=== PATIENT | male | born 1945 | race Caucasian/White ===

== ENCOUNTER → 2016-04-06 | Outpatient (CLI) | payer MEDICARE, OTHER ==
[~2016-04-06] MED LIST: AC500T; ALB0.5V IH; ALBU2.5V4 NEB; ALBU4TAB6 PO; ALBU8.5H2 IH; ALBU8.5H2 INH; ALEN40TA PO; AMLO1CAP4 PO; AMLO1CAP5 PO; ATOR20TA66 PO; CARV12.52; CHOL20002 PO; CLCX200C PO; DOXY100C2 PO; DULO20CA18 PO; FERR-57 PO; FERR324T4 PO; FLUOXETINE HCL; FLUT1AER INH; FNST5T PO; HCT25T; HYDR-2890 PO; HYDR-2962 PO; HYDR-753 PO; HYPR15DR6 OU; INHA1INH8 MC; LANOXIN; LEVO750T9 PO; METH2.5T PO; MILK OF MAG; MIRT15TA6 PO; MULT-974 PO; MULT1TAB5 PO; NEBU1KIT3 MC; NF-ESOM40C PO; OMEP20CA12 PO; OMEP40CA36 PO; OMNARIS NASAL; OXYC-12 PO; PARO20TA57 PO; PRD20T PO; PRED10TA22 PO; SILVADENE; SULF1TAB38 PO; TERA2CAP4 PO; TOLTA4 PO; TRAM50TA2 PO; TRAZODONE; TRZS2T PO; WRF3T; XANAX
--- OUTSIDE RECORDS SUMMARY | 2016-04-06 17:04 | XMS REPORT | Continuity of Care Document ---
Author Author [facility] Organization [facility] Address Unknown Phone Unavailable Care Team Providers Care Asl Interpreter Name Role Phone Lupe Manjit PCP [phone] Source Comments Some departments are not documenting in the electronic medical record. If you do not see the information that you expected, contact Release of Information in the Health Information Management department at [phone] for further assistance in locating additional records.[facility] Active Allergies and Adverse Reactions Allergen Noted Date Severity Reactions Comments Dust 11/16/2012 UNKNOWN Xanax 11/16/2012 HALLUCINATIONS Current Medications Prescription Sig. Disp. Refills Start End Date Status Date HYDROcodone-acetaminophen Take 1 Tab by mouth every Active (+) (VICODIN) 10-325 mg 6 hours as needed. tablet amLODIPine (NORVASC) 5 mg Take 5 mg by mouth daily. Active tablet benazepril (LOTENSIN) 20 Take 20 mg by mouth Active mg tablet daily. terazosin (HYTRIN) 2 mg Take 2 mg by mouth twice Active capsule daily. omeprazole DR(+) Take 40 mg by mouth twice Active (PRILOSEC) 40 mg capsule daily. alendronate (FOSAMAX) 70 Take 70 mg by mouth every Active mg tablet 7 days. MULTIVITAMIN PO Take 2 Tabs by mouth Active twice daily. other medication Eye drops, 2 drops to Active each eyes daily folic acid (FOLVITE) 1 mg Take 1 Tab by mouth 90 Tab 1 12/21/19 Active tablet daily. 13 methotrexate 2.5 mg Take 8 Tabs by mouth 32 Tab 5 02/22/20 Active tablet every 7 days. Take only 13 10mg (4 tabs) first week only, if tolerated increase to 15mg daily. Active Problems Problem Noted Date OA (osteoarthritis) 12/21/2012 Rheumatoid arthritis(714.0) 12/21/2012 Encounter for long-term (current) use of other medications 12/21/2012 Chronic fatigue 11/16/2012 Osteoporosis with fracture 11/16/2012 Overview: Compression fracture in back. Polyarthralgia 11/16/2012 Insomnia 11/16/2012 Hypertension 11/16/2012 Elbow pain 11/16/2012 Hx of seasonal allergies 11/16/2012 Cataract 11/16/2012 Hiatal hernia 11/16/2012 Muscle cramps at night 11/16/2012 Immunizations Name Dates Previously Given Next Due Flu Vaccine Trivalent=>3 02/21/2013 Yo (Preservative Free) Social History Tobacco Use Types Packs/Day Years Used Date Former Smoker Cigarettes 2 Quit: 04/03/1969 Smokeless Tobacco: Never Used Alcohol Use Drinks/Week oz/Week Comments Yes occ Last Filed Vital Signs Vital Sign Reading Time Taken Blood Pressure 115/76 04/04/2013 10:08 AM PAD EXTRACTION TENDER Pulse 104 04/04/2013 10:51 AM PAD EXTRACTION TENDER Temperature 36.6 C (97.8 F) 04/04/2013 10:08 AM PAD EXTRACTION TENDER Respiratory Rate 18 04/04/2013 10:08 AM PAD EXTRACTION TENDER Height 1.796 m (5' 10.7") 04/04/2013 10:08 AM PAD EXTRACTION TENDER Weight 98.068 kg (216 lb 3.2 oz) 04/04/2013 10:08 AM PAD EXTRACTION TENDER Body Mass Index 30.4 04/04/2013 10:08 AM PAD EXTRACTION TENDER Oxygen Saturation - - Plan of Care Health Maintenance Due Date Last Done Comments Physical (Comprehensive) 1952 Exam Pertussis Vaccine 1956 Tetanus Vaccine 1962 Colorectal Cancer 1995 Screening Shingles Vaccine 2005 Prevnar/Pneumovax (#1) 2010 Influenza Vaccine 12/03/2015 02/21/2013 Hepatitis C Screening Completed 11/16/2012 Results from Last 3 Months Not on file
[2016-04-06 17:28] LABS: BASOPHILS % (AUTO) 0 % (0-10); EOSINOPHILS # (AUTO) 0.2 10^3/uL (0.0-0.3); EOSINOPHILS % (AUTO) 2 % (0-10); LYMPHOCYTES # (AUTO) 2.5 X 10^3 (1.0-4.0); LYMPHOCYTES % (AUTO) 25 % (12-44); MEAN CORPUSCULAR HEMOGLOBIN 28 PG (25-34); MEAN CORPUSCULAR HGB CONC 33 G/DL (32-36); MEAN CORPUSCULAR VOLUME 86 FL (80-99); MEAN PLATELET VOLUME 9.4 FL (7.4-10.4); MONOCYTES % (AUTO) 10 % (0-12); NEUTROPHILS # (AUTO) 6.2 X 10^3 (1.8-7.8); NEUTROPHILS % (AUTO) 63 % (42-75); PLATELET COUNT 323 10^3/uL (130-400); RED BLOOD COUNT 4.47 10^6/uL (4.35-5.85); RED CELL DISTRIBUTION WIDTH 15.3 % (10.0-14.5); WHITE BLOOD COUNT 9.9 10^3/uL (4.3-11.0)
--- NOTE | 2016-04-06 17:58 | Diagnostic Imaging Report ---
INDICATION: Shortness of breath COMPARISON: 04/01/2016 FINDINGS: Two views of the chest are obtained. Heart size is normal. The pulmonary vessels appear unremarkable. There is no pneumothorax, mediastinal widening or pleural fluid suspected. There is a hiatal hernia which is similar to the prior study. There is some minimal atelectasis in the left lung base. The lungs are otherwise clear. The osseous structures appear unremarkable. IMPRESSION: Hiatal hernia with minimal left basilar atelectasis. No additional significant abnormality is demonstrated. Dictated by: Dictated on workstation # [id number]
== END ==
LOC: RAD 17:00
PROVIDERS: ATTEND Nurse Practitioner Family
DX: R05 Cough (principal); R06.02 Shortness of breath
CPT/HCPCS: 36415; 71020; 85025

== ENCOUNTER 2016-12-25 17:47 | Inpatient (IN) | payer MEDICARE, OTHER ==
[~2016-12-25] VITALS: Ht 185.4 cm; Wt 87.1 kg
--- OUTSIDE RECORDS SUMMARY | 2016-12-25 17:52 | XMS REPORT | Clinical Summary ---
Author Author [facility] Organization [facility] Address Unknown Phone Unavailable Care Team Providers Care Briar Shop Supervisor Name Role Phone PCP Unavailable Source Comments Some departments are not documenting in the electronic medical record. If you do not see the information that you expected, contact Release of Information in the Health Information Management department at [phone] for further assistance in locating additional records.[facility] Allergies Active Allergy Reactions Severity Noted Date Comments Dust UNKNOWN 11/16/2012 Alprazolam HALLUCINATIONS 11/16/2012 Current Medications Prescription Sig. Disp. Refills Start [...] by mouth 90 Tab 1 12/21/19 Active tabletIndications: daily. 13 Rheumatoid arthritis(714.0) methotrexate 2.5 mg Take 8 Tabs by mouth 32 Tab 5 02/22/20 Active tabletIndications: every 7 days. Take only 13 Rheumatoid 10mg (4 tabs) first week arthritis(714.0) only, if tolerated increase to 15mg daily. [...] Flu Vaccine Trivalent=>3 02/21/2013 Yo (Preservative Free) Family History Medical History Relation Name Comments Arthritis Brother Arthritis Father Arthritis Mother Arthritis Sister Arthritis Son Arthritis Son Relation Name Status Comments Brother Father Mother Sister Son Son Social History Tobacco Use Types Packs/Day Years Used Date Former Smoker Cigarettes 2 Quit: 04/03/1969 Smokeless Tobacco: Never Used Alcohol Use Drinks/Week oz/Week Comments Yes occ Sex Assigned at Date Recorded Not on file Last Filed Vital Signs Vital Sign Reading Time Taken Blood Pressure 115/76 04/04/2013 10:08 AM RADIOLOGY EQUIPMENT SERVICER Pulse 104 04/04/2013 10:51 AM RADIOLOGY EQUIPMENT SERVICER Temperature 36.6 C (97.8 F) 04/04/2013 10:08 AM RADIOLOGY EQUIPMENT SERVICER Respiratory Rate 18 04/04/2013 10:08 AM RADIOLOGY EQUIPMENT SERVICER Oxygen Saturation - - Inhaled Oxygen - - Concentration Weight 98.1 kg (216 lb 3.2 oz) 04/04/2013 10:08 AM RADIOLOGY EQUIPMENT SERVICER Height 179.6 cm (5' 10.7") 04/04/2013 10:08 AM RADIOLOGY EQUIPMENT SERVICER Body Mass Index 30.41 04/04/2013 10:08 AM RADIOLOGY EQUIPMENT SERVICER Plan of Treatment Health Maintenance Due Date Last Done Comments PHYSICAL (COMPREHENSIVE) 1952 EXAM PERTUSSIS VACCINE 1956 TETANUS VACCINE 1962 COLORECTAL CANCER 1995 SCREENING SHINGLES VACCINE 2005 ABDOMINAL AORTIC ANEURYSM 2010 SCREENING PREVNAR/PNEUMOVAX (#1) 2010 INFLUENZA VACCINE 01/01/2017 02/21/2013 HEPATITIS C SCREENING Completed 11/16/2012 Results Not on filefrom Last 3 Months
[2016-12-25] MEDS ORDERED: NS IV 1000 ML 1,000 ML IV ONE ×2 (18:19→20:57)
[2016-12-25 18:27] LABS: BASOPHILS # (AUTO) 0.1 10^3/uL (0.0-0.1); BASOPHILS % (AUTO) 0 % (0-10); EOSINOPHILS % (AUTO) 0 % (0-10); LYMPHOCYTES # (AUTO) 1.1 X 10^3 (1.0-4.0); LYMPHOCYTES % (AUTO) 8 % (12-44); MEAN CORPUSCULAR HEMOGLOBIN 28 PG (25-34); MEAN CORPUSCULAR HGB CONC 32 G/DL (32-36); MEAN CORPUSCULAR VOLUME 88 FL (80-99); MONOCYTES # (AUTO) 1.6 X 10^3 (0.0-1.0); MONOCYTES % (AUTO) 11 % (0-12); NEUTROPHILS # (AUTO) 11.4 X 10^3 (1.8-7.8); NEUTROPHILS % (AUTO) 80 % (42-75); PLATELET COUNT 268 10^3/uL (130-400); RED BLOOD COUNT 4.62 10^6/uL (4.35-5.85); RED CELL DISTRIBUTION WIDTH 14.9 % (10.0-14.5); WHITE BLOOD COUNT 14.2 10^3/uL (4.3-11.0)
--- NOTE | 2016-12-25 18:29 | ED GI ---
General Chief Complaint: Abdominal/GI Problems Stated Complaint: PASSING BLOOD Nursing Triage Note: LEFT SIDED ABD PAIN WITH NAUSEA AND PASSING BLOOD IN HIS STOOL SINCE MON. HX OF DIVERTICULITIS. Sepsis Screen: No Definite Risk Source of Information: Patient Exam Limitations: No Limitations History of Present Illness Time Seen By Provider: 18:09 Initial Comments Here with abdominal pain, nausea and passing blood in his stool since Monday. He does have history of diverticulitis. He is on Cefdinir and Flagyl. He is actually starting to get a little better but then started to get nauseated and is unable to take his medicines. He has continuation of abdominal pain. States he hasn't ate or drank very much since the start of this and he is a little concerns related to that. The bloody stool has decreased from bright red to very limited amount. He did have a little bit with his stool today right before coming. No blood in his vomit. Timing/Duration: 3-4 Days Severity/Quality: Moderate, Aching, Cramping Location: LUQ, LLQ, Generalized Abdomen Activities at Onset: None Modifying Factors: Worsens With Defecating, Worsens With Eating Associated Symptoms: No Chest Pain, No Fever/Chills, Nausea/Vomiting, No Shortness of Air, No Weakness Allergies and Home Medications Allergies Coded Allergies: diphenhydramine (Verified Allergy, Severe, 12/25/16) alprazolam (Verified Adverse Reaction, Intermediate, MENTAL MOOD CHANGE, 03/31/16) SIG OTHER SAID THE PATIENT GETS COMBATIVE,ANGRY AND VIOLENT. SHE STATES THAT HIS BEHAVIOR IS ODD AND UNLIKE HIM Home Medications Albuterol 8.5 Gm Hfa.aer.ad, 2 PUFF INH QID PRN for CONGESTION, (Reported) Albuterol Sulfate 2.5 Mg/3 Ml Vial.neb, 2.5 MG NEB Q4H PRN for SHORTNESS OF BREATH, #90 Prescribed by: ANTONIO BERNSTEIN on 04/01/16 1154 Alendronate Sodium 40 Mg Tablet, 70 MG PO We, (Reported) Amlodipine Besylate/Benazepril 1 Each Capsule, 1 CAP PO DAILY, (Reported) Atorvastatin 20 Mg Tablet, 10 MG PO HS, (Reported) TAKES 1/2 (20MG) TABLET Cholecalciferol (Vitamin D3) 2,000 Unit Capsule, 2,000 UNIT PO DAILY, (Reported) Duloxetine HCl 20 Mg Capsule.dr, 20 MG PO DAILY, (Reported) Fluticasone/Vilanterol 1 Each Blst.w.dev, 1 PUFF INH DAILY, (Reported) Hydrocodone/Acetaminophen 1 Each Tablet, 1 TAB PO Q4H PRN for PAIN, (Reported) Hypromellose 15 Ml Drops, 1 DROP OU QID PRN for DRY EYES, (Reported) Levofloxacin 750 Mg Tablet, 750 MG PO DAILY, #5 Prescribed by: ANTONIO BERNSTEIN on 04/01/16 1154 Methotrexate Sodium 2.5 Mg Tablet, 20 MG PO , (Reported) TAKES 8 (2.5MG) TABLETS Methotrexate Sodium 2.5 Mg Tablet, 20 MG PO WEEK, #32 Prescribed by: ANTONIO BERNSTEIN on 04/01/16 1154 Multivitamin 1 Each Tablet, 2 TAB PO DAILY, (Reported) Omeprazole 20 Mg Capsule.dr, 40 MG PO DAILY, (Reported) TAKES 2 (20MG) CAPSULES Prednisone 10 Mg Tab.ds.pk, 10 MG PO DAILY, #21 Take 6 tabs(60mg)daily,decrease by 1 tab(10MG)daily. Prescribed by: ANTONIO BERNSTEIN on 04/01/16 1154 Terazosin HCl 2 Mg Capsule, 4 MG PO DAILY, #60 TAKES 2 (2MG) CAPSULES Prescribed by: ANTONIO BERNSTEIN on 04/01/16 1154 Tramadol HCl 50 Mg Tablet, 50 MG PO TID PRN for PAIN, (Reported) Review of Systems Constitutional: see HPI, No chills, No fever EENTM: No Symptoms Reported Respiratory: No Symptoms Reported Cardiovascular: No Symptoms Reported Gastrointestinal: See HPI, Abdominal Pain, Diarrhea, Denies Nausea, Rectal Bleeding, Vomiting Genitourinary: No Symptoms Reported Musculoskeletal: no symptoms reported Skin: no symptoms reported All Other Systems Reviewed Negative Unless Noted: Yes Past Xbquwdm-Rxrecf-Hxnblx Hx Patient Social History Alcohol Use: Occasionally Uses Alcohol Beverage of Choice: Beer Recreational Drug Use: No Smoking Status: Never a Smoker Former Smoker, Quit: Apr 03, 1994 Recent Foreign Travel: No Contact w/Someone Who Travel: No Recent Infectious Disease Expo: No Recent Hopitalizations: No Immunizations Up To Date Date of Pneumonia Vaccine: Mar 31, 2014 Seasonal Allergies Seasonal Allergies: Yes Surgeries Surgeries: Abdominal, Bowel Surgery Respiratory History of Respiratory Disorde: Yes Respiratory Disorders: Asthma, COPD Currently Using CPAP: No Currently Using BIPAP: No Cardiovascular History of Cardiac Disorders: Yes Cardiac Disorders: High Cholesterol, Hypertension Reproductive System Hx Reproductive Disorders: No Sexually Transmitted Disease: No HIV/AIDS: No Genitourinary History of Genitourinary Disor: Yes Genitourinary Disorders: Benign Prostatic Hyperpl Gastrointestinal History of Gastrointestinal Di: Yes Gastrointestinal Disorders: Gastroesophageal Reflux Musculoskeletal History of Musculoskeletal Dis: Yes Musculoskeletal Disorders: Arthritis, Rheumatoid Arthritis Endocrine History of Endocrine Disorders: No HEENT History of HEENT Disorders: Yes HEENT Disorders: Cataract Hearing Impairment: Denies Psychosocial Behavioral Health Disorders: Anxiety, PTSD, Depression Reviewed Nursing Assessment Reviewed/Agree w Nursing PMH: Yes Family Medical History Significant Family History: No Pertinent Family Hx Physical Exam Vital Signs VS - Last 72 Hours, by Label 12/25/16 17:55 Temp 98.7 Pulse 103 Resp 18 B/P (MAP) 107/77 Pulse Ox 93 O2 Delivery Room Air Capillary Refill : Less Than 3 Seconds General Appearance: WD/WN, no apparent distress HEENT: PERRL/EOMI, pharynx normal Neck: full range of motion, supple Respiratory: lungs clear, normal breath sounds Cardiovascular: no murmur, tachycardia Peripheral Pulses: 2+ Dorsalis Pedis (R), 2+ Left Dors-Pedis (L), 2+ Radial Pulses (R), 2+ Radial Pulses (L) Gastrointestinal: non tender, soft Extremities: non-tender, normal inspection Back: normal inspection, no CVA tenderness, no vertebral tenderness Neurologic/Psychiatric: alert, oriented x 3 Skin: normal color, warm/dry Progress/Results/Core Measures Results/Orders Lab Results Laboratory Tests Test 12/25/16 18:10 Range/Units White Blood Count 14.2 H 4.3-11.0 10^3/uL Red Blood Count 4.62 4.35-5.85 10^6/uL Hemoglobin 13.0 L 13.3-17.7 G/DL Hematocrit 41 40-54 % Mean Corpuscular Volume 88 80-99 FL Mean Corpuscular Hemoglobin 28 25-34 PG Mean Corpuscular Hemoglobin Concent 32 32-36 G/DL Red Cell Distribution Width 14.9 H 10.0-14.5 % Platelet Count 268 130-400 10^3/uL Mean Platelet Volume 10.0 7.4-10.4 FL Neutrophils (%) (Auto) 80 H 42-75 % Lymphocytes (%) (Auto) 8 L 12-44 % Monocytes (%) (Auto) 11 0-12 % Eosinophils (%) (Auto) 0 0-10 % Basophils (%) (Auto) 0 0-10 % Neutrophils # (Auto) 11.4 H 1.8-7.8 X 10^3 Lymphocytes # (Auto) 1.1 1.0-4.0 X 10^3 Monocytes # (Auto) 1.6 H 0.0-1.0 X 10^3 Eosinophils # (Auto) 0.0 0.0-0.3 10^3/uL Basophils # (Auto) 0.1 0.0-0.1 10^3/uL Neutrophils % (Manual) 65 % Lymphocytes % (Manual) 10 % Monocytes % (Manual) 14 % Eosinophils % (Manual) 0 % Basophils % (Manual) 1 % Band Neutrophils 10 % Blood Morphology Comment NORMAL Sodium Level 137 135-145 MMOL/L Potassium Level 4.1 3.6-5.0 MMOL/L Chloride Level 103 98-107 MMOL/L Carbon Dioxide Level 21 21-32 MMOL/L Anion Gap 13 5-14 MMOL/L Blood Urea Nitrogen 25 H 7-18 MG/DL Creatinine 0.92 0.60-1.30 MG/DL Estimat Glomerular Filtration Rate > 60 BUN/Creatinine Ratio 27 Glucose Level 116 H 70-105 MG/DL Calcium Level 8.8 8.5-10.1 MG/DL Total Bilirubin 0.5 0.1-1.0 MG/DL Aspartate Amino Transf (AST/SGOT) 18 5-34 U/L Alanine Aminotransferase (ALT/SGPT) 18 0-55 U/L Alkaline Phosphatase 67 40-136 U/L C-Reactive Protein High Sensitivity 15.44 H 0.00-0.50 MG/DL Total Protein 6.7 6.4-8.2 GM/DL Albumin 3.6 3.2-4.5 GM/DL My Orders Orders - NITESH ROBERTS MD Cbc With Automated Diff (12/25/16 18:19) Comprehensive Metabolic Panel (12/25/16 18:19) Hs C Reactive Protein (12/25/16 18:19) Ua Culture If Indicated (12/25/16 18:19) Saline Lock/Iv-Start (12/25/16 18:19) Ns Iv 1000 Ml (Sodium Chloride 0.9%) (12/25/16 18:19) Type And Screen (12/25/16 18:19) Manual Differential (12/25/16 18:10) Ct Abdomen/Pelvis W (12/25/16 19:26) Iohexol Injection (Omnipaque 350 Mg/Ml 1 (12/25/16 19:30) Ns (Ivpb) (Sodium Chloride 0.9% Ivpb Bag (12/25/16 19:30) Pharmacy Communication (Pharmacy Communi (12/25/16 19:28) Lactic Acid Analyzer (12/25/16 20:57) Blood Culture (12/25/16 20:57) Ns Iv 1000 Ml (Sodium Chloride 0.9%) (12/25/16 20:57) Ceftriaxone Injection (Rocephin Injectio (12/25/16 21:00) Magnesium (12/25/16 21:01) Medications Given in ED Current Medications Medications Dose Ordered Sig/Jennifer Route Start Time Stop Time Status Last Admin Dose Admin Iohexol 100 ml ONCE ONCE IV 12/25/16 19:30 12/25/16 19:37 DC 12/25/16 20:22 100 ML Sodium Chloride 100 ml ONCE ONCE IV 12/25/16 19:30 12/25/16 19:37 DC 12/25/16 20:22 80 ML Sodium Chloride 1,000 ml @ 0 mls/hr Q0M ONCE IV 12/25/16 18:19 12/25/16 18:22 DC 12/25/16 18:29 1,000 MLS/HR Vital Signs/I&O Vital Sign - Last 12Hours 12/25/16 17:55 Temp 98.7 Pulse 103 Resp 18 B/P (MAP) 107/77 Pulse Ox 93 O2 Delivery Room Air Intake and Output 12/26/16 00:00 Intake Total 1000 ml Balance 1000 ml Blood Pressure Mean: 87 Progress Note : Progress Note Seen and evaluated. IV, labs, normal saline 1 L bolus ordered. Anticipate CT. Monitor patient. White count is elevated with elevated CRP. Concerns for more significant process. CT abdomen and pelvis with contrast ordered. 2039: CT results noted. Repeat normal saline 1 L bolus. It would appear that the patient is failing outpatient therapy and inpatient therapy indicated. 2049: Discussed case with Dr. Vincent and she accepts patient for admission, inpatient status. 2052: Discussed case with Dr. Anthony and he accepts patient in consult. Blood cultures and lactic acid drawn. Rocephin 1 g IV after. Discussed findings and concerns with the patient and family who agree with plan. Diagnostic Imaging Diagonstic Imaging: CT Plain Films/CT/US/NM/MRI: abdomen, pelvis Comments VIA [facility]. [place], [place] NAME: SOLITARIO CHEW [facility] REC#: [id number] PT STATUS: REG ER : 1945 PHYSICIAN: NITESH ROBERTS MD ADMIT DATE: 12/25/16/ER Draft Date of Exam:12/25/16 CT ABDOMEN/PELVIS W PROCEDURE: CT abdomen and pelvis with contrast. TECHNIQUE: Multiple contiguous axial images were obtained through the abdomen and pelvis after administration of intravenous contrast. DATE: December 25, 2016. COMPARISON: Abdominal radiographs November 18, 2011. CT abdomen and pelvis, May 18, 2010. INDICATION: 71-year-old male, diarrhea. Passing blood for three days. FINDINGS: There is minimal atelectasis in the left lower lobe. The heart is not enlarged. There is no identified pericardial effusion. The liver is normal in size and contour. There is reduced attenuation in the liver subadjacent to the gallbladder fossa on axial image 23. This area measures approximately 5.1 x 1.9 cm in size. There is no otherwise identified potential liver lesion. The main, right and left portal veins are grossly patent. The gallbladder is unremarkable. There is no intrahepatic or extrahepatic bile duct dilation. There is mild prominence of the main pancreatic duct in the region of the pancreatic head and body of the pancreas. There is no peripancreatic fluid or inflammatory stranding. There is no identified pancreatic mass. The spleen is not enlarged. There is an accessory splenule on axial image 19. The adrenal glands are unremarkable. There is a low-attenuation right renal lesion on axial image 26 compatible with benign cysts which measures 2.9 cm in size. There are subcentimeter low-attenuation right renal lesions too small to characterize. The urinary collecting systems are not distended. There is no identified renal or ureteral stone. The urinary bladder is unremarkable in appearance. There are sutures at the level of the proximal to mid sigmoid colon. There is marked abnormal wall thickening of the entire colon. There is abnormal wall thickening and mucosal enhancement of the terminal ileum. There is diverticulosis at the level of the proximal sigmoid colon. There is very prominent inflammatory stranding along the entire colon. There is a small to moderate-sized hiatal hernia. The intestinal tract is not grossly distended. There is rectus muscle diastases. There is no identified free intraperitoneal air. There is no drainable fluid collection. There is no large volume free pelvic fluid. There are atherosclerotic calcifications. There is no identified abnormally enlarged lymph node in the abdomen or pelvis which meets CT size criteria for adenopathy. There are multilevel degenerative changes of the spine. There is a lumbar levoscoliosis. There is no identified acute bony abnormality. IMPRESSION: CT ABDOMEN AND PELVIS: 1. Extensive abnormal wall thickening and inflammatory stranding along the entire colon. No identified pneumatosis, free intraperitoneal air or drainable fluid collection. Differential diagnostic considerations would primarily include an infectious or potentially inflammatory colitis. 2. Area of low attenuation subjacent to the gallbladder fossa within the liver which is not specific. This potentially could relate to an area of focal fat. This is not definitely seen on comparison CT abdomen. MRI abdomen with and without contrast including in and out of phase images may be helpful for further characterization. Dictated on workstation # [id number] Dict: 12/25/162018 Trans: 12/25/162030 [facility] [id number] Interpreted by: DARREN NOBLE MD Electronically signed by: Departure Communication (Admissions) Time/Spoke to Admitting Phy: 20:50 Time/Spoke to Consulting Phy: 20:53 Impression Impression: Primary Impression: Colitis Additional Impression: Diverticulitis Qualified Codes: K57.33 - Diverticulitis of large intestine without perforation or abscess with bleeding Disposition: ADMITTED INPATIENT Condition: Stable Admissions Decision to Admit Reason: Admit from ER (General) Decision to Admit/Date: Dec 25, 2016 Time/Decision to Admit Time: 20:50 Departure-Patient Inst. Referrals: LINDA CRAWFORD MD (PCP/Family) Primary Care Physician NITESH ROBERTS MD Dec 25, 2016 18:28
[2016-12-25 18:42] LABS: BAND NEUTROPHILS 10 %; BASOPHILS % (MANUAL) 1 %; EOSINOPHILS % (MANUAL) 0 %; LYMPHOCYTES % (MANUAL) 10 %; NEUTROPHILS % (MANUAL) 65 %
[2016-12-25 18:43] LABS: ALANINE AMINOTRANSFERASE 18 U/L (0-55); ALBUMIN 3.6 GM/DL (3.2-4.5); ANION GAP 13 MMOL/L (5-14); ASPARTATE AMINO TRANSFERASE 18 U/L (5-34); BILIRUBIN,TOTAL 0.5 MG/DL (0.1-1.0); BLOOD UREA NITROGEN 25 MG/DL (7-18); BUN/CREATININE RATIO 27; CALCIUM 8.8 MG/DL (8.5-10.1); CARBON DIOXIDE 21 MMOL/L (21-32); CHLORIDE 103 MMOL/L (98-107); CREATININE SERUM 0.92 MG/DL (0.60-1.30); GFR ESTIMATED > 60; GLUCOSE 116 MG/DL (70-105); POTASSIUM 4.1 MMOL/L (3.6-5.0); SODIUM 137 MMOL/L (135-145); TOTAL PROTEIN 6.7 GM/DL (6.4-8.2); hs C REACTIVE PROTEIN 15.44 MG/DL (0.00-0.50)
[2016-12-25] MEDS ORDERED: NS 100 ML (IVPB) BAG IV ONE (19:30)
[2016-12-25] MEDS ORDERED: IOHEXOL 350 MG/ML 100 ML (OMNIPAQUE 350) VIAL IV ONE (19:30)
--- NOTE | 2016-12-25 20:31 | Diagnostic Imaging Report ---
PROCEDURE: CT abdomen and pelvis with contrast. TECHNIQUE: Multiple contiguous axial images were obtained through the abdomen and pelvis after administration of intravenous contrast. DATE: December 25, 2016. COMPARISON: Abdominal radiographs November 18, 2011. CT abdomen and pelvis, May 18, 2010. INDICATION: 71-year-old male, diarrhea. Passing blood for three days. FINDINGS: There is minimal atelectasis in the left lower lobe. The heart is not enlarged. There is no identified pericardial effusion. The liver is normal in size and contour. There is reduced attenuation in the liver subadjacent to the gallbladder fossa on axial image 23. This area measures approximately 5.1 x 1.9 cm in size. There is no otherwise identified potential liver lesion. The main, right and left portal veins are grossly patent. The gallbladder is unremarkable. There is no intrahepatic or extrahepatic bile duct dilation. There is mild prominence of the main pancreatic duct in the region of the pancreatic head and body of the pancreas. There is no peripancreatic fluid or inflammatory stranding. There is no identified pancreatic mass. The spleen is not enlarged. There is an accessory splenule on axial image 19. The adrenal glands are unremarkable. There is a low-attenuation right renal lesion on axial image 26 compatible with benign cysts which measures 2.9 cm in size. There are subcentimeter low-attenuation right renal lesions too small to characterize. The urinary collecting systems are not distended. There is no identified renal or ureteral stone. The urinary bladder is unremarkable in appearance. There are sutures at the level of the proximal to mid sigmoid colon. There is marked abnormal wall thickening of the entire colon. There is abnormal wall thickening and mucosal enhancement of the terminal ileum. There is diverticulosis at the level of the proximal sigmoid colon. There is very prominent inflammatory stranding along the entire colon. There is a small to moderate-sized hiatal hernia. The intestinal tract is not grossly distended. There is rectus muscle diastases. There is no identified free intraperitoneal air. There is no drainable fluid collection. There is no large volume free pelvic fluid. There are atherosclerotic calcifications. There is no identified abnormally enlarged lymph node in the abdomen or pelvis which meets CT size criteria for adenopathy. There are multilevel degenerative changes of the spine. There is a lumbar levoscoliosis. There is no identified acute bony abnormality. IMPRESSION: CT ABDOMEN AND PELVIS: 1. Extensive abnormal wall thickening and inflammatory stranding along the entire colon. No identified pneumatosis, free intraperitoneal air or drainable fluid collection. Differential diagnostic considerations would primarily include an infectious or potentially inflammatory colitis. 2. Area of low attenuation subjacent to the gallbladder fossa within the liver which is not specific. This potentially could relate to an area of focal fat. This is not definitely seen on comparison CT abdomen. MRI abdomen with and without contrast including in and out of phase images may be helpful for further characterization. Dictated by: Dictated on workstation # [id number]
[2016-12-25] MEDS ORDERED: cefTRIAXone INJECTION 1,000 MG in NS (IVPB) 50 ML IV ONE (21:00)
--- OUTSIDE RECORDS SUMMARY | 2016-12-25 21:14 | XMS REPORT | Clinical Summary ---
Author Author [facility] Organization [facility] Address Unknown Phone Unavailable Care Team Providers Care Jewelry Estimator Name Role Phone PCP Unavailable Source Comments Some departments are not documenting in the electronic medical record. If you do not see the information that you expected, contact Release of Information in the Health Information Management department at [phone] for further assistance in locating additional records.[facility] Allergies Active Allergy Reactions Severity Noted [...] Taken Blood Pressure 115/76 04/04/2013 10:08 AM CORDUROY CUTTER OPERATOR Pulse 104 04/04/2013 10:51 AM CORDUROY CUTTER OPERATOR Temperature 36.6 C (97.8 F) 04/04/2013 10:08 AM CORDUROY CUTTER OPERATOR Respiratory Rate 18 04/04/2013 10:08 AM CORDUROY CUTTER OPERATOR Oxygen Saturation - - Inhaled Oxygen - - Concentration Weight 98.1 kg (216 lb 3.2 oz) 04/04/2013 10:08 AM CORDUROY CUTTER OPERATOR Height 179.6 cm (5' 10.7") 04/04/2013 10:08 AM CORDUROY CUTTER OPERATOR Body Mass Index 30.41 04/04/2013 10:08 AM CORDUROY CUTTER OPERATOR Plan of Treatment Health Maintenance Due Date Last Done Comments PHYSICAL (COMPREHENSIVE) 1952 EXAM PERTUSSIS VACCINE 1956 TETANUS VACCINE 1962 COLORECTAL CANCER 1995 SCREENING SHINGLES VACCINE 2005 ABDOMINAL AORTIC ANEURYSM 2010 SCREENING PREVNAR/PNEUMOVAX (#1) 2010 INFLUENZA VACCINE 01/01/2017 02/21/2013 HEPATITIS C SCREENING Completed 11/16/2012 Results Not on filefrom Last 3 Months
[2016-12-25] MEDS ORDERED: ONDANSETRON 4 MG/2 ML (SDV) Z0FRAN IV PRN (22:00)
[2016-12-25] MEDS: NS IV 1000 ML 1,000 ML IV SCH (22:03)
[2016-12-25] MEDS: metroNIDAZOLE 500 MG/100 ML IVPB (PRE-MIX) IV SCH (22:03)
[2016-12-25] MEDS ORDERED: RT-ALBUTEROL SULF 2.5 MG/3 ML PRE-MIX VIAL IH PRN (23:00)
[2016-12-26 00:34] VITALS: BP 122/57
[2016-12-26 04:43] VITALS: BP 126/64
[2016-12-26] MEDS: NS IV 1000 ML 1,000 ML IV SCH ×3 (05:21→21:30)
[2016-12-26] MEDS: metroNIDAZOLE 500 MG/100 ML IVPB (PRE-MIX) IV SCH ×3 (05:21→21:30)
[2016-12-26] MEDS ORDERED: HYDROcodone/APAP 10 MG/325 MG (LORTAB) TAB PO ONE (05:34)
[2016-12-26] MEDS: HYDROcodone/APAP 10 MG/325 MG (LORTAB) TAB PO PRN ×4 (05:43→20:42)
[2016-12-26] MEDS: RT-ALBUTEROL SULF 2.5 MG/3 ML PRE-MIX VIAL IH SCH ×2 (07:37→18:57)
[2016-12-26 08:34] VITALS: BP 117/72
[2016-12-26 12:00] VITALS: BP 144/83
--- NOTE | 2016-12-26 15:00 | History & Physical-Hospitalist ---
HPI History of Present Illness: HPI/Chief Complaint The patient is a 71-year-old white male known to me over a number of years. He presented to the emergency room yesterday with the complaints of left lower quadrant pain and blood in his stools. He has a past history of diverticulitis and had a segmental colectomy done several years ago for diverticular problems. He reports that he is been eating a considerable amount of popcorn lately. CT scan performed in the emergency room showed evidence of diverticulitis and possible coli this. He reported that he had been started on oral antibiotics by his provider and had improved until he became unable to swallow the pills. This was as a result of severe nausea. He also reported that his intake of food and fluids had been markedly diminished. He had begun to have blood in the stools about Monday of last week. At first this was what he thought to be considerable but it had dwindled down to a minimum prior to admission. Source: patient Exam Limitations: no limitations Date Seen 12/26/16 Time Seen by Provider: 14:58 Attending Physician Corrie Vincent MD PCP aMnjit Andrade MD Referring Physician Date of Admission Dec 25, 2016 at 21:00 Home Medications & Allergies Home Medications Reviewed patient Home Medication Reconciliation Form Allergies Allergies Coded Allergies diphenhydramine (Verified Allergy, Severe, 12/25/16) alprazolam (Verified Adverse Reaction, Intermediate, MENTAL MOOD CHANGE, 03/31) SIG OTHER SAID THE PATIENT GETS COMBATIVE,ANGRY AND VIOLENT. SHE STATES THAT HIS BEHAVIOR IS ODD AND UNLIKE HIM Past Dgthjsq-Aisqgf-Anooth Hx Patient Social History Alcohol Use: Occasionally Uses Number of Drinks Today: AA Alcohol Beverage of Choice: Beer Recreational Drug Use: No Smoking Status: Former Smoker Former Smoker, Quit: Apr 03, 1994 Physical Abuse Screen: No Sexual Abuse: No Recent Foreign Travel: No Contact w/other who traveled: No Recent Hopitalizations: No Recent Infectious Disease Expo: No Immunizations Up To Date Date of Pneumonia Vaccine: Mar 31, 2014 Seasonal Allergies Seasonal Allergies: Yes Surgeries Yes (LIPOMAS, HIATAL HERNIA REPAIR, COLON RESECTION) Abdominal, Bowel Surgery Respiratory Yes COPD Currently Using CPAP: No Currently Using BIPAP: No Cardiovascular Yes High Cholesterol, Hypertension Neurological No Reproductive System Hx Reproductive Disorders: No Sexually Transmitted Disease: No HIV/AIDS: No Genitourinary Yes Benign Prostatic Hyperpl Gastrointestinal Yes Gastroesophageal Reflux Musculoskeletal Yes Arthritis, Rheumatoid Arthritis Endocrine History of Endocrine Disorders: No HEENT History of HEENT Disorders: Yes HEENT Disorders: Cataract Hearing Impairment: Denies Cancer No Psychosocial History of Psychiatric Problem: Yes Behavioral Health Disorders: Anxiety, PTSD, Depression Integumentary History of Skin or Integumenta: No Blood Transfusions History of Blood Disorders: No Reviewed Nursing Assessment Reviewed/Agree w Nursing PMH: Yes Family Medical History Significant Family History: No Pertinent Family Hx Review of Systems Constitutional: see HPI EENTM: no symptoms reported Respiratory: no symptoms reported Cardiovascular: no symptoms reported Gastrointestinal: see HPI, abdominal pain (LLQ), other (hematochezia) Genitourinary: no symptoms reported Skin: no symptoms reported Psychiatric/Neurological: No Symptoms Reported Physical Exam Physical Exam Vital Signs Vital Sign - Last 12Hours 12/25/16 17:55 Temp 98.7 Pulse 103 Resp 18 B/P (MAP) 107/77 Pulse Ox 93 O2 Delivery Room Air Capillary Refill : Less Than 3 Seconds General Appearance: Mild Distress Eyes: Bilateral Eye Normal Inspection HEENT: Normal ENT Inspection Neck: Normal Inspection Respiratory: Chest Non Tender Cardiovascular: Regular Rate, Rhythm, No Edema, No Gallop, No JVD, No Murmur, Normal Peripheral Pulses Gastrointestinal: Abnormal Bowel Sounds (decreased), Tenderness (left lower quadrant) Back: Normal Inspection Extremity: Normal Capillary Refill Skin: Normal Color, Warm/Dry Lymphatic: No Adenopathy Results Results/Procedures Lab Laboratory Tests 12/25/16 18:10 Assessment/Plan Admission Diagnosis Sigmoid diverticulitis. 2.hematochezia secondary to number 1. 3.rheumatoid arthritis by history and medication. 4.COPD Assessment and Plan IV fluids and antibiotic. Advance diet as symptoms allow. Clinical Quality Measures DVT/VTE Risk/Contraindication: Risk Factor Score Per Nursin RFS Level Per Nursing on Admit: 3=High SRINATH KESSLER MD Dec 26, 2016 15:00
[2016-12-26 15:35] VITALS: BP 137/81
[2016-12-26] MEDS ORDERED: OMEP20CA12 PO (16:30)
[2016-12-26] MEDS ORDERED: METH2.5T PO ×2 (16:30→16:48)
[2016-12-26] MEDS ORDERED: ATOR20TA66 PO (16:48)
[2016-12-26] MEDS ORDERED: RT-ALBUINH IH (16:48)
[2016-12-26] MEDS ORDERED: ALEN70TA2 PO (16:48)
[2016-12-26] MEDS ORDERED: CARB10DR2 OU (17:26)
[2016-12-26] MEDS ORDERED: MINE3.5O2 OU (17:26)
[2016-12-26] MEDS ORDERED: TERA2CAP4 PO (17:26)
[2016-12-26] MEDS ORDERED: BUDE10.2 IH (18:09)
[2016-12-26] MEDS ORDERED: ALBU2.5V4 IH (18:10)
[2016-12-26 19:05] VITALS: BP 110/64
[2016-12-26] MEDS: cefTRIAXone INJECTION 1,000 MG in NS (IVPB) 50 ML IV SCH (20:39)
[2016-12-27 00:40] VITALS: BP 125/76
--- NOTE | 2016-12-27 06:04 | CONSULTATION REPORT ---
DATE OF SERVICE: 12/26/2016 PRIMARY CARE PHYSICIAN: Dr. Partha Andrade. HISTORY OF PRESENT ILLNESS: The patient is a 71-year-old male who complained of pain in the left lateral abdomen as well as blood in his stools. He has a history of diverticulosis and diverticulitis requiring a sigmoidal colectomy several years ago. He states that when he does eat the wrong foods including popcorn he does normally have flareups including pain as well as blood in his stools. He states that the day before his symptoms began he did have what he states is a significant amount of popcorn. A CT scan was performed which showed inflammation of the colon as well as diverticula consistent with a diverticulitis. Since being admitted and placed on IV antibiotics, he states that he has felt significantly better. He states that his bowel movements have normalized and his pain is significantly decreased. PAST MEDICAL HISTORY: Diverticulosis and diverticulitis, gastroesophageal reflux disease, hypertension, hypercholesterolemia, rheumatoid arthritis, anxiety, PTSD, depression. PAST SURGICAL HISTORY: Sigmoid colon resection, hiatal hernia repair. ALLERGIES: DIPHENHYDRAMINE, ALPRAZOLAM. MEDICATIONS: Albuterol metered dose inhaler 2 puffs b.i.d., albuterol breathing treatments q.4 hours p.r.n., alendronate 40 mg weekly, amlodipine 10 mg daily, atorvastatin 20 mg daily, Duloxetine 20 mg daily, fluticasone spray daily, hydrocodone p.r.n., omeprazole 20 mg daily, terazosin 2 mg daily, tramadol p.r.n. SOCIAL HISTORY: He does drink beer on occasion. Previous smoker, quit 1994. FAMILY HISTORY: Noncontributory. VITAL SIGNS: Temperature 98.6, blood pressure 144/83, pulse 72, respirations 20, pulse ox 94% on room air. REVIEW OF SYSTEMS: Well-nourished male currently in no acute distress. He is not experiencing shortness of breath or difficulty breathing. No chest pain, palpitations, diaphoresis. No cough or sputum production. No nausea, vomiting with mild intermittent pain in the left lateral abdomen. Previous rectal bleeding. None since admission. No fever, chills. No recent inadvertent weight loss. PHYSICAL EXAMINATION: CHEST: Distant breath sounds bilaterally, scattered rhonchi. HEART: Regular, no murmurs. EXTREMITIES: No lower extremity edema, negative Homans sign. HEENT: No scleral icterus. NECK: No cervical lymphadenopathy. ABDOMEN: Soft and nondistended. There is mild discomfort along the left lateral abdomen upon deep palpation. There are no peritoneal signs. SKIN: Warm, dry. LABORATORY DATA: WBC 14.2, hemoglobin 13.0, hematocrit 41, platelets 268. ASSESSMENT AND PLAN: A 71-year-old male with colitis, most likely secondary to diverticular irritation, infection and inflammation. Since being admitted and placed on IV fluids as well as IV antibiotics he has felt significantly better. He states that he has had previous symptomatic and severe diverticulosis and diverticulitis requiring previous colonic resection. We will continue with conservative management for now and advance his diet to dysphagia 3 diet and continue with a low residue diet for six weeks. We may recommend a followup colonoscopy in approximately 6 weeks to rule out the potential for an inflammatory bowel disease as well as a neoplasm. Job ID: [id number] DocumentID: [id number] Dictated Date: 12/26/2016 16:26:36 Care Management Specialist Date: 12/27/2016 06:03:05 Dictated By: ROMAIN LOFTON MD
[2016-12-27] MEDS: metroNIDAZOLE 500 MG/100 ML IVPB (PRE-MIX) IV SCH ×3 (06:07→22:19)
[2016-12-27] MEDS: NS IV 1000 ML 1,000 ML IV SCH ×3 (06:07→18:45)
[2016-12-27] MEDS: RT-ALBUTEROL SULF 2.5 MG/3 ML PRE-MIX VIAL IH SCH ×2 (07:46→19:17)
[2016-12-27 08:31] VITALS: BP 137/81
--- NOTE | 2016-12-27 11:16 | Progress Note-Hospitalist ---
Standard Progress Note Progress Notes/Assess & Plan Date Seen 12/27/16 Time Seen by Provider: 11:13 Diagnosis Sigmoid diverticulitis. 2.hematochezia secondary to number 1. 3.rheumatoid arthritis by history and medication. 4.COPD Assess & Plan/Chief Complaint The patient reports he is feeling much better today. He is afebrile. He has passed stool and gas today. Physical exam: The patient is alert and oriented. Lungs are clear to auscultation. CV is regular without murmur. Abdomen is soft without distention. Bowel sounds are present. There is no tenderness to palpation in the left lower quadrant as there had been yesterday. Impression: Diverticulitis improving. Plan: Advance diet. Activity up ad tony. If symptoms stable he will be discharged on oral antibiotics tomorrow. Labs Laboratory Tests 12/25/16 18:10 SRINATH KESSLER MD Dec 27, 2016 11:16
[2016-12-27 11:43] LABS: BASOPHILS # (AUTO) 0.1 10^3/uL (0.0-0.1); BASOPHILS % (AUTO) 1 % (0-10); EOSINOPHILS # (AUTO) 0.3 10^3/uL (0.0-0.3); EOSINOPHILS % (AUTO) 3 % (0-10); LYMPHOCYTES # (AUTO) 1.3 X 10^3 (1.0-4.0); LYMPHOCYTES % (AUTO) 13 % (12-44); MEAN CORPUSCULAR HEMOGLOBIN 29 PG (25-34); MEAN CORPUSCULAR HGB CONC 32 G/DL (32-36); MEAN CORPUSCULAR VOLUME 88 FL (80-99); MEAN PLATELET VOLUME 9.3 FL (7.4-10.4); MONOCYTES # (AUTO) 1.2 X 10^3 (0.0-1.0); MONOCYTES % (AUTO) 12 % (0-12); NEUTROPHILS # (AUTO) 7.1 X 10^3 (1.8-7.8); NEUTROPHILS % (AUTO) 71 % (42-75); PLATELET COUNT 259 10^3/uL (130-400); RED BLOOD COUNT 3.75 10^6/uL (4.35-5.85); RED CELL DISTRIBUTION WIDTH 14.7 % (10.0-14.5)
--- NOTE | 2016-12-27 11:53 | Progress Note (SOAP) ---
Subjective Date Seen by Provider: Dec 27, 2016 Time Seen by Provider: 11:40 Subjective/Events-last exam Patient seen with Dr. Anthony. Patient reports doing well today. denies any N/V, abdominal pain, fever/chills. Having BMs and tolerating diet. ambulating. Review of Systems General: No Chills, No Night Sweats Gastrointestinal: No: Nausea, Vomiting, Abdominal Pain Objective Exam Vital Signs Date Time Temp Pulse Resp B/P (MAP) Pulse Ox O2 Delivery O2 Flow Rate FiO2 12/27/16 08:31 98.5 63 20 137/81 98 Room Air 12/27/16 07:46 97 Room Air 12/27/16 00:40 98.3 66 18 125/76 95 Room Air 12/26/16 19:05 98.1 69 20 110/64 96 Room Air 12/26/16 18:59 94 Room Air 12/26/16 15:35 99.1 65 20 137/81 96 Room Air 12/26/16 12:00 98.6 72 20 144/83 94 Room Air I & O 12/28/16 07:00 Intake Total 1000 ml Balance 1000 ml Capillary Refill : Less Than 3 Seconds General Appearance: No Apparent Distress, WD/WN HEENT: PERRL/EOMI, TMs Normal, Normal ENT Inspection, Pharynx Normal Neck: Full Range of Motion, Normal Inspection, Non Tender, Supple Respiratory: Lungs Clear, Normal Breath Sounds, No Accessory Muscle Use, No Respiratory Distress Cardiovascular: Regular Rate, Rhythm, No Edema Gastrointestinal: normal bowel sounds, soft, tenderness (LLQ and upper abdomen) Extremity: Normal Capillary Refill, Normal Inspection, Normal Range of Motion, Non Tender, No Calf Tenderness, No Pedal Edema Neurologic/Psychiatric: Alert, Oriented x3 Skin: Normal Color, Warm/Dry Results Lab Laboratory Tests 12/27/16 11:35: White Blood Count 10.0, Red Blood Count 3.75L, Hemoglobin 10.7L, Hematocrit 33L , Mean Corpuscular Volume 88, Mean Corpuscular Hemoglobin 29, Mean Corpuscular Hemoglobin Concent 32, Red Cell Distribution Width 14.7H, Platelet Count 259, Mean Platelet Volume 9.3, Neutrophils (%) (Auto) 71, Lymphocytes (%) (Auto) 13, Monocytes (%) (Auto) 12, Eosinophils (%) (Auto) 3, Basophils (%) (Auto) 1, Neutrophils # (Auto) 7.1, Lymphocytes # (Auto) 1.3, Monocytes # (Auto) 1.2H, Eosinophils # (Auto) 0.3, Basophils # (Auto) 0.1 Microbiology 12/25/16 Blood Culture - Preliminary, Resulted No growth 12/25/16 Cryptosporidium/Giardia - Final, Complete Assessment/Plan Assessment/Plan Assess & Plan/Chief Complaint A 71-year-old male with colitis, most likely secondary to diverticular irritation, infection and inflammation. VSS. IV fluids and IV abx. Pain and Nausea meds prn Tolerating diet and having BMs. May DC home with abx and low-residue diet for 6 weeks. Will need follow-up colonoscopy as Outpatient after 6 weeks. Clinical Quality Measures DVT/VTE Risk/Contraindication: Risk Factor Score Per Nursin RFS Level Per Nursing on Admit: 3=High MIGUEL VELASQUEZ APRN Dec 27, 2016 11:53
[2016-12-27] MEDS: HYDROcodone/APAP 10 MG/325 MG (LORTAB) TAB PO PRN ×2 (12:49→17:23)
[2016-12-27] MEDS ORDERED: FOLI1TAB24 PO (14:42)
[2016-12-27 15:49] VITALS: BP 109/63
[2016-12-27] MEDS: cefTRIAXone INJECTION 1,000 MG in NS (IVPB) 50 ML IV SCH (21:15)
[2016-12-28] VITALS: BP 126/59
[2016-12-28] MEDS: HYDROcodone/APAP 10 MG/325 MG (LORTAB) TAB PO PRN ×4 (01:14→11:57)
[2016-12-28] MEDS: NS IV 1000 ML 1,000 ML IV SCH (03:53)
[2016-12-28] MEDS: metroNIDAZOLE 500 MG/100 ML IVPB (PRE-MIX) IV SCH (06:11)
[2016-12-28] MEDS: RT-ALBUTEROL SULF 2.5 MG/3 ML PRE-MIX VIAL IH SCH (07:25)
[2016-12-28 08:00] VITALS: BP 120/64
[2016-12-28] MEDS ORDERED: AMOX-355 PO (10:56)
[2016-12-28] MEDS ORDERED: HYDR-753 PO (10:56)
--- NOTE | 2016-12-28 11:15 | Discharge Summary-Hospitalist ---
Diagnosis/Chief Complaint Date of Admission Dec 25, 2016 at 21:00 Date of Discharge Discharge Date: Dec 28, 2016 Admission Diagnosis Sigmoid diverticulitis. 2.hematochezia secondary to number 1. 3.rheumatoid arthritis by history and medication. 4.COPD Discharge Diagnosis Notes from 12/28/16 Chart Review: No fever Vitals stable Reviewed labs Pharmacy Review: Pt is on day four of abx Could use Omnicef or Flagyl Patient Interview: Pt confirms pharmacy as [facility] and PCP as Dr. Andrade Pt confirms seeing Dr. Anthony. Pt was advised to follow up with Dr. Anthony and Dr. Andrade after DC. Pt is unsure of the last time he had a colonoscopy Pt states he needs more pain medication so his supply does not run out Pt confirms having liquid BMs Physical exam stable. Plan: 6 week follow up with Dr. Anthony Follow up with Dr. Andrade in 2 weeks Meds to [facility] script Augmentin 500 BID Hold Fosamax Scribed by Ally Emanuel under the direct supervision of Dr. Bernstein. (1) Hematochezia Status: Acute Assessment & Plan: Treated conservatively appreciated Dr. Anthony consultation (2) COPD (chronic obstructive pulmonary disease) Status: Chronic (3) Rheumatoid arthritis Status: Chronic Assessment & Plan: Holding methotrexate due to active infection (4) Diverticulitis Status: Acute Discharge Summary Discharge Physical Examination Allergies: Coded Allergies: diphenhydramine (Verified Allergy, Severe, 12/25/16) alprazolam (Verified Adverse Reaction, Intermediate, MENTAL MOOD CHANGE, 03/31/16) SIG OTHER SAID THE PATIENT GETS COMBATIVE,ANGRY AND VIOLENT. SHE STATES THAT HIS BEHAVIOR IS ODD AND UNLIKE HIM Vitals & I&Os Vital Signs Date Time Temp Pulse Resp B/P (MAP) Pulse Ox O2 Delivery O2 Flow Rate FiO2 12/28/16 08:00 97.3 65 20 120/64 93 Room Air Hospital Course Hospital course: Patient was admitted placed on IV antibiotics along with general surgery consultation with Dr. Anthony due to hematochezia due to acute diverticulitis. He has a history of a bowel resection due to severe diverticulosis and he will have a follow-up visit with Dr. Anthony in 6 weeks for likely repeat colonoscopy and possible resection plans once again. Methotrexate was held due to infection acute process and he was maintain on his home pain medication in the meantime. COPD was managed conservatively and on day of discharge he was deemed stable he wanted to go home and close follow-up with primary care provider and Dr. Anthony were arranged. Labs (last 24 hrs) Microbiology 12/25/16 Blood Culture - Preliminary, Resulted No growth 12/25/16 Cryptosporidium/Giardia - Final, Complete Discharge Home Medications: Active Scripts Active Augmentin 500-125 Tablet (Amoxicillin/Potassium Clav) 1 Each Tablet 1 Each PO BID [place] 10-325 Tablet (Hydrocodone/Acetaminophen) 1 Each Tablet 1 Tab PO Q4H PRN Reported Folic Acid 1 Mg Tablet 1 Mg PO DAILY Albuterol Sulfate 2.5 Mg/3 Ml Vial.neb 2.5 Mg IH Q4H PRN Symbicort 160-4.5 Mcg Inhaler (Budesonide/Formoterol Fumarate) 10.2 Gm Hfa.aer.ad 2 Puff IH BID Terazosin HCl 2 Mg Capsule 2 Mg PO BID Refresh Lacri-Lube Ointment (Mineral Oil/Petrolatum,White) 3.5 Gm Oint...g. OU PRN PRN ALTERNATES WITH REFRESH GEL DROPS Refresh Optive Gel Eye Drops (Carboxymethylcellulos/Glycerin) 10 Ml Drops.gel 1 Drop OU PRN PRN Atorvastatin Calcium 20 Mg Tablet 10 Mg PO HS TAKES 1/2 OF A (20 MG) TABLET Proair Hfa (Albuterol Sulfate) 1 Puff Puff 2 Puff IH QID PRN 1 PUFF = 90 MCG Omeprazole 20 Mg Capsule.dr 20 Mg PO BID Multi-Vitamin Daily (Multivitamin) 1 Each Tablet 2 Tab PO DAILY Lotrel 5-10 mg Capsule (Amlodipine Besylate/Benazepril) 1 Each Capsule 1 Cap PO DAILY Instructions to patient/family Please see electronic discharge instructions given to patient. Clinical Quality Measures DVT/VTE Risk/Contraindication: Risk Factor Score Per Nursin RFS Level Per Nursing on Admit: 3=High Problem Qualifiers (1) COPD (chronic obstructive pulmonary disease): COPD type: unspecified COPD Qualified Codes: J44.9 - Chronic obstructive pulmonary disease, unspecified (2) Rheumatoid arthritis: Rheumatoid arthritis location: multiple sites (3) Diverticulitis: Diverticulitis site: large intestine Diverticulitis bleeding: with bleeding Diverticulitis complication: without perforation or abscess Qualified Codes: K57.33 - Diverticulitis of large intestine without perforation or abscess with bleeding ANTONIO BERNSTEIN DO Dec 28, 2016 11:15
[2016-12-28] MEDS ORDERED: metroNIDAZOLE 500 MG (FLAGYL) TAB PO SCH (13:00)
== END 2016-12-28 12:05 | disposition home or self-care (01) | DRG 379 ==
LOC: EDUNIT# 17:47 → ER 17:48 → 4TH 21:00
PROVIDERS: ADMIT Family Medicine; ATTEND Family Medicine
DX: K57.33 Diverticulitis of large intestine without perforation or abscess with bleeding (principal); K52.9 Noninfective gastroenteritis and colitis, unspecified; K21.9 Gastro-esophageal reflux disease without esophagitis; I10 Essential (primary) hypertension; J44.9 Chronic obstructive pulmonary disease, unspecified; J30.2 Other seasonal allergic rhinitis; E78.00 Pure hypercholesterolemia, unspecified; M06.9 Rheumatoid arthritis, unspecified; N40.0 Benign prostatic hyperplasia without lower urinary tract symptoms; M19.91 Primary osteoarthritis, unspecified site; F41.9 Anxiety disorder, unspecified; F32.9 Major depressive disorder, single episode, unspecified; Z90.49 Acquired absence of other specified parts of digestive tract; F43.10 Post-traumatic stress disorder, unspecified; Z87.891 Personal history of nicotine dependence
CPT/HCPCS: 36415; 74177; 80053; 83605; 83735; 85007; 85025; 85027; 86141; 86850; 86900; 86901; 87040; 87045; 87046; 87177; 87324; 87328; 87329; 87449; 94640; 94760; 96361; 96374; 99284

== ENCOUNTER 2017-02-14 05:40 | Outpatient (CLI) | payer MEDICARE, OTHER ==
[~2017-02-14] VITALS: Ht 185.4 cm; Wt 87.1 kg
[~2017-02-14 05:40] MED LIST changes: +ALBU2.5V4 IH; +ALEN70TA2 PO; +AMOX-355 PO; +BUDE10.2 IH; +CARB10DR2 OU; +FOLI1TAB24 PO; +MINE3.5O2 OU; +RT-ALBUINH IH
== END 2017-02-14 11:15 ==
LOC: PREOP 05:40
PROVIDERS: ATTEND Surgery
DX: Z01.818 Encounter for other preprocedural examination (principal); R10.32 Left lower quadrant pain

== ENCOUNTER 2017-02-15 10:43 | Day surgery (SDC) | payer MEDICARE, OTHER ==
[~2017-02-15] VITALS: Ht 185.4 cm; Wt 87.1 kg
[2017-02-15] MEDS ORDERED: NS IV 500 ML 500 ML IV PRN (11:00)
[2017-02-15 11:09] VITALS: BP 114/81
--- OUTSIDE RECORDS SUMMARY | 2017-02-15 11:11 | XMS REPORT | Clinical Summary ---
Author Author [facility] Organization [facility] Address Unknown Phone Unavailable Care Team Providers Care Automatic Tire Tester Name Role Phone PCP Unavailable Source Comments Some departments are not documenting in the electronic medical record. If you do not see the information that you expected, contact Release of Information in the Health Information Management department at [phone] for further assistance in locating additional records.[facility] Allergies Active Allergy Reactions Severity Noted Date [...] Taken Blood Pressure 115/76 04/04/2013 10:08 AM CATTLE TRADER Pulse 104 04/04/2013 10:51 AM CATTLE TRADER Temperature 36.6 C (97.8 F) 04/04/2013 10:08 AM CATTLE TRADER Respiratory Rate 18 04/04/2013 10:08 AM CATTLE TRADER Oxygen Saturation - - Inhaled Oxygen - - Concentration Weight 98.1 kg (216 lb 3.2 oz) 04/04/2013 10:08 AM CATTLE TRADER Height 179.6 cm (5' 10.7") 04/04/2013 10:08 AM CATTLE TRADER Body Mass Index 30.41 04/04/2013 10:08 AM CATTLE TRADER Plan of Treatment Health Maintenance Due Date Last Done Comments PHYSICAL (COMPREHENSIVE) 1952 EXAM PERTUSSIS VACCINE 1956 TETANUS VACCINE 1962 COLORECTAL CANCER 1995 SCREENING SHINGLES VACCINE 2005 ABDOMINAL AORTIC ANEURYSM 2010 SCREENING PREVNAR/PNEUMOVAX (#1) 2010 INFLUENZA VACCINE 11/01/2016 02/21/2013 HEPATITIS C SCREENING Completed 11/16/2012 Results Not on filefrom Last 3 Months
--- NOTE | 2017-02-15 11:19 | Conscious Sedation/ASA ---
Conscious Sedation Pre-Proced Time Reviewed: 11:00 ASA Class: 2 Airway Mallampati Classification: (manzanita appropriate class) I. II. III, IV Lungs Heart ASA score ASA 1: a normal healthy patient ASA 2: a patient with a mild systemic disease (mid diabetes, controlled hypertension, obesity ASA 3: a patient with a severe systemic disease that limits activity (angina , COPD, prior Myocardial infarction) ASA 4: a patient with an incapacitating disease that is a constant threat to life (CHF, renal failure) ASA 5: a moribund patient not expected to survive 24 hrs. (ruptured aneurysm) ASA 6: a declared brain patient whose organs are being harvested. For emergent operations, add the letter E after the classification Grade 2 Sedation Plan: Analgesia, Amnesia, Plan communicated to team members, Discussed options with patient/fam, Discussed risks with patient/fam Note The patient is an appropriate candidate to undergo the planned procedure, sedation, and anesthesia. The patient immediately re-assessed prior to indication. ROMAIN LOFTON MD Feb 15, 2017 11:19 am
--- NOTE | 2017-02-15 11:20 | Progress Note-Pre Operative ---
Pre-Operative Progress Note H&P Reviewed The H&P was reviewed, patient examined and no changes noted. Date Seen by Provider: Feb 15, 2017 Time Seen by Provider: 11:00 Date H&P Reviewed: Feb 15, 2017 Time H&P Reviewed: 11:00 Pre-Operative Diagnosis: hx diverticulitis ROMAIN LOFTON MD Feb 15, 2017 11:20 am
[2017-02-15] MEDS ORDERED: HYDROcodone/APAP 5 MG/325 MG (LORTAB) TAB PO PRN (11:30)
[2017-02-15] MEDS ORDERED: ACETAMINOPHEN 325 MG TABLET/CAPLET (TYLENOL) PO PRN (11:30)
[2017-02-15] MEDS ORDERED: morphine INJ 10 MG/ML 1ML (SYR OR VIAL) IV PRN (11:30)
[2017-02-15] MEDS ORDERED: ONDANSETRON 4 MG/2 ML (SDV) Z0FRAN IV PRN (11:30)
[2017-02-15] MEDS ORDERED: fentaNYL INJECTION 100 MCG/2 ML AMP ONE (12:41)
[2017-02-15] MEDS ORDERED: MIDAZOLAM 2 MG/2 ML (VERSED) VIAL ONE ×3 (12:41)
[2017-02-15] MEDS ORDERED: LIDOCAINE JELLY 2% (XYLOCAINE) 5 ML TUBE ONE (12:41)
[2017-02-15] MEDS: fentaNYL INJECTION 100 MCG/2 ML AMP IVP PRN ×2 (12:50→12:55)
[2017-02-15] MEDS: MIDAZOLAM 2 MG/2 ML (VERSED) VIAL IVP PRN ×2 (12:51→12:56)
--- NOTE | 2017-02-15 13:25 | Progress Note-Post Operative ---
Post-Operative Progess Note Surgeon (s)/Food And Drug Inspector (s) Surgeon ROMAIN LOFTON MD Food And Drug Inspector: none Pre-Operative Diagnosis hx diverticulitis Post-Operative Diagnosis mild chronic stage 2 ext and int hemorrhoids, moderate descending colon diverticulosis. Procedure & Operative Findings Date of Procedure 02/15/17 Procedure Performed/Findings Colonoscopy. Anesthesia Type CS Estimated Blood Loss Estimated blood loss (mL): minimal Specimens/Packing Specimens Removed none ROMAIN LOFTON MD Feb 15, 2017 1:25 pm
--- NOTE | 2017-02-15 13:27 | Discharge Inst-Surgical ---
D/C Lap Instructions-ROLLY Follow Up 10 years Activity as tolerated High Fiber Diet 25g or more per day Avoid Alcohol, Caffeine, Spicy Stiles and Acid foods. Drink 64 fluid oz or more of fluids per day. Symptoms to Report: Fever over 101 degree F, Nausea/Vomiting If any problems/questions: Contact your physician or go to Emergency Room ROMAIN LOFTON MD Feb 15, 2017 1:27 pm
[2017-02-15] MEDS ORDERED: LIDOCAINE JELLY 2% (XYLOCAINE) 5 ML TUBE TOP ONE (13:30)
[2017-02-15 13:35] VITALS: BP 114/74
[2017-02-15 14:02] VITALS: BP 117/75
[2017-02-15 14:05] VITALS: BP 117/75
--- NOTE | 2017-02-15 14:27 | OPERATIVE REPORT ---
DATE OF SERVICE: 02/15/2017 ATTENDING PRIMARY CARE PHYSICIAN: Dr. Andrade. PREOPERATIVE DIAGNOSES: History of diverticulitis and diverticulosis. POSTOPERATIVE DIAGNOSES: Chronic stage II external and internal hemorrhoids, moderate descending colonic diverticulosis with no signs of diverticulitis. PROCEDURE: Colonoscopy. SURGEON: Dr. Lofton. ANESTHESIA: Conscious sedation. ESTIMATED BLOOD LOSS: Minimal. FINDINGS: Chronic stage II external and internal hemorrhoids. Prostate gland was palpable and appeared normal. Moderate descending colonic diverticulosis with no mucosal inflammatory changes to indicate any active diverticulitis. There were no polyps or any neoplasms identified. DISPOSITION: The patient tolerated the procedure well. The patient is a 71-year-old male who was admitted to the hospital approximately 6 weeks ago for left lower abdominal quadrant pain as well as blood in the stools. He does have a history of diverticulosis and diverticulitis requiring a sigmoid colectomy several years ago. He states when he does eat the wrong foods including popcorn, he does have recurrent episodes of pain in the left lower abdominal quadrant as well as blood in stools. On his most recent admission, a CT scan was performed which did show inflammation of the colon as well as diverticulosis consistent with a diverticulitis. He was treated with conservative management with IV fluids and IV antibiotics and did well. DESCRIPTION OF PROCEDURE: The patient was brought to the endoscopy suite, laid in the left lateral decubitus position. After adequate IV pain and sedative medications and conscious sedation anesthesia, a digital rectal examination was performed. Chronic stage II external and internal hemorrhoids were identified, which are not actively edematous nor inflamed and no bleeding. Normal sphincter tone was felt and there were no palpable masses. Prostate gland was palpable and appeared normal. The endoscope was then intubated to the anus and the rectum gently insufflated. The endoscope was then advanced to the valves of Mckenzie in the rectum with no polyps or any neoplasms identified. The descending colon was identified and there was diverticulosis identified which was moderate severity. There was no mucosal inflammatory changes to indicate any active diverticulitis. There were no polyps or any neoplasms identified. The endoscope was then advanced to the remainder of the descending, transverse and ascending colon to the cecum were normal. The endoscope was then slowly withdrawn while taking a second look and suctioning residual air with no additional findings. The patient tolerated the procedure well. We will recommend continued medical management with high fiber diet with at least 30 grams of fiber per day as well as at least 64 fluid ounces of water daily to promote soft stools on a daily basis. No polyps or any neoplasms identified. We recommended that he also avoid the foods that initiate the episodes of diverticulitis. He does not report any family history of colon cancer and is asymptomatic. We made another 10 years for his next colonoscopy. Job ID: [id number] DocumentID: [id number] Dictated Date: 02/15/2017 13:21:11 Typing Pool Supervisor Date: 02/15/2017 14:27:12 Dictated By: ROMAIN LOFTON MD MTDAdilson
== END 2017-02-15 14:05 | disposition home or self-care (01) ==
LOC: ENDO 10:43
PROVIDERS: ATTEND Surgery
DX: K57.30 Diverticulosis of large intestine without perforation or abscess without bleeding (principal); K64.1 Second degree hemorrhoids; K21.9 Gastro-esophageal reflux disease without esophagitis; I10 Essential (primary) hypertension; E78.00 Pure hypercholesterolemia, unspecified; M06.9 Rheumatoid arthritis, unspecified; F41.9 Anxiety disorder, unspecified; F32.9 Major depressive disorder, single episode, unspecified

== ENCOUNTER → 2017-06-06 | Outpatient (CLI) | payer MEDICARE, OTHER ==
--- NOTE | 2017-06-06 11:42 | Diagnostic Imaging Report ---
INDICATION: Leg pain. TECHNIQUE: Multiple real-time grayscale images were obtained of both lower extremities in various projections. Duplex Doppler and color Doppler images were also obtained. FINDINGS: The common femoral, femoral and popliteal veins demonstrate normal response to compression, augmentation and Valsalva. There are no abnormal lower extremity fluid collections or masses. IMPRESSION: No evidence of deep venous thrombosis in either lower extremity. Dictated by: Dictated on workstation # [id number]
--- NOTE | 2017-06-06 13:26 | Diagnostic Imaging Report ---
PROCEDURE: US Bilateral lower extremity arterial. TECHNIQUE: Multiple real-time grayscale images are obtained through both lower extremity arterial systems with color Doppler imaging and color Doppler spectral analysis. INDICATION: Bilateral leg pain. FINDINGS: Primarily triphasic waveforms are identified throughout both lower extremity arterial systems. The velocities are normal bilaterally. No velocity elevation or stenosis is seen. There is no occlusion. IMPRESSION: Unremarkable bilateral lower extremity arterial Doppler. Dictated by: Dictated on workstation # [id number]
== END ==
LOC: RAD 09:53
PROVIDERS: ATTEND Family Medicine
DX: M00-M99 Diseases of the musculoskeletal system and connective tissue (principal); M79.605 Pain in left leg; M79.604 Pain in right leg; R06.00 Dyspnea, unspecified; R06.89 Other abnormalities of breathing
CPT/HCPCS: 93925; 93970

== ENCOUNTER 2018-06-30 20:15 | Emergency (ER) | payer MEDICARE, OTHER ==
[~2018-06-30] VITALS: Ht 185.4 cm; Wt 84.4 kg
[~2018-06-30 20:15] MED LIST changes: +HYDR-4196 PO; -HYDR-753 PO; +MTX2.5T PO
--- NOTE | 2018-06-30 20:44 | NUR ---
PT BROUGHT BACK TO ROOM 4, AMBULATES TO BED W/O ASSISTANCE
[2018-06-30 22:33] LABS: BASOPHILS # (AUTO) 0.1 10^3/uL (0.0-0.1); BASOPHILS % (AUTO) 1 % (0-10); EOSINOPHILS # (AUTO) 0.4 10^3/uL (0.0-0.3); EOSINOPHILS % (AUTO) 9 % (0-10); HEMATOCRIT 36 % (40-54); HEMOGLOBIN 11.3 G/DL (13.3-17.7); LYMPHOCYTES # (AUTO) 1.2 X 10^3 (1.0-4.0); LYMPHOCYTES % (AUTO) 25 % (12-44); MEAN CORPUSCULAR HEMOGLOBIN 28 PG (25-34); MEAN CORPUSCULAR HGB CONC 31 G/DL (32-36); MEAN CORPUSCULAR VOLUME 91 FL (80-99); MEAN PLATELET VOLUME 9.9 FL (7.4-10.4); MONOCYTES # (AUTO) 0.5 X 10^3 (0.0-1.0); MONOCYTES % (AUTO) 11 % (0-12); NEUTROPHILS # (AUTO) 2.7 X 10^3 (1.8-7.8); NEUTROPHILS % (AUTO) 55 % (42-75); PLATELET COUNT 258 10^3/uL (130-400); RED CELL DISTRIBUTION WIDTH 14.9 % (10.0-14.5); WHITE BLOOD COUNT 4.9 10^3/uL (4.3-11.0)
[2018-06-30 22:41] LABS: PROTHROMBIN TIME PATIENT 13.1 SEC (12.2-14.7)
[2018-06-30 22:46] LABS: ALANINE AMINOTRANSFERASE 27 U/L (0-55); ALBUMIN 4.2 GM/DL (3.2-4.5); ALKALINE PHOSPHATASE 77 U/L (40-136); AMYLASE 61 U/L (25-125); BILIRUBIN,TOTAL 0.3 MG/DL (0.1-1.0); BUN/CREATININE RATIO 20; CALCIUM 9.4 MG/DL (8.5-10.1); CARBON DIOXIDE 25 MMOL/L (21-32); CHLORIDE 106 MMOL/L (98-107); CREATINE KINASE 308 U/L (30-200); CREATININE SERUM 0.81 MG/DL (0.60-1.30); GFR ESTIMATED > 60; GLUCOSE 97 MG/DL (70-105); LIPASE 6 U/L (8-78); MAGNESIUM 2.4 MG/DL (1.8-2.4); POTASSIUM 4.4 MMOL/L (3.6-5.0); SODIUM 144 MMOL/L (135-145)
[2018-06-30] MEDS ORDERED: KETOROLAC 30 MG/ML VIAL IVP ONE (23:00)
[2018-06-30 23:02] LABS: BILIRUBIN,URINE NEGATIVE (NEGATIVE); CLARITY,URINE CLEAR; COLOR,URINE YELLOW; GLUCOSE, URINE (UA) NEGATIVE (NEGATIVE); KETONES,URINE NEGATIVE (NEGATIVE); LEUKOCYTE ESTERASE ,URINE NEGATIVE (NEGATIVE); NITRITE,URINE NEGATIVE (NEGATIVE); PH,URINE 8 (5-9); PROTEIN,URINE NEGATIVE (NEGATIVE); UROBILINOGEN,URINE NORMAL (NORMAL)
[2018-06-30 23:05] LABS: CREATINE KINASE MB 3.3 NG/ML (<6.6); TSH (THYROID ANALYZER) 0.89 UIU/ML (0.35-4.94)
[2018-06-30 23:08] LABS: BACTERIA,URINE NEGATIVE /HPF; SQUAMOUS EPITHELIAL CELL,UR RARE /HPF
[2018-06-30] MEDS ORDERED: fentaNYL INJECTION 100 MCG/2 ML AMP IVP STA (23:43)
[2018-06-30] MEDS ORDERED: METH4TAB PO (23:55)
--- NOTE | 2018-06-30 23:55 | ED General ---
General Chief Complaint: General Problems/Pain Stated Complaint: SOA,FALL YESTERDAY,LEG PAIN Nursing Triage Note: PT AMB TO TRIAGE WITH COMPLAINT OF RIGHT LEG PAIN AND SOA. PT STATES HE HAS BEEN WORKING IN THE [place] AND FELL OFF LADDER. DENIES HITTING HEAD. STATES HE HAS ALSO BEEN SOB FROM SOMETHING HE GOT INTO. PT HAS HX OF COPD. Nursing Sepsis Screen: No Definite Risk Source of Information: Patient (EXTREMELY DIFFICULT AND LIMITED HISTORIAN), Spouse (FAIR HISTORIAN) History of Present Illness Date Seen by Provider: Jun 30, 2018 Time Seen by Provider: 22:02 Initial Comments PT ARRIVES VIA POV FROM HOME STATES "I HAVE BREATHING DIFFICULTY ANYWAY" ( STATES HE HAS COPD) STATES "I WAS HAVING SHORTNESS OF BREATH DIFFERENT FROM MY NORMAL"--PT REPEATS THIS SEVERAL TIMES. BEGAN YESTERDAY AFTER WORKING IN [employer] HAS NEBULIZER AT HOME--STATES "BEEN USING IT ALOT" --STATES HE HAS BEEN USING IT ONE TIME A DAY AND SOME TIMES 2 OR 3 TIMES A DAY. STATES HE HAS NOT USED IT AT ALL TODAY, BUT USED IT 1 TIME YESTERDAY AND 1 TIME THE DAY BEFORE. PT THEN STATES HE WAS STARTED ON BREO A COUPLE OF MONTHS AGO "AND THAT FIXED THAT PROBLEM" AND NOW "HE DOESN'T HAVE ANY BREATHING PROBLEMS" NO CHEST PAIN NO FEVER NO COUGH NO SWELLING IN LEGS/ FEET OR PAIN IN CALVES NO PALPITATIONS NO DIZZINESS THEN REMINDS HIM THAT HE FELL OFF THE LADDER YESTERDAY WHILE WORKING IN [place] HE STATES HE WAS ON ABOUT THE 7TH STEP, BUT REPORTS THAT SHE WAS STANDING RIGHT NEXT TO HIM AND HE HAD COME DOWN THE LADDER AND WAS ON THE FIRST OR SECOND STEP AND HE FELL SIDEWAYS AND LANDED ON HIS RIGHT SIDE ONTO CONCRETE FLOOR HE HAS BEEN C/O PAIN TO RIGHT SIDE OF CHEST/ABDOMEN AND BACK AND PAIN DOWN HIS RIGHT LEG PT POINTS TO RIGHT SI JOINT AREA OF PAIN, HE ALSO REPORTS PAIN TO RIGHT ANTERIOR THIGH AND TO RIGHT GILL. DENIES HITTING HIS HEAD AND NO LOSS OF CONSCIOUSNESS NO NECK PAIN NO PARESTHESIAS OR MOTOR DEFICITS PT HAS RHEUMATOID ARTHRITIS AND TAKES HYDROCODONE DAILY--STATES HE TOOK 1 PILL TODAY, AROUND NOON PCP: DR. CRAWFORD PROPERTY INSURANCE CLAIMS EXAMINER: DR. POWELL ALSO GOES TO MD Allergies and Home Medications Allergies Coded Allergies: diphenhydramine (Verified Allergy, Severe, 12/25/16) alprazolam (Verified Adverse Reaction, Intermediate, MENTAL MOOD CHANGE, 03/31/16) SIG OTHER SAID THE PATIENT GETS COMBATIVE,ANGRY AND VIOLENT. SHE STATES THAT HIS BEHAVIOR IS ODD AND UNLIKE HIM Home Medications Albuterol Sulfate 1 Puff Puff, 2 PUFF IH QID PRN for SHORTNESS OF BREATH, ( Reported) 1 PUFF = 90 MCG Albuterol Sulfate 2.5 Mg/3 Ml Vial.neb, 2.5 MG IH Q4H PRN for SHORTNESS OF BREATH, (Reported) Amlodipine Besylate/Benazepril 1 Each Capsule, 1 CAP PO DAILY, (Reported) Atorvastatin Calcium 20 Mg Tablet, 10 MG PO HS, (Reported) TAKES 1/2 OF A (20 MG) TABLET Budesonide/Formoterol Fumarate 10.2 Gm Hfa.aer.ad, 2 PUFF IH BID, (Reported) Carboxymethylcellulos/Glycerin 10 Ml Drops.gel, 1 DROP OU PRN PRN for DRY EYES, (Reported) Folic Acid 1 Mg Tablet, 1 MG PO DAILY, (Reported) Methylprednisolone 4 Mg Tab.ds.pk, 4 MG PO UD Prescribed by: CB VALENCIA on 06/30/18 2526 Mineral Oil/Petrolatum,White 3.5 Gm Oint...g., OU PRN PRN for DRY EYES, ( Reported) ALTERNATES WITH REFRESH GEL DROPS Multivitamin 1 Each Tablet, 2 TAB PO DAILY, (Reported) Omeprazole 20 Mg Capsule.dr, 20 MG PO BID, (Reported) Terazosin HCl 2 Mg Capsule, 2 MG PO BID, (Reported) Patient Home Medication List Home Medication List Reviewed: Yes Review of Systems Review of Systems Constitutional: no symptoms reported; No chills, No diaphoresis, No dizziness, No fever EENTM: no symptoms reported Respiratory: see HPI; No cough, No orthopnea, No phlegm; short of breath; No wheezing Cardiovascular: see HPI; No edema, No palpitations, No syncope, No vascular heart diseas Gastrointestinal: no symptoms reported; No abdominal pain, No nausea, No vomiting Genitourinary: no symptoms reported Musculoskeletal: see HPI Skin: no symptoms reported Psychiatric/Neurological: No Symptoms Reported Hematologic/Lymphatic: No Symptoms Reported Immunological/Allergic: no symptoms reported Past Ipxdahx-Zvtmrq-[id number] Hx Patient Social History Alcohol Use: Occasionally Uses Number of Drinks Today: AA Alcohol Beverage of Choice: Beer Recreational Drug Use: No Smoking Status: Former Smoker Type Used: Cigarettes Former Smoker, Quit: Apr 03, 1994 Recent Foreign Travel: No Contact w/Someone Who Travel: No Recent Infectious Disease Expo: No Recent Hopitalizations: No Immunizations Up To Date Date of Pneumonia Vaccine: Mar 31, 2014 Seasonal Allergies Seasonal Allergies: Yes Past Medical History Surgeries: Yes (LIPOMAS, HIATAL HERNIA REPAIR WITH INCISIONAL HERNIA REPAIR; COLON RESECTION FOR DIVERTICULITIS; EGD'S /COLONOSCOPIES) Abdominal, Bowel Surgery Respiratory: Yes (ALLERGIES, HX ASTHMA) Asthma, COPD Currently Using CPAP: No Currently Using BIPAP: No Cardiac: Yes High Cholesterol, Hypertension Neurological: No Reproductive Disorders: No Sexually Transmitted Disease: No HIV/AIDS: No Genitourinary: Yes Benign Prostatic Hyperpl Gastrointestinal: Yes (14 in. COLON RESECTION FOR DIVERTICULITIS; HIATAL HERNIA REPAIR WITH INCISIONAL HERNIA REPAIR; EGD'S /COLONOSCOPIES) Colitis, Gastroesophageal Reflux, Diverticulosis, Hemorrhoids, Hiatal Hernia Musculoskeletal: Yes (RESTLESS LEG SYNDROME) Osteoporosis, Arthritis, Rheumatoid Arthritis, Chronic Back Pain Endocrine: No HEENT: Yes Cataract Hearing Impairment: Denies Cancer: No Psychosocial: Yes Anxiety, PTSD, Depression Integumentary: No Blood Disorders: No Family Medical History No Pertinent Family Hx Physical Exam Vital Signs Vital Signs - First Documented 06/30/18 20:27 Temp 98.0 Pulse 58 Resp 20 B/P (MAP) 135/84 (101) Pulse Ox 96 O2 Delivery Room Air Capillary Refill : Less Than 3 Seconds Height, Weight, BMI Height: 6'1.00" Weight: 186lbs. 0.0oz. 84.552076bu; 25.3 BMI Method:Stated General Appearance: No Apparent Distress, WD/WN, Other (DOES NOT APPEAR TO BE IN ANY DISCOMFORT OR DISTRESS WHATSOEVER AT ANY TIME) HEENT: PERRL/EOMI Neck: Full Range of Motion, Normal Inspection, Non Tender, Supple Respiratory: Normal Breath Sounds, No Accessory Muscle Use, No Respiratory Distress, Other (TENDERNESS TO RIGHT CVA AREA. NO CREPITANCE OR SUB Q AIR. NO BRUISING OR EXTERNAL EVIDENCE OF TRAUMA) Cardiovascular: Regular Rate, Rhythm, No Edema, No JVD, No Murmur, Normal Peripheral Pulses Gastrointestinal: Normal Bowel Sounds, No Organomegaly, No Pulsatile Mass, Soft , Tenderness (MILD RIGHT FLANK TENDERNESS) Back: Other (RIGHT SI JOINT TENDERNESS, RIGHT HIP TENDERNESS, RIGHT ANTERIOR THIGH TENDERNESS, RIGHT ANTERIOR TIBIA TENDERNESS--ALL MILDLY TENDER. FULL ROM. MOTOR/SENSORY/VASCULAR INTACT. NO EXTERNAL EVIDENCE OF TRAUMA. ) Extremity: Normal Capillary Refill, Normal Range of Motion, No Calf Tenderness , No Pedal Edema Neurologic/Psychiatric: Alert, Oriented x3 (BUT SOMEWHAT LIMITED MEMORY), No Motor/Sensory Deficits, home health care case manager II-XII Norm as Tested Skin: Normal Color, Warm/Dry Progress/Results/Core Measures Suspected Sepsis Recent Fever Within 48 Hours: No Infection Criteria Present: None New/Unexplained Altered Menta: No Sepsis Screen: No Definite Risk SIRS Temperature:98.0 Pulse: 58 Respiratory Rate: 20 Laboratory Tests 06/30/18 21:45: White Blood Count 4.9 Blood Pressure 135 /84 Mean: 101 Laboratory Tests 06/30/18 21:45: Creatinine 0.81, INR Comment 1.0, Platelet Count 258, Total Bilirubin 0.3 Results/Orders Lab Results Laboratory Tests Test 06/30/18 21:45 06/30/18 22:30 Range/Units White Blood Count 4.9 4.3-11.0 10^3/uL Red Blood Count 4.00 L 4.35-5.85 10^6/uL Hemoglobin 11.3 L 13.3-17.7 G/DL Hematocrit 36 L 40-54 % Mean Corpuscular Volume 91 80-99 FL Mean Corpuscular Hemoglobin 28 25-34 PG Mean Corpuscular Hemoglobin Concent 31 L 32-36 G/DL Red Cell Distribution Width 14.9 H 10.0-14.5 % Platelet Count 258 130-400 10^3/uL Mean Platelet Volume 9.9 7.4-10.4 FL Neutrophils (%) (Auto) 55 42-75 % Lymphocytes (%) (Auto) 25 12-44 % Monocytes (%) (Auto) 11 0-12 % Eosinophils (%) (Auto) 9 0-10 % Basophils (%) (Auto) 1 0-10 % Neutrophils # (Auto) 2.7 1.8-7.8 X 10^3 Lymphocytes # (Auto) 1.2 1.0-4.0 X 10^3 Monocytes # (Auto) 0.5 0.0-1.0 X 10^3 Eosinophils # (Auto) 0.4 H 0.0-0.3 10^3/uL Basophils # (Auto) 0.1 0.0-0.1 10^3/uL Prothrombin Time 13.1 12.2-14.7 SEC INR Comment 1.0 0.8-1.4 Activated Partial Thromboplast Time 36 H 24-35 SEC Sodium Level 144 135-145 MMOL/L Potassium Level 4.4 3.6-5.0 MMOL/L Chloride Level 106 98-107 MMOL/L Carbon Dioxide Level 25 21-32 MMOL/L Anion Gap 13 5-14 MMOL/L Blood Urea Nitrogen 16 7-18 MG/DL Creatinine 0.81 0.60-1.30 MG/DL Estimat Glomerular Filtration Rate > 60 BUN/Creatinine Ratio 20 Glucose Level 97 70-105 MG/DL Calcium Level 9.4 8.5-10.1 MG/DL Corrected Calcium 9.2 8.5-10.1 MG/DL Magnesium Level 2.4 1.8-2.4 MG/DL Total Bilirubin 0.3 0.1-1.0 MG/DL Aspartate Amino Transf (AST/SGOT) 32 5-34 U/L Alanine Aminotransferase (ALT/SGPT) 27 0-55 U/L Alkaline Phosphatase 77 40-136 U/L Total Creatine Kinase 308 H 30-200 U/L Creatine Kinase MB 3.3 <6.6 NG/ML Troponin I < 0.028 <0.028 NG/ML B-Type Natriuretic Peptide 54.8 <100.0 PG/ML Total Protein 7.0 6.4-8.2 GM/DL Albumin 4.2 3.2-4.5 GM/DL Amylase Level 61 25-125 U/L Lipase 6 L 8-78 U/L TSH [place] Testing 0.89 0.35-4.94 UIU/ML Urine Color YELLOW Urine Clarity CLEAR Urine pH 8 5-9 Urine Specific [place] 1.015 L 1.016-1.022 Urine Protein NEGATIVE NEGATIVE Urine Glucose (UA) NEGATIVE NEGATIVE Urine Ketones NEGATIVE NEGATIVE Urine Nitrite NEGATIVE NEGATIVE Urine Bilirubin NEGATIVE NEGATIVE Urine Urobilinogen NORMAL NORMAL MG/DL Urine Leukocyte Esterase NEGATIVE NEGATIVE Urine RBC (Auto) NEGATIVE NEGATIVE Urine RBC NONE /HPF Urine WBC NONE /HPF Urine Squamous Epithelial Cells RARE /HPF Urine Crystals NONE /LPF Urine Bacteria NEGATIVE /HPF Urine Casts NONE /LPF Urine Mucus NEGATIVE /LPF Urine Culture Indicated NO My Orders Orders - CB VALENCIA DO Saline Lock/Iv-Start (06/30/18 22:14) Chest 1 View, Ap/Pa Only (06/30/18 22:14) Femur, Right, 2 Views (06/30/18 22:14) Tibia/Fibula, Right, 2 Views (06/30/18 22:14) Pelvis With Right Hip 2-3views (06/30/18 22:14) Amylase (06/30/18 22:14) BNP (06/30/18 22:14) Cbc With Automated Diff (06/30/18 22:14) Comprehensive Metabolic Panel (06/30/18 22:14) Creatine Kinase (06/30/18 22:14) Creatine Kinase Mb (06/30/18 22:14) Lipase (06/30/18 22:14) Magnesium (06/30/18 22:14) Protime With Inr (06/30/18 22:14) Partial Thromboplastin Time (06/30/18 22:14) Thyroid Analyzer (06/30/18 22:14) Troponin I (06/30/18 22:14) Ua Culture If Indicated (06/30/18 22:14) Ekg Tracing (06/30/18 22:14) Monitor-Rhythm Ecg Trace Only (06/30/18 22:14) Ketorolac Injection (Toradol Injection) (06/30/18 23:00) Fentanyl Injection (Sublimaze Injection (06/30/18 23:43) Medications Given in ED Current Medications Medications Dose Ordered Sig/Jennifer Route Start Time Stop Time Status Last Admin Dose Admin Ketorolac Tromethamine 30 mg ONCE ONCE IVP 06/30/18 23:00 06/30/18 23:01 DC 06/30/18 22:57 30 MG Vital Signs/I&O 06/30/18 07/01/18 20:27 00:14 Temp 98.0 98.5 Pulse 58 55 Resp 20 20 B/P (MAP) 135/84 (101) 152/77 (102) Pulse Ox 96 96 O2 Delivery Room Air Room Air Capillary Refill : Less Than 3 Seconds Blood Pressure Mean: 101 Progress Note : Progress Note AFTER INITIALLY AGREEING TO CT SCAN, PT THEN REFUSES ONCE HE IS IN CT DEPT-- STATES HE "DOESN'T NEED IT" AND "HE IS REALLY JUST HERE FOR STRONGER PAIN MEDICATION FOR HIS HIP AND LEG" NO COMPLAINTS OF DIFFICULTY BREATHING FOR REMAINDER OF ER STAY O2 SATS IN UPPER 90'S ON ROOM AIR, NO DYSPNEA AT ANY TIME ECG Initial ECG Impression Date: Jun 30, 2018 Initial ECG Impression Time: 22:48 Initial ECG Rate: 57 Initial ECG Rhythm: Normal Sinus Departure Impression Primary Impression: COPD (chronic obstructive pulmonary disease) Additional Impressions: S/P FALL FROM LADDER RIGHT HIP AND LEG CONTUSION RIGHT TRUNK CONTUSION Disposition: HOME, SELF-CARE Condition: Improved Departure-Patient Inst. Referrals: LINDA CRAWFORD MD (PCP/Family) Primary Care Physician Patient Instructions: CHEST CONTUSION, Chronic Obstructive Pulmonary Disease ( COPD), Including Emphysema, Contusion (DC) Add. Discharge Instructions: ALTERNATE ICE AND HEAT TO SORE AREAS AT 20 MINUTE INTERVALS TAKE YOUR MEDICATIONS PRESCRIBED FOLLOW UP WITH YOUR DR ON MONDAY IF NO BETTER, RETURN TO ER IF WORSE All discharge instructions reviewed with patient and/or family. Voiced understanding. Scripts Methylprednisolone (Medrol) 4 Mg Tab.ds.pk 4 MG PO UD, #1 PKG Prov: CB VALENCIA DO 06/30/18 CB VALENCIA DO Jun 30, 2018 23:55
[2018-07-01 00:14] VITALS: BP 152/77
--- NOTE | 2018-07-01 07:37 | Diagnostic Imaging Report ---
INDICATION: Right leg pain after fall TECHNIQUE: Frontal and Lateral views of the right femur CORRELATION STUDY: None FINDINGS: Examination of the femur demonstrates no evidence for acute bony abnormality or fracture of the femur. No allyson bony destructive change. Imaging of the hip and knee are unremarkable. Soft tissues are unremarkable. IMPRESSION: 1. Negative for acute bony abnormality of the right femur. Dictated by: Dictated on workstation # [id number]
--- NOTE | 2018-07-01 07:45 | Diagnostic Imaging Report ---
INDICATION: Leg pain after fall. TECHNIQUE: Single view chest 1107 PM. CORRELATION STUDY: 04/06/2016 FINDINGS: Heart size enlarged. Mediastinum is prominent with a tortuous course of the thoracic aorta. Increased density retrocardiac region favor probable hiatal hernia. The lungs are clear with no consolidating infiltrate. There is no significant effusion or pneumothorax. IMPRESSION: 1. Cardiac enlargement without failure. Dictated by: Dictated on workstation # [id number]
--- NOTE | 2018-07-01 08:54 | Diagnostic Imaging Report ---
EXAMINATION: Pelvis, single view. Right hip, 2 additional views. COMPARISON: None. HISTORY: 73-year-old male, fall. Right hip pain. FINDINGS: The pubic symphysis and sacroiliac joints are normally aligned. There are advanced disc and facet degenerative changes of the visualized lower lumbar spine. The left hip is not obviously dislocated. The right hip is not dislocated. There is no identified acute fracture. There is no radiopaque foreign body. IMPRESSION: 1. No identified acute bony abnormality of the pelvis or right hip. 2. Advanced disc and facet degenerative changes of the lower lumbar spine. Dictated by: Dictated on workstation # [id number]
--- NOTE | 2018-07-01 09:06 | Diagnostic Imaging Report ---
EXAMINATION: Right tibia and fibula radiographs, 2 views, 4 images. COMPARISON: None. HISTORY: 73-year-old male, right leg pain after a fall. FINDINGS: There is mild degenerative type enthesopathy at the distal quadriceps tendon insertion. There is no identified acute fracture. There is no radiopaque foreign body. There is no tibiotalar joint effusion. There is no prominent focal soft tissue swelling. IMPRESSION: 1. No identified acute bony abnormality of the right tibia or fibula. Dictated by: Dictated on workstation # [id number]
== END 2018-07-01 00:14 | disposition home or self-care (01) ==
LOC: EDUNIT# 20:15 → ER 20:17
DX: S70.01XA Contusion of right hip, initial encounter (principal); S80.11XA Contusion of right lower leg, initial encounter; S20.219A Contusion of unspecified front wall of thorax, initial encounter; J44.9 Chronic obstructive pulmonary disease, unspecified; E78.00 Pure hypercholesterolemia, unspecified; I10 Essential (primary) hypertension; K21.9 Gastro-esophageal reflux disease without esophagitis; G25.81 Restless legs syndrome; M81.0 Age-related osteoporosis without current pathological fracture; F41.9 Anxiety disorder, unspecified; F32.9 Major depressive disorder, single episode, unspecified; F43.10 Post-traumatic stress disorder, unspecified; M06.9 Rheumatoid arthritis, unspecified; Z87.19 Personal history of other diseases of the digestive system; Z87.448 Personal history of other diseases of urinary system; Z88.8 Allergy status to other drugs, medicaments and biological substances; Z79.52 Long term (current) use of systemic steroids; Z87.891 Personal history of nicotine dependence; Z98.890 Other specified postprocedural states; Z90.49 Acquired absence of other specified parts of digestive tract; W11.XXXA Fall on and from ladder, initial encounter; Y92.094 Garage of other non-institutional residence as the place of occurrence of the external cause
CPT/HCPCS: 36415; 71045; 73552; 73590; 80053; 81000; 82150; 82550; 82553; 83690; 83735; 83880; 84443; 84484; 85025; 85610; 85730; 93005; 93041; 96374; 96376

== ENCOUNTER 2018-12-07 06:03 | Emergency (ER) | payer MEDICARE, OTHER ==
[~2018-12-07] VITALS: Ht 185.4 cm; Wt 77.1 kg
[~2018-12-07 06:03] MED LIST changes: -DULO20CA18 PO; +DULO20CA19 PO; +METH4TAB PO; +OMEP20CA13 PO
--- NOTE | 2018-12-07 06:25 | ED Abdominal Pain ---
General Stated Complaint: LEG CRAMPS Source of Information: Patient Exam Limitations: No Limitations History of Present Illness Date Seen by Provider: Dec 07, 2018 Time Seen by Provider: 06:24 Initial Comments 73-year-old white male presents with a history of persistent diarrhea thought to be infectious in nature for which he has been placed on oral vancomycin. The patient's diarrhea has caused him to have leg cramps which precipitated his presentation to the emergency department this morning. There's been no associated headache stiff neck or photophobia. Patient denies productive cough or shortness of breath. He's had no chills or significant fever. The patient's diarrhea is improving. The patient is having leg cramps but no associated abdominal or arm cramps. Patient has been traveling and has received treatment from urgent cares as he returned from his trip to [facility]. Allergies and Home Medications Allergies Coded Allergies: diphenhydramine (Verified Allergy, Severe, 12/25/16) alprazolam (Verified Adverse Reaction, Intermediate, MENTAL MOOD CHANGE, 03/31/16) SIG OTHER SAID THE PATIENT GETS COMBATIVE,ANGRY AND VIOLENT. SHE STATES THAT HIS BEHAVIOR IS ODD AND UNLIKE HIM Home Medications Albuterol Sulfate 1 Puff Puff, 2 PUFF IH QID PRN for SHORTNESS OF BREATH, (Reported) 1 PUFF = 90 MCG Albuterol Sulfate 2.5 Mg/3 Ml Vial.neb, 2.5 MG IH Q4H PRN for SHORTNESS OF BREATH, (Reported) Amlodipine Besylate/Benazepril 1 Each Capsule, 1 CAP PO DAILY, (Reported) Atorvastatin Calcium 20 Mg Tablet, 10 MG PO HS, (Reported) TAKES 1/2 OF A (20 MG) TABLET Budesonide/Formoterol Fumarate 10.2 Gm Hfa.aer.ad, 2 PUFF IH BID, (Reported) Carboxymethylcellulos/Glycerin 10 Ml Drops.gel, 1 DROP OU PRN PRN for DRY EYES, (Reported) Folic Acid 1 Mg Tablet, 1 MG PO DAILY, (Reported) Methylprednisolone 4 Mg Tab.ds.pk, 4 MG PO UD Prescribed by: CB VALENCIA on 06/30/18 3295 Mineral Oil/Petrolatum,White 3.5 Gm Oint...g., OU PRN PRN for DRY EYES, (Reported) ALTERNATES WITH REFRESH GEL DROPS Multivitamin 1 Each Tablet, 2 TAB PO DAILY, (Reported) Omeprazole 20 Mg Capsule.dr, 20 MG PO BID, (Reported) Terazosin HCl 2 Mg Capsule, 2 MG PO BID, (Reported) Patient Home Medication List Home Medication List Reviewed: Yes Review of Systems Review of Systems Constitutional: No chills, No fever; malaise EENTM: No Symptoms Reported Respiratory: No Symptoms Reported Cardiovascular: No Symptoms Reported Gastrointestinal: See HPI Genitourinary: No Symptoms Reported Musculoskeletal: see HPI, muscle cramps Skin: no symptoms reported Psychiatric/Neurological: No Symptoms Reported Endocrine: No Symptoms Reported Hematologic/Lymphatic: No Symptoms Reported Past Qazonxq-Bbrpjg-Uqxtxe Hx Past Med/Social Hx: Reviewed Nursing Past Med/Soc Hx Patient Social History Alcohol Beverage of Choice: Beer Type Used: Cigarettes Former Smoker, Quit: Apr 03, 1994 Recent Foreign Travel: No Contact w/Someone Who Travel: No Recent Hopitalizations: No Immunizations Up To Date Date of Pneumonia Vaccine: Mar 31, 2014 Seasonal Allergies Seasonal Allergies: Yes Past Medical History Surgeries: Yes Abdominal, Bowel Surgery Respiratory: Yes (ALLERGIES, HX ASTHMA) Asthma, COPD Currently Using CPAP: No Currently Using BIPAP: No Cardiac: Yes High Cholesterol, Hypertension Neurological: No Reproductive Disorders: No Sexually Transmitted Disease: No HIV/AIDS: No Genitourinary: Yes Benign Prostatic Hyperpl Gastrointestinal: Yes Colitis, Gastroesophageal Reflux, Diverticulosis, Hemorrhoids, Hiatal Hernia Musculoskeletal: Yes (RESTLESS LEG SYNDROME) Osteoporosis, Arthritis, Rheumatoid Arthritis, Chronic Back Pain Endocrine: No HEENT: Yes Cataract Hearing Impairment: Denies Cancer: No Psychosocial: Yes Anxiety, PTSD, Depression Integumentary: No Blood Disorders: No Family Medical History No Pertinent Family Hx Physical Exam Vital Signs Vital Signs - First Documented 12/07/18 06:07 Temp 97.7 Pulse 66 Resp 20 B/P (MAP) 124/70 (88) Pulse Ox 94 Capillary Refill : Height/Weight/BMI Height: 6'1.00" Weight: 186lbs. 0.0oz. 84.227430ic; 25.3 BMI Method:Stated General Appearance: WD/WN, no apparent distress HEENT: normal ENT inspection Neck: normal inspection Respiratory: chest non-tender, lungs clear, normal breath sounds, no respiratory distress Cardiovascular: normal peripheral pulses, regular rate, rhythm Gastrointestinal: normal bowel sounds, non tender, soft Extremities: normal range of motion, non-tender, normal inspection Back: normal inspection Skin: normal color, warm/dry Progress/Results/Core Measures Results/Orders Lab Results Laboratory Tests Test 12/07/18 06:30 Range/Units White Blood Count 5.9 4.3-11.0 10^3/uL Red Blood Count 3.89 L 4.35-5.85 10^6/uL Hemoglobin 11.0 L 13.3-17.7 G/DL Hematocrit 35 L 40-54 % Mean Corpuscular Volume 89 80-99 FL Mean Corpuscular Hemoglobin 28 25-34 PG Mean Corpuscular Hemoglobin Concent 32 32-36 G/DL Red Cell Distribution Width 14.9 H 10.0-14.5 % Platelet Count 252 130-400 10^3/uL Mean Platelet Volume 8.7 7.4-10.4 FL Neutrophils (%) (Auto) 53 42-75 % Lymphocytes (%) (Auto) 29 12-44 % Monocytes (%) (Auto) 13 H 0-12 % Eosinophils (%) (Auto) 4 0-10 % Basophils (%) (Auto) 1 0-10 % Neutrophils # (Auto) 3.2 1.8-7.8 X 10^3 Lymphocytes # (Auto) 1.7 1.0-4.0 X 10^3 Monocytes # (Auto) 0.8 0.0-1.0 X 10^3 Eosinophils # (Auto) 0.2 0.0-0.3 10^3/uL Basophils # (Auto) 0.1 0.0-0.1 10^3/uL Sodium Level 144 135-145 MMOL/L Potassium Level 4.0 3.6-5.0 MMOL/L Chloride Level 108 H 98-107 MMOL/L Carbon Dioxide Level 27 21-32 MMOL/L Anion Gap 9 5-14 MMOL/L Blood Urea Nitrogen 17 7-18 MG/DL Creatinine 0.78 0.60-1.30 MG/DL Estimat Glomerular Filtration Rate > 60 BUN/Creatinine Ratio 22 Glucose Level 87 70-105 MG/DL Calcium Level 8.8 8.5-10.1 MG/DL Corrected Calcium 9.1 8.5-10.1 MG/DL Magnesium Level 2.0 1.6-2.4 MG/DL Total Bilirubin 0.2 0.1-1.0 MG/DL Aspartate Amino Transf (AST/SGOT) 23 5-34 U/L Alanine Aminotransferase (ALT/SGPT) 18 0-55 U/L Alkaline Phosphatase 66 40-136 U/L Total Protein 6.2 L 6.4-8.2 GM/DL Albumin 3.6 3.2-4.5 GM/DL My Orders Orders - MICA JACOBSON MD Cbc With Automated Diff (12/07/18 06:22) Comprehensive Metabolic Panel (12/07/18 06:22) Magnesium (12/07/18 06:22) Ua Culture If Indicated (12/07/18 06:22) Ns Iv 1000 Ml (Sodium Chloride 0.9%) (12/07/18 06:30) Magnesium 1 Gm/100 Ml Ivpb (Magnesium Conroy (12/07/18 06:30) Vital Signs/I&O 12/07/18 06:07 Temp 97.7 Pulse 66 Resp 20 B/P (MAP) 124/70 (88) Pulse Ox 94 Progress Progress Note : Time: 08:08 Progress Note The patient was treated with 2 L of normal saline and 2 g of mag sulfate IV. Patient laboratory evaluation was essentially unremarkable. The patient stated it is muscle cramps and began to haris as he had arrived in the emergency department. He had no further leg cramps during his evaluation treatment in the emergency department. Departure Impression Primary Impression: Muscle cramps Disposition: 01 HOME, SELF-CARE Condition: Improved Departure-Patient Inst. Decision time for Depature: 08:09 Referrals: LINDA ANDRADE MD (PCP/Family) Primary Care Physician Patient Instructions: Muscle Spasms (DC) Add. Discharge Instructions: Follow-up the Dr. Andrade on Monday. Magnesium orally with electrolyte fluids over the weekend. Return if you have any further problems or questions. MICA JACOBSON MD Dec 07, 2018 06:25
[2018-12-07] MEDS: NS IV 1000 ML 1,000 ML IV SCH ×2 (06:37→07:49)
[2018-12-07 06:39] LABS: BASOPHILS # (AUTO) 0.1 10^3/uL (0.0-0.1); BASOPHILS % (AUTO) 1 % (0-10); EOSINOPHILS # (AUTO) 0.2 10^3/uL (0.0-0.3); EOSINOPHILS % (AUTO) 4 % (0-10); HEMATOCRIT 35 % (40-54); LYMPHOCYTES # (AUTO) 1.7 X 10^3 (1.0-4.0); LYMPHOCYTES % (AUTO) 29 % (12-44); MEAN CORPUSCULAR HEMOGLOBIN 28 PG (25-34); MEAN CORPUSCULAR HGB CONC 32 G/DL (32-36); MEAN CORPUSCULAR VOLUME 89 FL (80-99); MEAN PLATELET VOLUME 8.7 FL (7.4-10.4); MONOCYTES # (AUTO) 0.8 X 10^3 (0.0-1.0); MONOCYTES % (AUTO) 13 % (0-12); NEUTROPHILS # (AUTO) 3.2 X 10^3 (1.8-7.8); NEUTROPHILS % (AUTO) 53 % (42-75); PLATELET COUNT 252 10^3/uL (130-400); RED CELL DISTRIBUTION WIDTH 14.9 % (10.0-14.5); WHITE BLOOD COUNT 5.9 10^3/uL (4.3-11.0)
[2018-12-07] MEDS: MAGNESIUM 1 GM/100 ML IVPB 100 ML IV SCH ×2 (06:39→07:49)
[2018-12-07 06:55] LABS: ALANINE AMINOTRANSFERASE 18 U/L (0-55); ALBUMIN 3.6 GM/DL (3.2-4.5); ALKALINE PHOSPHATASE 66 U/L (40-136); BILIRUBIN,TOTAL 0.2 MG/DL (0.1-1.0); BUN/CREATININE RATIO 22; CALCIUM 8.8 MG/DL (8.5-10.1); CARBON DIOXIDE 27 MMOL/L (21-32); CHLORIDE 108 MMOL/L (98-107); CREATININE SERUM 0.78 MG/DL (0.60-1.30); GFR ESTIMATED > 60; GLUCOSE 87 MG/DL (70-105); SODIUM 144 MMOL/L (135-145); TOTAL PROTEIN 6.2 GM/DL (6.4-8.2)
[2018-12-07 08:55] VITALS: BP 120/64
== END 2018-12-07 08:55 | disposition home or self-care (01) ==
LOC: EDUNIT# 06:03 → ER 06:05
DX: R25.2 Cramp and spasm (principal); J45.909 Unspecified asthma, uncomplicated; I10 Essential (primary) hypertension; E78.00 Pure hypercholesterolemia, unspecified; N40.0 Benign prostatic hyperplasia without lower urinary tract symptoms; K21.9 Gastro-esophageal reflux disease without esophagitis; M81.0 Age-related osteoporosis without current pathological fracture; M06.9 Rheumatoid arthritis, unspecified; F41.9 Anxiety disorder, unspecified; F43.10 Post-traumatic stress disorder, unspecified; F32.9 Major depressive disorder, single episode, unspecified; Z87.19 Personal history of other diseases of the digestive system; Z88.8 Allergy status to other drugs, medicaments and biological substances; Z87.891 Personal history of nicotine dependence
CPT/HCPCS: 36415; 80053; 83735; 85025; 96361; 96365; 96366

== ENCOUNTER → 2019-01-31 | Outpatient (CLI) | payer MEDICARE, OTHER ==
--- NOTE | 2019-01-31 08:54 | Diagnostic Imaging Report ---
PROCEDURE: CT chest without contrast. TECHNIQUE: Multiple contiguous axial images were obtained through the chest without the use of intravenous contrast. Auto Exposure Controls were utilized during the CT exam to meet ALARA standards for radiation dose reduction. INDICATION: Cough. COMPARISON: No prior CT chest studies are available for comparison. FINDINGS: No axillary lymphadenopathy is seen. Hilar and mediastinal evaluation is limited without intravenous contrast. Mildly prominent AP window node is seen measuring 2.3 x 1.4 cm. There are coronary arterial calcifications present. No pericardial or pleural fluid is seen. There is a large hiatal hernia noted. No parenchymal mass is seen. There is some minimal scarring or atelectasis in the left lower lobe. Upper abdomen is unremarkable apart from a probable cyst involving the upper pole of the right kidney. IMPRESSION: Essentially unremarkable noncontrast CT of the chest apart from a mildly prominent mediastinal lymph node in the AP window. No pulmonary infiltrates, nodules or masses are seen. Note is made of a large hiatal hernia. Dictated by: Dictated on workstation # [id number]
== END ==
LOC: RAD 08:02
PROVIDERS: ATTEND Family Medicine
DX: K44.9 Diaphragmatic hernia without obstruction or gangrene (principal); R06.02 Shortness of breath; R04.2 Hemoptysis
CPT/HCPCS: 71250

== ENCOUNTER 2019-04-25 21:31 | Emergency (ER) | payer MEDICARE, OTHER ==
[~2019-04-25 21:31] MED LIST changes: +OMEP-280 PO; -OMEP20CA13 PO; -TRAM50TA2 PO; +TRM50T PO
[2019-04-25 22:26] LABS: BASOPHILS % (AUTO) 1 % (0-10); EOSINOPHILS # (AUTO) 0.3 10^3/uL (0.0-0.3); EOSINOPHILS % (AUTO) 5 % (0-10); HEMATOCRIT 38 % (40-54); LYMPHOCYTES # (AUTO) 1.1 X 10^3 (1.0-4.0); LYMPHOCYTES % (AUTO) 19 % (12-44); MEAN CORPUSCULAR HEMOGLOBIN 28 PG (25-34); MEAN CORPUSCULAR HGB CONC 32 G/DL (32-36); MEAN CORPUSCULAR VOLUME 88 FL (80-99); MEAN PLATELET VOLUME 9.5 FL (7.4-10.4); MONOCYTES # (AUTO) 0.6 X 10^3 (0.0-1.0); MONOCYTES % (AUTO) 10 % (0-12); NEUTROPHILS % (AUTO) 66 % (42-75); PLATELET COUNT 224 10^3/uL (130-400); RED CELL DISTRIBUTION WIDTH 15.1 % (10.0-14.5); WHITE BLOOD COUNT 6.1 10^3/uL (4.3-11.0)
[2019-04-25 22:35] LABS: BILIRUBIN,URINE NEGATIVE (NEGATIVE); CLARITY,URINE CLEAR; COLOR,URINE YELLOW; GLUCOSE, URINE (UA) NEGATIVE (NEGATIVE); KETONES,URINE NEGATIVE (NEGATIVE); LEUKOCYTE ESTERASE ,URINE NEGATIVE (NEGATIVE); NITRITE,URINE NEGATIVE (NEGATIVE); PH,URINE 5.5 (5-9); PROTEIN,URINE NEGATIVE (NEGATIVE)
[2019-04-25 22:37] LABS: INR 0.9 (0.8-1.4)
[2019-04-25 22:46] LABS: BACTERIA,URINE TRACE /HPF; WBC,URINE 0-2 /HPF
[2019-04-25 22:49] LABS: ALANINE AMINOTRANSFERASE 30 U/L (0-55); ALBUMIN 4.3 GM/DL (3.2-4.5); ALKALINE PHOSPHATASE 74 U/L (40-136); BILIRUBIN,TOTAL 0.2 MG/DL (0.1-1.0); BUN/CREATININE RATIO 18; CALCIUM 9.4 MG/DL (8.5-10.1); CARBON DIOXIDE 23 MMOL/L (21-32); CHLORIDE 106 MMOL/L (98-107); GFR ESTIMATED > 60; GLUCOSE 115 MG/DL (70-105); MAGNESIUM 2.2 MG/DL (1.6-2.4); SALICYLATE < 5.0 MG/DL (5.0-20.0); SODIUM 141 MMOL/L (135-145); TOTAL PROTEIN 7.3 GM/DL (6.4-8.2)
[2019-04-25 22:50] LABS: ACETAMINOPHEN < 10 UG/ML (10-30)
[2019-04-25 22:54] LABS: AMPHETAMINE SCREEN, URINE NEGATIVE (NEGATIVE); BARBITURATE SCREEN URINE NEGATIVE (NEGATIVE); BENZODIAZEPINES SCREEN URINE NEGATIVE (NEGATIVE); CANNABINOID SCREEN, URINE NEGATIVE (NEGATIVE); COCAINE SCREEN URINE NEGATIVE (NEGATIVE); METHADONE STAT NEGATIVE (NEGATIVE); METHAMPHETAMINE SCREEN URINE S NEGATIVE (NEGATIVE); OPIATE SCREEN URINE POSITIVE (NEGATIVE); OXYCODONE STAT NEGATIVE (NEGATIVE); PROPOXYPHENE STAT NEGATIVE (NEGATIVE); TRICYCLIC ANTIDEPRESSANTS SCRE NEGATIVE (NEGATIVE)
[2019-04-25] MEDS ORDERED: GUAI1TBM19 PO (23:09)
[2019-04-25] MEDS ORDERED: METH4TAB PO (23:09)
[2019-04-25] MEDS ORDERED: CEFD300C3 PO (23:09)
--- NOTE | 2019-04-25 23:10 | ED General ---
General Chief Complaint: Cough/Cold/Flu Symptoms Stated Complaint: LEG PAIN,CONGESTED,SOB Nursing Triage Note: Pt amb to room #7 with c/o cough, congestion, constipation, SOA, et chronic pain to bilat lower extremities. Pt reports intermittent symptoms since 04/22/19. Pt denies CP or fever. Reports hx COPD. Nursing Sepsis Screen: No Definite Risk Source of Information: Patient (GIVES MUCH CONFLICTING INFORMATION, AND IS POOR/VAGUE AND DIFFICULT HISTORIAN), Spouse (SHE IS LIMITED HISTORIAN AND DOES NOT OFFER MUCH ADDITIONAL INFORMATION) History of Present Illness Date Seen by Provider: Apr 25, 2019 Time Seen by Provider: 21:55 Initial Comments PT ARRIVES VIA POV FROM HOME PT WITH MULTITUDE OF COMPLAINTS, BUT PT TALKS NON-STOP AND IS EXTREMELY DIFFICULT TO KEEP PT ON SUBJECT. PT ALSO REPEATEDLY GIVES CONFLICTING INFORMATION PT COMPLETELY FIXATED ON HIS HYDROCODONE, WHICH HE HAS BEEN TAKING FOR MANY YEARS, AND HIS CHRONIC BILATERAL LEG COMPLAINTS--RIGHT> LEFT. NONE OF WHICH ARE NEW ISSUES STATES HE RAN OUT OF HIS HYDROCODONE THE FIRST OF APRIL, STATING DR. CRAWFORD WAS PRESCRIBING THEM AND HE HAS RETIRED, AND PT HAS NOT ESTABLISHED WITH A NEW DR YET--THEN LATER STATES "I GOT STOCKED BACK UP ON THEM A COUPLE OF WEEKS AGO" --STATES HE GOT SOME FROM HIS 'S FRIEND. THEN LATER STATES HE HASN'T HAD ANY FOR A FEW DAYS, THEN LATER STATES THAT HE HAS BEEN TAKING THEM EVERY DAY, AND "HAS PLENTY NOW" PT REFUSES TO STOP TALKING ABOUT THESE ISSUES, YET STATES THAT HIS LEGS ARE NOT HURTING HIM RIGHT NOW. NO SWELLING TO LEGS NO PARESTHESIAS OR MOTOR DEFICITS UNABLE TO GET ANY OTHER SPECIFIC COMPLAINTS OR THE ACTUAL REASON WHY HE IS HERE TONIGHT. ONLY ON DIRECT QUESTIONING, PT REPORTS THE FOLLOWING: -SHORTNESS OF BREATH--ONGOING PROBLEM, HAS COPD, HAS INHALER AND NEBULIZER. STATES HE HAS BEEN USING HIS INHALER MORE OVER THE LAST FEW DAYS, AND USED NEBULIZER TONIGHT, 2 HOURS AGO, FOR THE FIRST TIME IN A LONG TIME. THEN PT LATER STATES HE HAS NOT BEEN HAVING ANY PROBLEMS BREATHING AT ALL LATELY -OCCASIONALLY PRODUCTIVE COUGH AND CONGESTION X 3 DAYS--CLEAR SPUTUM -NO FEVER, SWEATS OR CHILLS -NO CHEST PAIN -C/O CONSTIPATION, BUT HAD A NORMAL BM TONIGHT. NO NAUSEA/VOMITING OR ABDOMINAL PAIN PCP: DR. CRAWFORD, WHO RECENTLY RETIRED. 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 SHE STATES THAT HIS BEHAVIOR IS ODD AND UNLIKE HIM Home Medications Albuterol Sulfate 1 Puff Puff, 2 PUFF IH QID PRN for SHORTNESS OF BREATH, (Reported) 1 PUFF = 90 MCG Albuterol Sulfate 2.5 Mg/3 Ml Vial.neb, 2.5 MG IH Q4H PRN for SHORTNESS OF BREATH, (Reported) Amlodipine Besylate/Benazepril 1 Each Capsule, 1 CAP PO DAILY, (Reported) Atorvastatin Calcium 20 Mg Tablet, 10 MG PO HS, (Reported) TAKES 1/2 OF A (20 MG) TABLET Budesonide/Formoterol Fumarate 10.2 Gm Hfa.aer.ad, 2 PUFF IH BID, (Reported) Carboxymethylcellulos/Glycerin 10 Ml Drops.gel, 1 DROP OU PRN PRN for DRY EYES, (Reported) Cefdinir 300 Mg Capsule, 300 MG PO BID Prescribed by: CB VALENCIA on 04/25/192308 Folic Acid 1 Mg Tablet, 1 MG PO DAILY, (Reported) Guaifenesin/Dextromethorphan 1 Each Tbmp.12hr, 1 EACH PO BID Prescribed by: CB VALENCIA on 04/25/192308 Methylprednisolone 4 Mg Tab.ds.pk, 4 MG PO UD Prescribed by: CB VALENCIA on 06/30/182354 Methylprednisolone 4 Mg Tab.ds.pk, 4 MG PO UD Prescribed by: CB VALENCIA on 04/25/192308 Mineral Oil/Petrolatum,White 3.5 Gm Oint...g., OU PRN PRN for DRY EYES, (Reported) ALTERNATES WITH REFRESH GEL DROPS Multivitamin 1 Each Tablet, 2 TAB PO DAILY, (Reported) Omeprazole 20 Mg Capsule.dr, 20 MG PO BID, (Reported) Terazosin HCl 2 Mg Capsule, 2 MG PO BID, (Reported) Patient Home Medication List Home Medication List Reviewed: Yes Review of Systems Review of Systems Constitutional: no symptoms reported; No chills, No diaphoresis, No fever EENTM: no symptoms reported Respiratory: see HPI, cough, short of breath Cardiovascular: no symptoms reported; No chest pain, No edema, No palpitations Gastrointestinal: see HPI; No abdominal pain; constipation; No diarrhea, No loss of appetite, No nausea, No vomiting Genitourinary: no symptoms reported Musculoskeletal: see HPI, other (HAS CHRONIC BACK PAIN, BUT DOES NOT C/O BACK PAIN AT THIS TIME) Skin: no symptoms reported Psychiatric/Neurological: No Symptoms Reported; Denies Headache, Denies Numbness, Denies Paresthesia, Denies Tingling, Denies Weakness Hematologic/Lymphatic: No Symptoms Reported Immunological/Allergic: no symptoms reported Past Bmboulf-Knoucz-Hgpyqd Hx Past Med/Social Hx: Reviewed and Corrections made Patient Social History Alcohol Use: Occasionally Uses Number of Drinks Today: AA Alcohol Beverage of Choice: Beer Recreational Drug Use: No Smoking Status: Former Smoker Type Used: Cigarettes Former Smoker, Quit: Apr 03, 1994 2nd Hand Smoke Exposure: No Recent Foreign Travel: No Contact w/Someone Who Travel: No Recent Infectious Disease Expo: No Recent Hopitalizations: No Immunizations Up To Date Date of Pneumonia Vaccine: Mar 31, 2014 Seasonal Allergies Seasonal Allergies: Yes Past Medical History Surgeries: Yes (BOWEL RESECTION;COLONOSCOPIES;HIATAL HERNIA REPAIR & INCISIONAL HERNIA REPA) Abdominal, Bowel Surgery, Orthopedic, Tonsillectomy Respiratory: Yes (ALLERGIES, HX ASTHMA) Asthma, COPD Currently Using CPAP: No Currently Using BIPAP: No Cardiac: Yes High Cholesterol, Hypertension Neurological: No Reproductive Disorders: No Sexually Transmitted Disease: No HIV/AIDS: No Genitourinary: Yes Benign Prostatic Hyperpl Gastrointestinal: Yes (COLON RESECTION; HIATAL AND INCISIONAL HERNIA REPAIRS; EGD'S/COLONOSCOPIES) Abdominal Hernia, Colitis, Gastroesophageal Reflux, Diverticulosis, Hemorrhoids, Hiatal Hernia Musculoskeletal: Yes (RESTLESS LEG SYNDROME; CHRONIC BILATERAL LEG PAIN; CH RONIC GENERALIZED PAIN) Osteoporosis, Arthritis, Rheumatoid Arthritis, Chronic Back Pain Endocrine: No HEENT: Yes Cataract Hearing Impairment: Denies Cancer: No Psychosocial: Yes Anxiety, PTSD, Depression Integumentary: No Blood Disorders: No Family Medical History No Pertinent Family Hx PSH: LIPOMAS REMOVED COLONOSCOPIES EGD'S HIATAL HERNIA REPAIR WITH INCISIONAL HERNIA REPAIR COLON RESECTION FOR DIVERTICULITIS Physical Exam Vital Signs Vital Signs - First Documented Capillary Refill : Greater Than 3 Seconds Height, Weight, BMI Height: 6'1.00" Weight: 170lbs. 0.0oz. 77.641916qt; 25.3 BMI Method:Stated General Appearance: No Apparent Distress, WD/WN, Other (NO COUGH, NO DYSPNEA, TALKS NON-STOP AT LENGTH WITHOUT DIFFICULTY. DOES NOT APPEAR TO BE IN ANY DISCOMFORT OR DISTRESS OR TO BE ILL) HEENT: PERRL/EOMI Neck: Full Range of Motion, Normal Inspection, Non Tender, Supple Respiratory: Normal Breath Sounds, No Accessory Muscle Use, No Respiratory Distress Cardiovascular: Regular Rate, Rhythm, No Edema, No JVD, Normal Peripheral Pulses, Systolic Murmur (3-4/6 ) Gastrointestinal: Non Tender, Soft Back: No CVA Tenderness Extremity: Normal Capillary Refill, Normal Inspection, Normal Range of Motion, Non Tender, No Calf Tenderness, No Pedal Edema Neurologic/Psychiatric: Alert, Oriented x3 (?LIMITED MEMORY??), No Motor/Sensory Deficits, 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 Norm as Tested Skin: Normal Color, Warm/Dry; No Rash Focused Exam Lactate Level 04/25/19 22:46: Lactic Acid Level 1.00 Lactic Acid Level Laboratory Tests Test 04/25/19 22:46 Lactic Acid Level 1.00 MMOL/L (0.50-2.00) Progress/Results/Core Measures Suspected Sepsis Recent Fever Within 48 Hours: No Infection Criteria Present: Suspected New Infection New/Unexplained Altered Menta: No Sepsis Screen: No Definite Risk SIRS Temperature: Pulse: 69 Respiratory Rate: 18 Laboratory Tests 04/25/19 22:10: White Blood Count 6.1 Blood Pressure 120 /68 Mean: 85 04/25/19 22:46: Lactic Acid Level 1.00 Laboratory Tests 04/25/19 22:10: Creatinine 0.90, INR Comment 0.9, Platelet Count 224, Total Bilirubin 0.2 Results/Orders Lab Results Laboratory Tests Test 04/25/19 22:10 04/25/19 22:26 04/25/19 22:46 Range/Units White Blood Count 6.1 4.3-11.0 10^3/uL Red Blood Count 4.27 L 4.35-5.85 10^6/uL Hemoglobin 12.0 L 13.3-17.7 G/DL Hematocrit 38 L 40-54 % Mean Corpuscular Volume 88 80-99 FL Mean Corpuscular Hemoglobin 28 25-34 PG Mean Corpuscular Hemoglobin Concent 32 32-36 G/DL Red Cell Distribution Width 15.1 H 10.0-14.5 % Platelet Count 224 130-400 10^3/uL Mean Platelet Volume 9.5 7.4-10.4 FL Neutrophils (%) (Auto) 66 42-75 % Lymphocytes (%) (Auto) 19 12-44 % Monocytes (%) (Auto) 10 0-12 % Eosinophils (%) (Auto) 5 0-10 % Basophils (%) (Auto) 1 0-10 % Neutrophils # (Auto) 4.0 1.8-7.8 X 10^3 Lymphocytes # (Auto) 1.1 1.0-4.0 X 10^3 Monocytes # (Auto) 0.6 0.0-1.0 X 10^3 Eosinophils # (Auto) 0.3 0.0-0.3 10^3/uL Basophils # (Auto) 0.0 0.0-0.1 10^3/uL Prothrombin Time 13.0 12.2-14.7 SEC INR Comment 0.9 0.8-1.4 Activated Partial Thromboplast Time 32 24-35 SEC Sodium Level 141 135-145 MMOL/L Potassium Level 4.0 3.6-5.0 MMOL/L Chloride Level 106 98-107 MMOL/L Carbon Dioxide Level 23 21-32 MMOL/L Anion Gap 12 5-14 MMOL/L Blood Urea Nitrogen 16 7-18 MG/DL Creatinine 0.90 0.60-1.30 MG/DL Estimat Glomerular Filtration Rate > 60 BUN/Creatinine Ratio 18 Glucose Level 115 H 70-105 MG/DL Calcium Level 9.4 8.5-10.1 MG/DL Corrected Calcium 9.2 8.5-10.1 MG/DL Magnesium Level 2.2 1.6-2.4 MG/DL Total Bilirubin 0.2 0.1-1.0 MG/DL Aspartate Amino Transf (AST/SGOT) 32 5-34 U/L Alanine Aminotransferase (ALT/SGPT) 30 0-55 U/L Alkaline Phosphatase 74 40-136 U/L Troponin I < 0.028 <0.028 NG/ML B-Type Natriuretic Peptide 21.0 <100.0 PG/ML Total Protein 7.3 6.4-8.2 GM/DL Albumin 4.3 3.2-4.5 GM/DL Salicylates Level < 5.0 L 5.0-20.0 MG/DL Acetaminophen Level < 10 L 10-30 UG/ML Urine Color YELLOW Urine Clarity CLEAR Urine pH 5.5 5-9 Urine Specific [place] <=1.005 1.016-1.022 Urine Protein NEGATIVE NEGATIVE Urine Glucose (UA) NEGATIVE NEGATIVE Urine Ketones NEGATIVE NEGATIVE Urine Nitrite NEGATIVE NEGATIVE Urine Bilirubin NEGATIVE NEGATIVE Urine Urobilinogen 0.2 < = 1.0 MG/DL Urine Leukocyte Esterase NEGATIVE NEGATIVE Urine RBC (Auto) NEGATIVE NEGATIVE Urine RBC NONE /HPF Urine WBC 0-2 /HPF Urine Crystals NONE /LPF Urine Bacteria TRACE /HPF Urine Casts NONE /LPF Urine Mucus NEGATIVE /LPF Urine Culture Indicated NO Urine Opiates Screen POSITIVE H NEGATIVE Urine Oxycodone Screen NEGATIVE NEGATIVE Urine Methadone Screen NEGATIVE NEGATIVE Urine Propoxyphene Screen NEGATIVE NEGATIVE Urine Barbiturates Screen NEGATIVE NEGATIVE Ur Tricyclic Antidepressants Screen NEGATIVE NEGATIVE Urine Phencyclidine Screen NEGATIVE NEGATIVE Urine Amphetamines Screen NEGATIVE NEGATIVE Urine Methamphetamines Screen NEGATIVE NEGATIVE Urine Benzodiazepines Screen NEGATIVE NEGATIVE Urine Cocaine Screen NEGATIVE NEGATIVE Urine Cannabinoids Screen NEGATIVE NEGATIVE Lactic Acid Level 1.00 0.50-2.00 MMOL/L Micro Results Microbiology 04/25/19 Influenza Types A,B Antigen (ABIEL) - Final, Complete My Orders Orders - CB VALENCIA DO Influenza A And B Antigens (04/25/19 21:54) Ed Iv/Invasive Line Start (04/25/19 22:05) Ekg Tracing (04/25/19 22:05) Monitor-Rhythm Ecg Trace Only (04/25/19 22:05) Chest Pa/Lat (2 View) (04/25/19 22:05) Acetaminophen (04/25/19 22:05) BNP (04/25/19 22:05) Cbc With Automated Diff (04/25/19 22:05) Comprehensive Metabolic Panel (04/25/19 22:05) Drug Screen Stat (Urine) (04/25/19 22:05) Lactic Acid Analyzer (04/25/19 22:05) Magnesium (04/25/19 22:05) Protime With Inr (04/25/19 22:05) Partial Thromboplastin Time (04/25/19 22:05) Salicylate (04/25/19 22:05) Ua Culture If Indicated (04/25/19 22:05) Blood Culture (04/25/19 22:05) Troponin I (04/25/19 22:05) Ceftriaxone For Iv Use (Rocephin For I (04/25/19 23:15) Methylprednisolone Sod Succ (Solu-Medrol (04/25/19 23:15) Medications Given in ED Current Medications Medications Dose Ordered Sig/Jennifer Route Start Time Stop Time Status Last Admin Dose Admin Ceftriaxone Sodium 1000 mg/ Sterile Water 10 ml @ 200 mls/hr ONCE ONCE IV 04/25/19 23:15 04/25/19 23:17 DC 04/25/19 23:17 200 MLS/HR Methylprednisolone Sodium Succinate 125 mg ONCE ONCE IVP 04/25/19 23:15 04/25/19 23:16 DC 04/25/19 23:16 125 MG Vital Signs/I&O 04/25/19 04/25/19 04/25/19 21:49 21:49 23:25 Temp 37.1 37.1 Pulse 69 61 Resp 18 20 B/P (MAP) 120/68 (85) 143/81 (85) Pulse Ox 98 98 O2 Delivery Room Air Room Air Room Air Capillary Refill : Greater Than 3 Seconds Blood Pressure Mean: 85 Progress Note : Progress Note PT HAD NO COMPLAINTS FOR REMAINDER OF ER STAY NO COUGH OR DYSPNEA AT ANY TIME NO COMPLAINT OF PAIN ANYWHERE VITALS STABLE ECG Initial ECG Impression Date: Apr 25, 2019 Initial ECG Impression Time: 22:18 Initial ECG Rate: 57 Initial ECG Rhythm: Normal Sinus (PAC'S) Diagnostic Imaging Comments CXR--? RUL INFILTRATE /ATELECTASIS ? PENDING RADIOLOGIST REVIEW Reviewed: Reviewed by Me Departure Impression Primary Impression: COPD exacerbation Additional Impression: POSSIBLE PNEUMONIA Disposition: 01 HOME, SELF-CARE Condition: Stable Departure-Patient Inst. Referrals: LINDA CRAWFORD MD (PCP/Family) Primary Care Physician Patient Instructions: Exacerbation of COPD (DC) Add. Discharge Instructions: USE YOUR ALBUTEROL NEBULIZER EVERY 4 HOURS NEEDED USE SYMBICORT INHALER DAILY PRESCRIBED TYLENOL 1 GRAM 4 TIMES A DAY NEEDED FOR PAIN OR FEVER CONTINUE YOUR REGULAR MEDICATIONS PRESCRIBED FOLLOW UP WITH OF EUSEBIO NEXT WEEK FOR FURTHER CARE All discharge instructions reviewed with patient and/or family. Voiced understanding. Scripts Guaifenesin/Dextromethorphan (Mucinex Dm ER 1,200-60 mg Tab) 1 Each Tbmp.12hr 1 EACH PO BID for 10 Days, #20 EA Prov: CB VALENCIA DO 04/25/19 Methylprednisolone (Medrol) 4 Mg Tab.ds.pk 4 MG PO UD, #1 PKG Prov: CB VALENCIA DO 04/25/19 Cefdinir (Cefdinir) 300 Mg Capsule 300 MG PO BID for FOR INFECTION, #20 CAP Prov: CB VALENCIA DO 04/25/19 CB VALENCIA DO Apr 25, 2019 23:10
[2019-04-25] MEDS ORDERED: cefTRIAXone FOR IV USE 1,000 MG in WATER (STERILE) FOR INJECTION 10 ML IV ONE (23:15)
[2019-04-25] MEDS ORDERED: methylPREDNISolone 125 MG (Solu-MEDROL) VIAL IVP ONE (23:15)
[2019-04-25 23:25] VITALS: BP 143/81
--- NOTE | 2019-04-26 07:18 | Diagnostic Imaging Report ---
EXAM: CHEST PA/LAT (2 VIEW) INDICATION: Dyspnea. COMPARISON: CT chest without contrast 01/31/2019. FINDINGS: Normal heart size and pulmonary vascularity. No dense consolidation, pleural effusion or pneumothorax. No acute osseous findings. IMPRESSION: No acute cardiopulmonary findings. Dictated by: Dictated on workstation # [id number]
== END 2019-04-25 23:25 | disposition home or self-care (01) ==
LOC: ER 21:31
DX: J44.1 Chronic obstructive pulmonary disease with (acute) exacerbation (principal); J45.909 Unspecified asthma, uncomplicated; I10 Essential (primary) hypertension; F41.9 Anxiety disorder, unspecified; F43.10 Post-traumatic stress disorder, unspecified; F32.9 Major depressive disorder, single episode, unspecified; E78.00 Pure hypercholesterolemia, unspecified; K21.9 Gastro-esophageal reflux disease without esophagitis; M06.9 Rheumatoid arthritis, unspecified; Z88.8 Allergy status to other drugs, medicaments and biological substances; Z87.891 Personal history of nicotine dependence; Z90.89 Acquired absence of other organs
CPT/HCPCS: 36415; 71046; 80053; 80306; 80329; 81000; 83605; 83735; 83880; 84484; 85025; 85610; 85730; 87040; 87804; 93005; 93041

== ENCOUNTER 2019-09-18 10:53 | Outpatient (RCR) | payer MEDICARE, OTHER ==
[~2019-09-18] VITALS: Ht 185 cm; Wt 72.7 kg
[~2019-09-18 10:53] MED LIST changes: +ALEN70TA5 PO; +ASCO-262 PO; +BACL10TA PO; +CEFD300C3 PO; +DULO60CA6 PO; +FERR325T5 PO; +FLUT1AER IH; +GUAI1TBM19 PO; +LIDO700A45 TP; -OMEP-280 PO; +OMEP20CA18 PO; +ZOLP10TA PO
[2019-09-20] MEDS ORDERED: PANT40TA2 PO (12:13)
== END 2019-09-18 11:03 | disposition home or self-care (01) ==
LOC: PREOP 10:53
PROVIDERS: ATTEND Surgery
DX: Z01.818 Encounter for other preprocedural examination (principal); Z11.59 Encounter for screening for other viral diseases
CPT/HCPCS: 87635

== ENCOUNTER 2019-09-20 11:48 | Day surgery (SDC) | payer MEDICARE, OTHER ==
[2019-09-20] VITALS (14 sets, daily range): BP systolic 101–146; BP diastolic 65–91
[~2019-09-20] VITALS: Ht 185 cm; Wt 72.7 kg
[2019-09-20] MEDS ORDERED: NS IV 500 ML 500 ML IV PRN (11:56)
[2019-09-20] MEDS ORDERED: HURRICAINE EXT TUBE (BENZOCAINE) XX PRN (12:00)
[2019-09-20] MEDS ORDERED: LIDOCAINE JELLY 2% 6 ML SYRINGE MM PRN (12:00)
[2019-09-20] MEDS ORDERED: fentaNYL INJECTION 100 MCG/2 ML AMP IVP ONE (12:00)
[2019-09-20] MEDS ORDERED: NS IV 500 ML 500 ML ONE (12:10)
--- NOTE | 2019-09-20 12:11 | Conscious Sedation/ASA ---
Conscious Sedation Pre-Proced Time 12:00 ASA Score 2 For ASA 3 and 4: Consider anesthesia and medical clearance. Also, for patients with a history of failed moderate sedation consider anesthesia. Airway Lungs Heart ASA score ASA 1: a normal healthy patient ASA 2: a patient with a mild systemic disease (mid diabetes, controlled hypertension, obesity ASA 3: a patient with a severe systemic disease that limits activity (angina, COPD, prior Myocardial infarction) ASA 4: a patient with an incapacitating disease that is a constant threat to life (CHF, renal failure) ASA 5: a moribund patient not expected to survive 24 hrs. (ruptured aneurysm) ASA 6: a declared brain- patient whose organs are being harvested. For emergent operations, add the letter E after the classification Mallampati Classification Grade 2 Sedation Plan Analgesia, Amnesia, Plan communicated to team members, Discussed options with patient/fam, Discussed risks with patient/fam The patient is an appropriate candidate to undergo the planned procedure, sedation, and anesthesia. The patient immediately re-assessed prior to indication. ROMAIN LOFTON MD Sep 20, 2019 12:11
--- NOTE | 2019-09-20 12:12 | Progress Note-Pre Operative ---
Pre-Operative Progress Note H&P Reviewed The H&P was reviewed, patient examined and no changes noted. Date Seen by Provider: Sep 20, 2019 Time Seen by Provider: 12:00 Date H&P Reviewed: Sep 20, 2019 Time H&P Reviewed: 12:00 Pre-Operative Diagnosis: GERD,change bowel habits ROMAIN LOFTON MD Sep 20, 2019 12:12
[2019-09-20] MEDS ORDERED: PANT40TA2 PO (12:13)
--- NOTE | 2019-09-20 12:14 | Discharge Inst-Surgical ---
D/C Lap Instructions-ROLLY New, Converted, or Re-Newed RX: RX on Chart Follow Up Activity as tolerated High Fiber Diet 25g or more per day Avoid Alcohol, Caffeine, Spicy Leeper and Acid foods. Drink 64 fluid oz or more of fluids per day. Symptoms to Report: Fever over 101 degree F, Nausea/Vomiting If any problems/questions: Contact your physician or go to Emergency Room ROMAIN LOFTON MD Sep 20, 2019 12:14
[2019-09-20] MEDS ORDERED: morphine INJ 10 MG/ML 1ML (SYR OR VIAL) IVP PRN ×2 (12:15)
[2019-09-20] MEDS ORDERED: HYDROcodone/APAP 5 MG/325 MG (LORTAB) TAB PO PRN (12:15)
[2019-09-20] MEDS ORDERED: ACETAMINOPHEN 325 MG TABLET PO PRN (12:15)
[2019-09-20] MEDS ORDERED: ONDANSETRON 4 MG/2 ML (SDV) Z0FRAN IVP PRN (12:15)
[2019-09-20] MEDS ORDERED: fentaNYL INJECTION 100 MCG/2 ML AMP ONE (12:49)
[2019-09-20] MEDS ORDERED: LIDOCAINE JELLY 2% 6 ML SYRINGE ONE (12:49)
[2019-09-20] MEDS ORDERED: HURRICAINE EXT TUBE (BENZOCAINE) ONE (12:49)
[2019-09-20] MEDS ORDERED: MIDAZOLAM 5 MG/5 ML (VERSED) VIAL ONE ×2 (12:49)
[2019-09-20] MEDS: MIDAZOLAM 5 MG/5 ML (VERSED) VIAL IV PRN ×4 (12:51→13:16)
[2019-09-20] MEDS ORDERED: METO5TAB75 PO (13:56)
--- NOTE | 2019-09-20 13:57 | Progress Note-Post Operative ---
Post-Operative Progess Note Surgeon (s)/Ships Equipment Engineer (s) Surgeon ROMAIN LOFTON MD Ships Equipment Engineer: none Pre-Operative Diagnosis GERD,change bowel habits Post-Operative Diagnosis reflux esophagitis(stage 2), moderate distal esophageal stricture, gastroparesis, mild gastritis. chonic mild stage 2 ext and int hemorrhoids, mild descending colonic diverticulosis. Procedure & Operative Findings Date of Procedure 09/20/19 Procedure Performed/Findings EGD with bx and balloon dilatation. colonoscopy. Anesthesia Type cs Estimated Blood Loss Estimated blood loss (mL): minimal Specimens/Packing Specimens Removed ge jxn, antrum ROMAIN LOFTON MD Sep 20, 2019 13:57
--- NOTE | 2019-09-20 18:24 | OPERATIVE REPORT ---
DATE OF SERVICE: 09/20/2019 ATTENDING PRIMARY CARE PHYSICIAN: Zayra Carpenter MD PREOPERATIVE DIAGNOSES: Gastroesophageal reflux disease, dysphagia, change in bowel habits. POSTOPERATIVE DIAGNOSES: Reflux esophagitis stage II, distal esophageal stricture, recurrent hiatal hernia 5 cm in size, gastroparesis. No distal obstructions. Chronic stage II external and internal hemorrhoids, mild recurrent diverticulosis. PROCEDURE: EGD with biopsy and balloon dilatation, colonoscopy. SURGEON: Romain Lofton MD. ANESTHESIA: Conscious sedation. ESTIMATED BLOOD LOSS: Minimal. FINDINGS: Reflux esophagitis stage II, distal esophageal stricture, recurrent hiatal hernia 5 cm in size, gastroparesis. No distal obstructions. Chronic stage II external and internal hemorrhoids, mild recurrent diverticulosis. DISPOSITION: The patient tolerated the procedure well. INDICATIONS: The patient is a 74-year-old male who we have seen before in the past. He has a history of diverticulitis requiring a sigmoid colectomy. He states for the past 6 months, he did notice a change in bowel habits and having constipation and harder more well-formed stools and does also notice small amounts of red blood during a bowel movement, which was self-limited. He also has had dysphagia and recurrent gastroesophageal reflux disease. DESCRIPTION OF PROCEDURE: The patient was brought to the endoscopy suite, laid in left lateral decubitus position. After adequate IV pain and sedative medications and conscious sedation anesthesia, the mouthpiece was applied. The endoscope was placed in the mouth, visualizing the pharynx and hypopharyngeal region. Vocal cords, epiglottis and vallecula identified and appeared to be normal. The endoscope was then gently intubated. Esophageal opening and esophagus insufflated. The endoscope was then advanced to the first, second and third portion of the esophagus at the level of the GE junction, reflux esophagitis stage II identified as well as a distal esophageal stricture identified. A biopsy was taken of the GE junction with visualization of good hemostasis. The endoscope was advanced in the stomach and endoscope retroflexed, visualizing a large recurrent hiatal hernia approximately 5 cm in size. The previous antireflux wrap appeared to be intact. There was some solid food substance within the stomach, most likely indicating some level of gastroparesis. There was a mild gastritis. Pylorus and duodenum appeared normal with no distal obstructions. Biopsy was taken of the antrum to rule out H. pylori with visualization of good hemostasis. We then proceeded with dilatation of distal esophageal stricture. The balloon was placed in the stomach and pulled back to the area of stricture. We first proceeded with a 2 atmospheres of pressure with mild resistance. We then slowly went to 3.5 atmospheres of pressure with moderate resistance and left this in place for approximately 60 seconds. This equated to approximately 18.5 cm in luminal diameter. We left this in place for approximately 60 seconds and then the balloon was desufflated and removed with visualization of good hemostasis as well as no mucosal tears. Endoscope was then slowly withdrawn while taking a second look and suctioning of residual air with no additional findings. Under the same anesthesia, we then proceeded with colonoscopy portion of procedure. A digital rectal examination was performed, which revealed chronic stage II external and internal hemorrhoids, not actively edematous or inflamed and no bleeding. Normal sphincter tone was felt and there were no palpable masses. The endoscope was then intubated and anus and rectum gently insufflated. The endoscope was then advanced through the valves of Mckenzie of the rectum with no polyps or any neoplasms identified. We then proceeded to prep. There was a pasty stool throughout the colon; however, this was irrigated and suctioned as well as possible. The endoscope was then advanced to the descending colon where a mild diverticulosis identified. There were no mucosal inflammatory changes to indicate any active diverticulitis. The endoscope was then advanced to the remainder of the descending, transverse and ascending colon to the cecum. These segments were normal. There were no polyps or any neoplasms identified. The endoscope was then slowly withdrawn while taking a second look and suctioning residual air with no additional findings. The patient tolerated the procedure well. We will recommend a high fiber diet with 30 grams of fiber daily as well as 64 fluid ounces of water daily to promote soft stools on a daily basis. We will have him follow up for followup colonoscopy once if he becomes symptomatic; however, he is not, then he may wait 10 years. Job ID: [id number] DocumentID: [id number] Dictated Date: 09/20/2019 13:35:42 Supervisor Multifocal [employer] Date: 09/20/2019 18:23:41 Dictated By: ROMAIN LOFTON MD MTDAdilson
== END 2019-09-20 14:10 | disposition home or self-care (01) ==
LOC: ENDO 11:48
PROVIDERS: ATTEND Surgery
DX: K21.0 Gastro-esophageal reflux disease with esophagitis (principal); K22.10 Ulcer of esophagus without bleeding; K22.2 Esophageal obstruction; K44.9 Diaphragmatic hernia without obstruction or gangrene; K31.84 Gastroparesis; K64.1 Second degree hemorrhoids; K57.30 Diverticulosis of large intestine without perforation or abscess without bleeding; R19.4 Change in bowel habit; Z87.19 Personal history of other diseases of the digestive system; Z86.010 Personal history of colon polyps; I10 Essential (primary) hypertension; E78.00 Pure hypercholesterolemia, unspecified; M06.9 Rheumatoid arthritis, unspecified; F41.9 Anxiety disorder, unspecified; F32.9 Major depressive disorder, single episode, unspecified; Z79.899 Other long term (current) drug therapy; Z87.891 Personal history of nicotine dependence; Z88.8 Allergy status to other drugs, medicaments and biological substances; K29.70 Gastritis, unspecified, without bleeding
CPT/HCPCS: 88305; 88312

== ENCOUNTER 2019-10-03 13:25 | Inpatient (IN) | payer MEDICARE, OTHER ==
[~2019-10-03] VITALS: Ht 185.4 cm; Wt 77.6 kg
[~2019-10-03 13:25] MED LIST changes: +METO5TAB75 PO; +PANT40TA2 PO
--- NOTE | 2019-10-03 13:42 | ED Abdominal Pain ---
General Stated Complaint: ABD PAIND Source of Information: Patient Exam Limitations: No Limitations History of Present Illness Date Seen by Provider: Oct 03, 2019 Time Seen by Provider: 13:40 Initial Comments To ER with reports of periumbilical abdominal pain. He has nausea and vomiting as well. No diarrhea. This began this morning upon awakening. He felt fine when he went to bed last night. No fever no chills. No history of abdominal surgeries. He did have a colonoscopy/EGD a few weeks ago he states. His last food intake was chocolate whoppers, watermelon and Mireya sugar cookies last night. Timing/Duration: 1-2 Days Severity/Quality: Moderate Location: Generalized Abdomen, Periumbilical Radiation: No Radiation Activities at Onset: None Associated Symptoms: Nausea/Vomiting Allergies and Home Medications Allergies Coded Allergies: budesonide (Verified Allergy, Severe, NUMB LIPS, 09/18/19) diphenhydramine (Verified Allergy, Severe, 09/18/19) formoterol (Verified Allergy, Severe, NUMB LIPS, 09/18/19) alprazolam (Verified Adverse Reaction, Intermediate, MENTAL MOOD CHANGE, 09/18/19) SIG OTHER SAID THE PATIENT GETS COMBATIVE,ANGRY AND VIOLENT. SHE STATES THAT HIS BEHAVIOR IS ODD AND UNLIKE HIM Home Medications Albuterol Sulfate 1 Puff Puff, 2 PUFF IH QID PRN for SHORTNESS OF BREATH, (Reported) 1 PUFF = 90 MCG Albuterol Sulfate 2.5 Mg/3 Ml Vial.neb, 2.5 MG IH Q4H PRN for SHORTNESS OF BREATH, (Reported) Alendronate Sodium 70 Mg Tablet, 70 MG PO WEEK, (Reported) Amlodipine Besylate/Benazepril 1 Each Capsule, 1 CAP PO DAILY, (Reported) Ascorbate Calcium 500 Mg Tablet, 500 MG PO DAILY, (Reported) Atorvastatin Calcium 20 Mg Tablet, 10 MG PO HS, (Reported) TAKES 1/2 OF A (20 MG) TABLET Baclofen 10 Mg Tablet, 10 MG PO DAILY, (Reported) Duloxetine HCl 60 Mg Capsule.dr, 60 MG PO DAILY, (Reported) Ferrous Sulfate 325 Mg Tablet.dr, 325 MG PO DAILY, (Reported) Fluticasone/Vilanterol 1 Each Blst.w.dev, 1 EACH IH DAILY, (Reported) Folic Acid 1 Mg Tablet, 1 MG PO DAILY, (Reported) Lidocaine 1 Each Adh..patch, 1 EACH TP Q12H PRN for Neuropathic pain, (Reported) 2 patches max for 12 hours, then 12 hours patch-free period. Methotrexate Sodium 2.5 Mg Tablet, 15 MG PO WEEK, (Reported) Metoclopramide HCl 5 Mg Tablet, 5 MG PO TID Prescribed by: JOSE DANIEL BLACK on 09/20/19 1356 Pantoprazole Sodium 40 Mg Tablet.dr, 40 MG PO DAILY Prescribed by: ROMAIN LOFTON on 09/20/19 1213 Terazosin HCl 2 Mg Capsule, 2 MG PO BID, (Reported) Zolpidem Tartrate 10 Mg Tablet, 10 MG PO HS, (Reported) Patient Home Medication List Home Medication List Reviewed: Yes Review of Systems Review of Systems Constitutional: see HPI EENTM: No Symptoms Reported Respiratory: No Symptoms Reported Cardiovascular: See HPI Gastrointestinal: See HPI, Abdominal Pain; Denies Diarrhea; Nausea, Vomiting Genitourinary: No Symptoms Reported Musculoskeletal: no symptoms reported Skin: no symptoms reported Psychiatric/Neurological: No Symptoms Reported Endocrine: No Symptoms Reported Hematologic/Lymphatic: No Symptoms Reported Past Vghuhqp-[id number]-Cgyelg Hx Patient Social History Alcohol Beverage of Choice: Beer Type Used: Cigarettes Former Smoker, Quit: Apr 03, 1994 2nd Hand Smoke Exposure: No Recent Foreign Travel: No Contact w/Someone Who Travel: No Recent Hopitalizations: No Immunizations Up To Date Date of Pneumonia Vaccine: Mar 31, 2014 Seasonal Allergies Seasonal Allergies: Yes Past Medical History Surgeries: Yes (BOWEL RESECTION;COLONOSCOPIES;HIATAL HERNIA REPAIR & INCISIONAL HERNIA REPA) Abdominal, Bowel Surgery, Orthopedic, Tonsillectomy Respiratory: Yes (ALLERGIES, HX ASTHMA) Asthma, COPD Currently Using CPAP: No Currently Using BIPAP: No Cardiac: Yes High Cholesterol, Hypertension Neurological: No Reproductive Disorders: No Sexually Transmitted Disease: No HIV/AIDS: No Genitourinary: Yes Benign Prostatic Hyperpl Gastrointestinal: Yes (COLON RESECTION; HIATAL AND INCISIONAL HERNIA REPAIRS; EGD'S/COLONOSCOPIES) Abdominal Hernia, Colitis, Gastroesophageal Reflux, Diverticulosis, Hemorrhoids, Hiatal Hernia Musculoskeletal: Yes (RESTLESS LEG SYNDROME; CHRONIC BILATERAL LEG PAIN; CHRONIC GENERALIZED PAIN) Osteoporosis, Arthritis, Rheumatoid Arthritis, Chronic Back Pain Endocrine: No HEENT: Yes (GLASSES, PARTIAL DENTURE) Cataract Loss of Vision: Denies Hearing Impairment: Denies Cancer: No Psychosocial: Yes Anxiety, PTSD, Depression Integumentary: No Blood Disorders: No Adverse Reaction/Blood Tranf: No (N/A) Family Medical History No Pertinent Family Hx PSH: LIPOMAS REMOVED COLONOSCOPIES EGD'S HIATAL HERNIA REPAIR WITH INCISIONAL HERNIA REPAIR COLON RESECTION FOR DIVERTICULITIS Physical Exam Vital Signs Vital Signs - First Documented 10/03/19 10/03/19 13:55 14:02 Temp 35.6 Pulse 79 Resp 18 B/P (MAP) 129/70 (89) Pulse Ox 98 O2 Delivery Nasal Cannula O2 Flow Rate 2.00 Capillary Refill : Height/Weight/BMI Height: 6'1.00" Weight: 170lbs. 0.0oz. 77.450344dd; 21.24 BMI Method:Stated General Appearance: WD/WN, no apparent distress HEENT: PERRL/EOMI, normal ENT inspection Respiratory: lungs clear, normal breath sounds, no respiratory distress, no accessory muscle use Cardiovascular: regular rate, rhythm, no murmur Gastrointestinal: normal bowel sounds, soft, tenderness Extremities: normal range of motion, non-tender Neurologic/Psychiatric: alert, normal mood/affect, oriented x 3 Skin: normal color, warm/dry Progress/Results/Core Measures Results/Orders Lab Results Laboratory Tests Test 10/03/19 13:30 Range/Units White Blood Count 11.0 4.3-11.0 10^3/uL Red Blood Count 4.30 L 4.35-5.85 10^6/uL Hemoglobin 12.4 L 13.3-17.7 G/DL Hematocrit 39 L 40-54 % Mean Corpuscular Volume 91 80-99 FL Mean Corpuscular Hemoglobin 29 25-34 PG Mean Corpuscular Hemoglobin Concent 32 32-36 G/DL Red Cell Distribution Width 14.9 H 10.0-14.5 % Platelet Count 313 130-400 10^3/uL Mean Platelet Volume 9.5 7.4-10.4 FL Neutrophils (%) (Auto) 84 H 42-75 % Lymphocytes (%) (Auto) 9 L 12-44 % Monocytes (%) (Auto) 6 0-12 % Eosinophils (%) (Auto) 2 0-10 % Basophils (%) (Auto) 0 0-10 % Neutrophils # (Auto) 9.2 H 1.8-7.8 X 10^3 Lymphocytes # (Auto) 0.9 L 1.0-4.0 X 10^3 Monocytes # (Auto) 0.7 0.0-1.0 X 10^3 Eosinophils # (Auto) 0.2 0.0-0.3 10^3/uL Basophils # (Auto) 0.0 0.0-0.1 10^3/uL Sodium Level 143 135-145 MMOL/L Potassium Level 4.9 3.6-5.0 MMOL/L Chloride Level 105 98-107 MMOL/L Carbon Dioxide Level 26 21-32 MMOL/L Anion Gap 12 5-14 MMOL/L Blood Urea Nitrogen 25 H 7-18 MG/DL Creatinine 0.88 0.60-1.30 MG/DL Estimat Glomerular Filtration Rate > 60 BUN/Creatinine Ratio 28 Glucose Level 168 H 70-105 MG/DL Calcium Level 9.6 8.5-10.1 MG/DL Corrected Calcium 9.3 8.5-10.1 MG/DL Total Bilirubin 0.3 0.1-1.0 MG/DL Aspartate Amino Transf (AST/SGOT) 33 5-34 U/L Alanine Aminotransferase (ALT/SGPT) 22 0-55 U/L Alkaline Phosphatase 73 40-136 U/L Total Protein 7.7 6.4-8.2 GM/DL Albumin 4.4 3.2-4.5 GM/DL Lipase 30 8-78 U/L My Orders Orders - CARISA HARDIN ASTROCHEMIST Cbc With Automated Diff (10/03/19 13:37) Comprehensive Metabolic Panel (10/03/19 13:37) Lipase (10/03/19 13:37) Ed Iv/Invasive Line Start (10/03/19 13:37) Ns Iv 1000 Ml (Sodium Chloride 0.9%) (10/03/19 13:45) Ondansetron Injection (Zofran Injectio (10/03/19 13:45) Fentanyl Injection (Sublimaze Injection (10/03/19 13:45) Ct Abdomen/Pelvis W (10/03/19 14:13) Iohexol Injection (Omnipaque 350 Mg/Ml 1 (10/03/19 14:15) Di Iv Start (Assessment) .IV start (10/03/19 14:15) Received Contrast (Hold Metformin- Contr (10/03/19 14:15) Ns (Ivpb) (Sodium Chloride 0.9% Ivpb Bag (10/03/19 14:15) Medications Given in ED Current Medications Medications Dose Ordered Sig/Jennifer Route Start Time Stop Time Status Last Admin Dose Admin Fentanyl Citrate 25 mcg ONCE ONCE IVP 10/03/19 13:45 10/03/19 13:46 DC 10/03/19 13:50 25 MCG Iohexol 100 ml ONCE ONCE IV 10/03/19 14:15 10/03/19 14:16 DC 10/03/19 14:35 92 ML Ondansetron HCl 8 mg ONCE ONCE IVP 10/03/19 13:45 10/03/19 13:46 DC 10/03/19 13:47 8 MG Sodium Chloride 100 ml ONCE ONCE IV 10/03/19 14:15 10/03/19 14:16 DC 10/03/19 14:36 80 ML Vital Signs/I&O 10/03/19 10/03/19 13:55 14:02 Temp 35.6 Pulse 79 Resp 18 B/P (MAP) 129/70 (89) Pulse Ox 98 98 O2 Delivery Nasal Cannula O2 Flow Rate 2.00 Departure Impression Primary Impression: SBO (small bowel obstruction) Disposition: HOME, SELF-CARE Condition: Stable Admissions Decision to Admit Reason: Admit from ER (General) Decision to Admit/Date: Oct 03, 2019 Time/Decision to Admit Time: 16:01 Departure-Patient Inst. Referrals: TITA LAINEZ MD (PCP) Primary Care Physician BRYANT CARRILLO (Family) Primary Care Physician CARISA HARDIN ASTROCHEMIST Oct 03, 2019 13:42
[2019-10-03] MEDS ORDERED: ONDANSETRON 4 MG/2 ML (SDV) Z0FRAN IVP ONE (13:45)
[2019-10-03] MEDS ORDERED: NS IV 1000 ML 1,000 ML IV SCH (13:45)
[2019-10-03] MEDS ORDERED: fentaNYL INJECTION 100 MCG/2 ML AMP IVP ONE (13:45)
[2019-10-03 13:47] LABS: BASOPHILS % (AUTO) 0 % (0-10); EOSINOPHILS # (AUTO) 0.2 10^3/uL (0.0-0.3); EOSINOPHILS % (AUTO) 2 % (0-10); HEMATOCRIT 39 % (40-54); HEMOGLOBIN 12.4 G/DL (13.3-17.7); LYMPHOCYTES # (AUTO) 0.9 X 10^3 (1.0-4.0); LYMPHOCYTES % (AUTO) 9 % (12-44); MEAN CORPUSCULAR HEMOGLOBIN 29 PG (25-34); MEAN CORPUSCULAR HGB CONC 32 G/DL (32-36); MEAN CORPUSCULAR VOLUME 91 FL (80-99); MEAN PLATELET VOLUME 9.5 FL (7.4-10.4); MONOCYTES # (AUTO) 0.7 X 10^3 (0.0-1.0); MONOCYTES % (AUTO) 6 % (0-12); NEUTROPHILS # (AUTO) 9.2 X 10^3 (1.8-7.8); NEUTROPHILS % (AUTO) 84 % (42-75); PLATELET COUNT 313 10^3/uL (130-400); RED CELL DISTRIBUTION WIDTH 14.9 % (10.0-14.5)
--- OUTSIDE RECORDS SUMMARY | 2019-10-03 13:59 | XMS REPORT | Clinical Summary ---
Author Author [facility] Organization [facility] Address Unknown Phone Unavailable Care Team Providers Care Equipment Maintenance Technician Name Role Phone Selvin Lara MD Unavailable Manjit Andrade MD PCP Roverto Villalta DO Unavailable Source Comments Some departments are not documenting in the electronic medical record. If you d o not see the information that you expected, contact Release of Information in [facility] [employer] Information Management department at [phone] for further assistan ce in locating additional records.[facility] Allergies Comments Active Allergy Reactions Severity Noted Date Dust UNKNOWN 11/16/2012 Alprazolam HALLUCINATION 11/16/2012 S Medications End Date Status Medication Sig Dispensed Refills Start Date Active HYDROcodone-acetaminophen Take 1 Tab by 0 (+) (VICODIN) 10-325 mg mouth every 6 tablet hours as needed. Active amLODIPine (NORVASC) 5 mg Take 5 mg by 0 tablet mouth daily. Active benazepril (LOTENSIN) 20 Take 20 mg by 0 mg tablet mouth daily. Active terazosin (HYTRIN) 2 mg Take 2 mg by 0 capsule mouth twice daily. Active omeprazole DR(+) Take 40 mg by 0 (PRILOSEC) 40 mg capsule mouth twice daily. Active alendronate (FOSAMAX) 70 Take 70 mg by 0 mg tablet mouth every 7 days. Active MULTIVITAMIN PO Take 2 Tabs 0 by mouth twice daily. Active other medication Eye drops, 2 0 drops to each eyes daily Active folic acid (FOLVITE) 1 mg Take 1 Tab by 90 Tab 1 tabletIndications: mouth daily. 3 Rheumatoid arthritis(714.0) Active methotrexate 2.5 mg Take 8 Tabs 32 Tab 5 tabletIndications: by mouth 3 Rheumatoid every 7 days. arthritis(714.0) Take only 10mg (4 tabs) first week only, if tolerated increase to 15mg daily. Active Problems Problem Noted Date OA (osteoarthritis) 12/21/2012 Rheumatoid arthritis(714.0) 12/21/2012 Encounter for long-term (current) use of other medica tions 12/21/2012 Chronic fatigue 11/16/2012 Osteoporosis with fracture 11/16/2012 Overview: Compression fracture in back. Polyarthralgia 11/16/2012 Insomnia 11/16/2012 Hypertension 11/16/2012 Elbow pain 11/16/2012 Hx of seasonal allergies 11/16/2012 Cataract 11/16/2012 Hiatal hernia 11/16/2012 Muscle cramps at night 11/16/2012 Immunizations Name Administration Dates Next Due Flu Vaccine Trivalent =>3 02/21/2013 Yo (Preservative Free) Family History Medical History Relation Name Comments Arthritis Brother Arthritis Father Arthritis Mother Arthritis Sister Arthritis Son Arthritis Son Relation Name Status Comments Brother Father Mother Sister Son Son Social History Date Tobacco Use Types Packs/Day Years Used Quit: 04/03/1969 Former Smoker Cigarettes 2 Smokeless Tobacco: Never Used Drinks/Week oz/Week Comments Alcohol Use occ Yes Sex Assigned at Date Recorded Not on file Industry Job Start Date Occupation Not on file Not on file Not on file Travel End Travel History Travel Start No recent travel history available. Last Filed Vital Signs Reading Time Taken Comments Vital Sign 115/76 04/04/2013 10:08 AM EXCEL SPECIALIST Blood Pressure 104 04/04/2013 10:51 AM EXCEL SPECIALIST Pulse 36.6 C (97.8 F) 04/04/2013 10:08 AM EXCEL SPECIALIST Temperature 18 04/04/2013 10:08 AM EXCEL SPECIALIST Respiratory Rate - - Oxygen Saturation - - Inhaled Oxygen Concentration 98.1 kg (216 lb 3.2 oz) 04/04/2013 10:08 AM EXCEL SPECIALIST with shoes Weight 179.6 cm (5' 10.7") 04/04/2013 10:08 AM EXCEL SPECIALIST Height 30.41 04/04/2013 10:08 AM EXCEL SPECIALIST Body Mass Index Plan of Treatment Health Maintenance Due Date Last Done Comments MEDICARE ANNUAL WELLNESS 1945 VISIT DTAP/TDAP VACCINES ( - 1963 Tdap) PHYSICAL (COMPREHENSIVE) 1963 EXAM COLORECTAL CANCER 1995 SCREENING SHINGLES RECOMBINANT 1995 VACCINE (1 of 2) ABDOMINAL AORTIC ANEURYSM 2010 SCREENING PNEUMONIA (PPSV23) 2010 VACCINE (1 of 1 - PPSV23) INFLUENZA VACCINE 01/02/2020 02/21/2013 HEPATITIS C SCREENING Completed 11/16/2012 Results Not on filefrom Last 3 Months Insurance Type Payer Benefit Subscriber ID Effective Phone Address Plan / Dates Group Medicare MEDICARE RAILROAD MEDICARE xxxxxxxxxx 2010 RAILROAD -Present PART A AND B Indemnity [facility] xxxxxxxxx 2012-P GENERIC resent Medicare MEDICARE MEDICARE xxxxxxxxxx 2010- PART A AND Present B [id number] Advance Directives Patient Communication Manager Explanation Type Date Recorded Advance 12/20/2012 11:06 AM Directive/DPOA
--- OUTSIDE RECORDS SUMMARY | 2019-10-03 14:00 | XMS REPORT | Encounter Summary ---
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 This section includes the names of all active insurance providers for the [place] Insurance Provider Type of Coverage Plan Name Start of Policy Co verage End of Policy Coverage Group Number Member ID Insurance Provider's Telephone N umber Policy Mcmullen's Name Patient's Relationship to Policy Mcmullen MEDICARE (WNR) MEDICARE (M) RR PART A Mar 03, 2010 RR PART A [id number] SOLITARIO CHEW PATIENT MEDICARE (WNR) MEDICARE (M) RR PART B Mar 03, 2010 RR PART B [id number] SOLITARIO CHEW PATIENT [facility] MEDIGAP PLAN F RAILROAD PLAN F Apr [id number] SOLITARIO CHEW PATIENT Selected Encounter This section includes the information on record at [place] for the Encounter. Date/Time Encounter Type Encounter Description Reason Provider Source May 16, 2019 09:00 AM Outpatient Encounter PRIMARY CARE/MEDICINE [facility]ONICA MCDONNELL IHE Encounter Template Text not used by [place] Assessments - Encounter Diagnoses No Data Provided for This Section Plan of Treatment: Future Appointments (+ 6 months) and Future Tests (+/- 45 day s) The Plan of Treatment section includes future care activities for the patient fr om all VA treatment facilities. This section includes future appointments and fu ture orders which are active, pending or scheduled. Future Appointments This section includes appointments that were scheduled t o occur 6 months from the date of the Encounter, up to a maximum of 20 appointme nts. The data comes from all [facility]. Appointment Date/Time Appointment Type Appointment Facili ty Name May 28, 2019 10:30 AM AMBULATORY - NONE [facility] May 28, 2019 12:30 PM AMBULATORY - MEDICINE [facility] Active, Pending, and Scheduled Orders This section includes a listing of several types of activ e, pending, and scheduled orders, including clinic medications orders, diagnosti c test orders, procedure orders and consult orders; where the start date of th e order is 45 days before the date of the Encounter or 45 days after the date o f the Encounter. The data comes from all [facility]. Test Date/Time Test Type Test Details Facility Name May 28, 2019 12:00 AM Laboratory - Chemistry Order LDL KIKE STEROL (CALCULATED) BLOOD SERUM SP [facility] Surgical Procedures: All associated to the encounter No Data Provided for This Section Lab Results: +/- 30 days of the encounter This section includes the Chemistry and Hematology Lab R esults on record with [place] for the patient. Radiology Reports and Pathology Report s are provided separately, in subsequent sections. Lab Results This section contains the Chemistry/Hematology Results sabrina t were resulted 30 days before or 30 days after the date of the Encounter. Date/Time Source Result Type Result - Unit Interpretation Reference Range Comment May 28, 2019 11:47 AM [facility] LIPID PROFILE Specimen Type: SERUM No comment entered. CHOLESTEROL, TOTAL (FV) 150 mg/dL 118-20 0 TRIGLYCERIDE (FV) 53 mg/dL <200 LDL CHOLESTEROL (CALCULATED) 86 HDL CHOLESTEROL (FV) 53 mg/dL >40 May 28, 2019 11:47 AM [facility] RENAL+LIVER PROFILE (FV) Specimen Type: SERUM No comment entered. GLUCOSE (FV) 102 mg/dL 70-110 ALBUMIN (FV) 4.5 g/dL 3.4-5.0 AST (FV) 26 U/L 15-37 TOTAL BILIRUBIN (FV) 0.46 mg/dL 0.3-1.2 CHLORIDE (FV) 104 mmol/L 98-107 TOTAL PROTEIN (FV) 7.3 g/dL 6.1-7.9 SODIUM (FV) 140 mmol/L 136-145 POTASSIUM (FV) 4.3 mmol/L 3.5-5.1 CO2 (FV) 29 mmol/L 21-32 UREA NITROGEN (FV) 19 mg/dL 6-20 CALCIUM (FV) 9.3 mg/dL 8.9-10.3 ALT (FV) 20 U/L 0-63 ALK. PHOS. (FV) 61 U/L 32-126 eGFR 77 CREATININE (FV) 0.96 mg/dL .61-1.24 May 28, 2019 11:47 AM [facility] CBC Specimen Type: BLOOD No comment entered. MPV (FV) 7.1 fL L 7.4-10.4 RDW (FV) 16.0 % H 11.5-14.5 HCT (FV) 38.1 % L 40-52 HGB (FV) 12.5 g/dL L 13-18 PLT (FV) 262 K/cmm 150-440 WBC (FV) 5.6 K/cmm 3.8-10.6 RBC (FV) 4.31 M/cmm L 4.4-5.9 MCV (FV) 88.3 fL 80-100 MCH (FV) 29.0 pg 26-34 MCHC (FV) 32.8 g/dL 32-36 NE% (FV) 66.3 % SEE ABSOLUTE # NE# (FV) 3.7 K/cmm 2.4-7.6 LY% (FV) 20.6 % SEE ABSOLUTE # LY# (FV) 1.2 K/cmm 1.0-4.8 MO% (FV) 8.3 % SEE ABSOLUTE # MO# (FV) 0.5 K/cmm 0.1-1.0 EO% (FV) 4.0 % SEE ABSOLUTE # EO# (FV) 0.2 K/cmm 0.0-0.4 BA% (FV) 0.8 % SEE ABSOLUTE # BA# (FV) 0.0 K/cmm 0.0-0.2 May 28, 2019 09:23 AM [facility] URINALYSIS Specimen Type: URINE No comment entered. UA COLOR YELLOW COLORLESS-YELLOW UA SPEC GRAV 1.021 1.005-1.035 UA PH 6.5 PH 5-9 UA NITRITE NEG QUAL. Neg.-Neg UA UROBILINOGEN <2.0 mg/dL -Normal: <2 m g-dL UA APPEARANCE - CLEAR UA GLUCOSE NORMAL QUAL NEG-TRACE UA PROTEIN - QUAL NEG UA BILI - QUAL NEG UA BLOOD - QUAL NEG-TRACE UA KETONES - QUAL NEG-TRACE UA LEUK EST NEG. Rodrick/uL NEG-74 Vital Signs: All taken on the encounter date No Data Provided for This Section Immunizations: All administered on the encounter date No Data Provided for This Section Social History: Smoking Status (Most current) and Tobacco Use (All prior to enco unter date) This section includes the most current, and the historical, smoking and tobacco- related health factors from the VA facility where the Encounter took place. Current Smoking Status This section includes the most current smoking, or tobacco -related health factor, from the VA facility where the Encounter took place. Date/Time Current Smoking Status Comment Facility May 03, 2018 12:14 PM VA-TOBACCO FORMER USER [facility] Tobacco Use History This section includes a history of the smoking, or tobacco -related health factors, that were collected on or before the date of the Encoun ter. The data comes from the [place] facility where the Encounter took place. Date/Time Smoking Status/Tobacco Use Comment [facility] it May 03, 2018 12:14 PM VA-TOBACCO FORMER USER [facility]ON[facility] May 03, 2018 12:14 PM VA-TOBACCO QUIT 15 YRS OR MORE [facility] Advance Directives: All historical and current No Data Provided for This Section Allergies and Adverse Reactions (ADRs): All historical and current Section Date Range: From patient's date of to the date document was create d. This section includes Allergies and Adverse Reactions (ADR s) on record with VA for the patient. The data comes from a [facility] treatment facilities. It does not list Allergies/ADRs that were removed or entered in error. Some allergies/ADRs may be reported in t he Immunization section. Allergen Event Date Event Type Reaction(s) Severity Source BENADRYL Sep 04, 2013 Propensity to adverse reactions to drug (disorder) Lip swellingPharyngeal swelling [facility]CDON[facility] BUDESONIDE Jun 01, 2017 Propensity to adverse reactions to drug (disorder) EruptionItching [facility]ONICA MCDONNELL XANAX May 24, 2013 Propensity to adverse reactions to drug (disorder) Hallucinations [facility]CDONNE[facility] Medications: VA dispensed (-15 months) and Non-VA Documented (Obtained Outside V A) Section Date Range: 1) prescriptions processed by a VA pharmacy in the last 15 m [facility], and 2) all medications recorded in the VA medical record as "non-VA medic ations". Pharmacy terms refer to VA pharmacy's work on prescriptions. VA patient s are advised to take their medications as instructed by their health care team. The data comes from all [place] treatment facilities. Glossary of Pharmacy Terms:Active = A prescription that can be filled at the local [place] pharmacy.Active: On Hold = An active prescription that will not be filled until pharmacy resolves the issue.Active: Susp = An active prescription that is not scheduled to be filled yet.Clinic Order = A medication received during a visit to a [place] clinic or emergency department (currently not available).Discontinued = A prescription stopped by a VA provider. It is no longer available to be filled. = A prescription which is too old to fill. This does not refer to the expiration date of the medication in the container. Non-VA = A medication that came from someplace other than a VA pharmacy. This may be a prescription from either the VA or other providers that was filled outside the [place]. Or, it may be an over the counter (OTC), herbal, dietary supplement or sample medication.Pending = This prescription order has been sent to the Pharmacy for review and is not ready yet. Medication Name and Strength Pharmacy Term Instructions Quantity Or dered Prescription Expires Prescription Number Last Dispense Date Ordering Provider Facility ALBUTEROL SO4 0.083% INHL,3ML INHALE/MIX 3 ML (2.5 MG / 1 VIAL) THROUGH NEBULIZER FOUR TIMES DAILY NEEDED FOR SHORTNESS OF BREATH 120 May 23, 2019 [id number] Mar 07, 2019 ELLEN POST ALENDRONATE 70MG TAB Active: Susp TAKE ONE TABLET BY MOUTH 1 TIME PER WEEK TAKE 30 MINUTES BEFORE FIRST FOOD, BEVERAGE OR MEDICATION OF THE DAY. DRINK WITH FULL GLASS OF WATER. REMAIN IN UPRIGHT POSITION FOR AT LEAST 30 MINUTES FOL LOWING DOSE. 12 Apr 16, 2020 [id number] Nov 01, 2019 CRISELDA SUN [facility] [place] CL[facility] ALENDRONATE 70MG TAB Discontinued TAKE ONE TABLET BY MOUTH 1 TIME PER WEEK TAKE 30 MINUTES BEFORE FIRST FOOD, BEVERAGE OR MEDICATION OF THE DAY. DRINK WITH FULL GLASS OF WATER. REMAIN IN UPRIGHT POSITION FOR AT LEAST 30 MINUTES FOL LOWING DOSE. 12 May 23, 2019 [id number] Mar 14, 2019 [facility] AMLODIPINE BESYLATE 5MG/BENAZEPRIL HCL 10MG CAP Active: Susp TAKE 1 CAPSULE BY MOUTH ONCE DAILY 90 May 28, 2020 [id number] Oct 19, [address] [facility] AMLODIPINE BESYLATE 5MG/BENAZEPRIL HCL 10MG CAP Discontinued TAKE 1 CAPSULE BY MOUTH ONCE DAILY 90 August 16, 2019 [id number] May 02, 2019 [facility] ASCORBIC ACID 500MG TAB Non-VA TAKE ONE TABLET BY MOUTH ONCE DAILY Non-VA Documented by: SHUKRI HALL nted at: [facility] ATORVASTATIN [place] 10MG TAB Active: Susp TAKE ONE TABLET BY MOUTH AT BEDTIME FOR CHOLESTEROL - DO NOT TAKE WITH GRAPEFRUIT JUICE 90 Apr 16, 2020 [id number] Dec 19, 2019 [facility] 10MG TAB Discontinued TAKE ONE TABLET BY MOUTH AT BEDTIME FOR CHOLESTEROL - DO NOT TAKE WITH GRAPEFRUIT JUICE 90 Jul 17, 2019 [id number] Apr 03, 2019 [facility] ATORVASTATIN CA 20MG TAB Discontinued TAKE ONE-HALF T ABLET BY MOUTH AT BEDTIME FOR CHOLESTEROL - DO NOT TAKE WITH GRAPEFRUIT JUICE 45 May 23, 2019 [id number] Mar 26, 2019 ELLEN POST [facility] BACLOFEN 20MG TAB Active: On Hold TAKE ONE-HALF TABLET BY MOUTH AT BEDTIME -(MAY CAUSE DROWSINESS) 45 Apr 16, 2020 [id number] Jun 14, 2019 [facility] B[facility] TAB Discontinued TAKE ONE-HALF TABLET BY MOUTH AT BEDTIME -(MAY CAUSE DROWSINESS) 45 May 23, 2019 [id number] Mar 26, 2019 ELLEN POST [facility] CHOLECALCIFEROL 1000UNT TAB Non-VA TAKE TWO TABLETS BY MOUTH TWICE A DAY Non-VA Documented by: SHUKRI HALL nted at: [facility] DULOXETINE HCL 30MG CAP,EC Non-VA TAKE 1 CAPSULE BY MOUTH ONCE DAILY Non-VA Documented by: CRISELDA SUN nted at: [facility] FERROUS SO4 324MG TAB,EC Non-VA TAKE ONE TABLET BY MOUTH ONCE DAILY Non-VA Documented by: SHUKRI HALL nted at: [facility] FLUTICASONE 200MCG/VILANTEROL 25MCG INHL,ORAL,30D Active INHALE 1 INHALATION (200/25) BY MOUTH ONCE DAILY FOR CHRONIC OBSTRUCTIVE PULMONARY DISEASE OR EMPHYSEMA(CONSULT APPROVED) Jun 12, 2020 [id number] Sep 16, 2019 CRISELDA SUN [facility] FLUTICASONE 200MCG/VILANTEROL 25MCG INHL,ORAL,30D Discontinu ed INHALE 1 INHALATION (200/25) BY MOUTH ONCE DAILY FOR CHRONIC OBSTRUCTIVE PULMONARY DISEASE OR EMPHYSEMA(CONSULT APPROVED) May 23, 2019 [id number] Ja n [facility] TAB Active: Susp TAKE ONE TABLET BY MOUTH QD WITH FO OD 90 Mar 07, 2020 [id number] Oct 24, [address] [facility] FOLIC ACID 1MG TAB Discontinued TAKE ONE TABLET BY MOUTH QD WITH FO OD 90 May 23, 2019 [id number] Feb 06[facility] 2019 [facility] HYDROC[facility]ONE 10MG/ACETAMINOPHEN 325MG TAB Non-VA TAKE ONE TABLET BY MOUTH EVERY 4 HOURS NEEDED Non-VA Documented by: RICARDO ANTHONY [facility] LIDOCAINE 5% PATCH Active: Susp APPLY 1 PATCH TO THE SKIN ONCE DAILY FOR PAIN (PATCH SHOULD BE REMOVED AFTER 12 HOURS) 90 Mar 07, 2020 [id number] Nov 25, 2019 [facility] METHOTREXATE NA 2.5MG TAB Active: Susp TAKE SIX TABLE TS BY MOUTH 1 TIME PER WEEK (ONCE EVERY 7 DAYS) CHOICE 72 Mar 07, 2020 [id number] Nov ELLEN POST [facility] METHOTREXATE NA 2.5MG TAB Discontinued TAKE SIX TABLE TS BY MOUTH 1 TIME PER WEEK (ONCE EVERY 7 DAYS) CHOICE 24 Jul 18, 2019 [id number] Oct [facility] OMEPRAZOLE 20MG CAP,EC Discontinued TAKE 2 CAPSULES B Y MOUTH ONCE DAILY FOR THE STOMACH 180 Apr 16, 2020 [id number] Jun 14, 2019 CRISELDA SUN [facility] OMEPRAZOLE 20MG CAP,EC Discontinued TAKE 2 CAPSULES B Y MOUTH ONCE DAILY FOR THE STOMACH 180 May 23, 2019 [id number] Mar 26, 2019 ELLEN POST [facility] PANTOPRAZOLE NA 40MG TAB,EC Active: Susp TAKE ONE TAB LET BY MOUTH EVERY MORNING FOR THE STOMACH 90 May 28, 2020 [id number] Nov 14, 2019 CRISELDA SUN [facility] ROPINIROLE HCL 2MG TAB N on-VA TAKE ONE TABLET BY MOUTH ONCE DAILY Non-VA Documented by: CRISELDA SUN nted at: [facility] TERAZOSIN HCL 2MG CAP Active: Susp TAKE 1 CAPSULE BY MOUTH TWICE A DAY FOR PROSTATE / MAY CAUSE LIGHTHEADEDNESS WHEN STANDING 180 Mar 07, 2020 [id number] Oct 24, 2019 ELLEN POST [facility] TERAZOSIN HCL 2MG CAP Discontinued TAKE 1 CAPSULE BY MOUTH TWICE A DAY FOR PROSTATE / MAY CAUSE LIGHTHEADEDNESS WHEN STANDING 180 May 23, 2019 [id number] Feb 11, 2019 [facility] ZOLPIDEM TARTRATE 10MG TAB Non-VA TAKE ONE TABLET BY MOUTH AT BEDTIME Non-VA Documented by: ELLEN POST nted at: [facility] Problems (Conditions): All historical and current Section Date Range: From patient's date of to the date document was create d. This section includes a list of Problems (Conditions) know n to VA for the patient. It includes both active and inacti ve problems (conditions). The data comes from all [place] treatment facilities. Problem Status Problem Code Date of Onset Date of Resolution Comm ent(s) Provider Source Anemia (SNOMED CT 376647530) Active 285.9 Jul 24, 2014 Entered By: MINNA PANTOJA Comment: 07/16 Hb corrected to 13.5 MINNA PANTOJA [facility] Aortic Valve Disorder (SCT 5412372) Active 8395527 Jun 06, 2018 Entered By: ELLEN POST Comment: 06/2018 Murmur/ECHO = Mild aortic valve disease, EF 60-65% SINCEREELLEN Baltazar [facility] Bilateral posterior vitreous detachment Active 943844072247028 BRAYDEN TUCKER [facility] Chronic obstructive lung disease (SNOMED CT 11166377) Active 1364 5005 Jun 25, 2014 Entered By: MINNA PANTOJA Comment: ex-smoker 0 [facility] Dry eyes Active 836057815 CAMERONBRAYDEN PASCUAL [facility] GERD - Gastro-esophageal reflux disease Active 847004047 ISABELSHUKRI [facility] H/O: surgery Active 782403347 Jul 24, 2014 Entered By: MINNA PANTOJA Comment: Colon resection (perforation) 2007Apr 2014 Entered By: MINNA PANTOJA Comment: 2012 colonoscopy negJul 24, 2014 Entered By: MINNA PANTOJA Comment: 2012 L inguinal hernia repair. MINNA PANTOJA [facility] Hyperlipidemia (SNOMED CT 45173061) Active 43961588 Jul 23, 2014 Entered By: MINNA PANTOJA Comment: 07/15 TC 128 ISABELSHUKRI Carranza [facility] Hypertension (SNOMED CT 50938912) Active 54466860 ISABELSHUKRI Baltazar [facility] Osteoarthritis (SNOMED CT 187863542) Active 715.90 MONIQUE ROMERO J [facility] Osteoporosis (SNOMED CT 68164952) Active 14343596 Jul 24, 2014 Entered By: MINNA PANTOJA Comment: hx of compression fx L spineApr 2014 Entered By: MINNA PANTOJA Comment: 07/16 Trial of tramadol for chronic back pain ISABELSHUKRI Baltazar [facility] Posttraumatic stress disorder (SNOMED CT 56249602) Active 77552937 UZAIR BUTCHER [facility] Recurrent major depression Active 90802246 CORS ON,VALERIA Arroyo [facility] Rheumatoid arthritis (SNOMED CT 13244096) Active 80483421 Jun 25, 2014 Entered By: MINNA PANTOJA Comment: 05/17 sed rate 47 RF 20 ISABELSHUKRI [facility] Relationship problems Inactive [id number] Jul 24, 2014 CO RSON,VALERIA Arroyo [facility] Radiology Reports: +/- 30 days of the encounter No Data Provided for This Section Pathology Reports: +/- 30 days of the encounter No Data Provided for This Section Encounter Notes: All associated encounter notes No Data Provided for This Section
--- OUTSIDE RECORDS SUMMARY | 2019-10-03 14:00 | XMS REPORT | Encounter Summary ---
Author Author Department [facility] SOLITARIO duenas Organization Department of [facility] Address [address] [place] [address] Phone Unavailable Care Team Providers Care Mobile Therapist Name Role Phone CRISELDA SUN PCP Unavailable Insurance Providers: All historical and [...] Mar 03, 2010 RR PART A [id number] SOLITARIO CHEW PATIENT MEDICARE (WNR) MEDICARE (M) RR PART B Mar 03, 2010 RR PART B [id number] SOLITARIO CHEW PATIENT [facility] (RR [facility] MEDIGAP PLAN F RAILROAD PLAN F Apr 03 15 [id number] SOLITARIO CHEW PATIENT Selected Encounter This section includes the information on record at [place] for the Encounter. Date/Time Encounter Type Encounter Description Reason Provider Source May 28, 2019 12:30 PM OFFICE/OUTPATIENT VISIT EST PRIMARY CARE/M EDICINE ICD-10-CM K21.9 Gastro-esophageal reflux disease without esophagitis with Provider Comments: GERD - Gastro-esophageal reflux disease ([facility] [id number]) CRISELDA SUN [facility] IHE Encounter Template Text not used by [place] Assessments - Encounter Diagnoses This section includes the primary and secondary diag noses documented for the Encounter. Date/Time Primary/Secondary Diagnosis Diagnosis Name Provider Source May 28, 2019 01:41 PM PRIMARY Gastro-esophageal reflux disease without esophagitis [facility] May [facility], [facility] 01:41 PM PRIMARY Nonrheumatic aortic valve disorder, unspecified [facility] May 28, 2019 01:41 PM SECONDARY Anemia, unspecified SEVERJANINE,[facility] May 28, 2019 01:41 PM SECONDARY Chronic obstructiv e pulmonary disease, unspecified [facility]ANINE,[facility] May 28, 2019 01:41 PM SECONDARY Chronic obstructiv e pulmonary disease, unspecified SEVERJANINE,[facility] May 28, 2019 01:41 PM SECONDARY Essential (primary) hypertension [facility] May 28, 2019 01:41 PM SECONDARY Essential (primary) hypertension [facility] May 28, 2019 01:41 PM SECONDARY Gastro-esophageal reflux disease without esophagitis [facility] May 28, 2019 01:41 PM SECONDARY Hyperlipidemia, unspecified RENETTA RNS,[facility] May 28, 2019 01:41 PM SECONDARY Hyperlipidemia, unspecified RENETTA RNS,[facility] May 28, 2019 01:41 PM SECONDARY Nonrheumatic aortic valve disorder, unspecified SEVERNS,[facility] May 28, 2019 01:41 PM SECONDARY Post-traumatic stress diso rder, unspecified SEVERNS,[facility] May 28, 2019 01:41 PM SECONDARY Post-traumatic stress diso rder, unspecified SEVERNS,[facility] May 28, 2019 01:41 PM SECONDARY Rheumatoid arthritis, unsp ecified [facility] May 28, 2019 01:41 PM SECONDARY Rheumatoid arthritis, unsp ecified SEVERNS,[facility] Plan of Treatment: Future Appointments (+ 6 months) and Future Tests (+/- 45 day s) The Plan of Treatment section includes future care activities for the patient fr om all [place] treatment facilities. This section includes future appointments and fu ture orders which are active, pending or scheduled. Active, Pending, and Scheduled Orders This section [...] the Encounter. The data comes from all [place] treatment facilities. Test Date/Time Test Type Test Details Facility Name May 28, 2019 12:00 AM Laboratory - Chemistry Order LDL KIKE STEROL (CALCULATED) BLOOD SERUM SP [facility] Surgical Procedures: All associated to the encounter No Data Provided for This Section Lab Results: +/- 30 days of the encounter This section includes the Chemistry and Hematology Lab R esults on record with [place] for the patient. Radiology Reports and Pathology Report s are provided separately, in subsequent sections. Lab Results This section contains the Chemistry/Hematology Results sabrina t were resulted 30 days before or 30 days after the date of the Encounter. Date/Time Source Result Type Result - Unit Interpretation Reference Range Comment May 28, 2019 11:47 AM [facility] LIPID PROFILE Specimen Type: SERUM No comment entered. CHOLESTEROL, TOTAL (FV) 150 mg/dL 118-20 0 TRIGLYCERIDE (FV) 53 mg/dL <200 LDL CHOLESTEROL (CALCULATED) 86 HDL CHOLESTEROL (FV) 53 mg/dL >40 May 28, 2019 11:47 AM [facility] RENAL+LIVER PROFILE (FV) Specimen Type: SERUM No [...] Signs: All taken on the encounter date This section contains inpatient and outpatient Vital Signs collected on the date of the Encounter. Date/Time Temperature Pulse Blood Pressure Respiratory Rate SP02 Pa in Height Weight Body Mass Index Source May 28, 2019 12:52 PM 6 [facility] May 28, 2019 12:41 PM 97 F 69 /min 128/70 mm[Hg] 20 /min 97 % 6 71 in 178.2 lb 25 [facility] Immunizations: All administered on the encounter date No Data Provided for This Section Social History: Smoking Status (Most current) and Tobacco Use (All prior to enco unter date) This section includes the most current, and the historical, smoking and tobacco- related health factors from the [place] facility where the Encounter took place. Current Smoking Status This section includes the most current smoking, or tobacco -related health factor, from the [place] facility where the Encounter took place. Date/Time Current Smoking Status Comment Facility Mar 07, 2019 02:20 PM VA-TOBACCO QUIT 15 YRS OR MORE [facility] Tobacco Use History This section includes a history of the smoking, or tobacco -related health factors, that were collected on or before the date of the Encoun ter. The data comes from the [place] facility where the Encounter took place. Date/Time Smoking Status/Tobacco Use Comment Facil ity Mar 07, 2019 02:20 PM VA-TOBACCO FORMER USER [facility] Mar 07, 2019 02:20 PM [place]-TO[place] QUIT 15 YRS OR MORE [facility] Advance Directives: All historical and current No Data Provided for This Section Allergies and Adverse Reactions (ADRs): All historical and current Section Date Range: From patient's date of to the date document was create d. This section includes Allergies and Adverse Reactions (ADR s) on record with [place] for the patient. The data comes from a [facility] treatment facilities. It does not list Allergies/ADRs [...] VA pharmacy in the last [address] [facility], and 2) all medications recorded in the [place] medical record as "non-VA medic ations". Pharmacy terms refer to VA pharmacy's work on prescriptions. VA patient s are advised to take their medications as instructed by their health care team. The data comes from all [place] treatment facilities. Glossary of Pharmacy Terms:Active = A prescription that can be filled at the local [place] pharmacy.Active: On Hold = An active prescription that will not be filled until pharmacy resolves the issue.Active: Susp = An active prescription that is not scheduled to be filled yet.Clinic Order = A medication received during a visit to a [place] clinic or emergency department (currently not available).Discontinued [...] may be a prescription from either the [place] or other providers that was filled outside the [place]. Or, it may be an over the [...] SHORTNESS OF BREATH 120 May 23, 2019 [id number] Mar 07, 2019 ELLEN POST ALENDRONATE 70MG TAB Active: Susp TAKE ONE TABLET BY MOUTH 1 TIME PER WEEK TAKE 30 MINUTES BEFORE FIRST FOOD, BEVERAGE OR MEDICATION OF THE DAY. DRINK WITH FULL GLASS OF WATER. REMAIN IN UPRIGHT POSITION FOR AT LEAST 30 MINUTES FOL LOWING DOSE. 12 Apr 16, 2020 [id number] Nov 01, 2019 CRISELDA SUN IN [place]IC ALENDRONATE 70MG TAB Discontinued TAKE ONE TABLET BY MOUTH 1 TIME PER WEEK TAKE 30 MINUTES BEFORE FIRST FOOD, BEVERAGE OR MEDICATION OF THE DAY. DRINK WITH FULL GLASS OF WATER. REMAIN IN UPRIGHT POSITION FOR AT LEAST 30 MINUTES FOL LOWING DOSE. 12 May 23, 2019 [id number] Mar 14, 2019 ELLEN POST [facility] AMLODIPINE BESYLATE 5MG/BENAZEPRIL HCL 10MG CAP Active: Susp TAKE 1 CAPSULE BY MOUTH ONCE DAILY 90 May 28, 2020 [id number] Oct 19, 2019 CRISELDA SUN [facility] AMLODIPINE BESYLATE 5MG/BENAZEPRIL HCL 10MG CAP Discontinued TAKE 1 CAPSULE BY MOUTH ONCE DAILY 90 August 16, 2019 [id number] May 02, 2019 ELLEN POST [facility] ASCORBIC ACID 500MG TAB Non-VA TAKE ONE TABLET BY MOUTH ONCE DAILY Non-VA Documented by: SHUKRI HALL nted at: [facility] ATORVASTATIN CA 10MG TAB Active: Susp TAKE ONE TABLET BY MOUTH AT BEDTIME FOR CHOLESTEROL - DO NOT TAKE WITH GRAPEFRUIT JUICE 90 Apr 16, 2020 [id number] Dec 19, 2019 [facility] ATORVASTATIN [place] 10MG TAB Discontinued TAKE ONE TABLET BY MOUTH AT BEDTIME FOR CHOLESTEROL - DO NOT TAKE WITH GRAPEFRUIT JUICE 90 Jul 17, 2019 [id number] Apr 03, 2019 ELLEN POST [facility] ATORVASTATIN CA 20MG TAB Discontinued TAKE ONE-HALF T ABLET BY MOUTH AT BEDTIME FOR CHOLESTEROL - DO NOT TAKE WITH GRAPEFRUIT JUICE 45 May 23, 2019 [id number] Mar 26, 2019 ELLEN POST [place] BACLOFEN 20MG TAB Active: On Hold TAKE ONE-HALF TABLET BY MOUTH AT BEDTIME -(MAY CAUSE DROWSINESS) 45 Apr 16, 2020 [id number] Jun 14, 2019 [facility] TAB Discontinued TAKE ONE-HALF TABLET BY MOUTH AT BEDTIME -(MAY CAUSE DROWSINESS) 45 May 23, 2019 [id number] Mar 26, 2019 ELLEN POST [place] CHOLECALCIFEROL 1000UNT TAB Non-VA TAKE TWO TABLETS BY MOUTH TWICE A DAY Non-VA Documented by: SHUKRI HALL nted at: [facility] DULOXETINE HCL 30MG CAP,EC Non-VA TAKE 1 CAPSULE BY MOUTH ONCE DAILY Non-VA Documented by: CRISELDA SUN nted at: [facility] FERROUS SO4 324MG TAB,EC Non-VA TAKE ONE TABLET BY MOUTH ONCE DAILY Non-VA Documented by: SHUKRI HALL nted at: [facility] FLUTICASONE 200MCG/VILANTEROL 25MCG INHL,ORAL,30D Active INHALE 1 INHALATION (200/25) BY MOUTH ONCE DAILY FOR CHRONIC OBSTRUCTIVE PULMONARY DISEASE OR EMPHYSEMA(CONSULT APPROVED) Jun 12, 2020 [id number] Sep 16, 2019 CRISELDA SUN [facility] FLUTICASONE 200MCG/VILANTEROL 25MCG INHL,ORAL,30D Discontinu ed INHALE 1 INHALATION (200/25) BY MOUTH ONCE DAILY FOR CHRONIC OBSTRUCTIVE PULMONARY DISEASE OR EMPHYSEMA(CONSULT APPROVED) May 23, 2019 [id number] 2019 ELLEN POST [facility] FOLIC ACID 1MG TAB Active: Susp TAKE ONE TABLET BY MOUTH QD WITH FO OD 90 Mar 07, 2020 [id number] Oct 24, 2019 ELLEN POST [facility] FOLIC ACID 1MG TAB Discontinued TAKE ONE TABLET BY MOUTH QD WITH FO OD 90 May 23, 2019 [id number] Feb 06, 2019 ELLEN POST [facility] HYDROCODONE 10MG/ACETAMINOPHEN 325MG TAB Non-VA TAKE ONE TABLET BY MOUTH EVERY 4 HOURS NEEDED Non-VA Documented by: RICARDO ANTHONY nted at: [facility] LIDOCAINE 5% PATCH Active: Susp APPLY 1 PATCH TO THE SKIN ONCE DAILY FOR PAIN (PATCH SHOULD BE REMOVED AFTER 12 HOURS) 90 Mar 07, 2020 [id number] Nov 25, 2019 ELLEN POST [facility] METHOTREXATE NA 2.5MG TAB Active: Susp TAKE SIX TABLE TS BY MOUTH 1 TIME PER WEEK (ONCE EVERY 7 DAYS) CHOICE 72 Mar 07, 2020 [id number] Nov ELLEN POST [facility] METHOTREXATE NA 2.5MG TAB Discontinued TAKE SIX TABLE TS BY MOUTH 1 TIME PER WEEK (ONCE EVERY 7 DAYS) CHOICE 24 Jul 18, 2019 [id number] Oct [id number] [facility] OMEPRAZOLE 20MG CAP,EC Discontinued TAKE 2 CAPSULES B Y MOUTH ONCE DAILY FOR THE STOMACH 180 Apr 16, 2020 [id number] Jun 14, 2019 CRISELDA SUN [facility] OMEPRAZOLE 20MG CAP,EC Discontinued TAKE 2 CAPSULES B Y MOUTH ONCE DAILY FOR THE STOMACH 180 May 23, 2019 [id number] Mar 26, 2019 ELLEN POST [facility] PANTOPRAZOLE NA 40MG TAB,EC Active: Susp TAKE ONE TAB LET BY MOUTH EVERY MORNING FOR THE STOMACH 90 May 28, 2020 [id number] Nov 14, 2019 CRISELDA SUN [facility] ROPINIROLE HCL 2MG TAB N on-VA TAKE ONE TABLET BY MOUTH ONCE DAILY Non-VA Documented by: CRISELDA SUN nted at: [facility] TERAZOSIN HCL 2MG CAP Active: Susp TAKE 1 CAPSULE BY MOUTH TWICE A DAY FOR PROSTATE / MAY CAUSE LIGHTHEADEDNESS WHEN STANDING 180 Mar 07, 2020 [id number] Oct 24, 2019 ELLEN POST [facility] TERAZOSIN HCL 2MG CAP Discontinued TAKE 1 CAPSULE BY MOUTH TWICE A DAY FOR PROSTATE / MAY CAUSE LIGHTHEADEDNESS WHEN STANDING 180 May 23, 2019 [id number] Feb 11, 2019 ELLEN POSTJEANNETTE [facility] ZOLPIDEM TARTRATE 10MG TAB Non-VA TAKE ONE TABLET BY MOUTH AT BEDTIME Non-[place] Documented by: ELLEN POST nted at: [facility] Problems (Conditions): All historical and current Section Date Range: From patient's date of to the date document was create d. This section includes a list of Problems (Conditions) know n to [place] for the patient. It includes both active and inacti ve problems (conditions). The data comes from all [place] treatment facilities. Problem Status Problem Code Date of Onset Date of Resolution Comm ent(s) Provider Source Anemia (SNOMED CT [id number]) Active 285.9 Jul 24, 2014 Entered By: MINNA PANTOJA Comment: 07/16 Hb corrected to 13.5 MINNA PANTOJA [facility] Aortic Valve Disorder (SCT 6715304) Active 0108221 Jun 06, 2018 Entered By: ELLEN POST Comment: 06/2018 Murmur/ECHO = Mild aortic valve disease, EF 60-65% ANETTE POSTGRAYSON Baltazar [facility] Bilateral posterior vitreous detachment Active 119635059404932 BRAYDEN TUCKER [employer] Chronic obstructive lung disease (SNOMED CT 94828057) Active 1364 5005 Jun 25, 2014 Entered By: MINNA PANTOJA Comment: ex-smoker 0 Sunible [facility] Dry eyes Active 302064357 [facility] GERD - Gastro-esophageal reflux disease Active 704719956 ISABELSHUKRI Carranza [employer] [facility] H/O: surgery Active 085040180 Jul 24, 2014 Entered By: MINNA PANTOJA Comment: Colon resection (perforation) 2007Apr 2014 Entered By: MINNA PANTOJA Comment: 2012 colonoscopy negApr 2014 Entered By: MINNA PANTOJA Comment: 2012 L inguinal hernia repair. MINNA PANTOJA [facility] Hyperlipidemia (SNOMED CT 10553946) Active 22798933 Jul 23, 2014 Entered By: MINNA PANTOJA Comment: 07/15 TC 128 SHUKRI HALL [employer] Hypertension (SNOMED CT 73837897) Active 74392440 ISABELSHUKRI Baltazar [employer] [facility] Osteoarthritis (SNOMED CT 168705170) Active 715.90 MONIQUE ROMERO J [facility] Osteoporosis (SNOMED CT 76085659) Active 93243267 Jul 24, 2014 Entered By: MINNA PATNOJA Comment: hx of compression fx L spineApr 2014 Entered By: MINNA PANTOJA Comment: 07/16 Trial of tramadol for chronic back pain SHUKRI HALL [employer] [facility] Posttraumatic stress disorder (SNOMED CT 60627209) Active 04235877 UZAIR BUTCHER [facility] Recurrent major depression Active 46385591 [place],VALERIA Arroyo [employer] [facility] Rheumatoid arthritis (SNOMED CT 66843247) Active 83472646 Jun 25, 2014 Entered By: MINNA PANTOJA Comment: 05/17 sed rate 47 RF 20 SUHKRI HALL [employer] Relationship problems Inactive [id number] Jul 24, 2014 CO RSVALERIA GARNER [employer] [facility] Radiology Reports: +/- 30 days of the encounter No Data Provided for This Section Pathology Reports: +/- 30 days of the encounter No Data Provided for This Section Encounter Notes: All associated encounter notes This section contains the clinical notes associated to the Encounter. Date/Time Encounter Note(s) Provider Source May 28, 2019 01:38 PM NURSING NOTE: LOCAL TITLE: LEARNING EVALUATION STANDARD TITLE: NURSING NOTE DATE OF NOTE: MAY 28, 2019@13:38 ENTRY DATE: MAY 28, 2019@13:38:11 AUTHOR: CORNELL MURRIETAIGNER: URGENCY: STATUS: COMPLETED Learning Evaluation (Nurse): LEARNING EVALUATION Patient is able to read. Patient is able to write. Patient reports high school education level. Patient learns best by doing. CHARACTERISTICS of barriers/limitations to learning: Physical Barriers/Limitations: Decreased vision. Comment: glasses Cognitive Barriers/Limitations: No cognitive barriers/limitations. Emotional Barriers/Limitations: No emotional barriers/limitations. Language Barriers/Limitations: No language barriers/limitations. COMMUNICATION NEEDS: Patient had no communication needs identified. Patient has good knowledge of condition. Patient is motivated to learn. Patient needs education/information regarding how/when to seek further care. HOLINESS PREFERENCE: No change to previously reported catholic preference: SABIANIST. Patient reports no cultural/catholic/spiritual health preferences. /jacqui/ CORNELL MURRIETA LPN [facility] Signed: 05/28/2019 13:42 CORNELL MURRIETA [place] [facility] May 28, 2019 01:36 PM ADMINISTRATIVE NOTE: LOCAL TITLE: HIPAA PRIVACY RELEASE STANDARD TITLE: ADMINISTRATIVE NOTE DATE OF NOTE: MAY 28, 2019@13:36 ENTRY DATE: MAY 28, 2019@13:36:47 AUTHOR: CORNELL MURRIETAIGNER: URGENCY: STATUS: COMPLETED Verbal consent obtained. Date: May This release is in effect for a period of 1 year. The following type of information may be discussed: appointment information, lab results, plan of care, treatment options, test results, condition , diagnosis, list of medications, address/phone number/emergency contact in case home care is to be provided, other: People authorized to receive above information: Colette, I give permission to provide medical information, my home address, and my phone number in the coordination of my home health care: YES Private MD SEE CPRS 10/06/17 I give permission for message (including medical information) to be left on my answering machine: Yes VLER Release of Info (SUNI) (Form [id number]): Signed /jacqui/ CORNELL MURRIETA LPN [facility] Signed: 05/28/2019 13:37 CORNELL MURRIETA [facility] May 28, 2019 01:12 PM MEDICATION MGT NOTE: LOCAL TITLE: MEDICATION RECONCILIATION (PROVIDER) STANDARD TITLE: MEDICATION MGT NOTE DATE OF NOTE: MAY 28, 2019@13:12 ENTRY DATE: MAY 28, 2019@13:12:43 AUTHOR: CRISELDA SUN EXP COSIGNER: URGENCY: STATUS: COMPLETED Medication Reconciliation COMPLETED (Outpatient): The following medication additions, deletions, dosage changes, OR duplications were identified and discussed with patient/caregiver. Specify: see note Copy of Medication Reconciliation note and Patient Medication Information Cover Sheet provided to and reviewed with patient/caregiver. ADVERSE REACTIONS/ALLERGY: XANAX, BENADRYL, BUDESONIDE Active Outpatient Medications (excluding Supplies): Active Outpatient Medications Status === 1) ALENDRONATE 70MG TAB TAKE ONE TABLET BY MOUTH 1 TIME ACTIVE (S) PER WEEK TAKE 30 MINUTES BEFORE FIRST FOOD, BEVERAGE OR MEDICATION OF THE DAY. DRINK WITH FULL GLASS OF WATER. REMAIN IN UPRIGHT POSITION FOR AT LEAST 30 MINUTES FOLLOWING DOSE. 2) AMLODIPINE 5/BENAZEPRIL 10MG CAP TAKE 1 CAPSULE BY ACTIVE MOUTH ONCE DAILY 3) ATORVASTATIN 10MG TAB TAKE ONE TABLET BY MOUTH AT ACTIVE (S) BEDTIME FOR CHOLESTEROL - DO NOT TAKE WITH GRAPEFRUIT JUICE 4) BACLOFEN 20MG TAB TAKE ONE-HALF TABLET BY MOUTH AT ACTIVE (S) BEDTIME -(MAY CAUSE DROWSINESS) 5) FOLIC ACID 1MG TAB TAKE ONE TABLET BY MOUTH DAILY ACTIVE (S) WITH FOOD 6) LIDOCAINE 5% PATCH APPLY 1 PATCH TO THE SKIN ONCE ACTIVE (S) DAILY FOR PAIN (PATCH SHOULD BE REMOVED AFTER 12 HOURS) 7) METHOTREXATE 2.5MG *HD* TAKE SIX TABLETS BY MOUTH 1 ACTIVE (S) TIME PER WEEK (ONCE EVERY 7 DAYS) CHOICE 8) OMEPRAZOLE 20MG EC CAP TAKE TWO CAPSULES BY MOUTH ACTIVE (S) ONCE DAILY FOR THE STOMACH 9) TERAZOSIN HCL 2MG CAP TAKE ONE CAPSULE BY MOUTH ACTIVE (S) TWICE A DAY FOR PROSTATE / MAY CAUSE LIGHTHEADEDNESS WHEN STANDING Active Non-VA Medications Status === 1) Non-VA ASCORBIC ACID 500MG TAB 500MG MOUTH ONCE DAILY ACTIVE 2) Non-VA CHOLECALCIFEROL (VIT D3) 1,000UNIT TAB ACTIVE 2000UNIT MOUTH TWICE A DAY 3) Non-VA DULOXETINE HCL 30MG EC CAP 30MG MOUTH ONCE ACTIVE DAILY 4) Non-VA FERROUS SULFATE 324MG EC TAB 324MG MOUTH ONCE ACTIVE DAILY 5) Non-VA HYDROCODONE 10MG/ACETAMIN. 325MG TAB 1 TABLET ACTIVE / (10/325) MOUTH EVERY 4 HOURS NEEDED 6) Non-VA ROPINIROLE 2MG TAB 2MG MOUTH ONCE DAILY ACTIVE 7) Non-VA ZOLPIDEM 10MG TAB 10MG MOUTH AT BEDTIME ACTIVE 16 Total Medications No Active Remote Medications for this patient /jacqui/ CRISELDA SUN APN [facility] Signed: 05/28/2019 13:13 CRISELDA SUN [facility] May 28, 2019 12:59 PM PRIMARY CARE PHYSICIAN NOTE: LOCAL TITLE: PRIMARY CARE/PROVIDER STANDARD TITLE: PRIMARY CARE PHYSICIAN NOTE DATE OF NOTE: MAY 28, 2019@12:59 ENTRY DATE: MAY 28, 2019@12:59:07 AUTHOR: CRISELDA SUN EXP COSIGNER: URGENCY: STATUS: COMPLETED Active Outpatient Medications (including Supplies): Active Outpatient Medications Status 1) ALENDRONATE 70MG TAB TAKE ONE TABLE T BY MOUTH 1 TIME ACTIVE (S) PER WEEK TAKE 30 MINUTES BEFORE FIRST FOOD, BEVERAGE OR MEDICATION OF THE DAY. DRINK WITH FULL GLASS OF WATER. REMAIN IN UPRIGHT POSITION FOR AT LEAST 30 MINUTES FOLLOWING DOSE. 2) AMLODIPINE 5/BENAZEPRIL 10MG CAP TA KE 1 CAPSULE BY ACTIVE MOUTH ONCE DAILY 3) ATORVASTATIN 10MG TAB TAKE ONE TABL ET BY MOUTH AT ACTIVE (S) BEDTIME FOR CHOLESTEROL - DO NOT TAKE WITH GRAPEFRUIT JUICE 4) BACLOFEN 20MG TAB TAKE ONE-HALF TAB LET BY MOUTH AT ACTIVE (S) BEDTIME -(MAY CAUSE DROWSINESS) 5) FOLIC ACID 1MG TAB TAKE ONE TABLET BY MOUTH DAILY ACTIVE (S) WITH FOOD 6) LIDOCAINE 5% PATCH APPLY 1 PATCH TO THE SKIN ONCE ACTIVE (S) DAILY FOR PAIN (PATCH SHOULD BE REMOVED AFTER 12 HOURS) 7) METHOTREXATE 2.5MG *HD* TAKE SIX TA BLETS BY MOUTH 1 ACTIVE (S) TIME PER WEEK (ONCE EVERY 7 DAYS) CHOICE 8) OMEPRAZOLE 20MG EC CAP TAKE TWO CAP SULES BY MOUTH ACTIVE (S) ONCE DAILY FOR THE STOMACH 9) TERAZOSIN HCL 2MG CAP TAKE ONE CAP JENNY BY MOUTH ACTIVE (S) TWICE A DAY FOR PROSTATE / MAY CAUSE LIGHTHEADEDNESS WHEN STANDING Active Non-VA Medications Status 1) Non-VA ASCORBIC ACID 500MG TAB 500M G MOUTH ONCE DAILY ACTIVE 2) Non-VA CHOLECALCIFEROL (VIT D3) 1,0 00UNIT TAB ACTIVE 2000UNIT MOUTH TWICE A DAY 3) Non-VA DULOXETINE HCL 30MG EC CAP 3 0MG MOUTH ONCE ACTIVE DAILY 4) Non-VA FERROUS SULFATE 324MG EC TAB 324MG MOUTH ONCE ACTIVE DAILY 5) Non-VA HYDROCODONE 10MG/ACETAMIN. 3 25MG TAB 1 TABLET ACTIVE / (10/325) MOUTH EVERY 4 HOURS NEEDED 6) Non-VA ROPINIROLE 2MG TAB 2MG MOUTH ONCE DAILY ACTIVE 7) Non-VA ZOLPIDEM 10MG TAB 10MG MOUTH AT BEDTIME ACTIVE 16 Total Medications ALLERGIES: XANAX, BENADRYL, BUDESONIDE From Nurses NOTE: " here for annual visit with labs done meds reviewed and up dated local providers: Dr. Carpenter (PCP) " Accompanied by other: HPI: SOLITARIO CHEW, 74 year old, MALE presents with chief complaint as above. Tobacco - denies use ETOH - denies use Illicit drugs - denies use Pt. reports no ER/UC visits, hospitalizations, surgeries or serious illnesses since last PCP visit. Medication list reconciled. PERTINANT REVIEW OF SYSTEMS: GENERAL: Appetite good, no significant weight change Head, ears, eyes, nose, throat: No significant change HEART: No chest pain or palpitations LUNGS: No Shortness of breath Denies cough Gastrointestinal: No abdominal pain, bowel movements unchanged; states his hiatal hernia is aggravating him. States omeprazole not helping much. Genital/Urinary: No dysuria, hematuria, or change in frequency of urination MUSCULOSKELETAL: Normal ROM, states arthritis pain "aggravating" but denies need for new meds. SKIN: Denies rash, open wounds or nonhealing sores PSY: States mood is "ok". Denies SI/HI. PMH: Refer to the above problem list Exercise: VITALS: DATE/TIME TEMP PULSE RESP BP PAIN WEIGHT 05/28/19 @ 1252 6 05/28/19 @ 1241 97 69 20 128/70 6 178.2 GENERAL: Appears stated age w/NAD; Alert and oriented x 3. PSYCH: Appropriate thought content. Mood appropriate. NEURO: Easily follows commands. Cranial Nerves: II-XII intact. Sensory: Grossly intact. No focal deficits noted. HEENT: Conjunctiva non-icteric. Extra ocular motions appear intact. Periorbital areas with no edema or redness. NECK: Trachea midline. No JVD at 90 degrees. Carotids with no bruits. No thyroidmegaly or masses palpated. HEART: RRR, murmur noted LUNGS: No resp distress noted. CTA with no wheezes, rhonchi, or rales. ABDOMEN: Soft, nontender with normal bowel sounds. NO organomegaly or masses. EXT: No cyanosis, clubbing, edema. Pedal pulses present, gross visual inspection wnl. Full ROM with all extremities. Posture: erect/upright Gait: smooth Gross sensation: lower extremities: intact sensation/no numbness noted Gross strength: lower extremities with equal strength bilaterally BACK: No spinal tenderness. SKIN: No rash or jaundice. Warm, dry with normal turgor for age. Normal color with capillary refill within 2 seconds. TODAY'S LAB RESULTS: Pending RDW: 16.0 H MPV: 7.1 L HCT (08-15-08): 38.1 L HGB (08-15-08): 12.5 L PLT (08-15-08): 262 WBC (07-02-09): 5.6 RBC (07-02-09): 4.31 L MCV (07-02-09): 88.3 MCH (07-02-09): 29.0 MCHC (07-02-09): 32.8 NE% (07-02-09): 66.3 NE# (07-02-09): 3.7 LY% (07-02-09): 20.6 LY# (07-02-09): 1.2 MO% (07-02-09): 8.3 MO# (07-02-09): 0.5 EO% (07-02-09): 4.0 EO# (07-02-09): 0.2 BA% (07-02-09): 0.8 BA# (07-02-09): 0.0 dGLUCOSE: 102 dALBUMIN: 4.5 dAST: 26 dBILIRUBIN, TOTAL: 0.46 dCHLORIDE: 104 dCHOLESTEROL, TOTAL: 150 dPROTEIN, TOTAL: 7.3 dSODIUM #3: 140 dPOTASSIUM #3: 4.3 dCO2 #3: 29 UREA NITROGEN (CHIVO): 19 CALCIUM (CHIVO): 9.3 TRIGLYCERIDE (CHIVO): 53 ALT (CHIVO)2: 20 ALP (CHIVO)2: 61 LDL CHOL (CALC): 86 eGFR (09-12-06): 77 CREATININE (04-08-08) FAV: 0.96 HDL, CHOLESTEROL (07-08-10): 53 UR COLOR: YELLOW SPECIFIC GRAVITY: 1.021 UR PH: 6.5 NITRITE, URINE: NEG UROBILINOGEN (FAV) (08-01-07): <2.0 UA APPEARANCE (10-26-10): - UA GLUCOSE (02-05-19): NORMAL UA PROTEIN (02-05-19): - UA BILI (02-05-19): - UA BLOOD (02-05-19): - UA KETONES (NEW): - UA LEUK EST (02-05-19): NEG. ASSESSMENT/PLAN: Brief Problem List: 1. Aortic Valve Disorder (SCT 3705948) 06/2018 Murmur/ECHO = Mild aortic valve disease, EF 60-65% 2. GERD - Gastro-esophageal reflux disea se - change omeprazole to pantoprazole 3. Posttraumatic stress disorder (SNOMED CT 85364906) 4. Anemia (SNOMED CT 358293634) - impro ed from 05/22. Continue iron replacement 07/16 Hb corrected to 13.5 5. Rheumatoid arthritis ([place] [address]32 004) 05/17 sed rate 47 RF 20 6. Osteoarthritis (SNOMED CT 569550285) 7. Hypertension (SNOMED CT 02920373) 8. Chronic obstructive lung disease (SNO MED CT 12175536) ex-smoker 9. Hyperlipidemia (SNOMED CT 80618443) - lipids at goal; continue atorvastatin as ordered 07/15 TC 128 The patients medical condition(s), new medication(s), and common side effects, were discussed. The patient expressed understanding and is aware to contact us if any further questions. PLAN: 1. RTC in 12 months with Renal, Liver, L ipid, CBC, A1C microalbumin, UA 2. Please give patient a copy of labwork - pending, will mail results 3. Please give patient information on [facility] 4. Please send a copy of lab work to Dr. Carpenter PATIENT EDUCATION: (x)Diet and Exercise: Heart healthy diet , Moderate exercise such as walking 30 minutes 5 times per week (x)Medications including instructions, b enefits and side effects: reviewed and discussed all medications (x)Lab results: Reviewed with patient (x)Tobacco cessation: advised and suppor mouna. ()Other: /jacqui/ CRISELDA SUN [facility] Signed: 05/28/2019 13:12 CRISELDA SUN [facility] May 28, 2019 12:46 PM PRIMARY CARE NURSING NOTE: LOCAL TITLE: PRIMARY CARE/NURSE STANDARD TITLE: PRIMARY CARE NURSING NOTE DATE OF NOTE: MAY 28, 2019@12:46 ENTRY DATE: MAY 28, 2019@12:46:43 AUTHOR: CORNELL MURRIETAIGNER: URGENCY: STATUS: COMPLETED SUBJECTIVE: here for annual visit with labs done meds reviewed and up dated local providers: Dr. Carpenter (PCP) BP: 128/70 (05/28/2019 12:41) Pain: 6 (05/28/2019 12:41) Height: 71 in [180.3 cm] (05/28/2019 12:41) Weight: 178.2 lb [81.0 kg] (05/28/2019 12:41) Pulse: 69 (05/28/2019 12:41) Respiration: 20 (05/28/2019 12:41) Temperature: 97 F [36.1 C] (05/28/2019 12:41) BMI: MAY 28, 2019@12:41:52 24.9 05/28/19 @ 1241 PULSE OXIMETRY: 97 Mental Status: alert and oriented Are there things in your life that worry you or cause you stress? NO Depression: No Suicidal: No Accompanied By: Alone On Arrival: Ambulatory Mobility changes in the past 3 months? No got a hip going out and lower back pain Do you have or use an assistive device? No Has patient had fall(s) in last 3 months? No, patient reports no fall(s) in last 3 months. Potential risks for falls identified. No Has the patient traveled outside the [place] within the past 30 days? No If yes, where has the patient traveled? Psychosocial Status: Indication of suspected abuse, neglect, or exploitation? No Collection DT Specimen Test Name Result Units Ref Range 05/28/2019 11:47 SERUM LDLc 86 OTHER MEDICATIONS (HERBALS, OTC's, etc): No Active Outpatient Medications (including Supplies): Active Outpatient Medications Status 1) ALENDRONATE 70MG TAB TAKE ONE TABLE T BY MOUTH 1 TIME ACTIVE (S) PER WEEK TAKE 30 MINUTES BEFORE FIRST FOOD, BEVERAGE OR MEDICATION OF THE DAY. DRINK WITH FULL GLASS OF WATER. REMAIN IN UPRIGHT POSITION FOR AT LEAST 30 MINUTES FOLLOWING DOSE. 2) AMLODIPINE 5/BENAZEPRIL 10MG CAP TA KE 1 CAPSULE BY ACTIVE MOUTH ONCE DAILY 3) ATORVASTATIN 10MG TAB TAKE ONE TABL ET BY MOUTH AT ACTIVE (S) BEDTIME FOR CHOLESTEROL - DO NOT TAKE WITH GRAPEFRUIT JUICE 4) BACLOFEN 20MG TAB TAKE ONE-HALF TAB LET BY MOUTH AT ACTIVE (S) BEDTIME -(MAY CAUSE DROWSINESS) 5) FOLIC ACID 1MG TAB TAKE ONE TABLET BY MOUTH DAILY ACTIVE (S) WITH FOOD 6) LIDOCAINE 5% PATCH APPLY 1 PATCH TO THE SKIN ONCE ACTIVE (S) DAILY FOR PAIN (PATCH SHOULD BE REMOVED AFTER 12 HOURS) 7) METHOTREXATE 2.5MG *HD* TAKE SIX TA BLETS BY MOUTH 1 ACTIVE (S) TIME PER WEEK (ONCE EVERY 7 DAYS) CHOICE 8) OMEPRAZOLE 20MG EC CAP TAKE TWO CAP SULES BY MOUTH ACTIVE (S) ONCE DAILY FOR THE STOMACH 9) TERAZOSIN HCL 2MG CAP TAKE ONE CAP JENNY BY MOUTH ACTIVE (S) TWICE A DAY FOR PROSTATE / MAY CAUSE LIGHTHEADEDNESS WHEN STANDING Active Non-VA Medications Status 1) Non-VA ASCORBIC ACID 500MG TAB 500M G MOUTH ONCE DAILY ACTIVE 2) Non-VA CHOLECALCIFEROL (VIT D3) 1,0 00UNIT TAB ACTIVE 2000UNIT MOUTH TWICE A DAY 3) Non-VA DULOXETINE HCL 30MG EC CAP 3 0MG MOUTH ONCE ACTIVE DAILY 4) Non-VA FERROUS SULFATE 324MG EC TAB 324MG MOUTH ONCE ACTIVE DAILY 5) Non-VA HYDROCODONE 10MG/ACETAMIN. 3 25MG TAB 1 TABLET ACTIVE / (10/325) MOUTH EVERY 4 HOURS NEEDED 6) Non-VA ROPINIROLE 2MG TAB 2MG MOUTH ONCE DAILY ACTIVE 7) Non-VA ZOLPIDEM 10MG TAB 10MG MOUTH AT BEDTIME ACTIVE 16 Total Medications No Active Remote Medications for this patient Healthy Living Discussion: Healthy Living Discussion: Nine Healthy Living Messages: The impact of healthy living behaviors on overall physical and mental well-being discussed with [place]. Be Involved Eat Wisely Be Tobacco Free Manage Stress Be Physically Active Get Screenings and Tests Be Safe Limit Alcohol Strive for Healthy Weight No, is not interested in any topic at this time. Importance of healthy living for better health, especially being physically active and eating wisely, was communicated to the . informed that these topics can be discussed at any time. Patient level of understanding: Good Alcohol Use Screen (AUDIT-C): Alcohol Screen: SCREEN FOR ALCOHOL (AUDIT-C) An alcohol screening test (AUDIT-C) was negative (score=1). 1. How often did you have a drink containing alcohol in the past year? Monthly or less 2. How many drinks containing alcohol did you have on a typical day when you were drinking in the past year? 1 or 2 3. How often did you have six or more drinks on one occasion in the past year? Never Patient had a negative AUDC score and does not require a follow-up Influenza Immunization (Nurse): Influenza Immunization Patient declined influenza immunization at this time. Comment: "not sure if i have had one" Brian Skin Evaluation (Outpatient): -Patient does not use wheelchair. -Patient is not confined to bed. -Patient does not require assistance for transfers/position changes. -Patient does not use a biomedical scientist that fits over skin (e.g., artificial limb, braces, splint, condom catheter) -Patient currently has no open wounds. -No history of pressure ulcer(s). -Patient currently has no pressure ulcer(s). Brian Skin Evaluation NOT completed in the last year, or 'no data available'. BRIAN RISK SKIN EVALUATION SCALE: PARAMETERS SCORE Sensory Perception: 3. Slightly limited Moisture: 4. Rarely moist Activity: 4 Walks frequently Mobility: 3. Slightly limited Nutrition: 3. Adequate Friction/Shear: 3. No apparent problem EDUCATION: Pressure Ulcer education not indicated at this time. Tuberculosis Screen (Nurse): Previous TB Screen reviewed. No changes were noted. Daily Aspirin (Nurse): Patient does not take daily aspirin. Nutrition/Health Risk Scrn (Nurse): NUTRITION AND HEALTH RISK SCREEN: Has patient had any unintentional weight loss of more than 10 pounds in the last 3 months? Patient reports no unintentional weight loss >10 lbs in last three months. LDL greater than 130 mg/dl within last 6 months? No, patient's LDL is NOT greater than 130 mg/dl Glyco Hgb A1C results in the last 6 months No, patient has no Glyco Hgb A1c lab on file in last 6 months. Is patient on warfarin ? No, patient is NOT on warfarin * * * * There were no "YES" responses to the above screening questions * * * * Pain Evaluation (Nurse): PAIN EVALUATION: Clinic Location: Primary Care Patient reports having pain today. Patient reports Primary Care Provider is aware of pain. Pain Screening Tool utilized: DoD/[place] Pain Scale This pain has been present for: Greater than 1 year Pain description: Comment: back and left hip Patient does NOT want pain addressed. Education Topics for patient/family/significant other: Reporting increased/unrelieved pain. Level of Understanding: Good Advance Directive Screen (Nurse): "Your Rights Regarding Advance Directives" was discussed and/or provided to patient/caregiver. ADVANCE DIRECTIVE SCREEN COPY of Advance Directive NOT on file in patient's medical record. Patient does not wish to create an Advance Directive. Information provided to patient. Organ Donor (Nurse): Patient states he/she is not currently registered with a [facility]. Patient declines to be an organ donor. Tobacco Use Screening: The patient is a former tobacco user. The patient quit fifteen or more years ago. Depression Screening: PHQ-2+I9 Depression Screening Score: 1 The score on this administration is 1, which indicates a negative screen on the Depression Scale over the past two weeks. Suicide Screening Score: 0 The results of this administration indicates a NEGATIVE primary screen for Risk of Suicide over the last 2 weeks. Over the past two weeks, how often have you been bothered by the following problems? 1. Little interest or pleasure in doing things Not at all 2. Feeling down, depressed, or hopeless Several days 3. Thoughts that you would be better off or of hurting yourself in some way Not at all /jacqui/ CORNELL MURRIETA LPN [facility] Signed: 05/28/2019 12:54 CORNELL MURRIETA [facility]
--- OUTSIDE RECORDS SUMMARY | 2019-10-03 14:00 | XMS REPORT | Continuity of Care Document ---
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 It does not include entries that were removed or entered in error. Problem Status Onset Date Problem Type Date of Resolution Comments Source Anemia (SNOMED CT 060883867) Active Condition Jul 24, 2014 Entered By: MINNA PANTOJA Comment: 07/16 Hb corrected to 13.5 [facility] Aortic Valve Disorder (SCT 1010357) Active Condition Jun 06, 2018 Entered By: ELLEN POST Comment: 06/2018 Murmur/ECHO = Mild aortic valve disease, EF 60-65% [facility] Bilateral posterior vitreous detachment Active Condition [facility] Chronic obstructive lung disease (SNOMED CT 97170183) Active Condition Jun 25, 2014 Entered By: MINNA PANTOJA Comment: ex- smoker [facility] Dry eyes Active Condition [facility] GERD - Gastro-esophageal reflux disease Active Condition [facility] H/O: surgery Active Condition Jul 24, 2014 Entered By: MINNA PANTOJA Comment: Colon resection (perforation) 2006Jul 24, 2014 Entered By: MINNA PANTOJA Comment: 2012 colonoscopy neg Jul 24, 2014 Entered By: MINNA PANTOJA Comment: 2012 L inguinal hernia repair. [facility] Hyperlipidemia (SNOMED CT 71385475) Active Condition Jul 23, 2014 Entered By: MINNA PANTOJA Comment: 07/15 TC 128 [facility] Hypertension (SNOMED CT 26957331) Active Condition [facility] Osteoarthritis (SNOMED CT 869500842) Active Condition [facility] Osteoporosis (SNOMED CT 82867850) Active Condition Jul 24, 2014 Entered By: MINNA PANTOJA Comment: hx of compression fx L spine Jul 24, 2014 Entered By: MINNA PANTOJA Comment: 07/16 Trial of tramadol for chronic back pain [facility] Posttraumatic stress disorder (SNOMED CT 14915854) Active Condition [facility] Recurrent major depression Active Condition [facility] Rheumatoid arthritis (SNOMED CT 12730656) Active Condition Jun 25, 2014 Entered By: MINNA PANTOJA Comment: 05/17 sed rate 47 R F 20 [facility] Relationship problems Inactive Condition 07/24/2014 [facility] ICD-10-CM K21.9 Gastro-esophageal reflux disease without esophagitis with Provider Comments: GERD - Gastro-esophageal reflux disease ([facility] [id number]) active Diagnosis [facility] ICD-10-CM F43.12 Post-traumatic stress d isorder, chronic with Provider Comments: Post-Traumatic Stress Disorder, Chronic active Diagnosis [facility] ICD-10-CM I35.9 Nonrheumatic aortic valv e disorder, unspecified with Provider Comments: Aortic Valve Disorder ([facility] 9275741) active Diagnosis [place] ICD-10-CM I35.9 Nonrheumatic aortic valv e disorder, unspecified with Provider Comments: Nonrheumatic Aortic Valve Disorder, unspecified active Diagnosis [place] ICD-10-CM J44.9 Chronic obstructive pulm onary disease, unspecified with Provider Comments: Chronic obstructive lung disease ([facility] 45398533) active Diagnosis [place] ICD-10-CM I10. Essential (primary) hyper tension with Provider Comments: Hypertension ([facility] [id number]) active Diagnosis [place] ICD-10-CM Z76.0 Encounter for issue of r epeat prescription with Provider Comments: Issue of Repeat Prescription active Diagnosis [facility] Medications Combined list of all outpatient medications recorded within the last 15 months b y all Department of Defense and Veterans Affairs facilities, and also all patien t-reported medications. Medication Details Route Status Patient Instructions Prescription Expires Prescript ion Number Last Dispense Date Ordering Pr ovider Order Date Source ALBUTEROL SO4 0.083% INHL,3ML INHALE/MIX 3 ML (2.5 MG / 1 VIAL) THROUGH NEBULIZER FOUR TIMES DAILY NEEDED FOR SHORTNESS OF BREATH 05/23/2019 [id number] 03/07/2019 ELLEN POST 06/11/2018 [facility] ALENDRONATE 70MG TAB TAKE ONE TABLET BY MOUTH 1 TIME PER WEEK TAKE 30 MINUTES BEFORE FIRST FOOD, BEVERAGE OR MEDICATION OF THE DAY. DRINK WITH FULL GLASS OF WATER. REMAIN IN UPRIGHT POSITION FOR AT LEAST 30 MINUTES FOLLOWING DOSE. ACTIVE/SUSP 04/16/2020 [id number] 11/01/2019 CRISELDA 05/27/2019 [facility] ALENDRONATE 70MG TAB TAKE ONE TABLET BY MOUTH 1 TIME PER WEEK TAKE 30 MINUTES BEFORE FIRST FOOD, BEVERAGE OR MEDICATION OF THE DAY. DRINK WITH FULL GLASS OF WATER. REMAIN IN UPRIGHT POSITION FOR AT LEAST 30 MINUTES FOLLOWING DOSE. DISCONTINUE 05/23/2019 [id number] 03/14/2019 ELLEN POST 05/22/2018 [facility] AMLODIPINE BESYLATE 5MG/BENAZEPRIL HCL 10MG CAP TAKE 1 CAPSULE BY MOUTH ONCE DAILY ACTIVE/SUSP 05/28/2020 [id number] 10/19/2019 CRISELDA 07/31/2019 [facility] AMLODIPINE BESYLATE 5MG/BENAZEPRIL HCL 10MG CAP TAKE 1 CAPSULE BY MOUTH ONCE DAILY DISCONTINUE 08/16/2019 [id number] 05/02/2019 ELLEN POST 08/15/2018 [facility] ASCORBIC ACID 500MG TAB TAKE O NE TABLET BY MOUTH ONCE DAILY ACTIVE SHUKRI HALL 10/06/2017 [facility] ATORVASTATIN CA 10MG TAB TAKE ONE TABLET BY MOUTH AT BEDTIME FOR CHOLESTEROL - DO NOT TAKE WITH GRAPEFRUIT JUICE ACTIVE/SUSP 04/16/2020 [id number] 12/19/2019 CRISELDA 07/02/2019 [facility] ATORVASTATIN CA 10MG TAB TAKE ONE TABLET BY MOUTH AT BEDTIME FOR CHOLESTEROL - DO NOT TAKE WITH GRAPEFRUIT JUICE DISCONTINUE 07/17/2019 [id number] 04/03/2019 LELEN POST 07/17/2018 [facility] ATORVASTATIN CA 20MG TAB TAKE ONE-HALF TABLET BY MOUTH AT BEDTIME FOR CHOLESTEROL - DO NOT TAKE WITH GRAPEFRUIT JUICE DISCONTINUE 05/23/2019 [id number] 03/26/2019 ELLEN POST 06/15/2018 [facility] BACLOFEN 20MG TAB TAKE ONE-ARAM F TABLET BY MOUTH AT BEDTIME -(MAY CAUSE DROWSINESS) HOLD 2020 [id number] 06/14/2019 CRISELDA 06/14/2019 [facility] BACLOFEN 20MG TAB TAKE ONE-ARAM F TABLET BY MOUTH AT BEDTIME -(MAY CAUSE DROWSINESS) DISCONTINUE 05/23/2019 [id number] 03/26/2019 ELLEN POST 05/22/2018 [facility] CHOLECALCIFEROL 1000UNT TAB TA KE TWO TABLETS BY MOUTH TWICE A DAY ACTIVE SHUKRI HALL 08/31/2016 [facility] DULOXETINE HCL 30MG CAP,EC TOMAS E 1 CAPSULE BY MOUTH ONCE DAILY ACTIVE CRISELDA 05/28/2019 [facility] FERROUS SO4 324MG TAB,EC TAKE ONE TABLET BY MOUTH ONCE DAILY ACTIVE SHUKRI HALL 10/06/2017 [facility] FLUTICASONE 200MCG/VILANTEROL 25MCG INHL,ORAL,30D INHALE 1 INHALATION (200/25) BY MOUTH ONCE DAILY FOR CHRONIC OBSTRUCTIVE PULMONARY DISEASE OR EMPHYSEMA(CONSULT APPROVED) ACTIVE 06/01 [id number] 09/16/2019 CRISELDA 06/12/2019 [facility] FLUTICASONE 200MCG/VILANTEROL 25MCG INHL,ORAL,30D INHALE 1 INHALATION (200/25) BY MOUTH ONCE DAILY FOR CHRONIC OBSTRUCTIVE PULMONARY DISEASE OR EMPHYSEMA(CONSULT APPROVED) DISCONTINUE 05/23/2019 [id number] 04/16/2019 ELLEN POST 05/25/2018 [facility] FOLIC ACID 1MG TAB TAKE ONE TA BLET BY MOUTH QD WITH FOOD ACTIVE/SUSP 03/07/2020 [id number] 10/24/2019 ELLEN POST 05/07/2019 [facility] FOLIC ACID 1MG TAB TAKE ONE TA BLET BY MOUTH QD WITH FOOD DISCONTINUE 05/23/2019 [id number] 02/06/2019 ELLEN POST 05/22/2018 [facility] HYDROCODONE 10MG/ACETAMINOPHEN 325MG TAB TAKE ONE TABLET BY MOUTH EVERY 4 HOURS NEEDED ACTIVE DAVID ANTHONY 05/17/2016 [facility] LIDOCAINE 5% PATCH APPLY 1 PAT CH TO THE SKIN ONCE DAILY FOR PAIN (PATCH SHOULD BE REMOVED AFTER 12 HOURS) ACTIVE/SUSP 03/07/2020 [id number] 11/25/2019 ELLEN POST 03/10/2019 [facility] METHOTREXATE NA 2.5MG TAB TAKE SIX TABLETS BY MOUTH 1 TIME PER WEEK (ONCE EVERY 7 DAYS) CHOICE ACTIVE/SUSP 03/07/2020 [id number] 11/04/2019 ELLEN POST 03/07/2019 [facility] METHOTREXATE NA 2.5MG TAB TAKE SIX TABLETS BY MOUTH 1 TIME PER WEEK (ONCE EVERY 7 DAYS) CHOICE DISCONTINUED (EDIT) 07/18/2019 [id number] 10/17/2018 PRAVINMauraJOEKhang LINARES 07/19/2018 [facility] OMEPRAZOLE 20MG CAP,EC TAKE 2 CAPSULES BY MOUTH ONCE DAILY FOR THE STOMACH DISCONTINUED 04/16/2020 [id number] 06/14/2019 CRISELDA 06/14/2019 [facility] OMEPRAZOLE 20MG CAP,EC TAKE 2 CAPSULES BY MOUTH ONCE DAILY FOR THE STOMACH DISCONTINUE 05/23/2019 [id number] 03/26/2019 ELLEN POST 06/15/2018 [facility] PANTOPRAZOLE NA 40MG TAB,EC TA KE ONE TABLET BY MOUTH EVERY MORNING FOR THE STOMACH ACTIVE/SUSP 05/28/2020 [id number] 11/14/2019 CRISELDA 05/28/2019 [facility] ROPINIROLE HCL 2MG TAB TAKE ON E TABLET BY MOUTH ONCE DAILY ACTIVE CRISELDA 05/28/2019 [facility] TERAZOSIN HCL 2MG CAP TAKE 1 C APSULE BY MOUTH TWICE A DAY FOR PROSTATE / MAY CAUSE LIGHTHEADEDNESS WHEN STANDING ACTIVE/SUSP 03/07/2020 [id number] 10/24/2019 ELLEN POST 05/07/2019 [facility] TERAZOSIN HCL 2MG CAP TAKE 1 C APSULE BY MOUTH TWICE A DAY FOR PROSTATE / MAY CAUSE LIGHTHEADEDNESS WHEN STANDING DISCONTINUE 05/23/2019 [id number] 02/11/2019 ELLEN POST 05/22/2018 [facility] ZOLPIDEM TARTRATE 10MG TAB TOMAS E ONE TABLET BY MOUTH AT BEDTIME ACTIVE ELLEN POST 05/22/2018 [facility] Allergies, Adverse Reactions, Alerts Combined list of all allergies from all Department of Defense and Veterans Affairs facilities. It does not include entries that were removed or entered in error. Substance Category R eaction Severity Reaction type Status Date Reported Comments Source BENADRYL Propensity to adverse peg ctions to drug (disorder) Lip swelling, Pharyngeal swelling Propensity to adverse reactions to drug (disorder) active 09/04/2013 [facility] BUDESONIDE Propensity to adverse r eactions to drug (disorder) Eruption, Itching Propensity to adverse reactions to drug (disorder) active 06/01/2017 [facility] XANAX Propensity to adverse reacti ons to drug (disorder) Hallucinations Propensity to adverse reactions to drug (disorder) active 05/24/2013 [facility] Immunizations Combined list of: 1) all immunizations on record at all [facility] ies, and 2) all available immunizations on record at Department of Defense ( D) facilities. Some immunizations on record at [facility] may not be included. Immunization Series Date Given Administered By Site Reaction Lot Number CVX Code Drug Color Shop Helper Status Comments Source INFLUENZA, UNSPECIFIED FORMULATION 02/01/2018 88 completed [facility] TDAP 2016 115 completed [facility] INFLUENZA, UNSPECIFIED FORMULATION 01/02/2016 88 completed [facility] PNEUMOCOCCAL CONJUGATE PCV 13 08/14/2014 133 completed [facility] INFLUENZA, UNSPECIFIED FORMULATION 06/01/2014 88 completed [facility] INFLUENZA, UNSPECIFIED FORMULATION 01/01/2013 88 completed [facility] PNEUMOCOCCAL, UNSPECIFIED FORMULATION 01/01/2011 109 completed [facility] TD(ADULT) UNSPECIFIED FORMULATION 10/01/2006 139 completed [facility] Results Combined list of recent chemistry, hematology and other laboratory results going back no more than 15 months from the Department of Defense and [facility] facilities. Order Name Results Value Reference Range Date Interpretation Specimen Comments Source LIPID PROFILE CHOLESTEROL [MAS S/VOLUME] IN SERUM OR PLASMA 150 mg/dL 118 - 200 05/28/2019 Specimen Type: SERUM No comment entered. [facility] LIPID PROFILE TRIGLYCERIDE [MA SS/VOLUME] IN SERUM OR PLASMA 53 mg/dL Specimen Type: SERUM No comment entered. [facility] LIPID PROFILE LDL CHOLESTEROL (CALCU LATED) 86 05/28/2019 Specimen Type: SERUM No comment entered. [facility] LIPID PROFILE CHOLESTEROL IN H DL [MASS/VOLUME] IN SERUM OR PLASMA 53 mg/dL Specimen Type: SERUM No comment entered. [facility] RENAL+LIVER PROFILE (FV) GLUCO SE [MASS/VOLUME] IN SERUM OR PLASMA 102 mg/dL 70 - 110 05/28/2019 Specimen Type: SERUM No comment entered. [facility] RENAL+LIVER PROFILE (FV) ALBUM IN [MASS/VOLUME] IN SERUM OR PLASMA 4.5 g/dL 3.4 - 5.0 05/28/2019 Specimen Type: SERUM No comment entered. [facility] RENAL+LIVER PROFILE (FV) ASPAR LEE AMINOTRANSFERASE [ENZYMATIC ACTIVITY/VOLUME] IN SERUM OR PLASMA 26 U/L 15 - 37 05/28/2019 Specimen Type: SERUM No comment entered. [facility] RENAL+LIVER PROFILE (FV) BILIR UBIN.TOTAL [MASS/VOLUME] IN SERUM OR PLASMA 0.46 mg/dL 0.3 - 1.2 05/28/2019 Specimen Type: SERUM No comment entered. [facility] RENAL+LIVER PROFILE (FV) CHLOR RAYMUNDO [MOLES/VOLUME] IN SERUM OR PLASMA 104 mmol/L 98 - 107 05/28/2019 Specimen Type: SERUM No comment entered. [facility] RENAL+LIVER PROFILE (FV) PROTE IN [MASS/VOLUME] IN SERUM OR PLASMA 7.3 g/dL 6.1 - 7.9 05/28/2019 Specimen Type: SERUM No comment entered. [facility] RENAL+LIVER PROFILE (FV) SODIU M [MOLES/VOLUME] IN SERUM OR PLASMA 140 mmol/L 136 - 145 05/28/2019 Specimen Type: SERUM No comment entered. [facility] RENAL+LIVER PROFILE (FV) POTAS SIUM [MOLES/VOLUME] IN SERUM OR PLASMA 4.3 mmol/L 3.5 - 5.1 05/28/2019 Specimen Type: SERUM No comment entered. [facility] RENAL+LIVER PROFILE (FV) "CARB ON DIOXIDE, TOTAL [MOLES/VOLUME] IN SERUM OR PLASMA" 29 mmol/L 21 - 32 05/28/2019 Specimen Type: SERUM No comment entered. [facility] RENAL+LIVER PROFILE (FV) UREA NITROGEN [MASS/VOLUME] IN SERUM OR PLASMA 19 mg/dL 6 - 20 05/28/2019 Specimen Type: SERUM No comment entered. [facility] RENAL+LIVER PROFILE (FV) CALCI UM [MASS/VOLUME] IN SERUM OR PLASMA 9.3 mg/dL 8.9 - 10.3 05/28/2019 Specimen Type: SERUM No comment entered. [facility] RENAL+LIVER PROFILE (FV) JONATHAN NE AMINOTRANSFERASE [ENZYMATIC ACTIVITY/VOLUME] IN SERUM OR PLASMA BY NO ADDITION OF P-5'-P 20 U/L 0 - 63 05/28/2019 Specimen T ype: SERUM No comment entered. [facility] RENAL+LIVER PROFILE (FV) ALKAL INE PHOSPHATASE [ENZYMATIC ACTIVITY/VOLUME] IN SERUM OR PLASMA 61 U/L 32 - 126 05/28/2019 Specimen Type: SERUM No comment entered. [facility] RENAL+LIVER PROFILE (FV) eGFR 77 05/28/2019 Specimen Type: SERUM No comment entered. [facility] RENAL+LIVER PROFILE (FV) CREAT ININE [MASS/VOLUME] IN SERUM OR PLASMA 0.96 mg/dL .61 - 1.24 05/28/2019 Specimen Type: SERUM No comment entered. [facility] CBC PLATELET MEAN VOLUME [ENTI TIC VOLUME] IN BLOOD BY AUTOMATED COUNT 7.1 fL 7.4 - 10.4 05/28/2019 L Specimen Type: BLOOD No comment entered. [facility] CBC ERYTHROCYTE DISTRIBUTION W IDTH [RATIO] BY AUTOMATED COUNT 16.0 % 11.5 - 14.5 05/28/2019 H Specimen Type: BLOOD No comment entered. [facility] CBC HEMATOCRIT [VOLUME FRACTIO N] OF BLOOD BY AUTOMATED COUNT 38.1 % 40 - 52 05/28/2019 L Specimen Type: BLOOD No comment entered. [facility]ON[facility] CBC HEMOGLOBIN [MASS/VOLUME] IN BLOO D 12.5 g/dL 13 - 18 05/28/2019 L Specimen Type: BLOOD No comment entered. [facility]ONICA MCDONNE[facility] CBC PLATELETS [#/VOLUME] IN BLOOD BY AUTOMATED COUNT 262 K/cmm 150 - 440 05/28/2019 Specimen Type: BLOOD No comment entered. [facility]ICA MCDONNE[facility] CBC LEUKOCYTES [#/VOLUME] IN BLOOD B Y AUTOMATED COUNT 5.6 K/cmm 3.8 - 10.6 05/28/2019 Specimen Type: BLOOD No comment entered. [facility]ON[facility] CBC ERYTHROCYTES [#/VOLUME] IN BLOOD BY AUTOMATED COUNT 4.31 M/cmm 4.4 - 5.9 05/28/2019 L Specimen Type: BLOOD No comment entered. [facility]ONNE[facility] CBC MCV [ENTITIC VOLUME] BY AUTOMATE D COUNT 88.3 fL 80 - 100 05/28/2019 Specimen T ype: BLOOD No comment entered. [facility]ONICA MCDONNE[facility] CBC MCH [ENTITIC MASS] BY AUTOMATED COUNT 29.0 pg 26 - 34 05/28/2019 Specimen T ype: BLOOD No comment entered. [facility] MCHC [MASS/VOLUME] BY AUTOMATED COUNT 32.8 g/dL 32 - 36 05/28/2019 Specimen T ype: BLOOD No comment entered. [facility] CBC SEGMENTED NEUTROPHILS/100 LEUKOCYTES IN BLOOD BY AUTOMATED COUNT 66.3 % 05/28/2019 Specimen Type: BLOOD No comment entered. [facility] CBC NEUTROPHILS [#/VOLUME] IN BLOOD BY AUTOMATED COUNT 3.7 K/cmm 2.4 - 7.6 05/28/2019 Specimen Type: BLOOD No comment entered. [facility] CBC LYMPHOCYTES/100 LEUKOCYTES IN BLOOD BY AUTOMATED COUNT 20.6 % 05/05 Specimen Type: BLOOD No comment entered. [facility] LYMPHOC[facility]TES [#/VOLUME] IN BLOOD BY AUTOMATED COUNT 1.2 K/cmm 1.0 - 4.8 05/28/2019 Specimen Type: BLOOD No comment entered. [facility] CBC MONOCYTES/100 LEUKOCYTES I N BLOOD BY AUTOMATED COUNT 8.3 % 05/28 Specimen T ype: BLOOD No comment entered. [facility] CBC MONOCYTES [#/VOLUME] IN BLOOD BY AUTOMATED COUNT 0.5 K/cmm 0.1 - 1.0 05/28/2019 Specimen Type: BLOOD No comment entered. [facility] CBC EOSINOPHILS/100 LEUKOCYTES IN BLOOD BY AUTOMATED COUNT 4.0 % 05/28 Specimen T ype: BLOOD No comment entered. [facility] CBC EOSINOPHILS [#/VOLUME] IN BLOOD BY AUTOMATED COUNT 0.2 K/cmm 0.0 - 0.4 05/28/2019 Specimen Type: BLOOD No comment entered. [facility] CBC BASOPHILS/100 LEUKOCYTES I N BLOOD BY AUTOMATED COUNT 0.8 % 05/28 Specimen T ype: BLOOD No comment entered. [facility] CBC BASOPHILS [#/VOLUME] IN BLOOD BY AUTOMATED COUNT 0.0 K/cmm 0.0 - 0.2 05/28/2019 Specimen Type: BLOOD No comment entered. [facility] URINALYSIS COLOR OF URINE YELLO W 05/28/2019 Specimen Type: URINE No comment entered. [facility] URINALYSIS SPECIFIC GRAVITY OF URINE 1.021 05/28/2019 Specimen Type: URINE No comment entered. [facility]ON[facility] URINALYSIS PH OF URINE BY TEST STRIP 6.5 PH 5 - 9 05/28/2019 Specimen Type: URINE No comment entered. [facility] MCDON[facility] URINALYSIS NITRITE [PRESENCE] IN URI NE BY TEST STRIP NEGQUAL. . - "Neg" 05/28/2019 Specimen Type: URINE No comment entered. [facility]ON[facility] URINALYSIS UROBILINOGEN [MASS/ VOLUME] IN URINE BY TEST STRIP <2.0mg/dL - "Normal: <2 mg 05/28/2019 Specimen Type: URINE No comment entered. [facility]ON[facility] URINALYSIS APPEARANCE OF URINE - 05/28/2019 Specimen Type: URINE No comment entered. [facility]ONICA MCDON[facility] URINALYSIS GLUCOSE [MASS/VOLUME] IN URINE BY TEST STRIP NORMALQUAL - "TRACE" 05/28/2019 Specimen Type: URINE No comment entered. [facility]ONICA MCDON[facility] URINALYSIS PROTEIN [MASS/VOLUME] IN URINE BY TEST STRIP -QUAL 05/28/2019 Specimen T ype: URINE No comment entered. [facility]ONICA MCDONNE[facility] URINALYSIS BILIRUBIN.TOTAL [TN ESENCE] IN URINE BY TEST STRIP -QUAL 05/05 Specimen Type: URINE No comment entered. [facility] MCDON[facility] URINALYSIS HEMOGLOBIN [PRESENCE] IN URINE BY TEST STRIP -QUAL - "TRACE" 05/28/2019 Specimen Type: URINE No comment entered. [facility]ANNET[facility] URINALYSIS KETONES [MASS/VOLUME] IN URINE BY TEST STRIP -QUAL - "TRACE" 05/28/2019 Specimen Type: URINE No comment entered. [facility] MCDONNE[facility] URINALYSIS LEUKOCYTE ESTERASE [PRESENCE] IN URINE BY TEST STRIP NEG.Rodrick/uL - 74 05/28/2019 Specimen Type: URINE No comment entered. [facility]CDONNE[facility] CBC PLATELET MEAN VOLUME [ENTI TIC VOLUME] IN BLOOD BY AUTOMATED COUNT 8.4 fL 7.4 - 10.4 05/22/2018 Specimen Type: BLOOD No comment entered. [facility] CBC ERYTHROCYTE DISTRIBUTION W IDTH [RATIO] BY AUTOMATED COUNT 16.5 % 11.5 - 14.5 05/22/2018 H Specimen Type: BLOOD No comment entered. [facility] CBC HEMATOCRIT [VOLUME FRACTIO N] OF BLOOD BY AUTOMATED COUNT 36.5 % 40 - 52 05/22/2018 L Specimen Type: BLOOD No comment entered. [facility] CBC HEMOGLOBIN [MASS/VOLUME] IN BLOO D 12.0 g/dL 13 - 18 05/22/2018 L Specimen Type: BLOOD No comment entered. [facility] CBC PLATELETS [#/VOLUME] IN BLOOD BY AUTOMATED COUNT 263 K/cmm 150 - 440 05/22/2018 Specimen Type: BLOOD No comment entered. [facility] CBC LEUKOCYTES [#/VOLUME] IN BLOOD B Y AUTOMATED COUNT 5.1 K/cmm 3.8 - 10.6 05/22/2018 Specimen Type: BLOOD No comment entered. [facility] CBC ERYTHROCYTES [#/VOLUME] IN BLOOD BY AUTOMATED COUNT 4.09 M/cmm 4.4 - 5.9 05/22/2018 L Specimen Type: BLOOD No comment entered. [facility] CBC MCV [ENTITIC VOLUME] BY AUTOMATE D COUNT 89.4 fL 80 - 100 05/22/2018 Specimen T ype: BLOOD No comment entered. [facility] CBC MCH [ENTITIC MASS] BY AUTOMATED COUNT 29.4 pg 26 - 34 05/22/2018 Specimen T ype: BLOOD No comment entered. [facility] CBC MCHC [MASS/VOLUME] BY AUTOMATED COUNT 32.9 g/dL 32 - 36 05/22/2018 Specimen T ype: BLOOD No comment entered. [facility] CBC SEGMENTED NEUTROPHILS/100 LEUKOCYTES IN BLOOD BY AUTOMATED COUNT 57.7 % 05/22/2018 Specimen Type: BLOOD No comment entered. [facility] CBC NEUTROPHILS [#/VOLUME] IN BLOOD BY AUTOMATED COUNT 2.9 K/cmm 2.4 - 7.6 05/22/2018 Specimen Type: BLOOD No comment entered. [facility] CBC LYMPHOCYTES/100 LEUKOCYTES IN BLOOD BY AUTOMATED COUNT 24.6 % 05/04 Specimen Type: BLOOD No comment entered. [facility] CBC LYMPHOCYTES [#/VOLUME] IN BLOOD BY AUTOMATED COUNT 1.3 K/cmm 1.0 - 4.8 05/22/2018 Specimen Type: BLOOD No comment entered. [facility] CBC MONOCYTES/100 LEUKOCYTES I N BLOOD BY AUTOMATED COUNT 9.7 % 05/22 Specimen T ype: BLOOD No comment entered. [facility] CBC MONOCYTES [#/VOLUME] IN BLOOD BY AUTOMATED COUNT 0.5 K/cmm 0.1 - 1.0 05/22/2018 Specimen Type: BLOOD No comment entered. [facility] CBC EOSINOPHILS/100 LEUKOCYTES IN BLOOD BY AUTOMATED COUNT 7.3 % 05/22 Specimen T ype: BLOOD No comment entered. [facility] CBC EOSINOPHILS [#/VOLUME] IN BLOOD BY AUTOMATED COUNT 0.4 K/cmm 0.0 - 0.4 05/22/2018 Specimen Type: BLOOD No comment entered. [facility] CBC BASOPHILS/100 LEUKOCYTES I N BLOOD BY AUTOMATED COUNT 0.7 % 05/22 Specimen T ype: BLOOD No comment entered. [facility] CBC BASOPHILS [#/VOLUME] IN BLOOD BY AUTOMATED COUNT 0.0 K/cmm 0.0 - 0.2 05/22/2018 Specimen Type: BLOOD No comment entered. [facility] RENAL+LIVER PROFILE GLUCOSE [M ASS/VOLUME] IN SERUM OR PLASMA 87 mg/dL 70 - 110 05/22/2018 Specimen Type: SERUM No comment entered. [facility] RENAL+LIVER PROFILE ALBUMIN [M ASS/VOLUME] IN SERUM OR PLASMA 4.2 g/dL 3.4 - 5.0 05/22/2018 Specimen Type: SERUM No comment entered. [facility] RENAL+LIVER PROFILE ASPARTATE AMINOTRANSFERASE [ENZYMATIC ACTIVITY/VOLUME] IN SERUM OR PLASMA 31 U/L 15 - 37 05/22/2018 Specimen Type: SERUM No comment entered. [facility] RENAL+LIVER PROFILE BILIRUBIN. TOTAL [MASS/VOLUME] IN SERUM OR PLASMA 0.57 mg/dL 0.3 - 1.2 05/22/2018 Specimen Type: SERUM No comment entered. [facility] RENAL+LIVER PROFILE CHLORIDE [ MOLES/VOLUME] IN SERUM OR PLASMA 106 mmol/L 98 - 107 05/22/2018 Specimen Type: SERUM No comment entered. [facility]FILE PROTEIN [M ASS/VOLUME] IN SERUM OR PLASMA 6.7 g/dL 6.4 - 8.2 05/22/2018 Specimen Type: SERUM No comment entered. [facility] SODIUM [MO LES/VOLUME] IN SERUM OR PLASMA 140 mmol/L 136 - 145 05/22/2018 Specimen Type: SERUM No comment entered. [facility]FILE POTASSIUM [MOLES/VOLUME] IN SERUM OR PLASMA 4.1 mmol/L 3.5 - 5.1 05/22/2018 Specimen Type: SERUM No comment entered. [facility]FILE CARBON TEQUILA XIDE, TOTAL [MOLES/VOLUME] IN SERUM OR PLASMA 26 mmol/L 21 - 32 05/22/2018 Specimen Type: SERUM No comment entered. [facility] PROFILE UREA NITRO GEN [MASS/VOLUME] IN SERUM OR PLASMA 16 mg/dL 6 - 20 05/22/2018 Specimen Type: SERUM No comment entered. [facility]FILE CALCIUM [M ASS/VOLUME] IN SERUM OR PLASMA 8.7 mg/dL 8.9 - 10.3 05/22/2018 L Specimen Type: SERUM No comment entered. [facility]FILE ALANINE AM INOTRANSFERASE [ENZYMATIC ACTIVITY/VOLUME] IN SERUM OR PLASMA BY NO ADDITION OF P-5'-P 25 U/L 0 - 63 05/22/2018 Specimen Type: SERUM No comment entered. [facility] PROFILE ALKALINE P HOSPHATASE [ENZYMATIC ACTIVITY/VOLUME] IN SERUM OR PLASMA 61 U/L 32 - 126 05/22/2018 Specimen Type: SERUM No comment entered. [facility] PROFILE GLOMERULAR FILTRATION RATE/1.73 SQ M.PREDICTED [VOLUME RATE/AREA] IN SERUM OR PLASMA BY CREATININE-BASED FORMULA (MDRD) 123 Seeeval 05/22/2018 Specimen Type: SERUM No comment entered. [facility] RENAL+LIVER PROFILE CREATININE [MASS/VOLUME] IN SERUM OR PLASMA 0.64 mg/dL .61 - 1.24 05/22/2018 Specimen Type: SERUM No comment entered. [facility] PSA (FV) PROSTATE SPECIFIC AG [MASS/VOLUME] IN SERUM OR PLASMA 0.51 ng/mL 0.0 - 4.0 05/22/2018 Specimen Type: SERUM No comment entered. [facility] URINALYSIS COLOR OF URINE [place] w 05/22/2018 Specimen Type: URINE No comment entered. [facility] URINALYSIS SPECIFIC GRAVITY OF URINE 1.019 05/22/2018 Specimen Type: URINE No comment entered. [facility] URINALYSIS BILIRUBIN.TOTAL [TN ESENCE] IN URINE BY TEST STRIP NegativeQUAL. - "Neg" 05/22/2018 Specimen Type: URINE No comment entered. [facility] URINALYSIS KETONES [MASS/VOLUME] IN URINE BY TEST STRIP Negativemg/dL 05/22/2018 Specimen Type: URINE No comment entered. [facility] URINALYSIS GLUCOSE [MASS/VOLUME] IN URINE BY TEST STRIP Negativemg/dL 05/22/2018 Specimen Type: URINE No comment entered. [facility] URINALYSIS PROTEIN [MASS/VOLUME] IN URINE BY TEST STRIP Negativemg/dL 05/22/2018 Specimen Type: URINE No comment entered. [facility] URINALYSIS PH OF URINE BY TEST STRIP 5.0 PH 5 - 9 05/22/2018 Specimen Type: URINE No comment entered. [facility] URINALYSIS HEMOGLOBIN [PRESENCE] IN URINE BY TEST STRIP NegativeQUAL. . - "Neg" 05/22/2018 Specimen Type: URINE No comment entered. [facility] URINALYSIS NITRITE [PRESENCE] IN URI NE BY TEST STRIP NegativeQUAL. . - "Neg" 05/22/2018 Specimen Type: URINE No comment entered. [facility] URINALYSIS LEUKOCYTE ESTERASE [PRESENCE] IN URINE BY TEST STRIP NegativeQUAL. . - "Neg" 05/22/2018 Specimen Type: URINE No comment entered. [facility] URINALYSIS UROBILINOGEN [MASS/ VOLUME] IN URINE BY TEST STRIP <2.0mg/dL - "Normal: <2 mg 05/22/2018 Specimen Type: URINE No comment entered. [facility] URINALYSIS APPEARANCE OF URINE Clear 05/22/2018 Specimen Type: URINE No comment entered. [facility] LIPID PROFILE CHOLESTEROL.TOTA L/CHOLESTEROL IN HDL [MASS RATIO] IN SERUM OR PLASMA 2.8 05/22/2018 Specimen Type: SERUM No comment entered. [facility] LIPID PROFILE CHOLESTEROL [MAS S/VOLUME] IN SERUM OR PLASMA 131 mg/dL 118 - 200 05/22/2018 Specimen Type: SERUM No comment entered. [facility] LIPID PROFILE TRIGLYCERIDE [MA SS/VOLUME] IN SERUM OR PLASMA 53 mg/dL Specimen Type: SERUM No comment entered. [facility] LIPID PROFILE CHOLESTEROL IN L DL [MASS/VOLUME] IN SERUM OR PLASMA BY CALCULATION 73 mg/dL 05/22/2018 Specimen Type: SERUM No comment entered. [facility] LIPID PROFILE CHOLESTEROL IN H DL [MASS/VOLUME] IN SERUM OR PLASMA 47 mg/dL Specimen Type: SERUM No comment entered. [facility] CBC PLATELET MEAN VOLUME [ENTI TIC VOLUME] IN BLOOD BY AUTOMATED COUNT 7.9 fL 7.4 - 10.4 10/06/2017 Specimen Type: BLOOD No comment entered. [facility] CBC ERYTHROCYTE DISTRIBUTION W IDTH [RATIO] BY AUTOMATED COUNT 14.8 % 11.5 - 14.5 10/06/2017 H Specimen Type: BLOOD No comment entered. [facility] CBC HEMATOCRIT [VOLUME FRACTIO N] OF BLOOD BY AUTOMATED COUNT 37.4 % 40 - 52 10/06/2017 L Specimen Type: BLOOD No comment entered. [facility] CBC HEMOGLOBIN [MASS/VOLUME] IN BLOO D 12.4 g/dL 13 - 18 10/06/2017 L Specimen Type: BLOOD No comment entered. [facility] CBC PLATELETS [#/VOLUME] IN BLOOD BY AUTOMATED COUNT 258 K/cmm 150 - 440 10/06/2017 Specimen Type: BLOOD No comment entered. [facility] CBC LEUKOCYTES [#/VOLUME] IN BLOOD B Y AUTOMATED COUNT 7.3 K/cmm 3.8 - 10.6 10/06/2017 Specimen Type: BLOOD No comment entered. [facility] CBC ERYTHROCYTES [#/VOLUME] IN BLOOD BY AUTOMATED COUNT 4.37 M/cmm 4.4 - 5.9 10/06/2017 L Specimen Type: BLOOD No comment entered. [facility] CBC MCV [ENTITIC VOLUME] BY AUTOMATE D COUNT 85.7 fL 80 - 100 10/06/2017 Specimen T ype: BLOOD No comment entered. [facility] CBC MCH [ENTITIC MASS] BY AUTOMATED COUNT 28.3 pg 26 - 34 10/06/2017 Specimen T ype: BLOOD No comment entered. [facility] CBC MCHC [MASS/VOLUME] BY AUTOMATED COUNT 33.0 g/dL 32 - 36 10/06/2017 Specimen T ype: BLOOD No comment entered. [facility] CBC SEGMENTED NEUTROPHILS/100 LEUKOCYTES IN BLOOD BY AUTOMATED COUNT 61.3 % 10/06/2017 Specimen Type: BLOOD No comment entered. [facility] CBC NEUTROPHILS [#/VOLUME] IN BLOOD BY AUTOMATED COUNT 4.5 K/cmm 2.4 - 7.6 10/06/2017 Specimen Type: BLOOD No comment entered. [facility] CBC LYMPHOCYTES/100 LEUKOCYTES IN BLOOD BY AUTOMATED COUNT 20.0 % 09/2017 Specimen Type: BLOOD No comment entered. [facility] CBC LYMPHOCYTES [#/VOLUME] IN BLOOD BY AUTOMATED COUNT 1.5 K/cmm 1.0 - 4.8 10/06/2017 Specimen Type: BLOOD No comment entered. [facility] CBC MONOCYTES/100 LEUKOCYTES I N BLOOD BY AUTOMATED COUNT 9.3 % 10/06 Specimen T ype: BLOOD No comment entered. [facility] CBC MONOCYTES [#/VOLUME] IN BLOOD BY AUTOMATED COUNT 0.7 K/cmm 0.1 - 1.0 10/06/2017 Specimen Type: BLOOD No comment entered. [facility] CBC EOSINOPHILS/100 LEUKOCYTES IN BLOOD BY AUTOMATED COUNT 8.7 % 10/06 Specimen T ype: BLOOD No comment entered. [facility] CBC EOSINOPHILS [#/VOLUME] IN BLOOD BY AUTOMATED COUNT 0.6 K/cmm 0.0 - 0.4 10/06/2017 H Specimen Type: BLOOD No comment entered. [facility] CBC BASOPHILS/100 LEUKOCYTES I N BLOOD BY AUTOMATED COUNT 0.7 % 10/06 Specimen T ype: BLOOD No comment entered. [facility] CBC BASOPHILS [#/VOLUME] IN BLOOD BY AUTOMATED COUNT 0.1 K/cmm 0.0 - 0.2 10/06/2017 Specimen Type: BLOOD No comment entered. [facility] Vital Signs Combined list of inpatient and outpatient Vital Signs from all Department of [facility] and/or [facility] Affairs medical facilities within the last 15 months. The included entries comply with the patient's data sharing authorizations. Vital Sign Value Date Comments Source PAIN 6 05/28 12:52:00 [facility] Encounters Combined list of encounters at Department of Defense and/or [facility] Affairs ([facility] ) for the last 15 months. Not all VA inpatient encounters are included. The incl uded entries comply with the patient's data sharing authorizations. Location Location Details Encounter Type Encounter Number Reason For Visit Attending Provider ADM Date DC Date Status Disposition Source Outpatient Encounter [id number] _MAPID:en [id number] 04/13/2018 [facility] Outpatient Encounter [id number] _MAPID: [id number] 04/13/2018 [facility] OFFICE/OUT PATIENT VISIT EST [id number] ICD-10- CM Z76.0 Encounter for issue of repeat prescription with Provider Comments: Issue of Repeat Prescription REBECCA CASTRO 04/19/2018 [facility] OFFICE/OUT PATIENT VISIT EST [id number] ICD-10-CM I10. Essential (primary) hypertension with Provider Comments: Hypertension (SCT [id number]) ELLEN POST 05/22/2018 [facility] OFFICE CON SULTATION [id number] ICD-10-CM J44.9 Chronic obstructive pulmonary disease, unspecified with Provider Comments: Chronic obstructive lung disease (SCT [id number]) JASON LARRY 05/25/2018 [facility] Outpatient Encounter [id number] ICD-10-CM I35.9 Nonrheumatic aortic valve disorder, unspecified with Provider Comments: Nonrheumatic Aortic Valve Disorder, unspecified MARY FIELD 06/06/2018 [facility] Outpatient Encounter [id number] ICD-10-CM I35.9 Nonrheumatic aortic valve disorder, unspecified with Provider Comments: Aortic Valve Disorder (SCT [id number]) ELLEN POST 06/06/2018 [facility] Outpatient Encounter [id number] _MAPID:en [id number] 07/12/2018 [facility] Outpatient Encounter [id number] _MAPID:en [id number] 08/15/2018 [facility] Outpatient Encounter [id number] ICD-10- CM F43.12 Post-traumatic stress disorder, chronic with Provider Comments: Post-Traumatic Stress Disorder, Chronic BENY LEDEZMA 08/15/2018 [facility] Outpatient Encounter [id number] _MAPID: [id number] GUADALUPE,UZAIR 08/15/2018 [facility] Outpatient Encounter [id number] _MAPID: Kia BUTCHER,UZAIR 08/29/2018 [facility] Outpatient Encounter [id number] _MAPID:en dReason7 12/31/2018 [facility] Outpatient Encounter [id number] _MAPID:en dReason6 01/07/2019 [facility] Outpatient Encounter [id number] _MAPID:en dReason5 02/13/2019 [facility] Outpatient Encounter [id number] _MAPID:en dReason4 03/07/2019 [facility] Outpatient Encounter [id number] _MAPID:en dReason3 05/16/2019 [facility] Outpatient Encounter [id number] _MAPID:en dReason2 05/27/2019 [facility] OFFICE/OUT PATIENT VISIT EST [id number] ICD-10- CM K21.9 Gastro-esophageal reflux disease without esophagitis with Provider Comments: GERD - Gastro-esophageal reflux disease ([facility] [id number]) CRISELDA 05/28/2019 [facility] Procedures No Data Provided for This Section Social History Combined list of available smoking, tobacco, and other social history on record at Department of Defense and/or [facility] Affairs facilities. The included entrie s comply with the patient's data sharing authorizations. Social History Type Response Date Comment Source Tobacco smoking status NHIS VA-TOBACCO QUIT 15 YRS OR MORE 03/07/2019 [facility] History of tobacco use V16 T OBACCO USE SCREEN 03/07/2019 [facility] History of tobacco use VA-TO BACCO FORMER USER 03/07/2019 [facility] History of tobacco use VA-TO BACCO FORMER USER 05/03/2018 [facility] History of tobacco use VA-TO BACCO QUIT 15 YRS OR MORE 05/03/2018 [facility] History of tobacco use V16 T OBACCO USE SCREEN 05/03/2018 [facility] History of tobacco use V16 T OBACCO USE SCREEN 08/01/2017 [facility] History of tobacco use V16 T OBACCO CESSATION >7 YEARS 08/01/2017 [facility] History of tobacco use V16 T OBACCO USE SCREEN 10/29/2015 [facility] History of tobacco use V16 T OBACCO CESSATION >7 YEARS 10/29/2015 [facility] History of tobacco use V16 T OBACCO USE SCREEN 06/25/2014 [facility] History of tobacco use V16 T OBACCO CESSATION >7 YEARS 06/25/2014 quit 20 years ago [facility] History of tobacco use V16 T OBACCO USE SCREEN 05/24/2013 [facility] History of tobacco use V16 T OBACCO CESSATION >7 YEARS 05/24/2013 [facility] Assessment and Plan No Data Provided for This Section Plan of Care No Data Provided for This Section Family History No Data Provided for This Section Advance Directives No Data Provided for This Section Functional Status No Data Provided for This Section
--- OUTSIDE RECORDS SUMMARY | 2019-10-03 14:01 | XMS REPORT | Encounter Summary ---
Author Author Department of [facility] SOLITARIO duenas Organization Department of [facility] Address [address] [place] [address] Phone Unavailable Care Team Providers Care County Assessor Name Role Phone SUNERNESTO JohnsonCRISELDA PCP Unavailable Insurance Providers: All historical and [...] Mar 03, 2010 RR PART A [id number] SOLITARIO CHEW PATIENT MEDICARE (WNR) MEDICARE (M) RR PART B Mar 03, 2010 RR PART B [id number] SOLITARIO CHEW PATIENT [facility] (RR SUPS) MEDIGAP PLAN F RAILROAD PLAN F Apr 03 15 [id number] SOLITARIO CHEW PATIENT Selected Encounter This section includes the information on record at [place] for the Encounter. Date/Time Encounter Type Encounter Description Reason Provider Source May 27, 2019 03:48 PM Outpatient Encounter ADMIN PAT ACTIVTIES (LUDINNO NCT) VERONICA MCDONNELL IHE Encounter Template Text not used by VA Assessments - Encounter Diagnoses No Data Provided for This Section Plan of Treatment: Future Appointments (+ 6 months) and Future Tests (+/- 45 day s) The Plan of Treatment section includes future care activities for the patient fr om all [facility] facilities. This section includes future appointments and fu ture orders which are active, pending or scheduled. Future Appointments This section includes appointments that were scheduled t o occur 6 months from the date of the Encounter, up to a maximum of 20 appointme nts. The data comes from all [facility]. Appointment Date/Time Appointment Type Appointment Facili ty Name May 28, 2019 10:30 AM AMBULATORY - NONE VERONICA MCDONNELL May 28, 2019 12:30 PM AMBULATORY - MEDICINE [facility] Active, Pending, and Scheduled Orders This section [...] Encounter. The data comes from all [facility]. Test Date/Time Test Type Test Details Facility Name May 28, 2019 12:00 AM Laboratory - Chemistry Order LDL KIKE STEROL (CALCULATED) BLOOD SERUM SP [facility] Surgical Procedures: All associated to the encounter No Data Provided for This Section Lab Results: +/- 30 days of the encounter This section includes the Chemistry and Hematology Lab R esults on record with [place] for the patient. Radiology Reports and Pathology Report s are provided separately, in subsequent sections. Lab Results This section contains the Chemistry/Hematology Results sabrina t were resulted 30 days before or 30 days after the date of the Encounter. Date/Time Source Result Type Result - Unit Interpretation Reference Range Comment May 28, 2019 11:47 AM [facility] LIPID PROFILE Specimen Type: SERUM No comment entered. CHOLESTEROL, TOTAL (FV) 150 mg/dL 118-20 0 TRIGLYCERIDE (FV) 53 mg/dL <200 LDL CHOLESTEROL (CALCULATED) 86 HDL CHOLESTEROL (FV) 53 mg/dL >40 May 28, 2019 11:47 AM [facility] RENAL+LIVER PROFILE (FV) Specimen Type: SERUM [...] and tobacco- related health factors from the [place] facility where the Encounter took place. Current [...] Encoun ter. The data comes from the [place] facility where the Encounter took place. Date/Time Smoking Status/Tobacco Use Comment [facility] May 03, 2018 12:14 PM VA-TOBACCO FORMER [...] the patient. The data comes from a ll [place] treatment facilities. It does not list Allergies/ADRs [...] VA pharmacy in the last 15 m [facility], and 2) all medications recorded in the [place] medical record as "non-VA medic ations". Pharmacy terms refer to VA pharmacy's work on prescriptions. VA patient s are advised to take their medications as instructed by their health care team. The data comes from all [place] treatment facilities. Glossary of Pharmacy Terms:Active = A prescription that can be filled at the local VA pharmacy.Active: On Hold = An active prescription that will not be filled until pharmacy resolves the issue.Active: Susp = An active prescription that is not scheduled to be filled yet.Clinic Order = A medication received during a visit to a [place] clinic or emergency department (currently not available).Discontinued = A prescription stopped by a AR provider. It is no longer available to be filled. = A prescription which is too old to fill. This does not refer to the expiration date of the medication in the container. Non-VA = A medication that came from someplace other than a VA pharmacy. This may be a prescription from either the VA or other providers that was filled outside the [place]. Or, it may be an over the [...] SHORTNESS OF BREATH 120 May 23, 2019 [id number] Mar 07, 2019 ELLEN POST ALENDRONATE 70MG TAB Active: Susp TAKE ONE TABLET BY MOUTH 1 TIME PER WEEK TAKE 30 MINUTES BEFORE FIRST FOOD, BEVERAGE OR MEDICATION OF THE DAY. DRINK WITH FULL GLASS OF WATER. REMAIN IN UPRIGHT POSITION FOR AT LEAST 30 MINUTES FOL LOWING DOSE. 12 Apr 16, 2020 [id number] Nov 01, 2019 CRISELDA SUN IN [facility] CLINIC ALENDRONATE 70MG TAB Discontinued TAKE ONE TABLET BY MOUTH 1 TIME PER WEEK TAKE 30 MINUTES BEFORE FIRST FOOD, BEVERAGE OR MEDICATION OF THE DAY. DRINK WITH FULL GLASS OF WATER. REMAIN IN UPRIGHT POSITION FOR AT LEAST 30 MINUTES FOL LOWING DOSE. 12 May 23, 2019 [id number] Mar 14, 2019 ELLEN POST [facility] AMLODIPINE BESYLATE 5MG/BENAZEPRIL HCL 10MG CAP Active: Susp TAKE 1 CAPSULE BY MOUTH ONCE DAILY 90 May 28, 2020 [id number] Oct 19, 2019 CRISELDA SUN [facility] AMLODIPINE BESYLATE 5MG/BENAZEPRIL HCL 10MG CAP Discontinued TAKE 1 CAPSULE BY MOUTH ONCE DAILY 90 August 16, 2019 [id number] May 02, 2019 ELLEN POST [facility] ASCORBIC ACID 500MG TAB Non-VA TAKE ONE TABLET BY MOUTH ONCE DAILY Non-VA Documented by: SHUKRI HALL nted at: [facility] ATORVASTATIN CA 10MG TAB Active: Susp TAKE ONE TABLET BY MOUTH AT BEDTIME FOR CHOLESTEROL - DO NOT TAKE WITH GRAPEFRUIT JUICE 90 Apr 16, 2020 [id number] Dec 19, [facility] 10MG TAB Discontinued TAKE ONE TABLET BY MOUTH AT BEDTIME FOR CHOLESTEROL - DO NOT TAKE WITH GRAPEFRUIT JUICE 90 Jul 17, 2019 [id number] Apr 03, 2019 ELLEN POST [facility] ATORVASTATIN CA 20MG TAB Discontinued TAKE ONE-HALF T ABLET BY MOUTH AT BEDTIME FOR CHOLESTEROL - DO NOT TAKE WITH GRAPEFRUIT JUICE 45 May 23, 2019 [id number] Mar 26, 2019 ELLEN POST ID BACLOFEN 20MG TAB Active: On Hold TAKE ONE-HALF TABLET BY MOUTH AT BEDTIME -(MAY CAUSE DROWSINESS) 45 Apr 16, 2020 [id number] Jun 14, 2019 CRISELDA SUN [facility] BACLOFEN 20MG TAB Discontinued TAKE ONE-HALF TABLET BY MOUTH AT BEDTIME -(MAY CAUSE DROWSINESS) 45 May 23, 2019 [id number] Mar 26, 2019 ELLEN POST CHOLECALCIFEROL 1000UNT TAB Non-VA TAKE TWO TABLETS BY MOUTH TWICE A DAY Non-VA Documented by: SHUKRI HALL nted at: [facility] DULOXETINE HCL 30MG CAP,EC Non-VA TAKE 1 CAPSULE BY MOUTH ONCE DAILY Non-VA Documented by: CRISELDA SUN nted at: [facility] FERROUS SO4 324MG TAB,EC Non-VA TAKE ONE TABLET BY MOUTH ONCE DAILY Non-VA Documented by: SHUKRI HALL nted at: [facility] FLUTICASONE 200MCG/VILANTEROL 25MCG INHL,ORAL,30D Active INHALE 1 INHALATION (200/25) BY MOUTH ONCE DAILY FOR CHRONIC OBSTRUCTIVE PULMONARY DISEASE OR EMPHYSEMA(CONSULT APPROVED) Jun 12, 2020 [id number] Sep 16, 2019 CRISELDA SUN [facility] FLUTICASONE 200MCG/VILANTEROL 25MCG INHL,ORAL,30D Discontinu ed INHALE 1 INHALATION (200/25) BY MOUTH ONCE DAILY FOR CHRONIC OBSTRUCTIVE PULMONARY DISEASE OR EMPHYSEMA(CONSULT APPROVED) May 23, 2019 [id number] 2019 [facility] FOLIC ACID 1MG TAB Active: Susp TAKE ONE TABLET BY MOUTH QD WITH FO OD 90 Mar 07, 2020 [id number] Oct 24, 2019 ELLEN POST [facility] FOLIC ACID 1MG TAB Discontinued TAKE ONE TABLET BY MOUTH QD WITH FO OD 90 May 23, 2019 [id number] Feb 06, 2019 [facility] HYDROCODONE 10MG/ACETAMINOPHEN 325MG TAB Non-VA TAKE ONE TABLET BY MOUTH EVERY 4 HOURS NEEDED Non-VA Documented by: RICARDO ANTHONY nted at: [facility] LIDOCAINE 5% PATCH Active: Susp APPLY 1 PATCH TO THE SKIN ONCE DAILY FOR PAIN (PATCH SHOULD BE REMOVED AFTER 12 HOURS) 90 Mar 07, 2020 [id number] Nov 25, 2019 [facility] METHOTREXATE NA 2.5MG TAB Active: Susp TAKE SIX TABLE TS BY MOUTH 1 TIME PER WEEK (ONCE EVERY 7 DAYS) CHOICE 72 Mar 07, 2020 [id number] Nov ELLEN POST [facility] METHOTREXATE NA 2.5MG TAB Discontinued TAKE SIX TABLE TS BY MOUTH 1 TIME PER WEEK (ONCE EVERY 7 DAYS) CHOICE Jul 18, 2019 [id number] Oct JOE P[facility] OMEPRAZOLE 20MG CAP,EC Discontinued TAKE 2 CAPSULES B Y MOUTH ONCE DAILY FOR THE STOMACH 180 Apr 16, 2020 [id number] Jun 14, 2019 CRISELDA SUN [facility] OMEPRAZOLE 20MG CAP,EC Discontinued TAKE 2 CAPSULES B Y MOUTH ONCE DAILY FOR THE STOMACH 180 May 23, 2019 [id number] Mar 26, 2019 ELLEN POST ID PANTOPRAZOLE NA 40MG TAB,EC Active: Susp TAKE ONE TAB LET BY MOUTH EVERY MORNING FOR THE STOMACH 90 May 28, 2020 [id number] Nov 14, 2019 CRISELDA SUN [facility] ROPINIROLE HCL 2MG TAB N on-VA TAKE ONE TABLET BY MOUTH ONCE DAILY Non-VA Documented by: CRISELDA SUN nted at: [facility] TERAZOSIN HCL 2MG CAP Active: Susp TAKE 1 CAPSULE BY MOUTH TWICE A DAY FOR PROSTATE / MAY CAUSE LIGHTHEADEDNESS WHEN STANDING 180 Mar 07, 2020 [id number] Oct 24, 2019 ELLEN POST [facility] TERAZOSIN HCL 2MG CAP Discontinued TAKE 1 CAPSULE BY MOUTH TWICE A DAY FOR PROSTATE / MAY CAUSE LIGHTHEADEDNESS WHEN STANDING 180 May 23, 2019 [id number] Feb 11, 2019 ELLEN POST [facility] ZOLPIDEM TARTRATE 10MG TAB Non-VA TAKE ONE TABLET BY MOUTH AT BEDTIME Non-VA Documented by: ELLEN POST nted at: [facility]ON[facility] MCDONNELL Problems (Conditions): All historical and current Section Date Range: From patient's date of to the date document was create d. This section includes a list of Problems (Conditions) know n to [facility] for the patient. It includes both active and inacti ve problems (conditions). The data comes from all [place] treatment facilities. Problem Status Problem Code Date of Onset Date of Resolution Comm ent(s) Provider Source Anemia (SNOMED CT 344363735) Active 285.9 Jul 24, 2014 Entered By: MINNA PANTOJA Comment: 07/16 Hb corrected to 13.5 MINNA PANTOJA [facility] Aortic Valve Disorder (SCT 7304444) Active 1837051 Jun 06, 2018 Entered By: ELLEN POST Comment: 06/2018 Murmur/ECHO = Mild aortic valve disease, EF 60-65% ELLEN POST [facility] Bilateral posterior vitreous detachment Active [id number] [facility] Martinez [employer] [facility] Chronic obstructive lung disease (SNOMED CT 02402924) Active 1364 5005 Jun 25, 2014 Entered By: MINNA PANTOJA Comment: ex-smoker 0 [facility] Dry eyes Active 402411868 [facility] Michelle [facility] GERD - Gastro-esophageal reflux disease Active 298060859 SHUKRI HALL [employer] [facility] H/O: surgery Active [id number] Jul 24, 2014 Entered By: MINNA PANTOJA Comment: Colon resection (perforation) 2007Apr 2014 Entered By: MINNA PANTOJA Comment: 2012 colonoscopy negJul 24, 2014 Entered By: MINNA PANTOJA Comment: 2012 L inguinal hernia repair. MINNA PANTOJA [facility] Hyperlipidemia (SNOMED CT 55527389) Active 68491843 Jul 23, 2014 Entered By: MINNA PANTOJA Comment: 07/15 TC 128 SHUKRI HALL [facility] Hypertension (SNOMED CT 56686979) Active 02005267 SHUKRI HALL [facility] Osteoarthritis (SNOMED CT 006413903) Active 715.90 MONIQUE ROMERO J [employer] [facility] Osteoporosis (SNOMED CT 82457657) Active 01828234 Jul 24, 2014 Entered By: MINNA PANTOJA Comment: hx of compression fx L spineApr 2014 Entered By: MINNA PANTOJA Comment: 07/16 Trial of tramadol for chronic back pain ISABELSHUKRI Baltazar [facility] Posttraumatic stress disorder (SNOMED CT 84970322) Active 44762823 UZAIR BUTCHER [employer] [facility] Recurrent major depression Active 71662478 CORS ON,VALERIA Arroyo [facility] Rheumatoid arthritis (SNOMED CT 22599583) Active 57590168 Jun 25, 2014 Entered By: MINNA PANTOJA Comment: 05/17 sed rate 47 RF 20 SHUKRI HALL [facility] Relationship problems Inactive [id number] Jul 24, 2014 CO RSON,VALERIA Arroyo [facility] Radiology Reports: +/- 30 days of the encounter No Data Provided for This Section Pathology Reports: +/- 30 days of the encounter No Data Provided for This Section Encounter Notes: All associated encounter notes This section contains the clinical notes associated to the Encounter. Date/Time Encounter Note(s) Provider Source May 27, 2019 03:48 PM TELEPHONE ENCOUNTER NOTE: LOCAL TITLE: TELECARE STANDARD TITLE: TELEPHONE ENCOUNTER NOTE DATE OF NOTE: MAY 27, 2019@15:48 ENTRY DATE: MAY 27, 2019@15:48:41 AUTHOR: CORNELL MURRIETA EXP COSIGNER: URGENCY: STATUS: COMPLETED PATIENT NAME: SOLITARIO CHEW SSN: [id number] FUTURE APPOINTMENTS: May@10:30 [facility] FASTING May@12:30 [facility] TM 4 PATIENT'S HOME PHONE: REASON FOR CALL: confirm appts for 05/28/2019 FOLLOW UP: LVM (Patient has been instructed to go to [facility] Emergency Room or to seek care elsewhere. FINANCIAL DISCLAIMER was read to caller ( ) Yes ( ) Not Applicable) FINANCIAL DISCLAIMER: "This is not an authorization for VA Payment" and also "Have hospital contact the nearest [place] Facility for transfer upon stabilization". /jacqui/ CORNELL MURRIETA LPN [facility] Signed: 05/27/2019 15:49 CORNELL MURRIETA [facility]
--- OUTSIDE RECORDS SUMMARY | 2019-10-03 14:01 | XMS REPORT | Encounter Summary ---
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 Date/Time Encounter Type Encounter Description Reason Provider Source Mar 07, 2019 05:16 PM Outpatient Encounter PRIMARY CARE/MEDICINE VERONICA MCDONNELL IHE Encounter Template Text not used by [place] Assessments - Encounter Diagnoses No Data Provided for This Section Plan of Treatment: Future Appointments (+ 6 months) and Future Tests (+/- 45 day s) The Plan of Treatment section includes future care activities for the patient fr om all [place] treatment facilities. This section includes future appointments and fu ture orders which are active, pending or scheduled. Future Appointments This section includes appointments that were scheduled t o occur 6 months from the date of the Encounter, up to a maximum of 20 appointme nts. The data comes from all [place] treatment facilities. Appointment Date/Time Appointment Type Appointment Gauri westfall Name May 16, 2019 08:00 AM AMBULATORY - NONE [facility] [place] May 28, 2019 10:30 AM AMBULATORY - NONE VERONICA MCDONNELL May 28, 2019 12:30 PM AMBULATORY - MEDICINE [facility] Surgical Procedures: All associated to the encounter No Data Provided for This Section Lab Results: +/- 30 days of the encounter No Data Provided for This Section Vital Signs: All taken on the encounter [...] 03, 2018 12:14 PM VA-TOBACCO FORMER USER [facility] Tobacco Use History This section includes a history of the smoking, or tobacco -related health factors, that were collected on or before the date of the Encoun ter. The data comes from the [place] facility where the Encounter took place. Date/Time Smoking Status/Tobacco Use Comment [facility] May 03, 2018 12:14 PM VA-TOBACCO FORMER USER [place] [facility] May 03, 2018 12:14 PM VA-TOBACCO QUIT 15 YRS OR MORE FACALDERON TEVDARIUS MCDONNELL Advance Directives: All historical and current No Data Provided for This Section Allergies and Adverse Reactions (ADRs): All historical and current Section Date Range: From patient's date of to the date document was create d. This section includes Allergies and Adverse Reactions (ADR s) on record with VA for the patient. The data comes from a ll [place] treatment facilities. It does not list Allergies/ADRs that were removed or entered in error. Some allergies/ADRs may be reported in t he Immunization section. Allergen Event Date Event Type Reaction(s) Severity Source [place] Sep 04, 2013 Propensity to adverse reactions to drug (disorder) Lip swellingPharyngeal swelling VERONICA MCDONNELL BUDESONIDE Jun 01, 2017 Propensity to adverse reactions to drug (disorder) EruptionItching CHRISANMOLDARIUS MCDONNELL XANAX May 24, 2013 Propensity to adverse reactions to drug (disorder) Hallucinations VERONICA MCDONNELL Medications: VA dispensed (-15 months) and Non-VA Documented (Obtained Outside A) Section Date Range: 1) prescriptions processed by a VA pharmacy in the last 15 m [facility], and 2) all medications recorded in the [place] medical record as "non-VA medic ations". Pharmacy terms refer to VA pharmacy's work on prescriptions. VA patient s are advised to take their medications as instructed by their health care team. The data comes from all [place] treatment facilities. Glossary of Pharmacy Terms:Active = A prescription that can be filled at the local [place] pharmacy.Active: On Hold = An active prescription that will not be filled until pharmacy resolves the issue.Active: Susp = An active prescription that is not scheduled to be filled yet.Clinic Order = A medication received during a visit to a [place] clinic or emergency department (currently not available).Discontinued [...] other providers that was filled outside the [facility]. Or, it may be an over the [...] SHORTNESS OF BREATH 120 May 23, 2019 [id number] Mar 07, 2019 ELLEN POST ALENDRONATE 70MG TAB Active: Susp TAKE ONE TABLET BY MOUTH 1 TIME PER WEEK TAKE 30 MINUTES BEFORE FIRST FOOD, BEVERAGE OR MEDICATION OF THE DAY. DRINK WITH FULL GLASS OF WATER. REMAIN IN UPRIGHT POSITION FOR AT LEAST 30 MINUTES FOL LOWING DOSE. 12 Apr 16, 2020 [id number] Nov 01, 2019 CRISELDA SUN [facility] ALENDRONATE 70MG TAB Discontinued TAKE ONE TABLET BY MOUTH 1 TIME PER WEEK TAKE 30 MINUTES BEFORE FIRST FOOD, BEVERAGE OR MEDICATION OF THE DAY. DRINK WITH FULL GLASS OF WATER. REMAIN IN UPRIGHT POSITION FOR AT LEAST 30 MINUTES FOL LOWING DOSE. 12 May 23, 2019 [id number] Mar 14, 2019 ELLEN POST [facility] AMLODIPINE BESYLATE 5MG/BENAZEPRIL HCL 10MG CAP Active: Susp TAKE 1 CAPSULE BY MOUTH ONCE DAILY 90 May 28, 2020 [id number] Oct 19, 2019 CRISELDA SUN [facility] AMLODIPINE BESYLATE 5MG/BENAZEPRIL HCL 10MG CAP Discontinued TAKE 1 CAPSULE BY MOUTH ONCE DAILY 90 August 16, 2019 [id number] May 02, 2019 ELLEN POST [facility] ASCORBIC ACID 500MG TAB Non-VA TAKE ONE TABLET BY MOUTH ONCE DAILY Non-VA Documented by: SHUKRI HALL nted at: [facility] ATORVASTATIN CA 10MG TAB Active: Susp TAKE ONE TABLET BY MOUTH AT BEDTIME FOR CHOLESTEROL - DO NOT TAKE WITH GRAPEFRUIT JUICE 90 Apr 16, 2020 [id number] Dec 19, 2019 CRISELDA SUN [facility] ATORVASTATIN CA 10MG TAB Discontinued TAKE ONE TABLET BY MOUTH AT BEDTIME FOR CHOLESTEROL - DO NOT TAKE WITH GRAPEFRUIT JUICE 90 Jul 17, 2019 [id number] Apr 03, 2019 ELLEN POST [facility] ATORVASTATIN CA 20MG TAB Discontinued TAKE ONE-HALF T ABLET BY MOUTH AT BEDTIME FOR CHOLESTEROL - DO NOT TAKE WITH GRAPEFRUIT JUICE 45 May 23, 2019 [id number] Mar 26, [address] BACLOFEN 20MG TAB Active: On Hold TAKE ONE-HALF TABLET BY MOUTH AT BEDTIME -(MAY CAUSE DROWSINESS) 45 Apr 16, 2020 [id number] Jun 14, 2019 CRISELDA SUN [facility] BACLOFEN 20MG TAB Discontinued TAKE ONE-HALF TABLET BY MOUTH AT BEDTIME -(MAY CAUSE DROWSINESS) 45 May 23, 2019 [id number] Mar 26, [address] CHOLECALCIFEROL 1000UNT TAB Non-VA TAKE TWO TABLETS BY MOUTH TWICE A DAY Non-VA Documented by: SHUKRI HALL nted at: VERONICA MCDONNELL DULOXETINE HCL 30MG CAP,EC Non-VA TAKE 1 CAPSULE BY MOUTH ONCE DAILY Non-VA Documented by: CRISELDA SUN nted at: [facility] FERROUS SO4 324MG TAB,EC Non-VA TAKE ONE TABLET BY MOUTH ONCE DAILY Non-VA Documented by: SHUKRI HALL nted at: [facility] FLUTICASONE 200MCG/VILANTEROL 25MCG INHL,ORAL,30D Active INHALE 1 INHALATION (200/25) BY MOUTH ONCE DAILY FOR CHRONIC OBSTRUCTIVE PULMONARY DISEASE OR EMPHYSEMA(CONSULT APPROVED) Jun 12, 2020 [id number] Sep 16, 2019 CRISELDA SUN [facility] FLUTICASONE 200MCG/VILANTEROL 25MCG INHL,ORAL,30D Discontinu ed INHALE 1 INHALATION (200/25) BY MOUTH ONCE DAILY FOR CHRONIC OBSTRUCTIVE PULMONARY DISEASE OR EMPHYSEMA(CONSULT APPROVED) May 23, 2019 [id number] Ja n 2019 ELLEN POST [facility] FOLIC ACID 1MG TAB Active: Susp TAKE ONE TABLET BY MOUTH QD WITH FO OD 90 Mar 07, 2020 [id number] Oct 24, 2019 ELLEN POST [facility] FOLIC ACID 1MG TAB Discontinued TAKE ONE TABLET BY MOUTH QD WITH FO OD 90 May 23, 2019 [id number] Feb 06, 2019 ELLEN POST [facility] HYDROCODONE 10MG/ACETAMINOPHEN 325MG TAB Non-VA TAKE ONE TABLET BY MOUTH EVERY 4 HOURS NEEDED Non-VA Documented by: RICARDO ANTHONY nted at: [facility]ONICA MCDONNELL LIDOCAINE 5% PATCH Active: Susp APPLY 1 PATCH TO THE SKIN ONCE DAILY FOR PAIN (PATCH SHOULD BE REMOVED AFTER 12 HOURS) 90 Mar 07, 2020 [id number] Nov 25, 2019 ELLEN POST [facility] METHOTREXATE NA 2.5MG TAB Active: Susp TAKE SIX TABLE TS BY MOUTH 1 TIME PER WEEK (ONCE EVERY 7 DAYS) CHOICE 72 Mar 07, 2020 [id number] Nov ELLEN POST [facility] METHOTREXATE NA 2.5MG TAB Discontinued TAKE SIX TABLE TS BY MOUTH 1 TIME PER WEEK (ONCE EVERY 7 DAYS) CHOICE 24 Jul 18, [id number] [facility] OMEPRAZOLE 20MG CAP,EC Discontinued TAKE 2 CAPSULES B Y MOUTH ONCE DAILY FOR THE STOMACH 180 Apr 16, 2020 [id number] Jun 14, 2019 CRISELDA SUN [facility] OMEPRAZOLE 20MG CAP,EC Discontinued TAKE 2 CAPSULES B Y MOUTH ONCE DAILY FOR THE STOMACH 180 May 23, 2019 [id number] Mar 26, [address] PANTOPRAZOLE NA 40MG TAB,EC Active: Susp TAKE ONE TAB LET BY MOUTH EVERY MORNING FOR THE STOMACH 90 May 28, 2020 [id number] Nov 14, 2019 [facility] ROPINIROLE HCL 2MG TAB N on-VA TAKE ONE TABLET BY MOUTH ONCE DAILY Non-VA Documented by: CRISELDA SUN nted at: [facility] TERAZOSIN HCL 2MG CAP Active: Susp TAKE 1 CAPSULE BY MOUTH TWICE A DAY FOR PROSTATE / MAY CAUSE LIGHTHEADEDNESS WHEN STANDING 180 Mar 07, 2020 [id number] Oct 24, 2019 ELLEN POST [facility] TERAZOSIN HCL 2MG CAP Discontinued TAKE 1 CAPSULE BY MOUTH TWICE A DAY FOR PROSTATE / MAY CAUSE LIGHTHEADEDNESS WHEN STANDING 180 May 23, 2019 [id number] Feb 11, 2019 ELLEN POST [facility] ZOLPIDEM TARTRATE 10MG TAB Non-VA TAKE ONE [...] problems (conditions). The data comes from all [place] treatment facilities. Problem Status Problem Code Date of Onset Date of Resolution Comm ent(s) Provider Source Anemia (SNOMED CT 688509359) Active 285.9 Jul 24, 2014 Entered By: MINNA PANTOJA Comment: 07/16 Hb corrected to 13.5 MINNA PANTOJA [facility] Aortic Valve Disorder (SCT 8919325) Active 5790715 Jun 06, 2018 Entered By: ELLEN POST Comment: 06/2018 Murmur/ECHO = Mild aortic valve disease, EF 60-65% ELLEN POST [facility] Bilateral posterior vitreous detachment Active 129971600054763 BRAYDEN TUCKER [facility] Chronic obstructive lung disease (SNOMED CT 08084775) Active 1364 5005 Jun 25, 2014 Entered By: MINNA PANTOJA Comment: ex-smoker 0 [facility] Dry eyes Active 968049448 BRAYDEN TUCKER [facility] GERD - Gastro-esophageal reflux disease Active 833828027 SHUKRI HALL [facility] H/O: surgery Active 443069400 Jul 24, 2014 Entered By: MINNA PANTOJA Comment: Colon resection (perforation) 2007Apr 2014 Entered By: MINNA PANTOJA Comment: 2012 colonoscopy negApr 2014 Entered By: MINNA PANTOJA Comment: 2012 L inguinal hernia repair. MINNA PANTOJA [facility] Hyperlipidemia (SNOMED CT 75699605) Active 24769130 Jul 23, 2014 Entered By: MINNA PANTOJA Comment: 07/15 TC 128 SHUKRI HALL [facility] [place] [facility] Hypertension (SNOMED CT 27210967) Active 76577500 SHUKRI HALL [facility] Osteoarthritis (SNOMED CT 664063037) Active 715.90 MONIQUE ROMERO [facility] Osteoporosis (SNOMED CT 63768979) Active 35412425 Jul 24, 2014 Entered By: MINNA PANTOJA Comment: hx of compression fx L spineApr 2014 Entered By: MINNA PANTOJA Comment: 07/16 Trial of tramadol for chronic back pain SHUKRI HALL [facility] Posttraumatic stress disorder (SNOMED CT 80889019) Active 19919600 UZAIR BUTCHER [facility] Recurrent major depression Active 48274622 [place] P [facility] Rheumatoid arthritis (SNOMED CT 51861266) Active 25422442 Jun 25, 2014 Entered By: MINNA PANTOJA Comment: 05/17 sed rate 47 RF 20 SHUKRI HALL [facility] Relationship problems Inactive [id number] Jul 24, 2014 [place] VAL[place] VAL[place]IA [facility] Radiology Reports: +/- 30 days of the encounter No Data Provided for This Section Pathology Reports: +/- 30 days of the encounter No Data Provided for This Section Encounter Notes: All associated encounter notes This section contains the clinical notes associated to the Encounter. Date/Time Encounter Note(s) Provider Source Mar 07, 2019 05:16 PM PRIMARY CARE NURSING NOTE: LOCAL TITLE: PRIMARY CARE/NURSE STANDARD TITLE: PRIMARY CARE NURSING NOTE DATE OF NOTE: MAR 07, 2019@17:16 ENTRY DATE: MAR 07, 2019@17:17:03 AUTHOR: ANASTACIO BUSTILLOS EXP COSIGNER: URGENCY: STATUS: COMPLETED Vet requesting Lidoderm topical patches 5% for chronic back pain. Spine is bone and bone and this seems to be controlling the pain much better than the topical asper cream type medications and lower strength otc patches. Discussed correct use, disposal process and to rotate sites, always removed the old patch before placing a new one- 12 hours on and 12 hours off. Will forward the request to provider for mail delivery, vet thanked for time. /jacqui/ ANASTACIO BUSTILLOS, MEAT CURER, REGISTERED NURSE-MARLY Signed: 03/07/2019 17:19 Receipt Acknowledged By: * AWAITING SIGNATURE * ELLEN POST [facility] [facility]
--- OUTSIDE RECORDS SUMMARY | 2019-10-03 14:01 | XMS REPORT | Encounter Summary ---
Author Author Department of [facility] SOLITARIO duenas Organization Department of [facility] Address [address] [place] [address] Phone Unavailable Care Team Providers Care Panelboard Tank Pumper Name Role Phone DINO CRISELDA PCP Unavailable [...] Mar 03, 2010 RR PART A [id number] SOLITARIO CHEW PATIENT MEDICARE (WNR) MEDICARE (M) RR PART B Mar 03, 2010 RR PART B [id number] SOLITARIO CHWE PATIENT [facility] MEDIGAP PLAN F RAILROAD PLAN F Apr 03 15 [id number] SOLITARIO CHEW PATIENT Selected Encounter This section includes the information on record at [place] for the Encounter. Date/Time Encounter Type Encounter Description Reason Provider Source Jan 07, 2019 11:12 AM Outpatient Encounter COMMUNITY CARE CONSULT VERONICA MCDONNELL IHE Encounter Template Text not used by VA Assessments - Encounter Diagnoses No Data Provided for This Section Plan of Treatment: Future Appointments (+ 6 months) and Future Tests (+/- 45 day s) The Plan of Treatment section includes future care activities for the patient fr om all [place] treatment facilities. This section includes future appointments and fu ture orders which are active, pending or scheduled. Future Appointments This section includes appointments that were scheduled t o occur 6 months from the date of the Encounter, up to a maximum of 20 appointme nts. The data comes from all [place] treatment facilities. Appointment Date/Time Appointment Type Appointment Gauri westfall Name Feb 21, 2019 10:00 AM AMBULATORY - NONE [place] May 16, 2019 08:00 AM AMBULATORY - NONE [place] May 28, 2019 10:30 AM AMBULATORY - NONE FAYETTRODRIILLE [place] May 28, 2019 12:30 PM AMBULATORY - MEDICINE [facility] Surgical Procedures: All [...] Encoun ter. The data comes from the [place] facility where the Encounter took place. Date/Time Smoking Status/Tobacco Use Comment [facility] it May 03, 2018 12:14 PM VA-TOBACCO FORMER USER CHANTELLEYETTRODRIILLE SATHYA May 03, 2018 12:14 PM VA-TOBACCO [...] patient. The data comes from a ll [place] treatment facilities. It does not list Allergies/ADRs [...] to adverse reactions to drug (disorder) Hallucinations CHANTELLESEA SATHYA Medications: VA dispensed (-15 months) and Non-VA Documented (Obtained Outside V A) Section Date Range: 1) prescriptions processed by a VA pharmacy in the last 15 m [facility], and 2) all medications recorded in the [place] medical record as "non-VA medic ations". Pharmacy terms refer to VA pharmacy's work on prescriptions. VA patient s are advised to take their medications as instructed by their health care team. The data comes from all [place] treatment facilities. Glossary of Pharmacy Terms:Active = A prescription that can be filled at the local [place] pharmacy.Active: On Hold = An active prescription that will not be filled until pharmacy resolves the issue.Active: Susp = An active prescription that is not scheduled to be filled yet.Clinic Order = A medication received during a visit to a [place] clinic or emergency department (currently not available).Discontinued [...] may be a prescription from either the [place] or other providers that was filled outside [...] SHORTNESS OF BREATH 120 May 23, 2019 [id number] Mar 07, 2019 ELLEN POST ALENDRONATE 70MG TAB Active: Susp TAKE ONE TABLET BY MOUTH 1 TIME PER WEEK TAKE 30 MINUTES BEFORE FIRST FOOD, BEVERAGE OR MEDICATION OF THE DAY. DRINK WITH FULL GLASS OF WATER. REMAIN IN UPRIGHT POSITION FOR AT LEAST 30 MINUTES FOL LOWING DOSE. 12 Apr 16, 2020 [id number] Nov 01, 2019 CRISELDA SUN [facility] ALENDRONATE 70MG TAB Discontinued TAKE ONE TABLET BY MOUTH 1 TIME PER WEEK TAKE 30 MINUTES BEFORE FIRST FOOD, BEVERAGE OR MEDICATION OF THE DAY. DRINK WITH FULL GLASS OF WATER. REMAIN IN UPRIGHT POSITION FOR AT LEAST 30 MINUTES FOL LOWING DOSE. 12 May 23, 2019 [id number] Mar 14, 2019 ELLEN POST [facility] AMLODIPINE BESYLATE 5MG/BENAZEPRIL HCL 10MG CAP Active: Susp TAKE 1 CAPSULE BY MOUTH ONCE DAILY 90 May 28, 2020 [id number] Oct 19, 2019 CRISELDA SUN [facility] AMLODIPINE BESYLATE 5MG/BENAZEPRIL HCL 10MG CAP Discontinued TAKE 1 CAPSULE BY MOUTH ONCE DAILY 90 August 16, 2019 [id number] May 02, 2019 ELLEN POST [facility] ASCORBIC ACID 500MG TAB Non-VA TAKE ONE TABLET BY MOUTH ONCE DAILY Non-VA Documented by: SHUKRI HALL nted at: [facility] ATORVASTATIN CA 10MG TAB Active: Susp TAKE ONE TABLET BY MOUTH AT BEDTIME FOR CHOLESTEROL - DO NOT TAKE WITH GRAPEFRUIT JUICE 90 Apr 16, 2020 [id number] Dec 19, 2019 CRISELDA SUN [employer] ATORVASTATIN CA 10MG TAB Discontinued TAKE ONE TABLET BY MOUTH AT BEDTIME FOR CHOLESTEROL - DO NOT TAKE WITH GRAPEFRUIT JUICE 90 Jul 17, 2019 [id number] Apr 03, 2019 ELLEN POST [facility] ATORVASTATIN CA 20MG TAB Discontinued TAKE ONE-HALF T ABLET BY MOUTH AT BEDTIME FOR CHOLESTEROL - DO NOT TAKE WITH GRAPEFRUIT JUICE 45 May 23, 2019 [id number] Mar 26, 2019 ELLEN POST [facility] BACLOFEN 20MG TAB Active: On Hold TAKE ONE-HALF TABLET BY MOUTH AT BEDTIME -(MAY CAUSE DROWSINESS) 45 Apr 16, 2020 [id number] Jun 14, 2019 CRISELDA SUN [facility] BACLOFEN 20MG TAB Discontinued TAKE ONE-HALF TABLET BY MOUTH AT BEDTIME -(MAY CAUSE DROWSINESS) 45 May 23, 2019 [id number] Mar 26, 2019 ELLEN POST ID CHOLECALCIFEROL 1000UNT TAB Non-VA TAKE TWO TABLETS BY MOUTH TWICE A DAY Non-VA Documented by: SHUKRI HALL nted at: [facility] DULOXETINE HCL 30MG CAP,EC Non-VA TAKE 1 CAPSULE BY MOUTH ONCE DAILY Non-VA Documented by: CRISELDA SUN nted at: [facility] FERROUS SO4 324MG TAB,EC Non-VA TAKE ONE TABLET BY MOUTH ONCE DAILY Non-VA Documented by: SHUKRI HALL nted at: [facility] FLUTICASONE 200MCG/VILANTEROL 25MCG INHL,ORAL,30D Active INHALE 1 INHALATION (200/25) BY MOUTH ONCE DAILY FOR CHRONIC OBSTRUCTIVE PULMONARY DISEASE OR EMPHYSEMA(CONSULT APPROVED) Jun 12, 2020 [id number] Sep 16, 2019 CRISELDA SUN [facility] FLUTICASONE 200MCG/VILANTEROL 25MCG INHL,ORAL,30D Discontinu ed INHALE 1 INHALATION (200/25) BY MOUTH ONCE DAILY FOR CHRONIC OBSTRUCTIVE PULMONARY DISEASE OR EMPHYSEMA(CONSULT APPROVED) May 23, 2019 [id number] Ja n [facility]MG TAB Active: Susp TAKE ONE TABLET BY MOUTH QD WITH FO OD 90 Mar 07, 2020 [id number] Oct 24, 2019 ELLEN POST [facility] FOLIC ACID 1MG TAB Discontinued TAKE ONE TABLET BY MOUTH QD WITH FO OD 90 May 23, 2019 [id number] Feb 06, 2019 ELLEN POST [facility] HYDROCODONE 10MG/ACETAMINOPHEN 325MG TAB Non-VA TAKE ONE TABLET BY MOUTH EVERY 4 HOURS NEEDED Non-VA Documented by: RICARDO ANTHONY nted at: [facility] LIDOCAINE 5% PATCH Active: Susp APPLY 1 PATCH TO THE SKIN ONCE DAILY FOR PAIN (PATCH SHOULD BE REMOVED AFTER 12 HOURS) 90 Mar 07, 2020 [id number] Nov 25, 2019 ELLEN POST [facility] METHOTREXATE NA 2.5MG TAB Active: Susp TAKE SIX TABLE TS BY MOUTH 1 TIME PER WEEK (ONCE EVERY 7 DAYS) CHOICE 72 Mar 07, 2020 [id number] [facility] 2.5MG TAB Discontinued TAKE SIX TABLE TS BY MOUTH 1 TIME PER WEEK (ONCE EVERY 7 DAYS) CHOICE 24 Jul 18, 2019 [id number] Oct [facility] OMEPRAZOLE 20MG CAP,EC Discontinued TAKE 2 CAPSULES B Y MOUTH ONCE DAILY FOR THE STOMACH 180 Apr 16, 2020 [id number] Jun 14, 2019 CRISELDA SUN [facility] OMEPRAZOLE 20MG CAP,EC Discontinued TAKE 2 CAPSULES B Y MOUTH ONCE DAILY FOR THE STOMACH 180 May 23, 2019 [id number] Mar 26, 2019 ELLEN POST PANTOPRAZOLE NA 40MG TAB,EC Active: Susp TAKE ONE TAB LET BY MOUTH EVERY MORNING FOR THE STOMACH 90 May 28, 2020 [id number] Nov 14, 2019 [facility] ROPINIROLE HCL 2MG TAB N on-VA TAKE ONE TABLET BY MOUTH ONCE DAILY Non-VA Documented by: CRISELDA SUN nted at: [facility] TERAZOSIN HCL 2MG CAP Active: Susp TAKE 1 CAPSULE BY MOUTH TWICE A DAY FOR PROSTATE / MAY CAUSE LIGHTHEADEDNESS WHEN STANDING 180 Mar 07, 2020 [id number] Oct 24, 2019 ELLEN POST [facility] TERAZOSIN HCL 2MG CAP Discontinued TAKE 1 CAPSULE BY MOUTH TWICE A DAY FOR PROSTATE / MAY CAUSE LIGHTHEADEDNESS WHEN STANDING 180 May 23, 2019 [id number] Feb 11, 2019 ELLEN POST [facility] ZOLPIDEM TARTRATE 10MG TAB Non-VA TAKE [...] problems (conditions). The data comes from all [place] treatment facilities. Problem Status Problem Code Date of Onset Date of Resolution Comm ent(s) Provider Source Anemia (SNOMED CT 949319800) Active 285.9 Jul 24, 2014 Entered By: MINNA PANTOJA Comment: 07/16 Hb corrected to 13.5 MINNA PANTOJA [facility] Aortic Valve Disorder (SCT 1907228) Active 2657660 Jun 06, 2018 Entered By: ELLEN POST Comment: 06/2018 Murmur/ECHO = Mild aortic valve disease, EF 60-65% ELLEN POST [facility] Bilateral posterior vitreous detachment Active 664400103142436 BRAYDEN TUCKER [facility] Chronic obstructive lung disease (SNOMED CT 12592240) Active 1364 5005 Jun 25, 2014 Entered By: MINNA PANTOJA Comment: ex-smoker 0 [facility] Dry eyes Active 797915964 [facility] GERD - Gastro-esophageal reflux disease Active 445268580 SHUKRI HALL Delaney [facility] H/O: surgery Active 581113703 Jul 24, 2014 Entered By: MINNA PANTOJA Comment: Colon resection (perforation) 2007Apr 2014 Entered By: MINNA PANTOJA Comment: 2012 colonoscopy negApr 2014 Entered By: MINNA PANTOJA Comment: 2012 L inguinal hernia repair. MINNA PANTOJA [facility] Hyperlipidemia (SNOMED CT 00084118) Active 19314481 Jul 23, 2014 Entered By: MINNA PANTOJA Comment: 07/15 TC 128 SHUKRI HALL Delaney [facility] Hypertension (SNOMED CT 18332319) Active 54121702 SHUKRI HALL Delaney [facility] Osteoarthritis (SNOMED CT 915635343) Active 715.90 MONIQUE ROMERO [facility] Osteoporosis (SNOMED CT 21262020) Active 72628593 Jul 24, 2014 Entered By: MINNA PANTOJA Comment: hx of compression fx L spineApr 2014 Entered By: MINNA PANTOJA Comment: 07/16 Trial of tramadol for chronic back pain SHUKRI HALL SON[facility] Posttraumatic stress disorder (SNOMED CT 38272249) Active 01010589 UZAIR BUTCHRE [facility] Recurrent major depression Active 62327110 [facility] [place] [facility] Rheumatoid arthritis (SNOMED CT 75923069) Active 37554907 Jun 25, 2014 Entered By: MINNA PANTOJA Comment: 05/17 sed rate 47 RF 20 SHUKRI HALL [facility] Relationship problems Inactive 666670990 Jul 24, 2014 [place] [facility] Radiology Reports: +/- 30 days of the encounter No Data Provided for This Section Pathology Reports: +/- 30 days of the encounter No Data Provided for This Section Encounter Notes: All associated encounter notes This section contains the clinical notes associated to the Encounter. Date/Time Encounter Note(s) Provider Source Jan 07, 2019 11:12 AM NONVA NOTE: LOCAL TITLE: COMMUNITY CARE-SCHEDULING STANDARD TITLE: NONVA NOTE DATE OF NOTE: JAN 07, 2019@11:12 ENTRY DATE: JAN 07, 2019@11:12:32 AUTHOR: CB BOLAND COSIGNER: URGENCY: STATUS: COMPLETED Patient Centered Community Care (PC3) Program Department of [facility] Choice Approval for Medical Care VA-Form [id number] Certain protected health information (PHI) may be enclosed; specifically information related to Drug Abuse, Alcoholism or Alcohol Abuse, Sickle Cell Anemia, and Human Immunodeficiency Virus (HIV). This specific PHI may NOT be re-disclosed or used by the recipient person or office for any purpose other than that for which the disclosure was made. [Ref. 38 [facility] 7332(b)(2)(H)(ii)] The information is b eing disclosed by [place] only for the treatment and care of the named patient in the health record. Accounting of disclosure must be maintained when required. Referral Urgency: Routine Indicate time frame for appointment: Clinically Indicated Date (GIOVANNY): Dec Category of Care/Type of Specialty: COMMUNITY CARE-RHEUM/ARTHRITIS Type of Specialist: RHEUM/ARTHRITIS Type of Service/Procedure: [facility] Office of Community Care - Standardized Episode of Care Rheumatology Comprehensive [facility] ID:[id number] Description:This authorization covers services associated with all medical care listed below for the referred condition on the consult. Duration:180 days Procedural Overview: 1. Initial outpatient evaluation and treatment for the referred condition on the consult 2. Diagnostic imaging relevant to the referred condition on the consult 3. Labs and pathology relevant to the referred condition on the consult 4. Diagnostic studies relevant to the referred condition on the consult 5. Laboratory monitoring needed for initial treatment and medication follow up 6. In-office procedures including but not limited to: injections 7. Infusion therapy and hydration in clinic as indicated for the referred condition on the consult 8. Port placement and flushing if clinically indicated for infusion therapy 9. Follow-up visits for the referred condition on the consult Please visit the [facility] Storefront [email or web address]/[email or web address]/index.[email or web address] for additional resources and requirements pertaining to the following bull; Pharmacy prescribing requirements bull; Durable Medical Equipment (DME), Prosthetics, and Orthotics prescribing requirements bull; Precertification (PRCT) process requirements bull; Request for Services (RFS) requirements [place] DSP-DST data saved prior to signing consult CAN Score: less than 75 Admin Screening Care Coordination: Basic Clinical Triage: Not Required Clothing Busheler may proceed with scheduling of appointment. Basic care coordination may include: -assistance with navigation -scheduling -post-appointment follow-up Upon consul t completion, a CPRS alert will be sent to ordering provider. Recommended frequency of contact: as needed Admin Staff alert, sending to: Leidy Caballero. Number of Visits, Frequency, and Duration: Approved for 6 months, 8 visits or [facility] Preferred Provider Name and Contact Information: Eligibility Verification: As the authorized VA client service representative, I hereby confirm that the [facility] is eligible for Community Care services. The 's basic eligibility was verified on . Contact the Facility Community Care Office first to provide information to the VA or to reach a VA ordering provider. All contact from the contractor will be documented in the 's record by the facility [place] community Care and the VA provider will be notified for awareness. Report all Critical Findings related to this authorization to the issuing office below. All other questions regarding this authorization should be directed to: JEOVANY HOWE Facility Community Care Office Contact: Facility Community Care general service officer or Equivalent: Name: MAREK SARAH Title: CHIEF, OFFICE OF COMMUNITY CARE Contact Number (Normal Business Hours):[phone] AOD/Emergency Contact After Hours Number: From Station Number: [id number] Facility Name: [facility] Street Address: [address] [place] [address] City: [place] State: [place] Zip: [address] Information: Name: SOLITARIO CHEW : Mar SSN: [id number] Address: SOLITARIO CHEW [address] [place] [id number] [facility] Alternate Phone: PATIENT WORK PHONE - UNANSWERED [facility] Alternate Address: Alternate POC for : Name: Address: Phone: In accordance with 38 CFR 17.3124-0823, [place] will pay for non-VA hospital care and medical services that are authorized by [place] for Veterans who are determined by [place] to meet the Veterans Choice Program eligibility criteria set forth by section 101 of the Act and 38 CFR 17.1510 and any other eligibility standards that may apply to particular services (such as health care for newborns of Veterans under 38 CFR 17.38(a)(xiv) and dental benefits under 17.160-17.169). /es/ CB BOLAND TICKET PRINTER Signed: 01/07/2019 11:13 CB BOLAND [facility]
--- OUTSIDE RECORDS SUMMARY | 2019-10-03 14:01 | XMS REPORT | Encounter Summary ---
Author Author Department of [facility] SOLITARIO duenas Organization Department of [facility] Address [address] [place] [address] Phone Unavailable Care Team Providers Care Peoplesoft Functional Analyst Name Role Phone DINO CRISELDA PCP Unavailable [...] Mar 03, 2010 RR PART A [id number] SOLITARIO CHEW PATIENT MEDICARE (WNR) MEDICARE (M) RR PART B Mar 03, 2010 RR PART B [id number] SOLITARIO CHEW PATIENT [facility] ([facility] MEDIGAP PLAN F RAILROAD PLAN F Apr 03 15 [id number] SOLITARIO CHEW PATIENT Selected Encounter This section includes the information on record at [place] for the Encounter. Date/Time Encounter Type Encounter Description Reason Provider Source Feb 13, 2019 09:02 AM Outpatient Encounter PRIMARY CARE/MEDICINE EVRONICA MCDONNELL IHE Encounter Template Text not used by [place] Assessments - Encounter Diagnoses No Data Provided for This Section Plan of Treatment: Future Appointments (+ 6 months) and Future Tests (+/- 45 day s) The Plan of Treatment section includes future care activities for the patient fr om all [place] treatment facilities. This section includes future appointments and fu ture orders which are active, pending or scheduled. Future Appointments This section includes appointments that were scheduled t o occur 6 months from the date of the Encounter, up to a maximum of 20 appointme nts. The data comes from all [place] treatment facilities. Appointment Date/Time Appointment Type Appointment Gauri ty Name Feb 21, 2019 10:00 AM [place]ULATORY [place] May 16, 2019 08:00 AM AMBULATORY - NONE [place] May 28, 2019 10:30 AM AMBULATORY - NONE [place] May 28, 2019 12:30 PM AMBULATORY - MEDICINE [facility] Surgical Procedures: All associated to the encounter [...] Encoun ter. The data comes from the [facility] facility where the Encounter took place. Date/Time Smoking Status/Tobacco Use Comment Facil ity May 03, 2018 12:14 PM VA-TOBACCO FORMER USER CHANTELLEYETTJEANNETTE MCDONNELL May 03, 2018 12:14 PM VA-TOBACCO [...] patient. The data comes from a ll [place] treatment facilities. It does not list Allergies/ADRs [...] to adverse reactions to drug (disorder) Hallucinations CHRISVIJAYAJEANNETTE MCDONNELL Medications: VA dispensed (-15 months) and Non-VA Documented (Obtained Outside V A) Section Date Range: 1) prescriptions processed by a VA pharmacy in the last 15 m [facility], and 2) all medications recorded in the [place] medical record as "non-VA medic ations". Pharmacy terms refer to VA pharmacy's work on prescriptions. VA patient s are advised to take their medications as instructed by their health care team. The data comes from all [place] treatment facilities. Glossary of Pharmacy Terms:Active = A prescription that can be filled at the local [place] pharmacy.Active: On Hold = An active prescription that will not be filled until pharmacy resolves the issue.Active: Susp = An active prescription that is not scheduled to be filled yet.Clinic Order = A medication received during a visit to a [place] clinic or emergency department (currently not available).Discontinued [...] may be a prescription from either the [place] or other providers that was filled outside [...] SHORTNESS OF BREATH 120 May 23, 2019 [id number] Mar 07, 2019 ELLEN POST ALENDRONATE 70MG TAB Active: Susp TAKE ONE TABLET BY MOUTH 1 TIME PER WEEK TAKE 30 MINUTES BEFORE FIRST FOOD, BEVERAGE OR MEDICATION OF THE DAY. DRINK WITH FULL GLASS OF WATER. REMAIN IN UPRIGHT POSITION FOR AT LEAST 30 MINUTES FOL LOWING DOSE. 12 Apr 16, 2020 [id number] Nov 01, 2019 CRISELDA SUN [facility] ALENDRONATE 70MG TAB Discontinued TAKE ONE TABLET BY MOUTH 1 TIME PER WEEK TAKE 30 MINUTES BEFORE FIRST FOOD, BEVERAGE OR MEDICATION OF THE DAY. DRINK WITH FULL GLASS OF WATER. REMAIN IN UPRIGHT POSITION FOR AT LEAST 30 MINUTES FOL LOWING DOSE. 12 May 23, 2019 [id number] Mar 14, 2019 ELLEN POST [facility] AMLODIPINE BESYLATE 5MG/BENAZEPRIL HCL 10MG CAP Active: Susp TAKE 1 CAPSULE BY MOUTH ONCE DAILY 90 May 28, 2020 [id number] Oct 19, 2019 CRISELDA SUN [facility] AMLODIPINE BESYLATE 5MG/BENAZEPRIL HCL 10MG CAP Discontinued TAKE 1 CAPSULE BY MOUTH ONCE DAILY 90 August 16, 2019 [id number] May 02, 2019 ELLEN POST [facility] ASCORBIC ACID 500MG TAB Non-VA TAKE ONE TABLET BY MOUTH ONCE DAILY Non-VA Documented by: SHUKRI HALL nted at: [facility] ATORVASTATIN [place] 10MG TAB Active: Susp TAKE ONE TABLET BY MOUTH AT BEDTIME FOR CHOLESTEROL - DO NOT TAKE WITH GRAPEFRUIT JUICE 90 Apr 16, 2020 [id number] Dec 19, 2019 CRISELDA SUN [facility] ATORVASTATIN [place] 10MG TAB Discontinued TAKE ONE TABLET BY MOUTH AT BEDTIME FOR CHOLESTEROL - DO NOT TAKE WITH GRAPEFRUIT JUICE 90 Jul 17, 2019 [id number] Apr 03, 2019 ELLEN POST [facility] ATORVASTATIN [place] 20MG TAB Discontinued TAKE ONE-HALF T ABLET BY MOUTH AT BEDTIME FOR CHOLESTEROL - DO NOT TAKE WITH GRAPEFRUIT JUICE 45 May 23, 2019 [id number] Mar 26, 2019 ELLEN POST DE BACLOFEN 20MG TAB Active: On Hold TAKE ONE-HALF TABLET BY MOUTH AT BEDTIME -(MAY CAUSE DROWSINESS) 45 Apr 16, 2020 [id number] Jun 14, 2019 CRISELDA SUN [facility] BACLOFEN 20MG TAB Discontinued TAKE ONE-HALF TABLET BY MOUTH AT BEDTIME -(MAY CAUSE DROWSINESS) 45 May 23, 2019 [id number] Mar 26, 2019 ELLEN POST DE CHOLECALCIFEROL 1000UNT TAB Non-VA TAKE TWO TABLETS BY MOUTH TWICE A DAY Non-VA Documented by: SHUKRI HALL nted at: [facility] DULOXETINE HCL 30MG CAP,EC Non-VA TAKE 1 CAPSULE BY MOUTH ONCE DAILY Non-VA Documented by: CRISELDA SUN nted at: [facility] FERROUS SO4 324MG TAB,EC Non-VA TAKE ONE TABLET BY MOUTH ONCE DAILY Non-VA Documented by: SHUKRI HALL nted at: [facility] FLUTICASONE 200MCG/VILANTEROL 25MCG INHL,ORAL,30D Active INHALE 1 INHALATION (200/25) BY MOUTH ONCE DAILY FOR CHRONIC OBSTRUCTIVE PULMONARY DISEASE OR EMPHYSEMA(CONSULT APPROVED) Jun 12, 2020 [id number] Sep 16, 2019 CRISELDA SUN [facility] FLUTICASONE 200MCG/VILANTEROL 25MCG INHL,ORAL,30D Discontinu ed INHALE 1 INHALATION (200/25) BY MOUTH ONCE DAILY FOR CHRONIC OBSTRUCTIVE PULMONARY DISEASE OR EMPHYSEMA(CONSULT APPROVED) May 23, 2019 [id number] Ja n 2019 ELLEN POST [facility] FOLIC ACID 1MG TAB Active: Susp TAKE ONE TABLET BY MOUTH QD WITH FO OD 90 Mar 07, 2020 [id number] Oct 24, 2019 ELLEN POST [facility] FOLIC ACID 1MG TAB Discontinued TAKE ONE TABLET BY MOUTH QD WITH FO OD 90 May 23, 2019 [id number] Feb 06, 2019 ELLEN POST [facility] HYDROCODONE 10MG/ACETAMINOPHEN 325MG TAB Non-VA TAKE ONE TABLET BY MOUTH EVERY 4 HOURS NEEDED Non-VA Documented by: RICARDO ANTHONY nted at: [facility] LIDOCAINE 5% PATCH Active: Susp APPLY 1 PATCH TO THE SKIN ONCE DAILY FOR PAIN (PATCH SHOULD BE REMOVED AFTER 12 HOURS) 90 Mar 07, 2020 [id number] Nov 25, 2019 ELLEN POST [facility] METHOTREXATE NA 2.5MG TAB Active: Susp TAKE SIX TABLE TS BY MOUTH 1 TIME PER WEEK (ONCE EVERY 7 DAYS) CHOICE 72 Mar 07, 2020 [id number] Nov [facility] METHOTREXATE NA 2.5MG TAB Discontinued TAKE SIX TABLE TS BY MOUTH 1 TIME PER WEEK (ONCE EVERY 7 DAYS) CHOICE 24 Jul 18, 2019 [id number] Oct [facility] OMEPRAZOLE 20MG CAP,EC Discontinued TAKE 2 CAPSULES B Y MOUTH ONCE DAILY FOR THE STOMACH 180 Apr 16, 2020 [id number] Jun 14, 2019 CRISELDA SUN [facility] OMEPRAZOLE 20MG CAP,EC Discontinued TAKE 2 CAPSULES B Y MOUTH ONCE DAILY FOR THE STOMACH 180 May 23, 2019 [id number] Mar 26, 2019 ELLEN POST PANTOPRAZOLE NA 40MG TAB,EC Active: Susp TAKE ONE TAB LET BY MOUTH EVERY MORNING FOR THE STOMACH 90 May 28, 2020 [id number] Nov 14, 2019 [facility] ROPINIROLE HCL 2MG TAB N on-VA TAKE ONE TABLET BY MOUTH ONCE DAILY Non-VA Documented by: CRISELDA SUN nted at: [facility] TERAZOSIN HCL 2MG CAP Active: Susp TAKE 1 CAPSULE BY MOUTH TWICE A DAY FOR PROSTATE / MAY CAUSE LIGHTHEADEDNESS WHEN STANDING 180 Mar 07, 2020 [id number] Oct 24, 2019 ELLEN POST [facility] TERAZOSIN HCL 2MG CAP Discontinued TAKE 1 CAPSULE BY MOUTH TWICE A DAY FOR PROSTATE / MAY CAUSE LIGHTHEADEDNESS WHEN STANDING 180 May 23, 2019 [id number] Feb 11, 2019 ELLEN POST [facility] ZOLPIDEM TARTRATE 10MG TAB Non-VA TAKE [...] problems (conditions). The data comes from all [place] treatment facilities. Problem Status Problem Code Date of Onset Date of Resolution Comm ent(s) Provider Source Anemia (SNOMED CT 361090453) Active 285.9 Jul 24, 2014 Entered By: MINNA PANTOJA Comment: 07/16 Hb corrected to 13.5 MINNA PANTOJA [facility] Aortic Valve Disorder (SCT 5914787) Active 6754648 Jun 06, 2018 Entered By: ELLEN POST Comment: 06/2018 Murmur/ECHO = Mild aortic valve disease, EF 60-65% ELLEN POST [facility] Bilateral posterior vitreous detachment Active [id number] BRAYDEN TUCKER [facility] Chronic obstructive lung disease (SNOMED CT 47723859) Active 1364 5005 Jun 25, 2014 Entered By: MINNA PANTOJA Comment: ex-smoker 0 [facility] Dry eyes Active 304993551 [facility] GERD - Gastro-esophageal reflux disease Active 904277625 SHUKRI HALL Delaney [facility] H/O: surgery Active 150014296 Jul 24, 2014 Entered By: MINNA PANTOJA Comment: Colon resection (perforation) 2007Apr 2014 Entered By: MINNA PANTOJA Comment: 2012 colonoscopy negApr 2014 Entered By: MINNA PANTOJA Comment: 2012 L inguinal hernia repair. MINNA PANTOJA [facility] Hyperlipidemia (SNOMED CT 46253326) Active 97165985 Jul 23, 2014 Entered By: MINNA PANTOJA Comment: 07/15 TC 128 SHUKRI HALL Delaney [facility] PC Hypertension (SNOMED CT 13811269) Active 95263543 ISABEL,SHUKRI Delaney [facility] Osteoarthritis (SNOMED CT 640647977) Active 715.90 MONIQUE ROMERO [facility] Osteoporosis (SNOMED CT 01282851) Active 84469658 Jul 24, 2014 Entered By: MINNA PANTOJA Comment: hx of compression fx L spineApr 2014 Entered By: MINNA PANTOJA Comment: 07/16 Trial of tramadol for chronic back pain SHUKRI HALL [facility] Posttraumatic stress disorder (SNOMED CT 95656286) Active 50463606 UZAIR BUTCHER [facility] Recurrent major depression Active 98486651 CORS ON,VALERIA Arroyo [facility] Rheumatoid arthritis (SNOMED CT 18980754) Active 16464341 Jun 25, 2014 Entered By: MINNA PANTOJA Comment: 05/17 sed rate 47 RF 20 SHUKRI HALL [facility] Relationship problems Inactive 908586034 Jul 24, 2014 CO VALERIA VALDIVIA [facility] Radiology Reports: +/- 30 days of the encounter No Data Provided for This Section Pathology Reports: +/- 30 days of the encounter No Data Provided for This Section Encounter Notes: All associated encounter notes This section contains the clinical notes associated to the Encounter. Date/Time Encounter Note(s) Provider Source Feb 13, 2019 09:02 AM ADMINISTRATIVE NOTE: LOCAL TITLE: SCHEDULING NOTE STANDARD TITLE: ADMINISTRATIVE NOTE DATE OF NOTE: FEB 13, 2019@09:02 ENTRY DATE: FEB 13, 2019@09:03:01 AUTHOR: CRYS VERGARA EXP COSIGNER: URGENCY: STATUS: COMPLETED Per Order dated: May Attempted to contact to reschedule 05/16/2019 appt with [facility] tm 4. No answer, left voice mail to return call to reschedule. Author's phone extension: [phone] /jacqui/ CRYS VERGARA Signed: 02/13/2019 09:05 CRYS VERGARA [facility]
--- OUTSIDE RECORDS SUMMARY | 2019-10-03 14:01 | XMS REPORT | Encounter Summary ---
Author Author Department of [facility] SOLITARIO duenas Organization Department of [facility] Address [address] [place] [address] Phone Unavailable Care Team Providers Care Medical Information Officer Name Role Phone DINO CRISELDA PCP Unavailable [...] Mar 03, 2010 RR PART A 7QX [id number] SOLITARIO CHEW PATIENT MEDICARE (WNR) MEDICARE (M) RR PART B Mar 03, 2010 RR PART B 7QX [id number] SOLITARIO CHEW PATIENT [facility] MEDIGAP PLAN F RAILROAD PLAN F Apr 03 15 [id number] SOLITARIO CHEW PATIENT Selected Encounter This section includes the information on record at [place] for the Encounter. Date/Time Encounter Type Encounter Description Reason Provider Source Dec 31, 2018 09:28 AM Outpatient Encounter PRIMARY CARE/MEDICINE VERONICA MCDONNELL IHE Encounter Template Text not used by [place] Assessments - Encounter Diagnoses No Data Provided for This Section Plan of Treatment: Future Appointments (+ 6 months) and Future Tests (+/- 45 day s) The Plan of Treatment section includes future care activities for the patient fr om all [place] treatment facilities. This section includes future appointments and fu ture orders which are active, pending or scheduled. Future Appointments This section includes appointments that were scheduled t o occur 6 months from the date of the Encounter, up to a maximum of 20 appointme nts. The data comes from all [place] treatment facilities. Appointment Date/Time Appointment Type Appointment Gauri ty Name Feb 21, 2019 10:00 AM AMBULATORY - [place]ONE [place] May 16, 2019 08:00 AM AMBULATORY - NONE [place] May 28, 2019 10:30 AM AMBULATORY - NONE [place] May 28, 2019 12:30 PM AMBULATORY - MEDICINE [facility] Surgical Procedures: All associated to the [...] patient. The data comes from a ll [place] treatment facilities. It does not list Allergies/ADRs [...] VA pharmacy in the last 15 m [facility], and 2) all medications recorded in the [place] medical record as "non-VA medic ations". Pharmacy terms refer to VA pharmacy's work on prescriptions. VA patient s are advised to take their medications as instructed by their health care team. The data comes from all [place] treatment facilities. Glossary of Pharmacy Terms:Active = A prescription that can be filled at the local [place] pharmacy.Active: On Hold = An active prescription that will not be filled until pharmacy resolves the issue.Active: Susp = An active prescription that is not scheduled to be filled yet.Clinic Order = A medication received during a visit to a [place] clinic or emergency department (currently not available).Discontinued [...] may be a prescription from either the [place] or other providers that was filled outside [...] SHORTNESS OF BREATH 120 May 23, 2019 [id number] Mar 07, 2019 ELLEN POST ALENDRONATE 70MG TAB Active: Susp TAKE ONE TABLET BY MOUTH 1 TIME PER WEEK TAKE 30 MINUTES BEFORE FIRST FOOD, BEVERAGE OR MEDICATION OF THE DAY. DRINK WITH FULL GLASS OF WATER. REMAIN IN UPRIGHT POSITION FOR AT LEAST 30 MINUTES FOL LOWING DOSE. 12 Apr 16, 2020 [id number] Nov 01, 2019 CRISELDA SUN [facility] ALENDRONATE 70MG TAB Discontinued TAKE ONE TABLET BY MOUTH 1 TIME PER WEEK TAKE 30 MINUTES BEFORE FIRST FOOD, BEVERAGE OR MEDICATION OF THE DAY. DRINK WITH FULL GLASS OF WATER. REMAIN IN UPRIGHT POSITION FOR AT LEAST 30 MINUTES FOL LOWING DOSE. 12 May 23, 2019 [id number] Mar 14, 2019 ELLEN POST [facility] AMLODIPINE BESYLATE 5MG/BENAZEPRIL HCL 10MG CAP Active: Susp TAKE 1 CAPSULE BY MOUTH ONCE DAILY 90 May 28, 2020 [id number] Oct 19, 2019 CRISELDA SUN [facility] AMLODIPINE BESYLATE 5MG/BENAZEPRIL HCL 10MG CAP Discontinued TAKE 1 CAPSULE BY MOUTH ONCE DAILY 90 August 16, 2019 [id number] May 02, 2019 ELLEN POST [facility] ASCORBIC ACID 500MG TAB Non-VA TAKE ONE TABLET BY MOUTH ONCE DAILY Non-VA Documented by: SHUKRI HALL nted at: [facility] ATORVASTATIN [place] 10MG TAB Active: Susp TAKE ONE TABLET BY MOUTH AT BEDTIME FOR CHOLESTEROL - DO NOT TAKE WITH GRAPEFRUIT JUICE 90 Apr 16, 2020 [id number] Dec 19, 2019 CRISELDA SUN [facility] ATORVASTATIN [place] 10MG TAB Discontinued TAKE ONE TABLET BY MOUTH AT BEDTIME FOR CHOLESTEROL - DO NOT TAKE WITH GRAPEFRUIT JUICE 90 Jul 17, 2019 [id number] Apr 03, 2019 ELLEN POST [facility] ATORVASTATIN [place] 20MG TAB Discontinued TAKE ONE-HALF T ABLET BY MOUTH AT BEDTIME FOR CHOLESTEROL - DO NOT TAKE WITH GRAPEFRUIT JUICE 45 May 23, 2019 [id number] Mar 26, 2019 ELLEN POST [place] BACLOFEN 20MG TAB Active: On Hold TAKE ONE-HALF TABLET BY MOUTH AT BEDTIME -(MAY CAUSE DROWSINESS) 45 Apr 16, 2020 [id number] Jun 14, 2019 CRISELDA SUN [facility] BACLOFEN 20MG TAB Discontinued TAKE ONE-HALF TABLET BY MOUTH AT BEDTIME -(MAY CAUSE DROWSINESS) 45 May 23, 2019 [id number] Mar 26, 2019 ELLEN POST [place] CHOLECALCIFEROL 1000UNT TAB Non-VA TAKE TWO TABLETS BY MOUTH TWICE A DAY Non-VA Documented by: SHUKRI HALL nted at: [facility] DULOXETINE HCL 30MG CAP,EC Non-VA TAKE 1 CAPSULE BY MOUTH ONCE DAILY Non-VA Documented by: CRISELDA SUN nted at: [facility] FERROUS SO4 324MG TAB,EC Non-VA TAKE ONE TABLET BY MOUTH ONCE DAILY Non-VA Documented by: SHUKRI HALL nted at: [facility] FLUTICASONE 200MCG/VILANTEROL 25MCG INHL,ORAL,30D Active INHALE 1 INHALATION (200/25) BY MOUTH ONCE DAILY FOR CHRONIC OBSTRUCTIVE PULMONARY DISEASE OR EMPHYSEMA(CONSULT APPROVED) Jun 12, 2020 [id number] Sep 16, 2019 CRISELDA SUN [facility] FLUTICASONE 200MCG/VILANTEROL 25MCG INHL,ORAL,30D Discontinu ed INHALE 1 INHALATION (200/25) BY MOUTH ONCE DAILY FOR CHRONIC OBSTRUCTIVE PULMONARY DISEASE OR EMPHYSEMA(CONSULT APPROVED) May 23, 2019 [id number] Ja n 2019 ELLEN POST [facility] FOLIC ACID 1MG TAB Active: Susp TAKE ONE TABLET BY MOUTH QD WITH FO OD 90 Mar 07, 2020 [id number] Oct 24, 2019 ELLEN POST [facility] FOLIC ACID 1MG TAB Discontinued TAKE ONE TABLET BY MOUTH QD WITH FO OD 90 May 23, 2019 [id number] Feb 06, 2019 ELLEN POST [facility] HYDROCODONE 10MG/ACETAMINOPHEN 325MG TAB Non-VA TAKE ONE TABLET BY MOUTH EVERY 4 HOURS NEEDED Non-VA Documented by: RICARDO ANTHONY nted at: [facility] LIDOCAINE 5% PATCH Active: Susp APPLY 1 PATCH TO THE SKIN ONCE DAILY FOR PAIN (PATCH SHOULD BE REMOVED AFTER 12 HOURS) 90 Mar 07, 2020 [id number] Nov 25, 2019 ELLEN POST [facility] METHOTREXATE NA 2.5MG TAB Active: Susp TAKE SIX TABLE TS BY MOUTH 1 TIME PER WEEK (ONCE EVERY 7 DAYS) CHOICE 72 Mar 07, 2020 [id number] Nov ELLEN POSTCASIMIRO [facility] METHOTREXATE NA 2.5MG TAB Discontinued TAKE SIX TABLE TS BY MOUTH 1 TIME PER WEEK (ONCE EVERY 7 DAYS) CHOICE 24 Jul 18, 2019 [id number] Oct [facility] OMEPRAZOLE 20MG CAP,EC Discontinued TAKE 2 CAPSULES B Y MOUTH ONCE DAILY FOR THE STOMACH 180 Apr 16, 2020 [id number] Jun 14, 2019 CRISELDA SUN [facility] OMEPRAZOLE 20MG CAP,EC Discontinued TAKE 2 CAPSULES B Y MOUTH ONCE DAILY FOR THE STOMACH 180 May 23, 2019 [id number] Mar 26, 2019 ELLEN POST PANTOPRAZOLE NA 40MG TAB,EC Active: Susp TAKE ONE TAB LET BY MOUTH EVERY MORNING FOR THE STOMACH 90 May 28, 2020 [id number] Nov 14, 2019 [facility]ISELDA SUN [facility] ROPINIROLE HCL 2MG TAB N on-VA TAKE ONE TABLET BY MOUTH ONCE DAILY Non-VA Documented by: CRISELDA SUN nted at: [facility] TERAZOSIN HCL 2MG CAP Active: Susp TAKE 1 CAPSULE BY MOUTH TWICE A DAY FOR PROSTATE / MAY CAUSE LIGHTHEADEDNESS WHEN STANDING 180 Mar 07, 2020 [id number] Oct 24, 2019 ELLEN POST [facility] TERAZOSIN HCL 2MG CAP Discontinued TAKE 1 CAPSULE BY MOUTH TWICE A DAY FOR PROSTATE / MAY CAUSE LIGHTHEADEDNESS WHEN STANDING 180 May 23, 2019 [id number] Feb 11, 2019 ELLEN POST [facility] ZOLPIDEM TARTRATE 10MG TAB Non-VA TAKE [...] problems (conditions). The data comes from all [place] treatment facilities. Problem Status Problem Code Date of Onset Date of Resolution Comm ent(s) Provider Source Anemia (SNOMED CT 993419513) Active 285.9 Jul 24, 2014 Entered By: MINNA PANTOJA Comment: 07/16 Hb corrected to 13.5 MINNA PANTOJA GIANFRANCO PHILLIP [facility] Aortic Valve Disorder (SCT 9333223) Active 8686069 Jun 06, 2018 Entered By: ELLEN POST Comment: 06/2018 Murmur/ECHO = Mild aortic valve disease, EF 60-65% ELLEN POST [facility] Bilateral posterior vitreous detachment Active 862638086422786 BRAYDEN TUCEKR [facility] Chronic obstructive lung disease (SNOMED CT 10174165) Active 1364 5005 Jun 25, 2014 Entered By: MINNA PANTOJA Comment: ex-smoker 0 [facility] Dry eyes Active 976352924 [facility] GERD - Gastro-esophageal reflux disease Active 324758093 SHUKRI HALL Delaney [facility] H/O: surgery Active 012728879 Jul 24, 2014 Entered By: MINNA PANTOJA Comment: Colon resection (perforation) 2007Apr 2014 Entered By: MINNA PANTOJA Comment: 2012 colonoscopy negApr 2014 Entered By: MINNA PANTOJA Comment: 2012 L inguinal hernia repair. MINNA PANTOJA [facility] Hyperlipidemia (SNOMED CT 49316442) Active 44955861 Jul 23, 2014 Entered By: MINNA PANTOJA Comment: 07/15 TC 128 SHUKRI HALL Delaney [facility] PC Hypertension (SNOMED CT 24913111) Active 84406555 ISABEL,SHUKRI Delaney [facility] Osteoarthritis (SNOMED CT 924232379) Active 715.90 MONIQUE ROMERO [facility] Osteoporosis (SNOMED CT 21166443) Active 14494040 Jul 24, 2014 Entered By: MINNA PANTOJA Comment: hx of compression fx L spineApr 2014 Entered By: MINNA PANTOJA Comment: 07/16 Trial of tramadol for chronic back pain SHUKRI HALL [facility]ON[facility] Posttraumatic stress disorder (SNOMED CT 38067181) Active 14386877 UZAIR BUTCHER [facility] Recurrent major depression Active 47785970 CORS ON,VALERIA Arroyo [facility] Rheumatoid arthritis (SNOMED CT 63961899) Active 86672888 Jun 25, 2014 Entered By: MINNA PANTOJA Comment: 05/17 sed rate 47 RF 20 SHUKRI HALL [facility] Relationship problems Inactive 849585235 Jul 24, 2014 [place] VALERIA VALDIVIA [facility] Radiology Reports: +/- 30 days of the encounter No Data Provided for This Section Pathology Reports: +/- 30 days of the encounter No Data Provided for This Section Encounter Notes: All associated encounter notes This section contains the clinical notes associated to the Encounter. Date/Time Encounter Note(s) Provider Source Dec 31, 2018 09:29 AM NURSING NOTE: LOCAL TITLE: NURSING NOTE STANDARD TITLE: NURSING NOTE DATE OF NOTE: DEC 31, 2018@09:29 ENTRY DATE: DEC 31, 2018@09:29:04 AUTHOR: ANASTACIO BUSTILLOS EXP COSIGNER: URGENCY: STATUS: COMPLETED NURSING NOTE Has ADDENDA Pharmacy note received. out of methotrexate 2.5mg tab. Take 6 tabs (15mg) by mouth every 7 days; as prescri bed by Rheumatology: Dr. Joe Pablo. Formulary seen under CHOICE, last visit 2016. Does as new Rheumatology consult need placed for current appointment. /jacqui/ ANASTACIO BUSTILLOS RN PRIMARY CARE, REGISTERED NURSEJACEY Signed: 12/31/2018 09:41 Receipt Acknowledged By: 12/31/2018 10:33 /chaka TAYLOR APN PRIMARY CARE CAIT 12/31/2018 ADDENDUM STATUS: COMPLETED NVCC placed for Rheumatology /chaka POST APN PRIMARY CARE CAIT Signed: 12/31/2018 10:34 ANASTACIO BUSTILLOS [facility]
[2019-10-03 14:02] LABS: ALBUMIN 4.4 GM/DL (3.2-4.5)
--- OUTSIDE RECORDS SUMMARY | 2019-10-03 14:02 | XMS REPORT | Continuity of Care Document ---
Author Organization Unknown Address Unknown Phone Unavailable Allergies Active Description Code Type Severity Reaction Onset Reported/Identified Relationship to Patient Clinical Status Yes alprazolam [id number] Drug Allerg y Unknown N/A 08/21/2013 Yes budesonide [id number] Drug Allerg y Severe NUMB LIPS 09/18/2019 Yes diphenhydramine [id number] D rug Allergy Severe N/A 09/18/2019 Yes formoterol [id number] Drug Allerg y Severe NUMB LIPS 09/18/2019 Yes alprazolam [id number] Drug Allerg y Moderate MENTAL MOOD WAYNE 09/18/2019 Medications There is no data. Problems Date Dx Coded Attending Type Code Diagnosis Diagnosed By 03/02/1102 ROMAIN LOFTON MD Ot Z01.81 8 ENCOUNTER FOR OTHER PREPROCEDURAL EXAMIN 03/02/1102 ROMAIN LOFTON MD Ot Z11.59 ENCOUNTER FOR SCREENING FOR OTHER VIRAL 10/09/2009 Ot 285.9 10/09/2009 Ot 473.9 10/09/2009 Ot 490 10/09/2009 Ot 780.4 10/09/2009 Ot 786.05 10/09/2009 Ot V58.65 10/09/2009 Ot V58.69 03/09/2010 Ot 847.0 03/09/2010 Ot 850.9 03/09/2010 Ot 959.01 03/09/2010 Ot E000.8 03/09/2010 Ot E849.0 03/09/2010 Ot E884.4 03/22/2010 Ot 211.3 03/22/2010 Ot 562.10 03/22/2010 Ot 792.1 03/22/2010 Ot V45.3 03/22/2010 Ot V45.72 04/12/2010 Ot 530.81 04/12/2010 Ot 535.40 04/12/2010 Ot 553.3 09/15/2010 Ot 041.12 09/15/2010 Ot 041.3 09/15/2010 Ot 041.85 09/15/2010 Ot 285.9 09/15/2010 Ot 401.9 09/15/2010 Ot 486 09/15/2010 Ot 530.81 09/15/2010 Ot 553.21 09/15/2010 Ot 553.3 09/15/2010 Ot 568.0 09/15/2010 Ot 600.00 09/15/2010 Ot V64.41 10/12/2010 Ot 719.41 SITA NT PAIN-SHLDER 10/12/2010 Ot V57.1 PHYS ICAL THERAPY NEC 10/12/2010 Ot V58.49 OTH ER SPECIFIED AFTERCARE FOLLOWING SURG 01/09/2012 Ot 530.11 REF LUX ESOPHAGITIS 01/09/2012 Ot 578.1 BLOO D IN STOOL 01/09/2012 Ot 789.02 ABD OMINAL PAIN, LEFT UPPER QUADRANT 08/21/2013 MONET SOTO, LC Ramon Ot 780.1 HALLUCINATIONS 08/21/2013 MONET SOTO, LC Ramon Ot 784.2 SWELLING IN HEAD NECK 02/21/2014 Ot 719.49 02/21/2014 Ot 787.99 02/21/2014 Ot 272.4 02/21/2014 Ot 401.1 02/21/2014 Ot 553.3 02/21/2014 Ot 715.31 02/21/2014 Ot 727.61 02/21/2014 Ot 786.05 02/21/2014 Ot 783.21 02/21/2014 Ot 789.00 02/21/2014 Ot 783.21 02/21/2014 Ot 789.00 02/21/2014 Ot 553.3 02/21/2014 Ot 564.00 02/21/2014 Ot 728.84 02/21/2014 Ot 785.6 02/21/2014 Ot V81.5 02/21/2014 Ot 285.9 02/21/2014 Ot 792.1 02/21/2014 Ot 553.21 02/21/2014 Ot 553.3 02/21/2014 Ot V72.63 02/21/2014 Ot V74.8 02/21/2014 Ot V72.84 02/21/2014 Ot 530.81 02/21/2014 Ot 564.00 02/21/2014 Ot 530.11 02/21/2014 Ot 553.3 02/21/2014 TY SOTO, LINDA R Ot 433. 30 02/21/2014 YT SOTO, LINDA R Ot 473. 9 02/21/2014 TY SOTO, LINDA R Ot 368. 2 02/21/2014 TY SOTO, LINDA R Ot 784. 0 02/21/2014 TY SOTO, LINDA R Ot 794. 09 02/26/2014 TY SOTO, LINDA R Ot 368. 2 02/26/2014 TY SOTO, LINDA R Ot 784. 0 02/26/2014 TY SOTO, LINDA R Ot 794. 09 03/05/2014 JAMARCUS POWELL DO Ot 493. 00 03/05/2014 JAMARCUS POWELL DO Ot 786. 09 03/31/2014 JAMARCUS POWELL DO Ot 493. 00 03/31/2014 JAMARCUS POWELL DO Ot 786. 09 09/24/2014 VICTORIA SOTO, SRINATH Zhou Ot 388.30 TINNITUS NOS 06/23/2015 Ot 272.4 06/23/2015 Ot 401.1 06/23/2015 Ot 553.3 06/23/2015 Ot 715.31 06/23/2015 Ot 727.61 06/23/2015 Ot 786.05 06/23/2015 Ot 783.21 06/23/2015 Ot 789.00 06/23/2015 Ot 783.21 06/23/2015 Ot 789.00 06/23/2015 Ot 553.3 06/23/2015 Ot 564.00 06/23/2015 Ot 728.84 06/23/2015 Ot 785.6 06/23/2015 Ot V81.5 06/23/2015 Ot 285.9 06/23/2015 Ot 792.1 06/23/2015 Ot 553.21 06/23/2015 Ot 553.3 06/23/2015 Ot V72.63 06/23/2015 Ot V74.8 06/23/2015 Ot V72.84 06/23/2015 Ot 530.81 06/23/2015 Ot 564.00 06/23/2015 Ot 530.11 06/23/2015 Ot 553.3 06/23/2015 TY SOTO, LINDA R Ot 433. 30 06/23/2015 TY SOTO, LINDA R Ot 473. 9 06/23/2015 TY SOTO, LINDA R Ot 368. 2 06/23/2015 TY SOTO, LINDA R Ot 784. 0 06/23/2015 TY SOTO, LINDA R Ot 794. 09 06/23/2015 ANDRE GONZALEZ JAMARCUS Pardo Ot 493. 00 06/23/2015 JAMARCUS POWELL DO Ot 786. 09 06/24/2015 TY SOTO, LINDA R Ot I10 06/24/2015 TY SOTO, LINDA R Ot M81. 0 06/24/2015 TY SOTO, LINDA R Ot Z12. 5 07/09/2015 TY SOTO, LINDA R Ot M85. 80 07/09/2015 TY SOTO, LINDA R Ot Z79.899 07/17/2015 TY SOTO, LINDA R Ot I10 ESSENTIAL (PRIMARY) HYPERTENSION 07/17/2015 TY SOTO, LINDA R Ot M81. 0 AGE-RELATED OSTEOPOROSIS W/O CURRENT PAT 07/17/2015 TY SOTO, LINDA R Ot Z12. 5 ENCOUNTER FOR SCREENING FOR MALIGNANT NE 07/29/2015 TY SOTO, LINDA R Ot M85. 80 OTH DISRD OF BONE DENSITY AND STRUCTURE, 07/29/2015 LINDA CRAWFORD MD R Ot Z79.899 OTHER [facility] (CURRENT) DRUG THERAPY 01/10/2016 AUDIE MORA Ot I 10 ESSENTIAL (PRIMARY) HYPERTENSION 01/10/2016 AUDIE MORA Ot J44.1 CHRONIC OBSTRUCTIVE PULMONARY DISEASE W 01/10/2016 AUDIE MORA Ot R06.02 SHORTNESS OF BREATH 01/10/2016 AUDIE MORA Ot Z79.899 OTHER [facility] (CURRENT) DRUG THERAPY 03/31/2016 Ot V72.84 EXA M PRE- OPERATIVE NOS 03/31/2016 Ot 530.81 ESO PHAGEAL REFLUX 03/31/2016 Ot 564.00 UNS PEC CONSTIPATION 03/31/2016 Ot 530.11 REF LUX ESOPHAGITIS 03/31/2016 Ot 553.3 DIAP HRAGMATIC HERNIA 03/31/2016 LINDA CRAWFORD MD Ot 433. 30 MULT BILTRAL ARTERY OCCLUSION WO CEREBRA 03/31/2016 SEGLIE MD, LINDA R Ot 473. 9 CHRONIC SINUSITIS NOS 03/31/2016 LINDA CRAWFORD MD Ot 368. 2 DIPLOPIA 03/31/2016 LINDA CRAWFORD MD Ot 784. 0 HEADACHE 03/31/2016 LINDA CRAWFORD MD Ot 794. 09 ABN JOB COUNSELOR FUNCT STUDY NEC 03/31/2016 ANDRE GONZALEZ JAMARCUS M Ot 493. 00 EXTRINSIC ASTHMA, NOS 03/31/2016 ANDRE GONZALEZ JAMARCUS M Ot 786. 09 RESPIRATORY ABNORM NEC 03/31/2016 LINDA CRAWFORD MD Ot M85. 80 OTH DISRD OF BONE DENSITY AND STRUCTURE, 03/31/2016 LINDA CRAWFORD MD, Ot Z79.899 OTHER [facility] (CURRENT) DRUG THERAPY 03/31/2016 LINDA CRAWFORD MD Ot I10 ESSENTIAL (PRIMARY) HYPERTENSION 03/31/2016 LINDA CRAWFORD MD Ot M81. 0 AGE-RELATED OSTEOPOROSIS W/O CURRENT PAT 03/31/2016 LINDA CRAWFORD MD Ot Z12. 5 ENCOUNTER FOR SCREENING FOR MALIGNANT NE 04/01/2016 ANTONIO BERNSTEIN DO Ot A41.9 SEPSIS, UNSPECIFIED ORGANISM 04/01/2016 ANTONIO BERNSTEIN DO Ot E78.00 PURE HYPERCHOLESTEROLEMIA, UNSPECIFIED 04/01/2016 ANTONIO BERNSTEIN DO Ot F32.9 MAJOR DEPRESSIVE DISORDER, SINGLE EPISOD 04/01/2016 ANTONIO BERNSTEIN DO Ot F41.9 ANXIETY DISORDER, UNSPECIFIED 04/01/2016 ANTONIO BERNSTEIN DO Ot F43.10 POST-TRAUMATIC STRESS DISORDER, UNSPECIF 04/01/2016 ANTONIO BERNSTEIN DO Ot I10 ESSENTIAL (PRIMARY) HYPERTENSION 04/01/2016 ANTONIO BERNSTEIN DO Ot J18.9 PNEUMONIA, UNSPECIFIED ORGANISM 04/01/2016 ANTONIO BERNSTEIN DO Ot J44.0 CHRONIC OBSTRUCTIVE PULMON DISEASE W ACU 04/01/2016 ANTONIO BERNSTEIN DO Ot J44.1 CHRONIC OBSTRUCTIVE PULMONARY DISEASE W 04/01/2016 ANTONIO BERNSTEIN DO Ot K21.9 GASTRO-ESOPHAGEAL REFLUX DISEASE WITHOUT 04/01/2016 ANTONIO BERNSTEIN DO Ot R09.02 HYPOXEMIA 04/01/2016 ANTONIO BERNSTEIN DO Ot Z87.89 1 PERSONAL HISTORY OF NICOTINE DEPENDENCE 04/06/2016 Ot V72.84 EXA M PRE- OPERATIVE NOS 04/06/2016 Ot 530.81 ESO PHAGEAL REFLUX 04/06/2016 Ot 564.00 UNS PEC CONSTIPATION 04/06/2016 Ot 530.11 REF LUX ESOPHAGITIS 04/06/2016 Ot 553.3 DIAP HRAGMATIC HERNIA 04/06/2016 LINDA CRAWFORD MD Ot 433. 30 MULT BILTRAL ARTERY OCCLUSION WO CEREBRA 04/06/2016 LINDA CRAWFORD MD Ot 473. 9 CHRONIC SINUSITIS NOS 04/06/2016 LINDA CRAWFORD MD Ot 368. 2 DIPLOPIA 04/06/2016 LINAD CRAWFORD MD Ot 784. 0 HEADACHE 04/06/2016 LINDA CRAWFORD MD Ot 794. 09 ABN JOB COUNSELOR FUNCT STUDY NEC 04/06/2016 JAMARCUS POWELL DO Ot 493. 00 EXTRINSIC ASTHMA, NOS 04/06/2016 JAMARCUS POWELL DO Ot 786. 09 RESPIRATORY ABNORM NEC 04/06/2016 LINDA CRAWFORD MD Ot M85. 80 OTH DISRD OF BONE DENSITY AND STRUCTURE, 04/06/2016 LINDA CRAWFORD MD, Ot Z79.899 OTHER [facility] (CURRENT) DRUG THERAPY 04/06/2016 LINDA CRAWFORD MD Ot I10 ESSENTIAL (PRIMARY) HYPERTENSION 04/06/2016 LINDA CRAWFORD MD Ot M81. 0 AGE-RELATED OSTEOPOROSIS W/O CURRENT PAT 04/06/2016 LINDA CRAWFORD MD Ot Z12. 5 ENCOUNTER FOR SCREENING FOR MALIGNANT NE 05/04/2016 DARIO ENGLAND FISH HOUSEKEEPER Ot R 05 COUGH 05/04/2016 DARIO ENGLAND APRN Ot R06.02 SHORTNESS OF BREATH 05/11/2016 DRAIO ENGLAND FISH HOUSEKEEPER Ot R 05 COUGH 05/11/2016 DARIO ENGLAND APRN Ot R06.02 SHORTNESS OF BREATH 12/28/2016 RAZIA PINTO MD Ot E78. 00 PURE HYPERCHOLESTEROLEMIA, UNSPECIFIED 12/28/2016 RAZIA PINTO MD Ot F32. 9 MAJOR DEPRESSIVE DISORDER, SINGLE EPISOD 12/28/2016 RAZIA PINTO MD Ot F41. 9 ANXIETY DISORDER, UNSPECIFIED 12/28/2016 RAZIA PINTO MD Ot F43. 10 POST-TRAUMATIC STRESS DISORDER, UNSPECIF 12/28/2016 RAZIA PINTO MD Ot I10 ESSENTIAL (PRIMARY) HYPERTENSION 12/28/2016 RAZIA PINTO MD, Ot J30. 2 OTHER SEASONAL ALLERGIC RHINITIS 12/28/2016 RAZIA PINTO MD, Ot J44. 9 CHRONIC OBSTRUCTIVE PULMONARY DISEASE, U 12/28/2016 RAZIA PINTO MD, Ot K21. 9 GASTRO-ESOPHAGEAL REFLUX DISEASE WITHOUT 12/28/2016 RAZIA PINTO MD, Ot K52. 9 NONINFECTIVE GASTROENTERITIS AND COLITIS 12/28/2016 RAZIA PINTO MD, Ot K57. 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 9 RHEUMATOID ARTHRITIS, UNSPECIFIED 12/28/2016 RAZIA PINTO MD, Ot M19. 91 PRIMARY OSTEOARTHRITIS, UNSPECIFIED SITE 12/28/2016 RAZIA PINTO MD, Ot N40. 0 BENIGN PROSTATIC HYPERPLASIA WITHOUT LOW 12/28/2016 RAZIA PINTO MD, Ot Z87.891 PERSONAL HISTORY OF NICOTINE DEPENDENCE 12/28/2016 RAZIA PINTO MD, Ot Z90. 49 ACQUIRED ABSENCE OF OTHER SPECIFIED PART 02/14/2017 ROMAIN LOFTON MD Ot R10.32 LEFT LOWER QUADRANT PAIN 02/14/2017 ROMAIN LOFTON MD Ot Z01.81 8 ENCOUNTER FOR OTHER PREPROCEDURAL EXAMIN 02/15/2017 ROMAIN LOFTON MD Ot E78.00 PURE HYPERCHOLESTEROLEMIA, UNSPECIFIED 02/15/2017 ROMAIN LOFTON MD Ot F32.9 MAJOR DEPRESSIVE DISORDER, SINGLE EPISOD 02/15/2017 ROMAIN LOFTON MD Ot F41.9 ANXIETY DISORDER, UNSPECIFIED 02/15/2017 ROMAIN LOFTON MD Ot I10 ESSENTIAL (PRIMARY) HYPERTENSION 02/15/2017 ROMAIN LOFTON MD Ot K21.9 GASTRO-ESOPHAGEAL REFLUX DISEASE WITHOUT 02/15/2017 ROMAIN LOFTON MD Ot K57.30 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 AB 02/15/2017 ROMAIN LOFTON MD Ot K64.1 SECOND DEGREE HEMORRHOIDS 02/15/2017 ROMAIN LOFTON MD Ot M06.9 RHEUMATOID ARTHRITIS, UNSPECIFIED 02/16/2017 ROMAIN LOFTON MD, Ot E78.00 PURE HYPERCHOLESTEROLEMIA, UNSPECIFIED 02/16/2017 ROMAIN LOFTON MD, Ot F32.9 MAJOR DEPRESSIVE DISORDER, SINGLE EPISOD 02/16/2017 ROMAIN LOFTON MD, Ot F41.9 ANXIETY DISORDER, UNSPECIFIED 02/16/2017 ROMAIN LOFTON MD Ot I10 ESSENTIAL (PRIMARY) HYPERTENSION 02/16/2017 ROMAIN LOFTON MD, Ot K21.9 GASTRO-ESOPHAGEAL REFLUX DISEASE WITHOUT 02/16/2017 ROMAIN LOFTON MD, Ot K57.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 8 OTHER CONDITIONS RELATED TO POLYARTERITI 06/07/2017 LINDA CRAWFORD MD R Ot M79.604 PAIN IN RIGHT LEG 06/07/2017 TY SOTO LINDA R Ot M79.605 PAIN IN LEFT LEG 06/07/2017 LINDA CRAWFORD MD R Ot R06. 00 DYSPNEA, UNSPECIFIED 06/07/2017 TY SOTO ILNDA R Ot R06. 89 OTHER ABNORMALITIES OF BREATHING 07/07/2017 TY SOTO LINDA R Ot M30. 8 OTHER CONDITIONS RELATED TO POLYARTERITI 07/07/2017 TY SOTO LINDA R Ot M79.604 PAIN IN RIGHT LEG 07/07/2017 LINDA CRAWFORD MD R Ot M79.605 PAIN IN LEFT LEG 07/07/2017 LINDA CRAWFORD MD R Ot R06. 00 DYSPNEA, UNSPECIFIED 07/07/2017 TY SOTO LINDA R Ot R06. 89 OTHER ABNORMALITIES OF BREATHING 10/05/2017 TY SOTO LINDA R Ot M30. 8 OTHER CONDITIONS RELATED TO POLYARTERITI 10/05/2017 TY SOTO, LINDA R Ot M79.604 PAIN IN RIGHT LEG 10/05/2017 TY SOTO, LINDA Doe Ot M79.605 PAIN IN LEFT LEG 10/05/2017 TY SOTO, LINDA Doe Ot R06. 00 DYSPNEA, UNSPECIFIED 10/05/2017 TY SOTO, LINDA R Ot R06. 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 DISORDER, UNSPECIF 07/01/2018 ERIK CB GONZALEZ Ot G25.81 RESTLESS LEGS SYNDROME 07/01/2018 ERIK CB GONZALEZ Ot I10 ESSENTIAL (PRIMARY) HYPERTENSION 07/01/2018 ERIK CB GONZALEZ Ot J44.9 CHRONIC OBSTRUCTIVE PULMONARY DISEASE, U 07/01/2018 ERIK CB GONZALEZ Ot K21.9 GASTRO-ESOPHAGEAL REFLUX DISEASE WITHOUT 07/01/2018 ERIK CB GONZALEZ Ot M06.9 RHEUMATOID ARTHRITIS, UNSPECIFIED 07/01/2018 ERIK CB GONZALEZ Ot M81.0 AGE- RELATED OSTEOPOROSIS W/O CURRENT PAT 07/01/2018 CB VALENCIA DO Ot R06.02 SHORTNESS OF BREATH 07/01/2018 CB VALENCIA DO Ot S20.219 A CONTUSION OF UNSPECIFIED FRONT WALL OF T 07/01/2018 CB VALENCIA DO Ot S70.01X A CONTUSION OF RIGHT HIP, INITIAL ENCOUNTE 07/01/2018 CB VALENCIA DO Ot S80.11X A CONTUSION OF RIGHT LOWER LEG, INITIAL EN 07/01/2018 CB VALENCIA DO Ot W11.XXX A FALL ON AND FROM LADDER, INITIAL ENCOUNT 07/01/2018 CB VALENCIA DO Ot Y92.094 GARAGE OF NON-INSTITUTIONAL RESIDENCE 07/01/2018 CB VALENCIA DO Ot Z79.52 [facility]-WAY (CURRENT) USE OF SYSTEMIC STER 07/01/2018 CB VALENCIA DO Ot Z87.19 PERSONAL HISTORY OF OTHER DISEASES OF TH 07/01/2018 CB VALENCIA DO Ot Z87.448 PERSONAL HISTORY OF OTHER DISEASES OF UR 07/01/2018 CB VALENCIA DO Ot Z87.891 PERSONAL HISTORY OF NICOTINE DEPENDENCE 07/01/2018 CB VALENCIA DO Ot Z88.8 ALLERGY STATUS TO OTH DRUG/MEDS/BIOL SUB 07/01/2018 CB VALENCIA DO Ot Z90.49 ACQUIRED ABSENCE OF OTHER SPECIFIED PART 07/01/2018 CB VALENCIA DO Ot Z98.890 OTHER SPECIFIED POSTPROCEDURAL STATES 07/01/2018 TY SOTO, LINDA Doe Ot 433. 30 MULT BILTRAL ARTERY OCCLUSION WO CEREBRA 07/01/2018 LINDA CRAWFORD MD Ot 473. 9 CHRONIC SINUSITIS NOS 07/01/2018 LINAD CRAWFORD MD Ot 368. 2 DIPLOPIA 07/01/2018 LINDA CRAWFORD MD Ot 784. 0 HEADACHE 07/01/2018 LINDA CRAWFORD MD Ot 794. 09 ABN JOB COUNSELOR FUNCT STUDY NEC 07/01/2018 JAMARCUS POWELL DO Ot 493. 00 EXTRINSIC ASTHMA, NOS 07/01/2018 JAMARCUS POWELL DO Ot 786. 09 RESPIRATORY ABNORM NEC 07/01/2018 LINDA CRAWFORD MD Ot M85. 80 OTH DISRD OF BONE DENSITY AND STRUCTURE, 07/01/2018 LINDA CRAWFORD MD, Ot Z79.899 OTHER [facility] (CURRENT) DRUG THERAPY 07/01/2018 LINDA CRAWFORD MD Ot I10 ESSENTIAL (PRIMARY) HYPERTENSION 07/01/2018 LINDA CRAWFORD MD Ot M81. 0 AGE-RELATED OSTEOPOROSIS W/O CURRENT PAT 07/01/2018 LINDA CRAWFORD MD Ot Z12. 5 ENCOUNTER FOR SCREENING FOR MALIGNANT NE 07/01/2018 DARIO ENGLAND APRN Ot R 05 COUGH 07/01/2018 DARIO ENGLAND APRN Ot R06.02 SHORTNESS OF BREATH 07/01/2018 LINDA CRAWFORD MD Ot M30. 8 OTHER CONDITIONS RELATED TO POLYARTERITI 07/01/2018 SEGLIE MD, LINDA R Ot M79.604 PAIN IN RIGHT LEG 07/01/2018 TY SOTO, LINDA R Ot M79.605 PAIN IN LEFT LEG 07/01/2018 TY SOTO, LINDA R Ot R06. 00 DYSPNEA, UNSPECIFIED 07/01/2018 TY SOTO, LINDA R Ot R06. 89 OTHER ABNORMALITIES OF BREATHING 12/07/2018 KAVON SOTO, MICA Burris Ot E78. 00 PURE HYPERCHOLESTEROLEMIA, UNSPECIFIED 12/07/2018 KAVON SOTO, MICA Burris Ot F32. 9 MAJOR DEPRESSIVE DISORDER, SINGLE EPISOD 12/07/2018 KAVON SOTO, MICA Burris Ot F41. 9 ANXIETY DISORDER, UNSPECIFIED 12/07/2018 KAVON SOTO, MICA Burris Ot F43. 10 POST-TRAUMATIC STRESS DISORDER, UNSPECIF 12/07/2018 KAVON SOTO, MICA Burris Ot I10 ESSENTIAL (PRIMARY) HYPERTENSION 12/07/2018 KAVON SOTO, MICA Burris Ot J45.909 UNSPECIFIED ASTHMA, UNCOMPLICATED 12/07/2018 KAVON SOTO, MICA Burris Ot K21. 9 GASTRO-ESOPHAGEAL REFLUX DISEASE WITHOUT 12/07/2018 KAVON SOTO, MICA Burris Ot M06. 9 RHEUMATOID ARTHRITIS, UNSPECIFIED 12/07/2018 KAVON SOTO, MICA Burris Ot M81. 0 AGE-RELATED OSTEOPOROSIS W/O CURRENT PAT 12/07/2018 KAVON SOTO, MICA Burris Ot N40. 0 BENIGN PROSTATIC HYPERPLASIA WITHOUT LOW 12/07/2018 KAVON SOTO, MICA Burris Ot R25. 2 CRAMP AND SPASM 12/07/2018 KAVON SOTO, MICA Burris Ot Z87. 19 PERSONAL HISTORY OF OTHER DISEASES OF TH 12/07/2018 KAVON SOTO, MICA Burris Ot Z87.891 PERSONAL HISTORY OF NICOTINE DEPENDENCE 12/07/2018 KAVON SOTO, MICA Burris Ot Z88. 8 ALLERGY STATUS TO OTH DRUG/MEDS/BIOL SUB 12/11/2018 KAVON SOTO, MICA Burris Ot E78. 00 PURE HYPERCHOLESTEROLEMIA, UNSPECIFIED 12/11/2018 KAVON SOTO, MICA Burris Ot F32. 9 MAJOR DEPRESSIVE DISORDER, SINGLE EPISOD 12/11/2018 KAVON SOTO, MICA Burris Ot F41. 9 ANXIETY DISORDER, UNSPECIFIED 12/11/2018 KAVON SOTO, MICA Burris Ot F43. 10 POST-TRAUMATIC STRESS DISORDER, UNSPECIF 12/11/2018 KAVON SOTO, MICA Burris Ot I10 ESSENTIAL (PRIMARY) HYPERTENSION 12/11/2018 KAVON SOTO, MICA Burris Ot J45.909 UNSPECIFIED ASTHMA, UNCOMPLICATED 12/11/2018 KAVON SOTO, MICA Burris Ot K21. 9 GASTRO-ESOPHAGEAL REFLUX DISEASE WITHOUT 12/11/2018 KAVON SOTO, MICA Burris Ot M06. 9 RHEUMATOID ARTHRITIS, UNSPECIFIED 12/11/2018 KAVON SOTO, MICA Burris Ot M81. 0 AGE-RELATED OSTEOPOROSIS W/O CURRENT PAT 12/11/2018 KAVON SOTO, MICA Burris Ot N40. 0 BENIGN PROSTATIC HYPERPLASIA WITHOUT LOW 12/11/2018 KAVON SOTO, MICA Burris Ot R25. 2 CRAMP AND SPASM 12/11/2018 KAVON SOTO, MICA Burris Ot Z87. 19 PERSONAL HISTORY OF OTHER DISEASES OF 12/11/2018 KAVON SOTO, MICA Burris Ot Z87.891 PERSONAL HISTORY OF NICOTINE DEPENDENCE 12/11/2018 KAVON SOTO, MICA Burris Ot Z88. 8 ALLERGY STATUS TO OT DRUG/MEDS/BIOL SUB 12/13/2018 KAVON SOTO, MICA Burris Ot E78. 00 PURE HYPERCHOLESTEROLEMIA, UNSPECIFIED 12/13/2018 KAVON SOTO, MICA Burris Ot F32. 9 MAJOR DEPRESSIVE DISORDER, SINGLE EPISOD 12/13/2018 KAVON SOTO, MICA Burris Ot F41. 9 ANXIETY DISORDER, UNSPECIFIED 12/13/2018 KAVON SOTO, MICA Burris Ot F43. 10 POST-TRAUMATIC STRESS DISORDER, UNSPECIF 12/13/2018 KAVON SOTO, MICA Burris Ot I10 ESSENTIAL (PRIMARY) HYPERTENSION 12/13/2018 KAVON SOTO, MICA Burris Ot J45.909 UNSPECIFIED ASTHMA, UNCOMPLICATED 12/13/2018 KAVON SOTO, MICA Burris Ot K21. 9 GASTRO-ESOPHAGEAL REFLUX DISEASE WITHOUT 12/13/2018 KAVON SOTO, MICA Burris Ot M06. 9 RHEUMATOID ARTHRITIS, UNSPECIFIED 12/13/2018 KAVON SOTO, MICA Burris Ot M81. 0 AGE-RELATED OSTEOPOROSIS W/O CURRENT PAT 12/13/2018 KAVON SOTO, MICA Burris Ot N40. 0 BENIGN PROSTATIC HYPERPLASIA WITHOUT LOW 12/13/2018 KAVON SOTO, MICA Burris Ot R25. 2 CRAMP AND SPASM 12/13/2018 KAVON SOTO, IMCA Burris Ot Z87. 19 PERSONAL HISTORY OF OTHER DISEASES OF 12/13/2018 KAVON SOTO, MICA Burris Ot Z87.891 PERSONAL HISTORY OF NICOTINE DEPENDENCE 12/13/2018 KAVON SOTO, MICA Burris Ot Z88. 8 ALLERGY STATUS TO OTH DRUG/MEDS/BIOL SUB 02/04/2019 TY SOTO, LINDA R Ot K44. 9 DIAPHRAGMATIC HERNIA WITHOUT OBSTRUCTION 02/04/2019 TY SOTO, LINDA R Ot R04. 2 HEMOPTYSIS 02/04/2019 TY SOTO, LINDA R Ot R06. 02 SHORTNESS OF BREATH 02/21/2019 TY SOTO, LINDA R Ot K44. 9 DIAPHRAGMATIC HERNIA WITHOUT OBSTRUCTION 02/21/2019 TY SOTO, LINDA R Ot R04. 2 HEMOPTYSIS 02/21/2019 TY SOTO, LINDA R Ot R06. 02 SHORTNESS OF BREATH 02/27/2019 TY SOTO, LINDA R Ot K44. 9 DIAPHRAGMATIC HERNIA WITHOUT OBSTRUCTION 02/27/2019 TY SOTO, LINDA R Ot R04. 2 HEMOPTYSIS 02/27/2019 TY SOTO, LINDA R Ot R06. 02 SHORTNESS OF BREATH 04/25/2019 ERIK DO, CB K Ot E78.00 PURE HYPERCHOLESTEROLEMIA, UNSPECIFIED 04/25/2019 ERIK DO, BC K Ot F32.9 MAJOR DEPRESSIVE DISORDER, SINGLE EPISOD 04/25/2019 ERIK DO, CB K Ot F41.9 ANXIETY DISORDER, UNSPECIFIED 04/25/2019 ERIK DO, CB K Ot F43.10 POST-TRAUMATIC STRESS DISORDER, UNSPECIF 04/25/2019 ERIK DO, CB K Ot I10 ESSENTIAL (PRIMARY) HYPERTENSION 04/25/2019 ERIK DO, CB K Ot J44.1 CHRONIC OBSTRUCTIVE PULMONARY DISEASE W 04/25/2019 ERIK DO, CB K Ot J45.909 UNSPECIFIED ASTHMA, UNCOMPLICATED 04/25/2019 ERIK DO, CB K Ot K21.9 GASTRO-ESOPHAGEAL REFLUX DISEASE WITHOUT 04/25/2019 ERIK DO, CB K Ot M06.9 RHEUMATOID ARTHRITIS, UNSPECIFIED 04/25/2019 ERIK DO, CB K Ot R06.02 SHORTNESS OF BREATH 04/25/2019 ERIK DO, CB K Ot Z87.891 PERSONAL HISTORY OF NICOTINE DEPENDENCE 04/25/2019 ERIK DO, CB K Ot Z88.8 ALLERGY STATUS TO OTH DRUG/MEDS/BIOL SUB 04/25/2019 ERIK DO, CB K Ot Z90.89 ACQUIRED ABSENCE OF OTHER ORGANS 04/29/2019 ERIK DO, CB K Ot E78.00 PURE HYPERCHOLESTEROLEMIA, UNSPECIFIED 04/29/2019 ERIK DO, CB K Ot F32.9 MAJOR DEPRESSIVE DISORDER, SINGLE EPISOD 04/29/2019 ERIK DO, CB K Ot F41.9 ANXIETY DISORDER, UNSPECIFIED 04/29/2019 ERIK DO, CB K Ot F43.10 POST-TRAUMATIC STRESS DISORDER, UNSPECIF 04/29/2019 ERIK DO, CB K Ot I10 ESSENTIAL (PRIMARY) HYPERTENSION 04/29/2019 ERIK DO, CB K Ot J44.1 CHRONIC OBSTRUCTIVE PULMONARY DISEASE W 04/29/2019 ERIK DO, CB K Ot J45.909 UNSPECIFIED ASTHMA, UNCOMPLICATED 04/29/2019 ERIK DO, CB K Ot K21.9 GASTRO-ESOPHAGEAL REFLUX DISEASE WITHOUT 04/29/2019 ERIK DO, CB K Ot M06.9 RHEUMATOID ARTHRITIS, UNSPECIFIED 04/29/2019 ERIK DO, CB K Ot R06.02 SHORTNESS OF BREATH 04/29/2019 ERIK DO, CB K Ot Z87.891 PERSONAL HISTORY OF NICOTINE DEPENDENCE 04/29/2019 ERIK DO, CB K Ot Z88.8 ALLERGY STATUS TO OTH DRUG/MEDS/BIOL SUB 04/29/2019 ERIK DO, CB K Ot Z90.89 ACQUIRED ABSENCE OF OTHER ORGANS 05/02/2019 ERIK DO, CB K Ot E78.00 PURE HYPERCHOLESTEROLEMIA, UNSPECIFIED 05/02/2019 ERIK DO, CB K Ot F32.9 MAJOR DEPRESSIVE DISORDER, SINGLE EPISOD 05/02/2019 ERIK DO, CB K Ot F41.9 ANXIETY DISORDER, UNSPECIFIED 05/02/2019 ERIK DO, CB K Ot F43.10 POST-TRAUMATIC STRESS DISORDER, UNSPECIF 05/02/2019 ERIK DO, CB K Ot I10 ESSENTIAL (PRIMARY) HYPERTENSION 05/02/2019 ERIK DO, CB K Ot J44.1 CHRONIC OBSTRUCTIVE PULMONARY DISEASE W 05/02/2019 ERIK DO, CB K Ot J45.909 UNSPECIFIED ASTHMA, UNCOMPLICATED 05/02/2019 ERIK DO, CB K Ot K21.9 GASTRO-ESOPHAGEAL REFLUX DISEASE WITHOUT 05/02/2019 ERIK DO, CB K Ot M06.9 RHEUMATOID ARTHRITIS, UNSPECIFIED 05/02/2019 ERIK DO, CB K Ot R06.02 SHORTNESS OF BREATH 05/02/2019 ERIK DO, CB K Ot Z87.891 PERSONAL HISTORY OF NICOTINE DEPENDENCE 05/02/2019 ERIK DO, CB K Ot Z88.8 ALLERGY STATUS TO OTH DRUG/MEDS/BIOL SUB 05/02/2019 ERIK DO, CB K Ot Z90.89 ACQUIRED ABSENCE OF OTHER ORGANS 05/02/2019 ERIK DO, CB K Ot E78.00 PURE HYPERCHOLESTEROLEMIA, UNSPECIFIED 05/02/2019 ERIK DO, CB K Ot F32.9 MAJOR DEPRESSIVE DISORDER, SINGLE EPISOD 05/02/2019 ERIK DO, CB K Ot F41.9 ANXIETY DISORDER, UNSPECIFIED 05/02/2019 ERIK DO, CB K Ot F43.10 POST-TRAUMATIC STRESS DISORDER, UNSPECIF 05/02/2019 ERIK DO, BC K Ot I10 ESSENTIAL (PRIMARY) HYPERTENSION 05/02/2019 ERIK DO, CB K Ot J44.1 CHRONIC OBSTRUCTIVE PULMONARY DISEASE W 05/02/2019 ERIK DO, CB K Ot J45.909 UNSPECIFIED ASTHMA, UNCOMPLICATED 05/02/2019 ERIK DO, CB K Ot K21.9 GASTRO-ESOPHAGEAL REFLUX DISEASE WITHOUT 05/02/2019 ERIK DO, CB K Ot M06.9 RHEUMATOID ARTHRITIS, UNSPECIFIED 05/02/2019 ERIK DO, CB K Ot R06.02 SHORTNESS OF BREATH 05/02/2019 ERIK DO, CB K Ot Z87.891 PERSONAL HISTORY OF NICOTINE DEPENDENCE 05/02/2019 ERIK DO, CB K Ot Z88.8 ALLERGY STATUS TO OTH DRUG/MEDS/BIOL SUB 05/02/2019 ERIK DO, CB K Ot Z90.89 ACQUIRED ABSENCE OF OTHER ORGANS 05/31/2019 W F32.1 Yaz r depressive disorder, single episode, moderate Raisa Garcia 05/31/2019 W F41.1 Gene ralized anxiety disorder Raisa Garcia 05/31/2019 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 Raisa Garcia 06/11/2019 W F32.1 Yaz r depressive disorder, single episode, moderate Jose, Raisa 06/11/2019 W F41.1 Gene ralized anxiety disorder Jose, 06/11/2019 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 Jose, 06/19/2019 W F32.1 Yaz r depressive disorder, single episode, moderate Jose, Raisa 06/19/2019 W F41.1 Gene ralized anxiety disorder Jose, 06/19/2019 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00 PURE HYPERCHOLESTEROLEMIA, UNSPECIFIED 09/20/2019 ROMAIN LOFTON MD Ot F32.9 MAJOR DEPRESSIVE DISORDER, SINGLE EPISOD 09/20/2019 ROMAIN LOFTON MD Ot F41.9 ANXIETY DISORDER, UNSPECIFIED 09/20/2019 ROMAIN LOFTON MD Ot I10 ESSENTIAL (PRIMARY) HYPERTENSION 09/20/2019 ROMAIN LOFTON MD Ot K20.8 OTHER ESOPHAGITIS 09/20/2019 ROMAIN LOFTON MD Ot K22.2 ESOPHAGEAL OBSTRUCTION 09/20/2019 ROMAIN LOFTON MD Ot K31.84 GASTROPARESIS 09/20/2019 ROMAIN LOFTON MD Ot K44.9 DIAPHRAGMATIC HERNIA WITHOUT OBSTRUCTION 09/20/2019 ROMAIN LOFTON MD, Ot K57.30 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 AB 09/20/2019 ROMAIN LOFTON MD, Ot K64.1 SECOND DEGREE HEMORRHOIDS 09/20/2019 ROMAIN LOFTON MD, Ot M06.9 RHEUMATOID ARTHRITIS, UNSPECIFIED 09/20/2019 ROMAIN LOFTON MD, Ot R19.4 CHANGE IN BOWEL HABIT 09/20/2019 ROMAIN LOFTON MD, Ot Z79.89 9 OTHER HALF-WAY (CURRENT) DRUG THERAPY 09/20/2019 ROMAIN LOFTON MD, Ot Z86.01 0 PERSONAL HISTORY OF COLONIC POLYPS 09/20/2019 ROMAIN LOFTON MD, Ot Z87.19 PERSONAL HISTORY OF OTHER DISEASES OF TH 09/20/2019 ROMAIN LOFTON MD, Ot Z87.89 1 PERSONAL HISTORY OF NICOTINE DEPENDENCE 09/20/2019 ROMAIN LOFTON MD, Ot Z88.8 ALLERGY STATUS TO OTH DRUG/MEDS/BIOL SUB 09/24/2019 W F32.1 Yaz r depressive disorder, single episode, moderate Raisa Garcia 09/24/2019 W F41.1 Gene ralized anxiety disorder Raisa Garcia 09/24/2019 W I10 Essent ial (primary) hypertension Raisa Garcia 09/24/2019 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 Raisa Garcia 09/25/2019 ROMAIN LOFTON MD Ot E78.00 PURE HYPERCHOLESTEROLEMIA, UNSPECIFIED 09/25/2019 ROMAIN LOFTON MD Ot F32.9 MAJOR DEPRESSIVE DISORDER, SINGLE EPISOD 09/25/2019 ROMAIN LOFTON MD Ot F41.9 ANXIETY DISORDER, UNSPECIFIED 09/25/2019 ROMAIN LOFTON MD Ot I10 ESSENTIAL (PRIMARY) HYPERTENSION 09/25/2019 ROMAIN LOFTON MD Ot K20.8 OTHER ESOPHAGITIS 09/25/2019 ROMAIN LOFTON MD Ot K22.2 ESOPHAGEAL OBSTRUCTION 09/25/2019 ROMAIN LOFTON MD Ot K31.84 GASTROPARESIS 09/25/2019 ROMAIN LOFTON MD Ot K44.9 DIAPHRAGMATIC HERNIA WITHOUT OBSTRUCTION 09/25/2019 ROMAIN LOFTON MD, Ot K57.30 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 AB 09/25/2019 ROMAIN LOFTON MD, Ot K64.1 SECOND DEGREE HEMORRHOIDS 09/25/2019 ROMAIN LOFTON MD, Ot M06.9 RHEUMATOID ARTHRITIS, UNSPECIFIED 09/25/2019 ROMAIN LOFTON MD, Ot R19.4 CHANGE IN BOWEL HABIT 09/25/2019 ROMAIN LOFTON MD, Ot Z79.89 9 OTHER [facility] (CURRENT) DRUG THERAPY 09/25/2019 ROMAIN LOFTON MD, Ot Z86.01 0 PERSONAL HISTORY OF COLONIC POLYPS 09/25/2019 ROMAIN LOFTON MD, Ot Z87.19 PERSONAL HISTORY OF OTHER DISEASES OF TH 09/25/2019 ROMAIN LOFTON MD, Ot Z87.89 1 PERSONAL HISTORY OF NICOTINE DEPENDENCE 09/25/2019 ROMAIN LOFTON MD, Ot Z88.8 ALLERGY STATUS TO OTH DRUG/MEDS/BIOL SUB 09/25/2019 ROMAIN LOFTON MD, Ot E78.00 PURE HYPERCHOLESTEROLEMIA, UNSPECIFIED 09/25/2019 ROMAIN LOFTON MD, Ot F32.9 MAJOR DEPRESSIVE DISORDER, SINGLE EPISOD 09/25/2019 ROMAIN LOFTON MD, Ot F41.9 ANXIETY DISORDER, UNSPECIFIED 09/25/2019 ROMAIN LOFTON MD, Ot I10 ESSENTIAL (PRIMARY) HYPERTENSION 09/25/2019 ROMAIN LOFTON MD, Ot K20.8 OTHER ESOPHAGITIS 09/25/2019 ROMAIN LOFTON MD, Ot K22.2 ESOPHAGEAL OBSTRUCTION 09/25/2019 ROMAIN LOFTON MD, Ot K31.84 GASTROPARESIS 09/25/2019 ROMAIN LOFTON MD, Ot K44.9 DIAPHRAGMATIC HERNIA WITHOUT OBSTRUCTION 09/25/2019 ROMAIN LOFTON MD, Ot K57.30 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 AB 09/25/2019 ROMAIN LOFTON MD, Ot K64.1 SECOND DEGREE HEMORRHOIDS 09/25/2019 ROMAIN LOFTON MD, Ot M06.9 RHEUMATOID ARTHRITIS, UNSPECIFIED 09/25/2019 ROMAIN LOFTON MD, Ot R19.4 CHANGE IN BOWEL HABIT 09/25/2019 ROMAIN LOFTON MD, Ot Z79.89 9 OTHER [facility] (CURRENT) DRUG THERAPY 09/25/2019 ROMAIN LOFTON MD, Ot Z86.01 0 PERSONAL HISTORY OF COLONIC POLYPS 09/25/2019 ROMAIN LOFTON MD, Ot Z87.19 PERSONAL HISTORY OF OTHER DISEASES OF TH 09/25/2019 ROMAIN LOFTON MD, Ot Z87.89 1 PERSONAL HISTORY OF NICOTINE DEPENDENCE 09/25/2019 ROMAIN LOFTON MD, Ot Z88.8 ALLERGY STATUS TO OTH DRUG/MEDS/BIOL SUB 09/27/2019 W F32.1 Yaz r depressive disorder, single episode, moderate Raisa Garcia 09/27/2019 W F41.1 Gene ralized anxiety disorder Raisa Garcia 09/27/2019 W I10 Essent ial (primary) hypertension Raisa Garcia 09/27/2019 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 Raisa Garcia 10/03/2019 ROMAIN LOFTON MD, Ot E78.00 PURE HYPERCHOLESTEROLEMIA, UNSPECIFIED 10/03/2019 ROMAIN LOFTON MD, Ot F32.9 MAJOR DEPRESSIVE DISORDER, SINGLE EPISOD 10/03/2019 ROMAIN LOFTON MD, Ot F41.9 ANXIETY DISORDER, UNSPECIFIED 10/03/2019 ROMAIN LOFTON MD, Ot I10 ESSENTIAL (PRIMARY) HYPERTENSION 10/03/2019 ROMAIN LOFTON MD, Ot K21.0 GASTRO-ESOPHAGEAL REFLUX DISEASE WITH ES 10/03/2019 ROMAIN LOFTON MD, Ot K22.10 ULCER OF ESOPHAGUS WITHOUT BLEEDING 10/03/2019 ROMAIN LOFTON MD, Ot K22.2 ESOPHAGEAL OBSTRUCTION 10/03/2019 ROMAIN LOFTON MD, Ot K29.70 GASTRITIS, UNSPECIFIED, WITHOUT BLEEDING 10/03/2019 ROMAIN LOFTON MD, Ot K31.84 GASTROPARESIS 10/03/2019 ROMAIN LOFTON MD, Ot K44.9 DIAPHRAGMATIC HERNIA WITHOUT OBSTRUCTION 10/03/2019 ROMAIN LOFTON MD, Ot K57.30 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 AB 10/03/2019 ROMAIN LOFTON MD, Ot K64.1 SECOND DEGREE HEMORRHOIDS 10/03/2019 ROMAIN LOFTON MD, Ot M06.9 RHEUMATOID ARTHRITIS, UNSPECIFIED 10/03/2019 ROMAIN LOFTON MD, Ot R19.4 CHANGE IN BOWEL HABIT 10/03/2019 ROMAIN LOFTON MD, Ot Z79.89 9 OTHER [facility] (CURRENT) DRUG THERAPY 10/03/2019 ROMAIN LOFTON MD, Ot Z86.01 0 PERSONAL HISTORY OF COLONIC POLYPS 10/03/2019 ROMAIN LOFTON MD, Ot Z87.19 PERSONAL HISTORY OF OTHER DISEASES OF 10/03/2019 ROMAIN LOFTON MD, Ot Z87.89 1 PERSONAL HISTORY OF NICOTINE DEPENDENCE 10/03/2019 ROMAIN LOFTON MD, Ot Z88.8 ALLERGY STATUS TO OTH DRUG/MEDS/BIOL SUB 10/03/2019 ROMAIN LOFTON MD, Ot E78.00 PURE HYPERCHOLESTEROLEMIA, UNSPECIFIED 10/03/2019 ROMAIN LOFTON MD, Ot F32.9 MAJOR DEPRESSIVE DISORDER, SINGLE EPISOD 10/03/2019 ROMAIN LOFTON MD, Ot F41.9 ANXIETY DISORDER, UNSPECIFIED 10/03/2019 ROMAIN LOFTON MD, Ot I10 ESSENTIAL (PRIMARY) HYPERTENSION 10/03/2019 ROMAIN LOFTON MD, Ot K21.0 GASTRO-ESOPHAGEAL REFLUX DISEASE WITH ES 10/03/2019 ROMAIN LOFTON MD, Ot K22.10 ULCER OF ESOPHAGUS WITHOUT BLEEDING 10/03/2019 ROMAIN LOFTON MD, Ot K22.2 ESOPHAGEAL OBSTRUCTION 10/03/2019 ROMAIN LOFTON MD, Ot K29.70 GASTRITIS, UNSPECIFIED, WITHOUT BLEEDING 10/03/2019 ROMAIN LOFTON MD, Ot K31.84 GASTROPARESIS 10/03/2019 ROMAIN LOFTON MD, Ot K44.9 DIAPHRAGMATIC HERNIA WITHOUT OBSTRUCTION 10/03/2019 ROMAIN LOFTON MD, Ot K57.30 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 AB 10/03/2019 ROMAIN LOFTON MD, Ot K64.1 SECOND DEGREE HEMORRHOIDS 10/03/2019 ROMAIN LOFTON MD, Ot M06.9 RHEUMATOID ARTHRITIS, UNSPECIFIED 10/03/2019 ROMAIN LOFTON MD, Ot R19.4 CHANGE IN BOWEL HABIT 10/03/2019 ROMAIN LOFTON MD, Ot Z79.89 9 OTHER HALF-WAY (CURRENT) DRUG THERAPY 10/03/2019 ROMAIN LOFTON MD, Ot Z86.01 0 PERSONAL HISTORY OF COLONIC POLYPS 10/03/2019 ROMAIN LOFTON MD, Ot Z87.19 PERSONAL HISTORY OF OTHER DISEASES OF 10/03/2019 ROMAIN LOFTON MD, Ot Z87.89 1 PERSONAL HISTORY OF NICOTINE DEPENDENCE 10/03/2019 ROLLY SOTO ROMAIN Gruber Z88.8 ALLERGY STATUS TO OT DRUG/MEDS/BIOL SUB Procedures There is no data. Results Test Result Range Complete blood count (CBC) with automate d white blood cell (WBC) differential - 01/10/16 20:35 Blood leukocytes automated count (number/volume) 5.3 10*3/uL 4.3-11.0 Blood erythrocytes automated count (number/volume) 4.41 10*6/uL 4.35-5.85 Venous blood hemoglobin measurement (mass/volume) 12.7 g/dL 13.3-17.7 Blood hematocrit (volume fraction) 39 % 40-54 Automated erythrocyte mean corpuscular volume 89 [ foz_us] 80-99 Automated erythrocyte mean corpuscular h emoglobin (mass per erythrocyte) 29 pg 25-34 Automated erythrocyte mean corpuscular h emoglobin concentration measurement (mass/volume) 33 g/dL 32-36 Automated erythrocyte distribution width ratio 15. 0 % 10.0- 14.5 Automated blood platelet count (count/volume) 290 10*3/uL 130-400 Automated blood platelet mean volume measurement 10.3 [foz_us] 7.4-10.4 Automated blood neutrophils/100 leukocytes 58 % 42-75 Automated blood lymphocytes/100 leukocytes 26 % 12-44 Blood monocytes/100 leukocytes 10 % 0-12 Automated blood eosinophils/100 leukocytes 5 % 0-10 Automated blood basophils/100 leukocytes 1 % 0-10 Blood neutrophils automated count (number/volume) 3.1 10*3 1.8-7.8 Blood lymphocytes automated count (number/volume) 1.4 10*3 1.0-4.0 Blood monocytes automated count (number/volume) 0. 5 10*3 0.0-1.0 Automated eosinophil count 0.3 10*3/uL 0 .0-0.3 Automated blood basophil count (count/volume) 0.0 10*3/uL 0.0-0.1 Fibrin D-dimer FEU measurement in platel et poor plasma (mass/volume) - 01/10/16 20:35 Fibrin D-dimer FEU measurement in platelet poor plasma (mass/volume) 0.41 ug/mL 0.00-0.49 Comprehensive metabolic panel - 01/10/16 20:35 Serum or plasma sodium measurement (moles/volume) 139 mmol/L 135-145 Serum or plasma potassium measurement (moles/volume) 4.5 mmol/L 3.6-5.0 Serum or plasma chloride measurement (moles/volume) 108 mmol/L 98-107 Carbon dioxide 18 mmol/L 21-32 Serum or plasma anion gap determination (moles/volume) 13 mmol/L 5-14 Serum or plasma urea nitrogen measurement (mass/volume ) 14 mg/dL 7-18 Serum or plasma creatinine measurement (mass/volume) 0.91 mg/dL 0.60-1.30 Serum or plasma urea nitrogen/creatinine mass ratio 15 NRG Serum or plasma creatinine measurement w ith calculation of estimated glomerular filtration rate > NRG Serum or plasma glucose measurement (mass/volume) 73 mg/dL 70-105 Serum or plasma calcium measurement (mass/volume) 8.8 mg/dL 8.5-10.1 Serum or plasma total bilirubin measurement (mass/volu me) 0.2 mg/dL 0.1-1.0 Serum or plasma alkaline phosphatase conchita surement (enzymatic activity/volume) 71 U/L 40-136 Serum or plasma aspartate aminotransfera se measurement (enzymatic activity/volume) 30 U/L 5-34 Serum or plasma alanine aminotransferase measurement (enzymatic activity/volume) 19 U/L 0-55 Serum or plasma protein measurement (mass/volume) 6.9 g/dL 6.4-8.2 Serum or plasma albumin measurement (mass/volume) 3.9 g/dL 3.2-4.5 Magnesium - 01/10/16 20:35 Magnesium 2.6 mg/dL 1.8-2.4 Serum or plasma troponin i.cardiac measu rement (mass/volume) - 01/10/16 20:35 Serum or plasma troponin i.cardiac measurement (mass/v olume) < ng/mL <0.30 Serum or plasma thyrotropin measurement by detection limit <=0.05 miu/l (units/volume) - 01/10/16 20:35 Serum or plasma thyrotropin measurement by detection limit <=0.05 miu/l (units/volume) 0.85 u[iU]/mL 0.35-4.94 Complete urinalysis with reflex to cultu re - 01/10/16 22:00 Urine color determination YELLOW NRG Urine clarity determination CLEAR NR G Urine pH measurement by test strip 6 5-9 Specific gravity of urine by test strip 1.020 1.016-1.022 Urine protein assay by test strip, semi-quantitative NEGATIVE NEGATIVE Urine glucose detection by automated test strip NE GATIVE NEGATIVE Erythrocytes detection in urine sediment by light micr oscopy NEGATIVE NEGATIVE Urine ketones detection by automated test strip NE GATIVE NEGATIVE Urine nitrite detection by test strip NEGATIVE NEGATIVE Urine total bilirubin detection by test strip NEGA TIVE NEGATIVE Urine urobilinogen measurement by automated test strip (mass/volume) NORMAL NORMAL Urine leukocyte esterase detection by dipstick 1+ NEGATIVE Automated urine sediment erythrocyte cou nt by microscopy (number/high power field) NONE NRG Automated urine sediment leukocyte count by microscopy (number/high power field) RARE NRG Bacteria detection in urine sediment by light microsco py NEGATIVE NRG Squamous epithelial cells detection in u rine sediment by light microscopy 0-2 NRG Crystals detection in urine sediment by light microsco py NONE NRG Casts detection in urine sediment by light microscopy NONE NRG Mucus detection in urine sediment by light microscopy LARGE NRG Complete urinalysis with reflex to culture NO NRG Influenza virus A and B antigen detectio n - 03/30/16 22:13 FLU RESULT NEGATIVE FOR INFLUENZA A AND B ANTIGENS BY IA NRG Complete blood count (CBC) with automate d white blood cell (WBC) differential - 03/30/16 23:33 Blood leukocytes automated count (number/volume) 9.0 10*3/uL 4.3-11.0 Blood erythrocytes automated count (number/volume) 4.80 10*6/uL 4.35-5.85 Venous blood hemoglobin measurement (mass/volume) 13.4 g/dL 13.3-17.7 Blood hematocrit (volume fraction) 42 % 40-54 Automated erythrocyte mean corpuscular volume 87 [ foz_us] 80-99 Automated erythrocyte mean corpuscular h emoglobin (mass per erythrocyte) 28 pg 25-34 Automated erythrocyte mean corpuscular h emoglobin concentration measurement (mass/volume) 32 g/dL 32-36 Automated erythrocyte distribution width ratio 15. 8 % 10.0- 14.5 Automated blood platelet count (count/volume) 216 10*3/uL 130-400 Automated blood platelet mean volume measurement 9.5 [foz_us] 7.4-10.4 Automated blood neutrophils/100 leukocytes 72 % 42-75 Automated blood lymphocytes/100 leukocytes 16 % 12-44 Blood monocytes/100 leukocytes 11 % 0-12 Automated blood eosinophils/100 leukocytes 1 % 0-10 Automated blood basophils/100 leukocytes 0 % 0-10 Blood neutrophils automated count (number/volume) 6.5 10*3 1.8-7.8 Blood lymphocytes automated count (number/volume) 1.4 10*3 1.0-4.0 Blood monocytes automated count (number/volume) 1. 0 10*3 0.0-1.0 Automated eosinophil count 0.1 10*3/uL 0 .0-0.3 Automated blood basophil count (count/volume) 0.0 10*3/uL 0.0-0.1 PT panel in platelet poor plasma by coag ulation assay - 03/30/16 23:33 Prothrombin time (PT) in platelet poor plasma by coagu lation assay 13.2 s 12.2-14.7 INR in platelet poor plasma or blood by coagulation as say 1.0 0.8-1.4 Activated partial thromboplastin time (a PTT) in platelet poor plasma bycoagulation assay - 03/30/16 23:33 Activated partial thromboplastin time (a PTT) in platelet poor plasma bycoagulation assay 31 s 24-35 Blood lactic acid measurement (moles/vol ume) - 03/30/16 23:33 Blood lactic acid measurement (moles/volume) 1.6 m mol/L 0.5- 2.0 Comprehensive metabolic panel - 03/30/16 23:33 Serum or plasma sodium measurement (moles/volume) 134 mmol/L 135-145 Serum or plasma potassium measurement (moles/volume) 3.9 mmol/L 3.6-5.0 Serum or plasma chloride measurement (moles/volume) 99 mmol/L 98-107 Carbon dioxide 23 mmol/L 21-32 Serum or plasma anion gap determination (moles/volume) 12 mmol/L 5-14 Serum or plasma urea nitrogen measurement (mass/volume ) 14 mg/dL 7-18 Serum or plasma creatinine measurement (mass/volume) 0.87 mg/dL 0.60-1.30 Serum or plasma urea nitrogen/creatinine mass ratio 16 NRG Serum or plasma creatinine measurement w ith calculation of estimated glomerular filtration rate > NRG Serum or plasma glucose measurement (mass/volume) 101 mg/dL 70-105 Serum or plasma calcium measurement (mass/volume) 8.9 mg/dL 8.5-10.1 Serum or plasma total bilirubin measurement (mass/volu me) 0.5 mg/dL 0.1-1.0 Serum or plasma alkaline phosphatase conchita surement (enzymatic activity/volume) 64 U/L 40-136 Serum or plasma aspartate aminotransfera se measurement (enzymatic activity/volume) 36 U/L 5-34 Serum or plasma alanine aminotransferase measurement (enzymatic activity/volume) 31 U/L 0-55 Serum or plasma protein measurement (mass/volume) 6.9 g/dL 6.4-8.2 Serum or plasma albumin measurement (mass/volume) 4.0 g/dL 3.2-4.5 Serum or plasma C reactive protein measu rement (mass/volume) - 03/30/16 23:33 Serum or plasma C reactive protein measurement (mass/v olume) 1.73 mg/dL 0.00-0.50 Bacterial blood culture - 03/30/16 23:33 Bacterial blood culture NG NRG Bacterial blood culture - 03/30/16 23:50 Bacterial blood culture NG NRG Complete blood count (CBC) with automate d white blood cell (WBC) differential - 03/31/16 05:35 Blood leukocytes automated count (number/volume) 8.7 10*3/uL 4.3-11.0 Blood erythrocytes automated count (number/volume) 4.23 10*6/uL 4.35-5.85 Venous blood hemoglobin measurement (mass/volume) 12.0 g/dL 13.3-17.7 Blood hematocrit (volume fraction) 37 % 40-54 Automated erythrocyte mean corpuscular volume 87 [ foz_us] 80-99 Automated erythrocyte mean corpuscular h emoglobin (mass per erythrocyte) 28 pg 25-34 Automated erythrocyte mean corpuscular h emoglobin concentration measurement (mass/volume) 33 g/dL 32-36 Automated erythrocyte distribution width ratio 15. 4 % 10.0- 14.5 Automated blood platelet count (count/volume) 214 10*3/uL 130-400 Automated blood platelet mean volume measurement 9.4 [foz_us] 7.4-10.4 Automated blood neutrophils/100 leukocytes 80 % 42-75 Automated blood lymphocytes/100 leukocytes 9 % 12-44 Blood monocytes/100 leukocytes 11 % 0-12 Automated blood eosinophils/100 leukocytes 0 % 0-10 Automated blood basophils/100 leukocytes 0 % 0-10 Blood neutrophils automated count (number/volume) 7.0 10*3 1.8-7.8 Blood lymphocytes automated count (number/volume) 0.8 10*3 1.0-4.0 Blood monocytes automated count (number/volume) 0. 9 10*3 0.0-1.0 Automated eosinophil count 0.0 10*3/uL 0 .0-0.3 Automated blood basophil count (count/volume) 0.0 10*3/uL 0.0-0.1 Whole blood basic metabolic panel - 03/04 12/17 06:35 Serum or plasma sodium measurement (moles/volume) 135 mmol/L 135-145 Serum or plasma potassium measurement (moles/volume) 3.9 mmol/L 3.6-5.0 Serum or plasma chloride measurement (moles/volume) 101 mmol/L 98-107 Carbon dioxide 25 mmol/L 21-32 Serum or plasma anion gap determination (moles/volume) 9 mmol/L 5-14 Serum or plasma urea nitrogen measurement (mass/volume ) 19 mg/dL 7-18 Serum or plasma creatinine measurement (mass/volume) 0.85 mg/dL 0.60-1.30 Serum or plasma urea nitrogen/creatinine mass ratio 22 NRG Serum or plasma creatinine measurement w ith calculation of estimated glomerular filtration rate > NRG Serum or plasma glucose measurement (mass/volume) 124 mg/dL 70-105 Serum or plasma calcium measurement (mass/volume) 8.4 mg/dL 8.5-10.1 Complete blood count (CBC) with automate d white blood cell (WBC) differential - 04/01/16 05:35 Blood leukocytes automated count (number/volume) 9.9 10*3/uL 4.3-11.0 Blood erythrocytes automated count (number/volume) 4.19 10*6/uL 4.35-5.85 Venous blood hemoglobin measurement (mass/volume) 11.7 g/dL 13.3-17.7 Blood hematocrit (volume fraction) 37 % 40-54 Automated erythrocyte mean corpuscular volume 87 [ foz_us] 80-99 Automated erythrocyte mean corpuscular h emoglobin (mass per erythrocyte) 28 pg 25-34 Automated erythrocyte mean corpuscular h emoglobin concentration measurement (mass/volume) 32 g/dL 32-36 Automated erythrocyte distribution width ratio 15. 3 % 10.0- 14.5 Automated blood platelet count (count/volume) 204 10*3/uL 130-400 Automated blood platelet mean volume measurement 9.6 [foz_us] 7.4-10.4 Automated blood neutrophils/100 leukocytes 90 % 42-75 Automated blood lymphocytes/100 leukocytes 6 % 12-44 Blood monocytes/100 leukocytes 4 % 0-12 Automated blood eosinophils/100 leukocytes 0 % 0-10 Automated blood basophils/100 leukocytes 0 % 0-10 Blood neutrophils automated count (number/volume) 8.9 10*3 1.8-7.8 Blood lymphocytes automated count (number/volume) 0.6 10*3 1.0-4.0 Blood monocytes automated count (number/volume) 0. 4 10*3 0.0-1.0 Automated eosinophil count 0.0 10*3/uL 0 .0-0.3 Automated blood basophil count (count/volume) 0.0 10*3/uL 0.0-0.1 Comprehensive metabolic panel - 04/01/16 05:35 Serum or plasma sodium measurement (moles/volume) 140 mmol/L 135-145 Serum or plasma potassium measurement (moles/volume) 4.1 mmol/L 3.6-5.0 Serum or plasma chloride measurement (moles/volume) 108 mmol/L 98-107 Carbon dioxide 21 mmol/L 21-32 Serum or plasma anion gap determination (moles/volume) 11 mmol/L 5-14 Serum or plasma urea nitrogen measurement (mass/volume ) 21 mg/dL 7-18 Serum or plasma creatinine measurement (mass/volume) 0.83 mg/dL 0.60-1.30 Serum or plasma urea nitrogen/creatinine mass ratio 25 NRG Serum or plasma creatinine measurement w ith calculation of estimated glomerular filtration rate > NRG Serum or plasma glucose measurement (mass/volume) 138 mg/dL 70-105 Serum or plasma calcium measurement (mass/volume) 8.3 mg/dL 8.5-10.1 Serum or plasma total bilirubin measurement (mass/volu me) 0.3 mg/dL 0.1-1.0 Serum or plasma alkaline phosphatase conchita surement (enzymatic activity/volume) 53 U/L 40-136 Serum or plasma aspartate aminotransfera se measurement (enzymatic activity/volume) 24 U/L 5-34 Serum or plasma alanine aminotransferase measurement (enzymatic activity/volume) 26 U/L 0-55 Serum or plasma protein measurement (mass/volume) 6.1 g/dL 6.4-8.2 Serum or plasma albumin measurement (mass/volume) 3.5 g/dL 3.2-4.5 Complete blood count (CBC) with automate d white blood cell (WBC) differential - 04/06/16 17:09 Blood leukocytes automated count (number/volume) 9.9 10*3/uL 4.3-11.0 Blood erythrocytes automated count (number/volume) 4.47 10*6/uL 4.35-5.85 Venous blood hemoglobin measurement (mass/volume) 12.6 g/dL 13.3-17.7 Blood hematocrit (volume fraction) 39 % 40-54 Automated erythrocyte mean corpuscular volume 86 [ foz_us] 80-99 Automated erythrocyte mean corpuscular h emoglobin (mass per erythrocyte) 28 pg 25-34 Automated erythrocyte mean corpuscular h emoglobin concentration measurement (mass/volume) 33 g/dL 32-36 Automated erythrocyte distribution width ratio 15. 3 % 10.0- 14.5 Automated blood platelet count (count/volume) 323 10*3/uL 130-400 Automated blood platelet mean volume measurement 9.4 [foz_us] 7.4-10.4 Automated blood neutrophils/100 leukocytes 63 % 42-75 Automated blood lymphocytes/100 leukocytes 25 % 12-44 Blood monocytes/100 leukocytes 10 % 0-12 Automated blood eosinophils/100 leukocytes 2 % 0-10 Automated blood basophils/100 leukocytes 0 % 0-10 Blood neutrophils automated count (number/volume) 6.2 10*3 1.8-7.8 Blood lymphocytes automated count (number/volume) 2.5 10*3 1.0-4.0 Blood monocytes automated count (number/volume) 1. 0 10*3 0.0-1.0 Automated eosinophil count 0.2 10*3/uL 0 .0-0.3 Automated blood basophil count (count/volume) 0.0 10*3/uL 0.0-0.1 Complete blood count (CBC) with automate d white blood cell (WBC) differential - 12/25/16 18:10 Blood leukocytes automated count (number/volume) 14.2 10*3/uL 4.3-11.0 Blood erythrocytes automated count (number/volume) 4.62 10*6/uL 4.35-5.85 Venous blood hemoglobin measurement (mass/volume) 13.0 g/dL 13.3-17.7 Blood hematocrit (volume fraction) 41 % 40-54 Automated erythrocyte mean corpuscular volume 88 [ foz_us] 80-99 Automated erythrocyte mean corpuscular h emoglobin (mass per erythrocyte) 28 pg 25-34 Automated erythrocyte mean corpuscular h emoglobin concentration measurement (mass/volume) 32 g/dL 32-36 Automated erythrocyte distribution width ratio 14. 9 % 10.0- 14.5 Automated blood platelet count (count/volume) 268 10*3/uL 130-400 Automated blood platelet mean volume measurement 10.0 [foz_us] 7.4-10.4 Automated blood neutrophils/100 leukocytes 80 % 42-75 Automated blood lymphocytes/100 leukocytes 8 % 12-44 Blood monocytes/100 leukocytes 11 % 0-12 Automated blood eosinophils/100 leukocytes 0 % 0-10 Automated blood basophils/100 leukocytes 0 % 0-10 Blood neutrophils automated count (number/volume) 11.4 10*3 1.8-7.8 Blood lymphocytes automated count (number/volume) 1.1 10*3 1.0-4.0 Blood monocytes automated count (number/volume) 1. 6 10*3 0.0-1.0 Automated eosinophil count 0.0 10*3/uL 0 .0-0.3 Automated blood basophil count (count/volume) 0.1 10*3/uL 0.0-0.1 Blood manual differential performed dete ction - 12/25/16 18:10 Blood monocytes/100 leukocytes 14 % NRG Manual blood segmented neutrophils/100 leukocytes 65 % NRG Blood band neutrophils/100 leukocytes 10 % NRG Manual blood lymphocytes/100 leukocytes 10 % NRG Manual eosinophils/100 leukocytes in nose 0 % NRG Manual blood basophils/100 leukocytes 1 % NRG Blood erythrocyte morphology finding identification NORMAL [facility] Comprehensive metabolic panel - 12/25/16 18:10 Serum or plasma sodium measurement (moles/volume) 137 mmol/L 135-145 Serum or plasma potassium measurement (moles/volume) 4.1 mmol/L 3.6-5.0 Serum or plasma chloride measurement (moles/volume) 103 mmol/L 98-107 Carbon dioxide 21 mmol/L 21-32 Serum or plasma anion gap determination (moles/volume) 13 mmol/L 5-14 Serum or plasma urea nitrogen measurement (mass/volume ) 25 mg/dL 7-18 Serum or plasma creatinine measurement (mass/volume) 0.92 mg/dL 0.60-1.30 Serum or plasma urea nitrogen/creatinine mass ratio 27 NRG Serum or plasma creatinine measurement w ith calculation of estimated glomerular filtration rate > NRG Serum or plasma glucose measurement (mass/volume) 116 mg/dL 70-105 Serum or plasma calcium measurement (mass/volume) 8.8 mg/dL 8.5-10.1 Serum or plasma total bilirubin measurement (mass/volu me) 0.5 mg/dL 0.1-1.0 Serum or plasma alkaline phosphatase conchita surement (enzymatic activity/volume) 67 U/L 40-136 Serum or plasma aspartate aminotransfera se measurement (enzymatic activity/volume) 18 U/L 5-34 Serum or plasma alanine aminotransferase measurement (enzymatic activity/volume) 18 U/L 0-55 Serum or plasma protein measurement (mass/volume) 6.7 g/dL 6.4-8.2 Serum or plasma albumin measurement (mass/volume) 3.6 g/dL 3.2-4.5 Serum or plasma C reactive protein measu rement (mass/volume) - 12/25/16 18:10 Serum or plasma C reactive protein measurement (mass/v olume) 15.44 mg/dL 0.00-0.50 Magnesium - 12/25/16 18:22 Magnesium 1.8 mg/dL 1.8-2.4 Blood type T Indirect antibody screen pa gregorio - 12/25/16 18:52 ABO+Rh group OP NR Transfusion band number [id number] NR Blood group antibody screen NEGATIVE NR G Blood lactic acid measurement (moles/vol ume) - 12/25/16 21:02 Blood lactic acid measurement (moles/volume) 0.75 mmol/L 0.50-2.00 Bacterial blood culture - 12/25/16 21:02 Bacterial blood culture NG NRG Bacterial blood culture - 12/25/16 21:23 Bacterial blood culture NG NRG C DIFFICILE AG + TOXIN A/B. - 12/25/16 2 2:47 RESULTS NEGATIVE FOR ANTIGEN AND TOXIN A/B [facility] Stool bacteria identification by culture - 12/25/16 22:47 Stool bacteria identification by culture N2 [facility] [id number] - 12/25/16 22:47 [id number] FOOTNOTE [facility] Complete blood count (CBC) with automate d white blood cell (WBC) differential - 12/27/16 10:15 Blood leukocytes automated count (number/volume) 12.7 10*3/uL 4.3-11.0 Blood erythrocytes automated count (number/volume) 4.71 10*6/uL 4.35-5.85 Venous blood hemoglobin measurement (mass/volume) 14.4 g/dL 13.3-17.7 Blood hematocrit (volume fraction) 41 % 40-54 Automated erythrocyte mean corpuscular volume 88 [ foz_us] 80-99 Automated erythrocyte mean corpuscular h emoglobin (mass per erythrocyte) 31 pg 25-34 Automated erythrocyte mean corpuscular h emoglobin concentration measurement (mass/volume) 35 g/dL 32-36 Automated erythrocyte distribution width ratio 12. 6 % 10.0- 14.5 Automated blood platelet count (count/volume) 280 10*3/uL 130-400 Automated blood platelet mean volume measurement 10.8 [foz_us] 7.4-10.4 Automated blood neutrophils/100 leukocytes 69 % 42-75 Automated blood lymphocytes/100 leukocytes 23 % 12-44 Blood monocytes/100 leukocytes 6 % 0-12 Automated blood eosinophils/100 leukocytes 1 % 0-10 Automated blood basophils/100 leukocytes 1 % 0-10 Blood neutrophils automated count (number/volume) 8.8 10*3 1.8-7.8 Blood lymphocytes automated count (number/volume) 2.9 10*3 1.0-4.0 Blood monocytes automated count (number/volume) 0. 8 10*3 0.0-1.0 Automated eosinophil count 0.2 10*3/uL 0 .0-0.3 Automated blood basophil count (count/volume) 0.1 10*3/uL 0.0-0.1 Complete blood count (CBC) with automate d white blood cell (WBC) differential - 12/27/16 11:35 Blood leukocytes automated count (number/volume) 10.0 10*3/uL 4.3-11.0 Blood erythrocytes automated count (number/volume) 3.75 10*6/uL 4.35-5.85 Venous blood hemoglobin measurement (mass/volume) 10.7 g/dL 13.3-17.7 Blood hematocrit (volume fraction) 33 % 40-54 Automated erythrocyte mean corpuscular volume 88 [ foz_us] 80-99 Automated erythrocyte mean corpuscular h emoglobin (mass per erythrocyte) 29 pg 25-34 Automated erythrocyte mean corpuscular h emoglobin concentration measurement (mass/volume) 32 g/dL 32-36 Automated erythrocyte distribution width ratio 14. 7 % 10.0- 14.5 Automated blood platelet count (count/volume) 259 10*3/uL 130-400 Automated blood platelet mean volume measurement 9.3 [foz_us] 7.4-10.4 Automated blood neutrophils/100 leukocytes 71 % 42-75 Automated blood lymphocytes/100 leukocytes 13 % 12-44 Blood monocytes/100 leukocytes 12 % 0-12 Automated blood eosinophils/100 leukocytes 3 % 0-10 Automated blood basophils/100 leukocytes 1 % 0-10 Blood neutrophils automated count (number/volume) 7.1 10*3 1.8-7.8 Blood lymphocytes automated count (number/volume) 1.3 10*3 1.0-4.0 Blood monocytes automated count (number/volume) 1. 2 10*3 0.0-1.0 Automated eosinophil count 0.3 10*3/uL 0 .0-0.3 Automated blood basophil count (count/volume) 0.1 10*3/uL 0.0-0.1 Complete blood count (CBC) with automate d white blood cell (WBC) differential - 06/30/18 21:45 Blood leukocytes automated count (number/volume) 4.9 10*3/uL 4.3-11.0 Blood erythrocytes automated count (number/volume) 4.00 10*6/uL 4.35-5.85 Venous blood hemoglobin measurement (mass/volume) 11.3 g/dL 13.3-17.7 Blood hematocrit (volume fraction) 36 % 40-54 Automated erythrocyte mean corpuscular volume 91 [ foz_us] 80-99 Automated erythrocyte mean corpuscular h emoglobin (mass per erythrocyte) 28 pg 25-34 Automated erythrocyte mean corpuscular h emoglobin concentration measurement (mass/volume) 31 g/dL 32-36 Automated erythrocyte distribution width ratio 14. 9 % 10.0- 14.5 Automated blood platelet count (count/volume) 258 10*3/uL 130-400 Automated blood platelet mean volume measurement 9.9 [foz_us] 7.4-10.4 Automated blood neutrophils/100 leukocytes 55 % 42-75 Automated blood lymphocytes/100 leukocytes 25 % 12-44 Blood monocytes/100 leukocytes 11 % 0-12 Automated blood eosinophils/100 leukocytes 9 % 0-10 Automated blood basophils/100 leukocytes 1 % 0-10 Blood neutrophils automated count (number/volume) 2.7 10*3 1.8-7.8 Blood lymphocytes automated count (number/volume) 1.2 10*3 1.0-4.0 Blood monocytes automated count (number/volume) 0. 5 10*3 0.0-1.0 Automated eosinophil count 0.4 10*3/uL 0 .0-0.3 Automated blood basophil count (count/volume) 0.1 10*3/uL 0.0-0.1 PT panel in platelet poor plasma by coag ulation assay - 06/30/18 21:45 Prothrombin time (PT) in platelet poor plasma by coagu lation assay 13.1 s 12.2-14.7 INR in platelet poor plasma or blood by coagulation as say 1.0 0.8-1.4 Activated partial thromboplastin time (a PTT) in platelet poor plasma bycoagulation assay - 06/30/18 21:45 Activated partial thromboplastin time (a PTT) in platelet poor plasma bycoagulation assay 36 s 24-35 Comprehensive metabolic panel - 06/30/18 21:45 Serum or plasma sodium measurement (moles/volume) 144 mmol/L 135-145 Serum or plasma potassium measurement (moles/volume) 4.4 mmol/L 3.6-5.0 Serum or plasma chloride measurement (moles/volume) 106 mmol/L 98-107 Carbon dioxide 25 mmol/L 21-32 Serum or plasma anion gap determination (moles/volume) 13 mmol/L 5-14 Serum or plasma urea nitrogen measurement (mass/volume ) 16 mg/dL 7-18 Serum or plasma creatinine measurement (mass/volume) 0.81 mg/dL 0.60-1.30 Serum or plasma urea nitrogen/creatinine mass ratio 20 NRG Serum or plasma creatinine measurement w ith calculation of estimated glomerular filtration rate > NRG Serum or plasma glucose measurement (mass/volume) 97 mg/dL 70-105 Serum or plasma calcium measurement (mass/volume) 9.4 mg/dL 8.5-10.1 Serum or plasma total bilirubin measurement (mass/volu me) 0.3 mg/dL 0.1-1.0 Serum or plasma alkaline phosphatase conchita surement (enzymatic activity/volume) 77 U/L 40-136 Serum or plasma aspartate aminotransfera se measurement (enzymatic activity/volume) 32 U/L 5-34 Serum or plasma alanine aminotransferase measurement (enzymatic activity/volume) 27 U/L 0-55 Serum or plasma protein measurement (mass/volume) 7.0 g/dL 6.4-8.2 Serum or plasma albumin measurement (mass/volume) 4.2 g/dL 3.2-4.5 CALCIUM CORRECTED 9.2 mg/dL 8.5-10.1 Magnesium - 06/30/18 21:45 Magnesium 2.4 mg/dL 1.8-2.4 Serum or plasma creatine kinase measurem ent (enzymatic activity/volume) - 06/30/18 21:45 Serum or plasma creatine kinase measurem ent (enzymatic activity/volume) 308 U/L 30-200 Serum or plasma creatine kinase MB measu rement (enzymatic activity/volume) - 06/30/18 21:45 Serum or plasma creatine kinase MB measu rement (enzymatic activity/volume) 3.3 ng/mL <6.6 Serum or plasma troponin i.cardiac measu rement (mass/volume) - 06/30/18 21:45 Serum or plasma troponin i.cardiac measurement (mass/v olume) < ng/mL <0.028 Serum or plasma lithium measurement (mol es/volume) - 06/30/18 21:45 BNP level 54.8 pg/mL <100.0 Serum or plasma amylase measurement (enz ymatic activity/volume) - 06/30/18 21:45 Serum or plasma amylase measurement (enzymatic activit y/volume) 61 U/L 25-125 Lipase - 06/30/18 21:45 Lipase 6 U/L 8-78 Serum or plasma thyrotropin measurement by detection limit <=0.05 miu/l (units/volume) - 06/30/18 21:45 Serum or plasma thyrotropin measurement by detection limit <=0.05 miu/l (units/volume) 0.89 u[iU]/mL 0.35-4.94 Complete urinalysis with reflex to cultu re - 06/30/18 22:30 Urine color determination YELLOW NRG Urine clarity determination CLEAR NR G Urine pH measurement by test strip 8 5-9 Specific gravity of urine by test strip 1.015 1.016-1.022 Urine protein assay by test strip, semi-quantitative NEGATIVE NEGATIVE Urine glucose detection by automated test strip NE GATIVE NEGATIVE Erythrocytes detection in urine sediment by light micr oscopy NEGATIVE NEGATIVE Urine ketones detection by automated test strip NE GATIVE NEGATIVE Urine nitrite detection by test strip NEGATIVE NEGATIVE Urine total bilirubin detection by test strip NEGA TIVE NEGATIVE Urine urobilinogen measurement by automated test strip (mass/volume) NORMAL NORMAL Urine leukocyte esterase detection by dipstick NEG ATIVE NEGATIVE Automated urine sediment erythrocyte cou nt by microscopy (number/high power field) NONE NRG Automated urine sediment leukocyte count by microscopy (number/high power field) NONE NRG Bacteria detection in urine sediment by light microsco py NEGATIVE NRG Squamous epithelial cells detection in u rine sediment by light microscopy RARE NRG Crystals detection in urine sediment by light microsco py NONE NRG Casts detection in urine sediment by light microscopy NONE NRG Mucus detection in urine sediment by light microscopy NEGATIVE NRG Complete urinalysis with reflex to culture NO NRG Complete blood count (CBC) with automate d white blood cell (WBC) differential - 12/07/18 06:30 Blood leukocytes automated count (number/volume) 5.9 10*3/uL 4.3-11.0 Blood erythrocytes automated count (number/volume) 3.89 10*6/uL 4.35-5.85 Venous blood hemoglobin measurement (mass/volume) 11.0 g/dL 13.3-17.7 Blood hematocrit (volume fraction) 35 % 40-54 Automated erythrocyte mean corpuscular volume 89 [ foz_us] 80-99 Automated erythrocyte mean corpuscular h emoglobin (mass per erythrocyte) 28 pg 25-34 Automated erythrocyte mean corpuscular h emoglobin concentration measurement (mass/volume) 32 g/dL 32-36 Automated erythrocyte distribution width ratio 14. 9 % 10.0- 14.5 Automated blood platelet count (count/volume) 252 10*3/uL 130-400 Automated blood platelet mean volume measurement 8.7 [foz_us] 7.4-10.4 Automated blood neutrophils/100 leukocytes 53 % 42-75 Automated blood lymphocytes/100 leukocytes 29 % 12-44 Blood monocytes/100 leukocytes 13 % 0-12 Automated blood eosinophils/100 leukocytes 4 % 0-10 Automated blood basophils/100 leukocytes 1 % 0-10 Blood neutrophils automated count (number/volume) 3.2 10*3 1.8-7.8 Blood lymphocytes automated count (number/volume) 1.7 10*3 1.0-4.0 Blood monocytes automated count (number/volume) 0. 8 10*3 0.0-1.0 Automated eosinophil count 0.2 10*3/uL 0 .0-0.3 Automated blood basophil count (count/volume) 0.1 10*3/uL 0.0-0.1 Comprehensive metabolic panel - 12/07/18 06:30 Serum or plasma sodium measurement (moles/volume) 144 mmol/L 135-145 Serum or plasma potassium measurement (moles/volume) 4.0 mmol/L 3.6-5.0 Serum or plasma chloride measurement (moles/volume) 108 mmol/L 98-107 Carbon dioxide 27 mmol/L 21-32 Serum or plasma anion gap determination (moles/volume) 9 mmol/L 5-14 Serum or plasma urea nitrogen measurement (mass/volume ) 17 mg/dL 7-18 Serum or plasma creatinine measurement (mass/volume) 0.78 mg/dL 0.60-1.30 Serum or plasma urea nitrogen/creatinine mass ratio 22 NRG Serum or plasma creatinine measurement w ith calculation of estimated glomerular filtration rate > NRG Serum or plasma glucose measurement (mass/volume) 87 mg/dL 70-105 Serum or plasma calcium measurement (mass/volume) 8.8 mg/dL 8.5-10.1 Serum or plasma total bilirubin measurement (mass/volu me) 0.2 mg/dL 0.1-1.0 Serum or plasma alkaline phosphatase conchita surement (enzymatic activity/volume) 66 U/L 40-136 Serum or plasma aspartate aminotransfera se measurement (enzymatic activity/volume) 23 U/L 5-34 Serum or plasma alanine aminotransferase measurement (enzymatic activity/volume) 18 U/L 0-55 Serum or plasma protein measurement (mass/volume) 6.2 g/dL 6.4-8.2 Serum or plasma albumin measurement (mass/volume) 3.6 g/dL 3.2-4.5 CALCIUM CORRECTED 9.1 mg/dL 8.5-10.1 Magnesium - 12/07/18 06:30 Magnesium 2.0 mg/dL 1.6-2.4 Complete blood count (CBC) with automate d white blood cell (WBC) differential - 04/25/19 22:10 Blood leukocytes automated count (number/volume) 6.1 10*3/uL 4.3-11.0 Blood erythrocytes automated count (number/volume) 4.27 10*6/uL 4.35-5.85 Venous blood hemoglobin measurement (mass/volume) 12.0 g/dL 13.3-17.7 Blood hematocrit (volume fraction) 38 % 40-54 Automated erythrocyte mean corpuscular volume 88 [ foz_us] 80-99 Automated erythrocyte mean corpuscular h emoglobin (mass per erythrocyte) 28 pg 25-34 Automated erythrocyte mean corpuscular h emoglobin concentration measurement (mass/volume) 32 g/dL 32-36 Automated erythrocyte distribution width ratio 15. 1 % 10.0- 14.5 Automated blood platelet count (count/volume) 224 10*3/uL 130-400 Automated blood platelet mean volume measurement 9.5 [foz_us] 7.4-10.4 Automated blood neutrophils/100 leukocytes 66 % 42-75 Automated blood lymphocytes/100 leukocytes 19 % 12-44 Blood monocytes/100 leukocytes 10 % 0-12 Automated blood eosinophils/100 leukocytes 5 % 0-10 Automated blood basophils/100 leukocytes 1 % 0-10 Blood neutrophils automated count (number/volume) 4.0 10*3 1.8-7.8 Blood lymphocytes automated count (number/volume) 1.1 10*3 1.0-4.0 Blood monocytes automated count (number/volume) 0. 6 10*3 0.0-1.0 Automated eosinophil count 0.3 10*3/uL 0 .0-0.3 Automated blood basophil count (count/volume) 0.0 10*3/uL 0.0-0.1 PT panel in platelet poor plasma by coag ulation assay - 04/25/19 22:10 Prothrombin time (PT) in platelet poor plasma by coagu lation assay 13.0 s 12.2-14.7 INR in platelet poor plasma or blood by coagulation as say 0.9 0.8-1.4 Activated partial thromboplastin time (a PTT) in platelet poor plasma bycoagulation assay - 04/25/19 22:10 Activated partial thromboplastin time (a PTT) in platelet poor plasma bycoagulation assay 32 s 24-35 Comprehensive metabolic panel - 04/25/19 22:10 Serum or plasma sodium measurement (moles/volume) 141 mmol/L 135-145 Serum or plasma potassium measurement (moles/volume) 4.0 mmol/L 3.6-5.0 Serum or plasma chloride measurement (moles/volume) 106 mmol/L 98-107 Carbon dioxide 23 mmol/L 21-32 Serum or plasma anion gap determination (moles/volume) 12 mmol/L 5-14 Serum or plasma urea nitrogen measurement (mass/volume ) 16 mg/dL 7-18 Serum or plasma creatinine measurement (mass/volume) 0.90 mg/dL 0.60-1.30 Serum or plasma urea nitrogen/creatinine mass ratio 18 NRG Serum or plasma creatinine measurement w ith calculation of estimated glomerular filtration rate > NRG Serum or plasma glucose measurement (mass/volume) 115 mg/dL 70-105 Serum or plasma calcium measurement (mass/volume) 9.4 mg/dL 8.5-10.1 Serum or plasma total bilirubin measurement (mass/volu me) 0.2 mg/dL 0.1-1.0 Serum or plasma alkaline phosphatase conchita surement (enzymatic activity/volume) 74 U/L 40-136 Serum or plasma aspartate aminotransfera se measurement (enzymatic activity/volume) 32 U/L 5-34 Serum or plasma alanine aminotransferase measurement (enzymatic activity/volume) 30 U/L 0-55 Serum or plasma protein measurement (mass/volume) 7.3 g/dL 6.4-8.2 Serum or plasma albumin measurement (mass/volume) 4.3 g/dL 3.2-4.5 CALCIUM CORRECTED 9.2 mg/dL 8.5-10.1 Magnesium - 04/25/19 22:10 Magnesium 2.2 mg/dL 1.6-2.4 Serum or plasma troponin i.cardiac measu rement (mass/volume) - 04/25/19 22:10 Serum or plasma troponin i.cardiac measurement (mass/v olume) < ng/mL <0.028 Serum or plasma salicylates measurement (mass/volume) - 04/25/19 22:10 Serum or plasma salicylates measurement (mass/volume) < mg/dL 5.0-20.0 Serum or plasma acetaminophen measuremen t (mass/volume) - 04/25/19 22:10 Serum or plasma acetaminophen measurement (mass/volume ) < ug/mL 10-30 Serum or plasma lithium measurement (mol es/volume) - 04/25/19 22:10 BNP PT 21.0 pg/mL <100.0 Bacterial blood culture - 04/25/19 22:10 Bacterial blood culture NG NRG Influenza virus A and B antigen detectio n - 04/25/19 22:14 FLU RESULT NEGATIVE FOR INFLUENZA A AND B ANTIGENS BY IA NRG Complete urinalysis with reflex to cultu re - 04/25/19 22:26 Urine color determination YELLOW NRG Urine clarity determination CLEAR NR G Urine pH measurement by test strip 5.5 5-9 Specific gravity of urine by test strip <= 1.016-1.022 Urine protein assay by test strip, semi-quantitative NEGATIVE NEGATIVE Urine glucose detection by automated test strip NE GATIVE NEGATIVE Erythrocytes detection in urine sediment by light micr oscopy NEGATIVE NEGATIVE Urine ketones detection by automated test strip NE GATIVE NEGATIVE Urine nitrite detection by test strip NEGATIVE NEGATIVE Urine total bilirubin detection by test strip NEGA TIVE NEGATIVE Urine urobilinogen measurement by automated test strip (mass/volume) 0.2 mg/dL < = 1.0 Urine leukocyte esterase detection by dipstick NEG ATIVE NEGATIVE Automated urine sediment erythrocyte cou nt by microscopy (number/high power field) NONE NRG Automated urine sediment leukocyte count by microscopy (number/high power field) [HPF] NRG Bacteria detection in urine sediment by light microsco py TRACE NRG Crystals detection in urine sediment by light microsco py NONE NRG Casts detection in urine sediment by light microscopy NONE NRG Mucus detection in urine sediment by light microscopy NEGATIVE NRG Complete urinalysis with reflex to culture NO NRG Urine drug screening test - 04/25/19 22: 26 Urine phencyclidine detection by screening method NEGATIVE NEGATIVE Urine benzodiazepines detection by screening method NEGATIVE NEGATIVE Urine cocaine detection NEGATIVE NEGATI VE Urine amphetamines detection by screening method N EGATIVE NEGATIVE Urine methamphetamine detection by screening method NEGATIVE NEGATIVE Urine cannabinoids detection by screening method N EGATIVE NEGATIVE Urine opiates detection by screening method POSITI VE NEGATIVE Urine barbiturates detection NEGATIVE N EGATIVE Screening urine tricyclic antidepressants detection NEGATIVE NEGATIVE Urine methadone detection by screening method NEGA TIVE NEGATIVE Urine oxycodone detection NEGATIVE NEGA TIVE Urine propoxyphene detection NEGATIVE N EGATIVE Blood lactic acid measurement (moles/vol ume) - 04/25/19 22:46 Blood lactic acid measurement (moles/volume) 1.00 mmol/L 0.50-2.00 Bacterial blood culture - 04/25/19 22:46 Bacterial blood culture NG NRG Coronavirus SARS-CoV-2 SO 2019 - 0 08:03 Coronavirus Ab [Units/volume] in Serum Negative Negative Complete blood count (CBC) with automate d white blood cell (WBC) differential - 10/03/19 13:30 Blood leukocytes automated count (number/volume) 11.0 10*3/uL 4.3-11.0 Blood erythrocytes automated count (number/volume) 4.30 10*6/uL 4.35-5.85 Venous blood hemoglobin measurement (mass/volume) 12.4 g/dL 13.3-17.7 Blood hematocrit (volume fraction) 39 % 40-54 Automated erythrocyte mean corpuscular volume 91 [ foz_us] 80-99 Automated erythrocyte mean corpuscular h emoglobin (mass per erythrocyte) 29 pg 25-34 Automated erythrocyte mean corpuscular h emoglobin concentration measurement (mass/volume) 32 g/dL 32-36 Automated erythrocyte distribution width ratio 14. 9 % 10.0- 14.5 Automated blood platelet count (count/volume) 313 10*3/uL 130-400 Automated blood platelet mean volume measurement 9.5 [foz_us] 7.4-10.4 Automated blood neutrophils/100 leukocytes 84 % 42-75 Automated blood lymphocytes/100 leukocytes 9 % 12-44 Blood monocytes/100 leukocytes 6 % 0-12 Automated blood eosinophils/100 leukocytes 2 % 0-10 Automated blood basophils/100 leukocytes 0 % 0-10 Blood neutrophils automated count (number/volume) 9.2 10*3 1.8-7.8 Blood lymphocytes automated count (number/volume) 0.9 10*3 1.0-4.0 Blood monocytes automated count (number/volume) 0. 7 10*3 0.0-1.0 Automated eosinophil count 0.2 10*3/uL 0 .0-0.3 Automated blood basophil count (count/volume) 0.0 10*3/uL 0.0-0.1 Encounters ACCT No. Visit Date/Time Discharge Status Pt. Type Provider Facility Loc./Unit Complaint [id number] 05/09/2019 16:15:24 05/09/2019 23:59:5 9 CLS Outpatient [id number] 09/20/2019 11:48:00 14:10:00 DIS Outpatient ROMAIN LOFTON MD [facility] ENDO CHANGE IN BOWEL HABITS/REFLUX/DYSPHAGIA [id number] 09/18/2019 10:53:00 11:03:00 DIS Outpatient ROMAIN LOFTON MD [facility] PREOP COLONOSCOPY/EGD [id number] 04/25/2019 21:31:00 23:25:00 DIS Emergency ERIK DOCB [facility] ER LEG PAIN,CONGESTED,SOB [id number] 01/31/2019 08:02:00 23:59:59 CLS Outpatient LINDA CRAWFORD MD [facility] RAD HEMOPTYSIS [id number] 12/07/2018 06:05:00 019 08:55:00 DIS Emergency MICA JACOBSON MD [facility] ER LEG CRAMPS [id number] 06/30/2018 20:17:00 019 00:14:00 DIS Emergency ERIKCB Hutton DO [facility] ER SOA,FALL YESTERDAY,LEG PAIN [id number] 06/06/2017 09:53:00 018 23:59:59 CLS Outpatient LINDA CRAWFORD MD [facility] RAD BILATERAL PAIN [id number] 02/15/2017 10:43:00 14:05:00 DIS Outpatient ROMAIN LOFTON MD [facility] ENDO HX OF DIVERTICULITIS/LL Q PAIN [id number] 02/14/2017 05:40:00 017 11:15:00 DIS Outpatient ROMAIN LOFTON MD [facility] PREOP COLO [id number] 12/25/2016 21:00:00 017 12:05:00 DIS Inpatient RAZIA PINTO MD [facility] 4TH COLITIS, DIVERTICULITIS [id number] 04/06/2016 17:00:00 017 23:59:59 CLS Outpatient DARIO ENGLAND APRN [facility] RAD SHORTNESS OF BR EATH AT REST [id number] 03/31/2016 01:16:00 016 12:35:00 DIS Inpatient ANTONIO BERNSTEIN DO, V [facility] 4TH SEPSIS,PNEUMONIA,HYPOXI A [id number] 02/18/2016 08:53:00 016 23:59:59 CLS Outpatient FIDENCIO PERSAUD [facility] QUICK CXR [id number] 01/10/2016 20:17:00 016 23:03:00 DIS Emergency AUDIE MORA [facility] ER SOA [id number] 07/09/2015 09:10:00 016 23:59:59 CLS Outpatient LINDA CRAWFORD MD [facility] RAD FOSAMAX USAGE [id number] 06/23/2015 13:21:00 016 23:59:59 CLS Outpatient LINDA CRAWFORD MD [facility] LAB HTN,OSTEPOROSIS [id number] 09/24/2014 08:36:00 015 12:05:00 DIS Emergency SRINATH KESSLER MD [facility] ER POSS MED REACTION [id number] 02/21/2014 13:09:00 014 23:59:59 CLS Outpatient JAMARCUS POWELL DO [facility] RT ASTHMA,DYSPNEA [id number] 01/28/2014 07:20:00 23:59:59 CLS Outpatient LINDA CRAWFORD MD [facility] RAD DIPLOPIA WORD FINDING H A SPEECH [id number] 11/13/2013 11:38:00 23:59:59 CLS Outpatient LINDA CRAWFORD MD [facility] RAD HEADACHE,DOUBLE VISION [id number] 08/21/2013 14:54:00 17:12:00 DIS Emergency MONET SOTO, LC Ramon [facility] ER ALLERGIC REACTI ON [id number] 10/03/2019 13:26:[address] Emergency CARISA HARDIN APRN [facility] ER ABD PAIND [id number] 02/21/2014 13:09:00 Document Registration [id number] 02/21/2014 13:09:00 Document Registration [id number] 01/13/2012 08:25:00 Document Registration [id number] 01/09/2012 08:48:00 Document Registration [id number] 01/06/2012 08:39:00 Document Registration [id number] 11/18/2011 12:23:00 Document Registration [id number] 10/06/2010 07:54:00 Document Registration [id number] 09/09/2010 05:41:00 Document Registration [id number] 09/07/2010 07:36:00 Document Registration [id number] 06/01/2010 07:14:00 Document Registration [id number] 05/18/2010 12:53:00 Document Registration [id number] 05/07/2010 13:33:00 Document Registration [id number] 05/05/2010 08:19:00 Document Registration [id number] 04/20/2010 11:28:00 Document Registration [id number] 04/12/2010 09:55:00 Document Registration [id number] 03/22/2010 10:00:00 Document Registration [id number] 03/09/2010 14:24:00 Document Registration [id number] 11/12/2009 15:30:00 Document Registration [id number] 10/08/2009 22:25:00 Document Registration
[2019-10-03 14:03] LABS: CHLORIDE 105 MMOL/L (98-107); POTASSIUM 4.9 MMOL/L (3.6-5.0); SODIUM 143 MMOL/L (135-145)
[2019-10-03 14:04] LABS: CALCIUM 9.6 MG/DL (8.5-10.1)
[2019-10-03 14:05] LABS: GLUCOSE 168 MG/DL (70-105); TOTAL PROTEIN 7.7 GM/DL (6.4-8.2)
[2019-10-03 14:06] LABS: CARBON DIOXIDE 26 MMOL/L (21-32)
[2019-10-03 14:07] LABS: BILIRUBIN,TOTAL 0.3 MG/DL (0.1-1.0)
[2019-10-03 14:08] LABS: ALKALINE PHOSPHATASE 73 U/L (40-136)
[2019-10-03 14:09] LABS: CREATININE SERUM 0.88 MG/DL (0.60-1.30); GFR ESTIMATED > 60
[2019-10-03 14:10] LABS: BUN/CREATININE RATIO 28
[2019-10-03 14:12] LABS: ALANINE AMINOTRANSFERASE 22 U/L (0-55); LIPASE 30 U/L (8-78)
[2019-10-03] MEDS ORDERED: NS 100 ML (IVPB) BAG IV ONE (14:15)
[2019-10-03] MEDS ORDERED: HOLD METFORMIN - RECEIVED CONTRAST 20 ML VIAL IV SCH (14:15)
[2019-10-03] MEDS ORDERED: IOHEXOL 350 MG/ML 100 ML (OMNIPAQUE 350) VIAL IV ONE (14:15)
--- NOTE | 2019-10-03 15:09 | Diagnostic Imaging Report ---
PROCEDURE: CT abdomen and pelvis with contrast. TECHNIQUE: Multiple contiguous axial images were obtained through the abdomen and pelvis after administration of intravenous contrast. Auto Exposure Controls were utilized during the CT exam to meet ALARA standards for radiation dose reduction. INDICATION: Midabdominal pain. COMPARISON: Comparison is made with prior CT from 12/25/2016. FINDINGS: The lung bases are clear. There is a moderate-sized hiatal hernia. No discrete liver mass is identified. Extrahepatic bile duct is prominent. Gallbladder is unremarkable. Pancreas and spleen are unremarkable. No adrenal mass is detected. Cyst in the upper pole of the right kidney appears fairly stable. There is no hydronephrosis. Aorta is nonaneurysmal. There are diffusely dilated and fluid-filled small bowel loops throughout the abdomen. There appears to be a moderate amount of small bowel stool present. Colon does not appear to be appreciably dilated. There are some normal-caliber bowel loops in the low pelvis, likely representing normal-caliber small bowel loops. There are some postsurgical changes in the region of the rectosigmoid junction. No free fluid is seen. No fluid collection is identified. There is no free air. Bladder is unremarkable. Prostate is unremarkable. IMPRESSION: 1. Significant fluid-filled distention of small bowel loops throughout the abdomen with potential transition in the low pelvis. Features are suggestive of a small bowel obstruction. No free air or abscess formation is identified. 2. Nonspecific extrahepatic biliary ductal dilatation. Dictated by: Dictated on workstation # [id number]
--- NOTE | 2019-10-03 16:25 | NUR ---
NG tube place by
--- NOTE | 2019-10-03 16:28 | Diagnostic Imaging Report ---
Indication: Abdominal pain Portable chest 4:19 PM There is an NG tube that enters the stomach. Heart size and pulmonary vascularity are normal. The is a hiatal hernia. Lungs are clear. There are no effusions or pneumothoraces. IMPRESSION: Hiatal hernia. No acute abnormality seen. Dictated by: Dictated on workstation # [id number]
--- NOTE | 2019-10-03 17:10 | NUR ---
Report received from MICHELLE Vizcarra in ED.
[2019-10-03 17:19] VITALS: BP 158/88
--- NOTE | 2019-10-03 17:28 | NUR ---
SOLITARIO CHEW admitted to room 420-1, with an admitting diagnosis of SBO, on 10/03/19 from ED via WHEELCHAIR, accompanied by ED STAFF.SOLITARIO CHEW introduced to surroundings, call light, bed controls, phone, TV, temperature control, lights, meal times, smoking policy, visitor policy, side rail policy, bathrooms and showers. Patient Rights given to patient in the handbook. SOLITARIO CHEW verbalizes understanding that [facility] is not responsible for the loss or damage to any personal effects or valuables that are kept in the patients posession during their hospitalization. SOLITARIO CHEW verbalizes understanding of Interdisciplinary Patient Education. Patient and/or family were informed about the Rapid Response Team and its purpose.
--- NOTE | 2019-10-03 17:56 | HISTORY AND PHYSICAL ---
DATE OF SERVICE: ATTENDING PRIMARY CARE PHYSICIAN: Dr. Zayra Carpenter. HISTORY OF PRESENT ILLNESS: The patient is a 74-year-old male known to us. We had initially seen him in 2017 for left lower quadrant abdominal pain. He had had a history of diverticulosis and diverticulitis, requiring sigmoid colon resection several years ago. He began to follow up with us 02/2017. We did a followup colonoscopy and was found to have chronic stage II external and internal hemorrhoids as well as a moderate descending colonic diverticulosis; however, no signs of diverticulitis. He was seen back in the office recently for change in bowel habits and has been struggling with constipation. He also did report noticing small amounts of red blood per rectum. On 09/20/2019, he underwent an EGD and colonoscopy. Findings included a reflux esophagitis stage II, distal esophageal stricture, recurrent hiatal hernia approximately 5 cm in size as well as gastroparesis. No distal obstructions identified. Colonoscopy showed chronic stage II external and internal hemorrhoids as well as mild descending colonic diverticulosis with no signs of diverticulitis and no polyps. He presented to the Emergency Department today with abdominal distention as well as mild nausea. Radiographic films did show dilated loops of small bowel consistent with a partial small-bowel obstruction. PAST MEDICAL HISTORY: Diverticulosis and diverticulitis, gastroesophageal reflux disease, hiatal hernia, hypertension, hypercholesterolemia, rheumatoid arthritis, anxiety, depression, PTSD. PAST SURGICAL HISTORY: Sigmoid colon resection, hiatal hernia repair, tonsillectomy. ALLERGIES: ALPRAZOLAM, SYMBICORT. MEDICATIONS: Amlodipine, atorvastatin, albuterol, hydrocodone, Ambien, omeprazole, Cymbalta, iron, Breo Ellipta, methotrexate, baclofen, folic acid, alendronate, ProAir, terazosin. SOCIAL HISTORY: Previous smoker, quit 1994. Social alcohol. FAMILY HISTORY: Mother, ovarian cancer. Father, hypertension. VITAL SIGNS: Stable. Current weight 167 pounds with height at 6 feet 1 inches with a body mass index of 22.1. REVIEW OF SYSTEMS: Well-nourished male in no acute distress. He is not experiencing any shortness of breath or difficulty breathing. No chest pain, palpitations, diaphoresis. Intermittent episodes of nausea, no vomiting with mild abdominal distention. Again, he has had some issues with constipation in the past several weeks. With small amounts of red blood per rectum; however, none recently. No fever, chills, no recent inadvertent weight loss. All other review of systems negative. PHYSICAL EXAMINATION: CHEST: Clear. Good breath sounds bilaterally. HEART: Regular, no murmurs. EXTREMITIES: No lower extremity edema, negative Homans sign. HEENT: No scleral icterus or cervical lymphadenopathy. ABDOMEN: Soft, slightly distended. There are no peritoneal signs. SKIN: Warm, dry. ASSESSMENT AND PLAN: A 74-year-old male with partial small-bowel obstruction based on radiographic examination. He has a nasogastric tube in and we will proceed with conservative management with IV fluids, bowel rest as well as frequent monitoring in hopes of allowing this partial obstruction to resolve on its own without surgery. Job ID: [id number] DocumentID: [id number] Dictated Date: 10/03/2019 17:29:53 Half Section Ironer Date: 10/03/2019 17:55:24 Dictated By: ROMAIN LOFTON MD
[2019-10-03] MEDS: NS IV 1000 ML 1,000 ML IV SCH (18:23)
[2019-10-03 20:00] VITALS: BP 134/71
[2019-10-03] MEDS: fentaNYL INJECTION 100 MCG/2 ML AMP IVP PRN (20:10)
[2019-10-03] MEDS: ONDANSETRON 4 MG/2 ML (SDV) Z0FRAN IVP PRN (20:10)
[2019-10-04] MEDS: fentaNYL INJECTION 100 MCG/2 ML AMP IVP PRN (00:34)
[2019-10-04 00:43] VITALS: BP 155/85
--- NOTE | 2019-10-04 01:40 | NUR ---
REPORT GIVEN TO MICHELLE SANTIAGO AT THIS TIME.
[2019-10-04 03:37] VITALS: BP 139/78
[2019-10-04] MEDS: NS IV 1000 ML 1,000 ML IV SCH (06:39)
[2019-10-04 07:08] LABS: BASOPHILS % (AUTO) 0 % (0-10); EOSINOPHILS % (AUTO) 0 % (0-10); HEMATOCRIT 39 % (40-54); HEMOGLOBIN 12.7 G/DL (13.3-17.7); LYMPHOCYTES # (AUTO) 0.8 X 10^3 (1.0-4.0); LYMPHOCYTES % (AUTO) 8 % (12-44); MEAN CORPUSCULAR HEMOGLOBIN 29 PG (25-34); MEAN CORPUSCULAR HGB CONC 32 G/DL (32-36); MEAN CORPUSCULAR VOLUME 90 FL (80-99); MEAN PLATELET VOLUME 9.6 FL (7.4-10.4); MONOCYTES # (AUTO) 0.8 X 10^3 (0.0-1.0); MONOCYTES % (AUTO) 8 % (0-12); NEUTROPHILS # (AUTO) 8.5 X 10^3 (1.8-7.8); NEUTROPHILS % (AUTO) 84 % (42-75); PLATELET COUNT 305 10^3/uL (130-400); RED CELL DISTRIBUTION WIDTH 15.1 % (10.0-14.5); WHITE BLOOD COUNT 10.1 10^3/uL (4.3-11.0)
[2019-10-04 07:29] LABS: ALBUMIN 4.1 GM/DL (3.2-4.5); CHLORIDE 106 MMOL/L (98-107); POTASSIUM 4.1 MMOL/L (3.6-5.0); SODIUM 143 MMOL/L (135-145)
[2019-10-04 07:30] LABS: CALCIUM 9.1 MG/DL (8.5-10.1)
[2019-10-04 07:31] LABS: GLUCOSE 135 MG/DL (70-105); TOTAL PROTEIN 7.1 GM/DL (6.4-8.2)
[2019-10-04 07:32] LABS: CARBON DIOXIDE 24 MMOL/L (21-32)
[2019-10-04 07:33] LABS: BILIRUBIN,TOTAL 0.4 MG/DL (0.1-1.0)
[2019-10-04 07:35] LABS: ALKALINE PHOSPHATASE 72 U/L (40-136); CREATININE SERUM 0.77 MG/DL (0.60-1.30); GFR ESTIMATED > 60
[2019-10-04 07:36] LABS: BUN/CREATININE RATIO 31
[2019-10-04 07:38] LABS: ALANINE AMINOTRANSFERASE 22 U/L (0-55)
[2019-10-04 08:00] VITALS: BP_SYST 121; BP_SYST 155; BP_DIAS 60; BP_DIAS 84
[2019-10-04 08:03] LABS: BAND NEUTROPHILS 2 %; EOSINOPHILS % (MANUAL) 2 %; LYMPHOCYTES % (MANUAL) 7 %; MONOCYTES % (MANUAL) 10 %; NEUTROPHILS % (MANUAL) 79 %
[2019-10-04] MEDS: ONDANSETRON 4 MG/2 ML (SDV) Z0FRAN IVP PRN (08:10)
--- NOTE | 2019-10-04 08:32 | Consultation ---
History of Present Illness History of Present Illness Patient Consulted On(fidel/time) 10/04/19 08:29 Date Seen by Provider: Oct 04, 2019 Time Seen by Provider: 08:45 Reason for Visit: PARTIAL SMALL BOWEL OBSTRUCTION History of Present Illness PT IS A 74 Y/O MALE WHO IS A PATIENT IN MY PRACTICE. HE PRESENTED TO THE EMERGENCY DEPARTMENT WITH SEVERE ABDOMINAL PAIN AND NAUSEA. HE WAS FOUND TO HAVE A PARTIAL SMALL BOWEL OBSTRUCTION ON IMAGING. DR. LOFTON ADMITTED THE PATIENT FOR CONSERVATIVE MANAGEMENT WITH SURGERY FINAL OPTION OF THE OBSTRUCTION DOES NOT CLEAR ON ITS OWN WITH NG AND BOWEL REST. Allergies and Home Medications Allergies Coded Allergies: budesonide (Verified Allergy, Severe, NUMB LIPS, 09/18/19) diphenhydramine (Verified Allergy, Severe, 09/18/19) formoterol (Verified Allergy, Severe, NUMB LIPS, 09/18/19) alprazolam (Verified Adverse Reaction, Intermediate, MENTAL MOOD CHANGE, 09/18/19) SIG OTHER SAID THE PATIENT GETS COMBATIVE,ANGRY AND VIOLENT. SHE STATES THAT HIS BEHAVIOR IS ODD AND UNLIKE HIM Home Medications Albuterol Sulfate 1 Puff Puff, 2 PUFF IH QID PRN for SHORTNESS OF BREATH, (Reported) 1 PUFF = 90 MCG Albuterol Sulfate 2.5 Mg/3 Ml Vial.neb, 2.5 MG IH Q4H PRN for SHORTNESS OF BREATH, (Reported) Alendronate Sodium 70 Mg Tablet, 70 MG PO WEEK, (Reported) Amlodipine Besylate/Benazepril 1 Each Capsule, 1 CAP PO DAILY, (Reported) Ascorbate Calcium 500 Mg Tablet, 500 MG PO DAILY, (Reported) Atorvastatin Calcium 20 Mg Tablet, 10 MG PO HS, (Reported) TAKES 1/2 OF A (20 MG) TABLET Baclofen 10 Mg Tablet, 10 MG PO DAILY, (Reported) Duloxetine HCl 60 Mg Capsule.dr, 60 MG PO DAILY, (Reported) Ferrous Sulfate 325 Mg Tablet.dr, 325 MG PO DAILY, (Reported) Fluticasone/Vilanterol 1 Each Blst.w.dev, 1 EACH IH DAILY, (Reported) Folic Acid 1 Mg Tablet, 1 MG PO DAILY, (Reported) Lidocaine 1 Each Adh..patch, 1 EACH TP Q12H PRN for Neuropathic pain, (Reported) 2 patches max for 12 hours, then 12 hours patch-free period. Methotrexate Sodium 2.5 Mg Tablet, 15 MG PO WEEK, (Reported) Metoclopramide HCl 5 Mg Tablet, 5 MG PO TID Prescribed by: JOSE DANIEL BLACK on 09/20/19 1356 Pantoprazole Sodium 40 Mg Tablet.dr, 40 MG PO DAILY Prescribed by: ROMAIN LOFTON on 09/20/19 1213 Terazosin HCl 2 Mg Capsule, 2 MG PO BID, (Reported) Zolpidem Tartrate 10 Mg Tablet, 10 MG PO HS, (Reported) Patient Home Medication List Home Medication List Reviewed: Yes Past Gznymll-Vmqwfi-Jstjog Hx Past Med/Social Hx: Reviewed Nursing Past Med/Soc Hx, Reviewed and Corrections made Patient Social History Alcohol Use: Occasionally Uses Number of Drinks Today: AA Alcohol Beverage of Choice: Beer Recreational Drug Use: No Smoking Status: Never a Smoker Type Used: Cigarettes Former Smoker, Quit: Apr 03, 1994 2nd Hand Smoke Exposure: No Recent Foreign Travel: No Contact w/Someone Who Travel: No Recent Infectious Disease Expo: No Recent Hopitalizations: No Physical Abuse: No Sexual Abuse: No Mistreated: No Fear: No Immunizations Up To Date Date of Pneumonia Vaccine: Mar 31, 2014 Seasonal Allergies Seasonal Allergies: Yes Past Medical History Surgeries: Yes Abdominal, Bowel Surgery, Orthopedic, Tonsillectomy Respiratory: Yes Asthma, COPD Currently Using CPAP: No Currently Using BIPAP: No Cardiac: No High Cholesterol, Hypertension Neurological: No Reproductive Disorders: No Sexually Transmitted Disease: No HIV/AIDS: No Genitourinary: No Benign Prostatic Hyperpl Gastrointestinal: Yes Colitis, Gastroesophageal Reflux Musculoskeletal: Yes Arthritis Endocrine: No HEENT: No Cataract Loss of Vision: Denies Hearing Impairment: Denies Cancer: No Psychosocial: No Anxiety, PTSD, Depression Integumentary: No Blood Disorders: No Adverse Reaction/Blood Tranf: No (N/A) Family Medical History Reviewed Nursing Family Hx Hypertension PSH: LIPOMAS REMOVED COLONOSCOPIES EGD'S HIATAL HERNIA REPAIR WITH INCISIONAL HERNIA REPAIR COLON RESECTION FOR DIVERTICULITIS Review of Systems Review of Systems General: No Chills; Fatigue; No Malaise HEENT: No Visual Changes, No Dysphasia, No Sore Throat Pulmonary: No Dyspnea, No Cough Cardiovascular: No: Chest Pain, Palpitations Gastrointestinal: Nausea, Abdominal Pain, Constipation; No: Diarrhea Genitourinary: No Dysuria, No Frequency Musculoskeletal: No: back pain Neurological: Weakness; No: Confusion Physical Exam Vital Signs Vital Signs - First Documented 10/03/19 10/03/19 13:55 14:02 Temp 35.6 Pulse 79 Resp 18 B/P (MAP) 129/70 (89) Pulse Ox 98 O2 Delivery Nasal Cannula O2 Flow Rate 2.00 Capillary Refill : Less Than 3 Seconds Height, Weight, BMI Height: 6'1.00" Weight: 170lbs. 0.0oz. 77.767397id; 22.57 BMI Method:Stated General Appearance: No Apparent Distress, WD/WN Eyes: Bilateral Eye Normal Inspection, Bilateral Eye PERRL, Bilateral Eye EOMI HEENT: PERRL/EOMI, Pharynx Normal Neck: Full Range of Motion, Normal Inspection, Non Tender, Supple Respiratory: Chest Non Tender, Lungs Clear, Normal Breath Sounds, No Accessory Muscle Use, No Respiratory Distress Cardiovascular: Regular Rate, Rhythm, No Edema, Normal Peripheral Pulses Gastrointestinal: Normal Bowel Sounds, Soft; No Tenderness Rectal: Deferred Back: Normal Inspection Extremity: Normal Capillary Refill, Normal Range of Motion, Non Tender, No Calf Tenderness, No Pedal Edema Neurologic/Psychiatric: Alert, Oriented x3, No Motor/Sensory Deficits, Normal Mood/Affect, block sawyer II-XII Norm as Tested Skin: Normal Color, Warm/Dry Lymphatic: No Adenopathy Assessment/Plan Assessment/Plan Admission Dx PARTIAL SMALL BOWEL OBSTRUCTION ABDOMINAL PAIN HYPERTENSION CHRONIC ESOPHAGEAL REFLUX HYPERLIPIDEMIA CHRONIC IMMUNOSUPPRESSION Admission Status: Inpatient Order (span 2 midnights) Reason for Inpatient Admission: INPAITIENT ADMISSION FOR FLUID SUPPORT, NG SUCTIONING AND MONITORING OF SYMPTOMS WITH SURGERY OPTION SHOULD IT BE NEEDED FOR SMALL BOWEL OBSTUCTION - ANTICIPATE 36 - 48 HOURS IN HOSPITAL Assessment and Plan PARTIAL SMALL BOWEL OBSTRUCTION ABDOMINAL PAIN HYPERTENSION CHRONIC ESOPHAGEAL REFLUX HYPERLIPIDEMIA CHRONIC IMMUNOSUPPRESSION PARTIAL SMALL BOWEL OBSTRUCTION WITH ABDOMINAL PAIN - DISCUSSED WITH DR. LOFTON - PT HAS IMPROVEMENT IN SYMPTOMS, NG SUCTION WITH SIGNIFICANT AMOUNT OF STOOL MATTER IN TUBING AND WALL CONTAINER, PT FEELING BETTER, HAS HAD BOWEL MOVEMENT. - DC NG TUBE - START CLEAR LIQUIDS - IF TOLERATING THE LIQUIDS WITHOUT RECURRENT PAIN OR DISTENTION, WILL CONSIDER DC TO HOME. HYPERTENSION - WILL RESUME HOME MEDICATION ON DISCHARGE ANTICIPATED LATER TODAY. CHRONIC ESOPHAGEAL REFLUX - RESUME HOME REGIMEN ON DISCHARGE HYPERLIPIDEMIA - RESUME STATIN ON DISCHARGE CHRONIC IMMUNOSUPPRESSION - PT ON METHOTREXATE - WILL RESUME ON DISCHARGE Clinical Quality Measures DVT/VTE Risk/Contraindication: Risk Factor Score Per Nursin RFS Level Per Nursing on Admit: 2=Moderate TITA LAINEZ MD Oct 04, 2019 08:32
[2019-10-04] MEDS ORDERED: PANTOPRAZOLE 40 MG (PROTONIX) VIAL IV SCH (09:00)
--- NOTE | 2019-10-04 09:05 | Discharge Inst-Simple/Standard ---
Discharge Inst-Standard Reconcile Patient Problems Problems Reviewed?: Yes Patient Instructions/Follow Up Plan of Care/Instructions/FU: beano with every meal 1 wk at [facility] Activity as Tolerated: Yes Discharge Diet: Other Diet (advance diet as tolerated) Return to The Hospital For: any concern for worsening abdominal pain, shortness of breath, nausea or other lifethreatening illness Planned Outpatient Orders/Ref. Pneu Vac Indicated: Yes Medication List: Active Scripts Active Reglan (Metoclopramide HCl) 5 Mg Tablet 5 Mg PO TID Protonix (Pantoprazole Sodium) 40 Mg Tablet.dr 40 Mg PO DAILY Reported Alendronate Sodium 70 Mg Tablet 70 Mg PO WEEK Folic Acid 1 Mg Tablet 1 Mg PO DAILY Baclofen 10 Mg Tablet 10 Mg PO DAILY Methotrexate (Methotrexate Sodium) 2.5 Mg Tablet 15 Mg PO WEEK Vitamin C (Ascorbate Calcium) 500 Mg Tablet 500 Mg PO DAILY Breo Ellipta 100-25 Mcg INH (Fluticasone/Vilanterol) 1 Each Blst.w.dev 1 Each IH DAILY Lidocaine 5% Patch (Lidocaine) 1 Each Adh..patch 1 Each TP Q12H PRN MDD 2 2 patches max for 12 hours, then 12 hours patch-free period. Ferrous Sulfate 325 Mg Tablet.dr 325 Mg PO DAILY Cymbalta (Duloxetine HCl) 60 Mg Capsule. 60 Mg PO DAILY Ambien (Zolpidem Tartrate) 10 Mg Tablet 10 Mg PO HS Albuterol Sulfate 2.5 Mg/3 Ml Vial.neb 2.5 Mg IH Q4H PRN Terazosin HCl 2 Mg Capsule 2 Mg PO BID Atorvastatin Calcium 20 Mg Tablet 10 Mg PO HS TAKES 1/2 OF A (20 MG) TABLET Proair Hfa (Albuterol Sulfate) 1 Puff Puff 2 Puff IH QID PRN 1 PUFF = 90 MCG Lotrel 5-10 mg Capsule (Amlodipine Besylate/Benazepril) 1 Each Capsule 1 Cap PO DAILY Lab results: Laboratory Tests Test 10/03/19 13:30 10/04/19 06:36 Range/Units White Blood Count 11.0 10.1 4.3-11.0 10^3/uL Red Blood Count 4.30 L 4.36 4.35-5.85 10^6/uL Hemoglobin 12.4 L 12.7 L 13.3-17.7 G/DL Hematocrit 39 L 39 L 40-54 % Mean Corpuscular Volume 91 90 80-99 FL Mean Corpuscular Hemoglobin 29 29 25-34 PG Mean Corpuscular Hemoglobin Concent 32 32 32-36 G/DL Red Cell Distribution Width 14.9 H 15.1 H 10.0-14.5 % Platelet Count 313 305 130-400 10^3/uL Mean Platelet Volume 9.5 9.6 7.4-10.4 FL Neutrophils (%) (Auto) 84 H 84 H 42-75 % Lymphocytes (%) (Auto) 9 L 8 L 12-44 % Monocytes (%) (Auto) 6 8 0-12 % Eosinophils (%) (Auto) 2 0 0-10 % Basophils (%) (Auto) 0 0 0-10 % Neutrophils # (Auto) 9.2 H 8.5 H 1.8-7.8 X 10^3 Lymphocytes # (Auto) 0.9 L 0.8 L 1.0-4.0 X 10^3 Monocytes # (Auto) 0.7 0.8 0.0-1.0 X 10^3 Eosinophils # (Auto) 0.2 0.0 0.0-0.3 10^3/uL Basophils # (Auto) 0.0 0.0 0.0-0.1 10^3/uL Sodium Level 143 143 135-145 MMOL/L Potassium Level 4.9 4.1 3.6-5.0 MMOL/L Chloride Level 105 106 98-107 MMOL/L Carbon Dioxide Level 26 24 21-32 MMOL/L Anion Gap 12 13 5-14 MMOL/L Blood Urea Nitrogen 25 H 24 H 7-18 MG/DL Creatinine 0.88 0.77 0.60-1.30 MG/DL Estimat Glomerular Filtration Rate > 60 > 60 BUN/Creatinine Ratio 28 31 Glucose Level 168 H 135 H 70-105 MG/DL Calcium Level 9.6 9.1 8.5-10.1 MG/DL Corrected Calcium 9.3 9.0 8.5-10.1 MG/DL Total Bilirubin 0.3 0.4 0.1-1.0 MG/DL Aspartate Amino Transf (AST/SGOT) 33 30 5-34 U/L Alanine Aminotransferase (ALT/SGPT) 22 22 0-55 U/L Alkaline Phosphatase 73 72 40-136 U/L Total Protein 7.7 7.1 6.4-8.2 GM/DL Albumin 4.4 4.1 3.2-4.5 GM/DL Lipase 30 8-78 U/L Neutrophils % (Manual) 79 % Lymphocytes % (Manual) 7 % Monocytes % (Manual) 10 % Eosinophils % (Manual) 2 % Band Neutrophils 2 % My orders: Orders - TITA LAINEZ MD Ambulate ,, (10/03/19 17:26) Sequential Compression Device Q4H (10/03/19 17:26) Dvt/Vte Risk - Notifiy Physici Q4H (10/03/19 17:26) Ng Tube Discontinue (10/04/19 08:59) Clear Liquid (10/04/19 Breakfast) TITA LAINEZ MD Oct 04, 2019 09:05
[2019-10-04 11:21] VITALS: BP 155/84
== END 2019-10-04 10:53 | disposition home or self-care (01) | DRG 390 ==
LOC: EDUNIT# 13:25 → ER 13:26 → 4TH 16:17
PROVIDERS: ADMIT Surgery; ATTEND Surgery
PROC: 0D9670Z Drainage of Stomach with Drainage Device, Via Natural or Artificial Opening (ICD-10-PCS; principal; 2019-10-03)
DX: K56.690 Other partial intestinal obstruction (principal); K57.90 Diverticulosis of intestine, part unspecified, without perforation or abscess without bleeding; K21.9 Gastro-esophageal reflux disease without esophagitis; M06.9 Rheumatoid arthritis, unspecified; I10 Essential (primary) hypertension; J44.9 Chronic obstructive pulmonary disease, unspecified; E78.00 Pure hypercholesterolemia, unspecified; N40.0 Benign prostatic hyperplasia without lower urinary tract symptoms; F41.9 Anxiety disorder, unspecified; F32.9 Major depressive disorder, single episode, unspecified; F43.10 Post-traumatic stress disorder, unspecified; M81.0 Age-related osteoporosis without current pathological fracture; M19.91 Primary osteoarthritis, unspecified site; Z90.49 Acquired absence of other specified parts of digestive tract; Z79.899 Other long term (current) drug therapy; Z87.891 Personal history of nicotine dependence
CPT/HCPCS: 36415; 71045; 74177; 80053; 83690; 85007; 85025; 85027; 96361; 96374; 96375

== ENCOUNTER 2019-10-05 22:28 | Inpatient (IN) | payer MEDICARE, OTHER ==
[~2019-10-05] VITALS: Ht 187 cm; Wt 81.1 kg
[2019-10-05] MEDS ORDERED: ONDANSETRON 4 MG/2 ML (SDV) Z0FRAN IVP ONE (22:45)
[2019-10-05] MEDS ORDERED: fentaNYL INJECTION 100 MCG/2 ML AMP IVP PRN (22:45)
[2019-10-05] MEDS ORDERED: METOCLOPRAMIDE INJ 10 MG/2 ML (REGLAN) IVP ONE (22:45)
[2019-10-05 22:49] LABS: BASOPHILS % (AUTO) 0 % (0-10); EOSINOPHILS % (AUTO) 0 % (0-10); HEMATOCRIT 43 % (40-54); HEMOGLOBIN 13.9 G/DL (13.3-17.7); LYMPHOCYTES # (AUTO) 0.9 X 10^3 (1.0-4.0); LYMPHOCYTES % (AUTO) 15 % (12-44); MEAN CORPUSCULAR HEMOGLOBIN 29 PG (25-34); MEAN CORPUSCULAR HGB CONC 33 G/DL (32-36); MEAN CORPUSCULAR VOLUME 88 FL (80-99); MEAN PLATELET VOLUME 9.7 FL (7.4-10.4); MONOCYTES # (AUTO) 1.1 X 10^3 (0.0-1.0); MONOCYTES % (AUTO) 20 % (0-12); NEUTROPHILS # (AUTO) 3.8 X 10^3 (1.8-7.8); NEUTROPHILS % (AUTO) 65 % (42-75); PLATELET COUNT 389 10^3/uL (130-400); RED CELL DISTRIBUTION WIDTH 14.9 % (10.0-14.5); WHITE BLOOD COUNT 5.8 10^3/uL (4.3-11.0)
--- NOTE | 2019-10-05 22:49 | ED Abdominal Pain ---
General Chief Complaint: Abdominal/GI Problems Stated Complaint: VOMITING Source of Information: Patient Exam Limitations: No Limitations History of Present Illness Date Seen by Provider: Oct 05, 2019 Time Seen by Provider: 22:47 Initial Comments Patient was just discharged yesterday following admission for one day for partial small bowel obstruction. He's had some nausea and vomiting starting this evening, he did have a bowel movement about 3 hours ago. Timing/Duration: 4-6 Hours Severity/Quality: Moderate Location: Generalized Abdomen Radiation: No Radiation Activities at Onset: None Allergies and Home Medications Allergies Coded Allergies: budesonide (Verified Allergy, Severe, NUMB LIPS, 09/18/19) diphenhydramine (Verified Allergy, Severe, 09/18/19) formoterol (Verified Allergy, Severe, NUMB LIPS, 09/18/19) alprazolam (Verified Adverse Reaction, Intermediate, MENTAL MOOD CHANGE, 09/18/19) SIG OTHER SAID THE PATIENT GETS COMBATIVE,ANGRY AND VIOLENT. SHE STATES THAT HIS BEHAVIOR IS ODD AND UNLIKE HIM Home Medications Albuterol Sulfate 1 Puff Puff, 2 PUFF IH QID PRN for SHORTNESS OF BREATH, (Reported) 1 PUFF = 90 MCG Albuterol Sulfate 2.5 Mg/3 Ml Vial.neb, 2.5 MG IH Q4H PRN for SHORTNESS OF BREATH, (Reported) Alendronate Sodium 70 Mg Tablet, 70 MG PO WEEK, (Reported) Amlodipine Besylate/Benazepril 1 Each Capsule, 1 CAP PO DAILY, (Reported) Ascorbate Calcium 500 Mg Tablet, 500 MG PO DAILY, (Reported) Atorvastatin Calcium 20 Mg Tablet, 10 MG PO HS, (Reported) TAKES 1/2 OF A (20 MG) TABLET Baclofen 10 Mg Tablet, 10 MG PO DAILY, (Reported) Duloxetine HCl 60 Mg Capsule.dr, 60 MG PO DAILY, (Reported) Ferrous Sulfate 325 Mg Tablet.dr, 325 MG PO DAILY, (Reported) Fluticasone/Vilanterol 1 Each Blst.w.dev, 1 EACH IH DAILY, (Reported) Folic Acid 1 Mg Tablet, 1 MG PO DAILY, (Reported) Lidocaine 1 Each Adh..patch, 1 EACH TP Q12H PRN for Neuropathic pain, (Reported) 2 patches max for 12 hours, then 12 hours patch-free period. Methotrexate Sodium 2.5 Mg Tablet, 15 MG PO WEEK, (Reported) Metoclopramide HCl 5 Mg Tablet, 5 MG PO TID Prescribed by: JOSE DANIEL BLACK on 09/20/19 1356 Pantoprazole Sodium 40 Mg Tablet.dr, 40 MG PO DAILY Prescribed by: ROMAIN LOFTON on 09/20/19 1213 Terazosin HCl 2 Mg Capsule, 2 MG PO BID, (Reported) Zolpidem Tartrate 10 Mg Tablet, 10 MG PO HS, (Reported) Patient Home Medication List Home Medication List Reviewed: Yes Review of Systems Review of Systems Constitutional: see HPI EENTM: No Symptoms Reported Respiratory: No Symptoms Reported Cardiovascular: See HPI Gastrointestinal: See HPI, Abdominal Pain, Nausea, Vomiting Genitourinary: No Symptoms Reported Musculoskeletal: no symptoms reported Skin: no symptoms reported Psychiatric/Neurological: No Symptoms Reported Past Uurhhke-Weifwu-Kbewca Hx Patient Social History Alcohol Use: Occasionally Uses Number of Drinks Today: AA Alcohol Beverage of Choice: Beer Recreational Drug Use: No Type Used: Cigarettes Former Smoker, Quit: Apr 03, 1994 2nd Hand Smoke Exposure: No Recent Foreign Travel: No Contact w/Someone Who Travel: No Recent Hopitalizations: No Physical Abuse: No Sexual Abuse: No Mistreated: No Fear: No Immunizations Up To Date Date of Pneumonia Vaccine: Mar 31, 2014 Seasonal Allergies Seasonal Allergies: Yes Past Medical History Surgeries: Yes Abdominal, Bowel Surgery, Orthopedic, Tonsillectomy Respiratory: Yes Asthma, COPD Currently Using CPAP: No Currently Using BIPAP: No Cardiac: No High Cholesterol, Hypertension Neurological: No Reproductive Disorders: No Sexually Transmitted Disease: No HIV/AIDS: No Genitourinary: No Benign Prostatic Hyperpl Gastrointestinal: Yes Colitis, Gastroesophageal Reflux Musculoskeletal: Yes Arthritis Endocrine: No HEENT: No Cataract Loss of Vision: Denies Hearing Impairment: Denies Cancer: No Psychosocial: No Anxiety, PTSD, Depression Integumentary: No Blood Disorders: No Adverse Reaction/Blood Tranf: No (N/A) Family Medical History Hypertension PSH: LIPOMAS REMOVED COLONOSCOPIES EGD'S HIATAL HERNIA REPAIR WITH INCISIONAL HERNIA REPAIR COLON RESECTION FOR DIVERTICULITIS Physical Exam Vital Signs Capillary Refill : Height/Weight/BMI Height: 6'1.00" Weight: 170lbs. 0.0oz. [id number]; 22.57 BMI Method:Stated General Appearance: WD/WN, no apparent distress HEENT: PERRL/EOMI, normal ENT inspection Respiratory: no respiratory distress, no accessory muscle use Gastrointestinal: normal bowel sounds, soft, other (abdomen is a little tender to palpation left side of the abdomen. Bowel sounds are present but hypoactive.) Extremities: normal range of motion, non-tender Neurologic/Psychiatric: alert, normal mood/affect, oriented x 3 Skin: normal color, warm/dry Progress/Results/Core Measures Results/Orders Lab Results Laboratory Tests Test 10/05/19 22:36 Range/Units My Orders Orders - CARISA HARDIN APRN Fentanyl Injection (Sublimaze Injection (10/05/19 22:45) Ondansetron Injection (Zofran Injectio (10/05/19 22:45) Metoclopramide Injection (Reglan Injecti (10/05/19 22:45) Cbc With Automated Diff (10/05/19 22:38) Comprehensive Metabolic Panel (10/05/19 22:38) Lipase (10/05/19 22:38) Ed Iv/Invasive Line Start (10/05/19 22:38) Abdomen, Flat & Upright/Decub (10/05/19 22:43) Departure Communication (Admissions) Time/Spoke to Admitting Phy: 22:49 Dr. LOFTON happened to be present in the emergency room at the time patient presentation he was able to evaluate him at the bedside upon presentation to ER. We'll admit observation status clear liquids pain and nausea medication, start Reglan. No nasogastric tube. Impression Primary Impression: Ileus Additional Impression: Nausea & vomiting Disposition: ADMITTED INPATIENT Condition: Stable Admissions Decision to Admit Reason: Admit from ER (General) Decision to Admit/Date: Oct 05, 2019 Time/Decision to Admit Time: 22:49 Departure-Patient Inst. Referrals: TITA LAINEZ MD (PCP) Primary Care Physician BRYANT CARRILLO (Family) Primary Care Physician CARISA HARDIN APRN Oct 05, 2019 22:49
[2019-10-05 23:01] LABS: ALBUMIN 4.5 GM/DL (3.2-4.5); POTASSIUM 3.8 MMOL/L (3.6-5.0)
[2019-10-05 23:02] LABS: CALCIUM 9.4 MG/DL (8.5-10.1)
[2019-10-05 23:03] LABS: TOTAL PROTEIN 8.2 GM/DL (6.4-8.2)
[2019-10-05 23:05] LABS: BILIRUBIN,TOTAL 0.7 MG/DL (0.1-1.0)
[2019-10-05 23:07] LABS: CREATININE SERUM 1.22 MG/DL (0.60-1.30)
[2019-10-05 23:31] LABS: BAND NEUTROPHILS 36 %; NEUTROPHILS % (MANUAL) 21 %
[2019-10-05 23:32] LABS: LYMPHOCYTES % (MANUAL) 21 %; MONOCYTES % (MANUAL) 22 %
[2019-10-05 23:33] LABS: RBC MORPH NORMAL
[2019-10-06] VITALS (7 sets, daily range): BP systolic 120–150; BP diastolic 73–90
--- NOTE | 2019-10-06 | NUR ---
SOLITARIO CHEW admitted to room 411-1, with an admitting diagnosis of n/v, ileus, on 10/06/19 from ed via , accompanied by staff.SOLITARIO CHEW introduced to surroundings, call light, bed controls, phone, TV, temperature control, lights, meal times, smoking policy, visitor policy, side rail policy, bathrooms and showers. Patient Rights given to patient in the handbook. SOLITARIO CHEW verbalizes understanding that [facility] is not responsible for the loss or damage to any personal effects or valuables that are kept in the patients possession during their hospitalization. SOLITARIO CHEW verbalizes understanding of Interdisciplinary Patient Education. Patient and/or family were informed about the Rapid Response Team and its purpose.
--- NOTE | 2019-10-06 00:05 | HISTORY AND PHYSICAL ---
DATE OF SERVICE: ATTENDING PRIMARY CARE PHYSICIAN: Dr. Zayra Carpenter. HISTORY OF PRESENT ILLNESS: The patient is a 74-year-old male known to us. We had initially seen him in 2017 for left lower quadrant abdominal pain. He has a history of diverticulosis and diverticulitis requiring sigmoid colon resection several years ago. He began follow up with us in 2017. We did a followup colonoscopy and was found to have chronic stage II external and internal hemorrhoids as well moderate descending colonic diverticulosis; however, no signs of diverticulitis. He was seen in the office for change in bowel habits and has been struggling with constipation. He also had noticed some small amounts of self-limited red blood per rectum. On 09/20/2019, he underwent an EGD and colonoscopy and was found to have a reflux esophagitis stage II, mild distal esophageal stricture, recurrent hiatal hernia 5 cm in size as well as gastroparesis. No distal obstructions identified. Colonoscopy showed chronic stage II external and internal hemorrhoids as well as a mild descending colonic diverticulosis. He was admitted on 10/03/2019 for abdominal distention as well as nausea and was found to have dilated loops of small bowel. He was admitted; however, the following day, he had significant bowel function and was started on a clear liquid diet and advanced without any difficulty. He returns today with similar symptoms of abdominal distention and discomfort as well as some mild nausea; however, no vomiting. We feel that this is most likely a manifestation of his gastroparesis and we will start him on IV fluids as well as Reglan. PAST MEDICAL HISTORY: Diverticulosis, diverticulitis, gastroparesis, gastroesophageal reflux disease, hiatal hernia, hypertension, hypercholesterolemia, rheumatoid arthritis, anxiety, depression, PTSD. PAST SURGICAL HISTORY: Sigmoid colon resection, hiatal hernia repair, tonsillectomy. ALLERGIES: ALPRAZOLAM, SYMBICORT. MEDICATIONS: Amlodipine, atorvastatin, albuterol, hydrocodone, Ambien, omeprazole, Cymbalta, iron, Breo Ellipta, methotrexate, baclofen, folic acid, alendronate, ProAir, terazosin. SOCIAL HISTORY: Previous smoker, quit 1994. Social alcohol. FAMILY HISTORY: Mother, ovarian cancer. Father, hypertension. VITAL SIGNS: Temperature 36.5, blood pressure 123/96, pulse 57, respirations 16, pulse ox 96% on room air. REVIEW OF SYSTEMS: Well-nourished male currently in no acute distress. He is not experiencing any shortness of breath or difficulty breathing. No chest pain, palpitations, diaphoresis. Nausea as well as dry heaving with mild abdominal distention. He states that he did have a bowel movement earlier today. No red blood per rectum, no dark tarry stools. No fever, chills, no recent inadvertent weight loss. All other review of systems negative. PHYSICAL EXAMINATION: CHEST: Clear. Good breath sounds bilaterally. HEART: Regular, no murmurs. EXTREMITIES: No lower extremity edema, negative Homans sign. HEENT: No scleral icterus. NECK: No cervical lymphadenopathy. ABDOMEN: Soft, slightly distended. No peritoneal signs. SKIN: Warm, dry. LABORATORY DATA: WBC 5.8, hematocrit 43, platelets 389. ASSESSMENT AND PLAN: A 74-year-old male with gastroparesis. We will admit him, start him on a prokinetic with Reglan and proceed with a clear liquid diet. Once he has adequate bowel function and resolution of the distention of his abdomen and proper transit of his gastrointestinal contents, we will try some form of prokinetic with possibly a continuation of Reglan versus erythromycin. Job ID: [id number] DocumentID: [id number] Dictated Date: 10/05/2019 23:02:30 Orthodontist Vice President Date: 10/06/2019 00:04:38 Dictated By: ROMAIN LOFTON MD [facility]
[2019-10-06] MEDS ORDERED: ONDANSETRON 4 MG/2 ML (SDV) Z0FRAN IV PRN (00:15)
[2019-10-06] MEDS: LACTATED RINGERS 1,000 ML IV SCH ×3 (00:42→18:13)
[2019-10-06] MEDS: fentaNYL INJECTION 100 MCG/2 ML AMP IV PRN ×2 (02:02→08:47)
--- NOTE | 2019-10-06 04:59 | NUR ---
pt vomited-150 ml-yellow emesis with small brown chunks-prn zofran given
[2019-10-06 05:43] LABS: BASOPHILS % (AUTO) 0 % (0-10); EOSINOPHILS % (AUTO) 0 % (0-10); HEMATOCRIT 42 % (40-54); HEMOGLOBIN 13.3 G/DL (13.3-17.7); LYMPHOCYTES # (AUTO) 0.7 X 10^3 (1.0-4.0); LYMPHOCYTES % (AUTO) 13 % (12-44); MEAN CORPUSCULAR HEMOGLOBIN 28 PG (25-34); MEAN CORPUSCULAR HGB CONC 32 G/DL (32-36); MEAN CORPUSCULAR VOLUME 88 FL (80-99); MEAN PLATELET VOLUME 10.1 FL (7.4-10.4); MONOCYTES # (AUTO) 1.3 X 10^3 (0.0-1.0); MONOCYTES % (AUTO) 24 % (0-12); NEUTROPHILS # (AUTO) 3.3 X 10^3 (1.8-7.8); NEUTROPHILS % (AUTO) 62 % (42-75); PLATELET COUNT 316 10^3/uL (130-400); WHITE BLOOD COUNT 5.3 10^3/uL (4.3-11.0)
[2019-10-06 06:09] LABS: ALBUMIN 4.3 GM/DL (3.2-4.5); POTASSIUM 3.7 MMOL/L (3.6-5.0)
[2019-10-06 06:10] LABS: CALCIUM 9.2 MG/DL (8.5-10.1)
[2019-10-06 06:12] LABS: TOTAL PROTEIN 7.6 GM/DL (6.4-8.2)
[2019-10-06 06:13] LABS: BILIRUBIN,TOTAL 0.6 MG/DL (0.1-1.0)
[2019-10-06 06:15] LABS: CREATININE SERUM 1.43 MG/DL (0.60-1.30)
--- NOTE | 2019-10-06 07:02 | Diagnostic Imaging Report ---
INDICATION: Small bowel obstruction. Time of exam: 11:23 PM There is moderate gaseous distention of small bowel loops throughout the abdomen with scattered air-fluid levels. There is a paucity of colonic gas. No definite free air is seen. No pathologic calcifications are seen. IMPRESSION: Small bowel distention with scattered air-fluid levels suggestive of small bowel obstruction. Pattern is similar to CT study from 10/03/2019. Dictated by: Dictated on workstation # [id number]
--- NOTE | 2019-10-06 08:00 | NUR ---
TRYING TO EAT CLEAR LIQUID BREAKFAST. STATES "EVERYTHING I EAT COMES BACK UP". EMESIS LIGHT BROWN WITH CHUNKS. ADMITS TO ABDOMEN BEING MILDLY DISTENDED AND HYPOACTIVE BS. ALTHOUGH DID EXPEL A SMALL BROWN, FORMED STOOL THIS AM. STATES NAUSEA IS CONSTANT.
--- NOTE | 2019-10-06 08:45 | NUR ---
MEDICATED WITH FENTANYL FOR CHRONIC BACK PAIN DUE TO ARTHRITIS.
[2019-10-06] MEDS ORDERED: METOCLOPRAMIDE INJ 10 MG/2 ML (REGLAN) IV SCH (09:00)
--- NOTE | 2019-10-06 10:00 | NUR ---
DR. LOFTON HERE TO SEE PATIENT. ANTIEMETICS ADJUSTED TO TRY TO HELP NAUSEA. INFORMED OF RISING BUN AND CR AND ORDER OBTAINED TO CONSULT DR. LAINEZ IN AM. MAY INCREASE DIET PATIENT TOLERATES.
[2019-10-06] MEDS ORDERED: CATHETER FLUSH 10 ML SYR IV PRN (10:15)
[2019-10-06] MEDS: METOCLOPRAMIDE INJ 10 MG/2 ML (REGLAN) IV SCH ×4 (10:24→20:19)
--- NOTE | 2019-10-06 10:38 | Progress Note ---
Subjective Date Seen by a Provider: Oct 06, 2019 Time Seen by a Provider: 09:40 Subjective/Events-last exam Patient seen with Dr. Anthony. Patient reports still having nausea and vomiting. Has tried clear liquids and unable to keep them down. No fevers/chills but does report some reflux. Mild abdominal pain. Patient reports passing some flatus and had 2 normal BMs yesterday. Objective Exam Vital Signs Date Time Temp Pulse Resp B/P (MAP) Pulse Ox O2 Delivery O2 Flow Rate FiO2 10/06/19 08:36 Room Air 10/06/19 07:44 36.4 89 20 120/77 (91) 97 Room Air 10/06/19 04:00 36.8 78 18 122/75 (91) 93 Room Air 10/06/19 00:22 Room Air 10/06/19 00:00 36.4 57 18 125/80 95 Room Air 10/06/19 00:00 36.4 57 18 125/80 (95) 95 Room Air 10/05/19 23:23 89 16 123/96 99 Room Air 10/05/19 22:42 36.5 57 16 123/96 (105) 96 I & O 10/06/19 07:00 Intake Total 100 ml Output Total 180 ml Balance -80 ml Capillary Refill : Less Than 3 SecondsLess Than 3 Seconds General Appearance: No Apparent Distress, WD/WN Neck: Normal Inspection, Non Tender, Supple Respiratory: Normal Breath Sounds, No Accessory Muscle Use, No Respiratory Distress Cardiovascular: Regular Rate, Rhythm, No Edema Gastrointestinal: normal bowel sounds, distended, tenderness (upper abdomen) Extremity: Normal Inspection, Normal Range of Motion Neurologic/Psychiatric: Alert, Oriented x3 Skin: Normal Color, Warm/Dry Results Lab Laboratory Tests 10/05/19 22:36: White Blood Count 5.8, Red Blood Count 4.83, Hemoglobin 13.9, Hematocrit 43, Mean Corpuscular Volume 88, Mean Corpuscular Hemoglobin 29, Mean Corpuscular Hemoglobin Concent 33, Red Cell Distribution Width 14.9H, Platelet Count 389, Mean Platelet Volume 9.7, Neutrophils (%) (Auto) 65, Lymphocytes (%) (Auto) 15, Monocytes (%) (Auto) 20H, Eosinophils (%) (Auto) 0, Basophils (%) (Auto) 0, Neutrophils # (Auto) 3.8, Lymphocytes # (Auto) 0.9L, Monocytes # (Auto) 1.1H, Eosinophils # (Auto) 0.0, Basophils # (Auto) 0.0, Neutrophils % (Manual) 21, Lymphocytes % (Manual) 21, Monocytes % (Manual) 22, Band Neutrophils 36, Blood Morphology Comment NORMAL, Sodium Level 138, Potassium Level 3.8, Chloride Level 92L, Carbon Dioxide Level 27, Anion Gap 19H, Blood Urea Nitrogen 44H, Creatinine 1.22, Estimat Glomerular Filtration Rate 58, BUN/Creatinine Ratio 36, Glucose Level 148H, Calcium Level 9.4, Corrected Calcium 9.0, Total Bilirubin 0.7, A spartate Amino Transf (AST/SGOT) 33, Alanine Aminotransferase (ALT/SGPT) 20, Alkaline Phosphatase 69, Total Protein 8.2, Albumin 4.5, Lipase 354H 10/06/19 05:05: White Blood Count 5.3, Red Blood Count 4.71, Hemoglobin 13.3, Hematocrit 42, Mean Corpuscular Volume 88, Mean Corpuscular Hemoglobin 28, Mean Corpuscular Hemoglobin Concent 32, Red Cell Distribution Width 15.0H, Platelet Count 316, Mean Platelet Volume 10.1, Neutrophils (%) (Auto) 62, Lymphocytes (%) (Auto) 13, Monocytes (%) (Auto) 24H, Eosinophils (%) (Auto) 0, Basophils (%) (Auto) 0, Neutrophils # (Auto) 3.3, Lymphocytes # (Auto) 0.7L, Monocytes # (Auto) 1.3H, Eosinophils # (Auto) 0.0, Basophils # (Auto) 0.0, Sodium Level 138, Potassium Level 3.7, Chloride Level 93L, Carbon Dioxide Level 27, Anion Gap 18H, Blood Urea Nitrogen 52H, Creatinine 1.43H, Estimat Glomerular Filtration Rate 48, BUN/Creatinine Ratio 36, Glucose Level 131H, Calcium Level 9.2, Corrected Calcium 9.0, Total Bilirubin 0.6, Aspartate Amino Transf (AST/SGOT) 30, Alanine Aminotransferase (ALT/SGPT) 18, Alkaline Phosphatase 65, Total Protein 7.6, Albumin 4.3 Assessment/Plan Assessment/Plan Assess & Plan/Chief Complaint A 74 year old male with gastroparesis VSS WBC WNL Lipase was elevated at 354 Conserative management with IV fluids, pain, nausea meds PPI and reglan Clear liquid diet Encourage ambulation Clinical Quality Measures DVT/VTE Risk/Contraindication: Risk Factor Score Per Nursin RFS Level Per Nursing on Admit: 4+=Very High MIGUEL VELASQUEZ COATER HAND Oct 06, 2019 10:38
[2019-10-06] MEDS: ONDANSETRON 4 MG/2 ML (SDV) Z0FRAN IV PRN (11:06)
--- NOTE | 2019-10-06 12:45 | Consultation - Hospitalist ---
HPI History of Present Illness: HPI/Chief Complaint Zeke Oliveros is a 74-year-old male who was recently admitted for a partial small bowel obstruction who returned with nausea and vomiting. He has been passing flatus and having bowel movements. He denies any abdominal pain. He does report some distention. He did not eat much this morning and has been vomiting. He denies any fevers or chills. He denies any shortness of breath or cough. He denies any chest pain. He is a poor historian regarding his past medical history and his current medications. He says that his would be able to answer those questions. Source: patient Exam Limitations: no limitations Date Seen 10/06/19 Attending Physician Sharron Anthony MD PCP Zayra Carpenter MD Referring Physician Date of Admission Oct 05, 2019 at 22:44 Home Medications & Allergies Home Medications Reviewed patient Home Medication Reconciliation performed by pharmacy medication reconciliations factory maintenance technician and/or nursing. Patients Allergies have been reviewed. Allergies Allergies Coded Allergies budesonide (Verified Allergy, Severe, NUMB LIPS, 09/18/19) diphenhydramine (Verified Allergy, Severe, 09/18/19) formoterol (Verified Allergy, Severe, NUMB LIPS, 09/18/19) alprazolam (Verified Adverse Reaction, Intermediate, MENTAL MOOD CHANGE, 09/18/19) SIG OTHER SAID THE PATIENT GETS COMBATIVE,ANGRY AND VIOLENT. SHE STATES THAT HIS BEHAVIOR IS ODD AND UNLIKE HIM Past Cpmgria-Mmosal-Rtrdkj Hx Past Med/Social Hx: Reviewed Nursing Past Med/Soc Hx Patient Social History Alcohol Use: Occasionally Uses Number of Drinks Today: AA Alcohol Beverage of Choice: Beer Recreational Drug Use: No Former Smoker, Quit: Apr 03, 1994 Type Used: Cigarettes 2nd Hand Smoke Exposure: No Recent Foreign Travel: No Contact w/other who traveled: No Recent Hopitalizations: No Recent Infectious Disease Expo: No Immunizations Up To Date Date of Pneumonia Vaccine: Mar 31, 2014 Seasonal Allergies Seasonal Allergies: Yes Past Medical History Surgeries: Abdominal, Bowel Surgery, Orthopedic, Tonsillectomy Respiratory: COPD Currently Using CPAP: No Currently Using BIPAP: No Cardiac: High Cholesterol, Hypertension Reproductive: No Sexually Transmitted Disease: No HIV/AIDS: No Genitourinary: Benign Prostatic Hyperpl Gastrointestinal: Colitis, Gastroesophageal Reflux Musculoskeletal: Arthritis HEENT: Cataract Loss of Vision: Denies Hearing Impairment: Denies Psychosocial: Anxiety, PTSD, Depression History of Blood Disorders: No Adverse Reaction to Blood [place]: No (N/A) Family History Cardiovascular disease 19 FATHER 19 MOTHER Hypertension 19 FATHER 19 MOTHER Hypertension PSH: LIPOMAS REMOVED COLONOSCOPIES EGD'S HIATAL HERNIA REPAIR WITH INCISIONAL HERNIA REPAIR COLON RESECTION FOR DIVERTICULITIS Review of Systems Constitutional: no symptoms reported EENTM: no symptoms reported Respiratory: no symptoms reported Cardiovascular: no symptoms reported Gastrointestinal: nausea, vomiting Genitourinary: no symptoms reported Musculoskeletal: no symptoms reported Skin: no symptoms reported Psychiatric/Neurological: No Symptoms Reported Physical Exam Physical Exam Vital Signs Vital Signs - First Documented 10/05/19 10/05/19 22:42 23:23 Temp 36.5 Pulse 57 Resp 16 B/P (MAP) 123/96 (105) Pulse Ox 96 O2 Delivery Room Air Capillary Refill : Less Than 3 SecondsLess Than 3 Seconds Height, Weight, BMI Height: 6'1.00" Weight: 170lbs. 0.0oz. [id number]; 20.58 BMI Method:Stated General Appearance: No Apparent Distress, WD/WN HEENT: PERRL/EOMI, Pharynx Normal Neck: Normal Inspection, Supple Respiratory: Lungs Clear, Normal Breath Sounds, No Respiratory Distress Cardiovascular: Regular Rate, Rhythm, No Edema, No Murmur Gastrointestinal: Non Tender, Soft, Abnormal Bowel Sounds (hypoactive), Distended Extremity: Normal Inspection, Non Tender, No Pedal Edema Neurologic/Psychiatric: Alert, Oriented x3, No Motor/Sensory Deficits, Normal Mood/Affect Skin: Normal Color, Warm/Dry Results Results/Procedures Labs Laboratory Tests 10/05/19 22:36 10/06/19 05:05 Patient resulted labs reviewed. Imaging: Reviewed Imaging Report Assessment/Plan Assessment and Plan Assess & Plan/Chief Complaint Gastroparesis Partial small bowel obstruction Possible pancreatitis Acute kidney injury on chronic kidney disease Gen. surgery primary XR showed air-fluid levels consistent with small bowel obstruction lipase elevated at 354 CT abdomen 2 days prior with normal-appearing pancreas, lipase normal at that time BUN and creatinine trending upward, 55 and 1.43 Currently receiving clear liquids Started on IV Reglan for gastroparesis pain regimen ordered antiemetics ordered increase IV fluids add on repeat lipase DVT prophylaxis: Heparin Diagnosis/Problems Diagnosis/Problems (1) Nausea & vomiting Status: Acute (2) Gastroparesis Status: Acute (3) Elevated lipase Status: Acute (4) AFSHAN (acute kidney injury) Status: Acute (5) SBO (small bowel obstruction) Status: Acute Clinical Quality Measures DVT/VTE Risk/Contraindication: Risk Factor Score Per Nursin RFS Level Per Nursing on Admit: 4+=Very High JENNIFER NEVILLE MD Oct 06, 2019 12:45
[2019-10-06] MEDS: PROMETHAZINE INJ 25 MG/ML (PHENERGAN) AMP IVP PRN ×2 (13:56→20:19)
--- NOTE | 2019-10-06 15:00 | NUR ---
VERY LITTLE IMPROVEMENT IN NAUSEA AFTER ADDING PHENERGAN, AND INCREASING REGLAN AND ZOFRAN. SMALL AMOUNTS OF EMESIS FREQUENTLY. AT BEDSIDE.
--- NOTE | 2019-10-06 18:00 | NUR ---
EMESIS HAS SLOWED DOWN THIS AFTERNOON, BUT STILL UNCOMFORTABLE.
[2019-10-07] MEDS: LACTATED RINGERS 1,000 ML IV SCH ×4 (01:00→20:32)
[2019-10-07 04:00] VITALS: BP 137/87
[2019-10-07] MEDS: fentaNYL INJECTION 100 MCG/2 ML AMP IV PRN (04:19)
--- NOTE | 2019-10-07 04:48 | NUR ---
PT IS INCREASINGLY CONFUSED THROUGHOUT THE NIGHT. THIS AM PT CUT IV TUBING THEN TIGHT EACH END IN A KNOT. PT STATES, "I WAS JUST HELPIN YALL OUT BY CUTTIN THAT LINE FOR YA." WHEN PT IS ASKED IF HE KNOWS WHERE HE IS, PT STATES, "AT MY HOME IN [place]." THIS RN ATTEMPTS TO REORIENT.
--- NOTE | 2019-10-07 04:52 | NUR ---
UPON ENTERING ROOM PT IS OBSERVED TO BE LEANING OUT OF BED. PT STATES, "I DROPPED MY PILLS." THIS RN TURNS ROOM LIGHTS ON. NO PILLS ARE FOUND. PT IS CONFUSED AT THIS TIME, BUT WILL NOT ADMIT TO HIS CONFUSION. WILL CONTINUE TO MONITOR.
[2019-10-07 05:45] LABS: BASOPHILS % (AUTO) 0 % (0-10); EOSINOPHILS % (AUTO) 0 % (0-10); HEMATOCRIT 38 % (40-54); HEMOGLOBIN 12.4 G/DL (13.3-17.7); LYMPHOCYTES % (AUTO) 13 % (12-44); MEAN CORPUSCULAR HEMOGLOBIN 29 PG (25-34); MEAN CORPUSCULAR HGB CONC 33 G/DL (32-36); MEAN CORPUSCULAR VOLUME 87 FL (80-99); MEAN PLATELET VOLUME 10.2 FL (7.4-10.4); MONOCYTES % (AUTO) 14 % (0-12); NEUTROPHILS # (AUTO) 5.5 X 10^3 (1.8-7.8); NEUTROPHILS % (AUTO) 74 % (42-75); PLATELET COUNT 364 10^3/uL (130-400); RED CELL DISTRIBUTION WIDTH 14.2 % (10.0-14.5); WHITE BLOOD COUNT 7.5 10^3/uL (4.3-11.0)
[2019-10-07 06:00] LABS: ALBUMIN 4.4 GM/DL (3.2-4.5); POTASSIUM 3.4 MMOL/L (3.6-5.0)
[2019-10-07 06:02] LABS: CALCIUM 9.2 MG/DL (8.5-10.1)
[2019-10-07 06:03] LABS: TOTAL PROTEIN 7.6 GM/DL (6.4-8.2)
[2019-10-07 06:04] LABS: BILIRUBIN,TOTAL 0.7 MG/DL (0.1-1.0)
[2019-10-07 06:06] LABS: CREATININE SERUM 2.36 MG/DL (0.60-1.30)
--- NOTE | 2019-10-07 07:24 | Progress Note ---
Subjective Subjective Date Seen by Provider: Oct 07, 2019 Time Seen by Provider: 07:33 Pt reports having nausea and vomiting through the night with a significant amount close to 2L of fluid in an emesis bin. He has not been able to keep down any fluids or clear liquid food. He does report having small bowel movements that he states are not as soft as normal. He denies any abdominal pain. He appears to have some confusion and memory issues reporting the timing and recent days events with his story of how he got in the hospital hard to follow. He is otherwise pleasant and no apparent distress. Nurse reports Pt cut his IV line with nail clippers and then tied the ends off this morning. Pt reported he was just trying to help when the nurse asked and when asked about it later by provider he denied/ did not recall the event. Review of Systems General: No Chills HEENT: No Head Aches, No Sore Throat Pulmonary: No Dyspnea, No Cough Cardiovascular: No: Chest Pain, Palpitations Gastrointestinal: Nausea, Vomiting; No: Abdominal Pain, Diarrhea, Constipation Genitourinary: No Dysuria; Other (DECREASED VOLUME) Musculoskeletal: back pain Neurological: No: Weakness, Numbness Objective Exam Vital Signs Vital Signs - First Documented 10/05/19 10/05/19 22:42 23:23 Temp 36.5 Pulse 57 Resp 16 B/P (MAP) 123/96 (105) Pulse Ox 96 O2 Delivery Room Air Capillary Refill : Less Than 3 SecondsLess Than 3 Seconds General Appearance: No Apparent Distress, WD/WN HEENT: PERRL/EOMI, Pharynx Normal Neck: Normal Inspection, Supple Respiratory: Lungs Clear, Normal Breath Sounds, No Respiratory Distress Cardiovascular: Regular Rate, Rhythm, No Edema, No Murmur Gastrointestinal: Non Tender, Soft, Abnormal Bowel Sounds (Decreased x4 quadrants), Distended (Mild ); No Tenderness Extremity: Normal Inspection, Non Tender, No Pedal Edema Neurologic/Psychiatric: Alert, Oriented x3, No Motor/Sensory Deficits, Normal M ood/Affect Skin: Normal Color, Warm/Dry Results Lab Laboratory Tests 10/07/19 05:23: White Blood Count 7.5, Red Blood Count 4.34L, Hemoglobin 12.4L, Hematocrit 38L, Mean Corpuscular Volume 87, Mean Corpuscular Hemoglobin 29, Mean Corpuscular Hemoglobin Concent 33, Red Cell Distribution Width 14.2, Platelet Count 364, Mean Platelet Volume 10.2, Neutrophils (%) (Auto) 74, Lymphocytes (%) (Auto) 13, Monocytes (%) (Auto) 14H, Eosinophils (%) (Auto) 0, Basophils (%) (Auto) 0, Neutrophils # (Auto) 5.5, Lymphocytes # (Auto) 1.0, Monocytes # (Auto) 1.0, Eosinophils # (Auto) 0.0, Basophils # (Auto) 0.0, Sodium Level 137, Potassium Level 3.4L, Chloride Level 83L, Carbon Dioxide Level 37H, Anion Gap 17H, Blood Urea Nitrogen 74H, Creatinine 2.36H, Estimat Glomerular Filtration Rate 27, BUN/Creatinine Ratio 31, Glucose Level 146H, Calcium Level 9.2, Corrected Calcium 8.9, Total Bilirubin 0.7, Aspartate Amino Transf (AST/SGOT) 36H, Alanine Aminotransferase (ALT/SGPT) 19, Alkaline Phosphatase 61, Total Protein 7.6, Albumin 4.4 Assessment/Plan Assessment/Plan Assessment and Plan PARTIAL SMALL BOWEL OBSTRUCTION -START NPO STATUS -CONTINUE ZOFRAN -CONSULT DR LOFTON -UPPER GI FOLLOW THROUGH TO EVALUATE FOR OBSTRUCTION - CT ABDOMEN ACUTE KIDNEY INJURY -IV FLUIDS MONITOR BUN/CR AND ELECTROLYTES GASTROPARESIS HIATAL HERNIA ELEVATED LIPASE -CONSIDER CT ABDOMEN TO CHECK FOR PANCREATITIS -POSSIBLY DUE TO PANCREATITIS, OR ESOPHAGITIS, OR RENAL INSUFFICIENCY -CONTINUE TO MONITOR Problems: (1) Nausea & vomiting (2) Gastroparesis (3) Elevated lipase (4) AFSHAN (acute kidney injury) (5) SBO (small bowel obstruction) Clinical Quality Measures DVT/VTE Risk/Contraindication: Risk Factor Score Per Nursin RFS Level Per Nursing on Admit: 4+=Very High Supervisory-Addendum Brief Verification & Attestation Participated in pt care: history, MDM, physical Personally performed: exam, history, MDM, supervision of care Care discussed with: Medical Student Procedures: n/a Results interpretation: Verified all documentation I PERSONALLY EVALUATED THE PATIENT WITH THE MEDICAL STUDENT AND AGREE WITH HIS DOCUMENTATION. THE PATIENT REPORTS THAT HE IS FEELING GOOD, HE DENIES ABDOMINAL PAIN, BUT HAS NOT HAD A BOWEL MOVEMENT AND STAFF NOTES THAT HE HAS HAD QUITE A BIT OF EMESIS. THE NURSES AIDE REPORTS THAT SHE EMPTIED 800ML, 600ML AND THEN 800ML OF EMESIS FROM HIS BEDSIDE BASIN. PHYSICAL EXAM: THIN MALE, WELL DEVELOPED MALE II/ CRISTIANA - CHRONIC LUNGS CLEAR TO AUSCULTATION NO BOWEL SOUNDS - SMALL BOWEL OBSTRUCTION - DISCUSSED WITH DR. LOFTON - WE WILL ORDER A UPPER GI WITH SMALL BOWEL FOLLOW THROUGH IMAGING. HOLD ORAL MEDS NPO EXCEPT ICE CHIPS ONLY. NILSA AGUIRRE STUDJORGE L Oct 07, 2019 07:24 TITA LAINEZ MD Oct 08, 2019 08:51
[2019-10-07 07:54] VITALS: BP 131/92
--- NOTE | 2019-10-07 08:37 | NUR ---
RENAL DOSED METOCLOPRAMIDE TO 5MG IV QID DUE TO INCREASE IN SCR TO 2.36 (ESTIMATED CRCL LESS THAN 50ML/MIN)
[2019-10-07] MEDS: METOCLOPRAMIDE INJ 10 MG/2 ML (REGLAN) IV SCH ×4 (09:09→20:31)
[2019-10-07] MEDS: PANTOPRAZOLE 40 MG (PROTONIX) VIAL IV SCH (09:10)
[2019-10-07] MEDS: ONDANSETRON 4 MG/2 ML (SDV) Z0FRAN IV PRN ×3 (09:10→17:54)
[2019-10-07] MEDS ORDERED: DIATRIZOATE MEGLUM/SODIUM 37% 120 ML (GASTROGRAFIN) PO ONE (10:15)
[2019-10-07] MEDS ORDERED: DULO30CA49 PO (10:58)
[2019-10-07] MEDS ORDERED: ZOLP5TAB7 PO (10:59)
[2019-10-07] MEDS ORDERED: DICL100G18 TP (11:00)
[2019-10-07] MEDS ORDERED: ACHYD1T PO (11:01)
--- NOTE | 2019-10-07 11:20 | NUR ---
Patient and did not know the name of the medications. Called [facility] pharmacy and had them fax over a recently filled list and called to check on a couple of medications.
[2019-10-07 12:00] VITALS: BP 123/85
--- NOTE | 2019-10-07 14:20 | NUR ---
Pastoral care visit.
--- NOTE | 2019-10-07 14:40 | Progress Note ---
Subjective Date Seen by a Provider: Oct 07, 2019 Time Seen by a Provider: 14:00 Subjective/Events-last exam doing ok. still having mild nausea. no significant BM for past 2 days. long standing hx constipation. Objective Exam Vital Signs Date Time Temp Pulse Resp B/P (MAP) Pulse Ox O2 Delivery O2 Flow Rate FiO2 10/07/19 12:00 36.8 64 20 123/85 (98) 93 Room Air 10/07/19 08:00 97 Room Air 10/07/19 07:54 36.7 108 20 131/92 (105) 97 Room Air 10/07/19 04:00 36.7 59 18 137/87 (104) 95 Room Air 10/06/19 23:43 37.2 73 18 150/85 (106) 94 Room Air 10/06/19 20:40 36.7 70 20 123/73 (90) 93 Room Air 10/06/19 20:18 Room Air 10/06/19 15:50 37.4 85 18 124/73 (90) 93 Room Air I & O 10/07/19 07:00 Intake Total 2510 ml Output Total 735 ml Balance 1775 ml Capillary Refill : Less Than 3 SecondsLess Than 3 Seconds General Appearance: No Apparent Distress HEENT: PERRL/EOMI Neck: Full Range of Motion Respiratory: Chest Non Tender, Lungs Clear, Normal Breath Sounds Cardiovascular: Regular Rate, Rhythm Gastrointestinal: soft, distended Extremity: Normal Capillary Refill Neurologic/Psychiatric: Alert, Oriented x3 Skin: Normal Color Lymphatic: No Adenopathy Results Lab Laboratory Tests 10/07/19 05:23: White Blood Count 7.5, Red Blood Count 4.34L, Hemoglobin 12.4L, Hematocrit 38L, Mean Corpuscular Volume 87, Mean Corpuscular Hemoglobin 29, Mean Corpuscular Hemoglobin Concent 33, Red Cell Distribution Width 14.2, Platelet Count 364, Mean Platelet Volume 10.2, Neutrophils (%) (Auto) 74, Lymphocytes (%) (Auto) 13, Monocytes (%) (Auto) 14H, Eosinophils (%) (Auto) 0, Basophils (%) (Auto) 0, Neutrophils # (Auto) 5.5, Lymphocytes # (Auto) 1.0, Monocytes # (Auto) 1.0, Eosinophils # (Auto) 0.0, Basophils # (Auto) 0.0, Sodium Level 137, Potassium Level 3.4L, Chloride Level 83L, Carbon Dioxide Level 37H, Anion Gap 17H, Blood Urea Nitrogen 74H, Creatinine 2.36H, Estimat Glomerular Filtration Rate 27, BUN/Creatinine Ratio 31, Glucose Level 146H, Calcium Level 9.2, Corrected Calcium 8.9, Total Bilirubin 0.7, Aspartate Amino Transf (AST/SGOT) 36H, Alanine Aminotransferase (ALT/SGPT) 19, Alkaline Phosphatase 61, Total Protein 7.6, Albumin 4.4, Lipase 566H Assessment/Plan Assessment/Plan Assess & Plan/Chief Complaint PSBO. await SBFT results. restart gladis. Clinical Quality Measures DVT/VTE Risk/Contraindication: Risk Factor Score Per Nursin RFS Level Per Nursing on Admit: 4+=Very High ROMAIN LOFTON MD Oct 07, 2019 14:40
[2019-10-07 15:16] VITALS: BP 120/76
[2019-10-07] MEDS: ZOLPIDEM 5 MG (AMBIEN) TAB PO SCH (20:32)
--- NOTE | 2019-10-07 21:01 | NUR ---
ROLLY NOTIFIED OF PT'S INCREASED IN FOUL SMELLING EMESIS. ORDERS TO INSERT NG TUBE GIVEN AT THIS TIME WELL ATIVAN 1MG IV Q6H PRN FOR ANXIETY. WILL STOP THE PHENERGAN D/T PT'S INCREASED CONFUSION.
[2019-10-07] MEDS ORDERED: LORazepam INJ 2 MG/ML (ATIVAN) VIAL IVP PRN (21:15)
[2019-10-07] MEDS ORDERED: FLUMAZENIL (ROMAZICON) 0.1 MG/ML 5 ML VIAL IV STA (23:23)
--- NOTE | 2019-10-07 23:42 | NUR ---
JORDYO NOTIFIED OF PT DECREASED LOC AND LOW O2 SATS OF 85% LIKELY DUE TO IV ATIVAN. PT O2 SATS INCREASED TO 94% WILL O2 SUPPORT VIA NASAL CANNULA. WILL CONTINUE TO MONITOR AT THIS TIME. PT HAS 1:1 CARE AT THIS TIME FOR MONITORING.
[2019-10-08] VITALS (25 sets, daily range): BP systolic 76–146; BP diastolic 46–99
--- NOTE | 2019-10-08 | NUR ---
ROLLY NOTIFIED THAT WE COULD NOT GIVE ORDERED MEDICATION FLUMAZENIL ON THIS FLOOR D/T TO RISKS OF SIDE AFFECTS. ROLLY ALSO NOTIFIED THAT PT IS MAINTAINING O2 SATS AT 94% ON 6L HF NASAL CANNULA AT THIS TIME. ROLLY ORDERS TO MONITOR PT AT THIS TIME. THIS RN WILL NOTIFY PROVIDER OF ANY FUTURE CHANGES IN 02 REQUIREMENTS.
--- NOTE | 2019-10-08 04:51 | NUR ---
JORDYO NOTIFIED OF PT 102.0 FEVER WELL PT O2 SAT FLUCTUATION THROUGHOUT THE NIGHT. ORDERS FOR TYLENOL SUPPOSITORY AND VAPOTHERM OBTAINED. JORDYO ALSO NOTIFIED OF PT'S 4800ML OF OUTPUT VIA NG TUBE. WILL CONTINUE TO MONITOR.
[2019-10-08] MEDS: LACTATED RINGERS 1,000 ML IV SCH ×4 (04:55→23:11)
--- NOTE | 2019-10-08 04:59 | NUR ---
CALL TO FATOU AT THIS TIME. FATOU UPDATED ON PT'S CONDITION AND INTERVENTIONS ORDERED BY ROLLY THROUGHOUT THE SHIFT INCLUDING: NG TUBE PLACEMENT, 5L OUTPUT VIA NG TUBE, DOSE OF ATIVAN GIVEN AT BEGINNING OF SHIFT, NEED FOR O2 SUPPORT VIA VAPOTHERM, AND NEW ONSET TEMP OF 102.0. FATOU INQUIRES IF ROLLY KNOWS ABOUT NG TUBE OUTPUT. THIS RN STATES, "YES, I HAVE NOTIFIED HIM OF THE 5L OUTPUT FROM THE NG TUBE, WELL THE 102.0 TEMP. I ALSO ASKED IF HE WANTED ME TO HOLD PT'S MORNING DOSE OF HEPARIN INCASE ANY SURGICAL INTERVENTIONS WERE NEEDED." FATOU GIVES NEW ORDERS TO INSERT SIU, BLOOD CULTURES X2, LACTIC ACID, START ZOSYN 4.5, AND HOLD AM DOSE OF HEPARIN.
[2019-10-08] MEDS ORDERED: ACETAMINOPHEN 650 MG SUPP (TYLENOL) PR PRN (05:00)
[2019-10-08 05:45] LABS: HEMOGLOBIN 11.6 G/DL (13.3-17.7); RED CELL DISTRIBUTION WIDTH 14.2 % (10.0-14.5); WHITE BLOOD COUNT 4.9 10^3/uL (4.3-11.0)
[2019-10-08] MEDS ORDERED: PIPERACILLIN/TAZO 4.5 GM/NS 100 ML IV ONE ×2 (05:45)
[2019-10-08] MEDS ORDERED: PIPERACILLIN/TAZO 4.5 GM VIAL (ZOSYN) IV ONE (05:48)
[2019-10-08 05:50] LABS: ALBUMIN 3.7 GM/DL (3.2-4.5); POTASSIUM 3.2 MMOL/L (3.6-5.0)
[2019-10-08 05:52] LABS: CALCIUM 8.3 MG/DL (8.5-10.1)
[2019-10-08 05:53] LABS: TOTAL PROTEIN 6.4 GM/DL (6.4-8.2)
[2019-10-08 05:55] LABS: BILIRUBIN,TOTAL 0.6 MG/DL (0.1-1.0)
[2019-10-08 05:56] LABS: CREATININE SERUM 1.37 MG/DL (0.60-1.30)
--- NOTE | 2019-10-08 06:06 | NUR ---
NOTIFIED ROLLY THAT PT'S NG OUTPUT HAS BECOME BLOOD TINGED AT THIS TIME AND THAT PT'S CONDITION HAS WORSENED THROUGHOUT THE SHIFT. PT'S BP IS CURRENTLY DOWN TO 105/68, HEART RATE AT 105, O2 SAT IS AT 95% ON VAPOTHERM AT THIS TIME. ROLLY STATES, "IT'S OK. JUST KEEP HIM ON PROTONICS." WILL NOTIFY FATOU.
--- NOTE | 2019-10-08 06:07 | NUR ---
FATOU NOTIFIED OF THE FOLLOWING: THIS RN NOTIFIED ROLLY THAT PT'S NG OUTPUT HAS BECOME BLOOD TINGED AT THIS TIME AND THAT PT'S CONDITION HAS WORSENED THROUGHOUT THE SHIFT. PT'S BP IS CURRENTLY DOWN TO 105/68, HEART RATE AT 105, O2 SAT IS AT 95% ON VAPOTHERM AT THIS TIME. ROLLY STATES, "IT'S OK. JUST KEEP HIM ON PROTONICS." FATOU STATES, "I WILL CALL ROLLY AND SPEAK TO HIM."
--- NOTE | 2019-10-08 06:10 | NUR ---
FATOU CALLED THIS RN. ORDERS FOR 500ML BOLUS OF NS AND FOR LAB TO TYPE AND CROSS PT. FATOU ALSO STATES THAT [facility] WILL TAKE PT TO SURGERY THIS MORNING.
[2019-10-08] MEDS ORDERED: NS IV 1000 ML 1,000 ML ONE (06:11)
[2019-10-08] MEDS ORDERED: NS (IVPB) 500 ML IV ONE (06:15)
[2019-10-08] MEDS ORDERED: NS IV 500 ML 500 ML IV SCH ×3 (06:15→23:00)
--- NOTE | 2019-10-08 06:25 | NUR ---
LAB AT BEDSIDE.
--- NOTE | 2019-10-08 07:27 | Progress Note ---
Subjective Subjective Date Seen by Provider: Oct 08, 2019 Time Seen by Provider: 07:00 Nursing staff reported that overnight the patient was given Ambien and Ativan to help with sleep and started to have decreased O2 stats and BP. The patient was started on Vapotherm and IV fluids started. Pt had a large emesis and had an NG tube placed that has produced 5.6L of fluid since placement. The last liter of NG fluids was blood tinged. Pt is lethargic, but does respond to some questions if aroused. Confusion is still present upon arousal. Pt started to run a fever this morning up to 102 and was started on a Tylenol suppository. Pt appears in mild discomfort without significant pain. Review of Systems ROS Unable to Obtain: Pt lethargic, confused and unable to answer ROS Objective Exam Vital Signs Vital Signs - First Documented 10/05/19 10/05/19 10/08/19 10/08/19 22:42 23:23 00:09 03:52 Temp 36.5 Pulse 57 Resp 16 B/P (MAP) 123/96 (105) Pulse Ox 96 O2 Delivery Room Air O2 Flow Rate 4.00 FiO2 50 Capillary Refill : Less Than 3 SecondsLess Than 3 Seconds General Appearance: Mild Distress HEENT: PERRL/EOMI Neck: Full Range of Motion, Supple Respiratory: Chest Non Tender, Lungs Clear, Normal Breath Sounds, Other (Vapotherm in place) Cardiovascular: Regular Rate, Rhythm, Normal Peripheral Pulses Gastrointestinal: Non Tender, Soft, Abnormal Bowel Sounds (Absent x4 quadrants), Distended (Mild ), Other (NG tube) Genital/Rectal: Other (Garzon catheter) Extremity: Normal Capillary Refill, No Calf Tenderness, No Pedal Edema Neurologic/Psychiatric: No Alert (Lethargic, but can be aroused), No Oriented x3 (Confused) Skin: Normal Color, Warm/Dry Lymphatic: No Adenopathy Results Lab Laboratory Tests 10/08/19 05:20: White Blood Count 4.9, Red Blood Count 4.06L, Hemoglobin 11.6L, Hematocrit 36L, Mean Corpuscular Volume 87, Mean Corpuscular Hemoglobin 29, Mean Corpuscular He moglobin Concent 33, Red Cell Distribution Width 14.2, Platelet Count 313, Mean Platelet Volume 10.0, Sodium Level 138, Potassium Level 3.2L, Chloride Level 89L , Carbon Dioxide Level 33H, Anion Gap 16H, Blood Urea Nitrogen 68H, Creatinine 1.37H, Estimat Glomerular Filtration Rate 51, BUN/Creatinine Ratio 50, Glucose Level 118H, Lactic Acid Level 1.14, Calcium Level 8.3L, Corrected Calcium 8.5, Total Bilirubin 0.6, Aspartate Amino Transf (AST/SGOT) 33, Alanine Aminotra nsferase (ALT/SGPT) 17, Alkaline Phosphatase 61, Total Protein 6.4, Albumin 3.7, Lipase 85H Assessment/Plan Assessment/Plan Assessment and Plan SMALL BOWEL OBSTRUCTION -CONTINUE NPO STATUS, NG TUBE IN PLACE DRAINED 6L OF BOWEL COLORED FLUID WITH BLOOD TINGE -IV FLUIDS -CONSULT DR LOFTON -WILL TAKE TO SURGERY TODAY -UPPER GI FOLLOW THROUGH TO EVALUATE FOR OBSTRUCTION YESTERDAY -WAITING RADIOLOGY READ, APPEARS TO HAVE SBO WITH DISTENTION OF LARGE L OOPS OF SMALL BOWEL W/O PASSAGE OF CONTRAST SEPSIS -PT ON VAPOTHERM DUE TO SATS NEAR 85% IMPROVED TO 95-97%- WILL TRY TO WEAN -STARTED TYLENOL SUPPOSITORY DUE TO TEMP 38.2C -STARTED ZOSYN -CONTINUE IV FLUIDS -MONITOR PT VITALS MILD ANEMIA -MONITOR HGB/HCT -POSSIBLY DUE TO GI BLEED- WILL AWAIT SURGERY RESULTS -TYPE AND CROSS ORDERED ACUTE KIDNEY INJURY -IV FLUIDS MONITOR BUN/CR AND ELECTROLYTES -IMPROVING BUN AND CR ELEVATED LIPASE -IMPROVING TO 85 TODAY FROM 566 YESTERDAY -CONTINUE TO MONITOR GASTROPARESIS HIATAL HERNIA Problems: (1) Nausea & vomiting (2) Gastroparesis (3) Elevated lipase (4) AFSHAN (acute kidney injury) (5) SBO (small bowel obstruction) Clinical Quality Measures DVT/VTE Risk/Contraindication: Risk Factor Score Per Nursin RFS Level Per Nursing on Admit: 4+=Very High Supervisory-Addendum Brief Verification & Attestation Participated in pt care: history, MDM, physical Personally performed: exam, history, MDM Care discussed with: Medical Student Procedures: n/a Results interpretation: Verified all documentation I PERSONALLY EVALUATED THE PATIENT WITH THE MEDICAL STUDENT AND AGREE WITH HIS DOCUMENTATION. PHONE CALLS EARLY THIS MORNING FROM NIGHT NURSE - PATIENT WAS RESTLESS, NOT SLEEPING WELL, HE WAS GIVEN AMBIEN LAST NIGHT, THEN ATIVAN AND HE REPORTEDLY BEC GABRIELLE EXCESSIVELY SOMNOLENT, WAS STARTED ON VAPOTHERM AND HE STABILIZED. I HAD GIVEN ORDERS FOR THE PATIENT TO HAVE STAT LABS, BLOOD CULTURES, AND HE WAS STARTED ON ZOSYN. PHYSICAL EXAM: THIN MALE, WELL DEVELOPED MALE, ILL APPEARING II/ CRISTIANA - CHRONIC LUNGS CLEAR TO AUSCULTATION ON VAPOTHERM, POOR EFFORT NO BOWEL SOUNDS OBTUNDED - SMALL BOWEL OBSTRUCTION WORSENING SYMPTOMS WITH FECAL MATTER LIQUID FROM NG TUBE - OVER 5 LITERS WITH SOME REDDISH BROWN STOOL LIQUID IN NG TUBE. I HAVE AGAIN DISCUSSED WITH DR. LOFTON - AND HE WILL TAKE PATIENT TO SURGERY TODAY - LAPAROSCOPIC WITH POTENTIAL TRANSITION TO OPEN LAPAROTOMY. I HAVE DISCUSSED THE PATIENT'S TENUOUS STATUS WITH HIS AND SHE IS IN AGREEMENT TO PLANNED URGENT SURGICAL INTERVENTION. NILSA AGUIRRE MED STUD Oct 08, 2019 07:27 TITA LAINEZ MD Oct 08, 2019 08:59
--- NOTE | 2019-10-08 07:33 | Diagnostic Imaging Report ---
INDICATION: Tube placement. TECHNIQUE: Single view chest 11:29 PM. CORRELATION STUDY: 04/05/2019 FINDINGS: Esophagogastric tube traverses the diaphragm and extends off the field of view extending at least to the stomach. Stable cardiomediastinal silhouette. Lung estrella are clear. May be minimal left pleural effusion. IMPRESSION: 1. Esophagogastric tube extends off the field of view, likely terminating in the gastric body. A preliminary report was provided by [facility]. Dictated by: Dictated on workstation # [id number]
[2019-10-08] MEDS ORDERED: ONDANSETRON 4 MG/2 ML (SDV) Z0FRAN ONE (08:55)
[2019-10-08] MEDS ORDERED: proPOfol 200 MG/20 ML (DIPRIVAN) VIAL IV ONE (08:55)
[2019-10-08] MEDS ORDERED: SEVOFLURANE (ULTANE) 15 ML INHAL SOLN ONE ×2 (08:55→11:23)
[2019-10-08] MEDS ORDERED: SUCCINYLCHOLINE INJ 100 MG/5 ML SYR ONE (08:55)
[2019-10-08] MEDS ORDERED: fentaNYL INJECTION 100 MCG/2 ML AMP ONE (08:55)
[2019-10-08] MEDS ORDERED: DEXAMETHASONE 10 MG/ML (DECADRON) 1 ML VIAL ONE (08:55)
[2019-10-08] MEDS ORDERED: ROCURONIUM 10 MG/ML 5 ML SYRINGE IV ONE (08:55)
[2019-10-08] MEDS ORDERED: ROPIVACAINE 5MG/ML 30ML VIAL ONE (09:05)
[2019-10-08] MEDS: METOCLOPRAMIDE INJ 10 MG/2 ML (REGLAN) IV SCH ×4 (09:06→20:03)
[2019-10-08] MEDS ORDERED: HEParin (CENTRAL IV FLUSH) 500 UNIT/5 ML SYR ONE (09:06)
[2019-10-08] MEDS: PANTOPRAZOLE 40 MG (PROTONIX) VIAL IV SCH (09:06)
[2019-10-08] MEDS: POTASSIUM CL 10MEQ/50ML IVPB 50 ML IV SCH ×3 (09:07→16:49)
--- NOTE | 2019-10-08 10:32 | Progress Note-Pre Operative ---
Pre-Operative Progress Note H&P Reviewed The H&P was reviewed, patient examined and no changes noted. Date Seen by Provider: Oct 08, 2019 Time Seen by Provider: 10:00 Date H&P Reviewed: Oct 08, 2019 Time H&P Reviewed: 10:00 Pre-Operative Diagnosis: small bowel obstruction ROMAIN LOFTON MD Oct 08, 2019 10:32
[2019-10-08] MEDS: LACTATED RINGERS 1,000 ML IV PRN ×3 (10:36→13:11)
[2019-10-08] MEDS ORDERED: ceFAZolin INJECTION 1,000 MG VIAL IV ONE (10:45)
[2019-10-08] MEDS ORDERED: ceFAZolin INJECTION 1,000 MG ONE (10:46)
[2019-10-08] MEDS ORDERED: BUP/EPI 0.5% 1:200,000 (SENSORCAINE) 30 ML VIAL ONE (11:19)
[2019-10-08] MEDS ORDERED: HYDROmorphone 2 MG/ML VIAL (DILAUDID) ONE (11:41)
[2019-10-08] MEDS ORDERED: PHENYLEPHRINE INJ 10 MG/ML (FOR DRIP KITS ONLY) ONE ×2 (12:17→12:32)
[2019-10-08] MEDS ORDERED: PHENYLEPHRINE 100 MCG/ML 10 ML (ANESTHESIA) SYR ONE ×2 (12:18→12:20)
[2019-10-08] MEDS ORDERED: ALBUMIN 25% 25 GM/100 ML 100 ML IV ONE (12:20)
[2019-10-08] MEDS ORDERED: NEOSTIGMINE 3 MG/3 ML VIAL ONE (13:25)
[2019-10-08] MEDS ORDERED: GLYCOPYRROLATE 0.2 MG/ML (ROBINUL) 2 ML VIAL ONE (13:25)
[2019-10-08 13:28] LABS: HEMOGLOBIN 9.3 G/DL (13.3-17.7)
--- NOTE | 2019-10-08 13:40 | Progress Note-Post Operative ---
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 Procedure & Operative Findings Date of Procedure 10/08/19 Procedure Performed/Findings exploratory laparotomy, lysis of adhesions(120 minutes), small bowel resection and anastomosis, left subclavian central venous cath. Anesthesia Type get Estimated Blood Loss Estimated blood loss (mL): 750ml Specimens/Packing Specimens Removed small bowel(ileum) ROMAIN LOFTON MD Oct 08, 2019 13:40
--- NOTE | 2019-10-08 14:09 | Diagnostic Imaging Report ---
INDICATION: Small bowel obstruction symptoms. TECHNIQUE: The patient was administered 120 mL of Gastrografin contrast and 120 mL of water and serial radiographs of the abdomen were obtained. FINDINGS: The preliminary radiograph does show gaseous distention of small bowel loops. No definite free air is seen. Serial radiographs post contrast administration demonstrate some fairly significantly distended small bowel loops which are opacified with contrast. The stomach appears to be distended as well. There does appear to be a significant delay in the progression of contrast through the small bowel. A final radiograph obtained approximately 11 hours into the study shows a lack of contrast reaching the right colon. The right colon continues to be air-filled. IMPRESSION: Small bowel distention and significant delay in the progression of contrast through the small bowel to the right colon. Features are suggestive of a small bowel obstruction. Dictated by: Dictated on workstation # [id number]
[2019-10-08] MEDS ORDERED: HYDROmorphone 2 MG/ML VIAL (DILAUDID) IV ONE (14:15)
--- NOTE | 2019-10-08 14:26 | NUR ---
CALLED REPORT TO CARDBOARD CUTTERMICHELLE BOYD
--- NOTE | 2019-10-08 14:32 | Diagnostic Imaging Report ---
INDICATION: Heart catheterization. Correlation is made with prior study from one day earlier. ET tube has tip above the jef. Left-sided line has tip overlying the SVC. Lungs are clear. There is no pneumothorax. No effusion. There is free air present below the hemidiaphragms. Patient is status post abdominal surgery today. IMPRESSION: 1. Satisfactory location of lines and catheters. No pneumothorax is detected. Lungs are clear. 2. Pneumoperitoneum, patient is postop today. Dictated by: Dictated on workstation # [id number]
--- NOTE | 2019-10-08 14:50 | NUR ---
Pastoral care visit w/pts .
--- NOTE | 2019-10-08 15:18 | NUR ---
Patient arrived to room ICU10 via bed from Recovery. Patient is awake but drowsy, is now at bedside. [id number] called this nurse to get an update on patient, I notified that patients blood pressure is 84/55. Order received to give a 500ml bolus. 500ml bolus given from IVF that is running.
--- NOTE | 2019-10-08 15:18 | NUR ---
Report received from Yolie Yanez, at bedside.
[2019-10-08] MEDS: ONDANSETRON 4 MG/2 ML (SDV) Z0FRAN IVP PRN (15:27)
[2019-10-08] MEDS: PIPERACILLIN/TAZOBACTAM (BULK) 4.5 GM in NS (IVPB) 100 ML IV SCH ×2 (16:08→22:19)
[2019-10-08] MEDS: fentaNYL INJECTION 100 MCG/2 ML AMP IVP PRN ×2 (16:48→20:04)
--- NOTE | 2019-10-08 16:59 | NUR ---
This nurse notified about patients decreased b/p. order received to give patient a 500ml bolus. asked me to please update . [id number] this nurse called to update him about patients hypotension. Order received for Levophed drip.
[2019-10-08] MEDS ORDERED: NS IV 500 ML 500 ML ONE (17:01)
[2019-10-08] MEDS ORDERED: NS IV 500 ML 500 ML IV STA (17:01)
[2019-10-08] MEDS: NOREPINEPHRINE 4 MG/250 ML 250 ML IV SCH ×2 (17:24→21:52)
[2019-10-08 21:32] LABS: ABG BASE EXCESS -2.2 MMOL/L (-2.5-2.5); ABG OXYGEN SATURATION 98 % (94-100); ABG PCO2 26 MMHG (35-45); ABG PO2 113 MMHG (79-93); ABG TCO2 21.5 MMOL/L (21.0-31.0)
[2019-10-08 21:34] LABS: HEMOGLOBIN 8.1 G/DL (13.3-17.7)
[2019-10-08 21:37] LABS: ALLENS TEST POSITIVE; INSPIRED O2 5; VENTILATOR NO
[2019-10-08] MEDS: ZOLPIDEM 5 MG (AMBIEN) TAB PO SCH (21:51)
--- NOTE | 2019-10-08 22:50 | NUR ---
PT HAS HAD ONLY 20 ML OF UOP SINCE 7PM. PT ALSO CONTINUES TO BE HYPOTENSIVE AND TACHYCARDIC. THIS RN HAS ALSO HAD TO INCREASE LEVO FROM 0.2 MCG/KG/MIN TO 0.30 MCG/KG/MIN. OVER 200 ML OF OWEN RED BLOOD EMPTIED FROM ASHLEY DRAINS SINCE 7 PM. E-ICU NOTIFIED; DOCTOR TO ENTER ORDER FOR BLOOD AND INSTRUCTED THIS RN TO CONTACT SURGERY TO INFORM THEM. DR. LOFTON NOTIFIED OF PT'S CONDITION AND E-ICU'S NEW ORDER. NO NEW ORDERS RECEIVED FROM DR. LOFTON AT THIS TIME.
[2019-10-09] VITALS (31 sets, daily range): BP systolic 81–125; BP diastolic 55–85
--- NOTE | 2019-10-09 00:06 | OPERATIVE REPORT ---
DATE OF SERVICE: 10/08/2019 ATTENDING PRIMARY CARE PHYSICIAN: Zayra Carpenter MD PREOPERATIVE DIAGNOSIS: Small-bowel obstruction. POSTOPERATIVE DIAGNOSES: Acute on chronic small-bowel obstruction with a chronic edema, easily friable small bowel and chronic ischemic changes. Extensive small bowel adhesions. No recurrent lesions. PROCEDURE: Exploratory laparotomy, lysis of adhesions, small bowel resection and anastomosis, the lysis of adhesions took greater than 120 minutes. Placement of left subclavian central venous catheter. SURGEON: Sharron Anthony MD CHIP MACHINE OPERATOR: Blaine Coley APRN. ANESTHESIA: General endotracheal. ESTIMATED BLOOD LOSS: 750 mL. FINDINGS: Acute on chronic small-bowel obstruction with a chronic edema, easily friable small bowel and chronic ischemic changes. Extensive small bowel adhesions. No recurrent lesions. DISPOSITION: The patient tolerated the procedure well. INDICATIONS: The patient is a 74-year-old male known to us. We had initially seen him in 2017 for left lower quadrant abdominal pain. He has a history of diverticulosis and diverticulitis requiring a sigmoid colon resection several years ago. He began to follow up with us in 2017. He had a followup colonoscopy, found to have a stage II external and internal hemorrhoids as well as a moderate descending colonic diverticulosis; however, no signs of diverticulitis. He was seen in the office with change in bowel habits as well as struggling with constipation. On 09/20/2019, he underwent an EGD and colonoscopy and found to have a reflux esophagitis stage II, mild distal esophageal stricture, recurrent hiatal hernia 5 cm in size as well as what was thought to be a gastroparesis with retained food substance within the stomach. Colonoscopy showed chronic stage II external and internal hemorrhoids as well as mild descending colonic diverticulosis. He was admitted on 10/03/2019 for abdominal distention and nausea and found to have dilated loops of small bowel; however, he did have bowel function and was started on a clear liquid diet and advanced without any difficulty. He returned to the Emergency Department with recurrent abdominal distention, pain as well as nausea and vomiting. We will proceed with conservative management with bowel rest and IV fluids; however, he continued to have a significant amount of nausea and vomiting. We then proceeded with small bowel follow through, which did not go to the colon after 6 hours. Overnight, the patient also had significant abdominal distention and nausea and vomiting. DESCRIPTION OF PROCEDURE: The patient was brought to the operating room, laid supine on the table. After adequate IV pain and sedative medications and general endotracheal intubation, the abdomen was prepped and draped in standard surgical fashion. Before this, the chest and neck were prepped and draped in standard surgical fashion. The left subclavian vein was then cannulated with drawing of venous blood. A guidewire was then inserted without any resistance. The cannulating needle removed and a skin incision made using 11 blade. A tract was then created using a venous dilator and through this opening, a triple lumen central venous catheter was placed over the guidewire using the Seldinger technique and the guidewire removed. All three ports grace venous blood and saline pushed in without any resistance. The catheter was then sutured to the skin using 3-0 silk interrupted sutures. Catheter was then cleaned and covered with Op-Site. We then proceeded with our exploratory laparotomy and a skin incision along the previous midline laparotomy incision was made using a 10 blade. Subcutaneous tissue was then dissected down using electrocautery to the fascia. The fascia was then opened using electrocautery and peritoneum was then opened using Metzenbaum scissors. We then proceeded to open the fascia and peritoneum to the length of the skin incision under direct visualization using an electrocautery. A 4-quadrant abdominal exploration was then performed. There were extensive adhesions first with omental adhesions towards abdominal wall as well as small bowel. This was taken down and then we proceeded with running of the entirety of the small bowel. There were extensive adhesions more in the left upper abdominal quadrant. We then proceeded with meticulous lysis of adhesions to take down the entirety of the small bowel, which took approximately 120 minutes. What was noted was edematous bowel as well as easily friable small bowel, which likely indicated a chronic bowel obstruction as well as an acute on chronic bowel obstruction as well as ischemic changes associated with this. Once the entirety of the small bowel was examined and the adhesions lysed, the jejunum appeared to be viable and ileum appeared to be chronically inflamed, edematous and easily friable and poor perfusion and it was decided to proceed with excision of the ileum, which encompassed approximately two thirds of the small bowel; however, there was greater than 120 cm of the jejunum remaining. The colon was also intact. The ileum was then resected proximally and distally using a KOJO 55 mm blue load stapler. The mesentery was then cut and cauterized using a Sonicision. Shubham hemostasis was observed. We then proceeded with [id number] anastomosis of the proximal small bowel with the terminal ileum using a KOJO 55 mm blue stapler. The open end was then reapproximated using 3-0 silk interrupted sutures and this was then stapled with the same stapler. The mesentery was then reapproximated using a running 2-0 Vicryl suture. Good hemostasis was observed. We then proceeded with copious irrigation due to the contamination from the lysis using 6 liters of warm sterile saline and suctioned out until relatively clear. Two 19-Azeri Jonathan-Maier drains were then placed into the peritoneal cavity and sutured to the skin using 3-0 nylon sutures. The fascia was then closed using #1 Prolene looped suture starting superior and inferiorly and tied in the middle. The skin was then loosely approximated using skin bridgette. The wound was then cleaned and covered with sterile dressing. The patient tolerated the procedure well. We will start IV and oral pain medication as well as DVT prophylaxis with early ambulation, calf SCDs as well as Lovenox injections. Once he does have bowel function, we will remove the NG tube and start a clear liquid diet and advance as tolerated. Job ID: [id number] DocumentID: [id number] Dictated Date: 10/08/2019 13:57:46 Manager Maintenance Date: 10/09/2019 00:06:10 Dictated By: SHARRON ANTHONY MD [facility] CANCER CENTERAdilson
[2019-10-09] MEDS: fentaNYL INJECTION 100 MCG/2 ML AMP IVP PRN ×4 (00:16→12:20)
[2019-10-09] MEDS: NOREPINEPHRINE 4 MG/250 ML 250 ML IV SCH ×9 (00:29→23:50)
[2019-10-09 03:21] LABS: BASOPHILS % (AUTO) 0 % (0-10); EOSINOPHILS % (AUTO) 0 % (0-10); HEMATOCRIT 27 % (40-54); HEMOGLOBIN 8.7 G/DL (13.3-17.7); LYMPHOCYTES # (AUTO) 0.6 X 10^3 (1.0-4.0); LYMPHOCYTES % (AUTO) 3 % (12-44); MEAN CORPUSCULAR HEMOGLOBIN 29 PG (25-34); MEAN CORPUSCULAR HGB CONC 33 G/DL (32-36); MEAN CORPUSCULAR VOLUME 88 FL (80-99); MEAN PLATELET VOLUME 10.6 FL (7.4-10.4); MONOCYTES # (AUTO) 0.7 X 10^3 (0.0-1.0); MONOCYTES % (AUTO) 3 % (0-12); NEUTROPHILS # (AUTO) 20.1 X 10^3 (1.8-7.8); NEUTROPHILS % (AUTO) 93 % (42-75); PLATELET COUNT 254 10^3/uL (130-400); RED CELL DISTRIBUTION WIDTH 14.1 % (10.0-14.5); WHITE BLOOD COUNT 21.5 10^3/uL (4.3-11.0)
[2019-10-09 03:34] LABS: ALBUMIN 2.3 GM/DL (3.2-4.5); POTASSIUM 3.9 MMOL/L (3.6-5.0)
[2019-10-09 03:36] LABS: CALCIUM 6.8 MG/DL (8.5-10.1)
[2019-10-09 03:37] LABS: TOTAL PROTEIN 3.8 GM/DL (6.4-8.2)
[2019-10-09 03:39] LABS: BILIRUBIN,TOTAL 0.8 MG/DL (0.1-1.0)
[2019-10-09 03:40] LABS: PHOSPHORUS 4.4 MG/DL (2.3-4.7)
[2019-10-09 03:41] LABS: CREATININE SERUM 2.6 MG/DL (0.60-1.30)
[2019-10-09 03:43] LABS: MAGNESIUM 1.9 MG/DL (1.6-2.4)
[2019-10-09] MEDS ORDERED: LACTATED RINGERS 1,000 ML IV ONE (03:45)
[2019-10-09] MEDS: LACTATED RINGERS 1,000 ML IV SCH ×3 (05:55→20:00)
[2019-10-09] MEDS: PIPERACILLIN/TAZOBACTAM (BULK) 4.5 GM in NS (IVPB) 100 ML IV SCH ×3 (05:55→21:00)
--- NOTE | 2019-10-09 07:25 | Diagnostic Imaging Report ---
INDICATION: Follow-up. Status post bowel resection. COMPARISON: 10/08/2019 FINDINGS: Single frontal radiograph view the chest is obtained shows interval extubation. Indwelling gastric tube remains with tip in stomach. Left subclavian central venous catheter is also stable. Cardiac silhouette and pulmonary vasculature are within normal limits. Lungs show slight blunting of the lateral left costophrenic angle, which may be on the basis of small effusion. There is no large effusion on the right. No focal consolidation or pneumothorax is seen on either side. Note is again made of small amount of pneumoperitoneum under the right hemidiaphragm. IMPRESSION: 1. Perhaps trace left effusion. Otherwise, no acute cardiopulmonary process. 2. Interval extubation. 3. Redemonstration small amount of pneumoperitoneum under the right hemidiaphragm. Dictated by: Dictated on workstation # [id number]
--- NOTE | 2019-10-09 07:49 | Progress Note ---
Subjective Subjective Date Seen by Provider: Oct 09, 2019 Time Seen by Provider: 07:23 Pt awake and alert. He responds to questions with nods and soft voice. Appears to be less confused today. He denies any pain except minor abdominal pain along his incision. He has some mild nausea but no vomiting with an NG tube still in place. He has 2 ASHLEY drain that are draining allyson blood. He reports feeling better today. He has not had a bowel movement in several days. Review of Systems General: No Chills HEENT: No Head Aches, No Visual Changes Pulmonary: No Dyspnea, No Cough Cardiovascular: No: Chest Pain, Palpitations Gastrointestinal: Nausea (Mild), Constipation; No: Abdominal Pain, Diarrhea Genitourinary: No Dysuria Musculoskeletal: back pain; No: leg pain Neurological: No: Weakness, Numbness Objective Exam Vital Signs Vital Signs - First Documented 10/05/19 10/05/19 10/08/19 10/08/19 22:42 23:23 00:09 03:52 Temp 36.5 Pulse 57 Resp 16 B/P (MAP) 123/96 (105) Pulse Ox 96 O2 Delivery Room Air O2 Flow Rate 4.00 FiO2 50 Capillary Refill : Less Than 3 SecondsLess Than 3 Seconds General Appearance: No Apparent Distress HEENT: PERRL/EOMI Neck: Full Range of Motion, Supple Respiratory: Chest Non Tender, Lungs Clear, Normal Breath Sounds Cardiovascular: Regular Rate, Rhythm, Normal Peripheral Pulses Gastrointestinal: Non Tender, Soft, Abnormal Bowel Sounds (Decreased x4 quadrants), Other (NG tube, 2 ASHLEY drains) Genital/Rectal: Other (Garzon catheter) Extremity: Normal Capillary Refill, No Calf Tenderness, No Pedal Edema Neurologic/Psychiatric: Alert, Normal Mood/Affect Skin: Normal Color, Warm/Dry Lymphatic: No Adenopathy Results Lab Laboratory Tests 10/08/19 09:03: 10/08/19 13:19: Hemoglobin 9.3L, Hematocrit 30L 10/08/19 21:25: Hemoglobin 8.1L, Hematocrit 26L, Blood Gas Puncture Site RIGHT RADIAL, Blood Gas Patient Temperature 36.0, Arterial Blood pH 7.50H, Arterial Blood Partial Pressure CO2 26L, Arterial Blood Partial Pressure O2 113H, Arterial Blood HCO3 21L, Arterial Blood Total CO2 21.5, Arterial Blood Oxygen Saturation 98, Arterial Blood Base Excess -2.2, Tom Test POSITIVE, Blood Gas Ventilator Setting NO, Blood Gas Inspired Oxygen 5 10/09/19 03:00: Hemoglobin 8.7L, Hematocrit 27L, White Blood Count 21.5H, Red Blood Count 3.01L, Mean Corpuscular Volume 88, Mean Corpuscular Hemoglobin 29, Mean Corpuscular Hemoglobin Concent 33, Red Cell Distribution Width 14.1, Platelet Count 254, Mean Platelet Volume 10.6H, Neutrophils (%) (Auto) 93H, Lymphocytes (%) (Auto) 3L, Monocytes (%) (Auto) 3, Eosinophils (%) (Auto) 0, Basophils (%) (Auto) 0, Neutrophils # (Auto) 20.1H, Lymphocytes # (Auto) 0.6L, Monocytes # (Auto) 0.7, Eosinophils # (Auto) 0.0, Basophils # (Auto) 0.0, Sodium Level 140, Potassium Level 3.9, Chloride Level 102, Carbon Dioxide Level 23, Anion Gap 15H, Blood Urea Nitrogen 59H, Creatinine 2.60#H, Estimat Glomerular Filtration Rate 24, BUN/Creatinine Ratio 23, Glucose Level 121H, Calcium Level 6.8L, Corrected Calcium 8.2L, Phosphorus Level 4.4, Magnesium Level 1.9, Total Bilirubin 0.8, Aspartate Amino Transf (AST/SGOT) 413H, Alanine Aminotransferase (ALT/SGPT) 416H , Alkaline Phosphatase 34L, Total Protein 3.8L, Albumin 2.3L Assessment/Plan Assessment/Plan Assessment and Plan SMALL BOWEL OBSTRUCTION -NPO STATUS, NG TUBE IN PLACE DRAINING MINIMAL FLUID, -IV FLUIDS -CONSULT DR LOFTON -OPEN RESECTION PERFORMED YESTERDAY, -2 ASHLEY DRAINS PLACED- DRAINING BLOOD, MONITOR OUTPUT, CONSIDER ABDOMINAL U/S WITH PARACENTESIS, CT ABDOMEN WITH CONTRAST HYPOTENSION -CONTINUE IV FLUIDS -CONTINUE LEVOPHED -MONITOR SEPSIS -CONTINUE ZOSYN -CONTINUE IV FLUIDS -WBC INCREASED TO 21.5 TODAY FROM 4.9 YESTERDAY, CONTINUE TO MONITOR FOR S/S OF INFECTION ANEMIA -MONITOR HGB/HCT -1 UNIT LEUKOCYTE REDUCED RBC GIVEN HYPOCALCEMIA -START IV CALCIUM GLUCONATE -MONITOR ELEVATED LIVER ENZYMES -MONITOR ACUTE KIDNEY INJURY -IV FLUIDS MONITOR BUN/CR AND ELECTROLYTES ELEVATED LIPASE -IMPROVED GASTROPARESIS HIATAL HERNIA Problems: (1) Nausea & vomiting (2) Gastroparesis (3) Elevated lipase (4) AFSHAN (acute kidney injury) (5) SBO (small bowel obstruction) Clinical Quality Measures DVT/VTE Risk/Contraindication: Risk Factor Score Per Nursin RFS Level Per Nursing on Admit: 4+=Very High Supervisory-Addendum Brief Verification & Attestation Participated in pt care: history, MDM, physical Personally performed: exam, history, MDM Care discussed with: Medical Student Procedures: n/a Results interpretation: Verified all documentation I HAVE PERSONALLY EVALUATED AND EXAMINED THE PATIENT. MR. 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 HE DENIES PAIN, BUT THEN COMPLAINS OF DISCOMFORT WHEN HIS ABDOMEN IS PALPATED. HE HAS NOT HAD BOWEL MOVEMENT, EMESIS (NG TUBE IN PLACE) HAS BILIOUS DISCHARGE INTO NG TUBE WITH QUITE A BIT OF BLOOD FROM ASHLEY DRAINS - LEFT GREATER THAN RIGHT. STAFF DENIES CONCERNS OTHER THAN HIS CONFUSION. HGB HAS DROPPED, BUT IT IS NOT BELOW 8, WHITE COUNT INCREASED TO 21 - EXPECTED POST-OPERATIVELY, CONTINUE WITH ZOSYN. HYPOTENSION - CONTINUE WITH NOREPI FOR PRESSURE SUPPORT. FLUIDS IV TO CONTINUE. PT STILL TENUOUS. NILSA AGUIRRE MED STUDEN Oct 09, 2019 07:49 TITA LAINEZ MD Oct 10, 2019 09:24
--- NOTE | 2019-10-09 08:10 | Anesthesia-General Post-Op ---
General Patient Condition Mental Status/LOC: Same as Preop Cardiovascular: Satisfactory Nausea/Vomiting: Absent Respiratory: Satisfactory Pain: Controlled Complications: Absent Post Op Complications Complications None Follow Up Care/Instructions Patient Instructions None needed. Anesthesia/Patient Condition Patient Condition Patient is doing well, no complaints, stable vital signs, no apparent adverse anesthesia problems. No complications reported per nursing. KATELYN KOEHLER CRNA Oct 09, 2019 08:10
[2019-10-09] MEDS: PANTOPRAZOLE 40 MG (PROTONIX) VIAL IV SCH (09:29)
[2019-10-09] MEDS: METOCLOPRAMIDE INJ 10 MG/2 ML (REGLAN) IV SCH ×4 (09:29→21:00)
[2019-10-09] MEDS ORDERED: HALOPERIDOL 5 MG/ML (HALDOL) VIAL ONE (12:57)
--- NOTE | 2019-10-09 14:14 | Progress Note ---
Subjective Date Seen by a Provider: Oct 09, 2019 Time Seen by a Provider: 13:00 Subjective/Events-last exam confusion/ICU psychosis. mild hypotension. low u/o overnight however improving with fluids. pain controlled. Focused Exam Lactate Level 10/08/19 05:20: Lactic Acid Level 1.14 Objective Exam Vital Signs Date Time Temp Pulse Resp B/P (MAP) Pulse Ox O2 Delivery O2 Flow Rate FiO2 10/09/19 12:09 103 97/64 10/09/19 12:00 104 28 112/68 (83) Nasal Cannula 2.00 10/09/19 11:00 103 20 100/73 (82) Nasal Cannula 2.00 10/09/19 10:45 10/09/19 10:00 99 29 107/60 (76) Nasal Cannula 2.00 10/09/19 09:24 81/61 10/09/19 09:00 112 21 81/61 (68) Nasal Cannula 2.00 10/09/19 08:00 102 24 101/83 (89) 92 Nasal Cannula 2.00 10/09/19 07:35 95 Room Air 10/09/19 07:30 37.7 10/09/19 07:00 106 25 96/63 (74) Nasal Cannula 2.00 10/09/19 06:41 108 10/09/19 06:18 101 124/70 10/09/19 06:00 101 26 101/81 (88) Nasal Cannula 2.00 10/09/19 05:00 104 21 110/72 (85) 95 Nasal Cannula 2.00 10/09/19 04:00 101 25 124/70 (88) 95 Nasal Cannula 2.00 10/09/19 03:38 103 109/69 10/09/19 03:00 103 25 104/74 (84) 92 Nasal Cannula 2.00 10/09/19 02:21 37.1 103 24 109/69 96 Nasal Cannula 2.00 10/09/19 02:00 101 26 109/69 (82) 97 Nasal Cannula 2.00 10/09/19 01:00 106 10/09/19 01:00 103 29 112/75 (87) 99 Nasal Cannula 2.00 10/09/19 00:29 121 90/55 10/09/19 00:10 36.2 121 18 90/55 98 Nasal Cannula 2.00 10/09/19 00:00 121 31 110/85 (93) 100 Nasal Cannula 2.00 10/08/19 23:55 35.9 114 22 144/66 99 Nasal Cannula 2.00 10/08/19 23:42 37.2 10/08/19 23:00 121 31 110/85 (93) 100 Nasal Cannula 2.00 10/08/19 22:35 78/67 10/08/19 22:00 125 32 95/52 (66) 97 Nasal Cannula 2.00 10/08/19 21:52 120 87/50 10/08/19 21:00 131 30 114/99 (104) 99 Nasal Cannula 2.00 10/08/19 20:00 133 24 104/51 (68) 98 Nasal Cannula 2.00 10/08/19 19:51 87/50 10/08/19 19:00 129 18 102/58 (73) 97 Nasal Cannula 2.00 10/08/19 19:00 130 10/08/19 18:20 94 High Flow N/C 2.00 10/08/19 18:00 120 12 113/58 (76) 92 Vapotherm 40.00 50.00 10/08/19 17:24 108 73/45 10/08/19 17:00 110 22 76/46 (56) 95 Vapotherm 40.00 50.00 10/08/19 16:00 113 20 84/47 (59) 97 Vapotherm 40.00 50.00 10/08/19 15:30 104 26 80/61 (67) 95 Vapotherm 40.00 50.00 10/08/19 15:22 95 High Flow N/C 2.00 10/08/19 15:00 38 24 87/62 (70) 96 OxyMask 2 10/08/19 15:00 OxyMask 2 10/08/19 14:50 OxyMask 2 10/08/19 14:50 24 85/53 (64) 99 OxyMask 5 10/08/19 14:40 OxyMask 4 10/08/19 14:40 21 90/57 (68) 99 OxyMask 5 10/08/19 14:30 22 86/57 (67) 99 OxyMask 5 10/08/19 14:30 OxyMask 6 10/08/19 14:20 24 93/64 (74) 100 T Piece 10 10/08/19 14:20 OxyMask 8 10/08/19 14:10 22 96/59 (71) 100 T Piece 10 10/08/19 14:10 OxyMask 10 I & O 10/09/19 07:00 Intake Total 2500 ml Output Total 3425 ml Balance -925 ml Capillary Refill : Less Than 3 SecondsLess Than 3 Seconds General Appearance: No Apparent Distress HEENT: PERRL/EOMI Neck: Full Range of Motion Respiratory: Chest Non Tender, Normal Breath Sounds, Decreased Breath Sounds Cardiovascular: Regular Rate, Rhythm Gastrointestinal: soft, tenderness, other (incision clean/dry) Extremity: Normal Capillary Refill Neurologic/Psychiatric: Alert, Oriented x3 Skin: Normal Color Lymphatic: No Adenopathy Results Lab Laboratory Tests 10/08/19 21:25: Hemoglobin 8.1L, Hematocrit 26L, Blood Gas Puncture Site RIGHT RADIAL, Blood Gas Patient Temperature 36.0, Arterial Blood pH 7.50H, Arterial Blood Partial Pressure CO2 26L, Arterial Blood Partial Pressure O2 113H, Arterial Blood HCO3 21L, Arterial Blood Total CO2 21.5, Arterial Blood Oxygen Saturation 98, Arterial Blood Base Excess -2.2, Tom Test POSITIVE, Blood Gas Ventilator Setting NO, Blood Gas Inspired Oxygen 5 10/09/19 03:00: Hemoglobin 8.7L, Hematocrit 27L, White Blood Count 21.5H, Red Blood Count 3.01L, Mean Corpuscular Volume 88, Mean Corpuscular Hemoglobin 29, Mean Corpuscular Hemoglobin Concent 33, Red Cell Distribution Width 14.1, Platelet Count 254, Mean Platelet Volume 10.6H, Neutrophils (%) (Auto) 93H, Lymphocytes (%) (Auto) 3L, Monocytes (%) (Auto) 3, Eosinophils (%) (Auto) 0, Basophils (%) (Auto) 0, Neutrophils # (Auto) 20.1H, Lymphocytes # (Auto) 0.6L, Monocytes # (Auto) 0.7, Eosinophils # (Auto) 0.0, Basophils # (Auto) 0.0, Sodium Level 140, Potassium Level 3.9, Chloride Level 102, Carbon Dioxide Level 23, Anion Gap 15H, Blood Urea Nitrogen 59H, Creatinine 2.60#H, Estimat Glomerular Filtration Rate 24, BUN/Creatinine Ratio 23, Glucose Level 121H, Calcium Level 6.8L, Corrected Calcium 8.2L, Phosphorus Level 4.4, Magnesium Level 1.9, Total Bilirubin 0.8, Aspartate Amino Transf (AST/SGOT) 413H, Alanine Aminotransferase (ALT/SGPT) 416H , Alkaline Phosphatase 34L, Total Protein 3.8L, Albumin 2.3L Assessment/Plan Assessment/Plan Assess & Plan/Chief Complaint acute on chronic SBO with ischemic changes ileum s/p expl lap, MARIE and long segment SB resection. cont ICU care. renal failure. increase IV fluids. ICU psychosis. haldol 2mg. cont IV abx. start TPN. ambulate and await bowel fxn. Clinical Quality Measures DVT/VTE Risk/Contraindication: Risk Factor Score Per Nursin RFS Level Per Nursing on Admit: 4+=Very High ROMAIN LOFTON MD Oct 09, 2019 14:14
[2019-10-09] MEDS: HALOPERIDOL 5 MG/ML (HALDOL) VIAL IM PRN ×2 (14:33→18:31)
--- NOTE | 2019-10-09 14:48 | NUR ---
Received dietary consult for TPN. After chart review, would recommend using a formula that contains 1800 kcal (25 kcal/kg) and 86 g Pro (1.2 g Pro/kg). Will continue to follow and reassess as pt needs, intake, and status change. Flaco Dave MS, RD, LD [phone]
[2019-10-09] MEDS: ZOLPIDEM 5 MG (AMBIEN) TAB PO SCH (20:57)
[2019-10-10] VITALS (23 sets, daily range): BP systolic 97–127; BP diastolic 61–88
[2019-10-10] MEDS: LACTATED RINGERS 1,000 ML IV SCH ×3 (01:46→15:10)
[2019-10-10 02:40] LABS: BASOPHILS % (AUTO) 0 % (0-10); EOSINOPHILS % (AUTO) 0 % (0-10); HEMATOCRIT 22 % (40-54); HEMOGLOBIN 7.1 G/DL (13.3-17.7); LYMPHOCYTES # (AUTO) 0.6 X 10^3 (1.0-4.0); LYMPHOCYTES % (AUTO) 2 % (12-44); MEAN CORPUSCULAR HEMOGLOBIN 29 PG (25-34); MEAN CORPUSCULAR HGB CONC 33 G/DL (32-36); MEAN CORPUSCULAR VOLUME 87 FL (80-99); MEAN PLATELET VOLUME 9.8 FL (7.4-10.4); MONOCYTES # (AUTO) 0.9 X 10^3 (0.0-1.0); MONOCYTES % (AUTO) 3 % (0-12); NEUTROPHILS % (AUTO) 94 % (42-75); PLATELET COUNT 204 10^3/uL (130-400); RED CELL DISTRIBUTION WIDTH 14.3 % (10.0-14.5); WHITE BLOOD COUNT 25.5 10^3/uL (4.3-11.0)
[2019-10-10 02:49] LABS: INR 1.5 (0.8-1.4); PROTHROMBIN TIME PATIENT 18.9 SEC (12.2-14.7)
[2019-10-10 02:55] LABS: BAND NEUTROPHILS 19 %; NEUTROPHILS % (MANUAL) 73 %
[2019-10-10 02:56] LABS: LYMPHOCYTES % (MANUAL) 4 %; MONOCYTES % (MANUAL) 4 %
[2019-10-10 03:00] LABS: ALBUMIN 2.1 GM/DL (3.2-4.5); BILIRUBIN,TOTAL 0.5 MG/DL (0.1-1.0); CREATININE SERUM 1.87 MG/DL (0.60-1.30); MAGNESIUM 1.8 MG/DL (1.6-2.4); PHOSPHORUS 2.9 MG/DL (2.3-4.7); POTASSIUM 3.3 MMOL/L (3.6-5.0)
[2019-10-10] MEDS: NOREPINEPHRINE 4 MG/250 ML 250 ML IV SCH (03:37)
[2019-10-10] MEDS: PIPERACILLIN/TAZOBACTAM (BULK) 4.5 GM in NS (IVPB) 100 ML IV SCH ×3 (05:16→22:03)
[2019-10-10] MEDS: fentaNYL INJECTION 100 MCG/2 ML AMP IVP PRN ×4 (05:23→19:11)
--- NOTE | 2019-10-10 07:37 | NUR ---
TPN ORDERS LABS: SCR 1.87,k+ 3.3, NA 140, CL 104, PHOS 2.9, MG 1.8, RATE: 73ml/hr (1/2ns @ 50ml/hr) TPN ~1,500Kcal; PROTEIN ~ 100grams, TOTAL VOLUME 2,900ml/day monitor electrolytes and adjust/bolus daily.
--- NOTE | 2019-10-10 07:44 | Progress Note ---
Subjective Subjective Date Seen by Provider: Oct 10, 2019 Time Seen by Provider: 07:10 Pt resting but easily aroused. He responds to questions with nods and soft partially intelligible voice. He is confused not able to name where he his at and does not remember what has happened. He denies any pain except abdominal p ain along his incision, however upon palpation he was significantly tender along bilateral lower flanks. He has 2 ASHLEY drain that are draining allyson blood decreased in volume from yesterday. He still has no bowel movement, but is currently on TPN. He has been tachypneic with O2 saturation ranging from 90-95%. Review of Systems General: No Chills HEENT: No Head Aches, No Visual Changes Pulmonary: No Dyspnea, No Cough Cardiovascular: No: Chest Pain, Palpitations Gastrointestinal: Constipation; No: Vomiting, Abdominal Pain, Diarrhea Genitourinary: No Dysuria Musculoskeletal: back pain; No: leg pain Neurological: No: Weakness, Numbness Objective Exam Vital Signs Vital Signs - First Documented 10/05/19 10/05/19 10/08/19 10/08/19 22:42 23:23 00:09 03:52 Temp 36.5 Pulse 57 Resp 16 B/P (MAP) 123/96 (105) Pulse Ox 96 O2 Delivery Room Air O2 Flow Rate 4.00 FiO2 50 Capillary Refill : Less Than 3 SecondsLess Than 3 Seconds General Appearance: Mild Distress, Thin HEENT: PERRL/EOMI Neck: Full Range of Motion Respiratory: Chest Non Tender, Crackles (IN BASES), Decreased Breath Sounds Cardiovascular: Regular Rate, Rhythm, Normal Peripheral Pulses Gastrointestinal: Non Tender, Soft, Abnormal Bowel Sounds (Decreased x3 quadrants, improved in LLQ), Other (NG tube, 2 ASHLEY drains) Genital/Rectal: Other (Garzon catheter) Extremity: Normal Capillary Refill Neurologic/Psychiatric: Alert, Other (ORIENTED TO PERSON, NOT PLACE OR TIME, PT IRRITABLE, PARANOID, HITTING OUT AT THIS WRITE WHEN TRYING TO EXAMINE) Skin: Normal Color, Warm/Dry Lymphatic: No Adenopathy Results Lab Laboratory Tests 10/10/19 02:30: White Blood Count 25.5H, Red Blood Count 2.49L, Hemoglobin 7.1L, Hematocrit 22L, Mean Corpuscular Volume 87, Mean Corpuscular Hemoglobin 29, Mean Corpuscular Hemoglobin Concent 33, Red Cell Distribution Width 14.3, Platelet Count 204, Mean Platelet Volume 9.8, Neutrophils (%) (Auto) 94H, Lymphocytes (%) (Auto) 2L, Monocytes (%) (Auto) 3, Eosinophils (%) (Auto) 0, Basophils (%) (Auto) 0, Ne utrophils # (Auto) 24.0H, Lymphocytes # (Auto) 0.6L, Monocytes # (Auto) 0.9, Eosinophils # (Auto) 0.0, Basophils # (Auto) 0.0, Neutrophils % (Manual) 73, Lymphocytes % (Manual) 4, Monocytes % (Manual) 4, Band Neutrophils 19, Prothrombin Time 18.9H, INR Comment 1.5H, Sodium Level 140, Potassium Level 3.3L , Chloride Level 104, Carbon Dioxide Level 25, Anion Gap 11, Blood Urea Nitrogen 51H, Creatinine 1.87H, Estimat Glomerular Filtration Rate 35, BUN/Creatinine Ratio 27, Glucose Level 98, Calcium Level 7.0L, Corrected Calcium 8.5, Phosphorus Level 2.9, Magnesium Level 1.8, Total Bilirubin 0.5, Aspartate Amino Transf (AST/SGOT) 427H, Alanine Aminotransferase (ALT/SGPT) 481H, Alkaline Phosphatase 50, Total Protein 4.0L, Albumin 2.1L, Triglycerides Level 103 Microbiology 10/08/19 MRSA Screen - Final, Complete MRSA not isolated 10/08/19 Blood Culture - Preliminary, Resulted No growth Assessment/Plan Assessment/Plan Assessment and Plan SMALL BOWEL OBSTRUCTION -NPO STATUS, NG TUBE IN PLACE DRAINING MINIMAL FLUID, -CONSIDER REMOVAL OF NG AND STARTING CLEAR LIQUID DIET -IV FLUIDS -CONSULT DR LOFTON -OPEN RESECTION PERFORMED YESTERDAY, -2 ASHLEY DRAINS PLACED- DRAINING BLOOD, MONITOR OUTPUT- DECREASED VOLUME HYPOTENSION -CONTINUE IV FLUIDS -CONTINUE LEVOPHED -MONITOR SEPSIS -CONTINUE ZOSYN -CONTINUE IV FLUIDS -WBC INCREASED TO 25.5 TODAY FROM 25.5 YESTERDAY, CONTINUE TO MONITOR FOR S/S OF INFECTION ANEMIA -DECREASED HGB FROM 8.7 TO 7.1 -MONITOR HGB/HCT -START LEUKOCYTE REDUCED RBC TRANSFUSION -CONSIDER X-RAY ABDOMEN TO ASSES DRAIN PLACEMENT AND FOR FLUID HYPOCALCEMIA -CONTINUE TPN -MONITOR ELEVATED LIVER ENZYMES -MONITOR -CONSIDER CT ABDOMEN ACUTE KIDNEY INJURY -IV FLUIDS MONITOR BUN/CR AND ELECTROLYTES ELEVATED LIPASE -IMPROVED GASTROPARESIS HIATAL HERNIA Problems: (1) Nausea & vomiting (2) Gastroparesis (3) Elevated lipase (4) AFSHAN (acute kidney injury) (5) SBO (small bowel obstruction) Clinical Quality Measures DVT/VTE Risk/Contraindication: Risk Factor Score Per Nursin RFS Level Per Nursing on Admit: 4+=Very High Supervisory-Addendum Brief Verification & Attestation Participated in pt care: history, MDM, physical Personally performed: exam, history, MDM Care discussed with: Medical Student Procedures: n/a Results interpretation: Verified all documentation SMALL BOWEL OBSTRUCTION -CONTINUE NPO STATUS - STATUS POST OPEN EX-LAP WITH SMALL BOWEL RESECTION WITH PRIMARY ANASTOMOSIS - ASHLEY DRAINS WITH BRIGHT RED BLOOD - UNFORTUNATELY - THERE WAS NO INTAKE RECORDED YESTERDAY - QUESTIONABLE OUTPUT RECORDING WELL SINCE THE INTAKE IS INACCURATE/MISSING. NOT WEIGHT FOR 2 DAYS. -IV FLUIDS TO CONTINUE SEPSIS - CONTINUE TO MONITOR - WHITE COUNT ELEVATED FROM 21 TO 25 TODAY - WILL DISCUSS WITH DR. LOFTON - MAY NEED TO ADJUST MEDICATIONS FURTHER. POST-OP ANEMIA - HGB DROP FROM 8 TO 7.1 - WILL GIVE TWO UNITS PRBC'S TODAY. ACUTE KIDNEY INJURY -IMPROVED, BUT WITH PT ON PRESSURE SUPPORT WITH NOREPI - ANTICIPATE SLIGHT WORSENING IN RENAL FUNCTION UNTIL WE CAN GET HIM OFF OF THE PRESSURE SUPPORT. ELEVATED LFT'S - HAS BEEN ELEVATED DUE TO SHOCK -CONTINUE TO SUPPORT AND MONITOR FUNCTION. GASTROPARESIS - ON IV REGLAN HIATAL HERNIA NILSA AGUIRRE MED STUD Oct 10, 2019 07:44 TITA LAINEZ MD Oct 10, 2019 09:32
--- NOTE | 2019-10-10 07:52 | Diagnostic Imaging Report ---
EXAMINATION: Chest 1 view HISTORY: Follow-up. Postop bowel resection. COMPARISON: Chest radiograph on 10/09/2019. FINDINGS: Stable configuration of the enteric tube and left subclavian central line. Stable small amount of free air seen under the right hemidiaphragm. Increasing hazy opacities are seen in the left lung base. No large pleural effusion or pneumothorax. Stable cardiac silhouette. No acute osseous abnormalities. IMPRESSION: 1. Increasing hazy opacities in the left lung base, which may represent atelectasis or edema. 2. Stable small amount of free air under the right hemidiaphragm. These findings are consistent with recent bowel resection. 3. Stable support devices. Dictated by: Dictated on workstation # [id number]
[2019-10-10] MEDS ORDERED: NS IV 500 ML 500 ML IV SCH ×2 (08:34→08:45)
[2019-10-10] MEDS: PANTOPRAZOLE 40 MG (PROTONIX) VIAL IV SCH (08:37)
[2019-10-10] MEDS: METOCLOPRAMIDE INJ 10 MG/2 ML (REGLAN) IV SCH ×4 (08:38→20:54)
[2019-10-10] MEDS: POTASSIUM CL 10 MEQ/50 ML IVPB (PRE-MIX) IV SCH ×4 (08:43→11:09)
[2019-10-10] MEDS: MAGNESIUM 1 GM/D5W 100 ML IVPB IV SCH ×2 (08:43→09:45)
[2019-10-10] MEDS ORDERED: FUROSEMIDE 40 MG/4 ML INJ (LASIX) IVP ONE ×2 (08:45→09:15)
--- NOTE | 2019-10-10 09:38 | Diagnostic Imaging Report ---
INDICATION: Bowel resection Left decubitus image shows air over the liver. There are air-fluid levels in the gastrointestinal tract. There are skin bridgette from a vertical abdominal incision. IMPRESSION: Intraperitoneal free air related to surgery. Dictated by: Dictated on workstation # [id number]
[2019-10-10] MEDS: FLUCONAZOLE 200 MG/100 ML 50 ML, EMPTY IV BAG (PVC) 1 EA IV SCH ×2 (12:45)
--- NOTE | 2019-10-10 16:00 | NUR ---
DR. LOFTON IN ROOM AT THIS TIME WITH PATIENT. UNDRESSING WOUND, ASSESSING ET REPACKING/DRESSING. RECEIVED ORDERS TO D/C NG TUBE DUE TO 2 BOWEL MOVEMENTS TODAY. NG D/C'D AT THIS TIME WITH NO INCIDENT. DR. LOFTON GAVE VERBAL ORDER TO ADVANCE DIET TO CLEAR LIQUID AT THIS TIME. PT TO HAVE BAG OF TPN DUE AT 1730, CLARIFIED WITH DR. LOFTON IF HE WOULD LIKE TO CONTINUE WITH ADMINISTRATION OF TPN, RECEIVED ORDER TO ADMINISTERED BAG TONIGHT, THEN DISCONTINUE.
--- NOTE | 2019-10-10 16:04 | Progress Note ---
Subjective Date Seen by a Provider: Oct 10, 2019 Time Seen by a Provider: 15:30 Subjective/Events-last exam doing ok. still has confusion. WBC elevated. abscess identified lower pole of midline incision. opened up at bedside. having bowel movements. Focused Exam Lactate Level 10/08/19 05:20: Lactic Acid Level 1.14 Objective Exam Vital Signs Date Time Temp Pulse Resp B/P (MAP) Pulse Ox O2 Delivery O2 Flow Rate FiO2 10/10/19 15:00 37.2 98 27 118/72 92 Nasal Cannula 2.00 10/10/19 14:00 36.7 101 34 107/70 93 Room Air 10/10/19 13:53 94 Nasal Cannula 2.00 10/10/19 12:50 99 10/10/19 12:00 99 26 111/65 (80) 93 Room Air 10/10/19 11:27 37.7 96 26 107/67 94 10/10/19 11:16 37.7 10/10/19 11:13 37.7 102 19 108/61 93 Nasal Cannula 2.00 10/10/19 11:00 104 32 108/61 (77) 93 Room Air 10/10/19 10:00 101 26 103/63 (76) 91 Room Air 10/10/19 09:00 106 21 112/65 (81) 94 Room Air 10/10/19 08:00 105 27 97/68 (78) 93 Room Air 10/10/19 08:00 96 Room Air 10/10/19 07:19 37.8 10/10/19 07:00 106 23 105/68 (80) 91 Room Air 10/10/19 06:36 106 10/10/19 06:00 112 33 113/69 (84) 91 Room Air 10/10/19 05:00 107 24 107/74 (85) 92 Room Air 10/10/19 04:00 108 19 113/66 (82) 91 Room Air 10/10/19 04:00 95 Room Air 10/10/19 03:37 116 116/70 10/10/19 03:00 101 33 122/70 (87) 92 Room Air 10/10/19 02:00 106 33 119/67 (84) 92 Room Air 10/10/19 01:00 107 10/10/19 01:00 100 31 115/70 (85) 92 Room Air 10/10/19 00:00 95 Room Air 10/10/19 00:00 109 34 107/69 (82) 94 Room Air 10/09/19 23:50 37.3 10/09/19 23:50 122 129/77 10/09/19 23:00 98 31 119/63 (81) 94 Room Air 10/09/19 22:00 103 30 114/72 (86) 93 Room Air 10/09/19 21:56 98 24 116/72 (87) 91 Nasal Cannula 2.00 10/09/19 21:09 101 125/70 10/09/19 21:00 98 30 125/77 (93) 91 Room Air 10/09/19 20:57 109 18 121/68 (85) 94 Nasal Cannula 2.00 10/09/19 20:00 101 33 99/71 (80) 95 Room Air 10/09/19 20:00 95 Room Air 10/09/19 19:36 37.9 10/09/19 19:17 93 Room Air 10/09/19 19:00 95 24 117/68 (84) 92 Room Air 10/09/19 19:00 95 10/09/19 18:25 110 22 94/72 (79) 94 Nasal Cannula 2.00 10/09/19 18:20 94/72 10/09/19 18:00 116 8 107/59 (75) 92 Nasal Cannula 2.00 10/09/19 17:45 Nasal Cannula 10/09/19 17:33 97 16 100/66 (77) 95 Nasal Cannula 2.00 10/09/19 16:23 99 20 115/66 (82) 95 Nasal Cannula 2.00 I & O 10/10/19 07:00 Intake Total 0 ml Output Total 2270 ml Balance -2270 ml Capillary Refill : Less Than 3 SecondsLess Than 3 Seconds General Appearance: No Apparent Distress HEENT: PERRL/EOMI Neck: Full Range of Motion Respiratory: Chest Non Tender, Decreased Breath Sounds Cardiovascular: Regular Rate, Rhythm Gastrointestinal: soft, tenderness, other (drainage lower pole incision with abscess) Extremity: Normal Capillary Refill Neurologic/Psychiatric: Alert, Disoriented Skin: Normal Color Lymphatic: No Adenopathy Results Lab Laboratory Tests 10/10/19 02:30: White Blood Count 25.5H, Red Blood Count 2.49L, Hemoglobin 7.1L, Hematocrit 22L, Mean Corpuscular Volume 87, Mean Corpuscular Hemoglobin 29, Mean Corpuscular Hemoglobin Concent 33, Red Cell Distribution Width 14.3, Platelet Count 204, Mean Platelet Volume 9.8, Neutrophils (%) (Auto) 94H, Lymphocytes (%) (Auto) 2L, Monocytes (%) (Auto) 3, Eosinophils (%) (Auto) 0, Basophils (%) (Auto) 0, Neutrophils # (Auto) 24.0H, Lymphocytes # (Auto) 0.6L, Monocytes # (Auto) 0.9, Eosinophils # (Auto) 0.0, Basophils # (Auto) 0.0, Neutrophils % (Manual) 73, Lymphocytes % (Manual) 4, Monocytes % (Manual) 4, Band Neutrophils 19, Prothrombin Time 18.9H, INR Comment 1.5H, Sodium Level 140, Potassium Level 3.3L , Chloride Level 104, Carbon Dioxide Level 25, Anion Gap 11, Blood Urea Nitrogen 51H, Creatinine 1.87H, Estimat Glomerular Filtration Rate 35, BUN/Creatinine Ratio 27, Glucose Level 98, Calcium Level 7.0L, Corrected Calcium 8.5, Phosphorus Level 2.9, Magnesium Level 1.8, Total Bilirubin 0.5, Aspartate Amino Transf (AST/SGOT) 427H, Alanine Aminotransferase (ALT/SGPT) 481H, Alkaline Phosphatase 50, Total Protein 4.0L, Albumin 2.1L, Triglycerides Level 103 10/10/19 11:37: Lab Scanned Report Transfusion Reaction Form Microbiology 10/08/19 MRSA Screen - Final, Complete MRSA not isolated 10/08/19 Blood Culture - Preliminary, Resulted No growth Assessment/Plan Assessment/Plan Assess & Plan/Chief Complaint acute on chronic SBO with ischemic changes ileum s/p expl lap, MARIE and long segment SB resection. renal failure. increase IV fluids. improving ICU psychosis. haldol 2mg. cont IV abx. add antifungal. cont TPN for now. having bowel fxn. will remove ngt and start clear liquid diet. Clinical Quality Measures DVT/VTE Risk/Contraindication: Risk Factor Score Per Nursin RFS Level Per Nursing on Admit: 4+=Very High ROMAIN LOFTON MD Oct 10, 2019 16:04
--- NOTE | 2019-10-10 16:30 | NUR ---
DR. LOFTON GAVE ORDERS FOR PATIENT TO TRANSFER TO 4TH FLOOR MED/SURG STATUS. NOTIFIED DR. LAINEZ. DR. LAINEZ GAVE OK FOR PATIENT TO TRANSFER DOWN TO 4TH FLOOR.
[2019-10-10] MEDS ORDERED: SODIUM CHLORIDE IV SCH ×10 (17:00)
[2019-10-10] MEDS ORDERED: POTASSIUM CHLORIDE IV SCH ×10 (17:00)
[2019-10-10] MEDS ORDERED: [UNRECOGNIZED DRUG - OTHER] IV SCH ×10 (17:00)
--- NOTE | 2019-10-10 18:45 | NUR ---
TRANSFERRED FROM ICU TO ROOM 412 PER BED. ALERT TO SELF. FAMILY MEMBER AT BEDSIDE. LEFT TRIPLE LUMEN CHEST IV SITE CHEST WITH TPN INFUSING AT 73 CC/HR. LR INFUSING AT 150 CC/HR. LEFT AC SALINE LOCK IN PLACE. RIGHT AC SALINE LOCK IN PLACE. ABD. LOWER MIDLINE WITH FLORENTINO AND GAUZE IN PLACE. ASHLEY DRAIN TO RIGHT MIDDLE SIDE ABD. WITH SMALL AMT. BLOODY DRAINAGE. LEFT SIDE ASHLEY DRAIN TO LEFT MIDDLE ABD. WITH SMALL AMT. BLOODY DRAINAGE NOTED. SIU CATH WITH CLEAR YELLOW/ANA URINE. TELEMETRY ON. ABD. SOFT WITH HYPOACTIVE BOWEL SOUNDS. LUNGS DIM. AND COURSE. SOA AT REST. O2 ON PER N/C AT 3L PER MIN.
[2019-10-10] MEDS: oxyCODONE/APAP 7.5-325 MG (PERCOCET 7.5) TABLET PO PRN (21:57)
[2019-10-11 03:47] VITALS: BP 134/65
[2019-10-11] MEDS: PIPERACILLIN/TAZOBACTAM (BULK) 4.5 GM in NS (IVPB) 100 ML IV SCH ×3 (05:55→21:45)
[2019-10-11 06:31] LABS: BASOPHILS # (AUTO) 0.1 10^3/uL (0.0-0.1); BASOPHILS % (AUTO) 0 % (0-10); EOSINOPHILS % (AUTO) 0 % (0-10); HEMATOCRIT 24 % (40-54); HEMOGLOBIN 8.1 G/DL (13.3-17.7); LYMPHOCYTES # (AUTO) 0.5 X 10^3 (1.0-4.0); LYMPHOCYTES % (AUTO) 2 % (12-44); MEAN CORPUSCULAR HEMOGLOBIN 29 PG (25-34); MEAN CORPUSCULAR HGB CONC 34 G/DL (32-36); MEAN CORPUSCULAR VOLUME 87 FL (80-99); MEAN PLATELET VOLUME 10.3 FL (7.4-10.4); MONOCYTES # (AUTO) 0.5 X 10^3 (0.0-1.0); MONOCYTES % (AUTO) 2 % (0-12); NEUTROPHILS # (AUTO) 19.4 X 10^3 (1.8-7.8); NEUTROPHILS % (AUTO) 95 % (42-75); PLATELET COUNT 116 10^3/uL (130-400); RED CELL DISTRIBUTION WIDTH 14.1 % (10.0-14.5); WHITE BLOOD COUNT 20.5 10^3/uL (4.3-11.0)
[2019-10-11 06:54] LABS: ALBUMIN 2.1 GM/DL (3.2-4.5); CHLORIDE 111 MMOL/L (98-107); POTASSIUM 3.6 MMOL/L (3.6-5.0)
[2019-10-11 06:55] LABS: SODIUM 144 MMOL/L (135-145)
[2019-10-11 06:56] LABS: CALCIUM 7.4 MG/DL (8.5-10.1)
[2019-10-11 06:57] LABS: GLUCOSE 153 MG/DL (70-105); TOTAL PROTEIN 4.1 GM/DL (6.4-8.2)
[2019-10-11 06:58] LABS: CARBON DIOXIDE 25 MMOL/L (21-32)
[2019-10-11 06:59] LABS: BILIRUBIN,TOTAL 0.4 MG/DL (0.1-1.0)
[2019-10-11 07:00] LABS: ALKALINE PHOSPHATASE 69 U/L (40-136); PHOSPHORUS 1.8 MG/DL (2.3-4.7)
[2019-10-11 07:01] LABS: CREATININE SERUM 1.01 MG/DL (0.60-1.30); GFR ESTIMATED > 60
[2019-10-11 07:02] LABS: BUN/CREATININE RATIO 36
[2019-10-11 07:03] LABS: ALANINE AMINOTRANSFERASE 1019 U/L (0-55); MAGNESIUM 2.6 MG/DL (1.6-2.4)
--- NOTE | 2019-10-11 07:29 | Diagnostic Imaging Report ---
INDICATION: Nausea, vomiting, and ileus COMPARISON: 10/10/2019 FINDINGS: Single view of the chest demonstrates continued pneumoperitoneum under right hemidiaphragm. The heart is prominent with slight central vascular congestion. Continued atelectasis, infiltrate, effusion is seen left base. There is no pneumothorax. Left subclavian central venous catheter stable. IMPRESSION: Unchanged aeration of the lungs. Dictated by: Dictated on workstation # [id number]
--- NOTE | 2019-10-11 07:33 | Progress Note ---
Subjective Subjective Date Seen by Provider: Oct 11, 2019 Time Seen by Provider: 07:05 Pt resting but easily aroused. He responds to questions with nods and soft partially intelligible voice.He denies any pain except abdominal pain along his incision, however upon palpation he was asphalt still operator along bilateral lower flanks. He has 2 ASHLEY drain that are draining allyson blood decreased in volume. He had several small loose bowel movements yesterday, with nursing staff reporting fecal incontinence. He drank a small amount of water yesterday and this morning he is trying to eat a little of the breakfast. He has been tachypneic with O2 saturation ranging from 90-95%. The sitter reported several apneic episodes last night, and when asked the patient reports wearing a CPAP at night sometimes at home. Review of Systems General: No Chills; Fatigue HEENT: Head Aches (Sometimes); No Visual Changes Pulmonary: No Dyspnea, No Cough Cardiovascular: No: Chest Pain, Palpitations Gastrointestinal: Abdominal Pain (Incisional); No: Vomiting, Diarrhea, Constipation Genitourinary: No Dysuria Musculoskeletal: No: leg pain Neurological: No: Weakness, Numbness Objective Exam Vital Signs Vital Signs - First Documented 10/05/19 10/05/19 10/08/19 10/08/19 22:42 23:23 00:09 03:52 Temp 36.5 Pulse 57 Resp 16 B/P (MAP) 123/96 (105) Pulse Ox 96 O2 Delivery Room Air O2 Flow Rate 4.00 FiO2 50 Capillary Refill : Less Than 3 SecondsLess Than 3 Seconds General Appearance: No Apparent Distress HEENT: PERRL/EOMI Neck: Full Range of Motion Respiratory: Chest Non Tender, Decreased Breath Sounds Cardiovascular: Regular Rate, Rhythm, Normal Peripheral Pulses Gastrointestinal: Normal Bowel Sounds, Soft, Tenderness (Bilateral lower flanks), Other (2 ASHLEY drains) Genital/Rectal: Other (Garzon catheter) Extremity: Normal Capillary Refill, No Pedal Edema Neurologic/Psychiatric: Alert, Disoriented Skin: Normal Color Lymphatic: No Adenopathy Results Lab Laboratory Tests 10/10/19 11:37: Lab Scanned Report Transfusion Reaction Form 10/11/19 06:05: White Blood Count 20.5H, Red Blood Count 2.78L, Hemoglobin 8.1L, Hematocrit 24L, Mean Corpuscular Volume 87, Mean Corpuscular Hemoglobin 29, Mean Corpuscular Hemoglobin Concent 34, Red Cell Distribution Width 14.1, Platelet Count 116L, Mean Platelet Volume 10.3, Neutrophils (%) (Auto) 95H, Lymphocytes (%) (Auto) 2L , Monocytes (%) (Auto) 2, Eosinophils (%) (Auto) 0, Basophils (%) (Auto) 0, Neutrophils # (Auto) 19.4H, Lymphocytes # (Auto) 0.5L, Monocytes # (Auto) 0.5, Eosinophils # (Auto) 0.0, Basophils # (Auto) 0.1, Sodium Level 144, Potassium Level 3.6, Chloride Level 111H, Carbon Dioxide Level 25, Anion Gap 8, Blood Urea Nitrogen 36H, Creatinine 1.01, Estimat Glomerular Filtration Rate > 60, BUN/Creatinine Ratio 36, Glucose Level 153H, Calcium Level 7.4L, Corrected Calcium 8.9, Phosphorus Level 1.8L, Magnesium Level 2.6H, Total Bilirubin 0.4, Aspartate Amino Transf (AST/SGOT) 806H, Alanine Aminotransferase (ALT/SGPT) 1019#H, Alkaline Phosphatase 69, Total Protein 4.1L, Albumin 2.1L Microbiology 10/08/19 MRSA Screen - Final, Complete MRSA not isolated 10/08/19 Blood Culture - Preliminary, Resulted No growth Assessment/Plan Assessment/Plan Assessment and Plan SMALL BOWEL OBSTRUCTION -NG TUBE REMOVED, CONTINUE CLEAR LIQUID DIET -IV FLUIDS -CONSULT DR LOFTON -S/P OPEN RESECTION -2 ASHLEY DRAINS PLACED- DRAINING BLOOD, MONITOR OUTPUT- DECREASED VOLUME HYPOTENSION -CONTINUE IV FLUIDS -IMPROVED -MONITOR SEPSIS -CONTINUE ZOSYN -CONTINUE IV FLUIDS -WBC DECREASED TO 20.5 TODAY FROM 25.5 YESTERDAY, CONTINUE TO MONITOR FOR S/S OF INFECTION PULMONARY EFFUSION -REPEAT CXR SHOWED: Single view of the chest demonstrates continued pneumoperitoneum under right hemidiaphragm. The heart is prominent with slight central vascular congestion. Continued atelectasis, infiltrate, effusion is seen left base. There is no pneumothorax. Left subclavian central venous catheter stable. -CONTINUE TO MONITOR, ENCOURAGE DEEP BREATHES, SPIROMETER AND OSCILLATORY PEP USAGE, -CONSIDER LASIX 20MG BOLUS ANEMIA -DECREASED HGB FROM 7.1 TO 8.1 -MONITOR HGB/HCT -LATERAL DECUBITUS ABDOMINAL XRAY SHOWED: -Left decubitus image shows air over the liver. There are air-fluid levels in the gastrointestinal tract. There are skin bridgette from a vertical abdominal incision. HYPOCALCEMIA -IMPROVING, CORRECTED CALCIUM NORMAL AT 8.9 -MONITOR ORAL INTAKE ELEVATED LIVER ENZYMES -INCREASING AST TO 806 AND ALT TO 1019, -POSSIBLY DUE TO ISCHEMIC POSTOPERATIVE HEPATITIS, -NORMAL BILIRUBIN, NO SIGNS OF JAUNDICE -MONITOR -CONSIDER CT ABDOMEN, HEPATITIS PANEL, RUQ ULTRASOUND ACUTE KIDNEY INJURY -IV FLUIDS MONITOR BUN/CR AND ELECTROLYTES -IMPROVING ELEVATED LIPASE -IMPROVED GASTROPARESIS HIATAL HERNIA Problems: (1) Nausea & vomiting (2) Gastroparesis (3) Elevated lipase (4) AFSHAN (acute kidney injury) (5) SBO (small bowel obstruction) Clinical Quality Measures DVT/VTE Risk/Contraindication: Risk Factor Score Per Nursin RFS Level Per Nursing on Admit: 4+=Very High Supervisory-Addendum Brief Verification & Attestation Participated in pt care: history, MDM, physical Personally performed: exam, history, MDM, supervision of care Care discussed with: Medical Student Procedures: n/a Results interpretation: Verified all documentation SMALL BOWEL OBSTRUCTION -CONTINUE NPO STATUS - STATUS POST OPEN EX-LAP WITH SMALL BOWEL RESECTION WITH PRIMARY ANASTOMOSIS - ASHLEY DRAINS WITH BRIGHT RED BLOOD - UNFORTUNATELY - THERE WAS NO INTAKE RECORDED YESTERDAY - QUESTIONABLE OUTPUT RECORDING WELL SINCE THE INTAKE IS INACCURATE/MISSING. NOT WEIGHT FOR 2 DAYS. -IV FLUIDS TO CONTINUE SEPSIS - CONTINUE TO MONITOR - WHITE COUNT DECREASED FROM 25 TO 25 TODAY - ADDED DIFLUCAN YESTERDAY - BLOOD CULTURE HAS GROWN OUT YEAST - MICROBILOGY DEPARTMENT TO ADD SENSITIVITIES TO BLOOD CULTURE ORDER. POST-OP ANEMIA - HGB IMPROVED FROM 7.1 TO 8.1 TODAY AFTER TRANSFUSION OF TWO UNITS PRBC'S YESTERDAY. ACUTE KIDNEY INJURY -IMPROVED AFTER SHOCK AND NEED FOR PRESSURE SUPPORT WITH NOREPI. - CONTINUE TO MONITOR RENAL FUNCTION CLOSELY ELEVATED LFT'S - MORE GROSSLY ELEVATED TODAY - I STILL BELIEVE THAT THE SHOCK THAT SOLITARIO HAD POST-OPERATIVELY WITH NEED FOR SUPPORT OF HIS PRESSURE WITH NOREPI HAS LED TO PART OF THIS PICTURE OF ELEVATED LIVER ENZYMES, I HAVE STOPPED TPN THIS WAS ORDERED YESTERDAY BY DR. LOFTON FOR THIS MORNING, BUT HAD NOT YET HAPPENED. DR. LOFTON WAS CALLED ABOUT HTIS AND HE WAS IN AGREEMENT WITH STOPPING THE TPN. PT IS TAKING IN LIQUIDS. - REPEAT CMP TOMORROW, ADDING AMYLASE AND LIPASE. - CONSIDER REPEAT CT SCAN OF ABDOMEN AND PELVIS TOMORROW IF HIS LIVER ENZYMES DO NOT IMPROVE WITH HYDRATION AND TIME. - I AM GOING TO DECREASE THE IV REGLAN DUE TO IT'S POTENTIAL FOR CAUSING LIVER ENZYME ELEVATIONS/SYMPTOMS OF HEPATITIS. - GASTROPARESIS - HAS BEEN ON IV REGLAN, WILL DECREASE THE DOSE TO SEE IF THAT HELPS TO IMPROVE HIS RENAL FUNCTION. COUGH - CHECK CXR TOMORROW MORNING AND STARTED BREATHING TREATMENT THIS AFTERNOON DUE TO HIS PRODUCTIVE SPUTUM AND SHORTNESS OF BREATH. I HAVE TALKED TO THE SWING BED COORDINATOR AND WE WILL CONSIDER SWING BED STATUS FOR SOLITARIO ON MONDAY DEPENDING ON HIS OVERALL HEALTH STATUS. NILSA AGUIRRE MED STUD Oct 11, 2019 07:33 TITA LAINEZ MD Oct 11, 2019 14:20
[2019-10-11 07:47] VITALS: BP 135/64
--- NOTE | 2019-10-11 08:26 | NUR ---
PTD TPN LABS SCR 1.01, K 3.6, MG 2.6, PHOS 1.8 PLAN: BOLUS K-PHOS 15MMOL X 1 TODAY, ADJUST E-LYTES IN TPN TODAY.- SEE NEW ORDERS. Addendum: 10/11/19 at 1008 by NILSA ROBLES [facility] CORRECTION NO CHANGE TO TPN TODAY.
[2019-10-11] MEDS: fentaNYL INJECTION 100 MCG/2 ML AMP IVP PRN ×3 (08:30→13:38)
[2019-10-11] MEDS ORDERED: 1/2 NS IV SOLUTION 1,000 ML IV SCH (08:30)
[2019-10-11] MEDS ORDERED: POTASSIUM PHOSPHATE INJ 15 MM in NS (IVPB) 250 ML IV ONE (08:30)
[2019-10-11] MEDS: PANTOPRAZOLE 40 MG (PROTONIX) VIAL IV SCH (08:49)
[2019-10-11] MEDS: METOCLOPRAMIDE INJ 10 MG/2 ML (REGLAN) IV SCH ×4 (08:50→21:44)
[2019-10-11] MEDS: FLUCONAZOLE 200 MG/100 ML 50 ML, EMPTY IV BAG (PVC) 1 EA IV SCH ×2 (08:54)
--- NOTE | 2019-10-11 10:25 | Progress Note ---
Subjective Date Seen by a Provider: Oct 11, 2019 Time Seen by a Provider: 10:00 Subjective/Events-last exam doing better. still confused however slightly improved. tolerating clears and having bowel movements. Objective Exam Vital Signs Date Time Temp Pulse Resp B/P (MAP) Pulse Ox O2 Delivery O2 Flow Rate FiO2 10/11/19 09:48 93 High Flow N/C 2.00 10/11/19 07:47 37.1 92 24 135/64 (87) 95 Nasal Cannula 1.00 10/11/19 07:00 94 10/11/19 03:47 36.7 89 26 134/65 (88) 92 Nasal Cannula 1.00 10/11/19 01:01 87 10/10/19 23:52 37.1 92 26 124/66 (85) 93 Nasal Cannula 2.00 10/10/19 20:00 36.7 91 26 127/88 (101) 93 Nasal Cannula 2.00 10/10/19 20:00 93 Nasal Cannula 2.00 10/10/19 19:00 95 10/10/19 17:14 36.6 100 26 126/78 93 Nasal Cannula 2.00 10/10/19 16:00 36.7 96 28 122/73 (89) 94 Nasal Cannula 2.00 10/10/19 15:15 37.3 102 34 123/73 94 Room Air 10/10/19 15:00 97 30 118/72 (87) 92 Room Air 10/10/19 15:00 37.2 98 27 118/72 92 Nasal Cannula 2.00 10/10/19 14:00 101 34 107/70 (82) 93 Room Air 10/10/19 14:00 36.7 101 34 107/70 93 Room Air 10/10/19 13:53 94 Nasal Cannula 2.00 10/10/19 13:00 102 58 115/75 (88) 95 Room Air 10/10/19 12:50 99 10/10/19 12:00 99 26 111/65 (80) 93 Room Air 10/10/19 11:27 37.7 96 26 107/67 94 10/10/19 11:16 37.7 10/10/19 11:13 37.7 102 19 108/61 93 Nasal Cannula 2.00 10/10/19 11:00 104 32 108/61 (77) 93 Room Air I & O 10/11/19 07:00 Intake Total 1315 ml Output Total 2960 ml Balance -1645 ml Capillary Refill : Less Than 3 SecondsLess Than 3 Seconds General Appearance: No Apparent Distress HEENT: PERRL/EOMI Neck: Full Range of Motion Respiratory: Chest Non Tender, Decreased Breath Sounds Cardiovascular: Regular Rate, Rhythm Gastrointestinal: soft, tenderness, other (open wound, granulation bed starting) Extremity: Normal Capillary Refill Neurologic/Psychiatric: Alert, Oriented x3 Skin: Normal Color Lymphatic: No Adenopathy Results Lab Laboratory Tests 10/10/19 11:37: Lab Scanned Report Transfusion Reaction Form 10/11/19 06:05: White Blood Count 20.5H, Red Blood Count 2.78L, Hemoglobin 8.1L, Hematocrit 24L, Mean Corpuscular Volume 87, Mean Corpuscular Hemoglobin 29, Mean Corpuscular Hemoglobin Concent 34, Red Cell Distribution Width 14.1, Platelet Count 116L, Mean Platelet Volume 10.3, Neutrophils (%) (Auto) 95H, Lymphocytes (%) (Auto) 2L , Monocytes (%) (Auto) 2, Eosinophils (%) (Auto) 0, Basophils (%) (Auto) 0, Neutrophils # (Auto) 19.4H, Lymphocytes # (Auto) 0.5L, Monocytes # (Auto) 0.5, Eosinophils # (Auto) 0.0, Basophils # (Auto) 0.1, Sodium Level 144, Potassium Level 3.6, Chloride Level 111H, Carbon Dioxide Level 25, Anion Gap 8, Blood Urea Nitrogen 36H, Creatinine 1.01, Estimat Glomerular Filtration Rate > 60, BUN/Creatinine Ratio 36, Glucose Level 153H, Calcium Level 7.4L, Corrected Calcium 8.9, Phosphorus Level 1.8L, Magnesium Level 2.6H, Total Bilirubin 0.4, Aspartate Amino Transf (AST/SGOT) 806H, Alanine Aminotransferase (ALT/SGPT) 1019#H, Alkaline Phosphatase 69, Total Protein 4.1L, Albumin 2.1L Microbiology 10/08/19 MRSA Screen - Final, Complete MRSA not isolated 10/08/19 Blood Culture - Preliminary, Resulted YEAST Assessment/Plan Assessment/Plan Assess & Plan/Chief Complaint acute on chronic SBO with ischemic changes ileum s/p expl lap, MARIE and long segment SB resection. renal failure. increase IV fluids. improving ICU psychosis. haldol 2mg. cont IV abx. add antifungal. having bowel fxn. advance to dys3 diet. Clinical Quality Measures DVT/VTE Risk/Contraindication: Risk Factor Score Per Nursin RFS Level Per Nursing on Admit: 4+=Very High ROMAIN LOFTON MD Oct 11, 2019 10:25
[2019-10-11] MEDS: oxyCODONE/APAP 7.5-325 MG (PERCOCET 7.5) TABLET PO PRN ×2 (10:26→17:34)
[2019-10-11 11:45] VITALS: BP 119/84
--- NOTE | 2019-10-11 13:29 | NUR ---
CM/SS: Visit with pt and spouse as to pt's current status and future plan for discharge Plan: Pt is from home and lives with his spouse Summary: Pt is having some difficulty with his coughing and needing suction. Spouse is at the bedside and reports prior to this worker that pt was getting along fine and that he was mowing the lawn and taking care of things at the house. Discussed with spouse placement and skilled care. She reports pt would not like that. She reports that her father was in [facility] for 5 years and feels as if he did not get good care there. Spouse reports that pts son will be in town over the weekend from [place] to see him. It is a surprise for the pt. Spouse reports she will be back to see pt on Monday, based on the current visitor policy. This worker will follow up.
[2019-10-11] MEDS ORDERED: SALIVA STIMULANT MOUTH SPRAY (BIOTENE) 1.5 OZ MM PRN (14:30)
[2019-10-11] MEDS ORDERED: FUROSEMIDE 40 MG/4 ML INJ (LASIX) IVP NR (14:30)
[2019-10-11] MEDS: RT-ALBUTEROL/IPRATROPIUM 3 ML (DUONEB) VIAL INH SCH ×2 (14:51→19:02)
--- NOTE | 2019-10-11 15:22 | Physical Therapy Progress Note ---
Therapy Progress Note Pt supine in bed upon arrival to room, difficult to arouse and falls back asleep within seconds. RN states that pt was recently given Fentanyl and to hold therapy this date. Will follow up tomorrow to initiate PT evaluation. KRYS ALEJANDRO PT Oct 11, 2019 15:22
--- NOTE | 2019-10-11 15:41 | Occ Therapy Progress Note ---
Therapy Progress Note Attempt x2 (6800, 1510). Pt able to communicate a few words, pt then falls asleep. Minimally responsive to verbal/ tactile attempts to arouse. Pt's nurse states pt just received pain medications, OT to hold tx on this date and attempt at later date. MARIA GUADALUPE FARRELL OTR Oct 11, 2019 15:41
[2019-10-11 16:00] VITALS: BP 117/72
[2019-10-11] MEDS: D5 NS W/KCL 20 MEQ/L 1,000 ML IV SCH (17:45)
[2019-10-11 19:08] VITALS: BP 124/80
[2019-10-12] VITALS: BP 127/81
[2019-10-12] MEDS: D5 NS W/KCL 20 MEQ/L 1,000 ML IV SCH ×3 (03:51→21:21)
[2019-10-12 04:00] VITALS: BP 112/64
[2019-10-12 04:51] LABS: MEAN PLATELET VOLUME 10.5 FL (7.4-10.4); RED CELL DISTRIBUTION WIDTH 14.6 % (10.0-14.5); WHITE BLOOD COUNT 29.5 10^3/uL (4.3-11.0)
[2019-10-12 05:02] LABS: POTASSIUM 3.3 MMOL/L (3.6-5.0); SODIUM 145 MMOL/L (135-145)
[2019-10-12 05:03] LABS: CHLORIDE 112 MMOL/L (98-107)
[2019-10-12 05:04] LABS: AMYLASE 71 U/L (25-125); CALCIUM 7.3 MG/DL (8.5-10.1)
[2019-10-12 05:05] LABS: GLUCOSE 114 MG/DL (70-105); TOTAL PROTEIN 4.2 GM/DL (6.4-8.2)
[2019-10-12 05:06] LABS: CARBON DIOXIDE 26 MMOL/L (21-32)
[2019-10-12 05:07] LABS: BILIRUBIN,TOTAL 0.7 MG/DL (0.1-1.0)
[2019-10-12 05:08] LABS: ALKALINE PHOSPHATASE 72 U/L (40-136); PHOSPHORUS 2.3 MG/DL (2.3-4.7)
[2019-10-12 05:09] LABS: CREATININE SERUM 0.81 MG/DL (0.60-1.30); GFR ESTIMATED > 60
[2019-10-12 05:10] LABS: BUN/CREATININE RATIO 30
[2019-10-12 05:12] LABS: ALANINE AMINOTRANSFERASE 702 U/L (0-55)
[2019-10-12 05:13] LABS: LIPASE 84 U/L (8-78)
--- NOTE | 2019-10-12 05:34 | NUR ---
DR JULES NOTIFIED OF PT PLT COUNT OF 59, COMPARED TO THE 116 YESTERDAY, AND THAT PT RECEIVES HEPARIN Q8HR. DR ORDERED TO HOLD AM DOSE HEPARIN
[2019-10-12] MEDS: PIPERACILLIN/TAZOBACTAM (BULK) 4.5 GM in NS (IVPB) 100 ML IV SCH ×3 (06:00→22:00)
--- NOTE | 2019-10-12 06:01 | Progress Note - Surgery ---
Subjective Date Seen by a Provider: Oct 12, 2019 Time Seen by a Provider: 05:56 Subjective/Events-last exam Laying in bed. Pain controlled. Having bowel function. Drains serosang. WBC up to 29 k On Zosyn, Diflucan. On Dys 3 diet. Denies shortness of breath or chest pain. Objective Exam Vital Signs Date Time Temp Pulse Resp B/P (MAP) Pulse Ox O2 Delivery O2 Flow Rate FiO2 10/12/19 04:00 36.8 76 24 112/64 (80) 97 Nasal Cannula 4.50 10/12/19 01:00 81 10/12/19 00:00 37.8 70 24 127/81 (96) 94 Nasal Cannula 4.50 10/11/19 20:26 Nasal Cannula 5.00 10/11/19 19:08 36.6 96 16 124/80 (95) 93 Nasal Cannula 5.00 10/11/19 19:03 93 High Flow N/C 5.00 10/11/19 19:00 89 10/11/19 16:00 37.3 74 18 117/72 (87) 96 Nasal Cannula 4.50 10/11/19 14:51 94 High Flow N/C 2.00 10/11/19 12:42 91 10/11/19 11:45 36.8 88 22 119/84 (96) 95 Nasal Cannula 2.00 10/11/19 09:48 93 High Flow N/C 2.00 10/11/19 08:00 93 Nasal Cannula 2.00 10/11/19 07:47 37.1 92 24 135/64 (87) 95 Nasal Cannula 1.00 10/11/19 07:00 94 I & O 10/12/19 07:00 Intake Total 4475 ml Output Total 2710 ml Balance 1765 ml Capillary Refill : Less Than 3 SecondsLess Than 3 Seconds General Appearance: No Apparent Distress HEENT: PERRL/EOMI Neck: Full Range of Motion Respiratory: Chest Non Tender, Decreased Breath Sounds Cardiovascular: Regular Rate, Rhythm, Normal Peripheral Pulses Gastrointestinal: soft, tenderness (incisional), other (open wound, granulation bed starting, no significant erythema) Extremity: Normal Capillary Refill, No Pedal Edema Neurologic/Psychiatric: Alert, Disoriented Skin: Normal Color Lymphatic: No Adenopathy Results Lab Laboratory Tests 10/11/19 06:05: White Blood Count 20.5H, Red Blood Count 2.78L, Hemoglobin 8.1L, Hematocrit 24L, Mean Corpuscular Volume 87, Mean Corpuscular Hemoglobin 29, Mean Corpuscular Hemoglobin Concent 34, Red Cell Distribution Width 14.1, Platelet Count 116L, Mean Platelet Volume 10.3, Neutrophils (%) (Auto) 95H, Lymphocytes (%) (Auto) 2L , Monocytes (%) (Auto) 2, Eosinophils (%) (Auto) 0, Basophils (%) (Auto) 0, Neut rophils # (Auto) 19.4H, Lymphocytes # (Auto) 0.5L, Monocytes # (Auto) 0.5, Eosinophils # (Auto) 0.0, Basophils # (Auto) 0.1, Sodium Level 144, Potassium Level 3.6, Chloride Level 111H, Carbon Dioxide Level 25, Anion Gap 8, Blood Urea Nitrogen 36H, Creatinine 1.01, Estimat Glomerular Filtration Rate > 60, BUN/C reatinine Ratio 36, Glucose Level 153H, Calcium Level 7.4L, Corrected Calcium 8.9, Phosphorus Level 1.8L, Magnesium Level 2.6H, Total Bilirubin 0.4, Aspartate Amino Transf (AST/SGOT) 806H, Alanine Aminotransferase (ALT/SGPT) 1019#H, Alkaline Phosphatase 69, Total Protein 4.1L, Albumin 2.1L 10/11/19 11:05: Lab Scanned Report Transfusion Reaction Form 10/12/19 04:40: White Blood Count 29.5H, Red Blood Count 2.74L, Hemoglobin 8.0L, Hematocrit 24L, Mean Corpuscular Volume 88, Mean Corpuscular Hemoglobin 29, Mean Corpuscular Hemoglobin Concent 33, Red Cell Distribution Width 14.6H, Platelet Count 59L, Mean Platelet Volume 10.5H, Sodium Level 145, Potassium Level 3.3L, Chloride Level 112H, Carbon Dioxide Level 26, Anion Gap 7, Blood Urea Nitrogen 24H, Creatinine 0.81, Estimat Glomerular Filtration Rate > 60, BUN/Creatinine Ratio 30, Glucose Level 114H, Calcium Level 7.3L, Corrected Calcium 8.9, Phosphorus Level 2.3, Magnesium Level 2.0, Total Bilirubin 0.7, Aspartate Amino Transf (AST/SGOT) 427H, Alanine Aminotransferase (ALT/SGPT) 702#H, Alkaline Phosphatase 72, Total Protein 4.2L, Albumin 2.0L, Amylase Level 71, Lipase 84H Microbiology 10/08/19 MRSA Screen - Final, Complete MRSA not isolated 10/08/19 Blood Culture - Preliminary, Resulted YEAST Assessment/Plan Assessment/Plan Assessment/Plan acute on chronic SBO with ischemic changes ileum s/p expl lap, MARIE and long segment SB resection. renal failure. ICU psychosis. cont IV abx./ antifungal will consider switching to Meropenem diet dys 3 chest x ray ordered Clinical Quality Measures DVT/VTE Risk/Contraindication: Risk Factor Score Per Nursin RFS Level Per Nursing on Admit: 4+=Very High DEBBIE WISE DO Oct 12, 2019 06:01
--- NOTE | 2019-10-12 07:18 | Diagnostic Imaging Report ---
EXAMINATION: Chest radiograph, portable AP view. DATE: 10/12/2019 6:28 AM hours. INDICATION: 74-year-old male, fever and hypoxia. COMPARISON: October 11, 2019. FINDINGS: There is a left sided central venous line with tip overlying the upper SVC. Stable overall appearance of the cardiomediastinal silhouette. The aorta is tortuous and/or ectatic. There is no identified pneumothorax. There is nonspecific left mid and lower lung zone opacification. There is minimal blunting of the right lateral costophrenic angle. IMPRESSION: 1. Grossly unchanged nonspecific left mid and lower lung zone consolidation which may relate to pleural effusion, infiltrate, and/or atelectasis. 2. Minimal blunting of the right lateral costophrenic angle which could relate to small effusion, atelectasis, and/or infiltrate. 3. Stable positioning of the left sided central venous line. Dictated by: Dictated on workstation # [id number]
[2019-10-12] MEDS: RT-ALBUTEROL/IPRATROPIUM 3 ML (DUONEB) VIAL INH SCH ×3 (07:37→19:45)
[2019-10-12 08:04] VITALS: BP 135/83
[2019-10-12] MEDS: PANTOPRAZOLE 40 MG (PROTONIX) VIAL IV SCH (10:15)
[2019-10-12] MEDS: METOCLOPRAMIDE INJ 10 MG/2 ML (REGLAN) IV SCH ×4 (10:16→20:53)
[2019-10-12] MEDS: FLUCONAZOLE 200 MG/100 ML 50 ML, EMPTY IV BAG (PVC) 1 EA IV SCH ×2 (10:35)
--- NOTE | 2019-10-12 11:38 | Physical Therapy Evaluation ---
PT Evaluation-General Medical Diagnosis Admission Date Oct 07, 2019 at 21:00 Medical Diagnosis: Small Bowel Obstruction Onset Date: Oct 11, 2019 Therapy Diagnosis Therapy Diagnosis: weakness; impaired mobility Height/Weight Height (Feet): 6 Height (Inches): 1.00 Weight (Pounds): 170 Weight (Ounces): 0.0 Precautions Precautions/Isolations: Aspiration, Fall Prevention, Standard Precautions, Pressure Ulcer Weight Bear Status Right Lower Extremity: Right Weight Bearing/Tolerated Left Lower Extremity: Left Weight Bearing/Tolerated Referral Physician: Jayden Reason for Referral: Evaluation/Treatment Medical History Pertinent Medical History: Diverticulitis, GERD, HTN, Rheumatoid Arthritis Additional Medical History anxiety, PTSD Current History Patient underwent surgical repair for small bowel obstruction. Social History Home: Single Level Current Living Status: Spouse Prior Prior Level of Function SCALE: Activities may be completed with or without assistive devices. 9-Frdtjziqpi-vjlmwjt completes the activity by him/herself with no assistance from a helper. 5-Set-up or Clean-up Assistance-helper sets up or cleans up; patient completes activity. [place] assists only prior to or following the activity. 4-Supervision or Touching Assistance-helper provides verbal cues and/or touching/steadying and/or contact guard assistance as patient completes activ ity. Assistance may be provided throughout the activity or intermittently. 3-Partial/Moderate Assistance-helper does LESS THAN HALF the effort. [place] lifts, holds or supports trunk or limbs, but provides less than half the effort. 2-Substantial/Maximal Assistance-helper does MORE THAN HALF the effort. [place] lifts or holds trunk or limbs and provides more than half the effort. 9-Lkhgspjdr-ajjdmr does ALL the effort. Patient does none of the effort to complete the activity. Or, the assistance of 2 or more helpers is required for the patient to complete the activity. If activity was not attempted, code reason: 7-Patient Refused. 9-Not Applicable-not attempted and the patient did not perform the activity before the current illness, exacerbation or injury. 10-Not Attempted due to Environmental Limitations-(lack of equipment, weather restraints, etc.). 88-Not Attempted due to Medical Conditions or Safety Concerns. Bed Mobility: 6 Transfers (B,C,W/C): 6 Gait: 6 Indoor Mobility (Ambulation): Independent PT Evaluation-Current Subjective Pt admitted due to small bowel obstruction. He underwent surgical repair 7/10. Pt is now weak with impaired mobility skills. Objective Patient Orientation: Confused Attachments: Oxygen, Drains, Garzon Catheter ROM/Strength ROM Upper Extremities WFL ROM Lower Extremities WFL Strength Upper Extremities gross 4/5 Strength Lower Extremities gross 3/5 Sensory Vision: Functional Hearing: Functional Sensation Right Upper Extremit: Intact Sensation Left Upper Extremity: Intact Transfers Roll Left to Right (QC): 3 Sit to Lying (QC): 3 Lying to Sitting/Side of Bed(Q: 3 Sit to Stand (QC): 3 Chair/Kca-jj-Rmuzu Xfer(QC): 3 Toilet Transfer (QC): 3 Needs Moderate physical assist for sit to stand, bed mobility, and standing balance. Gait Distance: 5ft Gait Assistive Device: FWW Balance Sitting Static: Good Sitting Dynamic: Good Standing Static: Fair Standing Dynamic: Poor Assessment/Needs Pt is week following surgical procedure. He has mild confusion and is somewhat combative if pushed to move too quickly. He will benefit from PT to restore mobility, strength, and balance. Rehab Potential: Good PT Intermediate Goals Intermediate Goals PT Associate Director Financial Aid Goals Time Frame: Oct 18, 2019 Roll Left & Right (QC): 6 Sit to Lying (QC): 6 Lying-Sitting on Side/Bed(QC): 6 Sit to Stand (QC): 6 Chair/Fhs-iu-Digdr Xfer(QC): 5 Toilet Transfer (QC): 5 Car Transfer (QC): 5 Does the Patient Walk: Yes Walk 10 feet (QC): 5 Walk 50ft with 2 Turns (QC): 5 Walk 150 ft (QC): 5 PT Plan Problem List Problem List: Balance, Gait, Bed Mobility Treatment/Plan Treatment Plan: Continue Plan of Care Treatment Duration: Oct 18, 2019 Frequency: 6 times per week Estimated Hrs Per Day: .25 hour per day Safety Risks/Education Patient Education: Gait Training Discharge Recommendations Therapy Discharge Recommendati: Post Acute PT Target Placement home Time/GCodes Time In: 1120 Time Out: 1145 Total Billed Treatment Time: 25 Total Billed Treatment visit, evalmoderate complexity 25 min TALON FRANKS PT Oct 12, 2019 11:38
[2019-10-12] MEDS ORDERED: VANCOMYCIN INJECTION 0.1 MG in NS (IVPB) 250 ML IV SCH (11:45)
[2019-10-12 11:57] VITALS: BP 115/82
--- NOTE | 2019-10-12 12:00 | Progress Note ---
Subjective Date Seen by a Provider: Oct 12, 2019 Time Seen by a Provider: 12:00 Subjective/Events-last exam Fwup sepsis, small bowel obstruction, elevated LFTs, Hypokalemia, pleural effusion/infiltrate. Sitting up in bed. Denies pain. Having bowel movements. Son in room at bedside. Objective Exam Vital Signs Date Time Temp Pulse Resp B/P (MAP) Pulse Ox O2 Delivery O2 Flow Rate FiO2 10/12/19 08:04 37.2 97 16 135/83 (100) 97 High Flow N/C 5.00 10/12/19 07:41 93 High Flow N/C 5.00 10/12/19 07:00 81 10/12/19 04:00 36.8 76 24 112/64 (80) 97 Nasal Cannula 4.50 10/12/19 01:00 81 10/12/19 00:00 37.8 70 24 127/81 (96) 94 Nasal Cannula 4.50 10/11/19 20:26 Nasal Cannula 5.00 10/11/19 19:08 36.6 96 16 124/80 (95) 93 Nasal Cannula 5.00 10/11/19 19:03 93 High Flow N/C 5.00 10/11/19 19:00 89 10/11/19 16:00 37.3 74 18 117/72 (87) 96 Nasal Cannula 4.50 10/11/19 14:51 94 High Flow N/C 2.00 10/11/19 12:42 91 I & O 10/12/19 07:00 Intake Total 5795 ml Output Total 3385 ml Balance 2410 ml Capillary Refill : Less Than 3 SecondsLess Than 3 Seconds General Appearance: No Apparent Distress Respiratory: Lungs Clear, Decreased Breath Sounds Cardiovascular: Regular Rate, Rhythm Gastrointestinal: non tender, soft, abnormal bowel sounds Extremity: Non Tender, No Calf Tenderness, No Pedal Edema Neurologic/Psychiatric: Alert Skin: Warm/Dry Results Lab Laboratory Tests 10/12/19 04:40: White Blood Count 29.5H, Red Blood Count 2.74L, Hemoglobin 8.0L, Hematocrit 24L, Mean Corpuscular Volume 88, Mean Corpuscular Hemoglobin 29, Mean Corpuscular Hemoglobin Concent 33, Red Cell Distribution Width 14.6H, Platelet Count 59L, M regulo Platelet Volume 10.5H, Sodium Level 145, Potassium Level 3.3L, Chloride Level 112H, Carbon Dioxide Level 26, Anion Gap 7, Blood Urea Nitrogen 24H, Creatinine 0.81, Estimat Glomerular Filtration Rate > 60, BUN/Creatinine Ratio 30, Glucose Level 114H, Calcium Level 7.3L, Corrected Calcium 8.9, Phosphorus Level 2.3, Magnesium Level 2.0, Total Bilirubin 0.7, Aspartate Amino Transf (A ST/SGOT) 427H, Alanine Aminotransferase (ALT/SGPT) 702#H, Alkaline Phosphatase 72, Total Protein 4.2L, Albumin 2.0L, Amylase Level 71, Lipase 84H Microbiology 10/08/19 MRSA Screen - Final, Complete MRSA not isolated 10/08/19 Blood Culture - Preliminary, Resulted YEAST Assessment/Plan Assessment/Plan Assess & Plan/Chief Complaint 1. Sepsis--add Vancomycin to zosyn, may need to switch diflucan to eraxis due to fungemia on blood cultures and WBC count worsening 2. Small Bowel Obstruction--drains in place with serosanguinous drainage, having bowel movements and tolerating orals 3. Thrombocytopenia--could be from sepsis or from heparin, will hold heparin today and recheck tomorrow 4. Pleural Effusion vs Infiltrate--add Vancomycin as above and monitor WBC count/CXR--try to encourage IS 5. Hypokalemia--replace potassium Clinical Quality Measures DVT/VTE Risk/Contraindication: Risk Factor Score Per Nursin RFS Level Per Nursing on Admit: 4+=Very High TAWANA JULES DO Oct 12, 2019 12:00
--- NOTE | 2019-10-12 12:09 | NUR ---
PTD Vancomycin - Loading dose, 1500mg over 2 hours, then 1250mg every 12 hours. Trough on 10/13 @ 1300.
[2019-10-12] MEDS ORDERED: VANCOMYCIN 1500 MG/NS 500 ML IVPB IV NR ×2 (12:15)
[2019-10-12] MEDS: POTASSIUM CL 10MEQ/50ML IVPB 50 ML IV SCH ×4 (12:32→15:54)
--- NOTE | 2019-10-12 13:53 | Occ Therapy Progress Note ---
Therapy Progress Note OT orders received and acknowledged by physical therapy. Gross UE assessment performed. Complete OT exam will take place 10/13. TALON FRANKS PT Oct 12, 2019 13:53
[2019-10-12 16:00] VITALS: BP 113/51
[2019-10-12 20:18] VITALS: BP 119/68
[2019-10-13] VITALS (11 sets, daily range): BP systolic 94–152; BP diastolic 62–88
[2019-10-13] MEDS: D5 NS W/KCL 20 MEQ/L 1,000 ML IV SCH ×3 (00:01→22:06)
[2019-10-13] MEDS: HALOPERIDOL 5 MG/ML (HALDOL) VIAL IM PRN (00:38)
[2019-10-13] MEDS: VANCOMYCIN 1250 MG/NS 250 ML IVPB IV SCH ×4 (02:09→14:24)
[2019-10-13 05:46] LABS: EOSINOPHILS # (AUTO) 0.3 10^3/uL (0.0-0.3); EOSINOPHILS % (AUTO) 1 % (0-10); HEMATOCRIT 22 % (40-54); HEMOGLOBIN 7.1 G/DL (13.3-17.7); LYMPHOCYTES # (AUTO) 1.4 X 10^3 (1.0-4.0); LYMPHOCYTES % (AUTO) 4 % (12-44); MEAN CORPUSCULAR HEMOGLOBIN 29 PG (25-34); MEAN CORPUSCULAR HGB CONC 33 G/DL (32-36); MEAN CORPUSCULAR VOLUME 89 FL (80-99); MEAN PLATELET VOLUME 11.5 FL (7.4-10.4); MONOCYTES # (AUTO) 1.2 X 10^3 (0.0-1.0); MONOCYTES % (AUTO) 3 % (0-12); RED CELL DISTRIBUTION WIDTH 14.2 % (10.0-14.5)
--- NOTE | 2019-10-13 05:47 | NUR ---
WBC 36.9, PLT COUNT 36. DR. ORDER NOTIFIED. ORDER TO DC DIFLUCAN. GIVE ERAXIS 200MG IV X1. CT SCAN OF CHEST/ABD/PELVIS WITHOUT CONTRAST STAT.
[2019-10-13 05:49] LABS: PLATELET COUNT 36 10^3/uL (130-400); WHITE BLOOD COUNT 36.9 10^3/uL (4.3-11.0)
[2019-10-13 05:51] LABS: BASOPHILS # (AUTO) 0.8 10^3/uL (0.0-0.1); BASOPHILS % (AUTO) 2 % (0-10); NEUTROPHILS # (AUTO) 33.1 X 10^3 (1.8-7.8); NEUTROPHILS % (AUTO) 90 % (42-75)
[2019-10-13 06:09] LABS: ALBUMIN 1.9 GM/DL (3.2-4.5); CHLORIDE 116 MMOL/L (98-107); POTASSIUM 3.3 MMOL/L (3.6-5.0); SODIUM 146 MMOL/L (135-145)
[2019-10-13 06:10] LABS: CALCIUM 7.2 MG/DL (8.5-10.1)
[2019-10-13 06:11] LABS: GLUCOSE 110 MG/DL (70-105)
[2019-10-13 06:12] LABS: TOTAL PROTEIN 4.1 GM/DL (6.4-8.2)
[2019-10-13 06:13] LABS: BILIRUBIN,TOTAL 0.9 MG/DL (0.1-1.0); CARBON DIOXIDE 21 MMOL/L (21-32)
[2019-10-13 06:15] LABS: ALKALINE PHOSPHATASE 75 U/L (40-136); CREATININE SERUM 0.74 MG/DL (0.60-1.30); GFR ESTIMATED > 60
[2019-10-13 06:16] LABS: BUN/CREATININE RATIO 27
[2019-10-13 06:18] LABS: ALANINE AMINOTRANSFERASE 429 U/L (0-55); MAGNESIUM 1.9 MG/DL (1.6-2.4)
[2019-10-13] MEDS ORDERED: ANIDULAFUNGIN INJECTION 200 MG in NS (IVPB) 250 ML IV NR (06:30)
--- NOTE | 2019-10-13 07:37 | Diagnostic Imaging Report ---
PROCEDURE: CT chest, abdomen, and pelvis without contrast. TECHNIQUE: Multiple contiguous axial images were obtained through the chest, abdomen, and pelvis without the use of intravenous contrast. Auto Exposure Controls were utilized during the CT exam to meet ALARA standards for radiation dose reduction. INDICATION: Nausea and vomiting. Ileus. Leukocytosis. COMPARISON: CT abdomen and pelvis with IV contrast 10/03/2019. CT chest without contrast 01/31/2019. FINDINGS: Examination is limited by motion. CT CHEST: Since the prior exam, there is new moderate left and tiny right pleural effusions. Consolidation with air bronchograms throughout much of the left lower lobe. Mild atelectasis in the right lung base. No pneumothorax. Left subclavian CVC tip in the upper SVC. Borderline heart size. No mediastinal or hilar lymphadenopathy is identified on this noncontrast exam. No acute osseous findings are identified. CT abdomen and pelvis: Interval midline surgical incision and placement of surgical drains with the tips in the pelvis. Small amount of free fluid in the abdomen. Scant free intraperitoneal air should be postoperative. Moderate amount of free fluid in the abdomen. Sigmoid bowel anastomosis was present on the prior exam. There is a new bowel anastomosis which may be related to the right of this which is new. Garzon catheter. The liver, gallbladder, pancreas, spleen, adrenals, left kidney and collecting systems are unremarkable. Stable simple cyst in the right kidney measuring up to 3.5 cm. No lymphadenopathy is identified. No acute osseous findings. IMPRESSION: 1. Examination limited by motion and lack of IV contrast. 2. Interval midline surgical incision and 2 drains with tips in the pelvis. There is also new bowel anastomosis in the pelvis. 3. Increasing free fluid within the abdomen. No organized fluid collections are identified on this noncontrast exam. Scant free intraperitoneal air should be postoperative. No dilated bowel loops. 4. Increasing bilateral pleural effusions, greater on the left. There is also dense consolidation in the left lower lobe with air bronchograms which could be due to pneumonitis versus atelectasis. Dictated by: Dictated on workstation # [id number]
--- NOTE | 2019-10-13 07:48 | Diagnostic Imaging Report ---
Indication: Abdominal pain with nausea and vomiting, dyspnea. Comparison: 10/12/2019. Discussion: Single portable upright view of the chest was obtained. Moderate left pleural effusion is stable. Trace right pleural effusion is stable. Borderline cardiomegaly is stable. Atelectasis or infiltrate within the right upper lobe and left lung is increased slightly, could be due to poor respiratory effort though underlying edema or pneumonia is not entirely excluded. Recommend continued follow-up. No pneumothorax. Left-sided central venous catheter stable. Impression: 1. Stable effusions, left greater than right. 2. Worsening nonspecific groundglass infiltrates as described. Dictated by: Dictated on workstation # [id number]
[2019-10-13] MEDS: PANTOPRAZOLE 40 MG (PROTONIX) VIAL IV SCH (08:53)
[2019-10-13] MEDS: METOCLOPRAMIDE INJ 10 MG/2 ML (REGLAN) IV SCH ×4 (08:53→21:16)
[2019-10-13] MEDS: RT-ALBUTEROL/IPRATROPIUM 3 ML (DUONEB) VIAL INH SCH ×3 (09:24→19:37)
[2019-10-13] MEDS ORDERED: FUROSEMIDE 40 MG/4 ML INJ (LASIX) IVP ONE (10:30)
[2019-10-13] MEDS: POTASSIUM CL 10MEQ/50ML IVPB 50 ML IV SCH ×2 (10:31→11:17)
--- NOTE | 2019-10-13 10:31 | Progress Note ---
Subjective Date Seen by a Provider: Oct 13, 2019 Time Seen by a Provider: 10:25 Subjective/Events-last exam Fwup sepsis, small bowel obstruction, elevated LFTs, Hypokalemia, pleural effusion/infiltrate. Drowsy but will awaken and answer questions. Runny stools this morning per nursing. Objective Exam Vital Signs Date Time Temp Pulse Resp B/P (MAP) Pulse Ox O2 Delivery O2 Flow Rate FiO2 10/13/19 09:24 95 High Flow N/C 4.00 10/13/19 08:02 37.7 53 16 129/82 (98) 97 High Flow N/C 5.00 10/13/19 07:00 98 10/13/19 04:00 37.5 94 22 145/62 (89) 95 Nasal Cannula 5.00 10/13/19 01:00 87 10/13/19 00:00 37.1 79 22 121/75 (90) 98 Nasal Cannula 5.00 10/12/19 20:18 36.9 89 16 119/68 (85) 94 Nasal Cannula 5.00 10/12/19 20:00 Nasal Cannula 4.00 10/12/19 19:45 95 High Flow N/C 5.00 10/12/19 19:00 94 10/12/19 16:00 38.0 82 20 113/51 (71) 94 Nasal Cannula 6.00 10/12/19 14:19 92 High Flow N/C 5.00 10/12/19 12:49 89 10/12/19 11:57 36.8 73 16 115/82 (93) 95 High Flow N/C 6.00 I & O 10/13/19 07:00 Intake Total 2175 ml Output Total 1385 ml Balance 790 ml Capillary Refill : Less Than 3 SecondsLess Than 3 Seconds General Appearance: Mild Distress Neck: Supple Respiratory: Decreased Breath Sounds Cardiovascular: Regular Rate, Rhythm Gastrointestinal: non tender, soft, abnormal bowel sounds, other (drains in place with serosanguinous drainage) Extremity: Non Tender, No Calf Tenderness Neurologic/Psychiatric: Other (drowsy) Skin: Warm/Dry Results Lab Laboratory Tests 10/13/19 05:37: White Blood Count 36.9*H, Red Blood Count 2.42L, Hemoglobin 7.1L, Hematocrit 22L , Mean Corpuscular Volume 89, Mean Corpuscular Hemoglobin 29, Mean Corpuscular Hemoglobin Concent 33, Red Cell Distribution Width 14.2, Platelet Count 36*L, Mean Platelet Volume 11.5H, Neutrophils (%) (Auto) 90H, Lymphocytes (%) (Auto) 4L, Monocytes (%) (Auto) 3, Eosinophils (%) (Auto) 1, Basophils (%) (Auto) 2, Neutrophils # (Auto) 33.1H, Lymphocytes # (Auto) 1.4, Monocytes # (Auto) 1.2H, Eosinophils # (Auto) 0.3, Basophils # (Auto) 0.8H, Sodium Level 146H, Potassium Level 3.3L, Chloride Level 116H, Carbon Dioxide Level 21, Anion Gap 9, Blood Urea Nitrogen 20H, Creatinine 0.74, Estimat Glomerular Filtration Rate > 60, BUN/Creatinine Ratio 27, Glucose Level 110H, Calcium Level 7.2L, Corrected Calcium 8.9, Phosphorus Level 2.0L, Magnesium Level 1.9, Total Bilirubin 0.9, Aspartate Amino Transf (AST/SGOT) 221H, Alanine Aminotransferase (ALT/SGPT) 429H , Alkaline Phosphatase 75, Total Protein 4.1L, Albumin 1.9L Microbiology 10/08/19 MRSA Screen - Final, Complete MRSA not isolated 10/08/19 Blood Culture - Preliminary, Resulted YEAST Assessment/Plan Assessment/Plan Assess & Plan/Chief Complaint 1. Sepsis--added Vancomycin yesterday, will DC zosyn and start maxipime, switch diflucan to eraxis due to fungemia on blood cultures and WBC count worsening 2. Small Bowel Obstruction--drains in place with serosanguinous drainage, having bowel movements and tolerating orals, CT scan repeated this morning shows fluid and free air but no obvious abscess 3. Thrombocytopenia--could be from sepsis or from heparin, hold heparin and giving 1u pRBCs today and then will recheck tomorrow 4. Bilateral Pleural Effusions and LLL Infiltrate--continue Vancomycin and add maxipime, lasix 20mg IV now x1 5. Hypokalemia--replace potassium 6. Loose Stools--check C. Diff Condition still very guarded Clinical Quality Measures DVT/VTE Risk/Contraindication: Risk Factor Score Per Nursin RFS Level Per Nursing on Admit: 4+=Very High TAWANA JULES DO Oct 13, 2019 10:30
--- NOTE | 2019-10-13 11:44 | NUR ---
BP Currently 94/[address] Coker notified ordered 500 cc Bolus LR
[2019-10-13] MEDS ORDERED: LACTATED RINGERS 1,000 ML IV ONE (11:59)
[2019-10-13] MEDS ORDERED: LACTATED RINGERS 1,000 ML IV SCH (12:00)
[2019-10-13] MEDS: CEFEPIME INJECTION 1,000 MG in WATER (STERILE) FOR INJECTION 10 ML IV SCH ×2 (12:19→17:09)
[2019-10-13] MEDS ORDERED: RT-ALBUTEROL SULF 2.5 MG/3 ML PRE-MIX VIAL INH PRN (12:30)
--- NOTE | 2019-10-13 13:04 | NUR ---
vitals post 500cc bolus. BP 152/[address] Coker notified. Thanked this RN , no additional orders at this time
[2019-10-13] MEDS: NS IV 500 ML 500 ML IV SCH (14:20)
--- NOTE | 2019-10-13 17:06 | Progress Note - Surgery ---
Subjective Date Seen by a Provider: Oct 13, 2019 Time Seen by a Provider: 11:00 Subjective/Events-last exam Patient alert. Had bm. WBC increased to 39 K. Patient answers simple questions, but does not seem to be completely oriented. No family at bedside. Antibiotics modified. Had ct chest abd pelvis: PROCEDURE: CT chest, abdomen, and pelvis without contrast. TECHNIQUE: Multiple contiguous axial images were obtained through the chest, abdomen, and pelvis without the use of intravenous contrast. Auto Exposure Controls were utilized during the CT exam to meet ALARA standards for radiation dose reduction. INDICATION: Nausea and vomiting. Ileus. Leukocytosis. COMPARISON: CT abdomen and pelvis with IV contrast 10/03/2019. CT chest without contrast 01/31/2019. FINDINGS: Examination is limited by motion. CT CHEST: Since the prior exam, there is new moderate left and tiny right pleural effusions. Consolidation with air bronchograms throughout much of the left lower lobe. Mild atelectasis in the right lung base. No pneumothorax. Left subclavian CVC tip in the upper SVC. Borderline heart size. No mediastinal or hilar lymphadenopathy is identified on this noncontrast exam. No acute osseous findings are identified. CT abdomen and pelvis: Interval midline surgical incision and placement of surgical drains with the tips in the pelvis. Small amount of free fluid in the abdomen. Scant free intraperitoneal air should be postoperative. Moderate amount of free fluid in the abdomen. Sigmoid bowel anastomosis was present on the prior exam. There is a new bowel anastomosis which may be related to the right of this which is new. Garzon catheter. The liver, gallbladder, pancreas, spleen, adrenals, left kidney and collecting systems are unremarkable. Stable simple cyst in the right kidney measuring up to 3.5 cm. No lymphadenopathy is identified. No acute osseous findings. IMPRESSION: 1. Examination limited by motion and lack of IV contrast. 2. Interval midline surgical incision and 2 drains with tips in the pelvis. There is also new bowel anastomosis in the pelvis. 3. Increasing free fluid within the abdomen. No organized fluid collections are identified on this noncontrast exam. Scant free intraperitoneal air should be postoperative. No dilated bowel loops. 4. Increasing bilateral pleural effusions, greater on the left. There is also dense consolidation in the left lower lobe with air bronchograms which could be due to pneumonitis versus atelectasis. Objective Exam Vital Signs Date Time Temp Pulse Resp B/P (MAP) Pulse Ox O2 Delivery O2 Flow Rate FiO2 10/13/19 16:13 37.4 88 16 113/79 94 High Flow N/C 5.00 10/13/19 14:58 High Flow N/C 4.00 10/13/19 14:30 37.2 97 18 120/66 96 High Flow N/C 5.00 10/13/19 14:02 37.2 99 18 129/75 96 High Flow N/C 5.00 10/13/19 13:02 89 152/88 (109) 10/13/19 12:32 96 10/13/19 12:17 37.3 98 95 36 10/13/19 11:28 37.3 98 16 94/70 (78) 95 High Flow N/C 4.00 10/13/19 09:24 95 High Flow N/C 4.00 10/13/19 08:02 37.7 53 16 129/82 (98) 97 High Flow N/C 5.00 10/13/19 08:00 Nasal Cannula 5.00 10/13/19 07:00 98 10/13/19 04:00 37.5 94 22 145/62 (89) 95 Nasal Cannula 5.00 10/13/19 01:00 87 10/13/19 00:00 37.1 79 22 121/75 (90) 98 Nasal Cannula 5.00 10/12/19 20:18 36.9 89 16 119/68 (85) 94 Nasal Cannula 5.00 10/12/19 20:00 Nasal Cannula 4.00 10/12/19 19:45 95 High Flow N/C 5.00 10/12/19 19:00 94 I & O 10/13/19 07:00 Intake Total 2175 ml Output Total 1385 ml Balance 790 ml Capillary Refill : Less Than 3 SecondsLess Than 3 Seconds General Appearance: Mild Distress HEENT: PERRL/EOMI Neck: Supple Respiratory: Decreased Breath Sounds, Other (slight upper respiratory congestion) Cardiovascular: Regular Rate, Rhythm Gastrointestinal: soft, tenderness (incisional), other (drains in place with serosanguinous drainage, open midline wound scant drainage) Extremity: Non Tender, No Calf Tenderness Neurologic/Psychiatric: Alert; No Oriented x3 Skin: Normal Color, Warm/Dry Lymphatic: No Adenopathy Results Lab Laboratory Tests 10/13/19 05:37: White Blood Count 36.9*H, Red Blood Count 2.42L, Hemoglobin 7.1L, Hematocrit 22L , Mean Corpuscular Volume 89, Mean Corpuscular Hemoglobin 29, Mean Corpuscular Hemoglobin Concent 33, Red Cell Distribution Width 14.2, Platelet Count 36*L, Mean Platelet Volume 11.5H, Neutrophils (%) (Auto) 90H, Lymphocytes (%) (Auto) 4L, Monocytes (%) (Auto) 3, Eosinophils (%) (Auto) 1, Basophils (%) (Auto) 2, Neutrophils # (Auto) 33.1H, Lymphocytes # (Auto) 1.4, Monocytes # (Auto) 1.2H, Eosinophils # (Auto) 0.3, Basophils # (Auto) 0.8H, Sodium Level 146H, Potassium Level 3.3L, Chloride Level 116H, Carbon Dioxide Level 21, Anion Gap 9, Blood Urea Nitrogen 20H, Creatinine 0.74, Estimat Glomerular Filtration Rate > 60, BUN/Creatinine Ratio 27, Glucose Level 110H, Calcium Level 7.2L, Corrected Calcium 8.9, Phosphorus Level 2.0L, Magnesium Level 1.9, Total Bilirubin 0.9, Aspartate Amino Transf (AST/SGOT) 221H, Alanine Aminotransferase (ALT/SGPT) 429H , Alkaline Phosphatase 75, Total Protein 4.1L, Albumin 1.9L Microbiology 10/13/19 C. difficile GDH Antigen & Toxins - Final, Complete 10/08/19 MRSA Screen - Final, Complete MRSA not isolated 10/08/19 Blood Culture - Preliminary, Resulted YEAST Assessment/Plan Assessment/Plan Assessment/Plan sepsis s/p exlap small bowel resection drains serosang and has increasing fluid in abdomen and and small amount of free air that i believe is postoperative open wound abdomen continue to change daily and prn antibiotics changed, repeat labs in am feel may be more related to respiratory than abdomen at this time, placed on MAT protocol Clinical Quality Measures DVT/VTE Risk/Contraindication: Risk Factor Score Per Nursin RFS Level Per Nursing on Admit: 4+=Very High DEBBIE WISE DO Oct 13, 2019 17:06
[2019-10-13] MEDS: ACETAMINOPHEN 325 MG TABLET PO PRN (17:08)
[2019-10-14] VITALS (7 sets, daily range): BP systolic 109–147; BP diastolic 67–78
[2019-10-14] MEDS: CEFEPIME INJECTION 1,000 MG in WATER (STERILE) FOR INJECTION 10 ML IV SCH ×4 (00:13→18:44)
[2019-10-14] MEDS: VANCOMYCIN 1250 MG/NS 250 ML IVPB IV SCH ×4 (02:15→15:11)
[2019-10-14] MEDS: RT-ALBUTEROL/IPRATROPIUM 3 ML (DUONEB) VIAL INH SCH ×4 (03:01→21:34)
[2019-10-14 06:08] LABS: EOSINOPHILS # (AUTO) 0.3 10^3/uL (0.0-0.3); EOSINOPHILS % (AUTO) 1 % (0-10); HEMATOCRIT 24 % (40-54); HEMOGLOBIN 7.9 G/DL (13.3-17.7); LYMPHOCYTES # (AUTO) 1.9 X 10^3 (1.0-4.0); LYMPHOCYTES % (AUTO) 5 % (12-44); MEAN CORPUSCULAR HEMOGLOBIN 29 PG (25-34); MEAN CORPUSCULAR HGB CONC 33 G/DL (32-36); MEAN CORPUSCULAR VOLUME 89 FL (80-99); MEAN PLATELET VOLUME 11.4 FL (7.4-10.4); RED CELL DISTRIBUTION WIDTH 14.7 % (10.0-14.5)
[2019-10-14 06:11] LABS: WHITE BLOOD COUNT 36.7 10^3/uL (4.3-11.0)
[2019-10-14 06:12] LABS: PLATELET COUNT 33 10^3/uL (130-400)
[2019-10-14 06:14] LABS: BASOPHILS # (AUTO) 0.7 10^3/uL (0.0-0.1); BASOPHILS % (AUTO) 2 % (0-10); MONOCYTES # (AUTO) 2.2 X 10^3 (0.0-1.0); MONOCYTES % (AUTO) 6 % (0-12); NEUTROPHILS # (AUTO) 31.7 X 10^3 (1.8-7.8); NEUTROPHILS % (AUTO) 86 % (42-75)
[2019-10-14 06:21] LABS: PHOSPHORUS 2.4 MG/DL (2.3-4.7)
[2019-10-14 06:23] LABS: MAGNESIUM 1.8 MG/DL (1.6-2.4)
[2019-10-14] MEDS: NS IV 500 ML 500 ML IV SCH ×2 (06:49→20:10)
--- NOTE | 2019-10-14 07:00 | NUR ---
Received critical laboratory value - WBC = 36.7; Platelet = 33. Notified Dr. Coker. No new orders, Dr. Coker will pass it along to Dr. Carpenter.
[2019-10-14] MEDS: ACETAMINOPHEN 325 MG TABLET PO PRN ×2 (07:35→15:11)
--- NOTE | 2019-10-14 07:46 | Progress Note ---
Subjective Subjective Date Seen by Provider: Oct 14, 2019 Time Seen by Provider: 07:25 Pt awake and alert with confusion still present. He was able to state his birthday, but not his location. 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 He denies any pain except some abdominal pain on his incision when he moves around sometimes. He does report feeling warm sometimes, but denies chills. Review of Systems General: No Chills; Fatigue HEENT: No Head Aches, No Visual Changes Pulmonary: No Dyspnea, No Cough Cardiovascular: No: Chest Pain, Palpitations Gastrointestinal: Abdominal Pain (Incisional); No: Vomiting, Diarrhea, Constipation Genitourinary: No Dysuria Musculoskeletal: No: back pain, leg pain Neurological: Confusion; No: Weakness, Numbness All Other Systems Reviewed All Other Systems Reviewed: Yes Objective Exam Vital Signs Vital Signs - First Documented 10/08/19 10/08/19 00:09 03:52 Temp 37.1 Pulse 98 Resp 20 B/P (MAP) 146/76 (99) Pulse Ox 98 O2 Delivery High Flow N/C O2 Flow Rate 4.00 FiO2 50 Capillary Refill : Less Than 3 SecondsLess Than 3 Seconds General Appearance: No Apparent Distress, Thin HEENT: PERRL/EOMI Neck: Supple Respiratory: Chest Non Tender, Decreased Breath Sounds, Other (slight upper respiratory congestion) Cardiovascular: Regular Rate, Rhythm Gastrointestinal: Normal Bowel Sounds, Soft, Tenderness (Bilateral lower flanks mild), Other (2 ASHLEY drains) Genital/Rectal: Other (Garzon catheter) Extremity: Non Tender, No Calf Tenderness Neurologic/Psychiatric: Alert; No Oriented x3 Skin: Normal Color, Warm/Dry Lymphatic: No Adenopathy Results Lab Laboratory Tests 10/13/19 18:58: Hemoglobin 8.1L 10/14/19 05:55: Hemoglobin 7.9L, White Blood Count 36.7*H, Red Blood Count 2.69L, Hematocrit 24L , Mean Corpuscular Volume 89, Mean Corpuscular Hemoglobin 29, Mean Corpuscular Hemoglobin Concent 33, Red Cell Distribution Width 14.7H, Platelet Count 33*L, Mean Platelet Volume 11.4H, Neutrophils (%) (Auto) 86H, Lymphocytes (%) (Auto) 5L, Monocytes (%) (Auto) 6, Eosinophils (%) (Auto) 1, Basophils (%) (Auto) 2, Neutrophils # (Auto) 31.7H, Lymphocytes # (Auto) 1.9, Monocytes # (Auto) 2.2H, Eosinophils # (Auto) 0.3, Basophils # (Auto) 0.7H, Phosphorus Level 2.4, Magnesium Level 1.8 Microbiology 10/13/19 C. difficile GDH Antigen & Toxins - Final, Complete 10/08/19 MRSA Screen - Final, Complete MRSA not isolated 10/08/19 Blood Culture - Preliminary, Resulted YEAST Assessment/Plan Assessment/Plan Assessment and Plan SMALL BOWEL OBSTRUCTION -CONTINUE NORMAL DIET, MONITOR BOWEL MOVEMENTS -IV FLUIDS -CONSULT DR LOFTON -S/P OPEN RESECTION -[address]- MONITOR OUTPUT, SEROSANGUINEOUS FLUID WITH SLIGHT BLOOD MIX CURRENTLY HYPOTENSION -CONTINUE IV FLUIDS -IMPROVED -MONITOR SEPSIS -CONTINUE VANCOMYCIN -CONTINUE CEFEPIME -CONTINUE ANIDULAFUNGIN -CONTINUE IV FLUIDS -WBC DECREASED TO 36.7 TODAY FROM 36.9 YESTERDAY, MONITOR PULMONARY EFFUSION / POSSIBLE PNEUMONIA -CONTINUE TO MONITOR, ENCOURAGE DEEP BREATHES, SPIROMETER AND OSCILLATORY PEP USAGE -CONSIDER LASIX 20MG BOLUS - ANEMIA -INCREASED HGB FROM 7.1 TO 7.9 WITH RBC TRANSFUSION YESTERDAY -MONITOR HGB/HCT HYPOCALCEMIA -IMPROVING, CORRECTED CALCIUM NORMAL AT 8.9 -MONITOR ORAL INTAKE ELEVATED LIVER ENZYMES -DECREASING AST:221, ALT: 429 -MONITOR ACUTE KIDNEY INJURY -IV FLUIDS MONITOR BUN/CR AND ELECTROLYTES -IMPROVING ELEVATED LIPASE -IMPROVED GASTROPARESIS HIATAL HERNIA Problems: (1) Nausea & vomiting (2) Gastroparesis (3) Elevated lipase (4) AFSHAN (acute kidney injury) (5) SBO (small bowel obstruction) Clinical Quality Measures DVT/VTE Risk/Contraindication: Risk Factor Score Per Nursin RFS Level Per Nursing on Admit: 4+=Very High Supervisory-Addendum Brief Verification & Attestation Participated in pt care: history, MDM, physical Personally performed: exam, history, MDM Care discussed with: Medical Student Procedures: n/a Results interpretation: Verified all documentation SMALL BOWEL OBSTRUCTION -IV FLUIDS -DEFER TO DR. ROLLY KennyS/Dina OPEN RESECTION -2 ASHLEY DRAINS PLACED- DRAINING SEROSANGUINEOUS FLUID MONITOR OUTPUT- DECREASED VOLUME HYPOTENSION - SEPSIS - ON VANCOMYCIN, CEFEPIME, ERAXIS, STARTED FLAGYL TODAY -CONTINUE IV FLUIDS -WBC INCREASED OVER THE WEEKEND HAS SLIGHTLY IMPROVED FROM 36.9 TO 36.7 - WOUND OF ABDOMEN CULTURED TODAY - DISCUSSED WITH DR. LOFTON TODAY- WILL OPEN WOUND AND PLACE WOUND VAC ON ABDOMINAL INCISION WOUND. PULMONARY EFFUSION -PERSISTENT IN LEFT BASE, GIVE LASIX 40MG IV TODAY, MONITOR CHEST XRAY TOMORROW. ANEMIA, THROMBOCYTOPENIA - STATUS POST TRANSFUSION OVER THE WEEKEND - HGB RELATIVELY STABLE AT 7.9 TODAY. -MONITOR HGB/HCT - REPEAT PLTS TOMORROW. - MAY HAVE THROMBOCYTOPENIA DUE TO HEPARIN - THIS HAS BEEN HELD SINCE 10/13/2019 HYPOCALCEMIA -IMPROVING -MONITOR ORAL INTAKE ELEVATED LIVER ENZYMES IMPROVED OFF OF TPN AND WITH TIME - AGAIN SUSPECT DUE TO THE FOLLOWING: -POSSIBLY DUE TO ISCHEMIC POSTOPERATIVE HEPATITIS, ACUTE KIDNEY INJURY -IV FLUIDS MONITOR BUN/CR AND ELECTROLYTES -IMPROVING GASTROPARESIS - DECREASED REGLAN ON MONDAY - MONITOR OUTPUT/GI SYMPTOMS. HIATAL HERNIA DELIRIUM - IMPROVED SLIGHTLY - CONTINUE TO MONITOR, WILL NEED TO CONSIDER PLACEMENT AT NURSING FACILITY TO MANAGE HIS WOUND VAC AND HIS ONGOING NEEDS. NILSA AGUIRRE MED STUD Oct 14, 2019 07:46 TITA LAINEZ MD Oct 14, 2019 09:00
--- NOTE | 2019-10-14 08:10 | Diagnostic Imaging Report ---
HISTORY: Nausea, vomiting and ileus. COMPARISON: 10/13/2019 TECHNIQUE: Frontal view of the chest. FINDINGS: There is moderate left pleural effusion with associated airspace opacities. Lung volumes are mildly low. The left subclavian line tip projects over the upper SVC. No pneumothorax is seen. There is chronic deformity of the left clavicle. IMPRESSION: 1. Stable moderate left pleural effusion with associated airspace opacities. No new consolidation is seen. Dictated by: Dictated on workstation # [id number]
[2019-10-14] MEDS ORDERED: FUROSEMIDE 40 MG/4 ML INJ (LASIX) IVP ONE (08:45)
[2019-10-14] MEDS: PANTOPRAZOLE 40 MG (PROTONIX) VIAL IV SCH (08:48)
[2019-10-14] MEDS: metroNIDAZOLE 500MG/100ML IVPB 100 ML IV SCH ×3 (08:48→20:37)
[2019-10-14] MEDS: METOCLOPRAMIDE INJ 10 MG/2 ML (REGLAN) IV SCH ×4 (08:48→20:36)
[2019-10-14] MEDS: ANIDULAFUNGIN INJECTION 100 MG in NS (IVPB) 100 ML IV SCH (09:11)
[2019-10-14 09:34] LABS: ALANINE AMINOTRANSFERASE 272 U/L (0-55); ALBUMIN 1.9 GM/DL (3.2-4.5); ALKALINE PHOSPHATASE 66 U/L (40-136); BILIRUBIN,TOTAL 0.8 MG/DL (0.1-1.0); BUN/CREATININE RATIO 28; CALCIUM 7.2 MG/DL (8.5-10.1); CARBON DIOXIDE 19 MMOL/L (21-32); CHLORIDE 119 MMOL/L (98-107); CREATININE SERUM 0.69 MG/DL (0.60-1.30); GFR ESTIMATED > 60; GLUCOSE 108 MG/DL (70-105); POTASSIUM 3.3 MMOL/L (3.6-5.0); SODIUM 147 MMOL/L (135-145); TOTAL PROTEIN 4.3 GM/DL (6.4-8.2)
--- NOTE | 2019-10-14 11:39 | Physical Therapy Daily Note ---
PT Daily Note-Current Subjective Patient remains confused and pulling off wrist identification. Telesitter in room. Mental Status Patient Orientation: Confused Attachments: Central Line, Oxygen, Garzon Catheter Transfers SCALE: Activities may be completed with or without assistive devices. 3-Hwsidghjmr-mnotksx completes the activity by him/herself with no assistance from a helper. 5-Set-up or Clean-up Assistance-helper sets up or cleans up; patient completes activity. Ericson assists only prior to or following the activity. 4-Supervision or Touching Assistance-helper provides verbal cues and/or touching/steadying and/or contact guard assistance as patient completes activity. Assistance may be provided throughout the activity or intermittently. 3-Partial/Moderate Assistance-helper does LESS THAN HALF the effort. Ericson lifts, holds or supports trunk or limbs, but provides less than half the effort. 2-Substantial/Maximal Assistance-helper does MORE THAN HALF the effort. Ericson lifts or holds trunk or limbs and provides more than half the effort. 1-Ngwpebdzd-omwldo does ALL the effort. Patient does none of the effort to complete the activity. Or, the assistance of 2 or more helpers is required for the patient to complete the activity. If activity was not attempted, code reason: 7-Patient Refused. 9-Not Applicable-not attempted and the patient did not perform the activity befo re the current illness, exacerbation or injury. 10-Not Attempted due to Environmental Limitations-(lack of equipment, weather re straints, etc.). 88-Not Attempted due to Medical Conditions or Safety Concerns. Roll Left & Right (QC): 3 Lying to Sitting/Side of Bed(Q: 3 Sit to Stand (QC): 3 Chair/Smr-qc-Sphra Xfer(QC): 3 Weight Bearing Right Lower Extremity: Right Weight Bearing/Tolerated Left Lower Extremity: Left Weight Bearing/Tolerated Gait Training Does the Patient Walk?: Yes Distance: 10' Walk 10 feet (QC): 2 Gait Assistive Device: FWW unsteady, needs assistance to advance FWW due to confusion Assessment Difficulty with following direction. Becomes agitated with request to participate with therapy. Confusion continues with telesitter present. PT to increase activity as patient allows and tolerates. PT Customer Experience Intern Goals Long-Term Goals PT Long-Term Goals Time Frame: Oct 18, 2019 Roll Left & Right (QC): 6 Sit to Lying (QC): 6 Lying-Sitting on Side/Bed(QC): 6 Sit to Stand (QC): 6 Chair/Her-cz-Uxidg Xfer(QC): 5 Toilet Transfer (QC): 5 Car Transfer (QC): 5 Does the Patient Walk: Yes Walk 10 feet (QC): 5 Walk 50ft with 2 Turns (QC): 5 Walk 150 ft (QC): 5 PT Plan Treatment/Plan Treatment Plan: Continue Plan of Care Treatment Duration: Oct 18, 2019 Frequency: 6 times per week Estimated Hrs Per Day: .25 hour per day Time/GCodes Time In: 1100 Time Out: 1113 Total Billed Treatment Time: 13 Total Billed Treatment 1 visit FA 13 min ANSLEY ARCE PT Oct 14, 2019 11:38
[2019-10-14] MEDS: D5 NS W/KCL 20 MEQ/L 1,000 ML IV SCH ×2 (12:48→20:37)
[2019-10-14] MEDS ORDERED: TROUGH ORDER-PHARMACY XX NR (13:00)
--- NOTE | 2019-10-14 13:47 | Occupational Therapy Eval ---
OT Evaluation-General/PLF Medical Diagnosis Admission Date Oct 07, 2019 at 21:00 Medical Diagnosis: Small Bowel Obstruction Onset Date: Oct 11, 2019 Therapy Diagnosis Therapy Diagnosis: Decreased ADL status Height/Weight Height (Feet): 6 Height (Inches): 1.00 Weight (Pounds): 170 Weight (Ounces): 0.0 Precautions Precautions/Isolations: Aspiration, Fall Prevention, Standard Precautions Weight Bear Status Weight Bearing Restriction: Weight Bearing/Tolerated Referral Physician: Jayden Referral Reason: Activity Tolerance, Self Care, Evaluation/Treatment, Strengthening/ROM Medical History Pertinent Medical History: Diverticulitis, GERD, HTN, Rheumatoid Arthritis Additional Medical History see nursing notes. Current History Abdominal distential 10/02. Small bowel obstruction with chronic edema; MARIE and long segment SB resection completed. Reviewed History: Yes Social History Home: Single Level Current Living Status: Spouse ADL-Prior Level of Function SCALE: Activities may be completed with or without assistive devices. 9-Mtkjqznntt-ringalh completes the activity by him/herself with no assistance from a helper. 5-Set-up or Clean-up Assistance-helper sets up or cleans up; patient completes activity. Mcleod assists only prior to or following the activity. 4-Supervision or Touching Assistance-helper provides verbal cues and/or touching/steadying and/or contact guard assistance as patient completes activity. Assistance may be provided throughout the activity or intermittently. 3-Partial/Moderate Assistance-helper does LESS THAN HALF the effort. Mcleod lifts, holds or supports trunk or limbs, but provides less than half the effort. 2-Substantial/Maximal Assistance-helper does MORE THAN HALF the effort. Mcleod lifts or holds trunk or limbs and provides more than half the effort. 7-Nwpbfdotx-bimuro does ALL the effort. Patient does none of the effort to complete the activity. Or, the assistance of 2 or more helpers is required for the patient to complete the activity. If activity was not attempted, code reason: 7-Patient Refused. 9-Not Applicable-not attempted and the patient did not perform the activity before the current illness, exacerbation or injury. 10-Not Attempted due to Environmental Limitations-(lack of equipment, weather restraints, etc.). 88-Not Attempted due to Medical Conditions or Safety Concerns. ADL PLOF Comments Pt was IND with I/ADL tasks. 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 Drive Self: Yes OT Current Status Subjective Pt seen in recliner, head set on back of chair. present. Pt alert/ awake, speaks softly/ minimally. Pt does not c/o pain when asked. Pt often refers to when asked eval questions. Mental Status/Objective Attachments: Drains, Garzon Catheter, Oxygen Current Glasses/Contacts: No Upper Extremity ROM WFL BUE Upper Extremity Coordination WFL BUE Upper Extremity Sensation WFL BUE Upper Extremity Strength WFL BUE ADL-Treatment Oral Hygiene (QC): 6 (based on presentation and clinical judgment pt would be IND while seated for oral hygiene.) On/Off Footwear (QC): 3 (Pt able to doff sock while seated in chair. Pt does not attempt to don when asked. Pt denies OT to place back on. Based on UE movement, pt would require min A for sock re-donning.) Other Treatments Pt seen in recliner. Pt's present. Pt educated on OT role. During evaluation questions, pt often refers to by looking/ pointing at her or shrugging shoulders. Pt asked to speak as often as can, pt speaks intermittently. Pt doffs sock, asked to redon and declines. Pt declines OT re- donning. Pt declines standing at this time, pt's eyes close. Pt asked if fatigued, pt nods and keeps eyes shut. pt educated on completing AROM throughout the day of UEs/ when increased energy. Pt agrees. Pt declines needs, call light in reach, pt remains in recliner. Education OT Patient Education: Correct positioning, Exercise program, Home exercise program, Purpose of tx/functional activities Teaching Recipient: Patient, Significant Other Teaching Methods: Demonstration, Discussion Response to Teaching: Verbalize Understanding, Return Demonstration, Reinforcement Needed OT News Correspondent Goals News Correspondent Goals Time Frame: Oct 21, 2019 Eating (QC): 6 Oral Hygiene (QC): 6 Toileting Hygiene (QC): 6 Shower/Bathe Self (QC): 5 Upper Body Dressing (QC): 6 Lower Body Dressing (QC): 4 On/Off Footwear (QC): 6 Additional Goals: 1-Demonstrate ADL Tasks, 2-Verbalize Understanding, 3- ImproveStrength/Wicho 1=Demonstrate adherence to instructed precautions during ADL tasks. 2=Patient will verbalize/demonstrate understanding of assistive devices/modifications for ADL. 3=Patient will improve strength/tolerance for activity to enable patient to perform ADL's. OT Education/Plan Problem List/Assessment Assessment: Decreased Activ Tolerance, Decreased UE Strength, Impaired Funct Balance, Impaired I ADL's, Impaired Self-Care Skills Discharge Recommendations Plan/Recommendations: Continue POC Therapy Discharge Recommendati: Home & Family, Post Acute OT Equpiment Recommendations-D/C: Rails on Tub/Shower, Department Chairperson Treatment Plan/Plan of Care Treatment,Training & Education: Yes Patient would benefit from OT for education, treatment and training to promote independence in ADL's, mobility, safety and/or upper extremity function for ADL's. Plan of Care: ADL Retraining, Caregiver Training, Functional Mobility, Group Exercise/Act as Ind, UE Funct Exercise/Act Treatment Duration: Oct 21, 2019 Frequency: 5 times per week Estimated Hrs Per Day: .25 hour per day Agreement: Yes Rehab Potential: Good Time/GCodes Start Time: 11:53 Stop Time: 12:05 Total Time Billed (hr/min): 12 Billed Treatment Time JUNITO Hensley (12) MARIA GUADALUPE FARRELL OTR Oct 14, 2019 13:47
--- NOTE | 2019-10-14 14:05 | NUR ---
CM/SS: Visited with pt and spouse as to plan for discharge Plan: Undetermined at this time, pt is from home Summary: Pt is getting ready to eat his lunch. Spouse is encouraging him to eat or she will feed him Pt does not like that and gives his the finger and looks at her. Spouse just looks at pt. Pt reports he is doing ok to day. They both share that they may have to get a wound vac. They are encouraged to take things one day at a time and as times comes to discharge, this worker will assist them in the process. They verbalize understanding. They thank this worker for the visit. This worker will follow up.
--- NOTE | 2019-10-14 15:09 | Progress Note ---
Subjective Date Seen by a Provider: Oct 14, 2019 Time Seen by a Provider: 15:00 Subjective/Events-last exam doing ok. leukocytosis. redness/fluctuance upper pole midline incision. no fever/chills. Objective Exam Vital Signs Date Time Temp Pulse Resp B/P (MAP) Pulse Ox O2 Delivery O2 Flow Rate FiO2 10/14/19 14:44 95 High Flow N/C 2.00 10/14/19 13:13 37.0 51 97 28 10/14/19 11:43 37.0 51 18 117/71 (86) 97 High Flow N/C 2.00 10/14/19 09:07 95 High Flow N/C 2.00 10/14/19 08:44 37.2 90 16 140/74 (96) 97 High Flow N/C 2.00 10/14/19 08:00 High Flow N/C 2.00 10/14/19 07:35 37.7 10/14/19 06:35 92 10/14/19 03:50 37.7 82 20 147/78 (101) 93 High Flow N/C 2.00 10/14/19 03:01 94 High Flow N/C 3.00 10/14/19 01:00 93 10/14/19 00:05 37.0 83 6 130/78 (95) 96 High Flow N/C 4.00 10/13/19 20:00 High Flow N/C 3.00 10/13/19 20:00 36.8 86 22 126/77 (93) 95 High Flow N/C 4.00 10/13/19 19:37 95 High Flow N/C 4.00 10/13/19 19:00 84 10/13/19 17:08 37.4 10/13/19 16:13 37.4 88 16 113/79 94 High Flow N/C 5.00 10/13/19 16:00 38.6 93 22 129/78 (95) 98 High Flow N/C 4.00 I & O 10/14/19 07:00 Intake Total 870 ml Output Total 2770 ml Balance -1900 ml Capillary Refill : Less Than 3 SecondsLess Than 3 Seconds General Appearance: No Apparent Distress HEENT: PERRL/EOMI Neck: Full Range of Motion Respiratory: Chest Non Tender, Decreased Breath Sounds Cardiovascular: Regular Rate, Rhythm Gastrointestinal: soft, tenderness, other (redness/erythema/fluctuance upper midline incision.) Extremity: Normal Capillary Refill Neurologic/Psychiatric: Alert, Oriented x3 Skin: Normal Color Lymphatic: No Adenopathy Results Lab Laboratory Tests 10/13/19 18:58: Hemoglobin 8.1L 10/14/19 05:55: Hemoglobin 7.9L, White Blood Count 36.7*H, Red Blood Count 2.69L, Hematocrit 24L , Mean Corpuscular Volume 89, Mean Corpuscular Hemoglobin 29, Mean Corpuscular Hemoglobin Concent 33, Red Cell Distribution Width 14.7H, Platelet Count 33*L, Mean Platelet Volume 11.4H, Neutrophils (%) (Auto) 86H, Lymphocytes (%) (Auto) 5L, Monocytes (%) (Auto) 6, Eosinophils (%) (Auto) 1, Basophils (%) (Auto) 2, Neutrophils # (Auto) 31.7H, Lymphocytes # (Auto) 1.9, Monocytes # (Auto) 2.2H, Eosinophils # (Auto) 0.3, Basophils # (Auto) 0.7H, Phosphorus Level 2.4, Magnesium Level 1.8 10/14/19 09:00: Sodium Level 147H, Potassium Level 3.3L, Chloride Level 119H, Carbon Dioxide Level 19L, Anion Gap 9, Blood Urea Nitrogen 19H, Creatinine 0.69, Estimat Glomerular Filtration Rate > 60, BUN/Creatinine Ratio 28, Glucose Level 108H, Calcium Level 7.2L, Corrected Calcium 8.9, Total Bilirubin 0.8, Aspartate Amino Transf (AST/SGOT) 130H, Alanine Aminotransferase (ALT/SGPT) 272H, Alkaline Phosphatase 66, Total Protein 4.3L, Albumin 1.9L 10/14/19 11:26: Lab Scanned Report Transfusion Reaction Form 10/14/19 14:00: Vancomycin Level Trough 11.9 Microbiology 10/13/19 C. difficile GDH Antigen & Toxins - Final, Complete 10/08/19 MRSA Screen - Final, Complete MRSA not isolated 10/08/19 Blood Culture - Preliminary, Resulted YEAST Assessment/Plan Assessment/Plan Assess & Plan/Chief Complaint acute on chronic SBO with ischemic changes ileum s/p expl lap, MARIE and long segment SB resection. renal failure. increase IV fluids. improving ICU psychosis. haldol 2mg. cont IV abx. add antifungal. having bowel fxn. advance to dys3 diet. wound infxn, will open wound and apply vac Clinical Quality Measures DVT/VTE Risk/Contraindication: Risk Factor Score Per Nursin RFS Level Per Nursing on Admit: 4+=Very High ROMAIN LOFTON MD Oct 14, 2019 15:09
[2019-10-14] MEDS: oxyCODONE/APAP 7.5-325 MG (PERCOCET 7.5) TABLET PO PRN (15:22)
[2019-10-14] MEDS: MELATONIN 10 MG TABLET PO SCH (20:35)
[2019-10-14] MEDS: HALOPERIDOL 5 MG/ML (HALDOL) VIAL IM PRN (20:37)
[2019-10-15] VITALS: BP 143/71
[2019-10-15] MEDS: CEFEPIME INJECTION 1,000 MG in WATER (STERILE) FOR INJECTION 10 ML IV SCH ×4 (01:14→17:34)
[2019-10-15] MEDS: VANCOMYCIN 1250 MG/NS 250 ML IVPB IV SCH ×4 (01:15→13:37)
[2019-10-15 04:10] VITALS: BP 151/80
[2019-10-15 04:51] LABS: EOSINOPHILS # (AUTO) 0.2 10^3/uL (0.0-0.3); EOSINOPHILS % (AUTO) 1 % (0-10); HEMATOCRIT 22 % (40-54); HEMOGLOBIN 7.7 G/DL (13.3-17.7); LYMPHOCYTES # (AUTO) 1.6 X 10^3 (1.0-4.0); LYMPHOCYTES % (AUTO) 6 % (12-44); MEAN CORPUSCULAR HEMOGLOBIN 31 PG (25-34); MEAN CORPUSCULAR HGB CONC 35 G/DL (32-36); MEAN CORPUSCULAR VOLUME 89 FL (80-99); MEAN PLATELET VOLUME 12.2 FL (7.4-10.4); MONOCYTES # (AUTO) 0.9 X 10^3 (0.0-1.0); MONOCYTES % (AUTO) 3 % (0-12); RED CELL DISTRIBUTION WIDTH 14.8 % (10.0-14.5); WHITE BLOOD COUNT 28.3 10^3/uL (4.3-11.0)
[2019-10-15 04:52] LABS: ALBUMIN 1.9 GM/DL (3.2-4.5); CHLORIDE 118 MMOL/L (98-107); POTASSIUM 3.3 MMOL/L (3.6-5.0); SODIUM 145 MMOL/L (135-145)
[2019-10-15 04:53] LABS: CALCIUM 7.3 MG/DL (8.5-10.1)
[2019-10-15 04:55] LABS: GLUCOSE 95 MG/DL (70-105); TOTAL PROTEIN 4.4 GM/DL (6.4-8.2)
[2019-10-15 04:56] LABS: BASOPHILS % (AUTO) 2 % (0-10); CARBON DIOXIDE 19 MMOL/L (21-32); NEUTROPHILS % (AUTO) 88 % (42-75); PLATELET COUNT 36 10^3/uL (130-400)
[2019-10-15 04:57] LABS: BASOPHILS # (AUTO) 0.8 10^3/uL (0.0-0.1); BILIRUBIN,TOTAL 0.7 MG/DL (0.1-1.0); NEUTROPHILS # (AUTO) 24.9 X 10^3 (1.8-7.8)
[2019-10-15 04:58] LABS: ALKALINE PHOSPHATASE 67 U/L (40-136); CREATININE SERUM 0.73 MG/DL (0.60-1.30); GFR ESTIMATED > 60; PHOSPHORUS 2.9 MG/DL (2.3-4.7)
[2019-10-15 04:59] LABS: BUN/CREATININE RATIO 30
[2019-10-15] MEDS: RT-ALBUTEROL/IPRATROPIUM 3 ML (DUONEB) VIAL INH SCH ×4 (05:00→21:18)
[2019-10-15 05:01] LABS: ALANINE AMINOTRANSFERASE 223 U/L (0-55); MAGNESIUM 1.8 MG/DL (1.6-2.4)
[2019-10-15] MEDS: metroNIDAZOLE 500MG/100ML IVPB 100 ML IV SCH ×3 (06:05→22:20)
[2019-10-15] MEDS: D5 NS W/KCL 20 MEQ/L 1,000 ML IV SCH ×3 (06:08→22:26)
--- NOTE | 2019-10-15 07:39 | Progress Note ---
Subjective Subjective Date Seen by Provider: Oct 15, 2019 Time Seen by Provider: 07:18 Pt awake and alert. He does not report any pain, but is slightly tender along incision and on left lower flank area. He denies any nausea, vomiting, headaches, fevers, chills, or dizziness. He does have decreased appetite. Dr Anthony opened his incision yesterday, but the pt does not really understand what has been happening due to confusion. Review of Systems General: No Chills; Fatigue, Other (thin) HEENT: No Head Aches, No Visual Changes Pulmonary: No Dyspnea, No Cough Cardiovascular: No: Chest Pain, Palpitations Gastrointestinal: Abdominal Pain (Incisional); No: Vomiting, Diarrhea, Constipation Genitourinary: No Dysuria Musculoskeletal: No: back pain, leg pain Neurological: Weakness, Confusion; No: Numbness All Other Systems Reviewed All Other Systems Reviewed: Yes Objective Exam Vital Signs Vital Signs - First Documented 10/09/19 10/09/19 10/13/19 00:00 00:10 12:17 Temp 36.2 Pulse 121 Resp 31 B/P (MAP) 110/85 (93) Pulse Ox 100 O2 Delivery Nasal Cannula O2 Flow Rate 2.00 FiO2 36 Capillary Refill : Less Than 3 SecondsLess Than 3 Seconds General Appearance: No Apparent Distress, Thin HEENT: PERRL/EOMI Neck: Full Range of Motion Respiratory: Chest Non Tender, Decreased Breath Sounds Cardiovascular: Regular Rate, Rhythm, Normal Peripheral Pulses Gastrointestinal: Normal Bowel Sounds, Soft, Tenderness (Bilateral lower flanks mild), Other (2 ASHLEY drains, open abdominal wound) Genital/Rectal: Other (Garzon catheter) Extremity: Normal Capillary Refill Neurologic/Psychiatric: Alert, Other (Confusion, oriented to person, not place or time) Skin: Normal Color Lymphatic: No Adenopathy Results Lab Laboratory Tests 10/14/19 09:00: Sodium Level 147H, Potassium Level 3.3L, Chloride Level 119H, Carbon Dioxide Level 19L, Anion Gap 9, Blood Urea Nitrogen 19H, Creatinine 0.69, Estimat Glomerular Filtration Rate > 60, BUN/Creatinine Ratio 28, Glucose Level 108H, Calcium Level 7.2L, Corrected Calcium 8.9, Total Bilirubin 0.8, Aspartate Amino Transf (AST/SGOT) 130H, Alanine Aminotransferase (ALT/SGPT) 272H, Alkaline Phosphatase 66, Total Protein 4.3L, Albumin 1.9L 10/14/19 11:26: Lab Scanned Report Transfusion Reaction Form 10/14/19 14:00: Vancomycin Level Trough 11.9 10/15/19 04:30: Sodium Level 145, Potassium Level 3.3L, Chloride Level 118H, Carbon Dioxide Level 19L, Anion Gap 8, Blood Urea Nitrogen 22H, Creatinine 0.73, Estimat Glomer ular Filtration Rate > 60, BUN/Creatinine Ratio 30, Glucose Level 95, Calcium Level 7.3L, Corrected Calcium 9.0, Total Bilirubin 0.7, Aspartate Amino Transf (AST/SGOT) 130H, Alanine Aminotransferase (ALT/SGPT) 223H, Alkaline Phosphatase 67, Total Protein 4.4L, Albumin 1.9L, White Blood Count 28.3H, Red Blood Count 2.45L, Hemoglobin 7.7L, Hematocrit 22L, Mean Corpuscular Volume 89, Mean Corpuscular Hemoglobin 31, Mean Corpuscular Hemoglobin Concent 35, Red Cell Distribution Width 14.8H, Platelet Count 36*L, Mean Platelet Volume 12.2H, Neutrophils (%) (Auto) 88H, Lymphocytes (%) (Auto) 6L, Monocytes (%) (Auto) 3, Eosinophils (%) (Auto) 1, Basophils (%) (Auto) 2, Neutrophils # (Auto) 24.9H, Lymphocytes # (Auto) 1.6, Monocytes # (Auto) 0.9, Eosinophils # (Auto) 0.2, Basophils # (Auto) 0.8H, Phosphorus Level 2.9, Magnesium Level 1.8 Microbiology 10/13/19 C. difficile GDH Antigen & Toxins - Final, Complete 10/08/19 MRSA Screen - Final, Complete MRSA not isolated 10/08/19 Blood Culture - Preliminary, Resulted Patrizia glabrata Assessment/Plan Assessment/Plan Assessment and Plan SMALL BOWEL OBSTRUCTION -CONTINUE NORMAL DIET, MONITOR BOWEL MOVEMENTS -IV FLUIDS -CONSULT DR ANTHONY -S/P OPEN RESECTION -[address]- MONITOR OUTPUT, SEROSANGUINEOUS FLUID WITH SLIGHT BLOOD MIX CURRENTLY HYPOTENSION -CONTINUE IV FLUIDS -IMPROVED -MONITOR SEPSIS/ LEUKOCYTOSIS -CONTINUE VANCOMYCIN, CEFEPIME, ANIDULAFUNGIN, IV FLUIDS -ABDOMINAL INCISION CULTURED YESTERDAY -DR ANTHONY OPENED INCISION AND APPLIED A WOUND VAC YESTERDAY -WBC DECREASED TO 28.3 TODAY FROM 26.7 YESTERDAY, -MONITOR PULMONARY EFFUSION / POSSIBLE PNEUMONIA -CONTINUE TO MONITOR, ENCOURAGE DEEP BREATHES, SPIROMETER AND OSCILLATORY PEP USAGE -CONSIDER LASIX 20MG BOLUS - THROMBOCYTOPENIA -POSSIBLY DUE TO HEPARIN INDUCED THROMBOCYTOPENIA -STOPPED HEPARIN ON 10/11, PLATELETS REMAIN LOW -CONSIDER STARTING ARGATROBAN TO PREVENT THROMBOSIS/ DVT PROPHYLAXIS -MONITOR FOR BLEEDING -MONITOR PLATELETS- SLIGHT INCREASE TODAY TO 36 FROM 33 YESTERDAY ANEMIA -HGB REMAINS LOW BUT STABLE IN 7-8 RANGE -MONITOR HGB/HCT HYPOCALCEMIA -IMPROVING -MONITOR ORAL INTAKE ELEVATED LIVER ENZYMES -IMPROVING -MONITOR ACUTE KIDNEY INJURY -IV FLUIDS MONITOR BUN/CR AND ELECTROLYTES -IMPROVING ELEVATED LIPASE -IMPROVED GASTROPARESIS HIATAL HERNIA Problems: (1) Nausea & vomiting (2) Gastroparesis (3) Elevated lipase (4) AFSHAN (acute kidney injury) (5) SBO (small bowel obstruction) Clinical Quality Measures DVT/VTE Risk/Contraindication: Risk Factor Score Per Nursin RFS Level Per Nursing on Admit: 4+=Very High Supervisory-Addendum Brief Verification & Attestation Participated in pt care: history, MDM, physical Personally performed: exam, history, MDM, supervision of care Care discussed with: Medical Student Procedures: n/a Results interpretation: Verified all documentation AGREE WITH MEDICAL STUDENT NOTE DOCUMENTED, - SEE MY ASSESSMENT AND PLAN DOCUMENTED BELOW SMALL BOWEL OBSTRUCTION -IV FLUIDS -DEFER TO DR. ANTHONY -S/P OPEN RESECTION -2 ASHLEY DRAINS PLACED- DRAINING SEROSANGUINEOUS FLUID MONITOR OUTPUT- DECREASED VOLUME HYPOTENSION - IMPROVED - BP ELEVATING - MONITOR SYMPTOMS - WILL RESTART ANTIHYPERTENSIVES IF NEEDED. SEPSIS - ON VANCOMYCIN, CEFEPIME, ERAXIS, STARTED FLAGYL TODAY -CONTINUE IV FLUIDS -WBC INCREASED OVER THE WEEKEND HAS SLIGHTLY IMPROVED FROM 36.9 TO 36.7 ON MONDAY AND DOWN TO 28 TODAY. - WOUND OF ABDOMEN CULTURED MONDAY - DISCUSSED WITH DR. ANTHONY MONDAY- WILL OPEN WOUND AND PLACE WOUND VAC ON ABDOMINAL INCISION WOUND. - WOUND VAC DID NOT START YESTERDAY - WOUND CARE NURSE UP TO FLOOR TODAY AND WILL PLACE VAC ON PATIENT THIS MORNING. - WILL SWING PATIENT TOMORROW AFTER WOUND VAC IS PLACED. PULMONARY EFFUSION -PULMONARY STATUS IMPROVED TODAY ANEMIA, THROMBOCYTOPENIA - STATUS POST TRANSFUSION OVER THE WEEKEND - HGB RELATIVELY STABLE AT 7.7 TODAY. -MONITOR HGB/HCT - REPEAT PLTS TOMORROW. - STABLE OVERNIGHT - MAY HAVE THROMBOCYTOPENIA DUE TO HEPARIN - THIS HAS BEEN HELD SINCE 10/13/2019 - CHECK IRON STUDIES - IRON STORES HYPOCALCEMIA -IMPROVING -MONITOR ORAL INTAKE ELEVATED LIVER ENZYMES IMPROVED OFF OF TPN AND WITH TIME - AGAIN SUSPECT DUE TO THE FOLLOWING: -POSSIBLY DUE TO ISCHEMIC POSTOPERATIVE HEPATITIS, ACUTE KIDNEY INJURY -IV FLUIDS MONITOR BUN/CR AND ELECTROLYTES -IMPROVING GASTROPARESIS - DECREASED REGLAN ON MONDAY - MONITOR OUTPUT/GI SYMPTOMS. HIATAL HERNIA DELIRIUM - IMPROVED SLIGHTLY - CONTINUE TO MONITOR, WILL NEED TO CONSIDER PLACEMENT AT NURSING FACILITY TO MANAGE HIS WOUND VAC AND HIS ONGOING NEEDS. DECREASED APPETITE - START ON MARINOL TODAY HYPOKALEMIA - GIVE DOSE OF POTASSIUM TODAY NILSA AGUIRRE MED STUD Oct 15, 2019 07:39 TITA LAINEZ MD Oct 15, 2019 09:34
[2019-10-15 07:46] VITALS: BP 146/78
[2019-10-15] MEDS: ANIDULAFUNGIN INJECTION 100 MG in NS (IVPB) 100 ML IV SCH (08:55)
[2019-10-15] MEDS: METOCLOPRAMIDE INJ 10 MG/2 ML (REGLAN) IV SCH ×4 (08:55→21:12)
[2019-10-15] MEDS: PANTOPRAZOLE 40 MG (PROTONIX) VIAL IV SCH (08:55)
[2019-10-15] MEDS ORDERED: KCL 20 MEQ TAB (K-DUR) PO ONE (09:30)
--- NOTE | 2019-10-15 10:04 | Occupational Ther Daily Note ---
OT Current Status-Daily Note Subjective Pt laying in bed, telesitter present. OT introduced self as being part of the therapy team stating she was here for therapy. OT then asked pt where he was and he replied "Well I better be at home". Pt required moderate encouragement to participate in OT tx on this date. Mental Status/Objective Patient Orientation: Confused ADL-Treatment Therapy Code Descriptions/Definitions Functional Eva Measure: 0=Not Assessed/NA 4=Minimal Assistance 1=Total Assistance 5=Supervision or Setup 2=Maximal Assistance 6=Modified Eva 3=Moderate Assistance 7=Complete IndependenceSCALE: Activities may be completed with or without assistive devices. 7-Ntgyislqlo-ebzxpwz completes the activity by him/herself with no assistance from a helper. 5-Set-up or Clean-up Assistance-helper sets up or cleans up; patient completes activity. [place] assists only prior to or following the activity. 4-Supervision or Touching Assistance-helper provides verbal cues and/or touching/steadying and/or contact guard assistance as patient completes activity. Assistance may be provided throughout the activity or intermittently. 3-Partial/Moderate Assistance-helper does LESS THAN HALF the effort. [place] lifts, holds or supports trunk or limbs, but provides less than half the effort. 2-Substantial/Maximal Assistance-helper does MORE THAN HALF the effort. [place] lifts or holds trunk or limbs and provides more than half the effort. 7-Imcucoqez-cdqvjt does ALL the effort. Patient does none of the effort to complete the activity. Or, the assistance of 2 or more helpers is required for the patient to complete the activity. If activity was not attempted, code reason: 7-Patient Refused. 9-Not Applicable-not attempted and the patient did not perform the activity before the current illness, exacerbation or injury. 10-Not Attempted due to Environmental Limitations-(lack of equipment, weather restraints, etc.). 88-Not Attempted due to Medical Conditions or Safety Concerns. Other Treatment Pt laying in bed, OT introduced self as being part of the therapy team. Pt did not respond to OT. OT then asked pt where he was, and he replied that he better be at home. OT asked pt if he lived alone, he replied that he lives with his and she is around here somewhere. OT educated pt on purpose of OT tx, stating she would like to perform UE exercises with him, feliciano'ing shoulder flexion. Pt did not initiate exercise. OT then gave tactile cue to pt's right arm stating "let's start with this arm". He replied "you want me to do them now?". OT stated yes. Pt then rolled his eyes at OT before completing x15 reps shoulder flexion with RUE, then x15 reps LUE. Pt crossed his hands behind his back leaning back into the bed. OT informed pt she had another exercise she would like pt to complete demo'ing bicep curls. Pt removed left hand from behind his head and reached forward to his cup, he brought the cup to his mouth and took a drink, coughing after he took a drink. OT asked pt if he remembered what OT asked pt to do, he replied "bicep curls". OT instructed pt to rest elbows on the bed in order to complete exercise. Pt completed x20 reps elbow flexion/extension BUE. Pt declined further occupational therapy/exercises at this time. Pt reached for his phone on the tray table and began using his phone. OT asked pt if he needed anything, pt did not reply and continued looking and using his phone. OT informed pt his call light was by his side and directed him to the button he should press if he needs anything, pt again continued to use his phone without acknowledging OT. Post OT tx, pt laying in bed, call light in reach, all needs met and telesitter present. Education OT Patient Education: Correct positioning, Exercise program, Progress toward Goal/Update tx plan, Purpose of tx/functional activities Teaching Recipient: Patient Teaching Methods: Discussion Response to Teaching: Verbalize Understanding OT Dentofacial Orthopedics Dentist Goals Mcc Goals Time Frame: Oct 21, 2019 Eating (QC): 6 Oral Hygiene (QC): 6 Toileting Hygiene (QC): 6 Shower/Bathe Self (QC): 5 Upper Body Dressing (QC): 6 Lower Body Dressing (QC): 4 On/Off Footwear (QC): 6 Additional Goals: 1-Demonstrate ADL Tasks, 2-Verbalize Understanding, 3- ImproveStrength/[place] 1=Demonstrate adherence to instructed precautions during ADL tasks. 2=Patient will verbalize/demonstrate understanding of assistive devices/modifications for ADL. 3=Patient will improve strength/tolerance for activity to enable patient to perform ADL's. OT Education/Plan Problem List/Assessment Assessment: Decreased Activ Tolerance, Decreased UE Strength, Impaired I ADL's, Impaired Self-Care Skills Discharge Recommendations Plan/Recommendations: Continue POC Treatment Plan/Plan of Care Patient would benefit from OT for education, treatment and training to promote independence in ADL's, mobility, safety and/or upper extremity function for ADL's. Plan of Care: ADL Retraining, Caregiver Training, Functional Mobility, Group Exercise/Act as Ind, UE Funct Exercise/Act Treatment Duration: Oct 21, 2019 Frequency: 5 times per week Estimated Hrs Per Day: .25 hour per day Agreement: Yes Rehab Potential: Good Time/GCodes Start Time: 09:20 Stop Time: 09:28 Total Time Billed (hr/min): 8 Billed Treatment Time 1, EX INES MURPHY OT Oct 15, 2019 10:04
--- NOTE | 2019-10-15 11:07 | Physical Therapy Daily Note ---
PT Daily Note-Current Subjective Patient is in bed pre tx, agrees reluctantly to PT, says "i don't care", says he has no pain. Appearance Patient in bed post tx with nurse call, phone, tray, all needs met, bed alarm on, telesitter in room. Mental Status Patient Orientation: Person, Confused, Unable to Assess (patient communicates poorly) Attachments: Oxygen, Drains, Garzon Catheter, IV Oxygen was off patient at the beginning of tx, he refuses to wear it, was able to ambulate without it, nurse notified that patient does not have it on after tx. Transfers SCALE: Activities may be completed with or without assistive devices. 3-Xizfdwxxjl-gionsku completes the activity by him/herself with no assistance from a helper. 5-Set-up or Clean-up Assistance-helper sets up or cleans up; patient completes activity. [place] assists only prior to or following the activity. 4-Supervision or Touching Assistance-helper provides verbal cues and/or touching/steadying and/or contact guard assistance as patient completes activity. Assistance may be provided throughout the activity or intermittently. 3-Partial/Moderate Assistance-helper does LESS THAN HALF the effort. [place] lifts, holds or supports trunk or limbs, but provides less than half the effort. 2-Substantial/Maximal Assistance-helper does MORE THAN HALF the effort. [place] lifts or holds trunk or limbs and provides more than half the effort. 7-Rdxasezbe-eahakg does ALL the effort. Patient does none of the effort to complete the activity. Or, the assistance of 2 or more helpers is required for the patient to complete the activity. If activity was not attempted, code reason: 7-Patient Refused. 9-Not Applicable-not attempted and the patient did not perform the activity before the current illness, exacerbation or injury. 10-Not Attempted due to Environmental Limitations-(lack of equipment, weather restraints, etc.). 88-Not Attempted due to Medical Conditions or Safety Concerns. Roll Left & Right (QC): 6 Sit to Lying (QC): 4 Lying to Sitting/Side of Bed(Q: 3 Sit to Stand (QC): 4 Chair/Sqi-fv-Mcdgq Xfer(QC): 4 min assist for supine to sit, CGA for sit to stand and transfers Weight Bearing Right Lower Extremity: Right Weight Bearing/Tolerated Left Lower Extremity: Left Weight Bearing/Tolerated Gait Training Distance: 50' Walk 10 feet (QC): 4 Walk 50 ft with 2 Turns(QC): 4 Gait Persons Needed: 1 Gait Assistive Device: FWW CGA, unsteady, cues for direction and safety but patient follows them poorly, impulsive, agitated, patient gets agitated when cued for safety or direction. After getting back to the bed patient tries to enter the bed front first and lay on his belly, patient is warned that this will hurt because of his surgery, gets agitated, lays on his side and then rolls to his back. Treatments bed mobility and transfers, ambulation Assessment Current Status: Fair Progress improved ambulation but patient follows directions poorly and has poor safety awareness due to agitation and confusion PT Planer Operator / Grader Goals Planer Operator / Grader Goals PT Planer Operator / Grader Goals Time Frame: Oct 18, 2019 Roll Left & Right (QC): 6 Sit to Lying (QC): 6 Lying-Sitting on Side/Bed(QC): 6 Sit to Stand (QC): 6 Chair/Ooy-mt-Gelgf Xfer(QC): 5 Toilet Transfer (QC): 5 Car Transfer (QC): 5 Does the Patient Walk: Yes Walk 10 feet (QC): 5 Walk 50ft with 2 Turns (QC): 5 Walk 150 ft (QC): 5 PT Plan Problem List Problem List: Activity Tolerance, Functional Strength, Safety, Balance, Gait, Transfer, Bed Mobility Treatment/Plan Treatment Plan: Continue Plan of Care Treatment Plan: Bed Mobility, Education, Functional Activity [place], Functional Strength, Gait, Safety, Therapeutic Exercise, Transfers Treatment Duration: Oct 18, 2019 Frequency: 6 times per week Estimated Hrs Per Day: .25 hour per day Safety Risks/Education Patient Education: Gait Training, Transfer Techniques, Correct Positioning, Safety Issues Teaching Recipient: Patient Teaching Methods: Demonstration, Discussion Response to Teaching: Reinforcement Needed Time/GCodes Time In: 1038 Time Out: 1051 Total Billed Treatment Time: 13 Total Billed Treatment 1 visit GT 13' ANNEMARIE CROFT PT Oct 15, 2019 11:07
[2019-10-15] MEDS: DRONABINOL 2.5 MG (MARINOL) CAP PO SCH ×2 (11:34→16:44)
--- NOTE | 2019-10-15 11:38 | NUR ---
Swing Bed Note: Qualifies for swing bed to likely begin on 10/16/[address] if continues make improvements[address] Dr[address] Carpenter reports that he will have a wound vac placed et will need to continue at the hospital at this time for continued healing et IV abx (s/p small bowel resection with open midline abdominal wound). Pt will also benefit from continued Physical et Occupational therapies for ultimate goal of returning home with his at discharge. The patient is very quiet et would not speak to this worker but nodded his head in agreement. He denies having any questions at this time. I would like to visit with his also but she is not at bedside. Nathalie NEFF reports that she is here daily but had voiced that she was very tired et so I will wait till later this afternoon/evening before I call her in hopes that she comes to the hospital. Thank you for this referral!
--- NOTE | 2019-10-15 12:07 | Progress Note ---
Subjective Date Seen by a Provider: Oct 15, 2019 Time Seen by a Provider: 12:00 Subjective/Events-last exam doing ok. tolerating diet and having BM's. wound intact. needs more ambulation. no fever/chills. Objective Exam Vital Signs Date Time Temp Pulse Resp B/P (MAP) Pulse Ox O2 Delivery O2 Flow Rate FiO2 10/15/19 09:47 96 High Flow N/C 2.00 10/15/19 07:46 36.8 88 22 146/78 (100) 96 High Flow N/C 2.00 10/15/19 04:10 36.7 84 20 151/80 (103) 93 High Flow N/C 2.00 10/15/19 03:42 95 High Flow N/C 2.00 10/15/19 00:00 37.0 88 21 143/71 (95) 94 High Flow N/C 2.00 10/14/19 21:35 99 High Flow N/C 2.00 10/14/19 20:00 High Flow N/C 2.00 10/14/19 19:57 36.4 83 20 114/77 (89) 98 High Flow N/C 2.00 10/14/19 19:23 2.00 10/14/19 16:00 37.7 79 18 109/67 (81) 93 High Flow N/C 2.00 10/14/19 15:11 38.0 10/14/19 14:44 95 High Flow N/C 2.00 10/14/19 13:13 37.0 51 97 28 I & O 10/15/19 07:00 Intake Total 1680 ml Output Total 3195 ml Balance -1515 ml Capillary Refill : Less Than 3 SecondsLess Than 3 Seconds General Appearance: No Apparent Distress HEENT: PERRL/EOMI Neck: Full Range of Motion Respiratory: Chest Non Tender, Decreased Breath Sounds Cardiovascular: Regular Rate, Rhythm Gastrointestinal: soft, tenderness, other (granulation tissue starting open wound) Extremity: Normal Capillary Refill Neurologic/Psychiatric: Alert, Oriented x3 Skin: Normal Color Lymphatic: No Adenopathy Results Lab Laboratory Tests 10/14/19 14:00: Vancomycin Level Trough 11.9 10/15/19 04:30: White Blood Count 28.3H, Red Blood Count 2.45L, Hemoglobin 7.7L, Hematocrit 22L, Mean Corpuscular Volume 89, Mean Corpuscular Hemoglobin 31, Mean Corpuscular Hemoglobin Concent 35, Red Cell Distribution Width 14.8H, Platelet Count 36*L, Mean Platelet Volume 12.2H, Neutrophils (%) (Auto) 88H, Lymphocytes (%) (Auto) 6L, Monocytes (%) (Auto) 3, Eosinophils (%) (Auto) 1, Basophils (%) (Auto) 2, Neutrophils # (Auto) 24.9H, Lymphocytes # (Auto) 1.6, Monocytes # (Auto) 0.9, Eosinophils # (Auto) 0.2, Basophils # (Auto) 0.8H, Sodium Level 145, Potassium Level 3.3L, Chloride Level 118H, Carbon Dioxide Level 19L, Anion Gap 8, Blood Urea Nitrogen 22H, Creatinine 0.73, Estimat Glomerular Filtration Rate > 60, BUN/Creatinine Ratio 30, Glucose Level 95, Calcium Level 7.3L, Corrected Calcium 9.0, Phosphorus Level 2.9, Magnesium Level 1.8, Total Bilirubin 0.7, Aspartate Amino Transf (AST/SGOT) 130H, Alanine Aminotransferase (ALT/SGPT) 223H, Alkaline Phosphatase 67, Total Protein 4.4L, Albumin 1.9L 10/15/19 11:05: Microbiology 10/14/19 Gram Stain - Final, Resulted 10/14/19 Wound Culture - Preliminary, Resulted Probable E.coli Probable Klebsiella/Enterobact Probable Enterococcus Species 10/13/19 C. difficile GDH Antigen & Toxins - Final, Complete 10/08/19 Blood Culture - Preliminary, Resulted Patrizia glabrata Assessment/Plan Assessment/Plan Assess & Plan/Chief Complaint acute on chronic SBO with ischemic changes ileum s/p expl lap, MARIE and long segment SB resection. renal failure. increase IV fluids. improving ICU psychosis. haldol 2mg. cont IV abx. add antifungal. having bowel fxn. regular diet. wound infxn, will open wound and apply vac. Clinical Quality Measures DVT/VTE Risk/Contraindication: Risk Factor Score Per Nursin RFS Level Per Nursing on Admit: 4+=Very High ROMAIN LOFTON MD Oct 15, 2019 12:07
[2019-10-15 12:30] VITALS: BP 132/76
--- NOTE | 2019-10-15 12:55 | NUR ---
"RD ASSESSMENT PMHx: diverticulosis; GERD; HTN; hypercholesterolemia; RA PT INTERACTION: Pt was awake and pleasant during nutrition assessment for LOS. Note pt has confusion, per chart review. Pt states current appetite is good. Note avg PO intake <25% of meals, per chart review. Pt states following a regular diet at home, and has no issues with chewing/swallowing food. Pt states no recent issues with nausea or vomiting. Pt states some recent issue with constipation and diarrhea. Note last BM was 10/13, and pt not currently on bowel regimen per chart review. Pt states no recent wt changes. Note unable to determine recent wt hx, per chart review. Note presence of wound (incision on abdomen), per chart review. ABNORMAL NUTRITION-RELATED LAB VALUES LOW: K 3.3; Ca 7.3; Pro 4.4; alb 1.9 HIGH: Cl 118; BUN 22; AST 130; ALT 233 Est. kcal needs: 1975 kcal | 25 kcal/kg Est. Pro needs: 94 g Pro | 1.2 g Pro/kg PES STATEMENT: Inadequate oral intake (NI-2.1) related to loss of appetite | constipation | diarrhea as evidenced by pt interview | avg PO intake <25% meals Inadequate protein intake (NI-5.6.1) related to inadequate protein intake as evidenced by presence of wound (incision on abdomen) INTERVENTION: Continue with current diet order of Regular diet. Add Ensure HP to meals TID. Provides 160 kcal and 16 g Pro per serving, for perceived benefit to wound healing. Will continue to follow and reassess as pt needs, intake, and status change. MONITOR/EVALUATE: PO Intake; Plan of Care; Hydration Status; Weight Status; Lab Values Flaco Dave, MS, RD, LD"
--- NOTE | 2019-10-15 14:20 | NUR ---
CM/SS: Visited with pt and spouse as to plan for discharge Plan: Undetermined at this time. Pt is from home and lives with spouse Summary: Spouse is at the bedside. Pt is in bed at the time of the visit. Pt has not been eating and spouse has brought pt a number of different things to eat to get him to eat. Per physician it was ok to do so. Pt seems a little confused on today and reports that he is still with us. Pt is encouraged to get to feeling better and that he may be in the hospital a few more days. Pt continues to be ready to return home. Spouse is encouraging of pt to eat and he just looks at spouse and rolls his eyes. Pt is encouraged to take one day at a time. This worker gives pt a thumbs up, and pt gives a thumbs up back. Spouse is given information about pt and swing bed status and that the coordinator will come and visit with her as that status would allow pt additional time in the hospital. She is open to that, and Tammy Swing Bed coordinator is notified that spouse is here. This worker will follow up.
[2019-10-15] MEDS: NS IV 500 ML 500 ML IV SCH (15:57)
[2019-10-15 16:46] VITALS: BP 129/79
[2019-10-15 20:14] VITALS: BP 141/72
[2019-10-15] MEDS: MELATONIN 10 MG TABLET PO SCH (21:12)
[2019-10-16] MEDS: CEFEPIME INJECTION 1,000 MG in WATER (STERILE) FOR INJECTION 10 ML IV SCH ×2 (00:21→06:21)
[2019-10-16 00:40] VITALS: BP 129/67
[2019-10-16] MEDS: VANCOMYCIN 1250 MG/NS 250 ML IVPB IV SCH ×2 (02:19)
[2019-10-16] MEDS: RT-ALBUTEROL/IPRATROPIUM 3 ML (DUONEB) VIAL INH SCH ×2 (02:52→07:27)
[2019-10-16 04:10] VITALS: BP 131/61
[2019-10-16 05:32] LABS: BASOPHILS # (AUTO) 0.3 10^3/uL (0.0-0.1); BASOPHILS % (AUTO) 2 % (0-10); EOSINOPHILS % (AUTO) 0 % (0-10); HEMATOCRIT 23 % (40-54); HEMOGLOBIN 7.6 G/DL (13.3-17.7); LYMPHOCYTES # (AUTO) 1.1 X 10^3 (1.0-4.0); LYMPHOCYTES % (AUTO) 7 % (12-44); MEAN CORPUSCULAR HEMOGLOBIN 29 PG (25-34); MEAN CORPUSCULAR HGB CONC 33 G/DL (32-36); MEAN CORPUSCULAR VOLUME 88 FL (80-99); MEAN PLATELET VOLUME 11.4 FL (7.4-10.4); MONOCYTES # (AUTO) 0.8 X 10^3 (0.0-1.0); MONOCYTES % (AUTO) 5 % (0-12); NEUTROPHILS # (AUTO) 13.5 X 10^3 (1.8-7.8); NEUTROPHILS % (AUTO) 86 % (42-75); PLATELET COUNT 58 10^3/uL (130-400); RED CELL DISTRIBUTION WIDTH 14.9 % (10.0-14.5); WHITE BLOOD COUNT 15.6 10^3/uL (4.3-11.0)
[2019-10-16 05:59] LABS: ALBUMIN 1.8 GM/DL (3.2-4.5); CHLORIDE 121 MMOL/L (98-107); POTASSIUM 3.4 MMOL/L (3.6-5.0); SODIUM 146 MMOL/L (135-145)
[2019-10-16 06:00] LABS: CALCIUM 7.3 MG/DL (8.5-10.1)
[2019-10-16 06:01] LABS: GLUCOSE 123 MG/DL (70-105); TOTAL PROTEIN 4.2 GM/DL (6.4-8.2)
[2019-10-16 06:02] LABS: CARBON DIOXIDE 17 MMOL/L (21-32)
[2019-10-16 06:03] LABS: BILIRUBIN,TOTAL 0.6 MG/DL (0.1-1.0)
[2019-10-16 06:04] LABS: PHOSPHORUS 2.6 MG/DL (2.3-4.7)
[2019-10-16 06:05] LABS: ALKALINE PHOSPHATASE 64 U/L (40-136); CREATININE SERUM 0.71 MG/DL (0.60-1.30); GFR ESTIMATED > 60
[2019-10-16 06:06] LABS: BUN/CREATININE RATIO 32
[2019-10-16 06:08] LABS: ALANINE AMINOTRANSFERASE 165 U/L (0-55); MAGNESIUM 1.9 MG/DL (1.6-2.4)
[2019-10-16] MEDS: metroNIDAZOLE 500MG/100ML IVPB 100 ML IV SCH (06:21)
--- NOTE | 2019-10-16 07:46 | Progress Note ---
Subjective Subjective Date Seen by Provider: Oct 16, 2019 Time Seen by Provider: 07:00 Pt awake and alert. He does not report any pain, but is slightly tender along incision and on bilateral lower flank area. He denies any nausea, vomiting, headaches, fevers, chills, or dizziness. He does have decreased appetite, but appeared more willing to eat today when asked. Wound Vac was placed yesterday. Pt is still confused about everything that is happening, but was agreeable to idea of eating more to get energy up and performing some therapy to gain strength back to be able to return home with his . He appeared to understand that he will need to stay in the hospital setting until his abdominal incision is able to heal up better. Review of Systems General: No Chills; Fatigue, Other (thin) HEENT: No Head Aches, No Visual Changes Pulmonary: No Dyspnea, No Cough Cardiovascular: No: Chest Pain, Palpitations Gastrointestinal: Abdominal Pain (Incisional); No: Vomiting, Diarrhea, Constipation Genitourinary: No Dysuria Musculoskeletal: No: back pain, leg pain Neurological: Weakness, Confusion; No: Numbness All Other Systems Reviewed All Other Systems Reviewed: Yes Objective Exam Vital Signs Vital Signs - First Documented 10/10/19 10/10/19 10/13/19 07:19 11:13 12:17 Temp 37.8 O2 Flow Rate 2.00 FiO2 36 Capillary Refill : Less Than 3 SecondsLess Than 3 Seconds General Appearance: No Apparent Distress HEENT: PERRL/EOMI Neck: Full Range of Motion Respiratory: Chest Non Tender, Decreased Breath Sounds Cardiovascular: Regular Rate, Rhythm Gastrointestinal: Normal Bowel Sounds, Soft, Tenderness (Bilateral lower flanks mild), Other (2 ASHLEY drains, wound vac over midline incision) Genital/Rectal: Other (Garzon catheter) Extremity: Normal Capillary Refill, No Calf Tenderness, No Pedal Edema Neurologic/Psychiatric: Alert, Other (Confusion) Skin: Normal Color Lymphatic: No Adenopathy Results Lab Laboratory Tests 10/15/19 11:05: Iron Level 22L, Total Iron Binding Capacity 131L, Unsaturated Iron Binding Ca pacity 109, Transferrin % Saturation 17, Ferritin 2591.8H 10/16/19 05:15: White Blood Count 15.6H, Red Blood Count 2.61L, Hemoglobin 7.6L, Hematocrit 23L, Mean Corpuscular Volume 88, Mean Corpuscular Hemoglobin 29, Mean Corpuscular Hemoglobin Concent 33, Red Cell Distribution Width 14.9H, Platelet Count 58L, Mean Platelet Volume 11.4H, Neutrophils (%) (Auto) 86H, Lymphocytes (%) (Auto) 7L, Monocytes (%) (Auto) 5, Eosinophils (%) (Auto) 0, Basophils (%) (Auto) 2, Neutrophils # (Auto) 13.5H, Lymphocytes # (Auto) 1.1, Monocytes # (Auto) 0.8, Eosinophils # (Auto) 0.0, Basophils # (Auto) 0.3H, Sodium Level 146H, Potassium Level 3.4L, Chloride Level 121H, Carbon Dioxide Level 17L, Anion Gap 8, Blood Urea Nitrogen 23H, Creatinine 0.71, Estimat Glomerular Filtration Rate > 60, BUN/Creatinine Ratio 32, Glucose Level 123H, Calcium Level 7.3L, Corrected Calcium 9.1, Phosphorus Level 2.6, Magnesium Level 1.9, Total Bilirubin 0.6, Aspartate Amino Transf (AST/SGOT) 119H, Alanine Aminotransferase (ALT/SGPT) 165H , Alkaline Phosphatase 64, Total Protein 4.2L, Albumin 1.8L Microbiology 10/14/19 Gram Stain - Final, Resulted 10/14/19 Wound Culture - Preliminary, Resulted Probable E.coli Probable Klebsiella/Enterobact Probable Enterococcus Species 10/13/19 C. difficile GDH Antigen & Toxins - Final, Complete 10/08/19 Blood Culture - Preliminary, Resulted Patrizia glabrata Assessment/Plan Assessment/Plan Assessment and Plan SMALL BOWEL OBSTRUCTION -CONTINUE NORMAL DIET, MONITOR BOWEL MOVEMENTS -IV FLUIDS -CONSULT DR LOFTON -S/P OPEN RESECTION -[address]- MONITOR OUTPUT, SLIGHT DECREASE, CONSIDER REMOVAL IF DECREASING FLUID DRAIN TREND CONTINUES HYPOTENSION -CONTINUE IV FLUIDS -IMPROVED -MONITOR SEPSIS/ LEUKOCYTOSIS -CONTINUE VANCOMYCIN, CEFEPIME, ANIDULAFUNGIN, IV FLUIDS -ABDOMINAL INCISION CULTURED, -PRELIMINARY E. COLI, KLEBSIELLA, AND ENTEROCOCCUS CULTURES -MIDLINE INCISION WOUND VAC APPLIED YESTERDAY, MONITOR OUTPUT -WBC DECREASED TO 15.6 TODAY FROM 28.3 YESTERDAY, -MONITOR PULMONARY EFFUSION / POSSIBLE PNEUMONIA -CONTINUE TO MONITOR, ENCOURAGE DEEP BREATHES, SPIROMETER AND OSCILLATORY PEP USAGE -CONSIDER LASIX 20MG BOLUS -CONSIDER REPEAT CXR TO ASSES THROMBOCYTOPENIA -IMPROVING -POSSIBLY DUE TO HEPARIN INDUCED THROMBOCYTOPENIA -STOPPED HEPARIN ON 10/11, PLATELETS REMAIN LOW -CONSIDER STARTING ARGATROBAN TO PREVENT THROMBOSIS/ DVT PROPHYLAXIS -MONITOR FOR BLEEDING -MONITOR PLATELETS-INCREASED TO 58 TODAY FROM 36 YESTERDAY ANEMIA -HGB REMAINS LOW BUT STABLE IN 7-8 RANGE -MONITOR HGB/HCT - IRON STUDIES PERFORMED YESTERDAY -LOW SERUM IRON 22, LOW TIBC 131, ELEVATED FERRITIN 2591.8 -POSSIBLY DUE TO INFECTION, ACUTE PHASE REACTION, HYPOCALCEMIA -IMPROVING -MONITOR ORAL INTAKE ELEVATED LIVER ENZYMES -IMPROVING -MONITOR ACUTE KIDNEY INJURY -IV FLUIDS MONITOR BUN/CR AND ELECTROLYTES -IMPROVING ELEVATED LIPASE -IMPROVED GASTROPARESIS HIATAL HERNIA Problems: (1) Nausea & vomiting (2) Gastroparesis (3) Elevated lipase (4) AFSHAN (acute kidney injury) (5) SBO (small bowel obstruction) Clinical Quality Measures DVT/VTE Risk/Contraindication: Risk Factor Score Per Nursin RFS Level Per Nursing on Admit: 4+=Very High Supervisory-Addendum Brief Verification & Attestation Participated in pt care: history, MDM, physical Personally performed: exam, history, MDM Care discussed with: Medical Student Procedures: n/a Results interpretation: Verified all documentation SMALL BOWEL OBSTRUCTION -CONTINUE TO ADVANCE DIET TOLERATED, MONITOR BOWEL MOVEMENTS -DUE TO HIS POOR INTAKE, CONTINUE WITH IV FLUIDS - DR LOTFON HAS SEEN PATIENT DEFER GI DECISIONS TO DR. LOFTON -S/P OPEN RESECTION -[address]- MONITOR OUTPUT, SLIGHT DECREASE, CONSIDER REMOVAL IF DECREASING FLUID DRAIN TREND CONTINUES - S/P WOUND VAC PLACEMENT HYPOTENSION -CONTINUE IV FLUIDS -IMPROVED -MONITOR SEPSIS/ LEUKOCYTOSIS -CONTINUE VANCOMYCIN, CEFEPIME, ANIDULAFUNGIN, IV FLUIDS -ABDOMINAL INCISION CULTURED, -PRELIMINARY E. COLI, KLEBSIELLA, AND ENTEROCOCCUS CULTURES -MIDLINE INCISION WOUND VAC APPLIED YESTERDAY, MONITOR OUTPUT -WBC DECREASED TO 15.6 TODAY FROM 28.3 YESTERDAY, -MONITOR PULMONARY EFFUSION / POSSIBLE PNEUMONIA -CONTINUE TO MONITOR, ENCOURAGE DEEP BREATHES, SPIROMETER AND OSCILLATORY PEP USAGE -CONSIDER LASIX 20MG BOLUS -CONSIDER REPEAT CXR TO ASSES THROMBOCYTOPENIA -IMPROVING -POSSIBLY DUE TO HEPARIN INDUCED THROMBOCYTOPENIA -STOPPED HEPARIN ON 10/11, PLATELETS REMAIN LOW -MONITOR FOR BLEEDING -MONITOR PLATELETS THEY CONTINUE TO IMPROVE ANEMIA -HGB REMAINS LOW BUT STABLE IN 7-8 RANGE -MONITOR HGB/HCT - IRON STUDIES PERFORMED YESTERDAY -LOW SERUM IRON 22, LOW TIBC 131, ELEVATED FERRITIN 2591.8 -POSSIBLY DUE TO INFECTION, ACUTE PHASE REACTION, HYPOCALCEMIA -IMPROVING -MONITOR ORAL INTAKE ELEVATED LIVER ENZYMES -IMPROVING -MONITOR ACUTE KIDNEY INJURY -IV FLUIDS MONITOR BUN/CR AND ELECTROLYTES -IMPROVING ELEVATED LIPASE -IMPROVED GASTROPARESIS HIATAL HERNIA NILSA AGUIRRE STUD Oct 16, 2019 07:46 TITA LAINEZ MD Oct 18, 2019 13:26
[2019-10-16] MEDS: PANTOPRAZOLE 40 MG (PROTONIX) VIAL IV SCH (09:02)
[2019-10-16] MEDS: D5 NS W/KCL 20 MEQ/L 1,000 ML IV SCH (09:02)
[2019-10-16] MEDS: METOCLOPRAMIDE INJ 10 MG/2 ML (REGLAN) IV SCH (09:03)
[2019-10-16] MEDS: ANIDULAFUNGIN INJECTION 100 MG in NS (IVPB) 100 ML IV SCH (09:03)
--- NOTE | 2019-10-17 08:42 | Physician Query Clarification ---
PQ-Further Specificity Admission/Discharge Admission Date: Oct 07, 2019 at 21:00 Discharge Date: Oct 16, 2019 at 09:03 Dr. Lofton The medical record reflects the following clinical scenario: History/Risk Factors: PSBO, Clinical Findings: 10/07 Blood culture - mildred glabrata, 10/06 - T 37.0, P 108, R 20, WBC 7.5, Lactic acid 1.14 Treatment: IV Ancef, IV Piperacillin, IV Fluconazole, IV Vancomycin Question: Can you further specify if sepsis was present on IP admission or if it developed after IP admission per the clinical indicators above? Pt was admitted as observation on 10/04 then went IP on 10/06. Please document a response in the Progress Notes or Discharge Summary. 1. Sepsis was present on 10/06 IP admission 2. Sepsis developed after 10/06 IP admission 3. Other, with explanation of the clinical findings. 4. Clinically undetermined, no explanation for the clinical findings. PHYSICIAN RESPONSE Can you specify per above: 2 Please remember a lack of response to the above will prompt a phone page by CDI/Coding staff. In responding to this query, please exercise your independent professional judgment. The purpose of this communication is to more accurately reflect the complexity of your patients condition. The fact that a question is asked does not imply that any particular answer is desired or expected. Thank you for your timely response to this clarification. Requestors name: [email or web address] THIS PHYSICIAN QUERY FORM IS A PERMANENT PART OF THE MEDICAL RECORD ROYA JERONIMO Oct 17, 2019 08:42 ROMAIN LOFTON MD Oct 17, 2019 08:49
[2019-10-25] MEDS ORDERED: OLAN2.5T27 PO (08:38)
== END 2019-10-16 09:03 | disposition swing bed (61) | DRG 329 ==
LOC: EDUNIT# 22:28 → ER 22:29 → 4TH 22:44 → OBSVTOIN 10-07 21:00 → ICU 10-08 15:26 → 4TH 10-10 18:45
PROVIDERS: ADMIT Surgery; ATTEND Surgery
PROC: 0DNU0ZZ Release Omentum, Open Approach (ICD-10-PCS; 2019-10-08)
PROC: 0DBB0ZZ Excision of Ileum, Open Approach (ICD-10-PCS; principal; 2019-10-08 10:47)
PROC: 0DN80ZZ Release Small Intestine, Open Approach (ICD-10-PCS; 2019-10-08 10:47)
DX: K55.1 Chronic vascular disorders of intestine (principal); K85.90 Acute pancreatitis without necrosis or infection, unspecified; B37.7 Candidal sepsis; N17.9 Acute kidney failure, unspecified; J90 Pleural effusion, not elsewhere classified; T81.41XA Infection following a procedure, superficial incisional surgical site, initial encounter; F29 Unspecified psychosis not due to a substance or known physiological condition; K31.84 Gastroparesis; I12.9 Hypertensive chronic kidney disease with stage 1 through stage 4 chronic kidney disease, or unspecified chronic kidney disease; N18.9 Chronic kidney disease, unspecified; K44.9 Diaphragmatic hernia without obstruction or gangrene; D64.9 Anemia, unspecified; J44.9 Chronic obstructive pulmonary disease, unspecified; Z87.891 Personal history of nicotine dependence; E78.00 Pure hypercholesterolemia, unspecified; K21.9 Gastro-esophageal reflux disease without esophagitis; N40.0 Benign prostatic hyperplasia without lower urinary tract symptoms; M06.9 Rheumatoid arthritis, unspecified; K57.30 Diverticulosis of large intestine without perforation or abscess without bleeding; K64.2 Third degree hemorrhoids; M19.91 Primary osteoarthritis, unspecified site; F41.9 Anxiety disorder, unspecified; F32.9 Major depressive disorder, single episode, unspecified; E83.51 Hypocalcemia; E87.6 Hypokalemia; D69.6 Thrombocytopenia, unspecified
CPT/HCPCS: 36415; 71045; 71250; 74018; 74019; 74176; 74250; 80053; 80202; 82150; 82728; 82805; 83540; 83605; 83690; 83735; 84100; 84134; 84478; 85007; 85014; 85018; 85025; 85027; 85610; 86850; 86900; 86901; 86920; 87040; 87070; 87077; 87081; 87106; 87186; 87205; 87324; 87449; 87635; 88307; 94640; 94760; G0378

== ENCOUNTER 2019-10-16 09:05 | Inpatient (IN) | payer MEDICARE, OTHER ==
[~2019-10-16] VITALS: Ht 187 cm; Wt 83.8 kg
[~2019-10-16 09:05] MED LIST changes: +ACHYD1T PO; +DICL100G18 TP; +DULO30CA49 PO; +ZOLP5TAB7 PO
[2019-10-16] MEDS ORDERED: CATHETER FLUSH 10 ML SYR IV PRN (09:15)
[2019-10-16] MEDS ORDERED: ACETAMINOPHEN 650 MG SUPP (TYLENOL) PR PRN (09:15)
[2019-10-16] MEDS ORDERED: ONDANSETRON 4 MG/2 ML (SDV) Z0FRAN IV PRN (09:15)
[2019-10-16] MEDS ORDERED: ACETAMINOPHEN 325 MG TABLET PO PRN (09:15)
[2019-10-16] MEDS ORDERED: VANCOMYCIN INJECTION 1,250 MG in NS (IVPB) 250 ML IV SCH (09:15)
[2019-10-16] MEDS ORDERED: RT-ALBUTEROL SULF 2.5 MG/3 ML PRE-MIX VIAL INH PRN (09:15)
[2019-10-16] MEDS ORDERED: SALIVA STIMULANT MOUTH SPRAY (BIOTENE) 1.5 OZ MM PRN (09:15)
[2019-10-16] MEDS ORDERED: ZINC OXIDE 16% OINT (BUTT PASTE) 57 GM TUBE TOP PRN (09:15)
--- OUTSIDE RECORDS SUMMARY | 2019-10-16 09:36 | XMS REPORT | Encounter Summary ---
Author Author Department of [facility] SOLITARIO duenas Organization Department of [facility] Address [address] [place] [address] Phone Unavailable Care Team Providers Care Product Coordinator Name Role Phone DINO CRISELDA PCP Unavailable Insurance Providers: All historical and current Section Date Range: From patient's date of to the date document was create d. This section includes the names of all active insurance providers for the clara ocdy Insurance Provider Type of Coverage Plan Name Start of Policy Co verage End of Policy Coverage Group Number Member ID Insurance Provider's Telephone N umber Policy Mcmullen's Name Patient's Relationship to Policy Mcmullen MEDICARE (WNR) MEDICARE (M) RR PART A Mar 03, 2010 RR PART A [id number] SOLITARIO CHEW PATIENT MEDICARE (WNR) MEDICARE (M) RR PART B Mar 03, 2010 RR PART B [id number] SOLITARIO CHEW PATIENT [facility] MEDIGAP PLAN F RAILROAD PLAN F Apr [id number] SOLITARIO CHEW PATIENT Selected Encounter This section includes the information on record at [place] for the Encounter. Date/Time Encounter Type Encounter Description Reason Provider Source May 16, 2019 09:00 AM Outpatient Encounter PRIMARY CARE/MEDICINE VERONICA MCDONNELL IHE Encounter Template Text not used by [place] Assessments - Encounter Diagnoses No Data Provided [...] appointme nts. The data comes from all [facility]. Appointment Date/Time Appointment Type Appointment Facili ty Name May 28, 2019 10:30 AM AMBULATORY - NONE CHANTELLEBREEYOSELIN SATHYA May 28, 2019 12:30 PM AMBULATORY - MEDICINE [facility] Active, Pending, and Scheduled Orders This section [...] the Encounter. The data comes from all [facility]. Test Date/Time Test Type Test Details Facility Name May 28, 2019 12:00 AM Laboratory - Chemistry Order LDL KIKE STEROL (CALCULATED) BLOOD SERUM SP [facility] Surgical Procedures: All associated to the encounter No Data Provided for This Section Lab Results: +/- 30 days of the encounter This section includes the Chemistry and Hematology Lab R esults on record with [place] for the patient. Radiology Reports and Pathology Report s are provided separately, in subsequent sections. Lab Results This section contains the Chemistry/Hematology Results sabrina t were resulted 30 days before or 30 days after the date of the Encounter. Date/Time Source Result Type Result - Unit Interpretation Reference Range Comment May 28, 2019 11:47 AM [facility] LIPID PROFILE Specimen Type: SERUM No comment entered. CHOLESTEROL, TOTAL (FV) 150 mg/dL 118-20 0 TRIGLYCERIDE (FV) 53 mg/dL <200 LDL CHOLESTEROL (CALCULATED) 86 HDL CHOLESTEROL (FV) 53 mg/dL >40 May 28, 2019 11:47 AM [facility] RENAL+LIVER PROFILE (FV) Specimen Type: SERUM No [...] Encoun ter. The data comes from the [place] facility where the Encounter took place. Date/Time Smoking Status/Tobacco Use Comment [facility] it May 03, 2018 12:14 [...] the patient. The data comes from a [facility] treatment facilities. It does not list Allergies/ADRs [...] VA pharmacy in the last 15 m [facility], and 2) all medications recorded in the VA medical record as "non-VA medic ations". Pharmacy terms refer to VA pharmacy's work on prescriptions. VA patient s are advised to take their medications as instructed by their health care team. The data comes from all [place] treatment facilities. Glossary of Pharmacy Terms:Active = A prescription that can be filled at the local [place] pharmacy.Active: On Hold = An active prescription that will not be filled until pharmacy resolves the issue.Active: Susp = An active prescription that is not scheduled to be filled yet.Clinic Order = A medication received during a visit to a [place] clinic or emergency department (currently not available).Discontinued [...] other providers that was filled outside the [place]. Or, it may be an over the [...] SHORTNESS OF BREATH 120 May 23, 2019 [id number] Mar 07, 2019 ELLEN POST ALENDRONATE 70MG TAB Active: Susp TAKE ONE TABLET BY MOUTH 1 TIME PER WEEK TAKE 30 MINUTES BEFORE FIRST FOOD, BEVERAGE OR MEDICATION OF THE DAY. DRINK WITH FULL GLASS OF WATER. REMAIN IN UPRIGHT POSITION FOR AT LEAST 30 MINUTES FOL LOWING DOSE. 12 Apr 16, 2020 [id number] Nov 01, 2019 CRISELDA SUN IN [place] CLINIC ALENDRONATE 70MG TAB Discontinued TAKE ONE TABLET BY MOUTH 1 TIME PER WEEK TAKE 30 MINUTES BEFORE FIRST FOOD, BEVERAGE OR MEDICATION OF THE DAY. DRINK WITH FULL GLASS OF WATER. REMAIN IN UPRIGHT POSITION FOR AT LEAST 30 MINUTES FOL LOWING DOSE. 12 May 23, 2019 [id number] Mar 14, 2019 ELLEN POST [facility] AMLODIPINE BESYLATE 5MG/BENAZEPRIL HCL 10MG CAP Active TAKE 1 CAPSULE BY MOUTH ONCE DAILY 90 May 28, 2020 [id number] Oct 19, [facility] B[facility]MG/BENAZEPRIL HCL 10MG CAP Discontinued TAKE 1 CAPSULE BY MOUTH ONCE DAILY 90 August 16, 2019 [id number] May 02, 2019 [facility] ASCORBIC ACID 500MG TAB Non-VA TAKE ONE TABLET BY MOUTH ONCE DAILY Non-VA Documented by: SHUKRI HALL nted at: [facility] ATORVASTATIN CA 10MG TAB Active: Susp TAKE ONE TABLET BY MOUTH AT BEDTIME FOR CHOLESTEROL - DO NOT TAKE WITH GRAPEFRUIT JUICE 90 Apr 16, 2020 [id number] Dec 19, 2019 CRISELDA [facility] ATORVASTATIN CA 10MG TAB Discontinued TAKE ONE TABLET BY MOUTH AT BEDTIME FOR CHOLESTEROL - DO NOT TAKE WITH GRAPEFRUIT JUICE 90 Jul 17, 2019 [id number] Apr 03, 2019 ELLEN POST [facility] ATORVASTATIN CA 20MG TAB Discontinued TAKE ONE-HALF T ABLET BY MOUTH AT BEDTIME FOR CHOLESTEROL - DO NOT TAKE WITH GRAPEFRUIT JUICE 45 May 23, 2019 [id number] Mar 26, 2019 ELLEN POST [place] BACLOFEN 20MG TAB Active: On Hold TAKE ONE-HALF TABLET BY MOUTH AT BEDTIME -(MAY CAUSE DROWSINESS) 45 Apr 16, 2020 [id number] Jun 14, 2019 CRISELDA [facility] BACLOFEN 20MG TAB Discontinued TAKE ONE-HALF TABLET BY MOUTH AT BEDTIME -(MAY CAUSE DROWSINESS) 45 May 23, 2019 [id number] Mar 26, 2019 ELLEN POST RI CHOLECALCIFEROL 1000UNT TAB Non-VA TAKE TWO TABLETS BY MOUTH TWICE A DAY Non-VA Documented by: SHUKRI HALL nted at: [facility] DULOXETINE HCL 30MG CAP,EC Non-VA TAKE 1 CAPSULE BY MOUTH ONCE DAILY Non-VA Documented by: CRISELDA SUN nted at: [facility] FERROUS SO4 324MG TAB,EC Non-VA TAKE ONE TABLET BY MOUTH ONCE DAILY Non-VA Documented by: SHUKRI HALL nted at: [facility] FLUTICASONE 200MCG/VILANTEROL 25MCG INHL,ORAL,30D Active INHALE 1 INHALATION (200/25) BY MOUTH ONCE DAILY FOR CHRONIC OBSTRUCTIVE PULMONARY DISEASE OR EMPHYSEMA(CONSULT APPROVED) Jun 12, 2020 [id number] Sep 16, 2019 CRISELDA SUN [facility] FLUTICASONE 200MCG/VILANTEROL 25MCG INHL,ORAL,30D Discontinu ed INHALE 1 INHALATION (200/25) BY MOUTH ONCE DAILY FOR CHRONIC OBSTRUCTIVE PULMONARY DISEASE OR EMPHYSEMA(CONSULT APPROVED) May 23, 2019 [id number] n 2019 ELLEN POST [facility] FOLIC ACID 1MG TAB Active TAKE ONE TABLET BY MOUTH QD WITH FOOD 9 0 Mar 07, 2020 [id number] Oct 24, 2019 ELLEN POST [facility] FOLIC ACID 1MG TAB Discontinued TAKE ONE TABLET BY MOUTH QD WITH FO OD 90 May 23, 2019 [id number] Feb 06, 2019 ELLEN POST [facility] HYDROCODONE 10MG/ACETAMINOPHEN 325MG TAB Non-VA TAKE ONE TABLET BY MOUTH EVERY 4 HOURS NEEDED Non-VA Documented by: RICARDO ANTHONY nted at: [facility] LIDOCAINE 5% PATCH Active: Susp APPLY 1 PATCH TO THE SKIN ONCE DAILY FOR PAIN (PATCH SHOULD BE REMOVED AFTER 12 HOURS) 90 Mar 07, 2020 [id number] Nov 25, 2019 ELLEN POST [facility] METHOTREXATE NA 2.5MG TAB Active: Susp TAKE SIX TABLE TS BY MOUTH 1 TIME PER WEEK (ONCE EVERY 7 DAYS) CHOICE 72 Mar 07, 2020 [id number] Nov ELLEN POST [facility] METHOTREXATE NA 2.5MG TAB Discontinued TAKE SIX TABLE TS BY MOUTH 1 TIME PER WEEK (ONCE EVERY 7 DAYS) CHOICE 24 Jul 18, 2019 [id number] Oct [facility] OMEPRAZOLE 20MG CAP,EC Discontinued TAKE 2 CAPSULES B Y MOUTH ONCE DAILY FOR THE STOMACH 180 Apr 16, 2020 [id number] Jun 14, 2019 CRISELDA SUN [facility] OMEPRAZOLE 20MG CAP,EC Discontinued TAKE 2 CAPSULES B Y MOUTH ONCE DAILY FOR THE STOMACH 180 May 23, 2019 [id number] Mar 26, 2019 ELLEN POST [facility] PANTOPRAZOLE NA 40MG TAB,EC Active: Susp TAKE ONE TAB LET BY MOUTH EVERY MORNING FOR THE STOMACH 90 May 28, 2020 [id number] Nov 14, 2019 CRISELDA SUN [facility] HCL 2MG TAB N on-VA TAKE ONE TABLET BY MOUTH ONCE DAILY Non-VA Documented by: CRISELDA SUN nted at: [facility] TERAZOSIN HCL 2MG CAP Active TAKE 1 CAPSULE BY MOUTH TWICE A DAY FOR PROSTATE / MAY CAUSE LIGHTHEADEDNESS WHEN STANDING 180 Mar 07, 2020 [id number] J 2019 ELLEN POST [facility] TERAZOSIN HCL 2MG CAP Discontinued TAKE 1 CAPSULE BY MOUTH TWICE A DAY FOR PROSTATE / MAY CAUSE LIGHTHEADEDNESS WHEN STANDING 180 May 23, 2019 [id number] Feb 11, 2019 ELLEN POSTJEANNETTE [facility] ZOLPIDEM TARTRATE 10MG TAB Non-VA TAKE ONE TABLET BY MOUTH AT BEDTIME Non-VA Documented by: ELLEN POST nted at: [facility] Problems (Conditions): All historical and current Section Date Range: From patient's date of to the date document was create d. This section includes a list of Problems (Conditions) know n to [place] for the patient. It includes both active and inacti ve problems (conditions). The data comes from all [place] treatment facilities. Problem Status Problem Code Date of Onset Date of Resolution Comm ent(s) Provider Source Anemia (SNOMED CT 087694600) Active 285.9 Jul 24, 2014 Entered By: MINNA PANTOJA Comment: 07/16 Hb corrected to 13.5 MINNA PANTOJA [facility] Aortic Valve Disorder (SCT 3895910) Active 7640845 Jun 06, 2018 Entered By: ELLEN POST Comment: 06/2018 Murmur/ECHO = Mild aortic valve disease, EF 60-65% ANETTE POSTGRAYSON Baltazar [facility] Bilateral posterior vitreous detachment Active [id number] CAMERONANKURBRAYDEN Martinez [facility] Chronic obstructive lung disease (SNOMED CT 54094555) Active 1364 5005 Jun 25, 2014 Entered By: IMNNA PANTOJA Comment: ex-smoker 0 [place] [facility] Dry eyes Active 139730558 BRAYDEN [facility] GERD - Gastro-esophageal reflux disease Active 851943118 ISABELSHUKRI [facility] H/O: surgery Active 553151105 Jul 24, 2014 Entered By: MINNA PANTOJA Comment: Colon resection (perforation) 2007Apr 2014 Entered By: MINNA PANTOJA Comment: 2012 colonoscopy negApr 2014 Entered By: MINNA PANTOJA Comment: 2012 L inguinal hernia repair. MINNA PANTOJA [facility] Hyperlipidemia (SNOMED CT 41993185) Active 18829100 Jul 23, 2014 Entered By: MINNA PANTOJA Comment: 07/15 TC 128 SHUKRI HALL [place] [facility] Hypertension (SNOMED CT 52817980) Active 42682327 ISABELSHUKRI Baltazar [place] [facility] Osteoarthritis (SNOMED CT 307275297) Active 715.90 MONIQUE ROMERO J [facility] Osteoporosis (SNOMED CT 03114948) Active 17117755 Jul 24, 2014 Entered By: MINNA PANTOJA Comment: hx of compression fx L spineApr 2014 Entered By: MINNA PANTOJA Comment: 07/16 Trial of tramadol for chronic back pain ISABEL,SHUKRI Baltazar [facility] Posttraumatic stress disorder (SNOMED CT 65249708) Active 84917013 UZAIR BUTCHER [facility] Recurrent major depression Active 09659046 CORS ON,VALERIA Dina [place] [facility] Rheumatoid arthritis (SNOMED CT 15191976) Active 51193440 Jun 25, 2014 Entered By: MINNA PANTOJA Comment: 05/17 sed rate 47 RF 20 SHUKRI HALL [place] [facility] Relationship problems Inactive [id number] Jul 24, 2014 CO RSON,VALERIA Arroyo [place] [facility] Radiology Reports: +/- 30 days of the encounter No Data Provided for This Section Pathology Reports: +/- 30 days of the encounter No Data Provided for This Section Encounter Notes: All associated encounter notes No Data Provided for This Section
--- OUTSIDE RECORDS SUMMARY | 2019-10-16 09:36 | XMS REPORT | Clinical Summary ---
Author Author [facility] Organization [facility] Address Unknown Phone Unavailable Care Team Providers Care Kids Activities Coach Name Role Phone Selvin Lara MD Unavailable Manjit Andrade MD PCP Roverto Villalta DO Unavailable Source Comments Some departments are not documenting in the electronic medical record. If you d o not see the information that you expected, contact Release of Information in [facility] [employer] Information Management department at [phone] for further assistan ce in locating additional records.[facility] Allergies Comments Active Allergy Reactions Severity Noted [...] Comments Vital Sign 115/76 04/04/2013 10:08 AM [facility] Blood Pressure 104 04/04/2013 10:51 AM [employer] Pulse 36.6 C (97.8 F) 04/04/2013 10:08 AM [employer] [employer] Temperature 18 04/04/2013 10:08 AM [facility] Respiratory Rate - - Oxygen Saturation - - Inhaled Oxygen Concentration 98.1 kg (216 lb 3.2 oz) 04/04/2013 10:08 AM [employer] [employer] with shoes Weight 179.6 cm (5' 10.7") 04/04/2013 10:08 AM [employer] [employer] Height 30.41 04/04/2013 10:08 AM [employer] Body Mass Index Plan of Treatment Health [...] RAILROAD -Present PART A AND B Indemnity [facility] xxxxxxxxx 2012-P GENERIC resent Medicare MEDICARE MEDICARE xxxxxxxxxx 2010- PART A AND Present B [id number] Advance Directives Patient Cloth Dyer Explanation Type Date Recorded Advance 12/20/2012 11:06 AM Directive/DPOA
--- OUTSIDE RECORDS SUMMARY | 2019-10-16 09:36 | XMS REPORT | Continuity of Care Document ---
Author Author [facility] Address Unknown Phone Unavailable Care Team Providers Care [employer] Name Role Phone [facility] Unavailable Unavailable Problems Combined list of all problems from all Department of Defense and [facility] facilities. It does not include entries that were removed or entered in error. Problem Status Onset Date Problem Type Date of Resolution Comments Source Anemia (SNOMED CT 286918299) Active Condition Jul 24, 2014 Entered By: MINNA PANTOJA Comment: 07/16 Hb corrected to 13.5 [facility] Aortic Valve Disorder (SCT 9863068) Active Condition Jun 06, 2018 Entered By: ELLEN POST Comment: 06/2018 Murmur/ECHO = Mild aortic valve disease, EF 60-65% [facility] Bilateral posterior vitreous detachment Active Condition [facility] Chronic obstructive lung disease (SNOMED CT 30697264) Active Condition Jun 25, 2014 Entered By: MINNA PANTOJA Comment: ex- smoker [facility] Dry eyes Active Condition [facility] GERD - Gastro-esophageal reflux disease Active Condition [facility] H/O: surgery Active Condition Jul 24, 2014 Entered By: MINNA PANTOJA Comment: Colon resection (perforation) 2006Jul 24, 2014 Entered By: MINAN PANTOJA Comment: 2012 colonoscopy neg Jul 24, 2014 Entered By: MINNA PANTOJA Comment: 2012 L inguinal hernia repair. [facility] Hyperlipidemia (SNOMED CT 12078672) Active Condition Jul 23, 2014 Entered By: MINNA PANTOJA Comment: 07/15 TC 128 [facility] Hypertension (SNOMED CT 82982064) Active Condition [facility] Osteoarthritis (SNOMED CT 460290257) Active Condition [facility] Osteoporosis (SNOMED CT 83402966) Active Condition Jul 24, 2014 Entered By: MINNA PANTOJA Comment: hx of compression fx L spine Jul 24, 2014 Entered By: MINNA PANTOJA Comment: 07/16 Trial of tramadol for chronic back pain [facility] Posttraumatic stress disorder (SNOMED CT 97270535) Active Condition [facility] Recurrent major depression Active Condition [facility] Rheumatoid arthritis (SNOMED CT 63680440) Active Condition Jun 25, 2014 Entered By: MINNA PANTOJA Comment: 05/17 sed rate 47 R F 20 [facility] Relationship problems Inactive Condition 07/24/2014 [facility] ICD-10-CM K21.9 Gastro-esophageal reflux disease without esophagitis with Provider Comments: GERD - Gastro-esophageal reflux disease ([facility] [id number]) active Diagnosis [facility] ICD-10-CM F43.12 Post-traumatic stress d isorder, chronic with Provider Comments: Post-Traumatic Stress Disorder, Chronic active Diagnosis [facility] ICD-10-CM I35.9 Nonrheumatic aortic valv e disorder, unspecified with Provider Comments: Aortic Valve Disorder ([facility] 8617725) active Diagnosis [place] ICD-10-CM I35.9 Nonrheumatic aortic valv e disorder, unspecified with Provider Comments: Nonrheumatic Aortic Valve Disorder, unspecified active Diagnosis [place] ICD-10-CM J44.9 Chronic obstructive pulm onary disease, unspecified with Provider Comments: Chronic obstructive lung disease ([facility] [id number]) active Diagnosis [place] ICD-10-CM I10. Essential (primary) hyper tension with Provider Comments: Hypertension ([facility] 11263366) active Diagnosis [place] ICD-10-CM Z76.0 Encounter for issue of r epeat prescription with Provider Comments: Issue of Repeat Prescription active Diagnosis [facility] Medications Combined list of all outpatient medications [...] DAILY NEEDED FOR SHORTNESS OF BREATH 05/23/2019 [id number] 03/07/2019 ELLEN POST 06/11/2018 [facility] ALENDRONATE 70MG TAB TAKE ONE TABLET BY MOUTH 1 TIME PER WEEK TAKE 30 MINUTES BEFORE FIRST FOOD, BEVERAGE OR MEDICATION OF THE DAY. DRINK WITH FULL GLASS OF WATER. REMAIN IN UPRIGHT POSITION FOR AT LEAST 30 MINUTES FOLLOWING DOSE. ACTIVE/SUSP 04/16/2020 [id number] 11/01/2019 CRISELDA 05/27/2019 [facility] ALENDRONATE 70MG TAB TAKE ONE TABLET BY MOUTH 1 TIME PER WEEK TAKE 30 MINUTES BEFORE FIRST FOOD, BEVERAGE OR MEDICATION OF THE DAY. DRINK WITH FULL GLASS OF WATER. REMAIN IN UPRIGHT POSITION FOR AT LEAST 30 MINUTES FOLLOWING DOSE. DISCONTINUE 05/23/2019 [id number] 03/14/2019 ELLEN POST 05/22/2018 [facility] AMLODIPINE BESYLATE 5MG/BENAZEPRIL HCL 10MG CAP TAKE 1 CAPSULE BY MOUTH ONCE DAILY ACTIVE 05/28/2020 [id number] 10/19/2019 CRISELDA 07/31/2019 [facility] AMLODIPINE BESYLATE 5MG/BENAZEPRIL HCL 10MG CAP TAKE 1 CAPSULE BY MOUTH ONCE DAILY DISCONTINUE 08/16/2019 [id number] 05/02/2019 ELLEN POST 08/15/2018 [facility] ASCORBIC ACID 500MG TAB TAKE O NE TABLET BY MOUTH ONCE DAILY ACTIVE SHUKRI HALL 10/06/2017 [facility] ATORVASTATIN CA 10MG TAB TAKE ONE TABLET BY MOUTH AT BEDTIME FOR CHOLESTEROL - DO NOT TAKE WITH GRAPEFRUIT JUICE ACTIVE/SUSP 04/16/2020 [id number] 12/19/2019 CRISELDA 07/02/2019 [facility] ATORVASTATIN CA 10MG TAB TAKE ONE TABLET BY MOUTH AT BEDTIME FOR CHOLESTEROL - DO NOT TAKE WITH GRAPEFRUIT JUICE DISCONTINUE 07/17/2019 [id number] 04/03/2019 ELLEN POST 07/17/2018 [facility] ATORVASTATIN CA 20MG TAB TAKE ONE-HALF TABLET BY MOUTH AT BEDTIME FOR CHOLESTEROL - DO NOT TAKE WITH GRAPEFRUIT JUICE DISCONTINUE 05/23/2019 [id number] 03/26/2019 ELLEN POST 06/15/2018 [facility] BACLOFEN 20MG TAB TAKE ONE-ARAM F TABLET BY MOUTH AT BEDTIME -(MAY CAUSE DROWSINESS) HOLD 2020 [id number] 06/14/2019 CRISELDA 06/14/2019 [facility] BACLOFEN 20MG TAB TAKE ONE-ARAM F TABLET BY MOUTH AT BEDTIME -(MAY CAUSE DROWSINESS) DISCONTINUE 05/23/2019 [id number] 03/26/2019 ELLEN POST 05/22/2018 [facility] CHOLECALCIFEROL 1000UNT TAB TA KE TWO TABLETS BY MOUTH TWICE A DAY ACTIVE SHUKRI HALL 08/31/2016 [facility] DULOX[facility] HCL 30MG CAP,EC TOMAS E 1 CAPSULE BY MOUTH ONCE DAILY ACTIVE CRISELDA 05/28/2019 [facility] FERROUS SO4 324MG TAB,EC TAKE ONE TABLET BY MOUTH ONCE DAILY ACTIVE SHUKRI HALL 10/06/2017 [facility] FLUTICASONE 200MCG/VILANTEROL 25MCG INHL,ORAL,30D INHALE 1 INHALATION (200/25) BY MOUTH ONCE DAILY FOR CHRONIC OBSTRUCTIVE PULMONARY DISEASE OR EMPHYSEMA(CONSULT APPROVED) ACTIVE 06/01 [id number] 09/16/2019 CRISELDA 06/12/2019 [facility] FLUTICASONE 200MCG/VILANTEROL 25MCG INHL,ORAL,30D INHALE 1 INHALATION (200/25) BY MOUTH ONCE DAILY FOR CHRONIC OBSTRUCTIVE PULMONARY DISEASE OR EMPHYSEMA(CONSULT APPROVED) DISCONTINUE 05/23/2019 [id number] 04/16/2019 ELLEN POST 05/25/2018 [facility] FOLIC ACID 1MG TAB TAKE ONE TA BLET BY MOUTH QD WITH FOOD ACTIVE 03/07/2020 [id number] 10/24/2019 ELLEN POST 05/07/2019 [facility] FOLIC ACID 1MG TAB TAKE ONE TA BLET BY MOUTH QD WITH FOOD DISCONTINUE 05/23/2019 [id number] 02/06/2019 ELLEN POST 05/22/2018 [facility] HYDROCODONE 10MG/ACETAMINOPHEN 325MG TAB TAKE ONE TABLET BY MOUTH EVERY 4 HOURS NEEDED ACTIVE DAVID ANTHONY 05/17/2016 [facility] LIDOCAINE 5% PATCH APPLY 1 PAT CH TO THE SKIN ONCE DAILY FOR PAIN (PATCH SHOULD BE REMOVED AFTER 12 HOURS) ACTIVE/SUSP 03/07/2020 [id number] 11/25/2019 ELLEN POST 03/10/2019 [facility] METHOTREXATE NA 2.5MG TAB TAKE SIX TABLETS BY MOUTH 1 TIME PER WEEK (ONCE EVERY 7 DAYS) CHOICE ACTIVE/SUSP 03/07/2020 [id number] 11/04/2019 ELLEN POST 03/07/2019 [facility] METHOTREXATE NA 2.5MG TAB TAKE SIX TABLETS BY MOUTH 1 TIME PER WEEK (ONCE EVERY 7 DAYS) CHOICE DISCONTINUED (EDIT) 07/18/2019 [id number] 10/17/2018 JOE PABLO 07/19/2018 [facility] OMEPRAZOLE 20MG CAP,EC TAKE 2 CAPSULES BY MOUTH ONCE DAILY FOR THE STOMACH DISCONTINUED 04/16/2020 [id number] 06/14/2019 CRISELDA 06/14/2019 [facility] OMEPRAZOLE 20MG CAP,EC TAKE 2 CAPSULES BY MOUTH ONCE DAILY FOR THE STOMACH DISCONTINUE 05/23/2019 [id number] 03/26/2019 ELLEN POST 06/15/2018 [facility] PANTOPRAZOLE NA 40MG TAB,EC TA KE ONE TABLET BY MOUTH EVERY MORNING FOR THE STOMACH ACTIVE/SUSP 05/28/2020 [id number] 11/14/2019 CRISELDA 05/28/2019 [facility] ROPINIROLE HCL 2MG TAB TAKE ON E TABLET BY MOUTH ONCE DAILY ACTIVE CRISELDA 05/28/2019 [facility] TERAZOSIN HCL 2MG CAP TAKE 1 C APSULE BY MOUTH TWICE A DAY FOR PROSTATE / MAY CAUSE LIGHTHEADEDNESS WHEN STANDING ACTIVE 03/07/2020 [id number] 10/24/2019 ELLEN POST 05/07/2019 [facility] TERAZOSIN HCL 2MG CAP TAKE 1 C APSULE BY MOUTH TWICE A DAY FOR PROSTATE / MAY CAUSE LIGHTHEADEDNESS WHEN STANDING DISCONTINUE 05/23/2019 [id number] 02/11/2019 ELLEN POST 05/22/2018 [facility] ZOLPIDEM TARTRATE 10MG TAB TOMAS E ONE TABLET BY MOUTH AT BEDTIME ACTIVE ELLEN POST 05/22/2018 [facility] Allergies, Adverse Reactions, Alerts Combined list of all allergies from all Department of Defense and [facility] facilities. It does not include entries [...] 1) all immunizations on record at all [facility] ies, and 2) all available immunizations on record at Department of Defense (Do D) facilities. Some immunizations on record at [facility] may not be included. Immunization Series Date Given Administered By Site Reaction Lot Number CVX Code Drug Qa Consultant Status Comments Source INFLUENZA, UNSPECIFIED FORMULATION 02/01/2018 88 completed [facility]ONICA MCDONNE[facility] TDAP 2016 115 completed [facility] INFLUENZA, UNSPECIFIED FORMULATION 01/02/2016 88 completed [facility] PNEUMOCOCCAL CONJUGATE PCV 13 08/14/2014 133 completed [facility] INFLUENZA, UNSPECIFIED FORMULATION 06/01/2014 88 completed [facility] INFLUENZA, UNSPECIFIED FORMULATION 01/01/2013 88 completed [facility] PNEUMOCOCCAL, UNSPECIFIED FORMULATION 01/01/2011 109 completed VERONICA MCDONNELL TD(ADULT) UNSPECIFIED FORMULATION 10/01/2006 139 completed [facility] Results Combined list of recent chemistry, hematology and other laboratory results going back no more than 15 months from the Department of Defense and [facility] facilities. Order Name Results Value Reference Range Date Interpretation Specimen Comments Source CBC PLATELET MEAN VOLUME [ENTI TIC VOLUME] [...] BLOOD No comment entered. [facility]ON[facility] CBC MCHC [MASS/VOLUME] BY AUTOMATED COUNT 32.8 g/dL 32 - 36 05/28/2019 Specimen T ype: BLOOD No comment entered. [facility] CBC SEGMENTED NEUTROPHILS/100 LEUKOCYTES IN BLOOD BY AUTOMATED COUNT 66.3 % 05/28/2019 Specimen Type: BLOOD No comment entered. [facility] CBC NEUTROPHILS [#/VOLUME] IN BLOOD BY AUTOMATED COUNT 3.7 K/cmm 2.4 - 7.6 05/28/2019 Specimen Type: BLOOD No comment entered. [facility] CBC LYMPHOCYTES/100 LEUKOCYTES IN BLOOD BY AUTOMATED COUNT 20.6 % 05/05 Specimen Type: BLOOD No comment entered. [facility] CBC LYMPHOCYTES [#/VOLUME] IN BLOOD BY AUTOMATED COUNT 1.2 K/cmm 1.0 - 4.8 05/28/2019 Specimen Type: BLOOD No comment entered. [facility] CBC MONOCYTES/100 LEUKOCYTES I N BLOOD BY AUTOMATED COUNT 8.3 % 05/28 Specimen T ype: BLOOD No comment entered. [facility] CBC MONOCYTES [#/VOLUME] IN BLOOD BY AUTOMATED COUNT 0.5 K/cmm 0.1 - 1.0 05/28/2019 Specimen Type: BLOOD No comment entered. [facility] CBC EOSINOPHILS/100 LEUKOCYTES IN BLOOD BY AUTOMATED COUNT 4.0 % 05/28 Specimen T ype: BLOOD No comment entered. [facility] CBC EOSINOPHILS [#/VOLUME] IN BLOOD BY AUTOMATED COUNT 0.2 K/cmm 0.0 - 0.4 05/28/2019 Specimen Type: BLOOD No comment entered. [facility] CBC BASOPHILS/100 LEUKOCYTES I N BLOOD BY AUTOMATED COUNT 0.8 % 05/28 Specimen T ype: BLOOD No comment entered. [facility] CBC BASOPHILS [#/VOLUME] IN BLOOD BY AUTOMATED COUNT 0.0 K/cmm 0.0 - 0.2 05/28/2019 Specimen Type: BLOOD No comment entered. [facility] LIPID PROFILE CHOLESTEROL [MAS S/VOLUME] IN SERUM OR PLASMA 150 mg/dL 118 - 200 05/28/2019 Specimen Type: SERUM No comment entered. [facility] LIPID PROFILE TRIGLYCERIDE [MA SS/VOLUME] IN SERUM OR PLASMA 53 mg/dL Specimen Type: SERUM No comment entered. [facility] LIPID PROFILE LDL CHOLESTEROL (CALCU LATED) 86 05/28/2019 Specimen Type: SERUM No comment entered. [facility] LIPID PROFILE CHOLESTEROL IN H DL [MASS/VOLUME] IN SERUM OR PLASMA 53 mg/dL Specimen Type: SERUM No comment entered. [facility] RENAL+LIVER PROFILE (FV) GLUCO SE [MASS/VOLUME] IN SERUM OR PLASMA 102 mg/dL 70 - 110 05/28/2019 Specimen Type: SERUM No comment entered. [facility] RENAL+LIVER PROFILE (FV) ALBUM IN [MASS/VOLUME] IN SERUM OR PLASMA 4.5 g/dL 3.4 - 5.0 05/28/2019 Specimen Type: SERUM No comment entered. [facility] RENAL+LIVER PROFILE (FV) ASPAR LEE AMINOTRANSFERASE [ENZYMATIC ACTIVITY/VOLUME] IN SERUM OR PLASMA 26 U/L 15 - 37 05/28/2019 Specimen Type: SERUM No comment entered. [facility] RENAL+LIVER PROFILE (FV) BILIR UBIN.TOTAL [MASS/VOLUME] IN SERUM OR PLASMA 0.46 mg/dL 0.3 - 1.2 05/28/2019 Specimen Type: SERUM No comment entered. [facility] RENAL+LIVER PROFILE (FV) CHLOR RAYMUNDO [MOLES/VOLUME] IN SERUM OR PLASMA 104 mmol/L 98 - 107 05/28/2019 Specimen Type: SERUM No comment entered. [facility] RENAL+LIVER PROFILE (FV) PROTE IN [MASS/VOLUME] IN SERUM OR PLASMA 7.3 g/dL 6.1 - 7.9 05/28/2019 Specimen Type: SERUM No comment entered. [facility] RENAL+LIVER PROFILE (FV) SODIU M [MOLES/VOLUME] IN SERUM OR PLASMA 140 mmol/L 136 - 145 05/28/2019 Specimen Type: SERUM No comment entered. [facility] RENAL+LIVER PROFILE (FV) POTAS SIUM [MOLES/VOLUME] IN SERUM OR PLASMA 4.3 mmol/L 3.5 - 5.1 05/28/2019 Specimen Type: SERUM No comment entered. [facility] RENAL+LIVER PROFILE (FV) "CARB ON DIOXIDE, TOTAL [MOLES/VOLUME] IN SERUM OR PLASMA" 29 mmol/L 21 - 32 05/28/2019 Specimen Type: SERUM No comment entered. [facility] RENAL+LIVER PROFILE (FV) UREA NITROGEN [MASS/VOLUME] IN SERUM OR PLASMA 19 mg/dL 6 - 20 05/28/2019 Specimen Type: SERUM No comment entered. [facility] RENAL+LIVER PROFILE (FV) CALCI UM [MASS/VOLUME] IN SERUM OR PLASMA 9.3 mg/dL 8.9 - 10.3 05/28/2019 Specimen Type: SERUM No comment entered. [facility] RENAL+LIVER PROFILE (FV) JONATHAN NE AMINOTRANSFERASE [ENZYMATIC ACTIVITY/VOLUME] IN SERUM OR PLASMA BY NO ADDITION OF P-5'-P 20 U/L 0 - 63 05/28/2019 Specimen T ype: SERUM No comment entered. [facility] RENAL+LIVER PROFILE (FV) ALKAL INE PHOSPHATASE [ENZYMATIC ACTIVITY/VOLUME] IN SERUM OR PLASMA 61 U/L 32 - 126 05/28/2019 Specimen Type: SERUM No comment entered. [facility] RENAL+LIVER PROFILE (FV) eGFR 77 05/28/2019 Specimen Type: SERUM No comment entered. [facility] RENAL+LIVER PROFILE (FV) CREAT ININE [MASS/VOLUME] IN SERUM OR PLASMA 0.96 mg/dL .61 - 1.24 05/28/2019 Specimen Type: SERUM No comment entered. [facility] URINALYSIS COLOR OF URINE ELSA Keyes 05/28/2019 Specimen Type: URINE No comment entered. [...] No comment entered. [facility] URINALYSIS BILIRUBIN.TOTAL [KS ESENCE] IN URINE BY TEST STRIP -QUAL 05/05 Specimen Type: URINE No comment entered. [facility] URINALYSIS HEMOGLOBIN [PRESENCE] IN URINE BY TEST STRIP -QUAL - "TRACE" 05/28/2019 Specimen Type: URINE No comment entered. [facility] URINALYSIS KETONES [MASS/VOLUME] IN URINE BY TEST STRIP -QUAL - "TRACE" 05/28/2019 Specimen Type: URINE No comment entered. CHRISTTJEANNETTE [facility]ON[facility] URINALYSIS LEUKOCYTE ESTERASE [PRESENCE] IN URINE BY TEST STRIP NEG.Rodrick/uL - 74 05/28/2019 Specimen Type: URINE No comment entered. [facility]ONICA MCDONNELL CBC PLATELET MEAN VOLUME [ENTI TIC VOLUME] IN BLOOD BY AUTOMATED COUNT 8.4 fL 7.4 - 10.4 05/22/2018 Specimen Type: BLOOD No comment entered. [facility] CBC ERYTHROCYTE DISTRIBUTION W IDTH [RATIO] BY AUTOMATED COUNT 16.5 % 11.5 - 14.5 05/22/2018 H Specimen Type: BLOOD No comment entered. [facility] CBC HEMATOCRIT [VOLUME FRACTIO N] OF BLOOD BY AUTOMATED COUNT 36.5 % 40 - 52 05/22/2018 L Specimen Type: BLOOD No comment entered. [facility] CBC HEMOGLOBIN [MASS/VOLUME] IN BLOO D 12.0 g/dL 13 - 18 05/22/2018 L Specimen Type: BLOOD No comment entered. [facility] CBC PLATELETS [#/VOLUME] IN BLOOD BY AUTOMATED COUNT 263 K/cmm 150 - 440 05/22/2018 Specimen Type: BLOOD No comment entered. [facility] CBC LEUKOCYTES [#/VOLUME] IN BLOOD B Y AUTOMATED COUNT 5.1 K/cmm 3.8 - 10.6 05/22/2018 Specimen Type: BLOOD No comment entered. [facility] CBC ERYTHROCYTES [#/VOLUME] IN BLOOD BY AUTOMATED COUNT 4.09 M/cmm 4.4 - 5.9 05/22/2018 L Specimen Type: BLOOD No comment entered. [facility] CBC MCV [ENTITIC VOLUME] BY AUTOMATE D COUNT 89.4 fL 80 - 100 05/22/2018 Specimen T ype: BLOOD No comment entered. [facility] CBC MCH [ENTITIC MASS] BY AUTOMATED COUNT 29.4 pg 26 - 34 05/22/2018 Specimen T ype: BLOOD No comment entered. [facility] CBC MCHC [MASS/VOLUME] BY AUTOMATED COUNT 32.9 g/dL 32 - 36 05/22/2018 Specimen T ype: BLOOD No comment entered. [facility] CBC SEGMENTED NEUTROPHILS/100 LEUKOCYTES IN BLOOD BY AUTOMATED COUNT 57.7 % 05/22/2018 Specimen Type: BLOOD No comment entered. [facility] CBC NEUTROPHILS [#/VOLUME] IN BLOOD BY AUTOMATED COUNT 2.9 K/cmm 2.4 - 7.6 05/22/2018 Specimen Type: BLOOD No comment entered. [facility] CBC LYMPHOCYTES/100 LEUKOCYTES IN BLOOD BY AUTOMATED COUNT 24.6 % 05/04 Specimen Type: BLOOD No comment entered. [facility] CBC LYMPHOCYTES [#/VOLUME] IN BLOOD BY AUTOMATED COUNT 1.3 K/cmm 1.0 - 4.8 05/22/2018 Specimen Type: BLOOD No comment entered. [facility] CBC MONOCYTES/100 LEUKOCYTES I N BLOOD BY AUTOMATED COUNT 9.7 % 05/22 Specimen T ype: BLOOD No comment entered. [facility] CBC MONOCYTES [#/VOLUME] IN BLOOD BY AUTOMATED COUNT 0.5 K/cmm 0.1 - 1.0 05/22/2018 Specimen Type: BLOOD No comment entered. [facility] CBC EOSINOPHILS/100 LEUKOCYTES IN BLOOD BY AUTOMATED COUNT 7.3 % 05/22 Specimen T ype: BLOOD No comment entered. [facility] CBC EOSINOPHILS [#/VOLUME] IN BLOOD BY AUTOMATED COUNT 0.4 K/cmm 0.0 - 0.4 05/22/2018 Specimen Type: BLOOD No comment entered. [facility] CBC BASOPHILS/100 LEUKOCYTES I N BLOOD BY AUTOMATED COUNT 0.7 % 05/22 Specimen T ype: BLOOD No comment entered. [facility] CBC BASOPHILS [#/VOLUME] IN BLOOD BY AUTOMATED COUNT 0.0 K/cmm 0.0 - 0.2 05/22/2018 Specimen Type: BLOOD No comment entered. [facility] LIPID PROFILE CHOLESTEROL.TOTA L/CHOLESTEROL IN HDL [MASS RATIO] IN SERUM OR PLASMA 2.8 05/22/2018 Specimen Type: SERUM No comment entered. [facility] LIPID PROFILE CHOLESTEROL [MAS S/VOLUME] IN SERUM OR PLASMA 131 mg/dL 118 - 200 05/22/2018 Specimen Type: SERUM No comment entered. [facility] LIPID PROFILE TRIGLYCERIDE [MA SS/VOLUME] IN SERUM OR PLASMA 53 mg/dL Specimen Type: SERUM No comment entered. [facility] LIPID PROFILE CHOLESTEROL IN L DL [MASS/VOLUME] IN SERUM OR PLASMA BY CALCULATION 73 mg/dL 05/22/2018 Specimen Type: SERUM No comment entered. [facility] LIPID PROFILE CHOLESTEROL IN H DL [MASS/VOLUME] IN SERUM OR PLASMA 47 mg/dL Specimen Type: SERUM No comment entered. [facility] PSA (FV) PROSTATE SPECIFIC AG [MASS/VOLUME] IN SERUM OR PLASMA 0.51 ng/mL 0.0 - 4.0 05/22/2018 Specimen Type: SERUM No comment entered. [facility] RENAL+LIVER PROFILE GLUCOSE [M ASS/VOLUME] IN SERUM OR PLASMA 87 mg/dL 70 - 110 05/22/2018 Specimen Type: SERUM No comment entered. [facility] RENAL+LIVER PROFILE ALBUMIN [M ASS/VOLUME] IN SERUM OR PLASMA 4.2 g/dL 3.4 - 5.0 05/22/2018 Specimen Type: SERUM No comment entered. [facility] RENAL+LIVER PROFILE ASPARTATE AMINOTRANSFERASE [ENZYMATIC ACTIVITY/VOLUME] IN SERUM OR PLASMA 31 U/L 15 - 37 05/22/2018 Specimen Type: SERUM No comment entered. [facility] RENAL+LIVER PROFILE BILIRUBIN. TOTAL [MASS/VOLUME] IN SERUM OR PLASMA 0.57 mg/dL 0.3 - 1.2 05/22/2018 Specimen Type: SERUM No comment entered. [facility] RENAL+LIVER PROFILE CHLORIDE [ MOLES/VOLUME] IN SERUM OR PLASMA 106 mmol/L 98 - 107 05/22/2018 Specimen Type: SERUM No comment entered. [facility] RENAL+LIVER PROFILE PROTEIN [M ASS/VOLUME] IN SERUM OR PLASMA 6.7 g/dL 6.4 - 8.2 05/22/2018 Specimen Type: SERUM No comment entered. [facility] RENAL+LIVER PROFILE SODIUM [MO LES/VOLUME] IN SERUM OR PLASMA 140 mmol/L 136 - 145 05/22/2018 Specimen Type: SERUM No comment entered. [facility] RENAL+LIVER PROFILE POTASSIUM [MOLES/VOLUME] IN SERUM OR PLASMA 4.1 mmol/L 3.5 - 5.1 05/22/2018 Specimen Type: SERUM No comment entered. [facility] RENAL+LIVER PROFILE CARBON TEQUILA XIDE, TOTAL [MOLES/VOLUME] IN SERUM OR PLASMA 26 mmol/L 21 - 32 05/22/2018 Specimen Type: SERUM No comment entered. [facility] RENAL+LIVER PROFILE UREA NITRO GEN [MASS/VOLUME] IN SERUM OR PLASMA 16 mg/dL 6 - 20 05/22/2018 Specimen Type: SERUM No comment entered. [facility] RENAL+LIVER PROFILE CALCIUM [M ASS/VOLUME] IN SERUM OR PLASMA 8.7 mg/dL 8.9 - 10.3 05/22/2018 L Specimen Type: SERUM No comment entered. [facility] RENAL+LIVER PROFILE ALANINE AM INOTRANSFERASE [ENZYMATIC ACTIVITY/VOLUME] IN SERUM OR PLASMA BY NO ADDITION OF P-5'-P 25 U/L 0 - 63 05/22/2018 Specimen Type: SERUM No comment entered. [facility] RENAL+LIVER PROFILE ALKALINE P HOSPHATASE [ENZYMATIC ACTIVITY/VOLUME] IN SERUM OR PLASMA 61 U/L 32 - 126 05/22/2018 Specimen Type: SERUM No comment entered. [facility] RENAL+LIVER PROFILE GLOMERULAR FILTRATION RATE/1.73 SQ M.PREDICTED [VOLUME RATE/AREA] IN SERUM OR PLASMA BY CREATININE-BASED FORMULA (MDRD) 123 Seeeval 05/22/2018 Specimen Type: SERUM No comment entered. [facility] RENAL+LIVER PROFILE CREATININE [MASS/VOLUME] IN SERUM OR PLASMA 0.64 mg/dL .61 - 1.24 05/22/2018 Specimen Type: SERUM No comment entered. [facility] URINALYSIS COLOR OF URINE Yello w 05/22/2018 Specimen Type: URINE No comment entered. [facility] URINALYSIS SPECIFIC GRAVITY OF URINE 1.019 05/22/2018 Specimen Type: URINE No comment entered. [facility] URINALYSIS BILIRUBIN.TOTAL [KS ESENCE] IN URINE BY TEST STRIP NegativeQUAL. - "Neg" 05/22/2018 Specimen Type: URINE No comment entered. [facility] KETONES [MASS/VOLUME] IN URINE BY TEST STRIP Negativemg/dL 05/22/2018 Specimen Type: URINE No comment entered. [facility] GLUCOSE [MASS/VOLUME] IN URINE BY TEST STRIP Negativemg/dL 05/22/2018 Specimen Type: URINE No comment entered. [facility] PROTEIN [MASS/VOLUME] IN URINE BY TEST STRIP Negativemg/dL 05/22/2018 Specimen Type: URINE No comment entered. [facility] PH OF URINE BY TEST STRIP 5.0 PH 5 - 9 05/22/2018 Specimen Type: URINE No comment entered. [facility] HEMOGLOBIN [PRESENCE] IN URINE BY TEST STRIP NegativeQUAL. . - "Neg" 05/22/2018 Specimen Type: URINE No comment entered. [facility] UR[facility] NITRITE [PRESENCE] IN URI NE BY TEST STRIP NegativeQUAL. . - "Neg" 05/22/2018 Specimen Type: URINE No comment entered. [facility] LEUKOCYTE ESTERASE [PRESENCE] IN URINE BY TEST STRIP NegativeQUAL. . - "Neg" 05/22/2018 Specimen Type: URINE No comment entered. [facility] URINALYSIS UROBILINOGEN [MASS/ VOLUME] IN URINE BY TEST STRIP <2.0mg/dL - "Normal: <2 mg 05/22/2018 Specimen Type: URINE No comment entered. [facility] URINALYSIS APPEARANCE OF URINE Clear 05/22/2018 Specimen Type: URINE No comment entered. [facility] Vital Signs Combined list of inpatient and outpatient Vital Signs from all Department [facility] and/or [facility] medical facilities within the last 15 months. The included entries comply with the patient's data sharing authorizations. Vital Sign Value Date Comments Source PAIN 6 05/28 12:52:00 [facility] Encounters Combined list of encounters at Department of [facility] and/or [facility] ([place] ) for the last 15 months. Not all [place] inpatient encounters are included. The incl uded entries comply with the patient's data sharing authorizations. Location Location Details Encounter Type Encounter Number Reason For Visit Attending Provider ADM Date DC Date Status Disposition Source OFFICE/OUT PATIENT VISIT EST [id number] ICD-10- CM Z76.0 Encounter for issue of repeat prescription with Provider Comments: Issue of Repeat Prescription REBECCA CASTRO 04/19/2018 [facility] OFFICE/OUT PATIENT VISIT EST [id number] ICD-10-CM I10. Essential (primary) hypertension with Provider Comments: Hypertension ([facility] [id number]) ELLEN POST 05/22/2018 [place] SULTATION [id number] ICD-10-CM J44.9 Chronic obstructive pulmonary disease, unspecified with Provider Comments: Chronic obstructive lung disease (SCT [id number]) JASON LARRY 05/25/2018 [place] [id number] ICD-10-CM I35.9 Nonrheumatic aortic valve disorder, unspecified with Provider Comments: Nonrheumatic Aortic Valve Disorder, unspecified MARY FIELD 06/06/2018 [facility] Outpatient Encounter [id number] ICD-10-CM I35.9 Nonrheumatic aortic valve disorder, unspecified with Provider Comments: Aortic Valve Disorder (SCT [id number]) ELLEN POST 06/06/2018 [facility] Outpatient Encounter [id number] _MAPID:en [id number] 07/12/2018 [facility] Outpatient Encounter [id number] _MAPID:en [id number] 08/15/2018 [facility] Outpatient Encounter [id number] ICD-10- CM F43.12 Post-traumatic stress disorder, chronic with Provider Comments: Post-Traumatic Stress Disorder, Chronic BENY LEDEZMA 08/15/2018 [facility] Outpatient Encounter [id number] _MAPID: endReUZAIR Johnson 08/15/2018 [facility] Outpatient Encounter [id number] _MAPID: endRegaro BUTCHERYOKASTAUZAIR 08/29/2018 [facility] Outpatient Encounter [id number] _MAPID:en dReason7 12/31/2018 [facility] Outpatient Encounter [id number] _MAPID:en dReason6 01/07/2019 [facility] Outpatient Encounter [id number] _MAPID:en dReason5 02/13/2019 [facility] Outpatient Encounter [id number] _MAPID:en dReason4 03/07/2019 [facility] Outpatient Encounter [id number] _MAPID:en dReason3 05/16/2019 [facility] Outpatient Encounter [id number] _MAPID:en dReason2 05/27/2019 [facility] OFFICE/OUT PATIENT VISIT EST [id number] ICD-10- CM K21.9 Gastro-esophageal reflux disease without esophagitis with Provider Comments: GERD - Gastro-esophageal reflux disease (SCT [id number]) CRISELDA 05/28/2019 [facility] Procedures No Data Provided for This Section Social History Combined list of available smoking, tobacco, and other social history on record at Department of Defense and/or Veterans Affairs facilities. The included entrie s comply with the patient's data sharing authorizations. Social History Type Response Date Comment Source Tobacco smoking status NHIS VA-TOBACCO QUIT 15 YRS OR MORE 03/07/2019 [facility] History of tobacco use V16 T OBACCO USE SCREEN 03/07/2019 [facility] History of tobacco use VA-TO BACCO FORMER USER 03/07/2019 [facility] History of tobacco use VA-TO BACCO FORMER USER 05/03/2018 [facility] History of tobacco use VA-TO BACCO QUIT 15 YRS OR MORE 05/03/2018 [facility] History of tobacco use V16 T OBACCO USE SCREEN 05/03/2018 [facility] History of tobacco use V16 T OBACCO USE SCREEN 08/01/2017 [facility] History of tobacco use V16 T OBACCO CESSATION >7 YEARS 08/01/2017 [facility] History of tobacco use V16 T OBACCO USE SCREEN 10/29/2015 [facility] History of tobacco use V16 T OBACCO CESSATION >7 YEARS 10/29/2015 [facility] History of tobacco use V16 T OBACCO USE SCREEN 06/25/2014 [facility] History of tobacco use V16 T OBACCO CESSATION >7 YEARS 06/25/2014 quit 20 years ago [facility] History of tobacco use V16 T OBACCO USE SCREEN 05/24/2013 [facility] History of tobacco use V16 T OBACCO CESSATION >7 YEARS 05/24/2013 [facility] Assessment and Plan No Data Provided for This Section Plan of Care No Data Provided for This Section Family History No Data Provided for This Section Advance Directives No Data Provided for This Section Functional Status No Data Provided for This Section
--- OUTSIDE RECORDS SUMMARY | 2019-10-16 09:37 | XMS REPORT | Encounter Summary ---
Author Author Department of [facility] SOLITARIO duenas Organization Department of [facility] Address [address] [place] [address] Phone Unavailable Care Team Providers Care Technical Maintenance Specialist Name Role Phone DINO CRISELDA PCP Unavailable [...] Mar 03, 2010 RR PART A [id number] SOLITARIO CHEW PATIENT MEDICARE (WNR) MEDICARE (M) RR PART B Mar 03, 2010 RR PART B [id number] SOLITARIO CHEW PATIENT [facility] MEDIGAP PLAN F RAILROAD PLAN F Apr [id number] 15 [id number] SOLITARIO CHEW PATIENT Selected Encounter This section includes the information on record at NE for the Encounter. Date/Time Encounter Type Encounter [...] activities for the patient fr om all NE treatment facilities. This section includes future appointments and fu ture orders which are active, pending or scheduled. Future Appointments This section includes appointments that were scheduled t o occur 6 months from the date of the Encounter, up to a maximum of 20 appointme nts. The data comes from all NE treatment facilities. Appointment Date/Time Appointment Type Appointment Gauri westfall Name Feb 21, 2019 10:00 AM AMBULATORY - NONE [facility] [place] May 16, 2019 08:00 AM AMBULATORY - NONE [facility] May 28, 2019 10:30 AM AMBULATORY - NONE [facility] May 28, 2019 12:30 PM AMBULATORY - MEDICINE [facility] Surgical Procedures: All associated to [...] Encoun ter. The data comes from the NE facility where the Encounter took place. Date/Time Smoking Status/Tobacco Use Comment [facility] it May 03, 2018 12:14 PM [...] patient. The data comes from a ll NE treatment facilities. It does not list Allergies/ADRs [...] VA pharmacy in the last 15 m [facility], and 2) all medications recorded in the NE medical record as "non-VA medic ations". Pharmacy terms refer to VA pharmacy's work on prescriptions. VA patient s are advised to take their medications as instructed by their health care team. The data comes from all NE treatment facilities. Glossary of Pharmacy Terms:Active = A prescription that can be filled at the local NE pharmacy.Active: On Hold = An active prescription that will not be filled until pharmacy resolves the issue.Active: Susp = An active prescription that is not scheduled to be filled yet.Clinic Order = A medication received during a visit to a NE clinic or emergency department (currently not available).Discontinued [...] may be a prescription from either the NE or other providers that was filled outside [...] SHORTNESS OF BREATH 120 May 23, 2019 [id number] Mar 07, 2019 ELLEN POST ALENDRONATE 70MG TAB Active: Susp TAKE ONE TABLET BY MOUTH 1 TIME PER WEEK TAKE 30 MINUTES BEFORE FIRST FOOD, BEVERAGE OR MEDICATION OF THE DAY. DRINK WITH FULL GLASS OF WATER. REMAIN IN UPRIGHT POSITION FOR AT LEAST 30 MINUTES FOL LOWING DOSE. 12 Apr 16, 2020 [id number] Nov 01, 2019 CRISELDA SUN [facility] ALENDRONATE 70MG TAB Discontinued TAKE ONE TABLET BY MOUTH 1 TIME PER WEEK TAKE 30 MINUTES BEFORE FIRST FOOD, BEVERAGE OR MEDICATION OF THE DAY. DRINK WITH FULL GLASS OF WATER. REMAIN IN UPRIGHT POSITION FOR AT LEAST 30 MINUTES FOL LOWING DOSE. 12 May 23, 2019 [id number] Mar 14, 2019 ELLEN POST [facility] AMLODIPINE BESYLATE 5MG/BENAZEPRIL HCL 10MG CAP Active TAKE 1 CAPSULE BY MOUTH ONCE DAILY 90 May 28, 2020 [id number] Oct 19, 2019 CRISELDA SUN [facility] AMLODIPINE BESYLATE 5MG/BENAZEPRIL HCL 10MG CAP Discontinued TAKE 1 CAPSULE BY MOUTH ONCE DAILY 90 August 16, 2019 [id number] May 02, 2019 ELLEN POST [facility] ASCORBIC ACID 500MG TAB Non-VA TAKE ONE TABLET BY MOUTH ONCE DAILY Non-VA Documented by: SHUKRI HALL nted at: [facility] ATORVASTATIN CA 10MG TAB Active: Susp TAKE ONE TABLET BY MOUTH AT BEDTIME FOR CHOLESTEROL - DO NOT TAKE WITH GRAPEFRUIT JUICE 90 Apr 16, 2020 [id number] Dec 19, 2019 CRISELDA SUN [facility] ATORVASTATIN CA 10MG TAB Discontinued TAKE ONE TABLET BY MOUTH AT BEDTIME FOR CHOLESTEROL - DO NOT TAKE WITH GRAPEFRUIT JUICE 90 Jul 17, 2019 [id number] Apr 03, 2019 ELLEN POST [facility] ATORVASTATIN CA 20MG TAB Discontinued TAKE ONE-HALF T ABLET BY MOUTH AT BEDTIME FOR CHOLESTEROL - DO NOT TAKE WITH GRAPEFRUIT JUICE 45 May 23, 2019 [id number] Mar 26, 2019 [place] BACLOFEN 20MG TAB Active: On Hold TAKE ONE-HALF TABLET BY MOUTH AT BEDTIME -(MAY CAUSE DROWSINESS) 45 Apr 16, 2020 [id number] Jun 14, 2019 CRISELDA SUN [facility] BACLOFEN 20MG TAB Discontinued TAKE ONE-HALF TABLET BY MOUTH AT BEDTIME -(MAY CAUSE DROWSINESS) 45 May 23, 2019 [id number] Mar 26, 2019 [place] CHOLECALCIFEROL 1000UNT TAB Non-VA TAKE TWO TABLETS BY MOUTH TWICE A DAY Non-VA Documented by: SHUKRI HALL nted at: [facility] DULOXETINE HCL 30MG CAP,EC Non-VA TAKE 1 CAPSULE BY MOUTH ONCE DAILY Non-VA Documented by: CRISELDA SUN nted at: [facility] FERROUS SO4 324MG TAB,EC Non-VA TAKE ONE TABLET BY MOUTH ONCE DAILY Non-VA Documented by: SHUKRI HALL nted at: [facility] FLUTICASONE 200MCG/VILANTEROL 25MCG INHL,ORAL,30D Active INHALE 1 INHALATION (200/25) BY MOUTH ONCE DAILY FOR CHRONIC OBSTRUCTIVE PULMONARY DISEASE OR EMPHYSEMA(CONSULT APPROVED) Jun 12, 2020 [id number] Sep 16, 2019 CRISELDA SUN [facility] FLUTICASONE 200MCG/VILANTEROL 25MCG INHL,ORAL,30D Discontinu ed INHALE 1 INHALATION (200/25) BY MOUTH ONCE DAILY FOR CHRONIC OBSTRUCTIVE PULMONARY DISEASE OR EMPHYSEMA(CONSULT APPROVED) May 23, 2019 [id number] Ja n [facility]MG TAB Active TAKE ONE TABLET BY MOUTH QD WITH FOOD 9 0 Mar 07, 2020 [id number] Oct 24, 2019 ELLEN POST [facility] FOLIC ACID 1MG TAB Discontinued TAKE ONE TABLET BY MOUTH QD WITH FO OD 90 May 23, 2019 [id number] Feb 06, 2019 ELLEN POST [facility] HYDROCODONE 10MG/ACETAMINOPHEN 325MG TAB Non-VA TAKE ONE TABLET BY MOUTH EVERY 4 HOURS NEEDED Non-VA Documented by: RICARDO ANTHONY nted at: [facility] LIDOCAINE 5% PATCH Active: Susp APPLY 1 PATCH TO THE SKIN ONCE DAILY FOR PAIN (PATCH SHOULD BE REMOVED AFTER 12 HOURS) 90 Mar 07, 2020 [id number] Nov 25, 2019 ELLEN POST [facility] METHOTREXATE NA 2.5MG TAB Active: Susp TAKE SIX TABLE TS BY MOUTH 1 TIME PER WEEK (ONCE EVERY 7 DAYS) CHOICE 72 Mar 07, 2020 [id number] Nov ELLEN POST [facility] METHOTREXATE NA 2.5MG TAB Discontinued TAKE SIX TABLE TS BY MOUTH 1 TIME PER WEEK (ONCE EVERY 7 DAYS) CHOICE 24 Jul 18, 2019 [id number] Oct [facility] OMEPRAZOLE 20MG CAP,EC Discontinued TAKE 2 CAPSULES B Y MOUTH ONCE DAILY FOR THE STOMACH 180 Apr 16, 2020 [id number] Jun 14, 2019 CRISELDA SUN [facility] OMEPRAZOLE 20MG CAP,EC Discontinued TAKE 2 CAPSULES B Y MOUTH ONCE DAILY FOR THE STOMACH 180 May 23, 2019 [id number] Mar 26, 2019 ELLEN POST PANTOPRAZOLE NA 40MG TAB,EC Active: Susp TAKE ONE TAB LET BY MOUTH EVERY MORNING FOR THE STOMACH 90 May 28, 2020 [id number] Nov 14, 2019 CRISELDA SUN [facility] HCL 2MG TAB N on-VA TAKE ONE TABLET BY MOUTH ONCE DAILY Non-VA Documented by: CRISELDA SUN nted at: [facility] TERAZOSIN HCL 2MG CAP Active TAKE 1 CAPSULE BY MOUTH TWICE A DAY FOR PROSTATE / MAY CAUSE LIGHTHEADEDNESS WHEN STANDING 180 Mar 07, 2020 [id number] J 2019 ELLEN POST [facility] TERAZOSIN HCL 2MG CAP Discontinued TAKE 1 CAPSULE BY MOUTH TWICE A DAY FOR PROSTATE / MAY CAUSE LIGHTHEADEDNESS WHEN STANDING 180 May 23, 2019 [id number] Feb 11, 2019 ELLEN POST [facility] ZOLPIDEM TARTRATE 10MG TAB Non-VA TAKE [...] problems (conditions). The data comes from all NE treatment facilities. Problem Status Problem Code Date of Onset Date of Resolution Comm ent(s) Provider Source Anemia (SNOMED CT 186258648) Active 285.9 Jul 24, 2014 Entered By: MINNA PANTOJA Comment: 07/16 Hb corrected to 13.5 MINNA PANTOJA KENJI [facility] Aortic Valve Disorder (SCT 5033038) Active 3204538 Jun 06, 2018 Entered By: ELLEN POST Comment: 06/2018 Murmur/ECHO = Mild aortic valve disease, EF 60-65% ELLEN POST [facility] Bilateral posterior vitreous detachment Active 839557660090542 BRAYDEN TUCKER [facility] Chronic obstructive lung disease (SNOMED CT 67487294) Active 1364 5005 Jun 25, 2014 Entered By: MINNA PANTOJA Comment: ex-smoker 0 [facility] Dry eyes Active 709008757 BRAYDEN TUCKER [facility] GERD - Gastro-esophageal reflux disease Active 130206512 SHUKRI HALL [facility] H/O: surgery Active 507316865 Jul 24, 2014 Entered By: MINNA PANTOJA Comment: Colon resection (perforation) 2007Apr 2014 Entered By: MINNA PANTOJA Comment: 2012 colonoscopy negJul 24, 2014 Entered By: MINNA PANTOJA Comment: 2012 L inguinal hernia repair. MINNA PANTOJA [facility] Hyperlipidemia (SNOMED CT 80117107) Active 26427121 Jul 23, 2014 Entered By: MINNA PANTOJA Comment: 07/[address] [facility] Hypertension (SNOMED CT 15625730) Active 95398449 SHUKRI HALL [facility] Osteoarthritis (SNOMED CT 298315286) Active 715.90 MONIQUE ROMERO [facility] Osteoporosis (SNOMED CT 15880535) Active 41622379 Jul 24, 2014 Entered By: MINNA PANTOJA Comment: hx of compression fx L spineApr 2014 Entered By: MINNA PANTOJA Comment: 07/16 Trial of tramadol for chronic back pain SHUKRI HALL SONAL TAM [facility] Posttraumatic stress disorder (SNOMED CT 63319943) Active 79688012 UZAIR BUTCHER [facility] Recurrent major depression Active 10546724 [place] P [facility] Rheumatoid arthritis (SNOMED CT 10884237) Active 31824369 Jun 25, 2014 Entered By: MINNA PANTOJA Comment: 05/17 sed rate 47 RF 20 SHUKRI HALL [facility] Relationship problems Inactive 613006340 Jul 24, 2014 ABELARDO LEONARD VALDIVIAN Dina PRUITT [facility] Radiology Reports: +/- 30 [...] Patient Centered Community Care (PC3) Program Department [facility] Choice Approval for Medical Care VA-Form [phone] Certain protected health information (PHI) may be enclosed; specifically information related to Drug Abuse, Alcoholism or Alcohol Abuse, Sickle Cell Anemia, and Human Immunodeficiency Virus (HIV). This specific PHI may NOT be re-disclosed or used by the recipient person or office for any purpose other than that for which the disclosure was made. [Ref. 38 [facility] 7332(b)(2)(H)(ii)] The information is b eing disclosed by NE only for the treatment and care of the named patient in the health record. Accounting of disclosure must be maintained when required. Referral Urgency: Routine Indicate time frame for appointment: Clinically Indicated Date (GIOVANNY): Dec Category of Care/Type of Specialty: COMMUNITY CARE-RHEUM/ARTHRITIS Type of Specialist: RHEUM/ARTHRITIS Type of Service/Procedure: [facility] Office of Community Care - Standardized Episode of Care Rheumatology Comprehensive SEOC ID:[id number] Description:This authorization covers services associated [...] condition on the consult Please visit the [facility] Storefront [email or web address].[email or web address]/index.[email or web address] for additional resources and requirements pertaining to the following bull; Pharmacy prescribing requirements bull; Durable Medical Equipment (DME), Prosthetics, and Orthotics prescribing requirements bull; Precertification (PRCT) process requirements bull; Request for Services (RFS) requirements [place] DSP-DST data saved prior to signing consult CAN Score: less than 75 Admin Screening Care Coordination: Basic Clinical Triage: Not Required Admissions Dean may proceed with scheduling of appointment. Basic care coordination may include: -assistance with navigation -scheduling -post-appointment follow-up Upon consul t completion, a CPRS alert will be sent to ordering provider. Recommended frequency of contact: as needed Admin Staff alert, sending to: Leidy Caballero. Number of Visits, Frequency, and Duration: Approved for 6 months, 8 visits or [facility] Preferred Provider Name and Contact Information: Eligibility Verification: As the authorized VA account manager sales representative, I hereby confirm that the is eligible for Community Care services. The 's basic eligibility was verified on . Contact the Facility Community Care Office first to provide information to the VA or to reach a VA ordering provider. All contact from the contractor will be documented in the [place]'s record by the facility NE community Care and the VA provider will be notified for awareness. Report all Critical Findings related to this authorization to the issuing office below. All other questions regarding this authorization should be directed to: JEOVANY HOWE Facility Community Care Office Contact: Facility Community Care project officer or Equivalent: Name: MAREK SARAH Title: CHIEF, OFFICE OF COMMUNITY CARE Contact Number (Normal Business Hours):[phone] AOD/Emergency Contact After Hours Number: From Station Number: [id number] Facility Name: [facility] Street Address: [address] [place] [address] City: [place] State: [place] Zip: [address] [place] Information: Name: SOLITARIO CHEW : Mar SSN: [id number] Address: SOLITARIO CHEW [address] [address] [place]'s Alternate Phone: PATIENT WORK PHONE - UNANSWERED 's Alternate Address: Alternate POC for : Name: Address: Phone: In accordance with 38 CFR 17.1467-7097, NE will pay for non-VA hospital care and medical services that are authorized by NE for Veterans who are determined by NE to meet the Veterans Choice Program eligibility criteria set forth by section 101 of the Act and 38 CFR 17.1510 and any other eligibility standards that may apply to particular services (such as health care for newborns of Veterans under 38 CFR 17.38(a)(xiv) and dental benefits under 17.160-17.169). /es/ CB BOLAND OUTLET MANAGER Signed: 01/07/2019 11:13 CB BOLAND
--- OUTSIDE RECORDS SUMMARY | 2019-10-16 09:37 | XMS REPORT | Encounter Summary ---
Author Author Department of [facility] SOLITARIO duenas Organization Department of [facility] Address [address] [place] [address] Phone Unavailable Care Team Providers Care Head Of Advertising Name Role Phone SUNERNESTO JohnsonCRISELDA PCP Unavailable [...] Mar 03, 2010 RR PART A 7QX [id number] SOLITARIO CHEW PATIENT MEDICARE (WNR) MEDICARE (M) RR PART B Mar 03, 2010 RR PART B 7QX [id number] SOLITARIO CHEW PATIENT [facility] (RR SUPS) MEDIGAP PLAN F RAILROAD PLAN F Apr 03 15 [id number] SOLITARIO CHEW PATIENT Selected Encounter This section includes the information on record at [facility] for the Encounter. Date/Time Encounter Type Encounter [...] activities for the patient fr om all [facility] facilities. This section includes future appointments and fu ture orders which are active, pending or scheduled. Future Appointments This section includes appointments that were scheduled t o occur 6 months from the date of the Encounter, up to a maximum of 20 appointme nts. The data comes from all [facility]. Appointment Date/Time Appointment Type Appointment Facili ty Name May 28, 2019 10:30 AM AMBULATORY - NONE [facility] May 28, 2019 12:30 PM AMBULATORY - MEDICINE [facility] Active, Pending, and Scheduled Orders This [...] the Encounter. The data comes from all [facility]. Test Date/Time Test Type Test Details Facility Name May 28, 2019 12:00 AM Laboratory - Chemistry Order LDL KIKE STEROL (CALCULATED) BLOOD SERUM SP [facility] Surgical Procedures: All associated to the encounter No Data Provided for This Section Lab Results: +/- 30 days of the encounter This section includes the Chemistry and Hematology Lab R esults on record with [facility] for the patient. Radiology Reports and Pathology Report s are provided separately, in subsequent sections. Lab Results This section contains the Chemistry/Hematology Results sabrina t were resulted 30 days before or 30 days after the date of the Encounter. Date/Time Source Result Type Result - Unit Interpretation Reference Range Comment May 28, 2019 11:47 AM [facility] LIPID PROFILE Specimen Type: SERUM No comment entered. CHOLESTEROL, TOTAL (FV) 150 mg/dL 118-20 0 TRIGLYCERIDE (FV) 53 mg/dL <200 LDL CHOLESTEROL (CALCULATED) 86 HDL CHOLESTEROL (FV) 53 mg/dL >40 May 28, 2019 11:47 AM [facility] RENAL+LIVER PROFILE (FV) Specimen Type: SERUM [...] and tobacco- related health factors from the [facility] facility where the Encounter took place. Current [...] Encoun ter. The data comes from the [facility] facility where the Encounter took place. Date/Time Smoking Status/Tobacco Use Comment [facility] May 03, 2018 12:14 PM VA-TOBACCO FORMER [...] patient. The data comes from a ll [facility] treatment facilities. It does not list Allergies/ADRs [...] VA pharmacy in the last 15 m [facility], and 2) all medications recorded in the [facility] medical record as "non-VA medic ations". Pharmacy terms refer to VA pharmacy's work on prescriptions. VA patient s are advised to take their medications as instructed by their health care team. The data comes from all [facility] treatment facilities. Glossary of Pharmacy Terms:Active = A prescription that can be filled at the local VA pharmacy.Active: On Hold = An active prescription that will not be filled until pharmacy resolves the issue.Active: Susp = An active prescription that is not scheduled to be filled yet.Clinic Order = A medication received during a visit to a [facility] clinic or emergency department (currently not available).Discontinued = A prescription stopped by a [facility] provider. It is no longer available to be filled. = A prescription which is too old to fill. This does not refer to the expiration date of the medication in the container. Non-VA = A medication that came from someplace other than a VA pharmacy. This may be a prescription from either the [facility] or other providers that was filled outside the [facility]. Or, it may be an over the [...] SHORTNESS OF BREATH 120 May 23, 2019 [id number] Mar 07, 2019 ELLEN POST ALENDRONATE 70MG TAB Active: Susp TAKE ONE TABLET BY MOUTH 1 TIME PER WEEK TAKE 30 MINUTES BEFORE FIRST FOOD, BEVERAGE OR MEDICATION OF THE DAY. DRINK WITH FULL GLASS OF WATER. REMAIN IN UPRIGHT POSITION FOR AT LEAST 30 MINUTES FOL LOWING DOSE. 12 Apr 16, 2020 [id number] Nov 01, 2019 CRISELDA SUN [facility] ALENDRONATE 70MG TAB Discontinued TAKE ONE TABLET BY MOUTH 1 TIME PER WEEK TAKE 30 MINUTES BEFORE FIRST FOOD, BEVERAGE OR MEDICATION OF THE DAY. DRINK WITH FULL GLASS OF WATER. REMAIN IN UPRIGHT POSITION FOR AT LEAST 30 MINUTES FOL LOWING DOSE. 12 May 23, 2019 [id number] Mar 14, 2019 ELLEN POST [facility] AMLODIPINE BESYLATE 5MG/BENAZEPRIL HCL 10MG CAP Active TAKE 1 CAPSULE BY MOUTH ONCE DAILY 90 May 28, 2020 [id number] Oct 19, 2019 CRISELDA SUN [facility] AMLODIPINE BESYLATE 5MG/BENAZEPRIL HCL 10MG CAP Discontinued TAKE 1 CAPSULE BY MOUTH ONCE DAILY 90 August 16, 2019 [id number] May 02, 2019 [facility] ASCORBIC ACID 500MG TAB Non-VA TAKE ONE TABLET BY MOUTH ONCE DAILY Non-VA Documented by: SHUKRI HALL nted at: [facility] ATORVASTATIN [place] 10MG TAB Active: Susp TAKE ONE TABLET BY MOUTH AT BEDTIME FOR CHOLESTEROL - DO NOT TAKE WITH GRAPEFRUIT JUICE 90 Apr 16, 2020 [id number] Dec 19, 2019 [facility] 10MG TAB Discontinued TAKE ONE TABLET BY MOUTH AT BEDTIME FOR CHOLESTEROL - DO NOT TAKE WITH GRAPEFRUIT JUICE 90 Jul 17, 2019 [id number] Apr 03, 2019 [facility] ATORVASTATIN CA 20MG TAB Discontinued TAKE ONE-HALF T ABLET BY MOUTH AT BEDTIME FOR CHOLESTEROL - DO NOT TAKE WITH GRAPEFRUIT JUICE 45 May 23, 2019 [id number] Mar 26, 2019 ELLEN POST [place] BACLOFEN 20MG TAB Active: On Hold TAKE ONE-HALF TABLET BY MOUTH AT BEDTIME -(MAY CAUSE DROWSINESS) 45 Apr 16, 2020 [id number] Jun 14, 2019 [facility] B[facility]MG TAB Discontinued TAKE ONE-HALF TABLET BY MOUTH AT BEDTIME -(MAY CAUSE DROWSINESS) 45 May 23, 2019 [id number] Mar 26, 2019 ELLEN POST [place] CHOLECALCIFEROL 1000UNT TAB Non-VA TAKE TWO TABLETS BY MOUTH TWICE A DAY Non-VA Documented by: SHUKRI HALL nted at: [facility] DULOXETINE HCL 30MG CAP,EC Non-VA TAKE 1 CAPSULE BY MOUTH ONCE DAILY Non-VA Documented by: CRISELDA SUN nted at: [facility] FERROUS SO4 324MG TAB,EC Non-VA TAKE ONE TABLET BY MOUTH ONCE DAILY Non-VA Documented by: SHUKRI HALL nted at: [facility] FLUTICASONE 200MCG/VILANTEROL 25MCG INHL,ORAL,30D Active INHALE 1 INHALATION (200/25) BY MOUTH ONCE DAILY FOR CHRONIC OBSTRUCTIVE PULMONARY DISEASE OR EMPHYSEMA(CONSULT APPROVED) Jun 12, 2020 [id number] Sep 16, 2019 CRISELDA SUN [facility] FLUTICASONE 200MCG/VILANTEROL 25MCG INHL,ORAL,30D Discontinu ed INHALE 1 INHALATION (200/25) BY MOUTH ONCE DAILY FOR CHRONIC OBSTRUCTIVE PULMONARY DISEASE OR EMPHYSEMA(CONSULT APPROVED) May 23, 2019 [id number] Ja n 2019 ELLEN POST [facility] FOLIC ACID 1MG TAB Active TAKE ONE TABLET BY MOUTH QD WITH FOOD 9 0 Mar 07, 2020 [id number] Oct 24, 2019 ELLEN POST [facility] FOLIC ACID 1MG TAB Discontinued TAKE ONE TABLET BY MOUTH QD WITH FO OD 90 May 23, 2019 [id number] Feb 06, 2019 [facility] HYDROCODONE 10MG/ACETAMINOPHEN 325MG TAB Non-VA TAKE ONE TABLET BY MOUTH EVERY 4 HOURS NEEDED Non-VA Documented by: RICARDO ANTHONY nted at: [facility] LIDOCAINE 5% PATCH Active: Susp APPLY 1 PATCH TO THE SKIN ONCE DAILY FOR PAIN (PATCH SHOULD BE REMOVED AFTER 12 HOURS) 90 Mar 07, 2020 [id number] Nov 25, 2019 [facility] METHOTREXATE NA 2.5MG TAB Active: Susp TAKE SIX TABLE TS BY MOUTH 1 TIME PER WEEK (ONCE EVERY 7 DAYS) CHOICE 72 Mar 07, 2020 [id number] Nov ELLEN POST [facility] METHOTREXATE NA 2.5MG TAB Discontinued TAKE SIX TABLE TS BY MOUTH 1 TIME PER WEEK (ONCE EVERY 7 DAYS) CHOICE 24 Jul 18, 2019 [id number] Oct [facility] OMEPRAZOLE 20MG CAP,EC Discontinued TAKE 2 CAPSULES B Y MOUTH ONCE DAILY FOR THE STOMACH 180 Apr 16, 2020 [id number] Jun 14, 2019 CRISELDA SUN [facility] OMEPRAZOLE 20MG CAP,EC Discontinued TAKE 2 CAPSULES B Y MOUTH ONCE DAILY FOR THE STOMACH 180 May 23, 2019 [id number] Mar 26, 2019 ELLEN POST [place] PANTOPRAZOLE NA 40MG TAB,EC Active: Susp TAKE ONE TAB LET BY MOUTH EVERY MORNING FOR THE STOMACH 90 May 28, 2020 [id number] Nov 14, 2019 CRISELDA SUN [facility] ROPINIROLE HCL 2MG TAB N on-VA TAKE ONE TABLET BY MOUTH ONCE DAILY Non-VA Documented by: CRISELDA SUN nted at: [facility] TERAZOSIN HCL 2MG CAP Active TAKE 1 CAPSULE BY MOUTH TWICE A DAY FOR PROSTATE / MAY CAUSE LIGHTHEADEDNESS WHEN STANDING 180 Mar 07, 2020 [id number] J 2019 ELLEN POST [facility] TERAZOSIN HCL 2MG CAP Discontinued TAKE 1 CAPSULE BY MOUTH TWICE A DAY FOR PROSTATE / MAY CAUSE LIGHTHEADEDNESS WHEN STANDING 180 May 23, 2019 [id number] Feb 11, 2019 E[facility] ZOLPIDEM TARTRATE 10MG TAB Non-VA TAKE ONE TABLET BY MOUTH AT BEDTIME Non-VA Documented by: ELLEN POST [facility] Problems (Conditions): All historical and current Section Date Range: From patient's date of to the date document was create d. This section includes a list of Problems (Conditions) know n to [facility] for the patient. It includes both active and inacti ve problems (conditions). The data comes from all [facility] treatment facilities. Problem Status Problem Code Date of Onset Date of Resolution Comm ent(s) Provider Source Anemia (SNOMED CT 335174168) Active 285.9 Jul 24, 2014 Entered By: MINNA PANTOJA Comment: 07/16 Hb corrected to 13.5 MINNA PANTOJA [facility] Aortic Valve Disorder (SCT 3142472) Active 7209129 Jun 06, 2018 Entered By: ELLEN POST Comment: 06/2018 Murmur/ECHO = Mild aortic valve disease, EF 60-65% ELLEN POST Delaney [facility] Bilateral posterior vitreous detachment Active 916461543497480 GARRETTBRAYDEN Martinez [facility] Chronic obstructive lung disease (SNOMED CT 77054431) Active 1364 5005 Jun 25, 2014 Entered By: MINNA PANTOJA Comment: ex-smoker 0 [facility] Dry eyes Active 796751236 FAINAWinnieBRAYDEN [facility] GERD - Gastro-esophageal reflux disease Active 483381840 ISABELSHUKRI [facility] H/O: surgery Active 940195527 Jul 24, 2014 Entered By: MINNA PANTOJA Comment: Colon resection (perforation) 2007Apr 2014 Entered By: MINNA PANTOJA Comment: 2012 colonoscopy negApr 2014 Entered By: MINNA PANTOJA Comment: 2012 L inguinal hernia repair. MINNA PANTOJA [facility] Hyperlipidemia (SNOMED CT 72723311) Active 51838591 Jul 23, 2014 Entered By: MINNA PANTOJA Comment: 07/15 TC 128 ISABELSHUKRI [facility] Hypertension (SNOMED CT 65005922) Active 57819679 ISABEL,SHUKRI Baltazar [facility] Osteoarthritis (SNOMED CT 361280722) Active 715.90 MONIQUE ROMERO J [facility] Osteoporosis (SNOMED CT 22694869) Active 74356745 Jul 24, 2014 Entered By: MINNA PANTOJA Comment: hx of compression fx L spineApr 2014 Entered By: MINNA PANTOJA Comment: 07/16 Trial of tramadol for chronic back pain SHUKRI HALL [facility] Posttraumatic stress disorder (SNOMED CT 14102520) Active 64573337 UZAIR BUTCHER [facility] Recurrent major depression Active 93909615 CORS ON,VALERIA Arroyo [facility] Rheumatoid arthritis (SNOMED CT 74701362) Active 73124253 Jun 25, 2014 Entered By: MINNA PANTOJA Comment: 05/17 sed rate 47 RF 20 SHUKRI HALL Delaney [facility] Relationship problems Inactive 740232946 Jul 24, 2014 CO RSON,VALERIA Arroyo [facility] Radiology Reports: +/- 30 days of [...] STATUS: COMPLETED PATIENT NAME: SOLITARIO CHEW SSN: [id number] FUTURE APPOINTMENTS: May@10:30 [facility] FASTING May@12:30 [facility] TM 4 PATIENT'S HOME PHONE: REASON FOR CALL: confirm appts for 05/28/2019 FOLLOW UP: LVM (Patient has been instructed to go to [facility] or to seek care elsewhere. FINANCIAL DISCLAIMER was read to caller ( ) Yes ( ) Not Applicable) FINANCIAL DISCLAIMER: "This is not an authorization for VA Payment" and also "Have hospital contact the nearest [facility] Facility for transfer upon stabilization". /jacqui/ CORNELL MURRIETA LPN PRIMARY CARE SYDPLCASIMIRO Signed: 05/27/2019 15:49 CORNELL MURRIETA [facility]
--- OUTSIDE RECORDS SUMMARY | 2019-10-16 09:37 | XMS REPORT | Encounter Summary ---
Author Author Department of [facility] SOLITARIO duenas Organization Department of [facility] Address [address] [place] [address] Phone Unavailable Care Team Providers Care Forestry Support Specialist Name Role Phone DINO CRISELDA PCP [...] Mar 03, 2010 RR PART A 7QX [id number] SOLITARIO CHEW PATIENT MEDICARE (WNR) MEDICARE (M) RR PART B Mar 03, 2010 RR PART B 7QX [id number] SOLITARIO CHEW PATIENT [facility] MEDIGAP PLAN F RAILROAD PLAN F Apr 03 15 [id number] SOLITARIO CHEW PATIENT Selected Encounter This section includes the information on record at [place] for the Encounter. Date/Time Encounter Type Encounter Description Reason Provider Source Dec 31, 2018 09:28 AM Outpatient Encounter PRIMARY CARE/MEDICINE [facility] Encounter Template Text not used by [place] Assessments - Encounter Diagnoses No Data Provided for This Section Plan of Treatment: Future Appointments (+ 6 months) and Future Tests (+/- 45 day s) The Plan of Treatment section includes future care activities for the patient fr om all [place] treatment facilities. This section includes future appointments and fu ture orders which are active, pending or scheduled. Future Appointments This section includes appointments that were scheduled t o occur 6 months from the date of the Encounter, up to a maximum of 20 appointme nts. The data comes from all [place] treatment facilities. Appointment Date/Time Appointment Type Appointment Gauri ty Name Feb 21, 2019 10:00 AM AMBULATORY - [place]ONE [place] May 16, 2019 08:00 AM AMBULATORY - NONE [place] May 28, 2019 10:30 AM AMBULATORY - NONE [place] May 28, 2019 12:30 PM AMBULATORY - MEDICINE [facility] Surgical Procedures: All associated to the [...] patient. The data comes from a ll [place] treatment facilities. It does not list Allergies/ADRs [...] VA pharmacy in the last 15 m [facility], and 2) all medications recorded in the [place] medical record as "non-VA medic ations". Pharmacy terms refer to VA pharmacy's work on prescriptions. VA patient s are advised to take their medications as instructed by their health care team. The data comes from all [place] treatment facilities. Glossary of Pharmacy Terms:Active = A prescription that can be filled at the local [place] pharmacy.Active: On Hold = An active prescription that will not be filled until pharmacy resolves the issue.Active: Susp = An active prescription that is not scheduled to be filled yet.Clinic Order = A medication received during a visit to a [place] clinic or emergency department (currently not available).Discontinued [...] may be a prescription from either the [place] or other providers that was filled outside [...] SHORTNESS OF BREATH 120 May 23, 2019 [id number] Mar 07, 2019 ELLEN POST ALENDRONATE 70MG TAB Active: Susp TAKE ONE TABLET BY MOUTH 1 TIME PER WEEK TAKE 30 MINUTES BEFORE FIRST FOOD, BEVERAGE OR MEDICATION OF THE DAY. DRINK WITH FULL GLASS OF WATER. REMAIN IN UPRIGHT POSITION FOR AT LEAST 30 MINUTES FOL LOWING DOSE. 12 Apr 16, 2020 [id number] Nov 01, 2019 CRISELDA SUN [facility] ALENDRONATE 70MG TAB Discontinued TAKE ONE TABLET BY MOUTH 1 TIME PER WEEK TAKE 30 MINUTES BEFORE FIRST FOOD, BEVERAGE OR MEDICATION OF THE DAY. DRINK WITH FULL GLASS OF WATER. REMAIN IN UPRIGHT POSITION FOR AT LEAST 30 MINUTES FOL LOWING DOSE. 12 May 23, 2019 [id number] Mar 14, 2019 ELLEN POST [facility] AMLODIPINE BESYLATE 5MG/BENAZEPRIL HCL 10MG CAP Active TAKE 1 CAPSULE BY MOUTH ONCE DAILY 90 May 28, 2020 [id number] Oct 19, 2019 CRISELDA SUN [facility] AMLODIPINE BESYLATE 5MG/BENAZEPRIL HCL 10MG CAP Discontinued TAKE 1 CAPSULE BY MOUTH ONCE DAILY 90 August 16, 2019 [id number] May 02, 2019 ELLEN POST [facility] ASCORBIC ACID 500MG TAB Non-VA TAKE ONE TABLET BY MOUTH ONCE DAILY Non-VA Documented by: SHUKRI HALL nted at: [facility] ATORVASTATIN [place] 10MG TAB Active: Susp TAKE ONE TABLET BY MOUTH AT BEDTIME FOR CHOLESTEROL - DO NOT TAKE WITH GRAPEFRUIT JUICE 90 Apr 16, 2020 [id number] Dec 19, 2019 CRISELDA SUN [facility] AT[facility] [place] 10MG TAB Discontinued TAKE ONE TABLET BY MOUTH AT BEDTIME FOR CHOLESTEROL - DO NOT TAKE WITH GRAPEFRUIT JUICE 90 Jul 17, 2019 [id number] Apr 03, 2019 ELLEN POST [facility] ATORVASTATIN [place] 20MG TAB Discontinued TAKE ONE-HALF T ABLET BY MOUTH AT BEDTIME FOR CHOLESTEROL - DO NOT TAKE WITH GRAPEFRUIT JUICE 45 May 23, 2019 [id number] Mar 26, 2019 ELLEN POST [place] BACLOFEN 20MG TAB Active: On Hold TAKE ONE-HALF TABLET BY MOUTH AT BEDTIME -(MAY CAUSE DROWSINESS) 45 Apr 16, 2020 [id number] Jun 14, 2019 CRISELDA SUN [facility] BACLOFEN 20MG TAB Discontinued TAKE ONE-HALF TABLET BY MOUTH AT BEDTIME -(MAY CAUSE DROWSINESS) 45 May 23, 2019 [id number] Mar 26, 2019 ELLEN POST [place] CHOLECALCIFEROL 1000UNT TAB Non-VA TAKE TWO TABLETS BY MOUTH TWICE A DAY Non-VA Documented by: SHUKRI HALL nted at: [facility] DULOXETINE HCL 30MG CAP,EC Non-VA TAKE 1 CAPSULE BY MOUTH ONCE DAILY Non-VA Documented by: CRISELDA SUN nted at: [facility] FERROUS SO4 324MG TAB,EC Non-VA TAKE ONE TABLET BY MOUTH ONCE DAILY Non-VA Documented by: SHUKRI HALL nted at: [facility] FLUTICASONE 200MCG/VILANTEROL 25MCG INHL,ORAL,30D Active INHALE 1 INHALATION (200/25) BY MOUTH ONCE DAILY FOR CHRONIC OBSTRUCTIVE PULMONARY DISEASE OR EMPHYSEMA(CONSULT APPROVED) Jun 12, 2020 [id number] Sep 16, 2019 CRISELDA SUN [facility] FLUTICASONE 200MCG/VILANTEROL 25MCG INHL,ORAL,30D Discontinu ed INHALE 1 INHALATION (200/25) BY MOUTH ONCE DAILY FOR CHRONIC OBSTRUCTIVE PULMONARY DISEASE OR EMPHYSEMA(CONSULT APPROVED) May 23, 2019 [id number] Ja n 2019 [facility] FOL[facility] 1MG TAB Active TAKE ONE TABLET BY MOUTH QD WITH FOOD 9 0 Mar 07, 2020 [id number] Oct 24, 2019 ELLEN POST [facility] FOLIC ACID 1MG TAB Discontinued TAKE ONE TABLET BY MOUTH QD WITH FO OD 90 May 23, 2019 [id number] Feb 06, 2019 ELLEN POST [facility] HYDROCODONE 10MG/ACETAMINOPHEN 325MG TAB Non-VA TAKE ONE TABLET BY MOUTH EVERY 4 HOURS NEEDED Non-VA Documented by: RICARDO ANTHONY nted at: [facility] LIDOCAINE 5% PATCH Active: Susp APPLY 1 PATCH TO THE SKIN ONCE DAILY FOR PAIN (PATCH SHOULD BE REMOVED AFTER 12 HOURS) 90 Mar 07, 2020 [id number] Nov 25, 2019 [facility] METHOTREXATE NA 2.5MG TAB Active: Susp TAKE SIX TABLE TS BY MOUTH 1 TIME PER WEEK (ONCE EVERY 7 DAYS) CHOICE 72 Mar 07, 2020 [id number] Nov [facility] METHOT[facility] NA 2.5MG TAB Discontinued TAKE SIX TABLE TS BY MOUTH 1 TIME PER WEEK (ONCE EVERY 7 DAYS) CHOICE 24 Jul 18, 2019 [id number] Oct [facility] OMEPRAZOLE 20MG CAP,EC Discontinued TAKE 2 CAPSULES B Y MOUTH ONCE DAILY FOR THE STOMACH 180 Apr 16, 2020 [id number] Jun 14, 2019 CRISELDA SUN [facility] OMEPRAZOLE 20MG CAP,EC Discontinued TAKE 2 CAPSULES B Y MOUTH ONCE DAILY FOR THE STOMACH 180 May 23, 2019 [id number] Mar 26, 2019 ELLEN POST PANTOPRAZOLE NA 40MG TAB,EC Active: Susp TAKE ONE TAB LET BY MOUTH EVERY MORNING FOR THE STOMACH 90 May 28, 2020 [id number] Nov 14, 2019 CRISELDA SUN [facility] ROPINIROLE HCL 2MG TAB N on-VA TAKE ONE TABLET BY MOUTH ONCE DAILY Non-VA Documented by: CRISELDA SUN nted at: [facility] TERAZOSIN HCL 2MG CAP Active TAKE 1 CAPSULE BY MOUTH TWICE A DAY FOR PROSTATE / MAY CAUSE LIGHTHEADEDNESS WHEN STANDING 180 Mar 07, 2020 [id number] J 2019 ELLEN POST [facility] TERAZOSIN HCL 2MG CAP Discontinued TAKE 1 CAPSULE BY MOUTH TWICE A DAY FOR PROSTATE / MAY CAUSE LIGHTHEADEDNESS WHEN STANDING 180 May 23, 2019 [id number] Feb 11, 2019 ELLEN POST [facility] ZOLPIDEM TARTRATE 10MG TAB Non-VA TAKE ONE [...] problems (conditions). The data comes from all [place] treatment facilities. Problem Status Problem Code Date of Onset Date of Resolution Comm ent(s) Provider Source Anemia (SNOMED CT 149221006) Active 285.9 Jul 24, 2014 Entered By: MINNA PANTOJA Comment: 07/16 Hb corrected to 13.5 MINNA PANTOJA [facility] Aortic Valve Disorder (SCT 7321496) Active 6726258 Jun 06, 2018 Entered By: ELLEN POST Comment: 06/2018 Murmur/ECHO = Mild aortic valve disease, EF 60-65% ELLEN POST [facility] Bilateral posterior vitreous detachment Active [id number] BRAYDEN TUCKER [facility] Chronic obstructive lung disease (SNOMED CT 86396748) Active 1364 5005 Jun 25, 2014 Entered By: MINNA PANTOJA Comment: ex-smoker 0 [facility] Dry eyes Active 268769862 B[facility] GERD - Gastro-esophageal reflux disease Active 961398229 SHUKRI HALL [facility] H/O: surgery Active 675911784 Jul 24, 2014 Entered By: MINNA PANTOJA Comment: Colon resection (perforation) 2007Apr 2014 Entered By: MINNA PANTOJA Comment: 2012 colonoscopy negJul 24, 2014 Entered By: IMNNA PANTOJA Comment: 2012 L inguinal hernia repair. MINNA PANTOJA [facility] Hyperlipidemia (SNOMED CT 75834008) Active 97011912 Jul 23, 2014 Entered By: MINNA PANTOJA Comment: 07/15 TC 128 SHUKRI HALL [facility] PC Hypertension (SNOMED CT 46590931) Active 81653151 SHUKRI HALL [facility] Osteoarthritis (SNOMED CT 547193331) Active 715.90 MONIQUE ROMERO [facility] Osteoporosis (SNOMED CT 25566106) Active 20947429 Jul 24, 2014 Entered By: MINNA PANTOJA Comment: hx of compression fx L spineApr 2014 Entered By: MINNA PANTOJA Comment: 07/16 Trial of tramadol for chronic back pain [facility] Posttraumatic stress disorder (SNOMED CT 77331395) Active 18794299 UZAIR BUTCHER [facility] Recurrent major depression Active 36088743 CORS ON,VALERIA Dina [facility] Rheumatoid arthritis (SNOMED CT 67798785) Active 57766758 Jun 25, 2014 Entered By: MINNA PANTOJA Comment: 05/17 sed rate 47 RF 20 SHUKRI HALL [facility] Relationship problems Inactive 501513031 Jul 24, 2014 CO LEONARD VALDIVIAN Dina [facility] Radiology Reports: +/- 30 days [...] as prescri bed by Rheumatology: Dr. Joe Dash. Formulary seen under CHOICE, last visit 2016. Does as new Rheumatology consult need placed for current appointment. /jacqui/ ANASTACIO BUSTILLOS RN PRIMARY CARE, REGISTERED NURSE-MARLY Signed: 12/31/2018 09:41 Receipt Acknowledged By: 12/31/2018 10:33 /chaka TAYLOR APN PRIMARY CARE CAIT 12/31/2018 ADDENDUM STATUS: COMPLETED [facility] placed for Rheumatology /jacqui/ ELLEN POST APN PRIMARY CARE CAIT Signed: 12/31/2018 10:34 ANASTACIO BUSTILLOS [facility]
--- OUTSIDE RECORDS SUMMARY | 2019-10-16 09:37 | XMS REPORT | Encounter Summary ---
Author Author [facility] SOLITARIO duenas Organization [facility] Address [address] [place] [address] Phone Unavailable Care Team Providers Care Brand Planner Name Role Phone DINO CRISELDA PCP Unavailable [...] Mar 03, 2010 RR PART A [id number] SOLITARIO CHEW PATIENT MEDICARE (WNR) MEDICARE (M) RR PART B Mar 03, 2010 RR PART B [id number] SOLITARIO CHEW PATIENT [facility] ([facility] MEDIGAP PLAN F RAILROAD PLAN F Apr 03 15 [id number] SOLITARIO CHEW PATIENT Selected Encounter This section includes the information on record at AL for the Encounter. Date/Time Encounter Type Encounter Description Reason Provider Source Feb 13, 2019 09:02 AM Outpatient Encounter PRIMARY CARE/MEDICINE VERONICA MCDONNELL IHE Encounter Template Text not used by AL Assessments - Encounter Diagnoses No Data Provided for This Section Plan of Treatment: Future Appointments (+ 6 months) and Future Tests (+/- 45 day s) The Plan of Treatment section includes future care activities for the patient fr om all AL treatment facilities. This section includes future appointments and fu ture orders which are active, pending or scheduled. Future Appointments This section includes appointments that were scheduled t o occur 6 months from the date of the Encounter, up to a maximum of 20 appointme nts. The data comes from all AL treatment facilities. Appointment Date/Time Appointment Type Appointment Gauri ty Name Feb 21, 2019 10:00 AM AMBULATORY [place] May 16, 2019 08:00 AM AM[place]ULATORY - [place] May 28, 2019 10:30 AM AMBULATORY - NONE [place] May 28, 2019 12:30 PM AMBULATORY - MEDICINE [facility] Surgical Procedures: All associated [...] patient. The data comes from a ll AL treatment facilities. It does not list Allergies/ADRs [...] [facility] pharmacy in the last 15 m [facility], and 2) all medications recorded in the AL medical record as "non-VA medic ations". Pharmacy terms refer to VA pharmacy's work on prescriptions. VA patient s are advised to take their medications as instructed by their health care team. The data comes from all [place] treatment facilities. Glossary of Pharmacy Terms:Active = A prescription that can be filled at the local [place] pharmacy.Active: On Hold = An active prescription that will not be filled until pharmacy resolves the issue.Active: Susp = An active prescription that is not scheduled to be filled yet.Clinic Order = A medication received during a visit to a AL clinic or emergency department (currently not available).Discontinued [...] may be a prescription from either the AL or other providers that was filled outside [...] SHORTNESS OF BREATH 120 May 23, 2019 [id number] Mar 07, 2019 ELLEN POST ALENDRONATE 70MG TAB Active: Susp TAKE ONE TABLET BY MOUTH 1 TIME PER WEEK TAKE 30 MINUTES BEFORE FIRST FOOD, BEVERAGE OR MEDICATION OF THE DAY. DRINK WITH FULL GLASS OF WATER. REMAIN IN UPRIGHT POSITION FOR AT LEAST 30 MINUTES FOL LOWING DOSE. 12 Apr 16, 2020 [id number] Nov 01, 2019 CRISELDA SUN [facility] ALENDRONATE 70MG TAB Discontinued TAKE ONE TABLET BY MOUTH 1 TIME PER WEEK TAKE 30 MINUTES BEFORE FIRST FOOD, BEVERAGE OR MEDICATION OF THE DAY. DRINK WITH FULL GLASS OF WATER. REMAIN IN UPRIGHT POSITION FOR AT LEAST 30 MINUTES FOL LOWING DOSE. 12 May 23, 2019 [id number] Mar 14, 2019 ELLEN POST [facility] AMLODIPINE BESYLATE 5MG/BENAZEPRIL HCL 10MG CAP Active TAKE 1 CAPSULE BY MOUTH ONCE DAILY 90 May 28, 2020 [id number] Oct 19, 2019 CRISELDA SUN [facility] AMLODIPINE BESYLATE 5MG/BENAZEPRIL HCL 10MG CAP Discontinued TAKE 1 CAPSULE BY MOUTH ONCE DAILY 90 August 16, 2019 [id number] May 02, 2019 ELLEN POST [facility] ASCORBIC ACID 500MG TAB Non-VA TAKE ONE TABLET BY MOUTH ONCE DAILY Non-VA Documented by: SHUKRI HALL nted at: [facility] ATORVASTATIN CA 10MG TAB Active: Susp TAKE ONE TABLET BY MOUTH AT BEDTIME FOR CHOLESTEROL - DO NOT TAKE WITH GRAPEFRUIT JUICE 90 Apr 16, 2020 [id number] Dec 19, 2019 CRISELDA SUN [facility] ATORVASTATIN CA 10MG TAB Discontinued TAKE ONE TABLET BY MOUTH AT BEDTIME FOR CHOLESTEROL - DO NOT TAKE WITH GRAPEFRUIT JUICE 90 Jul 17, 2019 [id number] Apr 03, 2019 ELLEN POST [facility] ATORVASTATIN CA 20MG TAB Discontinued TAKE ONE-HALF T ABLET BY MOUTH AT BEDTIME FOR CHOLESTEROL - DO NOT TAKE WITH GRAPEFRUIT JUICE 45 May 23, 2019 [id number] Mar 26, 2019 ELLEN POST [place] BACLOFEN 20MG TAB Active: On Hold TAKE ONE-HALF TABLET BY MOUTH AT BEDTIME -(MAY CAUSE DROWSINESS) 45 Apr 16, 2020 [id number] Jun 14, 2019 CRISELDA SUN [facility] BACLOFEN 20MG TAB Discontinued TAKE ONE-HALF TABLET BY MOUTH AT BEDTIME -(MAY CAUSE DROWSINESS) 45 May 23, 2019 [id number] Mar 26, 2019 ELLEN POST [place] CHOLECALCIFEROL 1000UNT TAB Non-VA TAKE TWO TABLETS BY MOUTH TWICE A DAY Non-VA Documented by: SHUKRI HALL nted at: [facility] DULOXETINE HCL 30MG CAP,EC Non-VA TAKE 1 CAPSULE BY MOUTH ONCE DAILY Non-VA Documented by: CRISELDA SUN nted at: [facility] FERROUS SO4 324MG TAB,EC Non-VA TAKE ONE TABLET BY MOUTH ONCE DAILY Non-VA Documented by: SHUKRI HALL nted at: [facility] FLUTICASONE 200MCG/VILANTEROL 25MCG INHL,ORAL,30D Active INHALE 1 INHALATION (200/25) BY MOUTH ONCE DAILY FOR CHRONIC OBSTRUCTIVE PULMONARY DISEASE OR EMPHYSEMA(CONSULT APPROVED) Jun 12, 2020 [id number] Sep 16, 2019 CRISELDA SUN [facility] FLUTICASONE 200MCG/VILANTEROL 25MCG INHL,ORAL,30D Discontinu ed INHALE 1 INHALATION (200/25) BY MOUTH ONCE DAILY FOR CHRONIC OBSTRUCTIVE PULMONARY DISEASE OR EMPHYSEMA(CONSULT APPROVED) May 23, 2019 [id number] n 2019 [facility] F[facility] 1MG TAB Active TAKE ONE TABLET BY MOUTH QD WITH FOOD 9 0 Mar 07, 2020 [id number] Oct 24, 2019 ELLEN POST [facility] FOLIC ACID 1MG TAB Discontinued TAKE ONE TABLET BY MOUTH QD WITH FO OD 90 May 23, 2019 [id number] Feb 06, 2019 ELLEN POST [facility] HYDROCODONE 10MG/ACETAMINOPHEN 325MG TAB Non-VA TAKE ONE TABLET BY MOUTH EVERY 4 HOURS NEEDED Non-VA Documented by: RICARDO ANTHONY nted at: [facility] LIDOCAINE 5% PATCH Active: Susp APPLY 1 PATCH TO THE SKIN ONCE DAILY FOR PAIN (PATCH SHOULD BE REMOVED AFTER 12 HOURS) 90 Mar 07, 2020 [id number] Nov 25, 2019 [facility] METHOTREXATE NA 2.5MG TAB Active: Susp TAKE SIX TABLE TS BY MOUTH 1 TIME PER WEEK (ONCE EVERY 7 DAYS) CHOICE 72 Mar 07, [id number] [facility] NA 2.5MG TAB Discontinued TAKE SIX TABLE TS BY MOUTH 1 TIME PER WEEK (ONCE EVERY 7 DAYS) CHOICE 24 Jul 18, 2019 [id number] Oct [facility] OMEPRAZOLE 20MG CAP,EC Discontinued TAKE 2 CAPSULES B Y MOUTH ONCE DAILY FOR THE STOMACH 180 Apr 16, 2020 [id number] Jun 14, 2019 CRISELDA SUN [facility] OMEPRAZOLE 20MG CAP,EC Discontinued TAKE 2 CAPSULES B Y MOUTH ONCE DAILY FOR THE STOMACH 180 May 23, 2019 [id number] Mar 26, 2019 ELLEN POST PANTOPRAZOLE NA 40MG TAB,EC Active: Susp TAKE ONE TAB LET BY MOUTH EVERY MORNING FOR THE STOMACH 90 May 28, 2020 [id number] Nov 14, 2019 CRISELDA SUN [facility] ROPINIROLE HCL 2MG TAB N on-VA TAKE ONE TABLET BY MOUTH ONCE DAILY Non-VA Documented by: CRISELDA SUN nted at: [facility] TERAZOSIN HCL 2MG CAP Active TAKE 1 CAPSULE BY MOUTH TWICE A DAY FOR PROSTATE / MAY CAUSE LIGHTHEADEDNESS WHEN STANDING 180 Mar 07, 2020 [id number] J 2019 ELLEN POST [facility] TERAZOSIN HCL 2MG CAP Discontinued TAKE 1 CAPSULE BY MOUTH TWICE A DAY FOR PROSTATE / MAY CAUSE LIGHTHEADEDNESS WHEN STANDING 180 May 23, 2019 [id number] Feb 11, 2019 ELLEN POST [facility] ZOLPIDEM TARTRATE 10MG TAB Non-VA TAKE [...] problems (conditions). The data comes from all [place] treatment facilities. Problem Status Problem Code Date of Onset Date of Resolution Comm ent(s) Provider Source Anemia (SNOMED CT 905306094) Active 285.9 Jul 24, 2014 Entered By: MINNA PANTOJA Comment: 07/16 Hb corrected to 13.5 MINNA PANTOJA [facility] Aortic Valve Disorder (SCT 6070472) Active 7722856 Jun 06, 2018 Entered By: ELLEN POST Comment: 06/2018 Murmur/ECHO = Mild aortic valve disease, EF 60-65% ELLEN POST [facility] Bilateral posterior vitreous detachment Active [id number] BRAYDEN TUCKER [facility] Chronic obstructive lung disease (SNOMED CT 37533133) Active 1364 5005 Jun 25, 2014 Entered By: MINNA PANTOJA Comment: ex-smoker 0 [facility] Dry eyes Active 286974708 BRAYDEN TUCKER [facility] GERD - Gastro-esophageal reflux disease Active 240411301 SHUKRI HALL [facility] H/O: surgery Active [id number] Jul 24, 2014 Entered By: MINNA PANTOJA Comment: Colon resection (perforation) 2007Apr 2014 Entered By: MINAN PANTOJA Comment: 2012 colonoscopy negJul 24, 2014 Entered By: MINNA PANTOJA Comment: 2012 L inguinal hernia repair. MINNA PANTOJA [facility] Hyperlipidemia (SNOMED CT 82890935) Active 33590726 Jul 23, 2014 Entered By: MINNA PANTOJA Comment: 07/15 TC 128 SHUKRI HALL [facility] Hypertension (SNOMED CT 05860326) Active 80578252 SHUKRI HALL [facility] Osteoarthritis (SNOMED CT 739771016) Active 715.90 MONIQUE ROMERO [facility] Osteoporosis (SNOMED CT 92175717) Active 88938773 Jul 24, 2014 Entered By: MINNA PANTOJA Comment: hx of compression fx L spineApr 2014 Entered By: MINNA PANTOJA Comment: 07/16 Trial of tramadol for chronic back pain SHUKRI HALL [facility] Posttraumatic stress disorder (SNOMED CT 08409368) Active 81553167 UZAIR BUTCHER [facility] Recurrent major depression Active 21649095 [place] P [facility] Rheumatoid arthritis (SNOMED CT 85204481) Active 20754583 Jun 25, 2014 Entered By: MINNA PANTOJA Comment: 05/17 sed rate 47 RF 20 SHUKRI HALL [facility] Relationship problems Inactive [id number] Jul 24, 2014 ABELARDO VALDIVIAVALERIA Dina [facility] Radiology Reports: +/- 30 [...] to contact to reschedule 05/16/2019 appt with [facility] tm 4. No answer, left voice mail to return call to reschedule. Author's phone extension: [phone] /jacqui/ CRYS VERGARA Signed: 02/13/2019 09:05 CRYS VERGARA [facility]
--- OUTSIDE RECORDS SUMMARY | 2019-10-16 09:37 | XMS REPORT | Encounter Summary ---
Author Author Department [facility] SOLITARIO duenas Organization Department of [facility] Address [address] [place] [address] Phone Unavailable Care Team Providers Care Publishing Editor Name Role Phone CRISELDA SUN PCP Unavailable [...] Mar 03, 2010 RR PART A [id number] SOLITARIO CHEW PATIENT MEDICARE (WNR) MEDICARE (M) RR PART B Mar 03, 2010 RR PART B [id number] SOLITARIO CHEW PATIENT [facility] (RR [facility]) MEDIGAP PLAN F RAILROAD PLAN F Apr 03 15 [id number] SOLITARIO CHEW PATIENT Selected Encounter This section includes the information on record at [place] for the Encounter. Date/Time Encounter Type Encounter Description Reason Provider Source May 28, 2019 12:30 PM OFFICE/OUTPATIENT VISIT EST PRIMARY CARE/M EDICINE ICD-10-CM K21.9 Gastro-esophageal reflux disease without esophagitis with Provider Comments: GERD - Gastro-esophageal reflux disease ([facility] [id number]) CRISELDA SUN [facility] IHE Encounter Template Text not used by [place] Assessments - Encounter Diagnoses This section includes the primary and secondary diag noses documented for the Encounter. Date/Time Primary/Secondary Diagnosis Diagnosis Name Provider Source May 28, 2019 01:41 PM PRIMARY Gastro-esophageal reflux disease without esophagitis [facility] May 28, 2019 01:41 PM PRIMARY Nonrheumatic aortic valve disorder, unspecified [facility] May 28, 2019 01:41 PM SECONDARY Anemia, unspecified [facility]INE,[facility] May 28, 2019 01:41 PM SECONDARY Chronic obstructiv e pulmonary disease, unspecified SEVERJANINE,[facility] May 28, 2019 01:41 PM SECONDARY Chronic obstructiv e pulmonary disease, unspecified SEVERJANINE,[facility] May 28, 2019 01:41 PM SECONDARY Essential (primary) hypertension [facility] May 28, 2019 01:41 PM SECONDARY Essential (primary) hypertension [facility] May 28, 2019 01:41 PM SECONDARY Gastro-esophageal reflux disease without esophagitis [facility] May 28, 2019 01:41 PM SECONDARY Hyperlipidemia, unspecified RENETTA RNS,[facility] May 28, 2019 01:41 PM SECONDARY Hyperlipidemia, unspecified RENETTA RNS,[facility] May 28, 2019 01:41 PM SECONDARY Nonrheumatic aortic valve disorder, unspecified SEVERNS,[facility] May 28, 2019 01:41 PM SECONDARY Post-traumatic stress diso rder, unspecified SEVERNS,[facility] May 28, 2019 01:41 PM SECONDARY Post-traumatic stress diso rder, unspecified SEVERNS,[facility] May 28, 2019 01:41 PM SECONDARY Rheumatoid arthritis, unsp ecified [facility] May 28, 2019 01:41 PM SECONDARY Rheumatoid arthritis, unsp ecified SEVERNS,[facility] Plan of Treatment: Future Appointments (+ 6 months) and Future Tests (+/- 45 day s) The Plan of Treatment section includes future care activities for the patient fr om all [place] treatment facilities. This section includes future appointments [...] the Encounter. The data comes from all [place] treatment facilities. Test Date/Time Test Type Test Details Facility Name May 28, 2019 12:00 AM Laboratory - Chemistry Order LDL KIKE STEROL (CALCULATED) BLOOD SERUM SP [facility] Surgical Procedures: All associated to the encounter No Data Provided for This Section Lab Results: +/- 30 days of the encounter This section includes the Chemistry and Hematology Lab R esults on record with [place] for the patient. Radiology Reports and Pathology Report s are provided separately, in subsequent sections. Lab Results This section contains the Chemistry/Hematology Results sabrina t were resulted 30 days before or 30 days after the date of the Encounter. Date/Time Source Result Type Result - Unit Interpretation Reference Range Comment May 28, 2019 11:47 AM [facility] LIPID PROFILE Specimen Type: SERUM No comment entered. CHOLESTEROL, TOTAL (FV) 150 mg/dL 118-20 0 TRIGLYCERIDE (FV) 53 mg/dL <200 LDL CHOLESTEROL (CALCULATED) 86 HDL CHOLESTEROL (FV) 53 mg/dL >40 May 28, 2019 11:47 AM [facility] RENAL+LIVER PROFILE (FV) Specimen Type: SERUM [...] Source May 28, 2019 12:52 PM 6 [facility] May 28, 2019 12:41 PM 97 F 69 /min 128/70 mm[Hg] 20 /min 97 % 6 71 in 178.2 lb 25 [facility] Immunizations: All administered on the encounter date No Data Provided for This Section Social History: Smoking Status (Most current) and Tobacco Use (All prior to enco unter date) This section includes the most current, and the historical, smoking and tobacco- related health factors from the [place] facility where the Encounter took place. Current Smoking Status This section includes the most current smoking, or tobacco -related health factor, from the [place] facility where the Encounter took place. Date/Time Current Smoking Status Comment Facility Mar 07, 2019 02:20 PM VA-TOBACCO QUIT 15 YRS OR MORE [facility] Tobacco Use History This section includes a history of the smoking, or tobacco -related health factors, that were collected on or before the date of the Encoun ter. The data comes from the [place] facility where the Encounter took place. Date/Time Smoking Status/Tobacco Use Comment Facil ity Mar 07, 2019 02:20 PM VA-TOBACCO FORMER USER [facility] [place] Mar 07, 2019 02:20 PM [place]-TO[place]AC[place] QUIT 15 YRS OR MORE [facility] Advance Directives: All historical and current No Data Provided for This Section Allergies and Adverse Reactions (ADRs): All historical and current Section Date Range: From patient's date of to the date document was create d. This section includes Allergies and Adverse Reactions (ADR s) on record with VA for the patient. The data comes from a [facility] treatment facilities. It does not list [...] VA pharmacy in the last 15 m [facility], and 2) all medications recorded in the [place] medical record as "non-VA medic ations". Pharmacy terms refer to VA pharmacy's work on prescriptions. VA patient s are advised to take their medications as instructed by their health care team. The data comes from all [place] treatment facilities. Glossary of Pharmacy Terms:Active = A prescription that can be filled at the local [place] pharmacy.Active: On Hold = An active prescription that will not be filled until pharmacy resolves the issue.Active: Susp = An active prescription that is not scheduled to be filled yet.Clinic Order = A medication received during a visit to a [place] clinic or emergency department (currently not available).Discontinued [...] may be a prescription from either the [place] or other providers that was filled outside the [place]. Or, it may be an over the [...] SHORTNESS OF BREATH 120 May 23, 2019 [id number] Mar 07, 2019 ELLEN POST ALENDRONATE 70MG TAB Active: Susp TAKE ONE TABLET BY MOUTH 1 TIME PER WEEK TAKE 30 MINUTES BEFORE FIRST FOOD, BEVERAGE OR MEDICATION OF THE DAY. DRINK WITH FULL GLASS OF WATER. REMAIN IN UPRIGHT POSITION FOR AT LEAST 30 MINUTES FOL LOWING DOSE. 12 Apr 16, 2020 [id number] Nov 01, 2019 CRISELDA SUN IN [place] CLINIC ALENDRONATE 70MG TAB Discontinued TAKE ONE TABLET BY MOUTH 1 TIME PER WEEK TAKE 30 MINUTES BEFORE FIRST FOOD, BEVERAGE OR MEDICATION OF THE DAY. DRINK WITH FULL GLASS OF WATER. REMAIN IN UPRIGHT POSITION FOR AT LEAST 30 MINUTES FOL LOWING DOSE. 12 May 23, 2019 [id number] Mar 14, 2019 ELLEN POST [facility] AMLODIPINE BESYLATE 5MG/BENAZEPRIL HCL 10MG CAP Active TAKE 1 CAPSULE BY MOUTH ONCE DAILY 90 May 28, 2020 [id number] Oct 19, 2019 [facility] AMLODIPINE BESYLATE 5MG/BENAZEPRIL HCL 10MG CAP Discontinued TAKE 1 CAPSULE BY MOUTH ONCE DAILY 90 August 16, 2019 [id number] May 02, 2019 ELLEN POST [facility] ASCORBIC ACID 500MG TAB Non-VA TAKE ONE TABLET BY MOUTH ONCE DAILY Non-VA Documented by: SHUKRI HALL nted at: [facility] ATORVASTATIN CA 10MG TAB Active: Susp TAKE ONE TABLET BY MOUTH AT BEDTIME FOR CHOLESTEROL - DO NOT TAKE WITH GRAPEFRUIT JUICE 90 Apr 16, 2020 [id number] Dec 19, 2019 [facility] ATORVA[facility] 10MG TAB Discontinued TAKE ONE TABLET BY MOUTH AT BEDTIME FOR CHOLESTEROL - DO NOT TAKE WITH GRAPEFRUIT JUICE 90 Jul 17, 2019 [id number] Apr 03, 2019 ELLEN POST [facility] ATORVASTATIN CA 20MG TAB Discontinued TAKE ONE-HALF T ABLET BY MOUTH AT BEDTIME FOR CHOLESTEROL - DO NOT TAKE WITH GRAPEFRUIT JUICE 45 May 23, 2019 [id number] Mar 26, 2019 ELLEN POST [facility] BACLOFEN 20MG TAB Active: On Hold TAKE ONE-HALF TABLET BY MOUTH AT BEDTIME -(MAY CAUSE DROWSINESS) 45 Apr 16, 2020 [id number] Jun 14, 2019 [facility] BAC[facility] 20MG TAB Discontinued TAKE ONE-HALF TABLET BY MOUTH AT BEDTIME -(MAY CAUSE DROWSINESS) 45 May 23, 2019 [id number] Mar 26, 2019 ELLEN POST [facility] CHOLECALCIFEROL 1000UNT TAB Non-VA TAKE TWO TABLETS BY MOUTH TWICE A DAY Non-VA Documented by: SHUKRI HALL nted at: [facility] DULOXETINE HCL 30MG CAP,EC Non-VA TAKE 1 CAPSULE BY MOUTH ONCE DAILY Non-VA Documented by: CRISELDA SUNed at: [facility] FERROUS SO4 324MG TAB,EC Non-VA TAKE ONE TABLET BY MOUTH ONCE DAILY Non-VA Documented by: SHUKRI HALL nted at: [facility] FLUTICASONE 200MCG/VILANTEROL 25MCG INHL,ORAL,30D Active INHALE 1 INHALATION (200/25) BY MOUTH ONCE DAILY FOR CHRONIC OBSTRUCTIVE PULMONARY DISEASE OR EMPHYSEMA(CONSULT APPROVED) Jun 12, 2020 [id number] Sep 16, 2019 CRISELDA SUN [facility] FLUTICASONE 200MCG/VILANTEROL 25MCG INHL,ORAL,30D Discontinu ed INHALE 1 INHALATION (200/25) BY MOUTH ONCE DAILY FOR CHRONIC OBSTRUCTIVE PULMONARY DISEASE OR EMPHYSEMA(CONSULT APPROVED) May 23, 2019 [id number] 2019 ELLEN POST [facility] FOLIC ACID 1MG TAB Active TAKE ONE TABLET BY MOUTH QD WITH FOOD 9 0 Mar 07, 2020 [id number] Oct 24, 2019 ELLEN POST [facility] FOLIC ACID 1MG TAB Discontinued TAKE ONE TABLET BY MOUTH QD WITH FO OD 90 May 23, 2019 [id number] Feb 06, 2019 ELLEN POST [facility] HYDROCODONE 10MG/ACETAMINOPHEN 325MG TAB Non-VA TAKE ONE TABLET BY MOUTH EVERY 4 HOURS NEEDED Non-VA Documented by: RICARDO ANTHONY [facility] LIDOCAINE 5% PATCH Active: Susp APPLY 1 PATCH TO THE SKIN ONCE DAILY FOR PAIN (PATCH SHOULD BE REMOVED AFTER 12 HOURS) 90 Mar 07, 2020 [id number] Nov 25, 2019 ELLEN POST [facility] METHOTREXATE NA 2.5MG TAB Active: Susp TAKE SIX TABLE TS BY MOUTH 1 TIME PER WEEK (ONCE EVERY 7 DAYS) CHOICE 72 Mar 07, 2020 [id number] Nov ELLEN POST [facility] METHOTREXATE NA 2.5MG TAB Discontinued TAKE SIX TABLE TS BY MOUTH 1 TIME PER WEEK (ONCE EVERY 7 DAYS) CHOICE 24 Jul 18, 2019 [id number] Oct [address] [facility] OMEPRAZOLE 20MG CAP,EC Discontinued TAKE 2 CAPSULES B Y MOUTH ONCE DAILY FOR THE STOMACH 180 Apr 16, 2020 [id number] Jun 14, 2019 CRISELDA SUN [facility] OMEPRAZOLE 20MG CAP,EC Discontinued TAKE 2 CAPSULES B Y MOUTH ONCE DAILY FOR THE STOMACH 180 May 23, 2019 [id number] Mar 26, 2019 ELLEN POST [facility] PANTOPRAZOLE NA 40MG TAB,EC Active: Susp TAKE ONE TAB LET BY MOUTH EVERY MORNING FOR THE STOMACH 90 May 28, 2020 [id number] Nov 14, 2019 CRISELDA SUN [facility] HCL 2MG TAB N on-VA TAKE ONE TABLET BY MOUTH ONCE DAILY Non-VA Documented by: CRISELDA SUN nted at: [facility] TERAZOSIN HCL 2MG CAP Active TAKE 1 CAPSULE BY MOUTH TWICE A DAY FOR PROSTATE / MAY CAUSE LIGHTHEADEDNESS WHEN STANDING 180 Mar 07, 2020 [id number] Oct 24, 2019 ELLEN POST [facility] TERAZOSIN HCL 2MG CAP Discontinued TAKE 1 CAPSULE BY MOUTH TWICE A DAY FOR PROSTATE / MAY CAUSE LIGHTHEADEDNESS WHEN STANDING 180 May 23, 2019 [id number] Feb 11, 2019 ELLEN POST [facility] ZOLPIDEM TARTRATE 10MG TAB Non-VA TAKE ONE TABLET BY MOUTH AT BEDTIME Non-VA Documented by: ELLEN POST [facility] Problems (Conditions): All historical and current Section Date Range: From patient's date of to the date document was create d. This section includes a list of Problems (Conditions) know n to [facility] for the patient. It includes both active and inacti ve problems (conditions). The data comes from all [place] treatment facilities. Problem Status Problem Code Date of Onset Date of Resolution Comm ent(s) Provider Source Anemia (SNOMED CT 076858920) Active 285.9 Jul 24, 2014 Entered By: MINNA PANTOJA Comment: 07/16 Hb corrected to 13.5 MINNA PANTOJA [facility] Aortic Valve Disorder (SCT 0212387) Active 5188578 Jun 06, 2018 Entered By: ELLEN POST Comment: 06/2018 Murmur/ECHO = Mild aortic valve disease, EF 60-65% ELLEN POST [facility] Bilateral posterior vitreous detachment Active 126428552209128 [facility] Chronic obstructive lung disease (SNOMED CT 48376975) Active 1364 5005 Jun 25, 2014 Entered By: MINNA PANTOJA Comment: ex-smoker 0 [facility] Dry eyes Active 630320110 [facility] GERD - Gastro-esophageal reflux disease Active [id number] SHUKRI HALL [facility] H/O: surgery Active 760565978 Jul 24, 2014 Entered By: MINNA PANTOJA Comment: Colon resection (perforation) 2007Apr 2014 Entered By: MINNA PANTOJA Comment: 2012 colonoscopy negApr 2014 Entered By: MINNA PANTOJA Comment: 2012 L inguinal hernia repair. MINNA PANTOJA [facility] Hyperlipidemia (SNOMED CT 18753302) Active 92950649 Jul 23, 2014 Entered By: MINNA PANTOJA Comment: 07/[address] [facility] Hypertension (SNOMED CT 06296058) Active 95870239 SHUKRI H[address] [facility] Osteoarthritis (SNOMED CT 966663749) Active 715.90 MONIQUE ROMERO J [facility] Osteoporosis (SNOMED CT 69733327) Active 92074365 Jul 24, 2014 Entered By: MINNA PANTOJA Comment: hx of compression fx L spineApr 2014 Entered By: MINNA PANTOJA Comment: 07/16 Trial of tramadol for chronic back pain SHUKRI HALL [facility] Posttraumatic stress disorder (SNOMED CT 50052356) Active 71775154 YOKASTA BUTCHERCY [facility] Recurrent major depression Active 40986384 [place],VALERIA Dina [facility] Rheumatoid arthritis (SNOMED CT 79343246) Active 93701532 Jun 25, 2014 Entered By: MINNA PANTOJA Comment: 05/17 sed rate 47 RF 20 SHUKRI HALL [facility] Relationship problems Inactive [id number] Jul 24, [address] [facility] Radiology Reports: +/- 30 [...] education/information regarding how/when to seek further care. TAOISM PREFERENCE: No change to previously reported church preference: [employer]. Patient reports no cultural/church/spiritual health preferences. /jaqcui/ CORNELL MURRIETA LPN [facility] Signed: 05/28/2019 13:42 [facility]ET[facility] [place] [facility] May 28, 2019 01:36 PM ADMINISTRATIVE [...] Yes VLER Release of Info (SUNI) (Form [id number]): Signed /jacqui/ CORNELL MURRIETA LPN [facility] Signed: 05/28/2019 13:37 CORNELL MURRIETA [facility] May 28, 2019 01:12 PM MEDICATION MGT NOTE: LOCAL TITLE: MEDICATION RECONCILIATION (PROVIDER) STANDARD TITLE: MEDICATION MGT NOTE DATE OF NOTE: MAY 28, 2019@13:12 ENTRY DATE: MAY 28, 2019@13:12:43 AUTHOR: CRISELDA SUN COSIGNER: URGENCY: STATUS: COMPLETED Medication Reconciliation COMPLETED [...] No Active Remote Medications for this patient /es/ CRISELDA SUN APN [facility] Signed: 05/28/2019 13:13 CRISELDA SUN [place] [facility] May 28, 2019 12:59 PM PRIMARY [...] Problem List: 1. Aortic Valve Disorder (SCT 6657275) 06/2018 Murmur/ECHO = Mild aortic valve disease, EF 60-65% 2. GERD - Gastro-esophageal reflux disea se - change omeprazole to pantoprazole 3. Posttraumatic stress disorder (SNOMED CT 65749734) 4. Anemia (SNOMED CT 515724360) - impro ed from 05/22. Continue iron replacement 07/16 Hb corrected to 13.5 5. Rheumatoid arthritis ([place] [address] 004) 05/17 sed rate 47 RF 20 6. Osteoarthritis (SNOMED CT 525931557) 7. Hypertension (SNOMED CT 51624066) 8. Chronic obstructive lung disease (SNO MED CT 71224958) ex-smoker 9. Hyperlipidemia (SNOMED CT 75428433) - lipids at goal; continue atorvastatin as [...] [facility] Signed: 05/28/2019 13:12 CRISELDA SUN [facility] May 28, 2019 12:46 PM PRIMARY CARE NURSING NOTE: LOCAL TITLE: PRIMARY CARE/NURSE STANDARD TITLE: PRIMARY CARE NURSING NOTE DATE OF NOTE: MAY 28, 2019@12:46 ENTRY DATE: MAY 28, 2019@12:46:43 AUTHOR: CORNELL MURRIETA COSIGNER: URGENCY: STATUS: COMPLETED SUBJECTIVE: here for annual [...] overall physical and mental well-being discussed with . Be Involved Eat Wisely Be Tobacco Free [...] transfers/position changes. -Patient does not use a medical accountant that fits over skin (e.g., artificial limb, [...] he/she is not currently registered with a [facility]. Patient declines to be [...] CARE [facility] Signed: 05/28/2019 12:54 CORNELL MURRIETA [facility]
--- OUTSIDE RECORDS SUMMARY | 2019-10-16 09:37 | XMS REPORT | Encounter Summary ---
Author Author Department of [facility] SOLITARIO duenas Organization [facility] Address [address] [place] [address] Phone Unavailable Care Team Providers Care Joiner Helper Name Role Phone DINO CRISELDA PCP Unavailable [...] Mar 03, 2010 RR PART A [id number] SOLITARIO CHEW PATIENT MEDICARE (WNR) MEDICARE (M) RR PART B Mar 03, 2010 RR PART B [id number] SOLITARIO CHEW PATIENT [facility] ([facility]) MEDIGAP PLAN F RAILROAD PLAN F Apr 03 15 [id number] SOLITARIO CHEW PATIENT Selected Encounter This section includes the information on record at [place] for the Encounter. Date/Time Encounter Type Encounter Description Reason Provider Source Mar 07, 2019 05:16 PM Outpatient Encounter PRIMARY CARE/MEDICINE VERONICA MCDONNELL IHE Encounter Template Text not used by [place] Assessments - Encounter Diagnoses No Data Provided for This Section Plan of Treatment: Future Appointments (+ 6 months) and Future Tests (+/- 45 day s) The Plan of Treatment section includes future care activities for the patient fr om all [place] treatment facilities. This section includes future appointments and fu ture orders which are active, pending or scheduled. Future Appointments This section includes appointments that were scheduled t o occur 6 months from the date of the Encounter, up to a maximum of 20 appointme nts. The data comes from all [place] treatment facilities. Appointment Date/Time Appointment Type Appointment Gauri westfall Name May 16, 2019 08:00 AM AMBULATORY - NONE CHANTELLEYETTJEANNETTE AR May 28, 2019 10:30 AM AMBULATORY - NONE VERONICA MCDONNELL May 28, 2019 12:30 PM AMBULATORY - MEDICINE [facility] Surgical Procedures: All associated to the [...] Encoun ter. The data comes from the [place] facility where the Encounter took place. Date/Time Smoking Status/Tobacco Use Comment [facility] May 03, 2018 12:14 PM [...] patient. The data comes from a ll [place] treatment facilities. It does not list Allergies/ADRs [...] [facility] pharmacy in the last 15 m [facility], and 2) all medications recorded in the [place] medical record as "non-VA medic ations". Pharmacy terms refer to VA pharmacy's work on prescriptions. VA patient s are advised to take their medications as instructed by their health care team. The data comes from all [place] treatment facilities. Glossary of Pharmacy Terms:Active = A prescription that can be filled at the local [place] pharmacy.Active: On Hold = An active prescription that will not be filled until pharmacy resolves the issue.Active: Susp = An active prescription that is not scheduled to be filled yet.Clinic Order = A medication received during a visit to a [place] clinic or emergency department (currently not available).Discontinued [...] SHORTNESS OF BREATH 120 May 23, 2019 [id number] Mar 07, 2019 ELLEN POST ALENDRONATE 70MG TAB Active: Susp TAKE ONE TABLET BY MOUTH 1 TIME PER WEEK TAKE 30 MINUTES BEFORE FIRST FOOD, BEVERAGE OR MEDICATION OF THE DAY. DRINK WITH FULL GLASS OF WATER. REMAIN IN UPRIGHT POSITION FOR AT LEAST 30 MINUTES FOL LOWING DOSE. 12 Apr 16, 2020 [id number] Nov 01, 2019 CRISELDA SUN [facility] ALENDRONATE 70MG TAB Discontinued TAKE ONE TABLET BY MOUTH 1 TIME PER WEEK TAKE 30 MINUTES BEFORE FIRST FOOD, BEVERAGE OR MEDICATION OF THE DAY. DRINK WITH FULL GLASS OF WATER. REMAIN IN UPRIGHT POSITION FOR AT LEAST 30 MINUTES FOL LOWING DOSE. 12 May 23, 2019 [id number] Mar 14, 2019 ELLEN POST [facility] AMLODIPINE BESYLATE 5MG/BENAZEPRIL HCL 10MG CAP Active TAKE 1 CAPSULE BY MOUTH ONCE DAILY 90 May 28, 2020 [id number] Oct 19, 2019 CRISELDA SUN [facility] AMLODIPINE BESYLATE 5MG/BENAZEPRIL HCL 10MG CAP Discontinued TAKE 1 CAPSULE BY MOUTH ONCE DAILY 90 August 16, 2019 [id number] May 02, 2019 ELLEN POST [facility] ASCORBIC ACID 500MG TAB Non-VA TAKE ONE TABLET BY MOUTH ONCE DAILY Non-VA Documented by: SHUKRI HALL nted at: [facility] ATORVASTATIN CA 10MG TAB Active: Susp TAKE ONE TABLET BY MOUTH AT BEDTIME FOR CHOLESTEROL - DO NOT TAKE WITH GRAPEFRUIT JUICE 90 Apr 16, 2020 [id number] Dec 19, 2019 CRISELDA SUN [facility] ATORVASTATIN CA 10MG TAB Discontinued TAKE ONE TABLET BY MOUTH AT BEDTIME FOR CHOLESTEROL - DO NOT TAKE WITH GRAPEFRUIT JUICE 90 Jul 17, 2019 [id number] Apr 03, 2019 ELLEN POST [facility] ATORVASTATIN CA 20MG TAB Discontinued TAKE ONE-HALF T ABLET BY MOUTH AT BEDTIME FOR CHOLESTEROL - DO NOT TAKE WITH GRAPEFRUIT JUICE 45 May 23, 2019 [id number] Mar 26, 2019 ELLEN POST [place] BACLOFEN 20MG TAB Active: On Hold TAKE ONE-HALF TABLET BY MOUTH AT BEDTIME -(MAY CAUSE DROWSINESS) 45 Apr 16, 2020 [id number] Jun 14, 2019 CRISELDA SUN [facility] BACLOFEN 20MG TAB Discontinued TAKE ONE-HALF TABLET BY MOUTH AT BEDTIME -(MAY CAUSE DROWSINESS) 45 May 23, 2019 [id number] Mar 26, 2019 ELLEN POST [place] CHOLECALCIFEROL 1000UNT TAB Non-VA TAKE TWO TABLETS BY MOUTH TWICE A DAY Non-VA Documented by: SHUKRI HALL nted at: [facility] DULOXETINE HCL 30MG CAP,EC Non-VA TAKE 1 CAPSULE BY MOUTH ONCE DAILY Non-VA Documented by: CRISELDA SUN nted at: [facility] FERROUS SO4 324MG TAB,EC Non-VA TAKE ONE TABLET BY MOUTH ONCE DAILY Non-VA Documented by: SHUKRI HALL nted at: [facility] FLUTICASONE 200MCG/VILANTEROL 25MCG INHL,ORAL,30D Active INHALE 1 INHALATION (200/25) BY MOUTH ONCE DAILY FOR CHRONIC OBSTRUCTIVE PULMONARY DISEASE OR EMPHYSEMA(CONSULT APPROVED) Jun 12, 2020 [id number] Sep 16, 2019 CRISELDA SUN [facility] FLUTICASONE 200MCG/VILANTEROL 25MCG INHL,ORAL,30D Discontinu ed INHALE 1 INHALATION (200/25) BY MOUTH ONCE DAILY FOR CHRONIC OBSTRUCTIVE PULMONARY DISEASE OR EMPHYSEMA(CONSULT APPROVED) May 23, 2019 [id number] [facility] TAB Active TAKE ONE TABLET BY MOUTH QD WITH FOOD 9 0 Mar 07, 2020 [id number] Oct 24, 2019 ELLEN POST [facility] FOLIC ACID 1MG TAB Discontinued TAKE ONE TABLET BY MOUTH QD WITH FO OD 90 May 23, 2019 [id number] Feb 06, 2019 ELLEN POST [facility] HYDROCODONE 10MG/ACETAMINOPHEN 325MG TAB Non-VA TAKE ONE TABLET BY MOUTH EVERY 4 HOURS NEEDED Non-VA Documented by: RICARDO ANTHONY nted at: [facility] LIDOCAINE 5% PATCH Active: Susp APPLY 1 PATCH TO THE SKIN ONCE DAILY FOR PAIN (PATCH SHOULD BE REMOVED AFTER 12 HOURS) 90 Mar 07, 2020 [id number] Nov 25, 2019 ELLEN POST [facility] METHOTREXATE NA 2.5MG TAB Active: Susp TAKE SIX TABLE TS BY MOUTH 1 TIME PER WEEK (ONCE EVERY 7 DAYS) CHOICE 72 Mar 07, 2020 [id number] Nov ELLEN POST [facility] METHOTREXATE NA 2.5MG TAB Discontinued TAKE SIX TABLE TS BY MOUTH 1 TIME PER WEEK (ONCE EVERY 7 DAYS) CHOICE 24 Jul 18, 2019 [id number] Oct [facility] OMEPRAZOLE 20MG CAP,EC Discontinued TAKE 2 CAPSULES B Y MOUTH ONCE DAILY FOR THE STOMACH 180 Apr 16, 2020 [id number] Jun 14, 2019 CRISELDA SUN [facility] OMEPRAZOLE 20MG CAP,EC Discontinued TAKE 2 CAPSULES B Y MOUTH ONCE DAILY FOR THE STOMACH 180 May 23, 2019 [id number] Mar 26, 2019 ELLEN POST PANTOPRAZOLE NA 40MG TAB,EC Active: Susp TAKE ONE TAB LET BY MOUTH EVERY MORNING FOR THE STOMACH 90 May 28, 2020 [id number] Nov 14, 2019 CRISELDA SUN [facility] ROPINIROLE HCL 2MG TAB N on-VA TAKE ONE TABLET BY MOUTH ONCE DAILY Non-VA Documented by: CRISELDA SUN nted at: [facility] TERAZOSIN HCL 2MG CAP Active TAKE 1 CAPSULE BY MOUTH TWICE A DAY FOR PROSTATE / MAY CAUSE LIGHTHEADEDNESS WHEN STANDING 180 Mar 07, 2020 [id number] J 2019 ELLEN POST [facility] TERAZOSIN HCL 2MG CAP Discontinued TAKE 1 CAPSULE BY MOUTH TWICE A DAY FOR PROSTATE / MAY CAUSE LIGHTHEADEDNESS WHEN STANDING 180 May 23, 2019 [id number] Feb 11, 2019 ELLEN POST [facility] ZOLPIDEM TARTRATE 10MG TAB Non-VA [...] problems (conditions). The data comes from all [place] treatment facilities. Problem Status Problem Code Date of Onset Date of Resolution Comm ent(s) Provider Source Anemia (SNOMED CT 891266497) Active 285.9 Jul 24, 2014 Entered By: MINNA PANTOJA Comment: 07/16 Hb corrected to 13.5 MINNA PANTOJA [facility] Aortic Valve Disorder (SCT 9823626) Active 2009193 Jun 06, 2018 Entered By: ELLEN POST Comment: 06/2018 Murmur/ECHO = Mild aortic valve disease, EF 60-65% ELLEN POST [facility] Bilateral posterior vitreous detachment Active 889083732350156 BRAYDEN TUCKER [facility] Chronic obstructive lung disease (SNOMED CT 64738391) Active 1364 5005 Jun 25, 2014 Entered By: MINNA PANTOJA Comment: ex-smoker 0 [facility] Dry eyes Active 025053081 BRAYDEN TUCKER [facility] GERD - Gastro-esophageal reflux disease Active 641266170 SHUKRI HALL [facility] H/O: surgery Active [id number] Jul 24, 2014 Entered By: MINNA PANTOJA Comment: Colon resection (perforation) 2007Apr 2014 Entered By: MINNA PANTOJA Comment: 2012 colonoscopy negApr 2014 Entered By: MINNA PANTOJA Comment: 2012 L inguinal hernia repair. MINNA PANTOJA [facility] Hyperlipidemia (SNOMED CT 68937370) Active 39023851 Jul 23, 2014 Entered By: MINNA PANTOJA Comment: 07/15 TC 128 SHUKRI HALL [facility] Hypertension (SNOMED CT 94096485) Active 62204838 SHUKRI HALL Delaney [facility] Osteoarthritis (SNOMED CT 929827809) Active 715.90 MONIQUE ROMERO [facility] Osteoporosis (SNOMED CT 81234864) Active 24855902 Jul 24, 2014 Entered By: MINNA PANTOJA Comment: hx of compression fx L spineApr 2014 Entered By: MINNA PANTOJA Comment: 07/16 Trial of tramadol for chronic back pain SHUKRI HALL [facility] Posttraumatic stress disorder (SNOMED CT 27237767) Active 18197864 UZAIR BUTCHER [facility] Recurrent major depression Active 62527753 [place] P [facility] Rheumatoid arthritis (SNOMED CT 52641261) Active 90490138 Jun 25, 2014 Entered By: MINNA PANTOJA Comment: 05/17 sed rate 47 RF [address] [facility] Relationship problems Inactive [id number] Jul 24, 2014 [place] VALERIA VALDIVIA [facility] Radiology Reports: +/- 30 [...] delivery, vet thanked for time. /jacqui/ ANASTACIO BUSTILLOS CLERICAL ADVISER, REGISTERED NURSE-MARLY Signed: 03/07/2019 17:19 Receipt Acknowledged By: * AWAITING SIGNATURE * ELLEN POST ALISON [place] [facility]
--- OUTSIDE RECORDS SUMMARY | 2019-10-16 09:40 | XMS REPORT | Continuity of Care Document ---
Author Organization Unknown Address Unknown Phone Unavailable Allergies Active Description Code Type Severity Reaction Onset Reported/Identified Relationship to Patient Clinical Status Yes alprazolam [id number] Drug Allerg y Unknown N/A 08/21/2013 Yes budesonide [id number] Drug Allerg y Severe NUMB LIPS 09/18/2019 Yes diphenhydramine [id number] D rug Allergy Severe N/A 09/18/2019 Yes formoterol [id number] Drug Allerg y Severe NUMB LIPS 09/18/2019 Yes alprazolam [id number] Drug Allerg y Moderate MENTAL MOOD WAYNE [...] SOTO, LINDA R Ot 433. 30 02/21/2014 TY SOTO, LINDA R Ot 473. 9 02/21/2014 [...] LINDA CRAWFORD MD R Ot Z79.899 OTHER MISSION ASSESSMENT SPECIALIST (CURRENT) DRUG THERAPY 01/10/2016 AUDIE MORA Ot I 10 ESSENTIAL (PRIMARY) HYPERTENSION 01/10/2016 AUDIE MORA Ot J44.1 CHRONIC OBSTRUCTIVE PULMONARY DISEASE W 01/10/2016 AUDIE MORA Ot R06.02 SHORTNESS OF BREATH 01/10/2016 AUDIE MORA Ot Z79.899 OTHER MISSION ASSESSMENT SPECIALIST (CURRENT) DRUG THERAPY 03/31/2016 Ot V72.84 EXA [...] LINDA CRAWFORD MD Ot 794. 09 ABN FLYER MAKER FUNCT STUDY NEC 03/31/2016 ANDRE GONZALEZ JAMARCUS M Ot 493. 00 EXTRINSIC ASTHMA, NOS 03/31/2016 ANDRE GONZALEZ JAMARCUS M Ot 786. 09 RESPIRATORY ABNORM NEC 03/31/2016 LINDA CRAWFORD MD Ot M85. 80 OTH DISRD OF BONE DENSITY AND STRUCTURE, 03/31/2016 LINDA CRAWFORD MD, Ot Z79.899 OTHER MISSION ASSESSMENT SPECIALIST (CURRENT) DRUG THERAPY 03/31/2016 LINDA CRAWFORD MD [...] OBSTRUCTIVE PULMON DISEASE W ACU 04/01/2016 ANTONIO BERNTSEIN DO Ot J44.1 CHRONIC OBSTRUCTIVE PULMONARY DISEASE [...] CRAWFORD MD Ot 368. 2 DIPLOPIA 04/06/2016 LINDA CRAWFORD MD Ot 784. 0 HEADACHE 04/06/2016 LINDA CRAWFORD MD Ot 794. 09 ABN FLYER MAKER FUNCT STUDY NEC 04/06/2016 JAMARCUS POWELL DO Ot 493. 00 EXTRINSIC ASTHMA, NOS 04/06/2016 JAMARCUS POWELL DO Ot 786. 09 RESPIRATORY ABNORM NEC 04/06/2016 LINDA CRAWFORD MD Ot M85. 80 OTH DISRD OF BONE DENSITY AND STRUCTURE, 04/06/2016 LINDA CRAWFORD MD, Ot Z79.899 OTHER LONG-TERM (CURRENT) DRUG THERAPY 04/06/2016 LINAD CRAWFORD MD Ot I10 ESSENTIAL (PRIMARY) HYPERTENSION 04/06/2016 LINDA CRAWFORD MD Ot M81. 0 AGE-RELATED OSTEOPOROSIS W/O CURRENT PAT 04/06/2016 LINDA CRAWFORD MD Ot Z12. 5 ENCOUNTER FOR SCREENING FOR MALIGNANT NE 05/04/2016 DARIO ENGLAND TANNING WHEEL OPERATOR Ot R 05 COUGH 05/04/2016 DARIO ENGLAND APRN Ot R06.02 SHORTNESS OF BREATH 05/11/2016 DARIO ENGLAND TANNING WHEEL OPERATOR Ot R 05 COUGH 05/11/2016 DARIO ENGLAND [...] MD Ot I10 ESSENTIAL (PRIMARY) HYPERTENSION 02/16/2017 ORMAIN LOFTON MD, Ot K21.9 GASTRO-ESOPHAGEAL REFLUX DISEASE [...] R06. 00 DYSPNEA, UNSPECIFIED 06/07/2017 TY SOTO LINDA R Ot R06. 89 [...] RESIDENCE 07/01/2018 CB VALENCIA DO Ot Z79.52 LONG-TERM (CURRENT) USE OF SYSTEMIC STER 07/01/2018 CB [...] Ot 473. 9 CHRONIC SINUSITIS NOS 07/01/2018 LINDA CRAWFORD MD Ot 368. 2 DIPLOPIA 07/01/2018 LINDA CRAWFORD MD Ot 784. 0 HEADACHE 07/01/2018 LINDA CRAWFORD MD Ot 794. 09 ABN FLYER MAKER FUNCT STUDY NEC 07/01/2018 JAMARCUS POWELL DO Ot 493. 00 EXTRINSIC ASTHMA, NOS 07/01/2018 JAMARCUS POWELL DO Ot 786. 09 RESPIRATORY ABNORM NEC 07/01/2018 LINDA CRAWFORD MD Ot M85. 80 OTH DISRD OF BONE DENSITY AND STRUCTURE, 07/01/2018 LINDA CRAWFORD MD, Ot Z79.899 OTHER LONG-TERM (CURRENT) DRUG THERAPY 07/01/2018 LINDA CRAWFORD MD [...] 2 CRAMP AND SPASM 12/13/2018 KAVON SOTO, MICA Burris Ot Z87. 19 [...] E78.00 PURE HYPERCHOLESTEROLEMIA, UNSPECIFIED 04/25/2019 ERIK DO, CB K Ot F32.9 MAJOR [...] anxiety disorder Raisa Garcia 05/31/2019 W M54.5 Senior Copywriter awa low back pain Raisa Garcia 06/11/2019 W F32.1 Yaz r depressive disorder, single episode, moderate Jose, Raisa 06/11/2019 W F41.1 Gene ralized anxiety disorder Jose, 06/11/2019 W M54.5 Senior Copywriter awa low back pain Jose, 06/19/2019 W F32.1 Yaz r depressive disorder, single episode, moderate Jose, Raisa 06/19/2019 W F41.1 Gene ralized anxiety disorder Jose, 06/19/2019 W M54.5 Senior Copywriter awa low back pain Jose, 09/10/2019 W [...] MD Ot F41.9 ANXIETY DISORDER, UNSPECIFIED 09/20/2019 ROMIAN LOFTON MD Ot I10 ESSENTIAL (PRIMARY) HYPERTENSION [...] ROMAIN LOFTON MD, Ot Z79.89 9 OTHER LONG-TERM (CURRENT) DRUG THERAPY 09/20/2019 ROMAIN LOFTON MD, [...] (primary) hypertension Raisa Garcia 09/24/2019 W M54.5 Senior Copywriter awa low back pain Raisa Garcia 09/25/2019 [...] ROMAIN LOFTON MD, Ot Z79.89 9 OTHER MISSION ASSESSMENT SPECIALIST (CURRENT) DRUG THERAPY 09/25/2019 ROMAIN LOFTON MD, [...] MD, Ot K20.8 OTHER ESOPHAGITIS 09/25/2019 ROMAIN LFOTON MD, Ot K22.2 ESOPHAGEAL OBSTRUCTION 09/25/2019 ROMAIN [...] ROMAIN LOFTON MD, Ot Z79.89 9 OTHER MISSION ASSESSMENT SPECIALIST (CURRENT) DRUG THERAPY 09/25/2019 ROMAIN LOFTON MD, [...] (primary) hypertension Raisa Garcia 09/27/2019 W M54.5 Senior Copywriter awa low back pain Raisa Garcia 10/03/2019 [...] ROMAIN LOFTON MD, Ot Z79.89 9 OTHER MISSION ASSESSMENT SPECIALIST (CURRENT) DRUG THERAPY 10/03/2019 ROMAIN LOFTON MD, [...] ROMAIN LOFTON MD, Ot Z79.89 9 OTHER LONG-TERM (CURRENT) DRUG THERAPY 10/03/2019 ROMAIN LOFTON MD, Ot Z86.01 0 PERSONAL HISTORY OF COLONIC POLYPS 10/03/2019 ROMAIN LOFTON MD, Ot Z87.19 PERSONAL HISTORY OF OTHER DISEASES OF 10/03/2019 ROMAIN LOFTON MD, Ot Z87.89 1 PERSONAL HISTORY OF NICOTINE DEPENDENCE 10/03/2019 ROMAIN LOFTON MD, Ot Z88.8 ALLERGY STATUS TO OTH DRUG/MEDS/BIOL SUB 10/04/2019 ROMAIN LOFTON MD, Ot E78.00 PURE HYPERCHOLESTEROLEMIA, UNSPECIFIED 10/04/2019 ROMAIN LOFTON MD, Ot F32.9 MAJOR DEPRESSIVE DISORDER, SINGLE EPISOD 10/04/2019 ROMAIN LOFTON MD, Ot F41.9 ANXIETY DISORDER, UNSPECIFIED 10/04/2019 ROMAIN OLFTON MD, Ot F43.10 POST-TRAUMATIC STRESS DISORDER, UNSPECIF 10/04/2019 ROMAIN LOFTON MD, Ot I10 ESSENTIAL (PRIMARY) HYPERTENSION 10/04/2019 ROMAIN LOFTON MD, Ot J30.2 OTHER SEASONAL ALLERGIC RHINITIS 10/04/2019 ROMAIN LOFTON MD, Ot J44.9 CHRONIC OBSTRUCTIVE PULMONARY DISEASE, U 10/04/2019 ROMAIN LOFTON MD, Ot K21.9 GASTRO-ESOPHAGEAL REFLUX DISEASE WITHOUT 10/04/2019 ROMAIN LOFTON MD, Ot K31.84 GASTROPARESIS 10/04/2019 ROMAIN LOFTON MD, Ot K56.69 0 OTHER PARTIAL INTESTINAL OBSTRUCTION 10/04/2019 ROMAIN LOFTON MD, Ot K57.90 DVRTCLOS OF INTEST, PART UNSP, W/O PERF 10/04/2019 ROMAIN LOFTON MD, Ot K64.1 SECOND DEGREE HEMORRHOIDS 10/04/2019 ROMAIN LOFTON MD, Ot M06.9 RHEUMATOID ARTHRITIS, UNSPECIFIED 10/04/2019 ROMAIN LOFTON MD, Ot M19.91 PRIMARY OSTEOARTHRITIS, UNSPECIFIED SITE 10/04/2019 ROMAIN LOFTON MD, Ot M54.9 DORSALGIA, UNSPECIFIED 10/04/2019 ROMAIN LOFTON MD, Ot M81.0 AGE-RELATED OSTEOPOROSIS W/O CURRENT PAT 10/04/2019 ROMAIN LOFTON MD, Ot N40.0 BENIGN PROSTATIC HYPERPLASIA WITHOUT LOW 10/04/2019 ROMAIN LOFTON MD, Ot Z79.89 9 OTHER LONG-TERM (CURRENT) DRUG THERAPY 10/04/2019 ROMAIN LOFTON MD, Ot Z87.89 1 PERSONAL HISTORY OF NICOTINE DEPENDENCE 10/04/2019 ROMAIN LOFTON MD, Ot Z90.49 ACQUIRED ABSENCE OF OTHER SPECIFIED PART 10/08/2019 ROMAIN LOFTON MD, Ot E78.00 PURE HYPERCHOLESTEROLEMIA, UNSPECIFIED 10/08/2019 ROMAIN LOFTON MD, Ot F32.9 MAJOR DEPRESSIVE DISORDER, SINGLE EPISOD 10/08/2019 ROMAIN LOFTON MD, Ot F41.9 ANXIETY DISORDER, UNSPECIFIED 10/08/2019 ROMAIN LOFTON MD, Ot F43.10 POST-TRAUMATIC STRESS DISORDER, UNSPECIF 10/08/2019 ROMAIN LOFTON MD, Ot I10 ESSENTIAL (PRIMARY) HYPERTENSION 10/08/2019 ROMAIN LOFTON MD, Ot J30.2 OTHER SEASONAL ALLERGIC RHINITIS 10/08/2019 ROMAIN LOFTON MD, Ot J44.9 CHRONIC OBSTRUCTIVE PULMONARY DISEASE, U 10/08/2019 ROMAIN LOFTON MD, Ot K21.9 GASTRO-ESOPHAGEAL REFLUX DISEASE WITHOUT 10/08/2019 ROMAIN LOFTON MD, Ot K31.84 GASTROPARESIS 10/08/2019 ROMAIN LOFTON MD, Ot K56.69 0 OTHER PARTIAL INTESTINAL OBSTRUCTION 10/08/2019 ROMAIN LOFTON MD, Ot K57.90 DVRTCLOS OF INTEST, PART UNSP, W/O PERF 10/08/2019 ROMAIN LOFTON MD, Ot K64.1 SECOND DEGREE HEMORRHOIDS 10/08/2019 ROMAIN LOFTON MD, Ot M06.9 RHEUMATOID ARTHRITIS, UNSPECIFIED 10/08/2019 ROMAIN LOFTON MD, Ot M19.91 PRIMARY OSTEOARTHRITIS, UNSPECIFIED SITE 10/08/2019 ROMAIN LOFTON MD, Ot M54.9 DORSALGIA, UNSPECIFIED 10/08/2019 ROMAIN LOFTON MD, Ot M81.0 AGE-RELATED OSTEOPOROSIS W/O CURRENT PAT 10/08/2019 ROMAIN LOFTON MD, Ot N40.0 BENIGN PROSTATIC HYPERPLASIA WITHOUT LOW 10/08/2019 ROMAIN LOFTON MD, Ot Z79.89 9 OTHER MISSION ASSESSMENT SPECIALIST (CURRENT) DRUG THERAPY 10/08/2019 ROMAIN LOFTON MD, Ot Z87.89 1 PERSONAL HISTORY OF NICOTINE DEPENDENCE 10/08/2019 ROMAIN LOFTON MD, Ot Z90.49 ACQUIRED ABSENCE OF OTHER SPECIFIED PART 10/10/2019 ROMAIN LOFTON MD, Ot A41.9 SEPSIS, UNSPECIFIED ORGANISM 10/10/2019 ROMAIN LOFTON MD, Ot D64.9 ANEMIA, UNSPECIFIED 10/10/2019 ROMAIN LOFTON MD, Ot E78.00 PURE HYPERCHOLESTEROLEMIA, UNSPECIFIED 10/10/2019 ROMAIN LOFTON MD, Ot F32.9 MAJOR DEPRESSIVE DISORDER, SINGLE EPISOD 10/10/2019 ROMAIN LOFTON MD, Ot F41.9 ANXIETY DISORDER, UNSPECIFIED 10/10/2019 ROMAIN LOFTON MD, Ot I12.9 HYPERTENSIVE CHRONIC KIDNEY DISEASE W ST 10/10/2019 ROMAIN LOFTON MD, Ot J44.9 CHRONIC OBSTRUCTIVE PULMONARY DISEASE, U 10/10/2019 ROMAIN LOFTON MD, Ot K21.9 GASTRO-ESOPHAGEAL REFLUX DISEASE WITHOUT 10/10/2019 ROMAIN LOFTON MD, Ot K31.84 GASTROPARESIS 10/10/2019 ROMAIN LOFTON MD, Ot K44.9 DIAPHRAGMATIC HERNIA WITHOUT OBSTRUCTION 10/10/2019 ROMAIN LOFTON MD, Ot K56.69 0 OTHER PARTIAL INTESTINAL OBSTRUCTION 10/10/2019 ROMAIN LOFTON MD, Ot K57.30 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 AB 10/10/2019 ROMAIN LOFTON MD, Ot K64.2 THIRD DEGREE HEMORRHOIDS 10/10/2019 ROMAIN LOFTON MD, Ot K85.90 ACUTE PANCREATITIS WITHOUT NECROSIS OR I 10/10/2019 ROMAIN LOFTON MD, Ot M06.9 RHEUMATOID ARTHRITIS, UNSPECIFIED 10/10/2019 ROMAIN LOFTON MD, Ot M19.91 PRIMARY OSTEOARTHRITIS, UNSPECIFIED SITE 10/10/2019 ROMAIN LOFTON MD, Ot N17.9 ACUTE KIDNEY FAILURE, UNSPECIFIED 10/10/2019 ROMAIN LOFTON MD, Ot N18.9 CHRONIC KIDNEY DISEASE, UNSPECIFIED 10/10/2019 ROMAIN LOFTON MD Ot N40.0 BENIGN PROSTATIC HYPERPLASIA WITHOUT LOW 10/10/2019 ROMAIN LOFTON MD Ot Z87.89 1 PERSONAL HISTORY OF NICOTINE DEPENDENCE 10/11/2019 ROMAIN LOFTON MD, Ot A41.9 SEPSIS, UNSPECIFIED ORGANISM 10/11/2019 ROMAIN LOFTON MD, Ot D64.9 ANEMIA, UNSPECIFIED 10/11/2019 ROMAIN LOFTON MD Ot E78.00 PURE HYPERCHOLESTEROLEMIA, UNSPECIFIED 10/11/2019 ROMAIN LOFTON MD, Ot F32.9 MAJOR DEPRESSIVE DISORDER, SINGLE EPISOD 10/11/2019 ROMAIN LOFTON MD, Ot F41.9 ANXIETY DISORDER, UNSPECIFIED 10/11/2019 ROMAIN LOFTON MD, Ot I12.9 HYPERTENSIVE CHRONIC KIDNEY DISEASE W ST 10/11/2019 ROMAIN LOFTON MD, Ot J44.9 CHRONIC OBSTRUCTIVE PULMONARY DISEASE, U 10/11/2019 ROMAIN LOFTON MD, Ot K21.9 GASTRO-ESOPHAGEAL REFLUX DISEASE WITHOUT 10/11/2019 ROMAIN LOFTON MD, Ot K31.84 GASTROPARESIS 10/11/2019 ROMAIN LOFTON MD, Ot K44.9 DIAPHRAGMATIC HERNIA WITHOUT OBSTRUCTION 10/11/2019 ROMAIN LOFTON MD, Ot K56.69 0 OTHER PARTIAL INTESTINAL OBSTRUCTION 10/11/2019 ROMAIN LOFTON MD, Ot K57.30 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 AB 10/11/2019 ROMAIN LOFTON MD, Ot K64.2 THIRD DEGREE HEMORRHOIDS 10/11/2019 ROMAIN LOFTON MD, Ot K85.90 ACUTE PANCREATITIS WITHOUT NECROSIS OR I 10/11/2019 ROMAIN LOFTON MD, Ot M06.9 RHEUMATOID ARTHRITIS, UNSPECIFIED 10/11/2019 ROMAIN LOFTON MD, Ot M19.91 PRIMARY OSTEOARTHRITIS, UNSPECIFIED SITE 10/11/2019 ROMAIN LOFTON MD, Ot N17.9 ACUTE KIDNEY FAILURE, UNSPECIFIED 10/11/2019 ROMAIN LOFTON MD, Ot N18.9 CHRONIC KIDNEY DISEASE, UNSPECIFIED 10/11/2019 ROMAIN LOFTON MD, Ot N40.0 BENIGN PROSTATIC HYPERPLASIA WITHOUT LOW 10/11/2019 ROMAIN LOFTON MD, Ot Z87.89 1 PERSONAL HISTORY OF NICOTINE DEPENDENCE 10/11/2019 ROMAIN LOFTON MD, Ot A41.9 SEPSIS, UNSPECIFIED ORGANISM 10/11/2019 ROMAIN LOFTON MD, Ot D64.9 ANEMIA, UNSPECIFIED 10/11/2019 ROMAIN LOFTON MD, Ot E78.00 PURE HYPERCHOLESTEROLEMIA, UNSPECIFIED 10/11/2019 ROMAIN LOFTON MD, Ot F32.9 MAJOR DEPRESSIVE DISORDER, SINGLE EPISOD 10/11/2019 ROMAIN LOFTON MD, Ot F41.9 ANXIETY DISORDER, UNSPECIFIED 10/11/2019 ROMAIN LOFTON MD, Ot I12.9 HYPERTENSIVE CHRONIC KIDNEY DISEASE W ST 10/11/2019 ROMAIN LOFTON MD, Ot J44.9 CHRONIC OBSTRUCTIVE PULMONARY DISEASE, U 10/11/2019 ROMAIN LOFTON MD, Ot K21.9 GASTRO-ESOPHAGEAL REFLUX DISEASE WITHOUT 10/11/2019 ROMAIN LOFTON MD, Ot K31.84 GASTROPARESIS 10/11/2019 ROMAIN LOFTON MD, Ot K44.9 DIAPHRAGMATIC HERNIA WITHOUT OBSTRUCTION 10/11/2019 ROMAIN LOFTON MD, Ot K56.69 0 OTHER PARTIAL INTESTINAL OBSTRUCTION 10/11/2019 ROMAIN LOFTON MD, Ot K57.30 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 AB 10/11/2019 ROMAIN LOFTON MD, Ot K64.2 THIRD DEGREE HEMORRHOIDS 10/11/2019 ROMAIN LOFTON MD, Ot K85.90 ACUTE PANCREATITIS WITHOUT NECROSIS OR I 10/11/2019 ROMAIN LOFTON MD, Ot M06.9 RHEUMATOID ARTHRITIS, UNSPECIFIED 10/11/2019 ROMAIN LOFTON MD, Ot M19.91 PRIMARY OSTEOARTHRITIS, UNSPECIFIED SITE 10/11/2019 ROMAIN LOFTON MD, Ot N17.9 ACUTE KIDNEY FAILURE, UNSPECIFIED 10/11/2019 ROMAIN LOFTON MD, Ot N18.9 CHRONIC KIDNEY DISEASE, UNSPECIFIED 10/11/2019 ROMAIN LOFTON MD, Ot N40.0 BENIGN PROSTATIC HYPERPLASIA WITHOUT LOW 10/11/2019 ROMAIN LOFTON MD, Ot Z87.89 1 PERSONAL HISTORY OF NICOTINE DEPENDENCE 10/12/2019 ROMAIN LOFTON MD, Ot A41.9 SEPSIS, UNSPECIFIED ORGANISM 10/12/2019 ROMAIN LOFTON MD, Ot D64.9 ANEMIA, UNSPECIFIED 10/12/2019 ROMAIN LOFTON MD Ot E78.00 PURE HYPERCHOLESTEROLEMIA, UNSPECIFIED 10/12/2019 ROMAIN LOFTON MD, Ot F32.9 MAJOR DEPRESSIVE DISORDER, SINGLE EPISOD 10/12/2019 ROMAIN LOFTON MD, Ot F41.9 ANXIETY DISORDER, UNSPECIFIED 10/12/2019 ROMAIN LOFTON MD, Ot I12.9 HYPERTENSIVE CHRONIC KIDNEY DISEASE W ST 10/12/2019 ROMAIN LOFTON MD, Ot J44.9 CHRONIC OBSTRUCTIVE PULMONARY DISEASE, U 10/12/2019 ROMAIN LOFTON MD, Ot K21.9 GASTRO-ESOPHAGEAL REFLUX DISEASE WITHOUT 10/12/2019 ROMAIN LOFTON MD, Ot K31.84 GASTROPARESIS 10/12/2019 ROMAIN LOFTON MD, Ot K44.9 DIAPHRAGMATIC HERNIA WITHOUT OBSTRUCTION 10/12/2019 ROMAIN LOFTON MD, Ot K56.69 0 OTHER PARTIAL INTESTINAL OBSTRUCTION 10/12/2019 ROMAIN LOFTON MD, Ot K57.30 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 AB 10/12/2019 ROMAIN LOFTON MD, Ot K64.2 THIRD DEGREE HEMORRHOIDS 10/12/2019 ROMAIN LOFTON MD, Ot K85.90 ACUTE PANCREATITIS WITHOUT NECROSIS OR I 10/12/2019 ROMAIN LOFTON MD, Ot M06.9 RHEUMATOID ARTHRITIS, UNSPECIFIED 10/12/2019 ROMAIN LOFTON MD, Ot M19.91 PRIMARY OSTEOARTHRITIS, UNSPECIFIED SITE 10/12/2019 ROMAIN LOFTNO MD, Ot N17.9 ACUTE KIDNEY FAILURE, UNSPECIFIED 10/12/2019 ROMAIN LOFTON MD, Ot N18.9 CHRONIC KIDNEY DISEASE, UNSPECIFIED 10/12/2019 ROMAIN LOFTON MD, Ot N40.0 BENIGN PROSTATIC HYPERPLASIA WITHOUT LOW 10/12/2019 ROMAIN LOFTON MD, Ot Z87.89 1 PERSONAL HISTORY OF NICOTINE DEPENDENCE 10/13/2019 ROMAIN LOFTON MD, Ot A41.9 SEPSIS, UNSPECIFIED ORGANISM 10/13/2019 ROMAIN LOFTON MD, Ot D64.9 ANEMIA, UNSPECIFIED 10/13/2019 ROMAIN LOFTON MD Ot E78.00 PURE HYPERCHOLESTEROLEMIA, UNSPECIFIED 10/13/2019 ROMAIN LOFTON MD Ot F32.9 MAJOR DEPRESSIVE DISORDER, SINGLE EPISOD 10/13/2019 ROMAIN LOFTON MD, Ot F41.9 ANXIETY DISORDER, UNSPECIFIED 10/13/2019 ROMAIN LOFTON MD, Ot I12.9 HYPERTENSIVE CHRONIC KIDNEY DISEASE W ST 10/13/2019 ROMAIN LOFTON MD, Ot J44.9 CHRONIC OBSTRUCTIVE PULMONARY DISEASE, U 10/13/2019 ROMAIN LOFTON MD, Ot K21.9 GASTRO-ESOPHAGEAL REFLUX DISEASE WITHOUT 10/13/2019 ROMAIN LOFTON MD, Ot K31.84 GASTROPARESIS 10/13/2019 ROMAIN LOFTON MD, Ot K44.9 DIAPHRAGMATIC HERNIA WITHOUT OBSTRUCTION 10/13/2019 KIDO MD, TAKAAKI Ot K56.69 0 OTHER PARTIAL INTESTINAL OBSTRUCTION 10/13/2019 ROMAIN LOFTON MD, Ot K57.30 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 AB 10/13/2019 ROMAIN LOFTON MD, Ot K64.2 THIRD DEGREE HEMORRHOIDS 10/13/2019 ROMAIN LOFTON MD, Ot K85.90 ACUTE PANCREATITIS WITHOUT NECROSIS OR I 10/13/2019 ROMAIN LOFTON MD, Ot M06.9 RHEUMATOID ARTHRITIS, UNSPECIFIED 10/13/2019 ROMAIN LOFTON MD, Ot M19.91 PRIMARY OSTEOARTHRITIS, UNSPECIFIED SITE 10/13/2019 ROMAIN LOFTON MD, Ot N17.9 ACUTE KIDNEY FAILURE, UNSPECIFIED 10/13/2019 ROMAIN LOFTON MD, Ot N18.9 CHRONIC KIDNEY DISEASE, UNSPECIFIED 10/13/2019 ROMAIN LOFTON MD, Ot N40.0 BENIGN PROSTATIC HYPERPLASIA WITHOUT LOW 10/13/2019 ROMAIN LOFTON MD Ot Z87.89 1 PERSONAL HISTORY OF NICOTINE DEPENDENCE 10/14/2019 ROMAIN LOFTON MD, Ot A41.9 SEPSIS, UNSPECIFIED ORGANISM 10/14/2019 ROMAIN LOFTON MD, Ot D64.9 ANEMIA, UNSPECIFIED 10/14/2019 ROMAIN LOFTON MD Ot E78.00 PURE HYPERCHOLESTEROLEMIA, UNSPECIFIED 10/14/2019 ROMAIN LOFTON MD, Ot F32.9 MAJOR DEPRESSIVE DISORDER, SINGLE EPISOD 10/14/2019 ROMAIN LOFTON MD, Ot F41.9 ANXIETY DISORDER, UNSPECIFIED 10/14/2019 ROMAIN LOFTON MD, Ot I12.9 HYPERTENSIVE CHRONIC KIDNEY DISEASE W ST 10/14/2019 ROMAIN LOFTON MD, Ot J44.9 CHRONIC OBSTRUCTIVE PULMONARY DISEASE, U 10/14/2019 ROMAIN LOFTON MD, Ot K21.9 GASTRO-ESOPHAGEAL REFLUX DISEASE WITHOUT 10/14/2019 ROMAIN LOFTON MD, Ot K31.84 GASTROPARESIS 10/14/2019 ROMAIN LOFTON MD, Ot K44.9 DIAPHRAGMATIC HERNIA WITHOUT OBSTRUCTION 10/14/2019 ROMAIN LOFTON MD, Ot K56.69 0 OTHER PARTIAL INTESTINAL OBSTRUCTION 10/14/2019 ROMAIN LOFTON MD, Ot K57.30 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 AB 10/14/2019 ROMAIN LOFTON MD, Ot K64.2 THIRD DEGREE HEMORRHOIDS 10/14/2019 ROMAIN LOFTON MD, Ot K85.90 ACUTE PANCREATITIS WITHOUT NECROSIS OR I 10/14/2019 ROMAIN LOFTON MD, Ot M06.9 RHEUMATOID ARTHRITIS, UNSPECIFIED 10/14/2019 ROMAIN LOFTON MD, Ot M19.91 PRIMARY OSTEOARTHRITIS, UNSPECIFIED SITE 10/14/2019 ROMAIN LOFTON MD, Ot N17.9 ACUTE KIDNEY FAILURE, UNSPECIFIED 10/14/2019 ROMAIN LOFTON MD, Ot N18.9 CHRONIC KIDNEY DISEASE, UNSPECIFIED 10/14/2019 ROMAIN LOFTON MD, Ot N40.0 BENIGN PROSTATIC HYPERPLASIA WITHOUT LOW 10/14/2019 ROMAIN LOFTON MD, Ot Z87.89 1 PERSONAL HISTORY OF NICOTINE DEPENDENCE 10/15/2019 ROMAIN LOFTON MD, Ot A41.9 SEPSIS, UNSPECIFIED ORGANISM 10/15/2019 ROMAIN LOFTON MD, Ot D64.9 ANEMIA, UNSPECIFIED 10/15/2019 ROMAIN LOFTON MD, Ot E78.00 PURE HYPERCHOLESTEROLEMIA, UNSPECIFIED 10/15/2019 ROMAIN LOFTON MD, Ot F32.9 MAJOR DEPRESSIVE DISORDER, SINGLE EPISOD 10/15/2019 ROMAIN LOFTON MD, Ot F41.9 ANXIETY DISORDER, UNSPECIFIED 10/15/2019 ROMAIN LOFTON MD, Ot I12.9 HYPERTENSIVE CHRONIC KIDNEY DISEASE W ST 10/15/2019 ROMAIN LOFTON MD, Ot J44.9 CHRONIC OBSTRUCTIVE PULMONARY DISEASE, U 10/15/2019 ROMAIN LOFTON MD, Ot K21.9 GASTRO-ESOPHAGEAL REFLUX DISEASE WITHOUT 10/15/2019 ROMAIN LOFTON MD, Ot K31.84 GASTROPARESIS 10/15/2019 ROMAIN LOFTON MD, Ot K44.9 DIAPHRAGMATIC HERNIA WITHOUT OBSTRUCTION 10/15/2019 ROMAIN LOFTON MD, Ot K56.69 0 OTHER PARTIAL INTESTINAL OBSTRUCTION 10/15/2019 ROMAIN LOFTON MD, Ot K57.30 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 AB 10/15/2019 ROMAIN LOFOTN MD, Ot K64.2 THIRD DEGREE HEMORRHOIDS 10/15/2019 ROMAIN LOFTON MD, Ot K85.90 ACUTE PANCREATITIS WITHOUT NECROSIS OR I 10/15/2019 ROMAIN LOFTON MD, Ot M06.9 RHEUMATOID ARTHRITIS, UNSPECIFIED 10/15/2019 ROMAIN LOFTON MD, Ot M19.91 PRIMARY OSTEOARTHRITIS, UNSPECIFIED SITE 10/15/2019 ROMAIN LOFTON MD, Ot N17.9 ACUTE KIDNEY FAILURE, UNSPECIFIED 10/15/2019 ROMAIN LOFTON MD, Ot N18.9 CHRONIC KIDNEY DISEASE, UNSPECIFIED 10/15/2019 ROMAIN LOFTON MD, Ot N40.0 BENIGN PROSTATIC HYPERPLASIA WITHOUT LOW 10/15/2019 ROMAIN LOFTON MD, Ot Z87.89 1 PERSONAL HISTORY OF NICOTINE DEPENDENCE 10/16/2019 ROMAIN LOFTON MD, Ot A41.9 SEPSIS, UNSPECIFIED ORGANISM 10/16/2019 ROMAIN LOFTON MD, Ot D64.9 ANEMIA, UNSPECIFIED 10/16/2019 ROMAIN LOFTON MD, Ot E78.00 PURE HYPERCHOLESTEROLEMIA, UNSPECIFIED 10/16/2019 ROMAIN LOFTON MD, Ot F32.9 MAJOR DEPRESSIVE DISORDER, SINGLE EPISOD 10/16/2019 ROMAIN LOFTON MD, Ot F41.9 ANXIETY DISORDER, UNSPECIFIED 10/16/2019 ROMAIN LOFTON MD, Ot I12.9 HYPERTENSIVE CHRONIC KIDNEY DISEASE W ST 10/16/2019 ROMAIN LOFTON MD, Ot J44.9 CHRONIC OBSTRUCTIVE PULMONARY DISEASE, U 10/16/2019 ROMAIN LOFTON MD, Ot K21.9 GASTRO-ESOPHAGEAL REFLUX DISEASE WITHOUT 10/16/2019 ROMAIN LOFTON MD, Ot K31.84 GASTROPARESIS 10/16/2019 ROMAIN LOFTON MD, Ot K44.9 DIAPHRAGMATIC HERNIA WITHOUT OBSTRUCTION 10/16/2019 ROMAIN LOFTON MD, Ot K56.69 0 OTHER PARTIAL INTESTINAL OBSTRUCTION 10/16/2019 ROMAIN LOFTON MD, Ot K57.30 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 AB 10/16/2019 ROMAIN LOFTON MD, Ot K64.2 THIRD DEGREE HEMORRHOIDS 10/16/2019 ROMAIN LOFTON MD, Ot K85.90 ACUTE PANCREATITIS WITHOUT NECROSIS OR I 10/16/2019 ROMAIN LOFTON MD, Ot M06.9 RHEUMATOID ARTHRITIS, UNSPECIFIED 10/16/2019 ROMAIN LOFTON MD, Ot M19.91 PRIMARY OSTEOARTHRITIS, UNSPECIFIED SITE 10/16/2019 KIDO MD, TAKAAKI Ot N17.9 ACUTE KIDNEY FAILURE, UNSPECIFIED 10/16/2019 ROLLY SOTO, ROMAIN Gruber N18.9 CHRONIC KIDNEY DISEASE, UNSPECIFIED 10/16/2019 ROLLY SOTO, ROMAIN Gruber N40.0 BENIGN PROSTATIC HYPERPLASIA WITHOUT LOW 10/16/2019 ROLLY SOTO, ROMAIN Gruber Z87.89 1 PERSONAL HISTORY OF NICOTINE DEPENDENCE Procedures Code Description Performed By Per formed On [id number] DR DANG OF STOMACH WITH DRAINAGE DEVICE 10/03/2019 [id number] EX CISION OF ILEUM, OPEN APPROACH 10/08/2019 [id number] RE LEASE SMALL INTESTINE, OPEN APPROACH 10/08/2019 [id number] RE LEASE OMENTUM, OPEN APPROACH 10/08/2019 Results Test Result Range Complete blood count [...] plasma troponin i.cardiac measu rement (mass/volume) - 10/09/16 20:35 Serum or plasma troponin i.cardiac measurement [...] Automated blood platelet mean volume measurement 9.5 [fo_us] 7.4-10.4 Automated blood neutrophils/100 leukocytes 72 % [...] NRG Blood erythrocyte morphology finding identification NORMAL NRG Comprehensive metabolic panel - 12/25/16 18:10 Serum [...] gregorio - 12/25/16 18:52 ABO+Rh group OP NRG Transfusion band number [id number] NRG Blood group antibody screen NEGATIVE NR G Blood lactic acid measurement (moles/vol ume) - 12/25/16 21:02 Blood lactic acid measurement (moles/volume) 0.75 mmol/L 0.50-2.00 Bacterial blood culture - 12/25/16 21:02 Bacterial blood culture NG NRG Bacterial blood culture - 12/25/16 21:23 Bacterial blood culture NG NRG C DIFFICILE AG + TOXIN A/B. - 12/25/16 2 2:47 RESULTS NEGATIVE FOR ANTIGEN AND TOXIN A/B NRG Stool bacteria identification by culture - 12/25/16 22:47 Stool bacteria identification by culture N2 NRG [id number] - 12/25/16 22:47 [id number] FOOTNOTE NRG Complete blood count (CBC) with automate [...] d white blood cell (WBC) differential - 03/30/19 21:45 Blood leukocytes automated count (number/volume) 4.9 [...] 0.0 10*3/uL 0.0-0.1 Comprehensive metabolic panel - 10/03/19 13:30 Serum or plasma sodium measurement (moles/volume) 143 mmol/L 135-145 Serum or plasma potassium measurement (moles/volume) 4.9 mmol/L 3.6-5.0 Serum or plasma chloride measurement (moles/volume) 105 mmol/L 98-107 Carbon dioxide 26 mmol/L 21-32 Serum or plasma anion gap determination (moles/volume) 12 mmol/L 5-14 Serum or plasma urea nitrogen measurement (mass/volume ) 25 mg/dL 7-18 Serum or plasma creatinine measurement (mass/volume) 0.88 mg/dL 0.60-1.30 Serum or plasma urea nitrogen/creatinine mass ratio 28 NRG Serum or plasma creatinine measurement w ith calculation of estimated glomerular filtration rate > NRG Serum or plasma glucose measurement (mass/volume) 168 mg/dL 70-105 Serum or plasma calcium measurement (mass/volume) 9.6 mg/dL 8.5-10.1 Serum or plasma total bilirubin measurement (mass/volu me) 0.3 mg/dL 0.1-1.0 Serum or plasma alkaline phosphatase conchita surement (enzymatic activity/volume) 73 U/L 40-136 Serum or plasma aspartate aminotransfera se measurement (enzymatic activity/volume) 33 U/L 5-34 Serum or plasma alanine aminotransferase measurement (enzymatic activity/volume) 22 U/L 0-55 Serum or plasma protein measurement (mass/volume) 7.7 g/dL 6.4-8.2 Serum or plasma albumin measurement (mass/volume) 4.4 g/dL 3.2-4.5 CALCIUM CORRECTED 9.3 mg/dL 8.5-10.1 Lipase - 10/03/19 13:30 Lipase 30 U/L 8-78 Complete blood count (CBC) with automate d white blood cell (WBC) differential - 10/04/19 06:36 Blood leukocytes automated count (number/volume) 10.1 10*3/uL 4.3-11.0 Blood erythrocytes automated count (number/volume) 4.36 10*6/uL 4.35-5.85 Venous blood hemoglobin measurement (mass/volume) 12.7 g/dL 13.3-17.7 Blood hematocrit (volume fraction) 39 % 40-54 Automated erythrocyte mean corpuscular volume 90 [ foz_us] 80-99 Automated erythrocyte mean corpuscular h emoglobin (mass per erythrocyte) 29 pg 25-34 Automated erythrocyte mean corpuscular h emoglobin concentration measurement (mass/volume) 32 g/dL 32-36 Automated erythrocyte distribution width ratio 15. 1 % 10.0- 14.5 Automated blood platelet count (count/volume) 305 10*3/uL 130-400 Automated blood platelet mean volume measurement 9.6 [foz_us] 7.4-10.4 Automated blood neutrophils/100 leukocytes 84 % 42-75 Automated blood lymphocytes/100 leukocytes 8 % 12-44 Blood monocytes/100 leukocytes 8 % 0-12 Automated blood eosinophils/100 leukocytes 0 % 0-10 Automated blood basophils/100 leukocytes 0 % 0-10 Blood neutrophils automated count (number/volume) 8.5 10*3 1.8-7.8 Blood lymphocytes automated count (number/volume) 0.8 10*3 1.0-4.0 Blood monocytes automated count (number/volume) 0. 8 10*3 0.0-1.0 Automated eosinophil count 0.0 10*3/uL 0 .0-0.3 Automated blood basophil count (count/volume) 0.0 10*3/uL 0.0-0.1 Comprehensive metabolic panel - 10/04/19 06:36 Serum or plasma sodium measurement (moles/volume) 143 mmol/L 135-145 Serum or plasma potassium measurement (moles/volume) 4.1 mmol/L 3.6-5.0 Serum or plasma chloride measurement (moles/volume) 106 mmol/L 98-107 Carbon dioxide 24 mmol/L 21-32 Serum or plasma anion gap determination (moles/volume) 13 mmol/L 5-14 Serum or plasma urea nitrogen measurement (mass/volume ) 24 mg/dL 7-18 Serum or plasma creatinine measurement (mass/volume) 0.77 mg/dL 0.60-1.30 Serum or plasma urea nitrogen/creatinine mass ratio 31 NRG Serum or plasma creatinine measurement w ith calculation of estimated glomerular filtration rate > NRG Serum or plasma glucose measurement (mass/volume) 135 mg/dL 70-105 Serum or plasma calcium measurement (mass/volume) 9.1 mg/dL 8.5-10.1 Serum or plasma total bilirubin measurement (mass/volu me) 0.4 mg/dL 0.1-1.0 Serum or plasma alkaline phosphatase conchita surement (enzymatic activity/volume) 72 U/L 40-136 Serum or plasma aspartate aminotransfera se measurement (enzymatic activity/volume) 30 U/L 5-34 Serum or plasma alanine aminotransferase measurement (enzymatic activity/volume) 22 U/L 0-55 Serum or plasma protein measurement (mass/volume) 7.1 g/dL 6.4-8.2 Serum or plasma albumin measurement (mass/volume) 4.1 g/dL 3.2-4.5 CALCIUM CORRECTED 9.0 mg/dL 8.5-10.1 Manual absolute plasma cell count - 06/20 06:36 Blood monocytes/100 leukocytes 10 % NRG Manual blood segmented neutrophils/100 leukocytes 79 % NRG Blood band neutrophils/100 leukocytes 2 % NRG Manual blood lymphocytes/100 leukocytes 7 % NRG Manual eosinophils/100 leukocytes in nose 2 % NRG Complete blood count (CBC) with automate d white blood cell (WBC) differential - 10/05/19 22:36 Blood leukocytes automated count (number/volume) 5.8 10*3/uL 4.3-11.0 Blood erythrocytes automated count (number/volume) 4.83 10*6/uL 4.35-5.85 Venous blood hemoglobin measurement (mass/volume) 13.9 g/dL 13.3-17.7 Blood hematocrit (volume fraction) 43 % 40-54 Automated erythrocyte mean corpuscular volume 88 [ foz_us] 80-99 Automated erythrocyte mean corpuscular h emoglobin (mass per erythrocyte) 29 pg 25-34 Automated erythrocyte mean corpuscular h emoglobin concentration measurement (mass/volume) 33 g/dL 32-36 Automated erythrocyte distribution width ratio 14. 9 % 10.0- 14.5 Automated blood platelet count (count/volume) 389 10*3/uL 130-400 Automated blood platelet mean volume measurement 9.7 [foz_us] 7.4-10.4 Automated blood neutrophils/100 leukocytes 65 % 42-75 Automated blood lymphocytes/100 leukocytes 15 % 12-44 Blood monocytes/100 leukocytes 20 % 0-12 Automated blood eosinophils/100 leukocytes 0 % 0-10 Automated blood basophils/100 leukocytes 0 % 0-10 Blood neutrophils automated count (number/volume) 3.8 10*3 1.8-7.8 Blood lymphocytes automated count (number/volume) 0.9 10*3 1.0-4.0 Blood monocytes automated count (number/volume) 1. 1 10*3 0.0-1.0 Automated eosinophil count 0.0 10*3/uL 0 .0-0.3 Automated blood basophil count (count/volume) 0.0 10*3/uL 0.0-0.1 Comprehensive metabolic panel - 10/05/19 22:36 Serum or plasma sodium measurement (moles/volume) 138 mmol/L 135-145 Serum or plasma potassium measurement (moles/volume) 3.8 mmol/L 3.6-5.0 Serum or plasma chloride measurement (moles/volume) 92 mmol/L 98-107 Carbon dioxide 27 mmol/L 21-32 Serum or plasma anion gap determination (moles/volume) 19 mmol/L 5-14 Serum or plasma urea nitrogen measurement (mass/volume ) 44 mg/dL 7-18 Serum or plasma creatinine measurement (mass/volume) 1.22 mg/dL 0.60-1.30 Serum or plasma urea nitrogen/creatinine mass ratio 36 NRG Serum or plasma creatinine measurement w ith calculation of estimated glomerular filtration rate 58 NRG Serum or plasma glucose measurement (mass/volume) 148 mg/dL 70-105 Serum or plasma calcium measurement (mass/volume) 9.4 mg/dL 8.5-10.1 Serum or plasma total bilirubin measurement (mass/volu me) 0.7 mg/dL 0.1-1.0 Serum or plasma alkaline phosphatase conchita surement (enzymatic activity/volume) 69 U/L 40-136 Serum or plasma aspartate aminotransfera se measurement (enzymatic activity/volume) 33 U/L 5-34 Serum or plasma alanine aminotransferase measurement (enzymatic activity/volume) 20 U/L 0-55 Serum or plasma protein measurement (mass/volume) 8.2 g/dL 6.4-8.2 Serum or plasma albumin measurement (mass/volume) 4.5 g/dL 3.2-4.5 CALCIUM CORRECTED 9.0 mg/dL 8.5-10.1 Lipase - 10/05/19 22:36 Lipase 354 U/L 8-78 Manual absolute plasma cell count - 07/21 22:36 Blood monocytes/100 leukocytes 22 % NRG Manual blood segmented neutrophils/100 leukocytes 21 % NRG Blood band neutrophils/100 leukocytes 36 % NRG Manual blood lymphocytes/100 leukocytes 21 % NRG Blood erythrocyte morphology finding identification NORMAL NRG Complete blood count (CBC) with automate d white blood cell (WBC) differential - 10/06/19 05:05 Blood leukocytes automated count (number/volume) 5.3 10*3/uL 4.3-11.0 Blood erythrocytes automated count (number/volume) 4.71 10*6/uL 4.35-5.85 Venous blood hemoglobin measurement (mass/volume) 13.3 g/dL 13.3-17.7 Blood hematocrit (volume fraction) 42 % 40-54 Automated erythrocyte mean corpuscular volume 88 [ foz_us] 80-99 Automated erythrocyte mean corpuscular h emoglobin (mass per erythrocyte) 28 pg 25-34 Automated erythrocyte mean corpuscular h emoglobin concentration measurement (mass/volume) 32 g/dL 32-36 Automated erythrocyte distribution width ratio 15. 0 % 10.0- 14.5 Automated blood platelet count (count/volume) 316 10*3/uL 130-400 Automated blood platelet mean volume measurement 10.1 [foz_us] 7.4-10.4 Automated blood neutrophils/100 leukocytes 62 % 42-75 Automated blood lymphocytes/100 leukocytes 13 % 12-44 Blood monocytes/100 leukocytes 24 % 0-12 Automated blood eosinophils/100 leukocytes 0 % 0-10 Automated blood basophils/100 leukocytes 0 % 0-10 Blood neutrophils automated count (number/volume) 3.3 10*3 1.8-7.8 Blood lymphocytes automated count (number/volume) 0.7 10*3 1.0-4.0 Blood monocytes automated count (number/volume) 1. 3 10*3 0.0-1.0 Automated eosinophil count 0.0 10*3/uL 0 .0-0.3 Automated blood basophil count (count/volume) 0.0 10*3/uL 0.0-0.1 Comprehensive metabolic panel - 10/06/19 05:05 Serum or plasma sodium measurement (moles/volume) 138 mmol/L 135-145 Serum or plasma potassium measurement (moles/volume) 3.7 mmol/L 3.6-5.0 Serum or plasma chloride measurement (moles/volume) 93 mmol/L 98-107 Carbon dioxide 27 mmol/L 21-32 Serum or plasma anion gap determination (moles/volume) 18 mmol/L 5-14 Serum or plasma urea nitrogen measurement (mass/volume ) 52 mg/dL 7-18 Serum or plasma creatinine measurement (mass/volume) 1.43 mg/dL 0.60-1.30 Serum or plasma urea nitrogen/creatinine mass ratio 36 NRG Serum or plasma creatinine measurement w ith calculation of estimated glomerular filtration rate 48 NRG Serum or plasma glucose measurement (mass/volume) 131 mg/dL 70-105 Serum or plasma calcium measurement (mass/volume) 9.2 mg/dL 8.5-10.1 Serum or plasma total bilirubin measurement (mass/volu me) 0.6 mg/dL 0.1-1.0 Serum or plasma alkaline phosphatase conchita surement (enzymatic activity/volume) 65 U/L 40-136 Serum or plasma aspartate aminotransfera se measurement (enzymatic activity/volume) 30 U/L 5-34 Serum or plasma alanine aminotransferase measurement (enzymatic activity/volume) 18 U/L 0-55 Serum or plasma protein measurement (mass/volume) 7.6 g/dL 6.4-8.2 Serum or plasma albumin measurement (mass/volume) 4.3 g/dL 3.2-4.5 CALCIUM CORRECTED 9.0 mg/dL 8.5-10.1 Lipase - 10/06/19 05:05 Lipase 403 U/L 8-78 Complete blood count (CBC) with automate d white blood cell (WBC) differential - 10/07/19 05:23 Blood leukocytes automated count (number/volume) 7.5 10*3/uL 4.3-11.0 Blood erythrocytes automated count (number/volume) 4.34 10*6/uL 4.35-5.85 Venous blood hemoglobin measurement (mass/volume) 12.4 g/dL 13.3-17.7 Blood hematocrit (volume fraction) 38 % 40-54 Automated erythrocyte mean corpuscular volume 87 [ foz_us] 80-99 Automated erythrocyte mean corpuscular h emoglobin (mass per erythrocyte) 29 pg 25-34 Automated erythrocyte mean corpuscular h emoglobin concentration measurement (mass/volume) 33 g/dL 32-36 Automated erythrocyte distribution width ratio 14. 2 % 10.0- 14.5 Automated blood platelet count (count/volume) 364 10*3/uL 130-400 Automated blood platelet mean volume measurement 10.2 [foz_us] 7.4-10.4 Automated blood neutrophils/100 leukocytes 74 % 42-75 Automated blood lymphocytes/100 leukocytes 13 % 12-44 Blood monocytes/100 leukocytes 14 % 0-12 Automated blood eosinophils/100 leukocytes 0 % 0-10 Automated blood basophils/100 leukocytes 0 % 0-10 Blood neutrophils automated count (number/volume) 5.5 10*3 1.8-7.8 Blood lymphocytes automated count (number/volume) 1.0 10*3 1.0-4.0 Blood monocytes automated count (number/volume) 1. 0 10*3 0.0-1.0 Automated eosinophil count 0.0 10*3/uL 0 .0-0.3 Automated blood basophil count (count/volume) 0.0 10*3/uL 0.0-0.1 Comprehensive metabolic panel - 10/07/19 05:23 Serum or plasma sodium measurement (moles/volume) 137 mmol/L 135-145 Serum or plasma potassium measurement (moles/volume) 3.4 mmol/L 3.6-5.0 Serum or plasma chloride measurement (moles/volume) 83 mmol/L 98-107 Carbon dioxide 37 mmol/L 21-32 Serum or plasma anion gap determination (moles/volume) 17 mmol/L 5-14 Serum or plasma urea nitrogen measurement (mass/volume ) 74 mg/dL 7-18 Serum or plasma creatinine measurement (mass/volume) 2.36 mg/dL 0.60-1.30 Serum or plasma urea nitrogen/creatinine mass ratio 31 NRG Serum or plasma creatinine measurement w ith calculation of estimated glomerular filtration rate 27 NRG Serum or plasma glucose measurement (mass/volume) 146 mg/dL 70-105 Serum or plasma calcium measurement (mass/volume) 9.2 mg/dL 8.5-10.1 Serum or plasma total bilirubin measurement (mass/volu me) 0.7 mg/dL 0.1-1.0 Serum or plasma alkaline phosphatase conchita surement (enzymatic activity/volume) 61 U/L 40-136 Serum or plasma aspartate aminotransfera se measurement (enzymatic activity/volume) 36 U/L 5-34 Serum or plasma alanine aminotransferase measurement (enzymatic activity/volume) 19 U/L 0-55 Serum or plasma protein measurement (mass/volume) 7.6 g/dL 6.4-8.2 Serum or plasma albumin measurement (mass/volume) 4.4 g/dL 3.2-4.5 CALCIUM CORRECTED 8.9 mg/dL 8.5-10.1 Lipase - 10/07/19 05:23 Lipase 566 U/L 8-78 Automated blood complete blood count (he mogram) panel - 10/08/19 05:20 Blood leukocytes automated count (number/volume) 4.9 10*3/uL 4.3-11.0 Blood erythrocytes automated count (number/volume) 4.06 10*6/uL 4.35-5.85 Venous blood hemoglobin measurement (mass/volume) 11.6 g/dL 13.3-17.7 Blood hematocrit (volume fraction) 36 % 40-54 Automated erythrocyte mean corpuscular volume 87 [ foz_us] 80-99 Automated erythrocyte mean corpuscular h emoglobin (mass per erythrocyte) 29 pg 25-34 Automated erythrocyte mean corpuscular h emoglobin concentration measurement (mass/volume) 33 g/dL 32-36 Automated erythrocyte distribution width ratio 14. 2 % 10.0- 14.5 Automated blood platelet count (count/volume) 313 10*3/uL 130-400 Automated blood platelet mean volume measurement 10.0 [foz_us] 7.4-10.4 Comprehensive metabolic panel - 10/08/19 05:20 Serum or plasma sodium measurement (moles/volume) 138 mmol/L 135-145 Serum or plasma potassium measurement (moles/volume) 3.2 mmol/L 3.6-5.0 Serum or plasma chloride measurement (moles/volume) 89 mmol/L 98-107 Carbon dioxide 33 mmol/L 21-32 Serum or plasma anion gap determination (moles/volume) 16 mmol/L 5-14 Serum or plasma urea nitrogen measurement (mass/volume ) 68 mg/dL 7-18 Serum or plasma creatinine measurement (mass/volume) 1.37 mg/dL 0.60-1.30 Serum or plasma urea nitrogen/creatinine mass ratio 50 NRG Serum or plasma creatinine measurement w ith calculation of estimated glomerular filtration rate 51 NRG Serum or plasma glucose measurement (mass/volume) 118 mg/dL 70-105 Serum or plasma calcium measurement (mass/volume) 8.3 mg/dL 8.5-10.1 Serum or plasma total bilirubin measurement (mass/volu me) 0.6 mg/dL 0.1-1.0 Serum or plasma alkaline phosphatase conchita surement (enzymatic activity/volume) 61 U/L 40-136 Serum or plasma aspartate aminotransfera se measurement (enzymatic activity/volume) 33 U/L 5-34 Serum or plasma alanine aminotransferase measurement (enzymatic activity/volume) 17 U/L 0-55 Serum or plasma protein measurement (mass/volume) 6.4 g/dL 6.4-8.2 Serum or plasma albumin measurement (mass/volume) 3.7 g/dL 3.2-4.5 CALCIUM CORRECTED 8.5 mg/dL 8.5-10.1 Blood lactic acid measurement (moles/vol ume) - 10/08/19 05:20 Blood lactic acid measurement (moles/volume) 1.14 mmol/L 0.50-2.00 Lipase - 10/08/19 05:20 Lipase 85 U/L 8-78 Bacterial blood culture - 10/08/19 05:20 Bacterial blood culture NG NRG Bacterial blood culture - 10/08/19 05:23 QUANTITY OF GROWTH Isolated NRG Bacterial blood culture [id number] NRG SUSCEPTIBILITY SUSCEPTIBILITY TO FOLLOW NRG RED CELLS LEUKO REDUCED AS1 - 10/08/19 0 6:30 RED CELLS LEUKO REDUCED AS1 T RANSFUSED 10/10/19 1444 NRG Blood type T Indirect antibody screen pa gregorio - 10/08/19 06:30 WRISTBAND NUMBER [id number] NRG ABO+Rh group OP NRG Blood group antibody screen NEGATIVE NR G Coronavirus SARS-CoV-2 SO 2019 - 0 09:03 Coronavirus Ab [Units/volume] in Serum Negative Negative Whole blood hemoglobin and hematocrit [facility] - 10/08/19 13:19 Venous blood hemoglobin measurement (mass/volume) 9.3 g/dL 13.3-17.7 Blood hematocrit (volume fraction) 30 % 40-54 Methicillin resistant Staphylococcus aur eus (MRSA) screening culture - 10/08/19 15:42 Methicillin resistant Staphylococcus aureus (MRSA) scr eening culture NEG NRG Whole blood hemoglobin and hematocrit [facility] - 10/08/19 21:25 Venous blood hemoglobin measurement (mass/volume) 8.1 g/dL 13.3-17.7 Blood hematocrit (volume fraction) 26 % 40-54 Arterial blood gas measurement - 0 21:25 Blood pCO2 26 mm[Hg] 35-45 Blood pO2 113 mm[Hg] 79-93 Arterial blood bicarbonate measurement (moles/volume) 21 mmol/L 23-27 Arterial blood base excess by calculation -2.2 mmo l/L -2.5-2.5 Arterial blood oxygen saturation measurement 98 % 94-100 * Inhaled oxygen flow rate 5 NRG Arterial blood pH measurement with patient temperature correction 7.50 7.37-7.43 Arterial blood carbon dioxide, total measurement (mole s/volume) 21.5 mmol/L 21.0-31.0 Body site RIGHT RADIAL NRG Assessment of wrist artery patency prior to arterial p uncture POSITIVE NRG Setting of ventilation mode NO NR G Measurement of body temperature 36.0 NRG Complete blood count (CBC) with automate d white blood cell (WBC) differential - 10/09/19 03:00 Blood leukocytes automated count (number/volume) 21.5 10*3/uL 4.3-11.0 Blood erythrocytes automated count (number/volume) 3.01 10*6/uL 4.35-5.85 Venous blood hemoglobin measurement (mass/volume) 8.7 g/dL 13.3-17.7 Blood hematocrit (volume fraction) 27 % 40-54 Automated erythrocyte mean corpuscular volume 88 [ foz_us] 80-99 Automated erythrocyte mean corpuscular h emoglobin (mass per erythrocyte) 29 pg 25-34 Automated erythrocyte mean corpuscular h emoglobin concentration measurement (mass/volume) 33 g/dL 32-36 Automated erythrocyte distribution width ratio 14. 1 % 10.0- 14.5 Automated blood platelet count (count/volume) 254 10*3/uL 130-400 Automated blood platelet mean volume measurement 10.6 [foz_us] 7.4-10.4 Automated blood neutrophils/100 leukocytes 93 % 42-75 Automated blood lymphocytes/100 leukocytes 3 % 12-44 Blood monocytes/100 leukocytes 3 % 0-12 Automated blood eosinophils/100 leukocytes 0 % 0-10 Automated blood basophils/100 leukocytes 0 % 0-10 Blood neutrophils automated count (number/volume) 20.1 10*3 1.8-7.8 Blood lymphocytes automated count (number/volume) 0.6 10*3 1.0-4.0 Blood monocytes automated count (number/volume) 0. 7 10*3 0.0-1.0 Automated eosinophil count 0.0 10*3/uL 0 .0-0.3 Automated blood basophil count (count/volume) 0.0 10*3/uL 0.0-0.1 Comprehensive metabolic panel - 10/09/19 03:00 Serum or plasma sodium measurement (moles/volume) 140 mmol/L 135-145 Serum or plasma potassium measurement (moles/volume) 3.9 mmol/L 3.6-5.0 Serum or plasma chloride measurement (moles/volume) 102 mmol/L 98-107 Carbon dioxide 23 mmol/L 21-32 Serum or plasma anion gap determination (moles/volume) 15 mmol/L 5-14 Serum or plasma urea nitrogen measurement (mass/volume ) 59 mg/dL 7-18 Serum or plasma creatinine measurement (mass/volume) 2.60 mg/dL 0.60-1.30 Serum or plasma urea nitrogen/creatinine mass ratio 23 NRG Serum or plasma creatinine measurement w ith calculation of estimated glomerular filtration rate 24 NRG Serum or plasma glucose measurement (mass/volume) 121 mg/dL 70-105 Serum or plasma calcium measurement (mass/volume) 6.8 mg/dL 8.5-10.1 Serum or plasma total bilirubin measurement (mass/volu me) 0.8 mg/dL 0.1-1.0 Serum or plasma alkaline phosphatase conchita surement (enzymatic activity/volume) 34 U/L 40-136 Serum or plasma aspartate aminotransfera se measurement (enzymatic activity/volume) 413 U/L 5-34 Serum or plasma alanine aminotransferase measurement (enzymatic activity/volume) 416 U/L 0-55 Serum or plasma protein measurement (mass/volume) 3.8 g/dL 6.4-8.2 Serum or plasma albumin measurement (mass/volume) 2.3 g/dL 3.2-4.5 CALCIUM CORRECTED 8.2 mg/dL 8.5-10.1 Serum or plasma phosphate measurement (m ass/volume) - 10/09/19 03:00 Serum or plasma phosphate measurement (mass/volume) 4.4 mg/dL 2.3-4.7 Magnesium - 10/09/19 03:00 Magnesium 1.9 mg/dL 1.6-2.4 Complete blood count (CBC) with automate d white blood cell (WBC) differential - 10/10/19 02:30 Blood leukocytes automated count (number/volume) 25.5 10*3/uL 4.3-11.0 Blood erythrocytes automated count (number/volume) 2.49 10*6/uL 4.35-5.85 Venous blood hemoglobin measurement (mass/volume) 7.1 g/dL 13.3-17.7 Blood hematocrit (volume fraction) 22 % 40-54 Automated erythrocyte mean corpuscular volume 87 [ foz_us] 80-99 Automated erythrocyte mean corpuscular h emoglobin (mass per erythrocyte) 29 pg 25-34 Automated erythrocyte mean corpuscular h emoglobin concentration measurement (mass/volume) 33 g/dL 32-36 Automated erythrocyte distribution width ratio 14. 3 % 10.0- 14.5 Automated blood platelet count (count/volume) 204 10*3/uL 130-400 Automated blood platelet mean volume measurement 9.8 [foz_us] 7.4-10.4 Automated blood neutrophils/100 leukocytes 94 % 42-75 Automated blood lymphocytes/100 leukocytes 2 % 12-44 Blood monocytes/100 leukocytes 3 % 0-12 Automated blood eosinophils/100 leukocytes 0 % 0-10 Automated blood basophils/100 leukocytes 0 % 0-10 Blood neutrophils automated count (number/volume) 24.0 10*3 1.8-7.8 Blood lymphocytes automated count (number/volume) 0.6 10*3 1.0-4.0 Blood monocytes automated count (number/volume) 0. 9 10*3 0.0-1.0 Automated eosinophil count 0.0 10*3/uL 0 .0-0.3 Automated blood basophil count (count/volume) 0.0 10*3/uL 0.0-0.1 PT panel in platelet poor plasma by coag ulation assay - 10/10/19 02:30 Prothrombin time (PT) in platelet poor plasma by coagu lation assay 18.9 s 12.2-14.7 INR in platelet poor plasma or blood by coagulation as say 1.5 0.8-1.4 Manual absolute plasma cell count - 12/21 02:30 Blood monocytes/100 leukocytes 4 % NRG Manual blood segmented neutrophils/100 leukocytes 73 % NRG Blood band neutrophils/100 leukocytes 19 % NRG Manual blood lymphocytes/100 leukocytes 4 % NRG Comprehensive metabolic panel - 10/10/19 02:30 Serum or plasma sodium measurement (moles/volume) 140 mmol/L 135-145 Serum or plasma potassium measurement (moles/volume) 3.3 mmol/L 3.6-5.0 Serum or plasma chloride measurement (moles/volume) 104 mmol/L 98-107 Carbon dioxide 25 mmol/L 21-32 Serum or plasma anion gap determination (moles/volume) 11 mmol/L 5-14 Serum or plasma urea nitrogen measurement (mass/volume ) 51 mg/dL 7-18 Serum or plasma creatinine measurement (mass/volume) 1.87 mg/dL 0.60-1.30 Serum or plasma urea nitrogen/creatinine mass ratio 27 NRG Serum or plasma creatinine measurement w ith calculation of estimated glomerular filtration rate 35 NRG Serum or plasma glucose measurement (mass/volume) 98 mg/dL 70-105 Serum or plasma calcium measurement (mass/volume) 7.0 mg/dL 8.5-10.1 Serum or plasma total bilirubin measurement (mass/volu me) 0.5 mg/dL 0.1-1.0 Serum or plasma alkaline phosphatase conchita surement (enzymatic activity/volume) 50 U/L 40-136 Serum or plasma aspartate aminotransfera se measurement (enzymatic activity/volume) 427 U/L 5-34 Serum or plasma alanine aminotransferase measurement (enzymatic activity/volume) 481 U/L 0-55 Serum or plasma protein measurement (mass/volume) 4.0 g/dL 6.4-8.2 Serum or plasma albumin measurement (mass/volume) 2.1 g/dL 3.2-4.5 CALCIUM CORRECTED 8.5 mg/dL 8.5-10.1 Serum or plasma phosphate measurement (m ass/volume) - 10/10/19 02:30 Serum or plasma phosphate measurement (mass/volume) 2.9 mg/dL 2.3-4.7 Magnesium - 10/10/19 02:30 Magnesium 1.8 mg/dL 1.6-2.4 Serum or plasma triglyceride measurement (mass/volume) - 10/10/19 02:30 Serum or plasma triglyceride measurement (mass/volume) 103 mg/dL <150 Prealbumin - 10/10/19 02:30 Serum or plasma prealbumin measurement (mass/volume) 4.7 % 18.0-37.0 Complete blood count (CBC) with automate d white blood cell (WBC) differential - 10/11/19 06:05 Blood leukocytes automated count (number/volume) 20.5 10*3/uL 4.3-11.0 Blood erythrocytes automated count (number/volume) 2.78 10*6/uL 4.35-5.85 Venous blood hemoglobin measurement (mass/volume) 8.1 g/dL 13.3-17.7 Blood hematocrit (volume fraction) 24 % 40-54 Automated erythrocyte mean corpuscular volume 87 [ foz_us] 80-99 Automated erythrocyte mean corpuscular h emoglobin (mass per erythrocyte) 29 pg 25-34 Automated erythrocyte mean corpuscular h emoglobin concentration measurement (mass/volume) 34 g/dL 32-36 Automated erythrocyte distribution width ratio 14. 1 % 10.0- 14.5 Automated blood platelet count (count/volume) 116 10*3/uL 130-400 Automated blood platelet mean volume measurement 10.3 [foz_us] 7.4-10.4 Automated blood neutrophils/100 leukocytes 95 % 42-75 Automated blood lymphocytes/100 leukocytes 2 % 12-44 Blood monocytes/100 leukocytes 2 % 0-12 Automated blood eosinophils/100 leukocytes 0 % 0-10 Automated blood basophils/100 leukocytes 0 % 0-10 Blood neutrophils automated count (number/volume) 19.4 10*3 1.8-7.8 Blood lymphocytes automated count (number/volume) 0.5 10*3 1.0-4.0 Blood monocytes automated count (number/volume) 0. 5 10*3 0.0-1.0 Automated eosinophil count 0.0 10*3/uL 0 .0-0.3 Automated blood basophil count (count/volume) 0.1 10*3/uL 0.0-0.1 Comprehensive metabolic panel - 10/11/19 06:05 Serum or plasma sodium measurement (moles/volume) 144 mmol/L 135-145 Serum or plasma potassium measurement (moles/volume) 3.6 mmol/L 3.6-5.0 Serum or plasma chloride measurement (moles/volume) 111 mmol/L 98-107 Carbon dioxide 25 mmol/L 21-32 Serum or plasma anion gap determination (moles/volume) 8 mmol/L 5-14 Serum or plasma urea nitrogen measurement (mass/volume ) 36 mg/dL 7-18 Serum or plasma creatinine measurement (mass/volume) 1.01 mg/dL 0.60-1.30 Serum or plasma urea nitrogen/creatinine mass ratio 36 NRG Serum or plasma creatinine measurement w ith calculation of estimated glomerular filtration rate > NRG Serum or plasma glucose measurement (mass/volume) 153 mg/dL 70-105 Serum or plasma calcium measurement (mass/volume) 7.4 mg/dL 8.5-10.1 Serum or plasma total bilirubin measurement (mass/volu me) 0.4 mg/dL 0.1-1.0 Serum or plasma alkaline phosphatase conchita surement (enzymatic activity/volume) 69 U/L 40-136 Serum or plasma aspartate aminotransfera se measurement (enzymatic activity/volume) 806 U/L 5-34 Serum or plasma alanine aminotransferase measurement (enzymatic activity/volume) 1019 U/L 0-55 Serum or plasma protein measurement (mass/volume) 4.1 g/dL 6.4-8.2 Serum or plasma albumin measurement (mass/volume) 2.1 g/dL 3.2-4.5 CALCIUM CORRECTED 8.9 mg/dL 8.5-10.1 Serum or plasma phosphate measurement (m ass/volume) - 10/11/19 06:05 Serum or plasma phosphate measurement (mass/volume) 1.8 mg/dL 2.3-4.7 Magnesium - 10/11/19 06:05 Magnesium 2.6 mg/dL 1.6-2.4 Automated blood complete blood count (he mogram) panel - 10/12/19 04:40 Blood leukocytes automated count (number/volume) 29.5 10*3/uL 4.3-11.0 Blood erythrocytes automated count (number/volume) 2.74 10*6/uL 4.35-5.85 Venous blood hemoglobin measurement (mass/volume) 8.0 g/dL 13.3-17.7 Blood hematocrit (volume fraction) 24 % 40-54 Automated erythrocyte mean corpuscular volume 88 [ foz_us] 80-99 Automated erythrocyte mean corpuscular h emoglobin (mass per erythrocyte) 29 pg 25-34 Automated erythrocyte mean corpuscular h emoglobin concentration measurement (mass/volume) 33 g/dL 32-36 Automated erythrocyte distribution width ratio 14. 6 % 10.0- 14.5 Automated blood platelet count (count/volume) 59 1 0*3/uL 130-400 Automated blood platelet mean volume measurement 10.5 [foz_us] 7.4-10.4 Comprehensive metabolic panel - 10/12/19 04:40 Serum or plasma sodium measurement (moles/volume) 145 mmol/L 135-145 Serum or plasma potassium measurement (moles/volume) 3.3 mmol/L 3.6-5.0 Serum or plasma chloride measurement (moles/volume) 112 mmol/L 98-107 Carbon dioxide 26 mmol/L 21-32 Serum or plasma anion gap determination (moles/volume) 7 mmol/L 5-14 Serum or plasma urea nitrogen measurement (mass/volume ) 24 mg/dL 7-18 Serum or plasma creatinine measurement (mass/volume) 0.81 mg/dL 0.60-1.30 Serum or plasma urea nitrogen/creatinine mass ratio 30 NRG Serum or plasma creatinine measurement w ith calculation of estimated glomerular filtration rate > NRG Serum or plasma glucose measurement (mass/volume) 114 mg/dL 70-105 Serum or plasma calcium measurement (mass/volume) 7.3 mg/dL 8.5-10.1 Serum or plasma total bilirubin measurement (mass/volu me) 0.7 mg/dL 0.1-1.0 Serum or plasma alkaline phosphatase conchita surement (enzymatic activity/volume) 72 U/L 40-136 Serum or plasma aspartate aminotransfera se measurement (enzymatic activity/volume) 427 U/L 5-34 Serum or plasma alanine aminotransferase measurement (enzymatic activity/volume) 702 U/L 0-55 Serum or plasma protein measurement (mass/volume) 4.2 g/dL 6.4-8.2 Serum or plasma albumin measurement (mass/volume) 2.0 g/dL 3.2-4.5 CALCIUM CORRECTED 8.9 mg/dL 8.5-10.1 Serum or plasma phosphate measurement (m ass/volume) - 10/12/19 04:40 Serum or plasma phosphate measurement (mass/volume) 2.3 mg/dL 2.3-4.7 Magnesium - 10/12/19 04:40 Magnesium 2.0 mg/dL 1.6-2.4 Serum or plasma amylase measurement (enz ymatic activity/volume) - 10/12/19 04:40 Serum or plasma amylase measurement (enzymatic activit y/volume) 71 U/L 25-125 Lipase - 10/12/19 04:40 Lipase 84 U/L 8-78 Complete blood count (CBC) with automate d white blood cell (WBC) differential - 10/13/19 05:37 Blood leukocytes automated count (number/volume) 36.9 10*3/uL 4.3-11.0 Blood erythrocytes automated count (number/volume) 2.42 10*6/uL 4.35-5.85 Venous blood hemoglobin measurement (mass/volume) 7.1 g/dL 13.3-17.7 Blood hematocrit (volume fraction) 22 % 40-54 Automated erythrocyte mean corpuscular volume 89 [ foz_us] 80-99 Automated erythrocyte mean corpuscular h emoglobin (mass per erythrocyte) 29 pg 25-34 Automated erythrocyte mean corpuscular h emoglobin concentration measurement (mass/volume) 33 g/dL 32-36 Automated erythrocyte distribution width ratio 14. 2 % 10.0- 14.5 Automated blood platelet count (count/volume) 36 1 0*3/uL 130-400 Automated blood platelet mean volume measurement 11.5 [foz_us] 7.4-10.4 Automated blood neutrophils/100 leukocytes 90 % 42-75 Automated blood lymphocytes/100 leukocytes 4 % 12-44 Blood monocytes/100 leukocytes 3 % 0-12 Automated blood eosinophils/100 leukocytes 1 % 0-10 Automated blood basophils/100 leukocytes 2 % 0-10 Blood neutrophils automated count (number/volume) 33.1 10*3 1.8-7.8 Blood lymphocytes automated count (number/volume) 1.4 10*3 1.0-4.0 Blood monocytes automated count (number/volume) 1. 2 10*3 0.0-1.0 Automated eosinophil count 0.3 10*3/uL 0 .0-0.3 Automated blood basophil count (count/volume) 0.8 10*3/uL 0.0-0.1 Comprehensive metabolic panel - 10/13/19 05:37 Serum or plasma sodium measurement (moles/volume) 146 mmol/L 135-145 Serum or plasma potassium measurement (moles/volume) 3.3 mmol/L 3.6-5.0 Serum or plasma chloride measurement (moles/volume) 116 mmol/L 98-107 Carbon dioxide 21 mmol/L 21-32 Serum or plasma anion gap determination (moles/volume) 9 mmol/L 5-14 Serum or plasma urea nitrogen measurement (mass/volume ) 20 mg/dL 7-18 Serum or plasma creatinine measurement (mass/volume) 0.74 mg/dL 0.60-1.30 Serum or plasma urea nitrogen/creatinine mass ratio 27 NRG Serum or plasma creatinine measurement w ith calculation of estimated glomerular filtration rate > NRG Serum or plasma glucose measurement (mass/volume) 110 mg/dL 70-105 Serum or plasma calcium measurement (mass/volume) 7.2 mg/dL 8.5-10.1 Serum or plasma total bilirubin measurement (mass/volu me) 0.9 mg/dL 0.1-1.0 Serum or plasma alkaline phosphatase conchita surement (enzymatic activity/volume) 75 U/L 40-136 Serum or plasma aspartate aminotransfera se measurement (enzymatic activity/volume) 221 U/L 5-34 Serum or plasma alanine aminotransferase measurement (enzymatic activity/volume) 429 U/L 0-55 Serum or plasma protein measurement (mass/volume) 4.1 g/dL 6.4-8.2 Serum or plasma albumin measurement (mass/volume) 1.9 g/dL 3.2-4.5 CALCIUM CORRECTED 8.9 mg/dL 8.5-10.1 Serum or plasma phosphate measurement (m ass/volume) - 10/13/19 05:37 Serum or plasma phosphate measurement (mass/volume) 2.0 mg/dL 2.3-4.7 Magnesium - 10/13/19 05:37 Magnesium 1.9 mg/dL 1.6-2.4 RED CELLS LEUKO REDUCED AS1 - 10/13/19 1 1:20 RED CELLS LEUKO REDUCED AS1 T RANSFUSED 10/13/19 1357 NRG Blood type T Indirect antibody screen pa gregorio - 10/13/19 11:20 WRISTBAND NUMBER [id number] NRG ABO+Rh group OP NRG Blood group antibody screen NEGATIVE NR G C DIFFICILE AG + TOXIN A/B. - 10/13/19 1 3:30 C DIFFICILE AG + TOXIN A/B. TNP NR G C DIFFICILE AG + TOXIN A/B. - 10/13/19 1 6:50 C DIFFICILE AG + TOXIN A/B. TNP NR G Venous blood hemoglobin measurement (mas s/volume) - 10/13/19 18:58 Venous blood hemoglobin measurement (mass/volume) 8.1 g/dL 13.3-17.7 Complete blood count (CBC) with automate d white blood cell (WBC) differential - 10/14/19 05:55 Blood leukocytes automated count (number/volume) 36.7 10*3/uL 4.3-11.0 Blood erythrocytes automated count (number/volume) 2.69 10*6/uL 4.35-5.85 Venous blood hemoglobin measurement (mass/volume) 7.9 g/dL 13.3-17.7 Blood hematocrit (volume fraction) 24 % 40-54 Automated erythrocyte mean corpuscular volume 89 [ foz_us] 80-99 Automated erythrocyte mean corpuscular h emoglobin (mass per erythrocyte) 29 pg 25-34 Automated erythrocyte mean corpuscular h emoglobin concentration measurement (mass/volume) 33 g/dL 32-36 Automated erythrocyte distribution width ratio 14. 7 % 10.0- 14.5 Automated blood platelet count (count/volume) 33 1 0*3/uL 130-400 Automated blood platelet mean volume measurement 11.4 [foz_us] 7.4-10.4 Automated blood neutrophils/100 leukocytes 86 % 42-75 Automated blood lymphocytes/100 leukocytes 5 % 12-44 Blood monocytes/100 leukocytes 6 % 0-12 Automated blood eosinophils/100 leukocytes 1 % 0-10 Automated blood basophils/100 leukocytes 2 % 0-10 Blood neutrophils automated count (number/volume) 31.7 10*3 1.8-7.8 Blood lymphocytes automated count (number/volume) 1.9 10*3 1.0-4.0 Blood monocytes automated count (number/volume) 2. 2 10*3 0.0-1.0 Automated eosinophil count 0.3 10*3/uL 0 .0-0.3 Automated blood basophil count (count/volume) 0.7 10*3/uL 0.0-0.1 Serum or plasma phosphate measurement (m ass/volume) - 10/14/19 05:55 Serum or plasma phosphate measurement (mass/volume) 2.4 mg/dL 2.3-4.7 Magnesium - 10/14/19 05:55 Magnesium 1.8 mg/dL 1.6-2.4 Comprehensive metabolic panel - 10/14/19 09:00 Serum or plasma sodium measurement (moles/volume) 147 mmol/L 135-145 Serum or plasma potassium measurement (moles/volume) 3.3 mmol/L 3.6-5.0 Serum or plasma chloride measurement (moles/volume) 119 mmol/L 98-107 Carbon dioxide 19 mmol/L 21-32 Serum or plasma anion gap determination (moles/volume) 9 mmol/L 5-14 Serum or plasma urea nitrogen measurement (mass/volume ) 19 mg/dL 7-18 Serum or plasma creatinine measurement (mass/volume) 0.69 mg/dL 0.60-1.30 Serum or plasma urea nitrogen/creatinine mass ratio 28 NRG Serum or plasma creatinine measurement w ith calculation of estimated glomerular filtration rate > NRG Serum or plasma glucose measurement (mass/volume) 108 mg/dL 70-105 Serum or plasma calcium measurement (mass/volume) 7.2 mg/dL 8.5-10.1 Serum or plasma total bilirubin measurement (mass/volu me) 0.8 mg/dL 0.1-1.0 Serum or plasma alkaline phosphatase conchita surement (enzymatic activity/volume) 66 U/L 40-136 Serum or plasma aspartate aminotransfera se measurement (enzymatic activity/volume) 130 U/L 5-34 Serum or plasma alanine aminotransferase measurement (enzymatic activity/volume) 272 U/L 0-55 Serum or plasma protein measurement (mass/volume) 4.3 g/dL 6.4-8.2 Serum or plasma albumin measurement (mass/volume) 1.9 g/dL 3.2-4.5 CALCIUM CORRECTED 8.9 mg/dL 8.5-10.1 Vancomycin trough - 10/14/19 14:00 Vancomycin trough 11.9 ug/mL 10.0-20.0 Comprehensive metabolic panel - 10/15/19 04:30 Serum or plasma sodium measurement (moles/volume) 145 mmol/L 135-145 Serum or plasma potassium measurement (moles/volume) 3.3 mmol/L 3.6-5.0 Serum or plasma chloride measurement (moles/volume) 118 mmol/L 98-107 Carbon dioxide 19 mmol/L 21-32 Serum or plasma anion gap determination (moles/volume) 8 mmol/L 5-14 Serum or plasma urea nitrogen measurement (mass/volume ) 22 mg/dL 7-18 Serum or plasma creatinine measurement (mass/volume) 0.73 mg/dL 0.60-1.30 Serum or plasma urea nitrogen/creatinine mass ratio 30 NRG Serum or plasma creatinine measurement w ith calculation of estimated glomerular filtration rate > NRG Serum or plasma glucose measurement (mass/volume) 95 mg/dL 70-105 Serum or plasma calcium measurement (mass/volume) 7.3 mg/dL 8.5-10.1 Serum or plasma total bilirubin measurement (mass/volu me) 0.7 mg/dL 0.1-1.0 Serum or plasma alkaline phosphatase conchita surement (enzymatic activity/volume) 67 U/L 40-136 Serum or plasma aspartate aminotransfera se measurement (enzymatic activity/volume) 130 U/L 5-34 Serum or plasma alanine aminotransferase measurement (enzymatic activity/volume) 223 U/L 0-55 Serum or plasma protein measurement (mass/volume) 4.4 g/dL 6.4-8.2 Serum or plasma albumin measurement (mass/volume) 1.9 g/dL 3.2-4.5 CALCIUM CORRECTED 9.0 mg/dL 8.5-10.1 Complete blood count (CBC) with automate d white blood cell (WBC) differential - 10/15/19 04:30 Blood leukocytes automated count (number/volume) 28.3 10*3/uL 4.3-11.0 Blood erythrocytes automated count (number/volume) 2.45 10*6/uL 4.35-5.85 Venous blood hemoglobin measurement (mass/volume) 7.7 g/dL 13.3-17.7 Blood hematocrit (volume fraction) 22 % 40-54 Automated erythrocyte mean corpuscular volume 89 [ foz_us] 80-99 Automated erythrocyte mean corpuscular h emoglobin (mass per erythrocyte) 31 pg 25-34 Automated erythrocyte mean corpuscular h emoglobin concentration measurement (mass/volume) 35 g/dL 32-36 Automated erythrocyte distribution width ratio 14. 8 % 10.0- 14.5 Automated blood platelet count (count/volume) 36 1 0*3/uL 130-400 Automated blood platelet mean volume measurement 12.2 [foz_us] 7.4-10.4 Automated blood neutrophils/100 leukocytes 88 % 42-75 Automated blood lymphocytes/100 leukocytes 6 % 12-44 Blood monocytes/100 leukocytes 3 % 0-12 Automated blood eosinophils/100 leukocytes 1 % 0-10 Automated blood basophils/100 leukocytes 2 % 0-10 Blood neutrophils automated count (number/volume) 24.9 10*3 1.8-7.8 Blood lymphocytes automated count (number/volume) 1.6 10*3 1.0-4.0 Blood monocytes automated count (number/volume) 0. 9 10*3 0.0-1.0 Automated eosinophil count 0.2 10*3/uL 0 .0-0.3 Automated blood basophil count (count/volume) 0.8 10*3/uL 0.0-0.1 Serum or plasma phosphate measurement (m ass/volume) - 10/15/19 04:30 Serum or plasma phosphate measurement (mass/volume) 2.9 mg/dL 2.3-4.7 Magnesium - 10/15/19 04:30 Magnesium 1.8 mg/dL 1.6-2.4 Encounters ACCT No. Visit Date/Time Discharge Status Pt. Type Provider Facility Loc./Unit Complaint [id number] 05/09/2019 16:15:24 05/09/2019 23:59:5 9 CLS Outpatient [id number] 10/07/2019 21:00:00 09:03:00 DIS Inpatient ROMAIN LOFTON MD [facility] 4TH N/V, ILEVS [id number] 10/03/2019 16:17:00 10:53:00 DIS Outpatient ROMAIN LOFTON MD [facility] 4TH SBO [id number] 09/20/2019 11:48:00 14:10:00 DIS Outpatient ROMAIN LOFTON MD [facility] ENDO CHANGE IN BOWEL HABITS/REFLUX/DYSPHAGIA [id number] 09/18/2019 10:53:00 11:03:00 DIS Outpatient ROMAIN LOFTON MD [facility] PREOP COLONOSCOPY/EGD [id number] 04/25/2019 21:31:00 23:25:00 DIS Emergency ERIK DO, CB davila [facility] ER LEG PAIN,CONGESTED,SOB [id number] 01/31/2019 08:02:00 23:59:59 CLS Outpatient LINDA CRAWFORD MD [facility] RAD HEMOPTYSIS [id number] 12/07/2018 06:05:00 019 08:55:00 DIS Emergency MICA JACOBSON MD [facility] ER LEG CRAMPS [id number] 06/30/2018 20:17:00 019 00:14:00 DIS Emergency ERIK DO, CB davila [facility] ER SOA,FALL YESTERDAY,LEG PAIN [id number] 06/06/2017 09:53:00 018 23:59:59 CLS Outpatient LINDA CRAWFORD MD [facility] RAD BILATERAL PAIN [id number] 02/15/2017 10:43:00 017 14:05:00 DIS Outpatient ROMAIN LOFTON MD [facility] ENDO HX OF DIVERTICULITIS/LL Q PAIN [id number] 02/14/2017 05:40:00 017 11:15:00 DIS Outpatient ROMAIN LOFTON MD [facility] PREOP COLO [id number] 12/25/2016 21:00:00 017 12:05:00 DIS Inpatient BLAIR SOTO, RAZIA Pardo [facility] 4TH COLITIS, DIVERTICULITIS [id number] 04/06/2016 17:00:00 017 23:59:59 CLS Outpatient DARIO ENGLAND APRN [facility] RAD SHORTNESS OF BR EATH AT REST [id number] 03/31/2016 01:16:00 016 12:35:00 DIS Inpatient DIPESH BERNSTEIN DOI V [facility] 4TH SEPSIS,PNEUMONIA,HYPOXI A [id number] 02/18/2016 08:53:00 016 23:59:59 CLS Outpatient FIDENCIO PERSAUD [facility] QUICK CXR [id number] 01/10/2016 20:17:00 016 23:03:00 DIS Emergency AUDIE MORA [facility] ER SOA [id number] 07/09/2015 09:10:00 016 23:59:59 CLS Outpatient LINDA CRAWFORD MD [facility] RAD FOSAMAX USAGE [id number] 06/23/2015 13:21:00 016 23:59:59 CLS Outpatient LINDA CRAWFORD MD [facility] LAB HTN,OSTEPOROSIS [id number] 09/24/2014 08:36:00 015 12:05:00 DIS Emergency SRINATH KESSLER MD [facility] ER POSS MED REACTION [id number] 02/21/2014 13:09:00 014 23:59:59 CLS Outpatient JAMARCUS POWELL DO [facility] RT ASTHMA,DYSPNEA [id number] 01/28/2014 07:20:00 014 23:59:59 CLS Outpatient LINDA CRAWFORD MD [facility] RAD DIPLOPIA WORD FINDING H A SPEECH [id number] 11/13/2013 11:38:00 014 23:59:59 CLS Outpatient LINDA CRAWFORD MD [facility] RAD HEADACHE,DOUBLE VISION [id number] 08/21/2013 14:54:00 014 17:12:00 DIS Emergency MONET SOTO, LC Ramon [facility] ER ALLERGIC REACTI ON [id number] 10/16/2019 09:05:[address] Inpatient FATOU SOTO, TITA Dav[facility] [address] [id number] 02/21/2014 13:09:00 Document Registration [id number] 02/21/2014 13:09:00 Document Registration [id number] 01/13/2012 08:25:00 Document Registration [id number] 01/09/2012 08:48:00 Document Registration [id number] 01/06/2012 08:39:00 Document Registration [id number] 11/18/2011 12:23:00 Document Registration [id number] 10/06/2010 07:54:00 Document Registration [id number] 09/09/2010 05:41:00 Document Registration [id number] 09/07/2010 07:36:00 Document Registration [id number] 06/01/2010 07:14:00 Document Registration [id number] 05/18/2010 12:53:00 Document Registration [id number] 05/07/2010 13:33:00 Document Registration [id number] 05/05/2010 08:19:00 Document Registration [id number] 04/20/2010 11:28:00 Document Registration [id number] 04/12/2010 09:55:00 Document Registration [id number] 03/22/2010 10:00:00 Document Registration [id number] 03/09/2010 14:24:00 Document Registration [id number] 11/12/2009 15:30:00 Document Registration [id number] 10/08/2009 22:25:00 Document Registration
--- NOTE | 2019-10-16 09:43 | NUR ---
Admission Drug Regimen Review Completed: Date: 10/16/19 Time: 943 Physician Notified: TITA CARPENTER MD Date: 10/16/19 Time: 920 Issue Identified; Action Plan to Resolve and Any Action Taken: Melatonin previously ordered and had been receiving on prior acute account. This medication did not carry over to the swing bed account using the restorable function. Contacted Dr. Carpenter et she wants this to continue. Melatonin 10mg PO QHS ordered on this account. No further issues identified.
--- NOTE | 2019-10-16 10:12 | Occupational Therapy Eval ---
OT Evaluation-General/PLF Medical Diagnosis Admission Date Oct 16, 2019 at 09:05 Medical Diagnosis: small bowel obstruction Onset Date: Oct 11, 2019 Therapy Diagnosis Therapy Diagnosis: decreased ADL status Height/Weight Height (Feet): 6 Height (Inches): 1.00 Weight (Pounds): 170 Weight (Ounces): 0.0 Referral Physician: Jayden Referral Reason: Evaluation/Treatment Medical History Pertinent Medical History: Diverticulitis, GERD, HTN, Rheumatoid Arthritis Current History abdominal distential 7/2, small bowel obstruction with chronic edema; MARIE and long segment small bowel resection complete Social History Home: Single Level Current Living Status: Spouse ADL-Prior Level of Function SCALE: Activities may be completed with or without assistive devices. 4-Vidyqirxvy-zvwlzji completes the activity by him/herself with no assistance from a helper. 5-Set-up or Clean-up Assistance-helper sets up or cleans up; patient completes activity. Lincoln assists only prior to or following the activity. 4-Supervision or Touching Assistance-helper provides verbal cues and/or touching/steadying and/or contact guard assistance as patient completes activity. Assistance may be provided throughout the activity or intermittently. 3-Partial/Moderate Assistance-helper does LESS THAN HALF the effort. Lincoln lifts, holds or supports trunk or limbs, but provides less than half the effort. 2-Substantial/Maximal Assistance-helper does MORE THAN HALF the effort. Lincoln lifts or holds trunk or limbs and provides more than half the effort. 8-Udpwibhqz-jfwmbx does ALL the effort. Patient does none of the effort to complete the activity. Or, the assistance of 2 or more helpers is required for the patient to complete the activity. If activity was not attempted, code reason: 7-Patient Refused. 9-Not Applicable-not attempted and the patient did not perform the activity bef ore the current illness, exacerbation or injury. 10-Not Attempted due to Environmental Limitations-(lack of equipment, weather r estraints, etc.). 88-Not Attempted due to Medical Conditions or Safety Concerns. ADL PLOF Comments Pt kept eyes closed and would not respond to questions throughout tx. Based on chart review and previous OT evaluation while pt was admitted acutely, pt was independent with I/ADLs at prior level. He has a tub/shower with a bath chair. Self Care: Independent Functional Cognition: Needed Some Help DME/Equipment: Bath Chair, Tub OT Current Status Subjective Pt laying in bed, eyes closed, telesitter present. OT introduced self and informed pt this worker would like to assist pt in getting cleaned up. Pt closed his eyes again and did not respond to OT. Pt did not make effort to participate in OT tx on this date, keeping his eyes closed throughout the session, responding minimally to OT,. At one point pt looked OT in the eye, showed her his middle finger, then closed his eyes again. (confusion vs behavior?) Mental Status/Objective Attachments: Drains Current Glasses/Contacts: No Upper Extremity ROM Pt refused to participate in UE screen. Based on previous txs, pt's ROM is WFL Upper Extremity Coordination Pt refused to participate in UE screen. Based on previous txs, pt's coordination is WFL Upper Extremity Sensation Pt refused to participate in UE screen. Based on previous txs, pt's sensation is WFL Upper Extremity Strength Pt refused to participate in UE screen. Based on previous txs, pt's strength is WFL ADL-Treatment Eating (QC): 6 (based on clinical judgement, pt is independent with feeding) Oral Hygiene (QC): 1 (Pt given oral swab into left hand and instructed to brush his teeth. Pt did not move, keeping eyes closed. OT assisted pt with initiating moving his arm to his mouth, he was then able to complete task. ) Shower/Bathe Self (QC): 1 (OT handed pt warm wet wipe, asking pt to wash his arm, pt did not initiate task. OT then asked pt again to wash his arms, he states "I did". OT then dependently completed sponge bath at bed level) Upper Body Dressing (QC): 7 (Pt refused to don/doff gown.) Lower Body Dressing (QC): 1 (Pt did not participate in changing his brief. When asked to roll side to side, pt continued to lay on his back with one leg crossed over the other knee.) On/Off Footwear (QC): 7 (Pt refused donning/doffing socks.) Toileting Hygiene (QC): 1 (Pt did not participate in changing his brief after BM. OT dependently changed brief and completed hygiene.) Other Treatments Pt laying in bed with eyes closed. Pt opened eyes in response to name, OT introduced self to pt and informed him of plan for tx on this date. Pt then closed his eyes and did not respond to OT. OT gathered ADL supplies, handing pt an oral swab to clean his mouth. Pt again closed his eyes and did not respond to OT. OT again asked pt to brush his teeth, guiding his arm towards his mouth, pt then proceeded to complete oral hygiene. OT handed pt warm wet wipe in his right hand, instructing him to wash his arms. Pt moved his hands towards each other but did not make any "washing" motions. OT asked pt again to wash his arms, providing tactile cues, pt replied "I did". OT then dependently washed pt's arm s, asking him to lift his arms up in order to get his underarms. Pt moved his left hand up towards OT and proceeded to show this worker his middle finger. Pt then put his arms back down to his side. OT lifted his arms up in order to continue sponge bath. OT handed pt washcloth and asked him to wash periarea. Pt did not respond to therapist and did not move. OT continued to dependently complete sponge bath. OT noticed soiled brief, asking pt to roll to his side in order to doff brief. Pt crossed his right leg over to his left knee and continued to lay in bed with his eyes closed, not responding verbally to OT. OT asked pt to put his leg down, pt did not complete movement, OT moved his right leg onto the bed, then again asked pt to roll to his side. He opened his eyes, then closed them. OT dependently doffed brief while pt made no effort to assist. OT then assisted pt with washing buttocks and periarea. OT donned clean brief onto pt, asking him to roll to his side, pt did not make any effort to assist with donning brief, remaining supine. OT dependently rolled pt towards his left side to place brief under him, then dependently rolled him to the right to don brief. Pt refused to don gown or socks. Post OT tx, pt laying in bed, call light in reach, all needs met and bed alarm on. Education OT Patient Education: Correct positioning, Modified ADL techniques, Progress toward Goal/Update tx plan, Purpose of tx/functional activities Teaching Recipient: Patient Teaching Methods: Discussion Response to Teaching: Reinforcement Needed OT Fpc Goals Fpc Goals Time Frame: Nov 01, 2019 Eating (QC): 6 Oral Hygiene (QC): 6 Toileting Hygiene (QC): 6 Shower/Bathe Self (QC): 6 Upper Body Dressing (QC): 6 Lower Body Dressing (QC): 6 On/Off Footwear (QC): 6 1=Demonstrate adherence to instructed precautions during ADL tasks. 2=Patient will verbalize/demonstrate understanding of assistive devices/modifications for ADL. 3=Patient will improve strength/tolerance for activity to enable patient to perform ADL's. OT Education/Plan Problem List/Assessment Assessment: Decreased Activ Tolerance, Impaired Bed Mobility, Impaired I ADL's, Impaired Self-Care Skills Pt would benefit from skilled OT services in order to increase pt's independence to return home safely. Discharge Recommendations Plan/Recommendations: Continue POC Barriers to Progress Pt has decreased motivation to participate in txs. When OT encourages pt to participate, he proceeds to close his eyes and not respond. (confusion vs behavior?) Treatment Plan/Plan of Care Patient would benefit from OT for education, treatment and training to promote independence in ADL's, mobility, safety and/or upper extremity function for ADL's. Plan of Care: ADL Retraining, Functional Mobility, UE Funct Exercise/Act Treatment Duration: Nov 01, 2019 Frequency: 5 times per week Estimated Hrs Per Day: .25 hour per day Rehab Potential: Fair Time/GCodes Start Time: 09:38 Stop Time: 09:55 Total Time Billed (hr/min): 17 Billed Treatment Time 1, INES WATTS OT Oct 16, 2019 10:11
[2019-10-16] MEDS: DRONABINOL 2.5 MG (MARINOL) CAP PO SCH ×2 (11:16→16:59)
[2019-10-16] MEDS: CEFEPIME INJECTION 1,000 MG in WATER (STERILE) FOR INJECTION 10 ML IV SCH ×2 (12:29→17:08)
--- NOTE | 2019-10-16 14:00 | NUR ---
Pastoral care visit.
[2019-10-16] MEDS: METOCLOPRAMIDE INJ 10 MG/2 ML (REGLAN) IV SCH ×3 (14:22→20:34)
[2019-10-16] MEDS: metroNIDAZOLE 500MG/100ML IVPB 100 ML IV SCH ×2 (14:23→22:33)
[2019-10-16] MEDS: VANCOMYCIN INJECTION 1,250 MG in NS (IVPB) 250 ML IV SCH (14:25)
[2019-10-16] MEDS: RT-ALBUTEROL/IPRATROPIUM 3 ML (DUONEB) VIAL INH SCH ×2 (14:59→20:42)
--- NOTE | 2019-10-16 15:37 | Physical Therapy Evaluation ---
PT Evaluation-General Medical Diagnosis Admission Date Oct 16, 2019 at 09:05 Medical Diagnosis: small bowel obstruction Onset Date: Oct 11, 2019 Therapy Diagnosis Therapy Diagnosis: impaired mobility, strength, endurance Height/Weight Height (Feet): 6 Height (Inches): 1.00 Weight (Pounds): 170 Weight (Ounces): 0.0 Referral Physician: Jayden Reason for Referral: Evaluation/Treatment Medical History Pertinent Medical History: Diverticulitis, GERD, HTN, Rheumatoid Arthritis Additional Medical History anxiety, PTSD Reviewed History: Yes Social History Home: Single Level Current Living Status: Spouse Prior Prior Level of Function SCALE: Activities may be completed with or without assistive devices. 3-Yqxjipmjgv-humwade completes the activity by him/herself with no assistance from a helper. 5-Set-up or Clean-up Assistance-helper sets up or cleans up; patient completes activity. Norman assists only prior to or following the activity. 4-Supervision or Touching Assistance-helper provides verbal cues and/or touching/steadying and/or contact guard assistance as patient completes activity. Assistance may be provided throughout the activity or intermittently. 3-Partial/Moderate Assistance-helper does LESS THAN HALF the effort. Norman lifts, holds or supports trunk or limbs, but provides less than half the effort. 2-Substantial/Maximal Assistance-helper does MORE THAN HALF the effort. Norman lifts or holds trunk or limbs and provides more than half the effort. 6-Bbdslcgcm-htzzsn does ALL the effort. Patient does none of the effort to complete the activity. Or, the assistance of 2 or more helpers is required for the patient to complete the activity. If activity was not attempted, code reason: 7-Patient Refused. 9-Not Applicable-not attempted and the patient did not perform the activity before the current illness, exacerbation or injury. 10-Not Attempted due to Environmental Limitations-(lack of equipment, weather restraints, etc.). 88-Not Attempted due to Medical Conditions or Safety Concerns. Bed Mobility: 6 Transfers (B,C,W/C): 6 Gait: 6 Indoor Mobility (Ambulation): Independent PT Evaluation-Current Subjective Patient in bed pre tx, reluctantly agrees to PT, has no complaints of pain. P atient seems confused, has unintelligible speech, has trouble following directions, gets agitated. Pt/Family Goals none stated Objective Patient Orientation: Person, Confused, Unable to Assess Attachments: Drains, Garzon Catheter, IV wound vac ROM/Strength ROM Lower Extremities WNL Strength Lower Extremities patient will not follow directions for strength testing Sensory Hearing: Functional Transfers Roll Left to Right (QC): 3 Sit to Lying (QC): 3 Lying to Sitting/Side of Bed(Q: 3 Sit to Stand (QC): 3 Chair/Yes-pe-Rtrro Xfer(QC): 4 Toilet Transfer (QC): 88 Car Transfer (QC): 88 Patient needs mod assist for supine <-> sit, min assist with sit to stand, transfers CGA. Patient gets confused easily with directions and gets agitated. After ambulating patient needs to be cleaned due to BM, total assist. Gait Does the Patient Walk?: Yes Mode of Locomotion: Walk Anticipated Mode of Locomotion: Walk Walk 10 feet (QC): 4 Walk 50 ft with 2 Turns(QC): 4 Walk 150 ft (QC): 88 Walking 10ft/uneven surface-QC: 88 Distance: 100' Gait Assistive Device: FWW Comments/Gait Description Patient fatigued after ambulation but not SOB, gets agitated with directions, unitelligible speech. Wheelchair Training Wheel 50 ft with 2 turns (QC): 9 Wheel 150 ft (QC): 9 Stairs 1 Step (curb) (QC): 88 4 Steps (QC): 88 12 Steps (QC): 88 Balance Sitting Static: Normal Sitting Dynamic: Normal Standing Static: Fair Standing Dynamic: Fair Picking up an Object (QC): 88 Assessment/Needs Patient has impaired mobility, strength, endurance. Patient is incontinent. He gets confused and agitated with directions. Patient in bed post tx with nurse call, phone, tray, bed alarm on, in room. Rehab Potential: Fair PT Prison Goals Prison Goals PT Electrician Helper Goals Time Frame: Oct 23, 2019 Roll Left & Right (QC): 4 Sit to Lying (QC): 4 Lying-Sitting on Side/Bed(QC): 4 Sit to Stand (QC): 4 Chair/Yec-nh-Utqox Xfer(QC): 4 Toilet Transfer (QC): 88 Car Transfer (QC): 88 Does the Patient Walk: Yes Walk 10 feet (QC): 4 Walk 50ft with 2 Turns (QC): 4 Walk 150 ft (QC): 4 Walking 10ft on Uneven Surface: 88 1 Step (curb) (QC): 88 4 Steps (QC): 88 12 Steps (QC): 88 Picking up an Object (QC): 88 Wheel 50 feet with 2 turns (QC: 9 Wheel 150 feet: 9 PT Plan Problem List Problem List: Activity Tolerance, Functional Strength, Safety, Balance, Gait, Transfer, Bed Mobility, ROM Treatment/Plan Treatment Plan: Continue Plan of Care Treatment Plan: Bed Mobility, Education, Functional Activity [place], Functional Strength, Gait, Safety, Therapeutic Exercise, Transfers Treatment Duration: Oct 23, 2019 Frequency: 6 times per week Estimated Hrs Per Day: .25 hour per day Patient and/or Family Agrees t: Yes Safety Risks/Education Patient Education: Gait Training, Transfer Techniques, Correct Positioning, Safety Issues Teaching Recipient: Patient Teaching Methods: Demonstration, Discussion Response to Teaching: Reinforcement Needed Discharge Recommendations Plan Patient will perform bed mobility and transfer training, balance and endurance training, functional strengthening, stair training, gait training, and education, to improve functional mobility and independence at home. Therapy Discharge Recommendati: Other, See Comments (NH) Time/GCodes Time In: 1505 Time Out: 1535 Total Billed Treatment Time: 30 Total Billed Treatment 1 visit JUNITO 15' GT 15' ANNEMARIE CROFT PT Oct 16, 2019 15:37
[2019-10-16 17:20] VITALS: BP 121/51
--- NOTE | 2019-10-16 18:15 | NUR ---
Patient refused to eat or be assisted with meals throughout the day. Spouse brought patient many of his favorite foods from home and he did snack on a banana, apple pie, and some cake. Staff offered alternatives and encouraged patient to drink Ensure shakes but patient continues to refuse.
[2019-10-16] MEDS: D5 NS W/KCL 20 MEQ/L 1,000 ML IV SCH ×2 (19:15→20:34)
[2019-10-16] MEDS: MELATONIN 3 MG TABLET PO SCH (20:35)
[2019-10-16] MEDS: oxyCODONE/APAP 7.5-325 MG (PERCOCET 7.5) TABLET PO PRN (20:35)
[2019-10-17] MEDS: RT-ALBUTEROL/IPRATROPIUM 3 ML (DUONEB) VIAL INH SCH ×4 (02:05→21:44)
[2019-10-17] MEDS: CEFEPIME INJECTION 1,000 MG in WATER (STERILE) FOR INJECTION 10 ML IV SCH ×4 (02:10→17:28)
[2019-10-17] MEDS: VANCOMYCIN INJECTION 1,250 MG in NS (IVPB) 250 ML IV SCH ×2 (02:11→15:47)
[2019-10-17 05:20] VITALS: BP 143/84
[2019-10-17 05:52] LABS: HEMOGLOBIN 7.7 G/DL (13.3-17.7); MEAN PLATELET VOLUME 11.1 FL (7.4-10.4); RED CELL DISTRIBUTION WIDTH 14.9 % (10.0-14.5); WHITE BLOOD COUNT 7.8 10^3/uL (4.3-11.0)
[2019-10-17] MEDS: D5 NS W/KCL 20 MEQ/L 1,000 ML IV SCH ×3 (06:12→12:13)
[2019-10-17 06:14] LABS: ALANINE AMINOTRANSFERASE 147 U/L (0-55); ALBUMIN 1.7 GM/DL (3.2-4.5); ALKALINE PHOSPHATASE 62 U/L (40-136); BILIRUBIN,TOTAL 0.6 MG/DL (0.1-1.0); BUN/CREATININE RATIO 30; CALCIUM 7.5 MG/DL (8.5-10.1); CARBON DIOXIDE 18 MMOL/L (21-32); CHLORIDE 125 MMOL/L (98-107); CREATININE SERUM 0.71 MG/DL (0.60-1.30); GFR ESTIMATED > 60; GLUCOSE 101 MG/DL (70-105); POTASSIUM 3.5 MMOL/L (3.6-5.0); SODIUM 149 MMOL/L (135-145); TOTAL PROTEIN 4.5 GM/DL (6.4-8.2)
[2019-10-17] MEDS: metroNIDAZOLE 500MG/100ML IVPB 100 ML IV SCH ×3 (06:29→21:41)
--- NOTE | 2019-10-17 07:50 | Progress Note ---
Subjective Subjective Date Seen by Provider: Oct 17, 2019 Time Seen by Provider: 06:55 Pt awake and alert, but still has some confusion. Nursing staff reports pt had poor night of sleep having bad dreams it appeared. He was sliding down in the bed throughout the night as well. Pt reports having back pain likely related to poor positions in bed. Nursing staff reported pt not willing to eat anything for dinner, but he ate a few of the cookies and snack his had brought. When asked about eating the pt reports being hungry and wanting to eat. He reports eating all types of food at home, but seems confused stating they are not bringing him food in the hospital. Pt was encouraged to eat the food he is brought today and to try to work on getting to the chair to eat today as well as help his back a little. He reports not liking the Ensure milk shake, but he states he likes milk and fruits stating he would eat some strawberries. He denies any other pain, but was tender on bilateral flanks still. He denies any dizziness, headaches, and sore throat, but does say he has cough with some sputum coming up. Denies any shortness of breath or chest pain. He reports that the light in the room has been bothering his eyes. making them hurt, and when asked if this happens at home he denied any history at home. Review of Systems General: No Chills; Appetite (Reports normal, but not eating) HEENT: No Head Aches, No Visual Changes, No Dysphasia, No Sore Throat Pulmonary: No Dyspnea; Cough Cardiovascular: No: Chest Pain, Palpitations, Edema Gastrointestinal: Abdominal Pain (Incisional, bilateral flanks); No: Nausea, Vomiting, Diarrhea, Constipation Genitourinary: No Other (Garzon Catheter) Musculoskeletal: back pain; No: neck pain, leg pain Neurological: Weakness, Confusion; No: Numbness Objective Exam Vital Signs Vital Signs - First Documented 10/16/19 10/16/19 15:01 17:20 Temp 37.4 Pulse 67 Resp 18 B/P (MAP) 121/51 (74) Pulse Ox 89 O2 Delivery Room Air O2 Flow Rate 2.00 Capillary Refill : Less Than 3 Seconds General Appearance: No Apparent Distress HEENT: PERRL/EOMI Neck: Full Range of Motion Respiratory: Chest Non Tender, Lungs Clear, Decreased Breath Sounds Cardiovascular: Regular Rate, Rhythm, Normal Peripheral Pulses Gastrointestinal: Normal Bowel Sounds, Tenderness (Bilateral flanks) Extremity: Normal Capillary Refill, Normal Inspection, Non Tender, No Calf Tenderness, No Pedal Edema Neurologic/Psychiatric: Alert, Disoriented (Confusion worsens intermittently ) Skin: Normal Color, Warm/Dry Results Lab Laboratory Tests 10/17/19 05:30: White Blood Count 7.8, Red Blood Count 2.68L, Hemoglobin 7.7L, Hematocrit 24L, Mean Corpuscular Volume 89, Mean Corpuscular Hemoglobin 29, Mean Corpuscular Hemoglobin Concent 32, Red Cell Distribution Width 14.9H, Platelet Count 72L, Mean Platelet Volume 11.1H, Sodium Level 149H, Potassium Level 3.5L, Chloride Level 125H, Carbon Dioxide Level 18L, Anion Gap 6, Blood Urea Nitrogen 21H, Creatinine 0.71, Estimat Glomerular Filtration Rate > 60, BUN/Creatinine Ratio 30, Glucose Level 101, Calcium Level 7.5L, Corrected Calcium 9.3, Total Bilirubin 0.6, Aspartate Amino Transf (AST/SGOT) 122H, Alanine Aminotransferase (ALT/SGPT) 147H, Alkaline Phosphatase 62, Total Protein 4.5L, Albumin 1.7L Assessment/Plan Assessment/Plan Assessment and Plan SMALL BOWEL OBSTRUCTION -CONTINUE NORMAL DIET, ENCOURAGE PT TO EAT, MONITOR BOWEL MOVEMENTS -IV FLUIDS -CONSULT DR LOFTON -S/P OPEN RESECTION -[address]- MONITOR OUTPUT, CONSIDER REMOVAL IF DECREASING FLUID DRAIN TREND CONTINUES HYPOTENSION -CONTINUE IV FLUIDS -IMPROVED -MONITOR SEPSIS/ LEUKOCYTOSIS -CONTINUE VANCOMYCIN, CEFEPIME, ANIDULAFUNGIN, IV FLUIDS -ABDOMINAL INCISION CULTURED, -PRELIMINARY E. COLI, KLEBSIELLA, AND ENTEROCOCCUS CULTURES -MIDLINE INCISION WOUND VAC- MONITOR OUTPUT -LEUKOCYTOSIS IMPROVED TO 7.8 TODAY -MONITOR PULMONARY EFFUSION / POSSIBLE PNEUMONIA -CONTINUE TO MONITOR, ENCOURAGE DEEP BREATHES, SPIROMETER AND OSCILLATORY PEP USAGE -CONSIDER LASIX 20MG BOLUS -CONSIDER REPEAT CXR TO ASSES THROMBOCYTOPENIA -IMPROVING -POSSIBLY DUE TO HEPARIN INDUCED THROMBOCYTOPENIA -STOPPED HEPARIN ON 10/11, PLATELETS IMPROVING -CONSIDER STARTING ARGATROBAN TO PREVENT THROMBOSIS/ DVT PROPHYLAXIS -MONITOR FOR BLEEDING -MONITOR PLATELETS-INCREASED TO 76 TODAY FROM 58 YESTERDAY ANEMIA -HGB REMAINS LOW BUT STABLE IN 7-8 RANGE -MONITOR HGB/HCT - IRON STUDIES PERFORMED YESTERDAY -LOW SERUM IRON 22, LOW TIBC 131, ELEVATED FERRITIN 2591.8 -POSSIBLY DUE TO INFECTION, ACUTE PHASE REACTION, IRON DEFICIENCY -CONSIDER IRON SUPPLEMENTATION HYPOCALCEMIA -IMPROVING -MONITOR ORAL INTAKE ELEVATED LIVER ENZYMES -IMPROVING -MONITOR ACUTE KIDNEY INJURY -IV FLUIDS MONITOR BUN/CR AND ELECTROLYTES -IMPROVING ELEVATED LIPASE -IMPROVED GASTROPARESIS HIATAL HERNIA Clinical Quality Measures DVT/VTE Risk/Contraindication: Risk Factor Score Per Nursin Supervisory-Addendum Brief Verification & Attestation Participated in pt care: history, MDM, physical Personally performed: exam, history, MDM, supervision of care Care discussed with: Medical Student Procedures: n/a Results interpretation: Verified all documentation SMALL BOWEL OBSTRUCTION HYPOTENSION SEPSIS/ LEUKOCYTOSIS PULMONARY EFFUSION / POSSIBLE PNEUMONIA THROMBOCYTOPENIA ANEMIA HYPOCALCEMIA ELEVATED LIVER ENZYMES ACUTE KIDNEY INJURY ELEVATED LIPASE GASTROPARESIS HIATAL HERNIA SMALL BOWEL OBSTRUCTION - DR. LOFTON MANAGING PT STATUS POST PARTIAL SMALL BOWEL RESECTION - PT IS ON SWING BED STATUS AND HAS NEED FOR CONTINUED IV ANTIBIOTICS DUE TO WOUND INFECTION AND EXTENSIVE ILLNESS. HYPOTENSION - RESOLVED ON FLUIDS AND WITH IMPROVEMENT IN HIS SHOCK SEPSIS/ LEUKOCYTOSIS -CONTINUE VANCOMYCIN, CEFEPIME, ANIDULAFUNGIN, IV FLUIDS -ABDOMINAL INCISION CULTURED, -PRELIMINARY E. COLI, KLEBSIELLA, AND ENTEROCOCCUS CULTURES -MIDLINE INCISION WOUND VAC HAS BEEN PLACED, WHITE COUNT IMPROVING PULMONARY EFFUSION / POSSIBLE PNEUMONIA - REPEAT CXR INTERMITTENTLY - ENCOURAGE IS THROMBOCYTOPENIA -IMPROVING -POSSIBLY DUE TO HEPARIN INDUCED THROMBOCYTOPENIA -STOPPED HEPARIN ON 10/11, PLATELETS IMPROVING - WILL HOLD OFF ON ANTICOAGULATION AT THIS TIME DUE TO HIS PERSISTENT LOWER ABDOMEN OOZING OF BLOOD AND HIS LOW PLATELETS. ANEMIA -HGB PERSISTENTLY LOW - WILL TRANSFUSE IF DROPS FURTHER, CONSIDER IV IRON ELEVATED LIVER ENZYMES -IMPROVING WILL CONTINUE TO MONITOR HIS INTAKE CHANGES ACUTE KIDNEY INJURY -IV FLUIDS MONITOR BUN/CR AND ELECTROLYTES GASTROPARESIS ON REGLAN DECREASED APPETITE - PT ON MARINOL HIATAL HERNIA NILSA AGUIRRE Oct 17, 2019 07:50 TITA LAINEZ MD Oct 18, 2019 14:20
[2019-10-17 09:21] VITALS: BP 143/84
[2019-10-17] MEDS: METOCLOPRAMIDE INJ 10 MG/2 ML (REGLAN) IV SCH ×4 (09:21→21:41)
[2019-10-17] MEDS: PANTOPRAZOLE 40 MG (PROTONIX) VIAL IV SCH (09:21)
[2019-10-17] MEDS: ANIDULAFUNGIN INJECTION 100 MG in NS (IVPB) 100 ML IV SCH (09:22)
--- NOTE | 2019-10-17 09:49 | Physical Therapy Daily Note ---
PT Daily Note-Current Subjective Patient in bed pre tx, agrees reluctantly to PT, says he has pain in his abdomen. Appearance Patient in recliner post tx with nurse call, phone, tray, legs elevated, chair alarm on, telesitter in room. Mental Status Patient Orientation: Person, Unable to Assess, [place] Attachments: Garzon Catheter, IV wound vac Transfers SCALE: Activities may be completed with or without assistive devices. 0-Dkyiusncry-ltnknxq completes the activity by him/herself with no assistance from a helper. 5-Set-up or Clean-up Assistance-helper sets up or cleans up; patient completes activity. [place] assists only prior to or following the activity. 4-Supervision or Touching Assistance-helper provides verbal cues and/or touching/steadying and/or contact guard assistance as patient completes activity. Assistance may be provided throughout the activity or intermittently. 3-Partial/Moderate Assistance-helper does LESS THAN HALF the effort. [place] lifts, holds or supports trunk or limbs, but provides less than half the effort. 2-Substantial/Maximal Assistance-helper does MORE THAN HALF the effort. [place] lifts or holds trunk or limbs and provides more than half the effort. 1-Etzwsruco-wuwrua does ALL the effort. Patient does none of the effort to complete the activity. Or, the assistance of 2 or more helpers is required for the patient to complete the activity. If activity was not attempted, code reason: 7-Patient Refused. 9-Not Applicable-not attempted and the patient did not perform the activity before the current illness, exacerbation or injury. 10-Not Attempted due to Environmental Limitations-(lack of equipment, weather restraints, etc.). 88-Not Attempted due to Medical Conditions or Safety Concerns. Roll Left & Right (QC): 2 Lying to Sitting/Side of Bed(Q: 3 Sit to Stand (QC): 3 Chair/Wfe-cv-Gnxhq Xfer(QC): 3 Patient needs dressed, he is naked with a cover on. Gait Training Distance: 20' Walk 10 feet (QC): 3 Gait Persons Needed: 2 Gait Assistive Device: FWW Treatments bed mobility and transfers, ambulation Assessment Current Status: Poor Progress Patient is aggressive and agitated during treatment. After standing to ambulate he cursed the whole time, pushing the walker out of the way (while he is actively losing his balance), he follows directions poorly. He seems on the verge of being combative. PT Green Building Materials Designer Goals Senior Care Goals PT Green Building Materials Designer Goals Time Frame: Oct 23, 2019 Roll Left & Right (QC): 4 Sit to Lying (QC): 4 Lying-Sitting on Side/Bed(QC): 4 Sit to Stand (QC): 4 Chair/Fru-jn-Sfbxl Xfer(QC): 4 Toilet Transfer (QC): 88 Car Transfer (QC): 88 Does the Patient Walk: Yes Walk 10 feet (QC): 4 Walk 50ft with 2 Turns (QC): 4 Walk 150 ft (QC): 4 Walking 10ft on Uneven Surface: 88 1 Step (curb) (QC): 88 4 Steps (QC): 88 12 Steps (QC): 88 Picking up an Object (QC): 88 Wheel 50 feet with 2 turns (QC: 9 Wheel 150 feet: 9 PT Plan Problem List Problem List: Activity Tolerance, Functional Strength, Safety, Balance, Gait, Transfer, Bed Mobility, ROM Treatment/Plan Treatment Plan: Continue Plan of Care Treatment Plan: Bed Mobility, Education, Functional Activity [place], Functional Strength, Gait, Safety, Therapeutic Exercise, Transfers Treatment Duration: Oct 23, 2019 Frequency: 6 times per week Estimated Hrs Per Day: .25 hour per day Patient and/or Family Agrees t: Yes Safety Risks/Education Patient Education: Gait Training, Transfer Techniques, Correct Positioning, Safety Issues Teaching Recipient: Patient Teaching Methods: Demonstration, Discussion Response to Teaching: Reinforcement Needed Time/GCodes Time In: 917 Time Out: 0940 Total Billed Treatment Time: 22 Total Billed Treatment 1 visit FA 22' ANNEMARIE CROFT PT Oct 17, 2019 09:49
--- NOTE | 2019-10-17 09:51 | Occupational Ther Daily Note ---
OT Current Status-Daily Note Subjective Pt alert, lying in bed. Pt noncommunicative throughout therapy. Pt reluctantly agrees to therapy. Nrsg and physician aware of pt's behaviors and reluctance to work with therapies. Mental Status/Objective Patient Orientation: Person, Place, Time, Situation Attachments: Drains (wound vac), Garzon Catheter, IV ADL-Treatment Pt requires hand over hand to thread B UE into sleeves. Dependent for donning/doffing socks. Pt unable to follow verbal directions at this time. 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 Min A for supine to EOB then CGA for sit to stand with bed elevated. Pt had LOB thoughout ambulation, unable to right self. Pt would push FWW away and shake head then would say where are we going. Pt requires assist x2 for ambulation due to safety and manipulation of tubing/IV pole. After therapy, pt sitting in recliner with call light/phone. All needs met in room. Therapy Code Descriptions/Definitions Functional [place] Measure: 0=Not Assessed/NA 4=Minimal Assistance 1=Total Assistance 5=Supervision or Setup 2=Maximal Assistance 6=Modified [place] 3=Moderate Assistance 7=Complete IndependenceSCALE: Activities may be completed with or without assistive devices. 9-Rdposdqhih-kcehfbx completes the activity by him/herself with no assistance from a helper. 5-Set-up or Clean-up Assistance-helper sets up or cleans up; patient completes activity. [place] assists only prior to or following the activity. 4-Supervision or Touching Assistance-helper provides verbal cues and/or touching/steadying and/or contact guard assistance as patient completes activity. Assistance may be provided throughout the activity or intermittently. 3-Partial/Moderate Assistance-helper does LESS THAN HALF the effort. [place] lifts, holds or supports trunk or limbs, but provides less than half the effort. 2-Substantial/Maximal Assistance-helper does MORE THAN HALF the effort. [place] lifts or holds trunk or limbs and provides more than half the effort. 8-Cvgquiejs-ilhija does ALL the effort. Patient does none of the effort to complete the activity. Or, the assistance of 2 or more helpers is required for the patient to complete the activity. If activity was not attempted, code reason: 7-Patient Refused. 9-Not Applicable-not attempted and the patient did not perform the activity before the current illness, exacerbation or injury. 10-Not Attempted due to Environmental Limitations-(lack of equipment, weather restraints, etc.). 88-Not Attempted due to Medical Conditions or Safety Concerns. OT [facility] Goals Junior Mechanical Engineer Goals Time Frame: Nov 01, 2019 Eating (QC): 6 Oral Hygiene (QC): 6 Toileting Hygiene (QC): 6 Shower/Bathe Self (QC): 6 Upper Body Dressing (QC): 6 Lower Body Dressing (QC): 6 On/Off Footwear (QC): 6 1=Demonstrate adherence to instructed precautions during ADL tasks. 2=Patient will verbalize/demonstrate understanding of assistive devices/modifications for ADL. 3=Patient will improve strength/tolerance for activity to enable patient to perform ADL's. OT Education/Plan Problem List/Assessment Assessment: Decreased Activ Tolerance, Decreased Safety Aware, Impaired Bed Mobility, Impaired Cognition, Impaired Coordination, Impaired Funct Balance, Impaired Self-Care Skills Pt would benefit from skilled OT services in order to increase pt's independence to return home safely. Discharge Recommendations Plan/Recommendations: Continue POC Treatment Plan/Plan of Care Patient would benefit from OT for education, treatment and training to promote independence in ADL's, mobility, safety and/or upper extremity function for ADL's. Plan of Care: ADL Retraining, Functional Mobility, UE Funct Exercise/Act Treatment Duration: Nov 01, 2019 Frequency: 5 times per week Estimated Hrs Per Day: .25 hour per day Rehab Potential: Fair Time/GCodes Start Time: 09:18 Stop Time: 09:40 Total Time Billed (hr/min): 22 Billed Treatment Time 1 visit-FA 1 (22 min) FATOUMATA DEL REAL Oct 17, 2019 09:51
--- NOTE | 2019-10-17 10:23 | NUR ---
Dr. Carpenter stopped by this a.m. et talked about the patient continuing to not have an appetite. She asked that I call and visit with his Colette to see about more food options. Colette plans on coming out to the hospital today around 11-11:30 and plans on bringing him watermelon, mars bar, and anything else she can think of that he might be interested in. We talked about the protein shakes having the nutrients that would be the best for him as he tries to regain his appetite. He currently continues to refuse the protein shakes at this time.
[2019-10-17] MEDS: DRONABINOL 2.5 MG (MARINOL) CAP PO SCH ×2 (11:49→16:26)
[2019-10-17] MEDS ORDERED: TROUGH ORDER-PHARMACY XX ONE (13:00)
[2019-10-17 17:09] VITALS: BP 138/73
[2019-10-17] MEDS: MELATONIN 3 MG TABLET PO SCH (21:40)
[2019-10-17] MEDS: oxyCODONE/APAP 7.5-325 MG (PERCOCET 7.5) TABLET PO PRN (21:41)
[2019-10-18] MEDS: CEFEPIME INJECTION 1,000 MG in WATER (STERILE) FOR INJECTION 10 ML IV SCH ×4 (00:03→16:57)
[2019-10-18] MEDS: D5 NS W/KCL 20 MEQ/L 1,000 ML IV SCH (02:50)
[2019-10-18] MEDS: VANCOMYCIN INJECTION 1,250 MG in NS (IVPB) 250 ML IV SCH ×2 (02:50→15:16)
[2019-10-18] MEDS: RT-ALBUTEROL/IPRATROPIUM 3 ML (DUONEB) VIAL INH SCH ×4 (03:00→20:41)
[2019-10-18 05:13] VITALS: BP 140/75
[2019-10-18 05:23] LABS: HEMOGLOBIN 7.4 G/DL (13.3-17.7); MEAN PLATELET VOLUME 10.9 FL (7.4-10.4); RED CELL DISTRIBUTION WIDTH 15.6 % (10.0-14.5); WHITE BLOOD COUNT 5.4 10^3/uL (4.3-11.0)
[2019-10-18 05:28] LABS: ALBUMIN 1.7 GM/DL (3.2-4.5)
[2019-10-18 05:29] LABS: CHLORIDE 125 MMOL/L (98-107); POTASSIUM 3.5 MMOL/L (3.6-5.0); SODIUM 150 MMOL/L (135-145)
[2019-10-18 05:30] LABS: CALCIUM 7.5 MG/DL (8.5-10.1)
[2019-10-18 05:31] LABS: GLUCOSE 97 MG/DL (70-105); TOTAL PROTEIN 4.5 GM/DL (6.4-8.2)
[2019-10-18 05:32] LABS: CARBON DIOXIDE 18 MMOL/L (21-32)
[2019-10-18 05:33] LABS: BILIRUBIN,TOTAL 0.6 MG/DL (0.1-1.0)
[2019-10-18 05:34] LABS: ALKALINE PHOSPHATASE 60 U/L (40-136)
[2019-10-18 05:35] LABS: CREATININE SERUM 0.72 MG/DL (0.60-1.30); GFR ESTIMATED > 60
[2019-10-18 05:36] LABS: BUN/CREATININE RATIO 29
[2019-10-18 05:38] LABS: ALANINE AMINOTRANSFERASE 118 U/L (0-55)
[2019-10-18] MEDS: metroNIDAZOLE 500MG/100ML IVPB 100 ML IV SCH ×3 (06:05→21:39)
--- NOTE | 2019-10-18 07:50 | Progress Note ---
Subjective Subjective Date Seen by Provider: Oct 18, 2019 Time Seen by Provider: 07:00 Pt resting,easily aroused, becomes alert, but drifts off if not consistently stimulated. He denies any issues initially reporting he feels better. He denies any headaches, fever, chills, or pain. He had increased tenderness across entire abdomen today, where it was mainly bilateral flank and midline incisional pain previously. OT/PT reports that he was very aggravated and did not follow instructions during therapy yesterday. OT/PT also report he had severe loss of balance when standing requiring 2 person max assist to transfer him to the chair yesterday. His brought some more snack food including some watermelon that the pt ate a small amount of food. Review of Systems General: No Chills; Appetite (Reports normal, but not eating) HEENT: No Head Aches, No Visual Changes, No Dysphasia, No Sore Throat Pulmonary: No Dyspnea; Cough Cardiovascular: No: Chest Pain, Palpitations, Edema Gastrointestinal: Abdominal Pain (Increased generalized abdominal); No: Nausea, Vomiting, Diarrhea, Constipation Genitourinary: No Other (Garzon Catheter) Musculoskeletal: back pain; No: neck pain, leg pain Neurological: Weakness, Confusion; No: Numbness Objective Exam Vital Signs Vital Signs - First Documented 10/16/19 10/16/19 10/17/19 15:01 17:20 09:21 Temp 37.4 Pulse 67 Resp 18 B/P (MAP) 121/51 (74) Pulse Ox 89 O2 Delivery Room Air O2 Flow Rate 2.00 FiO2 2 Capillary Refill : Less Than 3 Seconds General Appearance: No Apparent Distress HEENT: PERRL/EOMI Neck: Full Range of Motion Respiratory: Chest Non Tender, Lungs Clear, Decreased Breath Sounds Cardiovascular: Regular Rate, Rhythm, Normal Peripheral Pulses Gastrointestinal: Abnormal Bowel Sounds (Decreased x4 quadrants), Tenderness (Bilateral flanks) Extremity: Normal Capillary Refill, Normal Inspection, Non Tender, No Calf Tenderness, No Pedal Edema Neurologic/Psychiatric: Alert, Disoriented (Confusion worsens intermittently ) Skin: Normal Color, Warm/Dry Results Lab Laboratory Tests 10/17/19 13:34: Vancomycin Level Trough 16.3 10/18/19 05:00: White Blood Count 5.4, Red Blood Count 2.62L, Hemoglobin 7.4L, Hematocrit 23L, Mean Corpuscular Volume 89, Mean Corpuscular Hemoglobin 28, Mean Corpuscular Hemoglobin Concent 32, Red Cell Distribution Width 15.6H, Platelet Count 85L, Mean Platelet Volume 10.9H, Sodium Level 150H, Potassium Level 3.5L, Chloride Level 125H, Carbon Dioxide Level 18L, Anion Gap 7, Blood Urea Nitrogen 21H, Creatinine 0.72, Estimat Glomerular Filtration Rate > 60, BUN/Creatinine Ratio 29, Glucose Level 97, Calcium Level 7.5L, Corrected Calcium 9.3, Total Bilirubin 0.6, Aspartate Amino Transf (AST/SGOT) 106H, Alanine Aminotransferase (ALT/SGPT) 118H, Alkaline Phosphatase 60, Total Protein 4.5L, Albumin 1.7L Assessment/Plan Assessment/Plan Assessment and Plan SMALL BOWEL OBSTRUCTION -CONTINUE NORMAL DIET, ENCOURAGE PT TO EAT, MONITOR BOWEL MOVEMENTS -IV FLUIDS -CONSULT DR LOFTON -S/P OPEN RESECTION -[address] -INCREASING DRAINAGE OVER LAST COUPLE DAYS -CONSIDER ABDOMINAL X-RAY TO ASSES FOR FLUID COLLECTION HYPOTENSION -IMPROVED SEPSIS/ LEUKOCYTOSIS -LEUKOCYTOSIS IMPROVED TO 5.4 TODAY -CONTINUE VANCOMYCIN, CEFEPIME, ANIDULAFUNGIN, IV FLUIDS -ABDOMINAL INCISION CULTURED, -E. COLI, KLEBSIELLA, AND ENTEROCOCCUS CULTURES -MIDLINE INCISION WOUND VAC- MONITOR OUTPUT -MONITOR PULMONARY EFFUSION / POSSIBLE PNEUMONIA -CONTINUE TO MONITOR, ENCOURAGE DEEP BREATHES, SPIROMETER AND OSCILLATORY PEP USAGE -CONSIDER LASIX 20MG BOLUS -CONSIDER REPEAT CXR TO ASSES THROMBOCYTOPENIA -IMPROVING -POSSIBLY DUE TO HEPARIN INDUCED THROMBOCYTOPENIA -STOPPED HEPARIN ON 10/11, PLATELETS IMPROVING -CONSIDER STARTING ARGATROBAN TO PREVENT THROMBOSIS/ DVT PROPHYLAXIS -MONITOR FOR BLEEDING -MONITOR PLATELETS-INCREASED TO 85 TODAY FROM 72 YESTERDAY ANEMIA -HGB REMAINS LOW BUT STABLE IN 7-8 RANGE -MONITOR HGB/HCT - IRON STUDIES PERFORMED 10/15 -LOW SERUM IRON 22, LOW TIBC 131, ELEVATED FERRITIN 2591.8 -CONSIDER IRON SUPPLEMENTATION HYPOCALCEMIA -IMPROVING -MONITOR ORAL INTAKE ELEVATED LIVER ENZYMES -IMPROVING -MONITOR ACUTE KIDNEY INJURY -IV FLUIDS MONITOR BUN/CR AND ELECTROLYTES -IMPROVING ELEVATED LIPASE -IMPROVED GASTROPARESIS HIATAL HERNIA Clinical Quality Measures DVT/VTE Risk/Contraindication: Risk Factor Score Per Nursin Supervisory-Addendum Brief Verification & Attestation Participated in pt care: history, MDM, physical Personally performed: exam, history, MDM, supervision of care Care discussed with: Medical Student Procedures: n/a Results interpretation: Verified all documentation SMALL BOWEL OBSTRUCTION HYPOTENSION SEPSIS/ LEUKOCYTOSIS PULMONARY EFFUSION / POSSIBLE PNEUMONIA THROMBOCYTOPENIA ANEMIA HYPOCALCEMIA ELEVATED LIVER ENZYMES ACUTE KIDNEY INJURY ELEVATED LIPASE GASTROPARESIS HIATAL HERNIA SMALL BOWEL OBSTRUCTION - DR. LOFTON MANAGING PT STATUS POST PARTIAL SMALL BOWEL RESECTION - PT IS ON SWING BED STATUS AND HAS NEED FOR CONTINUED IV ANTIBIOTICS DUE TO WOUND INFECTION AND EXTENSIVE ILLNESS. HYPOTENSION - RESOLVED ON FLUIDS AND WITH IMPROVEMENT IN HIS SHOCK SEPSIS/ LEUKOCYTOSIS -CONTINUE VANCOMYCIN, CEFEPIME, ANIDULAFUNGIN, IV FLUIDS -ABDOMINAL INCISION CULTURED, -PRELIMINARY E. COLI, KLEBSIELLA, AND ENTEROCOCCUS CULTURES -MIDLINE INCISION WOUND VAC HAS BEEN PLACED, WHITE COUNT IMPROVING PULMONARY EFFUSION / POSSIBLE PNEUMONIA - REPEAT CXR INTERMITTENTLY - ENCOURAGE IS THROMBOCYTOPENIA -IMPROVING -POSSIBLY DUE TO HEPARIN INDUCED THROMBOCYTOPENIA -STOPPED HEPARIN ON 10/11, PLATELETS IMPROVING - WILL HOLD OFF ON ANTICOAGULATION AT THIS TIME DUE TO HIS PERSISTENT LOWER ABDOMEN OOZING OF BLOOD AND HIS LOW PLATELETS. ANEMIA -HGB PERSISTENTLY LOW - WILL TRANSFUSE IF DROPS FURTHER, CONSIDER IV IRON ELEVATED LIVER ENZYMES -IMPROVING WILL CONTINUE TO MONITOR HIS INTAKE CHANGES ACUTE KIDNEY INJURY -IV FLUIDS MONITOR BUN/CR AND ELECTROLYTES GASTROPARESIS ON REGLAN DECREASED APPETITE - PT ON MARINOL - DOSE INCREASED DELIRIUM - SUPPORTIVE CARE ONLY AT THIS TIME LOOSE STOOL - PT ON FLAGYL IV - ADDED LACTOBACILLUS NILSA AGUIRRE Oct 18, 2019 07:50 TITA LAINEZ MD Oct 19, 2019 09:38
[2019-10-18] MEDS: METOCLOPRAMIDE INJ 10 MG/2 ML (REGLAN) IV SCH ×4 (09:32→20:05)
[2019-10-18] MEDS: PANTOPRAZOLE 40 MG (PROTONIX) VIAL IV SCH (09:32)
[2019-10-18] MEDS ORDERED: KCL 20 MEQ TAB (K-DUR) PO ONE (09:45)
[2019-10-18] MEDS ORDERED: KCL 20 MEQ TAB (K-DUR) PO NR (09:45)
[2019-10-18] MEDS: fentaNYL INJECTION 100 MCG/2 ML AMP IVP PRN ×6 (09:58→23:10)
--- NOTE | 2019-10-18 10:08 | NUR ---
WOUND CARE WAS IN ROOM WITH PT AT TIME OF TREATMENT. NO TREATMENT GIVEN
--- NOTE | 2019-10-18 10:15 | NUR ---
Swing Bed Note: Assisted the wound care nurse in changing the wound vac. Dr. Anthony came to bedside and performed a bedside debridement of the abdominal wound before Sheila MARTINEZ reapplied the wound vac. Dr. Anthony had encouraged him to eat anything that sounded good and to drink his ensure. Wound care Zafar RN and this nurse encouraged him as well. After the dressing change we attempted to have him drink some ensure. He drank 2 large drinks, approximately 1/4 of the bottle of vanilla ensure and then refused to drink anymore.
[2019-10-18] MEDS: ANIDULAFUNGIN INJECTION 100 MG in NS (IVPB) 100 ML IV SCH (10:30)
--- NOTE | 2019-10-18 10:30 | Progress Note ---
Subjective Date Seen by a Provider: Oct 18, 2019 Time Seen by a Provider: 10:00 Subjective/Events-last exam clinically stabel. normal WBC, afebrile, normal bowel fxn. confused and not eating well. Objective Exam Vital Signs Date Time Temp Pulse Resp B/P (MAP) Pulse Ox O2 Delivery O2 Flow Rate FiO2 10/18/19 09:58 37.0 10/18/19 05:13 37.0 80 18 140/75 (96) 99 Room Air 10/18/19 03:00 92 Room Air 10/17/19 21:44 91 Room Air 10/17/19 21:00 Room Air 10/17/19 17:09 37.2 78 22 138/73 (94) 93 Room Air 10/17/19 15:33 93 Room Air I & O 10/18/19 07:00 Intake Total 2376.5 ml Output Total 1155 ml Balance 1221.5 ml Capillary Refill : Less Than 3 Seconds General Appearance: No Apparent Distress HEENT: PERRL/EOMI Neck: Full Range of Motion Respiratory: Chest Non Tender, Decreased Breath Sounds Cardiovascular: Regular Rate, Rhythm Gastrointestinal: normal bowel sounds, soft, other (wound dehiscence with necrotic subcuteous, fascia, omentum and granulation tissue at base, one exposed drain.) Extremity: Normal Capillary Refill Neurologic/Psychiatric: Alert, Oriented x3 Skin: Normal Color Lymphatic: No Adenopathy Results Lab Laboratory Tests 10/17/19 13:34: Vancomycin Level Trough 16.3 10/18/19 05:00: White Blood Count 5.4, Red Blood Count 2.62L, Hemoglobin 7.4L, Hematocrit 23L, Mean Corpuscular Volume 89, Mean Corpuscular Hemoglobin 28, Mean Corpuscular Hemoglobin Concent 32, Red Cell Distribution Width 15.6H, Platelet Count 85L, Mean Platelet Volume 10.9H, Sodium Level 150H, Potassium Level 3.5L, Chloride Level 125H, Carbon Dioxide Level 18L, Anion Gap 7, Blood Urea Nitrogen 21H, Creatinine 0.72, Estimat Glomerular Filtration Rate > 60, BUN/Creatinine Ratio 29, Glucose Level 97, Calcium Level 7.5L, Corrected Calcium 9.3, Magnesium Level 1.9, Total Bilirubin 0.6, Aspartate Amino Transf (AST/SGOT) 106H, Alanine Aminotransferase (ALT/SGPT) 118H, Alkaline Phosphatase 60, Total Protein 4.5L, Albumin 1.7L Assessment/Plan Assessment/Plan Assess & Plan/Chief Complaint SBO s/p expl lap, MARIE long segment small bowel resection. wound necrosis and dehiscence. no exposed bowel. will proceed with sharp debridement by bedside(6x4cm). continue wound VAC 2x/weekly. encourage PO. Clinical Quality Measures DVT/VTE Risk/Contraindication: Risk Factor Score Per Nursin ROMAIN LOFTON MD Oct 18, 2019 10:30
[2019-10-18] MEDS: D5 1/2 NS W/KCL 20 MEQ/L 1,000 ML IV SCH ×2 (10:37→21:49)
--- NOTE | 2019-10-18 11:11 | Occupational Ther Daily Note ---
OT Current Status-Daily Note Subjective Pt dozing in bed. Pt requires max encouragement to complete any tasks with OT. Pt keeps eyes closed through most of session unless startled then would open for a few seconds. ADL-Treatment NORRIS attempted to get pt to use wash cloth to wash face. Pt grasped wash cloth then placed on bed rail. NORRIS washed pt's face. Pt stated he did not need any more washing. Attempted to engage pt in conversation and to move B UE for exercise. Pt put one finger out and shook it at NORRIS then closed eyes and turned head. After session, pt lying in bed with call light/phone in reach. All needs met in room. Therapy Code Descriptions/Definitions Functional [place] Measure: 0=Not Assessed/NA 4=Minimal Assistance 1=Total Assistance 5=Supervision or Setup 2=Maximal Assistance 6=Modified [place] 3=Moderate Assistance 7=Complete IndependenceSCALE: Activities may be completed with or without assistive devices. 7-Ybkkfqaihf-pttakbu completes the activity by him/herself with no assistance from a helper. 5-Set-up or Clean-up Assistance-helper sets up or cleans up; patient completes activity. [place] assists only prior to or following the activity. 4-Supervision or Touching Assistance-helper provides verbal cues and/or touching/steadying and/or contact guard assistance as patient completes activity. Assistance may be provided throughout the activity or intermittently. 3-Partial/Moderate Assistance-helper does LESS THAN HALF the effort. [place] lift s, holds or supports trunk or limbs, but provides less than half the effort. 2-Substantial/Maximal Assistance-helper does MORE THAN HALF the effort. [place] lifts or holds trunk or limbs and provides more than half the effort. 1-Pnixgazup-qkiflm does ALL the effort. Patient does none of the effort to complete the activity. Or, the assistance of 2 or more helpers is required for the patient to complete the activity. If activity was not attempted, code reason: 7-Patient Refused. 9-Not Applicable-not attempted and the patient did not perform the activity before the current illness, exacerbation or injury. 10-Not Attempted due to Environmental Limitations-(lack of equipment, weather restraints, etc.). 88-Not Attempted due to Medical Conditions or Safety Concerns. OT Fdc Goals Fdc Goals Time Frame: Nov 01, 2019 Eating (QC): 6 Oral Hygiene (QC): 6 Toileting Hygiene (QC): 6 Shower/Bathe Self (QC): 6 Upper Body Dressing (QC): 6 Lower Body Dressing (QC): 6 On/Off Footwear (QC): 6 1=Demonstrate adherence to instructed precautions during ADL tasks. 2=Patient will verbalize/demonstrate understanding of assistive devices/modifications for ADL. 3=Patient will improve strength/tolerance for activity to enable patient to perform ADL's. OT Education/Plan Problem List/Assessment Assessment: Decreased Activ Tolerance, Decreased Safety Aware, Impaired Cognition, Impaired Coordination, Impaired Funct Balance, Impaired Self-Care Skills Pt would benefit from skilled OT services in order to increase pt's independence to return home safely. Discharge Recommendations Plan/Recommendations: Continue POC Treatment Plan/Plan of Care Patient would benefit from OT for education, treatment and training to promote independence in ADL's, mobility, safety and/or upper extremity function for ADL's. Plan of Care: ADL Retraining, Functional Mobility, UE Funct Exercise/Act Treatment Duration: Nov 01, 2019 Frequency: 5 times per week Estimated Hrs Per Day: .25 hour per day Rehab Potential: Fair Time/GCodes Start Time: 10:50 Stop Time: 11:05 Total Time Billed (hr/min): 15 Billed Treatment Time 1 visit-FA 1 (15 min) FATOUMATA DEL REAL Oct 18, 2019 11:11
[2019-10-18] MEDS: DRONABINOL 2.5 MG (MARINOL) CAP PO SCH ×2 (12:06→16:56)
[2019-10-18] MEDS: ALBUMIN 25% 25 GM/100 ML 100 ML IV SCH ×2 (13:34→22:40)
[2019-10-18] MEDS: LACTOBACILLUS ACIDOPHILUS (PROBIOTIC) CAPSULE PO SCH ×2 (13:37→16:56)
--- NOTE | 2019-10-18 13:39 | Physical Therapy Progress Note ---
Therapy Progress Note Patient refused physical therapy this afternoon. was in room and was trying to encourage patient to participate and he clearly states "I don't give a fuck what they want" and then continued being verbally abusive toward his . Patient is very agitated this afternoon. He does seem to be speaking a little more clearly, usually he mumbles and is hard to understand. We will try patient tomorrow. ANNEMARIE CROFT PT Oct 18, 2019 13:39
--- NOTE | 2019-10-18 14:49 | NUR ---
NOTE THAT PT HAS CURSE AT STAFF AND TRYING TO CLIMB OUT OF BED AND HARD TO GET MEDS DOWN -- AND TRYING TO PULL AT HIS LINES AND AT TIME DSG -- TELE SITTER IS ON HIM THIS AM HE HAD A BM AND FOUND PLAYING IN IT AND EATING IT -- THIS RN DID CALL TELE -- SITTER AND THEY ASSURED THIS RN THEY WERE WATCHING HIM - HE WILL GET HIS LEGS OFF THE BED -- BED ALARM IS ON AND STAFF GETS TO HIS ROOM O REORIENT HIM AND AT TIMES HE CURSES AT STAFF OR WILL SLA AT STAFF - STRAIGHT TRUCK DRIVER WAS ON THE FLOOR AND IS AWARE -
[2019-10-18 17:14] VITALS: BP 152/88
[2019-10-18] MEDS: MELATONIN 10 MG TABLET PO SCH (20:05)
[2019-10-19] MEDS: CEFEPIME INJECTION 1,000 MG in WATER (STERILE) FOR INJECTION 10 ML IV SCH ×4 (00:39→19:09)
[2019-10-19] MEDS: fentaNYL INJECTION 100 MCG/2 ML AMP IVP PRN ×4 (00:40→14:58)
[2019-10-19] MEDS: VANCOMYCIN INJECTION 1,250 MG in NS (IVPB) 250 ML IV SCH ×2 (01:52→16:52)
--- NOTE | 2019-10-19 04:14 | NUR ---
2200-pt had wound vac tubing coiled up in his hand-vac alarming-blockage this rn straightened tubing out, educated pt on vac purpose-vac longer alarming-drainage is noted to be sucking up in the tubing 2230-wound vac alarming upisv-qixprobe-vo blockage noted by this rn-seal check preformed- reset vac, no longer alarming-drainage is noted to be sucking up in the tubing 2245-wound vac alarming-Danielle MARTINEZ checked vac-no blockage-per vac recommendations the wound vac pump was placed lower on the iv pole-no longer alarming 0000-vac alarming-canister changed & vac reset-no longer alarming-drainage is noted to be sucking up in the tubing-200 ml bloody drainage in canister 0245-vac alarming blockage Mily Hinkle RN & Winnie Hinkle RN supervisor statement clerks evaluated-no blockage noted-drainage is noted to be sucking up in the tubing-no longer alarming 0320-wound vac alarming blockage-all of the wound vacc was changed out by Mily Hinkle RN-pt tolerated well-drainage is noted to be sucking up in the tubing-no longer alarming.
[2019-10-19] MEDS: metroNIDAZOLE 500MG/100ML IVPB 100 ML IV SCH ×3 (05:23→22:15)
[2019-10-19] MEDS: D5 1/2 NS W/KCL 20 MEQ/L 1,000 ML IV SCH (05:23)
[2019-10-19 05:43] LABS: RED CELL DISTRIBUTION WIDTH 15.4 % (10.0-14.5); WHITE BLOOD COUNT 4.2 10^3/uL (4.3-11.0)
[2019-10-19 05:56] LABS: CHLORIDE 123 MMOL/L (98-107); POTASSIUM 3.3 MMOL/L (3.6-5.0); SODIUM 148 MMOL/L (135-145)
[2019-10-19 05:57] LABS: CALCIUM 7.5 MG/DL (8.5-10.1)
[2019-10-19 05:59] LABS: GLUCOSE 94 MG/DL (70-105); TOTAL PROTEIN 4.5 GM/DL (6.4-8.2)
[2019-10-19 06:00] VITALS: BP 147/82
[2019-10-19 06:00] LABS: CARBON DIOXIDE 19 MMOL/L (21-32)
[2019-10-19 06:01] LABS: BILIRUBIN,TOTAL 0.6 MG/DL (0.1-1.0)
[2019-10-19 06:02] LABS: ALKALINE PHOSPHATASE 50 U/L (40-136); CREATININE SERUM 0.66 MG/DL (0.60-1.30); GFR ESTIMATED > 60
[2019-10-19 06:03] LABS: BUN/CREATININE RATIO 21
[2019-10-19 06:05] LABS: ALANINE AMINOTRANSFERASE 81 U/L (0-55); MAGNESIUM 1.8 MG/DL (1.6-2.4)
[2019-10-19] MEDS: ALBUMIN 25% 25 GM/100 ML 100 ML IV SCH ×2 (06:35→13:18)
[2019-10-19] MEDS: RT-ALBUTEROL/IPRATROPIUM 3 ML (DUONEB) VIAL INH SCH ×3 (07:12→21:38)
--- NOTE | 2019-10-19 07:59 | Progress Note ---
Subjective Subjective Date Seen by Provider: Oct 19, 2019 Time Seen by Provider: 07:15 Pt awake and alert, but confused. Nursing and OT/PT staff report pt becoming agitated during the day yesterday cursing and becoming physically aggressive. Pt tries to get out of bed as well, but did not want to cooperate when PT was in the room cursing at them and his . OT was able to do a little face washing and some UE movements before pt refused more therapy. Nursing staff reported pt had BM in bed yesterday afternoon and was found eating it upon nursing staff entering room. Pt has brought in many snacks and food for the pt to eat. This morning he did eat a small amount of the bread his had brought in after he was encouraged to eat. 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 He had edema of bilateral ankles worse on the left that was not seen previously. He appears to get more aggravated as the day progresses. Review of Systems General: No Chills; Appetite (Reports normal, but not eating) HEENT: No Head Aches, No Visual Changes, No Dysphasia, No Sore Throat Pulmonary: No Dyspnea; Cough (Reports improving) Cardiovascular: Edema (Bilateral ankles ); No: Chest Pain, Palpitations Gastrointestinal: Abdominal Pain (Generalized abdominal); No: Nausea, Vomiting, Diarrhea, Constipation Genitourinary: No Other (Garzon Catheter) Musculoskeletal: back pain; No: neck pain, leg pain Neurological: Weakness, Confusion; No: Numbness Objective Exam Vital Signs Vital Signs - First Documented 10/16/19 10/16/19 10/17/19 15:01 17:20 09:21 Temp 37.4 Pulse 67 Resp 18 B/P (MAP) 121/51 (74) Pulse Ox 89 O2 Delivery Room Air O2 Flow Rate 2.00 FiO2 2 Capillary Refill : Less Than 3 Seconds General Appearance: No Apparent Distress HEENT: PERRL/EOMI Neck: Full Range of Motion Respiratory: Chest Non Tender, Decreased Breath Sounds Cardiovascular: Regular Rate, Rhythm; No No Edema (Bilateral ankle, left worse than right); Normal Peripheral Pulses Gastrointestinal: Abnormal Bowel Sounds (Decreased x4 quadrants), Tenderness (Bilateral flanks) Extremity: Normal Capillary Refill, No Calf Tenderness, Pedal Edema Neurologic/Psychiatric: Alert, Other (Confusion, Agitation) Skin: Normal Color Lymphatic: No Adenopathy Results Lab Laboratory Tests 10/19/19 05:35: White Blood Count 4.2L, Red Blood Count 2.42L, Hemoglobin 7.0L, Hematocrit 22L, Mean Corpuscular Volume 89, Mean Corpuscular Hemoglobin 29, Mean Corpuscular Hemoglobin Concent 32, Red Cell Distribution Width 15.4H, Platelet Count 88L, Mean Platelet Volume 11.0H, Sodium Level 148H, Potassium Level 3.3L, Chloride Level 123H, Carbon Dioxide Level 19L, Anion Gap 6, Blood Urea Nitrogen 14, Creatinine 0.66, Estimat Glomerular Filtration Rate > 60, BUN/Creatinine Ratio 21, Glucose Level 94, Calcium Level 7.5L, Corrected Calcium 9.1, Magnesium Level 1.8, Total Bilirubin 0.6, Aspartate Amino Transf (AST/SGOT) 79H, Alanine Aminotransferase (ALT/SGPT) 81H, Alkaline Phosphatase 50, Total Protein 4.5L, Albumin 2.0L Assessment/Plan Assessment/Plan Assessment and Plan SMALL BOWEL OBSTRUCTION -CONTINUE NORMAL DIET, ENCOURAGE PT TO EAT, MONITOR BOWEL MOVEMENTS -IV FLUIDS -CONSULT DR LOFTON -S/P OPEN RESECTION -[address] -INCREASING DRAINAGE OVER LAST THREE DAYS (10/15 =110ml, 10/16 =190ml, 10/17 =210ml) -CONSIDER ABDOMINAL X-RAY/CT TO ASSES FOR FLUID COLLECTION -INCREASING ABDOMINAL TENDERNESS PEDAL EDEMA -LASIX 20MG BOLUS -MONITOR POTASSIUM -CHANGED POTASSIUM INFUSION TO D5 1/2 NS YESTERDAY DUE TO HYPERNATREMIA ALTERED MENTAL STATUS -CONFUSION POSSIBLY DUE TO DELIRIUM -APPEARS TO WORSEN THROUGH DAY -CONSIDER OLANZAPINE FOR SUN DOWNING AND IMPROVEMENT OF APPETITE -PT REQUIRES SITTER TO PREVENT LEAVING BED AND MESSING WITH IV LINES -MONITOR SEPSIS/ LEUKOCYTOSIS -LEUKOPENIA DEVELOPED TODAY WITH WBC AT 4.2 FROM 5.4 YESTERDAY -CONTINUE VANCOMYCIN, CEFEPIME, ANIDULAFUNGIN, IV FLUIDS -ABDOMINAL INCISION CULTURED, -E. COLI, KLEBSIELLA, AND ENTEROCOCCUS CULTURES -MIDLINE INCISION WOUND VAC- MONITOR OUTPUT -MONITOR PULMONARY EFFUSION / POSSIBLE PNEUMONIA -CONTINUE TO MONITOR, ENCOURAGE DEEP BREATHES, SPIROMETER AND OSCILLATORY PEP USAGE -CONSIDER LASIX 20MG BOLUS -CONSIDER REPEAT CXR TO ASSES THROMBOCYTOPENIA -IMPROVING -POSSIBLY DUE TO HEPARIN INDUCED THROMBOCYTOPENIA -STOPPED HEPARIN ON 10/11, PLATELETS IMPROVING -CONSIDER STARTING ARGATROBAN TO PREVENT THROMBOSIS/ DVT PROPHYLAXIS -MONITOR FOR BLEEDING -MONITOR PLATELETS-INCREASED TO 88 TODAY FROM 85 YESTERDAY ANEMIA -HGB REMAINS LOW BUT STABLE IN 7-8 RANGE -MONITOR HGB/HCT - IRON STUDIES PERFORMED 10/15 -LOW SERUM IRON 22, LOW TIBC 131, ELEVATED FERRITIN 2591.8 -CONSIDER IRON SUPPLEMENTATION HYPOTENSION -IMPROVED HYPOCALCEMIA -IMPROVING -MONITOR ORAL INTAKE ELEVATED LIVER ENZYMES -IMPROVING -MONITOR ACUTE KIDNEY INJURY -IMPROVED ELEVATED LIPASE -IMPROVED GASTROPARESIS HIATAL HERNIA Clinical Quality Measures DVT/VTE Risk/Contraindication: Risk Factor Score Per Nursin Supervisory-Addendum Brief Verification & Attestation Participated in pt care: history, MDM, physical Personally performed: exam, history, MDM Care discussed with: Medical Student Procedures: n/a Results interpretation: Verified all documentation i have personally evaluated the patient with the medical student and agree with documentation as noted above in student note. patient has been persistently confused, plan on starting on zyprexa for confusion to see if this will help to alleviate some of his burden of delirium. pt will need blood transfusion - 1 unit to be given and re-eval for h and h if still low will transfuse second unit. NILSA AGUIRRE MED STUDEN Oct 19, 2019 07:59 TITA LAINEZ MD Oct 21, 2019 09:09
[2019-10-19] MEDS ORDERED: NS IV 500 ML 500 ML IV SCH ×2 (08:26→08:30)
[2019-10-19] MEDS ORDERED: FUROSEMIDE 40 MG/4 ML INJ (LASIX) IVP ONE ×2 (08:30)
--- NOTE | 2019-10-19 08:30 | Physical Therapy Daily Note ---
PT Daily Note-Current Subjective Patient is in bed, incontinent BM, very confused and became slightly combative with PT. Mental Status Patient Orientation: Confused Attachments: Drains, Garzon Catheter, IV wound vac Transfers SCALE: Activities may be completed with or without assistive devices. 5-Nnimcwnkvd-lucseoi completes the activity by him/herself with no assistance from a helper. 5-Set-up or Clean-up Assistance-helper sets up or cleans up; patient completes activity. Miranda assists only prior to or following the activity. 4-Supervision or Touching Assistance-helper provides verbal cues and/or touching/steadying and/or contact guard assistance as patient completes activity. Assistance may be provided throughout the activity or intermittently. 3-Partial/Moderate Assistance-helper does LESS THAN HALF the effort. Miranda lifts, holds or supports trunk or limbs, but provides less than half the effort. 2-Substantial/Maximal Assistance-helper does MORE THAN HALF the effort. Miranda lifts or holds trunk or limbs and provides more than half the effort. 2-Htedohmrf-zonubs does ALL the effort. Patient does none of the effort to complete the activity. Or, the assistance of 2 or more helpers is required for the patient to complete the activity. If activity was not attempted, code reason: 7-Patient Refused. 9-Not Applicable-not attempted and the patient did not perform the activity before the current illness, exacerbation or injury. 10-Not Attempted due to Environmental Limitations-(lack of equipment, weather restraints, etc.). 88-Not Attempted due to Medical Conditions or Safety Concerns. Roll Left & Right (QC): 1 dependent with resistance with rolling to cleanse and change patient Exercises Supine Ex: Heel Slides, Straight leg raise, Hip abd/add Supine Reps: 5 (attempted to perform exercises, however, patient became agitated and had to cease) Assessment Patient tolerates minimal activity and remains in bed with alarm activated for patient safety. Patient very confused and becomes combative. PT Assisted Goals Front End Wheel Loader Operator Goals PT Front End Wheel Loader Operator Goals Time Frame: Oct 23, 2019 Roll Left & Right (QC): 4 Sit to Lying (QC): 4 Lying-Sitting on Side/Bed(QC): 4 Sit to Stand (QC): 4 Chair/Pjv-ek-Hrvph Xfer(QC): 4 Toilet Transfer (QC): 88 Car Transfer (QC): 88 Does the Patient Walk: Yes Walk 10 feet (QC): 4 Walk 50ft with 2 Turns (QC): 4 Walk 150 ft (QC): 4 Walking 10ft on Uneven Surface: 88 1 Step (curb) (QC): 88 4 Steps (QC): 88 12 Steps (QC): 88 Picking up an Object (QC): 88 Wheel 50 feet with 2 turns (QC: 9 Wheel 150 feet: 9 PT Plan Treatment/Plan Treatment Plan: Continue Plan of Care Treatment Plan: Bed Mobility, Education, Functional Activity [place], Functional Strength, Gait, Safety, Therapeutic Exercise, Transfers Treatment Duration: Oct 23, 2019 Frequency: 6 times per week Estimated Hrs Per Day: .25 hour per day Patient and/or Family Agrees t: Yes Time/GCodes Time In: 810 Time Out: 825 Total Billed Treatment Time: 15 Total Billed Treatment 1 visit FA 15 min ANSLEY ARCE PT Oct 19, 2019 08:30
--- NOTE | 2019-10-19 08:37 | NUR ---
albumin transfusion complete. vitals are: t 37.2;hr 83; blood pressure 135/79; o2 at 85 - pt put on 2 L will recheck o2
[2019-10-19] MEDS: LACTOBACILLUS ACIDOPHILUS (PROBIOTIC) CAPSULE PO SCH ×4 (08:39→18:00)
[2019-10-19] MEDS: ANIDULAFUNGIN INJECTION 100 MG in NS (IVPB) 100 ML IV SCH (08:40)
[2019-10-19] MEDS: PANTOPRAZOLE 40 MG (PROTONIX) VIAL IV SCH (08:40)
[2019-10-19] MEDS: METOCLOPRAMIDE INJ 10 MG/2 ML (REGLAN) IV SCH ×4 (08:40→21:36)
[2019-10-19] MEDS: POTASSIUM CL 10MEQ/50ML IVPB 50 ML IV SCH ×4 (10:16→14:13)
--- NOTE | 2019-10-19 10:30 | NUR ---
DR. LOFTON NOTIFIED TO LOOK AT PT'S CENTRAL LINE. TWO OUT OF THREE LUMEN ARE NOT FUNCTIONAL. PT WILL NEED TRANSFUSION. BLOOD CANNOT BE DRAWN THROUGH THIRD LUMEN. LAB ATTEMPTED 3X FOR TYPE AND CROSS BUT COULD NOT GET BLOOD. DR. LOFTON NOTIFIED. ALSO DR. LAINEZ.
--- NOTE | 2019-10-19 11:44 | Progress Note ---
Subjective Date Seen by a Provider: Oct 19, 2019 Time Seen by a Provider: 10:00 Subjective/Events-last exam doing ok. still confused and not eating well. having loose stools which is expected. has wound dehisence with wound vac on. non-functioning central line. Objective Exam Vital Signs Date Time Temp Pulse Resp B/P (MAP) Pulse Ox O2 Delivery O2 Flow Rate FiO2 10/19/19 09:00 93 Room Air 2.00 10/19/19 06:00 37.5 74 20 147/82 (103) 93 Room Air 10/18/19 21:00 Room Air 10/18/19 20:42 93 10/18/19 18:36 37.3 10/18/19 18:06 37.3 10/18/19 17:30 37.3 10/18/19 17:14 37.3 79 20 152/88 (109) 94 Room Air 10/18/19 16:57 37.0 10/18/19 14:45 37.0 10/18/19 14:19 92 Room Air I & O 10/19/19 07:00 Intake Total 3975.0 ml Output Total 2140 ml Balance 1835.0 ml Capillary Refill : Less Than 3 SecondsLess Than 3 Seconds General Appearance: No Apparent Distress HEENT: PERRL/EOMI Neck: Full Range of Motion Respiratory: Chest Non Tender, Decreased Breath Sounds Cardiovascular: Regular Rate, Rhythm Gastrointestinal: normal bowel sounds, soft, other (vac in place) Extremity: Normal Capillary Refill Neurologic/Psychiatric: Alert, Oriented x3 Skin: Normal Color Lymphatic: No Adenopathy Results Lab Laboratory Tests 10/19/19 05:35: White Blood Count 4.2L, Red Blood Count 2.42L, Hemoglobin 7.0L, Hematocrit 22L, Mean Corpuscular Volume 89, Mean Corpuscular Hemoglobin 29, Mean Corpuscular Hemoglobin Concent 32, Red Cell Distribution Width 15.4H, Platelet Count 88L, Mean Platelet Volume 11.0H, Sodium Level 148H, Potassium Level 3.3L, Chloride Level 123H, Carbon Dioxide Level 19L, Anion Gap 6, Blood Urea Nitrogen 14, Creatinine 0.66, Estimat Glomerular Filtration Rate > 60, BUN/Creatinine Ratio 21, Glucose Level 94, Calcium Level 7.5L, Corrected Calcium 9.1, Magnesium Level 1.8, Total Bilirubin 0.6, Aspartate Amino Transf (AST/SGOT) 79H, Alanine Aminotransferase (ALT/SGPT) 81H, Alkaline Phosphatase 50, Total Protein 4.5L, Albumin 2.0L Assessment/Plan Assessment/Plan Assess & Plan/Chief Complaint SBO s/p expl lap, MARIE long segment small bowel resection. wound necrosis and dehiscence. no exposed bowel. will proceed with sharp debridement by bedside(6x4cm). continue wound VAC 2x/weekly. encourage PO. will place new central line. Clinical Quality Measures DVT/VTE Risk/Contraindication: Risk Factor Score Per Nursin ROMAIN LOFTON MD Oct 19, 2019 11:44
[2019-10-19] MEDS: DRONABINOL 2.5 MG (MARINOL) CAP PO SCH ×3 (11:51→16:11)
[2019-10-19 14:30] VITALS: BP 136/76
[2019-10-19 14:50] VITALS: BP 117/94
[2019-10-19 16:14] VITALS: BP 110/79
--- NOTE | 2019-10-19 16:45 | NUR ---
PER LAB, H&H NEEDS CHECKED BETWEEN UNITS DUE TO NATIONAL SHORTAGE ANNOUNCED IN [place] IN JUNE? CALLED AND OK WITH THAT. h & H ORDERED FOR 1741.
--- NOTE | 2019-10-19 16:52 | OPERATIVE REPORT ---
DATE OF SERVICE: 10/18/2019 ATTENDING PRIMARY CARE PHYSICIAN: Dr. Zayra Carpenter. PREOPERATIVE DIAGNOSIS: Abdominal wound dehiscence with necrotic subcutaneous fat and fascia. POSTOPERATIVE DIAGNOSIS: Abdominal wound dehiscence with necrotic subcutaneous fat and fascia. PROCEDURE PERFORMED: Sharp debridement of abdominal wall including subcutaneous fat and fascia, 6 x 4 cm in size. ANESTHESIA: None. ESTIMATED BLOOD LOSS: Minimal. FINDINGS: Necrotic subcutaneous fat and fascia with a wound dehiscence, granulation bed inferiorly with omentum. No exposed bowel. DISPOSITION: The patient tolerated the procedure well. INDICATIONS FOR PROCEDURE: The patient is a 74-year-old male with recurrent episodes of nausea and vomiting as well as abdominal distention. We had done an EGD on him recently and found to have a reflux esophagitis stage II, mild distal esophageal stricture, recurrent hiatal hernia and what was thought to be a gastroparesis with the retained food substance within the stomach. This was done on 09/20/2019. He was admitted for abdominal distention; however, he had significant bowel function and was tolerating diet and was discharged home. He returned with recurrent symptoms and underwent a small bowel follow through, which was consistent with a small-bowel obstruction. He underwent an exploratory laparotomy, lysis of adhesions, small bowel resection and anastomosis on 10/07/2019. The recently placed wound VAC was removed with a significant amount of necrotic debris including subcutaneous fat and fascia with wound dehiscence. No exposed bowel. We will proceed with a sharp debridement of the devitalized tissue to allow the wound VAC to decrease her bacterial load and allow the wound VAC to increase granulation tissue. DESCRIPTION OF PROCEDURE: The wound VAC was removed and the subcutaneous fat and fascia were then sharply debrided using a 10 blade as well as a sharp dissecting scissors until bleeding healthy viable tissue was identified. The previously placed PDS suture was also removed. Good hemostasis was observed using direct pressure and the wound VAC was then reapplied. The patient tolerated the procedure well. We will recheck the wound in 3 days during the wound VAC change. Job ID: [id number] DocumentID: [id number] Dictated Date: 10/19/2019 11:49:52 Therapist Respiratory Date: 10/19/2019 16:52:07 Dictated By: ROMAIN LOFTON MD
[2019-10-19 17:49] LABS: HEMOGLOBIN 8.1 G/DL (13.3-17.7)
--- NOTE | 2019-10-19 18:00 | NUR ---
PER DR. LAINEZ PT DOES NOT NEED THE 2ND UNIT OF BLOOD. PT'S HGB WAS 8.1
[2019-10-19 18:22] VITALS: BP 127/87
--- NOTE | 2019-10-19 19:15 | OPERATIVE REPORT ---
DATE OF SERVICE: 10/19/2019 ATTENDING PRIMARY CARE PHYSICIAN: Zayra Carpenter MD PREOPERATIVE DIAGNOSIS: Nonfunctional central venous catheter. POSTOPERATIVE DIAGNOSIS: Nonfunctional central venous catheter. PROCEDURE: Removal and replacement of left subclavian central venous catheter. SURGEON: Romain Lofton MD ANESTHESIA: Local. ESTIMATED BLOOD LOSS: Minimal. DISPOSITION: The patient tolerated the procedure well. INDICATIONS: The patient is a 74-year-old male who was found to have a small-bowel obstruction and underwent an exploratory laparotomy, lysis of adhesions and resection of approximately 200 cm of small bowel. This was done on 10/08/2019. Since surgery, he has had issues with confusion, dementia as well as malnutrition. He does have normal gastrointestinal transit however, just will not eat. He has a triple lumen central venous catheter in place; however, it is now nonfunctional. He will need further IV therapy as well as possible IV alimentation. DESCRIPTION OF PROCEDURE: The chest and neck were prepped and draped in standard surgical fashion. 1% lidocaine was used to anesthetize the overlying skin. The previous catheter was also prepped and draped. The guidewire was then inserted into the brown port and the triple lumen catheter were removed. A 16 cm central venous catheter was then placed over the guidewire using the Seldinger technique. Guidewire was removed and all three ports grace venous blood and saline pushed in without any resistance. The catheter was then sutured to the skin using 3-0 silk interrupted sutures. Wound was then cleaned and covered with Op-Site. The patient tolerated the procedure well. The catheter may be accessed and used at any time. Job ID: [id number] DocumentID: [id number] Dictated Date: 10/19/2019 11:54:15 Shoe Polisher Date: 10/19/2019 19:14:04 Dictated By: ROMAIN LOFTON MD
--- NOTE | 2019-10-19 21:00 | NUR ---
PATIENTS WOUND VAC ALARMS FOR OBSTRUCTION, HOWEVER I AM ABLE TO VISUALIZE FLUID GOING INTO CANISTER. REPLACED CANISTER TO SEE IF THAT WILL RESOLVE THE PROBLEM. WAS AT 400ML.
[2019-10-19] MEDS: MELATONIN 10 MG TABLET PO SCH (21:38)
[2019-10-20] MEDS: CEFEPIME INJECTION 1,000 MG in WATER (STERILE) FOR INJECTION 10 ML IV SCH ×4 (00:34→18:28)
[2019-10-20] MEDS: D5 1/2 NS W/KCL 20 MEQ/L 1,000 ML IV SCH ×4 (02:26→21:00)
[2019-10-20] MEDS: RT-ALBUTEROL/IPRATROPIUM 3 ML (DUONEB) VIAL INH SCH ×4 (03:40→22:05)
[2019-10-20] MEDS: VANCOMYCIN INJECTION 1,250 MG in NS (IVPB) 250 ML IV SCH ×2 (06:14→18:31)
[2019-10-20 06:15] VITALS: BP 138/84
[2019-10-20] MEDS: metroNIDAZOLE 500MG/100ML IVPB 100 ML IV SCH ×3 (06:19→21:00)
[2019-10-20 06:34] LABS: HEMOGLOBIN 8.5 G/DL (13.3-17.7); MEAN PLATELET VOLUME 11.2 FL (7.4-10.4); RED CELL DISTRIBUTION WIDTH 15.5 % (10.0-14.5); WHITE BLOOD COUNT 4.7 10^3/uL (4.3-11.0)
[2019-10-20 06:53] LABS: ALANINE AMINOTRANSFERASE 68 U/L (0-55); ALBUMIN 2.3 GM/DL (3.2-4.5); ALKALINE PHOSPHATASE 50 U/L (40-136); BILIRUBIN,TOTAL 0.7 MG/DL (0.1-1.0); BUN/CREATININE RATIO 18; CALCIUM 7.6 MG/DL (8.5-10.1); CARBON DIOXIDE 22 MMOL/L (21-32); CHLORIDE 119 MMOL/L (98-107); CREATININE SERUM 0.68 MG/DL (0.60-1.30); GFR ESTIMATED > 60; GLUCOSE 112 MG/DL (70-105); MAGNESIUM 1.9 MG/DL (1.6-2.4); POTASSIUM 3.3 MMOL/L (3.6-5.0); SODIUM 148 MMOL/L (135-145); TOTAL PROTEIN 4.8 GM/DL (6.4-8.2)
[2019-10-20] MEDS: METOCLOPRAMIDE INJ 10 MG/2 ML (REGLAN) IV SCH ×4 (08:04→20:46)
[2019-10-20] MEDS: PANTOPRAZOLE 40 MG (PROTONIX) VIAL IV SCH (08:04)
[2019-10-20] MEDS: LACTOBACILLUS ACIDOPHILUS (PROBIOTIC) CAPSULE PO SCH ×3 (08:13→18:23)
[2019-10-20] MEDS: ANIDULAFUNGIN INJECTION 100 MG in NS (IVPB) 100 ML IV SCH (08:28)
--- NOTE | 2019-10-20 08:39 | Progress Note ---
Subjective Subjective Date Seen by Provider: Oct 20, 2019 Time Seen by Provider: 08:30 PT REPORTS THAT HE IS FEELING GOOD - HE COMPLAINS OF ABDOMINAL PAIN. HE DENIES NAUSEA. HE STATES THAT HE IS EATING WELL, BUT STAFF REPORTS THAT HE DOES NOT HAVE MUCH INTAKE HE SHOULD. HE WAS SOILED UPON MY EXAM TODAY - BUT DID NOT REALIZE HE HAD THE BOWEL MOVEMENT. Review of Systems General: No Chills; Appetite (Reports normal, but not eating) HEENT: No Head Aches, No Visual Changes, No Dysphasia, No Sore Throat Pulmonary: No Dyspnea; Cough Cardiovascular: No: Chest Pain, Palpitations, Edema Gastrointestinal: Abdominal Pain (Increased generalized abdominal); No: Nausea, Vomiting, Diarrhea, Constipation Genitourinary: No Other (Garzon Catheter) Musculoskeletal: back pain; No: neck pain, leg pain Neurological: Weakness, Confusion; No: Numbness Objective Exam Vital Signs Vital Signs - First Documented 10/16/19 10/16/19 10/17/19 15:01 17:20 09:21 Temp 37.4 Pulse 67 Resp 18 B/P (MAP) 121/51 (74) Pulse Ox 89 O2 Delivery Room Air O2 Flow Rate 2.00 FiO2 2 Capillary Refill : Less Than 3 SecondsLess Than 3 Seconds General Appearance: No Apparent Distress, WD/WN HEENT: PERRL/EOMI Neck: Full Range of Motion Respiratory: Chest Non Tender, Decreased Breath Sounds Cardiovascular: Regular Rate, Rhythm Gastrointestinal: Normal Bowel Sounds, Tenderness (LEFT MID ABDOMEN NEAR DRAIN SITE) Extremity: Normal Capillary Refill Neurologic/Psychiatric: Alert, Other (ORIENTED TO PERSON, NOT PLACE OR TIME - THOUGHT HE WAS IN ) Skin: Normal Color Lymphatic: No Adenopathy Results Lab Laboratory Tests 10/19/19 17:42: Hemoglobin 8.1L, Hematocrit 25L 10/20/19 06:15: Hemoglobin 8.5L, Hematocrit 26L, White Blood Count 4.7, Red Blood Count 2.99L, Mean Corpuscular Volume 88, Mean Corpuscular Hemoglobin 28, Mean Corpuscular Hemoglobin Concent 32, Red Cell Distribution Width 15.5H, Platelet Count 110L, Mean Platelet Volume 11.2H, Sodium Level 148H, Potassium Level 3.3L, Chloride Level 119H, Carbon Dioxide Level 22, Anion Gap 7, Blood Urea Nitrogen 12, Creatinine 0.68, Estimat Glomerular Filtration Rate > 60, BUN/Creatinine Ratio 18, Glucose Level 112H, Calcium Level 7.6L, Corrected Calcium 9.0, Magnesium Level 1.9, Total Bilirubin 0.7, Aspartate Amino Transf (AST/SGOT) 71H, Alanine Aminotransferase (ALT/SGPT) 68H, Alkaline Phosphatase 50, Total Protein 4.8L, Albumin 2.3L Assessment/Plan Assessment/Plan Admission Dx SMALL BOWEL OBSTRUCTION HYPOTENSION SEPSIS/ LEUKOCYTOSIS PULMONARY EFFUSION / POSSIBLE PNEUMONIA THROMBOCYTOPENIA ANEMIA HYPOCALCEMIA ELEVATED LIVER ENZYMES ACUTE KIDNEY INJURY ELEVATED LIPASE GASTROPARESIS HIATAL HERNIA Assessment and Plan SMALL BOWEL OBSTRUCTION HYPOTENSION SEPSIS/ LEUKOCYTOSIS PULMONARY EFFUSION / POSSIBLE PNEUMONIA THROMBOCYTOPENIA ANEMIA HYPOCALCEMIA ELEVATED LIVER ENZYMES ACUTE KIDNEY INJURY ELEVATED LIPASE GASTROPARESIS HIATAL HERNIA SMALL BOWEL OBSTRUCTION - DR. LOFTON MANAGING PT STATUS POST PARTIAL SMALL BOWEL RESECTION - PT IS ON SWING BED STATUS AND HAS NEED FOR CONTINUED IV ANTIBIOTICS DUE TO WOUND INFECTION AND EXTENSIVE ILLNESS. HYPOTENSION - RESOLVED ON FLUIDS AND WITH IMPROVEMENT IN HIS SHOCK SEPSIS/ LEUKOCYTOSIS -CONTINUE VANCOMYCIN, CEFEPIME, ANIDULAFUNGIN, IV FLUIDS -ABDOMINAL INCISION CULTURED, -PRELIMINARY E. COLI, KLEBSIELLA, AND ENTEROCOCCUS CULTURES -MIDLINE INCISION WOUND VAC HAS BEEN PLACED, WHITE COUNT IMPROVING PULMONARY EFFUSION / POSSIBLE PNEUMONIA - REPEAT CXR INTERMITTENTLY - ENCOURAGE IS THROMBOCYTOPENIA -IMPROVING -POSSIBLY DUE TO HEPARIN INDUCED THROMBOCYTOPENIA -STOPPED HEPARIN ON 10/11, PLATELETS IMPROVING - WILL HOLD OFF ON ANTICOAGULATION AT THIS TIME DUE TO HIS PERSISTENT LOWER ABDOMEN OOZING OF BLOOD AND HIS LOW PLATELETS. ANEMIA -HGB PERSISTENTLY STATUS POST BLOOD TRANSFUSION YESTERDAY. ELEVATED LIVER ENZYMES -IMPROVING WILL CONTINUE TO MONITOR HIS INTAKE CHANGES ACUTE KIDNEY INJURY -IV FLUIDS MONITOR BUN/CR AND ELECTROLYTES GASTROPARESIS ON REGLAN DECREASED APPETITE - PT ON MARINOL - DOSE INCREASED DELIRIUM - SUPPORTIVE CARE ONLY AT THIS TIME - STARTED ON ZYPREXA TODAY LOOSE STOOL - PT ON FLAGYL IV - ADDED LACTOBACILLUS Clinical Quality Measures DVT/VTE Risk/Contraindication: Risk Factor Score Per Nursin TITA LAINEZ MD Oct 20, 2019 08:39
[2019-10-20] MEDS ORDERED: KCL 20 MEQ TAB (K-DUR) PO ONE (09:00)
[2019-10-20] MEDS: OLANZapine 2.5 MG (ZyPREXA) TAB PO SCH ×2 (09:41→20:45)
[2019-10-20] MEDS: CALCIUM CARB + VIT D 600 MG (CALCARB + D) TAB PO SCH ×2 (09:42→20:46)
--- NOTE | 2019-10-20 10:29 | Progress Note ---
Subjective Date Seen by a Provider: Oct 20, 2019 Time Seen by a Provider: 09:50 Subjective/Events-last exam Patient seen with Dr. Anthony. Patient still confused. Denies any pain. Eating little. Having productive cough with yellow mucus. Having loose stools. Objective Exam Vital Signs Date Time Temp Pulse Resp B/P (MAP) Pulse Ox O2 Delivery O2 Flow Rate FiO2 10/20/19 06:15 37.2 86 20 138/84 (102) 93 Room Air 10/20/19 03:40 93 Room Air 10/19/19 21:39 93 Room Air 10/19/19 21:00 Room Air 10/19/19 18:22 37.1 85 22 127/87 (100) 91 Room Air 10/19/19 16:14 37.0 79 20 110/79 97 10/19/19 15:25 95 Room Air 10/19/19 14:50 37.4 82 16 117/94 97 Room Air 10/19/19 14:31 95 Room Air 10/19/19 14:30 37.2 82 136/76 Room Air I & O 10/20/19 07:00 Intake Total 2292.5 ml Output Total 6480 ml Balance -4187.5 ml Capillary Refill : Less Than 3 SecondsLess Than 3 Seconds General Appearance: No Apparent Distress, WD/WN Neck: Normal Inspection, Non Tender, Supple Respiratory: No Accessory Muscle Use, No Respiratory Distress, Decreased Breath Sounds Cardiovascular: Regular Rate, Rhythm, No Edema Gastrointestinal: normal bowel sounds, non tender, soft, other (Right side ASHLEY drain with clear SS drainage. Left side ASHLEY drain with clear SS to sang. drainage.) Extremity: Normal Inspection, Normal Range of Motion Neurologic/Psychiatric: Alert, Other (Confused) Skin: Normal Color, Warm/Dry, Other (Wound vac in place in mid abdominal wound) Results Lab Laboratory Tests 10/19/19 17:42: Hemoglobin 8.1L, Hematocrit 25L 10/20/19 06:15: Hemoglobin 8.5L, Hematocrit 26L, White Blood Count 4.7, Red Blood Count 2.99L, Mean Corpuscular Volume 88, Mean Corpuscular Hemoglobin 28, Mean Corpuscular Hemoglobin Concent 32, Red Cell Distribution Width 15.5H, Platelet Count 110L, Mean Platelet Volume 11.2H, Sodium Level 148H, Potassium Level 3.3L, Chloride Level 119H, Carbon Dioxide Level 22, Anion Gap 7, Blood Urea Nitrogen 12, Creatinine 0.68, Estimat Glomerular Filtration Rate > 60, BUN/Creatinine Ratio 18, Glucose Level 112H, Calcium Level 7.6L, Corrected Calcium 9.0, Magnesium Level 1.9, Total Bilirubin 0.7, Aspartate Amino Transf (AST/SGOT) 71H, Alanine Aminotransferase (ALT/SGPT) 68H, Alkaline Phosphatase 50, Total Protein 4.8L, Albumin 2.3L Assessment/Plan Assessment/Plan Assess & Plan/Chief Complaint SBO s/p expl lap, MARIE long segment small bowel resection. VSS WBC 4.7 wound necrosis and dehiscence that was debrided continue wound VAC 2x/weekly. encourage PO. Will continue to monitor Clinical Quality Measures DVT/VTE Risk/Contraindication: Risk Factor Score Per Nursin MIGUEL VELASQUEZ SAILMAKER Oct 20, 2019 10:29
[2019-10-20] MEDS: DRONABINOL 2.5 MG (MARINOL) CAP PO SCH ×2 (12:33→18:23)
[2019-10-20] MEDS: oxyCODONE/APAP 7.5-325 MG (PERCOCET 7.5) TABLET PO PRN ×2 (13:58→20:47)
--- NOTE | 2019-10-20 14:00 | NUR ---
PERCOCET PO FOR C/O GENERAL DISCOMFORT.
[2019-10-20 18:00] VITALS: BP 164/77
[2019-10-20] MEDS: MELATONIN 10 MG TABLET PO SCH (20:45)
[2019-10-21] MEDS: CEFEPIME INJECTION 1,000 MG in WATER (STERILE) FOR INJECTION 10 ML IV SCH ×4 (00:30→17:49)
--- NOTE | 2019-10-21 02:18 | NUR ---
1920-WOUND VAC ALARMING NEGATIVE PRESSURE BLOCKAGE-BLOODY DRAINAGE CAN BE SEEN SUCKING UP THE TUBING. WOUND VAC RESET. NO LONGER ALARMING 2030-WOUND VAC ALARMING NEGATIVE PRESSURE BLOCKAGE-BLOODY DRAINAGE CAN BE SEEN SUCKING UP THE TUBING. WOUND VAC RESET. NO LONGER ALARMING [id number] VAC ALARMING NEGATIVE PRESSURE BLOCKAGE-BLOODY DRAINAGE CAN BE SEEN SUCKING UP THE TUBING. WOUND VAC RESET. NEW WOUND VAC PLACED ON PT. NO LONGER ALARMING 0-WOUND VAC ALARMING NEGATIVE PRESSURE BLOCKAGE-BLOODY DRAINAGE SEEN SUCKING UP THE TUBING TO THE CANISTER. WOUND VAC RESET. NO LONGER ALARMING 2244-WOUND VAC ALARMING NEGATIVE PRESSURE BLOCKAGE-BLOODY DRAINAGE SEEN SUCKING UP IN THE TUBING TO THE CANISTER. WOUND VAC DRESSING CHANGED BY [employer]ENS[employer] SU Hinkle RN -PT TOLERATED WELL. WOUND VAC NO LONGER ALARMING, BLOODY DRAINAGE SEEN SUCKING UP IN THE TUBING TO THE CANISTER.
[2019-10-21] MEDS: RT-ALBUTEROL/IPRATROPIUM 3 ML (DUONEB) VIAL INH SCH ×4 (03:47→18:54)
[2019-10-21 04:03] VITALS: BP 137/88
[2019-10-21] MEDS: oxyCODONE/APAP 7.5-325 MG (PERCOCET 7.5) TABLET PO PRN (04:09)
[2019-10-21] MEDS: VANCOMYCIN INJECTION 1,250 MG in NS (IVPB) 250 ML IV SCH (05:39)
[2019-10-21 05:54] LABS: HEMOGLOBIN 7.9 G/DL (13.3-17.7); MEAN PLATELET VOLUME 10.9 FL (7.4-10.4); RED CELL DISTRIBUTION WIDTH 15.4 % (10.0-14.5); WHITE BLOOD COUNT 4.5 10^3/uL (4.3-11.0)
[2019-10-21] MEDS: metroNIDAZOLE 500MG/100ML IVPB 100 ML IV SCH (06:03)
[2019-10-21 06:12] LABS: CHLORIDE 117 MMOL/L (98-107); POTASSIUM 3.2 MMOL/L (3.6-5.0); SODIUM 145 MMOL/L (135-145)
[2019-10-21 06:13] LABS: CALCIUM 7.3 MG/DL (8.5-10.1)
[2019-10-21 06:14] LABS: GLUCOSE 116 MG/DL (70-105); TOTAL PROTEIN 4.6 GM/DL (6.4-8.2)
[2019-10-21 06:15] LABS: CARBON DIOXIDE 22 MMOL/L (21-32)
[2019-10-21 06:16] LABS: BILIRUBIN,TOTAL 0.6 MG/DL (0.1-1.0)
[2019-10-21 06:17] LABS: ALKALINE PHOSPHATASE 49 U/L (40-136)
[2019-10-21 06:18] LABS: CREATININE SERUM 0.62 MG/DL (0.60-1.30); GFR ESTIMATED > 60
[2019-10-21 06:19] LABS: BUN/CREATININE RATIO 18
[2019-10-21 06:20] LABS: ALANINE AMINOTRANSFERASE 53 U/L (0-55)
[2019-10-21] MEDS: D5 1/2 NS W/KCL 20 MEQ/L 1,000 ML IV SCH ×2 (06:52→15:29)
--- NOTE | 2019-10-21 07:45 | Progress Note ---
Subjective Subjective Date Seen by Provider: Oct 21, 2019 Time Seen by Provider: 07:00 Pt resting, easily aroused, alert. Pt complains of pain "below the waist" on the backside, and abdominal pain. He reports some cough, but denies shortness of breath. Nursing staff reports he has been much more pleasant and talking more since initiation of the pain medication. Nursing also reports significant drainage from the left ASHLEY drain as well as from the wound vac. The wound vac dressing has to be changed at least daily due to occlusion at the dressing site, but still maintains drainage of significant fluid. Pt reports normal appetite, but is not eating enough food. Review of Systems General: No Chills; Appetite (Reports normal, but not eating well) HEENT: No Head Aches, No Visual Changes, No Dysphasia, No Sore Throat Pulmonary: No Dyspnea; Cough Cardiovascular: No: Chest Pain, Palpitations, Edema Gastrointestinal: Abdominal Pain (Abdominal, bilateral flanks), Diarrhea; No: Nausea, Vomiting, Constipation Genitourinary: Other (Garzon Catheter,) Musculoskeletal: back pain; No: neck pain, leg pain Neurological: Weakness, Confusion; No: Numbness Objective Exam Vital Signs Vital Signs - First Documented 10/16/19 10/16/19 10/17/19 15:01 17:20 09:21 Temp 37.4 Pulse 67 Resp 18 B/P (MAP) 121/51 (74) Pulse Ox 89 O2 Delivery Room Air O2 Flow Rate 2.00 FiO2 2 Capillary Refill : Less Than 3 SecondsLess Than 3 Seconds General Appearance: No Apparent Distress, WD/WN HEENT: PERRL/EOMI Neck: Full Range of Motion Respiratory: Chest Non Tender, Lungs Clear, Normal Breath Sounds Cardiovascular: Regular Rate, Rhythm, Normal Peripheral Pulses Gastrointestinal: Normal Bowel Sounds, Tenderness (LEFT MID ABDOMEN NEAR DRAIN SITE, BILATERAL FLANKS) Extremity: Normal Capillary Refill, No Calf Tenderness Neurologic/Psychiatric: Alert, Other (ORIENTED TO PERSON) Skin: Normal Color Lymphatic: No Adenopathy Results Lab Laboratory Tests 10/21/19 05:46: White Blood Count 4.5, Red Blood Count 2.78L, Hemoglobin 7.9L, Hematocrit 25L, Mean Corpuscular Volume 89, Mean Corpuscular Hemoglobin 28, Mean Corpuscular Hemoglobin Concent 32, Red Cell Distribution Width 15.4H, Platelet Count 115L, Mean Platelet Volume 10.9H, Sodium Level 145, Potassium Level 3.2L, Chloride Level 117H, Carbon Dioxide Level 22, Anion Gap 6, Blood Urea Nitrogen 11, Creatinine 0.62, Estimat Glomerular Filtration Rate > 60, BUN/Creatinine Ratio 18, Glucose Level 116H, Calcium Level 7.3L, Corrected Calcium 8.9, Total Bilirubin 0.6, Aspartate Amino Transf (AST/SGOT) 60H, Alanine Aminotransferase (ALT/SGPT) 53, Alkaline Phosphatase 49, Total Protein 4.6L, Albumin 2.0L Assessment/Plan Assessment/Plan Assessment and Plan SMALL BOWEL OBSTRUCTION -CONTINUE NORMAL DIET, ENCOURAGE PT TO EAT, MONITOR BOWEL MOVEMENTS -IV FLUIDS -CONSULTED DR LOFTON -S/P OPEN RESECTION -[address] -SIGNIFICANT DRAINAGE FROM LEFT DRAIN WITH MINIMAL FROM RIGHT -DR. LOFTON PLANS TO REMOVE RIGHT ASHLEY DRAIN TODAY -ABDOMINAL TENDERNESS PEDAL EDEMA -IMPROVED, MONITOR FOR FLUID STATUS CHANGES ALTERED MENTAL STATUS -DELIRIUM -CONTINUE OLANZAPINE -IMPROVED MOOD AFTER INITIATION OF PAIN MEDICATION -MONITOR SEPSIS/ LEUKOCYTOSIS -IMPROVING -CONTINUE VANCOMYCIN, CEFEPIME, ANIDULAFUNGIN, IV FLUIDS -ABDOMINAL INCISION CULTURED, -E. COLI, KLEBSIELLA, AND ENTEROCOCCUS CULTURES -MIDLINE INCISION WOUND VAC- MONITOR OUTPUT -MONITOR PULMONARY EFFUSION / POSSIBLE PNEUMONIA -CONTINUE TO MONITOR, ENCOURAGE DEEP BREATHES, SPIROMETER AND OSCILLATORY PEP USAGE -CONSIDER LASIX 20MG BOLUS -CONSIDER REPEAT CXR TO ASSES THROMBOCYTOPENIA -IMPROVING -POSSIBLY DUE TO HEPARIN INDUCED THROMBOCYTOPENIA -STOPPED HEPARIN ON 10/11, PLATELETS IMPROVING -CONSIDER STARTING ARGATROBAN TO PREVENT THROMBOSIS/ DVT PROPHYLAXIS -HOLD ANTICOAGULATION DUE TO RISK OF BLEEDING AND LOW PLATELET COUNT -MONITOR PLATELETS-INCREASED TO 115 ANEMIA -HGB REMAINS LOW BUT STABLE IN -8 RANGE -MONITOR HGB/HCT - IRON STUDIES PERFORMED 10/15 -LOW SERUM IRON 22, LOW TIBC 131, ELEVATED FERRITIN 2591.8 -CONSIDER IRON SUPPLEMENTATION -RBC TRANSFUSION GIVEN 10/18, -PROVIDED ONLY TRANSIENT IMPROVEMENT IN HGB HYPOTENSION -IMPROVED HYPOCALCEMIA -IMPROVING -MONITOR ORAL INTAKE ELEVATED LIVER ENZYMES -IMPROVING -MONITOR ACUTE KIDNEY INJURY -IMPROVED ELEVATED LIPASE -IMPROVED GASTROPARESIS -CONTINUE REGLAN HIATAL HERNIA Clinical Quality Measures DVT/VTE Risk/Contraindication: Risk Factor Score Per Nursin Supervisory-Addendum Brief Verification & Attestation Participated in pt care: history, MDM, physical Personally performed: exam, history, MDM, supervision of care Care discussed with: Medical Student Procedures: n/a Results interpretation: Verified all documentation SMALL BOWEL OBSTRUCTION HYPOTENSION SEPSIS/ LEUKOCYTOSIS PULMONARY EFFUSION / POSSIBLE PNEUMONIA THROMBOCYTOPENIA ANEMIA HYPOCALCEMIA ELEVATED LIVER ENZYMES ACUTE KIDNEY INJURY ELEVATED LIPASE GASTROPARESIS HIATAL HERNIA SMALL BOWEL OBSTRUCTION - DR. LOFTON MANAGING PT STATUS POST PARTIAL SMALL BOWEL RESECTION - PT IS ON SWING BED STATUS AND HAS NEED FOR CONTINUED IV ANTIBIOTICS DUE TO WOUND INFECTION AND EXTENSIVE ILLNESS. HYPOTENSION - RESOLVED ON FLUIDS AND WITH IMPROVEMENT IN HIS SHOCK SEPSIS/ LEUKOCYTOSIS -CONTINUE CEFEPIME, ANIDULAFUNGIN, IV FLUIDS -ABDOMINAL INCISION CULTURED, -PRELIMINARY E. COLI, KLEBSIELLA, AND ENTEROCOCCUS CULTURES -MIDLINE INCISION WOUND VAC HAS BEEN PLACED, WHITE COUNT IMPROVING PULMONARY EFFUSION / POSSIBLE PNEUMONIA - REPEAT CXR INTERMITTENTLY - ENCOURAGE INCENTIVE SPIROMETRY THROMBOCYTOPENIA -IMPROVING -POSSIBLY DUE TO HEPARIN INDUCED THROMBOCYTOPENIA -STOPPED HEPARIN ON 10/11, PLATELETS IMPROVING - STARTED ON LOVENOX ANEMIA -HGB PERSISTENTLY STATUS POST BLOOD TRANSFUSION GIVEN OVER THE WEEKEND. ELEVATED LIVER ENZYMES -IMPROVING WILL CONTINUE TO MONITOR HIS INTAKE CHANGES ACUTE KIDNEY INJURY -IV FLUIDS MONITOR BUN/CR AND ELECTROLYTES GASTROPARESIS ON REGLAN DECREASED APPETITE - PT ON MARINOL - DOSE INCREASED DELIRIUM - SUPPORTIVE CARE ONLY AT THIS TIME - STARTED ON ZYPREXA LOOSE STOOL - PT TAKING PROBIOTICS - INTERMITTENTLY NILSA AGUIRRE Oct 21, 2019 07:45 TITA LAINEZ MD Oct 22, 2019 21:58
[2019-10-21] MEDS: ANIDULAFUNGIN INJECTION 100 MG in NS (IVPB) 100 ML IV SCH (08:25)
[2019-10-21] MEDS: METOCLOPRAMIDE INJ 10 MG/2 ML (REGLAN) IV SCH ×4 (08:27→20:09)
[2019-10-21] MEDS: PANTOPRAZOLE 40 MG (PROTONIX) VIAL IV SCH (08:30)
[2019-10-21] MEDS: CALCIUM CARB + VIT D 600 MG (CALCARB + D) TAB PO SCH ×2 (08:34→20:09)
[2019-10-21] MEDS: OLANZapine 2.5 MG (ZyPREXA) TAB PO SCH ×2 (08:37→20:07)
[2019-10-21] MEDS: LACTOBACILLUS ACIDOPHILUS (PROBIOTIC) CAPSULE PO SCH ×3 (08:37→17:53)
[2019-10-21] MEDS: POTASSIUM CL 10MEQ/50ML IVPB 50 ML IV SCH ×4 (09:10→11:04)
[2019-10-21] MEDS: ENOXAPARIN 40 MG/0.4 ML (LOVENOX) SYR SQ SCH (09:11)
--- NOTE | 2019-10-21 09:40 | NUR ---
SOLITARIO CHEW admitted to room 412-1, with an admitting diagnosis of headache, on 10/16/19 from direct admission via w/c, accompanied by daughter and [id number]. SOLITARIO CHEW introduced to surroundings, call light, bed controls, phone, TV, temperature control, lights, meal times, smoking policy, visitor policy, side rail policy, bathrooms and showers. Patient Rights given to patient in the handbook. SOLITARIO CHEW verbalizes understanding that [facility] is not responsible for the loss or damage to any personal effects or valuables that are kept in the patients posession during their hospitalization. SOLITARIO CHEW verbalizes understanding of Interdisciplinary Patient Education. Patient and/or family were informed about the Rapid Response Team and its purpose.
--- NOTE | 2019-10-21 09:42 | Physical Therapy Daily Note ---
PT Daily Note-Current Subjective Patient is more alert today. Initially agrees to PT, then declines. After much encouragement, agrees to PT. Pain Numeric Pain Scale: 5-Moderate Pain Location: Soft Tissue Location Body Site: Abdomen Comment: FLACC Mental Status Patient Orientation: Confused Attachments: Central Line, Drains, Garzon Catheter wound vac Transfers SCALE: Activities may be completed with or without assistive devices. 9-Zoabfhlcyo-msiabge completes the activity by him/herself with no assistance from a helper. 5-Set-up or Clean-up Assistance-helper sets up or cleans up; patient completes activity. [place] assists only prior to or following the activity. 4-Supervision or Touching Assistance-helper provides verbal cues and/or touching/steadying and/or contact guard assistance as patient completes activity. Assistance may be provided throughout the activity or intermittently. 3-Partial/Moderate Assistance-helper does LESS THAN HALF the effort. [place] lifts, holds or supports trunk or limbs, but provides less than half the effort. 2-Substantial/Maximal Assistance-helper does MORE THAN HALF the effort. [place] lifts or holds trunk or limbs and provides more than half the effort. 2-Fcxxiakjd-rordyz does ALL the effort. Patient does none of the effort to c omplete the activity. Or, the assistance of 2 or more helpers is required for the patient to complete the activity. If activity was not attempted, code reason: 7-Patient Refused. 9-Not Applicable-not attempted and the patient did not perform the activity before the current illness, exacerbation or injury. 10-Not Attempted due to Environmental Limitations-(lack of equipment, weather restraints, etc.). 88-Not Attempted due to Medical Conditions or Safety Concerns. Roll Left & Right (QC): 1 Lying to Sitting/Side of Bed(Q: 1 Sit to Stand (QC): 2 Chair/Yuv-rv-Wwllx Xfer(QC): 2 Gait Training Does the Patient Walk?: Yes Distance: 5' Gait Assistive Device: FWW NBOS (would not go farther distance) Exercises Seated Therapy Exercises: Ankle pumps, Long arc quads, Hip flexion Seated Reps: 12 (AAROM) Assessment Patient requires tactile and verbal cues to actively participate with therapy. Patient becomes increasingly agitated during treatment and states, "I can but I won't do it." PT to increase activity as tolerated by patient. PT Doctor Of Audiology Goals Doctor Of Audiology Goals PT Doctor Of Audiology Goals Time Frame: Oct 23, 2019 Roll Left & Right (QC): 4 Sit to Lying (QC): 4 Lying-Sitting on Side/Bed(QC): 4 Sit to Stand (QC): 4 Chair/Vzw-qz-Xgtsh Xfer(QC): 4 Toilet Transfer (QC): 88 Car Transfer (QC): 88 Does the Patient Walk: Yes Walk 10 feet (QC): 4 Walk 50ft with 2 Turns (QC): 4 Walk 150 ft (QC): 4 Walking 10ft on Uneven Surface: 88 1 Step (curb) (QC): 88 4 Steps (QC): 88 12 Steps (QC): 88 Picking up an Object (QC): 88 Wheel 50 feet with 2 turns (QC: 9 Wheel 150 feet: 9 PT Plan Treatment/Plan Treatment Plan: Continue Plan of Care Treatment Plan: Bed Mobility, Education, Functional Activity [place], Functional Strength, Gait, Safety, Therapeutic Exercise, Transfers Treatment Duration: Oct 23, 2019 Frequency: 6 times per week Estimated Hrs Per Day: .25 hour per day Patient and/or Family Agrees t: Yes Time/GCodes Time In: 842 Time Out: 905 Total Billed Treatment Time: 23 Total Billed Treatment 1 visit EX 8 min FA 15 min ANSLEY ARCE PT Oct 21, 2019 09:42
--- NOTE | 2019-10-21 10:52 | Occupational Ther Daily Note ---
OT Current Status-Daily Note Subjective Pt sitting in recliner with eyes closed. Pt opened eyes to name then closed them and proceeded to ignore NORRIS. Attempted to engage pt in conversation and encourage pt to participate in therapy. Pt only shook head no or shrugged shldrs. Mental Status/Objective Patient Orientation: Person, Unable to Assess Attachments: Drains (2, wound vac), Garzon Catheter, IV ADL-Treatment Therapy Code Descriptions/Definitions Functional [place] Measure: 0=Not Assessed/NA 4=Minimal Assistance 1=Total Assistance 5=Supervision or Setup 2=Maximal Assistance 6=Modified [place] 3=Moderate Assistance 7=Complete IndependenceSCALE: Activities may be completed with or without assistive devices. 5-Gjckojfrdw-oflvfer completes the activity by him/herself with no assistance from a helper. 5-Set-up or Clean-up Assistance-helper sets up or cleans up; patient completes activity. [place] assists only prior to or following the activity. 4-Supervision or Touching Assistance-helper provides verbal cues and/or touching/steadying and/or contact guard assistance as patient completes activity. Assistance may be provided throughout the activity or intermittently. 3-Partial/Moderate Assistance-helper does LESS THAN HALF the effort. [place] lifts, holds or supports trunk or limbs, but provides less than half the effort. 2-Substantial/Maximal Assistance-helper does MORE THAN HALF the effort. [place] lifts or holds trunk or limbs and provides more than half the effort. 6-Bcnevhxke-trpnno does ALL the effort. Patient does none of the effort to compl ete the activity. Or, the assistance of 2 or more helpers is required for the patient to complete the activity. If activity was not attempted, code reason: 7-Patient Refused. 9-Not Applicable-not attempted and the patient did not perform the activity before the current illness, exacerbation or injury. 10-Not Attempted due to Environmental Limitations-(lack of equipment, weather restraints, etc.). 88-Not Attempted due to Medical Conditions or Safety Concerns. Other Treatment Pt initially appeared to be in agreement to complete oral care. After supplies and oral swab was ready, pt pressed lips together and shook head no. Place swab in pt's hand and attempted hand over hand, pt allowed swab to reach lips then pressed hand back down. Attempted to get pt to eat a bite, would not open mouth. Pt did wipe mouth. Pt continued to refuse any B UE exercise or ADLs even with assistance provided. Attempted to wash under arm and arm, pt would not lift or move arm. After session, pt sitting in recliner with call light/phone in reach. All needs met in room. OT Halfway Goals Halfway Goals Time Frame: Nov 01, 2019 Eating (QC): 6 Oral Hygiene (QC): 6 Toileting Hygiene (QC): 6 Shower/Bathe Self (QC): 6 Upper Body Dressing (QC): 6 Lower Body Dressing (QC): 6 On/Off Footwear (QC): 6 1=Demonstrate adherence to instructed precautions during ADL tasks. 2=Patient will verbalize/demonstrate understanding of assistive devices/mod ifications for ADL. 3=Patient will improve strength/tolerance for activity to enable patient to perform ADL's. OT Education/Plan Problem List/Assessment Assessment: Decreased Activ Tolerance, Decreased Safety Aware, Impaired Coordination, Impaired Funct Balance, Impaired Self-Care Skills Pt would benefit from skilled OT services in order to increase pt's independence to return home safely. Discharge Recommendations Plan/Recommendations: Continue POC Treatment Plan/Plan of Care Patient would benefit from OT for education, treatment and training to promote independence in ADL's, mobility, safety and/or upper extremity function for ADL's. Plan of Care: ADL Retraining, Functional Mobility, UE Funct Exercise/Act Treatment Duration: Nov 01, 2019 Frequency: 5 times per week Estimated Hrs Per Day: .25 hour per day Rehab Potential: Fair Time/GCodes Start Time: 10:30 Stop Time: 10:45 Total Time Billed (hr/min): 15 Billed Treatment Time 1 visit-FA 1 (15 min) FATOUMATA DEL REAL Oct 21, 2019 10:52
[2019-10-21] MEDS: DRONABINOL 2.5 MG (MARINOL) CAP PO SCH ×3 (11:04→16:16)
--- NOTE | 2019-10-21 13:38 | NUR ---
"RD ASSESSMENT PMHx: diverticulosis; GERD; HTN; hypercholesterolemia; RA PT INTERACTION: Pt was awake and semi-pleasant during nutrition follow-up. Note pt has confusion, per chart review. Note pt only nodded or shook his head for responses to diet hx questions. Pt states he has not been eating well since last assessment. Note pt has been refusing meals x4d, per chart review. Pt states no issues with nausea, vomiting, constipation, or diarrhea since last assessment. Note last BM was 10/19, and pt not currently on bowel regimen per chart review. Note presence of wound and wound VAC on pt's abdomen, per chart review. ABNORMAL NUTRITION-RELATED LAB VALUES LOW: K 3.2; Ca 7.3; Pro 4.6; alb 2.0 HIGH: Cl 117; glu 116; AST 60 Est. kcal needs: 2100 kcal | 25 kcal/kg Est. Pro needs: 68 g Pro | 0.8 g Pro/kg PES STATEMENT: Inadequate oral intake (NI-2.1)related to loss of appetite as evidenced by pt interview | pt refusing meals Inadequate protein intake (NI-5.6.1) related to increased protein needs as evidenced by presence of wound (abdomen incision) INTERVENTION: Continue with current diet order of Regular diet. Continue with current supplementation order of Ensure HP with meals TID. Provides 160 kcal and 16 g Pro per serving, for perceived benefit to wound healing. Encouraged pt to eat when able. Will continue to follow and reassess as pt needs, intake, and status change. MONITOR/EVALUATE: PO Intake; Plan of Care; Hydration Status; Weight Status; Lab Values Flaco Dave, MS, RD, LD"
--- NOTE | 2019-10-21 14:51 | Progress Note ---
Subjective Date Seen by a Provider: Oct 21, 2019 Time Seen by a Provider: 14:00 Subjective/Events-last exam doing ok. still confused but less combative. tolerating diet and having BM's. no fever/chills. Objective Exam Vital Signs Date Time Temp Pulse Resp B/P (MAP) Pulse Ox O2 Delivery O2 Flow Rate FiO2 10/21/19 09:13 96 Nasal Cannula 1.00 10/21/19 04:03 37.0 88 20 137/88 (104) 96 Nasal Cannula 1.00 10/21/19 03:47 93 Room Air 10/20/19 22:09 93 Room Air 10/20/19 19:40 Nasal Cannula 1.00 10/20/19 18:00 37.0 81 18 164/77 (106) 97 Nasal Cannula 1.00 I & O 10/21/19 07:00 Intake Total 2472.5 ml Output Total 1400 ml Balance 1072.5 ml Capillary Refill : Less Than 3 SecondsLess Than 3 Seconds General Appearance: No Apparent Distress HEENT: PERRL/EOMI Neck: Full Range of Motion Respiratory: Chest Non Tender, Normal Breath Sounds Cardiovascular: Regular Rate, Rhythm Gastrointestinal: normal bowel sounds, soft, other (wound vac in place) Extremity: Normal Capillary Refill Neurologic/Psychiatric: Alert, Disoriented Skin: Normal Color Lymphatic: No Adenopathy Results Lab Laboratory Tests 10/21/19 05:46: White Blood Count 4.5, Red Blood Count 2.78L, Hemoglobin 7.9L, Hematocrit 25L, Mean Corpuscular Volume 89, Mean Corpuscular Hemoglobin 28, Mean Corpuscular Hemoglobin Concent 32, Red Cell Distribution Width 15.4H, Platelet Count 115L, Mean Platelet Volume 10.9H, Sodium Level 145, Potassium Level 3.2L, Chloride Level 117H, Carbon Dioxide Level 22, Anion Gap 6, Blood Urea Nitrogen 11, Creatinine 0.62, Estimat Glomerular Filtration Rate > 60, BUN/Creatinine Ratio 18, Glucose Level 116H, Calcium Level 7.3L, Corrected Calcium 8.9, Total Bilirubin 0.6, Aspartate Amino Transf (AST/SGOT) 60H, Alanine Aminotransferase (ALT/SGPT) 53, Alkaline Phosphatase 49, Total Protein 4.6L, Albumin 2.0L 10/21/19 11:32: Lab Scanned Report Transfusion Reaction Form Assessment/Plan Assessment/Plan Assess & Plan/Chief Complaint SBO s/p expl lap, MARIE long segment small bowel resection. wound necrosis and dehiscence. no exposed bowel. will proceed with sharp debridement by bedside(6x4cm). continue wound VAC 2x/weekly. encourage PO. abx now with cefepime and erraxis. Clinical Quality Measures DVT/VTE Risk/Contraindication: Risk Factor Score Per Nursin ROMAIN LOFTON MD Oct 21, 2019 14:51
--- NOTE | 2019-10-21 15:22 | ST Dysphagia Evaluation ---
Speech Evaluation-General Medical Diagnosis small bowel obstruction Onset Date: Oct 11, 2019 Therapy Diagnosis Therapy Diagnosis: Oropharyngeal Dysphagia Precautions Precautions: Aspiration Referral Referring Physician: Dr. Carpenter Medical History Pertinent Medical History: Diverticulitis, GERD, HTN, Rheumatoid Arthritis Reviewed History: Yes Social History Current Living Status: Spouse Speech PLF/Current-Dysphagia Prior Level of Function Patient lived at home with his spouse. It is unclear what his level of function was at that time due to his inability to answer questions. Cognitive Status Patient Orientation: Person, Confused, Unable to Assess Oral Motor Skills Dentition: Edentalous Current Food Consistancy: Regular, Thin Liquids Ability to Follow Directions: Poor Oral Expression Ability: Moderate Impairment Voice Voice Phonatory-Based Quality: Weak Voice Pitch: Normal Voice Loudness: Mildly Soft/Quiet Face Facial Symmetry: Symmetrical Oral-Facial Assessment Oral-Facial Dentition: Normal Labial Seal Description: Reduced ROM, Poor Coordination Unable to follow command Lingual Protrusion: Normal Lingual ROM: Normal Lingual Strength: Normal Pharynx Velopharyngeal Move.: Normal Volitional Dry Swallow: Yes Voluntary Cough: Yes Productive Throat Clear: Yes Dysphagia Evaluation Consistencies Presented: Regular, Thin Liquid, Mechanical Soft, Pureed Oral Phase: Oral Residue, Unable to Form Bolus, Reduced Oral Transit with regular consistency Funct. Velo/Pharyngeal Symptom: Cough After Swallow Patient coughed several times and finally dislodged a "wad" of what appeared to be bread. Patient stated it was an almond. Nursing stated he had choked this am, however she thought "it just went down the wrong pipe". Dietary Recommendations: Mechanical Soft Liquid Recommendations: Thin Swallowing Precautions: Alternate Liquids/Solids, Double Swallow, Decreased Bolus 1/2 Tsp, Liquids from Straw, Liquids from Spoon, Small Bites and Sips, Sitting Upright 90 Degrees, Sitting 90 Degrees 30 Post Intake Dysphagia Evaluation Summary Patient is a 74 y/o male who was admitted to the hospital due to a bowel obstruction. He received surgery and appears to be doing fair. Patient is noted to be confused and was unable to answer questions related to himself or situation. Patient was given 1/2 tsp of thin liquids x2 without difficulty, small sips of thin via straw x2 without difficulty with the first one. The second one he began to cough and coughed up a nickel size "wad" appearing to be a bread like substance. He was able to consume 1/2 tsp of puree, mechanical soft without difficulty. When given 1/2 tsp size of cracker he was unable to manage bolus and swallow with oral clearing. Patient is recommended for Dysphagia II at this time with thin liquids. Patient will receive skilled ST services for ongoing diet assessment. Barriers to Learning Patients level of confusion Speech Short Term Goals Short Term Goals Short Term Goals 1) Patient will tolerate least restrictive diet level without s/s of aspiration at 80% given minimal cuing. 2) Patient/caregiver will utilize compensatory strategies as trained for safe oral intake at 90% or greater with minimal cuing. Speech [facility] Goals [facility] Goals Patient will maintain adequate nutrition/hydration via safe effective swallow function. Speech-Plan Patient/Family Goals Patient/Family Goals: Patient's goals are unknown at this time. Treatment Plan Speech Therapy Treatment Plan: Continue Plan of Care Treatment Duration: Oct 25, 2019 Frequency: 3 times per week Estimated Hrs Per Day: .25 hour per day Rehab Potential: Fair Barriers to Learning: Patient's decreased cognitive status Pt/Family Agrees to Plan: Yes Safety Risks/Education Teaching Recipient: Patient Teaching Methods: Discussion Response to Teaching: Reinforcement Needed Education Topics Provided: Safety of oral intake Time Speech Therapy Time In: 09:30 Speech Therapy Time Out: 09:45 Total Billed Time: 15 Billed Treatment Time 1[address]Y [address] ST Oct 21, 2019 15:22
--- NOTE | 2019-10-21 16:50 | NUR ---
THIS RN IN PATIENT ROOM AT THIS TIME TO GIVE MIRANOL 5 MG PO SCHEDULED DOSE. PATIENT UNWILLING TO OPEN MOUTH FOR THIS RN TO ADMINISTER THIS MEDICATION. FAMILY MEMBER AT BEDSIDE STATED FOR THIS RN TO LEAVE IT WITH HER AND SHE WOULD GIVE THIS MEDICATION WHEN HE WOKE UP MORE. THIS RN EXPLAINED THAT THIS IS A CONTROLLED MEDICATION AND WASTED THIS MEDICATION WITH MICHELLE SEVERINO AND ANNEL RN HELPED ME WASTE THIS MEDICATION IN THE OMNICELL.
[2019-10-21 17:23] VITALS: BP 146/61
[2019-10-21] MEDS: fentaNYL INJECTION 100 MCG/2 ML AMP IVP PRN (19:08)
[2019-10-21] MEDS: MELATONIN 10 MG TABLET PO SCH (20:07)
[2019-10-22] MEDS: fentaNYL INJECTION 100 MCG/2 ML AMP IVP PRN ×4 (00:40→22:44)
[2019-10-22] MEDS: CEFEPIME INJECTION 1,000 MG in WATER (STERILE) FOR INJECTION 10 ML IV SCH ×4 (00:44→17:01)
[2019-10-22] MEDS: RT-ALBUTEROL/IPRATROPIUM 3 ML (DUONEB) VIAL INH SCH ×4 (02:06→19:01)
[2019-10-22] MEDS: D5 1/2 NS W/KCL 20 MEQ/L 1,000 ML IV SCH ×2 (04:01→13:28)
[2019-10-22 06:00] VITALS: BP 134/92
[2019-10-22 06:38] LABS: HEMOGLOBIN 7.8 G/DL (13.3-17.7); MEAN PLATELET VOLUME 10.8 FL (7.4-10.4); RED CELL DISTRIBUTION WIDTH 15.4 % (10.0-14.5); WHITE BLOOD COUNT 5.4 10^3/uL (4.3-11.0)
[2019-10-22 06:59] LABS: ALANINE AMINOTRANSFERASE 47 U/L (0-55); ALBUMIN 1.8 GM/DL (3.2-4.5); ALKALINE PHOSPHATASE 53 U/L (40-136); BILIRUBIN,TOTAL 0.7 MG/DL (0.1-1.0); BUN/CREATININE RATIO 15; CALCIUM 7.3 MG/DL (8.5-10.1); CARBON DIOXIDE 22 MMOL/L (21-32); CHLORIDE 114 MMOL/L (98-107); CREATININE SERUM 0.59 MG/DL (0.60-1.30); GFR ESTIMATED > 60; GLUCOSE 97 MG/DL (70-105); POTASSIUM 3.4 MMOL/L (3.6-5.0); SODIUM 141 MMOL/L (135-145); TOTAL PROTEIN 4.8 GM/DL (6.4-8.2)
--- NOTE | 2019-10-22 08:00 | Progress Note ---
Subjective Subjective Date Seen by Provider: Oct 22, 2019 Time Seen by Provider: 07:20 Pt resting, easily aroused, alert, confused. Pt denies any pain except minor abdominal pain. He does not respond to all questions asked, but nods or softly mumbles a response to most questions. Pt reported some difficulty swallowing, but did not respond to further detailed questions. Speech therapy reported yesterday that he did have some difficulty swallowing and recommended Dysphagia II diet. Pt reports normal appetite, but only eats small amounts of food at a time. Review of Systems General: No Chills; Appetite (Reports normal, but not eating much) HEENT: No Head Aches, No Visual Changes; Dysphasia; No Sore Throat Pulmonary: No Dyspnea; Cough (Intermittent possibly related to dysphagia ) Cardiovascular: Edema (Bilateral ankles ); No: Chest Pain, Palpitations Gastrointestinal: Abdominal Pain (Incisional and Right Flank); No: Nausea, Vomiting, Diarrhea, Constipation Genitourinary: No Other (Garzon Catheter) Musculoskeletal: back pain; No: neck pain, leg pain Neurological: Weakness, Confusion; No: Numbness Objective Exam Vital Signs Vital Signs - First Documented 10/16/19 10/16/19 10/17/19 15:01 17:20 09:21 Temp 37.4 Pulse 67 Resp 18 B/P (MAP) 121/51 (74) Pulse Ox 89 O2 Delivery Room Air O2 Flow Rate 2.00 FiO2 2 Capillary Refill : Less Than 3 SecondsLess Than 3 Seconds General Appearance: No Apparent Distress HEENT: PERRL/EOMI Neck: Full Range of Motion Respiratory: Chest Non Tender, Normal Breath Sounds Cardiovascular: Regular Rate, Rhythm, Normal Peripheral Pulses Gastrointestinal: Normal Bowel Sounds, Tenderness (Incisional and Right Flank) Extremity: Normal Capillary Refill, No Calf Tenderness, Pedal Edema Neurologic/Psychiatric: Alert, Disoriented Skin: Normal Color Lymphatic: No Adenopathy Results Lab Laboratory Tests 10/21/19 11:32: Lab Scanned Report Transfusion Reaction Form 10/22/19 06:25: White Blood Count 5.4, Red Blood Count 2.76L, Hemoglobin 7.8L, Hematocrit 24L, Mean Corpuscular Volume 88, Mean Corpuscular Hemoglobin 28, Mean Corpuscular Hemoglobin Concent 32, Red Cell Distribution Width 15.4H, Platelet Count 112L, Mean Platelet Volume 10.8H, Sodium Level 141, Potassium Level 3.4L, Chloride Level 114H, Carbon Dioxide Level 22, Anion Gap 5, Blood Urea Nitrogen 9, Creatinine 0.59L, Estimat Glomerular Filtration Rate > 60, BUN/Creatinine Ratio 15, Glucose Level 97, Calcium Level 7.3L, Corrected Calcium 9.1, Total Bilirubin 0.7, Aspartate Amino Transf (AST/SGOT) 59H, Alanine Aminotransferase (ALT/SGPT) 47, Alkaline Phosphatase 53, Total Protein 4.8L, Albumin 1.8L Assessment/Plan Assessment/Plan Assessment and Plan SMALL BOWEL OBSTRUCTION -CONTINUE NORMAL DIET, ENCOURAGE PT TO EAT, MONITOR BOWEL MOVEMENTS -IV FLUIDS -CONSULTED DR LOFTON -S/P OPEN RESECTION -[address] -DECREASED DRAINAGE COMPARED TO PREVIOUS DAY (385ML ON 10/19, 230ML ON 10/20) -ABDOMINAL TENDERNESS PEDAL EDEMA -INCREASED EDEMA TODAY -20MG LASIX BOLUS -MONITOR FOR FLUID STATUS CHANGES ALTERED MENTAL STATUS -DELIRIUM -CONTINUE OLANZAPINE -MONITOR SEPSIS/ LEUKOCYTOSIS -IMPROVING -CONTINUE CEFEPIME, ANIDULAFUNGIN, IV FLUIDS -ABDOMINAL INCISION CULTURED, -E. COLI, KLEBSIELLA, AND ENTEROCOCCUS CULTURES -MIDLINE INCISION WOUND VAC- MONITOR OUTPUT -MONITOR PULMONARY EFFUSION / POSSIBLE PNEUMONIA -CONTINUE TO MONITOR, ENCOURAGE DEEP BREATHES, SPIROMETER AND OSCILLATORY PEP USAGE -CONSIDER LASIX 20MG BOLUS -CONSIDER REPEAT CHEST X-RAY TO ASSES THROMBOCYTOPENIA -IMPROVING -POSSIBLY DUE TO HEPARIN INDUCED THROMBOCYTOPENIA -STOPPED HEPARIN ON 10/11, PLATELETS IMPROVING -CONSIDER STARTING ARGATROBAN TO PREVENT THROMBOSIS/ DVT PROPHYLAXIS -ANTICOAGULATION INITIATED YESTERDAY TO PREVENT DVT, -MONITOR PLATELETS-SLIGHT DECREASE TO 112 TODAY FROM 115 YESTERDAY ANEMIA -HGB REMAINS LOW BUT STABLE IN 7-8 RANGE -MONITOR HGB/HCT - IRON STUDIES PERFORMED 10/15 -LOW SERUM IRON 22, LOW TIBC 131, ELEVATED FERRITIN 2591.8 -CONSIDER IRON SUPPLEMENTATION -RBC TRANSFUSION GIVEN 10/18, -PROVIDED ONLY TRANSIENT IMPROVEMENT IN HGB HYPOTENSION -IMPROVED HYPOCALCEMIA -IMPROVING -MONITOR ORAL INTAKE ELEVATED LIVER ENZYMES -IMPROVING -MONITOR ACUTE KIDNEY INJURY -IMPROVED ELEVATED LIPASE -IMPROVED GASTROPARESIS -CONTINUE REGLAN HIATAL HERNIA Clinical Quality Measures DVT/VTE Risk/Contraindication: Risk Factor Score Per Nursin Supervisory-Addendum Brief Verification & Attestation Participated in pt care: history, MDM, physical Personally performed: exam, history, MDM, supervision of care Care discussed with: Medical Student Procedures: n/a Results interpretation: Verified all documentation SMALL BOWEL OBSTRUCTION HYPOTENSION SEPSIS/ LEUKOCYTOSIS PULMONARY EFFUSION / POSSIBLE PNEUMONIA THROMBOCYTOPENIA ANEMIA HYPOCALCEMIA ELEVATED LIVER ENZYMES ACUTE KIDNEY INJURY ELEVATED LIPASE GASTROPARESIS HIATAL HERNIA SMALL BOWEL OBSTRUCTION - DR. LOFTON MANAGING PT STATUS POST PARTIAL SMALL BOWEL RESECTION - PT IS ON SWING BED STATUS AND HAS NEED FOR CONTINUED IV ANTIBIOTICS DUE TO WOUND INFECTION AND EXTENSIVE ILLNESS. HYPOTENSION - RESOLVED ON FLUIDS AND WITH IMPROVEMENT IN HIS SHOCK SEPSIS/ LEUKOCYTOSIS -CONTINUE CEFEPIME, ANIDULAFUNGIN, IV FLUIDS -ABDOMINAL INCISION CULTURED, - E. COLI, KLEBSIELLA, AND ENTEROCOCCUS CULTURES -MIDLINE INCISION WOUND VAC HAS BEEN PLACED, WHITE COUNT IMPROVING PULMONARY EFFUSION / POSSIBLE PNEUMONIA - REPEAT CXR INTERMITTENTLY - ENCOURAGE IS THROMBOCYTOPENIA -IMPROVING -POSSIBLY DUE TO HEPARIN INDUCED THROMBOCYTOPENIA -STOPPED HEPARIN ON 10/11, PLATELETS IMPROVING - LOVENOX STARTED, MONITOR LABS ANEMIA -HGB PERSISTENTLY STATUS POST BLOOD TRANSFUSION OVER THE WEEKEND - SUPPORTIVE CARE UNTIL HGB DROPS AGAIN ELEVATED LIVER ENZYMES -IMPROVING WILL CONTINUE TO MONITOR HIS INTAKE CHANGES ACUTE KIDNEY INJURY -IV FLUIDS MONITOR BUN/CR AND ELECTROLYTES GASTROPARESIS ON REGLAN DYSPHAGIA - SPEECH HAS EVALUATED PT AND HAS HIS ON A MODIFIED DIET DECREASED APPETITE - PT ON MARINOL - DOSE INCREASED - MONITOR SYMPTOMS - PT IS NOT TAKING PILLS WELL DELIRIUM - SUPPORTIVE CARE ONLY AT THIS TIME - STARTED ON ZYPREXA OVER THE WEEKEND - HE SEEMS TO BE MORE ALERT LOOSE STOOL - PT NOT TAKING HIS PO MEDICATIONS WELL- HE HAS NOT BEEN INGESTING HIS PROBIOTICS I HAVE TALKED TO HIS - GERONIMO AND SHE IS IN AGREEMENT THAT HE WILL NEED TO GO TO THE SENIOR LIVING UPON DISCHARGE. SHE UNDERSTANDS THAT SHE CANNOT CARE FOR HIM IN HIS CURRENT STATE AT HOME. - SHE IS SUPPOSED TO LET THE PBX TECHNICIAN KNOW WHICH FACILITY SHE IS WILLING TO HAVE HIM GO TO ON DISCHARGE. NILSA AGUIRRE Oct 22, 2019 08:00 TITA LAINEZ MD Oct 22, 2019 22:04
[2019-10-22] MEDS: LACTOBACILLUS ACIDOPHILUS (PROBIOTIC) CAPSULE PO SCH ×3 (08:23→17:01)
[2019-10-22] MEDS: CALCIUM CARB + VIT D 600 MG (CALCARB + D) TAB PO SCH ×2 (08:23→22:29)
[2019-10-22] MEDS: OLANZapine 2.5 MG (ZyPREXA) TAB PO SCH ×3 (08:24→22:29)
[2019-10-22] MEDS: ANIDULAFUNGIN INJECTION 100 MG in NS (IVPB) 100 ML IV SCH (08:24)
[2019-10-22] MEDS: ENOXAPARIN 40 MG/0.4 ML (LOVENOX) SYR SQ SCH (08:24)
[2019-10-22] MEDS: METOCLOPRAMIDE INJ 10 MG/2 ML (REGLAN) IV SCH ×4 (08:25→22:29)
[2019-10-22] MEDS: PANTOPRAZOLE 40 MG (PROTONIX) VIAL IV SCH (08:25)
--- NOTE | 2019-10-22 09:47 | Occupational Ther Daily Note ---
OT Current Status-Daily Note Subjective Pt seated in recliner, telesitter present, OT introduced self to pt. Pt required moderate encouragement to participate in OT tx on this date. ADL-Treatment Therapy Code Descriptions/Definitions Functional [place] Measure: 0=Not Assessed/NA 4=Minimal Assistance 1=Total Assistance 5=Supervision or Setup 2=Maximal Assistance 6=Modified [place] 3=Moderate Assistance 7=Complete IndependenceSCALE: Activities may be completed with or without assistive devices. 2-Dxeynlqpnx-cqqalwg completes the activity by him/herself with no assistance from a helper. 5-Set-up or Clean-up Assistance-helper sets up or cleans up; patient completes activity. [place] assists only prior to or following the activity. 4-Supervision or Touching Assistance-helper provides verbal cues and/or touching/steadying and/or contact guard assistance as patient completes activity. Assistance may be provided throughout the activity or intermittently. 3-Partial/Moderate Assistance-helper does LESS THAN HALF the effort. Erhard lifts, holds or supports trunk or limbs, but provides less than half the effort. 2-Substantial/Maximal Assistance-helper does MORE THAN HALF the effort. Erhard lifts or holds trunk or limbs and provides more than half the effort. 3-Ukzcnffmj-ozpwky does ALL the effort. Patient does none of the effort to complete the activity. Or, the assistance of 2 or more helpers is required for the patient to complete the activity. If activity was not attempted, code reason: 7-Patient Refused. 9-Not Applicable-not attempted and the patient did not perform the activity before the current illness, exacerbation or injury. 10-Not Attempted due to Environmental Limitations-(lack of equipment, weather restraints, etc.). 88-Not Attempted due to Medical Conditions or Safety Concerns. Eating (QC): 7 (Pt declined taking a drink of water & OJ, and declined all food on his tray table.) Oral Hygiene (QC): 7 (OT encouraged pt to brush his teeth, pt adamently refused.) Other Treatment Pt seated in recliner, feet on floor, and elbows resting on knees with face in his hands. OT asked pt what was wrong, and he reports he doesn't feel good, OT asked pt if he felt nauseous, he declined being nauseous and reports "I just don't feel good". OT encouraged pt to wash his face, stating it may help him f eel better, pt did not respond to OT. OT gathered washcloth and handed it to pt. Pt immediately set washcloth on his tray table without washing his face. OT assisted pt with washing his face, he turned his face away from OT as she completed the task. OT set the washcloth onto the tray table. OT asked pt if he was hungry, he shook his head no, then OT asked if he was thirsty, he nodded his head yes. OT asked pt if his water or OJ sounded good, he stated he didn't know. OT picked up pt's water encouraging him to take a drink, placing the straw at his lips, pt put his lips together and turned his head away refusing the water. OT sat the water back on the tray table. Pt reports he feels like he needs to lay down, OT encouraged pt to stay in the chair but recliner back, he agreed. OT raised foot rest and cued pt to lean back into the chair with a pillow behind his head. Pt indicates he feels okay with his positioning, declining leaning the head of the recliner back. OT placed cool rag on pt's forehead asking him if it felt good, pt shrugged his shoulders. OT informed pt if he did not like it he could reach up and take it off, pt continued to leave wash cloth where it was. OT then attempted to get pt to participate in UE exercises to increase strength and endurance with tasks, pt able to squeeze his hands once but then declined any further exercises. Post OT tx, pt seated in recliner with foot rest up, call light in reach and all needs met, telesitter present. Education OT Patient Education: Correct positioning, Energy conservation, Exercise program, Modified ADL techniques, Progress toward Goal/Update tx plan, Purpose of tx/functional activities, Safety issues Teaching Recipient: Patient Teaching Methods: Demonstration, Discussion Response to Teaching: Reinforcement Needed OT Video Games Storywriter Goals Video Games Storywriter Goals Time Frame: Nov 01, 2019 Eating (QC): 6 Oral Hygiene (QC): 6 Toileting Hygiene (QC): 6 Shower/Bathe Self (QC): 6 Upper Body Dressing (QC): 6 Lower Body Dressing (QC): 6 On/Off Footwear (QC): 6 1=Demonstrate adherence to instructed precautions during ADL tasks. 2=Patient will verbalize/demonstrate understanding of assistive devices/modifications for ADL. 3=Patient will improve strength/tolerance for activity to enable patient to perform ADL's. OT Education/Plan Problem List/Assessment Assessment: Decreased Activ Tolerance, Decreased UE Strength, Impaired I ADL's, Impaired Self-Care Skills Pt would benefit from skilled OT services in order to increase pt's independence to return home safely. Discharge Recommendations Plan/Recommendations: Continue POC Treatment Plan/Plan of Care Patient would benefit from OT for education, treatment and training to promote independence in ADL's, mobility, safety and/or upper extremity function for ADL's. Plan of Care: ADL Retraining, Functional Mobility, UE Funct Exercise/Act Treatment Duration: Nov 01, 2019 Frequency: 5 times per week Estimated Hrs Per Day: .25 hour per day Rehab Potential: Fair Time/GCodes Start Time: 08:55 Stop Time: 09:10 Total Time Billed (hr/min): 15 Billed Treatment Time 1, INES RUIZ OT Oct 22, 2019 09:47
--- NOTE | 2019-10-22 10:02 | Physical Therapy Daily Note ---
PT Daily Note-Current Subjective Patient remains confused. RN in attempting to issue medication with patient refusal by not opening his mouth. Pain Numeric Pain Scale: 5-Moderate Pain Location: Lower Location Body Site: Abdomen Pain Description: Acute Comment: FLACC Mental Status Patient Orientation: Confused Attachments: Drains, Beach Catheter, IV wound vac on abdomen Transfers SCALE: Activities may be completed with or without assistive devices. 2-Brnxirxhzh-dtrmsmm completes the activity by him/herself with no assistance from a helper. 5-Set-up or Clean-up Assistance-helper sets up or cleans up; patient completes activity. [place] assists only prior to or following the activity. 4-Supervision or Touching Assistance-helper provides verbal cues and/or touching/steadying and/or contact guard assistance as patient completes activity. Assistance may be provided throughout the activity or intermittently. 3-Partial/Moderate Assistance-helper does LESS THAN HALF the effort. [place] lifts, holds or supports trunk or limbs, but provides less than half the effort. 2-Substantial/Maximal Assistance-helper does MORE THAN HALF the effort. [place] lifts or holds trunk or limbs and provides more than half the effort. 8-Gvvarpjfz-jcusdy does ALL the effort. Patient does none of the effort to complete the activity. Or, the assistance of 2 or more helpers is required for the patient to complete the activity. If activity was not attempted, code reason: 7-Patient Refused. 9-Not Applicable-not attempted and the patient did not perform the activity before the current illness, exacerbation or injury. 10-Not Attempted due to Environmental Limitations-(lack of equipment, weather restraints, etc.). 88-Not Attempted due to Medical Conditions or Safety Concerns. Roll Left & Right (QC): 1 Lying to Sitting/Side of Bed(Q: 1 Sit to Stand (QC): 2 Chair/Cfn-sx-Pliqq Xfer(QC): 2 Gait Training Does the Patient Walk?: Yes Distance: 10' Walk 10 feet (QC): 2 Gait Persons Needed: 2 Gait Assistive Device: FWW patient would not ambulate any farther and aggressively pushed his FWW forward and on the floor with his wound vac and beach attached. Both stayed adhered without incident. Exercises Seated Therapy Exercises: Long arc quads Seated Reps: 15 Assessment Patient up in recliner with chair alarm activated. Patient continues to be aggressive and agitated. SW coordinator aware. PT Senior Care Goals Senior Care Goals PT Senior Care Goals Time Frame: Nov 02, 2019 Roll Left & Right (QC): 4 Sit to Lying (QC): 4 Lying-Sitting on Side/Bed(QC): 4 Sit to Stand (QC): 4 Chair/Elr-ji-Poctj Xfer(QC): 4 Toilet Transfer (QC): 88 Car Transfer (QC): 88 Does the Patient Walk: Yes Walk 10 feet (QC): 4 Walk 50ft with 2 Turns (QC): 4 Walk 150 ft (QC): 4 Walking 10ft on Uneven Surface: 88 1 Step (curb) (QC): 88 4 Steps (QC): 88 12 Steps (QC): 88 Picking up an Object (QC): 88 Wheel 50 feet with 2 turns (QC: 9 Wheel 150 feet: 9 PT Plan Treatment/Plan Treatment Plan: Continue Plan of Care Treatment Plan: Bed Mobility, Education, Functional Activity [place], Functional Strength, Gait, Safety, Therapeutic Exercise, Transfers Treatment Duration: Nov 02, 2019 Frequency: 6 times per week Estimated Hrs Per Day: .25 hour per day Patient and/or Family Agrees t: Yes Time/GCodes Time In: 830 Time Out: 846 Total Billed Treatment Time: 16 Total Billed Treatment 1 visit FA 16 min ANSLEY ARCE PT Oct 22, 2019 10:01
--- NOTE | 2019-10-22 10:04 | Physical Therapy Rehab Re-Cert ---
PT Re-Certification Form Physical Therapy Treatment Plan: Continue Plan of Care Bed Mobility, Education, Functional Activity [place], Functional Strength, Gait, Safety, Therapeutic Exercise, Transfers Treatment Duration: November 02, 2019 Frequency: 6 times per week Estimated Hrs Per Day: .25 hour per day Patient and/or Family Agrees t: Yes Rehab Potential: Guarded compliance/confusion/agitation/aggression PT Skilled Nursing Goals Lay Out Maker Goals PT Lay Out Maker Goals Time Frame: Nov 02, 2019 Roll Left & Right (QC): 4 Sit to Lying (QC): 4 Lying-Sitting on Side/Bed(QC): 4 Sit to Stand (QC): 4 Chair/Hos-ph-Xolok Xfer(QC): 4 Toilet Transfer (QC): 88 Car Transfer (QC): 88 Does the Patient Walk: Yes Walk 10 feet (QC): 4 Walk 50ft with 2 Turns (QC): 4 Walk 150 ft (QC): 4 Walking 10ft on Uneven Surface: 88 1 Step (curb) (QC): 88 4 Steps (QC): 88 12 Steps (QC): 88 Picking up an Object (QC): 88 Wheel 50 feet with 2 turns (QC: 9 Wheel 150 feet: 9 ANSLEY ARCE PT Oct 22, 2019 10:04
[2019-10-22] MEDS: DRONABINOL 2.5 MG (MARINOL) CAP PO SCH ×2 (11:26→17:00)
--- NOTE | 2019-10-22 11:30 | Progress Note ---
Subjective Date Seen by a Provider: Oct 22, 2019 Time Seen by a Provider: 10:45 Subjective/Events-last exam doing slightly better today. more awake and alert. wound intact, area of deviltalized fascia midportion right of midline. sharply debrided and wound vac replaced. Objective Exam Vital Signs Date Time Temp Pulse Resp B/P (MAP) Pulse Ox O2 Delivery O2 Flow Rate FiO2 10/22/19 09:00 95 Room Air 1.00 10/22/19 07:13 95 Room Air 10/22/19 06:00 37.6 70 20 134/92 (106) 97 Room Air 10/22/19 02:07 95 Room Air 10/21/19 21:00 93 Nasal Cannula 1.00 10/21/19 18:55 93 Room Air 10/21/19 17:23 36.7 83 16 146/61 (89) 91 Room Air 10/21/19 14:40 95 Room Air I & O 10/22/19 07:00 Intake Total 600 ml Output Total 2125 ml Balance -1525 ml Capillary Refill : Less Than 3 SecondsLess Than 3 Seconds General Appearance: No Apparent Distress HEENT: PERRL/EOMI Neck: Full Range of Motion Respiratory: Chest Non Tender, Lungs Clear, Normal Breath Sounds Cardiovascular: Regular Rate, Rhythm Gastrointestinal: normal bowel sounds, soft, other (deviltalixed fascia right of midline 3x2cm) Extremity: Normal Capillary Refill Neurologic/Psychiatric: Alert, Disoriented Skin: Normal Color Lymphatic: No Adenopathy Results Lab Laboratory Tests 10/21/19 11:32: Lab Scanned Report Transfusion Reaction Form 10/22/19 06:25: White Blood Count 5.4, Red Blood Count 2.76L, Hemoglobin 7.8L, Hematocrit 24L, Mean Corpuscular Volume 88, Mean Corpuscular Hemoglobin 28, Mean Corpuscular Hemoglobin Concent 32, Red Cell Distribution Width 15.4H, Platelet Count 112L, Mean Platelet Volume 10.8H, Sodium Level 141, Potassium Level 3.4L, Chloride Level 114H, Carbon Dioxide Level 22, Anion Gap 5, Blood Urea Nitrogen 9, Creatinine 0.59L, Estimat Glomerular Filtration Rate > 60, BUN/Creatinine Ratio 15, Glucose Level 97, Calcium Level 7.3L, Corrected Calcium 9.1, Total Bilirubin 0.7, Aspartate Amino Transf (AST/SGOT) 59H, Alanine Aminotransferase (ALT/SGPT) 47, Alkaline Phosphatase 53, Total Protein 4.8L, Albumin 1.8L Assessment/Plan Assessment/Plan Assess & Plan/Chief Complaint SBO s/p expl lap, MARIE long segment small bowel resection. wound necrosis and dehiscence. no exposed bowel. will proceed with sharp debridement by bedside(6x4cm). continue wound VAC 2x/weekly. encourage PO. abx now with cefepime and erraxis. small area of fascia debrided. overall wound improved with much greater area of granulation tissue. Clinical Quality Measures DVT/VTE Risk/Contraindication: Risk Factor Score Per Nursin ROMAIN LOFTON MD Oct 22, 2019 11:29
--- NOTE | 2019-10-22 13:46 | NUR ---
D51/2 NS with 20 KCL pulled by this RN, but chart by MICHELLE Torres.
--- NOTE | 2019-10-22 14:08 | OPERATIVE REPORT ---
DATE OF SERVICE: 10/22/2019 ATTENDING PRIMARY CARE PHYSICIAN: Dr. Zayra Carpenter. PREOPERATIVE DIAGNOSIS: Devitalized fascia, abdominal wall 3 x 2 cm in size. POSTOPERATIVE DIAGNOSIS: Devitalized fascia, abdominal wall 3 x 2 cm in size. PROCEDURE PERFORMED: Sharp debridement of fascia, abdominal wall 3 x 2 cm in size. SURGEON: Romain Lofton MD. ANESTHESIA: None. ESTIMATED BLOOD LOSS: Minimal. FINDINGS: Wound appears significantly improved with much greater surface area of granulation tissue, only a small devitalized area mid wound, right of midline 3 x 2 cm in size. DISPOSITION: The patient tolerated the procedure well. INDICATIONS FOR PROCEDURE: The patient is a 74-year-old male status post exploratory laparotomy, lysis of adhesions, extended length of small bowel resection as well as peritoneal contamination with wound evisceration, status post opening and previous debridement of subcutaneous tissue and fascia. The wound VAC was removed today, which appears to have improved with much greater surface area of granulation tissue; however, a small area of necrotic fascia of the mid wound, right of midline approximately 3 x 2 cm in size. Overall, he is slowly improving. DESCRIPTION OF PROCEDURE: The wound VAC was removed and the devitalized tissue, which encompassed the fascia, was then sharply debrided using a sharp dissecting scissors until good healthy bleeding viable tissue was identified. The area that was debrided was approximately 3 x 2 cm in area. Good hemostasis was observed with direct pressure. Once good hemostasis was observed, the wound VAC was applied. The patient tolerated the procedure well. We will continue with the wound VAC on the same schedule of two times changed weekly and continue with antibiotics and current medical therapies. Job ID: [id number] DocumentID: [id number] Dictated Date: 10/22/2019 11:36:43 Manager Social Services Date: 10/22/2019 14:06:42 Dictated By: ROMAIN LOFTON MD
[2019-10-22 15:45] VITALS: BP 134/92
[2019-10-22 18:30] VITALS: BP 148/88
[2019-10-22 19:28] VITALS: BP 134/92
[2019-10-22 19:34] VITALS: BP 148/88
[2019-10-22] MEDS ORDERED: RT-ALBUTEROL/IPRATROPIUM 3 ML (DUONEB) VIAL INH PRN (20:00)
[2019-10-22] MEDS: MELATONIN 10 MG TABLET PO SCH (22:29)
--- NOTE | 2019-10-22 22:55 | NUR ---
PT REFUSED ORAL HS MEDICATIONS-Melatonin, Calcium, Zyprexa, X3 attempts-pt stated "I'm not taking that crap"
[2019-10-23] MEDS: D5 1/2 NS W/KCL 20 MEQ/L 1,000 ML IV SCH ×3 (00:05→21:38)
[2019-10-23] MEDS: fentaNYL INJECTION 100 MCG/2 ML AMP IVP PRN ×4 (00:07→23:44)
--- NOTE | 2019-10-23 00:10 | NUR ---
0007-PT RESTLESS ATTEMPTING TO GET OUT OF BED, PULLING ON SIU, THIS RN ATTEMPTING TO REDIRECT PT, PT HAVING FACIAL GRIMACING & IS ALSO RUBBING HIS ABDOMEN. THIS RN ASKED PT IF HE IS HURTING PT STATED "YES." PRN FENTANYL GIVEN SEE JUN 29-PT RESTING IN BED WITH EYES CLOSED
[2019-10-23] MEDS: CEFEPIME INJECTION 1,000 MG in WATER (STERILE) FOR INJECTION 10 ML IV SCH ×5 (00:15→23:46)
[2019-10-23 06:00] VITALS: BP 159/62
[2019-10-23 06:31] LABS: HEMOGLOBIN 8.1 G/DL (13.3-17.7); MEAN PLATELET VOLUME 10.3 FL (7.4-10.4); RED CELL DISTRIBUTION WIDTH 14.9 % (10.0-14.5); WHITE BLOOD COUNT 5.7 10^3/uL (4.3-11.0)
[2019-10-23 06:48] LABS: ALBUMIN 1.9 GM/DL (3.2-4.5); CHLORIDE 110 MMOL/L (98-107); POTASSIUM 3.4 MMOL/L (3.6-5.0); SODIUM 139 MMOL/L (135-145)
[2019-10-23 06:49] LABS: CALCIUM 7.1 MG/DL (8.5-10.1)
[2019-10-23 06:50] LABS: GLUCOSE 93 MG/DL (70-105)
[2019-10-23 06:51] LABS: TOTAL PROTEIN 4.9 GM/DL (6.4-8.2)
[2019-10-23 06:52] LABS: BILIRUBIN,TOTAL 0.6 MG/DL (0.1-1.0); CARBON DIOXIDE 23 MMOL/L (21-32)
[2019-10-23 06:54] LABS: ALKALINE PHOSPHATASE 54 U/L (40-136); CREATININE SERUM 0.57 MG/DL (0.60-1.30); GFR ESTIMATED > 60
[2019-10-23 06:55] LABS: BUN/CREATININE RATIO 12
[2019-10-23 06:57] LABS: ALANINE AMINOTRANSFERASE 40 U/L (0-55)
[2019-10-23] MEDS: RT-ALBUTEROL/IPRATROPIUM 3 ML (DUONEB) VIAL INH SCH ×2 (07:12→20:34)
--- NOTE | 2019-10-23 07:47 | Progress Note ---
Subjective Subjective Date Seen by Provider: Oct 23, 2019 Time Seen by Provider: 06:55 Pt awake and alert. He is still very confused. Nursing staff reports he did not take his oral medication last night and was very restless taking off the bandage over his central line multiple times. He reports taking his medication and eating okay. He did deny eating the whole plate of food but states he eats a little. He was confused at times stating "he was done with everything and tired of fighting" and mumbling things about a rodeo and something about home. He reported a headache at first, but then alter denied it. He denies any abdominal pain, but was tender in the flanks. Review of Systems General: No Chills; Appetite (Reports normal, but not eating much) HEENT: No Head Aches, No Visual Changes; Dysphasia; No Sore Throat Pulmonary: No Dyspnea; Cough (Intermittent possibly related to dysphagia ) Cardiovascular: Edema (Bilateral ankles ); No: Chest Pain, Palpitations Gastrointestinal: Abdominal Pain (Incisional and Right Flank); No: Nausea, Vomiting, Diarrhea, Constipation Genitourinary: No Other (Garzon Catheter) Musculoskeletal: back pain; No: neck pain, leg pain Neurological: Weakness, Confusion; No: Numbness Objective Exam Vital Signs Vital Signs - First Documented 10/17/19 10/17/19 10/17/19 02:05 05:20 09:21 Temp 36.2 Pulse 81 Resp 15 B/P (MAP) 143/84 (103) Pulse Ox 94 O2 Delivery Nasal Cannula O2 Flow Rate 2.00 FiO2 2 Capillary Refill : Less Than 3 SecondsLess Than 3 Seconds General Appearance: No Apparent Distress HEENT: PERRL/EOMI Neck: Full Range of Motion Respiratory: Chest Non Tender, Normal Breath Sounds Cardiovascular: Regular Rate, Rhythm, Normal Peripheral Pulses Gastrointestinal: Abnormal Bowel Sounds (Decreased x4 quadrants), Tenderness (Incisional and Bilateral Flank) Extremity: Normal Capillary Refill, No Calf Tenderness, Pedal Edema Neurologic/Psychiatric: Alert, Disoriented Skin: Normal Color Lymphatic: No Adenopathy Results Lab Laboratory Tests 10/23/19 06:25: White Blood Count 5.7, Red Blood Count 2.90L, Hemoglobin 8.1L, Hematocrit 25L, Mean Corpuscular Volume 88, Mean Corpuscular Hemoglobin 28, Mean Corpuscular Hemoglobin Concent 32, Red Cell Distribution Width 14.9H, Platelet Count 108L, Mean Platelet Volume 10.3, Sodium Level 139, Potassium Level 3.4L, Chloride Level 110H, Carbon Dioxide Level 23, Anion Gap 6, Blood Urea Nitrogen 7, Creatinine 0.57L, Estimat Glomerular Filtration Rate > 60, BUN/Creatinine Ratio 12, Glucose Level 93, Calcium Level 7.1L, Corrected Calcium 8.8, Total Bilirubin 0.6, Aspartate Amino Transf (AST/SGOT) 60H, Alanine Aminotransferase (ALT/SGPT) 40, Alkaline Phosphatase 54, Total Protein 4.9L, Albumin 1.9L Assessment/Plan Assessment/Plan Assessment and Plan SMALL BOWEL OBSTRUCTION -CONTINUE NORMAL DIET, ENCOURAGE PT TO EAT, MONITOR BOWEL MOVEMENTS -IV FLUIDS -CONSULTED DR LOFTON -S/P OPEN RESECTION -[address] -DECREASED DRAINAGE COMPARED TO PREVIOUS DAY (385ML ON 10/19, 230ML ON 10/20) -LEFT ASHLEY DRAIN WAS REMOVED 10/21 PREVIOUSLY HAD BEEN DRAINING (110ML ON 10/18, 350ML ON 10/19, 150ML ON /10/20) -RIGHT ASHLEY DRAIN REMAINS IN PLACE PREVIOUSLY DRAINING (135ML ON 10/18, 35ML ON 10/19, 80 ML ON 10/20) -ABDOMINAL TENDERNESS PEDAL EDEMA -INCREASED EDEMA TODAY -20MG LASIX BOLUS -MONITOR FOR FLUID STATUS CHANGES ALTERED MENTAL STATUS -DELIRIUM -CONTINUE OLANZAPINE -PT REFUSING ORAL MEDICATIONS CONSIDER SWITCH TO AN IV/IM MEDICATION -MONITOR SEPSIS/ LEUKOCYTOSIS -IMPROVING -CONTINUE CEFEPIME, ANIDULAFUNGIN, IV FLUIDS -ABDOMINAL INCISION CULTURED, -E. COLI, KLEBSIELLA, AND ENTEROCOCCUS CULTURES -MIDLINE INCISION WOUND VAC- MONITOR OUTPUT -SIGNIFICANT AMOUNT OF FLUID BEING DRAINED DAILY -MONITOR PULMONARY EFFUSION / POSSIBLE PNEUMONIA -CONTINUE TO MONITOR, ENCOURAGE DEEP BREATHES, SPIROMETER AND OSCILLATORY PEP USAGE -CONSIDER LASIX 20MG BOLUS -CONSIDER REPEAT CHEST X-RAY TO ASSES THROMBOCYTOPENIA -IMPROVING -POSSIBLY DUE TO HEPARIN INDUCED THROMBOCYTOPENIA -STOPPED HEPARIN ON 10/11, PLATELETS IMPROVING -ANTICOAGULATION INITIATED YESTERDAY TO PREVENT DVT, -MONITOR PLATELETS -SLIGHT DECREASE TO 108 TODAY FROM 112 YESTERDAY -PLATELETS TRENDING DOWNWARD CONSIDER CHANGING ANTICOAGULATION TO ARGATROBAN ANEMIA -HGB REMAINS LOW BUT STABLE IN 7-8 RANGE -MONITOR HGB/HCT - IRON STUDIES PERFORMED 10/15 -LOW SERUM IRON 22, LOW TIBC 131, ELEVATED FERRITIN 2591.8 -CONSIDER IRON SUPPLEMENTATION -RBC TRANSFUSION GIVEN 10/18, -PROVIDED ONLY TRANSIENT IMPROVEMENT IN HGB HYPOTENSION -IMPROVED HYPOCALCEMIA -IMPROVING -MONITOR ORAL INTAKE ELEVATED LIVER ENZYMES -IMPROVING -MONITOR ACUTE KIDNEY INJURY -IMPROVED ELEVATED LIPASE -IMPROVED GASTROPARESIS -CONTINUE REGLAN HIATAL HERNIA Clinical Quality Measures DVT/VTE Risk/Contraindication: Risk Factor Score Per Nursin Supervisory-Addendum Brief Verification & Attestation Participated in pt care: history, MDM, physical Personally performed: exam, history, MDM, supervision of care Care discussed with: Medical Student Procedures: n/a Results interpretation: Verified all documentation SMALL BOWEL OBSTRUCTION HYPOTENSION SEPSIS/ LEUKOCYTOSIS PULMONARY EFFUSION / POSSIBLE PNEUMONIA THROMBOCYTOPENIA ANEMIA HYPOCALCEMIA ELEVATED LIVER ENZYMES ACUTE KIDNEY INJURY ELEVATED LIPASE GASTROPARESIS HIATAL HERNIA SMALL BOWEL OBSTRUCTION - DR. LOFTON MANAGING PT STATUS POST PARTIAL SMALL BOWEL RESECTION - PT IS ON SWING BED STATUS - THE IV ANTIBIOTICS FOR HIS WOUND INFECTION WILL FINISH ON MONDAY. HYPOTENSION - RESOLVED SEPSIS/ LEUKOCYTOSIS -CONTINUE CEFEPIME, ANIDULAFUNGIN, IV FLUIDS -ABDOMINAL INCISION CULTURED, - E. COLI, KLEBSIELLA, AND ENTEROCOCCUS CULTURES -MIDLINE INCISION WOUND VAC HAS BEEN PLACED, WHITE COUNT NOW NORMAL PULMONARY EFFUSION / POSSIBLE PNEUMONIA - RESOLVING THROMBOCYTOPENIA -IMPROVING -POSSIBLY DUE TO HEPARIN INDUCED THROMBOCYTOPENIA -STOPPED HEPARIN ON 10/11, PLATELETS IMPROVED ALMOST TO NORMAL - LOVENOX STARTED, TO PREVENT DVT'S - CONTINUE TO CLOSELY MONITOR LABS ANEMIA -HGB PERSISTENTLY LOW STATUS POST BLOOD TRANSFUSIONS - MONITOR H AND H AND TRANSFUSE IF NEEDED - MAY NEED TO CONSIDER IV IRON IF NO IMPROVEMENT IN HGB ELEVATED LIVER ENZYMES -IMPROVING WILL CONTINUE TO MONITOR HIS INTAKE CHANGES ACUTE KIDNEY INJURY -RESOLVED WITH FLUIDS AND TIME GASTROPARESIS ON REGLAN DYSPHAGIA - SPEECH HAS EVALUATED PT AND HAS HIS ON A MODIFIED DIET DECREASED APPETITE - PT ON MARINOL - DOSE INCREASED - MONITOR SYMPTOMS - PT IS NOT TAKING PILLS WELL DELIRIUM - STARTED ON ZYPREXA - HE SEEMS TO BE MORE ALERT, CONTINUE WITH CURRENT MANAGEMENT AND HOPEFULLY WITH TIME AND TREATMENT PT WILL SHOW RESOLUTION. LOOSE STOOL - PT NOT TAKING HIS PO MEDICATIONS WELL- HE HAS NOT BEEN INGESTING HIS PROBIOTICS - NEGATIVE FOR CDIFF I HAVE TALKED TO HIS - SHE HAD INITIALLY BEEN IN AGREEMENT FOR PLACEMENT AT PRISON, BUT HAS SINCE INDICATED HER DISPLEASURE AT THE IDEA OF TAMIKA GOING TO A PRISON ON DISCHARGE SINCE SHE HAD A BAD EXPERIENCE WITH HER FATHER AT A FACILITY. NILSA AGUIRRE Oct 23, 2019 07:47 TITA LAINEZ MD Oct 23, 2019 09:28
[2019-10-23] MEDS: DRONABINOL 2.5 MG (MARINOL) CAP PO SCH ×2 (09:53→17:50)
[2019-10-23] MEDS: OLANZapine 2.5 MG (ZyPREXA) TAB PO SCH ×2 (09:53→20:33)
[2019-10-23] MEDS: oxyCODONE/APAP 7.5-325 MG (PERCOCET 7.5) TABLET PO PRN ×2 (09:53→17:52)
[2019-10-23] MEDS: PANTOPRAZOLE 40 MG (PROTONIX) TAB PO SCH (09:53)
[2019-10-23] MEDS: ENOXAPARIN 40 MG/0.4 ML (LOVENOX) SYR SQ SCH (09:54)
--- NOTE | 2019-10-23 10:04 | Occupational Ther Daily Note ---
OT Current Status-Daily Note Subjective Pt laying in bed, OT introduced self to pt, he did not respond to OT. Pt did not verbalize any pain during tx. ADL-Treatment Therapy Code Descriptions/Definitions Functional [place] Measure: 0=Not Assessed/NA 4=Minimal Assistance 1=Total Assistance 5=Supervision or Setup 2=Maximal Assistance 6=Modified [place] 3=Moderate Assistance 7=Complete IndependenceSCALE: Activities may be completed with or without assistive devices. 8-Dbpidmixob-hlimguw completes the activity by him/herself with no assistance from a helper. 5-Set-up or Clean-up Assistance-helper sets up or cleans up; patient completes activity. [place] assists only prior to or following the activity. 4-Supervision or Touching Assistance-helper provides verbal cues and/or touching/steadying and/or contact guard assistance as patient completes activity. Assistance may be provided throughout the activity or intermittently. 3-Partial/Moderate Assistance-helper does LESS THAN HALF the effort. [place] lifts, holds or supports trunk or limbs, but provides less than half the effort. 2-Substantial/Maximal Assistance-helper does MORE THAN HALF the effort. [place] lifts or holds trunk or limbs and provides more than half the effort. 0-Sffnvhvol-uokwdr does ALL the effort. Patient does none of the effort to complete the activity. Or, the assistance of 2 or more helpers is required for the patient to complete the activity. If activity was not attempted, code reason: 7-Patient Refused. 9-Not Applicable-not attempted and the patient did not perform the activity before the current illness, exacerbation or injury. 10-Not Attempted due to Environmental Limitations-(lack of equipment, weather restraints, etc.). 88-Not Attempted due to Medical Conditions or Safety Concerns. Eating (QC): 7 (Pt declined taking a drink of water during tx.) Oral Hygiene (QC): 2 (Pt handed oral swab, he brought swab to mouth and put the stick into his mouth and began chewing on stick. OT turned the swab around where the foam was in his mouth, pt then sucked/chewed on swab but did not move in any brushing movements. OT attempted to assist pt but he refused.) Other Treatment Pt laying in bed, OT encouraged pt to brush his teeth. OT provided pt with a foam swab for oral hygiene, pt put the stick portion of swab in his mouth and be sherrie sucking/chewing. OT told pt he had the wrong side in his mouth but pt did not correct task. OT then took swab and turned to where the foam was in his mouth, pt again began to suck/chew on the foam but did not move in a brushing motion. OT attempted to assist pt with brushing but he refused and said he was done. OT then encouraged pt to take a drink of his water, but pt declined. Pt pulled covers up, OT asked pt if he was cold, pt did not respond. OT gathered hospital gown and encouraged pt to put gown on in order to warm him up. OT held open L sleeve and pt able to reach forward and thread L arm. OT then assisted pt with threading R arm into sleeve and pulling gown up his arms, then tucking gown under his sheets in bed. OT encouraged pt to participate in UE exercise in order to increase functional endurance and strength. OT demo'd flexing/extending fingers in order to make a fist. Pt looked at OT and extended his fingers on his hand open and reached towards OT's face. OT told pt that this is not the appro priate exercise, pt laughed and said it would be more fun. Pt refused to complete further UE exercises. Post OT tx, pt laying in bed, call light in reach and all needs met, nurse present. Education OT Patient Education: Correct positioning, Energy conservation, Exercise program, Modified ADL techniques, Progress toward Goal/Update tx plan, Purpose of tx/functional activities Teaching Recipient: Patient Teaching Methods: Demonstration, Discussion Response to Teaching: Reinforcement Needed OT Skilled Nursing Goals Battery Container Inspector Goals Time Frame: Nov 01, 2019 Eating (QC): 6 Oral Hygiene (QC): 6 Toileting Hygiene (QC): 6 Shower/Bathe Self (QC): 6 Upper Body Dressing (QC): 6 Lower Body Dressing (QC): 6 On/Off Footwear (QC): 6 1=Demonstrate adherence to instructed precautions during ADL tasks. 2=Patient will verbalize/demonstrate understanding of assistive devices/modifications for ADL. 3=Patient will improve strength/tolerance for activity to enable patient to perform ADL's. OT Education/Plan Problem List/Assessment Assessment: Decreased Activ Tolerance, Decreased UE Strength, Impaired Bed Mobility, Impaired Funct Balance, Impaired I ADL's, Impaired Self-Care Skills, Restricted Funct UE ROM Pt would benefit from skilled OT services in order to increase pt's independence to return home safely. Discharge Recommendations Plan/Recommendations: Continue POC Treatment Plan/Plan of Care Patient would benefit from OT for education, treatment and training to promote independence in ADL's, mobility, safety and/or upper extremity function for ADL's. Plan of Care: ADL Retraining, Functional Mobility, UE Funct Exercise/Act Treatment Duration: Nov 01, 2019 Frequency: 5 times per week Estimated Hrs Per Day: .25 hour per day Rehab Potential: Guarded Time/GCodes Start Time: 09:35 Stop Time: 09:53 Total Time Billed (hr/min): 18 Billed Treatment Time 1, INES RUIZ OT Oct 23, 2019 10:04
[2019-10-23] MEDS: METOCLOPRAMIDE INJ 10 MG/2 ML (REGLAN) IV SCH ×4 (10:07→20:34)
[2019-10-23] MEDS: POTASSIUM CL 10MEQ/50ML IVPB 50 ML IV SCH ×4 (10:11→12:20)
[2019-10-23] MEDS: ANIDULAFUNGIN INJECTION 100 MG in NS (IVPB) 100 ML IV SCH (10:11)
--- NOTE | 2019-10-23 12:50 | Progress Note ---
Subjective Date Seen by a Provider: Oct 23, 2019 Time Seen by a Provider: 12:45 Subjective/Events-last exam doing ok. still confused but not combative. confusion seems worse at night. tolerating diet but no appetite. loose BM's. vac in place. Objective Exam Vital Signs Date Time Temp Pulse Resp B/P (MAP) Pulse Ox O2 Delivery O2 Flow Rate FiO2 10/23/19 07:13 93 Room Air 10/23/19 06:00 37.5 78 16 159/62 (94) 97 Room Air 10/22/19 20:00 Room Air 10/22/19 19:34 37.2 76 18 148/88 (108) 96 Room Air 10/22/19 19:28 37.6 105 91 21 10/22/19 19:01 91 Room Air 10/22/19 18:30 37.2 76 18 148/88 (108) 96 Room Air 10/22/19 15:45 37.6 70 92 21 10/22/19 14:25 92 Room Air I & O 10/23/19 07:00 Intake Total 1370 ml Output Total 1763 ml Balance -393 ml Capillary Refill : Less Than 3 SecondsLess Than 3 Seconds General Appearance: No Apparent Distress HEENT: PERRL/EOMI Neck: Full Range of Motion Respiratory: Chest Non Tender, Normal Breath Sounds Cardiovascular: Regular Rate, Rhythm Gastrointestinal: normal bowel sounds, soft, other (vac in place, no new area redness/erythema) Extremity: Normal Capillary Refill Neurologic/Psychiatric: Alert Skin: Normal Color Lymphatic: No Adenopathy Results Lab Laboratory Tests 10/23/19 06:25: White Blood Count 5.7, Red Blood Count 2.90L, Hemoglobin 8.1L, Hematocrit 25L, Mean Corpuscular Volume 88, Mean Corpuscular Hemoglobin 28, Mean Corpuscular Hemoglobin Concent 32, Red Cell Distribution Width 14.9H, Platelet Count 108L, Mean Platelet Volume 10.3, Sodium Level 139, Potassium Level 3.4L, Chloride Level 110H, Carbon Dioxide Level 23, Anion Gap 6, Blood Urea Nitrogen 7, Creatinine 0.57L, Estimat Glomerular Filtration Rate > 60, BUN/Creatinine Ratio 12, Glucose Level 93, Calcium Level 7.1L, Corrected Calcium 8.8, Magnesium Level 1.5L, Total Bilirubin 0.6, Aspartate Amino Transf (AST/SGOT) 60H, Alanine Aminotransferase (ALT/SGPT) 40, Alkaline Phosphatase 54, Total Protein 4.9L, Albumin 1.9L Microbiology 10/23/19 C. difficile GDH Antigen & Toxins - Final, Complete Assessment/Plan Assessment/Plan Assess & Plan/Chief Complaint SBO s/p expl lap, MARIE long segment small bowel resection. wound necrosis and dehiscence. no exposed bowel. will proceed with sharp debridement by bedside(6x4cm). continue wound VAC 2x/weekly. encourage PO. abx now with cefepime and erraxis. small area of fascia debrided. overall wound improved with much greater area of granulation tissue. family now amenable to SNF. Clinical Quality Measures DVT/VTE Risk/Contraindication: Risk Factor Score Per Nursin ROMAIN LOFTON MD Oct 23, 2019 12:50
--- NOTE | 2019-10-23 13:44 | NUR ---
CM/SS: Visited with pt and spouse as to plan for discharge Plan: Undetermined at this time Summary: Pt is in bed with his lunch tray in front of him. He only drinks a few sips from his ensure and his cola drink. Spouse is at the bedside assisting the pt with his lunch. Talk with daughter as to her conversation with the physician. Daughter is frustrated with the entire process with the pt and wants to stay in the hospital and for him not to be discharged from the hospital. Addendum: 10/23/19 at 1526 by MAHESH RANGEL SS Spouse shares that she wants to speak to Dr. Carpenter and that she wants proof in writing from Medicare that the pt needs to leave. This worker explains that she does not have the information as to Medicare. Spouse is then angry that this worker is asking her about choosing a facility. She provides lots of stories about [facility] and her parents as well as other stories about other facilities in [facility]. She does not want to give this worker the name of one to refer pt. She continues to vent about hospital stay, food from dietary, pt's eating, information from surgeon and the primary physician, as well as the [facility] services. Spouse then is able to give the Ok for this worker to refer [facility] and that just because it is sent, that does not mean that pt will be going. This worker explains that by making the referral we will determine if they have room and can meet the needs of the pt. Spouse then shares she would agree that pt could go, IF he could only stay for 2 weeks. This worker shares she can not say that as it is hard to determine. Spouse request that this worker contact [place] in [place], process explained about getting services, and the delay. Spouse then share that she will be in touch with the physician as to the discharge for later this week. Again she shares she wants pt to remain another week at the hospital. This worker will follow up.
--- NOTE | 2019-10-23 14:36 | Physical Therapy Daily Note ---
PT Daily Note-Current Subjective Pt asleep supine in bed upon arrival to room, present at bedside. Pt requires multiple attempts to arouse, when PT introduced, pt immediately closed eyes and refused to open again. Pt reports that he was recently given pain medication which "knocks him out for at least 4 hours". When asked about pain, pt refuses to respond. Appearance Pt supine in bed with present at bedside following session. Call light and tray within reach, all needs met. Mental Status Attachments: Garzon Catheter, Other-See Comments (wound vac), IV Transfers SCALE: Activities may be completed with or without assistive devices. 7-Buuxxzyncj-wudvpwa completes the activity by him/herself with no assistance from a helper. 5-Set-up or Clean-up Assistance-helper sets up or cleans up; patient completes activity. [place] assists only prior to or following the activity. 4-Supervision or Touching Assistance-helper provides verbal cues and/or touching/steadying and/or contact guard assistance as patient completes activity. Assistance may be provided throughout the activity or intermittently. 3-Partial/Moderate Assistance-helper does LESS THAN HALF the effort. [place] lifts, holds or supports trunk or limbs, but provides less than half the effort. 2-Substantial/Maximal Assistance-helper does MORE THAN HALF the effort. [place] lifts or holds trunk or limbs and provides more than half the effort. 3-Yptpocqfq-nfmnwd does ALL the effort. Patient does none of the effort to complete the activity. Or, the assistance of 2 or more helpers is required for the patient to complete the activity. If activity was not attempted, code reason: 7-Patient Refused. 9-Not Applicable-not attempted and the patient did not perform the activity before the current illness, exacerbation or injury. 10-Not Attempted due to Environmental Limitations-(lack of equipment, weather restraints, etc.). 88-Not Attempted due to Medical Conditions or Safety Concerns. Exercises Supine Ex: Ankle pumps, Heel Slides, Short Arc Quads, Hip abd/add Supine Reps: 10 Pt only attempted to perform ankle pumps, the rest of the exercises were completed with AAROM/PROM. Pt then began to actively resist motion, preventing PT from actively assisting supine exercises. Treatments Pt difficult to keep awake during session, pt refusing any OOB activity by re fusing to open eyes and engage in any communication. PT began to have pt complete supine bed exercises to have pt engage in treatment session, and initially pt completed ankle pumps x 10 each, then when asked to complete heel slides he returned to ignoring PT and acting like he was asleep. PT then assisted pt in hip abd/add, SAQ, and heel slides. Pt began actively resisting heel slides and telling PT that "he was done with this BS." Pt states that pt should be left to rest, as he recently had a pain pill and those "knock him out". Pt left supine in bed with call light and tray within reach, all needs met. Assessment Current Status: Poor Progress Pt refusing to actively engage in therapy session, will continue to progress pt as tolerated. PT Chcf Goals Chcf Goals PT Chcf Goals Time Frame: Nov 02, 2019 Roll Left & Right (QC): 4 Sit to Lying (QC): 4 Lying-Sitting on Side/Bed(QC): 4 Sit to Stand (QC): 4 Chair/Wmr-he-Irqaz Xfer(QC): 4 Toilet Transfer (QC): 88 Car Transfer (QC): 88 Does the Patient Walk: Yes Walk 10 feet (QC): 4 Walk 50ft with 2 Turns (QC): 4 Walk 150 ft (QC): 4 Walking 10ft on Uneven Surface: 88 1 Step (curb) (QC): 88 4 Steps (QC): 88 12 Steps (QC): 88 Picking up an Object (QC): 88 Wheel 50 feet with 2 turns (QC: 9 Wheel 150 feet: 9 PT Plan Problem List Problem List: Activity Tolerance, Functional Strength, Safety, Balance, Gait, Transfer, Bed Mobility, ROM Treatment/Plan Treatment Plan: Continue Plan of Care Treatment Plan: Bed Mobility, Education, Functional Activity [place], Functional Strength, Gait, Safety, Therapeutic Exercise, Transfers Treatment Duration: Nov 02, 2019 Frequency: 6 times per week Estimated Hrs Per Day: .25 hour per day Patient and/or Family Agrees t: Yes Time/GCodes Time In: 1415 Time Out: 1430 Total Billed Treatment Time: 15 Total Billed Treatment 1 visit 1 FA (15 min) KRYS ALEJANDRO PT Oct 23, 2019 14:36
--- NOTE | 2019-10-23 15:23 | Speech Therapy Daily Note ---
Speech Daily Progress Note Subjective Date Seen by Provider: Oct 23, 2019 Time Seen by Provider: 00:15 Patient was up in recliner, continues to be confused. Objective Patient demo small sips via straw without difficulty at 80% with moderate cues. Assessment Assessment Current Status: Fair Progress Treatment Plan Continue Plan of Care Speech Short Term Goals Short Term Goals Short Term Goals 1) Patient will tolerate least restrictive diet level without s/s of aspiration at 80% given minimal cuing. 2) Patient/caregiver will utilize compensatory strategies as trained for safe oral intake at 90% or greater with minimal cuing. Speech Half-Way Goals Composite Engineer Goals Patient will maintain adequate nutrition/hydration via safe effective swallow function. Speech-Plan Patient/Family Goals Patient/Family Goals: Patient's discharge plans are unknown at this time. Treatment Plan Speech Therapy Treatment Plan: Continue Plan of Care Treatment Duration: Oct 25, 2019 Frequency: 3 times per week Estimated Hrs Per Day: .25 hour per day Rehab Potential: Guarded Barriers to Learning: Patient's level of confusion, requires encouragement to participate Pt/Family Agrees to Plan: Yes Safety Risks/Education Teaching Recipient: Patient Teaching Methods: Discussion Response to Teaching: Reinforcement Needed Education Topics Provided: Continued safety with oral intake Time Speech Therapy Time In: 11:45 Speech Therapy Time Out: 12:00 Total Billed Time: 15 Billed Treatment Time 1, JAE Amaya Oct 23, 2019 15:22
[2019-10-23 18:59] VITALS: BP 136/90
[2019-10-23] MEDS: MELATONIN 10 MG TABLET PO SCH (20:33)
[2019-10-24] MEDS: fentaNYL INJECTION 100 MCG/2 ML AMP IVP PRN (02:31)
[2019-10-24] MEDS: CEFEPIME INJECTION 1,000 MG in WATER (STERILE) FOR INJECTION 10 ML IV SCH ×2 (04:59→11:40)
[2019-10-24 06:33] VITALS: BP 149/84
[2019-10-24] MEDS: RT-ALBUTEROL/IPRATROPIUM 3 ML (DUONEB) VIAL INH SCH ×2 (06:57→20:11)
--- NOTE | 2019-10-24 07:20 | Progress Note ---
Subjective Subjective Date Seen by Provider: Oct 24, 2019 Time Seen by Provider: 07:00 Pt resting, easily aroused, he does drift off closing his eyes if not constantly engaged. Nursing staff reports he did better last night eventually getting some sleep and not messing with his catheter bandage as much. His brought in some outside food that the pt reports he ate a little bit. He did take his oral medications last night. He denies any pain but is [employer] in the abdomen. He has been having lebron liquid stools that were C. Diff negative. The pt is unaware he is having BM when they happen with the sitter reporting he had a large gas movement that was accompanied by stool, and the pt said he passed gas but did not know he had stool along with it. Review of Systems General: No Chills; Appetite (Reports normal, but not eating much) HEENT: No Head Aches, No Visual Changes; Dysphasia; No Sore Throat Pulmonary: No Dyspnea; Cough (Intermittent possibly related to dysphagia ) Cardiovascular: Edema (Bilateral LE); No: Chest Pain, Palpitations Gastrointestinal: Abdominal Pain (Incisional and Bilateral Flanks); No: Nausea, Vomiting, Diarrhea, Constipation Genitourinary: No Other (Garzon Catheter) Musculoskeletal: back pain; No: neck pain, leg pain Neurological: Weakness, Confusion; No: Numbness Objective Exam Vital Signs Vital Signs - First Documented 10/18/19 10/18/19 10/19/19 10/22/19 03:00 05:13 09:00 15:45 Temp 37.0 Pulse 80 Resp 18 B/P (MAP) 140/75 (96) Pulse Ox 92 O2 Delivery Room Air O2 Flow Rate 2.00 FiO2 21 Capillary Refill : Less Than 3 SecondsLess Than 3 Seconds General Appearance: No Apparent Distress HEENT: PERRL/EOMI Neck: Full Range of Motion Respiratory: Chest Non Tender, Normal Breath Sounds Cardiovascular: Regular Rate, Rhythm, Normal Peripheral Pulses Gastrointestinal: No Soft (Increaed tightness of abdominal muscles); Abnormal Bowel Sounds (Decreased x4 quadrants), Tenderness (Incisional and Bilateral Flank) Extremity: Normal Capillary Refill Neurologic/Psychiatric: Alert Skin: Normal Color Lymphatic: No Adenopathy Results Lab Laboratory Tests 10/23/19 15:30: Glucometer 86 Microbiology 10/23/19 C. difficile [facility] Antigen & Toxins - Final, Complete Assessment/Plan Assessment/Plan Assessment and Plan SMALL BOWEL OBSTRUCTION -CONTINUE NORMAL DIET, ENCOURAGE PT TO EAT, MONITOR BOWEL MOVEMENTS -IV FLUIDS -CONSULTED DR LOFTON -S/P OPEN RESECTION -[address] -LEFT ASHLEY DRAIN WAS REMOVED 10/21 PREVIOUSLY HAD BEEN DRAINING (110ML ON 10/18, 350ML ON 10/19, 150ML ON /10/20) -RIGHT ASHLEY DRAIN REMAINS IN PLACE MINIMAL DRAINAGE -ABDOMINAL TENDERNESS PEDAL EDEMA -INCREASED EDEMA TODAY -20MG LASIX -MONITOR FOR FLUID STATUS CHANGES ALTERED MENTAL STATUS -DELIRIUM -CONTINUE OLANZAPINE -PT REFUSES ORAL MEDICATIONS AT TIMES -MONITOR SEPSIS/ LEUKOCYTOSIS -IMPROVING -CONTINUE CEFEPIME, ANIDULAFUNGIN, IV FLUIDS -ABDOMINAL INCISION CULTURED, -E. COLI, KLEBSIELLA, AND ENTEROCOCCUS CULTURES -MIDLINE INCISION WOUND VAC- MONITOR OUTPUT, -100ML DRAINED OVERNIGHT -MONITOR THROMBOCYTOPENIA -IMPROVING -POSSIBLY DUE TO HEPARIN INDUCED THROMBOCYTOPENIA -STOPPED HEPARIN ON 10/11, PLATELETS IMPROVING -ANTICOAGULATION INITIATED 10/20 TO PREVENT DVT -MONITOR PLATELETS -SLIGHT DECREASE TO 108 TODAY FROM 112 YESTERDAY -PLATELETS TRENDING DOWNWARD CONSIDER CHANGING ANTICOAGULATION TO ARGATROBAN HYPOMAGNESIUM -SUPPLEMENT MAGNESIUM -MONITOR ANEMIA -HGB REMAINS LOW BUT STABLE IN 7-8 RANGE -MONITOR HGB/HCT - IRON STUDIES PERFORMED 10/15 -LOW SERUM IRON 22, LOW TIBC 131, ELEVATED FERRITIN 2591.8 -CONSIDER IRON SUPPLEMENTATION -RBC TRANSFUSION GIVEN 10/18, -PROVIDED ONLY TRANSIENT IMPROVEMENT IN HGB PULMONARY EFFUSION / POSSIBLE PNEUMONIA -IMPROVED -CONTINUE TO MONITOR, ENCOURAGE DEEP BREATHES, SPIROMETER AND OSCILLATORY PEP USAGE HYPOTENSION -IMPROVED HYPOCALCEMIA -IMPROVING -MONITOR ORAL INTAKE ELEVATED LIVER ENZYMES -IMPROVING -MONITOR ACUTE KIDNEY INJURY -IMPROVED ELEVATED LIPASE -IMPROVED GASTROPARESIS -HOLD REGLAN DUE TO LOOSE STOOLS HIATAL HERNIA Clinical Quality Measures DVT/VTE Risk/Contraindication: Risk Factor Score Per Nursin Supervisory-Addendum Brief Verification & Attestation Participated in pt care: history, MDM, physical Personally performed: exam, history, MDM, supervision of care Care discussed with: Medical Student Procedures: n/a Results interpretation: Verified all documentation SMALL BOWEL OBSTRUCTION HYPOTENSION SEPSIS/ LEUKOCYTOSIS PULMONARY EFFUSION / POSSIBLE PNEUMONIA THROMBOCYTOPENIA ANEMIA HYPOCALCEMIA ELEVATED LIVER ENZYMES ACUTE KIDNEY INJURY ELEVATED LIPASE GASTROPARESIS HIATAL HERNIA SMALL BOWEL OBSTRUCTION - DR. LOFTON MANAGING PT STATUS POST PARTIAL SMALL BOWEL RESECTION - PT IS ON SWING BED STATUS - THE IV ANTIBIOTICS FOR HIS WOUND INFECTION WILL FINISH ON MONDAY. HYPOTENSION - RESOLVED SEPSIS/ LEUKOCYTOSIS -CONTINUE CEFEPIME, ANIDULAFUNGIN, IV FLUIDS -ABDOMINAL INCISION CULTURED, - E. COLI, KLEBSIELLA, AND ENTEROCOCCUS -MIDLINE INCISION WOUND VAC HAS BEEN PLACED, WHITE COUNT NOW NORMAL -PERSISTENT AND CONSISTENT AMOUNT OF DRAINAGE FROM WOUND VAC PULMONARY EFFUSION / POSSIBLE PNEUMONIA - RESOLVING THROMBOCYTOPENIA -IMPROVING -POSSIBLY DUE TO HEPARIN INDUCED THROMBOCYTOPENIA -STOPPED HEPARIN ON 10/11, PLATELETS IMPROVED ALMOST TO NORMAL - LOVENOX STARTED, TO PREVENT DVT'S - CONTINUE TO CLOSELY MONITOR LABS ANEMIA -HGB PERSISTENTLY LOW STATUS POST BLOOD TRANSFUSIONS - BUT STABLE AT 8 - MONITOR H AND H AND TRANSFUSE IF NEEDED -- WILL GIVE IV IRON TODAY ELEVATED LIVER ENZYMES -IMPROVING WILL CONTINUE TO MONITOR HIS INTAKE CHANGES ACUTE KIDNEY INJURY -RESOLVED WITH FLUIDS AND TIME GASTROPARESIS ON REGLAN DYSPHAGIA - SPEECH HAS EVALUATED PT AND HAS HIS ON A MODIFIED DIET DECREASED APPETITE - PT ON MARINOL - DOSE INCREASED - MONITOR SYMPTOMS - PT IS NOT TAKING PILLS WELL DELIRIUM - STARTED ON ZYPREXA - HE SEEMS TO BE MORE ALERT, CONTINUE WITH CURRENT MANAGEMENT AND HOPEFULLY WITH TIME AND TREATMENT PT WILL SHOW RESOLUTION. LOOSE STOOL - PT NOT TAKING HIS PO MEDICATIONS WELL- HE HAS NOT BEEN INGESTING HIS PROBIOTICS - NEGATIVE FOR CDIFF I HAVE TALKED TO HIS - SHE HAD INITIALLY BEEN IN AGREEMENT FOR PLACEMENT AT INTERMEDIATE, BUT HAS SINCE INDICATED HER DISPLEASURE AT THE IDEA OF TAMIKA GOING TO A INTERMEDIATE ON DISCHARGE SINCE SHE HAD A BAD EXPERIENCE WITH HER FATHER AT A FACILITY. I TALKED AGAIN TO GERONIMO AFTER READING THROUGH [employer]IST NOTES WELL A DISCUSSION WITH DR. LOFTON. TAMIKA IS STABLE, DOES NOT NEED HOSPITALIZATION FOR FLUIDS OR IV PAIN MEDS, OR IV ANTIBIOTICS AFTER MONDAY. HE HAS A WOUND VAC AND IS DIFFICULT TO MANAGE FROM A BOWEL REGIMEN STANDPOINT, BUT HE DOES NOT NEED TO BE IN THIS ACUTE HOSPITAL SETTING. HE MAY, HOWEVER, BENEFIT FROM [facility] OR HE MAY BENEFIT FROM THE INTERMEDIATE FOR REHABILITATION IF NOT ACCEPTED AT [facility]. SHE WAS UPSET/ANGRY WITH ME AND INDICATED THAT SHE WAS WORKING ON OTHER OPTIONS, [facility]ALLY [facility] [place] [facility]. I ASKED HER HOW SHE WOULD MANAGE TO GET HIM INTO [facility] SINCE A TRANSFER USUALLY REQUIRED A PHYSICIAN TO ACCEPT THE PATIENT FOR ADMISSION AND SHE TOLD ME SHE WOULD GET AN AMBULANCE AND TAKE HIM TO THE EMERGENCY DEPARTMENT IF SHE HAD TO. NILSA AGUIRRE Oct 24, 2019 07:20 TITA LAINEZ MD Oct 24, 2019 09:41
[2019-10-24 07:53] LABS: MEAN PLATELET VOLUME 10.9 FL (7.4-10.4); RED CELL DISTRIBUTION WIDTH 15.1 % (10.0-14.5); WHITE BLOOD COUNT 5.3 10^3/uL (4.3-11.0)
[2019-10-24 08:07] LABS: ALBUMIN 1.9 GM/DL (3.2-4.5); CHLORIDE 110 MMOL/L (98-107)
[2019-10-24 08:08] LABS: POTASSIUM 3.5 MMOL/L (3.6-5.0); SODIUM 140 MMOL/L (135-145)
[2019-10-24 08:10] LABS: CALCIUM 7.2 MG/DL (8.5-10.1); GLUCOSE 96 MG/DL (70-105); TOTAL PROTEIN 4.8 GM/DL (6.4-8.2)
[2019-10-24 08:11] LABS: CARBON DIOXIDE 24 MMOL/L (21-32)
[2019-10-24 08:12] LABS: BILIRUBIN,TOTAL 0.5 MG/DL (0.1-1.0)
[2019-10-24 08:13] LABS: ALKALINE PHOSPHATASE 51 U/L (40-136)
[2019-10-24 08:14] LABS: CREATININE SERUM 0.57 MG/DL (0.60-1.30); GFR ESTIMATED > 60
[2019-10-24 08:15] LABS: BUN/CREATININE RATIO 11
[2019-10-24 08:16] LABS: ALANINE AMINOTRANSFERASE 36 U/L (0-55)
[2019-10-24] MEDS: ENOXAPARIN 40 MG/0.4 ML (LOVENOX) SYR SQ SCH (08:45)
[2019-10-24] MEDS: ANIDULAFUNGIN INJECTION 100 MG in NS (IVPB) 100 ML IV SCH (08:45)
[2019-10-24] MEDS: OLANZapine 2.5 MG (ZyPREXA) TAB PO SCH ×2 (08:45→21:19)
[2019-10-24] MEDS: PANTOPRAZOLE 40 MG (PROTONIX) TAB PO SCH (08:45)
[2019-10-24] MEDS: METOCLOPRAMIDE INJ 10 MG/2 ML (REGLAN) IV SCH ×2 (08:45→13:16)
[2019-10-24] MEDS ORDERED: NS IV 500 ML 500 ML IV SCH (09:33)
--- NOTE | 2019-10-24 09:43 | Physical Therapy Daily Note ---
PT Daily Note-Current Subjective Patient in bed, physician present, patient incontinent BM from back to feet and is unaware. Patient does not respond verbally to physician. Mental Status Patient Orientation: Confused Attachments: Drains, Garzon Catheter, IV wound vac abdomen Transfers SCALE: Activities may be completed with or without assistive devices. 0-Oyskycnbho-ehqjffn completes the activity by him/herself with no assistance from a helper. 5-Set-up or Clean-up Assistance-helper sets up or cleans up; patient completes activity. [place] assists only prior to or following the activity. 4-Supervision or Touching Assistance-helper provides verbal cues and/or touching/steadying and/or contact guard assistance as patient completes activity. Assistance may be provided throughout the activity or intermittently. 3-Partial/Moderate Assistance-helper does LESS THAN HALF the effort. [place] lifts, holds or supports trunk or limbs, but provides less than half the effort. 2-Substantial/Maximal Assistance-helper does MORE THAN HALF the effort. [place] lifts or holds trunk or limbs and provides more than half the effort. 1-Wuffjvpuf-senplm does ALL the effort. Patient does none of the effort to complete the activity. Or, the assistance of 2 or more helpers is required for the patient to complete the activity. If activity was not attempted, code reason: 7-Patient Refused. 9-Not Applicable-not attempted and the patient did not perform the activity before the current illness, exacerbation or injury. 10-Not Attempted due to Environmental Limitations-(lack of equipment, weather restraints, etc.). 88-Not Attempted due to Medical Conditions or Safety Concerns. Roll Left & Right (QC): 1 Lying to Sitting/Side of Bed(Q: 1 Sit to Stand (QC): 2 Chair/Ndc-pv-Ykbqc Xfer(QC): 2 assist of 2 for patient safety and due to patient confusion and refusing to ambulate with FWW Gait Training Distance: 5' Gait Assistive Device: FWW extended UE's then releases FWW and refuses to attempt to ambulate farther. Exercises Supine Ex: Ankle pumps, Heel Slides, Straight leg raise Supine Reps: 8 (PROM with patient then resisting all ROM) Seated Therapy Exercises: Long arc quads Seated Reps: 12 (AAROM then increase in resistance then ceases all ROM) Treatments Patient does not actively participate with skilled therapy. Patient is confused and becomes agitated when given direction to perform gross motor tasks. Patient requires dependent to max assist of 2 for all mobility with patient resisting. Patient appears to be unaware of incontinence BM requiring dependent assist of 2 to cleanse and change. Assessment Patient not progressing with therapy due to noncompliance, resistance, confusion and agitation. PT will continue to address gross motor skills and goals as patient and family allow. PT Instrument Sterilizer Goals Instrument Sterilizer Goals PT Instrument Sterilizer Goals Time Frame: Nov 02, 2019 Roll Left & Right (QC): 4 Sit to Lying (QC): 4 Lying-Sitting on Side/Bed(QC): 4 Sit to Stand (QC): 4 Chair/Zmd-ow-Qcdry Xfer(QC): 4 Toilet Transfer (QC): 88 Car Transfer (QC): 88 Does the Patient Walk: Yes Walk 10 feet (QC): 4 Walk 50ft with 2 Turns (QC): 4 Walk 150 ft (QC): 4 Walking 10ft on Uneven Surface: 88 1 Step (curb) (QC): 88 4 Steps (QC): 88 12 Steps (QC): 88 Picking up an Object (QC): 88 Wheel 50 feet with 2 turns (QC: 9 Wheel 150 feet: 9 PT Plan Treatment/Plan Treatment Plan: Continue Plan of Care Treatment Plan: Bed Mobility, Education, Functional Activity [place], Functional Strength, Gait, Safety, Therapeutic Exercise, Transfers Treatment Duration: Nov 02, 2019 Frequency: 6 times per week Estimated Hrs Per Day: .25 hour per day Patient and/or Family Agrees t: Yes Time/GCodes Time In: 843 Time Out: 859 Total Billed Treatment Time: 16 Total Billed Treatment 1 visit FA 16 min ANSLEY ARCE PT Oct 24, 2019 09:43
[2019-10-24] MEDS ORDERED: IRON DEXTRAN INJECTION 1,000 MG in NS (IVPB) 250 ML IV ONE (09:45)
[2019-10-24] MEDS ORDERED: HYDROCORTISONE 100 MG/2 ML (Solu-CORTEF) VIAL IV PRN (09:45)
[2019-10-24] MEDS ORDERED: EPINEPHrine INJECTION 1 MG/ML AMP IM PRN (09:45)
[2019-10-24] MEDS ORDERED: IRON DEXTRAN INJECTION 25 MG in NS (IVPB) 5.75 ML IV ONE (09:45)
--- NOTE | 2019-10-24 10:20 | NUR ---
CM/SS: Visited with physician as to discharge plan. Plan: Undetermined at this time Summary: Physician was able to talk with spouse of pt and requested that a referral be sent to [facility] in [place], [place]. Referral sent to [facility] - Telephone Call to Brian at [facility]- [phone]- Discussed the referral and some of the issues related to spouse and her not wanting pt to leave the hospital. Brian verified the pay source. They do have room for pt and could take him within hours if needed. He also has offered to visit with spouse if needed. He will confirm the benefits and let this worker know. This worker will follow up.
--- NOTE | 2019-10-24 10:23 | Occupational Ther Daily Note ---
OT Current Status-Daily Note Subjective Pt alert, sitting in recliner. Pt required encouragement to participate in therapy. Pt only spoke a few words other than that uses facial expressions. Mental Status/Objective Patient Orientation: Person, Place, Time, Situation Attachments: Drains (wound vac, 2 drains), Garzon Catheter, IV ADL-Treatment Nrsg had just completed sponge bath, reported that pt did not assist with bath. Pt required encouragement to complete oral care and B UE exercises. After set up, pt was able to use swab to cleanse mouth, no dentures in. Attempted to place dentures then pt placed them back into denture cup. Pt allowed assistance to complete B UE though completed movement by self. Pt began to resistance movement of exercises so worked on isometric exercises. After session, pt sitting in recliner with call light/phone in reach. All needs met in room. Reported to nrsg pt's position and that therapy was leaving room. All safety measures in place. Therapy Code Descriptions/Definitions Functional [place] Measure: 0=Not Assessed/NA 4=Minimal Assistance 1=Total Assistance 5=Supervision or Setup 2=Maximal Assistance 6=Modified [place] 3=Moderate Assistance 7=Complete IndependenceSCALE: Activities may be completed with or without assistive devices. 2-Rmzbsvnfjp-toobbku completes the activity by him/herself with no assistance from a helper. 5-Set-up or Clean-up Assistance-helper sets up or cleans up; patient completes activity. [place] assists only prior to or following the activity. 4-Supervision or Touching Assistance-helper provides verbal cues and/or touching/steadying and/or contact guard assistance as patient completes activity. Assistance may be provided throughout the activity or intermittently. 3-Partial/Moderate Assistance-helper does LESS THAN HALF the effort. [place] lifts, holds or supports trunk or limbs, but provides less than half the effort. 2-Substantial/Maximal Assistance-helper does MORE THAN HALF the effort. [place] lifts or holds trunk or limbs and provides more than half the effort. 7-Isrngdlyd-saxfdj does ALL the effort. Patient does none of the effort to complete the activity. Or, the assistance of 2 or more helpers is required for the patient to complete the activity. If activity was not attempted, code reason: 7-Patient Refused. 9-Not Applicable-not attempted and the patient did not perform the activity before the current illness, exacerbation or injury. 10-Not Attempted due to Environmental Limitations-(lack of equipment, weather restraints, etc.). 88-Not Attempted due to Medical Conditions or Safety Concerns. Oral Hygiene (QC): 5 OT Care Home Goals Junior Buyer Goals Time Frame: Nov 01, 2019 Eating (QC): 6 Oral Hygiene (QC): 6 Toileting Hygiene (QC): 6 Shower/Bathe Self (QC): 6 Upper Body Dressing (QC): 6 Lower Body Dressing (QC): 6 On/Off Footwear (QC): 6 1=Demonstrate adherence to instructed precautions during ADL tasks. 2=Patient will verbalize/demonstrate understanding of assistive devices/modif ications for ADL. 3=Patient will improve strength/tolerance for activity to enable patient to perform ADL's. OT Education/Plan Problem List/Assessment Assessment: Decreased Activ Tolerance, Decreased Safety Aware, Decreased UE Strength, Impaired Cognition, Impaired Coordination, Impaired Funct Balance, Impaired Self-Care Skills, Restricted Funct UE ROM Pt would benefit from skilled OT services in order to increase pt's independence to return home safely. Discharge Recommendations Plan/Recommendations: Continue POC Treatment Plan/Plan of Care Patient would benefit from OT for education, treatment and training to promote independence in ADL's, mobility, safety and/or upper extremity function for ADL's. Plan of Care: ADL Retraining, Functional Mobility, UE Funct Exercise/Act Treatment Duration: Nov 01, 2019 Frequency: 5 times per week Estimated Hrs Per Day: .25 hour per day Rehab Potential: Guarded Time/GCodes Start Time: 09:55 Stop Time: 10:10 Total Time Billed (hr/min): 15 Billed Treatment Time 1 visit-FA 1 (15 min) FATOUMATA DEL REAL Oct 24, 2019 10:23
[2019-10-24 10:27] VITALS: BP 149/84
[2019-10-24] MEDS: DRONABINOL 2.5 MG (MARINOL) CAP PO SCH ×2 (11:40→17:41)
[2019-10-24] MEDS: D5 1/2 NS W/KCL 20 MEQ/L 1,000 ML IV SCH (11:50)
--- NOTE | 2019-10-24 14:33 | NUR ---
CM/SS: [facility] has accepted the pt - spouse not 100% ok with pt going there. She will be meeting with [facility] this afternoon. Spouse still wants pt to remain in hospital. This worker reiterates to her pt can not go to inpatient rehab due to criteria and that physician plans to discharge pt tomorrow. Spouse refuses to give this worker an answer on pt going to [facility]. She is open to talking with them. Spouse has talked with Luis Mijares, joint maker machine about wanting pt to remain here, and does not want pt to leave, as well as paying private for pt's hospital stay. Luis does a follow up call to spouse and encourages her to talk with Dominick and that private pay is not really an option as we have to have a ordering physician, as well as indicates he is not a candidate for inpatient rehab. Spouse verbalized understanding.
--- NOTE | 2019-10-24 16:28 | NUR ---
CM/SS: [facility] has accepted pt for admission. Spouse had agreed for pt to go to [facility] on tomorrow. Dr. Carpenter has been notified of the acceptance, as well as BIANCA Jenkins on Operations This worker will follow up.
[2019-10-24 17:01] VITALS: BP 132/95
--- NOTE | 2019-10-24 17:45 | NUR ---
CENTRAL LINE TO LEFT CHEST NOTED TO HAVE SCANT DRAINING FROM IRON INFUSION AROUND DRESSING SITE. PT DENIES ANY PAIN AT SITE, GOOD BLOOD RETURN NOTED. DR LAINEZ NOTIFIED VIA PHONE AND GAVE ORDERS TO D/C ALL IV MEDICATIONS AT THIS TIME AND TO D/C CENTRAL LINE. PT ALSO REQUESTING THIS RN TO NOTIFY DR LAINEZ THEY HAVE CHANGED THEIR MIND AND WOULD LIKE TO GO WITH [facility]. DR LAINEZ UPDATED.
--- NOTE | 2019-10-24 18:30 | NUR ---
DR LOFTON ALSO NOTIFIED THAT CENTRAL LINE WAS D/C AND GAVE ORDERS TO D/C IV REGLAN.
--- NOTE | 2019-10-24 18:48 | NUR ---
PT REPORTS SHE WOULD LIKE TO GO WITH [facility] BEFORE FOR DISCHARGE TOMORROW. DR LAINEZ NOTIFIED VIA PHONE.
[2019-10-24] MEDS: MELATONIN 10 MG TABLET PO SCH (21:19)
[2019-10-24] MEDS: oxyCODONE/APAP 7.5-325 MG (PERCOCET 7.5) TABLET PO PRN (21:19)
[2019-10-25 05:24] VITALS: BP 131/94
[2019-10-25] MEDS: RT-ALBUTEROL/IPRATROPIUM 3 ML (DUONEB) VIAL INH SCH (07:28)
--- NOTE | 2019-10-25 08:21 | Discharge Summary ---
Diagnosis/Chief Complaint Date of Admission Oct 16, 2019 at 09:05 Date of Discharge Discharge Date: Oct 25, 2019 Discharge Time: 09:00 Admission Diagnosis Admission Diagnosis SMALL BOWEL OBSTRUCTION HYPOTENSION SEPSIS/ LEUKOCYTOSIS PULMONARY EFFUSION / POSSIBLE PNEUMONIA THROMBOCYTOPENIA ANEMIA HYPOCALCEMIA ELEVATED LIVER ENZYMES ACUTE KIDNEY INJURY ELEVATED LIPASE GASTROPARESIS HIATAL HERNIA Discharge Diagnosis SMALL BOWEL OBSTRUCTION HYPOTENSION SEPSIS/ LEUKOCYTOSIS PULMONARY EFFUSION / POSSIBLE PNEUMONIA THROMBOCYTOPENIA ANEMIA HYPOCALCEMIA ELEVATED LIVER ENZYMES ACUTE KIDNEY INJURY ELEVATED LIPASE GASTROPARESIS HIATAL HERNIA Reason Hospital Visit PT IS A 74 Y/O MALE WHO PRESENTED TO THE HOSPITAL WITH SYMPTOMS OF SMALL BOWEL OBSTRUCTION - HE WAS ADMITTED AN INPATIENT, NG TUBE PLACED AND TREMENDOUS AMOUNT OF GASTRIC CONTENTS WERE SUCTIONED, HE WAS TAKEN FOR LAPAROTOMY AND A PARTIAL SMALL BOWEL RESECTION WITH PRIMARY ANASTOMOSIS WAS PERFORMED. HE WAS NEEDING IV ANTIBIOTICS, AND WOUND THERAPY AND WAS DISCHARGED FROM INPATIENT ADMISSION AND PLACED ON SWING BED STATUS. Discharge Summary Procedures: WOUND VAC PLACEMENT BLOOD TRANSFUSION IV IRON INFUSION Consultations DR. LOFTON Discharge Physical Examination Allergies: Coded Allergies: budesonide (Verified Allergy, Severe, NUMB LIPS, 09/18/19) diphenhydramine (Verified Allergy, Severe, 09/18/19) formoterol (Verified Allergy, Severe, NUMB LIPS, 09/18/19) alprazolam (Verified Adverse Reaction, Intermediate, MENTAL MOOD CHANGE, 09/18/19) SIG OTHER SAID THE PATIENT GETS COMBATIVE,ANGRY AND VIOLENT. SHE STATES THAT HIS BEHAVIOR IS ODD AND UNLIKE HIM Vitals & I&Os Vital Signs Date Time Temp Pulse Resp B/P (MAP) Pulse Ox O2 Delivery O2 Flow Rate FiO2 10/25/19 07:28 95 Room Air 10/25/19 05:24 36.6 100 19 131/94 (106) 10/24/19 10:27 21 10/22/19 09:00 1.00 General Appearance: Alert, Other (oriented to person, not place, time) HEENT: Mucous Memb Moist/[place], Other (sunken in cheeks) Respiratory: Clear to Auscultation, Normal Air Movement Cardiovascular: Regular Rate Abdominal: Normal Bowel Sounds, Soft, No Tenderness Extremities: No Clubbing, No Cyanosis Skin: Other (large open wound mid to lower abdomen - (wound vac removed in the middle of the night)) Psych/Mental Status: Mental Status NL, Mood NL Hospital Course SMALL BOWEL OBSTRUCTION HYPOTENSION SEPSIS/ LEUKOCYTOSIS PULMONARY EFFUSION / POSSIBLE PNEUMONIA THROMBOCYTOPENIA ANEMIA HYPOCALCEMIA ELEVATED LIVER ENZYMES ACUTE KIDNEY INJURY ELEVATED LIPASE GASTROPARESIS HIATAL HERNIA SMALL BOWEL OBSTRUCTION - DR. LOFTON MANAGING PT STATUS POST PARTIAL SMALL BOWEL RESECTION - PT IS ON SWING BED STATUS - THE IV ANTIBIOTICS FOR HIS WOUND INFECTION HAVE BEEN COMPLETED - UNFORTUNATELY THE WOUND VAC LOST SUCTION LAST NIGHT - THE SURGEON WAS INF ORMED OF THE WOUND VAC ISSUE AND I WAS NOT NOTIFIED LAST NIGHT ABOUT THE WOUND VAC BEING REMOVED. DR. LOFTON GAVE ORDERS FOR WET TO DRY DRESSINGS UNTIL THE STAFF WAS AVAILABLE TO REPLACE THE WOUND VAC. HYPOTENSION - RESOLVED SEPSIS/ LEUKOCYTOSIS -CONTINUE CEFEPIME, ANIDULAFUNGIN, IV FLUIDS -ABDOMINAL INCISION CULTURED, - E. COLI, KLEBSIELLA, AND ENTEROCOCCUS -MIDLINE INCISION WOUND VAC HAS BEEN PLACED, WHITE COUNT NOW NORMAL -PERSISTENT AND CONSISTENT AMOUNT OF DRAINAGE FROM WOUND - WOUND VAC WAS REMOVED ON 10/24/2019 DUE TO LOSS OF SUCTION. PULMONARY EFFUSION / POSSIBLE PNEUMONIA - RESOLVING THROMBOCYTOPENIA -IMPROVING -POSSIBLY DUE TO HEPARIN INDUCED THROMBOCYTOPENIA -STOPPED HEPARIN ON 10/11, PLATELETS IMPROVED ALMOST TO NORMAL - LOVENOX STARTED, TO PREVENT DVT'S - CONTINUE TO CLOSELY MONITOR LABS ANEMIA -HGB PERSISTENTLY LOW STATUS POST BLOOD TRANSFUSIONS - BUT STABLE AT 8 - MONITOR H AND H AND PT WAS GIVEN INFED ON 10/24/2019 ELEVATED LIVER ENZYMES -IMPROVING - MONITOR INTERMITTENTLY ACUTE KIDNEY INJURY -RESOLVED WITH FLUIDS AND TIME GASTROPARESIS ON REGLAN - CHANGED FROM IV TO ORAL DYSPHAGIA - SPEECH HAS EVALUATED PT AND HAS HIS ON A MODIFIED DIET DECREASED APPETITE - PT ON MARINOL - DOSE INCREASED - MONITOR SYMPTOMS - PT IS NOT TAKING PILLS WELL DELIRIUM - STARTED ON ZYPREXA - HE SEEMS TO BE MORE ALERT, CONTINUE WITH CURRENT MANAGEMENT AND HOPEFULLY WITH TIME AND TREATMENT PT WILL SHOW RESOLUTION. LOOSE STOOL - PT NOT TAKING HIS PO MEDICATIONS WELL- HE HAS NOT BEEN INGESTING HIS PROBIOTICS - NEGATIVE FOR CDIFF I HAVE TALKED TO HIS - SHE HAD INITIALLY BEEN IN AGREEMENT FOR PLACEMENT AT INTERMEDIATE, BUT HAS SINCE INDICATED HER DISPLEASURE AT THE IDEA OF TAMIKA GOING TO A INTERMEDIATE ON DISCHARGE SINCE SHE HAD A BAD EXPERIENCE WITH HER FATHER AT A FACILITY. I TALKED AGAIN TO GERONIMO ON 10/24/2019 AFTER READING THROUGH JOURNEYMAN SHEET METAL WORKER NOTES WELL A DISCUSSION WITH DR. LOFTON. TAMIKA IS STABLE, DOES NOT NEED HOSPITALIZATION FOR FLUIDS OR IV PAIN MEDS, OR IV ANTIBIOTICS AFTER MONDAY. HE HAS A WOUND VAC (WHICH WAS REMOVED ON 10/24/2019 DUE TO LOSS OF SUCTION WITH PLAN TO REPLACE THE WOUND VAC PRIOR TO DISCHARGE) AND IS DIFFICULT TO MANAGE FROM A BOWEL REGIMEN STANDPOINT, BUT HE DOES NOT NEED TO BE IN THIS ACUTE HOSPITAL SETTING. HE MAY, HOWEVER, BENEFIT FROM [facility] OR HE MAY BENEFIT FROM THE INTERMEDIATE FOR REHABILITATION IF NOT ACCEPTED AT [facility]. SHE WAS UPSET/ANGRY WITH ME AND INDICATED THAT SHE WAS WORKING ON OTHER OPTIONS, [facility]IFICALLY [facility] [place] [facility]. I ASKED HER HOW SHE WOULD MANAGE TO GET HIM INTO [facility] SINCE A TRANSFER USUALLY REQUIRED A PHYSICIAN TO ACCEPT THE PATIENT FOR ADMISSION AND SHE TOLD ME SHE WOULD GET AN AMBULANCE AND TAKE HIM TO THE [facility] DEPARTMENT IF SHE HAD TO. PT'S CHANGED HER MIND SEVERAL TIMES DURING THE EVENING ON 10/24/2019 - FIRST REFUSING TO GIVE STAFF THE ANSWER TO IF SHE WOULD LET HIM GO TO [facility], THEN AGREEING TO GO TO [facility], THEN CHANGING HER MIND AROUND 1630 AND STATING THAT SHE WANTED HIM TO GO TO [facility] [place], THEN AGAIN CHANGING HER MIND AROUND 1830 AND STATING THAT SHE WAS IN FAVOR OF DISCHARGE TO [facility]. I HAVE HAD JOURNEYMAN SHEET METAL WORKER (MAHESH) ON HIS CASE AND SHE HAS DILIGENTLY WORKED OUT BOTH SCENARIOS FOR DISCHARGE DEPENDING ON HOW GERONIMO IS FEELING TODAY ON WHERE SHE WOULD LIKE TO SEE HIM DISCHARGED TO - EITHER [facility] OR [facility] [place]. I WILL MAKE PLANS FOR THE DC TO [facility], AND HOPEFULLY SHE WILL KEEP HER AGREEMENT FOR THE DISCHARGE TO THIS FACILITY SINCE HE NEEDS THE SKILLED WOUND THERAPY AVAILABLE AT [facility]. Discharge Condition at discharge STABLE Instructions to patient/family Please see electronic discharge instructions given to patient. Discharge Medications Reviewed and agree with Discharge Medication list on patient's Discharge Instruction sheet Clinical Quality Measures DVT/VTE Risk/Contraindication: Risk Factor Score Per Nursin TITA LAINEZ MD Oct 25, 2019 08:21
[2019-10-25] MEDS ORDERED: OLAN2.5T27 PO (08:38)
[2019-10-25] MEDS: OLANZapine 2.5 MG (ZyPREXA) TAB PO SCH (08:41)
[2019-10-25] MEDS: ENOXAPARIN 40 MG/0.4 ML (LOVENOX) SYR SQ SCH (08:41)
[2019-10-25] MEDS: PANTOPRAZOLE 40 MG (PROTONIX) TAB PO SCH (08:41)
--- NOTE | 2019-10-25 09:24 | Physical Therapy Daily Note ---
PT Daily Note-Current Subjective Patient in recliner. Sitter and telesitter present. Per nursing, patient pulled wound vac tubing and had to dress abdominal wound. Mental Status Patient Orientation: Confused Attachments: Drains, Beach Catheter Transfers SCALE: Activities may be completed with or without assistive devices. 4-Vdsxtvkqgg-ypwxwre completes the activity by him/herself with no assistance from a helper. 5-Set-up or Clean-up Assistance-helper sets up or cleans up; patient completes activity. [place] assists only prior to or following the activity. 4-Supervision or Touching Assistance-helper provides verbal cues and/or touc yariel/steadying and/or contact guard assistance as patient completes activity. Assistance may be provided throughout the activity or intermittently. 3-Partial/Moderate Assistance-helper does LESS THAN HALF the effort. [place] lifts, holds or supports trunk or limbs, but provides less than half the effort. 2-Substantial/Maximal Assistance-helper does MORE THAN HALF the effort. [place] lifts or holds trunk or limbs and provides more than half the effort. 4-Bqjltytwi-vthofl does ALL the effort. Patient does none of the effort to complete the activity. Or, the assistance of 2 or more helpers is required for the patient to complete the activity. If activity was not attempted, code reason: 7-Patient Refused. 9-Not Applicable-not attempted and the patient did not perform the activity before the current illness, exacerbation or injury. 10-Not Attempted due to Environmental Limitations-(lack of equipment, weather restraints, etc.). 88-Not Attempted due to Medical Conditions or Safety Concerns. Sit to Stand (QC): 2 (x 2) unable to follow simple direction and became highly agitated. While in stand, patient became increasingly agitated and aggressively threw his FWW forward with beach attached. Assessment Patient began to bleed from abdomen in standing position. PT had patient return to recliner with bilateral LE elevated and abd pad placed on top of current dressing for reinforcement. Patient not progressing with treatment plan. PT Skilled Nursing Goals Skilled Nursing Goals PT Wire Coating Machine Operator Goals Time Frame: Nov 02, 2019 Roll Left & Right (QC): 4 Sit to Lying (QC): 4 Lying-Sitting on Side/Bed(QC): 4 Sit to Stand (QC): 4 Chair/Bai-bu-Leteo Xfer(QC): 4 Toilet Transfer (QC): 88 Car Transfer (QC): 88 Does the Patient Walk: Yes Walk 10 feet (QC): 4 Walk 50ft with 2 Turns (QC): 4 Walk 150 ft (QC): 4 Walking 10ft on Uneven Surface: 88 1 Step (curb) (QC): 88 4 Steps (QC): 88 12 Steps (QC): 88 Picking up an Object (QC): 88 Wheel 50 feet with 2 turns (QC: 9 Wheel 150 feet: 9 PT Plan Treatment/Plan Treatment Plan: Continue Plan of Care Treatment Plan: Bed Mobility, Education, Functional Activity [place], Functional Strength, Gait, Safety, Therapeutic Exercise, Transfers Treatment Duration: Nov 02, 2019 Frequency: 6 times per week Estimated Hrs Per Day: .25 hour per day Patient and/or Family Agrees t: Yes Time/GCodes Time In: 852 Time Out: 907 Total Billed Treatment Time: 15 Total Billed Treatment 1 visit FA 15 min ANSLEY ARCE PT Oct 25, 2019 09:24
--- NOTE | 2019-10-25 10:50 | Progress Note ---
Subjective Date Seen by a Provider: Oct 25, 2019 Time Seen by a Provider: 10:00 Subjective/Events-last exam patient status quo. VSS, afebrile. wound granulating in well. still very weak and poor PO intake. Objective Exam Vital Signs Date Time Temp Pulse Resp B/P (MAP) Pulse Ox O2 Delivery O2 Flow Rate FiO2 10/25/19 08:00 Room Air 10/25/19 07:28 95 Room Air 10/25/19 05:24 36.6 100 19 131/94 (106) 96 Room Air 10/24/19 20:10 95 Room Air 10/24/19 17:01 37.3 91 20 132/95 (107) 95 Room Air I & O 10/25/19 07:00 Intake Total 1000 ml Output Total 1810 ml Balance -810 ml Capillary Refill : Less Than 3 SecondsLess Than 3 Seconds General Appearance: No Apparent Distress HEENT: PERRL/EOMI Neck: Full Range of Motion Respiratory: Chest Non Tender, Lungs Clear, Normal Breath Sounds Cardiovascular: Regular Rate, Rhythm Gastrointestinal: normal bowel sounds, soft, tenderness, other (wound granulating in well. ) Extremity: Normal Capillary Refill Neurologic/Psychiatric: Alert, Oriented x3 Skin: Normal Color Lymphatic: No Adenopathy Results Lab Microbiology 10/23/19 C. difficile GDH Antigen & Toxins - Final, Complete Assessment/Plan Assessment/Plan Assess & Plan/Chief Complaint SBO s/p expl lap, MARIE long segment small bowel resection. wound necrosis and dehiscence. no exposed bowel. will proceed with sharp debridement by bedside(6x4cm). continue wound VAC 2x/weekly. encourage PO. abx now with cefepime and erraxis. small area of fascia debrided. overall wound improved with much greater area of granulation tissue. family now amenable to SNF vs. LTAC Clinical Quality Measures DVT/VTE Risk/Contraindication: Risk Factor Score Per Nursin ROMAIN LOFTON MD Oct 25, 2019 10:50
[2019-10-25] MEDS: DRONABINOL 2.5 MG (MARINOL) CAP PO SCH (12:00)
--- NOTE | 2019-10-25 13:04 | Therapy Team Discharge Summary ---
Therapy Discharge Summary Discharge Recommendations Date of Discharge Physical Therapy Patient seen by PT to address functional strength and mobility. Patient remained confused and agitated during SW stay and did not make functional gains. PT attempted to address goals with patient, however, patient remained max a ssist with all mobility and refused to attempt ambulation. Patient, at time, would become increasingly agitated and combative which also caused inability to progress with gross motor skills. Patient is being transferred to an LTAC for continued care. PT to dismiss patient from services at this time. Occupational Therapy Decreased Activ Tolerance, Decreased Safety Aware, Decreased UE Strength, Impaired Cognition, Impaired Coordination, Impaired Funct Balance, Impaired Self-Care Skills, Restricted Funct UE ROM PT Fci Goals Fci Goals PT Fci Goals Time Frame: Nov 02, 2019 Roll Left to Right (QC): 4 Sit to Lying (QC): 4 Lying-Sitting on Side/Bed(QC): 4 Sit to Stand (QC): 4 Chair/Ant-fn-Xnjvq Xfer(QC): 4 Car Transfer (QC): 88 Does the Patient Walk: Yes Walk 10 feet (QC): 4 Walk 10ft-Uneven Surface(QC): 88 Walk 50ft with 2 Turns (QC): 4 Walk 150 ft (QC): 4 Wheel 50 feet with 2 turns (QC: 9 1 Step (curb) (QC): 88 4 Steps (QC): 88 12 Steps (QC): 88 Picking up an Object (QC): 88 OT Fci Goals Fci Goals Time Frame: Nov 01, 2019 Eating (QC): 6 Oral Hygiene (QC): 6 Shower/Bathe Self (QC): 6 Upper Body Dressing (QC): 6 Lower Body Dressing (QC): 6 On/Off Footwear (QC): 6 Toileting Hygiene (QC): 6 Toilet/Commode Transfer (QC): 88 1=Demonstrate adherence to instructed precautions during ADL tasks. 2=Patient will verbalize/demonstrate understanding of assistive devices/m odifications for ADL. 3=Patient will improve strength/tolerance for activity to enable patient to perform ADL's. Speech Audio Visual Project Manager Goals Fci Goals Patient will maintain adequate nutrition/hydration via safe effective swallow function. ANSLEY ARCE PT Oct 25, 2019 13:04
--- NOTE | 2019-10-25 13:32 | NUR ---
CM/SS: Visited with spouse as to plan for discharge Plan: Pt will go to [facility] Summary: Pt is in bed resting. He is not very responsive this morning. Spouse does arrive and had been at the senior attorney's office for papers related to real estate. She wants pt to sign the papers and have them notarized. Pt is unable to sign. Spouse reports that pt can not leave until papers are signed. Reminded about discharge orders are in and pt has bed ready at [facility]. Spouse indicates that she has papers that have to be signed in [place] and notarized. Attempt is made to have papers notarized here. Pt is not alert enough to do so. BIANCA Smith of Operations is notified of the above. He is able to reach the Shop Worker and verify if the papers have to be signed in [place]. They do not - they can be notarized in [place]. Spouse is notified. She is ok for pt to be transferred to [facility]. Report information is given to MICHELLE Espinosa. She is able call [facility]. Pt will go non emergent EMS. EMS to be notified by MICHELLE Espinosa.
--- NOTE | 2019-10-25 14:10 | NUR ---
Report called to Balta MARTINEZ at [facility] in [place]. EMS called for medical transportation.
[2019-10-25] MEDS: oxyCODONE/APAP 7.5-325 MG (PERCOCET 7.5) TABLET PO PRN (14:17)
--- NOTE | 2019-10-25 14:23 | Therapy Team Discharge Summary ---
Therapy Discharge Summary Discharge Recommendations Date of Discharge Occupational Therapy Pt admitted to [facility], seen by OT in order to increase pt's independence performance, and safety with ADLs/functional mobility. At evaluation, pt was independent with feeding (based on clinical judgment), and total assist with or al hygiene, sponge bath, lower body dressing, and toilet hygiene. Pt refused to complete other ADLs at evaluation. OT txs focus on ADLs, increasing UE strength and functional endurance in order to address goals and increase pt's function in ADLs. During txs, pt was able to complete oral hygiene with set up assist, footwear with total assist, and sponge bath with total assist. During txs, pt continued to refuse ADLs and became agitated/confused impacting his ability to progress with goals. Pt did not meet any goals during the course of OT tx. Pt is transferring to another facility on this date for continued care. D/C from OT services at this time. Decreased Activ Tolerance, Decreased Safety Aware, Decreased UE Strength, Impaired Cognition, Impaired Coordination, Impaired Funct Balance, Impaired Self-Care Skills, Restricted Funct UE ROM PT Dispatcher Service Chief Goals Dispatcher Service Chief Goals PT Dispatcher Service Chief Goals Time Frame: Nov 02, 2019 Roll Left to Right (QC): 4 Sit to Lying (QC): 4 Lying-Sitting on Side/Bed(QC): 4 Sit to Stand (QC): 4 Chair/Uet-aq-Oonfn Xfer(QC): 4 Car Transfer (QC): 88 Does the Patient Walk: Yes Walk 10 feet (QC): 4 Walk 10ft-Uneven Surface(QC): 88 Walk 50ft with 2 Turns (QC): 4 Walk 150 ft (QC): 4 Wheel 50 feet with 2 turns (QC: 9 1 Step (curb) (QC): 88 4 Steps (QC): 88 12 Steps (QC): 88 Picking up an Object (QC): 88 OT Dispatcher Service Chief Goals Dispatcher Service Chief Goals Time Frame: Nov 01, 2019 Eating (QC): 6 (not met) Oral Hygiene (QC): 6 (not met) Shower/Bathe Self (QC): 6 (not met) Upper Body Dressing (QC): 6 (not met) Lower Body Dressing (QC): 6 (not met) On/Off Footwear (QC): 6 (not met) Toileting Hygiene (QC): 6 (not met) Toilet/Commode Transfer (QC): 88 1=Demonstrate adherence to instructed precautions during ADL tasks. 2=Patient will verbalize/demonstrate understanding of assistive devices/modific ations for ADL. 3=Patient will improve strength/tolerance for activity to enable patient to perform ADL's. Speech Dispatcher Service Chief Goals Half-Way Goals Patient will maintain adequate nutrition/hydration via safe effective swallow function. INES MURPHY OT Oct 25, 2019 14:23
== END 2019-10-25 14:45 | DRG 856 ==
LOC: 4TH 09:05
PROVIDERS: ADMIT Family Medicine; ATTEND Family Medicine
PROC: 0JB80ZZ Excision of Abdomen Subcutaneous Tissue and Fascia, Open Approach (ICD-10-PCS; principal; 2019-10-19)
PROC: 02PYX3Z Removal of Infusion Device from Great Vessel, External Approach (ICD-10-PCS; 2019-10-19)
PROC: 02HV33Z Insertion of Infusion Device into Superior Vena Cava, Percutaneous Approach (ICD-10-PCS; 2019-10-19)
PROC: 0JB80ZZ Excision of Abdomen Subcutaneous Tissue and Fascia, Open Approach (ICD-10-PCS; 2019-10-22)
DX: T81.44XA Sepsis following a procedure, initial encounter (principal); A41.9 Sepsis, unspecified organism; J18.9 Pneumonia, unspecified organism; T81.30XA Disruption of wound, unspecified, initial encounter; N17.9 Acute kidney failure, unspecified; I95.9 Hypotension, unspecified; D75.82 Heparin induced thrombocytopenia (HIT); D64.9 Anemia, unspecified; E83.51 Hypocalcemia; R74.8 Abnormal levels of other serum enzymes; D69.6 Thrombocytopenia, unspecified; K31.84 Gastroparesis
CPT/HCPCS: 36415; 80053; 80202; 82962; 83735; 85014; 85018; 85027; 86850; 86900; 86901; 86920; 87324; 87449; 94640; 94760

== ENCOUNTER 2019-11-26 11:35 | Inpatient (IN) | payer MEDICARE, OTHER ==
[~2019-11-26] VITALS: Ht 177.8 cm; Wt 55.5 kg
[~2019-11-26 11:35] MED LIST changes: +BISACODYL 10 MG SUPP (DULCOLAX) PR PRN; +CALCIUM CARBONATE 500 MG (TUMS) TAB.CHEW PO PRN; +DOCUSATE SODIUM 100 MG (COLACE) CAP PO PRN; +ENOXAPARIN 40 MG/0.4 ML (LOVENOX) SYR SC SCH; +FLEET ENEMA ADULT 1 EA BTL PR PRN; +LACTULOSE SYRUP 10GM/15ML (ENULOSE) 30ML UDC PO PRN; +LOPERAMIDE 2 MG (IMODIUM) TABLET PO PRN; +MELATONIN 3 MG TABLET PO PRN; +OLAN2.5T27 PO; +ONDANSETRON 4 MG (ZOFRAN) ORAL DISSOLVE TAB PO PRN; +guaiFENesin/CODEINE (ROBITUSSIN AC) 10ML UDC PO PRN
--- NOTE | 2019-11-26 11:35 | NUR ---
Pt admitted to room 227 with an admitting diagnosis of Disuse Myopathy from [facility]. via w/c, accompanied by [employer] rolloff truck driver. SOLITARIO CHEW introduced to surroundings, call light, bed controls, phone, TV, temperature control, lights, meal times, smoking policy, visitor policy, side rail policy, bathrooms and showers. Patient Rights given to patient in the handbook. SOLITARIO CHEW acknowledges understanding that [facility] is not responsible for the loss or damage to any personal effects or valuables that are kept in the patients posession during their hospitalization. The following Patient Care Plans were discussed with the pt: Discharge Planning, Impaired Mobility, ALteration in skin integrity, Potential for fall/injury, knowledge deficit. SOLITARIO CHEW understanding of Interdisciplinary Patient Education. Patient and/or family were informed about the Rapid Response Team and its purpose in the book. Patient received Patient Rights Booklet, which includes Privacy Act Statement and Data Collection Information Summary.
--- NOTE | 2019-11-26 13:16 | Physical Therapy Evaluation ---
PT Evaluation-General Medical Diagnosis Admission Date Nov 26, 2019 at 11:35 Medical Diagnosis: disuse myopathy Onset Date: Oct 03, 2019 Therapy Diagnosis Therapy Diagnosis: impaired mobility, strength, endurance Height/Weight Height (Feet): 6 Height (Inches): 1.00 Weight (Pounds): 170 Weight (Ounces): 0.0 Referral Physician: Marisela Hull DO Reason for Referral: Evaluation/Treatment Medical History Pertinent Medical History: Diverticulitis, GERD, HTN, Rheumatoid Arthritis Social History unknown Prior Prior Level of Function SCALE: Activities may be completed with or without assistive devices. 6-Cslgogonoa-fjitato completes the activity by him/herself with no assistance from a helper. 5-Set-up or Clean-up Assistance-helper sets up or cleans up; patient completes activity. [place] assists only prior to or following the activity. 4-Supervision or Touching Assistance-helper provides verbal cues and/or touching/steadying and/or contact guard assistance as patient completes activity. Assistance may be provided throughout the activity or intermittently. 3-Partial/Moderate Assistance-helper does LESS THAN HALF the effort. [place] lifts, holds or supports trunk or limbs, but provides less than half the effort. 2-Substantial/Maximal Assistance-helper does MORE THAN HALF the effort. [place] lifts or holds trunk or limbs and provides more than half the effort. 6-Qodlajdqq-zwfwls does ALL the effort. Patient does none of the effort to complete the activity. Or, the assistance of 2 or more helpers is required for the patient to complete the activity. If activity was not attempted, code reason: 7-Patient Refused. 9-Not Applicable-not attempted and the patient did not perform the activity before the current illness, exacerbation or injury. 10-Not Attempted due to Environmental Limitations-(lack of equipment, weather restraints, etc.). 88-Not Attempted due to Medical Conditions or Safety Concerns. unknown PT Evaluation-Current Subjective Patient in WC pre tx, he is very lethargic, doesn't seem to be able to talk much or follow directions. Patient shakes his head no when asked if he has any pain. Pt/Family Goals none stated Objective Patient Orientation: Person, Confused, Unable to Assess, Non-Verbal/Aphasic ROM/Strength ROM Lower Extremities WNL Strength Lower Extremities unable to assess Sensory Sensation Lower Extremities unable to assess Transfers Roll Left to Right (QC): 1 Sit to Lying (QC): 1 Lying to Sitting/Side of Bed(Q: 1 Sit to Stand (QC): 2 Chair/Muq-it-Tlpog Xfer(QC): 2 Toilet Transfer (QC): 1 Car Transfer (QC): 1 Patient needs max assist to stand and perform a transfer, he can barely move his feet to take steps, needs assist with this and guiding walker, patient is stiff and uncooperative. Gait Walk 10 feet (QC): 88 Walk 50 ft with 2 Turns(QC): 88 Walk 150 ft (QC): 88 Walking 10ft/uneven surface-QC: 88 Wheelchair Training Wheel 50 ft with 2 turns (QC): 1 Wheel 150 ft (QC): 1 Stairs 1 Step (curb) (QC): 88 4 Steps (QC): 88 12 Steps (QC): 88 Balance Sitting Static: Fair Sitting Dynamic: Poor Standing Static: Poor Standing Dynamic: Poor Picking up an Object (QC): 88 Assessment/Needs Patient has impaired mobility, strength, endurance. Patient is virtually non- verbal, doesn't follow directions, very uncooperative. Patient needs assist to move his feet and guide walker during transfers. Rehab Potential: Guarded PT Short Term Goals Short Term Goals Time Frame: Dec 03, 2019 Roll Left & Right: 3 Sit to lyin Lying to sitting on side of be: 3 Sit to stand: 3 Chair/wkg-iv-tdhdw transfer: 3 Walk 10 feet: 3 PT Assistant Distribution Manager Goals Detention Goals PT Assistant Distribution Manager Goals Time Frame: Dec 17, 2019 Roll Left & Right (QC): 3 (Marivel) Sit to Lying (QC): 3 (Marivel) Lying-Sitting on Side/Bed(QC): 3 (Marivel) Sit to Stand (QC): 3 (Marivel) Chair/Ykg-wp-Jggms Xfer(QC): 3 (Marivel) Toilet Transfer (QC): 3 (Marivel) Car Transfer (QC): 3 (Marivel) Does the Patient Walk: No and Walking Goal IS indicated Walk 10 feet (QC): 3 (Marivel) Walk 50ft with 2 Turns (QC): 3 (Marivel) Walk 150 ft (QC): 88 Walking 10ft on Uneven Surface: 88 1 Step (curb) (QC): 88 4 Steps (QC): 88 12 Steps (QC): 88 Picking up an Object (QC): 88 Wheel 50 feet with 2 turns (QC: 3 (Marivel) Wheel 150 feet: 3 (Marivel) PT Plan Problem List Problem List: Activity Tolerance, Functional Strength, Safety, Balance, Gait, Transfer, Bed Mobility, ROM Treatment/Plan Treatment Plan: Continue Plan of Care Treatment Plan: Bed Mobility, Education, Functional Activity [place], Functional Strength, Group Therapy, Gait, Safety, Therapeutic Exercise, Transfers Treatment Duration: Dec 17, 2019 Frequency: At least 5 of 7 days/Wk (IRF) Estimated Hrs Per Day: 1.5 hours per day Patient and/or Family Agrees t: Yes Safety Risks/Education Patient Education: Transfer Techniques, Correct Positioning, Safety Issues Teaching Recipient: Patient Teaching Methods: Demonstration, Discussion Response to Teaching: Reinforcement Needed Discharge Recommendations Plan Patient will perform bed mobility and transfer training, balance and endurance training, functional strengthening, gait training, and education, to improve functional mobility and independence at home. Therapy Discharge Recommendati: Other, See Comments (NH) Time/GCodes Time In: 1140 Time Out: 1150 Total Billed Treatment Time: 10 Total Billed Treatment 1 visit JUNITO Mackenzie' ANNEMARIE CROFT PT Nov 26, 2019 13:16
--- NOTE | 2019-11-26 13:29 | Physical Therapy Daily Note ---
PT Daily Note-Current Subjective Patient in recliner pre tx, lethargic, non-verbal, confused, has an airbed that he needs to get into. Will be co-treating with OT due to poor patient mobility, strength, endurance, the need to coordinate treatment during activity with UE and LE. Appearance Patient in bed post tx with nurse call, phone, tray, all needs met, bed alarm on. Mental Status Patient Orientation: Person, Confused, Unable to Assess, Non-Verbal/Aphasic Transfers SCALE: Activities may be completed with or without assistive devices. 8-Okrtssnyds-gsmmrdg completes the activity by him/herself with no assistance from a helper. 5-Set-up or Clean-up Assistance-helper sets up or cleans up; patient completes activity. [place] assists only prior to or following the activity. 4-Supervision or Touching Assistance-helper provides verbal cues and/or touching/steadying and/or contact guard assistance as patient completes activity. Assistance may be provided throughout the activity or intermittently. 3-Partial/Moderate Assistance-helper does LESS THAN HALF the effort. [place] lifts, holds or supports trunk or limbs, but provides less than half the effort. 2-Substantial/Maximal Assistance-helper does MORE THAN HALF the effort. [place] lifts or holds trunk or limbs and provides more than half the effort. 3-Giclzddna-txunmk does ALL the effort. Patient does none of the effort to complete the activity. Or, the assistance of 2 or more helpers is required for the patient to complete the activity. If activity was not attempted, code reason: 7-Patient Refused. 9-Not Applicable-not attempted and the patient did not perform the activity before the current illness, exacerbation or injury. 10-Not Attempted due to Environmental Limitations-(lack of equipment, weather restraints, etc.). 88-Not Attempted due to Medical Conditions or Safety Concerns. Roll Left & Right (QC): 1 Sit to Lying (QC): 1 Sit to Stand (QC): 2 Chair/Rgf-nx-Odcce Xfer(QC): 2 Patient doesn't initiate standing or transfer on his own, the therapist physically lifting on patient cues him to assist, but very minimally. Patient seems mostly unaware of what is going on around him. Treatments PT performs bed mobility and transfers, OT performs UE positioning and safety and assists with transfer Assessment Current Status: Poor Progress Patient lethargic, uncooperative PT Short Term Goals Short Term Goals Time Frame: Dec 03, 2019 Roll Left & Right: 3 Sit to lyin Lying to sitting on side of be: 3 Sit to stand: 3 Chair/olz-sg-hsvcd transfer: 3 Walk 10 feet: 3 PT Alf Goals Alf Goals PT Alf Goals Time Frame: Dec 17, 2019 Roll Left & Right (QC): 3 (Marivel) Sit to Lying (QC): 3 (Marivel) Lying-Sitting on Side/Bed(QC): 3 (Marivel) Sit to Stand (QC): 3 (Marivel) Chair/Xiv-wi-Zzqxf Xfer(QC): 3 (Marivel) Toilet Transfer (QC): 3 (Marivel) Car Transfer (QC): 3 (Marivel) Does the Patient Walk: No and Walking Goal IS indicated Walk 10 feet (QC): 3 (Marivel) Walk 50ft with 2 Turns (QC): 3 (Marivel) Walk 150 ft (QC): 88 Walking 10ft on Uneven Surface: 88 1 Step (curb) (QC): 88 4 Steps (QC): 88 12 Steps (QC): 88 Picking up an Object (QC): 88 Wheel 50 feet with 2 turns (QC: 3 (Marivel) Wheel 150 feet: 3 (Marivel) PT Plan Problem List Problem List: Activity Tolerance, Functional Strength, Safety, Balance, Gait, Transfer, Bed Mobility, ROM Treatment/Plan Treatment Plan: Continue Plan of Care Treatment Plan: Bed Mobility, Education, Functional Activity [place], Functional Strength, Group Therapy, Gait, Safety, Therapeutic Exercise, Transfers Treatment Duration: Dec 17, 2019 Frequency: At least 5 of 7 days/Wk (IRF) Estimated Hrs Per Day: 1.5 hours per day Patient and/or Family Agrees t: Yes Safety Risks/Education Patient Education: Transfer Techniques, Correct Positioning, Safety Issues Teaching Recipient: Patient Teaching Methods: Demonstration, Discussion Response to Teaching: Reinforcement Needed Time/GCodes Time In: 1300 Time Out: 1310 Total Billed Treatment Time: 10 Total Billed Treatment 1 visit FA 10' co-treated with OT for 10' ANNEMARIE CROFT PT Nov 26, 2019 13:29
--- NOTE | 2019-11-26 13:31 | Occupational Therapy Eval ---
OT Evaluation-General/PLF Medical Diagnosis Admission Date Nov 26, 2019 at 11:35 Medical Diagnosis: disuse myopathy Onset Date: Oct 03, 2019 Therapy Diagnosis Therapy Diagnosis: Deconditioning Height/Weight Height (Feet): 6 Height (Inches): 1.00 Weight (Pounds): 170 Weight (Ounces): 0.0 Weight Bear Status Weight Bearing Restriction: Weight Bearing/Tolerated Referral Physician: Marisela Hull DO Referral Reason: Activity Tolerance, Self Care, Evaluation/Treatment, Strengthening/ROM Medical History Pertinent Medical History: COPD, Diverticulitis, GERD, HTN, Rheumatoid Arthritis Additional Medical History Pt. is s/p partial bowel resection secondary to small bowel obstruction. Current History hiatal hernia, anxiety, PTSD Reviewed History: Yes Social History Current Living Status: Spouse ADL-Prior Level of Function SCALE: Activities may be completed with or without assistive devices. 1-Txcinsvmep-douunet completes the activity by him/herself with no assistance from a helper. 5-Set-up or Clean-up Assistance-helper sets up or cleans up; patient completes activity. [place] assists only prior to or following the activity. 4-Supervision or Touching Assistance-helper provides verbal cues and/or touching/steadying and/or contact guard assistance as patient completes activity. Assistance may be provided throughout the activity or intermittently. 3-Partial/Moderate Assistance-helper does LESS THAN HALF the effort. [place] lifts, holds or supports trunk or limbs, but provides less than half the effort. 2-Substantial/Maximal Assistance-helper does MORE THAN HALF the effort. [place] lifts or holds trunk or limbs and provides more than half the effort. 5-Agbrlxxqk-ntjggs does ALL the effort. Patient does none of the effort to complete the activity. Or, the assistance of 2 or more helpers is required for the patient to complete the activity. If activity was not attempted, code reason: 7-Patient Refused. 9-Not Applicable-not attempted and the patient did not perform the activity before the current illness, exacerbation or injury. 10-Not Attempted due to Environmental Limitations-(lack of equipment, weather restraints, etc.). 88-Not Attempted due to Medical Conditions or Safety Concerns. ADL PLOF Comments Pt. is unable to verbalize prior level of function or equipment that he has at home. Spouse not present at this time. Self Care: Unknown Functional Cognition: Unknown OT Current Status Subjective Pt. shakes head "no" when OT asks him if he is having pain. However, at second treatment, pt. groans and winces when therapy moves him in the chair. Mental Status/Objective Patient Orientation: Confused Current Upper Extremity ROM Pt. does not participate in evaluation, and will not follow cues. Unable to assess current UE ROM at this time. ADL-Treatment Eating (QC): 10 Oral Hygiene (QC): 88 Shower/Bathe Self (QC): 10 Upper Body Dressing (QC): 7 Lower Body Dressing (QC): 1 On/Off Footwear (QC): 1 Toileting Hygiene (QC): 1 Other Treatments Pt. transferred to this facility this date from [facility]. Pt. arrived via wheelchair van. Attempted two sessions with pt. At first session, pt. seen with PT for co-treatment due to level of skilled care needed. Pt. in wheelchair and non-verbal. Will not answer questions or attend to therapist. PT attempted to assess LE ROM and mobility while OT attempted to assess UE ROM and ADL skills. Pt. does not follow cues, and will not allow PROM to be performed. OT/PT stood pt. with walker from wheelchair, to transfer to chair in room. Therapy attempted multiple times before getting pt. to feet, and pt. required max x 2-3 people for transfer. Chair alarm provided and pt. reclined to rest at that time. OT came back into room and attempted to work with pt. again. Pt's eyes open but shut custodial when OT came into room. Did not verbalize at first but did somewhat smile at one point. Pt. did verbalize under his breath, "come on guys, get it together" after therapy attempted to transfer him. Noted that pt. sliding down in chair. Would not assist therapy to sit more upright, so therapy transferred him more upright into chair via cloth pad. Pt. groans but does not report pain level or where. PT came into room at this time and assisted with transfer back to bed. Pt. will not initiate the steps needed to transfer, and so therapy transferred sit-stand on walker with max x 2. Pt. would not move feet when upright, so therapy sat him back down on chair. Stood in front to perform dependent stand pivot to bed. Dependent of one therapist and max assist of another. Dependent to transfer sit-supine and position in bed. All needs met. Education OT Patient Education: Correct positioning, Modified ADL techniques, Progress toward Goal/Update tx plan, Purpose of tx/functional activities, Reviewed precautions, Rehab process, Transfer techniques Teaching Recipient: Patient Teaching Methods: Demonstration, Discussion Response to Teaching: Unable to Return Demonstration, Unable to Comprehend, Reinforcement Needed OT Short Term Goals Short Term Goals Time Frame: Dec 10, 2019 Eatin Oral hygiene: 3 Toileting hygiene: 2 Shower/bathe self: 2 Upper body dressin Lower body dressin Putting on/taking off footwear: 3 OT Verifier Goals Residential Goals Time Frame: Dec 24, 2019 Eating (QC): 4 Oral Hygiene (QC): 4 Toileting Hygiene (QC): 3 Shower/Bathe Self (QC): 3 Upper Body Dressing (QC): 4 Lower Body Dressing (QC): 4 On/Off Footwear (QC): 4 Additional Goals: 1-Demonstrate ADL Tasks, 2-Verbalize Understanding, 3- ImproveStrength/[place] 1=Demonstrate adherence to instructed precautions during ADL tasks. 2=Patient will verbalize/demonstrate understanding of assistive devices/modifications for ADL. 3=Patient will improve strength/tolerance for activity to enable patient to perform ADL's. OT Education/Plan Problem List/Assessment Assessment: Decreased Activ Tolerance, Decreased Safety Aware, Decreased UE Strength, Dependent Transfers, Impaired Bed Mobility, Impaired Cognition, Impaired Coordination, Impaired Funct Balance, Impaired I ADL's, Impaired Self- Care Skills, Restricted Funct UE ROM Discharge Recommendations Plan/Recommendations: Continue POC Therapy Discharge Recommendati: 24 Hour Supervision, Post Acute OT Treatment Plan/Plan of Care Treatment,Training & Education: Yes Patient would benefit from OT for education, treatment and training to promote independence in ADL's, mobility, safety and/or upper extremity function for ADL's. Plan of Care: ADL Retraining, Caregiver Training, Functional Mobility, Group E xercise/Act as Ind, UE Funct Exercise/Act, UE Neuromus Re-Ed/Coord Treatment Duration: Dec 24, 2019 Frequency: At least 5 of 7 days/Wk (IRF) Estimated Hrs Per Day: 1.5 hours per day Agreement: Yes Rehab Potential: Guarded Time/GCodes Start Time: 11:40 Stop Time: 13:10 Total Time Billed (hr/min): 35 Billed Treatment Time 4804-2123 PT eval, no OT charge [id number] 1, EVH x 10minutes [phone] FA x 15minutes [id number] Co-treatment with PT. Please see above note for designated roles. XOCHILT SAMSON OT Nov 26, 2019 13:31
[2019-11-26] MEDS ORDERED: TPN (14:01)
[2019-11-26] MEDS ORDERED: MELA5TAB14 PO (14:01)
[2019-11-26] MEDS ORDERED: IPRA3AMP31 IH (14:01)
[2019-11-26] MEDS ORDERED: FAMO20TA5 PO (14:01)
[2019-11-26] MEDS ORDERED: LACT1CAP76 PO (14:01)
[2019-11-26] MEDS ORDERED: QUET25TA PO ×2 (14:01)
[2019-11-26] MEDS ORDERED: ONDA4TAB11 PO (14:01)
[2019-11-26] MEDS ORDERED: ACET325C7 PO (14:01)
[2019-11-26] MEDS ORDERED: MEGE40TA5 PO (14:05)
--- NOTE | 2019-11-26 14:08 | NUR ---
I ENTERED THE MED REC USING THE DISCHARGE ORDERS FROM [facility], ONCE MEDICATIONS ARE CONTINUED I WILL SPEAK WITH THE PT AND MAKE CHANGES TO THE MED REC/NOTES NEEDED ON THE MEDICATIONS LISTED FROM [facility] IT DOES SHOW ENOXAPARIN 40MG/0.4ML- WITH NO WRITTEN NEXT TO IT. WHEN PATIENTS LEAVE [facility] THE DISCHARGING PHYSICIAN WRITES YES OR NO NEXT TO THE MEDICATIONS TO INDICATE IF THEY ARE TO BE CONTINUED. FOR THIS REASON I HAVE NOT ADDED ENOXAPARIN TO THE MED REC THERE IS ALSO AN ORDER FOR A TPN- AMINO ACIDS 3.31% W/ 9.8% DEXTROSE, 3.9% LIPID AND TO RUN AT 83ML/HR. ON THE MED REC I ENTERED THIS TPN UNDEFINED Addendum: 12/03/19 at 1604 by TARAS MESA CPhT I SPOKE WITH THE PT AND HIS AND NEITHER OF THEM KNOW THE NAMES OF HIS MEDICATIONS. THEY DID LET ME KNOW HE USES THE [facility] AND I HAVE SENT A REQUEST FOR HIS MAILORDER RECORDS. Addendum: 12/04/19 at 0996 by TARAS MESA CPhT I GOT THE MED LIST [facility] AND ALSO SPOKE WITH [facility] TO COMPLETE THE MED REC MEDICATIONS THAT WERE REMOVED DUE TO PT NOT TAKING PRIOR TO [place]: TPN FAMOTIDINE 20MG PROBIOTIC MEGESTROL 40MG MELATONIN 5MG QUETIAPINE 25MG DUONEB ONDANSETRON ODT 4MG MEDICATIONS THAT HAVE BEEN ADDED TO THE MED REC DUE TO BE TAKING PRIOR TO [place] (ALSO THE LAST FILL DATES): 07-30-2019 ROPINIROLE 2MG #90/90DS 09-13-2019 ATORVASTATIN 10MG #90/90DS 09-16-2019 BREO 200/25 #1 10-19-2019 AMLODIPINE/BENAZEPRIL 5/10MG #90/90DS 10-24-2019 TERAZOSIN 2MG #180/90DS 11-01-2019 ALENDRONATE 70MG #12/84DS 11-04-2019 METHOTREXATE 2.5MG #96/90DS 11-14-2019 PANTOPRAZOLE 40MG #90/90DS MEDICATIONS THAT PT WAS TAKING AND [place] CONTINUED: 09-09-2019 CYMBALTA 30MG #30/30DS 09-21-2019 CYMBALTA 60MG #30/30DS 10-24-2019 FOLIC ACID 1MG #90/90DS 11-25-2019 LIDOCAINE PATCH #90/90DS SOME MEDICATIONS ARE PAST DUE FOR REFILL HOWEVER DUE TO THE [facility]ENTS [facility] STAYS HE MAY NOT BE OUT OF SOME MEDICATIONS. OTC MEDS THE PT WAS TAKING: MULTIVITAMIN IRON 3225MG VIT C
--- NOTE | 2019-11-26 14:09 | PM&R Post Admission Assessment ---
PM&R HP Date of Visit: Nov 26, 2019 Time of Visit: 13:00 History of Present Illness CC: Disuse myopathy HPI: This is a 74yoWM who was transferred to [place] on 09/25/19 from [facility] after a small bowel obstruction requiring a resection and continued to have significant delirium with a large wound that required a wound vac. Agitation require Seroquel and Ativan and currently he is stable from that end. Antibiotics completed a couple of day ago for wound infection. Patient has been a challenge because he is not eating well, seems to be depressed and remains on TPN. Pt overall has no significant acute issues to preclude transfer to inpatient rehab and we will do everything we can to lessen care-taker burden along his recovery phase. Past Txvmznk-Bvvvvw-Mfplyy Hx Past Med/Social Hx: Reviewed Nursing Past Med/Soc Hx, Reviewed and Corrections made Patient Social History Marrital Status: Employed/Student: retired Alcohol Use: Occasionally Uses Alcohol Beverage of Choice: Beer Smoking Status: Former Smoker Former Smoker, Quit: Apr 03, 1994 Type Used: Cigarettes 2nd Hand Smoke Exposure: No Recent Hopitalizations: No Immunizations Up To Date Date of Pneumonia Vaccine: Mar 31, 2014 Seasonal Allergies Seasonal Allergies: Yes Past Medical History Surgeries: Abdominal, Bowel Surgery, Orthopedic, Tonsillectomy Respiratory: COPD Currently Using CPAP: No Currently Using BIPAP: No Cardiac: High Cholesterol, Hypertension Reproductive: No Sexually Transmitted Disease: No HIV/AIDS: No Genitourinary: Benign Prostatic Hyperpl Gastrointestinal: Colitis, Gastroesophageal Reflux Musculoskeletal: Arthritis HEENT: Cataract Loss of Vision: Denies Hearing Impairment: Denies Psychosocial: Anxiety, PTSD, Depression History of Blood Disorders: No Adverse Reaction to Blood [place]: No (N/A) Family History Cardiovascular disease 19 FATHER 19 MOTHER Hypertension 19 FATHER 19 MOTHER Hypertension PSH: LIPOMAS REMOVED COLONOSCOPIES EGD'S HIATAL HERNIA REPAIR WITH INCISIONAL HERNIA REPAIR COLON RESECTION FOR DIVERTICULITIS Self Care: Unknown Functional Cognition: Unknown 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 Roll Left to Right: 1 Sit to Lyin Lying to Sitting/Side of Bed: 1 Sit to Stand: 2 Chair/Lrj-on-Tsrhi Xfer: 2 Car Transfer: 1 Walk 10 feet: 88 Walk 50 ft with 2 Turns: 88 Walk 150 ft: 88 Walking 10ft on uneven surface: 88 Wheel 50 ft with 2 turns: 1 Wheel 150 ft: 1 1 Step (curb): 88 4 Steps: 88 12 Steps: 88 Picking up an Object: 88 Eatin Oral Hygiene: 88 Shower/Bathe Self: 10 Upper Body Dressin Lower Body Dressin On/Off Footwear: 1 Toileting Hygiene: 1 PM&R Allergy/Meds/Data Review Allergies Coded Allergies: budesonide (Verified Allergy, Severe, NUMB LIPS, 09/18/19) diphenhydramine (Verified Allergy, Severe, 09/18/19) formoterol (Verified Allergy, Severe, NUMB LIPS, 09/18/19) alprazolam (Verified Adverse Reaction, Intermediate, MENTAL MOOD CHANGE, 09/18/19) SIG OTHER SAID THE PATIENT GETS COMBATIVE,ANGRY AND VIOLENT. SHE STATES THAT HIS BEHAVIOR IS ODD AND UNLIKE HIM Home Medications Scheduled Duloxetine HCl (Cymbalta), 60 MG PO DAILY, (Reported) Duloxetine HCl (Duloxetine HCl), 30 MG PO DAILY, (Reported) Famotidine (Famotidine), 20 MG PO BID, (Reported) Ferrous Sulfate (Ferrous Sulfate), 325 MG PO DAILY, (Reported) Folic Acid (Folic Acid), 1 MG PO DAILY, (Reported) Lactobacillus Acidophilus/Pect (Acidophilus-Pectin Capsule), 2 EACH PO BID, (Reported) Megestrol Acetate (Megestrol Acetate), 40 MG PO BID, (Reported) Melatonin (Melatonin), 10 MG PO 2300, (Reported) Quetiapine Fumarate (Seroquel), 12.5 MG PO DAILY, (Reported) Quetiapine Fumarate (Seroquel), 37.5 MG PO 1700, (Reported) Scheduled PRN Acetaminophen (Tylenol), 650 MG PO Q6H PRN for PAIN-MILD (1-4) OR TEMPATURE, (Reported) Hydrocodone Bit/Acetaminophen (HYDROcodone/APAP 10/325 TABLET), 1 EA PO Q6H PRN for PAIN-SEVERE (8-10), (Reported) Ipratropium/Albuterol Sulfate (Iprat-Albut 0.5-3(2.5) mg/3 ml), 3 ML IH Q4H PRN for SHORTNESS OF BREATH, (Reported) Ondansetron (Ondansetron Odt), 4 MG PO Q6H PRN for NAUSEA/VOMITING-1ST LINE, (Reported) Miscellaneous Medications [Tpn], (Reported) Discontinued Medications Albuterol Sulfate (Proair Hfa), 2 PUFF IH QID PRN for SHORTNESS OF BREATH, (Reported) Discontinued Reason: No Longer Taking Albuterol Sulfate (Albuterol Sulfate), 2.5 MG IH Q4H PRN for SHORTNESS OF BREATH, (Reported) Discontinued Reason: No Longer Taking Ascorbate Calcium (Vitamin C), 500 MG PO DAILY, (Reported) Discontinued Reason: No Longer Taking Diclofenac Sodium (Voltaren), 2 GM TP QID, (Reported) Discontinued Reason: No Longer Taking Lidocaine (Lidocaine 5% Patch), 1 EACH TP Q12H PRN for Neuropathic pain, (Reported) Discontinued Reason: No Longer Taking Metoclopramide HCl (Reglan), 5 MG PO TID Discontinued Reason: No Longer Taking Olanzapine (Olanzapine), 2.5 MG PO BID Discontinued Reason: No Longer Taking Pantoprazole Sodium (Protonix), 40 MG PO DAILY Discontinued Reason: No Longer Taking Current Medications Current Medications Reviewed Review of Systems Constitutional: see HPI, malaise, weakness EENTM: no symptoms reported Respiratory: no symptoms reported Cardiovascular: no symptoms reported Gastrointestinal: abdominal pain, loss of appetite Genitourinary: no symptoms reported Musculoskeletal: back pain Skin: see HPI, other (wound vac) Psychiatric/Neurological: Other (confusion) Physical Exam Physical Exam Vital Signs Capillary Refill : Height, Weight, BMI Height: 6'1.00" Weight: 170lbs. 0.0oz. [id number]; 20.58 BMI Method:Stated General Appearance: No Apparent Distress, WD/WN, Chronically ill, Thin Eyes: Bilateral Eye Normal Inspection, Bilateral Eye PERRL HEENT: PERRL/EOMI, Normal ENT Inspection, Pharynx Normal Neck: Full Range of Motion, Normal Inspection, Non Tender, Supple, Carotid Bruit Respiratory: Chest Non Tender, Lungs Clear, Normal Breath Sounds, No Accessory Muscle Use, No Respiratory Distress Cardiovascular: Regular Rate, Rhythm, No Edema, No Gallop, No JVD, No Murmur, Normal Peripheral Pulses Gastrointestinal: Normal Bowel Sounds, No Organomegaly, No Pulsatile Mass, Soft, Other (wound vac) Back: Normal Inspection, No CVA Tenderness, No Vertebral Tenderness Extremity: Normal Capillary Refill, Normal Inspection, Normal Range of Motion, Non Tender, No Calf Tenderness, No Pedal Edema Neurologic/Psychiatric: Alert, Oriented x3, No Motor/Sensory Deficits, 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 Norm as Tested, Abnormal Gait, Depressed Affect, Motor Weakness (generalized all extremities), Other (confused subtle) Skin: Normal Color, Warm/Dry Lymphatic: No Adenopathy PM&R Medical Assessment & Plan REHAB/MEDICAL ASSESSMENT AND PLAN: REHAB 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 The comorbidities that impact the patients function and/or functional outcome by: Poor appetitie, poor reserve, confusion/delirium, COPD, weight loss REHAB PLAN: The patient is being admitted to our comprehensive inpatient rehabilitation facility and can tolerate the intensity of service consisting of at least: 180 minutes of therapy a day, 5 out of 7 days a week Rehab treatment will consist of: PT OT will focus on regaining enough function to recover and regain function in order to live independently The patient/family has a good understanding of our discharge process and will benefit from an interdisciplinary inpatient rehabilitation program. The patient has potential to make improvement and is in need of at least two of the following multidisciplinary therapies including but not limited to physical, occupational, speech, and prosthetics and orthotics. Additionally the patient will need services from respiratory, nutritional services, wound care, psychology, etc. (Customize this to each patient). Given the patients complex condition and risk of further medical complications, rehabilitation services cannot be safely or effectively provided at a lower level of care such as a nursing home facility. BARRIERS TO DISCHARGE: Poor reserve and nutrition with loss of appetite ESTIMATED LOS: 14 days DISPOSITION: Home RELEVANT CHANGES SINCE PREADMISSION SCREENING: I have compared the patients medical and functional status at the time of the preadmission screening and there are: no changes PROGNOSIS: Guarded REHABILITATION GOALS: 1. PT OT will focus on regaining enough function to recover and regain function in order to live independently All the above goals were reviewed with the patient and he/she is in agreement. By signing this document, I acknowledge that I have personally performed a full physical examination on this patient within 24 hours of admission to this inpatient rehabilitation facility and have determined the patient to be able to tolerate the above course of treatment at an intensive level for a reasonable period of time. I will be completing a detailed individualized Plan of Care for this patient by day #4 of the patients stay based upon the Preadmission Screen, the Post-Admission Evaluation, and the therapy evaluations. Admission Dx/Comorbidities: (1) Myopathy ICD Codes: G72.9 - Myopathy, unspecified (2) Weight loss ICD Codes: R63.4 - Abnormal weight loss (3) Agitation ICD Codes: R45.1 - Restlessness and agitation (4) Lactic acidosis ICD Codes: E87.2 - Acidosis (5) Delirium ICD Codes: R41.0 - Disorientation, unspecified (6) Rheumatoid arthritis Status: Chronic ICD Codes: M06.9 - Rheumatoid arthritis, unspecified (7) COPD (chronic obstructive pulmonary disease) Status: Chronic ICD Codes: J44.9 - Chronic obstructive pulmonary disease, unspecified (8) Dysphagia ICD Codes: R13.10 - Dysphagia, unspecified (9) Gastroparesis Status: Acute ICD Codes: K31.84 - Gastroparesis (10) Colitis Status: Acute ICD Codes: K52.9 - Noninfective gastroenteritis and colitis, unspecified (11) Nausea & vomiting Status: Acute ICD Codes: R11.2 - Nausea with vomiting, unspecified Assessment/Plan Assessment and Plan Assess & Plan/Chief Complaint Assessment: Myopathy Abdominal wound requiring wound vac COPD Weight loss HTN HLP Elevated lactic acid from dehydration Chronic pain Plan: IRF protocol Dr Anthony to manage wound vac TPN Increase PO nutrition ANTONIO BERNSTEIN DO Nov 26, 2019 14:09
[2019-11-26 14:16] VITALS: BP 110/60
[2019-11-26 14:17] VITALS: BP 110/60
--- NOTE | 2019-11-26 15:06 | NUR ---
TPN: 1500, NO LABS AT THIS TIME. WILL START CLINIMIX 4.25%/D5W WITH LYTES AT 83 ML/HR. PROVIDES 675 KCAL WITH 85 GM PROTEIN. WILL DO FULL ASSESSMENT PENDING LABS.
[2019-11-26 16:01] LABS: BASOPHILS % (AUTO) 0 % (0-10); EOSINOPHILS # (AUTO) 0.1 10^3/uL (0.0-0.3); EOSINOPHILS % (AUTO) 1 % (0-10); HEMATOCRIT 37 % (40-54); HEMOGLOBIN 11.7 G/DL (13.3-17.7); LYMPHOCYTES # (AUTO) 2.3 X 10^3 (1.0-4.0); LYMPHOCYTES % (AUTO) 21 % (12-44); MEAN CORPUSCULAR HEMOGLOBIN 27 PG (25-34); MEAN CORPUSCULAR HGB CONC 32 G/DL (32-36); MEAN CORPUSCULAR VOLUME 83 FL (80-99); MEAN PLATELET VOLUME 9.4 FL (7.4-10.4); MONOCYTES # (AUTO) 0.5 X 10^3 (0.0-1.0); MONOCYTES % (AUTO) 4 % (0-12); NEUTROPHILS # (AUTO) 8.2 X 10^3 (1.8-7.8); NEUTROPHILS % (AUTO) 74 % (42-75); PLATELET COUNT 130 10^3/uL (130-400); WHITE BLOOD COUNT 11.1 10^3/uL (4.3-11.0)
[2019-11-26 16:30] VITALS: BP 110/76
[2019-11-26] MEDS ORDERED: NS IV 1000 ML 1,000 ML IV SCH (16:30)
[2019-11-26 16:40] LABS: ALANINE AMINOTRANSFERASE 22 U/L (0-55); ALBUMIN 2.9 GM/DL (3.2-4.5); ALKALINE PHOSPHATASE 108 U/L (40-136); BILIRUBIN,TOTAL 0.6 MG/DL (0.1-1.0); BUN/CREATININE RATIO 23; CALCIUM 9.4 MG/DL (8.5-10.1); CARBON DIOXIDE 23 MMOL/L (21-32); CHLORIDE 102 MMOL/L (98-107); CREATININE SERUM 0.64 MG/DL (0.60-1.30); GFR ESTIMATED > 60; GLUCOSE 83 MG/DL (70-105); POTASSIUM 4.4 MMOL/L (3.6-5.0); SODIUM 134 MMOL/L (135-145); TOTAL PROTEIN 8.7 GM/DL (6.4-8.2)
[2019-11-26] MEDS ORDERED: ENOXAPARIN 30 MG/0.3 ML (LOVENOX) SYR SC SCH (17:00)
--- NOTE | 2019-11-26 17:10 | Diagnostic Imaging Report ---
INDICATION: Elevated lactic acid. TIME OF EXAM: 05:05 p.m. Correlation is made with prior chest from 10/14/2019. FINDINGS: Right upper extremity PICC line has tip overlying the upper SVC. The heart size is normal. Lungs are clear. No infiltrates are detected. The pulmonary vascularity is normal. No effusion or pneumothorax is seen. IMPRESSION: No acute cardiopulmonary process is detected. Dictated by: Dictated on workstation # [id number]
[2019-11-26] MEDS: 1/2 NS IV SOLUTION 1,000 ML IV SCH (17:17)
[2019-11-26] MEDS: AA 4.25% W/LYTES IN D5W IV SOL 1,000 ML IV SCH (17:17)
--- NOTE | 2019-11-26 17:47 | NUR ---
noted pt has reddened area on coccyx, pt arrived w Mepilex patch in place to area
[2019-11-26 19:41] LABS: BILIRUBIN,URINE NEGATIVE (NEGATIVE); COLOR,URINE YELLOW; GLUCOSE, URINE (UA) NEGATIVE (NEGATIVE); KETONES,URINE NEGATIVE (NEGATIVE); LEUKOCYTE ESTERASE ,URINE NEGATIVE (NEGATIVE); NITRITE,URINE NEGATIVE (NEGATIVE); PH,URINE 6.5 (5-9); PROTEIN,URINE TRACE (NEGATIVE)
[2019-11-26 19:48] LABS: CLARITY,URINE SL CLOUDY
[2019-11-26 19:49] LABS: AMORPHOUS SEDIMENT,UR MOD AMOR URATES /LPF; BACTERIA,URINE TRACE /HPF; SQUAMOUS EPITHELIAL CELL,UR RARE /HPF
[2019-11-26] MEDS: polyethylene glycoL POWDER 17 GM (MIRALAX) PACK PO SCH (20:18)
[2019-11-26] MEDS: DOCUSATE SODIUM 100 MG (COLACE) CAP PO SCH (20:25)
[2019-11-26] MEDS: SENNA W/DOCUSATE (SENOKOT S) TABLET PO SCH (20:25)
--- NOTE | 2019-11-26 20:36 | NUR ---
When asking admission questions, pt & state that pt does not want to be on a ventilator.
[2019-11-26] MEDS ORDERED: MELATONIN 10 MG TABLET ONE (21:35)
[2019-11-26] MEDS ORDERED: QUEtiapine 25 MG (SEROquel) TAB IMMEDIATE RELEASE ONE (21:36)
[2019-11-26] MEDS ORDERED: RT-ALBUTEROL/IPRATROPIUM 3 ML (DUONEB) VIAL IH PRN (21:45)
[2019-11-26] MEDS ORDERED: ONDANSETRON 4 MG (ZOFRAN) ORAL DISSOLVE TAB PO PRN (21:45)
[2019-11-26] MEDS: QUEtiapine 25 MG (SEROquel) TAB IMMEDIATE RELEASE PO SCH (21:45)
[2019-11-26] MEDS ORDERED: HALOPERIDOL 5 MG/ML (HALDOL) VIAL IM PRN (21:45)
[2019-11-26] MEDS ORDERED: NON-FORMULARY MEDICATION 1 EA EA (Melatonin 10 MG) PO SCH (23:00)
[2019-11-26] MEDS: HYDROcodone/APAP 10 MG/325 MG (LORTAB) TAB PO PRN (23:21)
[2019-11-27] MEDS: AA 4.25% W/LYTES IN D5W IV SOL 1,000 ML IV SCH (04:12)
[2019-11-27] MEDS: 1/2 NS IV SOLUTION 1,000 ML IV SCH (04:12)
[2019-11-27 04:26] LABS: BASOPHILS % (AUTO) 0 % (0-10); EOSINOPHILS # (AUTO) 0.1 10^3/uL (0.0-0.3); EOSINOPHILS % (AUTO) 0 % (0-10); HEMATOCRIT 26 % (40-54); HEMOGLOBIN 8.1 G/DL (13.3-17.7); LYMPHOCYTES # (AUTO) 3.8 X 10^3 (1.0-4.0); LYMPHOCYTES % (AUTO) 34 % (12-44); MEAN CORPUSCULAR HGB CONC 31 G/DL (32-36); MEAN CORPUSCULAR VOLUME 84 FL (80-99); MEAN PLATELET VOLUME 9.1 FL (7.4-10.4); MONOCYTES # (AUTO) 0.9 X 10^3 (0.0-1.0); MONOCYTES % (AUTO) 8 % (0-12); NEUTROPHILS # (AUTO) 6.5 X 10^3 (1.8-7.8); NEUTROPHILS % (AUTO) 58 % (42-75); PLATELET COUNT 364 10^3/uL (130-400); WHITE BLOOD COUNT 11.2 10^3/uL (4.3-11.0)
[2019-11-27 04:39] LABS: MEAN CORPUSCULAR HEMOGLOBIN 26 PG (25-34)
[2019-11-27 04:54] LABS: ALANINE AMINOTRANSFERASE 15 U/L (0-55); ALBUMIN 2.3 GM/DL (3.2-4.5); ALKALINE PHOSPHATASE 79 U/L (40-136); BILIRUBIN,TOTAL 0.5 MG/DL (0.1-1.0); BUN/CREATININE RATIO 36; CALCIUM 8.1 MG/DL (8.5-10.1); CARBON DIOXIDE 22 MMOL/L (21-32); CHLORIDE 103 MMOL/L (98-107); CREATININE SERUM 0.58 MG/DL (0.60-1.30); GFR ESTIMATED > 60; GLUCOSE 89 MG/DL (70-105); POTASSIUM 4.1 MMOL/L (3.6-5.0); SODIUM 132 MMOL/L (135-145); TOTAL PROTEIN 6.7 GM/DL (6.4-8.2)
[2019-11-27 06:03] VITALS: BP 118/78
--- NOTE | 2019-11-27 08:55 | PM&R Progress Note ---
Subjective HPI/CC On Admission Date Seen by Provider: Nov 27, 2019 Time Seen by Provider: 08:00 Subjective/Events-last exam 11/27/19: Patient doing better and more alert Team conference thought needs behavioral health evaluation No pain reported now since Hydrocodone for hip pain Checked labs TPN ordered Lactic acid elevated was from dehydration and now resolved DC IVF 1/2 NS Conferred with RN Reviewed therapy notes Checked meds and labs Review of Systems General: Fatigue, Malaise Neurological: Weakness Focused Exam Lactate Level 11/26/19 15:50: Lactic Acid Level 2.52*H 11/26/19 19:43: Lactic Acid Level 0.93 Objective Exam Vital Signs Vital Signs Date Time Temp Pulse Resp B/P (MAP) Pulse Ox O2 Delivery O2 Flow Rate FiO2 11/27/19 17:25 36.5 87 16 117/79 (92) 97 Room Air Capillary Refill : Less Than 3 Seconds General Appearance: No Apparent Distress, WD/WN, Chronically ill, Thin HEENT: PERRL/EOMI, Normal ENT Inspection, Pharynx Normal Neck: Full Range of Motion, Normal Inspection, Non Tender, Supple, Carotid Bruit Respiratory: Chest Non Tender, Lungs Clear, Normal Breath Sounds, No Accessory Muscle Use, No Respiratory Distress Cardiovascular: Regular Rate, Rhythm, No Edema, No Gallop, No JVD, No Murmur, Normal Peripheral Pulses Gastrointestinal: Normal Bowel Sounds, No Organomegaly, No Pulsatile Mass, Soft , Other (wound vac) Back: Normal Inspection, No CVA Tenderness, No Vertebral Tenderness Extremity: Normal Capillary Refill, Normal Inspection, Normal Range of Motion, Non Tender, No Calf Tenderness, No Pedal Edema Neurologic/Psychiatric: Alert, Oriented x3, No Motor/Sensory Deficits, 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 FIM Transfers Therapy Code Descriptions/Definitions Functional [place] Measure: 0=Not Assessed/NA 4=Minimal Assistance 1=Total Assistance 5=Supervision or Setup 2=Maximal Assistance 6=Modified [place] 3=Moderate Assistance 7=Complete IndependenceSCALE: Activities may be completed with or without assistive devices. 7-Shwebzznox-kcjrjiy completes the activity by him/herself with no assistance from a helper. 5-Set-up or Clean-up Assistance-helper sets up or cleans up; patient completes activity. [place] assists only prior to or following the activity. 4-Supervision or Touching Assistance-helper provides verbal cues and/or touching/steadying and/or contact guard assistance as patient completes activity. Assistance may be provided throughout the activity or intermittently. 3-Partial/Moderate Assistance-helper does LESS THAN HALF the effort. [place] lifts, holds or supports trunk or limbs, but provides less than half the effort. 2-Substantial/Maximal Assistance-helper does MORE THAN HALF the effort. [place] lifts or holds trunk or limbs and provides more than half the effort. 7-Ratgwsdwa-yxsgas does ALL the effort. Patient does none of the effort to complete the activity. Or, the assistance of 2 or more helpers is required for the patient to complete the activity. If activity was not attempted, code reason: 7-Patient Refused. 9-Not Applicable-not attempted and the patient did not perform the activity before the current illness, exacerbation or injury. 10-Not Attempted due to Environmental Limitations-(lack of equipment, weather restraints, etc.). 88-Not Attempted due to Medical Conditions or Safety Concerns. Roll Left to Right (QC): 1 Sit to Lying (QC): 1 Sit to Stand (QC): 2 Chair/Goe-oc-Dumco Xfer(QC): 2 Car Transfer (QC): 1 Gait Training Walk 10 feet (QC): 88 Walk 50 ft with 2 Turns(QC): 88 Walk 150 ft (QC): 88 Walking 10ft/uneven surface-QC: 88 Wheelchair Training Wheel 50 ft with 2 turns (QC): 1 Wheel 150 ft (QC): 1 Stair Training 1 Step (curb) (QC): 88 4 Steps (QC): 88 12 Steps (QC): 88 Balance Picking up an Object (QC): 88 ADL-Treatment Eating (QC): 10 Oral Hygiene (QC): 88 Shower/Bathe Self (QC): 10 Upper Body Dressing (QC): 7 Lower Body Dressing (QC): 1 On/Off Footwear (QC): 1 Toileting Hygiene (QC): 1 Assessment/Plan Assessment and Plan Assess & Plan/Chief Complaint Assessment: Myopathy Abdominal wound requiring wound vac COPD Weight loss HTN HLP Elevated lactic acid from dehydration Chronic pain Plan: IRF protocol Dr Anthony to manage wound vac TPN Increase PO nutrition 11/27/19: Discontinue IV fluids Maintain TPN Monitor hemoglobin Await iron level (1) Myopathy (2) Weight loss (3) Agitation (4) Lactic acidosis (5) Delirium (6) Rheumatoid arthritis Status: Chronic (7) COPD (chronic obstructive pulmonary disease) Status: Chronic (8) Dysphagia (9) Gastroparesis Status: Acute (10) Colitis Status: Acute (11) Nausea & vomiting Status: Acute ANTONIO BERNSTEIN DO Nov 27, 2019 08:55
--- NOTE | 2019-11-27 08:55 | Individualized Plan of Care ---
Individualized Plan of Care Rehab Nursing IPOC Order Admission Date Nov 26, 2019 at 11:35 Current Orders Orders Admission Order(Inpt,Obs,Sdc) (11/26/19 09:03) Vital Signs: Per Unit Policy ( 08,16,00 (11/26/19 09:03) Gabriel Hayden 09,21 (11/26/19 09:03) Sequential Compression Device Q4H (11/26/19 09:03) Behavior Analyst-Inpt Rehab Con (11/26/19 09:03) Rehab Nursing Orders-Ipoc (11/26/19 09:03) Physical Therapy Rehab Orders (11/26/19 09:03) Occupational Therapy Rehab Ord (11/26/19 09:03) Speech Therapy Rehab Orders (11/26/19 09:03) Cbc With Automated Diff (11/27/19 06:00) Comprehensive Metabolic Panel (11/27/19 06:00) Intake & Output 06,14,22 (11/26/19 09:03) Precautions (Aru) (11/26/19 09:03) Rehab-Intensity Of Therapy (11/26/19 09:03) Calcium Carbonate Chew Tablet (Antacid C (11/26/19 09:15) Docusate Sodium Capsule (Colace Capsule) (11/26/19 21:00) Docusate Sodium Capsule (Colace Capsule) (11/26/19 09:15) Bisacodyl Suppository (Dulcolax Supposit (11/26/19 09:15) Lactulose Oral Solution (Enulose Oral So (11/26/19 09:15) Na Phos/Na Biphos Enema (Fleet Enema Сергей (11/26/19 09:15) Guaifenesin/Codeine Syrup (Robitussin Ac (11/26/19 09:15) Loperamide Tablet (Imodium Tablet) (11/26/19 09:15) Enoxaparin Injection (Lovenox Injection) (11/26/19 09:15) Melatonin Tablet (Melatonin Tablet) (11/26/19 09:15) Polyethylene Glycol Powder Pkt (Miralax (11/26/19 21:00) Ondansetron Oral Dissolve Tab (Zofran (11/26/19 09:15) Senna S Tablet (Senokot S Tablet) (11/26/19 21:00) Initiate Admission Nursing Pro .admission (11/26/19 09:03) Admission Arrival Bed Request (11/26/19 11:35) Dys2 Mechanically Altered (11/26/19 Lunch) Tpn Pharmacy Consult (11/26/19 13:00) Cbc With Automated Diff (11/26/19 14:09) Comprehensive Metabolic Panel (11/26/19 14:09) Lactic Acid Analyzer (11/26/19 14:09) Procalcitonin (Pct) (11/26/19 14:09) Consult General Surgery (11/26/19 14:10) Aa 4.25% W/Lytes In D5w Iv Anabel (Clinimix (11/26/19 17:00) Patient Visit (11/26/19 ) Pt Eval Moderate Complexity (11/26/19 ) Functional Activities, Ea 15 (11/26/19 ) Enoxaparin Injection (Lovenox Injection) (11/26/19 17:00) Ua Culture If Indicated (11/26/19 19:30) Chest 1 View, Ap/Pa Only (11/26/19 16:28) Consult General Surgery (11/26/19 16:29) Ns Iv 1000 Ml (Sodium Chloride 0.9%) (11/26/19 16:30) 1/2 Ns Iv Solution (0.45% Sodium Chlorid (11/26/19 17:00) Nursing Communication (Order) (11/26/19 18:09) Enoxaparin Injection (Lovenox Injection) (11/27/19 09:00) Ensure Enlive (11/27/19 Breakfast) Ambulate 08,12,20 (11/26/19 20:15) Sequential Compression Device Q4H (11/26/19 20:15) Dvt/Vte Risk - Notifiy Physici Q4H (11/26/19 20:15) Code/Resuscitation (11/26/19 20:35) Duloxetine Capsule (Cymbalta Capsule) (11/27/19 09:00) Famotidine Tablet (Pepcid Tablet) (11/27/19 09:00) Folic Acid Tablet (Folic Acid Tablet) (11/27/19 09:00) Hydrocodone/Apap 10/325 Tablet (Lortab 1 (11/26/19 21:45) Albuterol/Ipra Inhalation Soln (Duoneb I (11/26/19 21:45) Lactobacillus Acidophilus Cap (Acidophil (11/27/19 09:00) Megestrol Tablet (Megace Tablet) (11/27/19 09:00) Ondansetron Oral Dissolve Tab (Zofran (11/26/19 21:45) Quetiapine Immediate Release (Seroquel I (11/27/19 09:00) Quetiapine Immediate Release (Seroquel I (11/27/19 17:00) Acetaminophen Tablet/Caplet (Tylenol T (11/26/19 21:45) (Nf) Duloxetine Hcl (Cymbalta) (11/27/19 09:00) Ferrous Sulfate Tablet (Feosol Tablet) (11/27/19 08:00) (Nf) Melatonin (11/26/19 23:00) Haloperidol Injection (Haldol Injectio (11/26/19 21:45) Lorazepam Injection (Ativan Injection) (11/26/19 21:45) Melatonin Tablet (Melatonin) (11/26/19 21:35) Quetiapine Immediate Release (Seroquel I (11/26/19 21:36) Melatonin Tablet (Melatonin) (11/27/19 21:00) Phosphorus (11/27/19 08:44) Magnesium (11/27/19 08:44) Triglycerides (11/27/19 08:44) Iron Test (Fe) (11/27/19 10:31) Sodium Chloride 14.6% Inj (Sodium Chlori (11/27/19 17:00) Sodium Chloride 14.6% Inj (Sodium Chlori (11/27/19 17:00) Patient Visit (11/27/19 ) Exercise Therap, Ea 15 Min (11/27/19 ) Patient Visit (11/27/19 ) Functional Activities, Ea 15 (11/27/19 ) Patient Visit (11/27/19 ) Speech Sound Lang Comp (11/27/19 ) Treat. Speech/Lang/Voice (11/27/19 ) Dysphagia Evaluation Std (11/27/19 ) Dysphagia Therapy (11/27/19 ) Hydrocodone/Apap 10/325 Tablet (Lortab 1 (11/27/19 21:00) Cyanocobalamin Tablet (Vitamin B-12 Tabl (11/28/19 07:00) Lorazepam Tablet (Ativan Tablet) (11/27/19 17:15) Behavorial Health Consult (11/27/19 17:37) Dressing Order (Intervention) BID (11/27/19 17:51) Iron Sucrose Injection (Venofer Injectio (11/28/19 09:00) Rehab Nursing Orders: Ongoing Assess. of Cognitive Status, Ongoing Assess. of Function Status, Bladder Management, Bladder Scan, Bladder Training, Bowel Management, Bowel Training, Disease Management & Educaiton, DVT Prophylaxis, Fall Prevention, Fluid/Electrolyte/Nutrition Mgmt, Infection Prevention, Medication Management & Education, Management of Risks & Complications, Management of Skin Intergrity, Nutrition Management, Pain Management, Patient/Family Support, Safety Management, Swallow Precautions, Wound Management Intensity of Therapy to be met Patient to be seen: Min.3h per day/5 of 7d PT IPOC Problem List: Activity Tolerance, Functional Strength, Safety, Balance, Gait, Transfer, Bed Mobility, ROM Treatment Plan: Continue Plan of Care Bed Mobility, Education, Functional Activity [place], Functional Strength, Group Therapy, Gait, Safety, Therapeutic Exercise, Transfers Treatment Duration: Dec 17, 2019 Frequency: At least 5 of 7 days/Wk (IRF) Estimated Hrs Per Day: 1.5 hours per day OT IPOC Problems: Decreased Activ Tolerance, Decreased Safety Aware, Decreased UE Strength, Dependent Transfers, Impaired Bed Mobility, Impaired Cognition, Impaired Coordination, Impaired Funct Balance, Impaired I ADL's, Impaired Self- Care Skills, Restricted Funct UE ROM OT Treatment, Training and Edu: Yes Plan of Care: ADL Retraining, Caregiver Training, Functional Mobility, Group Exercise/Act as Ind, UE Funct Exercise/Act, UE Neuromus Re-Ed/Coord Treatment Duration: Dec 24, 2019 Frequency: At least 5 of 7 days/Wk (IRF) Estimated Hrs Per Day: 1.[address] IPOC Speech Therapy Treatment Plan: Modify Plan, See Comments Treatment Duration: Nov 27, 2019 Frequency: Modified Program (IRF) Estimated Hrs Per Day: Other Behavior Analyst/Case Mgmt Behavior Analyst/Case Managemen: Discharge Planning Dietitian/Train Planner Dietitian/Train Planner to monitor nutritional status and make changes and/or recommendations as needed and work with speech pathology on dietary upgrades as the occur. Physician IPOC Medical Issues being managed closely and that require the 24 hour availability of a physician: Recent complicated illness requiring [place] for 1 month now remains on TPN and has significant weight loss and loss of reserve at risk for decompensation Medical Issues: Bowel/Bladder Function, DVT Prophylaxis, Falls Precautions, Fluid/Electrolyte/Nutrition Balance, Infection Protection, Pain Management, Wound Care Brief Synthesis of Preadmission Screen, Post-Admission Evaluation, and Therapy Evaluations: PT OT ST will all work on regaining strength and improve independence of ADL's and ambulation and help gain reserve to help heal abd wound. Medical Prognosis: Guarded Anticipated Length of Stay: 14 days ANTONIO BERNSTEIN DO Nov 27, 2019 08:55
[2019-11-27] MEDS ORDERED: NON-FORMULARY MEDICATION 1 EA EA (Duloxetine HCl (Cymbalta) 60 MG) PO SCH (09:00)
[2019-11-27] MEDS: polyethylene glycoL POWDER 17 GM (MIRALAX) PACK PO SCH ×2 (09:00→19:20)
[2019-11-27] MEDS: SENNA W/DOCUSATE (SENOKOT S) TABLET PO SCH ×2 (09:00→19:21)
[2019-11-27 09:09] LABS: MAGNESIUM 1.9 MG/DL (1.6-2.4); PHOSPHORUS 4.4 MG/DL (2.3-4.7)
[2019-11-27] MEDS: ENOXAPARIN 30 MG/0.3 ML (LOVENOX) SYR SC SCH ×2 (09:15→09:40)
--- NOTE | 2019-11-27 09:20 | Occupational Ther Daily Note ---
OT Current Status-Daily Note Subjective Pt. looks at OT but does not verbalize very much. Does give thumbs up if okay throughout treatment. Appearance Pt. in bed. Pt. had taken off his own abdominal wound dressing and thrown it on the floor. His wound was open. Nursing came and dressed wound immediately. Mental Status/Objective Patient Orientation: Unable to Assess Attachments: IV ADL-Treatment Therapy Code Descriptions/Definitions Functional [place] Measure: 0=Not Assessed/NA 4=Minimal Assistance 1=Total Assistance 5=Supervision or Setup 2=Maximal Assistance 6=Modified [place] 3=Moderate Assistance 7=Complete IndependenceSCALE: Activities may be completed with or without assistive devices. 3-Iuheonjlol-jkwavkb completes the activity by him/herself with no assistance from a helper. 5-Set-up or Clean-up Assistance-helper sets up or cleans up; patient completes activity. [place] assists only prior to or following the activity. 4-Supervision or Touching Assistance-helper provides verbal cues and/or touching/steadying and/or contact guard assistance as patient completes activity. Assistance may be provided throughout the activity or intermittently. 3-Partial/Moderate Assistance-helper does LESS THAN HALF the effort. [place] lifts, holds or supports trunk or limbs, but provides less than half the effort. 2-Substantial/Maximal Assistance-helper does MORE THAN HALF the effort. [place] lifts or holds trunk or limbs and provides more than half the effort. 1-Mqgjsbjof-msnehw does ALL the effort. Patient does none of the effort to complete the activity. Or, the assistance of 2 or more helpers is required for the patient to complete the activity. If activity was not attempted, code reason: 7-Patient Refused. 9-Not Applicable-not attempted and the patient did not perform the activity before the current illness, exacerbation or injury. 10-Not Attempted due to Environmental Limitations-(lack of equipment, weather restraints, etc.). 88-Not Attempted due to Medical Conditions or Safety Concerns. Eating (QC): 7 Oral Hygiene (QC): 7 Shower/Bathe Self (QC): 1 Upper Body Dressing (QC): 88 Lower Body Dressing (QC): 1 (brief) On/Off Footwear: 1 Toileting Hygiene (QC): 2 Toilet Transfer (QC): 1 (Mod/max assist x 2.) Other Treatment Pt. in bed. Pt. had urinated on self in bed, and had taken off his own dressing. Nursing notified and comes in to dress wound. Pt. indicates that he wants to call his . Agrees to transfer to chair to achieve this. Max assist to transfer supine-sit. Pt. indicates that he has to have a BM once he is seated on side of bed. Agrees to ambulate to bathroom with walker. Pt. stands with mod assist x 2 from elevated surface. Requires mod x 2 and max cues to take steps and ambulate to bathroom. Max cues to sit onto toilet. Pt. able to have BM. OT lets pt. know that a sponge bath will be performed on toilet surface, as this is easiest for him. Pt. given washcloth, and then looks at it for awhile. Encouraged to wash his arms, and pt. attempts to cleanse rear janet area. Is able to do some, but overall, needs max assist to do thoroughly. Pt. will not wash any other part of his body, and so OT does this for him. Pt. requires max x 2 for stand off of toilet. Freezes in stance and will not take steps. Reclining chair brought in to assist pt. with easier transfer. Pt. able to take a few steps to chair and then sits down. OT dials pt's for him on facetime, but he does not talk to her. OT talks with her and lets her know what he has done for the day. Pt. begins to push phone away. All needs are met and chair alarm is set. Education OT Patient Education: Correct positioning, Modified ADL techniques, Progress toward Goal/Update tx plan, Purpose of tx/functional activities, Reviewed precautions, Rehab process, Transfer techniques Teaching Recipient: Patient Teaching Methods: Demonstration, Discussion Response to Teaching: Unable to Return Demonstration, Unable to Comprehend, Reinforcement Needed OT Short Term Goals Short Term Goals Time Frame: Dec 10, 2019 Eatin Oral hygiene: 3 Toileting hygiene: 2 Shower/bathe self: 2 Upper body dressin Lower body dressin Putting on/taking off footwear: 3 OT Cancer Registrar Goals Halfway Goals Time Frame: Dec 24, 2019 Eating (QC): 4 Oral Hygiene (QC): 4 Toileting Hygiene (QC): 3 Shower/Bathe Self (QC): 3 Upper Body Dressing (QC): 4 Lower Body Dressing (QC): 4 On/Off Footwear (QC): 4 Additional Goals: 1-Demonstrate ADL Tasks, 2-Verbalize Understanding, 3- ImproveStrength/[place] 1=Demonstrate adherence to instructed precautions during ADL tasks. 2=Patient will verbalize/demonstrate understanding of assistive devices/modifi cations for ADL. 3=Patient will improve strength/tolerance for activity to enable patient to perform ADL's. OT Education/Plan Problem List/Assessment Assessment: Decreased Activ Tolerance, Decreased Safety Aware, Decreased UE Strength, Dependent Transfers, Impaired Bed Mobility, Impaired Cognition, Impaired Coordination, Impaired Funct Balance, Impaired I ADL's, Impaired Self- Care Skills, Restricted Funct UE ROM Discharge Recommendations Plan/Recommendations: Continue POC Therapy Discharge Recommendati: 24 Hour Supervision Treatment Plan/Plan of Care Treatment,Training & Education: Yes Patient would benefit from OT for education, treatment and training to promote independence in ADL's, mobility, safety and/or upper extremity function for ADL's. Plan of Care: ADL Retraining, Caregiver Training, Functional Mobility, Group Exercise/Act as Ind, UE Funct Exercise/Act, UE Neuromus Re-Ed/Coord Treatment Duration: Dec 24, 2019 Frequency: At least 5 of 7 days/Wk (IRF) Estimated Hrs Per Day: 1.5 hours per day Agreement: Yes Rehab Potential: Guarded Time/GCodes Start Time: 08:15 Stop Time: 09:15 Total Time Billed (hr/min): 60 Billed Treatment Time 1, ADL x 4 XOCHILT SAMSON OT Nov 27, 2019 09:20
[2019-11-27] MEDS: FERROUS SULF 325 MG (IRON) TAB PO SCH ×2 (09:40→14:30)
[2019-11-27] MEDS: FOLIC ACID 1 MG TAB PO SCH ×2 (09:40→14:30)
[2019-11-27] MEDS: MEGESTROL 40 MG (MEGACE) TAB PO SCH ×3 (09:40→20:21)
[2019-11-27] MEDS: FAMOTIDINE 20 MG (PEPCID) TABLET PO SCH ×3 (09:40→20:20)
[2019-11-27] MEDS: LACTOBACILLUS ACIDOPHILUS (PROBIOTIC) CAPSULE PO SCH ×3 (09:40→20:21)
[2019-11-27] MEDS: DOCUSATE SODIUM 100 MG (COLACE) CAP PO SCH ×3 (09:40→19:21)
[2019-11-27] MEDS: QUEtiapine 25 MG (SEROquel) TAB IMMEDIATE RELEASE PO SCH ×3 (09:43→20:21)
[2019-11-27] MEDS: DULoxetine 30 MG (CYMBALTA) CAP PO SCH ×2 (09:43→14:23)
--- NOTE | 2019-11-27 09:59 | NUR ---
This morning, notified by therapy that patient had removed his abdominal dressing and threw it on the floor. Wound cleaned with sterile saline and gauze. Small amount of brown, creamy drainage laying in wound bed, absorbed into gauze during cleaning. Wound base beefy red, no surrounding redness or swelling noted. No wound orders available at this time. Wet-to-dry dressing placed, covered with ABD and Medipore tape. Assistance during dressing change required to keep patient from touching wound and placing pen or paper in wound. Later, attempted to administer medications to patient. Medication offered on a spoon with chocolate pudding. Patient made a fist, shook his head, and swiped at pudding. Patient did agree to letting nurse give Lovenox shot. Will attempt to give medications again later.
--- NOTE | 2019-11-27 11:03 | NUR ---
TPN: 74 Y/O M, 70 INCHES, ABW 126 IBS, BMI 18.2, LITTLE ORAL INTAKE GOAL; 30 KCAL/KG (1700 KCAL) WITH 1.2-1.5 GM/KG PROTEIN (68-80 GM) PLAN; START TPN AT 68 ML/HR PROVIDING 1500 KCAL WITH 80 GM PROTEIN. ADVANCE TPN PENDING LABS AND ORAL INTAKE.
--- NOTE | 2019-11-27 11:10 | Physical Therapy Daily Note ---
PT Daily Note-Current Subjective Pt reclined in recliner upon arrival. Pt agrees to PT with slight nod. Pain Location: No Pain Reported Mental Status Patient Orientation: Person, Eyes Open Transfers SCALE: Activities may be completed with or without assistive devices. 3-Bvfpjtarwv-tgeoqhn completes the activity by him/herself with no assistance from a helper. 5-Set-up or Clean-up Assistance-helper sets up or cleans up; patient completes activity. [place] assists only prior to or following the activity. 4-Supervision or Touching Assistance-helper provides verbal cues and/or touching/steadying and/or contact guard assistance as patient completes activity. Assistance may be provided throughout the activity or intermittently. 3-Partial/Moderate Assistance-helper does LESS THAN HALF the effort. [place] lifts, holds or supports trunk or limbs, but provides less than half the effort. 2-Substantial/Maximal Assistance-helper does MORE THAN HALF the effort. [place] lifts or holds trunk or limbs and provides more than half the effort. 4-Bposyeejd-vflijc does ALL the effort. Patient does none of the effort to compl ete the activity. Or, the assistance of 2 or more helpers is required for the patient to complete the activity. If activity was not attempted, code reason: 7-Patient Refused. 9-Not Applicable-not attempted and the patient did not perform the activity before the current illness, exacerbation or injury. 10-Not Attempted due to Environmental Limitations-(lack of equipment, weather restraints, etc.). 88-Not Attempted due to Medical Conditions or Safety Concerns. Exercises Supine Ex: Ankle pumps, Quad Set, Glut sets, Heel Slides, Straight leg raise, Hip abd/add Supine Reps: 20 (AAROM) Treatments Pt completes Seated EX at AAROM for most EX. Pt resting with Nurse present to administer meds. Pt has all needs met. Assessment Current Status: Poor Progress Pt did not assist much during EX. Pt appeared heavily medicated. Pt did give resistance during HS Ex. PT Short Term Goals Short Term Goals Time Frame: Dec 03, 2019 Roll Left & Right: 3 Sit to lyin Lying to sitting on side of be: 3 Sit to stand: 3 Chair/jiq-iq-lafas transfer: 3 Walk 10 feet: 3 PT Chcf Goals Chcf Goals PT Chcf Goals Time Frame: Dec 17, 2019 Roll Left & Right (QC): 3 (Marivel) Sit to Lying (QC): 3 (Marivel) Lying-Sitting on Side/Bed(QC): 3 (Marivel) Sit to Stand (QC): 3 (Marivel) Chair/Yeb-vx-Jurxb Xfer(QC): 3 (Marivel) Toilet Transfer (QC): 3 (Marivel) Car Transfer (QC): 3 (Marivel) Does the Patient Walk: No and Walking Goal IS indicated Walk 10 feet (QC): 3 (Marivel) Walk 50ft with 2 Turns (QC): 3 (aMrivel) Walk 150 ft (QC): 88 Walking 10ft on Uneven Surface: 88 1 Step (curb) (QC): 88 4 Steps (QC): 88 12 Steps (QC): 88 Picking up an Object (QC): 88 Wheel 50 feet with 2 turns (QC: 3 (Marivel) Wheel 150 feet: 3 (Marivel) PT Plan Problem List Problem List: Activity Tolerance, Functional Strength, Safety Treatment/Plan Treatment Plan: Continue Plan of Care Treatment Plan: Bed Mobility, Education, Functional Activity Wicho, Functional Strength, Group Therapy, Gait, Safety, Therapeutic Exercise, Transfers Treatment Duration: Dec 17, 2019 Frequency: At least 5 of 7 days/Wk (IRF) Estimated Hrs Per Day: 1.5 hours per day Patient and/or Family Agrees t: Yes Safety Risks/Education Patient Education: Correct Positioning, Safety Issues Teaching Recipient: Patient Teaching Methods: Discussion Response to Teaching: Reinforcement Needed Time/GCodes Time In: 915 Time Out: 945 Total Billed Treatment Time: 30 Total Billed Treatment 1, EX x2 (30m) DEUCE LLOYD [place] ALDERMAN Nov 27, 2019 11:10
--- NOTE | 2019-11-27 14:24 | ST Cognitive Linguistic Eval ---
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 Hull Medical History Pertinent Medical History: COPD, Diverticulitis, GERD, HTN, Rheumatoid Arthritis Reviewed History: Yes Social History Current Living Status: Spouse Speech PLF-Current Status Prior Level of Function Patient lived at home with his who assisted him with his daily needs. Subjective Patient cooperated with the cognitive assessment. Language Eval: Auditory Comprehends Simple Yes/No Ques: Functional Indent/Objects Multiple Pham: Mild Ident/Pics in Multiple Pham: Mild Follows 1-Step Commands: Mild Follows Complex Directions: Moderate Follows General Conversations: Moderate Language Eval: Verbal Language Completes Spontaneous Greeting: Functional Produces Auto, Serial Info: Mild Imitates Simple Words/Phrases: Mild Word Finding: Moderate Requests Basic Needs: Moderate States Basic Personal Info: Moderate Expresses Complex Ideas: Moderate Objective Cognitive Domain Attention: Mild Memory: Moderate Problem Solving: Moderate Executive Functions: Moderate Composite Severity Rating: Moderate Objective Formal/Standardized Tests Attempted to complete the SLUMS, however the patient was unable to complete. Informal tasks completed with q/a and visual cues. Results Moderate to severe deficits Oral Motor/Speech Production Patient's voice is low in volume making his intelligibility decreased. Patient answers y/n and some simple questions, however he is primarily nonverbal. Impression Patient is a 74 y/o man who was admitted to the ARU due to complex medical status. Patient was evaluated by ST with a series of informal tasks. Patient is moderately disordered with decreased speech output and vocalizations. Patient will receive skilled ST to increase communication and cognitive skills. Speech Patient Assess Expression of Ideas/Wants: Rarely/Never (1) Understanding Verbal Content: Sometimes Understands(2) Brief Interview-Mental Status: Yes Repetition of Three Words: One (1) Temporal Orientation: Year: No answer (0) Temporal Orientation: Month: No answer (0) Temporal Orientation: Day: Incorrect or No Answer(0) Recall : Wear to say "Sock": No, could not recall (0) Recall : Color: No, could not recall (0) Recall : Bed: No, could not recall (0) Memory/Recall Ability: None of the above were recalled Speech Short Term Goals Short Term Goals Short Term Goals 1) Patient will complete speech tasks related to his wants/needs with 75% or greater given minimal cues. 2) Patient will complete memory tasks related to his wants/needs with 75% or greater given minimal cues. 3) Patient will complete problem solving tasks related to his wants/needs with 75% or greater given minimal cues. 4) Patient will complete safety awareness tasks related to his wants/needs with 75% or greater given minimal cues. Speech Vehicle Refinisher Goals Vehicle Refinisher Goals Patient will improve cognitive-communication necessary for safety and daily living tasks with minimal assist. Speech-Plan Patient/Family Goals Patient/Family Goals: Patient plans on discharging to home post rehab. Treatment Plan Speech Therapy Treatment Plan: Continue Plan of Care Frequency: 4 times per week (Patient will receive skilled ST 4-5x per week) Estimated Hrs Per Day: .5 hour per day Rehab Potential: Guarded Barriers to Learning: Patient's medical status and age Pt/Family Agrees to Plan: Yes Safety Risks/Education Teaching Recipient: Patient Teaching Methods: Discussion Response to Teaching: Verbalize Understanding, Reinforcement Needed Education Topics Provided: Safety within his room, utilization of the call light Time Speech Therapy Time In: 11:00 Speech Therapy Time Out: 11:45 Total Billed Time: 45 Billed Treatment Time 1, LUDMILA GRAHAM [address] ST Nov 27, 2019 14:24
--- NOTE | 2019-11-27 14:31 | Therapy Group Daily Note ---
Therapy Daily Group Note Patient Education Topic Exercises, Other List Below (Positioning ) Exercises LE Seated Exercise, UE Exercise (theraband) Session Ratio (pt:therapist): 4:1 Goal of Session: UE/LE Strengthing, Other (list) (positioning) Goal Met for this Session: Yes Pt Benefit of Group: Contributions to Others, F/U Use of Strategies @Home, Increased Functional Safety, Increased Functional Strength, Improved Cognition, Recognition of Peers, Socialization Other/Notes Pt transported to OT/PT group via recliner. Group consisted of introductions (name, place living, biggest challenge), socialization, seated UE/LE exercises (theraband UE) and educational topics of benefits of exercise and positioning. Pt introduced self with assistance due to quiet voice and reminders of questions. Pt then became agitated and wanted to leave group. Encouraged pt to stay and participate in group. Pt became increasingly agitated and began to stand and pull blankets off legs. Took pt back to room and pt continued to be aggressive and not wanting to do anything but go down the ortega. Therapists explained that it was not possible at this time to complete at this time. Pt then balled hand in fist and shook it towards NORRIS. Therapist's attempted to calm pt, unable to. Went to report to nrsg, nrsg brought . Pt less aggressive upon seeing . Left pt in care of nrsg and . Pt sitting in recliner. All needs met. Start Time: 13:00 Stop Time: 13:30 Total Billed Treatment Time: 30 Total Billed Treatment 1-GRP FATOUMATA DEL REAL Nov 27, 2019 14:31
--- NOTE | 2019-11-27 14:31 | NUR ---
"RD ASSESSMENT PMHx: COPD; HTN; BPH; colitis; GERD PT INTERACTION: Pt was awake and semi-pleasant during dietary consult for MST score. Pt states current appetite is poor. Note avg PO intake <10% x1d, per chart review. Pt states no issues with chewing/swallowing food. Pt states no issues with nausea, vomiting, constipation or diarrhea, and that his last BM was 11/26. Note pt currently on bowel regimen of colace BID; senna BID; and miralax BID, per chart review. Pt states unsure of recent wt changes. Note recent 33# wt loss x2mon. This is significant wt loss at 21% x2mon. Upon visual assessment, pt appears undernourished with visible signs of muscle/fat wasting, and a BMI of 18.2 (Underweight BMI for age). Given poor PO intake, wt hx, and visual assessment, pt meets criteria for malnutrition per ASPEN guidelines. ABNORMAL NUTRITION-RELATED LAB VALUES LOW: Na 132; cr 0.58; Ca 8.1; alb 2.3 HIGH: BUN 21 Est. kcal needs: 1725 kcal | 30 kcal/kg Est. Pro needs: 69 g Pro | 1.2 g Pro/kg PES STATEMENT: Inadequate oral intake (NI-2.1) related to loss of appetite as evidenced by pt interview | avg PO intake <10% x1d INTERVENTION: Continue with current diet order of DYS2 Mechanically Altered diet, with modifier of [place] Thick Liquids. Note Pharmacy note regarding TPN plan of care to provide TPN of 1500 kcal (26 kcal/kg); 80 g Pro (1.4 g Pro/kg), and increasing to 1700 kcal (30 kcal/kg), and 80 g Pro (1.4 g Pro/kg). Either amount of TPN would provide sufficient kcal and protein to meet nutritional needs, with any PO intake supplementing the TPN. Will continue to follow and reassess as pt needs, intake, and status change. MONITOR/EVALUATE: PO Intake; Plan of Care; Hydration Status; Weight Status; Lab Values Flaco Dave, MS, RD, LD"
--- NOTE | 2019-11-27 14:45 | Physical Therapy Daily Note ---
PT Daily Note-Current Subjective Pt has recently returned to room from Group. Pt had not wanted to participate and Sp is present. Pt agrees to transfer back to bed to lay Supine. Pain Location: No Pain Reported Mental Status Patient Orientation: Person, Confused Transfers SCALE: Activities may be completed with or without assistive devices. 0-Zzwxckaejk-nznulms completes the activity by him/herself with no assistance from a helper. 5-Set-up or Clean-up Assistance-helper sets up or cleans up; patient completes activity. [place] assists only prior to or following the activity. 4-Supervision or Touching Assistance-helper provides verbal cues and/or touching/steadying and/or contact guard assistance as patient completes activity. Assistance may be provided throughout the activity or intermittently. 3-Partial/Moderate Assistance-helper does LESS THAN HALF the effort. [place] lifts, holds or supports trunk or limbs, but provides less than half the effort. 2-Substantial/Maximal Assistance-helper does MORE THAN HALF the effort. [place] lifts or holds trunk or limbs and provides more than half the effort. 5-Xztknuvrn-tdjfwc does ALL the effort. Patient does none of the effort to complete the activity. Or, the assistance of 2 or more helpers is required for the patient to complete the activity. If activity was not attempted, code reason: 7-Patient Refused. 9-Not Applicable-not attempted and the patient did not perform the activity before the current illness, exacerbation or injury. 10-Not Attempted due to Environmental Limitations-(lack of equipment, weather restraints, etc.). 88-Not Attempted due to Medical Conditions or Safety Concerns. Sit to Lying (QC): 4 Sit to Stand (QC): 3 Weight Bearing Full Weight Bearing Full Weight Bearing Treatments Pt is reluctant to complete more PT but agrees to transfer back to bed to rest. STRAIGHTENER AND ALIGNER assists pt to lay Supine with 4 rails up, all needs met, call light next to pt & Sp present. Assessment Current Status: Poor Progress Pt is reluctant to participate in tx, only agreeing to transfer back to lay Supine in bed. Pt is aggressive and tells STRAIGHTENER AND ALIGNER, "let go of me" when STRAIGHTENER AND ALIGNER tries to assist lifting LE into bed. PT Short Term Goals Short Term Goals Time Frame: Dec 03, 2019 Roll Left & Right: 3 Sit to lyin Lying to sitting on side of be: 3 Sit to stand: 3 Chair/rjq-zn-qovmz transfer: 3 Walk 10 feet: 3 PT Newspaper Distributor Supervisor Goals Snf Goals PT Snf Goals Time Frame: Dec 17, 2019 Roll Left & Right (QC): 3 (Marivel) Sit to Lying (QC): 3 (Marivel) Lying-Sitting on Side/Bed(QC): 3 (Marivel) Sit to Stand (QC): 3 (Marivel) Chair/Kej-yb-Gobpy Xfer(QC): 3 (Marivel) Toilet Transfer (QC): 3 (Marivel) Car Transfer (QC): 3 (Marivel) Does the Patient Walk: No and Walking Goal IS indicated Walk 10 feet (QC): 3 (Marivel) Walk 50ft with 2 Turns (QC): 3 (Marivel) Walk 150 ft (QC): 88 Walking 10ft on Uneven Surface: 88 1 Step (curb) (QC): 88 4 Steps (QC): 88 12 Steps (QC): 88 Picking up an Object (QC): 88 Wheel 50 feet with 2 turns (QC: 3 (Marivel) Wheel 150 feet: 3 (Marivel) PT Plan Problem List Problem List: Activity Tolerance, Safety Treatment/Plan Treatment Plan: Continue Plan of Care Treatment Plan: Bed Mobility, Education, Functional Activity W[place]o, Functional Strength, Group Therapy, Gait, Safety, Therapeutic Exercise, Transfers Treatment Duration: Dec 17, 2019 Frequency: At least 5 of 7 days/Wk (IRF) Estimated Hrs Per Day: 1.5 hours per day Patient and/or Family Agrees t: Yes Safety Risks/Education Patient Education: Transfer Techniques, Correct Positioning, Safety Issues Teaching Recipient: Patient, Significant Other Teaching Methods: Discussion Response to Teaching: Verbalize Understanding Time/GCodes Time In: 1345 Time Out: 1400 Total Billed Treatment Time: 15 Total Billed Treatment 1, FA (15m) DEUCE LLOYD STRAIGHTENER AND ALIGNER Nov 27, 2019 14:44
--- NOTE | 2019-11-27 15:17 | NUR ---
Patient Care Conference Met with patient and his spouse to discuss team conference summary. Patient was non-verbal, but did nod "yes" at times during discussion. Information obtained from patient's spouse. Patient's spouse reports utilizing the [facility], Team 4 in [place], for equipment needs. She reports they currently do not have any equipment at home and [facility] the [facility] was at [facility]; however, the patient admitted to ARU and no equipment was obtained. Patient's spouse reports, that prior to hospitalization, the patient was independent with functional mobility, including stairs, and ADLs without the use of adaptive equipment. She reports the patient was not "aggressive" at home, but she has noted increased "aggression" during hospitalization. She contributes this to pain, reporting the patient has rheumatoid arthritis, low back pain ("bone on bone") and hip pain, and when the pain is not controlled, he becomes "aggressive." She reports the patient was taking Hydrocodone, 1 tablet in the morning and 1 tablet at night at home. She is also asking about supplementation with vitamin B12 and vitamin B9, based on her own research and the type of surgery her underwent. (Dr. Anthony on the floor to round at 1537 and informed of the Hydrocodone, Vitamin B12 and Vitamin B9-RN obtained orders from Dr. Anthony). Patient's spouse reports she has been trained as caregiver and assisted in her father's care previously. She also reports she has friends who are trained caregivers and who could be available to assist at discharge if needed. Both are agreeable to continued stay with rechecking progress next Monday. See patient team conference summary for additional information.
--- NOTE | 2019-11-27 15:20 | ST Dysphagia Evaluation ---
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 Hull Medical History Pertinent Medical History: COPD, Diverticulitis, GERD, HTN, Rheumatoid Arthritis Reviewed History: Yes Social History Current Living Status: Spouse Speech PLF/Current-Dysphagia Prior Level of Function Patient lived at his home with his where he ate whatever he wanted. Subjective Patient was cooperative with the Bedside Dysphagia Evaluation. Oral Motor Skills Current Food Consistancy: Mechanical Soft, [place] Liquids Ability to Follow Directions: Fair Oral Expression Ability: Moderate Impairment Voice Voice Phonatory-Based Quality: Weak Voice Pitch: Normal Voice Loudness: Moderately Soft/Quiet, Severely Soft/Quiet Face Facial Symmetry: Symmetrical Oral-Facial Assessment Oral-Facial Dentition: Normal Lingual Protrusion: Abnormal Lingual ROM: Abnormal Lingual Strength: Abnormal Volitional Dry Swallow: Yes Voluntary Cough: Yes Dysphagia Evaluation Consistencies Presented: Thin Liquid, Mechanical Soft, [place] Thick Liquid, Pureed Oral Phase: Reduced Oral Transit Decreased bolus management with all solids. Pharyngeal Phase: Multiple Swallow Attempts Noted piece meal intake of all solids. Swallowing Precautions: Alternate Liquids/Solids, Decreased Bolus 1/2 Tsp, Liquids from Straw, Liquids from Spoon, Small Bites and Sips, Sitting Upright 90 Degrees, Sitting 90 Degrees 30 Post Intake Dysphagia Evaluation Summary Patient is a 74 y/o male who was admitted to the ARU from [facility] where he was placed on TPN and oral. His diet level is currently Dysphagia II with nectar consistency liquids. Patient was given thin at 1/2 tsp x2 with coug h/clear noted after each one. Patient was given 1/2 tsp nectar without difficulty. Patient's presentations of 1/2 tsp of puree and mechanical soft were without difficulty. Patient is recommended to continue on current diet level of Dysphagia II with nectar consistency liquids. Barriers to Learning Patient's medical status and age Speech Short Term Goals Short Term Goals Short Term Goals 1) Patient will complete speech tasks related to his wants/needs with 75% or greater given minimal cues. 2) Patient will complete memory tasks related to his wants/needs with 75% or gr eater given minimal cues. 3) Patient will complete problem solving tasks related to his wants/needs with 75% or greater given minimal cues. 4) Patient will complete safety awareness tasks related to his wants/needs with 75% or greater given minimal cues. 5) Patient will tolerate least restrictive diet level without s/s of aspiration at 80% or greater intake. 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 Speech Skilled Nursing Goals Nightman Goals Patient will improve cognitive-communication necessary for safety and daily living tasks with minimal assist. Patient will maintain adequate nutrition/hydration with oral/TPN intake. Speech-Plan Patient/Family Goals Patient/Family Goals: Patient plans on returning to his home where he lives with his . Treatment Plan Speech Therapy Treatment Plan: Continue Plan of Care Treatment Duration: Dec 12, 2019 Frequency: 4 times per week (Patient will receive skilled ST 4-5x per week) Estimated Hrs Per Day: .5 hour per day Rehab Potential: Guarded Barriers to Learning: Patient's medical status and age Pt/Family Agrees to Plan: Yes Safety Risks/Education Teaching Recipient: Patient Teaching Methods: Discussion Response to Teaching: Verbalize Understanding, Reinforcement Needed Education Topics Provided: Safety or oral intake Time Speech Therapy Time In: 11:00 Speech Therapy Time Out: 11:45 Total Billed Time: 45 Billed Treatment Time 1, NICOLE PAYNE BETHANIA ST Nov 27, 2019 15:20
[2019-11-27] MEDS: SODIUM CHLORIDE IV SCH ×11 (15:41)
[2019-11-27] MEDS: SODIUM ACETATE IV SCH ×11 (15:41)
[2019-11-27] MEDS: [UNRECOGNIZED DRUG - OTHER] IV SCH ×11 (15:41)
--- NOTE | 2019-11-27 15:46 | NUR ---
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 Patient has been hospitalized since 10/07/19 to date starting with small bowel resection. Other comorbidities are, in part, weight loss, cognition impairment/disorientation, COPD, rheumatoid arthritis, dysphagia, abdominal wound with wound vac (recent discontinuance). Patient unable to participate meaningfully in interview, visited with spouse Naya BellEfraínDomo at beside. Patient appears very deconditioned and dependent care, Naya indicates the goal is that patient will return home upon discharge from ARU. Naya stated that [facility] had contacted [facility] [place] to initiate a conversation about home equipment and supportive care. Plastering Supervisor to explore further for details since VA process is slow and arduous. Naya shared that [facility] said patient was not ready to return home and they would not set up services until they deemed him appropriate. Plastering Supervisor reiterated ARU target length of stay is 1-2 weeks and that there it may be necessary to discuss alternative care plans depending on patient's response to acute therapy regime. It should be noted that patient does have Medicare and this insurance is available if [facility] is not the appropriate fit for patient's needs. PCP: Dr. Zayra Carpenter MD, [facility]: [facility] INSURANCE: MEDICARE, [facility], reportedly VA DME: Naya reports patient has NO DME at home. BARRIERS TO DISCHARGE PLANNING: Anticipate malingering for extended stay. Naya expects VA to provide a ramp, a very lengthy process of weeks to months. ARU Team should be consistent about length of stay, target improvement goals and expectations. Facilitating supportive assistive devices and services through most appropriate insurance, Medicare vs VA regarding reasonable timelines. CONTACTS: Naya HooperLina, Spouse [address] [place], [place] [id number] Akhil Oliveros, Son [place], [place] Darryl Oliveros, Son [place], [place] [phone] Naya understands the purpose and process of the weekly patient care conference and that patient's next review will be 12/04/19.
--- NOTE | 2019-11-27 16:30 | NUR ---
Patient becoming agitated with and is leaning his head over the bed railing. Patient verbalizing that needs to take him home. Patient is not consoled. IV Ativan given per orders to help patient relax. Patient refuses oral medications at this time.
[2019-11-27] MEDS: LORazepam INJ 2 MG/ML (ATIVAN) VIAL IVP PRN (16:34)
--- NOTE | 2019-11-27 16:50 | CONSULTATION REPORT ---
DATE OF SERVICE: 11/27/2019 ADMITTING PHYSICIAN: Dr. Hull. ATTENDING PRIMARY CARE PHYSICIAN: Zayra Carpenter MD. HISTORY OF PRESENT ILLNESS: The patient is a 74-year-old male known to us. We had initially seen him in 2017 for left lower quadrant pain. He had a history of diverticulosis and diverticulitis requiring a sigmoid colon resection several years ago. He began with a care through 02/2017. We did a followup colonoscopy on him and was found to have mild hemorrhoids as well as moderate descending colonic diverticulosis. He was recently seen back for change of bowel habits and has been struggling with constipation. He had also noticed red blood per rectum. On 09/20/2019, he underwent an EGD and colonoscopy and found to have a reflux esophagitis stage II, distal esophageal stricture and recurrent hiatal hernia approximately 5 cm in size. He did develop abdominal distention and pain as well as nausea and vomiting and found to have a small-bowel obstruction. He continued to have symptoms consistent with a small-bowel obstruction and underwent exploratory laparotomy, lysis of adhesions, small bowel resection and anastomosis. A significant amount of small bowel was edematous and friable and greater than 50% of his small bowel was resected during that surgery. He was initially admitted to the ICU and eventually went to the floor; however, he did develop a significant amount of confusion and was also not eating well. He has also developed a wound infection and underwent multiple debridement's as well as wound VAC placement. Due to his need for long-term care he was eventually transferred to [place] long-term acute care facility and had been there for approximately three weeks. His states that he did make some slow moderate improvement in terms of eating as well as ambulation as well as mental cognition; however, still does have confusion and appears to be weak and in terms of oral intake is very random and he may be able to eat a significant amount at one time; however, at other times extremely minimal. At this time he is not eating very much at all. His abdominal wound uponexamination appears to be healing well and has granulated in well with no surrounding redness or erythema. PAST MEDICAL HISTORY: Diverticulosis, diverticulitis, gastroesophageal reflux disease, small-bowel obstruction, recurrent hiatal hernia, hypertension, hypercholesterolemia, rheumatoid arthritis, anxiety, depression and PTSD. PAST SURGICAL HISTORY: Sigmoid colon resection, hiatal hernia repair, tonsillectomy, exploratory laparotomy, lysis of adhesions and small bowel resection. ALLERGIES: ALPRAZOLAM AND SYMBICORT. MEDICATIONS: Amlodipine, atorvastatin, albuterol, hydrocodone, Ambien, omeprazole, Cymbalta, iron, Breo Ellipta, methotrexate, baclofen, folic acid, alendronate, ProAir, terazosin. SOCIAL HISTORY: Previous smoker, quit in 1994. Social alcohol. FAMILY HISTORY: Mother, ovarian cancer. Father, hypertension. VITAL SIGNS: Temperature 37.0, blood pressure 118/70, pulse 70, respirations 20, pulse ox 99% on room air. REVIEW OF SYSTEMS: This is a thin-appearing male who is awake and alert, and does answer some questions appropriately; however, does lose focus quickly. He is not experiencing any shortness of breath or difficulty breathing. No chest pain, palpitations, diaphoresis. No nausea, vomiting and is having normal bowel movements. No red blood per rectum, no dark tarry stools. No fever, chills with a significant amount of weight loss since his initial admission and surgery in early October. PHYSICAL EXAMINATION: CHEST: Clear. Good breath sounds bilaterally. HEART: Regular, no murmurs. EXTREMITIES: No lower extremity edema, negative Homans sign. HEENT: No scleral icterus. NECK: No cervical lymphadenopathy. ABDOMEN: Soft, nontender, nondistended with the previous open wound granulating in well with no surrounding redness or erythema and minimal serosanguineous drainage. SKIN: Warm, dry. LABORATORY DATA: WBC 11.2, hemoglobin 8.1, hematocrit 26, platelets 364. BUN 21, creatinine 0.58. ASSESSMENT AND PLAN: A 74-year-old male with previous small-bowel obstruction, status post exploratory laparotomy, lysis of adhesions and also the development of a midline wound infection. Throughout the process, he had developed disuse myopathy as well as mental status changes with confusion as well as a sundowning. We will continue with medical care for this; however, he will need significant amount of occupational and physical therapy to increase his activities of daily living. For his open wound we will recommend wet to dry dressings on a b.i.d. basis. At the request of the , we will also proceed with vitamin B complex supplementation. He also does have a longstanding history of degenerative joint disease and was on hydrocodone 10 mg on a b.i.d. basis at home for many years and we will continue this as well. We will continue to monitor his progress. Job ID: [id number] DocumentID: [id number] Dictated Date: 11/27/2019 16:20:30 Casino Accountant Date: 11/27/2019 16:50:09 Dictated By: ROMAIN LOFTON MD E.[facility] NOBLE HOSPITALAdilson
[2019-11-27] MEDS ORDERED: SODIUM CHLORIDE IV SCH ×10 (17:00)
[2019-11-27] MEDS ORDERED: SODIUM ACETATE IV SCH ×10 (17:00)
[2019-11-27] MEDS ORDERED: [UNRECOGNIZED DRUG - OTHER] IV SCH ×10 (17:00)
[2019-11-27] MEDS ORDERED: LORazepam 1 MG (ATIVAN) TAB PO PRN (17:15)
[2019-11-27 17:25] VITALS: BP 117/79
[2019-11-27] MEDS: MELATONIN 10 MG TABLET PO SCH (20:21)
[2019-11-27] MEDS: HYDROcodone/APAP 10 MG/325 MG (LORTAB) TAB PO SCH (20:21)
[2019-11-28 05:10] VITALS: BP 113/78
--- NOTE | 2019-11-28 06:13 | PM&R Progress Note ---
Subjective HPI/CC On Admission Date Seen by Provider: Nov 28, 2019 Time Seen by Provider: 08:00 Subjective/Events-last exam 11/28/19: Pt very difficult to motivate He exposed himself during group therapy yesterday Colette his having difficulty coping with his very declined state Refuses to eat Maintained on TPN B12 was added after talked to Dr. Anthony in depth Pt has a stage 2 ulcer on his buttock Scheduling Hydrocodone to help his pain Abdominal wound managed by Dr. Anthony 11/27/19: Patient doing better and more alert Team conference thought needs behavioral health evaluation No pain reported now since Hydrocodone for hip pain Checked labs TPN ordered Lactic acid elevated was from dehydration and now resolved DC IVF 1/2 NS Conferred with RN Reviewed therapy notes Checked meds and labs Review of Systems General: Fatigue, Malaise Neurological: Weakness Focused Exam Lactate Level 11/26/19 15:50: Lactic Acid Level 2.52*H 11/26/19 19:43: Lactic Acid Level 0.93 Objective Exam Vital Signs Vital Signs Date Time Temp Pulse Resp B/P (MAP) Pulse Ox O2 Delivery O2 Flow Rate FiO2 11/28/19 23:14 Room Air 11/28/19 18:31 36.4 68 18 135/83 (100) 98 Capillary Refill : Less Than 3 Seconds General Appearance: No Apparent Distress, WD/WN, Chronically ill, Thin HEENT: PERRL/EOMI, Normal ENT Inspection, Pharynx Normal Neck: Full Range of Motion, Normal Inspection, Non Tender, Supple, Carotid Bruit Respiratory: Chest Non Tender, Lungs Clear, Normal Breath Sounds, No Accessory Muscle Use, No Respiratory Distress Cardiovascular: Regular Rate, Rhythm, No Edema, No Gallop, No JVD, No Murmur, Normal Peripheral Pulses Gastrointestinal: Normal Bowel Sounds, No Organomegaly, No Pulsatile Mass, Soft, Other (wound vac) Back: Normal Inspection, No CVA Tenderness, No Vertebral Tenderness Extremity: Normal Capillary Refill, Normal Inspection, Normal Range of Motion, Non Tender, No Calf Tenderness, No Pedal Edema Neurologic/Psychiatric: Alert, Oriented x3, No Motor/Sensory Deficits, ski edge painter II- XII Norm as Tested, Abnormal Gait, Depressed Affect, Motor Weakness (generalized all extremities), Other (confused subtle) Skin: Normal Color, Warm/Dry Lymphatic: No Adenopathy Results/Procedures Lab Patient resulted labs reviewed. FIM Transfers Therapy Code Descriptions/Definitions Functional [place] Measure: 0=Not Assessed/NA 4=Minimal Assistance 1=Total Assistance 5=Supervision or Setup 2=Maximal Assistance 6=Modified [place] 3=Moderate Assistance 7=Complete IndependenceSCALE: Activities may be completed with or without assistive devices. 4-Ekcmfhsygm-mllujxd completes the activity by him/herself with no assistance from a helper. 5-Set-up or Clean-up Assistance-helper sets up or cleans up; patient completes activity. Venus assists only prior to or following the activity. 4-Supervision or Touching Assistance-helper provides verbal cues and/or touching/steadying and/or contact guard assistance as patient completes activity. Assistance may be provided throughout the activity or intermittently. 3-Partial/Moderate Assistance-helper does LESS THAN HALF the effort. Venus lifts, holds or supports trunk or limbs, but provides less than half the effort. 2-Substantial/Maximal Assistance-helper does MORE THAN HALF the effort. Venus lifts or holds trunk or limbs and provides more than half the effort. 4-Rigjeqgud-kixvzo does ALL the effort. Patient does none of the effort to complete the activity. Or, the assistance of 2 or more helpers is required for the patient to complete the activity. If activity was not attempted, code reason: 7-Patient Refused. 9-Not Applicable-not attempted and the patient did not perform the activity before the current illness, exacerbation or injury. 10-Not Attempted due to Environmental Limitations-(lack of equipment, weather restraints, etc.). 88-Not Attempted due to Medical Conditions or Safety Concerns. Roll Left to Right (QC): 1 Sit to Lying (QC): 4 Sit to Stand (QC): 3 Chair/Xxm-lx-Zjtio Xfer(QC): 2 Car Transfer (QC): 1 Gait Training Does the Patient Walk?: No and Walking Goal IS indicated Walk 10 feet (QC): 88 Walk 50 ft with 2 Turns(QC): 88 Walk 150 ft (QC): 88 Walking 10ft/uneven surface-QC: 88 Wheelchair Training Does the Pt Use a Wheelchair?: Yes Wheel 50 ft with 2 turns (QC): 1 Wheel 150 ft (QC): 1 Type of Wheelchair: Manual Stair Training 1 Step (curb) (QC): 88 4 Steps (QC): 88 12 Steps (QC): 88 Balance Picking up an Object (QC): 88 ADL-Treatment Eating (QC): 7 Oral Hygiene (QC): 7 Shower/Bathe Self (QC): 1 Upper Body Dressing (QC): 88 Lower Body Dressing (QC): 1 (brief) On/Off Footwear (QC): 1 Toileting Hygiene (QC): 2 Toilet Transfer (QC): 1 (Mod/max assist x 2.) Assessment/Plan Assessment and Plan Assess & Plan/Chief Complaint Assessment: Myopathy Abdominal wound requiring wound vac COPD Weight loss HTN HLP Elevated lactic acid from dehydration Chronic pain Plan: IRF protocol Dr Anthony to manage wound vac TPN Increase PO nutrition 11/27/19: Discontinue IV fluids Maintain TPN Monitor hemoglobin Await iron level 11/28/19: Patient has difficulty getting ready to participate in therapy Very frail and cachectic Guarded prognosis (1) Myopathy (2) Weight loss (3) Agitation (4) Lactic acidosis (5) Delirium (6) Rheumatoid arthritis Status: Chronic (7) COPD (chronic obstructive pulmonary disease) Status: Chronic (8) Dysphagia (9) Gastroparesis Status: Acute (10) Colitis Status: Acute (11) Nausea & vomiting Status: Acute ANTONIO BERNSTEIN DO Nov 28, 2019 06:13
[2019-11-28] MEDS: CYANOCOBALAMIN 1,000 MCG (VITAMIN B-12) TABLET PO SCH (06:19)
[2019-11-28] MEDS: IRON SUCROSE 200 MG/10 ML (VENOFER) VIAL IV SCH (08:45)
[2019-11-28] MEDS: ENOXAPARIN 30 MG/0.3 ML (LOVENOX) SYR SC SCH (08:46)
[2019-11-28] MEDS: FOLIC ACID 1 MG TAB PO SCH (08:46)
[2019-11-28] MEDS: DOCUSATE SODIUM 100 MG (COLACE) CAP PO SCH ×2 (08:46→20:05)
[2019-11-28] MEDS: SENNA W/DOCUSATE (SENOKOT S) TABLET PO SCH ×2 (08:46→20:04)
[2019-11-28] MEDS: QUEtiapine 25 MG (SEROquel) TAB IMMEDIATE RELEASE PO SCH ×2 (08:46→20:05)
[2019-11-28] MEDS: HYDROcodone/APAP 10 MG/325 MG (LORTAB) TAB PO SCH ×2 (08:46→20:05)
[2019-11-28] MEDS: FERROUS SULF 325 MG (IRON) TAB PO SCH (08:46)
[2019-11-28] MEDS: LACTOBACILLUS ACIDOPHILUS (PROBIOTIC) CAPSULE PO SCH ×2 (08:46→20:04)
[2019-11-28] MEDS: DULoxetine 30 MG (CYMBALTA) CAP PO SCH (08:46)
[2019-11-28] MEDS: MEGESTROL 40 MG (MEGACE) TAB PO SCH ×2 (08:47→20:04)
[2019-11-28] MEDS: FAMOTIDINE 20 MG (PEPCID) TABLET PO SCH ×2 (08:47→20:05)
[2019-11-28] MEDS: polyethylene glycoL POWDER 17 GM (MIRALAX) PACK PO SCH ×2 (09:34→18:54)
--- NOTE | 2019-11-28 10:18 | Occupational Ther Daily Note ---
OT Current Status-Daily Note Subjective Pt seen in bed this am. Pt requires verbal/ tactile cues for response. Pt's eyes remain slightly closed through session unless pt in pain or until end of session when phone rang. Pt requires multiple cues for participation throughout. Pt does not rate pain, but does respond at times with head nods. Pt speaks minimally, requires yes/ no questions and responds minimally. OT/ Pt co-treat from [id number]: OT addresses ADL skills, problem solving, response time/ behaviors, as PT addresses fx ambulation, gross motor/ balance and transfers. OT individual tx: [id number] Mental Status/Objective Patient Orientation: Unable to Assess Attachments: IV ADL-Treatment Therapy Code Descriptions/Definitions Functional [place] Measure: 0=Not Assessed/NA 4=Minimal Assistance 1=Total Assistance 5=Supervision or Setup 2=Maximal Assistance 6=Modified Jennings 3=Moderate Assistance 7=Complete IndependenceSCALE: Activities may be completed with or without assistive devices. 5-Rmkhzxdred-gduhykm completes the activity by him/herself with no assistance from a helper. 5-Set-up or Clean-up Assistance-helper sets up or cleans up; patient completes activity. [facility] assists only prior to or following the activity. 4-Supervision or Touching Assistance-helper provides verbal cues and/or touch ing/steadying and/or contact guard assistance as patient completes activity. Assistance may be provided throughout the activity or intermittently. 3-Partial/Moderate Assistance-helper does LESS THAN HALF the effort. [facility] lifts, holds or supports trunk or limbs, but provides less than half the effort. 2-Substantial/Maximal Assistance-helper does MORE THAN HALF the effort. [facility] lifts or holds trunk or limbs and provides more than half the effort. 9-Prllhjbrq-jacfdb does ALL the effort. Patient does none of the effort to complete the activity. Or, the assistance of 2 or more helpers is required for the patient to complete the activity. If activity was not attempted, code reason: 7-Patient Refused. 9-Not Applicable-not attempted and the patient did not perform the activity before the current illness, exacerbation or injury. 10-Not Attempted due to Environmental Limitations-(lack of equipment, weather restraints, etc.). 88-Not Attempted due to Medical Conditions or Safety Concerns. Oral Hygiene (QC): 7 (denies placing dentures in) Shower/Bathe Self (QC): 1 (TD with Ax2 for participation/ mobility ) Upper Body Dressing (QC): 2 Lower Body Dressing (QC): 1 On/Off Footwear: 1 Toileting Hygiene (QC): 7 Other Treatment Pt seen in bed. Pt does not respond, though opens eyes when OT/ PT enter. Pt does not respond when asked if sponge bath/ shaving sounds good. Pt completes sponge bath in bed/ EOB (max Ax2 to reach EOB) with TD (assist x2 to participate). Pt requires max cues for problem solving/ participation. Pt is educated that therapy is here to assist and that pt can communicate to let us know what pt needs. Pt attempts to lay back down. Pt requires encouragement and assist to sit upright. Good sitting balance in sit. Pt returns to supine position. Pt again educated on purpose of therapy/ use of rehab to improve abilities. Pt lays in bed, and is encouraged to let OT/ PT know if brief is clean or dirty. Pt states, "both," after much time. Pt encouraged to complete janet hygiene, pt does not move. Pt is educated on OT/ PT completing hygiene for pt if not able, pt's briefs assisted in doffing. Pt states, "Get the f away from me." Pt encouraged to complete on his own. Pt continues to not move. Pt is assisted in doffing front portion, pt actively moves brief off janet area and attempts bridge. Pt is encouraged to complete again, pt minimally assists and brief taken from under bottom. Pt given wash cloth for cleansing, pt throws off of bed. Pt educated that if pt does not attempt, OT will need to complete. Pt does not move. When OT attempts to clean, pt attempts to reach for OT's arm. Pt's bottom/ janet area not cleansed as pt adamantly denies through behaviors. Pt's brief donned through rolling and Max Ax2. Pt given gown. Pt tosses to side. Pt asked if desires a gown. Pt nods no. DO enters, pt asked to sit during assessment- on what to sit through assist, pt mouths, "No," pt is thanked for participation and verbals and is laid back to supine. Pt requires max encouragement to sit upright for transfer to recliner, pt minimally resistant during max Ax2 transfer to sit. SPT with max Ax1 to recliner. Pt upright, PT exi ts. Pt's LE's elevated, pt encouraged to shave per 's request. Pt does not respond when asked if okay or not. Pt agrees to place gown on due to being cold per questioning. Pt handed electric razor, pt does not initiate movement. Pt is leaning to L side entire time and does not turn head L/ R when asked for ease of shaving. Pt's face shaved with TD. End of session pt's phone rings and pt initiates purposeful movement to L side, reaches for phone and unlocks/ places on speaker phone. Pt does not speak on phone when other line asks, "Hello? Are you there?" Pt left in recliner with safety measures set, pt brought a warm blanket- eyes are open and pt upright in chair. Pt left with blanket on and call light in reach. Education OT Patient Education: Correct positioning, Purpose of tx/functional activities, Rehab process, Safety issues, Transfer techniques Teaching Recipient: Patient Teaching Methods: Demonstration, Discussion Response to Teaching: Unable to Return Demonstration, Reinforcement Needed OT Short Term Goals Short Term Goals Time Frame: Dec 10, 2019 Eatin Oral hygiene: 3 Toileting hygiene: 2 Shower/bathe self: 2 Upper body dressin Lower body dressin Putting on/taking off footwear: 3 OT Vendor Management Associate Goals Intermediate Goals Time Frame: Dec 24, 2019 Eating (QC): 4 Oral Hygiene (QC): 4 Toileting Hygiene (QC): 3 Shower/Bathe Self (QC): 3 Upper Body Dressing (QC): 4 Lower Body Dressing (QC): 4 On/Off Footwear (QC): 4 Additional Goals: 1-Demonstrate ADL Tasks, 2-Verbalize Understanding, 3-Impr oveStrength/[place]icho 1=Demonstrate adherence to instructed precautions during ADL tasks. 2=Patient will verbalize/demonstrate understanding of assistive devices/modifications for ADL. 3=Patient will improve strength/tolerance for activity to enable patient to perform ADL's. OT Education/Plan Problem List/Assessment Assessment: Decreased Activ Tolerance, Dependent Transfers, Impaired Bed Mobility, Impaired Funct Balance, Impaired I ADL's, Impaired Self-Care Skills Discharge Recommendations Plan/Recommendations: Continue POC Therapy Discharge Recommendati: 24 Hour Supervision Treatment Plan/Plan of Care Treatment,Training & Education: Yes Patient would benefit from OT for education, treatment and training to promote independence in ADL's, mobility, safety and/or upper extremity function for ADL's. Plan of Care: ADL Retraining, Caregiver Training, Functional Mobility, Group Exercise/Act as Ind, UE Funct Exercise/Act, UE Neuromus Re-Ed/Coord Treatment Duration: Dec 24, 2019 Frequency: At least 5 of 7 days/Wk (IRF) Estimated Hrs Per Day: 1.5 hours per day Agreement: Yes Rehab Potential: Guarded Time/GCodes Start Time: 08:00 Stop Time: 09:15 Total Time Billed (hr/min): 75 Billed Treatment Time 1, ADL 5= 75 min OT/ Pt co-treat from [id number]: OT addresses ADL skills, problem solving, re sponse time/ behaviors, as PT addresses fx ambulation, gross motor/ balance and transfers. OT individual tx: MARIA GUADALUPE FARRELL OTR Nov 28, 2019 10:18
--- NOTE | 2019-11-28 10:22 | Speech Therapy Daily Note ---
Speech Daily Progress Note Subjective Date Seen by Provider: Nov 28, 2019 Time Seen by Provider: 00:30 Patient was resting in his recliner watching television when I entered his room. Objective Patient was able to take his medications from the nurse with small sips of liquid without s/s of aspiration. Patient answered simple questions related to himself with 80% given moderate repetitions. Assessment Assessment Current Status: Fair Progress Treatment Plan Continue Plan of Care Speech Short Term Goals Short Term Goals Short Term Goals 1) Patient will complete speech tasks related to his wants/needs with 75% or greater given minimal cues. 2) Patient will complete memory tasks related to his wants/needs with 75% or greater given minimal cues. 3) Patient will complete problem solving tasks related to his wants/needs with 75% or greater given minimal cues. 4) Patient will complete safety awareness tasks related to his wants/needs with 75% or greater given minimal cues. 5) Patient will tolerate least restrictive diet level without s/s of aspiration at 80% or greater intake. 6) Patient/loan manager will utilize compensatory strategies for safest oral intake at 90% or greater. Speech Usp Goals Restaurant Recruiter Goals Patient will improve cognitive-communication necessary for safety and daily living tasks with minimal assist. Patient will maintain adequate nutrition/hydration with oral/TPN intake. Speech-Plan Patient/Family Goals Patient/Family Goals: Patient plans on returning to his home post rehab, however due to his medical status, alternate discharge placement may be more appropriate. Treatment Plan Speech Therapy Treatment Plan: Continue Plan of Care Treatment Duration: Nov 27, 2019 Frequency: Modified Program (IRF) Estimated Hrs Per Day: Other Rehab Potential: Guarded Barriers to Learning: Patient's medical status, age Pt/Family Agrees to Plan: Yes Safety Risks/Education Teaching Recipient: Patient Teaching Methods: Demonstration, Discussion Response to Teaching: Verbalize Understanding, Return Demonstration, Reinfo rcement Needed Education Topics Provided: Contined safety within his room and with oral intake Time Speech Therapy Time In: 10:00 Speech Therapy Time Out: 10:30 Total Billed Time: 30 Billed Treatment Time 1, LUDMILA, JAE Amaya Nov 28, 2019 10:21
--- NOTE | 2019-11-28 10:56 | Physical Therapy Daily Note ---
PT Daily Note-Current Subjective Pt laying Supine in bed upon arrival. Pt very reluctantly participates in PT/OT co-treat. OT/ Pt co-treat from [id number]: OT addresses ADL skills, problem solving, response time/ behaviors, as PT addresses fx ambulation, gross motor/ balance and transfers. Pain Location: No Pain Reported Mental Status Patient Orientation: Person, Confused Transfers SCALE: Activities may be completed with or without assistive devices. 8-Nblkfvhrxk-szfpbbh completes the activity by him/herself with no assistance from a helper. 5-Set-up or Clean-up Assistance-helper sets up or cleans up; patient completes activity. [place] assists only prior to or following the activity. 4-Supervision or Touching Assistance-helper provides verbal cues and/or touching/steadying and/or contact guard assistance as patient completes activity. Assistance may be provided throughout the activity or intermittently. 3-Partial/Moderate Assistance-helper does LESS THAN HALF the effort. [place] lifts, holds or supports trunk or limbs, but provides less than half the effort. 2-Substantial/Maximal Assistance-helper does MORE THAN HALF the effort. [place] lifts or holds trunk or limbs and provides more than half the effort. 2-Boyzvrvku-fiwfjn does ALL the effort. Patient does none of the effort to complete the activity. Or, the assistance of 2 or more helpers is required for the patient to complete the activity. If activity was not attempted, code reason: 7-Patient Refused. 9-Not Applicable-not attempted and the patient did not perform the activity before the current illness, exacerbation or injury. 10-Not Attempted due to Environmental Limitations-(lack of equipment, weather restraints, etc.). 88-Not Attempted due to Medical Conditions or Safety Concerns. Weight Bearing Full Weight Bearing Full Weight Bearing Treatments Pt seen in bed. Pt does not respond, though opens eyes when OT/ PT enter. Pt does not respond when asked if sponge bath/ shaving sounds good. Pt completes sponge bath in bed/ EOB (max Ax2 to reach EOB) with TD (assist x2 to participate). Pt requires max cues for problem solving/ participation. Pt is educated that therapy is here to assist and that pt can communicate to let us know what pt needs. Pt attempts to lay back down. Pt is TD for brief change (attempting to bridge for short time when it was pt's idea but stopped when Therapists attempted to help). Pt is transferred to recliner using SPT at Max A. Pt continues to insist in no clothes. Pt resting and will continue to work with OT. Assessment Current Status: Poor Progress Pt needs continually encouragement. Pt pushes Therapists away and tells them to get the "F away from me". Therapists give explanation as to why Therapy is helping. PT Short Term Goals Short Term Goals Time Frame: Dec 03, 2019 Roll Left & Right: 3 Sit to lyin Lying to sitting on side of be: 3 Sit to stand: 3 Chair/sch-rn-obdlt transfer: 3 Walk 10 feet: 3 PT Half-Way Goals Railway Equipment Operator Goals PT Half-Way Goals Time Frame: Dec 17, 2019 Roll Left & Right (QC): 3 (Mraivel) Sit to Lying (QC): 3 (Marivel) Lying-Sitting on Side/Bed(QC): 3 (Marivel) Sit to Stand (QC): 3 (Marivel) Chair/Efw-uh-Jbqex Xfer(QC): 3 (Marivel) Toilet Transfer (QC): 3 (Marivel) Car Transfer (QC): 3 (Marivel) Does the Patient Walk: No and Walking Goal IS indicated Walk 10 feet (QC): 3 (Marivel) Walk 50ft with 2 Turns (QC): 3 (Marivel) Walk 150 ft (QC): 88 Walking 10ft on Uneven Surface: 88 1 Step (curb) (QC): 88 4 Steps (QC): 88 12 Steps (QC): 88 Picking up an Object (QC): 88 Wheel 50 feet with 2 turns (QC: 3 (Marivel) Wheel 150 feet: 3 (Marivel) PT Plan Problem List Problem List: Activity Tolerance, Functional Strength, Safety, Balance, Gait, Transfer, Bed Mobility Treatment/Plan Treatment Plan: Continue Plan of Care Treatment Plan: Bed Mobility, Education, Functional Activity Wicho, Functional Strength, Group Therapy, Gait, Safety, Therapeutic Exercise, Transfers Treatment Duration: Dec 17, 2019 Frequency: At least 5 of 7 days/Wk (IRF) Estimated Hrs Per Day: 1.5 hours per day Patient and/or Family Agrees t: Yes Safety Risks/Education Patient Education: Transfer Techniques, Correct Positioning, Safety Issues Teaching Recipient: Patient Teaching Methods: Discussion Response to Teaching: Reinforcement Needed Time/GCodes Time In: 800 Time Out: 900 Total Billed Treatment Time: 60 Total Billed Treatment 1, FA x4 (60m) Co-treat with OT 60m (800-900) DEUCE LLOYD PAPER TWISTER TENDER Nov 28, 2019 10:56
--- NOTE | 2019-11-28 12:11 | Progress Note ---
Subjective Date Seen by a Provider: Nov 28, 2019 Time Seen by a Provider: 11:00 Subjective/Events-last exam doing well. still confused. tolerating diet and having bowel fxn however PO intake sporadic. wound intact. Focused Exam Lactate Level 11/26/19 15:50: Lactic Acid Level 2.52*H 11/26/19 19:43: Lactic Acid Level 0.93 Objective Exam Vital Signs Date Time Temp Pulse Resp B/P (MAP) Pulse Ox O2 Delivery O2 Flow Rate FiO2 11/28/19 09:00 Room Air 11/28/19 05:10 36.8 84 18 113/78 (90) 96 Room Air 11/27/19 21:19 Room Air 11/27/19 17:25 36.5 87 16 117/79 (92) 97 Room Air l I & O 11/28/19 07:00 Intake Total 1050 ml Balance 1050 ml Capillary Refill : Less Than 3 Seconds General Appearance: No Apparent Distress HEENT: PERRL/EOMI Neck: Full Range of Motion Respiratory: Chest Non Tender, Lungs Clear Cardiovascular: Regular Rate, Rhythm Gastrointestinal: normal bowel sounds, non tender, soft, other (wound granulating well) Extremity: Normal Capillary Refill Neurologic/Psychiatric: Alert, Disoriented Skin: Normal Color Lymphatic: No Adenopathy Assessment/Plan Assessment/Plan Assess & Plan/Chief Complaint s/p exploratory laparotomy, lysis of adhesions, small bowel resection. continue to encourage PO. cont PT/OT to improve ADL's. continue wet to dry dressing change. Clinical Quality Measures DVT/VTE Risk/Contraindication: Risk Factor Score Per Nursin RFS Level Per Nursing on Admit: 4+=Very High ROMAIN LOFTON MD Nov 28, 2019 12:11
--- NOTE | 2019-11-28 12:22 | Physical Therapy Daily Note ---
PT Daily Note-Current Subjective Pt laying in recliner. DIELECTRIC EMBOSSING MACHINE OPERATOR asked METAL FORGER'S ASSISTANT for assistance to reposition in chair. Mental Status Patient Orientation: Person, Confused Transfers SCALE: Activities may be completed with or without assistive devices. 8-Wblmvdcpsw-emvjlvd completes the activity by him/herself with no assistance from a helper. 5-Set-up or Clean-up Assistance-helper sets up or cleans up; patient completes activity. [place] assists only prior to or following the activity. 4-Supervision or Touching Assistance-helper provides verbal cues and/or touching/steadying and/or contact guard assistance as patient completes activity. Assistance may be provided throughout the activity or intermittently. 3-Partial/Moderate Assistance-helper does LESS THAN HALF the effort. [place] li fts, holds or supports trunk or limbs, but provides less than half the effort. 2-Substantial/Maximal Assistance-helper does MORE THAN HALF the effort. [place] lifts or holds trunk or limbs and provides more than half the effort. 9-Sjcwrrvso-szlywk does ALL the effort. Patient does none of the effort to complete the activity. Or, the assistance of 2 or more helpers is required for the patient to complete the activity. If activity was not attempted, code reason: 7-Patient Refused. 9-Not Applicable-not attempted and the patient did not perform the activity before the current illness, exacerbation or injury. 10-Not Attempted due to Environmental Limitations-(lack of equipment, weather restraints, etc.). 88-Not Attempted due to Medical Conditions or Safety Concerns. Weight Bearing Full Weight Bearing Full Weight Bearing Treatments METAL FORGER'S ASSISTANT assists DIELECTRIC EMBOSSING MACHINE OPERATOR with scooting up and repositioning in recliner. Pt continues to not assist. Pt's lunch is arriving and pt has all needs met, call light next to pt. Assessment Current Status: Poor Progress Pt continues to not participate. PT Short Term Goals Short Term Goals Time Frame: Dec 03, 2019 Roll Left & Right: 3 Sit to lyin Lying to sitting on side of be: 3 Sit to stand: 3 Chair/ett-sk-rbipm transfer: 3 Walk 10 feet: 3 PT Automotive Manufacturer Goals Automotive Manufacturer Goals PT Assisted Goals Time Frame: Dec 17, 2019 Roll Left & Right (QC): 3 (Marivel) Sit to Lying (QC): 3 (Marivel) Lying-Sitting on Side/Bed(QC): 3 (Marivel) Sit to Stand (QC): 3 (Marivel) Chair/Jeu-vl-Zvyev Xfer(QC): 3 (Marivel) Toilet Transfer (QC): 3 (Marivel) Car Transfer (QC): 3 (Marivel) Does the Patient Walk: No and Walking Goal IS indicated Walk 10 feet (QC): 3 (Marivel) Walk 50ft with 2 Turns (QC): 3 (Marivel) Walk 150 ft (QC): 88 Walking 10ft on Uneven Surface: 88 1 Step (curb) (QC): 88 4 Steps (QC): 88 12 Steps (QC): 88 Picking up an Object (QC): 88 Wheel 50 feet with 2 turns (QC: 3 (Marivel) Wheel 150 feet: 3 (Marivel) PT Plan Problem List Problem List: Safety, Transfer Treatment/Plan Treatment Plan: Continue Plan of Care Treatment Plan: Bed Mobility, Education, Functional Activity Wicho, Functional Strength, Group Therapy, Gait, Safety, Therapeutic Exercise, Transfers Treatment Duration: Dec 17, 2019 Frequency: At least 5 of 7 days/Wk (IRF) Estimated Hrs Per Day: 1.5 hours per day Patient and/or Family Agrees t: Yes Safety Risks/Education Patient Education: Transfer Techniques, Safety Issues Teaching Recipient: Patient Teaching Methods: Discussion Response to Teaching: Reinforcement Needed Time/GCodes Time In: 1200 (1215) Time Out: 1215 Total Billed Treatment Time: 15 Total Billed Treatment 1, FA (15m) DEUCE LLOYD METAL FORGER'S ASSISTANT Nov 28, 2019 12:22
--- NOTE | 2019-11-28 15:07 | Behavioral Health Consult ---
Consult- Consult Date Seen by Provider: Nov 28, 2019 Time Seen by Provider: 13:05 I attempted to evaluate Renato's mental status. However, Renato would not respond to anything I asked of him. Information was gathered from his , Colette. Her primary concern is that she feels Renato has regressed from where he was last week. She reported he was eating better and interacting more last week. She mentioned that Renato had a side effect to Xanax in the past where he became disoriented and aggressive. Given that Ativan is in the same class of medication it should be evaluated to determine if some of his behavior is possibly a reaction to Ativan. She also noted that Renato's typical sleep pattern is to be awake at night and sleep during the day. She stated that while at [facility] his medication and time of giving medication was adjusted to help him sleep at night and he did not start his therapies until 10am. I recommend reviewing his records from [facility] to confirm if he was improving and seeing if they were doing something different than is currently being done. Since I was unable to assess Renato it makes it difficult to evaluate his mental health and cognitive abilities. Colette reported that prior to his hospitalization he was not having any significant cognitive deficits or mental health problems. She stated he did struggle in the past with depression and anxiety related to situations with his children, but there is not recent history of mental health problems. LUIS BENSON Nov 28, 2019 15:07
[2019-11-28] MEDS: SODIUM ACETATE IV SCH ×11 (17:03)
[2019-11-28] MEDS: SODIUM CHLORIDE IV SCH ×11 (17:03)
[2019-11-28] MEDS: [UNRECOGNIZED DRUG - OTHER] IV SCH ×11 (17:03)
--- NOTE | 2019-11-28 18:30 | NUR ---
Patient moved to room 232 to be closer to nurses station. Patient removed his abdominal dressing. Wound cleansed and new dressing placed. Patient is more cooperative this evening.
[2019-11-28 18:31] VITALS: BP 135/83
[2019-11-28] MEDS: MELATONIN 10 MG TABLET PO SCH (20:04)
[2019-11-28] MEDS: LORazepam INJ 2 MG/ML (ATIVAN) VIAL IVP PRN (20:06)
[2019-11-29 05:29] VITALS: BP 113/69
[2019-11-29] MEDS: CYANOCOBALAMIN 1,000 MCG (VITAMIN B-12) TABLET PO SCH (06:00)
[2019-11-29 06:07] LABS: ALBUMIN 2.3 GM/DL (3.2-4.5); CHLORIDE 106 MMOL/L (98-107); POTASSIUM 4.1 MMOL/L (3.6-5.0); SODIUM 136 MMOL/L (135-145)
[2019-11-29 06:09] LABS: CALCIUM 8.2 MG/DL (8.5-10.1)
[2019-11-29 06:10] LABS: GLUCOSE 94 MG/DL (70-105); TOTAL PROTEIN 6.7 GM/DL (6.4-8.2); TRIGLYCERIDES 98 MG/DL (<150)
[2019-11-29 06:11] LABS: CARBON DIOXIDE 22 MMOL/L (21-32)
[2019-11-29 06:12] LABS: BILIRUBIN,TOTAL 0.2 MG/DL (0.1-1.0)
[2019-11-29 06:13] LABS: ALKALINE PHOSPHATASE 70 U/L (40-136); PHOSPHORUS 3.9 MG/DL (2.3-4.7)
[2019-11-29 06:14] LABS: CREATININE SERUM 0.53 MG/DL (0.60-1.30); GFR ESTIMATED > 60
[2019-11-29 06:15] LABS: BUN/CREATININE RATIO 34
[2019-11-29 06:16] LABS: MAGNESIUM 1.9 MG/DL (1.6-2.4)
[2019-11-29 06:17] LABS: ALANINE AMINOTRANSFERASE 19 U/L (0-55)
[2019-11-29] MEDS: FERROUS SULF 325 MG (IRON) TAB PO SCH (08:49)
[2019-11-29] MEDS: FOLIC ACID 1 MG TAB PO SCH (08:49)
[2019-11-29] MEDS: LACTOBACILLUS ACIDOPHILUS (PROBIOTIC) CAPSULE PO SCH ×2 (08:49→20:37)
[2019-11-29] MEDS: HYDROcodone/APAP 10 MG/325 MG (LORTAB) TAB PO SCH ×2 (08:49→20:37)
[2019-11-29] MEDS: QUEtiapine 25 MG (SEROquel) TAB IMMEDIATE RELEASE PO SCH ×2 (08:50→16:53)
[2019-11-29] MEDS: FAMOTIDINE 20 MG (PEPCID) TABLET PO SCH ×2 (08:50→20:37)
[2019-11-29] MEDS: MEGESTROL 40 MG (MEGACE) TAB PO SCH ×2 (08:51→20:37)
[2019-11-29] MEDS: SENNA W/DOCUSATE (SENOKOT S) TABLET PO SCH ×2 (08:51→20:37)
[2019-11-29] MEDS: ENOXAPARIN 30 MG/0.3 ML (LOVENOX) SYR SC SCH (08:51)
[2019-11-29] MEDS: DULoxetine 30 MG (CYMBALTA) CAP PO SCH (08:51)
[2019-11-29] MEDS: polyethylene glycoL POWDER 17 GM (MIRALAX) PACK PO SCH ×2 (08:52→20:37)
[2019-11-29] MEDS: DOCUSATE SODIUM 100 MG (COLACE) CAP PO SCH ×2 (08:52→20:37)
--- NOTE | 2019-11-29 09:00 | Physical Therapy Daily Note ---
PT Daily Note-Current Subjective Patient is more alert and cooperative on this date. Mental Status Patient Orientation: Confused Attachments: Central Line Transfers SCALE: Activities may be completed with or without assistive devices. 4-Cxbpbhewdb-eixyoag completes the activity by him/herself with no assistance from a helper. 5-Set-up or Clean-up Assistance-helper sets up or cleans up; patient completes activity. [place] assists only prior to or following the activity. 4-Supervision or Touching Assistance-helper provides verbal cues and/or touching/steadying and/or contact guard assistance as patient completes activity. Assistance may be provided throughout the activity or intermittently. 3-Partial/Moderate Assistance-helper does LESS THAN HALF the effort. [place] lifts, holds or supports trunk or limbs, but provides less than half the effort. 2-Substantial/Maximal Assistance-helper does MORE THAN HALF the effort. [place] lifts or holds trunk or limbs and provides more than half the effort. 5-Vztviqhyi-trmevg does ALL the effort. Patient does none of the effort to complete the activity. Or, the assistance of 2 or more helpers is required for the patient to complete the activity. If activity was not attempted, code reason: 7-Patient Refused. 9-Not Applicable-not attempted and the patient did not perform the activity before the current illness, exacerbation or injury. 10-Not Attempted due to Environmental Limitations-(lack of equipment, weather restraints, etc.). 88-Not Attempted due to Medical Conditions or Safety Concerns. Sit to Stand (QC): 2 (x 5 sets during ADL training with OT cotreat) Patient is slightly retropulsive with sit to stand and prolonged standing at toilet and while dressing. PT addressed balance and transfer training during ADL (cleansing and dressing with OT). Weight Bearing Full Weight Bearing Full Weight Bearing Gait Training Does the Patient Walk?: Yes Distance: 150' x 2 Walk 10 feet (QC): 2 Walk 50 ft with 2 Turns(QC): 2 Walk 150 ft (QC): 2 Gait Persons Needed: 2 Gait Assistive Device: FWW due to safety concerns, patient requires assistance of to to ensure patient and staff safety Treatments OT/PT cotreat due to increased medical complexity, decreased functional mobility, and to decrease fall risk. OT focused on ADLs, cues for sequencing and safety, and UE placement, while PT focused on functional transfers, LE placement, and overall gross movements. Assessment Patient requires time to remain on task and complete tasks. Patient requires redirection as well and will become highly agitated with this. Patient incontinent urine, however, did attempt to perform during session. Continued decreased strength, mobility, endurance and safety awareness. PT Short Term Goals Short Term Goals Time Frame: Dec 03, 2019 Roll Left & Right: 3 Sit to lyin Lying to sitting on side of be: 3 Sit to stand: 3 Chair/bam-tq-ucpdi transfer: 3 Walk 10 feet: 3 PT Inspector [employer]ded [employer] Goals Inspector [employer]ded Parts Goals PT Inspector [employer]ded [employer] Goals Time Frame: Dec 17, 2019 Roll Left & Right (QC): 3 ([place]) Sit to Lying (QC): 3 (Marivel) Lying-Sitting on Side/Bed(QC): 3 ([place]) Sit to Stand (QC): 3 ([place]) Chair/Cuz-pf-Wenih Xfer(QC): 3 ([place]) Toilet Transfer (QC): 3 (Marivel) Car Transfer (QC): 3 (Marivel) Does the Patient Walk: No and Walking Goal IS indicated Walk 10 feet (QC): 3 (Marivel) Walk 50ft with 2 Turns (QC): 3 ([place]) Walk 150 ft (QC): 88 Walking 10ft on Uneven Surface: 88 1 Step (curb) (QC): 88 4 Steps (QC): 88 12 Steps (QC): 88 Picking up an Object (QC): 88 Wheel 50 feet with 2 turns (QC: 3 (Marivel) Wheel 150 feet: 3 (Marivel) PT Plan Treatment/Plan Treatment Plan: Continue Plan of Care Treatment Plan: Bed Mobility, Education, Functional Activity [place], Functional Strength, Group Therapy, Gait, Safety, Therapeutic Exercise, Transfers Treatment Duration: Dec 17, 2019 Frequency: At least 5 of 7 days/Wk (IRF) Estimated Hrs Per Day: 1.5 hours per day Patient and/or Family Agrees t: Yes Time/GCodes Time In: 745 Time Out: 900 Total Billed Treatment Time: 75 Total Billed Treatment 1 visit FA x 4 60 min GT 15 min ANSLEY ARCE PT Nov 29, 2019 09:00
--- NOTE | 2019-11-29 09:01 | Occupational Ther Daily Note ---
OT Current Status-Daily Note Subjective Pt seen upright in recliner. Pt oriented to person only, stating [place] the airport and [place] going to or [place]. Pt much more verbal this date, more appropriate and completes more intentional movements. Pt requires max cues for safety/ continuation of tasks throughout. OT/ PT co-treat throughout due to pt's decreased mobility/ safety awareness. OT addresses ADL tasks, UE movement, problem solving and attention as PT addresses LE movement, balance/ gait, functional transfers. Mental Status/Objective Patient Orientation: Person Attachments: IV ADL-Treatment Therapy Code Descriptions/Definitions Functional [place] Measure: 0=Not Assessed/NA 4=Minimal Assistance 1=Total Assistance 5=Supervision or Setup 2=Maximal Assistance 6=Modified [place] 3=Moderate Assistance 7=Complete IndependenceSCALE: Activities may be completed with or without assistive devices. 9-Mdrlelhbsd-flmnvlu completes the activity by him/herself with no assistance from a helper. 5-Set-up or Clean-up Assistance-helper sets up or cleans up; patient completes activity. [place] assists only prior to or following the activity. 4-Supervision or Touching Assistance-helper provides verbal cues and/or touching/steadying and/or contact guard assistance as patient completes activity. Assistance may be provided throughout the activity or intermittently. 3-Partial/Moderate Assistance-helper does LESS THAN HALF the effort. [place] lifts, holds or supports trunk or limbs, but provides less than half the effort. 2-Substantial/Maximal Assistance-helper does MORE THAN HALF the effort. [place] lifts or holds trunk or limbs and provides more than half the effort. 6-Euyntrsei-fkxyvn does ALL the effort. Patient does none of the effort to complete the activity. Or, the assistance of 2 or more helpers is required for the patient to complete the activity. If activity was not attempted, code reason: 7-Patient Refused. 9-Not Applicable-not attempted and the patient did not perform the activity before the current illness, exacerbation or injury. 10-Not Attempted due to Environmental Limitations-(lack of equipment, weather restraints, etc.). 88-Not Attempted due to Medical Conditions or Safety Concerns. Eating (QC): 6 (Pt reaches into container and gathers cookies, opens cheeze it bag, brings drink to mouth appropriately. ) Oral Hygiene (QC): 7 (Denies ) Upper Body Dressing (QC): 4 (min cues for sequencing/ appropriate positioning. When told pt's shirt on reverse, pt rolls eyes and brings shirt back to lap. Pt requries break and cues for continuation.) Lower Body Dressing (QC): 4 (SBA-CGA while seated in chair (completes BLE threading), stands with min A and buttons with BUE and no UE support on walker (CGA throughout) with success. ) On/Off Footwear: 3 (min A for shoe donning. Education on shoe horn as pt denies untying shoes with demonstration to RLE, pt denies use on LLE.) Toileting Hygiene (QC): 2 (Max A bottom hygiene, s/u and CGA for janet hygiene in stance at toilet.) Toilet Transfer (QC): 4 (CGA throughout stance at toilet, mod cues for safety and positioning with walker.) Other Treatment Pt upright in chair. Verbally responsive to OT this date immediately, requires minimal cues through session for verbal response. Pt requests bathroom, stating needs to go, "now." Pt sit to stand at walker level and ambulates with cues for safety to bathroom. Pt stands and urinates in toielt/ on floor. Need for LB sponge bath which pt completes with min A. OT/ PT co-treat at this time. Pt completes increased ADL tasks through this session- see above. Pt requires cues for sequencing/ continuation of task. Pt requires increased time for these ADL tasks due to fact. Pt sit to stand with increased cues and encouragement and ambulates through commons area with CGA. Pt returns to room, sits in recliner with control, able to open containers to eat food, all needs met, call light in reach. Education OT Patient Education: Correct positioning, Modified ADL techniques, Progress toward Goal/Update tx plan, Purpose of tx/functional activities, Rehab process, Safety issues, Transfer techniques, Use of adapted equipment Teaching Recipient: Patient Teaching Methods: Demonstration, Discussion Response to Teaching: Verbalize Understanding, Return Demonstration OT Short Term Goals Short Term Goals Time Frame: Dec 10, 2019 Eatin Oral hygiene: 3 Toileting hygiene: 2 Shower/bathe self: 2 Upper body dressin Lower body dressin Putting on/taking off footwear: 3 OT Fpc Goals Fpc Goals Time Frame: Dec 24, 2019 Eating (QC): 4 Oral Hygiene (QC): 4 Toileting Hygiene (QC): 3 Shower/Bathe Self (QC): 3 Upper Body Dressing (QC): 4 Lower Body Dressing (QC): 4 On/Off Footwear (QC): 4 Additional Goals: 1-Demonstrate ADL Tasks, 2-Verbalize Understanding, 3- ImproveStrength/[place] 1=Demonstrate adherence to instructed precautions during ADL tasks. 2=Patient will verbalize/demonstrate understanding of assistive devices/modifications for ADL. 3=Patient will improve strength/tolerance for activity to enable patient to perform ADL's. OT Education/Plan Problem List/Assessment Assessment: Decreased Activ Tolerance, Decreased Safety Aware, Decreased UE Strength, Dependent Transfers, Impaired Bed Mobility, Impaired Cognition, Impaired Funct Balance, Impaired I ADL's, Impaired Self-Care Skills Discharge Recommendations Plan/Recommendations: Continue POC Therapy Discharge Recommendati: 24 Hour Supervision Treatment Plan/Plan of Care Treatment,Training & Education: Yes Patient would benefit from OT for education, treatment and training to promote independence in ADL's, mobility, safety and/or upper extremity function for ADL's. Plan of Care: ADL Retraining, Caregiver Training, Functional Mobility, Group Exercise/Act as Ind, UE Funct Exercise/Act, UE Neuromus Re-Ed/Coord Treatment Duration: Dec 24, 2019 Frequency: At least 5 of 7 days/Wk (IRF) Estimated Hrs Per Day: 1.5 hours per day Agreement: Yes Rehab Potential: Guarded Time/GCodes Start Time: 07:45 Stop Time: 09:00 Total Time Billed (hr/min): 75 Billed Treatment Time [id number]: 1, ADL 4 (60), FA (15)= 75 OT/ PT co-treat throughout due to pt's decreased mobility/ safety awareness. OT addresses ADL tasks, UE movement, problem solving and attention as PT addresses LE movement, balance/ gait, functional transfers. MARIA GUADALUPE FARRELL OTR Nov 29, 2019 09:01
--- NOTE | 2019-11-29 10:02 | PM&R Progress Note ---
Subjective HPI/CC On Admission Date Seen by Provider: Nov 29, 2019 Time Seen by Provider: 08:00 Subjective/Events-last exam 11/29/19: Pt remains very thin Will see if Dr. Anthony can put a feeding tube in but due to the abdominal wound likely that won't be an option Calorie count will be initiated Eating snacks and candy Last BM was two days ago 11/28/19: Pt very difficult to motivate He exposed himself during group therapy yesterday Colette his having difficulty coping with his very declined state Refuses to eat Maintained on TPN B12 was added after talked to Dr. Anthony in depth Pt has a stage 2 ulcer on his buttock Scheduling Hydrocodone to help his pain Abdominal wound managed by Dr. Anthony 11/27/19: Patient doing better and more alert Team conference thought needs behavioral health evaluation No pain reported now since Hydrocodone for hip pain Checked labs TPN ordered Lactic acid elevated was from dehydration and now resolved DC IVF 1/2 NS Conferred with RN Reviewed therapy notes Checked meds and labs Review of Systems General: Fatigue, Malaise Neurological: Weakness Focused Exam Lactate Level Objective Exam Vital Signs Vital Signs Date Time Temp Pulse Resp B/P (MAP) Pulse Ox O2 Delivery O2 Flow Rate FiO2 11/29/19 21:00 Room Air 11/29/19 18:41 97 11/29/19 16:30 36.4 84 16 107/63 (78) Capillary Refill : Less Than 3 Seconds General Appearance: No Apparent Distress, WD/WN, Chronically ill, Thin HEENT: PERRL/EOMI, Normal ENT Inspection, Pharynx Normal Neck: Full Range of Motion, Normal Inspection, Non Tender, Supple, Carotid Bruit Respiratory: Chest Non Tender, Lungs Clear, Normal Breath Sounds, No Accessory Muscle Use, No Respiratory Distress Cardiovascular: Regular Rate, Rhythm, No Edema, No Gallop, No JVD, No Murmur, Normal Peripheral Pulses Gastrointestinal: Normal Bowel Sounds, No Organomegaly, No Pulsatile Mass, Soft, Other (wound vac) Back: Normal Inspection, No CVA Tenderness, No Vertebral Tenderness Extremity: Normal Capillary Refill, Normal Inspection, Normal Range of Motion, Non Tender, No Calf Tenderness, No Pedal Edema Neurologic/Psychiatric: Alert, Oriented x3, No Motor/Sensory Deficits, mud analysis well logging captain II- XII Norm as Tested, Abnormal Gait, Depressed Affect, Motor Weakness (generalized all extremities), Other (confused subtle) Skin: Normal Color, Warm/Dry Lymphatic: No Adenopathy Results/Procedures Lab Patient resulted labs reviewed. FIM Transfers Therapy Code Descriptions/Definitions Functional [place] Measure: 0=Not Assessed/NA 4=Minimal Assistance 1=Total Assistance 5=Supervision or Setup 2=Maximal Assistance 6=Modified [place] 3=Moderate Assistance 7=Complete IndependenceSCALE: Activities may be completed with or without assistive devices. 0-Zatedhdtfy-lhdixzs completes the activity by him/herself with no assistance from a helper. 5-Set-up or Clean-up Assistance-helper sets up or cleans up; patient completes activity. [place] assists only prior to or following the activity. 4-Supervision or Touching Assistance-helper provides verbal cues and/or touching/steadying and/or contact guard assistance as patient completes activity. Assistance may be provided throughout the activity or intermittently. 3-Partial/Moderate Assistance-helper does LESS THAN HALF the effort. [place] lifts, holds or supports trunk or limbs, but provides less than half the effort. 2-Substantial/Maximal Assistance-helper does MORE THAN HALF the effort. [place] lifts or holds trunk or limbs and provides more than half the effort. 1-Awypylxjo-wdbfww does ALL the effort. Patient does none of the effort to complete the activity. Or, the assistance of 2 or more helpers is required for the patient to complete the activity. If activity was not attempted, code reason: 7-Patient Refused. 9-Not Applicable-not attempted and the patient did not perform the activity before the current illness, exacerbation or injury. 10-Not Attempted due to Environmental Limitations-(lack of equipment, weather restraints, etc.). 88-Not Attempted due to Medical Conditions or Safety Concerns. Roll Left to Right (QC): 1 Sit to Lying (QC): 4 Sit to Stand (QC): 2 (x 5 sets during ADL training with OT cotreat) Chair/Bai-sf-Lrbhc Xfer(QC): 2 Car Transfer (QC): 1 Gait Training Does the Patient Walk?: Yes Distance: 150' x 2 Walk 10 feet (QC): 2 Walk 50 ft with 2 Turns(QC): 2 Walk 150 ft (QC): 2 Walking 10ft/uneven surface-QC: 88 Gait Persons Needed: 2 Gait Assistive Device: FWW Wheelchair Training Does the Pt Use a Wheelchair?: Yes Wheel 50 ft with 2 turns (QC): 1 Wheel 150 ft (QC): 1 Type of Wheelchair: Manual Stair Training 1 Step (curb) (QC): 88 4 Steps (QC): 88 12 Steps (QC): 88 Balance Picking up an Object (QC): 88 ADL-Treatment Eating (QC): 6 (Pt reaches into container and gathers cookies, opens cheeze it bag, brings drink to mouth appropriately. ) Oral Hygiene (QC): 7 (Denies ) Shower/Bathe Self (QC): 1 (TD with Ax2 for participation/ mobility ) Upper Body Dressing (QC): 4 (min cues for sequencing/ appropriate positioning ) Lower Body Dressing (QC): 4 (SBA-CGA while seated in chair (completes BLE threading), stands with min A and buttons with BUE and no UE support on walker (CGA throughout) with success. ) On/Off Footwear (QC): 3 (min A for shoe donning. Education on shoe horn as pt denies untying shoes.) Toileting Hygiene (QC): 2 (Max A bottom hygiene, s/u and CGA for janet hygiene in stance at toilet.) Toilet Transfer (QC): 4 (CGA throughout stance at toilet, mod cues for safety and positioning with walker.) Assessment/Plan Assessment and Plan Assess & Plan/Chief Complaint Assessment: Myopathy Abdominal wound requiring wound vac COPD Weight loss HTN HLP Elevated lactic acid from dehydration Chronic pain Plan: IRF protocol Dr Anthony to manage wound vac TPN Increase PO nutrition 11/27/19: Discontinue IV fluids Maintain TPN Monitor hemoglobin Await iron level 11/28/19: Patient has difficulty getting ready to participate in therapy Very frail and cachectic Guarded prognosis 11/29/19: Calorie count Appreciate Dr. Anthony evaluate patient for a feeding tube Eating snacks and candy Bowels moved 2 days ago Prognosis guarded (1) Myopathy (2) Weight loss (3) Agitation (4) Lactic acidosis (5) Delirium (6) Rheumatoid arthritis Status: Chronic (7) COPD (chronic obstructive pulmonary disease) Status: Chronic (8) Dysphagia (9) Gastroparesis Status: Acute (10) Colitis Status: Acute (11) Nausea & vomiting Status: Acute ANTONIO BERNSTEIN DO Nov 29, 2019 10:02
--- NOTE | 2019-11-29 12:43 | Speech Therapy Daily Note ---
Speech Daily Progress Note Subjective Date Seen by Provider: Nov 29, 2019 Time Seen by Provider: 00:30 Patient was resting in his recliner watching television. Patient was noted to be sliding out of the chair so nursing was called with repositioning completed by nurse and PT. Objective Patient completed a series of simple y/n and general questions related to immediate self and recall of information with 40% given maximum cues. Assessment Assessment Current Status: Poor Progress Treatment Plan Continue Plan of Care Speech Short Term Goals Short Term Goals Short Term Goals 1) Patient will complete speech tasks related to his wants/needs with 75% or greater given minimal cues. 2) Patient will complete memory tasks related to his wants/needs with 75% or greater given minimal cues. 3) Patient will complete problem solving tasks related to his wants/needs with 75% or greater given minimal cues. 4) Patient will complete safety awareness tasks related to his wants/needs with 75% or greater given minimal cues. 5) Patient will tolerate least restrictive diet level without s/s of aspiration at 80% or greater intake. 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 Speech Senior Care Goals [employer] Developer Goals Patient will improve cognitive-communication necessary for safety and daily living tasks with minimal assist. Patient will maintain adequate nutrition/hydration with oral/TPN intake. Speech-Plan Patient/Family Goals Patient/Family Goals: Patient's discharge plans are unknown at this time. Initially he planned to return to his home, however due to his functional status this discharge would not be considered the safest for him. Treatment Plan Speech Therapy Treatment Plan: Continue Plan of Care Treatment Duration: Nov 27, 2019 Frequency: Modified Program (IRF) Estimated Hrs Per Day: Other Rehab Potential: Guarded Barriers to Learning: Patient's age, medical status, cognitive deficits Pt/Family Agrees to Plan: Yes Safety Risks/Education Teaching Recipient: Patient Teaching Methods: Demonstration, Discussion Response to Teaching: Verbalize Understanding, Return Demonstration, Reinforcement Needed Education Topics Provided: Continued safety within his room and utilization of the call light as needed Time Speech Therapy Time In: 11:30 Speech Therapy Time Out: 12:00 Total Billed Time: 30 Billed Treatment Time 1, SLTS, DYST JAE Cardona Nov 29, 2019 12:42
--- NOTE | 2019-11-29 13:28 | NUR ---
TPN: TPN ADVANCED TO [address] WITH 80 GM PROTEIN. RUNNING AT 68 ML/HR.
[2019-11-29] MEDS: HYDROcodone/APAP 10 MG/325 MG (LORTAB) TAB PO PRN (13:36)
[2019-11-29 16:30] VITALS: BP 107/63
[2019-11-29] MEDS: [UNRECOGNIZED DRUG - OTHER] IV SCH ×11 (18:27)
[2019-11-29] MEDS: SODIUM CHLORIDE IV SCH ×11 (18:27)
[2019-11-29] MEDS: SODIUM ACETATE IV SCH ×11 (18:27)
[2019-11-29] MEDS: LORazepam INJ 2 MG/ML (ATIVAN) VIAL IVP PRN (19:52)
[2019-11-29] MEDS: MELATONIN 10 MG TABLET PO SCH (20:37)
[2019-11-30] MEDS: CYANOCOBALAMIN 1,000 MCG (VITAMIN B-12) TABLET PO SCH (05:47)
[2019-11-30 06:00] VITALS: BP 126/79
--- NOTE | 2019-11-30 07:37 | PM&R Progress Note ---
Subjective HPI/CC On Admission Date Seen by Provider: Nov 30, 2019 Time Seen by Provider: 11:00 Subjective/Events-last exam 11/30/19: Aggressive and paranoid today Struck out at aide Snacks on candy most of day TPN maintained No BM for 3 days refuses laxatives which are liquid 11/29/19: Pt remains very thin Will see if Dr. Anthony can put a feeding tube in but due to the abdominal wound likely that won't be an option Calorie count will be initiated Eating snacks and candy Last BM was two days ago 11/28/19: Pt very difficult to motivate He exposed himself during group therapy yesterday Colette his having difficulty coping with his very declined state Refuses to eat Maintained on TPN B12 was added after talked to Dr. Anthony in depth Pt has a stage 2 ulcer on his buttock Scheduling Hydrocodone to help his pain Abdominal wound managed by Dr. Anthony 11/27/19: Patient doing better and more alert Team conference thought needs behavioral health evaluation No pain reported now since Hydrocodone for hip pain Checked labs TPN ordered Lactic acid elevated was from dehydration and now resolved DC IVF 1/2 NS Conferred with RN Reviewed therapy notes Checked meds and labs Review of Systems General: Fatigue, Malaise Neurological: Confusion Objective Exam Vital Signs Vital Signs Date Time Temp Pulse Resp B/P (MAP) Pulse Ox O2 Delivery O2 Flow Rate FiO2 11/30/19 09:00 Room Air 11/30/19 06:00 37.0 75 16 126/79 (95) 97 Capillary Refill : Less Than 3 Seconds General Appearance: No Apparent Distress, WD/WN, Chronically ill, Thin HEENT: PERRL/EOMI, Normal ENT Inspection, Pharynx Normal Neck: Full Range of Motion, Normal Inspection, Non Tender, Supple, Carotid Bruit Respiratory: Chest Non Tender, Lungs Clear, Normal Breath Sounds, No Accessory Muscle Use, No Respiratory Distress Cardiovascular: Regular Rate, Rhythm, No Edema, No Gallop, No JVD, No Murmur, Normal Peripheral Pulses Gastrointestinal: Normal Bowel Sounds, No Organomegaly, No Pulsatile Mass, Soft, Other (wound vac) Back: Normal Inspection, No CVA Tenderness, No Vertebral Tenderness Extremity: Normal Capillary Refill, Normal Inspection, Normal Range of Motion, Non Tender, No Calf Tenderness, No Pedal Edema Neurologic/Psychiatric: Alert, Oriented x3, No Motor/Sensory Deficits, regulatory affairs coordinator II- XII Norm as Tested, Abnormal Gait, Depressed Affect, Motor Weakness (generalized all extremities), Other (confused subtle) Skin: Normal Color, Warm/Dry Lymphatic: No Adenopathy Results/Procedures Lab Patient resulted labs reviewed. FIM Transfers Therapy Code Descriptions/Definitions Functional [place] Measure: 0=Not Assessed/NA 4=Minimal Assistance 1=Total Assistance 5=Supervision or Setup 2=Maximal Assistance 6=Modified [place] 3=Moderate Assistance 7=Complete IndependenceSCALE: Activities may be completed with or without assistive devices. 1-Xiwiqweyki-isrcujm completes the activity by him/herself with no assistance from a helper. 5-Set-up or Clean-up Assistance-helper sets up or cleans up; patient completes activity. [place] assists only prior to or following the activity. 4-Supervision or Touching Assistance-helper provides verbal cues and/or touching/steadying and/or contact guard assistance as patient completes activity. Assistance may be provided throughout the activity or intermittently. 3-Partial/Moderate Assistance-helper does LESS THAN HALF the effort. [place] lifts, holds or supports trunk or limbs, but provides less than half the effort. 2-Substantial/Maximal Assistance-helper does MORE THAN HALF the effort. [place] lifts or holds trunk or limbs and provides more than half the effort. 9-Zegkjwivc-jrigpf does ALL the effort. Patient does none of the effort to complete the activity. Or, the assistance of 2 or more helpers is required for the patient to complete the activity. If activity was not attempted, code reason: 7-Patient Refused. 9-Not Applicable-not attempted and the patient did not perform the activity before the current illness, exacerbation or injury. 10-Not Attempted due to Environmental Limitations-(lack of equipment, weather restraints, etc.). 88-Not Attempted due to Medical Conditions or Safety Concerns. Roll Left to Right (QC): 1 Sit to Lying (QC): 4 Sit to Stand (QC): 2 (x 5 sets during ADL training with OT cotreat) Chair/Dft-pd-Nubeb Xfer(QC): 2 Car Transfer (QC): 1 Gait Training Does the Patient Walk?: Yes Distance: 150' x 2 Walk 10 feet (QC): 2 Walk 50 ft with 2 Turns(QC): 2 Walk 150 ft (QC): 2 Walking 10ft/uneven surface-QC: 88 Gait Persons Needed: 2 Gait Assistive Device: FWW Wheelchair Training Does the Pt Use a Wheelchair?: Yes Wheel 50 ft with 2 turns (QC): 1 Wheel 150 ft (QC): 1 Type of Wheelchair: Manual Stair Training 1 Step (curb) (QC): 88 4 Steps (QC): 88 12 Steps (QC): 88 Balance Picking up an Object (QC): 88 ADL-Treatment Eating (QC): 6 (Pt reaches into container and gathers cookies, opens cheeze it bag, brings drink to mouth appropriately. ) Oral Hygiene (QC): 7 (Denies ) Shower/Bathe Self (QC): 1 (TD with Ax2 for participation/ mobility ) Upper Body Dressing (QC): 4 (min cues for sequencing/ appropriate positioning. When told pt's shirt on reverse, pt rolls eyes and brings shirt back to lap. Pt requries break and cues for continuation.) Lower Body Dressing (QC): 4 (SBA-CGA while seated in chair (completes BLE threading), stands with min A and buttons with BUE and no UE support on walker (CGA throughout) with success. ) On/Off Footwear (QC): 3 (min A for shoe donning. Education on shoe horn as pt denies untying shoes with demonstration to RLE, pt denies use on LLE.) Toileting Hygiene (QC): 2 (Max A bottom hygiene, s/u and CGA for janet hygiene in stance at toilet.) Toilet Transfer (QC): 4 (CGA throughout stance at toilet, mod cues for safety and positioning with walker.) Assessment/Plan Assessment and Plan Assess & Plan/Chief Complaint Assessment: Myopathy Abdominal wound requiring wound vac COPD Weight loss HTN HLP Elevated lactic acid from dehydration Chronic pain Plan: IRF protocol Dr Anthony to manage wound vac TPN Increase PO nutrition 11/27/19: Discontinue IV fluids Maintain TPN Monitor hemoglobin Await iron level 11/28/19: Patient has difficulty getting ready to participate in therapy Very frail and cachectic Guarded prognosis 11/29/19: Calorie count Appreciate Dr. Anthony evaluate patient for a feeding tube Eating snacks and candy Bowels moved 2 days ago Prognosis guarded 11/30/19: Monitor aggressive behavior Monitor closely Prognosis poor (1) Myopathy (2) Weight loss (3) Agitation (4) Lactic acidosis (5) Delirium (6) Rheumatoid arthritis Status: Chronic (7) COPD (chronic obstructive pulmonary disease) Status: Chronic (8) Dysphagia (9) Gastroparesis Status: Acute (10) Colitis Status: Acute (11) Nausea & vomiting Status: Acute ANTONIO BERNSTEIN DO Nov 30, 2019 07:37
[2019-11-30] MEDS: polyethylene glycoL POWDER 17 GM (MIRALAX) PACK PO SCH ×2 (09:00→20:21)
[2019-11-30] MEDS: IRON SUCROSE 200 MG/10 ML (VENOFER) VIAL IV SCH (09:23)
[2019-11-30] MEDS: ENOXAPARIN 30 MG/0.3 ML (LOVENOX) SYR SC SCH (09:23)
[2019-11-30] MEDS: FERROUS SULF 325 MG (IRON) TAB PO SCH (09:23)
[2019-11-30] MEDS: DULoxetine 30 MG (CYMBALTA) CAP PO SCH (09:23)
[2019-11-30] MEDS: LACTOBACILLUS ACIDOPHILUS (PROBIOTIC) CAPSULE PO SCH ×2 (09:23→20:04)
[2019-11-30] MEDS: FOLIC ACID 1 MG TAB PO SCH (09:23)
[2019-11-30] MEDS: DOCUSATE SODIUM 100 MG (COLACE) CAP PO SCH ×2 (09:23→20:21)
[2019-11-30] MEDS: HYDROcodone/APAP 10 MG/325 MG (LORTAB) TAB PO SCH ×2 (09:24→18:32)
[2019-11-30] MEDS: QUEtiapine 25 MG (SEROquel) TAB IMMEDIATE RELEASE PO SCH ×2 (09:24→17:05)
[2019-11-30] MEDS: MEGESTROL 40 MG (MEGACE) TAB PO SCH ×2 (09:24→20:04)
[2019-11-30] MEDS: FAMOTIDINE 20 MG (PEPCID) TABLET PO SCH ×2 (09:24→20:04)
[2019-11-30] MEDS: SENNA W/DOCUSATE (SENOKOT S) TABLET PO SCH ×2 (09:24→20:04)
--- NOTE | 2019-11-30 11:50 | Physical Therapy Daily Note ---
PT Daily Note-Current Subjective Pt up in recliner. Pt refused all attempts to get pt to walk. Pt partially agreed to ther ex in chair. 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 Otherwise, little to no verbalizations. Mental Status Patient Orientation: Person Transfers SCALE: Activities may be completed with or without assistive devices. 1-Rexbchkcno-jfpwtco completes the activity by him/herself with no assistance from a helper. 5-Set-up or Clean-up Assistance-helper sets up or cleans up; patient completes activity. [place] assists only prior to or following the activity. 4-Supervision or Touching Assistance-helper provides verbal cues and/or touching/steadying and/or contact guard assistance as patient completes activity. Assistance may be provided throughout the activity or intermittently. 3-Partial/Moderate Assistance-helper does LESS THAN HALF the effort. [place] lifts, holds or supports trunk or limbs, but provides less than half the effort. 2-Substantial/Maximal Assistance-helper does MORE THAN HALF the effort. [place] lifts or holds trunk or limbs and provides more than half the effort. 6-Qfkwxrnzw-hsfgbe does ALL the effort. Patient does none of the effort to complete the activity. Or, the assistance of 2 or more helpers is required for the patient to complete the activity. If activity was not attempted, code reason: 7-Patient Refused. 9-Not Applicable-not attempted and the patient did not perform the activity before the current illness, exacerbation or injury. 10-Not Attempted due to Environmental Limitations-(lack of equipment, weather restraints, etc.). 88-Not Attempted due to Medical Conditions or Safety Concerns. Weight Bearing Full Weight Bearing Full Weight Bearing Treatments AAROM LE ther ex AP, Heelslide, hip abd, SLR and SAQ with mod A (B) LE x 20 ea Assessment Current Status: Poor Progress, Fair Progress Jamil fair -poor. Limited participation. Pt resting with call light and all needs met. PT Short Term Goals Short Term Goals Time Frame: Dec 03, 2019 Roll Left & Right: 3 Sit to lyin Lying to sitting on side of be: 3 Sit to stand: 3 Chair/lij-vf-hrzot transfer: 3 Walk 10 feet: [address] Maintenance Worker Goals Group Home Goals PT Group Home Goals Time Frame: Dec 17, 2019 Roll Left & Right (QC): 3 ([place]) Sit to Lying (QC): 3 ([place]) Lying-Sitting on Side/Bed(QC): 3 ([place]) Sit to Stand (QC): 3 ([place]) Chair/Wci-sn-Qxjtn Xfer(QC): 3 ([place]) Toilet Transfer (QC): 3 ([place]) Car Transfer (QC): 3 ([place]) Does the Patient Walk: No and Walking Goal IS indicated Walk 10 feet (QC): 3 ([place]) Walk 50ft with 2 Turns (QC): 3 ([place]) Walk 150 ft (QC): 88 Walking 10ft on Uneven Surface: 88 1 Step (curb) (QC): 88 4 Steps (QC): 88 12 Steps (QC): 88 Picking up an Object (QC): 88 Wheel 50 feet with 2 turns (QC: 3 ([place]) Wheel 150 feet: 3 ([place]) PT Plan Treatment/Plan Treatment Plan: Continue Plan of Care Treatment Plan: Bed Mobility, Education, Functional Activity [place], Functional Strength, Group Therapy, Gait, Safety, Therapeutic Exercise, Transfers Treatment Duration: Dec 17, 2019 Frequency: At least 5 of 7 days/Wk (IRF) Estimated Hrs Per Day: 1.5 hours per day Patient and/or Family Agrees t: Yes Time/GCodes Time In: 820 Time Out: 830 Total Billed Treatment Time: 10 Total Billed Treatment Ther ex ROBERTO SLAUGHTER CPTA Nov 30, 2019 11:50
--- NOTE | 2019-11-30 12:43 | Progress Note ---
Subjective Date Seen by a Provider: Nov 30, 2019 Time Seen by a Provider: 12:00 Subjective/Events-last exam doing ok. no new issues. continues to have difficulty eating however no obstruction. still confused as well. Objective Exam Vital Signs Date Time Temp Pulse Resp B/P (MAP) Pulse Ox O2 Delivery O2 Flow Rate FiO2 11/30/19 09:00 Room Air 11/30/19 06:00 37.0 75 16 126/79 (95) 97 Room Air 11/29/19 21:00 Room Air 11/29/19 18:41 97 Room Air 11/29/19 16:30 36.4 84 16 107/63 (78) 94 Room Air I & O 11/30/19 07:00 Intake Total 660 ml Output Total 200 ml Balance 460 ml Capillary Refill : Less Than 3 Seconds General Appearance: No Apparent Distress HEENT: PERRL/EOMI Neck: Full Range of Motion Respiratory: Chest Non Tender, Decreased Breath Sounds Cardiovascular: Regular Rate, Rhythm Gastrointestinal: normal bowel sounds, non tender, soft Extremity: Normal Capillary Refill Neurologic/Psychiatric: Alert, Disoriented Skin: Normal Color Lymphatic: No Adenopathy Results Lab Laboratory Tests 11/30/19 05:56: Glucometer 91 Assessment/Plan Assessment/Plan Assess & Plan/Chief Complaint s/p exploratory laparotomy, lysis of adhesions, small bowel resection. continue to encourage PO. cont PT/OT to improve ADL's. continue wet to dry dressing change. will plan for gastrostomy tube. Clinical Quality Measures DVT/VTE Risk/Contraindication: Risk Factor Score Per Nursin RFS Level Per Nursing on Admit: 4+=Very High ROMAIN LOFTON MD Nov 30, 2019 12:43
--- NOTE | 2019-11-30 14:00 | NUR ---
Patient found on floor at 1333. Nurses heard a "slap" type noise and immediately ran to patient room. Patient was found sitting on floor with knees bent and legs crossed at ankles. No pain or injuries reported, no injuries noted. Patient had been sitting in recliner with feet up and chair alarm in place and activated. Chair alarm failed to go off. Patient assisted to bed with assist of 3 staff members. Patient had also removed his abdominal dressing. After patient was assisted to bed, wound cleaned and dressing re-applied. of patient, Dr. Hull, and supervisor steffen house notified. Tele-Sitter placed in patient room. Bed Alarm on.
[2019-11-30 16:30] VITALS: BP 140/75
[2019-11-30] MEDS: SODIUM ACETATE IV SCH ×11 (17:07)
[2019-11-30] MEDS: SODIUM CHLORIDE IV SCH ×11 (17:07)
[2019-11-30] MEDS: [UNRECOGNIZED DRUG - OTHER] IV SCH ×11 (17:07)
[2019-11-30] MEDS: LORazepam INJ 2 MG/ML (ATIVAN) VIAL IVP PRN (19:14)
--- NOTE | 2019-11-30 19:15 | NUR ---
Patient became very belligerent towards . Throwing call light on the floor, yelling, and being disruptive. came to nurses desk asking for something to be given to help patient. Patient is upset and asking multiple staff members to come in and watch the [place] race. Patient frantically asks for everyone in the room to write down all of the racers names and starts ripping paper. prepares to leave due to visiting hours. Patient attempts to get out of bed and grabs YARDAGE CALLER hands. YARDAGE CALLER able to remove her hands out of patient hands. Ativan administered. Staff staying with patient until he no longer attempts to get out of bed.
[2019-11-30] MEDS: MELATONIN 10 MG TABLET PO SCH (20:04)
--- NOTE | 2019-11-30 22:00 | NUR ---
pt continues combative et attempting to get out of bed .See mar haldol given et staff member continues to stay at bedside. At this time patient resting with eyes closed resp reg et easy. no further combative behavior noted after haldol given. Continue to monitor pt
--- NOTE | 2019-12-01 02:40 | NUR ---
pt continues resting quietly with eyes closed resp reg .
[2019-12-01 05:45] VITALS: BP 163/81
[2019-12-01] MEDS: CYANOCOBALAMIN 1,000 MCG (VITAMIN B-12) TABLET PO SCH (06:19)
[2019-12-01] MEDS: polyethylene glycoL POWDER 17 GM (MIRALAX) PACK PO SCH ×2 (09:00→20:27)
--- NOTE | 2019-12-01 10:00 | PM&R Progress Note ---
Subjective HPI/CC On Admission Date Seen by Provider: Dec 01, 2019 Time Seen by Provider: 11:00 Subjective/Events-last exam 12/01/19: Aggressive with aide today Patient becomes paranoid after 700pm c/w was at bedside last night when it occurred 11/30/19: Aggressive and paranoid today Struck out at aide Snacks on candy most of day TPN maintained No BM for 3 days refuses laxatives which are liquid 11/29/19: Pt remains very thin Will see if Dr. Anthony can put a feeding tube in but due to the abdominal wound likely that won't be an option Calorie count will be initiated Eating snacks and candy Last BM was two days ago 11/28/19: Pt very difficult to motivate He exposed himself during group therapy yesterday Colette his having difficulty coping with his very declined state Refuses to eat Maintained on TPN B12 was added after talked to Dr. Anthony in depth Pt has a stage 2 ulcer on his buttock Scheduling Hydrocodone to help his pain Abdominal wound managed by Dr. Anthony 11/27/19: Patient doing better and more alert Team conference thought needs behavioral health evaluation No pain reported now since Hydrocodone for hip pain Checked labs TPN ordered Lactic acid elevated was from dehydration and now resolved DC IVF 1/2 NS Conferred with RN Reviewed therapy notes Checked meds and labs Review of Systems General: Fatigue, Malaise Neurological: Confusion Objective Exam Vital Signs Vital Signs Date Time Temp Pulse Resp B/P (MAP) Pulse Ox O2 Delivery O2 Flow Rate FiO2 12/01/19 17:16 36.4 85 18 123/75 (91) 99 Room Air Capillary Refill : Less Than 3 Seconds General Appearance: No Apparent Distress, WD/WN, Chronically ill, Thin HEENT: PERRL/EOMI, Normal ENT Inspection, Pharynx Normal Neck: Full Range of Motion, Normal Inspection, Non Tender, Supple, Carotid Bruit Respiratory: Chest Non Tender, Lungs Clear, Normal Breath Sounds, No Accessory Muscle Use, No Respiratory Distress Cardiovascular: Regular Rate, Rhythm, No Edema, No Gallop, No JVD, No Murmur, Normal Peripheral Pulses Gastrointestinal: Normal Bowel Sounds, No Organomegaly, No Pulsatile Mass, Soft, Other (wound vac) Back: Normal Inspection, No CVA Tenderness, No Vertebral Tenderness Extremity: Normal Capillary Refill, Normal Inspection, Normal Range of Motion, Non Tender, No Calf Tenderness, No Pedal Edema Neurologic/Psychiatric: Alert, Oriented x3, No Motor/Sensory Deficits, meter record clerk II- XII Norm as Tested, Abnormal Gait, Depressed Affect, Motor Weakness (generalized all extremities), Other (confused subtle) Skin: Normal Color, Warm/Dry Lymphatic: No Adenopathy Results/Procedures Lab Patient resulted labs reviewed. FIM Transfers Therapy Code Descriptions/Definitions Functional [place] Measure: 0=Not Assessed/NA 4=Minimal Assistance 1=Total Assistance 5=Supervision or Setup 2=Maximal Assistance 6=Modified [place] 3=Moderate Assistance 7=Complete IndependenceSCALE: Activities may be completed with or without assistive devices. 7-Niswcbnwqz-nnesmsl completes the activity by him/herself with no assistance from a helper. 5-Set-up or Clean-up Assistance-helper sets up or cleans up; patient completes activity. [place] assists only prior to or following the activity. 4-Supervision or Touching Assistance-helper provides verbal cues and/or touching/steadying and/or contact guard assistance as patient completes activity. Assistance may be provided throughout the activity or intermittently. 3-Partial/Moderate Assistance-helper does LESS THAN HALF the effort. [place] lifts, holds or supports trunk or limbs, but provides less than half the effort. 2-Substantial/Maximal Assistance-helper does MORE THAN HALF the effort. [place] lifts or holds trunk or limbs and provides more than half the effort. 3-Xcegfuwir-omrppe does ALL the effort. Patient does none of the effort to complete the activity. Or, the assistance of 2 or more helpers is required for the patient to complete the activity. If activity was not attempted, code reason: 7-Patient Refused. 9-Not Applicable-not attempted and the patient did not perform the activity before the current illness, exacerbation or injury. 10-Not Attempted due to Environmental Limitations-(lack of equipment, weather restraints, etc.). 88-Not Attempted due to Medical Conditions or Safety Concerns. Roll Left to Right (QC): 1 Sit to Lying (QC): 4 Sit to Stand (QC): 2 (x 5 sets during ADL training with OT cotreat) Chair/Set-fx-Hfyym Xfer(QC): 2 Car Transfer (QC): 1 Gait Training Does the Patient Walk?: Yes Distance: 150' x 2 Walk 10 feet (QC): 2 Walk 50 ft with 2 Turns(QC): 2 Walk 150 ft (QC): 2 Walking 10ft/uneven surface-QC: 88 Gait Persons Needed: 2 Gait Assistive Device: FWW Wheelchair Training Does the Pt Use a Wheelchair?: Yes Wheel 50 ft with 2 turns (QC): 1 Wheel 150 ft (QC): 1 Type of Wheelchair: Manual Stair Training 1 Step (curb) (QC): 88 4 Steps (QC): 88 12 Steps (QC): 88 Balance Picking up an Object (QC): 88 ADL-Treatment Eating (QC): 6 (Pt reaches into container and gathers cookies, opens cheeze it bag, brings drink to mouth appropriately. ) Oral Hygiene (QC): 7 (Denies ) Shower/Bathe Self (QC): 1 (TD with Ax2 for participation/ mobility ) Upper Body Dressing (QC): 4 (min cues for sequencing/ appropriate positioning. When told pt's shirt on reverse, pt rolls eyes and brings shirt back to lap. Pt requries break and cues for continuation.) Lower Body Dressing (QC): 4 (SBA-CGA while seated in chair (completes BLE threading), stands with min A and buttons with BUE and no UE support on walker (CGA throughout) with success. ) On/Off Footwear (QC): 3 (min A for shoe donning. Education on shoe horn as pt denies untying shoes with demonstration to RLE, pt denies use on LLE.) Toileting Hygiene (QC): 2 (Max A bottom hygiene, s/u and CGA for janet hygiene in stance at toilet.) Toilet Transfer (QC): 4 (CGA throughout stance at toilet, mod cues for safety and positioning with walker.) Assessment/Plan Assessment and Plan Assess & Plan/Chief Complaint Assessment: Myopathy Abdominal wound requiring wound vac COPD Weight loss HTN HLP Elevated lactic acid from dehydration Chronic pain Plan: IRF protocol Dr Anthony to manage wound vac TPN Increase PO nutrition 11/27/19: Discontinue IV fluids Maintain TPN Monitor hemoglobin Await iron level 11/28/19: Patient has difficulty getting ready to participate in therapy Very frail and cachectic Guarded prognosis 11/29/19: Calorie count Appreciate Dr. Anthony evaluate patient for a feeding tube Eating snacks and candy Bowels moved 2 days ago Prognosis guarded 11/30/19: Monitor aggressive behavior Monitor closely Prognosis poor 12/01/19: Confusion noted Agitation and aggressive behaviors TPN maintained (1) Myopathy (2) Weight loss (3) Agitation (4) Lactic acidosis (5) Delirium (6) Rheumatoid arthritis Status: Chronic (7) COPD (chronic obstructive pulmonary disease) Status: Chronic (8) Dysphagia (9) Gastroparesis Status: Acute (10) Colitis Status: Acute (11) Nausea & vomiting Status: Acute ANTONIO BERNSTEIN DO Dec 01, 2019 10:00
[2019-12-01] MEDS: DULoxetine 30 MG (CYMBALTA) CAP PO SCH (10:11)
[2019-12-01] MEDS: FAMOTIDINE 20 MG (PEPCID) TABLET PO SCH ×2 (10:11→20:27)
[2019-12-01] MEDS: FERROUS SULF 325 MG (IRON) TAB PO SCH (10:12)
[2019-12-01] MEDS: DOCUSATE SODIUM 100 MG (COLACE) CAP PO SCH ×2 (10:12→20:26)
[2019-12-01] MEDS: SENNA W/DOCUSATE (SENOKOT S) TABLET PO SCH ×2 (10:12→20:27)
[2019-12-01] MEDS: HYDROcodone/APAP 10 MG/325 MG (LORTAB) TAB PO SCH ×2 (10:12→20:26)
[2019-12-01] MEDS: QUEtiapine 25 MG (SEROquel) TAB IMMEDIATE RELEASE PO SCH ×2 (10:12→16:35)
[2019-12-01] MEDS: LACTOBACILLUS ACIDOPHILUS (PROBIOTIC) CAPSULE PO SCH ×2 (10:12→20:25)
[2019-12-01] MEDS: FOLIC ACID 1 MG TAB PO SCH (10:12)
[2019-12-01] MEDS: ENOXAPARIN 30 MG/0.3 ML (LOVENOX) SYR SC SCH (10:13)
[2019-12-01] MEDS: MEGESTROL 40 MG (MEGACE) TAB PO SCH ×2 (10:24→20:26)
--- NOTE | 2019-12-01 11:57 | Progress Note ---
Subjective Date Seen by a Provider: Dec 01, 2019 Time Seen by a Provider: 11:00 Subjective/Events-last exam still confused. minimal PO intake. small amount greenish drainage open wound likely a low output fistula. wound benefit from PEG tube however too confused/combative and will likely pull-out at this time. Objective Exam Vital Signs Date Time Temp Pulse Resp B/P (MAP) Pulse Ox O2 Delivery O2 Flow Rate FiO2 12/01/19 08:41 Room Air 12/01/19 07:59 Room Air 12/01/19 05:45 36.4 71 16 163/81 (108) 98 Room Air 11/30/19 21:44 Room Air 11/30/19 21:04 Room Air 11/30/19 16:30 36.2 70 16 140/75 (96) 98 Room Air I & O 12/01/19 07:00 Intake Total 500 ml Output Total 100 ml Balance 400 ml Capillary Refill : Less Than 3 Seconds General Appearance: No Apparent Distress HEENT: PERRL/EOMI Neck: Full Range of Motion Respiratory: Chest Non Tender, Decreased Breath Sounds Cardiovascular: Regular Rate, Rhythm Gastrointestinal: normal bowel sounds, non tender, soft Extremity: Normal Capillary Refill Neurologic/Psychiatric: Alert, Disoriented Skin: Normal Color Lymphatic: No Adenopathy Results Lab Laboratory Tests 12/01/19 05:06: Glucometer 101 Assessment/Plan Assessment/Plan Assess & Plan/Chief Complaint s/p exploratory laparotomy, lysis of adhesions, small bowel resection. continue to encourage PO. cont PT/OT to improve ADL's. continue wet to dry dressing change. 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 may need ileostomy bag. gastrostomy tube may be of benefit however too confused/combative at this time. Clinical Quality Measures DVT/VTE Risk/Contraindication: Risk Factor Score Per Nursin RFS Level Per Nursing on Admit: 4+=Very High ROMAIN LOFTON MD Dec 01, 2019 11:57
[2019-12-01] MEDS: HYDROcodone/APAP 10 MG/325 MG (LORTAB) TAB PO PRN (14:23)
[2019-12-01] MEDS: SODIUM ACETATE IV SCH ×11 (16:35)
[2019-12-01] MEDS: [UNRECOGNIZED DRUG - OTHER] IV SCH ×11 (16:35)
[2019-12-01] MEDS: SODIUM CHLORIDE IV SCH ×11 (16:35)
[2019-12-01 17:16] VITALS: BP 123/75
[2019-12-01] MEDS: LORazepam INJ 2 MG/ML (ATIVAN) VIAL IVP PRN (18:13)
--- NOTE | 2019-12-01 18:29 | NUR ---
PO Ativan given at 1635 as patient was becoming restless. Around 1800, patient became more agitated, threw urinal at his , made multiple attempts to climb over side rails. Patient changed, as he was incontinent and became more agitated. Patient sat up and attempted to climb over bed rails, also becoming increasingly verbal with staff and . IV Ativan given, per orders.
[2019-12-01] MEDS: MELATONIN 10 MG TABLET PO SCH (20:26)
[2019-12-02 05:14] VITALS: BP 113/76
--- NOTE | 2019-12-02 05:53 | PM&R Progress Note ---
Subjective HPI/CC On Admission Date Seen by Provider: Dec 02, 2019 Time Seen by Provider: 09:00 Subjective/Events-last exam 12/02/19: Pt actually doing pretty well today Dementia and delirium and agitation seems to be improved this morning TPN is maintained but overall his calorie count only includes snacks and orange slice candy Denies any significant pain Very difficult to have reasonable recovery 12/01/19: Aggressive with aide today Patient becomes paranoid after 700pm c/w own was at bedside last night when it occurred 11/30/19: Aggressive and paranoid today Struck out at aide Snacks on candy most of day TPN maintained No BM for 3 days refuses laxatives which are liquid 11/29/19: Pt remains very thin Will see if Dr. Anthony can put a feeding tube in but due to the abdominal wound myriam bell that won't be an option Calorie count will be initiated Eating snacks and candy Last BM was two days ago 11/28/19: Pt very difficult to motivate He exposed himself during group therapy yesterday Colette his having difficulty coping with his very declined state Refuses to eat Maintained on TPN B12 was added after talked to Dr. Anthony in depth Pt has a stage 2 ulcer on his buttock Scheduling Hydrocodone to help his pain Abdominal wound managed by Dr. Anthony 11/27/19: Patient doing better and more alert Team conference thought needs behavioral health evaluation No pain reported now since Hydrocodone for hip pain Checked labs TPN ordered Lactic acid elevated was from dehydration and now resolved DC IVF 1/2 NS Conferred with RN Reviewed therapy notes Checked meds and labs Review of Systems General: Fatigue, Malaise Neurological: Weakness Objective Exam Vital Signs Vital Signs Date Time Temp Pulse Resp B/P (MAP) Pulse Ox O2 Delivery O2 Flow Rate FiO2 12/02/19 16:05 36.4 76 14 119/70 (86) 99 Room Air Capillary Refill : Less Than 3 Seconds General Appearance: No Apparent Distress, WD/WN, Chronically ill, Cachetic, Thin HEENT: PERRL/EOMI, Normal ENT Inspection, Pharynx Normal Neck: Full Range of Motion, Normal Inspection, Non Tender, Supple, Carotid Bruit Respiratory: Chest Non Tender, Lungs Clear, Normal Breath Sounds, No Accessory Muscle Use, No Respiratory Distress Cardiovascular: Regular Rate, Rhythm, No Edema, No Gallop, No JVD, No Murmur, Normal Peripheral Pulses Gastrointestinal: Normal Bowel Sounds, No Organomegaly, No Pulsatile Mass, Soft, Other (wound vac) Back: Normal Inspection, No CVA Tenderness, No Vertebral Tenderness Extremity: Normal Capillary Refill, Normal Inspection, Normal Range of Motion, Non Tender, No Calf Tenderness, No Pedal Edema Neurologic/Psychiatric: Alert, Oriented x3, No Motor/Sensory Deficits, grated cheese maker II-X II Norm as Tested, Abnormal Gait, Depressed Affect, Motor Weakness (generalized all extremities), Other (confused subtle) Skin: Normal Color, Warm/Dry Lymphatic: No Adenopathy Results/Procedures Lab Laboratory Tests 12/02/19 06:07 Patient resulted labs reviewed. FIM Transfers Therapy Code Descriptions/Definitions Functional [place] Measure: 0=Not Assessed/NA 4=Minimal Assistance 1=Total Assistance 5=Supervision or Setup 2=Maximal Assistance 6=Modified [place] 3=Moderate Assistance 7=Complete IndependenceSCALE: Activities may be completed with or without assistive devices. 7-Ahknedgtji-mapyehm completes the activity by him/herself with no assistance from a helper. 5-Set-up or Clean-up Assistance-helper sets up or cleans up; patient completes activity. [place] assists only prior to or following the activity. 4-Supervision or Touching Assistance-helper provides verbal cues and/or touching/steadying and/or contact guard assistance as patient completes activity. Assistance may be provided throughout the activity or intermittently. 3-Partial/Moderate Assistance-helper does LESS THAN HALF the effort. [place] lifts, holds or supports trunk or limbs, but provides less than half the effort. 2-Substantial/Maximal Assistance-helper does MORE THAN HALF the effort. [place] lifts or holds trunk or limbs and provides more than half the effort. 4-Hkzfzdlhy-uurvoh does ALL the effort. Patient does none of the effort to complete the activity. Or, the assistance of 2 or more helpers is required for the patient to complete the activity. If activity was not attempted, code reason: 7-Patient Refused. 9-Not Applicable-not attempted and the patient did not perform the activity before the current illness, exacerbation or injury. 10-Not Attempted due to Environmental Limitations-(lack of equipment, weather restraints, etc.). 88-Not Attempted due to Medical Conditions or Safety Concerns. Roll Left to Right (QC): 1 Sit to Lying (QC): 4 Sit to Stand (QC): 2 (x 5 sets during ADL training with OT cotreat) Chair/Csd-by-Wmifo Xfer(QC): 2 Car Transfer (QC): 1 Gait Training Does the Patient Walk?: Yes Distance: 150' x 2 Walk 10 feet (QC): 2 Walk 50 ft with 2 Turns(QC): 2 Walk 150 ft (QC): 2 Walking 10ft/uneven surface-QC: 88 Gait Persons Needed: 2 Gait Assistive Device: FWW Wheelchair Training Does the Pt Use a Wheelchair?: Yes Wheel 50 ft with 2 turns (QC): 1 Wheel 150 ft (QC): 1 Type of Wheelchair: Manual Stair Training 1 Step (curb) (QC): 88 4 Steps (QC): 88 12 Steps (QC): 88 Balance Picking up an Object (QC): 88 ADL-Treatment Eating (QC): 6 (Pt reaches into container and gathers cookies, opens cheeze it bag, brings drink to mouth appropriately. ) Oral Hygiene (QC): 7 (Denies ) Shower/Bathe Self (QC): 1 (TD with Ax2 for participation/ mobility ) Upper Body Dressing (QC): 4 (min cues for sequencing/ appropriate positioning. When told pt's shirt on reverse, pt rolls eyes and brings shirt back to lap. Pt requries break and cues for continuation.) Lower Body Dressing (QC): 4 (SBA-CGA while seated in chair (completes BLE threading), stands with min A and buttons with BUE and no UE support on walker (CGA throughout) with success. ) On/Off Footwear (QC): 3 (min A for shoe donning. Education on shoe horn as pt denies untying shoes with demonstration to RLE, pt denies use on LLE.) Toileting Hygiene (QC): 2 (Max A bottom hygiene, s/u and CGA for janet hygiene in stance at toilet.) Toilet Transfer (QC): 4 (CGA throughout stance at toilet, mod cues for safety and positioning with walker.) Assessment/Plan Assessment and Plan Assess & Plan/Chief Complaint Assessment: Myopathy Abdominal wound requiring wound vac COPD Weight loss HTN HLP Elevated lactic acid from dehydration Chronic pain Plan: IRF protocol Dr Anthony to manage wound vac TPN Increase PO nutrition 11/27/19: Discontinue IV fluids Maintain TPN Monitor hemoglobin Await iron level 11/28/19: Patient has difficulty getting ready to participate in therapy Very frail and cachectic Guarded prognosis 11/29/19: Calorie count Appreciate Dr. Anthony evaluate patient for a feeding tube Eating snacks and candy Bowels moved 2 days ago Prognosis guarded 11/30/19: Monitor aggressive behavior Monitor closely Prognosis poor 12/01/19: Confusion noted Agitation and aggressive behaviors TPN maintained 12/02/19: Maintain TPN Continue calorie count Wound care per Dr. Anthony (1) Myopathy (2) Weight loss (3) Agitation (4) Lactic acidosis (5) Delirium (6) Rheumatoid arthritis Status: Chronic (7) COPD (chronic obstructive pulmonary disease) Status: Chronic (8) Dysphagia (9) Gastroparesis Status: Acute (10) Colitis Status: Acute (11) Nausea & vomiting Status: Acute ANTONIO BERNSTEIN DO Dec 02, 2019 05:53
[2019-12-02] MEDS: CYANOCOBALAMIN 1,000 MCG (VITAMIN B-12) TABLET PO SCH (06:11)
[2019-12-02 06:29] LABS: BASOPHILS # (AUTO) 0.1 10^3/uL (0.0-0.1); BASOPHILS % (AUTO) 0 % (0-10); EOSINOPHILS # (AUTO) 0.2 10^3/uL (0.0-0.3); EOSINOPHILS % (AUTO) 1 % (0-10); HEMATOCRIT 28 % (40-54); HEMOGLOBIN 8.6 G/DL (13.3-17.7); LYMPHOCYTES # (AUTO) 3.4 X 10^3 (1.0-4.0); LYMPHOCYTES % (AUTO) 26 % (12-44); MEAN CORPUSCULAR HEMOGLOBIN 26 PG (25-34); MEAN CORPUSCULAR HGB CONC 31 G/DL (32-36); MEAN CORPUSCULAR VOLUME 85 FL (80-99); MEAN PLATELET VOLUME 9.4 FL (7.4-10.4); MONOCYTES # (AUTO) 0.7 X 10^3 (0.0-1.0); MONOCYTES % (AUTO) 6 % (0-12); NEUTROPHILS % (AUTO) 67 % (42-75); PLATELET COUNT 421 10^3/uL (130-400); WHITE BLOOD COUNT 13.4 10^3/uL (4.3-11.0)
[2019-12-02 06:53] LABS: ALBUMIN 2.3 GM/DL (3.2-4.5); CHLORIDE 107 MMOL/L (98-107); POTASSIUM 4.5 MMOL/L (3.6-5.0); SODIUM 135 MMOL/L (135-145)
[2019-12-02 06:54] LABS: CALCIUM 8.4 MG/DL (8.5-10.1)
[2019-12-02 06:55] LABS: GLUCOSE 110 MG/DL (70-105); TOTAL PROTEIN 6.9 GM/DL (6.4-8.2)
[2019-12-02 06:56] LABS: CARBON DIOXIDE 20 MMOL/L (21-32)
[2019-12-02 06:57] LABS: BILIRUBIN,TOTAL 0.3 MG/DL (0.1-1.0)
[2019-12-02 06:58] LABS: ALKALINE PHOSPHATASE 89 U/L (40-136)
[2019-12-02 06:59] LABS: CREATININE SERUM 0.58 MG/DL (0.60-1.30); GFR ESTIMATED > 60
[2019-12-02 07:00] LABS: BUN/CREATININE RATIO 34
[2019-12-02 07:02] LABS: ALANINE AMINOTRANSFERASE 26 U/L (0-55)
[2019-12-02] MEDS: FERROUS SULF 325 MG (IRON) TAB PO SCH (08:57)
[2019-12-02] MEDS: ENOXAPARIN 30 MG/0.3 ML (LOVENOX) SYR SC SCH (08:58)
[2019-12-02] MEDS: DULoxetine 30 MG (CYMBALTA) CAP PO SCH (08:58)
[2019-12-02] MEDS: HYDROcodone/APAP 10 MG/325 MG (LORTAB) TAB PO SCH (08:58)
[2019-12-02] MEDS: FOLIC ACID 1 MG TAB PO SCH (08:58)
[2019-12-02] MEDS: FAMOTIDINE 20 MG (PEPCID) TABLET PO SCH ×2 (08:58→20:08)
[2019-12-02] MEDS: MEGESTROL 40 MG (MEGACE) TAB PO SCH ×2 (08:58→20:07)
[2019-12-02] MEDS: SENNA W/DOCUSATE (SENOKOT S) TABLET PO SCH ×2 (08:58→20:07)
[2019-12-02] MEDS: QUEtiapine 25 MG (SEROquel) TAB IMMEDIATE RELEASE PO SCH ×2 (08:59→17:53)
[2019-12-02] MEDS: LACTOBACILLUS ACIDOPHILUS (PROBIOTIC) CAPSULE PO SCH ×2 (09:00→20:07)
[2019-12-02] MEDS: polyethylene glycoL POWDER 17 GM (MIRALAX) PACK PO SCH ×2 (09:00→20:16)
[2019-12-02] MEDS: IRON SUCROSE 200 MG/10 ML (VENOFER) VIAL IV SCH (09:01)
[2019-12-02] MEDS: DOCUSATE SODIUM 100 MG (COLACE) CAP PO SCH ×2 (09:01→20:16)
--- NOTE | 2019-12-02 09:14 | Occupational Ther Daily Note ---
OT Current Status-Daily Note Subjective Pt seen in bed this am, wiping tray with sheet as he spilled milk on tray. Pt alert/ agreeable to therapy. Pt denies pain this am. Pt now has telesitter in room; combative this . ADL-Treatment Therapy Code Descriptions/Definitions Functional [place] Measure: 0=Not Assessed/NA 4=Minimal Assistance 1=Total Assistance 5=Supervision or Setup 2=Maximal Assistance 6=Modified [place] 3=Moderate Assistance 7=Complete IndependenceSCALE: Activities may be completed with or without assistive devices. 6-Tbtmlwmmcs-ovaaqlx completes the activity by him/herself with no assistance from a helper. 5-Set-up or Clean-up Assistance-helper sets up or cleans up; patient completes activity. [place] assists only prior to or following the activity. 4-Supervision or Touching Assistance-helper provides verbal cues and/or touching/steadying and/or contact guard assistance as patient completes activity. Assistance may be provided throughout the activity or intermittently. 3-Partial/Moderate Assistance-helper does LESS THAN HALF the effort. [place] lifts, holds or supports trunk or limbs, but provides less than half the effort. 2-Substantial/Maximal Assistance-helper does MORE THAN HALF the effort. [place] lifts or holds trunk or limbs and provides more than half the effort. 8-Hdjizcvqx-zvjtwj does ALL the effort. Patient does none of the effort to complete the activity. Or, the assistance of 2 or more helpers is required for the patient to complete the activity. If activity was not attempted, code reason: 7-Patient Refused. 9-Not Applicable-not attempted and the patient did not perform the activity before the current illness, exacerbation or injury. 10-Not Attempted due to Environmental Limitations-(lack of equipment, weather restraints, etc.). 88-Not Attempted due to Medical Conditions or Safety Concerns. Eating (QC): 6 (Pt opens containers and eats with IND.) Oral Hygiene (QC): 7 (denies) Bathing Location: L Arm, R Arm, L Upper Leg, R Upper Leg, L Lower Leg (including foot), R Lower Leg (including foot), Chest, Abdomen, Perineal Area Shower/Bathe Self (QC): 3 (min physical assist with bottom in stance, pt requires cues for continuation of task/ sequencing throughout. Pt wipes feet with socks rather than cloth and washes legs 3x.) Upper Body Dressing (QC): 5 (s/u) Lower Body Dressing (QC): 3 (min A breif donning due to problem solving delays and threading (assist in threading 1 foot). Pt completes pant donning with CGA in stance- self corrects wrong foot in hole, buttons pants prior to standing (increased problem solving this date)) On/Off Footwear: 3 (Pt doffs/ dons socks, dons untied shoes, requires min A to tighten laces and pt ties IND.) Toileting Hygiene (QC): 3 (min A bottom hygiene) Other Treatment Pt seen in bed. Pt readily agreeable to sponge bath. Bed mob with SBA and cues for continuation/ motivation. Pt sit to stand with cues each time this session as pt desires to push up from walker, cues to push from bed/ chair. Pt ambulates with CGA to chair, good control of sits each sit. Pt completes sponge bath as above in recliner, cues for continuation/ sequencing. Pt dresses, completes standing tasks with 1 LOB and need to return to sit. Pt educated on standing/ maintaining balance prior to reaching/ ambulation tasks. Pt agrees. Pt communicates when asked questions, continues to have increased response time at times. Pt left with nursing/ PT end of session. All needs met. Education OT Patient Education: Correct positioning, Energy conservation, Exercise program, Modified ADL techniques, Progress toward Goal/Update tx plan, Purpose of tx/functional activities, Safety issues, Transfer techniques Teaching Recipient: Patient Teaching Methods: Demonstration, Discussion Response to Teaching: Verbalize Understanding, Return Demonstration, Reinforcement Needed OT Short Term Goals Short Term Goals Time Frame: Dec 10, 2019 Eatin Oral hygiene: 3 Toileting hygiene: 2 Shower/bathe self: 2 Upper body dressin Lower body dressin Putting on/taking off footwear: 3 OT Relationship Associate Goals Prison Goals Time Frame: Dec 24, 2019 Eating (QC): 4 Oral Hygiene (QC): 4 Toileting Hygiene (QC): 3 Shower/Bathe Self (QC): 3 Upper Body Dressing (QC): 4 Lower Body Dressing (QC): 4 On/Off Footwear (QC): 4 Additional Goals: 1-Demonstrate ADL Tasks, 2-Verbalize Understanding, 3- ImproveStrength/[place] 1=Demonstrate adherence to instructed precautions during ADL tasks. 2=Patient will verbalize/demonstrate understanding of assistive devices/modifications for ADL. 3=Patient will improve strength/tolerance for activity to enable patient to perform ADL's. OT Education/Plan Problem List/Assessment Assessment: Decreased Activ Tolerance, Decreased Safety Aware, Decreased UE Strength, Dependent Transfers, Impaired Cognition, Impaired Funct Balance, Impaired I ADL's, Impaired Self-Care Skills Discharge Recommendations Plan/Recommendations: Continue POC Therapy Discharge Recommendati: 24 Hour Supervision, Home & Family Treatment Plan/Plan of Care Treatment,Training & Education: Yes Patient would benefit from OT for education, treatment and training to promote independence in ADL's, mobility, safety and/or upper extremity function for ADL's. Plan of Care: ADL Retraining, Caregiver Training, Functional Mobility, Group Exercise/Act as Ind, UE Funct Exercise/Act, UE Neuromus Re-Ed/Coord Treatment Duration: Dec 24, 2019 Frequency: At least 5 of 7 days/Wk (IRF) Estimated Hrs Per Day: 1.5 hours per day Agreement: Yes Rehab Potential: Guarded Time/GCodes Start Time: 07:45 Stop Time: 09:00 Total Time Billed (hr/min): 75 Billed Treatment Time 1, ADL 4 (60), FA(15)= (75) MARIA GUADALUPE FARRELL OTR Dec 02, 2019 09:14
--- NOTE | 2019-12-02 10:04 | Physical Therapy Daily Note ---
PT Daily Note-Current Subjective Pt presents in recliner chair with OT and nurse present in room. Pt reports pain in butt but is unable to given a number and points at Right lumbar area. Pt consents to PT. Appearance After PT treatment pt is returned to recliner with alarm set, tray and call button accessible and all needs met. Mental Status Patient Orientation: Person, Eyes Open, [place] Attachments: IV Transfers SCALE: Activities may be completed with or without assistive devices. 7-Ueqngphlas-ksgzhzr completes the activity by him/herself with no assistance from a helper. 5-Set-up or Clean-up Assistance-helper sets up or cleans up; patient completes activity. [place] assists only prior to or following the activity. 4-Supervision or Touching Assistance-helper provides verbal cues and/or touching/steadying and/or contact guard assistance as patient completes act ivity. Assistance may be provided throughout the activity or intermittently. 3-Partial/Moderate Assistance-helper does LESS THAN HALF the effort. [place] lifts, holds or supports trunk or limbs, but provides less than half the effort. 2-Substantial/Maximal Assistance-helper does MORE THAN HALF the effort. [place] lifts or holds trunk or limbs and provides more than half the effort. 1-Wclkuvrjt-cztvbx does ALL the effort. Patient does none of the effort to complete the activity. Or, the assistance of 2 or more helpers is required for the patient to complete the activity. If activity was not attempted, code reason: 7-Patient Refused. 9-Not Applicable-not attempted and the patient did not perform the activity before the current illness, exacerbation or injury. 10-Not Attempted due to Environmental Limitations-(lack of equipment, weather restraints, etc.). 88-Not Attempted due to Medical Conditions or Safety Concerns. Sit to Stand (QC): 4 Chair/Xvg-wj-Rgvcy Xfer(QC): 4 Pt requires cueing on UE placement to distribute weight through stable chair and not walker Weight Bearing Full Weight Bearing Full Weight Bearing Gait Training Distance: 1x50', 1x150', 100' Walk 10 feet (QC): 4 Walk 50 ft with 2 Turns(QC): 4 Walk 150 ft (QC): 4 Gait Persons Needed: 1 Gait Assistive Device: FWW Bradykinetic and narrow base of support to point of tandem ambulation Wheelchair Training Does the Pt Use a Wheelchair?: No Exercises Seated Therapy Exercises: Ankle pumps, Long arc quads, Hip flexion, Hip abd/add Seated Reps: 20 NuStep Minutes: 15 NuStep Workload: 4 Treatments Gait training; LE mobility and strengthening Assessment Current Status: Fair Progress Pt requires repetitive instructions to stay on task. Pt able to transfer and ambulate with CGA and cues for sequencing. PT Short Term Goals Short Term Goals Time Frame: Dec 03, 2019 Roll Left & Right: 3 Sit to lyin Lying to sitting on side of be: 3 Sit to stand: 3 Chair/ufj-wp-qazmk transfer: 3 Walk 10 feet: 3 PT Commercial Lines Underwriter Goals Commercial Lines Underwriter Goals PT Commercial Lines Underwriter Goals Time Frame: Dec 17, 2019 Roll Left & Right (QC): 3 ([place]) Sit to Lying (QC): 3 ([place]) Lying-Sitting on Side/Bed(QC): 3 ([place]) Sit to Stand (QC): 3 ([place]) Chair/Htp-fn-Blque Xfer(QC): 3 ([place]) Toilet Transfer (QC): 3 ([place]) Car Transfer (QC): 3 ([place]) Does the Patient Walk: No and Walking Goal IS indicated Walk 10 feet (QC): 3 ([place]) Walk 50ft with 2 Turns (QC): 3 ([place]) Walk 150 ft (QC): 88 Walking 10ft on Uneven Surface: 88 1 Step (curb) (QC): 88 4 Steps (QC): 88 12 Steps (QC): 88 Picking up an Object (QC): 88 Wheel 50 feet with 2 turns (QC: 3 ([place]) Wheel 150 feet: 3 ([place]) PT Plan Problem List Problem List: Activity Tolerance, Functional Strength, Safety, Balance, Gait, Transfer, Bed Mobility, ROM Treatment/Plan Treatment Plan: Continue Plan of Care Treatment Plan: Bed Mobility, Education, Functional Activity [place], Functional Strength, Group Therapy, Gait, Safety, Therapeutic Exercise, Transfers Treatment Duration: Dec 17, 2019 Frequency: At least 5 of 7 days/Wk (IRF) Estimated Hrs Per Day: 1.5 hours per day Patient and/or Family Agrees t: Yes Safety Risks/Education Patient Education: Gait Training, Transfer Techniques, Correct Positioning, Safety Issues Teaching Recipient: Patient Teaching Methods: Demonstration, Discussion Response to Teaching: Reinforcement Needed Time/GCodes Time In: 0900 Time Out: 1000 Total Billed Treatment Time: 60 Total Billed Treatment 1 visit FA 30' EX 30' ANNEMARIE CROFT PT Dec 02, 2019 10:04
--- NOTE | 2019-12-02 10:49 | Speech Therapy Daily Note ---
Speech Daily Progress Note Subjective Date Seen by Provider: Dec 02, 2019 Time Seen by Provider: 00:30 Patient was sitting up in his recliner with iron infusion going via IV. Patient was sorting through his box of snacks family had brought in. Objective Patient completed a series of q/a of general information knowledge with 60% given maximum verbal cues and/or repetitions. Assessment Assessment Current Status: Fair Progress Speech Short Term Goals Short Term Goals Short Term Goals 1) Patient will complete speech tasks related to his wants/needs with 75% or greater given minimal cues. 2) Patient will complete memory tasks related to his wants/needs with 75% or greater given minimal cues. 3) Patient will complete problem solving tasks related to his wants/needs with 75% or greater given minimal cues. 4) Patient will complete safety awareness tasks related to his wants/needs with 75% or greater given minimal cues. 5) Patient will tolerate least restrictive diet level without s/s of aspiration at 80% or greater intake. 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 Speech Mcc Goals Mcc Goals Patient will improve cognitive-communication necessary for safety and daily living tasks with minimal assist. Patient will maintain adequate nutrition/hydration with oral/TPN intake. Speech-Plan Patient/Family Goals Patient/Family Goals: Patient plans on returning home, however due to his medical status and cognitive deficits, his discharge location may need to be a safer environment. Treatment Plan Speech Therapy Treatment Plan: Continue Plan of Care Treatment Duration: Nov 27, 2019 Frequency: Modified Program (IRF) Estimated Hrs Per Day: Other Rehab Potential: Guarded Barriers to Learning: Patient's medical status and cognitive deficits Pt/Family Agrees to Plan: Yes Safety Risks/Education Teaching Recipient: Patient Teaching Methods: Discussion Response to Teaching: Verbalize Understanding, Reinforcement Needed Education Topics Provided: Continued safety and communication Time Speech Therapy Time In: 10:30 Speech Therapy Time Out: 11:00 Total Billed Time: 30 Billed Treatment Time 1, LUDMILA, JAE Amaya Dec 02, 2019 10:49
[2019-12-02] MEDS: HYDROcodone/APAP 10 MG/325 MG (LORTAB) TAB PO PRN (13:46)
--- NOTE | 2019-12-02 14:19 | Physical Therapy Progress Note ---
Therapy Progress Note Patient presents seated in recliner with pants around thighs. Pt refused to stand with walker; pt allowed PT's to stand him to pull up pants after repeated requests. Pt educated on importance of physical therapy but refused all given options for therapy. ANNEMARIE CROFT PT Dec 02, 2019 14:19
--- NOTE | 2019-12-02 15:06 | NUR ---
"CALORIE COUNT Est kcal needs: 1800 kcal | 30 kcal/kg Est Pro needs: 72 g Pro | 1.2 g Pro/kg Note pt currently on TPN, providing 1670 kcal (28 kcal/kg); 80 g Pro (1.3 g Pro/kg). This currently provides sufficient kcal (93%) and protein (111%) to meet pt's nutritional needs 11/28: 478 kcal (27% of est needs) | 14 g Pro (19% of est needs) 11/29: 358 kcal (20% of est needs) | 4 g Pro (1% of est needs) 11/30: 514 kcal (29% of est needs) | 11 g Pro (15% of est needs) Would recommend continuation of TPN to provide nutritional needs for pt. Encouraged pt to eat when able. Will continue to follow and reassess as pt needs, intake, and status change. Flaco Dave, MS, RD, LD [phone] (cell)"
--- NOTE | 2019-12-02 15:31 | NUR ---
"RD ASSESSMENT PMHx: COPD; HTN; BPH; colitis; GERD; malnutrition PT INTERACTION: Pt was awake and semi-pleasant during nutrition follow-up. Pt states he has been eating poorly since last assessment. Note avg PO intake <10% of meals, per chart review. Note pt currently on TPN regimen, providing 1670 kcal (28 kcal/kg) and 80 g Pro (1.2 g Pro/kg), per chart review. Note TPN provides 93% of his kcal needs, and 111% of his protein needs. Pt states no issues with nausea or vomiting since last assessment. Pt states some recent issues with diarrhea. Note last BM was 11/26, and pt currently on bowel regimen of colace BID; senna BID; and miralax BID, per chart review. Note presence of wounds (abdomen incision; stage 2 ulcer on buttock), per chart review. ABNORMAL NUTRITION-RELATED LAB VALUES LOW: cr 0.58; Ca 8.4; alb 2.3 HIGH: BUN 20; glu 110 Est. kcal needs: 1800 kcal | 30 kcal/kg Est. Pro needs: 72 g Pro | 1.2 g Pro/kg PES STATEMENT: Inadequate oral intake (NI-2.1) related to loss of appetite | diarrhea as evidenced by pt interview | avg PO intake <10% meals INTERVENTION: Note pt has calorie count order placed, per chart review. Recommend continue with current TPN regimen, providing 1670 kcal (28 kcal/kg); 80 g Pro (1.3 g Pro/kg). This will meet pt's nutritional needs. Continue with current diet order of DYS2 Mechanically Altered diet, with modifier of [place] Thickened Liquids. Continue with current supplementation order of Ensure Enlive QID (B/L/D/HS). Provides 350 kcal and 13 g Pro per serving. Encouraged pt to eat when able. Will continue to follow and reassess as pt needs, intake, and status change. MONITOR/EVALUATE: PO Intake; Plan of Care; Hydration Status; Weight Status; Lab Values Flaco Dave, MS, RD, LD"
[2019-12-02 16:05] VITALS: BP 119/70
--- NOTE | 2019-12-02 16:33 | Progress Note ---
Subjective Date Seen by a Provider: Dec 02, 2019 Time Seen by a Provider: 16:00 Subjective/Events-last exam patient doing the same. confused with low PO intake. drainage abd wound consistent with a fistula. Objective Exam Vital Signs Date Time Temp Pulse Resp B/P (MAP) Pulse Ox O2 Delivery O2 Flow Rate FiO2 12/02/19 16:05 36.4 76 14 119/70 (86) 99 Room Air 12/02/19 10:11 Room Air 12/02/19 09:00 Room Air 12/02/19 05:14 36.7 88 16 113/76 (88) 99 Room Air 12/01/19 21:59 Room Air 12/01/19 17:16 36.4 85 18 123/75 (91) 99 Room Air I & O 12/02/19 07:00 Intake Total 500 ml Output Total 100 ml Balance 400 ml Capillary Refill : Less Than 3 Seconds General Appearance: No Apparent Distress HEENT: PERRL/EOMI Neck: Full Range of Motion Respiratory: Chest Non Tender, Decreased Breath Sounds Cardiovascular: Regular Rate, Rhythm Gastrointestinal: normal bowel sounds, soft, other (mild succus drainage per abd wound) Extremity: Normal Capillary Refill Neurologic/Psychiatric: Alert, Disoriented Skin: Normal Color Lymphatic: No Adenopathy Results Lab Laboratory Tests 12/02/19 05:24: Glucometer 116H 12/02/19 06:07: White Blood Count 13.4H, Red Blood Count 3.29L, Hemoglobin 8.6L, Hematocrit 28L, Mean Corpuscular Volume 85, Mean Corpuscular Hemoglobin 26, Mean Corpuscular Hemoglobin Concent 31L, Red Cell Distribution Width 15.6H, Platelet Count 421H, Mean Platelet Volume 9.4, Neutrophils (%) (Auto) 67, Lymphocytes (%) (Auto) 26, Monocytes (%) (Auto) 6, Eosinophils (%) (Auto) 1, Basophils (%) (Auto) 0, Neutrophils # (Auto) 9.0H, Lymphocytes # (Auto) 3.4, Monocytes # (Auto) 0.7, Eosinophils # (Auto) 0.2, Basophils # (Auto) 0.1, Sodium Level 135, Potassium Level 4.5, Chloride Level 107, Carbon Dioxide Level 20L, Anion Gap 8, Blood Urea Nitrogen 20H, Creatinine 0.58L, Estimat Glomerular Filtration Rate > 60, BUN/Creatinine Ratio 34, Glucose Level 110H, Calcium Level 8.4L, Corrected Calcium 9.8, Total Bilirubin 0.3, Aspartate Amino Transf (AST/SGOT) 32, Alanine Aminotransferase (ALT/SGPT) 26, Alkaline Phosphatase 89, Total Protein 6.9, Albumin 2.3L Assessment/Plan Assessment/Plan Assess & Plan/Chief Complaint s/p exploratory laparotomy, lysis of adhesions, small bowel resection. continue to encourage PO. cont PT/OT to improve ADL's. continue wet to dry dressing change. 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 may need ileostomy bag. gastrostomy tube may be of benefit however too confused/combative at this time. Clinical Quality Measures DVT/VTE Risk/Contraindication: Risk Factor Score Per Nursin RFS Level Per Nursing on Admit: 4+=Very High ROMAIN LOFTON MD Dec 02, 2019 16:33
[2019-12-02] MEDS: SODIUM CHLORIDE IV SCH ×11 (16:40)
[2019-12-02] MEDS: SODIUM ACETATE IV SCH ×11 (16:40)
[2019-12-02] MEDS: [UNRECOGNIZED DRUG - OTHER] IV SCH ×11 (16:40)
[2019-12-02] MEDS: MELATONIN 10 MG TABLET PO SCH (20:07)
[2019-12-02] MEDS: HYDROcodone/APAP 5 MG/325 MG (LORTAB) TAB PO SCH (20:15)
[2019-12-02] MEDS: HALOPERIDOL 5 MG/ML (HALDOL) VIAL IM PRN (20:16)
[2019-12-03 05:31] VITALS: BP 133/78
[2019-12-03] MEDS: CYANOCOBALAMIN 1,000 MCG (VITAMIN B-12) TABLET PO SCH (06:29)
[2019-12-03] MEDS: DOCUSATE SODIUM 100 MG (COLACE) CAP PO SCH ×2 (08:08→20:17)
[2019-12-03] MEDS: QUEtiapine 25 MG (SEROquel) TAB IMMEDIATE RELEASE PO SCH ×2 (08:08→16:48)
[2019-12-03] MEDS: FERROUS SULF 325 MG (IRON) TAB PO SCH (08:08)
[2019-12-03] MEDS: MEGESTROL 40 MG (MEGACE) TAB PO SCH ×3 (08:08→23:09)
[2019-12-03] MEDS: FAMOTIDINE 20 MG (PEPCID) TABLET PO SCH ×3 (08:08→23:09)
[2019-12-03] MEDS: LACTOBACILLUS ACIDOPHILUS (PROBIOTIC) CAPSULE PO SCH ×3 (08:08→23:08)
[2019-12-03] MEDS: DULoxetine 30 MG (CYMBALTA) CAP PO SCH (08:08)
[2019-12-03] MEDS: HYDROcodone/APAP 5 MG/325 MG (LORTAB) TAB PO SCH ×3 (08:09→23:08)
[2019-12-03] MEDS: SENNA W/DOCUSATE (SENOKOT S) TABLET PO SCH ×2 (08:14→20:17)
[2019-12-03] MEDS: polyethylene glycoL POWDER 17 GM (MIRALAX) PACK PO SCH ×2 (08:14→20:17)
--- NOTE | 2019-12-03 08:30 | NUR ---
Called to by dayshift nurse and first dyer. Nurse asked if I could get IM haldol for pt as pt is agitated. Pt amb via 2 staff to [facility], [place]. Obtained medication and back to and attempted to assist staff with amb pt back to bed. Pt grabbed my arms and hitting and attempting to bite. Requested for additional assistance. Pt pulled this nurses hair and attempting to bite again. Hitting and kicking at staff. Throwing items at staff and around rm. IM haldol given with assistance of 3 staff. Telesitter in , cont with 1-1 sitter. Will cont to monitor.
--- NOTE | 2019-12-03 08:53 | NUR ---
"CALORIE COUNT Est kcal needs: 1800 kcal | 30 kcal/kg Est Pro needs: 72 g Pro | 1.2 g Pro/kg Note pt currently on TPN, providing 1670 kcal (28 kcal/kg); 80 g Pro (1.3 g Pro/kg). This currently provides sufficient kcal (93%) and protein (111%) to meet pt's nutritional needs 11/28: 478 kcal (27% of est needs) | 14 g Pro (19% of est needs) 11/29: 358 kcal (20% of est needs) | 4 g Pro (1% of est needs) 11/30: 514 kcal (29% of est needs) | 11 g Pro (15% of est needs) 12/01: 343 kcal (19% of est needs) | 11 g Pro (15% of est needs) | Note: Pt refused B and L trays, per chart review. Would recommend continuation of TPN to provide nutritional needs for pt. Encouraged pt to eat when able. Will continue to follow and reassess as pt needs, intake, and status change. Flaco Dave, MS, RD, LD [phone] (cell)"
--- NOTE | 2019-12-03 09:31 | Occupational Ther Daily Note ---
OT Current Status-Daily Note Subjective Pt seen in recliner this am. Pt alert/ oriented to person. Pt readily agreeable to therapy. Pt states pain "all over," as though he's, "been hit by a truck." OT/ PT co-treat for 30 min ([phone]). OT addresses ADL activity, problem solving and UB movements while PT addresses LE movement, balance, fx transfers. Mental Status/Objective Patient Orientation: Person ADL-Treatment Therapy Code Descriptions/Definitions Functional [place] Measure: 0=Not Assessed/NA 4=Minimal Assistance 1=Total Assistance 5=Supervision or Setup 2=Maximal Assistance 6=Modified [place] 3=Moderate Assistance 7=Complete IndependenceSCALE: Activities may be completed with or without assistive devices. 5-Xkvebswsew-wksmqrg completes the activity by him/herself with no assistance from a helper. 5-Set-up or Clean-up Assistance-helper sets up or cleans up; patient completes activity. [place] assists only prior to or following the activity. 4-Supervision or Touching Assistance-helper provides verbal cues and/or touching/steadying and/or contact guard assistance as patient completes activity. Assistance may be provided throughout the activity or intermittently. 3-Partial/Moderate Assistance-helper does LESS THAN HALF the effort. [place] lifts, holds or supports trunk or limbs, but provides less than half the effort. 2-Substantial/Maximal Assistance-helper does MORE THAN HALF the effort. [place] lifts or holds trunk or limbs and provides more than half the effort. 7-Titmptmus-dwusfy does ALL the effort. Patient does none of the effort to complete the activity. Or, the assistance of 2 or more helpers is required for the patient to complete the activity. If activity was not attempted, code reason: 7-Patient Refused. 9-Not Applicable-not attempted and the patient did not perform the activity before the current illness, exacerbation or injury. 10-Not Attempted due to Environmental Limitations-(lack of equipment, weather restraints, etc.). 88-Not Attempted due to Medical Conditions or Safety Concerns. Eating (QC): 6 Oral Hygiene (QC): 7 (denies dentures this date.) Upper Body Dressing (QC): 5 (s/u) Lower Body Dressing (QC): 3 (min A due to fatigue.) On/Off Footwear: 2 (Pt able to thready B socks over toes, requires assist to bring over heels. Pt able to place shoes on feet, through requires assist to stabilize shoe and encourage pt to push into shoe. Requires assist to tie.) Toileting Hygiene (QC): 2 (Max A due to increased BM on scrotum/ inside coccyx Allevian ) Toilet Transfer (QC): 3 (CGA to transfer and CGA-min A for sit to stands. Pt ex periences 1 episode of LOB, requires min A x2 to right self.) Other Treatment Pt seen in recliner. Pt expresses much pain through back. Pt given heat pack with 8 layers of towels for relief during ADLs in recliner. Pt completes dressi ng in recliner. Noted BM coming from briefs, pt educated on this fact and pt transfers [place] [facility] [place] Pt pulls down pants with CGA and encouragement/ problem solving cues. Due to BM, pt requires additional assist as pt grimaces when handed and towelette to cleanse. Pt states tired. Pt stands 3x during clean-up with 1 episode of LOB, pt requires cues each time for hand placement on arm rests rather than walker. Nursing notified of Allevian and soiled. Nursing replaces and pt completely cleansed with max A. Pt returns to recliner. Waffle pillow placed under bottom, pt sits and is educated on 2 exercises to complete when have increased energy. Pt denies completing exercises, though completes 1 rep of each. Pt begins searching for his keys/ states he is going to his truck. Pt educated on time/ position. Pt left with PT with all needs met, call light in reach. OT/ PT co-treat for 30 min ([phone]). OT addresses ADL activity, problem solving and UB movements while PT addresses LE movement, balance, fx transfers. Education OT Patient Education: Correct positioning, Exercise program, Home exercise program, Modified ADL techniques, Purpose of tx/functional activities, Safety issues, Transfer techniques Teaching Recipient: Patient Teaching Methods: Demonstration, Discussion Response to Teaching: Verbalize Understanding, Return Demonstration, Reinforcement Needed OT Short Term Goals Short Term Goals Time Frame: Dec 10, 2019 Eatin Oral hygiene: 3 Toileting hygiene: 2 Shower/bathe self: 2 Upper body dressin Lower body dressin Putting on/taking off footwear: 3 OT Material Requisitioner Goals Material Requisitioner Goals Time Frame: Dec 24, 2019 Eating (QC): 4 Oral Hygiene (QC): 4 Toileting Hygiene (QC): 3 Shower/Bathe Self (QC): 3 Upper Body Dressing (QC): 4 Lower Body Dressing (QC): 4 On/Off Footwear (QC): 4 Additional Goals: 1-Demonstrate ADL Tasks, 2-Verbalize Understanding, 3- ImproveStrength/[place] 1=Demonstrate adherence to instructed precautions during ADL tasks. 2=Patient will verbalize/demonstrate understanding of assistive devices/modifications for ADL. 3=Patient will improve strength/tolerance for activity to enable patient to perform ADL's. OT Education/Plan Problem List/Assessment Assessment: Decreased Activ Tolerance, Decreased Safety Aware, Decreased UE Strength, Dependent Transfers, Impaired Cognition, Impaired Funct Balance, Impaired I ADL's, Impaired Self-Care Skills Discharge Recommendations Plan/Recommendations: Continue POC Therapy Discharge Recommendati: 24 Hour Supervision Treatment Plan/Plan of Care Patient would benefit from OT for education, treatment and training to promote independence in ADL's, mobility, safety and/or upper extremity function for ADL's. Plan of Care: ADL Retraining, Caregiver Training, Functional Mobility, Group Exercise/Act as Ind, UE Funct Exercise/Act, UE Neuromus Re-Ed/Coord Treatment Duration: Dec 24, 2019 Frequency: At least 5 of 7 days/Wk (IRF) Estimated Hrs Per Day: 1.5 hours per day Agreement: Yes Rehab Potential: Guarded Time/GCodes Start Time: 08:00 Stop Time: 09:15 Total Time Billed (hr/min): 75 Billed Treatment Time 1, ADL 4 (60), EX (15)= 75 OT/ PT co-treat for 30 min ([phone]). OT addresses ADL activity, problem solving and UB movements while PT addresses LE movement, balance, fx transfers. MARIA GUADALUPE FARRELL OTR Dec 03, 2019 09:30
[2019-12-03] MEDS: FOLIC ACID 1 MG TAB PO SCH (09:49)
[2019-12-03] MEDS: ENOXAPARIN 30 MG/0.3 ML (LOVENOX) SYR SC SCH (09:49)
--- NOTE | 2019-12-03 09:51 | PM&R Progress Note ---
Subjective HPI/CC On Admission Date Seen by Provider: Dec 03, 2019 Time Seen by Provider: 09:00 Subjective/Events-last exam 12/03/19: Pain is on and off Had a large BM today Sacral ulcer will be managed Incontinence most of the time Doesn't really participate in therapy 12/02/19: Pt actually doing pretty well today Dementia and delirium and agitation seems to be improved this morning TPN is maintained but overall his calorie count only includes snacks and orange slice candy Denies any significant pain Very difficult to have reasonable recovery 12/01/19: Aggressive with aide today Patient becomes paranoid after 700pm c/w was at bedside last night when it occurred 11/30/19: Aggressive and paranoid today Struck out at aide Snacks on candy most of day TPN maintained No BM for 3 days refuses laxatives which are liquid 11/29/19: Pt remains very thin Will see if Dr. Anthony can put a feeding tube in but due to the abdominal wound likely that won't be an option Calorie count will be initiated Eating snacks and candy Last BM was two days ago 11/28/19: Pt very difficult to motivate He exposed himself during group therapy yesterday Colette his having difficulty coping with his very declined state Refuses to eat Maintained on TPN B12 was added after talked to Dr. Anthony in depth Pt has a stage 2 ulcer on his buttock Scheduling Hydrocodone to help his pain Abdominal wound managed by Dr. Anthony 11/27/19: Patient doing better and more alert Team conference thought needs behavioral health evaluation No pain reported now since Hydrocodone for hip pain Checked labs TPN ordered Lactic acid elevated was from dehydration and now resolved DC IVF 1/2 NS Conferred with RN Reviewed therapy notes Checked meds and labs Review of Systems General: Fatigue, Malaise Neurological: Weakness Objective Exam Vital Signs Vital Signs Date Time Temp Pulse Resp B/P (MAP) Pulse Ox O2 Delivery O2 Flow Rate FiO2 12/03/19 17:11 Room Air 12/03/19 16:03 36.8 73 16 115/72 (86) 96 Capillary Refill : Less Than 3 Seconds General Appearance: No Apparent Distress, WD/WN, Chronically ill, Cachetic, Thin HEENT: PERRL/EOMI, Normal ENT Inspection, Pharynx Normal Neck: Full Range of Motion, Normal Inspection, Non Tender, Supple, Carotid Bruit Respiratory: Chest Non Tender, Lungs Clear, Normal Breath Sounds, No Accessory Muscle Use, No Respiratory Distress Cardiovascular: Regular Rate, Rhythm, No Edema, No Gallop, No JVD, No Murmur, Normal Peripheral Pulses Gastrointestinal: Normal Bowel Sounds, No Organomegaly, No Pulsatile Mass, Soft, Other (wound vac) Back: Normal Inspection, No CVA Tenderness, No Vertebral Tenderness Extremity: Normal Capillary Refill, Normal Inspection, Normal Range of Motion, Non Tender, No Calf Tenderness, No Pedal Edema Neurologic/Psychiatric: Alert, Oriented x3, No Motor/Sensory Deficits, supervisor last model department II- XII Norm as Tested, Abnormal Gait, Depressed Affect, Motor Weakness (generalized all extremities), Other (confused subtle) Skin: Normal Color, Warm/Dry Lymphatic: No Adenopathy Results/Procedures Lab Patient resulted labs reviewed. FIM Transfers Therapy Code Descriptions/Definitions Functional [place] Measure: 0=Not Assessed/NA 4=Minimal Assistance 1=Total Assistance 5=Supervision or Setup 2=Maximal Assistance 6=Modified [place] 3=Moderate Assistance 7=Complete IndependenceSCALE: Activities may be completed with or without assistive devices. 5-Uhwecaatvf-rjnvzys completes the activity by him/herself with no assistance from a helper. 5-Set-up or Clean-up Assistance-helper sets up or cleans up; patient completes activity. [place] assists only prior to or following the activity. 4-Supervision or Touching Assistance-helper provides verbal cues and/or touc yariel/steadying and/or contact guard assistance as patient completes activity. Assistance may be provided throughout the activity or intermittently. 3-Partial/Moderate Assistance-helper does LESS THAN HALF the effort. [place] lifts, holds or supports trunk or limbs, but provides less than half the effort. 2-Substantial/Maximal Assistance-helper does MORE THAN HALF the effort. [place] lifts or holds trunk or limbs and provides more than half the effort. 2-Ojsphcmsf-yexxls does ALL the effort. Patient does none of the effort to complete the activity. Or, the assistance of 2 or more helpers is required for the patient to complete the activity. If activity was not attempted, code reason: 7-Patient Refused. 9-Not Applicable-not attempted and the patient did not perform the activity before the current illness, exacerbation or injury. 10-Not Attempted due to Environmental Limitations-(lack of equipment, weather restraints, etc.). 88-Not Attempted due to Medical Conditions or Safety Concerns. Roll Left to Right (QC): 1 Sit to Lying (QC): 4 Sit to Stand (QC): 4 Chair/Xxs-io-Pcohh Xfer(QC): 4 Car Transfer (QC): 1 Gait Training Does the Patient Walk?: Yes Distance: 1x50', 1x150', 100' Walk 10 feet (QC): 4 Walk 50 ft with 2 Turns(QC): 4 Walk 150 ft (QC): 4 Walking 10ft/uneven surface-QC: 88 Gait Persons Needed: 1 Gait Assistive Device: FWW Wheelchair Training Does the Pt Use a Wheelchair?: No Wheel 50 ft with 2 turns (QC): 1 Wheel 150 ft (QC): 1 Type of Wheelchair: Manual Stair Training 1 Step (curb) (QC): 88 4 Steps (QC): 88 12 Steps (QC): 88 Balance Picking up an Object (QC): 88 ADL-Treatment Eating (QC): 6 Oral Hygiene (QC): 7 (denies dentures this date.) Bathing Location: L Arm, R Arm, L Upper Leg, R Upper Leg, L Lower Leg (including foot), R Lower Leg (including foot), Chest, Abdomen, Perineal Area Shower/Bathe Self (QC): 3 (min physical assist with bottom in stance, pt requires cues for continuation of task/ sequencing throughout. Pt wipes feet with socks rather than cloth and washes legs 3x.) Upper Body Dressing (QC): 5 (s/u) Lower Body Dressing (QC): 3 (min A due to fatigue.) On/Off Footwear (QC): 2 (Pt able to thready B socks over toes, requires assist to bring over heels. Pt able to place shoes on feet, through requires assist to stabilize shoe and encourage pt to push into shoe. Requires assist to tie.) Toileting Hygiene (QC): 2 (Max A due to increased BM on scrotum/ inside coccyx Allevian ) Toilet Transfer (QC): 3 (CGA to transfer and CGA-min A for sit to stands. Pt experiences 1 episode of LOB, requires min A x2 to right self.) Assessment/Plan Assessment and Plan Assess & Plan/Chief Complaint Assessment: Myopathy Abdominal wound requiring wound vac COPD Weight loss HTN HLP Elevated lactic acid from dehydration Chronic pain Plan: IRF protocol Dr Anthony to manage wound vac TPN Increase PO nutrition 11/27/19: Discontinue IV fluids Maintain TPN Monitor hemoglobin Await iron level 11/28/19: Patient has difficulty getting ready to participate in therapy Very frail and cachectic Guarded prognosis 11/29/19: Calorie count Appreciate Dr. Anthony evaluate patient for a feeding tube Eating snacks and candy Bowels moved 2 days ago Prognosis guarded 11/30/19: Monitor aggressive behavior Monitor closely Prognosis poor 12/01/19: Confusion noted Agitation and aggressive behaviors TPN maintained 12/02/19: Maintain TPN Continue calorie count Wound care per Dr. Anthony 12/03/19: Large bowel movement today much improved Monitor Sacral ulcer Monitor incontinence (1) Myopathy (2) Weight loss (3) Agitation (4) Lactic acidosis (5) Delirium (6) Rheumatoid arthritis Status: Chronic (7) COPD (chronic obstructive pulmonary disease) Status: Chronic (8) Dysphagia (9) Gastroparesis Status: Acute (10) Colitis Status: Acute (11) Nausea & vomiting Status: Acute ANTONIO BERNSTEIN DO Dec 03, 2019 09:51
--- NOTE | 2019-12-03 10:01 | Physical Therapy Daily Note ---
PT Daily Note-Current Subjective Pt sitting on BS working with OT upon arrival. Pt agrees to PT for co-treat. Pain Comment: Pt reports pain throughout body but does not rate. Mental Status Patient Orientation: Person, Confused Attachments: Other-See Comments (TPN) Transfers SCALE: Activities may be completed with or without assistive devices. 0-Jkypiavees-mdvyjlj completes the activity by him/herself with no assistance from a helper. 5-Set-up or Clean-up Assistance-helper sets up or cleans up; patient completes activity. [place] assists only prior to or following the activity. 4-Supervision or Touching Assistance-helper provides verbal cues and/or touching/steadying and/or contact guard assistance as patient completes activity. Assistance may be provided throughout the activity or intermittently. 3-Partial/Moderate Assistance-helper does LESS THAN HALF the effort. [place] lifts, holds or supports trunk or limbs, but provides less than half the effort. 2-Substantial/Maximal Assistance-helper does MORE THAN HALF the effort. [place] lifts or holds trunk or limbs and provides more than half the effort. 2-Wfikbtsqw-iqsaee does ALL the effort. Patient does none of the effort to complete the activity. Or, the assistance of 2 or more helpers is required for the patient to complete the activity. If activity was not attempted, code reason: 7-Patient Refused. 9-Not Applicable-not attempted and the patient did not perform the activity before the current illness, exacerbation or injury. 10-Not Attempted due to Environmental Limitations-(lack of equipment, weather restraints, etc.). 88-Not Attempted due to Medical Conditions or Safety Concerns. Sit to Stand (QC): 4 Toilet Transfer (QC): 4 Weight Bearing Full Weight Bearing Full Weight Bearing Wheelchair Training Does the Pt Use a Wheelchair?: No Treatments OT/ PT co-treat for 30 min ([phone]). OT addresses ADL activity, problem solving and UB movements while PT addresses LE movement, balance, fx transfers. Pt stands 3x during clean-up with 1 episode of LOB, pt requires cues each time for hand placement on arm rests rather than walker. Nursing notified of [place] and soiled. Nursing replaces and pt completely cleansed with max A. Pt returns to recliner. Waffle pillow placed under bottom, pt sits and is educated on 2 exercises to complete when have increased energy. Pt denies completing exercises, though completes 1 rep of each. Pt begins searching for his keys/ states he is going to his truck. Pt educated on time/ position. PT completes Seated Ex with a lot of encouragement from TIME CLOCK MECHANIC, both VC & TC. Pt wants to stand but attempts to leave FWW behind and sit on chair w/o armrests in room for company. Takes 15m of encouragement to get pt to stand and transfer back to recliner. Pt will not use gaitbelt or FWW, PEANUT FARMER used instead. TIME CLOCK MECHANIC educated pt on safety but pt continues not to listen. Pt resting in recliner with feet up & with all needs met, call light in reach. Assessment Current Status: Poor Progress Pt resists EX and any pt education given. Pt continues to want to do tasks independently but is not safe. Pt becomes agitated with Therapist when helping. PT Short Term Goals Short Term Goals Time Frame: Dec 03, 2019 Roll Left & Right: 3 Sit to lyin Lying to sitting on side of be: 3 Sit to stand: 3 Chair/faf-vg-xcvxi transfer: 3 Walk 10 feet: 3 PT Jail Goals Jail Goals PT Jail Goals Time Frame: Dec 17, 2019 Roll Left & Right (QC): 3 ([place]) Sit to Lying (QC): 3 ([place]) Lying-Sitting on Side/Bed(QC): 3 ([place]) Sit to Stand (QC): 3 ([place]) Chair/Ran-gj-Jmnab Xfer(QC): 3 ([place]) Toilet Transfer (QC): 3 ([place]) Car Transfer (QC): 3 ([place]) Does the Patient Walk: No and Walking Goal IS indicated Walk 10 feet (QC): 3 ([place]) Walk 50ft with 2 Turns (QC): 3 ([place]) Walk 150 ft (QC): 88 Walking 10ft on Uneven Surface: 88 1 Step (curb) (QC): 88 4 Steps (QC): 88 12 Steps (QC): 88 Picking up an Object (QC): 88 Wheel 50 feet with 2 turns (QC: 3 ([place]) Wheel 150 feet: 3 ([place]) PT Plan Problem List Problem List: Activity Tolerance, Functional Strength, Safety, Balance, Gait, Transfer Treatment/Plan Treatment Plan: Continue Plan of Care Treatment Plan: Bed Mobility, Education, Functional Activity [place], Functional Strength, Group Therapy, Gait, Safety, Therapeutic Exercise, Transfers Treatment Duration: Dec 17, 2019 Frequency: At least 5 of 7 days/Wk (IRF) Estimated Hrs Per Day: 1.5 hours per day Patient and/or Family Agrees t: Yes Safety Risks/Education Patient Education: Gait Training, Transfer Techniques, Correct Positioning, Safety Issues Teaching Recipient: Patient Teaching Methods: Discussion Response to Teaching: Reinforcement Needed Time/GCodes Time In: 845 Time Out: 1000 Total Billed Treatment Time: 75 Total Billed Treatment 1,EX (20m) & FA x4 (55m) Co-treat w/OT 30m ([phone]) DEUCE LLOYD PTA Dec 03, 2019 10:01
[2019-12-03] MEDS: HYDROcodone/APAP 10 MG/325 MG (LORTAB) TAB PO PRN (11:57)
--- NOTE | 2019-12-03 12:12 | NUR ---
TPN; TPN CONTINUES AT 68 ML/HR PROVIDING 1670 KCAL WITH 80 GM PROTEIN. INCREASED ACETATE IN TPN.
--- NOTE | 2019-12-03 12:30 | NUR ---
HAS NEEDED TO BE ONE-ON-ONE DUE TO PULLING AT IV, GETTING OUT OF CHAIR, AND VERY CONFUSED. HERE NOW AND MORE COOPERATIVE WITH HER HERE.
--- NOTE | 2019-12-03 13:00 | NUR ---
DR. LOFTON HERE TO SEE PATIENT. DIET ORDER CHANGED TO REGULAR PER GREATER CHOICES OF FOOD SINCE PATIENT IS EATING POORLY. REMAINS ON CALORIE COUNT.
--- NOTE | 2019-12-03 13:31 | Speech Therapy Daily Note ---
Speech Daily Progress Note Subjective Date Seen by Provider: Dec 03, 2019 Time Seen by Provider: 00:30 Patient was sitting in recliner which he kept trying to climb out of. Patient was agitated and difficult to engage this date. Objective Patient completed some safety awareness tasks related to himself with 40% with max cues and/or redirection. Assessment Assessment Current Status: Fair Progress Treatment Plan Continue Plan of Care Speech Short Term Goals Short Term Goals Short Term Goals 1) Patient will complete speech tasks related to his wants/needs with 75% or greater given minimal cues. 2) Patient will complete memory tasks related to his wants/needs with 75% or greater given minimal cues. 3) Patient will complete problem solving tasks related to his wants/needs with 75% or greater given minimal cues. 4) Patient will complete safety awareness tasks related to his wants/needs with 75% or greater given minimal cues. 5) Patient will tolerate least restrictive diet level without s/s of aspiration at 80% or greater intake. 6) Patient/leak patcher will utilize compensatory strategies for safest oral intake at 90% or greater. Speech [facility] Goals Systems Admin Goals Patient will improve cognitive-communication necessary for safety and daily living tasks with minimal assist. Patient will maintain adequate nutrition/hydration with oral/TPN intake. Speech-Plan Patient/Family Goals Patient/Family Goals: Patient wants to return home, however due to his needs, this is not considered a safe discharge placement. Treatment Plan Speech Therapy Treatment Plan: Continue Plan of Care Treatment Duration: Nov 27, 2019 Frequency: 4 times per week (Patient will receive 4-5x ST each week) Estimated Hrs Per Day: Other Rehab Potential: Guarded Barriers to Learning: Patient's dementia and behaviors Pt/Family Agrees to Plan: Yes Safety Risks/Education Teaching Recipient: Patient Teaching Methods: Demonstration, Discussion Response to Teaching: Return Demonstration, Reinforcement Needed Education Topics Provided: Continued safety within his room Time Speech Therapy Time In: 10:30 Speech Therapy Time Out: 11:00 Total Billed Time: 30 Billed Treatment Time 1LUDMILA DYST No WHORTON, BETHAN[address] ST Dec 03, 2019 13:31
--- NOTE | 2019-12-03 14:29 | Physical Therapy Progress Note ---
Therapy Progress Note Pt laying Supine in bed with Sp present. Pt is encouraged to complete additional PT since 15-20m of morning tx was spent trying to convince pt of the benefit of Therapy and to transfer safely to recliner due to sacrum pressure sore (see morning note). Pt declines wanting additional PT time, wants to lay in bed and visit with Sp. No tx rendered DEUCE LLOYD PTA Dec 03, 2019 14:29
--- NOTE | 2019-12-03 14:54 | Progress Note ---
Subjective Date Seen by a Provider: Dec 03, 2019 Time Seen by a Provider: 12:00 Subjective/Events-last exam doing ok. mentation better with around. still very poor PO intake. wound drainage minimal. Objective Exam Vital Signs Date Time Temp Pulse Resp B/P (MAP) Pulse Ox O2 Delivery O2 Flow Rate FiO2 12/03/19 09:00 Room Air 12/03/19 05:31 36.9 74 18 133/78 (96) 98 Room Air 12/02/19 21:00 Room Air 12/02/19 16:05 36.4 76 14 119/70 (86) 99 Room Air I & O 12/03/19 07:00 Intake Total 1010 ml Balance 1010 ml Capillary Refill : Less Than 3 Seconds General Appearance: No Apparent Distress HEENT: PERRL/EOMI Neck: Full Range of Motion Respiratory: Chest Non Tender, Decreased Breath Sounds Cardiovascular: Regular Rate, Rhythm Gastrointestinal: normal bowel sounds, non tender, soft Extremity: Normal Capillary Refill Neurologic/Psychiatric: Alert, Disoriented Skin: Normal Color Lymphatic: No Adenopathy Results Lab Laboratory Tests 12/03/19 06:23: Glucometer 84 Assessment/Plan Assessment/Plan Assess & Plan/Chief Complaint s/p exploratory laparotomy, lysis of adhesions, small bowel resection. continue to encourage PO. cont PT/OT to improve ADL's. continue wet to dry dressing change. 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 may need ileostomy bag. gastrostomy tube may be of benefit however too confused/combative at this time. Clinical Quality Measures DVT/VTE Risk/Contraindication: Risk Factor Score Per Nursin RFS Level Per Nursing on Admit: 4+=Very High ROMAIN LOFTON MD Dec 03, 2019 14:54
[2019-12-03 16:03] VITALS: BP 115/72
[2019-12-03] MEDS: SODIUM ACETATE IV SCH ×11 (16:52)
[2019-12-03] MEDS: SODIUM CHLORIDE IV SCH ×11 (16:52)
[2019-12-03] MEDS: [UNRECOGNIZED DRUG - OTHER] IV SCH ×11 (16:52)
[2019-12-03] MEDS: ACETAMINOPHEN 325 MG TABLET PO PRN (17:19)
[2019-12-03] MEDS: HALOPERIDOL 5 MG/ML (HALDOL) VIAL IM PRN (20:08)
[2019-12-03] MEDS: MELATONIN 10 MG TABLET PO SCH (23:09)
--- NOTE | 2019-12-04 05:48 | PM&R Progress Note ---
Subjective HPI/CC On Admission Date Seen by Provider: Dec 04, 2019 Time Seen by Provider: 09:00 Subjective/Events-last exam 12/04/19: Pt grabbed Stephanie, the RNs hair last night Haldol was given at 8:00 Ativan seemed to make it worse, so that was discontinued Telesitter maintained Overall unsure what the next step will be in his care, but he has such significant cognitive deficits that it is going to be hard to evaluate if he can improve at all from this point on 12/03/19: Pain is on and off Had a large BM today Sacral ulcer will be managed Incontinence most of the time Doesn't really participate in therapy 12/02/19: Pt actually doing pretty well today Dementia and delirium and agitation seems to be improved this morning TPN is maintained but overall his calorie count only includes snacks and orange slice candy Denies any significant pain Very difficult to have reasonable recovery 12/01/19: Aggressive with aide today Patient becomes paranoid after 700pm c/w was at bedside last night when it occurred 11/30/19: Aggressive and paranoid today Struck out at aide Snacks on candy most of day TPN maintained No BM for 3 days refuses laxatives which are liquid 11/29/19: Pt remains very thin Will see if Dr. Anthony can put a feeding tube in but due to the abdominal wound likely that won't be an option Calorie count will be initiated Eating snacks and candy Last BM was two days ago 11/28/19: Pt very difficult to motivate He exposed himself during group therapy yesterday Colette his having difficulty coping with his very declined state Refuses to eat Maintained on TPN B12 was added after talked to Dr. Anthony in depth Pt has a stage 2 ulcer on his buttock Scheduling Hydrocodone to help his pain Abdominal wound managed by Dr. Anthony 11/27/19: Patient doing better and more alert Team conference thought needs behavioral health evaluation No pain reported now since Hydrocodone for hip pain Checked labs TPN ordered Lactic acid elevated was from dehydration and now resolved DC IVF 04/04 NS Conferred with RN Reviewed therapy notes Checked meds and labs Review of Systems General: Fatigue, Malaise Neurological: Weakness Objective Exam Vital Signs Vital Signs Date Time Temp Pulse Resp B/P (MAP) Pulse Ox O2 Delivery O2 Flow Rate FiO2 12/04/19 18:00 36.6 80 16 121/92 (102) 99 Room Air Capillary Refill : Less Than 3 Seconds General Appearance: No Apparent Distress, WD/WN, Chronically ill, Cachetic, Thin HEENT: PERRL/EOMI, Normal ENT Inspection, Pharynx Normal Neck: Full Range of Motion, Normal Inspection, Non Tender, Supple, Carotid Bruit Respiratory: Chest Non Tender, Lungs Clear, Normal Breath Sounds, No Accessory Muscle Use, No Respiratory Distress Cardiovascular: Regular Rate, Rhythm, No Edema, No Gallop, No JVD, No Murmur, Normal Peripheral Pulses Gastrointestinal: Normal Bowel Sounds, No Organomegaly, No Pulsatile Mass, Soft, Other (wound vac) Back: Normal Inspection, No CVA Tenderness, No Vertebral Tenderness Extremity: Normal Capillary Refill, Normal Inspection, Normal Range of Motion, Non Tender, No Calf Tenderness, No Pedal Edema Neurologic/Psychiatric: Alert, Oriented x3, No Motor/Sensory Deficits, nursery supervisor II- XII Norm as Tested, Abnormal Gait, Depressed Affect, Motor Weakness (generalized all extremities), Other (confused subtle) Skin: Normal Color, Warm/Dry Lymphatic: No Adenopathy Results/Procedures Lab Patient resulted labs reviewed. FIM Transfers Therapy Code Descriptions/Definitions Functional [place] Measure: 0=Not Assessed/NA 4=Minimal Assistance 1=Total Assistance 5=Supervision or Setup 2=Maximal Assistance 6=Modified [place] 3=Moderate Assistance 7=Complete IndependenceSCALE: Activities may be completed with or without assistive devices. 5-Grcuvnnvdh-eekcjmp completes the activity by him/herself with no assistance from a helper. 5-Set-up or Clean-up Assistance-helper sets up or cleans up; patient completes activity. [place] assists only prior to or following the activity. 4-Supervision or Touching Assistance-helper provides verbal cues and/or touching/steadying and/or contact guard assistance as patient completes activity. Assistance may be provided throughout the activity or intermittently. 3-Partial/Moderate Assistance-helper does LESS THAN HALF the effort. [place] lifts, holds or supports trunk or limbs, but provides less than half the effort. 2-Substantial/Maximal Assistance-helper does MORE THAN HALF the effort. [place] lifts or holds trunk or limbs and provides more than half the effort. 2-Afvkdkrxc-okfwdk does ALL the effort. Patient does none of the effort to complete the activity. Or, the assistance of 2 or more helpers is required for the patient to complete the activity. If activity was not attempted, code reason: 7-Patient Refused. 9-Not Applicable-not attempted and the patient did not perform the activity before the current illness, exacerbation or injury. 10-Not Attempted due to Environmental Limitations-(lack of equipment, weather restraints, etc.). 88-Not Attempted due to Medical Conditions or Safety Concerns. Roll Left to Right (QC): 1 Sit to Lying (QC): 4 Sit to Stand (QC): 4 Chair/Wtb-oz-Xcmvi Xfer(QC): 4 Car Transfer (QC): 1 Gait Training Does the Patient Walk?: Yes Distance: 1x50', 1x150', 100' Walk 10 feet (QC): 4 Walk 50 ft with 2 Turns(QC): 4 Walk 150 ft (QC): 4 Walking 10ft/uneven surface-QC: 88 Gait Persons Needed: 1 Gait Assistive Device: FWW Wheelchair Training Does the Pt Use a Wheelchair?: Yes Wheel 50 ft with 2 turns (QC): 1 Wheel 150 ft (QC): 1 Type of Wheelchair: Manual Stair Training 1 Step (curb) (QC): 88 4 Steps (QC): 88 12 Steps (QC): 88 Balance Picking up an Object (QC): 88 ADL-Treatment Eating (QC): 6 Oral Hygiene (QC): 7 (denies dentures this date.) Bathing Location: L Arm, R Arm, L Upper Leg, R Upper Leg, L Lower Leg (including foot), R Lower Leg (including foot), Chest, Abdomen, Perineal Area Shower/Bathe Self (QC): 3 (min physical assist with bottom in stance, pt requires cues for continuation of task/ sequencing throughout. Pt wipes feet with socks rather than cloth and washes legs 3x.) Upper Body Dressing (QC): 5 (s/u) Lower Body Dressing (QC): 3 (min A due to fatigue.) On/Off Footwear (QC): 2 (Pt able to thready B socks over toes, requires assist to bring over heels. Pt able to place shoes on feet, through requires assist to stabilize shoe and encourage pt to push into shoe. Requires assist to tie.) Toileting Hygiene (QC): 2 (Max A due to increased BM on scrotum/ inside coccyx Allevian ) Toilet Transfer (QC): 3 (CGA to transfer and CGA-min A for sit to stands. Pt experiences 1 episode of LOB, requires min A x2 to right self.) Assessment/Plan Assessment and Plan Assess & Plan/Chief Complaint Assessment: Myopathy Abdominal wound requiring wound vac COPD Weight loss HTN HLP Elevated lactic acid from dehydration Chronic pain Plan: IRF protocol Dr Anthony to manage wound vac TPN Increase PO nutrition 11/27/19: Discontinue IV fluids Maintain TPN Monitor hemoglobin Await iron level 11/28/19: Patient has difficulty getting ready to participate in therapy Very frail and cachectic Guarded prognosis 11/29/19: Calorie count Appreciate Dr. Anthony evaluate patient for a feeding tube Eating snacks and candy Bowels moved 2 days ago Prognosis guarded 11/30/19: Monitor aggressive behavior Monitor closely Prognosis poor 12/01/19: Confusion noted Agitation and aggressive behaviors TPN maintained 12/02/19: Maintain TPN Continue calorie count Wound care per Dr. Anthony 12/03/19: Large bowel movement today much improved Monitor Sacral ulcer Monitor incontinence 12/04/19: Disposition per team conference Cognitive deficit especially sundowning is an issue Very difficult behaviors (1) Myopathy (2) Weight loss (3) Agitation (4) Lactic acidosis (5) Delirium (6) Rheumatoid arthritis Status: Chronic (7) COPD (chronic obstructive pulmonary disease) Status: Chronic (8) Dysphagia (9) Gastroparesis Status: Acute (10) Colitis Status: Acute (11) Nausea & vomiting Status: Acute ANTONIO BERNSTEIN DO Dec 04, 2019 05:48
[2019-12-04 06:02] VITALS: BP 112/70
[2019-12-04] MEDS: CYANOCOBALAMIN 1,000 MCG (VITAMIN B-12) TABLET PO SCH (06:12)
--- NOTE | 2019-12-04 08:35 | NUR ---
"CALORIE COUNT Est kcal needs: 1800 kcal | 30 kcal/kg Est Pro needs: 72 g Pro | 1.2 g Pro/kg Note pt currently on TPN, providing 1670 kcal (28 kcal/kg); 80 g Pro (1.3 g Pro/kg). This currently provides sufficient kcal (93%) and protein (111%) to meet pt's nutritional needs 11/28: 478 kcal (27% of est needs) | 14 g Pro (19% of est needs) 11/29: 358 kcal (20% of est needs) | 4 g Pro (1% of est needs) 11/30: 514 kcal (29% of est needs) | 11 g Pro (15% of est needs) 12/01: 343 kcal (19% of est needs) | 11 g Pro (15% of est needs) | Note: Pt refused B and L trays, per chart review. 12/02: 164 kcal (9% of est needs) | 5 g Pro (7% of est needs) Would recommend continuation of TPN to provide nutritional needs for pt. Encouraged pt to eat when able. Will continue to follow and reassess as pt needs, intake, and status change. Flaco Dave, MS, RD, LD [phone] (cell)"
[2019-12-04] MEDS ORDERED: LIDO1ADH78 TP (08:46)
[2019-12-04] MEDS ORDERED: ROPI2TAB6 PO (08:46)
[2019-12-04] MEDS ORDERED: AMLO1CAP4 PO (08:46)
[2019-12-04] MEDS ORDERED: PANT40SU PO (08:46)
[2019-12-04] MEDS ORDERED: ALEN70TA5 PO (08:46)
[2019-12-04] MEDS ORDERED: TERA2CAP4 PO (08:46)
[2019-12-04] MEDS ORDERED: METH2.5T PO (08:46)
[2019-12-04] MEDS ORDERED: FLUT1BLS IH (08:46)
[2019-12-04] MEDS ORDERED: ATOR10TA66 PO (08:46)
--- NOTE | 2019-12-04 09:27 | Occupational Ther Daily Note ---
OT Current Status-Daily Note Subjective Pt seen in bed this am. Pt alert, oriented to person only. Pt states he had poor night, when asked how he feels/ any pain pt states, "I feel like I've been hit by a truck." Pt later asks if he receives any pain med here, OT ensures he does if he wants any, pt shakes head no. Pt is asked when came yesterday. Pt states she did not come and he hasn't been able to get a hold of anyone, referring to his phone. Pt educated on being here yesterday afternoon and shown the sign in/out guest book with her name on it. Pt states he does not remember yesterday afternoon at all. When asked if he remembered yesterday morning, pt shrugs and shakes head. OT individual tx: [id number] (35) OT/ PT co-tx: [id number] (50): Co-treat rendered, OT addresses ADLs, problem solving/ sequencing and UE movement while PT addresses fx ambulation/ transfers/ LE movement. OT total: 85 Mental Status/Objective Patient Orientation: Person Attachments: IV ADL-Treatment Therapy Code Descriptions/Definitions Functional [place] Measure: 0=Not Assessed/NA 4=Minimal Assistance 1=Total Assistance 5=Supervision or Setup 2=Maximal Assistance 6=Modified [place] 3=Moderate Assistance 7=Complete IndependenceSCALE: Activities may be completed with or without assistive devices. 4-Nhrvmrnzux-tcdfrdt completes the activity by him/herself with no assistance from a helper. 5-Set-up or Clean-up Assistance-helper sets up or cleans up; patient completes activity. [place] assists only prior to or following the activity. 4-Supervision or Touching Assistance-helper provides verbal cues and/or touching/steadying and/or contact guard assistance as patient completes activity. Assistance may be provided throughout the activity or intermittently. 3-Partial/Moderate Assistance-helper does LESS THAN HALF the effort. [place] lifts, holds or supports trunk or limbs, but provides less than half the effort. 2-Substantial/Maximal Assistance-helper does MORE THAN HALF the effort. [place] lifts or holds trunk or limbs and provides more than half the effort. 1-Kxvlqxzvy-wnwmqa does ALL the effort. Patient does none of the effort to complete the activity. Or, the assistance of 2 or more helpers is required for the patient to complete the activity. If activity was not attempted, code reason: 7-Patient Refused. 9-Not Applicable-not attempted and the patient did not perform the activity before the current illness, exacerbation or injury. 10-Not Attempted due to Environmental Limitations-(lack of equipment, weather restraints, etc.). 88-Not Attempted due to Medical Conditions or Safety Concerns. Eating (QC): 6 (drinks coffee, denies food. Pt's food warmed up for encouragement and left with PT end of session.) Upper Body Dressing (QC): 5 Lower Body Dressing (QC): 3 (Pt threads BLE EOb with success and good balance, pt requires assist to steady self in stance and dry chain puller hips.) On/Off Footwear: 6 (Pt dons EOB and completes shoe lace tightening (improvement of problem solving from previous tx) and tying.) Toileting Hygiene (QC): 2 (max A bottom hygiene. When asked if pt can complete pt leans against wall and shakes head no.) Toilet Transfer (QC): 4 (CGA) Other Treatment Pt requires increased encouragement for participation this am. Pt completes dressing EOB. When standing for pant hike, pt leans calves against bed and requires min A to right self in stance. Pt able to ambulate to bathroom for shaving task. Pt stands with CGA-min A during minimal LOB. Pt able to utilize arms to grab bar/ sink appropriately/ reactions in tact. Pt stands for ~10 min, shaves. Pt requires use of bathroom. BSC placed behind pt with successful BM. Pt grabs paper towels to cleanse self. Pt given toilet paper. Pt again grabs paper towels. Pt requires encouragmeent to stand to complete BM cleaning. Pt stands and denies cleaning himself. Pt completes with max A. Pt ambulates to room, nona cross gait and pt states dizziness. Chair given to pt. Sits with control. Once recovered, pt ambulates to bed. Pt left with PT end of session, all needs met. Education OT Patient Education: Correct positioning, Modified ADL techniques, Progress toward Goal/Update tx plan, Purpose of tx/functional activities, Safety issues, Transfer techniques Teaching Recipient: Patient Teaching Methods: Demonstration, Discussion Response to Teaching: Verbalize Understanding, Return Demonstration OT Short Term Goals Short Term Goals Time Frame: Dec 10, 2019 Eatin Oral hygiene: 3 Toileting hygiene: 2 Shower/bathe self: 2 Upper body dressin Lower body dressin Putting on/taking off footwear: 3 OT [facility] Goals Wafer Batter Mixer Goals Time Frame: Dec 24, 2019 Eating (QC): 4 Oral Hygiene (QC): 4 Toileting Hygiene (QC): 3 Shower/Bathe Self (QC): 3 Upper Body Dressing (QC): 4 Lower Body Dressing (QC): 4 On/Off Footwear (QC): 4 Additional Goals: 1-Demonstrate ADL Tasks, 2-Verbalize Understanding, 3- ImproveStrength/[place] 1=Demonstrate adherence to instructed precautions during ADL tasks. 2=Patient will verbalize/demonstrate understanding of assistive devices/modifications for ADL. 3=Patient will improve strength/tolerance for activity to enable patient to perform ADL's. OT Education/Plan Problem List/Assessment Assessment: Decreased Activ Tolerance, Decreased Safety Aware, Decreased UE Strength, Dependent Transfers, Impaired Cognition, Impaired Funct Balance, Impaired I ADL's, Impaired Self-Care Skills Discharge Recommendations Plan/Recommendations: Continue POC Therapy Discharge Recommendati: 24 Hour Supervision Treatment Plan/Plan of Care Treatment,Training & Education: Yes Patient would benefit from OT for education, treatment and training to promote independence in ADL's, mobility, safety and/or upper extremity function for ADL 's. Plan of Care: ADL Retraining, Caregiver Training, Functional Mobility, Group Exercise/Act as Ind, UE Funct Exercise/Act, UE Neuromus Re-Ed/Coord Treatment Duration: Dec 24, 2019 Frequency: At least 5 of 7 days/Wk (IRF) Estimated Hrs Per Day: 1.5 hours per day Agreement: Yes Rehab Potential: Guarded Time/GCodes Start Time: 07:55 Stop Time: 09:20 Total Time Billed (hr/min): 85 Billed Treatment Time OT individual tx: [id number] (35) OT/ PT co-tx: [id number] (50): Co-treat rendered, OT addresses ADLs, problem solving/ sequencing and UE movement while PT addresses fx ambulation/ transfers/ LE movement. OT total: 85 MARIA GUADALUPE FARRELL OTR Dec 04, 2019 09:27
[2019-12-04] MEDS: IRON SUCROSE 200 MG/10 ML (VENOFER) VIAL IV SCH (09:44)
--- NOTE | 2019-12-04 09:44 | Physical Therapy Daily Note ---
PT Daily Note-Current Subjective Pt sitting at EOB with OT upon arrival. Pt agrees to PT. Mental Status Patient Orientation: Person, Confused Attachments: Other-See Comments (TPN) Transfers SCALE: Activities may be completed with or without assistive devices. 0-Kadhrackwg-qakcwpv completes the activity by him/herself with no assistance from a helper. 5-Set-up or Clean-up Assistance-helper sets up or cleans up; patient completes activity. [place]ore assists only prior to or following the activity. 4-Supervision or Touching Assistance-helper provides verbal cues and/or touching/steadying and/or contact guard assistance as patient completes activity. Assistance may be provided throughout the activity or intermittently. 3-Partial/Moderate Assistance-helper does LESS THAN HALF the effort. Sag[place]ore lifts, holds or supports trunk or limbs, but provides less than half the effort. 2-Substantial/Maximal Assistance-helper does MORE THAN HALF the effort. [place] lifts or holds trunk or limbs and provides more than half the effort. 1-Xdzgoydch-gkokdy does ALL the effort. Patient does none of the effort to complete the activity. Or, the assistance of 2 or more helpers is required for the patient to complete the activity. If activity was not attempted, code reason: 7-Patient Refused. 9-Not Applicable-not attempted and the patient did not perform the activity before the current illness, exacerbation or injury. 10-Not Attempted due to Environmental Limitations-(lack of equipment, weather restraints, etc.). 88-Not Attempted due to Medical Conditions or Safety Concerns. Sit to Lying (QC): 5 Sit to Stand (QC): 4 Weight Bearing Full Weight Bearing Full Weight Bearing Gait Training Does the Patient Walk?: Yes Distance: 25' x2 Walk 10 feet (QC): 4 Gait Persons Needed: 1 Gait Assistive Device: FWW Pt scissors feet as he fatigues then reports dizziness towards end of tx. Treatments Pt is finishing dressing at EOB upon arrival. Pt asks to shave. Upon entering BR, pt reports needing to use BSC and has BM. After pericare, Pt stands to shave. Pt stands at CGA until eventually fatiguing and MEASUREMENT AND VERIFICATION ENGINEER provides Min A. Pt sits to rest then stands again before scissoring then rests again. After RB, pt returns to bed to rest. Pt declines breakfast. MEASUREMENT AND VERIFICATION ENGINEER assists repositioning after pt transfers to supine in bed. Pt has all needs met, call light in hand. PT focuses on transfers, dynamic sitting & standing balance as well as mobility while OT works on toileting and ADLs. Co-treat from 820-920 (60m). Need for 2 skilled clinicians due to decreased balance and safety needs because pt is impulsive and socially aware. Assessment Current Status: Fair Progress Pt fatigues quickly and demonstrates impulsivity and lack of social awareness even w/VC from Therapy. PT Short Term Goals Short Term Goals Time Frame: Dec 03, 2019 Roll Left & Right: 3 Sit to lyin Lying to sitting on side of be: 3 Sit to stand: 3 Chair/rvb-vx-lgpgg transfer: 3 Walk 10 feet: 3 PT Quantitative Developer Goals Quantitative Developer Goals PT Quantitative Developer Goals Time Frame: Dec 17, 2019 Roll Left & Right (QC): 3 (Marivel) Sit to Lying (QC): 3 (Marivel) Lying-Sitting on Side/Bed(QC): 3 (Marivel) Sit to Stand (QC): 3 (Marivel) Chair/Svp-ok-Giirw Xfer(QC): 3 (Marivel) Toilet Transfer (QC): 3 (Marivel) Car Transfer (QC): 3 (Marivel) Does the Patient Walk: No and Walking Goal IS indicated Walk 10 feet (QC): 3 (Marivel) Walk 50ft with 2 Turns (QC): 3 (Marivel) Walk 150 ft (QC): 88 Walking 10ft on Uneven Surface: 88 1 Step (curb) (QC): 88 4 Steps (QC): 88 12 Steps (QC): 88 Picking up an Object (QC): 88 Wheel 50 feet with 2 turns (QC: 3 (Marivel) Wheel 150 feet: 3 (Marivel) PT Plan Problem List Problem List: Activity Tolerance, Functional Strength, Safety, Balance, Gait Treatment/Plan Treatment Plan: Continue Plan of Care Treatment Plan: Bed Mobility, Education, Functional Activity W[place]o, Functional Strength, Group Therapy, Gait, Safety, Therapeutic Exercise, Transfers Treatment Duration: Dec 17, 2019 Frequency: At least 5 of 7 days/Wk (IRF) Estimated Hrs Per Day: 1.5 hours per day Patient and/or Family Agrees t: Yes Safety Risks/Education Patient Education: Gait Training, Correct Positioning, Safety Issues Teaching Recipient: Patient Teaching Methods: Discussion Response to Teaching: Reinforcement Needed Time/GCodes Time In: 820 Time Out: 925 Total Billed Treatment Time: 65 Total Billed Treatment 1, FA x4 (65m) co-treat with OT for 60m (820-920) DEUCE LLOYD MEASUREMENT AND VERIFICATION ENGINEER Dec 04, 2019 09:44
[2019-12-04] MEDS: LACTOBACILLUS ACIDOPHILUS (PROBIOTIC) CAPSULE PO SCH ×2 (09:48→21:56)
[2019-12-04] MEDS: SENNA W/DOCUSATE (SENOKOT S) TABLET PO SCH ×2 (09:48→21:55)
[2019-12-04] MEDS: FAMOTIDINE 20 MG (PEPCID) TABLET PO SCH ×2 (09:48→21:56)
[2019-12-04] MEDS: FERROUS SULF 325 MG (IRON) TAB PO SCH (09:49)
[2019-12-04] MEDS: FOLIC ACID 1 MG TAB PO SCH (09:49)
[2019-12-04] MEDS: DULoxetine 30 MG (CYMBALTA) CAP PO SCH (09:49)
[2019-12-04] MEDS: MEGESTROL 40 MG (MEGACE) TAB PO SCH ×2 (09:49→21:56)
[2019-12-04] MEDS: QUEtiapine 25 MG (SEROquel) TAB IMMEDIATE RELEASE PO SCH ×2 (09:49→16:56)
[2019-12-04] MEDS: HYDROcodone/APAP 5 MG/325 MG (LORTAB) TAB PO SCH ×3 (09:49→21:57)
[2019-12-04] MEDS: ENOXAPARIN 30 MG/0.3 ML (LOVENOX) SYR SC SCH (09:49)
[2019-12-04] MEDS: polyethylene glycoL POWDER 17 GM (MIRALAX) PACK PO SCH ×2 (09:59→21:57)
[2019-12-04] MEDS: DOCUSATE SODIUM 100 MG (COLACE) CAP PO SCH ×2 (09:59→21:56)
[2019-12-04] MEDS ORDERED: MULT-1136 PO (10:08)
[2019-12-04] MEDS ORDERED: ASCO500C17 PO (10:08)
[2019-12-04] MEDS ORDERED: FERR325T18 PO (10:08)
--- NOTE | 2019-12-04 11:28 | Speech Therapy Daily Note ---
Speech Daily Progress Note Subjective Date Seen by Provider: Dec 04, 2019 Time Seen by Provider: 00:30 Patient was laying in bed looking on his table and around the bed for his cell phone. Nurses aid and clinician searched for it as well but were unable to locate it. Nurses aid thought the patient's took it home last evening so that she could charge it. Objective Patient completed fill in the blank cognitive tasks with 60% given moderate cues and response time. Assessment Assessment Current Status: Fair Progress Treatment Plan Continue Plan of Care Speech Short Term Goals Short Term Goals Short Term Goals 1) Patient will complete speech tasks related to his wants/needs with 75% or greater given minimal cues. 2) Patient will complete memory tasks related to his wants/needs with 75% or greater given minimal cues. 3) Patient will complete problem solving tasks related to his wants/needs with 75% or greater given minimal cues. 4) Patient will complete safety awareness tasks related to his wants/needs with 75% or greater given minimal cues. 5) Patient will tolerate least restrictive diet level without s/s of aspiration at 80% or greater intake. 6) Patient/custom tailor apprentice will utilize compensatory strategies for safest oral intake at 90% or greater. Speech Usp Goals Usp Goals Patient will improve cognitive-communication necessary for safety and daily living tasks with minimal assist. Patient will maintain adequate nutrition/hydration with oral/TPN intake. Speech-Plan Patient/Family Goals Patient/Family Goals: Patient plans on discharging to home, however this will be discussed in the Medicare planning mtg this afternoon. Treatment Plan Speech Therapy Treatment Plan: Continue Plan of Care Treatment Duration: Nov 27, 2019 Frequency: 4 times per week (Patient will receive 4-5x ST each week) Estimated Hrs Per Day: Other Rehab Potential: Guarded Barriers to Learning: Patient's dementia, decreased retention of information, behaviors Pt/Family Agrees to Plan: Yes Safety Risks/Education Teaching Recipient: Patient Teaching Methods: Demonstration, Discussion Response to Teaching: Verbalize Understanding, Return Demonstration, Reinforcement Needed Education Topics Provided: Continued safety awareness in his room, Continued safety of oral intake Time Speech Therapy Time In: 10:30 Speech Therapy Time Out: 11:00 Total Billed Time: 30 Billed Treatment Time 1, SLTS, DYST JAE MCGUIRE ST Dec 04, 2019 11:28
[2019-12-04] MEDS: HYDROcodone/APAP 10 MG/325 MG (LORTAB) TAB PO PRN (13:40)
--- NOTE | 2019-12-04 13:54 | Progress Note ---
Subjective Date Seen by a Provider: Dec 04, 2019 Time Seen by a Provider: 13:00 Subjective/Events-last exam doing well. no significant change. . poor PO intake. family does not want g- tube. Objective Exam Vital Signs Date Time Temp Pulse Resp B/P (MAP) Pulse Ox O2 Delivery O2 Flow Rate FiO2 12/04/19 09:00 Room Air 12/04/19 06:02 36.8 84 16 112/70 (84) 97 Room Air 12/03/19 21:00 Room Air 12/03/19 17:11 Room Air 12/03/19 16:03 36.8 73 16 115/72 (86) 96 Room Air I & O 12/04/19 07:00 Intake Total 2100 ml Output Total 50 ml Balance 2050 ml Capillary Refill : Less Than 3 Seconds General Appearance: No Apparent Distress HEENT: PERRL/EOMI Neck: Full Range of Motion Respiratory: Chest Non Tender, Decreased Breath Sounds Cardiovascular: Regular Rate, Rhythm Gastrointestinal: normal bowel sounds, soft Extremity: Normal Capillary Refill Neurologic/Psychiatric: Alert, Oriented x3 Skin: Normal Color Lymphatic: No Adenopathy Results Lab Laboratory Tests 12/04/19 06:13: Glucometer 114H Assessment/Plan Assessment/Plan Assess & Plan/Chief Complaint s/p exploratory laparotomy, lysis of adhesions, small bowel resection. continue to encourage PO. cont PT/OT to improve ADL's. continue wet to dry dressing change. 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 may need ileostomy bag. gastrostomy tube may be of benefit however too confused/combative at this time and family does not want. Clinical Quality Measures DVT/VTE Risk/Contraindication: Risk Factor Score Per Nursin RFS Level Per Nursing on Admit: 4+=Very High ROMAIN LOFTON MD Dec 04, 2019 13:54
--- NOTE | 2019-12-04 15:26 | NUR ---
PT IS ON ROOM AIR. PT IS IN NO RESPIRATORY DISTRESS. Addendum: 12/04/19 at 1526 by MELISSA GARSIA RT Amended: Links added.
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
[2019-12-04] MEDS: [UNRECOGNIZED DRUG - OTHER] IV SCH ×11 (16:56)
[2019-12-04] MEDS: SODIUM ACETATE IV SCH ×11 (16:56)
[2019-12-04] MEDS: SODIUM CHLORIDE IV SCH ×11 (16:56)
[2019-12-04] MEDS: HALOPERIDOL 5 MG/ML (HALDOL) VIAL IM PRN (17:50)
[2019-12-04 18:00] VITALS: BP 121/92
--- NOTE | 2019-12-04 18:00 | NUR ---
At approximately 1730 patient began getting combative and verbal with . Previously, approximately 1715 Patient attempted to use urinal, was unsuccessful, and spilled urine in brief and on abdomen. This nurse and PRINT CONTROLLER talked to patient about cleaning up, while patient attempted to button up his shorts. Patient got upset with staff, so staff left for a few minutes to come back and try again. In the mean time, patient was climbing over side rails and called nursing staff in. Patient became aggressive, hitting at and kicking staff. Map And Chart Mounter notified and asked to assist. Map And Chart Mounter and Physician notified. Haldol injection given. Patient continued to be aggressive. Once somewhat calm, re-entered room and patient seemed to calm. Will continue to monitor.
[2019-12-04] MEDS ORDERED: WATER (STERILE) FOR INJECTION 10 ML ONE (19:14)
[2019-12-04] MEDS: ZIPRASIDONE 20 MG INJ (GEODON) VIAL IM PRN (19:26)
[2019-12-04] MEDS: OLANZapine 5 MG ODT (ZyPREXA ZYDIS) PO SCH (21:56)
[2019-12-04] MEDS: MELATONIN 10 MG TABLET PO SCH (21:56)
[2019-12-05 04:54] LABS: HEMOGLOBIN 8.1 G/DL (13.3-17.7); MEAN PLATELET VOLUME 9.2 FL (7.4-10.4); WHITE BLOOD COUNT 11.8 10^3/uL (4.3-11.0)
[2019-12-05 05:16] LABS: BUN/CREATININE RATIO 31; CARBON DIOXIDE 23 MMOL/L (21-32); CHLORIDE 109 MMOL/L (98-107); CREATININE SERUM 0.59 MG/DL (0.60-1.30); SODIUM 138 MMOL/L (135-145)
[2019-12-05 05:17] LABS: ALANINE AMINOTRANSFERASE 34 U/L (0-55); ALBUMIN 2.4 GM/DL (3.2-4.5); ALKALINE PHOSPHATASE 82 U/L (40-136); BILIRUBIN,TOTAL 0.3 MG/DL (0.1-1.0); CALCIUM 8.7 MG/DL (8.5-10.1); GFR ESTIMATED > 60; GLUCOSE 87 MG/DL (70-105); MAGNESIUM 2.1 MG/DL (1.6-2.4); PHOSPHORUS 4.2 MG/DL (2.3-4.7); TOTAL PROTEIN 6.9 GM/DL (6.4-8.2); TRIGLYCERIDES 80 MG/DL (<150)
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
[2019-12-05] MEDS: CYANOCOBALAMIN 1,000 MCG (VITAMIN B-12) TABLET PO SCH (06:11)
[2019-12-05] MEDS: HYDROcodone/APAP 10 MG/325 MG (LORTAB) TAB PO PRN (06:11)
[2019-12-05] MEDS: HYDROcodone/APAP 5 MG/325 MG (LORTAB) TAB PO SCH ×3 (06:17→20:58)
[2019-12-05 06:18] VITALS: BP 129/81
[2019-12-05] MEDS: LACTOBACILLUS ACIDOPHILUS (PROBIOTIC) CAPSULE PO SCH ×2 (08:33→20:58)
[2019-12-05] MEDS: SENNA W/DOCUSATE (SENOKOT S) TABLET PO SCH ×2 (08:33→20:58)
[2019-12-05] MEDS: MEGESTROL 40 MG (MEGACE) TAB PO SCH ×2 (08:33→20:58)
[2019-12-05] MEDS: FAMOTIDINE 20 MG (PEPCID) TABLET PO SCH ×2 (08:33→20:58)
[2019-12-05] MEDS: DULoxetine 30 MG (CYMBALTA) CAP PO SCH (08:33)
[2019-12-05] MEDS: FERROUS SULF 325 MG (IRON) TAB PO SCH (08:33)
[2019-12-05] MEDS: DOCUSATE SODIUM 100 MG (COLACE) CAP PO SCH ×2 (08:33→20:58)
[2019-12-05] MEDS: QUEtiapine 25 MG (SEROquel) TAB IMMEDIATE RELEASE PO SCH ×2 (08:33→18:21)
[2019-12-05] MEDS: ENOXAPARIN 30 MG/0.3 ML (LOVENOX) SYR SC SCH (08:33)
[2019-12-05] MEDS: FOLIC ACID 1 MG TAB PO SCH (08:33)
--- NOTE | 2019-12-05 09:12 | Occupational Ther Daily Note ---
OT Current Status-Daily Note Subjective Pt alert this am. Pt oriented to person, place, year. Educated on situation/ dx. Pt initiates verbals with less cues upon entry, conversational. Pt states pain, then denies pain meds when OT asks. OT/ PT co-treat. OT addresses ADLs, problem solving, UE movement and sequencing while PT addresses fx transfers, balance, LE movement. Mental Status/Objective Patient Orientation: Person, Place, Time ADL-Treatment Therapy Code Descriptions/Definitions Functional [place] Measure: 0=Not Assessed/NA 4=Minimal Assistance 1=Total Assistance 5=Supervision or Setup 2=Maximal Assistance 6=Modified [place] 3=Moderate Assistance 7=Complete IndependenceSCALE: Activities may be completed with or without assistive devices. 4-Qdvfvogipv-bsaqalm completes the activity by him/herself with no assistance from a helper. 5-Set-up or Clean-up Assistance-helper sets up or cleans up; patient completes activity. [place] assists only prior to or following the activity. 4-Supervision or Touching Assistance-helper provides verbal cues and/or touching/steadying and/or contact guard assistance as patient completes activity. Assistance may be provided throughout the activity or intermittently. 3-Partial/Moderate Assistance-helper does LESS THAN HALF the effort. [place] lifts, holds or supports trunk or limbs, but provides less than half the effort. 2-Substantial/Maximal Assistance-helper does MORE THAN HALF the effort. [place] lifts or holds trunk or limbs and provides more than half the effort. 0-Rrejzabeb-lkxuja does ALL the effort. Patient does none of the effort to complete the activity. Or, the assistance of 2 or more helpers is required for the patient to complete the activity. If activity was not attempted, code reason: 7-Patient Refused. 9-Not Applicable-not attempted and the patient did not perform the activity before the current illness, exacerbation or injury. 10-Not Attempted due to Environmental Limitations-(lack of equipment, weather restraints, etc.). 88-Not Attempted due to Medical Conditions or Safety Concerns. Eating (QC): 6 (drinks with IND.) Oral Hygiene (QC): 7 Shower/Bathe Self (QC): 7 (initially non-resistive to sponge bath until items prepped, then adamantly denies.) Upper Body Dressing (QC): 7 (denies changing gown upon multiple attempts) Lower Body Dressing (QC): 2 (max A threading breifs EOB and pt stands with CGA and min A to right while OT/ pt attempt over hips ) On/Off Footwear: 7 (Adamantly denies.) Toileting Hygiene (QC): 7 (denies, states need for BM and urination. Denies getting to toilet or completing clean up post urination in brief. ) Toilet Transfer (QC): 7 (BSC placed beside bed upon pt's statement of urgent need to urinate. Pt requires encouragement to stand, attempts and sits, pt requires increased cues to attempt again and denies. Agrees to changing briefs.) Other Treatment OT addresses ADLs, problem solving, UE movement and sequencing while PT addresses fx transfers, balance, LE movement. Pt denies sponge bath, denies changing clothing. Pt encouraged to get out of bed or complete functional tasks. Pt denies. Pt educated on ratio of strength loss when in bed all day and educated on purpose of therapy and need to strengthen to go home. Pt agrees to get EOB after 30 min of encouragement, completes with max A. Pt sits EOB, completes bimanual/ unimanual tasks with fair static sitting balance EOB. Pt states he has lost all gas/ energy. Pt drinks coffee, denies placing shoes/ socks on. Only with pt's need for urination does he attempt to participate with therapy to get to commode. However, pt denies CGA assist stating he would like to do it. Pt denies socks even after education on fall r isk/ feet slipping on floor whilst attempting to stand. After sit to stand attempt by pt (unable without assist, which was denied) pt sits EOB and requires encouragement to try again after break. Pt denies. Pt allows max A for brief donning. pt asked if he would like to go to chair or bed, again educated on benefits of upright positing. Pt states, "Neither." Pt eventually completes bed mob to supine with SBA. Pt left in bed with all needs met, call light in reach, all bed rails up and bed alarm on. Pt denies blankets or additional needs. Pt given urinal and educated monotype caster light if need to use bathroom. Education OT Patient Education: Correct positioning, Purpose of tx/functional activities, Rehab process, Safety issues, Transfer techniques Teaching Recipient: Patient Teaching Methods: Demonstration, Discussion Response to Teaching: Verbalize Understanding, Unable to Return Demonstration, Reinforcement Needed OT Short Term Goals Short Term Goals Time Frame: Dec 10, 2019 Eatin Oral hygiene: 3 Toileting hygiene: 2 Shower/bathe self: 2 Upper body dressin Lower body dressin Putting on/taking off footwear: 3 OT Solutions Delivery Consultant Goals Solutions Delivery Consultant Goals Time Frame: Dec 24, 2019 Eating (QC): 4 Oral Hygiene (QC): 4 Toileting Hygiene (QC): 3 Shower/Bathe Self (QC): 3 Upper Body Dressing (QC): 4 Lower Body Dressing (QC): 4 On/Off Footwear (QC): 4 Additional Goals: 1-Demonstrate ADL Tasks, 2-Verbalize Understanding, 3- ImproveStrength/[place] 1=Demonstrate adherence to instructed precautions during ADL tasks. 2=Patient will verbalize/demonstrate understanding of assistive devices/modifications for ADL. 3=Patient will improve strength/tolerance for activity to enable patient to perform ADL's. OT Education/Plan Problem List/Assessment Assessment: Decreased Activ Tolerance, Decreased Safety Aware, Decreased UE Strength, Dependent Transfers, Impaired Bed Mobility, Impaired Funct Balance, Impaired I ADL's, Impaired Self-Care Skills Discharge Recommendations Plan/Recommendations: Continue POC Therapy Discharge Recommendati: 24 Hour Supervision Treatment Plan/Plan of Care Treatment,Training & Education: Yes Patient would benefit from OT for education, treatment and training to promote independence in ADL's, mobility, safety and/or upper extremity function for ADL's. Plan of Care: ADL Retraining, Caregiver Training, Functional Mobility, Group Exercise/Act as Ind, UE Funct Exercise/Act, UE Neuromus Re-Ed/Coord Treatment Duration: Dec 24, 2019 Frequency: At least 5 of 7 days/Wk (IRF) Estimated Hrs Per Day: 1.5 hours per day Agreement: Yes Rehab Potential: Guarded Time/GCodes Start Time: 08:00 Stop Time: 09:00 Total Time Billed (hr/min): 60 Billed Treatment Time OT addresses ADLs, problem solving, UE movement and sequencing while PT addresses fx transfers, balance, LE movement. 1, FA 3 (45), ADL (15)= 60 MARIA GUADALUPE FARRELL OTR Dec 05, 2019 09:12
--- NOTE | 2019-12-05 09:30 | Physical Therapy Daily Note ---
PT Daily Note-Current Subjective Pt laying Supine in bed as OT & SURGICAL SALES REPRESENTATIVE enter room. Pt reluctantly agrees to limited tx. Pt is more alert but more resistive to any tx. Educated on situation/ dx. Pt initiates verbals with less cues upon entry, conversational. Pt states pain, then denies pain meds when OT asks. OT/ PT co-treat. OT addresses ADLs, problem solving, UE movement and sequencing while PT addresses fx transfers, balance, LE movement. Transfers SCALE: Activities may be completed with or without assistive devices. 6-Dbrbjnmgkk-ssvaizr completes the activity by him/herself with no assistance from a helper. 5-Set-up or Clean-up Assistance-helper sets up or cleans up; patient completes activity. [place] assists only prior to or following the activity. 4-Supervision or Touching Assistance-helper provides verbal cues and/or touching/steadying and/or contact guard assistance as patient completes activity. Assistance may be provided throughout the activity or intermittently. 3-Partial/Moderate Assistance-helper does LESS THAN HALF the effort. [place] lifts, holds or supports trunk or limbs, but provides less than half the effort. 2-Substantial/Maximal Assistance-helper does MORE THAN HALF the effort. [place] lifts or holds trunk or limbs and provides more than half the effort. 5-Vzqmtetea-axurau does ALL the effort. Patient does none of the effort to complete the activity. Or, the assistance of 2 or more helpers is required for the patient to complete the activity. If activity was not attempted, code reason: 7-Patient Refused. 9-Not Applicable-not attempted and the patient did not perform the activity before the current illness, exacerbation or injury. 10-Not Attempted due to Environmental Limitations-(lack of equipment, weather restraints, etc.). 88-Not Attempted due to Medical Conditions or Safety Concerns. Sit to Lying (QC): 2 Sit to Stand (QC): 2 Weight Bearing Full Weight Bearing Full Weight Bearing Treatments OT addresses ADLs, problem solving, UE movement and sequencing while PT addresses fx transfers, balance, LE movement. Pt denies sponge bath, denies changing clothing. Pt encouraged to get out of bed or complete functional tasks. Pt denies. Pt educated on ratio of strength loss when in bed all day and educated on purpose of therapy and need to strengthen to go home. Pt agrees to get EOB after 30 min of encouragement, completes with max A. Pt sits EOB, completes bimanual/ unimanual tasks with fair static sitting balance EOB. Pt states he has lost all gas/ energy. Pt drinks coffee, denies placing shoes/ socks on. Only with pt's need for urination does he attempt to participate with therapy to get to commode. However, pt denies CGA assist stating he would like to do it. Pt denies socks even after education on fall ris k/ feet slipping on floor whilst attempting to stand. After sit to stand attempt by pt (unable without assist, which was denied) pt sits EOB and requires encouragement to try again after break. Pt denies. Pt allows max A for brief donning. pt asked if he would like to go to chair or bed, again educated on benefits of upright positing. Pt states, "Neither." Pt eventually completes bed mob to supine with SBA. Pt left in bed with all needs met, call light in reach, all bed rails up and bed alarm on. Pt denies blankets or additional needs. Pt given urinal and educated cert occupational therapy asst light if need to use bathroom. Assessment Current Status: Poor Progress Pt is resistive to tx including performing tasks himself or taking assistance as needed. Pt demonstrates a "giving up" mentality. PT Short Term Goals Short Term Goals Time Frame: Dec 03, 2019 Roll Left & Right: 3 Sit to lyin Lying to sitting on side of be: 3 Sit to stand: 3 Chair/glb-po-kfuad transfer: 3 Walk 10 feet: 3 PT [employer] Goals Chcf Goals PT Chcf Goals Time Frame: Dec 17, 2019 Roll Left & Right (QC): 3 ([place]) Sit to Lying (QC): 3 ([place]) Lying-Sitting on Side/Bed(QC): 3 ([place]) Sit to Stand (QC): 3 ([place]) Chair/Xux-zv-Tshze Xfer(QC): 3 ([place]) Toilet Transfer (QC): 3 ([place]) Car Transfer (QC): 3 ([place]) Does the Patient Walk: No and Walking Goal IS indicated Walk 10 feet (QC): 3 ([place]) Walk 50ft with 2 Turns (QC): 3 ([place]) Walk 150 ft (QC): 88 Walking 10ft on Uneven Surface: 88 1 Step (curb) (QC): 88 4 Steps (QC): 88 12 Steps (QC): 88 Picking up an Object (QC): 88 Wheel 50 feet with 2 turns (QC: 3 ([place]) Wheel 150 feet: 3 ([place]) PT Plan Problem List Problem List: Activity Tolerance, Functional Strength, Safety, Transfer Treatment/Plan Treatment Plan: Continue Plan of Care Treatment Plan: Bed Mobility, Education, Functional Activity [place], Functional Strength, Group Therapy, Gait, Safety, Therapeutic Exercise, Transfers Treatment Duration: Dec 17, 2019 Frequency: At least 5 of 7 days/Wk (IRF) Estimated Hrs Per Day: 1.5 hours per day Patient and/or Family Agrees t: Yes Safety Risks/Education Patient Education: Transfer Techniques, Correct Positioning, Safety Issues Teaching Recipient: Patient Teaching Methods: Discussion Response to Teaching: Reinforcement Needed Time/GCodes Time In: 800 Time Out: 900 Total Billed Treatment Time: 60 Total Billed Treatment 1, FA x4 (60m) Co-treat 60m w/OT (800-900), OT addresses ADLs, problem solving, UE movement and sequencing while PT addresses fx transfers, balance, LE movement. DEUCE LLOYD SURGICAL SALES REPRESENTATIVE Dec 05, 2019 09:30
[2019-12-05] MEDS: ZIPRASIDONE 20 MG INJ (GEODON) VIAL IM PRN ×3 (09:48→20:57)
[2019-12-05] MEDS: polyethylene glycoL POWDER 17 GM (MIRALAX) PACK PO SCH ×2 (09:53→21:02)
[2019-12-05] MEDS: HALOPERIDOL 5 MG/ML (HALDOL) VIAL IM PRN (11:22)
--- NOTE | 2019-12-05 11:25 | NUR ---
Geodon injection given at 0948 due to patient climbing over side rails, refusing help, and becoming combative with staff. Patient was dry, offered nourishment. Patient continued to escalate after Geodon injection. Patient assisted to restroom, refusing to use any assistive devices, and cleaned up from having a BM. Patient became weak while walking back from bathroom. Patient grabbed onto this nurse around the shoulder and expressed that he was fearful that he would fall. Patient reassured and assisted to wheelchair. Patient stayed in wheelchair and wheeled around room, came out to main area with one on one supervision. Patient continues to be anxious and restless, attempting to stand with no assist, refusing help, continuing to express that he was "getting out of here and walking home". IM Haldol given.
--- NOTE | 2019-12-05 12:56 | Occ Therapy Progress Note ---
Therapy Progress Note OT attempted tx, pt seated in recliner with lunch tray in front of him. Pt started saying "out" as he reached for his tray. Therapist asked pt if he wanted her to get out, pt states "out" as he reached towards his pudding. OT educated pt on benefits of OT tx, encouraging pt to participate, but pt continued to escalate yelling "get out". OT left room due to pt stating to get out and appearing as if he was going to throw his lunch at therapist. FURNITURE UPHOLSTERER APPRENTICE entered pt's room to sit in his room as therapist left. OT will attempt again in the morning. 1, refusal 1245 INES MURPHY OT Dec 05, 2019 12:56
--- NOTE | 2019-12-05 12:56 | Physical Therapy Progress Note ---
Therapy Progress Note Pt sitting in recliner upon arrival. REGIONAL VICE PRESIDENT LIFE SALES barely enters room before pt yells "Get out" and grabs tray. REGIONAL VICE PRESIDENT LIFE SALES encourages pt to participate and giving benefits of Therapy as pt again yells "Get Out" and grabs for food tray. TRAINING AND DOCUMENTATION SPECIALIST sits in pt's room as REGIONAL VICE PRESIDENT LIFE SALES leaves group at pt's request. PT will attempt again in morning for tx. 1, refused, no tx rendered DEUCE LLOYD PTA Dec 05, 2019 12:56
[2019-12-05] MEDS ORDERED: WATER (STERILE) FOR INJECTION 20 ML ONE (13:27)
--- NOTE | 2019-12-05 14:10 | NUR ---
"CALORIE COUNT Est kcal needs: 1800 kcal | 30 kcal/kg Est Pro needs: 72 g Pro | 1.2 g Pro/kg Note pt currently on TPN, providing 1670 kcal (28 kcal/kg); 80 g Pro (1.3 g Pro/kg). This currently provides sufficient kcal (93%) and protein (111%) to meet pt's nutritional needs 11/28: 478 kcal (27% of est needs) | 14 g Pro (19% of est needs) 11/29: 358 kcal (20% of est needs) | 4 g Pro (1% of est needs) 11/30: 514 kcal (29% of est needs) | 11 g Pro (15% of est needs) 12/01: 343 kcal (19% of est needs) | 11 g Pro (15% of est needs) | Note: Pt refused B and L trays, per chart review. 12/02: 164 kcal (9% of est needs) | 5 g Pro (7% of est needs) 12/03: 1111 kcal (61% of est needs) | 33 g Pro (46% of est needs) Note 12/03 has shown a drastic improvement in PO intake. Bulk of kcal was from food provided from home (ham/beans and cornbread). Would recommend continuation of TPN to provide nutritional needs for pt. Encouraged pt to eat when able. Will continue to follow and reassess as pt needs, intake, and status change. Flaco Dave, MS, RD, LD [phone] (cell)"
--- NOTE | 2019-12-05 15:38 | Speech Therapy Daily Note ---
Speech Daily Progress Note Subjective Date Seen by Provider: Dec 05, 2019 Time Seen by Provider: 00:30 Patient has exhibited agitation with everyone entering his room this am. Patient has had LOAN SERVICES PROFESSIONAL one on one for much of the morning to assist in calming patient. Objective Patient answered relevant questions to his needs with minimal level of agitation with clinician at 80%. Assessment Assessment Current Status: Fair Progress Treatment Plan Continue Plan of Care Speech Short Term Goals Short Term Goals Short Term Goals 1) Patient will complete speech tasks related to his wants/needs with 75% or greater given minimal cues. 2) Patient will complete memory tasks related to his wants/needs with 75% or gre ater given minimal cues. 3) Patient will complete problem solving tasks related to his wants/needs with 75% or greater given minimal cues. 4) Patient will complete safety awareness tasks related to his wants/needs with 75% or greater given minimal cues. 5) Patient will tolerate least restrictive diet level without s/s of aspiration at 80% or greater intake. 6) Patient/wash and greaser will utilize compensatory strategies for safest oral intake at 90% or greater. Speech Halfway Goals [place] Goals Patient will improve cognitive-communication necessary for safety and daily living tasks with minimal assist. Patient will maintain adequate nutrition/hydration with oral/TPN intake. Speech-Plan Patient/Family Goals Patient/Family Goals: Patient plans on returning to his home, however due to his level of confusion, medical status and agitation he may require an alternate discharge location. Treatment Plan Speech Therapy Treatment Plan: Continue Plan of Care Treatment Duration: Nov 27, 2019 Frequency: 4 times per week (Patient will receive 4-5x ST each week) Estimated Hrs Per Day: Other Rehab Potential: Guarded Barriers to Learning: Patient's confusion and agitation Pt/Family Agrees to Plan: Yes Safety Risks/Education Teaching Recipient: Patient Teaching Methods: Demonstration, Discussion Response to Teaching: Verbalize Understanding, Return Demonstration, Reinforcement Needed Education Topics Provided: Continued safety within his room, safety of oral intake Time Speech Therapy Time In: 11:00 Speech Therapy Time Out: 11:30 Total Billed Time: 30 Billed Treatment Time 1, LUDMILA, JAE Amaya Dec 05, 2019 15:38
[2019-12-05 16:30] VITALS: BP 132/81
[2019-12-05] MEDS: ACETAMINOPHEN 325 MG TABLET PO PRN (18:34)
[2019-12-05] MEDS: NS IV 1000 ML 1,000 ML IV SCH (19:01)
[2019-12-05] MEDS ORDERED: WATER (STERILE) FOR INJECTION 10 ML ONE (20:10)
[2019-12-05] MEDS: MELATONIN 10 MG TABLET PO SCH (20:58)
[2019-12-05] MEDS: OLANZapine 5 MG ODT (ZyPREXA ZYDIS) PO SCH (20:58)
[2019-12-06] MEDS: CYANOCOBALAMIN 1,000 MCG (VITAMIN B-12) TABLET PO SCH (06:27)
[2019-12-06] MEDS: HYDROcodone/APAP 5 MG/325 MG (LORTAB) TAB PO SCH ×3 (06:27→21:11)
[2019-12-06 06:43] VITALS: BP 143/89
[2019-12-06] MEDS: NS IV 1000 ML 1,000 ML IV SCH ×2 (08:43→23:04)
[2019-12-06] MEDS: FERROUS SULF 325 MG (IRON) TAB PO SCH (08:44)
[2019-12-06] MEDS: FOLIC ACID 1 MG TAB PO SCH (08:44)
[2019-12-06] MEDS: DULoxetine 30 MG (CYMBALTA) CAP PO SCH (08:44)
[2019-12-06] MEDS: MEGESTROL 40 MG (MEGACE) TAB PO SCH ×2 (08:44→21:10)
[2019-12-06] MEDS: QUEtiapine 25 MG (SEROquel) TAB IMMEDIATE RELEASE PO SCH ×2 (08:44→16:23)
[2019-12-06] MEDS: FAMOTIDINE 20 MG (PEPCID) TABLET PO SCH ×2 (08:44→21:10)
[2019-12-06] MEDS: LACTOBACILLUS ACIDOPHILUS (PROBIOTIC) CAPSULE PO SCH ×2 (08:45→21:10)
[2019-12-06] MEDS: SENNA W/DOCUSATE (SENOKOT S) TABLET PO SCH ×2 (08:45→21:24)
[2019-12-06] MEDS: DOCUSATE SODIUM 100 MG (COLACE) CAP PO SCH ×2 (08:55→21:11)
[2019-12-06] MEDS: polyethylene glycoL POWDER 17 GM (MIRALAX) PACK PO SCH ×2 (08:55→21:24)
--- NOTE | 2019-12-06 10:06 | Occupational Ther Daily Note ---
OT Current Status-Daily Note Subjective Pt seen in bed this am. Has in-person sitter. Pt alert/ oriented to person only. Pt states [place] different city and does not answer year/ situation (this is at end of session). pt agrees to OT tx session with hesitation. OT individual tx: [id number] OT/ PT co-treat from [id number]. OT addresses UE movement, problem solving, ADL activities while PT addresses fx transfers, balance, gait and mobility. Mental Status/Objective Patient Orientation: Person Attachments: IV ADL-Treatment Therapy Code Descriptions/Definitions Functional [place] Measure: 0=Not Assessed/NA 4=Minimal Assistance 1=Total Assistance 5=Supervision or Setup 2=Maximal Assistance 6=Modified [place] 3=Moderate Assistance 7=Complete IndependenceSCALE: Activities may be completed with or without assistive devices. 8-Sfebibffcr-rfgcyny completes the activity by him/herself with no assistance from a helper. 5-Set-up or Clean-up Assistance-helper sets up or cleans up; patient completes activity. [place] assists only prior to or following the activity. 4-Supervision or Touching Assistance-helper provides verbal cues and/or touching/steadying and/or contact guard assistance as patient completes activity. Assistance may be provided throughout the activity or intermittently. 3-Partial/Moderate Assistance-helper does LESS THAN HALF the effort. [place] lifts, holds or supports trunk or limbs, but provides less than half the effort. 2-Substantial/Maximal Assistance-helper does MORE THAN HALF the effort. [place] lifts or holds trunk or limbs and provides more than half the effort. 1-Hzpifdohz-upccww does ALL the effort. Patient does none of the effort to complete the activity. Or, the assistance of 2 or more helpers is required for the patient to complete the activity. If activity was not attempted, code reason: 7-Patient Refused. 9-Not Applicable-not attempted and the patient did not perform the activity before the current illness, exacerbation or injury. 10-Not Attempted due to Environmental Limitations-(lack of equipment, weather restraints, etc.). 88-Not Attempted due to Medical Conditions or Safety Concerns. Eating (QC): 3 (min A. Pt requires assist holding cup and bringing to mouth. Pt requires straw due to decreased strength/ AROM on this date. Pt able to pick items from fork and bring to mouth.) Oral Hygiene (QC): 7 (denies hygiene, though able to take dentures out of mouth with assist due to discomfort) Shower/Bathe Self (QC): 2 (Pt requires max cues for participation of sponge bath due to attention. Pt unable to reach face due to UE fatigue, requires OT to complete face. Pt able to complete janet hygiene, though requires assist with all other tasks. ) Lower Body Dressing (QC): 3 (Pt completes pant donning with min A) On/Off Footwear: 2 (max A this date.) Toileting Hygiene (QC): 2 (Max A bottom hygiene in stance. Pt unable to maintain balance to complete bottom hygiene. Pt able to cleanse janet area.) Toilet Transfer (QC): 3 (min A due to sequencing/ problem solving. ) Other Treatment Pt completes feeding (cinnamon roll and coffee) in bed with max encouragement and min A. Pt able to reach EOB with max encouragement, participates in sponge bath with cues for attention/ sequencing/ continuation of task. pt states need for urination, BSC placed beside bed and pt stands with BRIDGE RIGGER to urinate in BSC. At end of stream, reddish colored urine is noticed. Nursing notified. Pt sits on commode for BM, completes with success. Pt completes 4 sit to stands during max A for bottom hygiene and brief donning/ pant donning. Each time with CGA-min A and cues intermittently to push from BSC rails rather than walker. Pt unable to problem solve this task and brings self from walker each time. pt in high spirits this session, laughs often and makes jokes. pt alert, though oriented to person only. All tasks require increased time due to attention/ problem solving. Pt left with PT end of session. All needs met. Education OT Patient Education: Correct positioning, Modified ADL techniques, Purpose of tx/functional activities, Safety issues, Transfer techniques Teaching Recipient: Patient Teaching Methods: Demonstration, Discussion Response to Teaching: Verbalize Understanding, Unable to Return Demonstration, Return Demonstration, Unable to Comprehend, Reinforcement Needed OT Short Term Goals Short Term Goals Time Frame: Dec 10, 2019 Eatin Oral hygiene: 3 Toileting hygiene: 2 Shower/bathe self: 2 Upper body dressin Lower body dressin Putting on/taking off footwear: 3 OT Usp Goals Usp Goals Time Frame: Dec 24, 2019 Eating (QC): 4 Oral Hygiene (QC): 4 Toileting Hygiene (QC): 3 Shower/Bathe Self (QC): 3 Upper Body Dressing (QC): 4 Lower Body Dressing (QC): 4 On/Off Footwear (QC): 4 Additional Goals: 1-Demonstrate ADL Tasks, 2-Verbalize Understanding, 3-ImproveStrength/[place] 1=Demonstrate adherence to instructed precautions during ADL tasks. 2=Patient will verbalize/demonstrate understanding of assistive devices/modifications for ADL. 3=Patient will improve strength/tolerance for activity to enable patient to perform ADL's. OT Education/Plan Problem List/Assessment Assessment: Decreased Activ Tolerance, Decreased Safety Aware, Decreased UE Strength, Dependent Transfers, Impaired Bed Mobility, Impaired Cognition, Impaired Funct Balance, Impaired I ADL's, Impaired Self-Care Skills Discharge Recommendations Plan/Recommendations: Continue POC Therapy Discharge Recommendati: 24 Hour Supervision Treatment Plan/Plan of Care Patient would benefit from OT for education, treatment and training to promote independence in ADL's, mobility, safety and/or upper extremity function for ADL's. Plan of Care: ADL Retraining, Caregiver Training, Functional Mobility, Group Exercise/Act as Ind, UE Funct Exercise/Act, UE Neuromus Re-Ed/Coord Treatment Duration: Dec 24, 2019 Frequency: At least 5 of 7 days/Wk (IRF) Estimated Hrs Per Day: 1.5 hours per day Agreement: Yes Rehab Potential: Guarded Time/GCodes Start Time: 08:00 Stop Time: 09:15 Total Time Billed (hr/min): 75 Billed Treatment Time 1, ADL 5 (75) OT/ PT co-treat from [id number]. OT addresses UE movement, problem solving, ADL activities while PT addresses fx transfers, balance, gait and mobility. MARIA GUADALUPE FARRELL OTR Dec 06, 2019 10:06
--- NOTE | 2019-12-06 10:24 | Physical Therapy Daily Note ---
PT Daily Note-Current Subjective Pt agreeable to PT. Pt visits throughout treatment intermittently, but topic is varied and not always sensical. Mental Status Patient Orientation: Confused Attachments: IV Transfers SCALE: Activities may be completed with or without assistive devices. 4-Nofvbbdeil-agesfmf completes the activity by him/herself with no assistance from a helper. 5-Set-up or Clean-up Assistance-helper sets up or cleans up; patient completes activity. [place] assists only prior to or following the activity. 4-Supervision or Touching Assistance-helper provides verbal cues and/or touching/steadying and/or contact guard assistance as patient completes activity. Assistance may be provided throughout the activity or intermittently. 3-Partial/Moderate Assistance-helper does LESS THAN HALF the effort. [place] lifts, holds or supports trunk or limbs, but provides less than half the effort. 2-Substantial/Maximal Assistance-helper does MORE THAN HALF the effort. [place] lifts or holds trunk or limbs and provides more than half the effort. 0-Vllewvfry-vmhlvr does ALL the effort. Patient does none of the effort to complete the activity. Or, the assistance of 2 or more helpers is required for the patient to complete the activity. If activity was not attempted, code reason: 7-Patient Refused. 9-Not Applicable-not attempted and the patient did not perform the activity before the current illness, exacerbation or injury. 10-Not Attempted due to Environmental Limitations-(lack of equipment, weather restraints, etc.). 88-Not Attempted due to Medical Conditions or Safety Concerns. Roll Left & Right (QC): 4 Lying to Sitting/Side of Bed(Q: 4 (Per OT with CGA with constant cues and encouragment. ) Sit to Stand (QC): 4 (CGA with skilled cues for seqeuncing and task initiation) Chair/Ijm-no-Cxrkh Xfer(QC): 3 (min assist for balance and to manage walker) Toilet Transfer (QC): 4 (CGA; sit to stand x 2 reps.) Cues to initiate task and to stay on task. Assist for safety and sequencing. Weight Bearing Full Weight Bearing Full Weight Bearing Gait Training Does the Patient Walk?: Yes Distance: 200 ft x 4 reps Walk 10 feet (QC): 3 Walk 50 ft with 2 Turns(QC): 3 Walk 150 ft (QC): 3 Walking 10ft/uneven surface-QC: 88 Gait Persons Needed: 1 Gait Assistive Device: FWW Min to CGA with gait for balance and to steady pt; pt intermittently scissors gait and has a narrow LEO; difficulty avoiding obstacles; requires assist for safety and walker management. Wheelchair Training Does the Pt Use a Wheelchair?: No Stair Training 1 Step (curb) (QC): 88 4 Steps (QC): 88 12 Steps (QC): 88 decreased safety awareness and functional balance; unsafe to attempt to step up steps this visit; fall risk. Balance Picking up an Object (QC): 88 (decreased safety awareness increases risk of fall or pt unable to respond to balance pertebation) Exercises Seated Therapy Exercises: Ankle pumps (15), Sit to stand (5), Long arc quads (15), Hip flexion (15) Treatments Co treat with OT x 15 minutes as pt completed functional task of lower body dressing; OT addressed clothing management as PT addressed sequencing and task completing of sit to stand; skill of 2 clinicians indicated due to heavy need for assist; heavy cues and decreased safety awareness on the part of the patient. Assessment Pt more cooperative this date and did participate with skilled intervention. Pt requires near constant cues throughout for task initiation, task completion and sequencing. Assist with all mobility due to functional weakness and balance deficits noted. Unsafe gait with scissoring at times and impaired balance. PT Short Term Goals Short Term Goals Time Frame: Dec 03, 2019 Roll Left & Right: 3 Sit to lyin Lying to sitting on side of be: 3 Sit to stand: 3 Chair/rlj-xg-qvege transfer: 3 Walk 10 feet: 3 PT Fresh Food Manager Goals Fpc Goals PT Fresh Food Manager Goals Time Frame: Dec 17, 2019 Roll Left & Right (QC): 3 ([place]) Sit to Lying (QC): 3 ([place]) Lying-Sitting on Side/Bed(QC): 3 ([place]) Sit to Stand (QC): 3 ([place]) Chair/Qvk-ti-Agpyx Xfer(QC): 3 ([place]) Toilet Transfer (QC): 3 ([place]) Car Transfer (QC): 3 ([place]) Does the Patient Walk: No and Walking Goal IS indicated Walk 10 feet (QC): 3 ([place]) Walk 50ft with 2 Turns (QC): 3 ([place]) Walk 150 ft (QC): 88 Walking 10ft on Uneven Surface: 88 1 Step (curb) (QC): 88 4 Steps (QC): 88 12 Steps (QC): 88 Picking up an Object (QC): 88 Wheel 50 feet with 2 turns (QC: 3 ([place]) Wheel 150 feet: 3 ([place]) PT Plan Problem List Problem List: Activity Tolerance, Functional Strength, Safety, Balance, Gait, Transfer, Bed Mobility Treatment/Plan Treatment Plan: Continue Plan of Care Treatment Plan: Bed Mobility, Education, Functional Activity [place], Functional Strength, Group Therapy, Gait, Safety, Therapeutic Exercise, Transfers Treatment Duration: Dec 17, 2019 Frequency: At least 5 of 7 days/Wk (IRF) Estimated Hrs Per Day: 1.5 hours per day Patient and/or Family Agrees t: Yes Safety Risks/Education Patient Education: Transfer Techniques, Safety Issues Teaching Recipient: Patient Teaching Methods: Demonstration, Discussion Response to Teaching: Reinforcement Needed Discharge Recommendations Therapy Discharge Recommendati: 24 Hour Supervision Time/GCodes Time In: 900 Time Out: 1015 Total Billed Treatment Time: 75 Total Billed Treatment visit FA 15 (co treat with OT) GT 45 EX 15 FATOUMATA GUIDRY PT Dec 06, 2019 10:23
[2019-12-06] MEDS: ENOXAPARIN 30 MG/0.3 ML (LOVENOX) SYR SC SCH (10:29)
[2019-12-06] MEDS: IRON SUCROSE 200 MG/10 ML (VENOFER) VIAL IV SCH (10:30)
--- NOTE | 2019-12-06 10:39 | NUR ---
DR. BERNSTEIN HERE. INFORMED THAT PATIENT IS UNABLE TO SWALLOW CYMBALTA CAPSULES WHOLE. LABEL SAYS DO NOT CRUSH. DC CYMBALTA PER DR. BERNSTEIN. CONTINUED BLOOD IN URINE. ANIMAL ECOLOGIST REPORTS UNABLE TO COLLECT URINE FOR UA LAST NIGHT D/T PATIENT BEING INCONTINENT ONLY. ORDERS TO DC UA ORDER AND DC LOVENOX. PATIENT HAS BEEN UP WALKING IN THE HALLS WITH THERAPY THIS AM.
--- NOTE | 2019-12-06 12:00 | Progress Note ---
Subjective Date Seen by a Provider: Dec 06, 2019 Time Seen by a Provider: 11:45 Subjective/Events-last exam patinet maintaining status quo. still confused especially at night. very poor PO intake and family would not like gastrostomy tube. Objective Exam Vital Signs Date Time Temp Pulse Resp B/P (MAP) Pulse Ox O2 Delivery O2 Flow Rate FiO2 12/06/19 09:59 Room Air 12/06/19 06:43 36.2 70 16 143/89 (107) 99 Room Air 12/05/19 20:10 Room Air 12/05/19 18:34 37.6 12/05/19 16:30 36.6 97 16 132/81 (98) 93 Room Air I & O 12/06/19 07:00 Intake Total 452.42 ml Balance 452.42 ml Capillary Refill : Less Than 3 Seconds General Appearance: No Apparent Distress HEENT: PERRL/EOMI Neck: Full Range of Motion Respiratory: Chest Non Tender, Normal Breath Sounds, Decreased Breath Sounds Cardiovascular: Regular Rate, Rhythm Gastrointestinal: normal bowel sounds, soft Extremity: Normal Capillary Refill Neurologic/Psychiatric: Disoriented Skin: Normal Color Lymphatic: No Adenopathy Results Lab Laboratory Tests 12/06/19 05:31: Glucometer 67L Assessment/Plan Assessment/Plan Assess & Plan/Chief Complaint s/p exploratory laparotomy, lysis of adhesions, small bowel resection. continue to encourage PO. cont PT/OT to improve ADL's. continue wet to dry dressing change. 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 may need ileostomy bag. gastrostomy tube may be of benefit however too confused/combative at this time and family does not want. Clinical Quality Measures DVT/VTE Risk/Contraindication: Risk Factor Score Per Nursin RFS Level Per Nursing on Admit: 4+=Very High ROMAIN LOFTON MD Dec 06, 2019 12:00
--- NOTE | 2019-12-06 12:48 | PM&R Progress Note ---
Subjective HPI/CC On Admission Date Seen by Provider: Dec 06, 2019 Time Seen by Provider: 12:00 Subjective/Events-last exam 12/06/19: Increased Seroquel seems to be working well Awaiting SBH at first of week Cachexia noted, BMI 16 12/05/19: Pt having significant behavior disturbances due to dementia and delirium Geodon of 10mg injection is working pretty well Bowels are moving TPN has been shut off to help build an appetite since he eats about 1000 calories a day on junk food Lortab given 3x a day Labs look really good, no evidence of any sepsis causing the delirium 12/04/19: Pt grabbed Stephanie, the RNs hair last night Haldol was given at 8:00 Ativan seemed to make it worse, so that was discontinued Telesitter maintained Overall unsure what the next step will be in his care, but he has such significant cognitive deficits that it is going to be hard to evaluate if he can improve at all from this point on 12/03/19: Pain is on and off Had a large BM today Sacral ulcer will be managed Incontinence most of the time Doesn't really participate in therapy 12/02/19: Pt actually doing pretty well today Dementia and delirium and agitation seems to be improved this morning TPN is maintained but overall his calorie count only includes snacks and orange slice candy Denies any significant pain Very difficult to have reasonable recovery 12/01/19: Aggressive with aide today Patient becomes paranoid after 700pm c/w was at bedside last night when it occurred 11/30/19: Aggressive and paranoid today Struck out at aide Snacks on candy most of day TPN maintained No BM for 3 days refuses laxatives which are liquid 11/29/19: Pt remains very thin Will see if Dr. Anthony can put a feeding tube in but due to the abdominal wound likely that won't be an option Calorie count will be initiated Eating snacks and candy Last BM was two days ago 11/28/19: Pt very difficult to motivate He exposed himself during group therapy yesterday Colette his having difficulty coping with his very declined state Refuses to eat Maintained on TPN B12 was added after talked to Dr. Anthony in depth Pt has a stage 2 ulcer on his buttock Scheduling Hydrocodone to help his pain Abdominal wound managed by Dr. Anthony 11/27/19: Patient doing better and more alert Team conference thought needs behavioral health evaluation No pain reported now since Hydrocodone for hip pain Checked labs TPN ordered Lactic acid elevated was from dehydration and now resolved DC IVF 1/2 NS Conferred with RN Reviewed therapy notes Checked meds and labs Review of Systems Neurological: Confusion Objective Exam Vital Signs Vital Signs Date Time Temp Pulse Resp B/P (MAP) Pulse Ox O2 Delivery O2 Flow Rate FiO2 12/07/19 05:43 37.0 67 16 145/78 (100) 98 Room Air Capillary Refill : Less Than 3 Seconds General Appearance: No Apparent Distress HEENT: PERRL/EOMI Neck: Full Range of Motion Respiratory: Chest Non Tender, Normal Breath Sounds, Decreased Breath Sounds Cardiovascular: Regular Rate, Rhythm Gastrointestinal: Normal Bowel Sounds, No Organomegaly, No Pulsatile Mass, Soft, Other (wound vac) Back: Normal Inspection, No CVA Tenderness, No Vertebral Tenderness Extremity: Normal Capillary Refill Neurologic/Psychiatric: Disoriented Skin: Normal Color Lymphatic: No Adenopathy Results/Procedures Lab Patient resulted labs reviewed. FIM Transfers Therapy Code Descriptions/Definitions Functional [place] Measure: 0=Not Assessed/NA 4=Minimal Assistance 1=Total Assistance 5=Supervision or Setup 2=Maximal Assistance 6=Modified [place] 3=Moderate Assistance 7=Complete IndependenceSCALE: Activities may be completed with or without assistive devices. 6-Vtvawtqgfd-fcqkvzs completes the activity by him/herself with no assistance from a helper. 5-Set-up or Clean-up Assistance-helper sets up or cleans up; patient completes activity. [place] assists only prior to or following the activity. 4-Supervision or Touching Assistance-helper provides verbal cues and/or touching/steadying and/or contact guard assistance as patient completes activity. Assistance may be provided throughout the activity or intermittently. 3-Partial/Moderate Assistance-helper does LESS THAN HALF the effort. [place] lifts, holds or supports trunk or limbs, but provides less than half the effort. 2-Substantial/Maximal Assistance-helper does MORE THAN HALF the effort. [place] lifts or holds trunk or limbs and provides more than half the effort. 6-Lldsaufjb-ugmigx does ALL the effort. Patient does none of the effort to c omplete the activity. Or, the assistance of 2 or more helpers is required for the patient to complete the activity. If activity was not attempted, code reason: 7-Patient Refused. 9-Not Applicable-not attempted and the patient did not perform the activity before the current illness, exacerbation or injury. 10-Not Attempted due to Environmental Limitations-(lack of equipment, weather restraints, etc.). 88-Not Attempted due to Medical Conditions or Safety Concerns. Roll Left to Right (QC): 4 Sit to Lying (QC): 2 Sit to Stand (QC): 4 (CGA with skilled cues for seqeuncing and task initiation) Chair/Ayg-oo-Kstlh Xfer(QC): 3 (min assist for balance and to manage walker) Car Transfer (QC): 1 Gait Training Does the Patient Walk?: Yes Distance: 200 ft x 4 reps Walk 10 feet (QC): 3 Walk 50 ft with 2 Turns(QC): 3 Walk 150 ft (QC): 3 Walking 10ft/uneven surface-QC: 88 Gait Persons Needed: 1 Gait Assistive Device: FWW Wheelchair Training Does the Pt Use a Wheelchair?: No Wheel 50 ft with 2 turns (QC): 1 Wheel 150 ft (QC): 1 Type of Wheelchair: Manual Stair Training 1 Step (curb) (QC): 88 4 Steps (QC): 88 12 Steps (QC): 88 Balance Picking up an Object (QC): 88 (decreased safety awareness increases risk of fall or pt unable to respond to balance pertebation) ADL-Treatment Eating (QC): 3 (min A. Pt requires assist holding cup and bringing to mouth. Pt requires straw due to decreased strength/ AROM on this date. Pt able to pick items from fork and bring to mouth.) Oral Hygiene (QC): 7 (denies hygiene, though able to take dentures out of mouth with assist due to discomfort) Bathing Location: L Arm, R Arm, L Upper Leg, R Upper Leg, L Lower Leg (including foot), R Lower Leg (including foot), Chest, Abdomen, Perineal Area Shower/Bathe Self (QC): 2 (Pt requires max cues for participation of sponge bath due to attention. Pt unable to reach face due to UE fatigue, requires OT to complete face. Pt able to complete janet hygiene, though requires assist with all other tasks. ) Upper Body Dressing (QC): 7 (denies changing gown upon multiple attempts) Lower Body Dressing (QC): 3 (Pt completes pant donning with min A) On/Off Footwear (QC): 2 (max A this date.) Toileting Hygiene (QC): 2 (Max A bottom hygiene in stance. Pt unable to m aintain balance to complete bottom hygiene. Pt able to cleanse janet area.) Toilet Transfer (QC): 3 (min A due to sequencing/ problem solving. ) Assessment/Plan Assessment and Plan Assess & Plan/Chief Complaint Assessment: Myopathy Abdominal wound requiring wound vac COPD Weight loss HTN HLP Elevated lactic acid from dehydration Chronic pain Plan: IRF protocol Dr Anthony to manage wound vac TPN Increase PO nutrition 11/27/19: Discontinue IV fluids Maintain TPN Monitor hemoglobin Await iron level 11/28/19: Patient has difficulty getting ready to participate in therapy Very frail and cachectic Guarded prognosis 11/29/19: Calorie count Appreciate Dr. Anthony evaluate patient for a feeding tube Eating snacks and candy Bowels moved 2 days ago Prognosis guarded 11/30/19: Monitor aggressive behavior Monitor closely Prognosis poor 12/01/19: Confusion noted Agitation and aggressive behaviors TPN maintained 12/02/19: Maintain TPN Continue calorie count Wound care per Dr. Anthony 12/03/19: Large bowel movement today much improved Monitor Sacral ulcer Monitor incontinence 12/04/19: Disposition per team conference Cognitive deficit especially sundowning is an issue Very difficult behaviors 12/05/19: Recommend psychiatric treatment Refusing therapy Continue pain medication Discontinue TPN 12/06/19: Increase po nutrition BMI 16 Patient really a hospice candidate (1) Myopathy (2) Weight loss (3) Agitation (4) Lactic acidosis (5) Delirium (6) Rheumatoid arthritis Status: Chronic (7) COPD (chronic obstructive pulmonary disease) Status: Chronic (8) Dysphagia (9) Gastroparesis Status: Acute (10) Colitis Status: Acute (11) Nausea & vomiting Status: Acute ANTONIO BERNSTEIN DO Dec 06, 2019 12:48
--- NOTE | 2019-12-06 13:10 | NUR ---
Discharge planning The following facilities were contacted regarding admission to senior behavioral health unit: [facility]-no beds available [place], [place]-unit closed [facility] in [place]-no beds available [facility] in [place] and [place]-no PT, OT or KILNMAN available [facility] in [place]-no beds available [facility]-no geriatric unit available [facility]-no PT, OT or KILNMAN available [facility] in [place], [place]-no beds available [facility]-unable to reach a risk control field representative for assistance ARU team and Dr. Hull notified.
--- NOTE | 2019-12-06 14:23 | NUR ---
"CALORIE COUNT Est kcal needs: 1800 kcal | 30 kcal/kg Est Pro needs: 72 g Pro | 1.2 g Pro/kg Note pt currently on TPN, providing 1670 kcal (28 kcal/kg); 80 g Pro (1.3 g Pro/kg). This currently provides sufficient kcal (93%) and protein (111%) to meet pt's nutritional needs 11/28: 478 kcal (27% of est needs) | 14 g Pro (19% of est needs) 11/29: 358 kcal (20% of est needs) | 4 g Pro (1% of est needs) 11/30: 514 kcal (29% of est needs) | 11 g Pro (15% of est needs) 12/01: 343 kcal (19% of est needs) | 11 g Pro (15% of est needs) | Note: Pt refused B and L trays, per chart review. 12/02: 164 kcal (9% of est needs) | 5 g Pro (7% of est needs) 12/03: 1111 kcal (61% of est needs) | 33 g Pro (46% of est needs) 12/04: 435 kcal (24% of est needs) | 24 g Pro (33% of est needs) Would recommend continuation of TPN to provide nutritional needs for pt. Would recommend continuation of nutrition supplementation to improve kcal intake. Encouraged pt to eat when able. Will continue to follow and reassess as pt needs, intake, and status change. Flaco Dave, MS, RD, LD [phone] (cell)"
--- NOTE | 2019-12-06 14:39 | Occupational Ther Daily Note ---
OT Current Status-Daily Note Subjective Pt seen in bed. Lunch tray at bedside. Pt sleeping. Per physician assistant psychiatry, has been asleep ~1 hr. Pt is attempted to rise for group/ lunch, requires max tactile/ vc for arousing. Pt is encouraged to participate in group. Pt nods in agreement to therapy. Mental Status/Objective Patient Orientation: Person ADL-Treatment Therapy Code Descriptions/Definitions Functional [place] Measure: 0=Not Assessed/NA 4=Minimal Assistance 1=Total Assistance 5=Supervision or Setup 2=Maximal Assistance 6=Modified [place] 3=Moderate Assistance 7=Complete IndependenceSCALE: Activities may be completed with or without assistive devices. 6-Yuhpgxumcn-hywczia completes the activity by him/herself with no assistance from a helper. 5-Set-up or Clean-up Assistance-helper sets up or cleans up; patient completes a ctivity. [place] assists only prior to or following the activity. 4-Supervision or Touching Assistance-helper provides verbal cues and/or touching/steadying and/or contact guard assistance as patient completes activity. Assistance may be provided throughout the activity or intermittently. 3-Partial/Moderate Assistance-helper does LESS THAN HALF the effort. [place] lifts, holds or supports trunk or limbs, but provides less than half the effort. 2-Substantial/Maximal Assistance-helper does MORE THAN HALF the effort. [place] lifts or holds trunk or limbs and provides more than half the effort. 5-Tryzbrjer-pphvio does ALL the effort. Patient does none of the effort to complete the activity. Or, the assistance of 2 or more helpers is required for the patient to complete the activity. If activity was not attempted, code reason: 7-Patient Refused. 9-Not Applicable-not attempted and the patient did not perform the activity before the current illness, exacerbation or injury. 10-Not Attempted due to Environmental Limitations-(lack of equipment, weather restraints, etc.). 88-Not Attempted due to Medical Conditions or Safety Concerns. Other Treatment Pt completes bed mob to EOB with max encouragement and min A. pt sits upright and yanks at briefs. Pt states need for urination. Urinal handed to pt. pt is assisted in brief doffing. Pt becomes agitated, states, "Get off of me." Pt requires assist to place urinal. Post placement, pt holds it there without urination for ~3 min. Pt requires max encouragement to allow OT to take urinal and change briefs due to being soiled with urine. Pt lays back in bed/ feet on floor. Pt begins rolling fingers around brief, then belt, then attempts threading belt through brief. Pt not able to be redirected. Agitated and increasingly more aggressive verbals, such as: "Would you like your arm broken? I'd like for you to get the F out of here." Pt's comes in, pt continues to roll brief in between fingers, is not redirected though attempts completed. leaves, pt continues to lay supine with legs suspended over bed. is asked to accompany for possible motivation (after 30 min of encouragement/ non- billed time due to unfunctional activity due to cognition/ behaviors of pt). Pt continues to not make eye contact, not respond verbally to questions, and roll brief in between fingers. states this is typical behavior of pt and means that pt, "Is worn out." -- Pt requires max encouragement to get back to bed with TD, briefs doffed, cleaned, and briefs donned with TD with Ax2. Pt left in bed, all rails up, call light in reach, physician assistant psychiatry and in room. Education OT Patient Education: Correct positioning, Purpose of tx/functional activities, Safety issues Teaching Recipient: Patient Teaching Methods: Demonstration, Discussion Response to Teaching: Unable to Return Demonstration, Unable to Comprehend, Reinforcement Needed OT Short Term Goals Short Term Goals Time Frame: Dec 10, 2019 Eatin Oral hygiene: 3 Toileting hygiene: 2 Shower/bathe self: 2 Upper body dressin Lower body dressin Putting on/taking off footwear: 3 OT Longterm Goals Php Programmer Goals Time Frame: Dec 24, 2019 Eating (QC): 4 Oral Hygiene (QC): 4 Toileting Hygiene (QC): 3 Shower/Bathe Self (QC): 3 Upper Body Dressing (QC): 4 Lower Body Dressing (QC): 4 On/Off Footwear (QC): 4 Additional Goals: 1-Demonstrate ADL Tasks, 2-Verbalize Understanding, 3- ImproveStrength/[place] 1=Demonstrate adherence to instructed precautions during ADL tasks. 2=Patient will verbalize/demonstrate understanding of assistive devices/modifications for ADL. 3=Patient will improve strength/tolerance for activity to enable patient to perform ADL's. OT Education/Plan Problem List/Assessment Assessment: Decreased Activ Tolerance, Decreased Safety Aware, Decreased UE Strength, Dependent Transfers, Impaired Bed Mobility, Impaired Cognition, Impaired Funct Balance, Impaired I ADL's, Impaired Self-Care Skills Discharge Recommendations Plan/Recommendations: Continue POC Therapy Discharge Recommendati: 24 Hour Supervision Treatment Plan/Plan of Care Treatment,Training & Education: Yes Patient would benefit from OT for education, treatment and training to promote independence in ADL's, mobility, safety and/or upper extremity function for ADL's. Plan of Care: ADL Retraining, Caregiver Training, Functional Mobility, Group Exercise/Act as Ind, UE Funct Exercise/Act, UE Neuromus Re-Ed/Coord Treatment Duration: Dec 24, 2019 Frequency: At least 5 of 7 days/Wk (IRF) Estimated Hrs Per Day: 1.5 hours per day Agreement: Yes Rehab Potential: Guarded Time/GCodes Start Time: 12:15 Stop Time: 13:00 Total Time Billed (hr/min): 15 Billed Treatment Time 1, FA (15) non-billed time from [id number] due to un-functional activity due to cognition/ behaviors of pt. MARIA GUADALUPE FARRELL OTR Dec 06, 2019 14:39
--- NOTE | 2019-12-06 15:04 | Speech Therapy Daily Note ---
Speech Daily Progress Note Subjective Date Seen by Provider: Dec 06, 2019 Time Seen by Provider: 00:30 Patient was resting in his bed, appeared to be in a good humor this afternoon. Objective Patient completed a series of memory with matching cards at 70% with moderate cues. Assessment Assessment Current Status: Fair Progress Treatment Plan Continue Plan of Care Speech Short Term Goals Short Term Goals Short Term Goals 1) Patient will complete speech tasks related to his wants/needs with 75% or greater given minimal cues. 2) Patient will complete memory tasks related to his wants/needs with 75% or greater given minimal cues. 3) Patient will complete problem solving tasks related to his wants/needs with 75% or greater given minimal cues. 4) Patient will complete safety awareness tasks related to his wants/needs with 75% or greater given minimal cues. 5) Patient will tolerate least restrictive diet level without s/s of aspiration at 80% or greater intake. 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 Speech Corporate Communications Associate Goals Corporate Communications Associate Goals Patient will improve cognitive-communication necessary for safety and daily li ving tasks with minimal assist. Patient will maintain adequate nutrition/hydration with oral/TPN intake. Speech-Plan Patient/Family Goals Patient/Family Goals: Patient plans on returning to his home where he lives with his . Treatment Plan Speech Therapy Treatment Plan: Continue Plan of Care Treatment Duration: Nov 27, 2019 Frequency: 4 times per week (Patient will receive 4-5x ST each week) Estimated Hrs Per Day: Other Rehab Potential: Guarded Barriers to Learning: Patient's behaviors, age, cognitive deficits Pt/Family Agrees to Plan: Yes Safety Risks/Education Teaching Recipient: Patient Teaching Methods: Demonstration, Discussion Response to Teaching: Verbalize Understanding, Return Demonstration, Reinforcement Needed Education Topics Provided: Continued safety within his room and safe oral intake Time Speech Therapy Time In: 15:00 Speech Therapy Time Out: 15:30 Total Billed Time: 30 Billed Treatment Time 1, LUDMILA, JAE Amaya Dec 06, 2019 15:04
[2019-12-06 16:00] VITALS: BP 130/74
--- NOTE | 2019-12-06 17:32 | NUR ---
CM/SS CONCURRENT DOCUMENTATION This entry is a condensed version of the activity over two days. Regarding the Patient Care Conference Summary, spouse Naya read the document, her questions were answered to her satisfaction by advertising writer and Air Traffic Control Operator/Carmita. She stated she did not agree to sign it at this time, documented, charted. A behavioral health inpatient placement was initiated yesterday, see EMR for patient cognitive and behavioral changes. The initial referral was within our immediate provider network, [facility]. Referral completed, unable to accept patient until likely first of next week, but option remains open and referral remains active. Air Traffic Control Operator contacted 9 other facilities as far as [facility], and . None were able to accept referral or admit due to the reasons noted (see her notes). Facilities either did not have beds available or, most often, are either unable to accept geriatric age patients and/or do not accept patients who are not independent for ambulation and all ADL's. Patient sleeping soundly, updated spouse/DPOA fully about all exploration completed and tentative acceptance first of week at [facility]. Spouse continues to be proactive and make independent phone calls to units which have already been approached. Explained the criteria of each facility which could eliminate the referral option immediately. Explained that bed availability was fluid 24/10 and that the facility team made the decision about whether to accept a patient or not. An open bed and a referral did not equal an admission. Followup Monday.
[2019-12-06] MEDS ORDERED: WATER (STERILE) FOR INJECTION 10 ML ONE (18:03)
[2019-12-06] MEDS: ZIPRASIDONE 20 MG INJ (GEODON) VIAL IM PRN (18:13)
--- NOTE | 2019-12-06 19:13 | NUR ---
bedside report received from SABIHA MARTINEZ, assume care of pt
--- NOTE | 2019-12-06 19:29 | NUR ---
STARTED GETTING AGITATED AROUND 1800. CONFUSED AND CLIMBING OUT OF BED. GEODON GIVEN AT 1813. HALDOL WAS DRAWN UP BUT NOT GIVEN (NOT NEEDED). HALDOL WASTED WITH MICHELLE LEDESMA.
--- NOTE | 2019-12-06 21:08 | NUR ---
pt had medium liq brown stool in his brief, cleaned & changed, pt has sitter due to pt trying to get up out of bed
[2019-12-06] MEDS: MELATONIN 10 MG TABLET PO SCH (21:10)
[2019-12-06] MEDS: OLANZapine 5 MG ODT (ZyPREXA ZYDIS) PO SCH (21:10)
--- NOTE | 2019-12-06 21:11 | NUR ---
miralax & Senokot held due to loose stools given Colace. to took all meds crushed in pudding without difficulty, c/o abd hurts Lortab 5 1 crushed in pudding for pain level 5/10 on flacc scale, abd dressing changed wet to dry gz abd then medipore tape, tolerated well
--- NOTE | 2019-12-06 22:00 | NUR ---
resting quietly in bed, pain level 0/10 on flacc scale, sitter at bedside
[2019-12-07] MEDS ORDERED: WATER (STERILE) FOR INJECTION 10 ML ONE ×2 (04:18→04:19)
[2019-12-07] MEDS: ZIPRASIDONE 20 MG INJ (GEODON) VIAL IM PRN ×2 (04:31→19:16)
--- NOTE | 2019-12-07 04:31 | NUR ---
pt trying to get out of bed, becoming agitated, Geodon 10mg im given in lt dorsal gluteal area
[2019-12-07 05:43] VITALS: BP 145/78
--- NOTE | 2019-12-07 06:00 | NUR ---
pt sleeping, scheduled Lortab held
[2019-12-07] MEDS: HYDROcodone/APAP 5 MG/325 MG (LORTAB) TAB PO SCH ×3 (06:55→21:06)
[2019-12-07] MEDS: CYANOCOBALAMIN 1,000 MCG (VITAMIN B-12) TABLET PO SCH (06:57)
--- NOTE | 2019-12-07 09:30 | NUR ---
HAS BEEN SLEEPING. AWAKENED NOW TO CHANGE DEPENDS. TAKES MEDS WELL WHEN CRUSHED AND PUT IN PUDDING. WHEN PILL GIVEN TO PATIENT WHOLE, HE TRIES TO THROW IT AWAY.
[2019-12-07] MEDS: MEGESTROL 40 MG (MEGACE) TAB PO SCH ×2 (09:48→21:05)
[2019-12-07] MEDS: FOLIC ACID 1 MG TAB PO SCH (09:48)
[2019-12-07] MEDS: LACTOBACILLUS ACIDOPHILUS (PROBIOTIC) CAPSULE PO SCH ×2 (09:49→21:06)
[2019-12-07] MEDS: DOCUSATE SODIUM 100 MG (COLACE) CAP PO SCH ×2 (09:49→21:05)
[2019-12-07] MEDS: FERROUS SULF 325 MG (IRON) TAB PO SCH (09:49)
[2019-12-07] MEDS: QUEtiapine 25 MG (SEROquel) TAB IMMEDIATE RELEASE PO SCH ×2 (09:49→17:41)
[2019-12-07] MEDS: FAMOTIDINE 20 MG (PEPCID) TABLET PO SCH ×2 (09:50→21:07)
[2019-12-07] MEDS: SENNA W/DOCUSATE (SENOKOT S) TABLET PO SCH ×2 (09:50→21:05)
[2019-12-07] MEDS: polyethylene glycoL POWDER 17 GM (MIRALAX) PACK PO SCH ×2 (09:50→21:06)
--- NOTE | 2019-12-07 11:55 | Physical Therapy Daily Note ---
PT Daily Note-Current Subjective Pt refused all attempts at treatment. Pt visited x 2 this morning. Pt yelling for "Colette, come in" upon last visit. Pt states "I am not going anywhere unless Colette comes in here!" Transfers SCALE: Activities may be completed with or without assistive devices. 4-Mtrtrtybsa-kektihu completes the activity by him/herself with no assistance from a helper. 5-Set-up or Clean-up Assistance-helper sets up or cleans up; patient completes activity. [place] assists only prior to or following the activity. 4-Supervision or Touching Assistance-helper provides verbal cues and/or touching/steadying and/or contact guard assistance as patient completes activity. Assistance may be provided throughout the activity or intermittently. 3-Partial/Moderate Assistance-helper does LESS THAN HALF the effort. [place] lifts, holds or supports trunk or limbs, but provides less than half the effort. 2-Substantial/Maximal Assistance-helper does MORE THAN HALF the effort. [place] lifts or holds trunk or limbs and provides more than half the effort. 6-Ttvtpprbj-jconlf does ALL the effort. Patient does none of the effort to complete the activity. Or, the assistance of 2 or more helpers is required for the patient to complete the activity. If activity was not attempted, code reason: 7-Patient Refused. 9-Not Applicable-not attempted and the patient did not perform the activity before the current illness, exacerbation or injury. 10-Not Attempted due to Environmental Limitations-(lack of equipment, weather restraints, etc.). 88-Not Attempted due to Medical Conditions or Safety Concerns. Weight Bearing Full Weight Bearing Full Weight Bearing Assessment Current Status: Refused Treatment Pt somewhat agitated, threw piece of paper. Pt easily irritated, did not press pt to avoid agitation. PT Short Term Goals Short Term Goals Time Frame: Dec 03, 2019 Roll Left & Right: 3 Sit to lyin Lying to sitting on side of be: 3 Sit to stand: 3 Chair/qtb-ma-knule transfer: 3 Walk 10 feet: 3 PT Residential Goals Residential Goals PT Residential Goals Time Frame: Dec 17, 2019 Roll Left & Right (QC): 3 ([place]) Sit to Lying (QC): 3 ([place]) Lying-Sitting on Side/Bed(QC): 3 ([place]) Sit to Stand (QC): 3 ([place]) Chair/Rbi-wr-Ahmqf Xfer(QC): 3 ([place]) Toilet Transfer (QC): 3 ([place]) Car Transfer (QC): 3 ([place]) Does the Patient Walk: No and Walking Goal IS indicated Walk 10 feet (QC): 3 ([place]) Walk 50ft with 2 Turns (QC): 3 ([place]) Walk 150 ft (QC): 88 Walking 10ft on Uneven Surface: 88 1 Step (curb) (QC): 88 4 Steps (QC): 88 12 Steps (QC): 88 Picking up an Object (QC): 88 Wheel 50 feet with 2 turns (QC: 3 ([place]) Wheel 150 feet: 3 ([place]) PT Plan Treatment/Plan Treatment Plan: Continue Plan of Care Treatment Plan: Bed Mobility, Education, Functional Activity [place], Functional Strength, Group Therapy, Gait, Safety, Therapeutic Exercise, Transfers Treatment Duration: Dec 17, 2019 Frequency: At least 5 of 7 days/Wk (IRF) Estimated Hrs Per Day: 1.5 hours per day Patient and/or Family Agrees t: Yes Time/GCodes Time In: 1140 Time Out: 1145 Total Billed Treatment Time: 0 Total Billed Treatment 1, no treatment rendered ROBERTO ROCKWELL CPTA Dec 07, 2019 11:55
--- NOTE | 2019-12-07 12:59 | PM&R Progress Note ---
Subjective HPI/CC On Admission Date Seen by Provider: Dec 07, 2019 Time Seen by Provider: 12:15 Subjective/Events-last exam 12/07/19: Confusion persists Antipsychotics are subduing him a bit to decrease agitation BMI is extremely low Needs psych treatment to control behaviors and then chcf with hospice likely 12/06/19: Increased Seroquel seems to be working well Awaiting SBH at first of week Cachexia noted, BMI 16 12/05/19: Pt having significant behavior disturbances due to dementia and delirium Geodon of 10mg injection is working pretty well Bowels are moving TPN has been shut off to help build an appetite since he eats about 1000 calories a day on junk food Lortab given 3x a day Labs look really good, no evidence of any sepsis causing the delirium 12/04/19: Pt grabbed Stephanie, the RNs hair last night Haldol was given at 8:00 Ativan seemed to make it worse, so that was discontinued Telesitter maintained Overall unsure what the next step will be in his care, but he has such significant cognitive deficits that it is going to be hard to evaluate if he can improve at all from this point on 12/03/19: Pain is on and off Had a large BM today Sacral ulcer will be managed Incontinence most of the time Doesn't really participate in therapy 12/02/19: Pt actually doing pretty well today Dementia and delirium and agitation seems to be improved this morning TPN is maintained but overall his calorie count only includes snacks and orange slice candy Denies any significant pain Very difficult to have reasonable recovery 12/01/19: Aggressive with aide today Patient becomes paranoid after 700pm c/w own was at bedside last night when it occurred 11/30/19: Aggressive and paranoid today Struck out at aide Snacks on candy most of day TPN maintained No BM for 3 days refuses laxatives which are liquid 11/29/19: Pt remains very thin Will see if Dr. Anthony can put a feeding tube in but due to the abdominal wound myriam ray that won't be an option Calorie count will be initiated Eating snacks and candy Last BM was two days ago 11/28/19: Pt very difficult to motivate He exposed himself during group therapy yesterday Colette his having difficulty coping with his very declined state Refuses to eat Maintained on TPN B12 was added after talked to Dr. Anthony in depth Pt has a stage 2 ulcer on his buttock Scheduling Hydrocodone to help his pain Abdominal wound managed by Dr. Anthony 11/27/19: Patient doing better and more alert Team conference thought needs behavioral health evaluation No pain reported now since Hydrocodone for hip pain Checked labs TPN ordered Lactic acid elevated was from dehydration and now resolved DC IVF 1/2 NS Conferred with RN Reviewed therapy notes Checked meds and labs Review of Systems Neurological: Confusion Objective Exam Vital Signs Vital Signs Date Time Temp Pulse Resp B/P (MAP) Pulse Ox O2 Delivery O2 Flow Rate FiO2 12/08/19 06:07 37.2 85 18 144/83 (103) 97 Room Air Capillary Refill : Less Than 3 Seconds General Appearance: No Apparent Distress HEENT: PERRL/EOMI Neck: Full Range of Motion Respiratory: Chest Non Tender, Normal Breath Sounds, Decreased Breath Sounds Cardiovascular: Regular Rate, Rhythm Gastrointestinal: Normal Bowel Sounds, No Organomegaly, No Pulsatile Mass, Soft, Other (wound vac) Back: Normal Inspection, No CVA Tenderness, No Vertebral Tenderness Extremity: Normal Capillary Refill Neurologic/Psychiatric: Disoriented Skin: Normal Color Lymphatic: No Adenopathy Results/Procedures Lab Patient resulted labs reviewed. FIM Transfers Therapy Code Descriptions/Definitions Functional [place] Measure: 0=Not Assessed/NA 4=Minimal Assistance 1=Total Assistance 5=Supervision or Setup 2=Maximal Assistance 6=Modified [place] 3=Moderate Assistance 7=Complete IndependenceSCALE: Activities may be completed with or without assistive devices. 3-Tqagexvqbi-gagngir completes the activity by him/herself with no assistance from a helper. 5-Set-up or Clean-up Assistance-helper sets up or cleans up; patient completes activity. [place] assists only prior to or following the activity. 4-Supervision or Touching Assistance-helper provides verbal cues and/or touching/steadying and/or contact guard assistance as patient completes activity. Assistance may be provided throughout the activity or intermittently. 3-Partial/Moderate Assistance-helper does LESS THAN HALF the effort. [place] lifts, holds or supports trunk or limbs, but provides less than half the effort. 2-Substantial/Maximal Assistance-helper does MORE THAN HALF the effort. [place] lifts or holds trunk or limbs and provides more than half the effort. 3-Utajaulhl-itemwb does ALL the effort. Patient does none of the effort to complete the activity. Or, the assistance of 2 or more helpers is required for the patient to complete the activity. If activity was not attempted, code reason: 7-Patient Refused. 9-Not Applicable-not attempted and the patient did not perform the activity before the current illness, exacerbation or injury. 10-Not Attempted due to Environmental Limitations-(lack of equipment, weather restraints, etc.). 88-Not Attempted due to Medical Conditions or Safety Concerns. Roll Left to Right (QC): 4 Sit to Lying (QC): 2 Sit to Stand (QC): 4 (CGA with skilled cues for seqeuncing and task initiation) Chair/Jaz-fr-Zachd Xfer(QC): 3 (min assist for balance and to manage walker) Car Transfer (QC): 1 Gait Training Does the Patient Walk?: Yes Distance: 200 ft x 4 reps Walk 10 feet (QC): 3 Walk 50 ft with 2 Turns(QC): 3 Walk 150 ft (QC): 3 Walking 10ft/uneven surface-QC: 88 Gait Persons Needed: 1 Gait Assistive Device: FWW Wheelchair Training Does the Pt Use a Wheelchair?: No Wheel 50 ft with 2 turns (QC): 1 Wheel 150 ft (QC): 1 Type of Wheelchair: Manual Stair Training 1 Step (curb) (QC): 88 4 Steps (QC): 88 12 Steps (QC): 88 Balance Picking up an Object (QC): 88 (decreased safety awareness increases risk of fall or pt unable to respond to balance pertebation) ADL-Treatment Eating (QC): 3 (min A. Pt requires assist holding cup and bringing to mouth. Pt requires straw due to decreased strength/ AROM on this date. Pt able to pick items from fork and bring to mouth.) Oral Hygiene (QC): 7 (denies hygiene, though able to take dentures out of mouth with assist due to discomfort) Bathing Location: L Arm, R Arm, L Upper Leg, R Upper Leg, L Lower Leg (including foot), R Lower Leg (including foot), Chest, Abdomen, Perineal Area Shower/Bathe Self (QC): 2 (Pt requires max cues for participation of sponge bath due to attention. Pt unable to reach face due to UE fatigue, requires OT to complete face. Pt able to complete janet hygiene, though requires assist with all other tasks. ) Upper Body Dressing (QC): 7 (denies changing gown upon multiple attempts) Lower Body Dressing (QC): 3 (Pt completes pant donning with min A) On/Off Footwear (QC): 2 (max A this date.) Toileting Hygiene (QC): 2 (Max A bottom hygiene in stance. Pt unable to maintain balance to complete bottom hygiene. Pt able to cleanse janet area.) Toilet Transfer (QC): 3 (min A due to sequencing/ problem solving. ) Assessment/Plan Assessment and Plan Assess & Plan/Chief Complaint Assessment: Myopathy Abdominal wound requiring wound vac COPD Weight loss HTN HLP Elevated lactic acid from dehydration Chronic pain Plan: IRF protocol Dr Anthony to manage wound vac TPN Increase PO nutrition 11/27/19: Discontinue IV fluids Maintain TPN Monitor hemoglobin Await iron level 11/28/19: Patient has difficulty getting ready to participate in therapy Very frail and cachectic Guarded prognosis 11/29/19: Calorie count Appreciate Dr. Anthony evaluate patient for a feeding tube Eating snacks and candy Bowels moved 2 days ago Prognosis guarded 11/30/19: Monitor aggressive behavior Monitor closely Prognosis poor 12/01/19: Confusion noted Agitation and aggressive behaviors TPN maintained 12/02/19: Maintain TPN Continue calorie count Wound care per Dr. Anthony 12/03/19: Large bowel movement today much improved Monitor Sacral ulcer Monitor incontinence 12/04/19: Disposition per team conference Cognitive deficit especially sundowning is an issue Very difficult behaviors 12/05/19: Recommend psychiatric treatment Refusing therapy Continue pain medication Discontinue TPN 12/06/19: Increase po nutrition BMI 16 Patient really a hospice candidate 12/07/19: Encourage PO nutrition Monitor agitation (1) Myopathy (2) Weight loss (3) Agitation (4) Lactic acidosis (5) Delirium (6) Rheumatoid arthritis Status: Chronic (7) COPD (chronic obstructive pulmonary disease) Status: Chronic (8) Dysphagia (9) Gastroparesis Status: Acute (10) Colitis Status: Acute (11) Nausea & vomiting Status: Acute ANTONIO BERNSTEIN DO Dec 07, 2019 12:59
--- NOTE | 2019-12-07 13:00 | NUR ---
DR. WISE NOTIFIED OF GREENISH-YELLOW PURULENT DRAINAGE FROM ABDOMINAL WOUND. WOUND ITSELF RED AND HEALING WELL. NO NEW ORDERS. CONTINUE W-D NS DRESSING CHANGES BID.
[2019-12-07] MEDS: NS IV 1000 ML 1,000 ML IV SCH (13:11)
[2019-12-07 17:43] VITALS: BP 144/80
--- NOTE | 2019-12-07 19:00 | NUR ---
HAS DONE VERY WELL TODAY, UNTIL LEFT THEN BECAME VERY AGITATED AND HITTING AT NURSES. MEDICATED WITH VICKY.
--- NOTE | 2019-12-07 19:28 | NUR ---
bedside report received from COSTA MARTINEZ, assume care of pt
--- NOTE | 2019-12-07 19:45 | NUR ---
pt still agitated but after talking to pt calmed alittle at least enough to reason with pt, sitter at bedside
[2019-12-07] MEDS: MELATONIN 10 MG TABLET PO SCH (21:05)
[2019-12-07] MEDS: OLANZapine 5 MG ODT (ZyPREXA ZYDIS) PO SCH (21:05)
--- NOTE | 2019-12-07 21:06 | NUR ---
finally took meds with much reasoning with pt but refused acidophilus states I do not need it, took Lortab 5 1 tab states hurt everywhere, pain level 5/10 on flacc scale
--- NOTE | 2019-12-07 22:00 | NUR ---
pain level 2/10 on flacc scale, awake but calmer now
[2019-12-08] MEDS: NS IV 1000 ML 1,000 ML IV SCH (05:16)
[2019-12-08 06:07] VITALS: BP 144/83
[2019-12-08] MEDS: CYANOCOBALAMIN 1,000 MCG (VITAMIN B-12) TABLET PO SCH (06:28)
[2019-12-08] MEDS: HYDROcodone/APAP 5 MG/325 MG (LORTAB) TAB PO SCH ×2 (06:29→13:23)
--- NOTE | 2019-12-08 06:36 | PM&R Progress Note ---
Subjective Subjective/Events-last exam 12/07/19: Confusion persists Antipsychotics are subduing him a bit to decrease agitation BMI is extremely low Needs psych treatment to control behaviors and then long term with hospice likely 12/06/19: Increased Seroquel seems to be working well Awaiting SBH at first of week Cachexia noted, BMI 16 12/05/19: Pt having significant behavior disturbances due to dementia and delirium Geodon of 10mg injection is working pretty well Bowels are moving TPN has been shut off to help build an appetite since he eats about 1000 calories a day on junk food Lortab given 3x a day Labs look really good, no evidence of any sepsis causing the delirium 12/04/19: Pt grabbed Stephanie, the RNs hair last night Haldol was given at 8:00 Ativan seemed to make it worse, so that was discontinued Telesitter maintained Overall unsure what the next step will be in his care, but he has such significant cognitive deficits that it is going to be hard to evaluate if he can improve at all from this point on 12/03/19: Pain is on and off Had a large BM today Sacral ulcer will be managed Incontinence most of the time Doesn't really participate in therapy 12/02/19: Pt actually doing pretty well today Dementia and delirium and agitation seems to be improved this morning TPN is maintained but overall his calorie count only includes snacks and orange slice candy Denies any significant pain Very difficult to have reasonable recovery 12/01/19: Aggressive with aide today Patient becomes paranoid after 700pm c/w was at bedside last night when it occurred 11/30/19: Aggressive and paranoid today Struck out at aide Snacks on candy most of day TPN maintained No BM for 3 days refuses laxatives which are liquid 11/29/19: Pt remains very thin Will see if Dr. Anthony can put a feeding tube in but due to the abdominal wound likely that won't be an option Calorie count will be initiated Eating snacks and candy Last BM was two days ago 11/28/19: Pt very difficult to motivate He exposed himself during group therapy yesterday Colette his having difficulty coping with his very declined state Refuses to eat Maintained on TPN B12 was added after talked to Dr. Anthony in depth Pt has a stage 2 ulcer on his buttock Scheduling Hydrocodone to help his pain Abdominal wound managed by Dr. Anthony 11/27/19: Patient doing better and more alert Team conference thought needs behavioral health evaluation No pain reported now since Hydrocodone for hip pain Checked labs TPN ordered Lactic acid elevated was from dehydration and now resolved DC IVF 1/2 NS Conferred with RN Reviewed therapy notes Checked meds and labs Objective Exam Vital Signs Vital Signs Date Time Temp Pulse Resp B/P (MAP) Pulse Ox O2 Delivery O2 Flow Rate FiO2 12/08/19 09:00 Room Air 12/08/19 06:07 37.2 85 18 144/83 (103) 97 Capillary Refill : Less Than 3 Seconds General Appearance: No Apparent Distress HEENT: PERRL/EOMI Neck: Full Range of Motion Respiratory: Chest Non Tender, Normal Breath Sounds, Decreased Breath Sounds Cardiovascular: Regular Rate, Rhythm Gastrointestinal: Normal Bowel Sounds, No Organomegaly, No Pulsatile Mass, Soft, Other (wound vac) Back: Normal Inspection, No CVA Tenderness, No Vertebral Tenderness Extremity: Normal Capillary Refill Neurologic/Psychiatric: Disoriented Skin: Normal Color Lymphatic: No Adenopathy Results/Procedures Lab Patient resulted labs reviewed. FIM Transfers Therapy Code Descriptions/Definitions Functional [place] Measure: 0=Not Assessed/NA 4=Minimal Assistance 1=Total Assistance 5=Supervision or Setup 2=Maximal Assistance 6=Modified [place] 3=Moderate Assistance 7=Complete IndependenceSCALE: Activities may be completed with or without assistive devices. 3-Oalzjpucvr-oobcwmy completes the activity by him/herself with no assistance from a helper. 5-Set-up or Clean-up Assistance-helper sets up or cleans up; patient completes activity. [place] assists only prior to or following the activity. 4-Supervision or Touching Assistance-helper provides verbal cues and/or touching/steadying and/or contact guard assistance as patient completes activity. Assistance may be provided throughout the activity or intermittently. 3-Partial/Moderate Assistance-helper does LESS THAN HALF the effort. [place] lifts, holds or supports trunk or limbs, but provides less than half the effort. 2-Substantial/Maximal Assistance-helper does MORE THAN HALF the effort. [place] lifts or holds trunk or limbs and provides more than half the effort. 3-Wnpmuvktw-bclsge does ALL the effort. Patient does none of the effort to complete the activity. Or, the assistance of 2 or more helpers is required for the patient to complete the activity. If activity was not attempted, code reason: 7-Patient Refused. 9-Not Applicable-not attempted and the patient did not perform the activity before the current illness, exacerbation or injury. 10-Not Attempted due to Environmental Limitations-(lack of equipment, weather restraints, etc.). 88-Not Attempted due to Medical Conditions or Safety Concerns. Roll Left to Right (QC): 4 Sit to Lying (QC): 2 Sit to Stand (QC): 4 (CGA with skilled cues for seqeuncing and task initiation) Chair/Qtv-gh-Znmkt Xfer(QC): 3 (min assist for balance and to manage walker) Car Transfer (QC): 1 Gait Training Does the Patient Walk?: Yes Distance: 200 ft x 4 reps Walk 10 feet (QC): 3 Walk 50 ft with 2 Turns(QC): 3 Walk 150 ft (QC): 3 Walking 10ft/uneven surface-QC: 88 Gait Persons Needed: 1 Gait Assistive Device: FWW Wheelchair Training Does the Pt Use a Wheelchair?: No Wheel 50 ft with 2 turns (QC): 1 Wheel 150 ft (QC): 1 Type of Wheelchair: Manual Stair Training 1 Step (curb) (QC): 88 4 Steps (QC): 88 12 Steps (QC): 88 Balance Picking up an Object (QC): 88 (decreased safety awareness increases risk of fall or pt unable to respond to balance pertebation) ADL-Treatment Eating (QC): 3 (min A. Pt requires assist holding cup and bringing to mouth. Pt requires straw due to decreased strength/ AROM on this date. Pt able to pick items from fork and bring to mouth.) Oral Hygiene (QC): 7 (denies hygiene, though able to take dentures out of mouth with assist due to discomfort) Bathing Location: L Arm, R Arm, L Upper Leg, R Upper Leg, L Lower Leg (including foot), R Lower Leg (including foot), Chest, Abdomen, Perineal Area Shower/Bathe Self (QC): 2 (Pt requires max cues for participation of sponge bath due to attention. Pt unable to reach face due to UE fatigue, requires OT to complete face. Pt able to complete janet hygiene, though requires assist with all other tasks. ) Upper Body Dressing (QC): 7 (denies changing gown upon multiple attempts) Lower Body Dressing (QC): 3 (Pt completes pant donning with min A) On/Off Footwear (QC): 2 (max A this date.) Toileting Hygiene (QC): 2 (Max A bottom hygiene in stance. Pt unable to maintain balance to complete bottom hygiene. Pt able to cleanse janet area.) Toilet Transfer (QC): 3 (min A due to sequencing/ problem solving. ) Assessment/Plan Assessment and Plan Assess & Plan/Chief Complaint Assessment: Myopathy Abdominal wound requiring wound vac COPD Weight loss HTN HLP Elevated lactic acid from dehydration Chronic pain Plan: IRF protocol Dr Anthony to manage wound vac TPN Increase PO nutrition 11/27/19: Discontinue IV fluids Maintain TPN Monitor hemoglobin Await iron level 11/28/19: Patient has difficulty getting ready to participate in therapy Very frail and cachectic Guarded prognosis 11/29/19: Calorie count Appreciate Dr. Anthony evaluate patient for a feeding tube Eating snacks and candy Bowels moved 2 days ago Prognosis guarded 11/30/19: Monitor aggressive behavior Monitor closely Prognosis poor 12/01/19: Confusion noted Agitation and aggressive behaviors TPN maintained 12/02/19: Maintain TPN Continue calorie count Wound care per Dr. Anthoyn 12/03/19: Large bowel movement today much improved Monitor Sacral ulcer Monitor incontinence 12/04/19: Disposition per team conference Cognitive deficit especially sundowning is an issue Very difficult behaviors 12/05/19: Recommend psychiatric treatment Refusing therapy Continue pain medication Discontinue TPN 12/06/19: Increase po nutrition BMI 16 Patient really a hospice candidate 12/07/19: Encourage PO nutrition Monitor agitation (1) Myopathy (2) Weight loss (3) Agitation (4) Lactic acidosis (5) Delirium (6) Rheumatoid arthritis Status: Chronic (7) COPD (chronic obstructive pulmonary disease) Status: Chronic (8) Dysphagia (9) Gastroparesis Status: Acute (10) Colitis Status: Acute (11) Nausea & vomiting Status: Acute ANTONIO BERNSTEIN DO Dec 08, 2019 06:36
--- NOTE | 2019-12-08 09:30 | NUR ---
WOKE UP IN GOOD SPIRITS. EATING BREAKFAST SLOWLY DUE TO NO TEETH, BUT APPETITE DOES SEEM IMPROVED. TAKES MEDS WELL WHEN CRUSHED.
[2019-12-08] MEDS: FERROUS SULF 325 MG (IRON) TAB PO SCH (09:55)
[2019-12-08] MEDS: DOCUSATE SODIUM 100 MG (COLACE) CAP PO SCH ×2 (09:55→09:57)
[2019-12-08] MEDS: LACTOBACILLUS ACIDOPHILUS (PROBIOTIC) CAPSULE PO SCH (09:55)
[2019-12-08] MEDS: polyethylene glycoL POWDER 17 GM (MIRALAX) PACK PO SCH (09:56)
[2019-12-08] MEDS: FAMOTIDINE 20 MG (PEPCID) TABLET PO SCH (09:56)
[2019-12-08] MEDS: MEGESTROL 40 MG (MEGACE) TAB PO SCH (09:56)
[2019-12-08] MEDS: FOLIC ACID 1 MG TAB PO SCH (09:56)
[2019-12-08] MEDS: QUEtiapine 25 MG (SEROquel) TAB IMMEDIATE RELEASE PO SCH (09:56)
[2019-12-08] MEDS: SENNA W/DOCUSATE (SENOKOT S) TABLET PO SCH (09:56)
--- NOTE | 2019-12-08 12:30 | NUR ---
DR. BERNSTEIN HERE TO SEE PATIENT. INFORMED STILL HAVING SOME HEMATURIA. NO NEW ORDERS. PATIENT REMAINS CONFUSED, BUT COOPERATIVE WHEN IS HERE.
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
[2019-12-08] MEDS ORDERED: ZIPRASIDONE 20 MG INJ (GEODON) VIAL IM PRN (14:15)
--- NOTE | 2019-12-08 15:35 | NUR ---
DISCHARGED TO 4TH MEDICAL ROOM 404 PER WHEELCHAIR. BELONGINGS SENT. AT BEDSIDE. REPORT WAS GIVEN TO FELICE MARTINEZ. DISCHARGE INSTRUCTIONS SENT.
[2019-12-08 16:11] VITALS: BP 144/83
--- NOTE | 2019-12-09 15:31 | NUR ---
PATIENT'S LOST CELL PHONE WAS RETURNED TO [facility] FROM [facility]. TAKEN UPSTAIRS TO 4TH FLOOR AND GIVEN TO , GERONIMO.
--- NOTE | 2019-12-10 09:11 | Therapy Team Discharge Summary ---
Therapy Discharge Summary Discharge Recommendations Date of Discharge Dec 08, 2019 at 15:35 Physical Therapy This patient admitted to ARU post lengthy acute, swing bed and LTAC stay all complicated with medical issues and episodes of agitation. Prior to his acute hospital stay, his exact PLOF is unknown, but he was living at home with his . Upon admission to this unit, he was very groggy with decreased alertness and was generally dependent for all mobility. Treatment consisted of functional strength, balance, activity tolerance all to progress his bed mobility, transfers and gait. His cooperation waxed and waned throughout the course of care and often needed heavy encouragement to engage in therapy and at times, did not participate. At last visit, he was SB-CGA with bed mobility and transfers and min assist with gait. Formal reassessment of all quality codes was not completed due to unexpected discharge. Pt transferred from ARU to [facility] due to delerium. Will DC from PT at this time. Occupational Therapy Decreased Activ Tolerance, Decreased Safety Aware, Decreased UE Strength, Dependent Transfers, Impaired Bed Mobility, Impaired Cognition, Impaired Funct Balance, Impaired I ADL's, Impaired Self-Care Skills PT Penit[facility]iary Goals Seismometer Operator Goals PT Seismometer Operator Goals Time Frame: Dec 17, 2019 Roll Left to Right (QC): 3 ([place]) Sit to Lying (QC): 3 ([place]) Lying-Sitting on Side/Bed(QC): 3 ([place]) Sit to Stand (QC): 3 ([place]) Chair/Dnd-pw-[place] Xfer(QC): 3 ([place]) Car Transfer (QC): 3 ([place]) Does the Patient Walk: No and Walking Goal IS indicated Walk 10 feet (QC): 3 ([place]) Walk 10ft-Uneven Surface(QC): 88 Walk 50ft with 2 Turns (QC): 3 ([place]) Walk 150 ft (QC): 88 Wheel 50 feet with 2 turns (QC: 3 ([place]) 1 Step (curb) (QC): 88 4 Steps (QC): 88 12 Steps (QC): 88 Picking up an Object (QC): 88 Pt is grossly at a min to CGA level at discharge, meeting goals set at evaluation. OT Seismometer Operator Goals Seismometer Operator Goals Time Frame: Dec 24, 2019 Eating (QC): 4 Oral Hygiene (QC): 4 Shower/Bathe Self (QC): 3 Upper Body Dressing (QC): 4 Lower Body Dressing (QC): 4 On/Off Footwear (QC): 4 Toileting Hygiene (QC): 3 Toilet/Commode Transfer (QC): 3 ([place]) Additional Goals: 1-Demonstrate ADL Tasks, 2-Verbalize Understanding, 3- ImproveStrength/[place] 1=Demonstrate adherence to instructed precautions during ADL tasks. 2=Patient will verbalize/demonstrate understanding of assistive devices/modifications for ADL. 3=Patient will improve strength/tolerance for activity to enable patient to perform ADL's. Speech Seismometer Operator Goals Penitentiary Goals Patient will improve cognitive-communication necessary for safety and daily living tasks with minimal assist. Patient will maintain adequate nutrition/hydration with oral/TPN intake. FATOUMATA GUIDRY PT Dec 10, 2019 09:11
--- NOTE | 2019-12-10 11:07 | Therapy Team Discharge Summary ---
Therapy Discharge Summary Discharge Recommendations Date of Discharge Dec 08, 2019 at 15:35 Occupational Therapy Decreased Activ Tolerance, Decreased Safety Aware, Decreased UE Strength, Depe ndent Transfers, Impaired Bed Mobility, Impaired Cognition, Impaired Funct Balance, Impaired I ADL's, Impaired Self-Care Skills Speech-Language Pathology Patient was seen on the IRU by ST for cognitive therapy as well as dysphagia the rapy. Patient was difficult at times to engage in therapy. Patient became more delirious and was re-admitted to the acute floor. Patient was discharged from IRU on 12/08/2019. Patient was discharged from [facility] at that time as well. PT Triple Drum Operator Goals Triple Drum Operator Goals PT Triple Drum Operator Goals Time Frame: Dec 17, 2019 Roll Left to Right (QC): 3 (Marivel) Sit to Lying (QC): 3 (Marivel) Lying-Sitting on Side/Bed(QC): 3 (Marivel) Sit to Stand (QC): 3 (Marivel) Chair/Vhf-em-Egzre Xfer(QC): 3 (Marivel) Car Transfer (QC): 3 (Marivel) Does the Patient Walk: No and Walking Goal IS indicated Walk 10 feet (QC): 3 (Marivel) Walk 10ft-Uneven Surface(QC): 88 Walk 50ft with 2 Turns (QC): 3 (Marivel) Walk 150 ft (QC): 88 Wheel 50 feet with 2 turns (QC: 3 (Marivel) 1 Step (curb) (QC): 88 4 Steps (QC): 88 12 Steps (QC): 88 Picking up an Object (QC): 88 OT Penitentiary Goals Penitentiary Goals Time Frame: Dec 24, 2019 Eating (QC): 4 Oral Hygiene (QC): 4 Shower/Bathe Self (QC): 3 Upper Body Dressing (QC): 4 Lower Body Dressing (QC): 4 On/Off Footwear (QC): 4 Toileting Hygiene (QC): 3 Toilet/Commode Transfer (QC): 3 (Marivel) Additional Goals: 1-Demonstrate ADL Tasks, 2-Verbalize Understanding, 3- ImproveStrength/Wicho 1=Demonstrate adherence to instructed precautions during ADL tasks. 2=Patient will verbalize/demonstrate understanding of assistive devices/modifications for ADL. 3=Patient will improve strength/tolerance for activity to enable patient to perform ADL's. Speech Triple Drum Operator Goals Penitentiary Goals Patient will improve cognitive-communication necessary for safety and daily living tasks with minimal assist. Patient will maintain adequate nutrition/hydration with oral/TPN intake. JAE MCGUIRE Dec 10, 2019 11:07
--- NOTE | 2019-12-10 15:16 | Therapy Team Discharge Summary ---
Therapy Discharge Summary Discharge Recommendations Date of Discharge Dec 08, 2019 at 15:35 Occupational Therapy Pt admits with disuse myopathy; upon admission pt does not verbalize and has d ecreased functional activity, requiring max A for UB dressing, and all LB dressing/ footwear/ toileting/ showering with TD. Pt and OT work towards higher fx IND through ADL tasks, functional activities, and UE movements/ problem solving tasks. Pt limited by cognition, behaviors which were variable per tx/ time of day, pain, and motivation. Pt d/c's to 4th floor and d/c's with ADL QC's as follows: LB dressing 3, footwear/ toileting/ showering with max A. Pt d/c ARU OT at this time. Decreased Activ Tolerance, Decreased Safety Aware, Decreased UE Strength, Dependent Transfers, Impaired Bed Mobility, Impaired Cognition, Impaired Funct B alance, Impaired I ADL's, Impaired Self-Care Skills PT Vegetable Loader Goals Vegetable Loader Goals PT Longterm Goals Time Frame: Dec 17, 2019 Roll Left to Right (QC): 3 (Marivel) Sit to Lying (QC): 3 (Marivel) Lying-Sitting on Side/Bed(QC): 3 (Marivel) Sit to Stand (QC): 3 (Marivel) Chair/Six-oe-Russr Xfer(QC): 3 (Marivel) Car Transfer (QC): 3 (Marivel) Does the Patient Walk: No and Walking Goal IS indicated Walk 10 feet (QC): 3 (Marivel) Walk 10ft-Uneven Surface(QC): 88 Walk 50ft with 2 Turns (QC): 3 (Marivel) Walk 150 ft (QC): 88 Wheel 50 feet with 2 turns (QC: 3 (Marivel) 1 Step (curb) (QC): 88 4 Steps (QC): 88 12 Steps (QC): 88 Picking up an Object (QC): 88 OT Longterm Goals Vegetable Loader Goals Time Frame: Dec 24, 2019 Eating (QC): 4 Oral Hygiene (QC): 4 Shower/Bathe Self (QC): 3 Upper Body Dressing (QC): 4 Lower Body Dressing (QC): 4 On/Off Footwear (QC): 4 Toileting Hygiene (QC): 3 Toilet/Commode Transfer (QC): 3 (Marivel) Additional Goals: 1-Demonstrate ADL Tasks, 2-Verbalize Understanding, 3- ImproveStrength/Wicho 1=Demonstrate adherence to instructed precautions during ADL tasks. 2=Patient will verbalize/demonstrate understanding of assistive devices/modifications for ADL. 3=Patient will improve strength/tolerance for activity to enable patient to perform ADL's. Speech Vegetable Loader Goals Vegetable Loader Goals Patient will improve cognitive-communication necessary for safety and daily living tasks with minimal assist. Patient will maintain adequate nutrition/hydration with oral/TPN intake. MARIA GUADALUPE FARRELL OTR Dec 10, 2019 15:16
== END 2019-12-08 15:35 | disposition short-term general hospital (02) | DRG 92 ==
PROVIDERS: ADMIT Internal Medicine; ATTEND Internal Medicine
DX: G72.89 Other specified myopathies (principal); E87.2 Acidosis; F03.91 Unspecified dementia, unspecified severity, with behavioral disturbance; F05 Delirium due to known physiological condition; R64 Cachexia; Z68.1 Body mass index [BMI] 19.9 or less, adult; Z48.815 Encounter for surgical aftercare following surgery on the digestive system; J44.9 Chronic obstructive pulmonary disease, unspecified; E78.5 Hyperlipidemia, unspecified; I10 Essential (primary) hypertension; N40.0 Benign prostatic hyperplasia without lower urinary tract symptoms; K21.9 Gastro-esophageal reflux disease without esophagitis; K44.9 Diaphragmatic hernia without obstruction or gangrene; M06.9 Rheumatoid arthritis, unspecified; M19.91 Primary osteoarthritis, unspecified site; F41.9 Anxiety disorder, unspecified; F32.9 Major depressive disorder, single episode, unspecified; F43.10 Post-traumatic stress disorder, unspecified; Z87.891 Personal history of nicotine dependence; Z90.89 Acquired absence of other organs; Z90.49 Acquired absence of other specified parts of digestive tract; L89.152 Pressure ulcer of sacral region, stage 2; R32 Unspecified urinary incontinence; E86.0 Dehydration; G89.29 Other chronic pain
CPT/HCPCS: 36415; 71045; 80053; 81000; 82962; 83540; 83605; 83735; 84100; 84134; 84145; 84478; 85025; 85027

== ENCOUNTER 2019-12-08 15:00 | Inpatient (IN) | payer MEDICARE, OTHER ==
[~2019-12-08] VITALS: Ht 177.8 cm; Wt 43.4 kg
[~2019-12-08 15:00] MED LIST changes: +ACET325C7 PO; +ASCO500C17 PO; +ATOR10TA66 PO; -BISACODYL 10 MG SUPP (DULCOLAX) PR PRN; -CALCIUM CARBONATE 500 MG (TUMS) TAB.CHEW PO PRN; -DOCUSATE SODIUM 100 MG (COLACE) CAP PO PRN; -ENOXAPARIN 40 MG/0.4 ML (LOVENOX) SYR SC SCH; +FAMO20TA5 PO; +FERR325T18 PO; -FLEET ENEMA ADULT 1 EA BTL PR PRN; +FLUT1BLS IH; +IPRA3AMP31 IH; +LACT1CAP76 PO; -LACTULOSE SYRUP 10GM/15ML (ENULOSE) 30ML UDC PO PRN; +LIDO1ADH78 TP; -LOPERAMIDE 2 MG (IMODIUM) TABLET PO PRN; +MEGE40TA5 PO; +MELA5TAB14 PO; -MELATONIN 3 MG TABLET PO PRN; +MULT-1136 PO; +ONDA4TAB11 PO; -ONDANSETRON 4 MG (ZOFRAN) ORAL DISSOLVE TAB PO PRN; +PANT40SU PO; +QUET25TA PO; +ROPI2TAB6 PO; +TPN; -guaiFENesin/CODEINE (ROBITUSSIN AC) 10ML UDC PO PRN
--- NOTE | 2019-12-08 15:20 | NUR ---
Zeke Chew admitted to room 404-1, with an admitting diagnosis of disuse myopathy, on 12/08/19 from via , accompanied by .ZEKE CHEW introduced to surroundings, call light, bed controls, phone, TV, temperature control, lights, meal times, smoking policy, visitor policy, side rail policy, bathrooms and showers. Patient Rights given to patient in the handbook.ZEKE CHEW verbalizes understanding that [facility] is not responsible for the loss or damage to any personal effects or valuables that are kept in the patients posession during their hospitalization. ZEKE CHEW verbalizes understanding of Interdisciplinary Patient Education. Patient and/or family were informed about the Rapid Response Team and its purpose.
[2019-12-08] MEDS ORDERED: FLEET ENEMA ADULT 1 EA BTL PR PRN (16:00)
[2019-12-08] MEDS ORDERED: RT-ALBUTEROL/IPRATROPIUM 3 ML (DUONEB) VIAL IH PRN (16:00)
[2019-12-08] MEDS ORDERED: DOCUSATE SODIUM 100 MG (COLACE) CAP PO PRN (16:00)
[2019-12-08] MEDS ORDERED: CALCIUM CARBONATE 500 MG (TUMS) TAB.CHEW PO PRN (16:00)
[2019-12-08] MEDS ORDERED: guaiFENesin/CODEINE (ROBITUSSIN AC) 10ML UDC PO PRN (16:00)
[2019-12-08] MEDS ORDERED: BISACODYL 10 MG SUPP (DULCOLAX) PR PRN (16:00)
[2019-12-08] MEDS ORDERED: LACTULOSE SYRUP 10GM/15ML (ENULOSE) 30ML UDC PO PRN (16:00)
[2019-12-08 17:06] VITALS: BP 150/82
[2019-12-08] MEDS: NS IV 1000 ML 1,000 ML IV SCH (17:30)
[2019-12-08] MEDS: QUEtiapine 25 MG (SEROquel) TAB IMMEDIATE RELEASE PO SCH (17:31)
[2019-12-08 19:28] VITALS: BP 145/75
[2019-12-08] MEDS: polyethylene glycoL POWDER 17 GM (MIRALAX) PACK PO SCH (21:00)
[2019-12-08] MEDS: OLANZapine 5 MG ODT (ZyPREXA ZYDIS) PO SCH (23:05)
[2019-12-08] MEDS: LACTOBACILLUS ACIDOPHILUS (PROBIOTIC) CAPSULE PO SCH (23:05)
[2019-12-08] MEDS: SENNA W/DOCUSATE (SENOKOT S) TABLET PO SCH (23:06)
[2019-12-08] MEDS: MEGESTROL 40 MG (MEGACE) TAB PO SCH (23:06)
[2019-12-08] MEDS: FAMOTIDINE 20 MG (PEPCID) TABLET PO SCH (23:06)
[2019-12-08] MEDS: HYDROcodone/APAP 5 MG/325 MG (LORTAB) TAB PO SCH (23:07)
[2019-12-09 00:34] VITALS: BP 132/73
[2019-12-09 03:25] VITALS: BP 116/76
[2019-12-09 06:27] LABS: ALBUMIN 2.3 GM/DL (3.2-4.5); CHLORIDE 110 MMOL/L (98-107); SODIUM 138 MMOL/L (135-145)
[2019-12-09 06:28] LABS: CALCIUM 7.8 MG/DL (8.5-10.1)
[2019-12-09 06:29] LABS: GLUCOSE 80 MG/DL (70-105); TOTAL PROTEIN 6.5 GM/DL (6.4-8.2); TRIGLYCERIDES 100 MG/DL (<150)
[2019-12-09 06:30] LABS: CARBON DIOXIDE 21 MMOL/L (21-32)
[2019-12-09 06:31] LABS: BILIRUBIN,TOTAL 0.4 MG/DL (0.1-1.0)
[2019-12-09 06:33] LABS: ALKALINE PHOSPHATASE 72 U/L (40-136); CREATININE SERUM 0.56 MG/DL (0.60-1.30); GFR ESTIMATED > 60; PHOSPHORUS 2.5 MG/DL (2.3-4.7)
[2019-12-09 06:34] LABS: BUN/CREATININE RATIO 20
[2019-12-09 06:36] LABS: ALANINE AMINOTRANSFERASE 20 U/L (0-55); MAGNESIUM 1.5 MG/DL (1.6-2.4)
[2019-12-09] MEDS: HYDROcodone/APAP 5 MG/325 MG (LORTAB) TAB PO SCH ×3 (07:12→20:49)
[2019-12-09] MEDS: NS IV 1000 ML 1,000 ML IV SCH ×2 (07:13→20:46)
[2019-12-09] MEDS: CYANOCOBALAMIN 1,000 MCG (VITAMIN B-12) TABLET PO SCH (07:21)
[2019-12-09 07:27] VITALS: BP 140/85
[2019-12-09] MEDS: MAGNESIUM 1 GM/D5W 100 ML IVPB IV SCH ×2 (09:07→10:12)
[2019-12-09] MEDS: POTASSIUM CL 10 MEQ/50 ML IVPB (PRE-MIX) IV SCH ×5 (09:07→11:17)
[2019-12-09] MEDS: MEGESTROL 40 MG (MEGACE) TAB PO SCH ×2 (09:07→20:47)
[2019-12-09] MEDS: LACTOBACILLUS ACIDOPHILUS (PROBIOTIC) CAPSULE PO SCH ×2 (09:12→20:47)
[2019-12-09] MEDS: SENNA W/DOCUSATE (SENOKOT S) TABLET PO SCH ×2 (09:13→20:47)
[2019-12-09] MEDS: FOLIC ACID 1 MG TAB PO SCH (09:13)
[2019-12-09] MEDS: polyethylene glycoL POWDER 17 GM (MIRALAX) PACK PO SCH ×2 (09:13→21:08)
[2019-12-09] MEDS: FERROUS SULF 325 MG (IRON) TAB PO SCH (09:13)
[2019-12-09] MEDS: FAMOTIDINE 20 MG (PEPCID) TABLET PO SCH ×2 (09:13→20:47)
--- NOTE | 2019-12-09 10:22 | History & Physical-Hospitalist ---
History of Present Illness HPI/Chief Complaint Pt is a 74yoCM with a PMH of COPD, HTN, HLD, and recent abdominal surgery with slow recovery who was transfer up from IRU to 4th floor due to delirium. He underwent sigmoid colon resection years ago and then presented to this hospital a couple of months ago with SBO requiring ex lap and repeat resection. He has a slow recovery and was on swing bed status here before transferring to [place] and then to our IRU on 11/25. He had done well at first in IRU but over the past week had developed delirium and even aggressive behaviors with this. It had been arranged from him to go to [facility] for psych evaluation but family declined this. He was admitted to med/surg for continued management of his delirium as he was no long able to participate with therapy as needed. This morning he states he is feeling well and is up in his bed talking with the aide. No family at bedside at this time. When I walked in he stated "The things you see when you don't have a gun." When I asked what he meant he just laughed. Source: patient Date Seen 12/09/19 Time Seen by a Provider: 10:15 Attending Physician Razia Vincent MD PCP Zayra Carpenter MD Referring Physician Date of Admission Dec 08, 2019 at 16:08 Home Medications & Allergies Home Medications Reviewed patient Home Medication Reconciliation performed by pharmacy medication reconciliations certified ophthalmic technician and/or nursing. Patients Allergies have been reviewed. Allergies Allergies Coded Allergies budesonide (Verified Allergy, Severe, NUMB LIPS, 09/18/19) diphenhydramine (Verified Allergy, Severe, 09/18/19) formoterol (Verified Allergy, Severe, NUMB LIPS, 09/18/19) alprazolam (Verified Adverse Reaction, Intermediate, MENTAL MOOD CHANGE, 09/18/19) SIG OTHER SAID THE PATIENT GETS COMBATIVE,ANGRY AND VIOLENT. SHE STATES THAT HIS BEHAVIOR IS ODD AND UNLIKE HIM Past [id number] Hx Past Med/Social Hx: Reviewed Nursing Past Med/Soc Hx Patient Social History Marrital Status: Alcohol Use: Denies Use Alcohol Beverage of Choice: Beer Recreational Drug Use: No Former Smoker, Quit: Apr 03, 1994 Type Used: Cigarettes 2nd Hand Smoke Exposure: No Physical Abuse Screen: No Sexual Abuse: No Recent Hopitalizations: No Immunizations Up To Date Date of Pneumonia Vaccine: Mar 31, 2014 Seasonal Allergies Seasonal Allergies: Yes Past Medical History Surgeries: Abdominal, Bowel Surgery, Orthopedic, Tonsillectomy Respiratory: COPD Currently Using CPAP: No Currently Using BIPAP: No Cardiac: High Cholesterol, Hypertension Reproductive: No Sexually Transmitted Disease: No HIV/AIDS: No Genitourinary: Benign Prostatic Hyperpl Gastrointestinal: Colitis, Gastroesophageal Reflux Musculoskeletal: Arthritis HEENT: Cataract Loss of Vision: Denies Hearing Impairment: Denies Psychosocial: Anxiety, PTSD, Depression History of Blood Disorders: No Adverse Reaction to Blood [place]: No (N/A) Family History Reviewed Nursing Family Hx Cardiovascular disease 19 FATHER 19 MOTHER Hypertension 19 FATHER 19 MOTHER Hypertension PSH: LIPOMAS REMOVED COLONOSCOPIES EGD'S HIATAL HERNIA REPAIR WITH INCISIONAL HERNIA REPAIR COLON RESECTION FOR DIVERTICULITIS Review of Systems ROS-Unable to Obtain: limited by confusion Constitutional: see HPI Physical Exam Physical Exam Vital Signs Vital Signs - First Documented 12/08/19 12/08/19 16:53 17:06 Temp 36.5 Pulse 81 Resp 20 B/P (MAP) 150/82 (104) Pulse Ox 98 O2 Delivery Room Air Capillary Refill : Less Than 3 Seconds Height, Weight, BMI Height: 6'1.00" Weight: 170lbs. 0.0oz. [id number]; 18.15 BMI Method:Stated General Appearance: Chronically ill, Cachetic, Thin HEENT: PERRL/EOMI, Moist Mucous Membranes Neck: Normal Inspection, Supple Respiratory: Lungs Clear, No Respiratory Distress Cardiovascular: Regular Rate, Rhythm, No Murmur Gastrointestinal: Other (ABD pad over abdomen) Extremity: No Calf Tenderness, No Pedal Edema Neurologic/Psychiatric: Alert, Other (oriented to person) Results Results/Procedures Labs Laboratory Tests 12/09/19 06:10 Patient resulted labs reviewed. Assessment/Plan Admission Diagnosis Delirium Admission Status: Inpatient Order (span 2 midnights) Reason for Inpatient Admission: see below Assessment and Plan Delirium Continue current regimen as he is less aggressive Reviewed psychology eval and did not participate, now is conversant so will hopefully be able to get assessment tomrorow I attempted to call at [phone] but she did not answer Will check UA Offered CXR due to globus sensation but he declined PPI for globus sensation Small bowel resection Poor oral intake Cachexia Surgery following Continue current GI regimen TPN DVt ppx: Lovenox Clinical Quality Measures DVT/VTE Risk/Contraindication: Risk Factor Score Per Nursin RFS Level Per Nursing on Admit: 4+=Very High RAZIA VINCENT MD Dec 09, 2019 10:22
[2019-12-09] MEDS ORDERED: PANTOPRAZOLE 20 MG TABLET (PROTONIX) PO NR (10:45)
[2019-12-09] MEDS: ENOXAPARIN 30 MG/0.3 ML (LOVENOX) SYR SC SCH (11:14)
[2019-12-09 11:40] VITALS: BP 136/79
[2019-12-09 12:50] LABS: BILIRUBIN,URINE NEGATIVE (NEGATIVE); CLARITY,URINE SL CLOUDY; COLOR,URINE YELLOW; GLUCOSE, URINE (UA) NEGATIVE (NEGATIVE); KETONES,URINE NEGATIVE (NEGATIVE); LEUKOCYTE ESTERASE ,URINE TRACE (NEGATIVE); NITRITE,URINE NEGATIVE (NEGATIVE); PROTEIN,URINE TRACE (NEGATIVE)
--- NOTE | 2019-12-09 12:54 | Physical Therapy Evaluation ---
PT Evaluation-General Medical Diagnosis Admission Date Dec 08, 2019 at 16:08 Medical Diagnosis: Disuse myopathy Onset Date: Nov 26, 2019 Therapy Diagnosis Therapy Diagnosis: weakness, debility Height/Weight Height (Feet): 6 Height (Inches): 1.00 Weight (Pounds): 170 Weight (Ounces): 0.0 Precautions Precautions/Isolations: Fall Prevention, Standard Precautions Weight Bear Status Right Lower Extremity: Right Full Weight Bearing Left Lower Extremity: Left Full Weight Bearing Referral Physician: Melisa Reason for Referral: Evaluation/Treatment Medical History Pertinent Medical History: COPD, Diverticulitis, GERD, HTN, Rheumatoid Arthritis Current History Pt with lengthy hospitalization after SBO requiring resection and abdominal wound requiring [place] for 4 months. Pt admitted to ARU on 11/26/2019 with discharge to acute care on 12/08/2019 with increased agitation, aggression, and refusing therapy. Reviewed History: Yes Social History Current Living Status: Spouse Pt unable to verbalize home set-up Prior Prior Level of Function SCALE: Activities may be completed with or without assistive devices. 6-Pggojfwjio-tmbzipd completes the activity by him/herself with no assistance from a helper. 5-Set-up or Clean-up Assistance-helper sets up or cleans up; patient completes activity. [place] assists only prior to or following the activity. 4-Supervision or Touching Assistance-helper provides verbal cues and/or touching/steadying and/or contact guard assistance as patient completes activity. Assistance may be provided throughout the activity or intermittently. 3-Partial/Moderate Assistance-helper does LESS THAN HALF the effort. [place] lifts, holds or supports trunk or limbs, but provides less than half the effort. 2-Substantial/Maximal Assistance-helper does MORE THAN HALF the effort. [place] lifts or holds trunk or limbs and provides more than half the effort. 9-Pqkdmuwtl-kcqmuc does ALL the effort. Patient does none of the effort to complete the activity. Or, the assistance of 2 or more helpers is required for the patient to complete the activity. If activity was not attempted, code reason: 7-Patient Refused. 9-Not Applicable-not attempted and the patient did not perform the activity before the current illness, exacerbation or injury. 10-Not Attempted due to Environmental Limitations-(lack of equipment, weather restraints, etc.). 88-Not Attempted due to Medical Conditions or Safety Concerns. Pt unable to verbalize PLOF. PT Evaluation-Current Subjective Pt in bed, initially declining to participate with PT and OT but with gentle encouragement, Pt agreeable to up to chair. Minimal verbalizing, mostly shrugging and shaking his head. Objective Patient Orientation: Person, Confused ROM/Strength ROM Upper Extremities See OT ROM Lower Extremities Grossly WFL for transfers. Strength Upper Extremities See OT Strength Lower Extremities Grossly 3/5; not tested due to limited Pt compliance. Integumentary/Posture Integumentary See nurses' notes Bladder Incontinence: Yes Posture Kyphotic Sensory Vision: Functional Hearing: Functional Transfers Lying to Sitting/Side of Bed(Q: 3 Sit to Stand (QC): 4 Chair/Tdw-ft-Axrpw Xfer(QC): 4 Min A x 1 sit<->stand and bed->chair with FWW with skilled VCS for sequencing to square to chair before sitting. Gait Does the Patient Walk?: No and Walking Goal IS indicated Mode of Locomotion: Walk Anticipated Mode of Locomotion: Walk Walk 10 feet (QC): 7 Walk 50 ft with 2 Turns(QC): 7 Walk 150 ft (QC): 7 Walking 10ft/uneven surface-QC: 7 Distance: 2' Gait Assistive Device: FWW Comments/Gait Description Bed->chair TFR with FWW with min A x 1 and skilled VCS for sequencing and safety. Balance Sitting Static: Fair Sitting Dynamic: Fair Standing Static: Fair Standing Dynamic: Fair Treatment Eval. Pt up to recliner with needs met, sitter aware of Pt position. Assessment/Needs Pt would benefit from skilled PT to improve overall functional strength and increase (I) with functional mobility to decrease caregiver burden upon discharge. Rehab Potential: Fair PT Short Term Goals Short Term Goals Time Frame: Dec 16, 2019 Roll Left & Right: 6 Sit to lyin Lying to sitting on side of be: 5 Sit to stand: 5 Chair/gqy-nw-pfefq transfer: 5 PT [employer] Goals Senior Care Goals PT Senior Care Goals Time Frame: Dec 23, 2019 Roll Left & Right (QC): 6 Sit to Lying (QC): 6 Lying-Sitting on Side/Bed(QC): 6 Sit to Stand (QC): 5 Chair/Qty-fz-Flenm Xfer(QC): 5 Toilet Transfer (QC): 5 Car Transfer (QC): 5 Does the Patient Walk: No and Walking Goal IS indicated Walk 10 feet (QC): 5 Walk 50ft with 2 Turns (QC): 5 Walk 150 ft (QC): 5 Walking 10ft on Uneven Surface: 4 1 Step (curb) (QC): 4 Does the Pt use WC or Scooter?: No Type: N/A Type: N/A PT LTGs established to allow increased (I) with functional mobility to decrease caregiver burden upon discharge. PT Plan Problem List Problem List: Activity Tolerance, Functional Strength, Safety, Balance, Gait, Transfer, Bed Mobility, ROM Treatment/Plan Treatment Plan: Continue Plan of Care Treatment Plan: Bed Mobility, Education, Functional Activity [place], Functional Strength, Group Therapy, Gait, Safety, Therapeutic Exercise, Transfers Treatment Duration: Dec 23, 2019 Frequency: 6 times per week Estimated Hrs Per Day: .25 hour per day Patient and/or Family Agrees t: Yes Safety Risks/Education Teaching Recipient: Patient Teaching Methods: Discussion Response to Teaching: Reinforcement Needed Role of PT, importance of increasing activity Discharge Recommendations Barriers to Progress Pt participation, agitation Time/GCodes Time In: 0845 Time Out: 0900 Total Billed Treatment Time: 15 Total Billed Treatment 1, EVHIGHC x 15' Co-treat with OT due to poor Pt motivation, poor activity tolerance, safety and sequencing. RHINA VERGARA DPYenny Dec 09, 2019 12:54
--- NOTE | 2019-12-09 12:58 | Occupational Therapy Eval ---
OT Evaluation-General/PLF Medical Diagnosis Admission Date Dec 08, 2019 at 16:08 Medical Diagnosis: Small bowel obstruction Onset Date: Nov 26, 2019 Therapy Diagnosis Therapy Diagnosis: Weakness Height/Weight Height (Feet): 6 Height (Inches): 1.00 Weight (Pounds): 170 Weight (Ounces): 0.0 Precautions Precautions/Isolations: Fall Prevention, Standard Precautions Referral Physician: Dr. Vincent Referral Reason: Activity Tolerance, Self Care, Evaluation/Treatment, Strengthening/ROM Medical History Pertinent Medical History: COPD, Diverticulitis, GERD, HTN, Rheumatoid Arthritis Additional Medical History PTSD Current History Pt. was on rehab unit following lengthy hospital stay. Pt. non-compliant or participatory with therapy. Demonstrated aggressive behaviors and confusion. Pt. transferred to medical floor for further evaluation. Reviewed History: Yes Social History Home: Single Level Current Living Status: Spouse ADL-Prior Level of Function SCALE: Activities may be completed with or without assistive devices. 5-Qbtocchoff-ydjapxw completes the activity by him/herself with no assistance from a helper. 5-Set-up or Clean-up Assistance-helper sets up or cleans up; patient completes activity. [place] assists only prior to or following the activity. 4-Supervision or Touching Assistance-helper provides verbal cues and/or touching/steadying and/or contact guard assistance as patient completes activity. Assistance may be provided throughout the activity or intermittently. 3-Partial/Moderate Assistance-helper does LESS THAN HALF the effort. [place] lifts, holds or supports trunk or limbs, but provides less than half the effort. 2-Substantial/Maximal Assistance-helper does MORE THAN HALF the effort. [place] lifts or holds trunk or limbs and provides more than half the effort. 0-Qmtdztqlm-woyqoj does ALL the effort. Patient does none of the effort to complete the activity. Or, the assistance of 2 or more helpers is required for the patient to complete the activity. If activity was not attempted, code reason: 7-Patient Refused. 9-Not Applicable-not attempted and the patient did not perform the activity before the current illness, exacerbation or injury. 10-Not Attempted due to Environmental Limitations-(lack of equipment, weather restraints, etc.). 88-Not Attempted due to Medical Conditions or Safety Concerns. ADL PLOF Comments It is unknown at this time pt's specific prior needs or LOF. Pt. is unable to verbalize this, and spouse not present. Self Care: Unknown Functional Cognition: Unknown OT Current Status Subjective Pt. does not report pain level. Pt. looks at therapy, but does not verbalize until later in treatment. Appearance Pt. in bed. Awake. Makes eye contact with therapy staff. Will not initiate treatment without multiple verbal cues. Mental Status/Objective Patient Orientation: Confused ADL-Treatment Lower Body Dressing (QC): 1 On/Off Footwear (QC): 1 Toileting Hygiene (QC): 1 Other Treatments OT/PT completed co-treat due to level of skilled assistance that pt. needs. Pt. requires assist of two for encouragement, and orientation. Pt. looks at staff and does not answer questions when asked how he is feeling, or if he would like to get to the chair. With max encouragement, pt. does agree. PT facilitates transfers while OT assesses ADL needs. Pt. requires mod assist to transfer supine-sit. It is noted that pt. has soiled brief. Dependent assistance to cleanse self and change brief. Pt. transferred to chair with min assist. All needs met and chair alarm in place. Education OT Patient Education: Correct positioning, Modified ADL techniques, Progress toward Goal/Update tx plan, Purpose of tx/functional activities, Reviewed precautions, Rehab process, Transfer techniques Teaching Recipient: Patient Teaching Methods: Demonstration, Discussion Response to Teaching: Reinforcement Needed OT Short Term Goals Short Term Goals Time Frame: Dec 16, 2019 Eatin Oral hygiene: 3 Toileting hygiene: 2 OT Chcf Goals Chcf Goals Time Frame: Dec 23, 2019 Eating (QC): 4 Oral Hygiene (QC): 4 Toileting Hygiene (QC): 3 Additional Goals: 1-Demonstrate ADL Tasks, 2-Verbalize Understanding, 3- ImproveStrength/[place] 1=Demonstrate adherence to instructed precautions during ADL tasks. 2=Patient will verbalize/demonstrate understanding of assistive devices/modifications for ADL. 3=Patient will improve strength/tolerance for activity to enable patient to perform ADL's. OT Education/Plan Problem List/Assessment Assessment: Decreased Activ Tolerance, Decreased UE Strength, Dependent Transfers, Impaired Bed Mobility, Impaired Cognition, Impaired Coordination, Impaired Funct Balance, Impaired I ADL's, Impaired Self-Care Skills, Restricted Funct UE ROM Discharge Recommendations Plan/Recommendations: Continue POC Therapy Discharge Recommendati: Post Acute OT Treatment Plan/Plan of Care Treatment,Training & Education: Yes Patient would benefit from OT for education, treatment and training to promote independence in ADL's, mobility, safety and/or upper extremity function for ADL's. Plan of Care: ADL Retraining, Functional Mobility, UE Funct Exercise/Act Treatment Duration: Dec 23, 2019 Frequency: 5 times per week Estimated Hrs Per Day: .25 hour per day Agreement: Yes Rehab Potential: Guarded Time/GCodes Start Time: 08:45 Stop Time: 09:00 Total Time Billed (hr/min): 15 Billed Treatment Time 1, XOCHILT OSUNA OT Dec 09, 2019 12:57
[2019-12-09 12:59] LABS: BACTERIA,URINE LARGE /HPF; RBC,URINE 50-100 /HPF
[2019-12-09 15:30] VITALS: BP 124/74
--- NOTE | 2019-12-09 15:34 | NUR ---
PATIENT'S LOST CELL PHONE WAS RETURNED TO [facility] FROM [facility]. TAKEN UPSTAIRS TO 4TH FLOOR AND GIVEN TO , GERONIMO.
[2019-12-09] MEDS: SODIUM ACETATE IV SCH ×11 (17:22)
[2019-12-09] MEDS: [UNRECOGNIZED DRUG - OTHER] IV SCH ×11 (17:22)
[2019-12-09] MEDS: QUEtiapine 25 MG (SEROquel) TAB IMMEDIATE RELEASE PO SCH (17:22)
[2019-12-09] MEDS: SODIUM CHLORIDE IV SCH ×11 (17:22)
--- NOTE | 2019-12-09 18:31 | NUR ---
called this RN into room at this time. patient is starting to get agitated, throwing things on the floor, and trying to get out of bed at this time. requested he be given PRN medications to calm him. Geodon given at this time
[2019-12-09] MEDS: ZIPRASIDONE 20 MG INJ (GEODON) VIAL IM PRN ×2 (18:39→23:15)
[2019-12-09] MEDS ORDERED: WATER (STERILE) FOR INJECTION 10 ML ONE (18:43)
[2019-12-09 19:47] VITALS: BP 124/92
[2019-12-09] MEDS: HALOPERIDOL 5 MG/ML (HALDOL) VIAL IM PRN (20:26)
[2019-12-09] MEDS: HYDROcodone/APAP 10 MG/325 MG (LORTAB) TAB PO PRN (20:26)
[2019-12-09] MEDS: OLANZapine 5 MG ODT (ZyPREXA ZYDIS) PO SCH (20:47)
[2019-12-10 04:50] LABS: HEMOGLOBIN 7.2 G/DL (13.3-17.7); MEAN PLATELET VOLUME 9.1 FL (7.4-10.4); WHITE BLOOD COUNT 12.1 10^3/uL (4.3-11.0)
[2019-12-10 05:01] LABS: CHLORIDE 112 MMOL/L (98-107); POTASSIUM 3.9 MMOL/L (3.6-5.0); SODIUM 138 MMOL/L (135-145)
[2019-12-10 05:02] LABS: CALCIUM 7.4 MG/DL (8.5-10.1)
[2019-12-10 05:03] LABS: GLUCOSE 230 MG/DL (70-105)
[2019-12-10 05:04] LABS: CARBON DIOXIDE 20 MMOL/L (21-32)
[2019-12-10 05:07] LABS: CREATININE SERUM 0.56 MG/DL (0.60-1.30); GFR ESTIMATED > 60
[2019-12-10 05:08] LABS: BUN/CREATININE RATIO 20
[2019-12-10] MEDS: HYDROcodone/APAP 5 MG/325 MG (LORTAB) TAB PO SCH ×4 (05:21→21:48)
[2019-12-10 05:56] VITALS: BP 155/80
[2019-12-10 08:00] VITALS: BP 165/87
--- NOTE | 2019-12-10 08:37 | Progress Note ---
Subjective Subjective Date Seen by Provider: Dec 10, 2019 Time Seen by Provider: 08:30 PT IS A 74 Y/O MALE WHO IS KNOWN TO ME FROM PREVIOUS HOSPITALIZATION FOR HIS SMALL BOWEL OBSTRUCTION FROM WHICH HE HAS HAD A VERY PROTRACTED ILLNESS. HE HAD BEEN AT [facility] FOR RECOVERY POST-OPERATIVELY AND HE WAS THEN T RANSFERRED BACK TO [facility] FOR INPATIENT REHAB. UNFORTUNATELY, HE HAS NOT PARTICIPATED VERY WELL WITH INPATIENT REHAB AND STARTED TO HAVE MORE CONFUSION/DELIRIUM AND WAS TRANSFERRED UP TO THE 4TH FLOOR INPATIENT UNIT FOR FURTHER TREATMENT/RECOVERY. TODAY HE IS CONFUSED, DENIES ANY CONCERNS, STAFF REPORTS CONFUSION AND INTERMITTENT COMBATIVENESS. Review of Systems ROS Unable to Obtain: limited by confusion General: Fatigue, Malaise, Appetite (DECREASED) Pulmonary: Other (NO COUGH, CONGESTION) Cardiovascular: Other (NO CHEST PAIN OR SHORTNESS OF BREATH , DOES NOT REALLY EXERT HIMSELF WITH ANY ACTIVITY) Gastrointestinal: Diarrhea, Other (FECAL INCONTINENCE) Genitourinary: Other (URINARY INCONTINENCE) Neurological: Weakness, Confusion OPEN ABDOMINAL WOUND, CONFUSION AND COMBATIVENESS Objective Exam Vital Signs Vital Signs - First Documented 12/08/19 12/08/19 16:53 17:06 Temp 36.5 Pulse 81 Resp 20 B/P (MAP) 150/82 (104) Pulse Ox 98 O2 Delivery Room Air Capillary Refill : Less Than 3 Seconds General Appearance: No Apparent Distress, Chronically ill, Cachetic, Thin HEENT: PERRL/EOMI, Moist Mucous Membranes Neck: Normal Inspection, Supple Respiratory: Lungs Clear, No Respiratory Distress Cardiovascular: Regular Rate, Rhythm, No Murmur Gastrointestinal: Other (OPEN WOUND, PINK WITH SLIGHT AMOUNT OF GRANULATION TISSUE AND CLEAR SUTURES IN ABDOMINAL WOUND PRESENT) Extremity: No Calf Tenderness, No Pedal Edema Neurologic/Psychiatric: Alert, Other (ORIENTED TO PERSON, NOT PLACE OR TIME, FLAT AFFECT) Results Lab Laboratory Tests 12/09/19 12:40: Urine Color YELLOW, Urine Clarity SL CLOUDY, Urine pH 6.0, Urine Specific [place] 1.025H, Urine Protein TRACEH, Urine Glucose (UA) NEGATIVE, Urine Ketones NEGATIVE, Urine Nitrite NEGATIVE, Urine Bilirubin NEGATIVE, Urine Urobilinogen 0.2, Urine Leukocyte Esterase TRACEH, Urine RBC (Auto) 3+H, Urine RBC 50-100H, Urine WBC 10-25H, Urine Squamous Epithelial Cells NONE, Urine Crystals NONE, Urine Bacteria LARGEH, Urine Casts NONE, Urine Mucus NEGATIVE, Urine Culture Indicated YES 12/10/19 04:44: White Blood Count 12.1H, Red Blood Count 2.68L, Hemoglobin 7.2L, Hematocrit 23L, Mean Corpuscular Volume 86, Mean Corpuscular Hemoglobin 27, Mean Corpuscular Hemoglobin Concent 31L, Red Cell Distribution Width 16.4H, Platelet Count 396, Mean Platelet Volume 9.1, Sodium Level 138, Potassium Level 3.9, Chloride Level 112H, Carbon Dioxide Level 20L, Anion Gap 6, Blood Urea Nitrogen 11, Creatinine 0.56L, Estimat Glomerular Filtration Rate > 60, BUN/Creatinine Ratio 20, Glucose Level 230H, Calcium Level 7.4L Microbiology 12/09/19 Urine Culture - Preliminary, Resulted Probable Klebsiella/Enterobact Assessment/Plan Assessment/Plan Admission Dx URINARY TRACT INFECTION CRITICAL ILLNESS MYOPATHY DELIRIUM ANOREXIA CACHEXIA SMALL BOWEL RESECTION DEMENTIA DIARRHEA FECAL INCONTINENCE URINARY INCONTINENCE URINARY TRACT INFECTION - IV ANTIBIOTICS - MONITOR URINE CULTURE FOR SENSITIVITY SO WE CAN NARROW ANTIBIOTICS CRITICAL ILLNESS MYOPATHY - SUPPORTIVE CARE, HE CANNOT PARTICIPATE WELL WITH THERAPY DUE TO HIS DEMENTIA AND DELIRIUM, SUPPORTIVE CARE AND WE WILL NEED TO LOOK FOR A SKILLED NURSING WHICH CAN TAKE HIM WITH HIS MULTIPLE NEEDS. DELIRIUM, ANOREXIA, CACHEXIA - PT RECEIVINT TPN DUE TO HIS POOR INTAKE, HE IS ALSO ON [facility] WITH MINIMAL IMPROVEMENT IN HIS APPETITE. SMALL BOWEL RESECTION WITH OPEN ABDOMINAL WOUND - WOUND CARE FOR ABDOMINAL WOUND, NOTES REPORT WOUND VAC, BUT HE HAS NOT HAD ONE ON - WILL DISCUSS WITH STAFF LATER THIS WEEK ONCE PT'S DELIRIUM AND OTHER SYMPTOMS HAVE IMPROVED. DIARRHEA WITH FECAL INCONTINENCE - SUPPORTIVE CARE, PROBIOTICS TO TRY TO DECREASE FECAL OUTPUT. URINARY INCONTINENCE - SUPPORTIVE CARE ONLY AT THIS TIME. ANEMIA - DUE TO EXTENSIVE ILLNESS, BLOOD LOSS AND POOR INTAKE, CHECK IRON PANEL, TRANSFUSE IF NEEDED IF HGB DROPS BELOW 7. Admission Status: Inpatient Order (span 2 midnights) Clinical Quality Measures DVT/VTE Risk/Contraindication: Risk Factor Score Per Nursin RFS Level Per Nursing on Admit: 4+=Very High TITA LAINEZ MD Dec 10, 2019 08:37
--- NOTE | 2019-12-10 08:59 | ST Cognitive Linguistic Eval ---
Speech Evaluation-General Medical Diagnosis Small bowel obstruction Onset Date: Nov 26, 2019 Therapy Diagnosis Therapy Diagnosis: Cognitive-communication Referral Referring Physician: Dr. Vincent Medical History Pertinent Medical History: COPD, Diverticulitis, GERD, HTN, Rheumatoid Arthritis Reviewed History: Yes Social History Current Living Status: Spouse Speech PLF-Current Status Prior Level of Function Patient lived at home with his where he is presumed to have been independent for much of his daily needs. Subjective Patient was cooperative with the evaluation and participated well. Language Eval: Auditory Comprehends Simple Yes/No Ques: Functional Indent/Objects Multiple Pham: Functional Ident/Pics in Multiple Pham: Functional Follows 1-Step Commands: Functional Follows Complex Directions: Moderate Follows General Conversations: Mild Language Eval: Verbal Language Completes Spontaneous Greeting: Functional Produces Auto, Serial Info: Functional Imitates Simple Words/Phrases: Functional Word Finding: Mild Requests Basic Needs: Mild States Basic Personal Info: Moderate Expresses Complex Ideas: Moderate Objective Cognitive Domain Attention: Mild Memory: Moderate Problem Solving: Moderate Executive Functions: Moderate Visuospatial Skills: Mild Objective Formal/Standardized Tests [facility] Status ([facility]) portions completed, informal clinical tasks Results Moderate deficits overall. Patient does continued to exhibit delirium related to "[place]". Patient requires frequent redirection to task/question to complete. Patient continued to be pleasant through the entire process, however he did not become agitated with clinician at any time. Oral Motor/Speech Production grossly within normal range with voice volume significantly decreased and patient is edentulous Impression Patient is a 74 y/o male who has been in the hospital for quite some time due to various medical complications. Patient is known to me from previous settings, the most recent being the inpatient therapy floor. Patient was re-admitted to the the acute floor due to inability to follow through with the amount of therapy necessary for the IRU. Patient was given the cognitive assessment at bedside with SLUMS portions, informal speech tasks as well. Patient demonstrates a moderate deficit in mentation, noted by delirium and speaking of "[place]". Patient requires frequent redirection to task. He was pleasant and cooperative throughout the process without agitation noted. Patient will receive ST with focus on safety awareness and the "here and now" orientation. Speech Patient Assess Expression of Ideas/Wants: Frequently (2) Understanding Verbal Content: Sometimes Understands(2) Brief Interview-Mental Status: Yes Repetition of Three Words: Three (3) Temporal Orientation: Year: Missed by more than 5 yrs (0) Temporal Orientation: Month: No answer (0) Temporal Orientation: Day: Incorrect or No Answer(0) Recall : Wear to say "Sock": No, could not recall (0) Recall : Color: No, could not recall (0) Recall : Bed: No, could not recall (0) Memory/Recall Ability: That he or she is in a hsp/hsp unit Speech-Plan Treatment Plan Rehab Potential: Guarded JAE MCGUIRE Dec 10, 2019 08:59
[2019-12-10] MEDS ORDERED: VANCOMYCIN INJECTION 1,000 MG in NS (IVPB) 250 ML IV SCH (09:00)
[2019-12-10] MEDS: polyethylene glycoL POWDER 17 GM (MIRALAX) PACK PO SCH ×2 (09:27→19:45)
[2019-12-10] MEDS: FAMOTIDINE 20 MG (PEPCID) TABLET PO SCH ×3 (09:28→21:00)
[2019-12-10] MEDS: LACTOBACILLUS ACIDOPHILUS (PROBIOTIC) CAPSULE PO SCH ×4 (09:28→17:17)
[2019-12-10] MEDS: FERROUS SULF 325 MG (IRON) TAB PO SCH (09:28)
[2019-12-10] MEDS: FOLIC ACID 1 MG TAB PO SCH (09:28)
[2019-12-10] MEDS: SENNA W/DOCUSATE (SENOKOT S) TABLET PO SCH ×2 (09:28→19:45)
[2019-12-10] MEDS: PANTOPRAZOLE 20 MG TABLET (PROTONIX) PO SCH (09:28)
[2019-12-10] MEDS: CYANOCOBALAMIN 1,000 MCG (VITAMIN B-12) TABLET PO SCH (09:28)
[2019-12-10] MEDS: MEGESTROL 40 MG (MEGACE) TAB PO SCH ×3 (09:28→21:00)
[2019-12-10] MEDS: cefTRIAXone FOR IV USE 1,000 MG in WATER (STERILE) FOR INJECTION 10 ML IV SCH (09:32)
--- NOTE | 2019-12-10 09:51 | NUR ---
VANCOMYCIN DOSING SCR 0.56 (USED 1.0); CRCL ~ 50; BOLUS VANC 20 MG/KG X 55 KG ~ 1 GM THEN VANC 15 MG/KG ~ 750 MG Q24H CHECK TROUGH LEVEL 12/11 0800 HOLD DOSE AND CONTACT PHARMACY IF LEVEL IS GREATER THAN 20 OR LESS THAN 10
--- NOTE | 2019-12-10 09:55 | ST Cognitive Linguistic Eval ---
Speech Evaluation-General Medical Diagnosis Small bowel obstruction Onset Date: Nov 26, 2019 Therapy Diagnosis Therapy Diagnosis: Cognitive-communication Referral Referring Physician: Dr. Vincent Medical History Pertinent Medical History: COPD, Diverticulitis, GERD, HTN, Rheumatoid Arthritis Reviewed History: Yes Social History Current Living Status: Spouse Speech PLF-Current Status Prior Level of Function Patient lived at home with his where he is presumed to have been independent for much of his daily needs. Subjective Patient was cooperative with the evaluation and participated well. Language Eval: Auditory Comprehends Simple Yes/No Ques: Functional Indent/Objects Multiple Pham: Functional Ident/Pics in Multiple Pham: Functional Follows 1-Step Commands: Functional Follows Complex Directions: Moderate Follows General Conversations: Mild Language Eval: Verbal Language Completes Spontaneous Greeting: Functional Produces Auto, Serial Info: Functional Imitates Simple Words/Phrases: Functional Requests Basic Needs: Mild States Basic Personal Info: Moderate Expresses Complex Ideas: Moderate Objective Cognitive Domain Attention: Mild Memory: WNL Problem Solving: Moderate Executive Functions: Moderate Visuospatial Skills: Mild Composite Severity Rating: Moderate Objective Formal/Standardized Tests [facility] Mental Status ([facility]) Results Moderate deficits overall. Patient does continue to exhibit delirium related to "[place]". Patient requires frequent redirection to task/question to complete. Patient continued to be pleasant through the entire process, however he did not become agitated with clinician at any time. Oral Motor/Speech Production Grossly within normal range with voice volume significantly decreased and patient is edentulous. Impression Patient is a 74 y/o male who has been in the hospital for quite some time due to various medical complications. Patient is known to me from previous settings, the most recent being the inpatient therapy floor. Patient was re-admitted to the acute floor due to inability to follow through with the amount of therapy necessary for the IRU. Patient was given the cognitive assessment at bedside with SLUMS portions, informal speech tasks as well. Patient demonstrates a moderate deficit in mentation, noted by delirium and speaking of "[place]". Patient requires frequent redirection to task. He was pleasant and cooperative throughout the process without agitation noted. Patient will receive ST with focus on safety awareness and the "here and now" orientation. Speech Short Term Goals Short Term Goals Short Term Goals 1) Patient will completed memory tasks related to his daily needs at 80% or greater with minimal cues. 2) Patient will completed safety awareness tasks related to his daily needs at 80% or greater with minimal cues. 3) Patient will completed problem solving tasks related to his daily needs at 80% or greater with minimal cues. Speech Director Sales Support Goals Director Sales Support Goals Patient will improve cognitive-communication necessary for safety and daily living tasks with minimal assist. Speech-Plan Patient/Family Goals Patient/Family Goals: Patient plans on returning to his home where he lives with his . Patient's medical/mental status will be considered upon discharge as to the safest location at that time. Treatment Plan Speech Therapy Treatment Plan: Continue Plan of Care Frequency: 4 times per week (Patient will receive skilled ST 4-5x per week.) Estimated Hrs Per Day: .25 hour per day Rehab Potential: Guarded Barriers to Learning: Patient's medical/mental status Pt/Family Agrees to Plan: Yes Safety Risks/Education Teaching Recipient: Patient Teaching Methods: Discussion Response to Teaching: Verbalize Understanding, Reinforcement Needed Education Topics Provided: Patient's safety within his room, communication of wants/needs Time Speech Therapy Time In: 08:15 Speech Therapy Time Out: 08:45 Total Billed Time: 30 Billed Treatment Time 1, LUDMILA GRAHAM B[facility] ST Dec 10, 2019 09:55
--- NOTE | 2019-12-10 09:59 | Occupational Ther Daily Note ---
OT Current Status-Daily Note Subjective Pt alert, lying in bed. Nrsg present in room. When asked if pt was doing okay, he answered yes. Then proceeded to reach over toward R UE and state that he wanted NORRIS to pull something though NORRIS unable to decipher what pt wanted. Pt then stated that he wanted his phone and go home. Mental Status/Objective Patient Orientation: Person Attachments: IV ADL-Treatment Pt agrees to complete oral care. Then when handed pt dentures and asked if he wanted to cleanse his mouth first he stated no. Pt then reached for dentures and took one out then replaced and handed them back to nrsg. NORRIS gave pt back denture cup and pt able to place dentures in without assistance. Pt required assistance x2 to scoot self up in bed. After therapy, pt lying in bed with call light/phone in reach. Nrsg/sitter in room. All needs met in room. Safety measures in place. Therapy Code Descriptions/Definitions Functional [place] Measure: 0=Not Assessed/NA 4=Minimal Assistance 1=Total Assistance 5=Supervision or Setup 2=Maximal Assistance 6=Modified [place] 3=Moderate Assistance 7=Complete IndependenceSCALE: Activities may be completed with or without assistive devices. 2-Rnkekiokqk-qkxpvre completes the activity by him/herself with no assistance from a helper. 5-Set-up or Clean-up Assistance-helper sets up or cleans up; patient completes activity. [place] assists only prior to or following the activity. 4-Supervision or Touching Assistance-helper provides verbal cues and/or touching/steadying and/or contact guard assistance as patient completes activity. Assistance may be provided throughout the activity or intermittently. 3-Partial/Moderate Assistance-helper does LESS THAN HALF the effort. [place] lifts, holds or supports trunk or limbs, but provides less than half the effort. 2-Substantial/Maximal Assistance-helper does MORE THAN HALF the effort. [place] lifts or holds trunk or limbs and provides more than half the effort. 2-Onlqomwzc-xtlgyd does ALL the effort. Patient does none of the effort to complete the activity. Or, the assistance of 2 or more helpers is required for the patient to complete the activity. If activity was not attempted, code reason: 7-Patient Refused. 9-Not Applicable-not attempted and the patient did not perform the activity before the current illness, exacerbation or injury. 10-Not Attempted due to Environmental Limitations-(lack of equipment, weather restraints, etc.). 88-Not Attempted due to Medical Conditions or Safety Concerns. Oral Hygiene (QC): 4 (Pt required direction to follow through with placing dentures.) OT Short Term Goals Short Term Goals Time Frame: Dec 16, 2019 Eatin Oral hygiene: 3 Toileting hygiene: 2 OT Correction Goals Almond Sorter Goals Time Frame: Dec 23, 2019 Eating (QC): 4 Oral Hygiene (QC): 4 Toileting Hygiene (QC): 3 Additional Goals: 1-Demonstrate ADL Tasks, 2-Verbalize Understanding, 3- ImproveStrength/Wicho 1=Demonstrate adherence to instructed precautions during ADL tasks. 2=Patient will verbalize/demonstrate understanding of assistive devices/modifications for ADL. 3=Patient will improve strength/tolerance for activity to enable patient to perform ADL's. OT Education/Plan Problem List/Assessment Assessment: Decreased Activ Tolerance, Decreased Safety Aware, Impaired Bed Mobility, Impaired Cognition Discharge Recommendations Plan/Recommendations: Continue POC Treatment Plan/Plan of Care Patient would benefit from OT for education, treatment and training to promote independence in ADL's, mobility, safety and/or upper extremity function for ADL's. Plan of Care: ADL Retraining, Functional Mobility, UE Funct Exercise/Act Treatment Duration: Dec 23, 2019 Frequency: 5 times per week Estimated Hrs Per Day: .25 hour per day Agreement: Yes Rehab Potential: Guarded Time/GCodes Start Time: 09:36 Stop Time: 09:46 Total Time Billed (hr/min): 10 Billed Treatment Time 1 visit-FA 1 (10 min) FATOUMATA DEL REAL Dec 10, 2019 09:59
[2019-12-10 10:02] LABS: MAGNESIUM 1.8 MG/DL (1.6-2.4); PHOSPHORUS 3.2 MG/DL (2.3-4.7)
--- NOTE | 2019-12-10 11:50 | Physical Therapy Daily Note ---
PT Daily Note-Current Subjective Patient is in bed with 4 rails up and bed alarm activated, telesitter and live sitter present due to confusion and agitation. Patient does agrees to therapy. Mental Status Patient Orientation: Confused Attachments: Central Line Transfers SCALE: Activities may be completed with or without assistive devices. 2-Qeeynpecfb-cqyhsry completes the activity by him/herself with no assistance from a helper. 5-Set-up or Clean-up Assistance-helper sets up or cleans up; patient completes activity. [place] assists only prior to or following the activity. 4-Supervision or Touching Assistance-helper provides verbal cues and/or touching/steadying and/or contact guard assistance as patient completes activity. Assistance may be provided throughout the activity or intermittently. 3-Partial/Moderate Assistance-helper does LESS THAN HALF the effort. [place] lifts, holds or supports trunk or limbs, but provides less than half the effort. 2-Substantial/Maximal Assistance-helper does MORE THAN HALF the effort. [place] lifts or holds trunk or limbs and provides more than half the effort. 1-Zuuepjmro-gpmsqy does ALL the effort. Patient does none of the effort to complete the activity. Or, the assistance of 2 or more helpers is required for the patient to complete the activity. If activity was not attempted, code reason: 7-Patient Refused. 9-Not Applicable-not attempted and the patient did not perform the activity before the current illness, exacerbation or injury. 10-Not Attempted due to Environmental Limitations-(lack of equipment, weather restraints, etc.). 88-Not Attempted due to Medical Conditions or Safety Concerns. Roll Left & Right (QC): 3 Lying to Sitting/Side of Bed(Q: 2 Sit to Stand (QC): 2 Chair/Nib-yl-Spuay Xfer(QC): 2 Toilet Transfer (QC): 2 (assisted patient with toileting) patient is retropulsive and impulsive with all mobility. Unaware of safety concerns Weight Bearing Right Lower Extremity: Right Full Weight Bearing Left Lower Extremity: Left Full Weight Bearing Gait Training Does the Patient Walk?: Yes Distance: 225' Walk 10 feet (QC): 2 Walk 50 ft with 2 Turns(QC): 2 Walk 150 ft (QC): 2 Gait Assistive Device: FWW slow, scissor gait sequence and right lean also slightly retropulsive (patient requires redirection to remain on task and has no safety awareness with all mobility) (PT assist to advance FWW and to perform turns with gait training) Assessment Patient is up in recliner with chair alarm activated, telesitter and live sitter. Patient is cooperative on this date. PT Short Term Goals Short Term Goals Time Frame: Dec 16, 2019 Roll Left & Right: 6 Sit to lyin Lying to sitting on side of be: 5 Sit to stand: 5 Chair/geb-uo-oxawj transfer: 5 PT Museum Or Zoo Director Goals [facility] Goals PT Museum Or Zoo Director Goals Time Frame: Dec 23, 2019 Roll Left & Right (QC): 6 Sit to Lying (QC): 6 Lying-Sitting on Side/Bed(QC): 6 Sit to Stand (QC): 5 Chair/Iuq-ok-Sguof Xfer(QC): 5 Toilet Transfer (QC): 5 Car Transfer (QC): 5 Does the Patient Walk: No and Walking Goal IS indicated Walk 10 feet (QC): 5 Walk 50ft with 2 Turns (QC): 5 Walk 150 ft (QC): 5 Walking 10ft on Uneven Surface: 4 1 Step (curb) (QC): 4 Does the Pt use WC or Scooter?: No Type: N/A Type: N/A PT Plan Treatment/Plan Treatment Plan: Continue Plan of Care Treatment Plan: Bed Mobility, Education, Functional Activity Wicho, Functional Strength, Group Therapy, Gait, Safety, Therapeutic Exercise, Transfers Treatment Duration: Dec 23, 2019 Frequency: 6 times per week Estimated Hrs Per Day: .25 hour per day Patient and/or Family Agrees t: Yes Time/GCodes Time In: 1104 Time Out: 1127 Total Billed Treatment Time: 23 Total Billed Treatment 1 visit GT x 2 23 min ANSLEY ARCE PT Dec 10, 2019 11:50
[2019-12-10] MEDS: ENOXAPARIN 30 MG/0.3 ML (LOVENOX) SYR SC SCH (13:18)
--- NOTE | 2019-12-10 13:29 | NUR ---
"CALORIE COUNT Note calorie count information carried over from rehab course Est kcal needs: 1650 kcal | 30 kcal/kg Est Pro needs: 66 g Pro | 1.2 g Pro/kg Note pt currently on TPN, providing 1670 kcal (30 kcal/kg); 80 g Pro (1.4 g Pro/kg). This currently provides sufficient kcal (101%) and protein (121%) to meet pt's nutritional needs 11/28: 478 kcal (27% of est needs) | 14 g Pro (19% of est needs) 11/29: 358 kcal (20% of est needs) | 4 g Pro (1% of est needs) 11/30: 514 kcal (29% of est needs) | 11 g Pro (15% of est needs) 12/01: 343 kcal (19% of est needs) | 11 g Pro (15% of est needs) | Note: Pt refused B and L trays, per chart review. 12/02: 164 kcal (9% of est needs) | 5 g Pro (7% of est needs) 12/03: 1111 kcal (61% of est needs) | 33 g Pro (46% of est needs) 12/04: 435 kcal (24% of est needs) | 24 g Pro (33% of est needs) 12/05: 135 kcal (8% of est needs) | 15 g Pro (22% of est needs) 12/06: 1491 kcal (90% of est needs) | 47 g Pro (71% of est needs) 9: No record of meals consumed 12/08: 113 kcal (7% of est needs) | 6 g Pro (9% of est needs) Would recommend continuation of TPN to provide nutritional needs for pt. Would recommend continuation of nutrition supplementation to improve kcal intake. Encouraged pt to eat when able. Will continue to follow and reassess as pt needs, intake, and status change. Flaco Dave, MS, RD, LD [phone] (cell)"
--- NOTE | 2019-12-10 13:48 | NUR ---
"RD ASSESSMENT PMHx: COPD; HTN; BPH; colitis; GERD; malnutrition; hypercholesterolemia; PT INTERACTION: Pt was awake and pleasant during dietary consult for MST score. Pt states he has been eating poorly since last assessment. Note avg PO intake <10% of meals, per chart review. Note pt currently receiving TPN of 1670 kcal (30 kcal/kg) and 80 g Pro (1.4 g Pro/kg), per chart review. TPN currently provides 101% of kcal needs, and 121% of Pro needs. Pt states no issues with nausea, vomiting, or constipation since last assessment. Pt states some issues with diarrhea. Note last BM was 12/08, and pt currently on bowel regimen of senna BID; and miralax BID, per chart review. Note recent 38# wt loss x3mon, per chart review. This is significant wt loss at 24%. Upon visual assessment, pt appears to undernourished with visible signs of muscle/fat wasting and a BMI of 17.5 (Underweight BMI for age). Given PO intake, wt hx, and visual assessment, pt meets criteria for malnutrition per ASPEN guidelines. ABNORMAL NUTRITION-RELATED LAB VALUES LOW: cr 0.56; Ca 7.4; HIGH: Cl 112; glu 230 Est. kcal needs: 1650 kcal | 30 kcal/kg Est. Pro needs: 66 g Pro | 1.2 g Pro/kg PES STATEMENT: Inadequate oral intake (NI-2.1) related to loss of appetite as evidenced by pt interview | avg PO intake <10% meals INTERVENTION: Continue with current diet order of Regular diet. Pt may benefit from nutrition supplementation. Recommend continuation of TPN, providing 1670 kcal and 80 g Pro. This will provide pt with sufficient kcal and protein to meet estimated needs. Note pt currently on calorie count order. Please refer to Nutrition note on 12/09 with calorie count assessment. Will continue to follow and reassess as pt needs, intake, and status change. MONITOR/EVALUATE: PO Intake; Plan of Care; Hydration Status; Weight Status; Lab Values Flaco Dave, MS, RD, LD"
[2019-12-10] MEDS: NS IV 1000 ML 1,000 ML IV SCH (15:11)
--- NOTE | 2019-12-10 15:12 | NUR ---
CM/SS: Visited with pt and spouse as to plan for discharge Plan: Undetermined at this time. Spouse reports that she wants pt to go to a facility in [place], [place] not here in the [facility] Summary: Pt having issues as he continues to move from his recliner and the chair alarm keeps going off. Pt seems frustrated by this and keeps wanting to get up. Pt reminded alarm is for his safety. Pt is only able to mumble things and is not very understandable. This worker attempts to talk to pt, he is able to establish eye contact but does not seems to understand what is being said to him. He has a fork in his hand, and this worker ask pt for it. He willingly gives this worker the fork. Pt seems to get more agitated as this worker is talking with spouse. Spouse is reminded that we would like for pt to be discharged this week. Spouse reports [facility] She is given a list of providers in the [place] area that would be a placement option for pt. This worker will follow up.
[2019-12-10 16:00] VITALS: BP 169/73
--- NOTE | 2019-12-10 17:13 | Physician Query Clarification ---
"Physician Query-General Query to Physician: The medical record reflects the following clinical scenario: History/Risk factors: Chronically, ill, Delium, Recent hospitalizations Clinical Findings: UA pos for Bacteria, Urine culture Pos for Klebsiella/Enterbact Treatment: IV ABX, Vanco, Ceftriaxone, Question: What condition best reflects the above clinical scenario? Please document response in the Progress notes or Discharge Summary. 1. Urinary Tract Infection present on admission 2. Check UA (as currently documented) 3. Other , with explanation of the clinical findings 4. Clinically undetermined, no explanation for the clinical findings Please remember a lack of response to the above will prompt a phone page by CDI/coding staff In responding to this query, please exercise your independent professional judgment. The purpose of this communication is to more accurately reflect the complexity of your patients condition. The fact that a question is asked does not imply that any particular answer is desired or expected. Thank you for timely response to this clarification. Daina Koehler, MSN, RN RN Specialist-Clinical Doc Improvement CD -Health Info [facility] [address] [facility] t: [phone] | f: [phone] If you are unable to reach me at my extension, I may be working from home. Please contact me at [phone] PHYSICIAN RESPONSE: Based on the clinical findings in the record, please respond to the query above on this document as an addendum. Physician Response: Physician Response UTI PRESENT ON ADMISSION If you have questions please contact: Finisher [employer]: Ext: Thank you for your time and cooperation. Clinical [employer] Team Member/[employer]isher [employer] This is a permanent part of the medical record DAINA KOEHLER Dec 10, 2019 17:13 TITA LAINEZ MD Dec 20, 2019 12:58"
--- NOTE | 2019-12-10 17:14 | Physician Query Clarification ---
"Physician Query-General Query to Physician: The medical record reflects the following clinical scenario: History/Risk factors: Small bowel resection, Chronically Illness, poor oral intake Clinical Findings: BMI 18, Albumin 2.3, Prealbumin 9.5, Cachexia Treatment: TPN, Lab/Nutritional monitoring Question: What condition best reflects the above clinical scenario? Please document response in the Progress notes or Discharge Summary. 1. Severe Protein/Calorie malnutrition 2. Cachexia/poor oral intake (as currently documented) 3. Other , with explanation of the clinical findings 4. Clinically undetermined, no explanation for the clinical findings Please remember a lack of response to the above will prompt a phone page by CDI/coding staff In responding to this query, please exercise your independent professional judgment. The purpose of this communication is to more accurately reflect the complexity of your patients condition. The fact that a question is asked does not imply that any particular answer is desired or expected. Thank you for timely response to this clarification. Daina Koehler, MSN, RN RN Specialist-Clinical Doc Improvement CD -Health Info Mgmt Operations [address] [facility] t: [phone] | f: [phone] If you are unable to reach me at my extension, I may be working from home. Please contact me at [phone] PHYSICIAN RESPONSE: Based on the clinical findings in the record, please respond to the query above on this document as an addendum. Physician Response: Physician Response 2. Cachexia/poor oral intake (as currently documented) If you have questions please contact: Customer Development Manager: Ext: Thank you for your time and cooperation. Clinical Va Underwriter/Customer Development Manager This is a permanent part of the medical record DAINA KOEHLER Dec 10, 2019 17:14 TITA ALINEZ MD Dec 20, 2019 12:59"
[2019-12-10] MEDS: SODIUM CHLORIDE IV SCH ×11 (17:16)
[2019-12-10] MEDS: SODIUM ACETATE IV SCH ×11 (17:16)
[2019-12-10] MEDS: [UNRECOGNIZED DRUG - OTHER] IV SCH ×11 (17:16)
[2019-12-10] MEDS: QUEtiapine 25 MG (SEROquel) TAB IMMEDIATE RELEASE PO SCH (17:17)
[2019-12-10] MEDS: OLANZapine 5 MG ODT (ZyPREXA ZYDIS) PO SCH ×2 (20:26→21:00)
[2019-12-10] MEDS: HALOPERIDOL 5 MG/ML (HALDOL) VIAL IM PRN (20:38)
--- NOTE | 2019-12-10 20:38 | NUR ---
2037 Patient agitated, suspicious of staff, refusing nighttime meds. Patient believes staff is trying to harm him and his family. This RN attempted to redirect and reorient with no success. Patient kicking at staff, pulling at PICC line, throwing pillows and blankets across room. PRN Haldol administered. 2099 Patient sitting watching TV and conversing with staff sitter. Patient requesting nighttime snack. 2147 Patient refused scheduled lortab and other nighttime medications. Patient snacking on cookies brought in by . 2354 Patient becoming agitated, frequently stating he is ready to go to bed, patient stating staff is trying to keep him against his will, torture his family, making threats toward staff if they dont allow him to leave, attempting to get out of bed, pulling at PICC line. Patient redirected x3 attempts with no success. PRN geodon administered. 5 Patient resting in bed with eyes closed, respirations even and non labored, no distress noted at this time
[2019-12-10] MEDS ORDERED: WATER (STERILE) FOR INJECTION 10 ML ONE (23:42)
[2019-12-10] MEDS: ZIPRASIDONE 20 MG INJ (GEODON) VIAL IM PRN (23:56)
[2019-12-11 00:03] VITALS: BP 160/74
[2019-12-11 06:16] LABS: HEMOGLOBIN 7.3 G/DL (13.3-17.7); MEAN PLATELET VOLUME 9.1 FL (7.4-10.4); WHITE BLOOD COUNT 12.2 10^3/uL (4.3-11.0)
[2019-12-11 06:38] LABS: ALANINE AMINOTRANSFERASE 14 U/L (0-55); ALBUMIN 2.2 GM/DL (3.2-4.5); ALKALINE PHOSPHATASE 70 U/L (40-136); BILIRUBIN,TOTAL 0.3 MG/DL (0.1-1.0); BUN/CREATININE RATIO 24; CALCIUM 7.5 MG/DL (8.5-10.1); CARBON DIOXIDE 22 MMOL/L (21-32); CHLORIDE 111 MMOL/L (98-107); CREATININE SERUM 0.49 MG/DL (0.60-1.30); GFR ESTIMATED > 60; GLUCOSE 96 MG/DL (70-105); POTASSIUM 3.5 MMOL/L (3.6-5.0); SODIUM 139 MMOL/L (135-145); TOTAL PROTEIN 6.2 GM/DL (6.4-8.2)
[2019-12-11] MEDS: CYANOCOBALAMIN 1,000 MCG (VITAMIN B-12) TABLET PO SCH ×2 (06:56→07:00)
[2019-12-11] MEDS: HYDROcodone/APAP 5 MG/325 MG (LORTAB) TAB PO SCH ×4 (06:56→21:15)
[2019-12-11] MEDS: NS IV 1000 ML 1,000 ML IV SCH ×3 (06:56→21:54)
--- NOTE | 2019-12-11 07:01 | NUR ---
pt refusing to take AM medications-hydrocodone & b-12. pt denies pain at this time.
[2019-12-11 07:19] VITALS: BP 141/84
[2019-12-11] MEDS: cefTRIAXone FOR IV USE 1,000 MG in WATER (STERILE) FOR INJECTION 10 ML IV SCH (07:58)
[2019-12-11] MEDS: FERROUS SULF 325 MG (IRON) TAB PO SCH (07:58)
[2019-12-11] MEDS: LACTOBACILLUS ACIDOPHILUS (PROBIOTIC) CAPSULE PO SCH ×3 (07:58→16:55)
[2019-12-11] MEDS: FOLIC ACID 1 MG TAB PO SCH (07:59)
[2019-12-11] MEDS: FAMOTIDINE 20 MG (PEPCID) TABLET PO SCH ×2 (08:00→21:14)
[2019-12-11] MEDS: ENOXAPARIN 30 MG/0.3 ML (LOVENOX) SYR SC SCH (08:00)
[2019-12-11] MEDS: PANTOPRAZOLE 20 MG TABLET (PROTONIX) PO SCH (08:00)
[2019-12-11] MEDS: SENNA W/DOCUSATE (SENOKOT S) TABLET PO SCH ×2 (08:01→18:44)
[2019-12-11] MEDS: polyethylene glycoL POWDER 17 GM (MIRALAX) PACK PO SCH ×2 (08:01→18:44)
[2019-12-11] MEDS: MEGESTROL 40 MG (MEGACE) TAB PO SCH ×2 (08:05→21:14)
[2019-12-11] MEDS ORDERED: VANCOMYCIN 1 GM/NS 250 ML IVPB IV SCH ×2 (09:00)
--- NOTE | 2019-12-11 09:42 | Progress Note ---
Subjective Subjective Date Seen by Provider: Dec 11, 2019 Time Seen by Provider: 19:00 PT IS CONFUSED, STAFF REPORTS THAT HE WAS PRETTY COMBATIVE EARLIER TONIGHT AND RECEIVED HALDOL FOR HIS BEHAVIORS. \HE IS RELATIVELY CONFUSED AND NOT VERY INTERACTIVE TONIGHT. Review of Systems ROS Unable to Obtain: limited by confusion General: Fatigue, Malaise, Appetite (DECREASED) Gastrointestinal: Diarrhea (IMPROVING) Neurological: Weakness, Confusion Objective Exam Vital Signs Vital Signs - First Documented 12/08/19 12/08/19 16:53 17:06 Temp 36.5 Pulse 81 Resp 20 B/P (MAP) 150/82 (104) Pulse Ox 98 O2 Delivery Room Air Capillary Refill : Less Than 3 Seconds General Appearance: Chronically ill, Cachetic, Thin HEENT: PERRL/EOMI, Moist Mucous Membranes Neck: Normal Inspection, Supple Respiratory: Lungs Clear, No Respiratory Distress Cardiovascular: Regular Rate, Rhythm, No Murmur Gastrointestinal: Other (ABD pad over abdomen) Extremity: No Calf Tenderness, No Pedal Edema Neurologic/Psychiatric: Alert, Other (oriented to person) Results Lab Laboratory Tests 12/11/19 06:00: White Blood Count 12.2H, Red Blood Count 2.74L, Hemoglobin 7.3L, Hematocrit 23L, Mean Corpuscular Volume 85, Mean Corpuscular Hemoglobin 27, Mean Corpuscular Hemoglobin Concent 31L, Red Cell Distribution Width 16.2H, Platelet Count 403H, Mean Platelet Volume 9.1, Sodium Level 139, Potassium Level 3.5L, Chloride Level 111H, Carbon Dioxide Level 22, Anion Gap 6, Blood Urea Nitrogen 12, Creatinine 0.49L, Estimat Glomerular Filtration Rate > 60, BUN/Creatinine Ratio 24, Glucose Level 96, Calcium Level 7.5L, Corrected Calcium 8.9, Total Bilirubin 0.3, Aspartate Amino Transf (AST/SGOT) 19, Alanine Aminotransferase (ALT/SGPT) 14, Alkaline Phosphatase 70, Total Protein 6.2L, Albumin 2.2L Microbiology 12/09/19 Urine Culture - Preliminary, Resulted Klebsiella pneumoniae Assessment/Plan Assessment/Plan Admission Dx URINARY TRACT INFECTION CRITICAL ILLNESS MYOPATHY DELIRIUM ANOREXIA CACHEXIA SMALL BOWEL RESECTION DEMENTIA DIARRHEA FECAL INCONTINENCE URINARY INCONTINENCE Admission Status: Inpatient Order (span 2 midnights) Assessment and Plan URINARY TRACT INFECTION CRITICAL ILLNESS MYOPATHY DELIRIUM ANOREXIA CACHEXIA SMALL BOWEL RESECTION DEMENTIA DIARRHEA FECAL INCONTINENCE URINARY INCONTINENCE URINARY TRACT INFECTION - KLEBSIELLA - IV ANTIBIOTICS - MONITOR URINE CULTURE - IV ANTIBIOTIC NARROWED, WILL TRANSITION TO ORAL ANTIBIOTICS LATER. CRITICAL ILLNESS MYOPATHY - SUPPORTIVE CARE, HE CANNOT PARTICIPATE WELL WITH THERAPY DUE TO HIS DEMENTIA AND DELIRIUM, SUPPORTIVE CARE AND WE WILL NEED TO LOOK FOR A [facility] WHICH CAN TAKE HIM WITH HIS MULTIPLE NEEDS. SEE FILLING AND STAPLING MACHINE OPERATOR NOTE FROM TODAY - PTS HAS BEEN NOTIFIED OF THE NEED FOR HIM TO GO TO A [facility] ON DISCHARGE, BUT SHE HAS NOT MADE ANY MOVES TO LOOK INTO THE FACILITIES THAT SHE FINDS ACCEPTABLE FOR [place]. DELIRIUM, ANOREXIA, CACHEXIA - PT RECEIVING TPN DUE TO HIS POOR INTAKE, HE IS ALSO ON [employer] WITH MINIMAL IMPROVEMENT IN HIS APPETITE. SMALL BOWEL RESECTION WITH OPEN ABDOMINAL WOUND - WOUND CARE FOR ABDOMINAL WOUND, NOTES REPORT WOUND VAC, BUT HE HAS NOT HAD ONE ON - WILL DISCUSS WITH STAFF LATER THIS WEEK ONCE PT'S DELIRIUM AND OTHER SYMPTOMS HAVE IMPROVED. DIARRHEA WITH FECAL INCONTINENCE - SUPPORTIVE CARE, PROBIOTICS TO TRY TO DECREASE FECAL OUTPUT. URINARY INCONTINENCE - SUPPORTIVE CARE ONLY AT THIS TIME. ANEMIA - DUE TO EXTENSIVE ILLNESS, BLOOD LOSS AND POOR INTAKE, CHECKED IRON PANEL - DOES NOT REQUIRE IV IRON AT THIS TIME, TRANSFUSE IF NEEDED IF HGB DROPS BELOW 7. Clinical Quality Measures DVT/VTE Risk/Contraindication: Risk Factor Score Per Nursin RFS Level Per Nursing on Admit: 4+=Very High TITA LAINEZ MD Dec 11, 2019 09:42
[2019-12-11 10:45] VITALS: BP 151/84
[2019-12-11] MEDS ORDERED: POTASSIUM CL 10MEQ/50ML IVPB 50 ML IV SCH (11:15)
--- NOTE | 2019-12-11 11:29 | Occupational Ther Daily Note ---
OT Current Status-Daily Note Subjective Pt sitting in recliner without clothing, holding blanket and iPad to stomach. Pt whispering, unable to understand pt at that time. Sitter in room. When sitter walked out of room, pt beckoned NORRIS closer and whispered " You need to watch out for her." Pt continued to whisper and look at sitter. Mental Status/Objective Patient Orientation: Person, Confused Attachments: IV ADL-Treatment Therapy Code Descriptions/Definitions Functional [place] Measure: 0=Not Assessed/NA 4=Minimal Assistance 1=Total Assistance 5=Supervision or Setup 2=Maximal Assistance 6=Modified [place] 3=Moderate Assistance 7=Complete IndependenceSCALE: Activities may be completed with or without assistive devices. 2-Qghsnrxlhh-wmbiapu completes the activity by him/herself with no assistance fr om a helper. 5-Set-up or Clean-up Assistance-helper sets up or cleans up; patient completes activity. [place] assists only prior to or following the activity. 4-Supervision or Touching Assistance-helper provides verbal cues and/or touching/steadying and/or contact guard assistance as patient completes activity. Assistance may be provided throughout the activity or intermittently. 3-Partial/Moderate Assistance-helper does LESS THAN HALF the effort. [place] lifts, holds or supports trunk or limbs, but provides less than half the effort. 2-Substantial/Maximal Assistance-helper does MORE THAN HALF the effort. [place] lifts or holds trunk or limbs and provides more than half the effort. 8-Menarzzfa-zpkbwr does ALL the effort. Patient does none of the effort to complete the activity. Or, the assistance of 2 or more helpers is required for the patient to complete the activity. If activity was not attempted, code reason: 7-Patient Refused. 9-Not Applicable-not attempted and the patient did not perform the activity before the current illness, exacerbation or injury. 10-Not Attempted due to Environmental Limitations-(lack of equipment, weather restraints, etc.). 88-Not Attempted due to Medical Conditions or Safety Concerns. Other Treatment Attempted to get pt to complete oral care or B UE exercises. Pt stated that he would do it later. Pt declined to complete any tasks. Encouraged pt to participate and pt continued to state later. After therapy, pt sitting in recliner with sitter and safety measures in place. All needs met in room. OT Short Term Goals Short Term Goals Time Frame: Dec 16, 2019 Eatin Oral hygiene: 3 Toileting hygiene: 2 OT Bullet Assembly Press Operator Goals Bullet Assembly Press Operator Goals Time Frame: Dec 23, 2019 Eating (QC): 4 Oral Hygiene (QC): 4 Toileting Hygiene (QC): 3 Additional Goals: 1-Demonstrate ADL Tasks, 2-Verbalize Understanding, 3- ImproveStrength/[place] 1=Demonstrate adherence to instructed precautions during ADL tasks. 2=Patient will verbalize/demonstrate understanding of assistive devices/mo difications for ADL. 3=Patient will improve strength/tolerance for activity to enable patient to perform ADL's. OT Education/Plan Problem List/Assessment Assessment: Decreased Activ Tolerance, Decreased Safety Aware, Impaired Cognition, Impaired Self-Care Skills Discharge Recommendations Plan/Recommendations: Continue POC Treatment Plan/Plan of Care Patient would benefit from OT for education, treatment and training to promote independence in ADL's, mobility, safety and/or upper extremity function for ADL's. Plan of Care: ADL Retraining, Functional Mobility, UE Funct Exercise/Act Treatment Duration: Dec 23, 2019 Frequency: 5 times per week Estimated Hrs Per Day: .25 hour per day Agreement: Yes Rehab Potential: Guarded Time/GCodes Start Time: 10:51 Stop Time: 11:05 Total Time Billed (hr/min): 8 Billed Treatment Time 1 visit-refused treatment FATOUMATA DEL REAL Dec 11, 2019 11:29
[2019-12-11] MEDS: POTASSIUM CL 10MEQ/50ML IVPB 50 ML IV SCH ×4 (11:52→15:23)
--- NOTE | 2019-12-11 11:59 | Physical Therapy Daily Note ---
PT Daily Note-Current Subjective Pt agrees to PT with encouragement and gentle guidance. Pt live sitter present, nurse present for assistance with IV pole and encouragement to participate with therapy. Mental Status Patient Orientation: Confused Attachments: IV Transfers SCALE: Activities may be completed with or without assistive devices. 3-Shokqinxyx-bpgoipa completes the activity by him/herself with no assistance from a helper. 5-Set-up or Clean-up Assistance-helper sets up or cleans up; patient completes activity. [place] assists only prior to or following the activity. 4-Supervision or Touching Assistance-helper provides verbal cues and/or touching/steadying and/or contact guard assistance as patient completes activity. Assistance may be provided throughout the activity or intermittently. 3-Partial/Moderate Assistance-helper does LESS THAN HALF the effort. [place] lifts, holds or supports trunk or limbs, but provides less than half the effort. 2-Substantial/Maximal Assistance-helper does MORE THAN HALF the effort. [place] lifts or holds trunk or limbs and provides more than half the effort. 1-Hifotsweu-fmfuoj does ALL the effort. Patient does none of the effort to complete the activity. Or, the assistance of 2 or more helpers is required for the patient to complete the activity. If activity was not attempted, code reason: 7-Patient Refused. 9-Not Applicable-not attempted and the patient did not perform the activity before the current illness, exacerbation or injury. 10-Not Attempted due to Environmental Limitations-(lack of equipment, weather restraints, etc.). 88-Not Attempted due to Medical Conditions or Safety Concerns. Min-mod A for transfers sit<->stand from bedside chair. Weight Bearing Right Lower Extremity: Right Full Weight Bearing Left Lower Extremity: Left Full Weight Bearing Gait Training Gait Assistive Device: FWW Pt amb with FWW and Min-Mod A for balance due to scissor gait, retroplusivity and poor righting reaction. Pt amb x 154ft with assist of 2 persons, f/u IV pole. Assessment Current Status: Fair Progress Pt agreeable and compliant with gentle guidance and encouragement. Initially distracted, no agitation this date. Pt dependent for transfers and safe ambulation. Poor balance at this time due to scissor gait and occasional tangling of feet. Pt back to recliner with legs elevated and call light in lap. Live sitter present. PT Short Term Goals Short Term Goals Time Frame: Dec 16, 2019 Roll Left & Right: 6 Sit to lyin Lying to sitting on side of be: 5 Sit to stand: 5 Chair/rux-iw-idpbb transfer: 5 PT Chcf Goals Chcf Goals PT Mechanical Drawing Teacher Goals Time Frame: Dec 23, 2019 Roll Left & Right (QC): 6 Sit to Lying (QC): 6 Lying-Sitting on Side/Bed(QC): 6 Sit to Stand (QC): 5 Chair/Fgs-tv-Hgwjg Xfer(QC): 5 Toilet Transfer (QC): 5 Car Transfer (QC): 5 Does the Patient Walk: No and Walking Goal IS indicated Walk 10 feet (QC): 5 Walk 50ft with 2 Turns (QC): 5 Walk 150 ft (QC): 5 Walking 10ft on Uneven Surface: 4 1 Step (curb) (QC): 4 Does the Pt use WC or Scooter?: No Type: N/A Type: N/A PT Plan Treatment/Plan Treatment Plan: Continue Plan of Care Treatment Plan: Bed Mobility, Education, Functional Activity [place], Functional Strength, Group Therapy, Gait, Safety, Therapeutic Exercise, Transfers Treatment Duration: Dec 23, 2019 Frequency: 6 times per week Estimated Hrs Per Day: .25 hour per day Patient and/or Family Agrees t: Yes Time/GCodes Time In: 1130 Time Out: 1142 Total Billed Treatment Time: 12 Total Billed Treatment 1, gait 12min ROBERTO ROCKWELL CPTA Dec 11, 2019 11:59
[2019-12-11] MEDS: HALOPERIDOL 5 MG/ML (HALDOL) VIAL IM PRN ×2 (13:10→18:51)
[2019-12-11 15:30] VITALS: BP 158/79
--- NOTE | 2019-12-11 15:36 | Speech Therapy Daily Note ---
Speech Daily Progress Note Subjective Date Seen by Provider: Dec 11, 2019 Time Seen by Provider: 00:15 Patient sitting in his recliner with sitter present. Objective Patient answered simple y/n questions related to self at 50%. Patient noted to be confused with frequent redirection needed. Patient didn't become agitated this date. Assessment Assessment Current Status: Poor Progress Treatment Plan Continue Plan of Care Speech Short Term Goals Short Term Goals Short Term Goals 1) Patient will completed memory tasks related to his daily needs at 80% or greater with minimal cues. 2) Patient will completed safety awareness tasks related to his daily needs at 80% or greater with minimal cues. 3) Patient will completed problem solving tasks related to his daily needs at 80% or greater with minimal cues. Speech Senior Naval Parachutist Goals Longterm Goals Patient will improve cognitive-communication necessary for safety and daily living tasks with minimal assist. Speech-Plan Patient/Family Goals Patient/Family Goals: Patient's discharge situation is unknown at this time. Treatment Plan Speech Therapy Treatment Plan: Continue Plan of Care Treatment Duration: Dec 20, 2019 Frequency: 4 times per week (Patient will receive skilled ST 4-5x per week.) Estimated Hrs Per Day: .25 hour per day Rehab Potential: Guarded Barriers to Learning: Patient's level of confusion Pt/Family Agrees to Plan: Yes Safety Risks/Education Teaching Recipient: Patient Teaching Methods: Discussion Response to Teaching: Reinforcement Needed Education Topics Provided: Safety within his room. Time Speech Therapy Time In: 11:35 Speech Therapy Time Out: 11:50 Total Billed Time: 15 Billed Treatment Time 1, JAE Valdes Dec 11, 2019 15:36
--- NOTE | 2019-12-11 16:27 | NUR ---
CM/SS: Visited with spouse as to plan for discharge for pt and to follow up as to her making calls to facilities in the [place], [place] area for placement of pt Plan: Undetermined at this time - pt is unable to return home at this time as he is needing a higher level of care and is unable to be managed by spouse n the home Summary: Spouse reports that she did not call any of the facilities, as [facility] She would like [facility] to provide in home care. She is encouraged to call as pt will need a plan for discharge by the end of the week and today is Monday. She verbalizes understanding and states that she has not talked with the doctor. This worker reiterates that it is the goal of doctor for pt to be able to discharge by the end of the week. Spouse is encouraged to make contact so that we can get a plan for pt. Pt continues to have issues issues with his behavior. He is writing on a clip board. It is unclear as to what he is writing. He is able to speak to this worker on today, and smile. This worker will follow up.
[2019-12-11] MEDS: [UNRECOGNIZED DRUG - OTHER] IV SCH ×10 (16:54)
[2019-12-11] MEDS: SODIUM PHOSPHATE IV SCH ×10 (16:54)
[2019-12-11] MEDS: SODIUM ACETATE IV SCH ×10 (16:54)
[2019-12-11] MEDS: QUEtiapine 25 MG (SEROquel) TAB IMMEDIATE RELEASE PO SCH (16:54)
[2019-12-11] MEDS: POTASSIUM CHLORIDE IV SCH ×10 (16:54)
[2019-12-11] MEDS ORDERED: POTASSIUM CHLORIDE IV SCH ×20 (17:00)
[2019-12-11] MEDS ORDERED: [UNRECOGNIZED DRUG - OTHER] IV SCH ×20 (17:00)
[2019-12-11] MEDS ORDERED: SODIUM ACETATE IV SCH ×20 (17:00)
[2019-12-11] MEDS ORDERED: SODIUM PHOSPHATE IV SCH ×20 (17:00)
[2019-12-11] MEDS ORDERED: LOSARTAN 25 MG (COZAAR) TAB PO ONE (20:45)
[2019-12-11] MEDS: OLANZapine 5 MG ODT (ZyPREXA ZYDIS) PO SCH (21:14)
[2019-12-12 00:07] VITALS: BP 150/73
[2019-12-12] MEDS: HYDROcodone/APAP 5 MG/325 MG (LORTAB) TAB PO SCH ×3 (06:05→21:05)
[2019-12-12] MEDS: CYANOCOBALAMIN 1,000 MCG (VITAMIN B-12) TABLET PO SCH (06:05)
[2019-12-12 06:33] LABS: BASOPHILS % (AUTO) 0 % (0-10); EOSINOPHILS # (AUTO) 0.3 10^3/uL (0.0-0.3); EOSINOPHILS % (AUTO) 2 % (0-10); HEMATOCRIT 25 % (40-54); HEMOGLOBIN 7.7 G/DL (13.3-17.7); LYMPHOCYTES # (AUTO) 3.3 X 10^3 (1.0-4.0); LYMPHOCYTES % (AUTO) 28 % (12-44); MEAN CORPUSCULAR HEMOGLOBIN 27 PG (25-34); MEAN CORPUSCULAR HGB CONC 31 G/DL (32-36); MEAN CORPUSCULAR VOLUME 86 FL (80-99); MEAN PLATELET VOLUME 9.5 FL (7.4-10.4); MONOCYTES # (AUTO) 0.6 X 10^3 (0.0-1.0); MONOCYTES % (AUTO) 5 % (0-12); NEUTROPHILS # (AUTO) 7.7 X 10^3 (1.8-7.8); NEUTROPHILS % (AUTO) 64 % (42-75); PLATELET COUNT 423 10^3/uL (130-400); WHITE BLOOD COUNT 11.9 10^3/uL (4.3-11.0)
[2019-12-12 06:45] LABS: ALANINE AMINOTRANSFERASE 14 U/L (0-55); ALBUMIN 2.2 GM/DL (3.2-4.5); ALKALINE PHOSPHATASE 68 U/L (40-136); BILIRUBIN,TOTAL 0.3 MG/DL (0.1-1.0); BUN/CREATININE RATIO 23; CALCIUM 7.7 MG/DL (8.5-10.1); CARBON DIOXIDE 25 MMOL/L (21-32); CHLORIDE 110 MMOL/L (98-107); CREATININE SERUM 0.47 MG/DL (0.60-1.30); GFR ESTIMATED > 60; GLUCOSE 90 MG/DL (70-105); POTASSIUM 3.8 MMOL/L (3.6-5.0); SODIUM 138 MMOL/L (135-145); TOTAL PROTEIN 6.4 GM/DL (6.4-8.2)
[2019-12-12 07:01] LABS: EOSINOPHILS % (MANUAL) 5 %; LYMPHOCYTES % (MANUAL) 27 %; MONOCYTES % (MANUAL) 3 %; NEUTROPHILS % (MANUAL) 64 %
[2019-12-12 07:02] LABS: ANISOCYTOSIS MODERATE; HYPOCHROMASIA SLIGHT; NUCLEATED RED BLOOD CELLS 1
[2019-12-12 08:00] VITALS: BP 139/79
[2019-12-12] MEDS ORDERED: TROUGH ORDER-PHARMACY XX NR (08:00)
[2019-12-12] MEDS: LACTOBACILLUS ACIDOPHILUS (PROBIOTIC) CAPSULE PO SCH ×3 (08:45→16:36)
[2019-12-12] MEDS: cefTRIAXone FOR IV USE 1,000 MG in WATER (STERILE) FOR INJECTION 10 ML IV SCH (08:45)
[2019-12-12] MEDS: polyethylene glycoL POWDER 17 GM (MIRALAX) PACK PO SCH ×2 (08:45→20:30)
[2019-12-12] MEDS: SENNA W/DOCUSATE (SENOKOT S) TABLET PO SCH ×2 (08:45→20:30)
[2019-12-12] MEDS: MEGESTROL 40 MG (MEGACE) TAB PO SCH ×2 (08:45→20:30)
[2019-12-12] MEDS: FERROUS SULF 325 MG (IRON) TAB PO SCH (08:45)
[2019-12-12] MEDS: LOSARTAN 25 MG (COZAAR) TAB PO SCH (08:46)
[2019-12-12] MEDS: PANTOPRAZOLE 20 MG TABLET (PROTONIX) PO SCH (08:46)
[2019-12-12] MEDS: FOLIC ACID 1 MG TAB PO SCH (08:46)
[2019-12-12] MEDS: FAMOTIDINE 20 MG (PEPCID) TABLET PO SCH ×2 (08:46→20:30)
--- NOTE | 2019-12-12 10:00 | Occupational Ther Daily Note ---
OT Current Status-Daily Note Subjective Pt awake, lying in bed. Pt would only shrug shoulders to questions or say whatever. Mental Status/Objective Patient Orientation: Person ADL-Treatment Attempted to get pt to wash face and complete oral care. Handed pt oral swab to cleanse mouth, pt would not move hand to cleanse mouth. Attempted to complete with hand over hand, pt resisted movement. Asked if pt wanted NORRIS to complete task, pt just stared at NORRIS then closed eyes. Nrsg tech entered room and pt allowed tech to complete task. NORRIS then place warm wash cloth in pt's hand and pt just held it there. Tech then washed pt's face. Attempted to hand pt dentures and pt would not take them. Tech then attempted to place dentures in pt's mouth, pt clamped lips together and did not allow dentures to be placed. After session, nrsg in room to change briefs and dressing. All needs met in room. Therapy Code Descriptions/Definitions Functional [place] Measure: 0=Not Assessed/NA 4=Minimal Assistance 1=Total Assistance 5=Supervision or Setup 2=Maximal Assistance 6=Modified [place] 3=Moderate Assistance 7=Complete IndependenceSCALE: Activities may be completed with or without assistive devices. 2-Nbelfituux-hmaspeg completes the activity by him/herself with no assistance from a helper. 5-Set-up or Clean-up Assistance-helper sets up or cleans up; patient completes activity. [place] assists only prior to or following the activity. 4-Supervision or Touching Assistance-helper provides verbal cues and/or touching/steadying and/or contact guard assistance as patient completes activity. Assistance may be provided throughout the activity or intermittently. 3-Partial/Moderate Assistance-helper does LESS THAN HALF the effort. [place] lifts, holds or supports trunk or limbs, but provides less than half the effort. 2-Substantial/Maximal Assistance-helper does MORE THAN HALF the effort. [place] lifts or holds trunk or limbs and provides more than half the effort. 2-Ycflumrzb-jqgoxw does ALL the effort. Patient does none of the effort to complete the activity. Or, the assistance of 2 or more helpers is required for the patient to complete the activity. If activity was not attempted, code reason: 7-Patient Refused. 9-Not Applicable-not attempted and the patient did not perform the activity before the current illness, exacerbation or injury. 10-Not Attempted due to Environmental Limitations-(lack of equipment, weather restraints, etc.). 88-Not Attempted due to Medical Conditions or Safety Concerns. Oral Hygiene (QC): 2 OT Short Term Goals Short Term Goals Time Frame: Dec 16, 2019 Eatin Oral hygiene: 3 Toileting hygiene: 2 OT Horticulture Professor Goals M[facility] Goals Time Frame: Dec 23, 2019 Eating (QC): 4 Oral Hygiene (QC): 4 Toileting Hygiene (QC): 3 Additional Goals: 1-Demonstrate ADL Tasks, 2-Verbalize Understanding, 3- ImproveStrength/[place] 1=Demonstrate adherence to instructed precautions during ADL tasks. 2=Patient will verbalize/demonstrate understanding of assistive devices/modifications for ADL. 3=Patient will improve strength/tolerance for activity to enable patient to perform ADL's. OT Education/Plan Problem List/Assessment Assessment: Decreased Activ Tolerance, Decreased Safety Aware, Impaired Cognition, Impaired Coordination, Impaired Funct Balance, Impaired I ADL's, Impaired Self-Care Skills Discharge Recommendations Plan/Recommendations: Continue POC Treatment Plan/Plan of Care Patient would benefit from OT for education, treatment and training to promote independence in ADL's, mobility, safety and/or upper extremity function for ADL's. Plan of Care: ADL Retraining, Functional Mobility, UE Funct Exercise/Act Treatment Duration: Dec 23, 2019 Frequency: 5 times per week Estimated Hrs Per Day: .25 hour per day Agreement: Yes Rehab Potential: Guarded Time/GCodes Start Time: 09:43 Stop Time: 09:53 Total Time Billed (hr/min): 10 Billed Treatment Time 1 visit-FA 1 (10 min) FATOUMATA DEL REAL Dec 12, 2019 10:00
--- NOTE | 2019-12-12 10:39 | Physical Therapy Daily Note ---
PT Daily Note-Current Subjective Patient is in bed with telesitter and live sitter due to confusion and agitation. Mental Status Patient Orientation: Confused Attachments: Central Line Transfers SCALE: Activities may be completed with or without assistive devices. 0-Jtxcvrbsmm-tqbcqyw completes the activity by him/herself with no assistance from a helper. 5-Set-up or Clean-up Assistance-helper sets up or cleans up; patient completes activity. Clinton assists only prior to or following the activity. 4-Supervision or Touching Assistance-helper provides verbal cues and/or touching/steadying and/or contact guard assistance as patient completes activity. Assistance may be provided throughout the activity or intermittently. 3-Partial/Moderate Assistance-helper does LESS THAN HALF the effort. Clinton lifts, holds or supports trunk or limbs, but provides less than half the effort. 2-Substantial/Maximal Assistance-helper does MORE THAN HALF the effort. Clinton lifts or holds trunk or limbs and provides more than half the effort. 6-Pqolrtjrb-ywlpcr does ALL the effort. Patient does none of the effort to complete the activity. Or, the assistance of 2 or more helpers is required for the patient to complete the activity. If activity was not attempted, code reason: 7-Patient Refused. 9-Not Applicable-not attempted and the patient did not perform the activity before the current illness, exacerbation or injury. 10-Not Attempted due to Environmental Limitations-(lack of equipment, weather restraints, etc.). 88-Not Attempted due to Medical Conditions or Safety Concerns. Roll Left & Right (QC): 5 Sit to Lying (QC): 5 Lying to Sitting/Side of Bed(Q: 5 Sit to Stand (QC): 2 Chair/Zxv-xh-Prvaw Xfer(QC): 2 Toilet Transfer (QC): 2 Patient is severely retropulsive and leaning to right. Patient incontinent BM requiring dependent assist to cleanse and change. Weight Bearing Right Lower Extremity: Right Full Weight Bearing Left Lower Extremity: Left Full Weight Bearing Gait Training Does the Patient Walk?: Yes Distance: 300' Walk 10 feet (QC): 2 Walk 50 ft with 2 Turns(QC): 2 Walk 150 ft (QC): 2 Gait Persons Needed: 2 Gait Assistive Device: FWW severe scissor gait sequence with lean to right with inability to self correct and PT correcting. SBA of second person for safety and IV pole Assessment Patient returned to bed with needs met, 4 rails up and bed alarm activated with sitter present. Patient continues to remain dependent to toilet, he is incontinent, retropulsive, and unable to safely care for self or be left unattended. From a PT standpoint, patient will require extended care facility for patient safety and to address needs. 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 Long-Term Goals PT Long-Term Goals Time Frame: Dec 23, 2019 Roll Left & Right (QC): 6 Sit to Lying (QC): 6 Lying-Sitting on Side/Bed(QC): 6 Sit to Stand (QC): 5 Chair/Crc-ga-Ymbfe Xfer(QC): 5 Toilet Transfer (QC): 5 Car Transfer (QC): 5 Does the Patient Walk: No and Walking Goal IS indicated Walk 10 feet (QC): 5 Walk 50ft with 2 Turns (QC): 5 Walk 150 ft (QC): 5 Walking 10ft on Uneven Surface: 4 1 Step (curb) (QC): 4 Does the Pt use WC or Scooter?: No Type: N/A Type: N/A PT Plan Treatment/Plan Treatment Plan: Continue Plan of Care Treatment Plan: Bed Mobility, Education, Functional Activity W[place]o, Functional Strength, Group Therapy, Gait, Safety, Therapeutic Exercise, Transfers Treatment Duration: Dec 23, 2019 Frequency: 6 times per week Estimated Hrs Per Day: .25 hour per day Patient and/or Family Agrees t: Yes Time/GCodes Time In: 1006 Time Out: 1030 Total Billed Treatment Time: 24 Total Billed Treatment 1 visit FA 10 min GT 14 min ANSLEY ARCE PT Dec 12, 2019 10:39
[2019-12-12] MEDS: ENOXAPARIN 30 MG/0.3 ML (LOVENOX) SYR SC SCH (11:08)
[2019-12-12 12:00] VITALS: BP 152/80
--- NOTE | 2019-12-12 12:04 | NUR ---
CM/SS: Telephone call to Colette, spouse [phone] - she reports she is driving and can not talk at this time. She reports she has a doctors appt. at 1:15pm and she will plan to be at the hospital after that around 2:30pm
--- NOTE | 2019-12-12 13:01 | NUR ---
"CALORIE COUNT Est kcal needs: 1650 kcal | 30 kcal/kg Est Pro needs: 66 g Pro | 1.2 g Pro/kg Note pt currently on TPN, providing 1670 kcal (30 kcal/kg); 80 g Pro (1.4 g Pro/kg). This currently provides sufficient kcal (101%) and protein (121%) to meet pt's nutritional needs 11/28: 478 kcal (27% of est needs) | 14 g Pro (19% of est needs) 11/29: 358 kcal (20% of est needs) | 4 g Pro (1% of est needs) 11/30: 514 kcal (29% of est needs) | 11 g Pro (15% of est needs) 12/01: 343 kcal (19% of est needs) | 11 g Pro (15% of est needs) | Note: Pt refused B and L trays, per chart review. 12/02: 164 kcal (9% of est needs) | 5 g Pro (7% of est needs) 12/03: 1111 kcal (61% of est needs) | 33 g Pro (46% of est needs) 12/04: 435 kcal (24% of est needs) | 24 g Pro (33% of est needs) 12/05: 135 kcal (8% of est needs) | 15 g Pro (22% of est needs) 12/06: 1491 kcal (90% of est needs) | 47 g Pro (71% of est needs) 12/07: No record of meals consumed 12/08: 113 kcal (7% of est needs) | 6 g Pro (9% of est needs) 12/09: No record of meals consumed 12/10: 627 kcal (38% of est needs) | 33 g Pro (50% of est needs) Would recommend continuation of TPN to provide nutritional needs for pt. Would recommend nutrition supplementation to improve kcal intake. Encouraged pt to eat when able. Will continue to follow and reassess as pt needs, intake, and status change. Flaco Dave, MS, RD, LD [phone] (cell)"
[2019-12-12] MEDS: NS IV 1000 ML 1,000 ML IV SCH (13:13)
--- NOTE | 2019-12-12 13:52 | Progress Note ---
Subjective Date Seen by a Provider: Dec 12, 2019 Time Seen by a Provider: 13:35 Subjective/Events-last exam Patient seen with Dr. Anthony. Patient lying in bed resting watching TV. Denied any abdominal pain. Having BMs. Tolerating some food. RN reports that dressing changed on wound and wound bed is pink and moist with no signs of infection. Objective Exam Vital Signs Date Time Temp Pulse Resp B/P (MAP) Pulse Ox O2 Delivery O2 Flow Rate FiO2 12/12/19 08:01 Room Air 12/12/19 08:00 36.0 71 16 139/79 (99) 98 Room Air 12/12/19 00:07 37.0 77 20 150/73 (98) 96 Room Air 12/11/19 19:20 Room Air 12/11/19 15:30 36.3 73 20 158/79 (105) 92 Room Air I & O 12/12/19 07:00 Intake Total 2275 ml Output Total 650 ml Balance 1625 ml Capillary Refill : Less Than 3 Seconds General Appearance: No Apparent Distress, Thin Respiratory: No Accessory Muscle Use, No Respiratory Distress Cardiovascular: Regular Rate, Rhythm, No Edema Gastrointestinal: normal bowel sounds, non tender, soft, other (Abdominal dressing C/D/I) Neurologic/Psychiatric: Alert, Other (Patient still confused.) Skin: Normal Color, Warm/Dry Results Lab Laboratory Tests 12/12/19 06:15: White Blood Count 11.9H, Red Blood Count 2.89L, Hemoglobin 7.7L, Hematocrit 25L, Mean Corpuscular Volume 86, Mean Corpuscular Hemoglobin 27, Mean Corpuscular Hemoglobin Concent 31L, Red Cell Distribution Width 16.7H, Platelet Count 423H, Mean Platelet Volume 9.5, Neutrophils (%) (Auto) 64, Lymphocytes (%) (Auto) 28, Monocytes (%) (Auto) 5, Eosinophils (%) (Auto) 2, Basophils (%) (Auto) 0, Ne utrophils # (Auto) 7.7, Lymphocytes # (Auto) 3.3, Monocytes # (Auto) 0.6, Eosinophils # (Auto) 0.3, Basophils # (Auto) 0.0, Neutrophils % (Manual) 64, Lymphocytes % (Manual) 27, Monocytes % (Manual) 3, Eosinophils % (Manual) 5, Nucleated Red Blood Cells 1, Hypochromasia SLIGHT, Basophilic Stippling SLIGHT, Anisocytosis MODERATE, Sodium Level 138, Potassium Level 3.8, Chloride Level 110H, Carbon Dioxide Level 25, Anion Gap 3L, Blood Urea Nitrogen 11, Creatinine 0.47L, Estimat Glomerular Filtration Rate > 60, BUN/Creatinine Ratio 23, Glucose Level 90, Calcium Level 7.7L, Corrected Calcium 9.1, Magnesium Level 2.0, Total Bilirubin 0.3, Aspartate Amino Transf (AST/SGOT) 22, Alanine Aminotransferase (ALT/SGPT) 14, Alkaline Phosphatase 68, Total Protein 6.4, Albumin 2.2L 12/12/19 12:10: Vancomycin Level Trough 2.2L Microbiology 12/09/19 Urine Culture - Final, Complete Klebsiella pneumoniae Assessment/Plan Assessment/Plan Assess & Plan/Chief Complaint s/p exploratory laparotomy, lysis of adhesions, small bowel resection. VSS WBC 11.9 continue to encourage PO. cont PT/OT to improve ADL's. continue wet to dry dressing change. Continue medical management Clinical Quality Measures DVT/VTE Risk/Contraindication: Risk Factor Score Per Nursin RFS Level Per Nursing on Admit: 4+=Very High MIGUEL VELASQUEZ IT SYSTEMS ENGINEER Dec 12, 2019 13:52
--- NOTE | 2019-12-12 14:48 | Speech Therapy Daily Note ---
Speech Daily Progress Note Subjective Date Seen by Provider: Dec 12, 2019 Time Seen by Provider: 00:15 Patient resting in bed with telesitter present. Patient watching television. Objective Patient answered simple questions related to self with yes/no answers. Patient noted to mumble intermittently during the session. Assessment Assessment Current Status: Fair Progress Treatment Plan Continue Plan of Care Speech Short Term Goals Short Term Goals Short Term Goals 1) Patient will completed memory tasks related to his daily needs at 80% or greater with minimal cues. 2) Patient will completed safety awareness tasks related to his daily needs at 80% or greater with minimal cues. 3) Patient will completed problem solving tasks related to his daily needs at 80% or greater with minimal cues. Speech Detention Goals Detention Goals Patient will improve cognitive-communication necessary for safety and daily living tasks with minimal assist. Speech-Plan Patient/Family Goals Patient/Family Goals: Patient's discharge plan is unclear at this time due to patient's level of confusion and increase in daily needs assistance. Treatment Plan Speech Therapy Treatment Plan: Continue Plan of Care Treatment Duration: Dec 20, 2019 Frequency: 4 times per week (Patient will receive skilled ST 4-5x per week.) Estimated Hrs Per Day: .25 hour per day Rehab Potential: Guarded Barriers to Learning: Patient's confusion, combativeness Pt/Family Agrees to Plan: Yes Safety Risks/Education Teaching Recipient: Patient Teaching Methods: Discussion Response to Teaching: Reinforcement Needed Education Topics Provided: Continued safety Time Speech Therapy Time In: 08:10 Speech Therapy Time Out: 08:25 Total Billed Time: 15 Billed Treatment Time 1, JAE Valdes Dec 12, 2019 14:48
[2019-12-12 16:25] VITALS: BP 143/80
[2019-12-12] MEDS: SODIUM PHOSPHATE IV SCH ×10 (16:36)
[2019-12-12] MEDS: SODIUM ACETATE IV SCH ×10 (16:36)
[2019-12-12] MEDS: QUEtiapine 25 MG (SEROquel) TAB IMMEDIATE RELEASE PO SCH (16:36)
[2019-12-12] MEDS: [UNRECOGNIZED DRUG - OTHER] IV SCH ×10 (16:36)
[2019-12-12] MEDS: POTASSIUM CHLORIDE IV SCH ×10 (16:36)
--- NOTE | 2019-12-12 17:43 | NUR ---
CM/SS: Visited with spouse as to plan for discharge Plan: Undetermined at this time. Spouse has requested that a referral be made to [facility] for pt. Upon further discovery she wants pt to be considered for the hospital in patient rehab unit at [facility] Summary: Referral sent to [facility] per spouse request - Sera phone [phone], fax [phone]. Information sent. Talked with Sera - she will review and get back with this worker. She is not sure pt will meet criteria. Talked with spouse about the referral being to inpatient rehab at [facility]. Discuss with her pt needing a higher level of care. Visited with spouse for 30 plus minutes and discussed plan for pt. She reports the the [facility] in [place], [place] is an option as well. Spouse is frustrated with the fact that pt can not return to in patient rehab here at the hospital. She wants this worker to make sure he can not return. This worker will follow up. She is reminded that pt needs more care. Spouse is also reminded that pt was to leave on tomorrow, as we had discussed earlier in the week. She reports she did not call any of the facilities on the list that was given to her as she wont be able to visit there. She is reminded of our previous conversation. She is reminded that pt can not stay here forever. She plans to talk with pt's son chepe. She is encouraged to have another facility in mind if [facility] inpatient rehab declines. She reports she will. This worker asked her how she is doing with everything. She reports she believes in God and she is going to be ok, and she wants what is best for pt. This worker tries to educate on the things pt has been through. Spouse can only talk about getting the pt home. She is again reminded about going to a facility based on the level of care needed. She then reports she really does not want that as she will not be able to visit. This worker again reminds her of level of care needed. She is asked to talk with son and have another option or two as to where pt can be referred. This worker educates her on allowing her to make the choices. If she is not going to make the choices then referrals can be made to get pt placed. She reports she will think about it and should be at the hospital by 10 am. She is also reminded that pt was to leave by the end of the week. She reports she should have more information for this worker on tomorrow. Discussed Medicare days and meeting ambar pitts in the hospital. She reports a brother mentioned that to her as well. This worker will follow up.
[2019-12-12] MEDS: OLANZapine 5 MG ODT (ZyPREXA ZYDIS) PO SCH (20:30)
[2019-12-12 23:42] VITALS: BP 133/79
[2019-12-13] MEDS: NS IV 1000 ML 1,000 ML IV SCH ×2 (03:05→14:55)
[2019-12-13 04:44] VITALS: BP 144/76
[2019-12-13] MEDS: CYANOCOBALAMIN 1,000 MCG (VITAMIN B-12) TABLET PO SCH (05:41)
[2019-12-13] MEDS: HYDROcodone/APAP 5 MG/325 MG (LORTAB) TAB PO SCH ×3 (05:41→23:09)
[2019-12-13 06:29] LABS: BASOPHILS # (AUTO) 0.1 10^3/uL (0.0-0.1); BASOPHILS % (AUTO) 0 % (0-10); EOSINOPHILS # (AUTO) 0.3 10^3/uL (0.0-0.3); EOSINOPHILS % (AUTO) 2 % (0-10); HEMATOCRIT 26 % (40-54); HEMOGLOBIN 7.9 G/DL (13.3-17.7); LYMPHOCYTES # (AUTO) 3.6 X 10^3 (1.0-4.0); LYMPHOCYTES % (AUTO) 29 % (12-44); MEAN CORPUSCULAR HEMOGLOBIN 26 PG (25-34); MEAN CORPUSCULAR HGB CONC 31 G/DL (32-36); MEAN CORPUSCULAR VOLUME 86 FL (80-99); MEAN PLATELET VOLUME 9.4 FL (7.4-10.4); MONOCYTES # (AUTO) 0.8 X 10^3 (0.0-1.0); MONOCYTES % (AUTO) 6 % (0-12); NEUTROPHILS # (AUTO) 7.9 X 10^3 (1.8-7.8); NEUTROPHILS % (AUTO) 63 % (42-75); PLATELET COUNT 453 10^3/uL (130-400); WHITE BLOOD COUNT 12.6 10^3/uL (4.3-11.0)
[2019-12-13 06:43] LABS: ALBUMIN 2.3 GM/DL (3.2-4.5); CHLORIDE 108 MMOL/L (98-107); POTASSIUM 4.1 MMOL/L (3.6-5.0); SODIUM 137 MMOL/L (135-145)
[2019-12-13 06:45] LABS: GLUCOSE 91 MG/DL (70-105)
[2019-12-13 06:46] LABS: TOTAL PROTEIN 6.6 GM/DL (6.4-8.2)
[2019-12-13 06:47] LABS: BILIRUBIN,TOTAL 0.3 MG/DL (0.1-1.0); CARBON DIOXIDE 23 MMOL/L (21-32)
[2019-12-13 06:49] LABS: ALKALINE PHOSPHATASE 80 U/L (40-136); CREATININE SERUM 0.48 MG/DL (0.60-1.30); GFR ESTIMATED > 60
[2019-12-13 06:50] LABS: BUN/CREATININE RATIO 25
[2019-12-13 06:52] LABS: ALANINE AMINOTRANSFERASE 21 U/L (0-55)
[2019-12-13 06:57] LABS: BAND NEUTROPHILS 1 %; EOSINOPHILS % (MANUAL) 3 %; LYMPHOCYTES % (MANUAL) 32 %; MONOCYTES % (MANUAL) 4 %; NEUTROPHILS % (MANUAL) 60 %
[2019-12-13 06:58] LABS: ANISOCYTOSIS SLIGHT; HYPOCHROMASIA MODERATE; MICROCYTOSIS SLIGHT
[2019-12-13 08:00] VITALS: BP 131/87
--- NOTE | 2019-12-13 08:13 | Progress Note ---
Subjective Subjective Date Seen by Provider: Dec 13, 2019 Time Seen by Provider: 07:40 PT REMAINS CONFUSED AND CHALLENGING TO COMMUNICATE WITH. HE SAYS HE ISN'T FEELING ANY BETTER TODAY AND DOSNT HAVE ANY QUESTIONS OR CONCERNS RIGHT NOW. HE'S NOT SURE WHEN HIS LAST BOWEL MOVEMENT WAS. PT WAS WAS UNRESPONSIVE TO HALF OF QUESTIONS. Review of Systems ROS Unable to Obtain: limited by confusion General: Fatigue, Malaise, Appetite (DECREASED) Pulmonary: Other (NO COUGH, CONGESTION) Cardiovascular: Other (NO CHEST PAIN OR SHORTNESS OF BREATH , DOES NOT REALLY EXERT HIMSELF WITH ANY ACTIVITY); No: Chest Pain Gastrointestinal: No: Abdominal Pain Genitourinary: Other (URINARY INCONTINENCE) Neurological: Weakness, Confusion Objective Exam Vital Signs Vital Signs - First Documented 12/08/19 12/08/19 16:53 17:06 Temp 36.5 Pulse 81 Resp 20 B/P (MAP) 150/82 (104) Pulse Ox 98 O2 Delivery Room Air Capillary Refill : Less Than 3 Seconds General Appearance: No Apparent Distress, Thin Eyes: Bilateral Eye Normal Inspection, Bilateral Eye PERRL, Bilateral Eye EOMI HEENT: PERRL/EOMI, Moist Mucous Membranes Neck: Normal Inspection, Supple Respiratory: No Accessory Muscle Use, No Respiratory Distress Cardiovascular: Regular Rate, Rhythm, No Edema Gastrointestinal: Other (ABD pad over abdomen) Extremity: No Calf Tenderness, No Pedal Edema Neurologic/Psychiatric: Alert, Disoriented, Other (Patient still confused.) Skin: Normal Color, Warm/Dry Results Lab Laboratory Tests 12/12/19 12:10: Vancomycin Level Trough 2.2L 12/13/19 06:15: White Blood Count 12.6H, Red Blood Count 2.99L, Hemoglobin 7.9L, Hematocrit 26L, Mean Corpuscular Volume 86, Mean Corpuscular Hemoglobin 26, Mean Corpuscular Hemoglobin Concent 31L, Red Cell Distribution Width 16.6H, Platelet Count 453H, Mean Platelet Volume 9.4, Neutrophils (%) (Auto) 63, Lymphocytes (%) (Auto) 29, Monocytes (%) (Auto) 6, Eosinophils (%) (Auto) 2, Basophils (%) (Auto) 0, Neutrophils # (Auto) 7.9H, Lymphocytes # (Auto) 3.6, Monocytes # (Auto) 0.8, Eosinophils # (Auto) 0.3, Basophils # (Auto) 0.1, Neutrophils % (Manual) 60, Lymphocytes % (Manual) 32, Monocytes % (Manual) 4, Eosinophils % (Manual) 3, Band Neutrophils 1, Hypochromasia MODERATE, Anisocytosis SLIGHT, Microcytosis SLIGHT, Sodium Level 137, Potassium Level 4.1, Chloride Level 108H, Carbon Dioxide Level 23, Anion Gap 6, Blood Urea Nitrogen 12, Creatinine 0.48L, Estimat Glomerular Filtration Rate > 60, BUN/Creatinine Ratio 25, Glucose Level 91, Calcium Level 8.0L, Corrected Calcium 9.4, Total Bilirubin 0.3, Aspartate Amino Transf (AST/SGOT) 31, Alanine Aminotransferase (ALT/SGPT) 21, Alkaline Phosphatase 80, Total Protein 6.6, Albumin 2.3L Microbiology 12/09/19 Urine Culture - Final, Complete Klebsiella pneumoniae Assessment/Plan Assessment/Plan 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 CRITICAL ILLNESS MYOPATHY - SUPPORTIVE CARE, HE CANNOT PARTICIPATE WELL WITH THERAPY DUE TO HIS DEMENTIA AND DELIRIUM, SUPPORTIVE CARE AND WE WILL NEED TO LOOK FOR A LONG TERM WHICH CAN TAKE HIM WITH HIS MULTIPLE NEEDS. SEE DIGITAL SALES EXECUTIVE NOTE FROM TODAY - PTS HAS BEEN NOTIFIED OF THE NEED FOR HIM TO GO TO A LONG TERM ON DISCHARGE, SHE WANTS HIM MOVED TO [facility] AND HAS MAJOR CONCERNS ABOUT NURSING HOMES HE COULDN'T BE VISITED THERE. SPOUSE SAID SHE WOULD TALK WITH SON LAST NIGHT AND WERE WAITING THE RESULT OF THERE CONSIDERATIONS TODAY. DELIRIUM, ANOREXIA, CACHEXIA - PT RECEIVING TPN DUE TO HIS POOR INTAKE, HE IS ALSO ON MAGACE WITH MINIMAL IMPROVEMENT IN HIS APPETITE. SMALL BOWEL RESECTION WITH OPEN ABDOMINAL WOUND - WOUND CARE FOR ABDOMINAL WOUND, NOTES REPORT WOUND VAC, BUT HE HAS NOT HAD ONE ON - WILL DISCUSS WITH STAFF LATER THIS WEEK ONCE PT'S DELIRIUM AND OTHER SYMPTOMS HAVE IMPROVED. DIARRHEA WITH FECAL INCONTINENCE - SUPPORTIVE CARE, PROBIOTICS TO TRY TO DECREASE FECAL OUTPUT. URINARY INCONTINENCE - SUPPORTIVE CARE ONLY AT THIS TIME. ANEMIA - DUE TO EXTENSIVE ILLNESS, BLOOD LOSS AND POOR INTAKE, CHECKED IRON PANEL NO CONCERNING TREND DECREASE AT THIS TIME. HEMOGLOBIN MOVED FROM 7.7 TO 7.9 OVER THE LAST TWO DAYS. - DOES NOT REQUIRE IV IRON AT THIS TIME, TRANSFUSE IF NEEDED IF HGB DROPS BELOW 7. Clinical Quality Measures DVT/VTE Risk/Contraindication: Risk Factor Score Per Nursin RFS Level Per Nursing on Admit: 4+=Very High Supervisory-Addendum Brief Verification & Attestation Participated in pt care: history, physical Personally performed: exam, history Care discussed with: Medical Student Procedures: n/a Results interpretation: Verified all documentation PHYSICAL EXAM AND HISTORY PERFORMED BY CHRISTOPHE PASCUAL, RE-EVAULATED BY DR LAINEZ. URINARY TRACT INFECTION CRITICAL ILLNESS MYOPATHY DELIRIUM ANOREXIA CACHEXIA SMALL BOWEL RESECTION DEMENTIA DIARRHEA FECAL INCONTINENCE URINARY INCONTINENCE URINARY TRACT INFECTION - KLEBSIELLA - IV ANTIBIOTICS - MONITOR URINE CULTURE - IV ANTIBIOTIC NARROWED COURSE TO FINISH ON 12/14. CRITICAL ILLNESS MYOPATHY - SUPPORTIVE CARE, HE CANNOT PARTICIPATE WELL WITH THERAPY DUE TO HIS DEMENTIA AND DELIRIUM, SUPPORTIVE CARE AND WE WILL NEED TO LOOK FOR A LONG TERM WHICH CAN TAKE HIM WITH HIS MULTIPLE NEEDS. SEE DIGITAL SALES EXECUTIVE NOTE FROM TODAY - PTS HAS BEEN NOTIFIED OF THE NEED FOR HIM TO GO TO A LONG TERM ON DISCHARGE, BUT SHE HAS NOT MADE ANY MOVES TO LOOK INTO THE FACILITIES THAT SHE FINDS ACCEPTABLE FOR TAMIKA. I HAVE TALKED TO GERONIMO - LEFT A MESSAGE YESTERDAY - BUT SHE DID NOT ANSWER MY CALLS. SHE HAS INDICATED THAT SHE WOULD LIKE TO "PUSH HIM HARDER" AND GET HIM TO INPATIENT REHAB HERE IN [place] OR AT [facility]. I INFORMED GERONIMO THAT [facility] IS NOT ABLE TO PARTICIPATE IN THERAPY MEANINGFULLY AND HAS NOT REALLY MADE ANY PROGRESS PHYSICALLY AND TO PUSH HIM TOO HARD WILL LEAD TO TAMIKA LOOSING MORE WEIGHT DUE TO THE ENERGY IT TAKES TO "PUSH HARD". SHE HAS INFORMED ME THAT IF HIS IS NOT ACCEPTED AT [facility] OR BACK TO INPATIENT REHAB HERE AT [facility] (WHICH I INFORMED HER HE WOULD NOT BE ACCEPTED BACK DUE TO HIS INABILITY TO PARTICIPATE) THAT SHE WOULD SEEK PLACEMENT AT THE [facility] WHERE THEY HAVE A GERIATRIC PSYCHIATRIC FACILITY. SHE REPORTS TO ME THAT SHE HAS A VERY STRONG DI THAT HE WILL BE HEALED - EVEN THOUGH I HAVE INFORMED HER OF HIS PROGRESSIVE DECLINE, HAS DR. LOFTON AND THE OTHER PHYSICIANS WHO HAVE CARED FOR TAMIKA. SHE STATES THAT "IF WORSE COMES TO WORSE" SHE WILL " TAKE HIM HOME AND CARE FOR HIM THERE SINCE I HAVE A LOT OF RESOURCES AT MY DISPOSAL". I INFORMED HER THAT I WOULD BE HESITANT TO HAVE HER TAKE HIM HOME, BECAUSE HIS CARE WILL LIKELY EXCEED HER ABILITY, AND I WOULD WORRY ABOUT HER SAFETY WITH CARING FOR HIM AND THE FACT THAT IT IS PHYSICALLY AND EMOTIONALLY EXHAUSTING, BUT SHE STATED SHE WOULD DO WHAT NEEDED TO BE DONE TO CARE FOR TAMIKA AT HOME SHOULD THAT BE WHAT IS NEEDED TO KEEP HIM OUT OF A LONG TERM. SHE ADMITTED TO ME THAT SHE WAS "DRAGGING MY FEET BECAUSE HE HAS MORE DAYS LEFT IN THE HOSPITAL AND I WANT TO USE THEM." I INFORMED GERONIMO THAT WE MUST HAVE PLAN FOR DISCHARGE ON MONDAY OF NEXT WEEK. I TOLD HER THAT SHE NEEDS TO GET WITH MAHESH - ACID TENDER - TO GET THIS PLAN SOLIDIFIED. DELIRIUM, ANOREXIA, CACHEXIA - TPN STOPPED, HE IS NOT A CANDIDATE FOR A PEG TUBE DUE TO HIS HX OF EXTENSIVE GI SURGERIES AND HE IS PULLING OUT LINES, ETC AND CANNOT SEEM TO LEAVE HIS WOUND DRESSINGS ALONE WHICH WOULD LEAD TO RISK OF PULLING OUT HIS PEG TUBE. HE IS ALSO AN ASPIRATION RISK FROM PEG TUBE DUE TO HIS GASTROPARESIS. - HE IS ALSO ON MAGACE WITH SLIGHT IMPROVEMENT IN HIS APPETITE. SMALL BOWEL RESECTION WITH OPEN ABDOMINAL WOUND - WOUND CARE FOR ABDOMINAL WOUND - IMPROVING ON WET TO DRY DRESSING CHANGES, GRANULATION TISSUE LOOKS GOOD AT WOUND BASE. DIARRHEA WITH FECAL INCONTINENCE - SUPPORTIVE CARE, PROBIOTICS TO TRY TO DECREASE FECAL OUTPUT. URINARY INCONTINENCE - SUPPORTIVE CARE ONLY AT THIS TIME. ANEMIA - DUE TO EXTENSIVE ILLNESS, BLOOD LOSS AND POOR INTAKE, CHECKED IRON PANEL - DOES NOT REQUIRE IV IRON AT THIS TIME. CELIA PASCUAL MED STUDENT Dec 13, 2019 08:13 TITA LAINEZ MD Dec 13, 2019 11:03
[2019-12-13] MEDS: MEGESTROL 40 MG (MEGACE) TAB PO SCH ×2 (08:50→21:14)
[2019-12-13] MEDS: PANTOPRAZOLE 20 MG TABLET (PROTONIX) PO SCH (08:50)
[2019-12-13] MEDS: FOLIC ACID 1 MG TAB PO SCH (08:50)
[2019-12-13] MEDS: LACTOBACILLUS ACIDOPHILUS (PROBIOTIC) CAPSULE PO SCH ×3 (08:50→17:01)
[2019-12-13] MEDS: FAMOTIDINE 20 MG (PEPCID) TABLET PO SCH ×2 (08:50→21:14)
[2019-12-13] MEDS: FERROUS SULF 325 MG (IRON) TAB PO SCH (08:50)
[2019-12-13] MEDS: SENNA W/DOCUSATE (SENOKOT S) TABLET PO SCH ×2 (08:51→21:14)
[2019-12-13] MEDS: LOSARTAN 25 MG (COZAAR) TAB PO SCH (08:51)
[2019-12-13] MEDS: polyethylene glycoL POWDER 17 GM (MIRALAX) PACK PO SCH ×2 (08:51→21:15)
[2019-12-13] MEDS: cefTRIAXone FOR IV USE 1,000 MG in WATER (STERILE) FOR INJECTION 10 ML IV SCH (08:52)
--- NOTE | 2019-12-13 10:08 | Physical Therapy Daily Note ---
PT Daily Note-Current Subjective Pt presents supine in bed with telesitter and live sitter due to agitation and confusion. Pt reluctantly agrees to therapy with verbal and physical encouragement. Appearance Following session, pt sitting up in chair with chair alarm activated and telesitter and live sitter. Call light and tray within reach, all needs met. Mental Status Patient Orientation: Confused, Mumbles Attachments: IV Transfers SCALE: Activities may be completed with or without assistive devices. 7-Rhrtcjomsb-jmuduaq completes the activity by him/herself with no assistance from a helper. 5-Set-up or Clean-up Assistance-helper sets up or cleans up; patient completes activity. [place] assists only prior to or following the activity. 4-Supervision or Touching Assistance-helper provides verbal cues and/or touching/steadying and/or contact guard assistance as patient completes activity. Assistance may be provided throughout the activity or intermittently. 3-Partial/Moderate Assistance-helper does LESS THAN HALF the effort. [place] lifts, holds or supports trunk or limbs, but provides less than half the effort. 2-Substantial/Maximal Assistance-helper does MORE THAN HALF the effort. [place] lifts or holds trunk or limbs and provides more than half the effort. 2-Izaswlmoi-byckqs does ALL the effort. Patient does none of the effort to complete the activity. Or, the assistance of 2 or more helpers is required for the patient to complete the activity. If activity was not attempted, code reason: 7-Patient Refused. 9-Not Applicable-not attempted and the patient did not perform the activity before the current illness, exacerbation or injury. 10-Not Attempted due to Environmental Limitations-(lack of equipment, weather restraints, etc.). 88-Not Attempted due to Medical Conditions or Safety Concerns. Lying to Sitting/Side of Bed(Q: 4 Sit to Stand (QC): 2 Weight Bearing Right Lower Extremity: Right Full Weight Bearing Left Lower Extremity: Left Full Weight Bearing Gait Training Distance: 150' Walk 50 ft with 2 Turns(QC): 2 Gait Assistive Device: FWW Pt ambulates with scissoring gait, and leans to the (R). Pt requires assistance for walker mgmt and navigation. Assessment Current Status: Fair Progress Pt continues to be unsafe to left unattended, and requires assistance for all functional mobility. Would benefit from placement at an extended care facility for safety with functional mobility. PT Short Term Goals Short Term Goals Time Frame: Dec 16, 2019 Roll Left & Right: 6 Sit to lyin Lying to sitting on side of be: 5 Sit to stand: 5 Chair/dmq-wn-fuzjk transfer: 5 PT Legal Summer Intern Goals Half-Way Goals PT Half-Way Goals Time Frame: Dec 23, 2019 Roll Left & Right (QC): 6 Sit to Lying (QC): 6 Lying-Sitting on Side/Bed(QC): 6 Sit to Stand (QC): 5 Chair/Zuw-pi-Qrtit Xfer(QC): 5 Toilet Transfer (QC): 5 Car Transfer (QC): 5 Does the Patient Walk: No and Walking Goal IS indicated Walk 10 feet (QC): 5 Walk 50ft with 2 Turns (QC): 5 Walk 150 ft (QC): 5 Walking 10ft on Uneven Surface: 4 1 Step (curb) (QC): 4 Does the Pt use WC or Scooter?: No Type: N/A Type: N/A PT Plan Problem List Problem List: Activity Tolerance, Functional Strength, Safety, Balance, Gait, Transfer, Bed Mobility, ROM Treatment/Plan Treatment Plan: Continue Plan of Care Treatment Plan: Bed Mobility, Education, Functional Activity Wicho, Functional Strength, Group Therapy, Gait, Safety, Therapeutic Exercise, Transfers Treatment Duration: Dec 23, 2019 Frequency: 6 times per week Estimated Hrs Per Day: .25 hour per day Patient and/or Family Agrees t: Yes Time/GCodes Time In: 923 Time Out: 946 Total Billed Treatment Time: 23 Total Billed Treatment 1 visit GT (15') FA (8') KRYS ALEJANDRO PT Dec 13, 2019 10:08
--- NOTE | 2019-12-13 10:38 | Progress Note ---
Subjective Subjective Date Seen by Provider: Dec 12, 2019 Time Seen by Provider: 09:00 PT IS CONFUSED, NOT VERY INTERACTIVE WITH PHYSICIAN. PT DOES NOT FOLLOW ALONG WITH CONVERSATION. Review of Systems ROS Unable to Obtain: limited by confusion General: Fatigue, Malaise, Appetite (DECREASED) Pulmonary: Other (NO COUGH, CONGESTION) Cardiovascular: Other (NO CHEST PAIN OR SHORTNESS OF BREATH , DOES NOT REALLY EXERT HIMSELF WITH ANY ACTIVITY); No: Chest Pain Gastrointestinal: No: Abdominal Pain Genitourinary: Other (URINARY INCONTINENCE) Neurological: Weakness, Confusion OPEN ABDOMINAL WOUND, CONFUSION AND COMBATIVENESS Objective Exam Vital Signs Vital Signs - First Documented 12/08/19 12/08/19 16:53 17:06 Temp 36.5 Pulse 81 Resp 20 B/P (MAP) 150/82 (104) Pulse Ox 98 O2 Delivery Room Air Capillary Refill : Less Than 3 Seconds General Appearance: No Apparent Distress, Thin Eyes: Bilateral Eye Normal Inspection, Bilateral Eye PERRL, Bilateral Eye EOMI HEENT: PERRL/EOMI, Moist Mucous Membranes Neck: Normal Inspection, Supple Respiratory: No Accessory Muscle Use, No Respiratory Distress Cardiovascular: Regular Rate, Rhythm, No Edema Gastrointestinal: Other (ABD pad over abdomen) Extremity: No Calf Tenderness, No Pedal Edema Neurologic/Psychiatric: Alert, Disoriented, Other (Patient still confused.) Skin: Normal Color, Warm/Dry Results Lab Laboratory Tests 12/12/19 12:10: Vancomycin Level Trough 2.2L 12/13/19 06:15: White Blood Count 12.6H, Red Blood Count 2.99L, Hemoglobin 7.9L, Hematocrit 26L, Mean Corpuscular Volume 86, Mean Corpuscular Hemoglobin 26, Mean Corpuscular Hemoglobin Concent 31L, Red Cell Distribution Width 16.6H, Platelet Count 453H, Mean Platelet Volume 9.4, Neutrophils (%) (Auto) 63, Lymphocytes (%) (Auto) 29, Monocytes (%) (Auto) 6, Eosinophils (%) (Auto) 2, Basophils (%) (Auto) 0, Neutrophils # (Auto) 7.9H, Lymphocytes # (Auto) 3.6, Monocytes # (Auto) 0.8, Eosinophils # (Auto) 0.3, Basophils # (Auto) 0.1, Neutrophils % (Manual) 60, Lymphocytes % (Manual) 32, Monocytes % (Manual) 4, Eosinophils % (Manual) 3, Band Neutrophils 1, Hypochromasia MODERATE, Anisocytosis SLIGHT, Microcytosis SLIGHT, Sodium Level 137, Potassium Level 4.1, Chloride Level 108H, Carbon Dioxide Level 23, Anion Gap 6, Blood Urea Nitrogen 12, Creatinine 0.48L, Estimat Glomerular Filtration Rate > 60, BUN/Creatinine Ratio 25, Glucose Level 91, Calcium Level 8.0L, Corrected Calcium 9.4, Total Bilirubin 0.3, Aspartate Amino Transf (AST/SGOT) 31, Alanine Aminotransferase (ALT/SGPT) 21, Alkaline Phosphatase 80, Total Protein 6.6, Albumin 2.3L Microbiology 12/09/19 Urine Culture - Final, Complete Klebsiella pneumoniae Assessment/Plan Assessment/Plan Admission Dx URINARY TRACT INFECTION CRITICAL ILLNESS MYOPATHY DELIRIUM ANOREXIA CACHEXIA SMALL BOWEL RESECTION DEMENTIA DIARRHEA FECAL INCONTINENCE URINARY INCONTINENCE Assessment and Plan URINARY TRACT INFECTION CRITICAL ILLNESS MYOPATHY DELIRIUM ANOREXIA CACHEXIA SMALL BOWEL RESECTION DEMENTIA DIARRHEA FECAL INCONTINENCE URINARY INCONTINENCE URINARY TRACT INFECTION - KLEBSIELLA - IV ANTIBIOTICS - MONITOR URINE CULTURE - IV ANTIBIOTIC NARROWED, WILL TRANSITION TO ORAL ANTIBIOTICS LATER. CRITICAL ILLNESS MYOPATHY - SUPPORTIVE CARE, HE CANNOT PARTICIPATE WELL WITH THERAPY DUE TO HIS DEMENTIA AND DELIRIUM, SUPPORTIVE CARE AND WE WILL NEED TO LOOK FOR A [facility] WHICH CAN TAKE HIM WITH HIS MULTIPLE NEEDS. SEE DIRECTOR [employer] NURSING NOTE FROM TODAY - PTS HAS BEEN NOTIFIED OF THE NEED FOR HIM TO GO TO A [facility] ON DISCHARGE, BUT SHE HAS NOT MADE ANY MOVES TO LOOK INTO THE FACILITIES THAT SHE FINDS ACCEPTABLE FOR [place]. DELIRIUM, ANOREXIA, CACHEXIA - PT RECEIVING TPN DUE TO HIS POOR INTAKE, HE IS ALSO ON MAGACE WITH MINIMAL IMPROVEMENT IN HIS APPETITE. SMALL BOWEL RESECTION WITH OPEN ABDOMINAL WOUND - WOUND CARE FOR ABDOMINAL WOUND, NOTES REPORT WOUND VAC, BUT HE HAS NOT HAD ONE ON - WILL DISCUSS WITH STAFF LATER THIS WEEK ONCE PT'S DELIRIUM AND OTHER SYMPTOMS HAVE IMPROVED. DIARRHEA WITH FECAL INCONTINENCE - SUPPORTIVE CARE, PROBIOTICS TO TRY TO DECREASE FECAL OUTPUT. URINARY INCONTINENCE - SUPPORTIVE CARE ONLY AT THIS TIME. ANEMIA - DUE TO EXTENSIVE ILLNESS, BLOOD LOSS AND POOR INTAKE, CHECKED IRON PANEL - DOES NOT REQUIRE IV IRON AT THIS TIME, TRANSFUSE IF NEEDED IF HGB DROPS BELOW 7. Admission Dx URINARY TRACT INFECTION CRITICAL ILLNESS MYOPATHY DELIRIUM ANOREXIA CACHEXIA SMALL BOWEL RESECTION DEMENTIA DIARRHEA FECAL INCONTINENCE URINARY INCONTINENCE Clinical Quality Measures Admission Status Admission Dx URINARY TRACT INFECTION CRITICAL ILLNESS MYOPATHY DELIRIUM ANOREXIA CACHEXIA SMALL BOWEL RESECTION DEMENTIA DIARRHEA FECAL INCONTINENCE URINARY INCONTINENCE DVT/VTE Risk/Contraindication: Risk Factor Score Per Nursin RFS Level Per Nursing on Admit: 4+=Very High TITA LAINEZ MD Dec 13, 2019 10:38
[2019-12-13] MEDS ORDERED: WATER (STERILE) FOR INJECTION 10 ML ONE (11:14)
[2019-12-13] MEDS: ZIPRASIDONE 20 MG INJ (GEODON) VIAL IM PRN (11:24)
--- NOTE | 2019-12-13 11:29 | Occ Therapy Progress Note ---
Therapy Progress Note Pt agitated when NORRIS entered room. Pt was pulling on IV tubing and throwing blanket around. Nrsg attempting to calm pt down. Pt stopped pulling at IV tubing. NORRIS moved tubing so it was not across pt's body. Attempted to engage pt in B UE exercises. Pt just shook head no. When asked if pt wanted to complete movement, pt stated "I don't want to play." When asked if pt wanted to complete exercises, pt stated "I want to do that even less." Pt refused to comp lete any exercise or task with NORRIS. 1 [id number] FATOUMATA DEL REAL Dec 13, 2019 11:29
[2019-12-13] MEDS: ENOXAPARIN 30 MG/0.3 ML (LOVENOX) SYR SC SCH (12:27)
--- NOTE | 2019-12-13 12:55 | NUR ---
CM/SS: Referral sent to [facility]
--- NOTE | 2019-12-13 12:56 | NUR ---
CM/SS: Referral sent to [facility] att: Bud
--- NOTE | 2019-12-13 13:57 | Speech Therapy Daily Note ---
Speech Daily Progress Note Subjective Date Seen by Provider: Dec 13, 2019 Time Seen by Provider: 00:15 Patient sitting up in his chair. Patient watching television. Live sitter present. Objective Patient answered y/n questions related to self with 50% relevance with moderate cues. Assessment Assessment Current Status: Poor Progress Treatment Plan Continue Plan of Care Speech Short Term Goals Short Term Goals Short Term Goals 1) Patient will completed memory tasks related to his daily needs at 80% or greater with minimal cues. 2) Patient will completed safety awareness tasks related to his daily needs at 80% or greater with minimal cues. 3) Patient will completed problem solving tasks related to his daily needs at 80% or greater with minimal cues. Speech Clinical Staff Pharmacist Goals Clinical Staff Pharmacist Goals Patient will improve cognitive-communication necessary for safety and daily living tasks with minimal assist. Speech-Plan Patient/Family Goals Patient/Family Goals: Patient's discharge situation is unknown at this time due to patient's medical and mental status. Treatment Plan Speech Therapy Treatment Plan: Continue Plan of Care Treatment Duration: Dec 20, 2019 Frequency: 4 times per week (Patient will receive skilled ST 4-5x per week.) Estimated Hrs Per Day: .25 hour per day Rehab Potential: Guarded Barriers to Learning: Patient's confusion, behaviors Pt/Family Agrees to Plan: Yes Safety Risks/Education Teaching Methods: Demonstration, Discussion Response to Teaching: Return Demonstration, Reinforcement Needed Education Topics Provided: Safety within his room, call light education Time Speech Therapy Time In: 10:15 Speech Therapy Time Out: 10:30 Total Billed Time: 15 Billed Treatment Time 1LUDMIL[address] ST Dec 13, 2019 13:57
--- NOTE | 2019-12-13 14:52 | NUR ---
"CALORIE COUNT Est kcal needs: 1650 kcal | 30 kcal/kg Est Pro needs: 66 g Pro | 1.2 g Pro/kg Note pt currently on TPN, providing 1670 kcal (30 kcal/kg); 80 g Pro (1.4 g Pro/kg). This currently provides sufficient kcal (101%) and protein (121%) to meet pt's nutritional needs 11/28: 478 kcal (27% of est needs) | 14 g Pro (19% of est needs) 11/29: 358 kcal (20% of est needs) | 4 g Pro (1% of est needs) 11/30: 514 kcal (29% of est needs) | 11 g Pro (15% of est needs) 12/01: 343 kcal (19% of est needs) | 11 g Pro (15% of est needs) | Note: Pt refused B and L trays, per chart review. 12/02: 164 kcal (9% of est needs) | 5 g Pro (7% of est needs) 12/03: 1111 kcal (61% of est needs) | 33 g Pro (46% of est needs) 12/04: 435 kcal (24% of est needs) | 24 g Pro (33% of est needs) 12/05: 135 kcal (8% of est needs) | 15 g Pro (22% of est needs) 12/06: 1491 kcal (90% of est needs) | 47 g Pro (71% of est needs) 12/07: No record of meals consumed 12/08: 113 kcal (7% of est needs) | 6 g Pro (9% of est needs) 12/09: No record of meals consumed 12/10: 627 kcal (38% of est needs) | 33 g Pro (50% of est needs) 12/11: 271 kcal (16% of est needs) | 4 g Pro (6% of est needs) Would recommend continuation of TPN to provide nutritional needs for pt. Would recommend nutrition supplementation to improve kcal intake. Encouraged pt to eat when able. Will continue to follow and reassess as pt needs, intake, and status change. Flaco Dave, MS, RD, LD [phone] (cell)"
[2019-12-13 15:05] VITALS: BP 118/72
--- NOTE | 2019-12-13 15:57 | NUR ---
CM/SS: [facility] - denied pt for placement
--- NOTE | 2019-12-13 15:58 | NUR ---
CM/SS: [facility] [place] [place] [facility] Transition Team
--- NOTE | 2019-12-13 15:59 | NUR ---
CM/SS: Visited with pt and spouse as to plan for discharge Plan: Undetermined at this time Summary: Talk with spouse as to pt needing placement. Spouse reports talking to Dr Carpenter this morning and that they did not agree with each other on the plan for pt. Spouse reports she is optimistic and that the physician sees things different. She is asked what they agree on, she is unable to tell this worker what they agree on. She is encouraged that we are needing to finds something for pt. Went over our previous conversations and that she was to be looking for options for referrals. [facility] [place] [facility] [place] [facility]. She is given information about local facilities that have openings, [place] and [place] and that pt could be referred there. She reports that she can not visit is he goes there. She is reminded that it is about the pt and not about her visiting. She does give permission that the pt can be referred to [facility] and [facility]. This worker follow up with her on Monday.
[2019-12-13] MEDS: QUEtiapine 25 MG (SEROquel) TAB IMMEDIATE RELEASE PO SCH (17:01)
[2019-12-13] MEDS: OLANZapine 5 MG ODT (ZyPREXA ZYDIS) PO SCH (21:14)
[2019-12-13 23:25] VITALS: BP 128/81
[2019-12-14] MEDS: HALOPERIDOL 5 MG/ML (HALDOL) VIAL IM PRN (02:26)
[2019-12-14] MEDS: NS IV 1000 ML 1,000 ML IV SCH ×2 (05:31→20:18)
[2019-12-14 05:44] LABS: HEMOGLOBIN 7.5 G/DL (13.3-17.7); MEAN PLATELET VOLUME 9.2 FL (7.4-10.4); WHITE BLOOD COUNT 11.8 10^3/uL (4.3-11.0)
[2019-12-14 05:54] LABS: ALBUMIN 2.2 GM/DL (3.2-4.5)
[2019-12-14 05:55] LABS: CHLORIDE 108 MMOL/L (98-107); POTASSIUM 3.9 MMOL/L (3.6-5.0); SODIUM 136 MMOL/L (135-145)
[2019-12-14 05:56] LABS: CALCIUM 8.1 MG/DL (8.5-10.1)
[2019-12-14 05:57] LABS: GLUCOSE 78 MG/DL (70-105); TOTAL PROTEIN 6.4 GM/DL (6.4-8.2)
[2019-12-14 05:58] LABS: CARBON DIOXIDE 21 MMOL/L (21-32)
[2019-12-14 05:59] LABS: BILIRUBIN,TOTAL 0.4 MG/DL (0.1-1.0)
[2019-12-14 06:00] LABS: ALKALINE PHOSPHATASE 85 U/L (40-136)
[2019-12-14 06:01] LABS: CREATININE SERUM 0.52 MG/DL (0.60-1.30); GFR ESTIMATED > 60
[2019-12-14 06:02] LABS: BUN/CREATININE RATIO 27
[2019-12-14 06:03] LABS: ALANINE AMINOTRANSFERASE 27 U/L (0-55)
[2019-12-14] MEDS: CYANOCOBALAMIN 1,000 MCG (VITAMIN B-12) TABLET PO SCH (06:47)
[2019-12-14] MEDS: HYDROcodone/APAP 5 MG/325 MG (LORTAB) TAB PO SCH ×3 (06:47→22:11)
[2019-12-14 08:00] VITALS: BP 130/77
[2019-12-14] MEDS: FOLIC ACID 1 MG TAB PO SCH (08:25)
[2019-12-14] MEDS: SENNA W/DOCUSATE (SENOKOT S) TABLET PO SCH ×2 (08:25→20:19)
[2019-12-14] MEDS: FAMOTIDINE 20 MG (PEPCID) TABLET PO SCH ×2 (08:25→20:19)
[2019-12-14] MEDS: FERROUS SULF 325 MG (IRON) TAB PO SCH (08:25)
[2019-12-14] MEDS: MEGESTROL 40 MG (MEGACE) TAB PO SCH ×2 (08:25→20:19)
[2019-12-14] MEDS: LOSARTAN 25 MG (COZAAR) TAB PO SCH (08:25)
[2019-12-14] MEDS: LACTOBACILLUS ACIDOPHILUS (PROBIOTIC) CAPSULE PO SCH ×3 (08:25→17:33)
[2019-12-14] MEDS: PANTOPRAZOLE 20 MG TABLET (PROTONIX) PO SCH (08:25)
[2019-12-14] MEDS: polyethylene glycoL POWDER 17 GM (MIRALAX) PACK PO SCH ×2 (08:26→20:19)
[2019-12-14] MEDS: cefTRIAXone FOR IV USE 1,000 MG in WATER (STERILE) FOR INJECTION 10 ML IV SCH (08:26)
--- NOTE | 2019-12-14 09:39 | Physical Therapy Daily Note ---
PT Daily Note-Current Subjective Pt supine in bed upon arrival to room, with telesitter and live sitter present due to pt confusion, pt less agitated this date. Appearance Following session, pt up in chair with chair alarm activated, live sitter in room and telesitter. Call light and tray withn reach, all needs met at this time , Mental Status Patient Orientation: Confused, Mumbles Attachments: IV Transfers SCALE: Activities may be completed with or without assistive devices. 3-Dcqzrxesvh-xvwkggb completes the activity by him/herself with no assistance from a helper. 5-Set-up or Clean-up Assistance-helper sets up or cleans up; patient completes activity. [place] assists only prior to or following the activity. 4-Supervision or Touching Assistance-helper provides verbal cues and/or touching/steadying and/or contact guard assistance as patient completes activity. Assistance may be provided throughout the activity or intermittently. 3-Partial/Moderate Assistance-helper does LESS THAN HALF the effort. [place] lifts, holds or supports trunk or limbs, but provides less than half the effort. 2-Substantial/Maximal Assistance-helper does MORE THAN HALF the effort. [place] lifts or holds trunk or limbs and provides more than half the effort. 4-Yyobzcnpv-xbbvir does ALL the effort. Patient does none of the effort to complete the activity. Or, the assistance of 2 or more helpers is required for the patient to complete the activity. If activity was not attempted, code reason: 7-Patient Refused. 9-Not Applicable-not attempted and the patient did not perform the activity before the current illness, exacerbation or injury. 10-Not Attempted due to Environmental Limitations-(lack of equipment, weather restraints, etc.). 88-Not Attempted due to Medical Conditions or Safety Concerns. Lying to Sitting/Side of Bed(Q: 3 Sit to Stand (QC): 2 Weight Bearing Right Lower Extremity: Right Full Weight Bearing Left Lower Extremity: Left Full Weight Bearing Gait Training Distance: 250' Walk 150 ft (QC): 2 Gait Assistive Device: FWW Pt with scissor gait pattern, with many steps crossing midline. Pt requires cueing and physical assistance for navigation and walker mgmt Assessment Current Status: Fair Progress Pt with fair progress, will require extended care upon dc from hospital for safety with functional mobility PT Short Term Goals Short Term Goals Time Frame: Dec 16, 2019 Roll Left & Right: 6 Sit to lyin Lying to sitting on side of be: 5 Sit to stand: 5 Chair/zsk-cw-xuhps transfer: 5 PT Respiratory Care Program Director Goals Snf Goals PT Snf Goals Time Frame: Dec 23, 2019 Roll Left & Right (QC): 6 Sit to Lying (QC): 6 Lying-Sitting on Side/Bed(QC): 6 Sit to Stand (QC): 5 Chair/Mng-ku-Fbohy Xfer(QC): 5 Toilet Transfer (QC): 5 Car Transfer (QC): 5 Does the Patient Walk: No and Walking Goal IS indicated Walk 10 feet (QC): 5 Walk 50ft with 2 Turns (QC): 5 Walk 150 ft (QC): 5 Walking 10ft on Uneven Surface: 4 1 Step (curb) (QC): 4 Does the Pt use WC or Scooter?: No Type: N/A Type: N/A PT Plan Problem List Problem List: Activity Tolerance, Functional Strength, Safety, Balance, Gait, Transfer, Bed Mobility, ROM Treatment/Plan Treatment Plan: Continue Plan of Care Treatment Plan: Bed Mobility, Education, Functional Activity Wicho, Functional Strength, Group Therapy, Gait, Safety, Therapeutic Exercise, Transfers Treatment Duration: Dec 23, 2019 Frequency: 6 times per week Estimated Hrs Per Day: .25 hour per day Patient and/or Family Agrees t: Yes Time/GCodes Time In: 835 Time Out: 900 Total Billed Treatment Time: 25 Total Billed Treatment 1 visit FA (8') GT (15') KRYS ALEJANDRO PT Dec 14, 2019 09:39
[2019-12-14] MEDS: ENOXAPARIN 30 MG/0.3 ML (LOVENOX) SYR SC SCH (11:12)
--- NOTE | 2019-12-14 11:44 | Progress Note ---
Subjective Date Seen by a Provider: Dec 14, 2019 Time Seen by a Provider: 11:41 Subjective/Events-last exam Fwup UTI, anorexia/cachexia, critical illness myopathy, anemia. Sitting up in chair and answers some questions with a whisper. Objective Exam Vital Signs Date Time Temp Pulse Resp B/P (MAP) Pulse Ox O2 Delivery O2 Flow Rate FiO2 12/14/19 08:00 36.5 71 18 130/77 (94) 98 12/14/19 08:00 Room Air 12/13/19 23:25 37.1 98 16 128/81 (97) 95 Room Air 12/13/19 19:50 Room Air 12/13/19 15:05 37.2 99 18 118/72 (87) 96 Room Air I & O 12/14/19 07:00 Intake Total 1941.2 ml Balance 1941.2 ml Capillary Refill : Less Than 3 Seconds General Appearance: No Apparent Distress Respiratory: Lungs Clear Cardiovascular: Regular Rate, Rhythm, Systolic Murmur Gastrointestinal: normal bowel sounds, non tender, soft, other (dry dressing in place) Neurologic/Psychiatric: Alert Skin: Warm/Dry Results Lab Laboratory Tests 12/14/19 05:36: White Blood Count 11.8H, Red Blood Count 2.86L, Hemoglobin 7.5L, Hematocrit 25L, Mean Corpuscular Volume 86, Mean Corpuscular Hemoglobin 26, Mean Corpuscular Hemoglobin Concent 31L, Red Cell Distribution Width 16.9H, Platelet Count 445H, Mean Platelet Volume 9.2, Sodium Level 136, Potassium Level 3.9, Chloride Level 108H, Carbon Dioxide Level 21, Anion Gap 7, Blood Urea Nitrogen 14, Creatinine 0.52L, Estimat Glomerular Filtration Rate > 60, BUN/Creatinine Ratio 27, Glucose Level 78, Calcium Level 8.1L, Corrected Calcium 9.5, Total Bilirubin 0.4, As partate Amino Transf (AST/SGOT) 33, Alanine Aminotransferase (ALT/SGPT) 27, Alkaline Phosphatase 85, Total Protein 6.4, Albumin 2.2L Microbiology 12/09/19 Urine Culture - Final, Complete Klebsiella pneumoniae Assessment/Plan Assessment/Plan Assess & Plan/Chief Complaint 1. UTI--on abx 2. Anorexia/Cachexia--on megace, will add low dose marinol 3. Critical Illness Myopathy--working with therapies 4. Anemia--monitor and transfuse if Hgb drops below 7 Needs chcf placement Clinical Quality Measures DVT/VTE Risk/Contraindication: Risk Factor Score Per Nursin RFS Level Per Nursing on Admit: 4+=Very High TAWANA JULES DO Dec 14, 2019 11:44
[2019-12-14] MEDS: DRONABINOL 2.5 MG (MARINOL) CAP PO SCH ×2 (12:32→17:32)
--- NOTE | 2019-12-14 12:56 | NUR ---
patient switched to DYS 2 diet at this time. patient has had trouble chewing/swallowing meals for the day. patient spit out broccoli and hamburger at lunch due to refusal to wear dentures
[2019-12-14 16:00] VITALS: BP 119/89
[2019-12-14] MEDS: QUEtiapine 25 MG (SEROquel) TAB IMMEDIATE RELEASE PO SCH (17:32)
[2019-12-14] MEDS: OLANZapine 5 MG ODT (ZyPREXA ZYDIS) PO SCH (20:19)
[2019-12-15 00:04] VITALS: BP 130/79
[2019-12-15] MEDS: CYANOCOBALAMIN 1,000 MCG (VITAMIN B-12) TABLET PO SCH (06:26)
[2019-12-15] MEDS: HYDROcodone/APAP 5 MG/325 MG (LORTAB) TAB PO SCH ×3 (06:26→21:36)
[2019-12-15] MEDS: polyethylene glycoL POWDER 17 GM (MIRALAX) PACK PO SCH ×2 (09:26→19:28)
[2019-12-15] MEDS: SENNA W/DOCUSATE (SENOKOT S) TABLET PO SCH ×2 (09:27→19:28)
[2019-12-15] MEDS: FERROUS SULF 325 MG (IRON) TAB PO SCH (09:27)
[2019-12-15] MEDS: FOLIC ACID 1 MG TAB PO SCH (09:27)
[2019-12-15] MEDS: FAMOTIDINE 20 MG (PEPCID) TABLET PO SCH ×2 (09:27→20:41)
[2019-12-15] MEDS: LACTOBACILLUS ACIDOPHILUS (PROBIOTIC) CAPSULE PO SCH ×3 (09:27→17:05)
[2019-12-15] MEDS: PANTOPRAZOLE 20 MG TABLET (PROTONIX) PO SCH (09:28)
[2019-12-15] MEDS: MEGESTROL 40 MG (MEGACE) TAB PO SCH ×2 (09:28→20:41)
[2019-12-15] MEDS: LOSARTAN 25 MG (COZAAR) TAB PO SCH (09:28)
[2019-12-15] MEDS: NS IV 1000 ML 1,000 ML IV SCH (09:31)
[2019-12-15 09:50] VITALS: BP 155/76
--- NOTE | 2019-12-15 10:25 | Progress Note ---
Subjective Date Seen by a Provider: Dec 15, 2019 Time Seen by a Provider: 10:20 Subjective/Events-last exam Fwup UTI, anorexia/cachexia, critical illness myopathy, anemia. Lying in bed. Did not eat any breakfast. left me a note--concerned about him being more listless the past few days and also about low grade fever and chest congestion/COPD. Objective Exam Vital Signs Date Time Temp Pulse Resp B/P (MAP) Pulse Ox O2 Delivery O2 Flow Rate FiO2 12/15/19 09:50 36.8 67 18 155/76 (102) 100 Room Air 12/15/19 00:04 37.1 83 16 130/79 (96) 95 Room Air 12/14/19 19:45 Room Air 12/14/19 17:31 36.6 12/14/19 16:00 37.5 75 19 119/89 (99) 99 Room Air I & O 12/15/19 07:00 Intake Total 1225 ml Balance 1225 ml Capillary Refill : Less Than 3 Seconds General Appearance: No Apparent Distress Neck: Supple Respiratory: Lungs Clear, Decreased Breath Sounds Cardiovascular: Regular Rate, Rhythm Gastrointestinal: normal bowel sounds, non tender, soft, other (dry bandage in place) Extremity: Non Tender, No Calf Tenderness Neurologic/Psychiatric: Alert Skin: Warm/Dry Results Lab Microbiology 12/09/19 Urine Culture - Final, Complete Klebsiella pneumoniae Assessment/Plan Assessment/Plan Assess & Plan/Chief Complaint 1. UTI--Klebsiella, finished rocephin yesterday so will repeat UA 2. Anorexia/Cachexia--on megace, added low dose marinol and will add High Protein ensure supplements 3. Critical Illness Myopathy--continues to require full assist 4. Anemia--monitor and transfuse if Hgb drops below 7 5. COPD--start Advair with spacer 6. Ultimately needs fdc placement which SS is working on this--I did call the to address her concerns about his COPD, low grade temp and her concerns about him being more listless Clinical Quality Measures DVT/VTE Risk/Contraindication: Risk Factor Score Per Nursin RFS Level Per Nursing on Admit: 4+=Very High TAWANA JULES DO Dec 15, 2019 10:25
--- NOTE | 2019-12-15 11:14 | Diagnostic Imaging Report ---
EXAMINATION: Chest radiograph, portable AP view. DATE: 12/15/2019 11:14 AM hours. INDICATION: 74-year-old male, chest congestion. COMPARISON: November 26, 2019. FINDINGS: The right-sided PICC line is at the level of the upper SVC. Stable overall appearance of the cardia mediastinal silhouette. There is no identified pneumothorax. There is no large pleural effusion. There is no identified focal airspace consolidation. IMPRESSION: 1. No identified acute cardiopulmonary abnormality. 2. Right-sided PICC line tip is at the level of the very proximal aspect of the upper SVC. Dictated by: Dictated on workstation # [id number]
[2019-12-15 11:53] LABS: BILIRUBIN,URINE NEGATIVE (NEGATIVE); CLARITY,URINE CLEAR; COLOR,URINE YELLOW; GLUCOSE, URINE (UA) NEGATIVE (NEGATIVE); KETONES,URINE NEGATIVE (NEGATIVE); LEUKOCYTE ESTERASE ,URINE NEGATIVE (NEGATIVE); NITRITE,URINE NEGATIVE (NEGATIVE); PH,URINE 6.5 (5-9); PROTEIN,URINE NEGATIVE (NEGATIVE)
[2019-12-15] MEDS: DRONABINOL 2.5 MG (MARINOL) CAP PO SCH ×2 (12:11→17:05)
[2019-12-15] MEDS: ENOXAPARIN 30 MG/0.3 ML (LOVENOX) SYR SC SCH (12:11)
[2019-12-15 12:12] LABS: BACTERIA,URINE NEGATIVE /HPF; SQUAMOUS EPITHELIAL CELL,UR RARE /HPF
[2019-12-15 16:03] VITALS: BP 136/74
[2019-12-15] MEDS: QUEtiapine 25 MG (SEROquel) TAB IMMEDIATE RELEASE PO SCH (17:05)
[2019-12-15] MEDS: OLANZapine 5 MG ODT (ZyPREXA ZYDIS) PO SCH (20:41)
[2019-12-15] MEDS: LOPERAMIDE 2 MG (IMODIUM) TABLET PO PRN (20:41)
[2019-12-15] MEDS: ADVAIR HFA 115/21 MCG INHALER 8 GM IH SCH (22:50)
[2019-12-15 23:25] VITALS: BP 119/76
[2019-12-16] MEDS: NS IV 1000 ML 1,000 ML IV SCH ×2 (00:14→21:41)
[2019-12-16 05:49] LABS: ALBUMIN 2.3 GM/DL (3.2-4.5)
[2019-12-16 05:50] LABS: CHLORIDE 112 MMOL/L (98-107); POTASSIUM 3.5 MMOL/L (3.6-5.0); SODIUM 139 MMOL/L (135-145)
[2019-12-16 05:51] LABS: CALCIUM 7.8 MG/DL (8.5-10.1)
[2019-12-16 05:52] LABS: GLUCOSE 75 MG/DL (70-105); TOTAL PROTEIN 6.4 GM/DL (6.4-8.2)
[2019-12-16 05:53] LABS: CARBON DIOXIDE 20 MMOL/L (21-32)
[2019-12-16 05:54] LABS: BILIRUBIN,TOTAL 0.3 MG/DL (0.1-1.0)
[2019-12-16 05:56] LABS: ALKALINE PHOSPHATASE 78 U/L (40-136); CREATININE SERUM 0.52 MG/DL (0.60-1.30); GFR ESTIMATED > 60
[2019-12-16 05:57] LABS: BUN/CREATININE RATIO 21
[2019-12-16 05:59] LABS: ALANINE AMINOTRANSFERASE 30 U/L (0-55)
[2019-12-16] MEDS: HYDROcodone/APAP 5 MG/325 MG (LORTAB) TAB PO SCH ×3 (06:39→21:29)
[2019-12-16] MEDS: CYANOCOBALAMIN 1,000 MCG (VITAMIN B-12) TABLET PO SCH (06:39)
[2019-12-16] MEDS: ADVAIR HFA 115/21 MCG INHALER 8 GM IH SCH ×2 (07:12→23:03)
[2019-12-16 08:00] VITALS: BP 124/82
--- NOTE | 2019-12-16 09:24 | Progress Note ---
Subjective Subjective Date Seen by Provider: Dec 16, 2019 Time Seen by Provider: 08:30 PT IS CONFUSED, MORE ALERT TODAY THAN ON MONDAY- SITTING UP IN BED ATTEMPTING TO EAT MEAL. SITTER IN ROOM STATES THAT THE PATIENT HAS BEEN JUST EATING CHIPS, A LITTLE OF HIS BREAKFAST. STAFF NOTES THAT HE HAS BEEN SOMEWHAT CALM THIS MORNING. Review of Systems ROS Unable to Obtain: limited by confusion General: Fatigue, Malaise Pulmonary: Other (NO COUGH, CONGESTION) Cardiovascular: Other (NO CHEST PAIN OR SHORTNESS OF BREATH , DOES NOT REALLY EXERT HIMSELF WITH ANY ACTIVITY); No: Chest Pain Gastrointestinal: No: Abdominal Pain Genitourinary: Other (URINARY INCONTINENCE) Neurological: Weakness, Confusion OPEN ABDOMINAL WOUND, CONFUSION AND COMBATIVENESS Objective Exam Vital Signs Vital Signs - First Documented 12/10/19 05:56 Temp 38.1 Pulse 108 Resp 22 B/P (MAP) 155/80 (105) Pulse Ox 98 O2 Delivery Room Air Capillary Refill : Less Than 3 Seconds General Appearance: No Apparent Distress, Cachetic Eyes: Bilateral Eye Normal Inspection, Bilateral Eye PERRL, Bilateral Eye EOMI HEENT: PERRL/EOMI, Moist Mucous Membranes Neck: Supple Respiratory: Lungs Clear, Other (POOR EFFORT) Cardiovascular: Regular Rate, Rhythm Gastrointestinal: Normal Bowel Sounds, Non Tender, Soft, Other (GRANULATION TISSUE IN WOUND BED, MINIMAL DISCHARGE NOTED, YELLOW/GREEN DISCHARGE ON GAUZE) Rectal: Deferred Extremity: Non Tender, No Calf Tenderness Neurologic/Psychiatric: Alert Skin: Warm/Dry Results Lab Laboratory Tests 12/15/19 11:25: Urine Color YELLOW, Urine Clarity CLEAR, Urine pH 6.5, Urine Specific [place] 1.010L, Urine Protein NEGATIVE, Urine Glucose (UA) NEGATIVE, Urine Ketones NEGATIVE, Urine Nitrite NEGATIVE, Urine Bilirubin NEGATIVE, Urine Urobilinogen 0.2, Urine Leukocyte Esterase NEGATIVE, Urine RBC (Auto) NEGATIVE, Urine RBC NONE, Urine WBC NONE, Urine Squamous Epithelial Cells RARE, Urine Crystals NONE, Urine Bacteria NEGATIVE, Urine Casts NONE, Urine Mucus NEGATIVE, Urine Culture Indicated NO 12/16/19 05:31: Sodium Level 139, Potassium Level 3.5L, Chloride Level 112H, Carbon Dioxide Level 20L, Anion Gap 7, Blood Urea Nitrogen 11, Creatinine 0.52L, Estimat Glomerular Filtration Rate > 60, BUN/Creatinine Ratio 21, Glucose Level 75, Calcium Level 7.8L, Corrected Calcium 9.2, Total Bilirubin 0.3, Aspartate Amino Transf (AST/SGOT) 30, Alanine Aminotransferase (ALT/SGPT) 30, Alkaline Phosphatase 78, Total Protein 6.4, Albumin 2.3L Microbiology 12/09/19 Urine Culture - Final, Complete Klebsiella pneumoniae Assessment/Plan Assessment/Plan Admission Dx URINARY TRACT INFECTION CRITICAL ILLNESS MYOPATHY DELIRIUM ANOREXIA CACHEXIA SMALL BOWEL RESECTION DEMENTIA DIARRHEA FECAL INCONTINENCE URINARY INCONTINENCE Assessment and Plan URINARY TRACT INFECTION CRITICAL ILLNESS MYOPATHY DELIRIUM ANOREXIA CACHEXIA SMALL BOWEL RESECTION DEMENTIA DIARRHEA FECAL INCONTINENCE URINARY INCONTINENCE URINARY TRACT INFECTION - KLEBSIELLA - IV ANTIBIOTICS - MONITOR URINE CULTURE - IV ANTIBIOTIC NARROWED AND ANTIBIOTICS FINISHED ON 12/15/2019 CRITICAL ILLNESS MYOPATHY - SUPPORTIVE CARE, HE CANNOT PARTICIPATE WELL WITH THERAPY DUE TO HIS DEMENTIA AND DELIRIUM, SUPPORTIVE CARE AND WE WILL NEED TO LOOK FOR A [facility] WHICH CAN TAKE HIM WITH HIS MULTIPLE NEEDS. I HAD A PROLONGED DISCUSSION WITH GERONIMO ON MONDAY - SHE HAS GIVEN THE ANIMAL SHELTER CLERK PERMISSION TO CONTACT [facility]. WE ARE WAITING TO HEAR FROM THEM ON IF THEY WILL TAKE HIM A PATIENT. SHE TOLD THE ANIMAL SHELTER CLERK THAT WE DID NOT AGREE ON HIS CARE BECAUSE SHE WAS AN OPTIMIST AND THIS CODING SPECIALIST WAS NOT, AND SHE WOULD NOT LET HIM GO TO A [facility] BECAUSE SHE WAS NOT WILLING TO GIVE UP HER PRIVILEGE OF SEEING HIM EVERY DAY. DELIRIUM, ANOREXIA, CACHEXIA - SLIGHTLY IMPROVED APPETITE - PT ON MEGACE AND MARINOL SMALL BOWEL RESECTION WITH OPEN ABDOMINAL WOUND - WOUND CARE FOR ABDOMINAL WOUND, CONTINUES TO HEAL WITH WET TO DRY DRESSINGS. DIARRHEA WITH FECAL INCONTINENCE - IMPROVED WITH PROBIOTICS. URINARY INCONTINENCE - SUPPORTIVE CARE ONLY AT THIS TIME. ANEMIA - DUE TO EXTENSIVE ILLNESS, BLOOD LOSS AND POOR INTAKE, CHECKED IRON PANEL - DOES NOT REQUIRE IV IRON AT THIS TIME, TRANSFUSE IF NEEDED IF HGB DROPS BELOW 7. PLACEMENT IS A HUGE MONIKA WITH THIS PATIENT DUE TO HIS SPOUSE REFUSING TO CONSIDER [facility] PLACEMENT. SHE WAS TOLD LAST MONDAY THAT THE PLAN WOULD BE TO GET HIM TO A FACILITY BY MONDAY - HOWEVER SHE ADMITTED TO "DRAGGING MY FEET" AND SHE WAS INFORMED ON MONDAY OF LAST WEEK THAT THE PLAN WOULD BE TO GET HIM TO A FACILITY ON MONDAY SINCE HIS ANTIBIOTICS WOULD NO LONGER BE NEEDED AFTER THE WEEKEND. SHE IS AWARE OF THIS PLAN MYSELF AND THE ANIMAL SHELTER CLERK HAVE DISCUSSED WITH HER THE PLAN. I WILL MOVE FORWARD WITH THE DISCHARGE PLAN DESPITE HER DESIRE TO KEEP HIM IN THE HOSPITAL SO THAT SHE CAN VISIT HIM DAILY. Admission Dx URINARY TRACT INFECTION CRITICAL ILLNESS MYOPATHY DELIRIUM ANOREXIA CACHEXIA SMALL BOWEL RESECTION DEMENTIA DIARRHEA FECAL INCONTINENCE URINARY INCONTINENCE Clinical Quality Measures Admission Status Admission Dx URINARY TRACT INFECTION CRITICAL ILLNESS MYOPATHY DELIRIUM ANOREXIA CACHEXIA SMALL BOWEL RESECTION DEMENTIA DIARRHEA FECAL INCONTINENCE URINARY INCONTINENCE DVT/VTE Risk/Contraindication: Risk Factor Score Per Nursin RFS Level Per Nursing on Admit: 4+=Very High TITA LAINEZ MD Dec 16, 2019 09:24
--- NOTE | 2019-12-16 10:24 | Physical Therapy Daily Note ---
PT Daily Note-Current Subjective Patient is in bed with HAND PATTERN MARKER present changing him due to incontinent BM. Noted severe confusion with inability to follow simple direction on this date. Mental Status Patient Orientation: Confused Attachments: Central Line Transfers SCALE: Activities may be completed with or without assistive devices. 6-Glkvztrzac-ethbpmm completes the activity by him/herself with no assistance from a helper. 5-Set-up or Clean-up Assistance-helper sets up or cleans up; patient completes activity. [place] assists only prior to or following the activity. 4-Supervision or Touching Assistance-helper provides verbal cues and/or touching/steadying and/or contact guard assistance as patient completes activity. Assistance may be provided throughout the activity or intermittently. 3-Partial/Moderate Assistance-helper does LESS THAN HALF the effort. [place] lifts, holds or supports trunk or limbs, but provides less than half the effort. 2-Substantial/Maximal Assistance-helper does MORE THAN HALF the effort. [place] lifts or holds trunk or limbs and provides more than half the effort. 7-Wxpthkqje-gfuiqt does ALL the effort. Patient does none of the effort to complete the activity. Or, the assistance of 2 or more helpers is required for the patient to complete the activity. If activity was not attempted, code reason: 7-Patient Refused. 9-Not Applicable-not attempted and the patient did not perform the activity before the current illness, exacerbation or injury. 10-Not Attempted due to Environmental Limitations-(lack of equipment, weather restraints, etc.). 88-Not Attempted due to Medical Conditions or Safety Concerns. Roll Left & Right (QC): 1 Lying to Sitting/Side of Bed(Q: 1 Sit to Stand (QC): 2 Chair/Lhk-hu-Znhun Xfer(QC): 2 severely retropulsive with right lean Weight Bearing Right Lower Extremity: Right Full Weight Bearing Left Lower Extremity: Left Full Weight Bearing Gait Training Does the Patient Walk?: Yes Distance: 275' Walk 10 feet (QC): 2 Walk 50 ft with 2 Turns(QC): 2 Walk 150 ft (QC): 2 Gait Persons Needed: 2 Gait Assistive Device: FWW scissor gait sequence with crossing mid line and severe lean to right. Patient slightly agitated with PT assist to correct posture and dynamic balance. PT advancing FWW Assessment Patient continues to require much assistance for all mobility due to confusion and inability to care for self. Patient is up in recliner with chair alarm, live sitter and telesitter in situ. PT Short Term Goals Short Term Goals Time Frame: Dec 16, 2019 Roll Left & Right: 6 Sit to lyin Lying to sitting on side of be: 5 Sit to stand: 5 Chair/xci-ca-drcuk transfer: 5 PT Surfacer Goals Surfacer Goals PT Intermediate Goals Time Frame: Dec 23, 2019 Roll Left & Right (QC): 6 Sit to Lying (QC): 6 Lying-Sitting on Side/Bed(QC): 6 Sit to Stand (QC): 5 Chair/Vdn-ub-Cprfq Xfer(QC): 5 Toilet Transfer (QC): 5 Car Transfer (QC): 5 Does the Patient Walk: No and Walking Goal IS indicated Walk 10 feet (QC): 5 Walk 50ft with 2 Turns (QC): 5 Walk 150 ft (QC): 5 Walking 10ft on Uneven Surface: 4 1 Step (curb) (QC): 4 Does the Pt use WC or Scooter?: No Type: N/A Type: N/A PT Plan Treatment/Plan Treatment Plan: Continue Plan of Care Treatment Plan: Bed Mobility, Education, Functional Activity [place], Functional Strength, Group Therapy, Gait, Safety, Therapeutic Exercise, Transfers Treatment Duration: Dec 23, 2019 Frequency: 6 times per week Estimated Hrs Per Day: .25 hour per day Patient and/or Family Agrees t: Yes Time/GCodes Time In: 1007 Time Out: 1020 Total Billed Treatment Time: 13 Total Billed Treatment 1 visit GT 13 min ANSLEY ARCE PT Dec 16, 2019 10:24
[2019-12-16] MEDS: FAMOTIDINE 20 MG (PEPCID) TABLET PO SCH ×2 (10:30→21:29)
[2019-12-16] MEDS: DRONABINOL 2.5 MG (MARINOL) CAP PO SCH ×2 (10:30→17:39)
[2019-12-16] MEDS: LOSARTAN 25 MG (COZAAR) TAB PO SCH (10:30)
[2019-12-16] MEDS: FOLIC ACID 1 MG TAB PO SCH (10:30)
[2019-12-16] MEDS: FERROUS SULF 325 MG (IRON) TAB PO SCH (10:30)
[2019-12-16] MEDS: LACTOBACILLUS ACIDOPHILUS (PROBIOTIC) CAPSULE PO SCH ×3 (10:30→17:39)
[2019-12-16] MEDS: PANTOPRAZOLE 20 MG TABLET (PROTONIX) PO SCH (10:31)
[2019-12-16] MEDS: MEGESTROL 40 MG (MEGACE) TAB PO SCH ×2 (10:31→21:29)
[2019-12-16] MEDS: KCL 10 MEQ TAB (MICRO K) PO SCH ×2 (10:31→17:45)
[2019-12-16] MEDS: ENOXAPARIN 30 MG/0.3 ML (LOVENOX) SYR SC SCH (10:31)
[2019-12-16] MEDS: polyethylene glycoL POWDER 17 GM (MIRALAX) PACK PO SCH ×2 (10:32→21:29)
[2019-12-16] MEDS: SENNA W/DOCUSATE (SENOKOT S) TABLET PO SCH ×2 (10:32→21:29)
[2019-12-16] MEDS: LOPERAMIDE 2 MG (IMODIUM) TABLET PO PRN ×2 (10:37→21:29)
--- NOTE | 2019-12-16 10:48 | NUR ---
CM/SS: Referral to [facility] - phone number [phone] - - Spouse has requested that a referral be sent to their facility. Spouse will plan to visit pt after 12 noon today. Call to [facility] - [phone] - Freda, ems coordinator: He reports having talked to spouse this morning. He is notified that a packet of information was sent over by this worker. Requested to review and follow up with questions or approval for placement.
--- NOTE | 2019-12-16 12:06 | Occupational Ther Daily Note ---
OT Current Status-Daily Note Subjective Pt sitting in recliner. Sitter and telesitter present in room. During session, pt would whisper or shake head. Mental Status/Objective Patient Orientation: Person Attachments: IV ADL-Treatment Attempted to get pt to wash face, only washed R arm. Attempted to get pt to cleanse mouth with oral swab. Pt whispered that he would just put it up his ass. NORRIS reiterated that he just needed to cleanse his mouth, pt snickered and shook his head. Attempted to get pt to place his dentures for lunch, pt refused. NORRIS noticed that pt's pad was wet with urine. Assisted by sitter to change pad, noticed at that time pt had been incontinent of bowel also. Nrsg came to assist with changing and cleansing pt. Sit to stand assist x2 then assist x2 for cleansing and changing pt's brief. After session, pt sitting in recliner with call light in reach. Safety measures in place, sitter and telesitter in room. All needs met. Therapy Code Descriptions/Definitions Functional [place] Measure: 0=Not Assessed/NA 4=Minimal Assistance 1=Total Assistance 5=Supervision or Setup 2=Maximal Assistance 6=Modified [place] 3=Moderate Assistance 7=Complete IndependenceSCALE: Activities may be completed with or without assistive devices. 1-Nehqxfzoav-evremqe completes the activity by him/herself with no assistance from a helper. 5-Set-up or Clean-up Assistance-helper sets up or cleans up; patient completes activity. [place] assists only prior to or following the activity. 4-Supervision or Touching Assistance-helper provides verbal cues and/or touching/steadying and/or contact guard assistance as patient completes activity. Assistance may be provided throughout the activity or intermittently. 3-Partial/Moderate Assistance-helper does LESS THAN HALF the effort. [place] lifts, holds or supports trunk or limbs, but provides less than half the effort. 2-Substantial/Maximal Assistance-helper does MORE THAN HALF the effort. [place] lifts or holds trunk or limbs and provides more than half the effort. 0-Doqfvyplg-jmylro does ALL the effort. Patient does none of the effort to complete the activity. Or, the assistance of 2 or more helpers is required for the patient to complete the activity. If activity was not attempted, code reason: 7-Patient Refused. 9-Not Applicable-not attempted and the patient did not perform the activity before the current illness, exacerbation or injury. 10-Not Attempted due to Environmental Limitations-(lack of equipment, weather restraints, etc.). 88-Not Attempted due to Medical Conditions or Safety Concerns. Eating (QC): 5 (Pt able to eat finger food and when agreeable will use utensils to eat regular food.) Oral Hygiene (QC): 7 Toileting Hygiene (QC): 1 OT Short Term Goals Short Term Goals Time Frame: Dec 16, 2019 Eatin Oral hygiene: 3 Toileting hygiene: 2 OT Senior Living Goals Sterile Supervisor Goals Time Frame: Dec 23, 2019 Eating (QC): 4 Oral Hygiene (QC): 4 Toileting Hygiene (QC): 3 Additional Goals: 1-Demonstrate ADL Tasks, 2-Verbalize Understanding, 3-Im proveStrength/[place] 1=Demonstrate adherence to instructed precautions during ADL tasks. 2=Patient will verbalize/demonstrate understanding of assistive devices/modifications for ADL. 3=Patient will improve strength/tolerance for activity to enable patient to perform ADL's. OT Education/Plan Problem List/Assessment Assessment: Decreased Activ Tolerance, Decreased Safety Aware, Impaired Self- Care Skills Discharge Recommendations Plan/Recommendations: Continue POC Treatment Plan/Plan of Care Patient would benefit from OT for education, treatment and training to promote independence in ADL's, mobility, safety and/or upper extremity function for ADL's. Plan of Care: ADL Retraining, Functional Mobility, UE Funct Exercise/Act Treatment Duration: Dec 23, 2019 Frequency: 5 times per week Estimated Hrs Per Day: .25 hour per day Agreement: Yes Rehab Potential: Guarded Time/GCodes Start Time: 11:35 Stop Time: 12:00 Total Time Billed (hr/min): 25 Billed Treatment Time 1 visit-ADL 2 (25 min) FATOUMATA DEL REAL Dec 16, 2019 12:06
--- NOTE | 2019-12-16 14:51 | NUR ---
CM/SS: Visited with spouse as to plan for discharge and referral to [facility] Plan: Undetermined at this time - physician plan for pt is to be discharged on tomorrow - no facility at this time has accepted pt Summary: Spouse is at the bedside and pt is in bed. This worker does assist pt with putting his sheet on over his legs as pt does not have on any clothes, just his brief. This worker discusses the tentative plan for discharge for pt is to be tomorrow per physician. Spouse reports that pt is not ready to discharge. This worker discusses that pt was to be able to leave on last week (Monday) but no facility had been sought, so pt was able to remain here. It is the understanding that pt will need to be discharged tomorrow. Spouse reports she will need to talk to the doctor as she does not think pt should be discharged. Spouse reports she will be appealing the discharge so that she can get a few more days here at the hospital. Appeal process is discussed, and that she may be responsible for the cost of services. She then shares that she has contacted her CPA and that the cost is not a problem. Spouse is asked how long she would like for pt to stay in the hospital. She reports at least another week or so. Educate on level of care and pt needs. Spouse is confident that pt will be accepted to [facility]. This worker will need to call as one message has been left with them already today. personal computer specialist is Freda. Telephone Call to [facility] [phone]. They report that pt has only 9 skilled days left and that the other days would be out of pocket. Freda, Prevocational/Rehabilitation Counselor reports he will need to reach out to his Work Adjustment Instructor and spouse and discuss options and cost. He will follow up.
[2019-12-16 15:46] VITALS: BP 131/83
--- NOTE | 2019-12-16 15:50 | NUR ---
CM/SS: Important Message of Medicare is given to spouse for review. She reports she wants to read the information prior to signing, even though she also states she does not want pt to be discharged. She also spoke with [facility] and they are still reviewing the information and will make determination on if they can meet the pt's needs. Spouse is on the phone and is unable to visit with this worker. Informed RN on her desire to appeal the discharge that is scheduled for tomorrow. This worker will follow up.
--- NOTE | 2019-12-16 16:08 | Speech Therapy Daily Note ---
Speech Daily Progress Note Subjective Date Seen by Provider: Dec 16, 2019 Time Seen by Provider: 00:13 Patient sitting up in bed watching television when I entered. Patient's sitter in the room. Objective Patient answered y/n related to self at 75%. Mumbled something related to the television. Assessment Assessment Current Status: Poor Progress Treatment Plan Continue Plan of Care Speech Short Term Goals Short Term Goals Short Term Goals 1) Patient will completed memory tasks related to his daily needs at 80% or greater with minimal cues. 2) Patient will completed safety awareness tasks related to his daily needs at 80% or greater with minimal cues. 3) Patient will completed problem solving tasks related to his daily needs at 80% or greater with minimal cues. Speech Order Desk Caller Goals Half-Way Goals Patient will improve cognitive-communication necessary for safety and daily living tasks with minimal assist. Speech-Plan Patient/Family Goals Patient/Family Goals: Patient is planned to discharge from the hospital tomorrow due to antibiotic completion. Treatment Plan Speech Therapy Treatment Plan: Continue Plan of Care Treatment Duration: Dec 20, 2019 Frequency: 4 times per week (Patient will receive skilled ST 4-5x per week.) Estimated Hrs Per Day: .25 hour per day Rehab Potential: Guarded Barriers to Learning: Patient's dementia, delirium, medical status Pt/Family Agrees to Plan: Yes Safety Risks/Education Teaching Recipient: Patient Teaching Methods: Discussion Response to Teaching: Reinforcement Needed Education Topics Provided: Continued safety within his room Time Speech Therapy Time In: 10:30 Speech Therapy Time Out: 10:43 Total Billed Time: 13 Billed Treatment Time 1, JAE Valdes Dec 16, 2019 16:08
[2019-12-16] MEDS: QUEtiapine 25 MG (SEROquel) TAB IMMEDIATE RELEASE PO SCH (17:39)
[2019-12-16] MEDS: ZIPRASIDONE 20 MG INJ (GEODON) VIAL IM PRN (20:05)
[2019-12-16] MEDS: OLANZapine 5 MG ODT (ZyPREXA ZYDIS) PO SCH (21:29)
[2019-12-16] MEDS: HALOPERIDOL 5 MG/ML (HALDOL) VIAL IM PRN (21:35)
[2019-12-17 00:15] VITALS: BP 138/80
[2019-12-17 05:18] LABS: CARBON DIOXIDE 21 MMOL/L (21-32); CHLORIDE 112 MMOL/L (98-107); GLUCOSE 78 MG/DL (70-105); POTASSIUM 3.7 MMOL/L (3.6-5.0); SODIUM 140 MMOL/L (135-145)
[2019-12-17 05:37] LABS: HEMOGLOBIN 7.6 G/DL (13.3-17.7); WHITE BLOOD COUNT 12.3 10^3/uL (4.3-11.0)
[2019-12-17 05:38] LABS: MEAN PLATELET VOLUME 9.4 FL (7.4-10.4)
[2019-12-17 05:39] LABS: BUN/CREATININE RATIO 33; CREATININE SERUM 0.52 MG/DL (0.60-1.30); GFR ESTIMATED > 60
[2019-12-17] MEDS: CYANOCOBALAMIN 1,000 MCG (VITAMIN B-12) TABLET PO SCH (06:14)
[2019-12-17] MEDS: HYDROcodone/APAP 5 MG/325 MG (LORTAB) TAB PO SCH ×3 (06:14→21:37)
--- NOTE | 2019-12-17 08:21 | Progress Note ---
Subjective Subjective Date Seen by Provider: Dec 17, 2019 Time Seen by Provider: 07:45 PT WAS ASLEEP WHEN CONTACTED THIS MORNING, HE RESPONDED TO THE FIRST COUPLE SERIES OF QUESTIONS BUT WAS CLEARLY CONFUSED COMING STRAIGHT FROM SLEEP. PT WAS NEITHER AGGRESSIVE OR NON-COMPLIANT WITH PHYSICAL EXAM BUT NON-RESPONSIVE TO MOST QUESTIONS. NO CHANGES IN HIS PE STATUS SINCE YESTERDAY 12/15. Review of Systems ROS Unable to Obtain: limited by confusion General: Fatigue, Malaise Neurological: Confusion All Other Systems Reviewed All Other Systems Reviewed: No (ROS NOT REVIEWED DO TO PT AMS ) Objective Exam Vital Signs Vital Signs - First Documented 12/11/19 00:03 Temp 36.8 Pulse 78 Resp 20 B/P (MAP) 160/74 (102) Pulse Ox 97 O2 Delivery Room Air Capillary Refill : Less Than 3 Seconds General Appearance: No Apparent Distress, Cachetic Eyes: Bilateral Eye Normal Inspection, Bilateral Eye PERRL, Bilateral Eye EOMI Respiratory: Chest Non Tender, Lungs Clear, Normal Breath Sounds, Other (POOR EFFORT) Cardiovascular: Regular Rate, Rhythm, Normal Peripheral Pulses Gastrointestinal: Other (GRANULATION TISSUE IN WOUND BED, MINIMAL DISCHARGE NOTED, YELLOW/GREEN DISCHARGE ON GAUZE) Rectal: Deferred Extremity: Normal Capillary Refill Neurologic/Psychiatric: Alert Skin: Warm/Dry Results Lab Laboratory Tests 12/17/19 04:45: White Blood Count 12.3H, Red Blood Count 2.88L, Hemoglobin 7.6L, Hematocrit 25L, Mean Corpuscular Volume 87, Mean Corpuscular Hemoglobin 26, Mean Corpuscular Hemoglobin Concent 31L, Red Cell Distribution Width 16.5H, Platelet Count 455H, Mean Platelet Volume 9.4, Sodium Level 140, Potassium Level 3.7, Chloride Level 112H, Carbon Dioxide Level 21, Anion Gap 7, Blood Urea Nitrogen 17, Creatinine 0.52L, Estimat Glomerular Filtration Rate > 60, BUN/Creatinine Ratio 33, Glucose Level 78, Calcium Level 8.0L Microbiology 12/09/19 Urine Culture - Final, Complete Klebsiella pneumoniae Assessment/Plan Assessment/Plan Admission Dx CRITICAL ILLNESS MYOPATHY AND DELIRIUM Reason for Inpatient Admission: URINARY TRACT INFECTION - KLEBSIELLA - IV ANTIBIOTICS - MONITOR URINE CULTURE - IV ANTIBIOTIC NARROWED AND ANTIBIOTICS FINISHED ON 12/15/2019. U/A NEGATIVE FOR CONTINUED INFECTION ON 12/14. CRITICAL ILLNESS MYOPATHY - SUPPORTIVE CARE, HE CANNOT PARTICIPATE WELL WITH THERAPY DUE TO HIS DEMENTIA AND DELIRIUM, SUPPORTIVE CARE AND WE WILL NEED TO LOOK FOR A [facility] WHICH CAN TAKE HIM WITH HIS MULTIPLE NEEDS. SPOUSE CONTACTED [facility] AND [facility] YESERDAY AND IS WAITING TO HEAR BACK ON IF THEY CAN ADMIT SOMEONE WITH HIS LEVEL OF NEEDS. SHE TOLD THE DINING SERVICES DIRECTOR THAT WE DID NOT AGREE ON HIS CARE BECAUSE SHE WAS AN OPTIMIST AND DR LAINEZ WAS NOT, AND SHE WOULD NOT LET HIM GO TO A [facility] BECAUSE SHE WAS NOT WILLING TO GIVE UP HER PRIVILEGE OF SEEING HIM EVERY DAY. SHE HOPES TO KEEP HIM IN THE HOSPITAL FOR AT LEAST ANOTHER WEEK. DELIRIUM, ANOREXIA, CACHEXIA - SLIGHTLY IMPROVED APPETITE - PT ON MEGACE AND [place] SMALL BOWEL RESECTION WITH OPEN ABDOMINAL WOUND - WOUND CARE FOR ABDOMINAL WOUND, CONTINUES TO HEAL WITH WET TO DRY DRESSINGS. DIARRHEA WITH FECAL INCONTINENCE - IMPROVED WITH PROBIOTICS. URINARY INCONTINENCE - SUPPORTIVE CARE ONLY AT THIS TIME. ANEMIA - DUE TO EXTENSIVE ILLNESS, BLOOD LOSS AND POOR INTAKE, CHECKED IRON PANEL - DOES NOT REQUIRE IV IRON AT THIS TIME, TRANSFUSE IF NEEDED IF HGB DROPS BELOW 7. PLACEMENT IS A HUGE MONIKA WITH THIS PATIENT DUE TO HIS SPOUSE REFUSING TO CONSIDER [facility] PLACEMENT. SPOUSE TOLD RN YESTERDAY (12/15) THAT SHE WILL BE APPEALING THE DISCHARGE ORDER PUT IN FOR TODAY. DR LAINEZ WILL MOVE FORWARD WITH THE DISCHARGE PLAN DESPITE HER DESIRE TO KEEP HIM IN THE HOSPITAL SO THAT SHE CAN VISIT HIM DAILY. Admission Dx CRITICAL ILLNESS MYOPATHY AND DELIRIUM Clinical Quality Measures Admission Status Admission Dx CRITICAL ILLNESS MYOPATHY AND DELIRIUM DVT/VTE Risk/Contraindication: Risk Factor Score Per Nursin RFS Level Per Nursing on Admit: 4+=Very High Supervisory-Addendum Brief Verification & Attestation Participated in pt care: history, physical Personally performed: exam, history Care discussed with: Medical Student Procedures: n/a Results interpretation: Verified all documentation HISTORY AND PE PERFORMED BY STUDENT DOCTOR PASCUAL, RE-EVAULATED BY DR LAINEZ. PT SEEN WITH MEDICAL STUDENT - PLANNING ON PATIENT TO BE DISCHARGED TODAY IF POSSIBLE, IF NOT, WILL PLAN FOR TOMORROW. AGREE WITH MEDICAL STUDENT NOTE PT HAS OPEN ABDOMINAL WOUND, SLOWLY GRANULATING IN. POOR INTAKE DUE TO DECREASED APPETITE FROM [facility]ING DUE TO ACUTE ON CHRONIC ILLNESS, PT ON MEGACE AND MARINOL WITH MINIMAL IMPROVEMENT - HOWEVER WILL CONTINUE WITH THIS TREATMENT COURSE. DEMENTIA - PROGRESSIVE - SUPPORTIVE CARE AT THIS TIME WITH TREATMENT OF AGGRESSIVE BEHAVIORS WITH GEODON AND HALDOL AND SEROQUEL. ANTICIPATE DC TO [facility] FOR SNF TODAY OR MONDAY CELIA PASCUAL MED STUDENT Dec 17, 2019 08:21 TITA LAINEZ MD Dec 18, 2019 09:23
--- NOTE | 2019-12-17 09:13 | Occupational Ther Daily Note ---
OT Current Status-Daily Note Subjective Pt. has eyes open when OT walks in room. Does nod head when asked if he remembers therapist. Pt. does not verbalize throughout treatment, and closes eyes intermittently throughout. Appearance Pt. in bed. Breakfast tray on table. Pt. has not eaten from it and indicates he does not want it. Mental Status/Objective Patient Orientation: Unable to Assess Attachments: IV ADL-Treatment Therapy Code Descriptions/Definitions Functional Terry Measure: 0=Not Assessed/NA 4=Minimal Assistance 1=Total Assistance 5=Supervision or Setup 2=Maximal Assistance 6=Modified Terry 3=Moderate Assistance 7=Complete IndependenceSCALE: Activities may be completed with or without assistive devices. 0-Lssrmeayvy-pbsbarq completes the activity by him/herself with no assistance from a helper. 5-Set-up or Clean-up Assistance-helper sets up or cleans up; patient completes activity. [place] assists only prior to or following the activity. 4-Supervision or Touching Assistance-helper provides verbal cues and/or gallito isrrael/steadying and/or contact guard assistance as patient completes activity. Assistance may be provided throughout the activity or intermittently. 3-Partial/Moderate Assistance-helper does LESS THAN HALF the effort. [place]comb lifts, holds or supports trunk or limbs, but provides less than half the effort. 2-Substantial/Maximal Assistance-helper does MORE THAN HALF the effort. [place] lifts or holds trunk or limbs and provides more than half the effort. 5-Ihwqlxqpn-asofaw does ALL the effort. Patient does none of the effort to complete the activity. Or, the assistance of 2 or more helpers is required for the patient to complete the activity. If activity was not attempted, code reason: 7-Patient Refused. 9-Not Applicable-not attempted and the patient did not perform the activity before the current illness, exacerbation or injury. 10-Not Attempted due to Environmental Limitations-(lack of equipment, weather restraints, etc.). 88-Not Attempted due to Medical Conditions or Safety Concerns. Toileting Hygiene (QC): 1 Other Treatment Pt. does not follow commands or participate in treatment. It was noted that pt. had been incontinent of bowel in bed, in brief. OT encouraged pt. to attempt rolling, and occasionally he would start to reach to side. However, required dependent assistance to roll from side to side x 2 people, and dependent assist to cleanse after incontinence. Pt. requires assistance x 2 for bed mobility and positioning. Pt. will not engage with therapy in any other way. All needs met with bed alarm, water, and call light. Education OT Patient Education: Correct positioning, Modified ADL techniques, Progress toward Goal/Update tx plan, Purpose of tx/functional activities, Reviewed precautions, Rehab process, Transfer techniques Teaching Recipient: Patient Teaching Methods: Demonstration, Discussion Response to Teaching: Unable to Return Demonstration OT Short Term Goals Short Term Goals Time Frame: Dec 16, 2019 Eatin Oral hygiene: 3 Toileting hygiene: 2 OT Regional Telecommunications Specialist Goals Usp Goals Time Frame: Dec 23, 2019 Eating (QC): 4 Oral Hygiene (QC): 4 Toileting Hygiene (QC): 3 Additional Goals: 1-Demonstrate ADL Tasks, 2-Verbalize Understanding, 3- ImproveStrength/[place]ich[place] 1=Demonstrate adherence to instructed precautions during ADL tasks. 2=Patient will verbalize/demonstrate understanding of assistive devices/modifications for ADL. 3=Patient will improve strength/tolerance for activity to enable patient to perform ADL's. OT Education/Plan Problem List/Assessment Assessment: Decreased Activ Tolerance, Decreased Safety Aware, Decreased UE Strength, Dependent Transfers, Impaired Bed Mobility, Impaired Cognition, Impaired Coordination, Impaired Funct Balance, Impaired I ADL's, Impaired Self- Care Skills, Restricted Funct UE ROM Discharge Recommendations Plan/Recommendations: Continue POC Therapy Discharge Recommendati: 24 Hour Supervision Treatment Plan/Plan of Care Treatment,Training & Education: Yes Patient would benefit from OT for education, treatment and training to promote independence in ADL's, mobility, safety and/or upper extremity function for ADL's. Plan of Care: ADL Retraining, Functional Mobility, UE Funct Exercise/Act Treatment Duration: Dec 23, 2019 Frequency: 5 times per week Estimated Hrs Per Day: .25 hour per day Agreement: Yes Rehab Potential: Guarded Time/GCodes Start Time: 08:35 Stop Time: 08:45 Total Time Billed (hr/min): 10 Billed Treatment Time 1, ADL XOCHILT SAMSON OT Dec 17, 2019 09:13
--- NOTE | 2019-12-17 09:24 | Discharge Summary ---
Diagnosis/Chief Complaint Date of Admission Dec 08, 2019 at 16:08 Date of Discharge Discharge Date: Dec 18, 2019 Discharge Time: 09:33 Admission Diagnosis Admission Diagnosis URINARY TRACT INFECTION CRITICAL ILLNESS MYOPATHY DELIRIUM ANOREXIA CACHEXIA SMALL BOWEL RESECTION DEMENTIA DIARRHEA FECAL INCONTINENCE URINARY INCONTINENCE Discharge Diagnosis URINARY TRACT INFECTION CRITICAL ILLNESS MYOPATHY DELIRIUM ANOREXIA CACHEXIA SMALL BOWEL RESECTION DEMENTIA DIARRHEA FECAL INCONTINENCE URINARY INCONTINENCE Reason Hospital Visit Pt is a 74yoCM with a PMH of COPD, HTN, HLD, and recent abdominal surgery with slow recovery who was transfer up from IRU to 4th floor due to delirium. He underwent sigmoid colon resection years ago and then presented to this hospital a couple of months ago with SBO requiring ex lap and repeat resection. He has a slow recovery and was on swing bed status here before transferring to [facility] and then to our IRU on 11/25. He had done well at first in IRU but over the past week had developed delirium and even aggressive behaviors with this. It had been arranged from him to go to [facility] for psych evaluation but family declined this. He was admitted to med/surg for continued management of his delirium as he was no long able to participate with therapy as needed. This morning he states he is feeling well and is up in his bed talking with the aide. No family at bedside at this time. When I walked in he stated "The things you see when you don't have a gun." When I asked what he meant he just laughed. Discharge Summary Discharge Physical Examination Allergies: Coded Allergies: budesonide (Verified Allergy, Severe, NUMB LIPS, 09/18/19) diphenhydramine (Verified Allergy, Severe, 09/18/19) formoterol (Verified Allergy, Severe, NUMB LIPS, 09/18/19) alprazolam (Verified Adverse Reaction, Intermediate, MENTAL MOOD CHANGE, 09/18/19) SIG OTHER SAID THE PATIENT GETS COMBATIVE,ANGRY AND VIOLENT. SHE STATES THAT HIS BEHAVIOR IS ODD AND UNLIKE HIM Vitals & I&Os Vital Signs Date Time Temp Pulse Resp B/P (MAP) Pulse Ox O2 Delivery O2 Flow Rate FiO2 12/18/19 08:00 36.4 98 20 173/91 (118) Room Air 12/17/19 15:50 97 General Appearance: Alert, No Acute Distress, Other (NOT ORIENTED TO PLACE OR TIME) HEENT: Atraumatic, PERRLA, Mucous Memb Moist/[place] Respiratory: Clear to Auscultation Cardiovascular: Regular Rate Abdominal: Normal Bowel Sounds, Soft Extremities: Other (THIN, WASTED EXTREMITIES) Skin: Other (OPEN GRANULATING WOUND IN MID LOWER ABDOMEN, SMALL ULCERATION ON BUTTOCK/SACRUM) Neuro: Other (PT IN BED) Psych/Mental Status: Other (ALERT, NO ORIENTATION TO PLACE OR TIME, APPEARS TO BE ORIENTED TO PERSON, PATIENT IS NOT COMBATIVE AT THIS ORDER PACKER'S EXAMINATION) Hospital Course Was the Problem List Reviewed?: Yes URINARY TRACT INFECTION CRITICAL ILLNESS MYOPATHY DELIRIUM ANOREXIA CACHEXIA SMALL BOWEL RESECTION DEMENTIA DIARRHEA FECAL INCONTINENCE URINARY INCONTINENCE URINARY TRACT INFECTION - KLEBSIELLA - IV ANTIBIOTICS - MONITOR URINE CULTURE - IV ANTIBIOTIC NARROWED AND ANTIBIOTICS FINISHED ON 12/15/2019 CRITICAL ILLNESS MYOPATHY - SUPPORTIVE CARE, HE CANNOT PARTICIPATE WELL WITH THERAPY DUE TO HIS DEMENTIA AND DELIRIUM, SUPPORTIVE CARE AND WE WILL NEED TO LOOK FOR A ASSISTED WHICH CAN TAKE HIM WITH HIS MULTIPLE NEEDS PLANNING ON DISCHARGE TODAY. DELIRIUM, ANOREXIA, CACHEXIA - SLIGHTLY IMPROVED APPETITE - PT ON MEGACE AND MARINOL SMALL BOWEL RESECTION WITH OPEN ABDOMINAL WOUND - WOUND CARE FOR ABDOMINAL WOUND, CONTINUES TO HEAL WITH WET TO DRY DRESSINGS. DIARRHEA WITH FECAL INCONTINENCE - IMPROVED WITH PROBIOTICS. URINARY INCONTINENCE - SUPPORTIVE CARE ONLY AT THIS TIME. ANEMIA - DUE TO EXTENSIVE ILLNESS, BLOOD LOSS AND POOR INTAKE, CHECKED IRON PANEL - DOES NOT REQUIRE IV IRON AT THIS TIME, TRANSFUSE IF NEEDED IF HGB DROPS BELOW 7. PT'S HAS FINALLY AGREED TO A FACILITY IN [place] - WE ARE MOVING FORWARD WITH THE PLANS FOR DISCHARGE TODAY - THEY HAVE AGREED TO ADMISSION TO THEIR FACILITY WITH THE SPOUSE PAYING FOR 12 HOURS OF SITTER SERVICES. HE WILL NEED TO BE EVALUATED TO SEE IF HE CAN PARTICIPATE IN THERAPIES. I HAVE INFORMED GERONIMO - HIS - THAT I FEEL LIKE HE IS DECLINING AND THAT HE NEEDS ASSISTED SERVICES AND I AM NOT SURE HE WILL BE ABLE FROM A COGNITIVE STANDPOINT TO PARTICIPATE IN THERAPIES, SHE IS INSISTENT THAT SHE FEELS LIKE HE CAN RECOVER AND COME HOME, THEREFORE SHE IS WANTING TO PUSH HIM TO GO THROUGH THERAPY. WE ARE THEREFORE DISCHARGING SOLITARIO CHEW TO [facility] FOR THERAPY SERVICES, PT/OT/SPEECH AND WOUND CARE. Pending Labs Discharge Condition at discharge FAIR Instructions to patient/family Please see electronic discharge instructions given to patient. Discharge Medications Reviewed and agree with Discharge Medication list on patient's Discharge Instruction sheet Clinical Quality Measures DVT/VTE Risk/Contraindication: Risk Factor Score Per Nursin RFS Level Per Nursing on Admit: 4+=Very High TITA LAINEZ MD Dec 17, 2019 09:24
[2019-12-17] MEDS: polyethylene glycoL POWDER 17 GM (MIRALAX) PACK PO SCH ×2 (09:31→21:35)
[2019-12-17] MEDS: SENNA W/DOCUSATE (SENOKOT S) TABLET PO SCH ×2 (09:31→21:35)
[2019-12-17] MEDS ORDERED: LOSA25TA41 PO (09:32)
[2019-12-17] MEDS ORDERED: MEGE40TA5 PO (09:32)
[2019-12-17] MEDS ORDERED: LOPE2CAP PO (09:32)
[2019-12-17] MEDS ORDERED: Dronabinol PO (09:32)
[2019-12-17] MEDS ORDERED: LACT1CAP7 PO (09:32)
[2019-12-17] MEDS ORDERED: OLAN5TAB23 PO (09:32)
[2019-12-17] MEDS ORDERED: SENN-20 PO (09:32)
[2019-12-17] MEDS ORDERED: QUET25TA73 PO (09:32)
--- NOTE | 2019-12-17 09:36 | Discharge Inst-Skilled Nursing ---
Discharge Inst-Skilled NF Reconcile Patient Problems Problems Reviewed?: Yes Patient Instructions Patient Problems: URINARY TRACT INFECTION CRITICAL ILLNESS MYOPATHY DELIRIUM ANOREXIA CACHEXIA SMALL BOWEL RESECTION DEMENTIA DIARRHEA FECAL INCONTINENCE URINARY INCONTINENCE Consult/Follow Up/Orders Follow Up Appt.: will need appt with [facility] in 2 wks - unless establishing with with provider in [place] - then follow up with provider in [place] Skilled NF Admit to: facility of patient's 's choice Certification (SNF) I certify that SNF services are required to be given on an inpatient basis jason use of the above named patient's need for senior living care on a continuing basis for the conditions(s) for which he/she was receiving inpatient hospital services prior to his/her transfer to the SNF. Halfway Facility Order: Nursing Services, Spray Gun Repairer-Evaluate & Treat, Physical Therapy-Evaluate & Treat, Speech Language-Evaluate & Treat, Wou nd Care-Eval/Treat Oxygen Delivery Method: Room Air Discharge Diet: Soft Diet Daily Activity as Tolerated: Yes Resuscitation Status: Full Code New & Resume Previous Orders New & Resume Previous Orders wet to dry dressings, change bid and prn soaking of wound in midline of mid abdomen Zayra Carpenter Dec 17, 2019 09:32 Medication List: Active Scripts Active Megestrol Acetate 40 Mg Tablet 40 Mg PO BID Acidophilus-Pectin Capsule (Lactobacillus Acidophilus/Pect) 1 Each Capsule 2 Each PO TIDWM [Dronabinol] 2.5 MG Cap 2.5 Mg PO DAILY@11,16 Senna-Time S Tablet (Sennosides/Docusate Sodium) 1 Each Tablet 1 Ea PO BID Loperamide (Loperamide HCl) 2 Mg Capsule 2 Mg PO PRN PRN Quetiapine Fumarate 25 Mg Tablet 50 Mg PO 1700 Olanzapine Odt (Olanzapine) 5 Mg Tab.rapdis 5 Mg PO HS Losartan Potassium 25 Mg Tablet 25 Mg PO DAILY Reported Ferrous Sulfate 325 Mg Tablet 325 Mg PO BID Vitamin C (Ascorbic Acid) 500 Mg Capsule 500 Mg PO DAILY Multivitamin 1 Each Tablet 1 Each PO DAILY Breo Ellipta 200-25 Mcg INH (Fluticasone/Vilanterol) 1 Each Blst.w.dev 1 Each IH DAILY Ropinirole HCl 2 Mg Tablet 2 Mg PO DAILY Protonix (Pantoprazole Sodium) 40 Mg Granpkt.dr 40 Mg PO DAILY Terazosin HCl 2 Mg Capsule 2 Mg PO BID Methotrexate (Methotrexate Sodium) 2.5 Mg Tablet 15 Mg PO WEEK TAKES 6 (2.5MG) TABS Lidocaine 1 Each Adh..patch 1 Each TP DAILY PATCH SHOULD BE REMOVE AFTER 12 HOURS Atorvastatin Calcium 10 Mg Tablet 10 Mg PO HS Lotrel 5-10 mg Capsule (Amlodipine Besylate/Benazepril) 1 Each Capsule 1 Each PO DAILY Alendronate Sodium 70 Mg Tablet 70 Mg PO MONDAY Tylenol (Acetaminophen) 325 Mg Capsule 650 Mg PO Q6H PRN Duloxetine HCl 30 Mg Capsule.dr 30 Mg PO DAILY TAKES A 30MG AND 60MG TO EQUAL 90MG DAILY Folic Acid 1 Mg Tablet 1 Mg PO DAILY Cymbalta (Duloxetine HCl) 60 Mg Capsule.dr 60 Mg PO DAILY TAKES A 30MG AND 60MG TO EQUAL 90MG DAILY Lab results: Laboratory Tests Test 12/17/19 04:45 Range/Units White Blood Count 12.3 H 4.3-11.0 10^3/uL Red Blood Count 2.88 L 4.35-5.85 10^6/uL Hemoglobin 7.6 L 13.3-17.7 G/DL Hematocrit 25 L 40-54 % Mean Corpuscular Volume 87 80-99 FL Mean Corpuscular Hemoglobin 26 25-34 PG Mean Corpuscular Hemoglobin Concent 31 L 32-36 G/DL Red Cell Distribution Width 16.5 H 10.0-14.5 % Platelet Count 455 H 130-400 10^3/uL Mean Platelet Volume 9.4 7.4-10.4 FL Sodium Level 140 135-145 MMOL/L Potassium Level 3.7 3.6-5.0 MMOL/L Chloride Level 112 H 98-107 MMOL/L Carbon Dioxide Level 21 21-32 MMOL/L Anion Gap 7 5-14 MMOL/L Blood Urea Nitrogen 17 7-18 MG/DL Creatinine 0.52 L 0.60-1.30 MG/DL Estimat Glomerular Filtration Rate > 60 BUN/Creatinine Ratio 33 Glucose Level 78 70-105 MG/DL Calcium Level 8.0 L 8.5-10.1 MG/DL My orders: Orders - ZAYRA CARPENTER MD Attending Discharge Inpt/Inobs (12/17/19 09:25) ZAYRA CARPENTER MD Dec 17, 2019 09:36
[2019-12-17] MEDS: KCL 10 MEQ TAB (MICRO K) PO SCH ×2 (11:03→17:19)
[2019-12-17] MEDS: FERROUS SULF 325 MG (IRON) TAB PO SCH (11:03)
[2019-12-17] MEDS: LACTOBACILLUS ACIDOPHILUS (PROBIOTIC) CAPSULE PO SCH ×3 (11:03→17:19)
[2019-12-17] MEDS: MEGESTROL 40 MG (MEGACE) TAB PO SCH ×2 (11:04→21:32)
[2019-12-17] MEDS: PANTOPRAZOLE 20 MG TABLET (PROTONIX) PO SCH (11:04)
[2019-12-17] MEDS: LOSARTAN 25 MG (COZAAR) TAB PO SCH (11:04)
[2019-12-17] MEDS: FOLIC ACID 1 MG TAB PO SCH (11:04)
[2019-12-17] MEDS: FAMOTIDINE 20 MG (PEPCID) TABLET PO SCH (11:04)
[2019-12-17] MEDS: ENOXAPARIN 30 MG/0.3 ML (LOVENOX) SYR SC SCH (11:12)
--- NOTE | 2019-12-17 11:14 | Physical Therapy Progress Note ---
Therapy Progress Note Patient is currently too sedated to safely perform OOB activity and is unable to stay awake to participate with bed exercises. PT will attempt this p.m. ANSLEY ARCE PT Dec 17, 2019 11:14
[2019-12-17] MEDS: DRONABINOL 2.5 MG (MARINOL) CAP PO SCH ×2 (11:17→16:23)
[2019-12-17 11:35] VITALS: BP 122/76
[2019-12-17] MEDS: NS IV 1000 ML 1,000 ML IV SCH (12:22)
--- NOTE | 2019-12-17 13:49 | NUR ---
CM/SS: Visited with spouse as to plan for discharge -spouse has determine she will not dispute the discharge. Pt at this point has been accepted by [facility] Plan: Pt was accepted to [facility], however they must have a negative COVID test, and one on one sitters in place prior if needed. Spouse does agree to the plan and reports that she is willing to pay for the sitters. Facility would like all of the things to be in place prior to pt being admitted. This worker has requested that pt be able to come there once the COVID test is back, pending them getting things set up with one on one sitters. [place] - Admission Coordinator - checking with Manager Hardware as to when pt can come. This worker requesting that pt be able to admit once negative COVID test is back. Returned call to Freda [phone], as to what day pt can be admitted. This worker will follow up with physician as to the above plan. Message sent to Dr. Carpenter - requesting a return call. Call to Dr Carpenter physician office. Left message. Addendum: 12/17/19 at [address] Carpenter notified of the plan for pt. She is agreeable at this time. Facility is working on getting the one on one sitter in place Spouse notified that Dr Carpenter is notified of the plan for pt. Spouse leaves the building as pt is sleeping most of her visit. She decides to go home and get some things done. She reports that she has notified her CPA in relation to paying for the one on one sitters at the facility. She is reminded that the facility will be back in touch with her as to the sitters. She verbalizes understanding. This worker will follow up.
--- NOTE | 2019-12-17 13:55 | Physical Therapy Progress Note ---
Therapy Progress Note Patient's spouse declined therapy due to patient is extremely lethargic and unable to actively participate with therapy. Spouse reports they are leaving and going to [place] for rehab. PT to address POC until dismissal. 1 ref ([id number]) ANSLEY ARCE PT Dec 17, 2019 13:55
[2019-12-17] MEDS: ADVAIR HFA 115/21 MCG INHALER 8 GM IH SCH ×2 (14:43→18:42)
[2019-12-17 15:50] VITALS: BP 154/93
[2019-12-17] MEDS: QUEtiapine 25 MG (SEROquel) TAB IMMEDIATE RELEASE PO SCH (16:23)
--- NOTE | 2019-12-17 16:24 | NUR ---
Tommie Barbosa Pipe Stem Aligner at [facility] has been following pt. as pt and are members of his rastafari.
--- NOTE | 2019-12-17 18:10 | NUR ---
PT STARTED TO BECOME AGITATED AND AGGRESSIVE WITH STAFF. PT HAD HAND WRAPPED AROUND CALL LIGHT AND IV LINE AT THIS TIME. THIS RN RELEASED THE IV LINE AND ATTEMPTED TO REORIENT PT. THIS RN ADMINISTERED HALDOL AT THIS TIME. PT STATED AT THIS TIME, "IM CONFUSED HELL". THIS RN AND NURSE TECH ATTEMPTED TO CALM PT, PT BECAME INCREASINGLY AGITATED AND ATTEMPTED TO PUNCH THIS RN. PT THEN ATTEMPTED TO HIT NURSE TECH WITH CALL LIGHT. 182: NURSE TECH STAYED WITH PT. THIS RN NOTIFIED TUNNEL DRIER OPERATOR OF PT BEHAVIOR. AT THIS TIME PT KNOCKED GLASS OFF OF SIDE TABLE ON TO FLOOR. THIS RN WENT TO GET HELP AND GEODON. 1830:THIS RN ADMINISTERED GEODON, WHILE NURSE TECH, LAVINIA, RN AND RT HELPED KEEP PT STILL. 183: PT CONTINUED TO BE AGITATED. PT GRADUALLY STARTED TO CALM DOWN SLIGHTLY. THIS RN REMAINED IN ROOM UNTIL 184. LIVE SITTER IN PLACE WELL TELESITTER.
[2019-12-17] MEDS: ZIPRASIDONE 20 MG INJ (GEODON) VIAL IM PRN (18:38)
[2019-12-17] MEDS: HALOPERIDOL 5 MG/ML (HALDOL) VIAL IM PRN (18:38)
[2019-12-17] MEDS: HYDROcodone/APAP 10 MG/325 MG (LORTAB) TAB PO PRN (21:32)
[2019-12-17] MEDS: OLANZapine 5 MG ODT (ZyPREXA ZYDIS) PO SCH (21:32)
[2019-12-18] MEDS: NS IV 1000 ML 1,000 ML IV SCH ×2 (03:02→15:11)
[2019-12-18] MEDS: HYDROcodone/APAP 5 MG/325 MG (LORTAB) TAB PO SCH ×3 (06:48→20:33)
[2019-12-18] MEDS: CYANOCOBALAMIN 1,000 MCG (VITAMIN B-12) TABLET PO SCH (06:48)
[2019-12-18 08:00] VITALS: BP 173/91
[2019-12-18] MEDS: MEGESTROL 40 MG (MEGACE) TAB PO SCH ×2 (08:10→20:32)
[2019-12-18] MEDS: LOSARTAN 25 MG (COZAAR) TAB PO SCH (08:10)
[2019-12-18] MEDS: FAMOTIDINE 20 MG (PEPCID) TABLET PO SCH (08:10)
[2019-12-18] MEDS: FOLIC ACID 1 MG TAB PO SCH (08:10)
[2019-12-18] MEDS: FERROUS SULF 325 MG (IRON) TAB PO SCH (08:10)
[2019-12-18] MEDS: LACTOBACILLUS ACIDOPHILUS (PROBIOTIC) CAPSULE PO SCH ×3 (08:10→17:51)
[2019-12-18] MEDS: PANTOPRAZOLE 20 MG TABLET (PROTONIX) PO SCH (08:10)
[2019-12-18] MEDS: polyethylene glycoL POWDER 17 GM (MIRALAX) PACK PO SCH ×2 (08:11→20:16)
[2019-12-18] MEDS: SENNA W/DOCUSATE (SENOKOT S) TABLET PO SCH ×2 (08:11→20:17)
[2019-12-18] MEDS: HYDROcodone/APAP 10 MG/325 MG (LORTAB) TAB PO PRN (08:19)
[2019-12-18] MEDS: ONDANSETRON 4 MG (ZOFRAN) ORAL DISSOLVE TAB PO PRN (08:19)
[2019-12-18] MEDS: KCL 10 MEQ TAB (MICRO K) PO SCH ×2 (08:41→17:51)
--- NOTE | 2019-12-18 10:39 | Physical Therapy Daily Note ---
PT Daily Note-Current Subjective Agrees to get out of bed. Requests to toilet. Mental Status Patient Orientation: Person, Confused Attachments: IV Transfers SCALE: Activities may be completed with or without assistive devices. 3-Jlmvirojxm-wmvyssu completes the activity by him/herself with no assistance from a helper. 5-Set-up or Clean-up Assistance-helper sets up or cleans up; patient completes activity. [place] assists only prior to or following the activity. 4-Supervision or Touching Assistance-helper provides verbal cues and/or touching/steadying and/or contact guard assistance as patient completes activity. Assistance may be provided throughout the activity or intermittently. 3-Partial/Moderate Assistance-helper does LESS THAN HALF the effort. [place] lifts, holds or supports trunk or limbs, but provides less than half the effort. 2-Substantial/Maximal Assistance-helper does MORE THAN HALF the effort. [place] lifts or holds trunk or limbs and provides more than half the effort. 9-Iyawggeax-btcken does ALL the effort. Patient does none of the effort to complete the activity. Or, the assistance of 2 or more helpers is required for the patient to complete the activity. If activity was not attempted, code reason: 7-Patient Refused. 9-Not Applicable-not attempted and the patient did not perform the activity before the current illness, exacerbation or injury. 10-Not Attempted due to Environmental Limitations-(lack of equipment, weather restraints, etc.). 88-Not Attempted due to Medical Conditions or Safety Concerns. Lying to Sitting/Side of Bed(Q: 4 (SBA for safety but pt able to complete without physical assist. ) Sit to Stand (QC): 3 (min to CGA to stand with cues for sequencing and correct use of walker. ) Toilet Transfer (QC): 3 (min assist with cues for hand placement and sequencing ) Weight Bearing Right Lower Extremity: Right Full Weight Bearing Left Lower Extremity: Left Full Weight Bearing Gait Training Gait Assistive Device: FWW Pt ambulated x 25 ft then 15 ft with FWW with min assist for balance. Narrow LEO with scissoring, able to turn but with assist. Unsteady with gait but able to stay upright with min assist. Treatments Bed mobility, transfers, gait and toileting. Pt up in chair post treatment with legs elevated, chair alarm activated and sitter outside door to watch him. Needs met. Assessment Cooperative and participatory today. Unsafe to mobilize without assist. PT Short Term Goals Short Term Goals Time Frame: Dec 16, 2019 Roll Left & Right: 6 Sit to lyin Lying to sitting on side of be: 5 Sit to stand: 5 Chair/tli-fr-iufll transfer: 5 PT Board Attendant Goals Group Home Goals PT Group Home Goals Time Frame: Dec 23, 2019 Roll Left & Right (QC): 6 Sit to Lying (QC): 6 Lying-Sitting on Side/Bed(QC): 6 Sit to Stand (QC): 5 Chair/Stl-sw-Kqqeu Xfer(QC): 5 Toilet Transfer (QC): 5 Car Transfer (QC): 5 Does the Patient Walk: No and Walking Goal IS indicated Walk 10 feet (QC): 5 Walk 50ft with 2 Turns (QC): 5 Walk 150 ft (QC): 5 Walking 10ft on Uneven Surface: 4 1 Step (curb) (QC): 4 4 Steps (QC): 88 12 Steps (QC): 88 Picking up an Object (QC): 88 Does the Pt use WC or Scooter?: No Wheel 50 feet with 2 turns (QC: 9 Type: N/A Wheel 150 feet: 9 Type: N/A PT Plan Problem List Problem List: Activity Tolerance, Functional Strength, Safety, Gait, Transfer Treatment/Plan Treatment Plan: Continue Plan of Care Treatment Plan: Bed Mobility, Education, Functional Activity [place], Functional Strength, Group Therapy, Gait, Safety, Therapeutic Exercise, Transfers Treatment Duration: Dec 23, 2019 Frequency: 6 times per week Estimated Hrs Per Day: .25 hour per day Patient and/or Family Agrees t: Yes Safety Risks/Education Patient Education: Safety Issues Teaching Recipient: Patient Teaching Methods: Discussion Response to Teaching: Reinforcement Needed Time/GCodes Time In: 1000 Time Out: 1024 Total Billed Treatment Time: 24 Total Billed Treatment visit FA 24 FATOUMATA GUIDRY PT Dec 18, 2019 10:39
[2019-12-18] MEDS: DRONABINOL 2.5 MG (MARINOL) CAP PO SCH ×2 (11:49→17:51)
[2019-12-18] MEDS: ENOXAPARIN 30 MG/0.3 ML (LOVENOX) SYR SC SCH (11:50)
[2019-12-18 12:00] VITALS: BP 138/66
--- NOTE | 2019-12-18 12:57 | NUR ---
RD ASSESSMENT PMHx: COPD; HTN; BPH; colitis; GERD; malnutrition; hypercholesterolemia; PT INTERACTION: Pt was awake and pleasant during nutrition follow-up. Pt states he has been eating "somewhat" since last assessment. Note avg PO intake 41% x5d, per chart review. Pt states some issues with diarrhea since last assessment. Note last BM was 12/16, and pt currently on bowel regimen of senna BID; and miralax BID, per chart review. Note recent 11# wt loss x8d, per chart review. ABNORMAL NUTRITION-RELATED LAB VALUES LOW: cr 0.52; Ca 8.0 HIGH: Cl 112 Est. kcal needs: 1775 kcal | 35 kcal/kg Est. Pro needs: 60 g Pro | 1.2 g Pro/kg PES STATEMENT: Inadequate oral intake (NI-2.1) related to loss of appetite | diarrhea as evidenced by pt interview | avg PO intake 41% x5d INTERVENTION: Continue with current diet order of DYS2 Mechanically Altered diet. Continue with current supplementation order of Ensure Enlive TID (-2-HS). Provides 350 kcal and 13 g Pro per serving. Encouraged pt to eat when able. Will continue to follow and reassess as pt needs, intake, and status change. MONITOR/EVALUATE: PO Intake; Plan of Care; Hydration Status; Weight Status; Lab Values Flaco Dave, , RD, LD
--- NOTE | 2019-12-18 13:27 | Occupational Ther Daily Note ---
OT Current Status-Daily Note Subjective Pt alert, lying in bed. Pt agrees to therapy. Pt asked "Where's the boss?", NORRIS answered "I don't know." Pt just chuckled. Mental Status/Objective Patient Orientation: Person ADL-Treatment After set up, pt able to use utensils to cut food, spear/scoop and bring to mouth. Per nrsg, pt has been incontinent and requires assist to cleanse self. After therapy, pt lying in bed finishing his lunch and reaching for a box of donuts. Call light/phone in reach. Live sitter and telesitter present. All needs met in room. Therapy Code Descriptions/Definitions Functional [place] Measure: 0=Not Assessed/NA 4=Minimal Assistance 1=Total Assistance 5=Supervision or Setup 2=Maximal Assistance 6=Modified [place] 3=Moderate Assistance 7=Complete IndependenceSCALE: Activities may be completed with or without assistive devices. 6-Eelokbsltl-cauthje completes the activity by him/herself with no assistance from a helper. 5-Set-up or Clean-up Assistance-helper sets up or cleans up; patient completes activity. [place] assists only prior to or following the activity. 4-Supervision or Touching Assistance-helper provides verbal cues and/or touching/steadying and/or contact guard assistance as patient completes activity. Assistance may be provided throughout the activity or intermittently. 3-Partial/Moderate Assistance-helper does LESS THAN HALF the effort. [place] lifts, holds or supports trunk or limbs, but provides less than half the effort. 2-Substantial/Maximal Assistance-helper does MORE THAN HALF the effort. [place] lifts or holds trunk or limbs and provides more than half the effort. 3-Nmkjvkaff-iztxcl does ALL the effort. Patient does none of the effort to complete the activity. Or, the assistance of 2 or more helpers is required for the patient to complete the activity. If activity was not attempted, code reason: 7-Patient Refused. 9-Not Applicable-not attempted and the patient did not perform the activity before the current illness, exacerbation or injury. 10-Not Attempted due to Environmental Limitations-(lack of equipment, weather restraints, etc.). 88-Not Attempted due to Medical Conditions or Safety Concerns. Eating (QC): 5 Toileting Hygiene (QC): 1 (incontinent) OT Short Term Goals Short Term Goals Time Frame: Dec 16, 2019 Eatin Oral hygiene: 3 Toileting hygiene: 2 OT Nursing Home Goals Nursing Home Goals Time Frame: Dec 23, 2019 Eating (QC): 4 Oral Hygiene (QC): 4 Toileting Hygiene (QC): 3 Additional Goals: 1-Demonstrate ADL Tasks, 2-Verbalize Understanding, 3- ImproveStrength/[place]ich[place] 1=Demonstrate adherence to instructed precautions during ADL tasks. 2=Patient will verbalize/demonstrate understanding of assistive mikey sonya/modifications for ADL. 3=Patient will improve strength/tolerance for activity to enable patient to perform ADL's. OT Education/Plan Problem List/Assessment Assessment: Decreased Activ Tolerance, Decreased Safety Aware, Decreased UE Strength, Impaired Cognition, Impaired Coordination, Impaired Funct Balance, Impaired Self-Care Skills, Restricted Funct UE ROM Discharge Recommendations Plan/Recommendations: Continue POC Treatment Plan/Plan of Care Patient would benefit from OT for education, treatment and training to promote independence in ADL's, mobility, safety and/or upper extremity function for ADL's. Plan of Care: ADL Retraining, Functional Mobility, UE Funct Exercise/Act Treatment Duration: Dec 23, 2019 Frequency: 5 times per week Estimated Hrs Per Day: .25 hour per day Agreement: Yes Rehab Potential: Guarded Time/GCodes Start Time: 13:15 Stop Time: 13:27 Total Time Billed (hr/min): 12 Billed Treatment Time 1 visit-ADL 1 (12 min) FATOUMATA DEL REAL Dec 18, 2019 13:27
[2019-12-18] MEDS: LOPERAMIDE 2 MG (IMODIUM) TABLET PO PRN ×2 (15:11→17:56)
--- NOTE | 2019-12-18 15:30 | Speech Therapy Daily Note ---
Speech Daily Progress Note Subjective Date Seen by Provider: Dec 18, 2019 Time Seen by Provider: 00:30 Patient was resting in his bed when I entered his room. Objective Patient completed a series of simple questions related to self and immediate environment with 70% accuracy. Assessment Assessment Current Status: Fair Progress Treatment Plan Continue Plan of Care Speech Short Term Goals Short Term Goals Short Term Goals 1) Patient will completed memory tasks related to his daily needs at 80% or greater with minimal cues. 2) Patient will completed safety awareness tasks related to his daily needs at 80% or greater with minimal cues. 3) Patient will completed problem solving tasks related to his daily needs at 80% or greater with minimal cues. Speech Skilled Nursing Goals Skilled Nursing Goals Patient will improve cognitive-communication necessary for safety and daily living tasks with minimal assist. Speech-Plan Patient/Family Goals Patient/Family Goals: Patient is supposed to going to a SNF soon. Treatment Plan Speech Therapy Treatment Plan: Continue Plan of Care Treatment Duration: Dec 20, 2019 Frequency: 4 times per week (Patient will receive skilled ST 4-5x per week.) Estimated Hrs Per Day: .25 hour per day Rehab Potential: Guarded Barriers to Learning: Patient's dementia, delirium Pt/Family Agrees to Plan: Yes Safety Risks/Education Teaching Recipient: Patient Teaching Methods: Discussion Response to Teaching: Verbalize Understanding, Reinforcement Needed Education Topics Provided: Continued safety Time Speech Therapy Time In: 08:10 Speech Therapy Time Out: 08:25 Total Billed Time: 15 Billed Treatment Time 1, JAE Valdes Dec 18, 2019 15:30
[2019-12-18 15:38] VITALS: BP 142/74
--- NOTE | 2019-12-18 16:25 | NUR ---
CM/SS: Telephone Call from [facility] and [facility] ([place]) is trying to reach the to obtain additional information as to sitters and pt being admitted. They have been unable to reach her today. This worker takes the phone to the room and allows spouse to talk to [facility] and [facility]. They are able to get information as to the one on one care needed for pt. Return call back to [place] to determined he received the COVID 19 test results. He reports that he did receive the results.
--- NOTE | 2019-12-18 16:34 | NUR ---
CM/SS: PT HAS BEEN ACCEPTED AT [facility] -[phone] - THEY WILL HOSPITAL SECRETARY PT AT 1:00pm on tomorrow. Spouse is informed on the picking machine operator time. MICHELLE Carlson assigned to pt is notified. Spouse reports she should have clothes for pt to wear. Spouse is given belongings bags for items she desires to take home on tonight. She also reports that she will shave pt this evening as she brought the electric shaver, and ensure that pt has clothing to wear to the facility. This worker will follow up
[2019-12-18] MEDS: QUEtiapine 25 MG (SEROquel) TAB IMMEDIATE RELEASE PO SCH (17:51)
[2019-12-18] MEDS: ADVAIR HFA 115/21 MCG INHALER 8 GM IH SCH ×2 (19:00→20:27)
[2019-12-18] MEDS: OLANZapine 5 MG ODT (ZyPREXA ZYDIS) PO SCH (20:32)
[2019-12-18] MEDS: HALOPERIDOL 5 MG/ML (HALDOL) VIAL IM PRN (20:38)
[2019-12-19] VITALS: BP 138/75
[2019-12-19 01:39] VITALS: BP 138/75
--- NOTE | 2019-12-19 05:59 | NUR ---
FATOU NOTIFIED OF INCREASING EXTREMELY FOUL SMELLING URINE, BOWEL, AND BODY ODOR. THIS RN ALSO INQUIRES IF PT WILL NEED ANY LABS PRIOR TO DC TODAY. NO NEW ORDERS OBTAINED.
[2019-12-19] MEDS: CYANOCOBALAMIN 1,000 MCG (VITAMIN B-12) TABLET PO SCH (06:23)
[2019-12-19] MEDS: HYDROcodone/APAP 5 MG/325 MG (LORTAB) TAB PO SCH ×2 (06:23→14:47)
[2019-12-19] MEDS: PANTOPRAZOLE 20 MG TABLET (PROTONIX) PO SCH (07:30)
[2019-12-19] MEDS: NS IV 1000 ML 1,000 ML IV SCH (07:30)
[2019-12-19] MEDS: MEGESTROL 40 MG (MEGACE) TAB PO SCH ×2 (07:30→22:06)
[2019-12-19] MEDS: FOLIC ACID 1 MG TAB PO SCH (07:30)
[2019-12-19] MEDS: LOSARTAN 25 MG (COZAAR) TAB PO SCH (07:30)
[2019-12-19] MEDS: FAMOTIDINE 20 MG (PEPCID) TABLET PO SCH (07:30)
[2019-12-19] MEDS: HYDROcodone/APAP 10 MG/325 MG (LORTAB) TAB PO PRN ×3 (07:31→22:06)
[2019-12-19] MEDS: KCL 10 MEQ TAB (MICRO K) PO SCH ×2 (07:31→18:46)
[2019-12-19] MEDS: ONDANSETRON 4 MG (ZOFRAN) ORAL DISSOLVE TAB PO PRN (07:31)
[2019-12-19] MEDS: LACTOBACILLUS ACIDOPHILUS (PROBIOTIC) CAPSULE PO SCH ×3 (07:31→18:49)
[2019-12-19] MEDS: FERROUS SULF 325 MG (IRON) TAB PO SCH (07:31)
[2019-12-19] MEDS: polyethylene glycoL POWDER 17 GM (MIRALAX) PACK PO SCH ×2 (07:32→21:52)
[2019-12-19] MEDS: LOPERAMIDE 2 MG (IMODIUM) TABLET PO PRN ×3 (07:32→22:06)
[2019-12-19] MEDS: SENNA W/DOCUSATE (SENOKOT S) TABLET PO SCH ×2 (07:32→21:53)
[2019-12-19] MEDS: ADVAIR HFA 115/21 MCG INHALER 8 GM IH SCH ×2 (07:45→21:53)
[2019-12-19 08:00] VITALS: BP 140/74
[2019-12-19] MEDS: DRONABINOL 2.5 MG (MARINOL) CAP PO SCH ×2 (12:22→18:47)
[2019-12-19] MEDS: ENOXAPARIN 30 MG/0.3 ML (LOVENOX) SYR SC SCH (12:22)
--- NOTE | 2019-12-19 13:00 | NUR ---
DC'D RIGHT PICC LINE PRIOR TO DISCHARGE. SITE CLEAR. STERILE DRESSING APPLIED
--- NOTE | 2019-12-19 14:08 | NUR ---
CM/SS: [facility] today as the caregiver agency fell through and the Dietary Director of [facility] facility will not accept the pt until the caregivers are in place. Dr. Carpenter is notified that pt will not be able to leave today. This worker will follow up
--- NOTE | 2019-12-19 14:57 | Occupational Ther Daily Note ---
OT Current Status-Daily Note Subjective Pt eating lunch in bed. Pt incontinent of bowel, assisting nrsg to clean pt up. present in room. Pt not discharging today. Mental Status/Objective Patient Orientation: Person Attachments: IV ADL-Treatment Pt eating using regular utensils. Pt incontinent of bowel. Assist x2 to cleanse pt and don/doff brief. After therapy, pt lying in bed with call li ght/phone in reach. All needs met in room. present in toom. Therapy Code Descriptions/Definitions Functional [place] Measure: 0=Not Assessed/NA 4=Minimal Assistance 1=Total Assistance 5=Supervision or Setup 2=Maximal Assistance 6=Modified [place] 3=Moderate Assistance 7=Complete IndependenceSCALE: Activities may be completed with or without assistive devices. 6-Gqsrlgsxwe-wlmlqjg completes the activity by him/herself with no assistance from a helper. 5-Set-up or Clean-up Assistance-helper sets up or cleans up; patient completes activity. [place] assists only prior to or following the activity. 4-Supervision or Touching Assistance-helper provides verbal cues and/or touching/steadying and/or contact guard assistance as patient completes activity. Assistance may be provided throughout the activity or intermittently. 3-Partial/Moderate Assistance-helper does LESS THAN HALF the effort. [place] lifts, holds or supports trunk or limbs, but provides less than half the effort. 2-Substantial/Maximal Assistance-helper does MORE THAN HALF the effort. [place] lifts or holds trunk or limbs and provides more than half the effort. 5-Lpcdgkhrq-cnybdw does ALL the effort. Patient does none of the effort to complete the activity. Or, the assistance of 2 or more helpers is required for the patient to complete the activity. If activity was not attempted, code reason: 7-Patient Refused. 9-Not Applicable-not attempted and the patient did not perform the activity before the current illness, exacerbation or injury. 10-Not Attempted due to Environmental Limitations-(lack of equipment, weather restraints, etc.). 88-Not Attempted due to Medical Conditions or Safety Concerns. Eating (QC): 5 Toileting Hygiene (QC): 1 OT Short Term Goals Short Term Goals Time Frame: Dec 16, 2019 Eatin Oral hygiene: 3 Toileting hygiene: 2 OT Usp Goals Usp Goals Time Frame: Dec 23, 2019 Eating (QC): 4 Oral Hygiene (QC): 4 Toileting Hygiene (QC): 3 Additional Goals: 1-Demonstrate ADL Tasks, 2-Verbalize Understanding, 3- ImproveStrength/[place]icho 1=Demonstrate adherence to instructed precautions during ADL tasks. 2=Patient will verbalize/demonstrate understanding of assistive devices/modifications for ADL. 3=Patient will improve strength/tolerance for activity to enable patient to perform ADL's. OT Education/Plan Problem List/Assessment Assessment: Decreased Activ Tolerance, Decreased Safety Aware, Decreased UE Strength, Dependent Transfers, Impaired Bed Mobility, Impaired Cognition, Impaired Self-Care Skills, Restricted Funct UE ROM Discharge Recommendations Plan/Recommendations: Continue POC Treatment Plan/Plan of Care Patient would benefit from OT for education, treatment and training to promote independence in ADL's, mobility, safety and/or upper extremity function for ADL's. Plan of Care: ADL Retraining, Functional Mobility, UE Funct Exercise/Act Treatment Duration: Dec 23, 2019 Frequency: 5 times per week Estimated Hrs Per Day: .25 hour per day Agreement: Yes Rehab Potential: Guarded Time/GCodes Start Time: 14:27 Stop Time: 14:37 Total Time Billed (hr/min): 10 Billed Treatment Time 1 visit-ADL 1 (10 min) FATOUMATA DEL REAL Dec 19, 2019 14:57
--- NOTE | 2019-12-19 15:06 | Physical Therapy Progress Note ---
Therapy Progress Note Patient and spouse declined therapy this p.m. due to patient was eating. PT will attempt in a.m. 1 ref ([id number]) ANSLEY ARCE PT Dec 19, 2019 15:06
[2019-12-19 16:00] VITALS: BP 173/91
--- NOTE | 2019-12-19 16:55 | NUR ---
Cm/SS: Freda is contacted from [facility] and asked about the caregivers and if they will be able to have it in place. He is making contact with the Care Agency. Freda returns call and reports that agency closes at 4pm and he was unable to reach them today. He reports he will be calling first thing in the morning. This worker reminds Freda the that physician wants pt to be discharged as his is ready to go. He is reminded that pt has COVID test and it was negative. He reports the test needs to be within 72 hours of admission. The requirement was met previously. This worker shares she doubts he will be retested due to the delay in the admission. This worker also reminds Freda that another placement will be sought, if he is unable to get pt moved on tomorrow. He reports his [place] still request that pt have one on one caregiver in place prior to admission. This worker will follow up first things in the morning. Spouse is aware of the delay in the Admission. She is aware that pt will remain here one more night. This worker will follow up.
[2019-12-19] MEDS: QUEtiapine 25 MG (SEROquel) TAB IMMEDIATE RELEASE PO SCH (18:47)
[2019-12-19] MEDS: OLANZapine 5 MG ODT (ZyPREXA ZYDIS) PO SCH (22:06)
[2019-12-19 23:32] VITALS: BP 133/81
[2019-12-20] MEDS: HYDROcodone/APAP 5 MG/325 MG (LORTAB) TAB PO SCH ×4 (00:17→22:59)
[2019-12-20] MEDS: NS IV 1000 ML 1,000 ML IV SCH ×2 (00:17→15:05)
[2019-12-20] MEDS: LOPERAMIDE 2 MG (IMODIUM) TABLET PO PRN ×3 (06:11→09:15)
[2019-12-20] MEDS: CYANOCOBALAMIN 1,000 MCG (VITAMIN B-12) TABLET PO SCH (06:11)
[2019-12-20 08:00] VITALS: BP 144/85
[2019-12-20] MEDS: FAMOTIDINE 20 MG (PEPCID) TABLET PO SCH (08:21)
[2019-12-20] MEDS: LACTOBACILLUS ACIDOPHILUS (PROBIOTIC) CAPSULE PO SCH ×3 (08:21→17:28)
[2019-12-20] MEDS: MEGESTROL 40 MG (MEGACE) TAB PO SCH ×2 (08:21→20:05)
[2019-12-20] MEDS: PANTOPRAZOLE 20 MG TABLET (PROTONIX) PO SCH (08:21)
[2019-12-20] MEDS: KCL 10 MEQ TAB (MICRO K) PO SCH ×2 (08:21→17:27)
[2019-12-20] MEDS: LOSARTAN 25 MG (COZAAR) TAB PO SCH (08:21)
[2019-12-20] MEDS: FOLIC ACID 1 MG TAB PO SCH (08:21)
[2019-12-20] MEDS: FERROUS SULF 325 MG (IRON) TAB PO SCH (08:21)
[2019-12-20] MEDS: SENNA W/DOCUSATE (SENOKOT S) TABLET PO SCH ×2 (08:22→20:10)
[2019-12-20] MEDS: polyethylene glycoL POWDER 17 GM (MIRALAX) PACK PO SCH ×2 (08:22→20:10)
[2019-12-20] MEDS: HALOPERIDOL 5 MG/ML (HALDOL) VIAL IM PRN (10:02)
--- NOTE | 2019-12-20 11:18 | Physical Therapy Progress Note ---
Therapy Progress Note Patient declined OOB activity this a.m. Sitter present and states he has had multiple bowel movement this a.m. and is fatigued. Spouse present. 1 ref ([id number]) ANSLEY ARCE PT Dec 20, 2019 11:18
--- NOTE | 2019-12-20 13:56 | NUR ---
CM/SS: [facility] has DECLINED to take pt for placement. They will notify the spouse that they can not take pt for placement via phone, related to being unable to set up additional caregivers for pt. They have given some suggestions as to other placements in the [place] area. This worker will follow up spouse as to where she wants to send pt.
--- NOTE | 2019-12-20 14:21 | NUR ---
CM/SS: Referral to [facility] - Returned call from [facility]: They have DECLINED to take pt as they are unable to take pt's at this time due to COVID.
[2019-12-20] MEDS: DRONABINOL 2.5 MG (MARINOL) CAP PO SCH ×2 (14:51→17:28)
[2019-12-20] MEDS: ENOXAPARIN 30 MG/0.3 ML (LOVENOX) SYR SC SCH (14:52)
[2019-12-20] MEDS: ADVAIR HFA 115/21 MCG INHALER 8 GM IH SCH (15:05)
[2019-12-20 16:13] VITALS: BP 128/78
[2019-12-20] MEDS: HYDROcodone/APAP 10 MG/325 MG (LORTAB) TAB PO PRN (17:28)
[2019-12-20] MEDS: QUEtiapine 25 MG (SEROquel) TAB IMMEDIATE RELEASE PO SCH (17:28)
--- NOTE | 2019-12-20 17:36 | NUR ---
PTS WANTS PT HAVE PRN LORTAB 10/325 MG. RN ATTEMPTED TO SCAN BARCODE IN ROOM UNDER PTS EMAR AND COMPUTER SAID THAT THE NDC NUMBER WAS NOT RECOGNIZABLE. THIS RN HAD FELLOW RN, JUANIS WORKMAN, TO ASSIST WITH ISSUE. JUANIS ATTEMPTED TWICE TO ENTER NDC NUMBER MANUALLY AND COMPUTER DID NOT RECOGNIZE NDC NUMBER EITHER. JUANIS CONTACTED INPATIENT PHARMACY WITH ISSUE AND THEY WILL WORK TO RESOLVE.
[2019-12-20] MEDS: OLANZapine 5 MG ODT (ZyPREXA ZYDIS) PO SCH (20:05)
[2019-12-21] VITALS: BP 135/81
[2019-12-21] MEDS: NS IV 1000 ML 1,000 ML IV SCH ×2 (05:53→21:44)
[2019-12-21] MEDS: CYANOCOBALAMIN 1,000 MCG (VITAMIN B-12) TABLET PO SCH (06:12)
[2019-12-21] MEDS: HYDROcodone/APAP 5 MG/325 MG (LORTAB) TAB PO SCH ×3 (06:13→21:14)
[2019-12-21] MEDS: ADVAIR HFA 115/21 MCG INHALER 8 GM IH SCH ×3 (07:29→18:47)
[2019-12-21 08:30] VITALS: BP 126/83
[2019-12-21] MEDS: PANTOPRAZOLE 20 MG TABLET (PROTONIX) PO SCH (09:14)
[2019-12-21] MEDS: FOLIC ACID 1 MG TAB PO SCH (09:14)
[2019-12-21] MEDS: MEGESTROL 40 MG (MEGACE) TAB PO SCH ×2 (09:14→21:13)
[2019-12-21] MEDS: FAMOTIDINE 20 MG (PEPCID) TABLET PO SCH (09:14)
[2019-12-21] MEDS: SENNA W/DOCUSATE (SENOKOT S) TABLET PO SCH ×2 (09:14→20:37)
[2019-12-21] MEDS: FERROUS SULF 325 MG (IRON) TAB PO SCH (09:14)
[2019-12-21] MEDS: KCL 10 MEQ TAB (MICRO K) PO SCH ×2 (09:14→18:10)
[2019-12-21] MEDS: LACTOBACILLUS ACIDOPHILUS (PROBIOTIC) CAPSULE PO SCH ×3 (09:14→18:11)
[2019-12-21] MEDS: LOSARTAN 25 MG (COZAAR) TAB PO SCH (09:14)
[2019-12-21] MEDS: polyethylene glycoL POWDER 17 GM (MIRALAX) PACK PO SCH ×2 (09:15→20:37)
[2019-12-21] MEDS: DRONABINOL 2.5 MG (MARINOL) CAP PO SCH ×2 (12:40→18:10)
[2019-12-21] MEDS: ENOXAPARIN 30 MG/0.3 ML (LOVENOX) SYR SC SCH (12:40)
--- NOTE | 2019-12-21 13:31 | Physical Therapy Daily Note ---
PT Daily Note-Current Subjective Pt. in bed, says "ok" to therapy. Pt. has spilled oatmeal in the bed, appears unaware. Mental Status Patient Orientation: Person Transfers SCALE: Activities may be completed with or without assistive devices. 9-Wmqgijpyng-pvbpmsr completes the activity by him/herself with no assistance from a helper. 5-Set-up or Clean-up Assistance-helper sets up or cleans up; patient completes activity. [place] assists only prior to or following the activity. 4-Supervision or Touching Assistance-helper provides verbal cues and/or touching/steadying and/or contact guard assistance as patient completes activity. Assistance may be provided throughout the activity or intermittently. 3-Partial/Moderate Assistance-helper does LESS THAN HALF the effort. [place] l ifts, holds or supports trunk or limbs, but provides less than half the effort. 2-Substantial/Maximal Assistance-helper does MORE THAN HALF the effort. [place] lifts or holds trunk or limbs and provides more than half the effort. 2-Sbxvxozrq-oalxis does ALL the effort. Patient does none of the effort to complete the activity. Or, the assistance of 2 or more helpers is required for t he patient to complete the activity. If activity was not attempted, code reason: 7-Patient Refused. 9-Not Applicable-not attempted and the patient did not perform the activity before the current illness, exacerbation or injury. 10-Not Attempted due to Environmental Limitations-(lack of equipment, weather restraints, etc.). 88-Not Attempted due to Medical Conditions or Safety Concerns. Lying to Sitting/Side of Bed(Q: 3 Sit to Stand (QC): 3 Weight Bearing Right Lower Extremity: Right Full Weight Bearing Left Lower Extremity: Left Full Weight Bearing Gait Training Does the Patient Walk?: Yes Distance: 125 ft Walk 10 feet (QC): 1 Gait Persons Needed: 2 Gait Assistive Device: FWW max A x 1, min A x 1 for walker management Treatments gait training Assessment Current Status: Good Progress, Fair Progress Pt. worked well with therapist today. He is confused and continues to need assist x 2 for ambulation. Pt. up in bedside chair post session with call light, chair alarm set and all needs met. PT Short Term Goals Short Term Goals Time Frame: Dec 16, 2019 Roll Left & Right: 6 Sit to lyin Lying to sitting on side of be: 5 Sit to stand: 5 Chair/oal-xn-qniew transfer: 5 PT Forge Shop Machine Repairer Goals Long-Term Goals PT Forge Shop Machine Repairer Goals Time Frame: Dec 23, 2019 Roll Left & Right (QC): 6 Sit to Lying (QC): 6 Lying-Sitting on Side/Bed(QC): 6 Sit to Stand (QC): 5 Chair/Pgk-hm-Hncva Xfer(QC): 5 Toilet Transfer (QC): 5 Car Transfer (QC): 5 Does the Patient Walk: No and Walking Goal IS indicated Walk 10 feet (QC): 5 Walk 50ft with 2 Turns (QC): 5 Walk 150 ft (QC): 5 Walking 10ft on Uneven Surface: 4 1 Step (curb) (QC): 4 4 Steps (QC): 88 12 Steps (QC): 88 Picking up an Object (QC): 88 Does the Pt use WC or Scooter?: No Wheel 50 feet with 2 turns (QC: 9 Type: N/A Wheel 150 feet: 9 Type: N/A PT Plan Treatment/Plan Treatment Plan: Continue Plan of Care Treatment Plan: Bed Mobility, Education, Functional Activity [place], Functional Strength, Group Therapy, Gait, Safety, Therapeutic Exercise, Transfers Treatment Duration: Dec 23, 2019 Frequency: 6 times per week Estimated Hrs Per Day: .25 hour per day Patient and/or Family Agrees t: Yes Time/GCodes Time In: 930 Time Out: 944 Total Billed Treatment Time: 14 Total Billed Treatment 1, GT 14' KARLO DELUCA PT Dec 21, 2019 13:31
[2019-12-21 15:17] VITALS: BP 127/96
[2019-12-21] MEDS: QUEtiapine 25 MG (SEROquel) TAB IMMEDIATE RELEASE PO SCH (18:10)
[2019-12-21] MEDS ORDERED: WATER (STERILE) FOR INJECTION 10 ML ONE (19:45)
[2019-12-21] MEDS: ZIPRASIDONE 20 MG INJ (GEODON) VIAL IM PRN (20:12)
[2019-12-21] MEDS: OLANZapine 5 MG ODT (ZyPREXA ZYDIS) PO SCH (21:13)
[2019-12-21] MEDS: LOPERAMIDE 2 MG (IMODIUM) TABLET PO PRN (21:13)
[2019-12-21] MEDS: HALOPERIDOL 5 MG/ML (HALDOL) VIAL IM PRN (23:24)
[2019-12-21 23:44] VITALS: BP 130/78
[2019-12-22] MEDS: HYDROcodone/APAP 10 MG/325 MG (LORTAB) TAB PO PRN ×3 (04:05→23:46)
[2019-12-22] MEDS: LOPERAMIDE 2 MG (IMODIUM) TABLET PO PRN (04:08)
[2019-12-22] MEDS: CYANOCOBALAMIN 1,000 MCG (VITAMIN B-12) TABLET PO SCH (06:35)
[2019-12-22] MEDS: HYDROcodone/APAP 5 MG/325 MG (LORTAB) TAB PO SCH ×3 (06:35→20:59)
[2019-12-22] MEDS: ADVAIR HFA 115/21 MCG INHALER 8 GM IH SCH ×2 (07:29→19:28)
[2019-12-22 07:30] VITALS: BP 150/82
[2019-12-22] MEDS: FOLIC ACID 1 MG TAB PO SCH (08:42)
[2019-12-22] MEDS: FERROUS SULF 325 MG (IRON) TAB PO SCH (08:42)
[2019-12-22] MEDS: LACTOBACILLUS ACIDOPHILUS (PROBIOTIC) CAPSULE PO SCH ×3 (08:42→17:48)
[2019-12-22] MEDS: PANTOPRAZOLE 20 MG TABLET (PROTONIX) PO SCH (08:42)
[2019-12-22] MEDS: LOSARTAN 25 MG (COZAAR) TAB PO SCH (08:43)
[2019-12-22] MEDS: FAMOTIDINE 20 MG (PEPCID) TABLET PO SCH (08:43)
[2019-12-22] MEDS: KCL 10 MEQ TAB (MICRO K) PO SCH ×2 (08:43→17:48)
[2019-12-22] MEDS: MEGESTROL 40 MG (MEGACE) TAB PO SCH ×2 (08:43→20:58)
[2019-12-22] MEDS: polyethylene glycoL POWDER 17 GM (MIRALAX) PACK PO SCH ×2 (09:33→19:37)
[2019-12-22] MEDS: SENNA W/DOCUSATE (SENOKOT S) TABLET PO SCH ×2 (09:33→19:37)
[2019-12-22] MEDS: DRONABINOL 2.5 MG (MARINOL) CAP PO SCH ×2 (11:06→16:12)
[2019-12-22] MEDS: ENOXAPARIN 30 MG/0.3 ML (LOVENOX) SYR SC SCH (11:06)
--- NOTE | 2019-12-22 14:00 | NUR ---
AT BEDSIDE. PATIENT SEEMED TO HAVE SOME TROUBLE SWALLOWING AND SPIT OUT PILLS AND CHOCOLATE PUDDING.
[2019-12-22 15:45] VITALS: BP 136/85
[2019-12-22] MEDS: QUEtiapine 25 MG (SEROquel) TAB IMMEDIATE RELEASE PO SCH (16:12)
[2019-12-22] MEDS: HALOPERIDOL 5 MG/ML (HALDOL) VIAL IM PRN (18:52)
[2019-12-22] MEDS: OLANZapine 5 MG ODT (ZyPREXA ZYDIS) PO SCH (20:58)
[2019-12-23] VITALS: BP 139/84
[2019-12-23] MEDS: CYANOCOBALAMIN 1,000 MCG (VITAMIN B-12) TABLET PO SCH (06:26)
[2019-12-23] MEDS: HYDROcodone/APAP 5 MG/325 MG (LORTAB) TAB PO SCH ×3 (06:27→20:35)
[2019-12-23] MEDS: ADVAIR HFA 115/21 MCG INHALER 8 GM IH SCH ×2 (06:51→19:41)
[2019-12-23 07:35] VITALS: BP 149/89
[2019-12-23] MEDS: MEGESTROL 40 MG (MEGACE) TAB PO SCH ×2 (07:56→20:34)
[2019-12-23] MEDS: PANTOPRAZOLE 20 MG TABLET (PROTONIX) PO SCH (07:56)
[2019-12-23] MEDS: FAMOTIDINE 20 MG (PEPCID) TABLET PO SCH (07:56)
[2019-12-23] MEDS: FOLIC ACID 1 MG TAB PO SCH (07:56)
[2019-12-23] MEDS: KCL 10 MEQ TAB (MICRO K) PO SCH ×2 (07:57→16:33)
[2019-12-23] MEDS: SENNA W/DOCUSATE (SENOKOT S) TABLET PO SCH ×2 (07:57→21:00)
[2019-12-23] MEDS: LOSARTAN 25 MG (COZAAR) TAB PO SCH (07:57)
[2019-12-23] MEDS: LACTOBACILLUS ACIDOPHILUS (PROBIOTIC) CAPSULE PO SCH ×3 (07:57→16:33)
[2019-12-23] MEDS: polyethylene glycoL POWDER 17 GM (MIRALAX) PACK PO SCH ×2 (07:57→21:00)
[2019-12-23] MEDS: FERROUS SULF 325 MG (IRON) TAB PO SCH (07:57)
--- NOTE | 2019-12-23 09:19 | Progress Note ---
Subjective Subjective Time Seen by Provider: 07:45 PT ALERT, EATING AND COMMUNICATING APON VISIT TODAY. ABD WOUND CLEANED AND RE- DRESSED BY NURSING STAFF DURING VISIT. Review of Systems ROS Unable to Obtain: limited by confusion General: Fatigue, Malaise Neurological: Confusion All Other Systems Reviewed All Other Systems Reviewed: No (ROS NOT REVIEWED DO TO PT AMS ) Objective Exam Vital Signs Vital Signs - First Documented 12/17/19 00:15 Temp 36.5 Pulse 80 Resp 16 B/P (MAP) 138/80 (99) Pulse Ox 99 O2 Delivery Room Air Capillary Refill : Less Than 3 Seconds General Appearance: No Apparent Distress, Cachetic Eyes: Bilateral Eye Normal Inspection, Bilateral Eye PERRL, Bilateral Eye EOMI Respiratory: Chest Non Tender, Lungs Clear, Normal Breath Sounds, Other (POOR EFFORT) Cardiovascular: Regular Rate, Rhythm, Normal Peripheral Pulses Gastrointestinal: Other (GRANULATION TISSUE IN WOUND BED, MINIMAL DISCHARGE NOTED, YELLOW/GREEN DISCHARGE ON GAUZE) Rectal: Deferred Extremity: Normal Capillary Refill Neurologic/Psychiatric: Alert Skin: Warm/Dry Results Lab Laboratory Tests 12/22/19 15:00: Microbiology 12/09/19 Urine Culture - Final, Complete Klebsiella pneumoniae Assessment/Plan Assessment/Plan 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 [facility] DENIED HIM DUE TO INABILITY TO GET HIM A ADDITIONAL CAREGIVER. DELIRIUM, ANOREXIA, CACHEXIA - SLIGHTLY IMPROVED APPETITE - PT ON MEGACE AND [place] SMALL BOWEL RESECTION WITH OPEN ABDOMINAL WOUND - WOUND CARE FOR ABDOMINAL WOUND, CONTINUES TO HEAL WITH WET TO DRY DRESSINGS. ANEMIA -REPEART CBC AND CMP. - DOES NOT REQUIRE IV IRON AT THIS TIME, TRANSFUSE IF NEEDED IF HGB DROPS BELOW 7. 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 URINARY TRACT INFECTION CRITICAL ILLNESS MYOPATHY DELIRIUM ANOREXIA CACHEXIA SMALL BOWEL RESECTION DEMENTIA DIARRHEA FECAL INCONTINENCE URINARY INCONTINENCE URINARY TRACT INFECTION - KLEBSIELLA - IV ANTIBIOTICS - MONITOR URINE CULTURE - IV ANTIBIOTIC NARROWED AND ANTIBIOTICS FINISHED ON 12/15/2019 CRITICAL ILLNESS MYOPATHY - SUPPORTIVE CARE, HE CANNOT PARTICIPATE WELL WITH THERAPY DUE TO HIS DEMENTIA AND DELIRIUM, SUPPORTIVE CARE AND WE WILL NEED TO LOOK FOR A SKILLED NURSING WHICH CAN TAKE HIM WITH HIS MULTIPLE NEEDS PLANNING ON DISCHARGE TODAY. DELIRIUM, ANOREXIA, CACHEXIA - SLIGHTLY IMPROVED APPETITE - PT ON MEGACE AND [place] SMALL BOWEL RESECTION WITH OPEN ABDOMINAL WOUND - WOUND CARE FOR ABDOMINAL WOUND, CONTINUES TO HEAL WITH WET TO DRY DRESSINGS. DIARRHEA WITH FECAL INCONTINENCE - IMPROVED WITH PROBIOTICS. URINARY INCONTINENCE - SUPPORTIVE CARE ONLY AT THIS TIME. ANEMIA - DUE TO EXTENSIVE ILLNESS, BLOOD LOSS AND POOR INTAKE, CHECKED IRON PANEL - DOES NOT REQUIRE IV IRON AT THIS TIME, TRANSFUSE IF NEEDED IF HGB DROPS BELOW 7. UNFORTUNATELY THE FACILITY IN [place] HAS DECLINED ADMISSION OF [facility] DUE TO HIS NEEDS AND THEIR INABILITY TO MEET THOSE NEEDS. WE CONTINUE TO SEARCH FOR A FACILITY TO WHICH WE CAN TRANSFER TAIMKA. CELIA PASCUAL MED STUDENT Dec 23, 2019 09:19 TITA LAINEZ MD Dec 25, 2019 12:53
--- NOTE | 2019-12-23 10:05 | Physical Therapy Daily Note ---
PT Daily Note-Current Subjective Pt awake and alert, just finishing breakfast. Agrees to go for a walk. Post walk, agrees to try to toilet. Transfers SCALE: Activities may be completed with or without assistive devices. 0-Jvngshydet-gniqjeb completes the activity by him/herself with no assistance from a helper. 5-Set-up or Clean-up Assistance-helper sets up or cleans up; patient completes activity. [place] assists only prior to or following the activity. 4-Supervision or Touching Assistance-helper provides verbal cues and/or touching/steadying and/or contact guard assistance as patient completes activity. Assistance may be provided throughout the activity or intermittently. 3-Partial/Moderate Assistance-helper does LESS THAN HALF the effort. [place] lifts, holds or supports trunk or limbs, but provides less than half the effort. 2-Substantial/Maximal Assistance-helper does MORE THAN HALF the effort. [place] lifts or holds trunk or limbs and provides more than half the effort. 5-Dbhblenfb-dahjob does ALL the effort. Patient does none of the effort to complete the activity. Or, the assistance of 2 or more helpers is required for the patient to complete the activity. If activity was not attempted, code reason: 7-Patient Refused. 9-Not Applicable-not attempted and the patient did not perform the activity b efore the current illness, exacerbation or injury. 10-Not Attempted due to Environmental Limitations-(lack of equipment, weather restraints, etc.). 88-Not Attempted due to Medical Conditions or Safety Concerns. Lying to Sitting/Side of Bed(Q: 3 (min assist iwth cues to initiate and sequence. ) Sit to Stand (QC): 3 (min assist with cues for hand placmeent and sequencing. ) Toilet Transfer (QC): 3 Pt stood at toilet as this therapist perfromed janet care; dependent for janet care and depend management. Weight Bearing Right Lower Extremity: Right Full Weight Bearing Left Lower Extremity: Left Full Weight Bearing Gait Training Does the Patient Walk?: Yes Gait Assistive Device: FWW Pt ambulated x 125 ft with FWW with min assist and a second person for safety; min to CGA with gait; scissored gait and occas steps on his own toes; unsteady; slightly retropulsive and needs assist for balance; assist to guide walker and to make turns. Treatments Gait, toileted and then was up in chair post treatment with chair alarm activiated and sitter (Jewel) present. Needs met. Pt able to complete BM while on toilet. Assessment Pt cooperative this visit. Unsafe gait without assist with narrow LEO with scissoring. PT Short Term Goals Short Term Goals Time Frame: Dec 16, 2019 Roll Left & Right: 6 Sit to lyin Lying to sitting on side of be: 5 Sit to stand: 5 Chair/esk-zp-gxzyu transfer: 5 PT Care Home Goals Billing And Quality Technician Goals PT Care Home Goals Time Frame: Dec 23, 2019 Roll Left & Right (QC): 6 Sit to Lying (QC): 6 Lying-Sitting on Side/Bed(QC): 6 Sit to Stand (QC): 5 Chair/Odc-da-Qekhg Xfer(QC): 5 Toilet Transfer (QC): 5 Car Transfer (QC): 5 Does the Patient Walk: No and Walking Goal IS indicated Walk 10 feet (QC): 5 Walk 50ft with 2 Turns (QC): 5 Walk 150 ft (QC): 5 Walking 10ft on Uneven Surface: 4 1 Step (curb) (QC): 4 4 Steps (QC): 88 12 Steps (QC): 88 Picking up an Object (QC): 88 Does the Pt use WC or Scooter?: No Wheel 50 feet with 2 turns (QC: 9 Type: N/A Wheel 150 feet: 9 Type: N/A PT Plan Problem List Problem List: Activity Tolerance, Functional Strength, Safety, Balance, Gait, Transfer Treatment/Plan Treatment Plan: Continue Plan of Care Treatment Plan: Bed Mobility, Education, Functional Activity [place], Functional Strength, Group Therapy, Gait, Safety, Therapeutic Exercise, Transfers Treatment Duration: Dec 23, 2019 Frequency: 6 times per week Estimated Hrs Per Day: .25 hour per day Patient and/or Family Agrees t: Yes Safety Risks/Education Patient Education: Safety Issues Teaching Recipient: Patient Teaching Methods: Discussion Response to Teaching: Reinforcement Needed Discharge Recommendations Therapy Discharge Recommendati: 24 Hour Supervision Time/GCodes Time In: 920 Time Out: 944 Total Billed Treatment Time: 24 Total Billed Treatment visit FA 24 FATOUMATA GUIDRY PT Dec 23, 2019 10:05
[2019-12-23 10:31] LABS: HEMOGLOBIN 9.7 G/DL (13.3-17.7); MEAN PLATELET VOLUME 9.3 FL (7.4-10.4); WHITE BLOOD COUNT 11.4 10^3/uL (4.3-11.0)
[2019-12-23 10:57] LABS: ALANINE AMINOTRANSFERASE 21 U/L (0-55); ALBUMIN 2.8 GM/DL (3.2-4.5); ALKALINE PHOSPHATASE 90 U/L (40-136); BILIRUBIN,TOTAL 0.3 MG/DL (0.1-1.0); BUN/CREATININE RATIO 36; CALCIUM 8.7 MG/DL (8.5-10.1); CARBON DIOXIDE 19 MMOL/L (21-32); CHLORIDE 113 MMOL/L (98-107); CREATININE SERUM 0.66 MG/DL (0.60-1.30); GFR ESTIMATED > 60; GLUCOSE 112 MG/DL (70-105); POTASSIUM 3.6 MMOL/L (3.6-5.0); SODIUM 143 MMOL/L (135-145); TOTAL PROTEIN 7.8 GM/DL (6.4-8.2)
--- NOTE | 2019-12-23 11:27 | Occupational Ther Daily Note ---
OT Current Status-Daily Note Subjective Pt in bed upon entry. Pt verbalizes few words, shrugs shoulders when asked if has pain. Pt agrees to allow OT to assist in brief changing, completes minimal resistive behaviors throughout. ADL-Treatment Therapy Code Descriptions/Definitions Functional [place] Measure: 0=Not Assessed/NA 4=Minimal Assistance 1=Total Assistance 5=Supervision or Setup 2=Maximal Assistance 6=Modified [place] 3=Moderate Assistance 7=Complete IndependenceSCALE: Activities may be completed with or without assistive devices. 4-Zjuzjvdgxb-xusanvd completes the activity by him/herself with no assistance from a helper. 5-Set-up or Clean-up Assistance-helper sets up or cleans up; patient completes activity. [place] assists only prior to or following the activity. 4-Supervision or Touching Assistance-helper provides verbal cues and/or touchin g/steadying and/or contact guard assistance as patient completes activity. Assistance may be provided throughout the activity or intermittently. 3-Partial/Moderate Assistance-helper does LESS THAN HALF the effort. [place] lifts, holds or supports trunk or limbs, but provides less than half the effort. 2-Substantial/Maximal Assistance-helper does MORE THAN HALF the effort. [place] lifts or holds trunk or limbs and provides more than half the effort. 2-Ynlmkmkkh-rdyygr does ALL the effort. Patient does none of the effort to complete the activity. Or, the assistance of 2 or more helpers is required for the patient to complete the activity. If activity was not attempted, code reason: 7-Patient Refused. 9-Not Applicable-not attempted and the patient did not perform the activity before the current illness, exacerbation or injury. 10-Not Attempted due to Environmental Limitations-(lack of equipment, weather restraints, etc.). 88-Not Attempted due to Medical Conditions or Safety Concerns. Eating (QC): 3 (Pt completes feeding task in bed with HOB elevated, adaptive positioning initiated under L elbow to assist in range needed for feeding task. Pt completes 4-5 bites, getting mouth each time. Pt is encouraged to take drink, unable to initiate on own, requires OT assist to hand to pt. Pt able to bring cup to mouth when in hand. Pt's nursing admin notified of pt's positioning/ assist required.) Oral Hygiene (QC): 7 Lower Body Dressing (QC): 1 Toileting Hygiene (QC): 1 Other Treatment Pt in bed. Pt pleasant through session, pt notified of soiled briefs, pt allows OT to initiate cleaning pt. During this, pt dons blanket, pt educated that OT must remove blanket from LB to assist. Pt allow for blanket to be draped over UB only during this task. exceptional children teacher assistant assists in rolling/ cleansing of pt. Pt able to follow directions with verbal/ tactile cues for rolling technique, expresses grimacing during roll. Pt denies OOB activity, allows OT to s/u feeding and pt completes as outlined above. Pt left in bed with bed rails up/ bed alarm on, call light in reach, pt's food in front of pt with pt positioned for success and nursing care attendant notified of need for assist with drinking. Education OT Patient Education: Correct positioning, Modified ADL techniques OT Short Term Goals Short Term Goals Time Frame: Dec 16, 2019 Eatin Oral hygiene: 3 Toileting hygiene: 2 OT Retirement Goals Retirement Goals Time Frame: Dec 23, 2019 Eating (QC): 4 Oral Hygiene (QC): 4 Toileting Hygiene (QC): 3 Additional Goals: 1-Demonstrate ADL Tasks, 2-Verbalize Understanding, 3- ImproveStrength/[place] 1=Demonstrate adherence to instructed precautions during ADL tasks. 2=Patient will verbalize/demonstrate understanding of assistive devices/modifications for ADL. 3=Patient will improve strength/tolerance for activity to enable patient to perform ADL's. OT Education/Plan Problem List/Assessment Assessment: Decreased Activ Tolerance, Decreased Safety Aware, Decreased UE Strength, Dependent Transfers, Impaired Bed Mobility, Impaired Cognition, Impaired Funct Balance, Impaired I ADL's, Impaired Self-Care Skills Discharge Recommendations Plan/Recommendations: Continue POC Therapy Discharge Recommendati: 24 Hour Supervision Treatment Plan/Plan of Care Treatment,Training & Education: Yes Patient would benefit from OT for education, treatment and training to promote independence in ADL's, mobility, safety and/or upper extremity function for ADL's. Plan of Care: ADL Retraining, Functional Mobility, UE Funct Exercise/Act Treatment Duration: Dec 23, 2019 Frequency: 5 times per week Estimated Hrs Per Day: .25 hour per day Agreement: Yes Rehab Potential: Guarded Time/GCodes Start Time: 07:48 Stop Time: 07:20 Total Time Billed (hr/min): 32 Billed Treatment Time 1, ADL (32) MARIA GUADALUPE FARRELL OTR Dec 23, 2019 11:27
[2019-12-23] MEDS: DRONABINOL 2.5 MG (MARINOL) CAP PO SCH ×2 (11:35→16:32)
[2019-12-23] MEDS: ENOXAPARIN 30 MG/0.3 ML (LOVENOX) SYR SC SCH (11:35)
[2019-12-23 12:00] VITALS: BP 133/92
--- NOTE | 2019-12-23 12:56 | Speech Therapy Progress Note ---
Therapy Progress Note ST discharging patient due to inability to make progress based on his mental/medical status. JAE MCGUIRE Dec 23, 2019 12:56
--- NOTE | 2019-12-23 14:45 | Physical Therapy Daily Note ---
PT Daily Note-Current Transfers SCALE: Activities may be completed with or without assistive devices. 6-Lujkhgaurd-thrrvqz completes the activity by him/herself with no assistance from a helper. 5-Set-up or Clean-up Assistance-helper sets up or cleans up; patient completes activity. [place] assists only prior to or following the activity. 4-Supervision or Touching Assistance-helper provides verbal cues and/or touching/steadying and/or contact guard assistance as patient completes activity. Assistance may be provided throughout the activity or intermittently. 3-Partial/Moderate Assistance-helper does LESS THAN HALF the effort. [place] lifts, holds or supports trunk or limbs, but provides less than half the effort. 2-Substantial/Maximal Assistance-helper does MORE THAN HALF the effort. [place] lifts or holds trunk or limbs and provides more than half the effort. 4-Jlcdkqtqu-vyxwkg does ALL the effort. Patient does none of the effort to complete the activity. Or, the assistance of 2 or more helpers is required for the patient to complete the activity. If activity was not attempted, code reason: 7-Patient Refused. 9-Not Applicable-not attempted and the patient did not perform the activity before the current illness, exacerbation or injury. 10-Not Attempted due to Environmental Limitations-(lack of equipment, weather restraints, etc.). 88-Not Attempted due to Medical Conditions or Safety Concerns. Weight Bearing Right Lower Extremity: Right Full Weight Bearing Left Lower Extremity: Left Full Weight Bearing Assessment Current Status: Fair Progress Reassessment complete. Will continue to see pt for skilled therapy to encourage functional mobiltiy and activities to progress he potential and ability to maintain mobility and quality of life. See goals for update time frame and expectations. PT Short Term Goals Short Term Goals Time Frame: Dec 16, 2019 Roll Left & Right: 6 Sit to lyin Lying to sitting on side of be: 5 Sit to stand: 5 Chair/suf-cn-xwkly transfer: 5 PT Channel Development Director Goals Alf Goals PT Alf Goals Time Frame: Jan 03, 2020 Roll Left & Right (QC): 5 Sit to Lying (QC): 5 Lying-Sitting on Side/Bed(QC): 5 Sit to Stand (QC): 4 Chair/Nom-lh-Npgkc Xfer(QC): 4 Toilet Transfer (QC): 4 Car Transfer (QC): 3 Does the Patient Walk: No and Walking Goal IS indicated Walk 10 feet (QC): 4 Walk 50ft with 2 Turns (QC): 4 Walk 150 ft (QC): 4 1 Step (curb) (QC): 4 4 Steps (QC): 88 12 Steps (QC): 88 Picking up an Object (QC): 88 Does the Pt use WC or Scooter?: No Wheel 50 feet with 2 turns (QC: 9 Type: N/A Wheel 150 feet: 9 Type: N/A PT Plan Problem List Problem List: Activity Tolerance, Functional Strength, Safety, Balance, Gait, Transfer Treatment/Plan Treatment Plan: Continue Plan of Care Treatment Plan: Bed Mobility, Education, Functional Activity [place], Functional Strength, Group Therapy, Gait, Safety, Therapeutic Exercise, Transfers Treatment Duration: Jan 03, 2020 Frequency: 5 times per week Estimated Hrs Per Day: .25 hour per day Patient and/or Family Agrees t: Yes Time/GCodes Time In: 0 Time Out: 0 Total Billed Treatment Time: 0 Total Billed Treatment reassessment FATOUMATA GUIDRY PT Dec 23, 2019 14:45
--- NOTE | 2019-12-23 15:17 | NUR ---
CM/SS: Pt is DENIED - to [facility] - requires too much care at this time
[2019-12-23 15:18] VITALS: BP 129/87
--- NOTE | 2019-12-23 15:18 | NUR ---
CM/SS: Pt DENIED for [facility] - Information sent to [facility] - [facility]. Per request. Sera requested the last two notes from Physical Therapy and Occupational Therapy. Information Reviewed. PT Denied
--- NOTE | 2019-12-23 15:21 | NUR ---
CM/SS: Visited with spouse as to plan for discharge for pt. All referrals have denied pt based on increase need and requiring one on one for assistance. Spouse reports she wants another referral sent to [facility] in [facility]. She is also given information about local facilities that have openings. Plan: Undetermined at this time Summary: Spouse wants this worker to refer to places that referrals have been previously sent. This worker shares we will not be able to do that. If pt has been denied that a new referral would not be sent. Discuss local facilities. [facility], [place], and [facility]. The only facility she wants is [facility] as she knows the business support administrator. Call to Bud Castañeda - [place] - he request a referral be sent Call to [facility] - fax number is verified and a referral sent Explore with spouse taking pt home with caregivers, as she tells this worker pt is better. Spouse does not want to take pt home as they are in the process of moving. She is reminded that pt has been here long enough. Process explained as to when there is an opening, referrals are sent so that pt can move from here and be closer to getting home. Spouse still frustrated that pt had to leave in patient rehab at the hospital. She is redirected and reminded this worker will follow up with [facility] and [facility]. This worker will follow up.
--- NOTE | 2019-12-23 15:32 | NUR ---
CM/SS: [facility] [place] [place] - [facility]
--- NOTE | 2019-12-23 15:33 | Occ Therapy Progress Note ---
Therapy Progress Note Recert due this date 12/22. Pt continues to show variance in attitude toward therapy. Pt continues to be TD with LB dressing, footwear, and toilet hygiene. LTGs continue to be appropriate: eating 4 oral care 4 toilet hygiene 3 extend LTGs an additional 2 weeks, with next recert due 01/06/20. MARIA GUADALUPE FARRELL OTR Dec 23, 2019 15:33
--- NOTE | 2019-12-23 15:33 | NUR ---
CM/SS: Referral sent to [facility] in [place], [place].
[2019-12-23] MEDS: LOPERAMIDE 2 MG (IMODIUM) TABLET PO PRN ×2 (16:33→17:36)
[2019-12-23] MEDS: QUEtiapine 25 MG (SEROquel) TAB IMMEDIATE RELEASE PO SCH (16:35)
[2019-12-23] MEDS: OLANZapine 5 MG ODT (ZyPREXA ZYDIS) PO SCH (20:34)
[2019-12-24 00:13] VITALS: BP 119/81
[2019-12-24 06:17] VITALS: BP 120/76
[2019-12-24] MEDS: HYDROcodone/APAP 5 MG/325 MG (LORTAB) TAB PO SCH ×4 (06:32→23:29)
[2019-12-24] MEDS: CYANOCOBALAMIN 1,000 MCG (VITAMIN B-12) TABLET PO SCH (06:32)
[2019-12-24 07:05] VITALS: BP 130/77
[2019-12-24] MEDS: ADVAIR HFA 115/21 MCG INHALER 8 GM IH SCH ×2 (07:55→20:32)
[2019-12-24] MEDS: MEGESTROL 40 MG (MEGACE) TAB PO SCH ×3 (08:14→23:28)
[2019-12-24] MEDS: FERROUS SULF 325 MG (IRON) TAB PO SCH (08:14)
[2019-12-24] MEDS: FAMOTIDINE 20 MG (PEPCID) TABLET PO SCH (08:14)
[2019-12-24] MEDS: FOLIC ACID 1 MG TAB PO SCH (08:14)
[2019-12-24] MEDS: PANTOPRAZOLE 20 MG TABLET (PROTONIX) PO SCH (08:14)
[2019-12-24] MEDS: KCL 10 MEQ TAB (MICRO K) PO SCH ×2 (08:14→17:12)
[2019-12-24] MEDS: LOSARTAN 25 MG (COZAAR) TAB PO SCH (08:14)
[2019-12-24] MEDS: LACTOBACILLUS ACIDOPHILUS (PROBIOTIC) CAPSULE PO SCH ×3 (08:15→17:12)
--- NOTE | 2019-12-24 08:30 | Progress Note ---
Subjective Subjective Time Seen by Provider: 07:50 PT ALERT, EATING AND COMMUNICATING APON VISIT TODAY. CBC AND CMP REPEATED YESTERDAY (12/22) SHOWED IMPROVEMENT IN ANEMIA AND INCREASE IN ALBUMIN FROM 2.3 TO 2.8 COMPARED TO 12/16 LABS.. Review of Systems ROS Unable to Obtain: limited by confusion Neurological: Confusion All Other Systems Reviewed All Other Systems Reviewed: No (ROS NOT REVIEWED DO TO PT AMS ) Objective Exam Vital Signs Vital Signs - First Documented 12/18/19 12:00 Pulse Ox 94 Capillary Refill : Less Than 3 Seconds General Appearance: No Apparent Distress, Cachetic Eyes: Bilateral Eye Normal Inspection, Bilateral Eye PERRL, Bilateral Eye EOMI Respiratory: Chest Non Tender, Lungs Clear, Normal Breath Sounds, Other (POOR EFFORT) Cardiovascular: Regular Rate, Rhythm, Normal Peripheral Pulses Gastrointestinal: Other (GRANULATION TISSUE IN WOUND BED, MINIMAL DISCHARGE NOTED, YELLOW/GREEN DISCHARGE ON GAUZE) Rectal: Deferred Extremity: Normal Capillary Refill Neurologic/Psychiatric: Alert Skin: Warm/Dry Results Lab Laboratory Tests 12/23/19 10:23: White Blood Count 11.4H, Red Blood Count 3.70L, Hemoglobin 9.7#L, Hematocrit 32L , Mean Corpuscular Volume 88, Mean Corpuscular Hemoglobin 26, Mean Corpuscular Hemoglobin Concent 30L, Red Cell Distribution Width 17.7H, Platelet Count 514H, Mean Platelet Volume 9.3, Sodium Level 143, Potassium Level 3.6, Chloride Level 113H, Carbon Dioxide Level 19L, Anion Gap 11, Blood Urea Nitrogen 24H, Creatinine 0.66, Estimat Glomerular Filtration Rate > 60, BUN/Creatinine Ratio 36, Glucose Level 112H, Calcium Level 8.7, Corrected Calcium 9.7, Total Bilirubin 0.3, Aspartate Amino Transf (AST/SGOT) 27, Alanine Aminotransferase (ALT/SGPT) 21, Alkaline Phosphatase 90, Total Protein 7.8, Albumin 2.8L Microbiology 12/09/19 Urine Culture - Final, Complete Klebsiella pneumoniae Assessment/Plan Assessment/Plan 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 [facility] DENIED HIM DUE TO INABILITY TO GET HIM A ADDITIONAL CAREGIVER. DELIRIUM, ANOREXIA, CACHEXIA - SLIGHTLY IMPROVED APPETITE - PT ON MEGACE AND [place] SMALL BOWEL RESECTION WITH OPEN ABDOMINAL WOUND - WOUND CARE FOR ABDOMINAL WOUND, CONTINUES TO HEAL WITH WET TO DRY DRESSINGS. ANEMIA -REPEARTED CMP AND CBC YESERDAY. HGB IMPROVED UP TO 9.7 FROM 7.6 ON MOST RECENT LABS. - DOES NOT REQUIRE IV IRON AT THIS TIME, TRANSFUSE IF NEEDED IF HGB DROPS BELOW 7. 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 URINARY TRACT INFECTION CRITICAL ILLNESS MYOPATHY DELIRIUM ANOREXIA CACHEXIA SMALL BOWEL RESECTION DEMENTIA DIARRHEA FECAL INCONTINENCE URINARY INCONTINENCE URINARY TRACT INFECTION - KLEBSIELLA - IV ANTIBIOTICS - MONITOR URINE CULTURE - IV ANTIBIOTIC NARROWED AND ANTIBIOTICS FINISHED ON 12/15/2019 CRITICAL ILLNESS MYOPATHY - SUPPORTIVE CARE, HE CANNOT PARTICIPATE WELL WITH THERAPY DUE TO HIS DEMENTIA AND DELIRIUM, SUPPORTIVE CARE AND WE WILL NEED TO LOOK FOR A LONGTERM WHICH CAN TAKE HIM WITH HIS MULTIPLE NEEDS PLANNING ON DISCHARGE TODAY. DELIRIUM, ANOREXIA, CACHEXIA - SLIGHTLY IMPROVED APPETITE - PT ON MEGACE AND [place] SMALL BOWEL RESECTION WITH OPEN ABDOMINAL WOUND - WOUND CARE FOR ABDOMINAL WOUND, CONTINUES TO HEAL WITH WET TO DRY DRESSINGS. DIARRHEA WITH FECAL INCONTINENCE - IMPROVED WITH PROBIOTICS. URINARY INCONTINENCE - SUPPORTIVE CARE ONLY AT THIS TIME. ANEMIA - DUE TO EXTENSIVE ILLNESS, BLOOD LOSS AND POOR INTAKE, CHECKED IRON PANEL - DOES NOT REQUIRE IV IRON AT THIS TIME, TRANSFUSE IF NEEDED IF HGB DROPS BELOW 7. CELIA PASCUAL MED STUDENT Dec 24, 2019 08:30 TITA LAINEZ MD Dec 25, 2019 12:55
--- NOTE | 2019-12-24 09:39 | NUR ---
CM/SS: [facility] in [place], [place] has DENIED placement of pt. Medical team has reviewed. Decline due to behaviors, and they are unable to have a one on one with pt. Emil, from the [facility] will notify spouse of the denial for placement. Previously called spouse prior to the decline - to request documents for the Application for the [facility]. She was going to attempt get the documents gathered and bring with her when she came for a visit.
--- NOTE | 2019-12-24 10:06 | Occupational Ther Daily Note ---
OT Current Status-Daily Note Subjective Pt seen in recliner. Nursing present, states completed sponge bath. Pt alert. Agrees to OT. ADL-Treatment Therapy Code Descriptions/Definitions Functional [place] Measure: 0=Not Assessed/NA 4=Minimal Assistance 1=Total Assistance 5=Supervision or Setup 2=Maximal Assistance 6=Modified [place] 3=Moderate Assistance 7=Complete IndependenceSCALE: Activities may be completed with or without assistive devices. 5-Zksvabjikh-xpaepnk completes the activity by him/herself with no assistance from a helper. 5-Set-up or Clean-up Assistance-helper sets up or cleans up; patient completes activity. [place] assists only prior to or following the activity. 4-Supervision or Touching Assistance-helper provides verbal cues and/or touching/steadying and/or contact guard assistance as patient completes activity. Assistance may be provided throughout the activity or intermittently. 3-Partial/Moderate Assistance-helper does LESS THAN HALF the effort. [place] lifts, holds or supports trunk or limbs, but provides less than half the effort. 2-Substantial/Maximal Assistance-helper does MORE THAN HALF the effort. [place] lifts or holds trunk or limbs and provides more than half the effort. 5-Ilmoxvnqh-mubfye does ALL the effort. Patient does none of the effort to complete the activity. Or, the assistance of 2 or more helpers is required for the patient to complete the activity. If activity was not attempted, code reason: 7-Patient Refused. 9-Not Applicable-not attempted and the patient did not perform the activity before the current illness, exacerbation or injury. 10-Not Attempted due to Environmental Limitations-(lack of equipment, weather restraints, etc.). 88-Not Attempted due to Medical Conditions or Safety Concerns. Eating (QC): 6 (Pt eating finger foods with IND.) Oral Hygiene (QC): 7 Other Treatment Pt completes 2 sit to stands with multiple trials to address functional ambulation/ standing endurance for I/ADL usage. Pt requires cues for hands during sit to stand- desiring to pull from walker. Pt requires tactile cues to bring hips forward in stance, stands with knees bent and use of min A to maintain balance as pt leaning back slightly and unable to correct with verbal/ tactile cues. Pt stands 30-45 sec both times, requiring rest breaks in between. In sit, pt completes eating tasks and dons glasses with cues. Pt left in recliner with all needs met, call light in reach, chair alarm on, pt in comfortable/ safe position. Education OT Patient Education: Correct positioning, Purpose of tx/functional activities, Safety issues, Transfer techniques Teaching Recipient: Patient Teaching Methods: Demonstration, Discussion Response to Teaching: Verbalize Understanding, Return Demonstration, Reinforcement Needed OT Short Term Goals Short Term Goals Time Frame: Dec 16, 2019 Eatin Oral hygiene: 3 Toileting hygiene: 2 OT Charrer Goals Long-Term Goals Time Frame: Dec 23, 2019 Eating (QC): 4 Oral Hygiene (QC): 4 Toileting Hygiene (QC): 3 Additional Goals: 1-Demonstrate ADL Tasks, 2-Verbalize Understanding, 3- ImproveStrength/[place]ich[place] 1=Demonstrate adherence to instructed precautions during ADL tasks. 2=Patient will verbalize/demonstrate understanding of assistive devices/modifications for ADL. 3=Patient will improve strength/tolerance for activity to enable patient to perform ADL's. OT Education/Plan Problem List/Assessment Assessment: Decreased Activ Tolerance, Decreased Safety Aware, Decreased UE St rength, Dependent Transfers, Impaired Bed Mobility, Impaired Cognition, Impaired Funct Balance, Impaired I ADL's, Impaired Self-Care Skills Discharge Recommendations Plan/Recommendations: Continue POC Therapy Discharge Recommendati: 24 Hour Supervision Treatment Plan/Plan of Care Treatment,Training & Education: Yes Patient would benefit from OT for education, treatment and training to promote independence in ADL's, mobility, safety and/or upper extremity function for ADL's. Plan of Care: ADL Retraining, Functional Mobility, UE Funct Exercise/Act Treatment Duration: Dec 23, 2019 Frequency: 5 times per week Estimated Hrs Per Day: .25 hour per day Agreement: Yes Rehab Potential: Guarded Time/GCodes Start Time: 09:09 Stop Time: 09:26 Total Time Billed (hr/min): 15 Billed Treatment Time 1, FA (15) MARIA GUADALUPE FARRELL OTR Dec 24, 2019 10:06
--- NOTE | 2019-12-24 10:20 | Physical Therapy Daily Note ---
PT Daily Note-Current Subjective Patient is in bed and incontinent BM. Agrees to PT. Mental Status Patient Orientation: Confused Transfers SCALE: Activities may be completed with or without assistive devices. 8-Odtwrvkepi-zuhnjyg completes the activity by him/herself with no assistance from a helper. 5-Set-up or Clean-up Assistance-helper sets up or cleans up; patient completes activity. [place] assists only prior to or following the activity. 4-Supervision or Touching Assistance-helper provides verbal cues and/or touching/steadying and/or contact guard assistance as patient completes activity. Assistance may be provided throughout the activity or intermittently. 3-Partial/Moderate Assistance-helper does LESS THAN HALF the effort. [place] lifts, holds or supports trunk or limbs, but provides less than half the effort. 2-Substantial/Maximal Assistance-helper does MORE THAN HALF the effort. [place] lifts or holds trunk or limbs and provides more than half the effort. 1-Roeekhmbj-vqnlic does ALL the effort. Patient does none of the effort to complete the activity. Or, the assistance of 2 or more helpers is required for the patient to complete the activity. If activity was not attempted, code reason: 7-Patient Refused. 9-Not Applicable-not attempted and the patient did not perform the activity before the current illness, exacerbation or injury. 10-Not Attempted due to Environmental Limitations-(lack of equipment, weather restraints, etc.). 88-Not Attempted due to Medical Conditions or Safety Concerns. Lying to Sitting/Side of Bed(Q: 3 Sit to Stand (QC): 3 Chair/Tuf-qx-Nglzq Xfer(QC): 3 Toilet Transfer (QC): 3 dependent assist to cleanse and change patient in restroom Weight Bearing Right Lower Extremity: Right Full Weight Bearing Left Lower Extremity: Left Full Weight Bearing Gait Training Does the Patient Walk?: Yes Distance: 275' Walk 10 feet (QC): 2 Walk 50 ft with 2 Turns(QC): 2 Walk 150 ft (QC): 2 Gait Assistive Device: FWW NBOS/scissor gait sequence with PT assist to advance FWW Assessment Patient is up in recliner with chair alarm activated. Patient tolerated treatment well. PT Short Term Goals Short Term Goals Time Frame: Dec 16, 2019 Roll Left & Right: 6 Sit to lyin Lying to sitting on side of be: 5 Sit to stand: 5 Chair/pci-bb-dppzz transfer: 5 PT Bioinformatics Scientist Goals Bioinformatics Scientist Goals PT Usp Goals Time Frame: Jan 03, 2020 Roll Left & Right (QC): 5 Sit to Lying (QC): 5 Lying-Sitting on Side/Bed(QC): 5 Sit to Stand (QC): 4 Chair/Cpj-wr-Nqqqz Xfer(QC): 4 Toilet Transfer (QC): 4 Car Transfer (QC): 3 Does the Patient Walk: No and Walking Goal IS indicated Walk 10 feet (QC): 4 Walk 50ft with 2 Turns (QC): 4 Walk 150 ft (QC): 4 1 Step (curb) (QC): 4 4 Steps (QC): 88 12 Steps (QC): 88 Picking up an Object (QC): 88 Does the Pt use WC or Scooter?: No Wheel 50 feet with 2 turns (QC: 9 Type: N/A Wheel 150 feet: 9 Type: N/A PT Plan Treatment/Plan Treatment Plan: Continue Plan of Care Treatment Plan: Bed Mobility, Education, Functional Activity [place], Functional Strength, Group Therapy, Gait, Safety, Therapeutic Exercise, Transfers Treatment Duration: Jan 03, 2020 Frequency: 5 times per week Estimated Hrs Per Day: .25 hour per day Patient and/or Family Agrees t: Yes Time/GCodes Time In: 825 Time Out: 850 Total Billed Treatment Time: 25 Total Billed Treatment 1 visit FA x 2 25 min ANSLEY ARCE PT Dec 24, 2019 10:20
[2019-12-24] MEDS: DRONABINOL 2.5 MG (MARINOL) CAP PO SCH ×2 (12:24→17:12)
[2019-12-24] MEDS: ENOXAPARIN 30 MG/0.3 ML (LOVENOX) SYR SC SCH (12:24)
--- NOTE | 2019-12-24 13:46 | NUR ---
THE PATIENT'S WANTS TO THINK ABOUT THE FLU VACCINE BEFORE DECIDING IF SHE WANTS [facility] TO GET IT THIS YEAR.
[2019-12-24] MEDS: LOPERAMIDE 2 MG (IMODIUM) TABLET PO PRN ×3 (14:10→22:20)
[2019-12-24] MEDS: HYDROcodone/APAP 10 MG/325 MG (LORTAB) TAB PO PRN (14:11)
--- NOTE | 2019-12-24 15:00 | NUR ---
patient wakes from sleep, incont. of bowel and bladder. janet cares given, barrier cream applied to reddened scrotum et bottom. pink, dime sized wound at top of gluteal cleft, cleansed, alginate dressing applied to wound with allevyn applied over top per order. will con't to monitor.
[2019-12-24 16:00] VITALS: BP 134/87
[2019-12-24] MEDS: QUEtiapine 25 MG (SEROquel) TAB IMMEDIATE RELEASE PO SCH (17:12)
--- NOTE | 2019-12-24 18:49 | NUR ---
THE PATIENT'S IS STILL UNDECIDED ABOUT THE FLU VACCINE. SHE STATED THAT SHE WILL PROBABLY WANT TO TALK TO THE DOCTOR ABOUT IT BEFORE SHE AGREES TO IT.
[2019-12-24] MEDS ORDERED: FLU QUAD HIGH DOSE 240 MCG/0.7 ML 2020-21 (FLUZONE) IM ONE (19:00)
[2019-12-24] MEDS: HALOPERIDOL 5 MG/ML (HALDOL) VIAL IM PRN (19:59)
[2019-12-24] MEDS ORDERED: WATER (STERILE) FOR INJECTION 10 ML ONE (20:00)
[2019-12-24] MEDS: ZIPRASIDONE 20 MG INJ (GEODON) VIAL IM PRN (20:05)
--- NOTE | 2019-12-24 20:05 | NUR ---
pt agitated and combative at this time, swinging at this nurse and the 2 PCCTs in room. prn med given, see EMAR
--- NOTE | 2019-12-24 20:09 | NUR ---
CM/SS: Notice of Medicare related to discharge discussed with with spouse. She is reminded that we discussed last week, however she never signed the form. She is explained the form again and requested to sign the form. Spouse reports she is NOT signing the form. She is given notice and form presented at 3:40pm on this date. This worker will initial/sign that form was discussed and that she refused to sign. This worker notified Rebecca Willis, Fertilizer Applicator - to inform that spouse would not sign the form at this time. This worker will follow up.
--- NOTE | 2019-12-24 20:15 | NUR ---
CM/SS: Telephone Call to [facility]. Talk with Fashion Journalist as to referral sent on pt. Veronique, Fashion Journalist is familiar with the spouse and family. She will need to review the information and get back with this worker. Lots of information is given to her as to pt and challenges with his care and having a one on one. They also have a no visit policy. It also sounds as if they may be lifting that soon. Returned call from Veronique, Fashion Journalist of [facility]. She needs clarification on pt's wound care orders. This worker faxes over information related to the wound care. This worker will follow up
--- NOTE | 2019-12-24 20:22 | NUR ---
CM/SS: Visit with spouse about discharge plan for pt. Plan: Undetermined at this time Summary: Spouse is furious about the [facility]. She is frustrated as the hospital notes indicate pt being confused, have delirium, and some possible psychiatric issues. She reports they will not take him due to the psyc issues and due to the one on one care needed. She reports she wants to contact the local tv station, newspaper, and her contract attorney as to the language in the medical record, as well as the [facility] not taking one of their own and providing care to him. Spouse is angry. This worker attempt to talk with spouse more about the plan for pt and that we have to focus on next steps. She is reminded that a referral is still out to [facility] in [facility]. She is also requested to call and talk with Veronique this afternoon. Not to wait until tomorrow. She verbalizes understanding. Discuss possibly taking pt home with caregivers and that pt may thrive in his own environment. She agrees and report she has thought about it. Spouse discusses her frustration as to no one not taking pt at this time. Again she is reminded to call Veronique at [facility]. She reports she will as soon as this worker finishes. This worker will follow up
--- NOTE | 2019-12-24 20:46 | NUR ---
attempt to call pt at this time, message left with this RN's number for pt to call back
[2019-12-24] MEDS: OLANZapine 5 MG ODT (ZyPREXA ZYDIS) PO SCH ×2 (22:20→23:29)
--- NOTE | 2019-12-24 22:30 | NUR ---
PATIENT REFUSED ALL HIS MEDS, THIS NURSE EDUCATED HIM ABOUT THE IMPORTANCE OF THE MEDS, PT REFUSED AND SAID "I JUST WANT YOU TO STOP BOTHERING ME AND GET OUT OF HERE".
[2019-12-24 23:52] VITALS: BP 145/96
[2019-12-25] MEDS: ONDANSETRON 4 MG (ZOFRAN) ORAL DISSOLVE TAB PO PRN (01:03)
[2019-12-25] MEDS: HYDROcodone/APAP 5 MG/325 MG (LORTAB) TAB PO SCH ×3 (06:59→22:05)
[2019-12-25] MEDS: CYANOCOBALAMIN 1,000 MCG (VITAMIN B-12) TABLET PO SCH (06:59)
[2019-12-25] MEDS: ADVAIR HFA 115/21 MCG INHALER 8 GM IH SCH ×2 (07:00→19:11)
[2019-12-25] MEDS: FERROUS SULF 325 MG (IRON) TAB PO SCH (07:59)
[2019-12-25] MEDS: KCL 10 MEQ TAB (MICRO K) PO SCH ×2 (07:59→17:24)
[2019-12-25] MEDS: LACTOBACILLUS ACIDOPHILUS (PROBIOTIC) CAPSULE PO SCH ×3 (07:59→17:24)
[2019-12-25] MEDS: MEGESTROL 40 MG (MEGACE) TAB PO SCH ×2 (07:59→20:01)
[2019-12-25 08:00] VITALS: BP 136/88
[2019-12-25] MEDS: PANTOPRAZOLE 20 MG TABLET (PROTONIX) PO SCH (08:00)
[2019-12-25] MEDS: FAMOTIDINE 20 MG (PEPCID) TABLET PO SCH (08:00)
[2019-12-25] MEDS: LOSARTAN 25 MG (COZAAR) TAB PO SCH (08:00)
[2019-12-25] MEDS: FOLIC ACID 1 MG TAB PO SCH (08:00)
--- NOTE | 2019-12-25 09:26 | Progress Note ---
Subjective Subjective Time Seen by Provider: 07:50 PT ALERT, EATING BUT NOT COMMUNICATING MUCH APON VISIT TODAY. PT WAS QUIETER THAN PAST SEVERAL VISITS. NURSE SAID HE ATE 75% OF HIS BREAKFEST THIS MORNING. PT WAS AGGRESSIVE WITH STAFF YESTERDAY EVENING. Review of Systems ROS Unable to Obtain: limited by confusion Neurological: Confusion All Other Systems Reviewed All Other Systems Reviewed: No (ROS NOT REVIEWED DO TO PT AMS ) Objective Exam Vital Signs Vital Signs - First Documented 12/19/19 00:00 Temp 36.8 Pulse 78 Resp 16 B/P (MAP) 138/75 (96) Pulse Ox 99 O2 Delivery Room Air Capillary Refill : Less Than 3 Seconds General Appearance: No Apparent Distress, Cachetic Eyes: Bilateral Eye Normal Inspection, Bilateral Eye PERRL, Bilateral Eye EOMI Respiratory: Chest Non Tender, Lungs Clear, Normal Breath Sounds, Other (POOR EFFORT) Cardiovascular: Regular Rate, Rhythm, Normal Peripheral Pulses Gastrointestinal: Other (GRANULATION TISSUE IN WOUND BED, MINIMAL DISCHARGE NOTED, YELLOW/GREEN DISCHARGE ON GAUZE) Rectal: Deferred Extremity: Normal Capillary Refill Neurologic/Psychiatric: Alert Skin: Warm/Dry Results Lab Microbiology 12/09/19 Urine Culture - Final, Complete Klebsiella pneumoniae Assessment/Plan Assessment/Plan 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 [facility] DENIED HIM DUE TO INABILITY TO GET HIM A ADDITIONAL CAREGIVER. DELIRIUM, ANOREXIA, CACHEXIA - SLIGHTLY IMPROVED APPETITE - PT ON MEGACE AND MARINOL SMALL BOWEL RESECTION WITH OPEN ABDOMINAL WOUND - WOUND CARE FOR ABDOMINAL WOUND, CONTINUES TO HEAL WITH WET TO DRY DRESSINGS. ANEMIA -REPEARTED CMP AND CBC THIS WEEK. HGB IMPROVED UP TO 9.7 FROM 7.6 ON MOST RECENT LABS. - DOES NOT REQUIRE IV IRON AT THIS TIME, TRANSFUSE IF NEEDED IF HGB DROPS BELOW 7. 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 URINARY TRACT INFECTION CRITICAL ILLNESS MYOPATHY DELIRIUM ANOREXIA CACHEXIA SMALL BOWEL RESECTION DEMENTIA DIARRHEA FECAL INCONTINENCE URINARY INCONTINENCE URINARY TRACT INFECTION - KLEBSIELLA - IV ANTIBIOTICS - MONITOR URINE CULTURE - IV ANTIBIOTIC NARROWED AND ANTIBIOTICS FINISHED ON 12/15/2019 CRITICAL ILLNESS MYOPATHY - SUPPORTIVE CARE, HE CANNOT PARTICIPATE WELL WITH THERAPY DUE TO HIS DEMENTIA AND DELIRIUM, SUPPORTIVE CARE AND WE WILL NEED TO LOOK FOR A ASSISTED WHICH CAN TAKE HIM WITH HIS MULTIPLE NEEDS PLANNING ON DISCHARGE TODAY. DELIRIUM, ANOREXIA, CACHEXIA - SLIGHTLY IMPROVED APPETITE - PT ON MEGACE AND MARIN[place] SMALL BOWEL RESECTION WITH OPEN ABDOMINAL WOUND - WOUND CARE FOR ABDOMINAL WOUND, CONTINUES TO HEAL WITH WET TO DRY DRESSINGS. DIARRHEA WITH FECAL INCONTINENCE - IMPROVED WITH PROBIOTICS. URINARY INCONTINENCE - SUPPORTIVE CARE ONLY AT THIS TIME. ANEMIA - DUE TO EXTENSIVE ILLNESS, BLOOD LOSS AND POOR INTAKE, CHECKED IRON PANEL - DOES NOT REQUIRE IV IRON AT THIS TIME, TRANSFUSE IF NEEDED IF HGB DROPS BELOW 7. STILL WAITING ON GETTING PATIENT TRANSFERRED TO ASSISTED - THE PT'S HAS NOT BEEN WILLING TO CONSIDER SEVERAL DIFFERENT SITES LOCALLY AND HAS BEEN PERSISTENTLY DRAGGING HER FEET ON MEETING AND CONVERSING ABOUT THE FACILITIES SHE IS WILLING TO CONSIDER FOR HIS TRANSFER. SHE HAS BEEN PUSHING TO HAVE THE PLACES THAT HE HAS PREVIOUSLY BEEN EVALUATED BY TO BE RE-REFERRED TO, WHICH IS NOT SOMETHING THAT WE CAN CONTINUE TO DO. SHE HAD INDICATED TO THE EXERCISE PHYSIOLOGIST CERTIFIED THAT HER GOAL WAS TO KEEP TAMIKA IN THE HOSPITAL LONG POSSIBLE. SHE HAS ESSENTIALLY ROAD-BLOCKED MULTIPLE DIFFERENT ATTEMPTS FOR DISCHARGE AND HAS ESSENTIALLY ACHIEVED HAVING HIM STAY HERE FOR ANOTHER TWO WEEKS BEYOND WHEN HE COULD REASONABLY BE DISCHARGED. I HAVE DISCUSSED HIS CASE MULTIPLE TIMES WITH GERONIMO, AND SHE IS "NOT ON THE SAME PAGE" PER HER REPORT IN THAT SHE FEELS LIKE HE NEEDS TO BE IN A HOSPITAL SO SHE CAN VISIT HIM. I HAVE INFORMED HER THAT HE IS DECLINING AND IS EXPECTED TO CONTINUE TO DECLINE PHYSICALLY AND MENTALLY DUE TO HIS DEMENTIA AND HIS DECREASED APPETITE AND POOR INTAKE. SHE IS NOT UNDERSTANDING OR CHOOSES TO IGNORE MY CONCERNS STATING THAT SHE FEELS IF HE CAN FULLY RECOVER. CELIA PASCUAL MED STUDENT Dec 25, 2019 09:26 TITA LAINEZ MD Dec 25, 2019 13:09
--- NOTE | 2019-12-25 10:04 | Physical Therapy Daily Note ---
PT Daily Note-Current Subjective Patient in bed pre tx, agrees to PT, voices no complaints of pain, has had a BM in the bed. Appearance Patient in recliner post tx with nurse call, tray, sitter in room. Mental Status Patient Orientation: Person, Confused, Mumbles Transfers SCALE: Activities may be completed with or without assistive devices. 8-Bpgzvbvknl-kyesmlv completes the activity by him/herself with no assistance from a helper. 5-Set-up or Clean-up Assistance-helper sets up or cleans up; patient completes a ctivity. [place] assists only prior to or following the activity. 4-Supervision or Touching Assistance-helper provides verbal cues and/or touching/steadying and/or contact guard assistance as patient completes activity. Assistance may be provided throughout the activity or intermittently. 3-Partial/Moderate Assistance-helper does LESS THAN HALF the effort. [place] lifts, holds or supports trunk or limbs, but provides less than half the effort. 2-Substantial/Maximal Assistance-helper does MORE THAN HALF the effort. [place] lifts or holds trunk or limbs and provides more than half the effort. 9-Chmyuvdej-ngnbws does ALL the effort. Patient does none of the effort to complete the activity. Or, the assistance of 2 or more helpers is required for the patient to complete the activity. If activity was not attempted, code reason: 7-Patient Refused. 9-Not Applicable-not attempted and the patient did not perform the activity before the current illness, exacerbation or injury. 10-Not Attempted due to Environmental Limitations-(lack of equipment, weather restraints, etc.). 88-Not Attempted due to Medical Conditions or Safety Concerns. Roll Left & Right (QC): 3 Lying to Sitting/Side of Bed(Q: 3 Sit to Stand (QC): 3 Chair/Zdq-xl-Ocfsx Xfer(QC): 3 Patient has to roll a couple of times to each side for cleaning and changing brief due to BM. Weight Bearing Right Lower Extremity: Right Full Weight Bearing Left Lower Extremity: Left Full Weight Bearing Gait Training Distance: 200' Walk 10 feet (QC): 3 Walk 50 ft with 2 Turns(QC): 3 Walk 150 ft (QC): 3 Gait Persons Needed: 1 Gait Assistive Device: FWW Patient is unsteady, needs min assist to maintain balance, severe scissoring during ambulation Treatments bed mobility and transfers, ambulation Assessment Current Status: Poor Progress no change in mobility PT Short Term Goals Short Term Goals Time Frame: Dec 16, 2019 Roll Left & Right: 6 Sit to lyin Lying to sitting on side of be: 5 Sit to stand: 5 Chair/tcd-wi-uhroz transfer: 5 PT [facility] Goals Delivery And Installation Subcontractor Goals PT [facility] Goals Time Frame: Jan 03, 2020 Roll Left & Right (QC): 5 Sit to Lying (QC): 5 Lying-Sitting on Side/Bed(QC): 5 Sit to Stand (QC): 4 Chair/Luf-yh-Eupvs Xfer(QC): 4 Toilet Transfer (QC): 4 Car Transfer (QC): 3 Does the Patient Walk: No and Walking Goal IS indicated Walk 10 feet (QC): 4 Walk 50ft with 2 Turns (QC): 4 Walk 150 ft (QC): 4 1 Step (curb) (QC): 4 4 Steps (QC): 88 12 Steps (QC): 88 Picking up an Object (QC): 88 Does the Pt use WC or Scooter?: No Wheel 50 feet with 2 turns (QC: 9 Type: N/A Wheel 150 feet: 9 Type: N/A PT Plan Problem List Problem List: Activity Tolerance, Functional Strength, Safety, Balance, Gait, Transfer, Bed Mobility, ROM Treatment/Plan Treatment Plan: Continue Plan of Care Treatment Plan: Bed Mobility, Education, Functional Activity [place], Functional Strength, Group Therapy, Gait, Safety, Therapeutic Exercise, Transfers Treatment Duration: Jan 03, 2020 Frequency: 5 times per week Estimated Hrs Per Day: .25 hour per day Patient and/or Family Agrees t: Yes Safety Risks/Education Patient Education: Gait Training, Transfer Techniques, Correct Positioning, Safety Issues Teaching Recipient: Patient Teaching Methods: Demonstration, Discussion Response to Teaching: Reinforcement Needed Time/GCodes Time In: 0940 Time Out: 957 Total Billed Treatment Time: 18 Total Billed Treatment 1 visit FA Ramiro' ANNEMARIE CROFT PT Dec 25, 2019 10:04
[2019-12-25] MEDS: ENOXAPARIN 30 MG/0.3 ML (LOVENOX) SYR SC SCH (12:23)
[2019-12-25] MEDS: DRONABINOL 2.5 MG (MARINOL) CAP PO SCH ×2 (12:23→17:24)
--- NOTE | 2019-12-25 12:36 | Occupational Ther Daily Note ---
OT Current Status-Daily Note Subjective No pain reported. Appearance Pt. in bed when OT entered room. Mental Status/Objective Patient Orientation: Unable to Assess ADL-Treatment Therapy Code Descriptions/Definitions Functional Hyde Measure: 0=Not Assessed/NA 4=Minimal Assistance 1=Total Assistance 5=Supervision or Setup 2=Maximal Assistance 6=Modified Hyde 3=Moderate Assistance 7=Complete IndependenceSCALE: Activities may be completed with or without assistive devices. 9-Tyyuvghnic-ifyonbj completes the activity by him/herself with no assistance from a helper. 5-Set-up or Clean-up Assistance-helper sets up or cleans up; patient completes activity. [place] assists only prior to or following the activity. 4-Supervision or Touching Assistance-helper provides verbal cues and/or touching/steadying and/or contact guard assistance as patient completes activity. Assistance may be provided throughout the activity or intermittently. 3-Partial/Moderate Assistance-helper does LESS THAN HALF the effort. [place] lifts, holds or supports trunk or limbs, but provides less than half the effort. 2-Substantial/Maximal Assistance-helper does MORE THAN HALF the effort. [place] lifts or holds trunk or limbs and provides more than half the effort. 6-Tlbhqbfbq-mzacxl does ALL the effort. Patient does none of the effort to complete the activity. Or, the assistance of 2 or more helpers is required for the patient to complete the activity. If activity was not attempted, code reason: 7-Patient Refused. 9-Not Applicable-not attempted and the patient did not perform the activity before the current illness, exacerbation or injury. 10-Not Attempted due to Environmental Limitations-(lack of equipment, weather restraints, etc.). 88-Not Attempted due to Medical Conditions or Safety Concerns. On/Off Footwear: 1 Toileting Hygiene (QC): 1 Other Treatment OT entered room. Pt. had been incontinent and nursing/PT cleansing him in bed. OT assisted and pt. requires max assist to roll side to side, and dependent assist for janet cleanse. Pt. transferred supine-sit with max assist. Ambulated down ortega and back to room, (please see PT note), with assist x 2 people. OT facilitated hand placement and upright balance while PT focused on posture and scissoring during ambulation. Pt. ambulated back to chair in room with walker, with min assist x 2. All needs met and pt. up in room with sitter. Education OT Patient Education: Correct positioning, Modified ADL techniques, Progress toward Goal/Update tx plan, Purpose of tx/functional activities, Reviewed precautions, Rehab process, Transfer techniques Teaching Recipient: Patient Teaching Methods: Demonstration, Discussion Response to Teaching: Reinforcement Needed OT Short Term Goals Short Term Goals Time Frame: Dec 16, 2019 Eatin Oral hygiene: 3 Toileting hygiene: 2 OT Fpc Goals Fpc Goals Time Frame: Dec 23, 2019 Eating (QC): 4 Oral Hygiene (QC): 4 Toileting Hygiene (QC): 3 Additional Goals: 1-Demonstrate ADL Tasks, 2-Verbalize Understanding, 3- ImproveStrength/[place] 1=Demonstrate adherence to instructed precautions during ADL tasks. 2=Patient will verbalize/demonstrate understanding of assistive devices/modifications for ADL. 3=Patient will improve strength/tolerance for activity to enable patient to perform ADL's. OT Education/Plan Problem List/Assessment Assessment: Decreased Activ Tolerance, Decreased Safety Aware, Decreased UE Strength, Dependent Transfers, Impaired Bed Mobility, Impaired Cognition, Impaired Coordination, Impaired Funct Balance, Impaired I ADL's, Impaired Self- Care Skills, Restricted Funct UE ROM Discharge Recommendations Plan/Recommendations: Continue POC Therapy Discharge Recommendati: 24 Hour Supervision Treatment Plan/Plan of Care Treatment,Training & Education: Yes Patient would benefit from OT for education, treatment and training to promote independence in ADL's, mobility, safety and/or upper extremity function for ADL's. Plan of Care: ADL Retraining, Functional Mobility, UE Funct Exercise/Act Treatment Duration: Dec 23, 2019 Frequency: 5 times per week Estimated Hrs Per Day: .25 hour per day Agreement: Yes Rehab Potential: Guarded Time/GCodes Start Time: 09:45 Stop Time: 10:05 Total Time Billed (hr/min): 20 Billed Treatment Time 1, XOCHILT LOU OT Dec 25, 2019 12:36
--- NOTE | 2019-12-25 13:26 | NUR ---
"RD ASSESSMENT PMHx: COPD; HTN; BPH; colitis; GERD; malnutrition; hypercholesterolemia; PT INTERACTION: Pt was awake and pleasant during nutrition follow-up. Pt states he has been eating alright since last assessment. Note avg PO intake 73% x4d, per chart review. Pt states some issues with nausea and vomiting. Note last BM was 12/23, and pt currently on bowel regimen of colace PRN; and bisacodyl PRN, per chart review. ABNORMAL NUTRITION-RELATED LAB VALUES LOW: CL 113; BUN 24; glu 112 HIGH: alb 2.8 Est. kcal needs: 1825 kcal | 35 kcal/kg Est. Pro needs: 62 g Pro | 1.2 g Pro/kg PES STATEMENT: Given current PO intake, no nutrition needs at this time (NO-1.1) INTERVENTION: Continue with current diet order of DYS2 Mechanically Altered diet. Continue with current supplementation order of Ensure HP (vary) TID (10-2-HS), for increased kcal intake. Provides 160 kcal and 16 g Pro per serving. Will continue to follow and reassess as pt needs, intake, and status change. Flaco Dave, MS, RD, LD"
[2019-12-25 15:51] VITALS: BP 112/78
--- NOTE | 2019-12-25 16:07 | NUR ---
CM/SS: Visited with spouse as to plan for discharge Plan: Undetermined at this time Summary: Spouse is educated again on pt needing to be discharge. She again has other options of placements that she wants pt to be referred. [facility], and [facility] in [place], [place]. Does agree to [facility], and facilities in [facility]. Discussed need for pt to be discharged - Rebecca Willis, Calculus Professor of Risk Management is requested to come speak with spouse. She reiterates that Pt is needing to discharge. Spouse expresses her concerns about medical information in record etc. She is redirected and asked about pt coming home, she indicates she is moving and pt can not come home. This worker will follow up.
--- NOTE | 2019-12-25 16:16 | NUR ---
CM/SS: Referral to [facility] - [place], [place] - Skilled placement
--- NOTE | 2019-12-25 16:17 | NUR ---
CM/SS: Referral to [facility] - they are full currently and will have a bed in a day or so
--- NOTE | 2019-12-25 16:18 | NUR ---
CM/SS: Referral to [facility] - Skilled bed placement -
--- NOTE | 2019-12-25 16:20 | NUR ---
CM/SS: [facility] [place] has DENIED pt for placement
--- NOTE | 2019-12-25 16:30 | NUR ---
CM/SS: [facility] ARE FULL AND CANNOT TAKE PT FOR PLACEMENT
[2019-12-25] MEDS: QUEtiapine 25 MG (SEROquel) TAB IMMEDIATE RELEASE PO SCH (17:25)
[2019-12-25] MEDS: ZIPRASIDONE 20 MG INJ (GEODON) VIAL IM PRN (17:25)
[2019-12-25] MEDS: OLANZapine 5 MG ODT (ZyPREXA ZYDIS) PO SCH (20:01)
[2019-12-25] MEDS: HALOPERIDOL 5 MG/ML (HALDOL) VIAL IM PRN (20:02)
[2019-12-25 23:57] VITALS: BP 153/77
[2019-12-26] MEDS: CYANOCOBALAMIN 1,000 MCG (VITAMIN B-12) TABLET PO SCH (06:25)
[2019-12-26] MEDS: HYDROcodone/APAP 5 MG/325 MG (LORTAB) TAB PO SCH ×3 (06:25→21:16)
[2019-12-26] MEDS: ADVAIR HFA 115/21 MCG INHALER 8 GM IH SCH ×2 (07:47→20:18)
[2019-12-26 08:00] VITALS: BP 142/88
--- NOTE | 2019-12-26 08:50 | Progress Note ---
Subjective Subjective Date Seen by Provider: Dec 26, 2019 Time Seen by Provider: 08:50 PT IS CONFUSED, STAFF REPORTS THAT HE HAS BEEN FEELING BETTER, EATING WELL TODAY. HE DENIES CHEST PAIN, SHORTNESS OF BREATH Review of Systems ROS Unable to Obtain: limited by confusion General: Fatigue, Malaise Neurological: Confusion OPEN ABDOMINAL WOUND, CONFUSION AND COMBATIVENESS All Other Systems Reviewed All Other Systems Reviewed: No (ROS NOT REVIEWED DO TO PT AMS ) Objective Exam Vital Signs Vital Signs - First Documented Capillary Refill : Less Than 3 Seconds General Appearance: No Apparent Distress, Cachetic Eyes: Bilateral Eye Normal Inspection, Bilateral Eye PERRL, Bilateral Eye EOMI Respiratory: Chest Non Tender, Lungs Clear, Normal Breath Sounds, Other (POOR EFFORT) Cardiovascular: Regular Rate, Rhythm, Normal Peripheral Pulses Gastrointestinal: Other (GRANULATION TISSUE IN WOUND BED, MINIMAL DISCHARGE NOTED, YELLOW/GREEN DISCHARGE ON GAUZE) Rectal: Deferred Extremity: Normal Capillary Refill Neurologic/Psychiatric: Alert Skin: Warm/Dry Results Lab Microbiology 12/09/19 Urine Culture - Final, Complete Klebsiella pneumoniae Assessment/Plan Assessment/Plan Admission Dx URINARY TRACT INFECTION CRITICAL ILLNESS MYOPATHY DELIRIUM ANOREXIA CACHEXIA SMALL BOWEL RESECTION DEMENTIA DIARRHEA FECAL INCONTINENCE URINARY INCONTINENCE Assessment and Plan URINARY TRACT INFECTION CRITICAL ILLNESS MYOPATHY DELIRIUM ANOREXIA CACHEXIA SMALL BOWEL RESECTION DEMENTIA DIARRHEA FECAL INCONTINENCE URINARY INCONTINENCE URINARY TRACT INFECTION - KLEBSIELLA - IV ANTIBIOTICS - MONITOR URINE CULTURE - IV ANTIBIOTIC NARROWED AND ANTIBIOTICS FINISHED ON 12/15/2019 CRITICAL ILLNESS MYOPATHY - SUPPORTIVE CARE, HE CANNOT PARTICIPATE WELL WITH THERAPY DUE TO HIS DEMENTIA AND DELIRIUM, SUPPORTIVE CARE AND WE WILL NEED TO LOOK FOR A CUSTODIAL WHICH CAN TAKE HIM WITH HIS MULTIPLE NEEDS. I HAD A PROLONGED DISCUSSION WITH GERONIMO ON MONDAY - SHE HAS GIVEN THE MOTORCOACH OPERATOR PERMISSION TO CONTACT THE [facility] IN [facility]. WE ARE WAITING TO HEAR FROM THEM ON IF THEY WILL TAKE HIM A PATIENT. SHE TOLD THE MOTORCOACH OPERATOR THAT WE DID NOT AGREE ON HIS CARE BECAUSE SHE WAS AN OPTIMIST AND THIS UM NURSE WAS NOT, AND SHE WOULD NOT LET HIM GO TO A CUSTODIAL BECAUSE SHE WAS NOT WILLING TO GIVE UP HER PRIVILEGE OF SEEING HIM EVERY DAY. DELIRIUM, ANOREXIA, CACHEXIA - SLIGHTLY IMPROVED APPETITE - PT ON MEGACE AND MARINOL SMALL BOWEL RESECTION WITH OPEN ABDOMINAL WOUND - WOUND CARE FOR ABDOMINAL WOUND, CONTINUES TO HEAL WITH WET TO DRY DRESSINGS. DIARRHEA WITH FECAL INCONTINENCE - IMPROVED WITH PROBIOTICS. URINARY INCONTINENCE - SUPPORTIVE CARE ONLY AT THIS TIME. ANEMIA - DUE TO EXTENSIVE ILLNESS, BLOOD LOSS AND POOR INTAKE, CHECKED IRON PANEL - DOES NOT REQUIRE IV IRON AT THIS TIME, TRANSFUSE IF NEEDED IF HGB DROPS BELOW 7. PLACEMENT IS A HUGE MONIKA WITH THIS PATIENT DUE TO HIS SPOUSE REFUSING TO CONSIDER CUSTODIAL PLACEMENT. SHE WAS TOLD LAST MONDAY THAT THE PLAN WOULD BE TO GET HIM TO A FACILITY BY MONDAY - HOWEVER SHE ADMITTED TO "DRAGGING MY FEET" AND SHE WAS INFORMED ON MONDAY OF LAST WEEK THAT THE PLAN WOULD BE TO GET HIM TO A FACILITY ON MONDAY SINCE HIS ANTIBIOTICS WOULD NO LONGER BE NEEDED AFTER THE WEEKEND. SHE IS AWARE OF THIS PLAN MYSELF AND THE MOTORCOACH OPERATOR HAVE DISCUSSED WITH HER THE PLAN. I WILL MOVE FORWARD WITH THE DISCHARGE PLAN DESPITE HER DESIRE TO KEEP HIM IN THE HOSPITAL SO THAT SHE CAN VISIT HIM DAILY. Admission Dx URINARY TRACT INFECTION CRITICAL ILLNESS MYOPATHY DELIRIUM ANOREXIA CACHEXIA SMALL BOWEL RESECTION DEMENTIA DIARRHEA FECAL INCONTINENCE URINARY INCONTINENCE Clinical Quality Measures Admission Status Admission Dx URINARY TRACT INFECTION CRITICAL ILLNESS MYOPATHY DELIRIUM ANOREXIA CACHEXIA SMALL BOWEL RESECTION DEMENTIA DIARRHEA FECAL INCONTINENCE URINARY INCONTINENCE DVT/VTE Risk/Contraindication: Risk Factor Score Per Nursin RFS Level Per Nursing on Admit: 4+=Very High TITA LAINEZ MD Dec 26, 2019 08:50
[2019-12-26 09:19] LABS: MEAN PLATELET VOLUME 9.7 fL (9.0-12.2); WHITE BLOOD COUNT 13.2 10^3/uL (4.3-11.0)
[2019-12-26] MEDS: FERROUS SULF 325 MG (IRON) TAB PO SCH (09:25)
[2019-12-26] MEDS: KCL 10 MEQ TAB (MICRO K) PO SCH ×2 (09:25→17:25)
[2019-12-26] MEDS: FOLIC ACID 1 MG TAB PO SCH (09:25)
[2019-12-26] MEDS: MEGESTROL 40 MG (MEGACE) TAB PO SCH ×2 (09:25→21:16)
[2019-12-26] MEDS: FAMOTIDINE 20 MG (PEPCID) TABLET PO SCH (09:25)
[2019-12-26] MEDS: LOSARTAN 25 MG (COZAAR) TAB PO SCH (09:25)
[2019-12-26] MEDS: LACTOBACILLUS ACIDOPHILUS (PROBIOTIC) CAPSULE PO SCH ×3 (09:25→17:25)
[2019-12-26] MEDS: PANTOPRAZOLE 20 MG TABLET (PROTONIX) PO SCH (09:25)
[2019-12-26 09:35] LABS: ALANINE AMINOTRANSFERASE 17 U/L (0-55); ALBUMIN 2.9 GM/DL (3.2-4.5); ALKALINE PHOSPHATASE 92 U/L (40-136); BILIRUBIN,TOTAL 0.4 MG/DL (0.1-1.0); BUN/CREATININE RATIO 29; CALCIUM 8.7 MG/DL (8.5-10.1); CARBON DIOXIDE 23 MMOL/L (21-32); CHLORIDE 107 MMOL/L (98-107); CREATININE SERUM 0.62 MG/DL (0.60-1.30); GFR ESTIMATED > 60; GLUCOSE 82 MG/DL (70-105); POTASSIUM 3.5 MMOL/L (3.6-5.0); SODIUM 140 MMOL/L (135-145); TOTAL PROTEIN 8.2 GM/DL (6.4-8.2)
--- NOTE | 2019-12-26 10:01 | Physical Therapy Daily Note ---
PT Daily Note-Current Subjective Patient is in bed and incontinent urine. Agrees to PT. Mental Status Patient Orientation: Confused Transfers SCALE: Activities may be completed with or without assistive devices. 2-Cpgbwsnbgc-wrxjeus completes the activity by him/herself with no assistance from a helper. 5-Set-up or Clean-up Assistance-helper sets up or cleans up; patient completes activity. [place] assists only prior to or following the activity. 4-Supervision or Touching Assistance-helper provides verbal cues and/or touching/steadying and/or contact guard assistance as patient completes activity. Assistance may be provided throughout the activity or intermittently. 3-Partial/Moderate Assistance-helper does LESS THAN HALF the effort. [place] lifts, holds or supports trunk or limbs, but provides less than half the effort. 2-Substantial/Maximal Assistance-helper does MORE THAN HALF the effort. [place] lifts or holds trunk or limbs and provides more than half the effort. 0-Fofcakhuy-akzret does ALL the effort. Patient does none of the effort to complete the activity. Or, the assistance of 2 or more helpers is required for the patient to complete the activity. If activity was not attempted, code reason: 7-Patient Refused. 9-Not Applicable-not attempted and the patient did not perform the activity before the current illness, exacerbation or injury. 10-Not Attempted due to Environmental Limitations-(lack of equipment, weather restraints, etc.). 88-Not Attempted due to Medical Conditions or Safety Concerns. Lying to Sitting/Side of Bed(Q: 3 Sit to Stand (QC): 2 Chair/Mtp-bw-Adypk Xfer(QC): 2 Patient is retropulsive with sit to stand transfers with PT correct Weight Bearing Right Lower Extremity: Right Full Weight Bearing Left Lower Extremity: Left Full Weight Bearing Gait Training Does the Patient Walk?: Yes Distance: 275' Walk 10 feet (QC): 2 Walk 50 ft with 2 Turns(QC): 2 Walk 150 ft (QC): 2 Gait Assistive Device: FWW PT assist to advance FWW and for patient safety. Severe scissor gait sequence and flexed knee posture. Unable to correct due to confusion. Assessment Patient is up in recliner with chair alarm activated. Patient continues to require max to mod assist with all mobility due to debility and being unaware of situation or safety. PT Short Term Goals Short Term Goals Time Frame: Dec 16, 2019 Roll Left & Right: 6 Sit to lyin Lying to sitting on side of be: 5 Sit to stand: 5 Chair/umj-wd-jzctw transfer: 5 PT Quality Assurance Specialist Goals Alf Goals PT Alf Goals Time Frame: Jan 03, 2020 Roll Left & Right (QC): 5 Sit to Lying (QC): 5 Lying-Sitting on Side/Bed(QC): 5 Sit to Stand (QC): 4 Chair/Wpi-op-Jvtxm Xfer(QC): 4 Toilet Transfer (QC): 4 Car Transfer (QC): 3 Does the Patient Walk: No and Walking Goal IS indicated Walk 10 feet (QC): 4 Walk 50ft with 2 Turns (QC): 4 Walk 150 ft (QC): 4 1 Step (curb) (QC): 4 4 Steps (QC): 88 12 Steps (QC): 88 Picking up an Object (QC): 88 Does the Pt use WC or Scooter?: No Wheel 50 feet with 2 turns (QC: 9 Type: N/A Wheel 150 feet: 9 Type: N/A PT Plan Treatment/Plan Treatment Plan: Continue Plan of Care Treatment Plan: Bed Mobility, Education, Functional Activity W[place]o, Functional Strength, Group Therapy, Gait, Safety, Therapeutic Exercise, Transfers Treatment Duration: Jan 03, 2020 Frequency: 5 times per week Estimated Hrs Per Day: .25 hour per day Patient and/or Family Agrees t: Yes Time/GCodes Time In: 915 Time Out: 928 Total Billed Treatment Time: 13 Total Billed Treatment 1 visit GT 13 min ANSLEY ARCE PT Dec 26, 2019 10:01
[2019-12-26] MEDS: DRONABINOL 2.5 MG (MARINOL) CAP PO SCH ×2 (11:10→17:25)
[2019-12-26] MEDS: ENOXAPARIN 30 MG/0.3 ML (LOVENOX) SYR SC SCH (11:10)
--- NOTE | 2019-12-26 13:59 | NUR ---
This RN took call from Dr. Carpenter for order for COVID swab due to [facility] accepting patient and admission anticipated tomorrow. This RN entered the order and performed the SWAB. Filled out KDHE form and sent to Lab. Called to confirm receipt.
--- NOTE | 2019-12-26 14:43 | NUR ---
CM/SS: Pt has been ACCEPTED TO [facility]. They requesting a COVID test negative reading within 48 hours of admission, as well as the Level I CARE Assessment completed. This worker will follow up.
--- NOTE | 2019-12-26 14:43 | Occ Therapy Progress Note ---
Therapy Progress Note OT attempted treatment this date. Pt. sitting up in chair. Sitter present. Pt. is alert, but does not verbalize. OT attempts to engage pt. He does make eye contact, but does not initiate any movement or participate in any way. OT encourages UE exercise/movement. Pt. looks at OT, but will not perform the movement. OT asks pt. if he would like to get back into bed. Pt. does not indicate either way, and continues to sit in chair. Sitter states that pt. has been up approximately 35 minutes. OT and sitter attempt to engage pt. in conversation about tv show that is currently on. Pt. smiles some, but does not participate in conversation. OT asks pt. if he would like a warm blanket, as he does not have one on his legs. He does not answer OT. Sitter states that she had put one on him, but that he has taken it off. Pt. seems comfortable, in no distress, with sitter present. Does not participate in treatment at this time. 1, visit [id number] XOCHILT SAMSON OT Dec 26, 2019 14:43
--- NOTE | 2019-12-26 14:47 | NUR ---
CM/SS: Telephone Call to Colette, Spouse [phone], she is informed that pt has been accepted to [facility]. She is out to eat with friends and is unsure when she will be at the hospital today. This worker will follow up, as she will need to sign the Level I CARE assessment so it can be forwarded to the facility.
[2019-12-26 15:10] VITALS: BP 152/84
--- NOTE | 2019-12-26 17:17 | NUR ---
CM/SS: Level I CARE Assessment completed - Spouse refused to sign the document without having a copy for prison warden to review. Copy provided to her for prison warden to review. Facility contacted - ([facility]) she is ok for family to have prison warden review. She has requested information to meet pt's needs and is aware that they will need to have it completed, unless this worker can get a signature from spouse in the morning. They will plan to picker tender pt at 1:00pm. Spouse is frustrated that pt is scheduled to leave on tomorrow. She is not sure she wants that to happen. She is requesting a copy of the packet sent to the facilities that have denied pt. She is advised that she needs to contact medical records and obtain information from there. She is given the medical records release from and is encouraged to complete to obtain records. Spouse also reports she is not sure she will not appeal the discharge - she needs to think about it. This worker talks with her as to locating a safe place for pt and that the place is a temporary stop for pt to get stronger and be able to get to their home in [place], [place]. [facility] Upon return to the room with the copy of the Level I CARE assessment, spouse seems ok with pt going to the facility. She is also reminded that the facility ([facility]) will be calling her to give her some information. She reports she will take her call. She is reminded that they will picker tender pt at 1:00pm. She is able to have some small talk about campers and camping with this worker. She seems ok and reports she brought food for staff that have taken care of pt and that this worker should get some. She is reminded again that we want what is best for pt. She apologizes to this worker for the way she has acted. She is reminded that if she has questions to write them down and this worker will see her in the morning. This worker will follow up.
[2019-12-26] MEDS: QUEtiapine 25 MG (SEROquel) TAB IMMEDIATE RELEASE PO SCH (17:25)
[2019-12-26] MEDS: OLANZapine 5 MG ODT (ZyPREXA ZYDIS) PO SCH (21:16)
[2019-12-26 23:13] VITALS: BP 116/77
[2019-12-27 05:30] VITALS: BP 127/81
[2019-12-27] MEDS: HYDROcodone/APAP 5 MG/325 MG (LORTAB) TAB PO SCH ×3 (06:45→20:46)
[2019-12-27] MEDS: CYANOCOBALAMIN 1,000 MCG (VITAMIN B-12) TABLET PO SCH (06:45)
[2019-12-27 08:00] VITALS: BP 123/88
[2019-12-27] MEDS: FERROUS SULF 325 MG (IRON) TAB PO SCH (09:42)
[2019-12-27] MEDS: KCL 10 MEQ TAB (MICRO K) PO SCH ×2 (09:42→17:42)
[2019-12-27] MEDS: MEGESTROL 40 MG (MEGACE) TAB PO SCH ×2 (09:42→20:45)
[2019-12-27] MEDS: LACTOBACILLUS ACIDOPHILUS (PROBIOTIC) CAPSULE PO SCH ×3 (09:42→17:38)
[2019-12-27] MEDS: LOSARTAN 25 MG (COZAAR) TAB PO SCH (09:42)
[2019-12-27] MEDS: FOLIC ACID 1 MG TAB PO SCH (09:42)
[2019-12-27] MEDS: PANTOPRAZOLE 20 MG TABLET (PROTONIX) PO SCH (09:43)
[2019-12-27] MEDS: FAMOTIDINE 20 MG (PEPCID) TABLET PO SCH (09:43)
[2019-12-27] MEDS: ADVAIR HFA 115/21 MCG INHALER 8 GM IH SCH ×2 (10:30→19:19)
--- NOTE | 2019-12-27 11:21 | Physical Therapy Daily Note ---
PT Daily Note-Current Subjective Patient is in bed with OT present to address ADL's, dressing and donning shoes. Spouse present. Mental Status Patient Orientation: Confused Transfers SCALE: Activities may be completed with or without assistive devices. 4-Ugpytkqgby-rvtbwfb completes the activity by him/herself with no assistance from a helper. 5-Set-up or Clean-up Assistance-helper sets up or cleans up; patient completes activity. [place] assists only prior to or following the activity. 4-Supervision or Touching Assistance-helper provides verbal cues and/or touching/steadying and/or contact guard assistance as patient completes activity. Assistance may be provided throughout the activity or intermittently. 3-Partial/Moderate Assistance-helper does LESS THAN HALF the effort. [place] lifts, holds or supports trunk or limbs, but provides less than half the effort. 2-Substantial/Maximal Assistance-helper does MORE THAN HALF the effort. [place] lifts or holds trunk or limbs and provides more than half the effort. 1-Ftyenldvj-okeqpl does ALL the effort. Patient does none of the effort to complete the activity. Or, the assistance of 2 or more helpers is required for the patient to complete the activity. If activity was not attempted, code reason: 7-Patient Refused. 9-Not Applicable-not attempted and the patient did not perform the activity before the current illness, exacerbation or injury. 10-Not Attempted due to Environmental Limitations-(lack of equipment, weather restraints, etc.). 88-Not Attempted due to Medical Conditions or Safety Concerns. Roll Left & Right (QC): 4 Sit to Lying (QC): 5 Lying to Sitting/Side of Bed(Q: 3 Sit to Stand (QC): 3 Weight Bearing Right Lower Extremity: Right Full Weight Bearing Left Lower Extremity: Left Full Weight Bearing Gait Training Does the Patient Walk?: Yes Distance: 250' Walk 10 feet (QC): 3 Walk 50 ft with 2 Turns(QC): 3 Walk 150 ft (QC): 3 Gait Assistive Device: FWW NBOS with scissor gait sequence with PT advancing FWW and OT holding up shorts due to patient's weight loss. Treatments PT/OT cotreat with OT address dressing, donning shoes and ADL's while PT address gait training and gross motor skills. Assessment Patient returned to bed with 4 rails up and spouse present. Patient tolerated treatment well. PT Short Term Goals Short Term Goals Time Frame: Dec 16, 2019 Roll Left & Right: 6 Sit to lyin Lying to sitting on side of be: 5 Sit to stand: 5 Chair/lhh-eu-edzvv transfer: 5 PT Longterm Goals Movie Shot Cameraman Goals PT Movie Shot Cameraman Goals Time Frame: Jan 03, 2020 Roll Left & Right (QC): 5 Sit to Lying (QC): 5 Lying-Sitting on Side/Bed(QC): 5 Sit to Stand (QC): 4 Chair/Dhq-aw-Vgxnl Xfer(QC): 4 Toilet Transfer (QC): 4 Car Transfer (QC): 3 Does the Patient Walk: No and Walking Goal IS indicated Walk 10 feet (QC): 4 Walk 50ft with 2 Turns (QC): 4 Walk 150 ft (QC): 4 1 Step (curb) (QC): 4 4 Steps (QC): 88 12 Steps (QC): 88 Picking up an Object (QC): 88 Does the Pt use WC or Scooter?: No Wheel 50 feet with 2 turns (QC: 9 Type: N/A Wheel 150 feet: 9 Type: N/A PT Plan Treatment/Plan Treatment Plan: Continue Plan of Care Treatment Plan: Bed Mobility, Education, Functional Activity Wicho, Functional Strength, Group Therapy, Gait, Safety, Therapeutic Exercise, Transfers Treatment Duration: Jan 03, 2020 Frequency: 5 times per week Estimated Hrs Per Day: .25 hour per day Patient and/or Family Agrees t: Yes Time/GCodes Time In: 1052 Time Out: 1107 Total Billed Treatment Time: 15 Total Billed Treatment 1 visit GT 15 min ANSLEY ARCE PT Dec 27, 2019 11:21
--- NOTE | 2019-12-27 11:24 | Occupational Ther Daily Note ---
OT Current Status-Daily Note Subjective Pt seen in bed, agrees to tx. Pt's present, states d/c to [place] this date. Pt does not state pain. ADL-Treatment Therapy Code Descriptions/Definitions Functional [place] Measure: 0=Not Assessed/NA 4=Minimal Assistance 1=Total Assistance 5=Supervision or Setup 2=Maximal Assistance 6=Modified [place] 3=Moderate Assistance 7=Complete IndependenceSCALE: Activities may be completed with or without assistive devices. 9-Xoxqlmswmo-ioqojlr completes the activity by him/herself with no assistance from a helper. 5-Set-up or Clean-up Assistance-helper sets up or cleans up; patient completes activity. [place] assists only prior to or following the activity. 4-Supervision or Touching Assistance-helper provides verbal cues and/or touching/steadying and/or contact guard assistance as patient completes activity. Assistance may be provided throughout the activity or intermittently. 3-Partial/Moderate Assistance-helper does LESS THAN HALF the effort. [place] lifts, holds or supports trunk or limbs, but provides less than half the effort. 2-Substantial/Maximal Assistance-helper does MORE THAN HALF the effort. [place] lifts or holds trunk or limbs and provides more than half the effort. 6-Xmvhoscfo-pplqfj does ALL the effort. Patient does none of the effort to complete the activity. Or, the assistance of 2 or more helpers is required for the patient to complete the activity. If activity was not attempted, code reason: 7-Patient Refused. 9-Not Applicable-not attempted and the patient did not perform the activity before the current illness, exacerbation or injury. 10-Not Attempted due to Environmental Limitations-(lack of equipment, weather restraints, etc.). 88-Not Attempted due to Medical Conditions or Safety Concerns. On/Off Footwear: 3 (mod A donning, min A doffing shoes.) Toileting Hygiene (QC): 7 Toilet Transfer (QC): 7 Other Treatment Pt seen in bed. Pt agrees to OT tx. Pt supine to sit with mod A. Pt sits EOB, dons shoes with crossing RLE over L knee with min A and mod A with LLE shoe. Pt sit to stand with CGA from raised bed with cues for hand positioning. Pt walks through ortega with OT/ PT assist with scissored gait and kyphotic posture (see PT notes for specifics). Pt takes hands from walker 2x within hallway, decreased safety awareness with cues for safety. Pt denies bathroom needs, reaches EOB and doffs shoes with max VCs and min physical assist. Pt returns to bed with min A, all needs met, call light in reach, all rails up. Education OT Patient Education: Correct positioning, Exercise program, Modified ADL techniques, Safety issues, Transfer techniques Teaching Recipient: Patient Teaching Methods: Demonstration, Discussion Response to Teaching: Unable to Return Demonstration, Return Demonstration, Reinforcement Needed OT Short Term Goals Short Term Goals Time Frame: Dec 16, 2019 Eatin Oral hygiene: 3 Toileting hygiene: 2 OT Fpc Goals Fpc Goals Time Frame: Dec 23, 2019 Eating (QC): 4 Oral Hygiene (QC): 4 Toileting Hygiene (QC): 3 Additional Goals: 1-Demonstrate ADL Tasks, 2-Verbalize Understanding, 3- ImproveStrength/Wicho 1=Demonstrate adherence to instructed precautions during ADL tasks. 2=Patient will verbalize/demonstrate understanding of assistive devices/modifications for ADL. 3=Patient will improve strength/tolerance for activity to enable patient to perform ADL's. OT Education/Plan Problem List/Assessment Assessment: Decreased Activ Tolerance, Decreased Safety Aware, Decreased UE Strength, Dependent Transfers, Impaired Bed Mobility, Impaired Cognition, Impaired Funct Balance, Impaired I ADL's, Impaired Self-Care Skills Discharge Recommendations Plan/Recommendations: Continue POC Therapy Discharge Recommendati: 24 Hour Supervision Treatment Plan/Plan of Care Treatment,Training & Education: Yes Patient would benefit from OT for education, treatment and training to promote independence in ADL's, mobility, safety and/or upper extremity function for ADL's. Plan of Care: ADL Retraining, Functional Mobility, UE Funct Exercise/Act Treatment Duration: Dec 23, 2019 Frequency: 5 times per week Estimated Hrs Per Day: .25 hour per day Agreement: Yes Rehab Potential: Guarded Time/GCodes Start Time: 10:50 Stop Time: 11:07 Total Time Billed (hr/min): 17 Billed Treatment Time 1, FA (17) MARIA GUADALUPE FARRELL OTR Dec 27, 2019 11:24
[2019-12-27] MEDS: ACETAMINOPHEN 325 MG TABLET PO PRN (12:16)
[2019-12-27] MEDS: ENOXAPARIN 30 MG/0.3 ML (LOVENOX) SYR SC SCH (12:16)
[2019-12-27] MEDS: DRONABINOL 2.5 MG (MARINOL) CAP PO SCH ×2 (12:16→15:25)
--- NOTE | 2019-12-27 15:20 | NUR ---
CM/SS: [facility] has DENIED pt for placement, as pt has been given antipsychotic medications, and requires a one on one. Staff from [facility] did come to assess pt. They are unable to meet pt's needs at this time.
--- NOTE | 2019-12-27 15:22 | NUR ---
CM/SS: Visited with spouse as to pt being denied for [facility]. She would like to see pt go to a [facility] facility. Spouse has left for the day, she is called and she is informed that we will continue to look for placement in the area as well as outside of the area that can meet pt's needs. This worker will follow up with her on Monday.
--- NOTE | 2019-12-27 15:23 | NUR ---
DISCHARGE PLANNING: Called and left a message to talk with Dyana at [facility] about their swing bed program. She has not returned my call today. Referral sent [facility] in [place], [place]. Spoke with their New Car Make Ready Mechanic, Hermes and she told me what she would like faxed. In visiting with her we did discuss the behaviors the patient has been having here at the hospital and also the continued intermittent need of IM Haldol and IM Geodon. He continues to intermittently spit medications out and refuse to take oral medications. Hermes voiced that the patient does sound as though he needs medications adjusted with a goal of oral medication(s) that will help to control his mood in a more consistent manor. F/U phone call and confirmed that [facility] had received the fax referral. Await their determination.
--- NOTE | 2019-12-27 15:23 | NUR ---
CM/SS assisting Maximino for discharge planning. CM/SS contacted [facility] to check on bed status. There beds are full and have a wait list. ELVA/TAWANDA Stanton called back to get patient on wait list. CM/SS contacted [facility]. They state they will look over referral and let this sw know if they can accept. ELVA/TAWANDA contacted [facility] in [place]. ELVA/SS spoke with Namita. She reports that she will discuss case with Oenologist and get back with this sw.
[2019-12-27] MEDS: HYDROcodone/APAP 10 MG/325 MG (LORTAB) TAB PO PRN (15:25)
--- NOTE | 2019-12-27 15:26 | NUR ---
CM/SS: Referral to [facility] - They have DENIED pt due to his wound not being all the way healed. He is about to be reconsidered for placement when wound is healed.
--- NOTE | 2019-12-27 15:28 | NUR ---
CM/SS: Referral to [facility] - [place], [place] - [place] - [phone] fax [phone], information given. They will have an opening on the beginning of next week. [facility] reports they are a 10 to 14 day unit. This worker will follow up.
--- NOTE | 2019-12-27 15:32 | NUR ---
CM/SS: Pt is requested to be on wait list of [facility] - this worker will follow up.
[2019-12-27 16:05] VITALS: BP 129/78
--- NOTE | 2019-12-27 17:04 | NUR ---
Visited with Dr. Carpenter about what is needed for placement for Mr. Oliveros. She gave orders for him to be evaluated by Geriatric Psychiatry, to have his medications adjusted by someone that specializes in that field. Mr Oliveros continues to have behaviors each evening according to floor staff of hitting, throwing things at staff, and refusing to take oral medications by spitting them out onto staff. F/U phone call with patient's Colette with 's intended POC for the patient and need for referral sent and ultimately discharge to an Inpatient Geriatric Psychiatric Facility. I explained to her what the discussed with me; IM medications that Renato has been receiving here and continued behaviors that are aggressive with staff at times. Encouraged her that at this type of facility the dr that specializes in this field would be able to help Renato get to a place where he is not violent and be able to maintain his "day like" behavior (pleasantly confused and easily directed). Colette acknowledged that Renato is having behaviors and makes this statement; "I was talking to my Rubber Goods Inspector and the people that I've talked with tell me that a Medical Doctor should absolutely not be ordering IM Geodon for my . That medication should only be prescribed by a Psychiatrist that specializes in that and no one at [facility] has offered us a Psychiatrist through [facility]." I stated; "It is appropriate for a Medical Doctor to order IM Geodon but you are correct in your statement of needing a doctor that specializes in geriatric psychiatry when it is determined by his medical doctor as an appropriate plan of care. 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 Also encouraged her that they would adjust his medications so that he would be more likely able to be accepted by a senior living home to rehabilitate and reach his ultimate goal of returning home with her in their new home in [place]. She reports that she will have to talk with her Rubber Goods Inspector and get back with us on Monday. I then talked with her about her not allowing us to send referrals to facilities and this being a refusal of the patient to be discharged. She reported "No, this is not a refusal because you don't have anything in black and white." Informed her that by not allowing us to move forward with patient discharge to next appropriate level of care that this is a refusal for discharge. I talked with her about this being a process of sending [facility] medical record to an independent clinical reviewer called the O and that they would ultimately determine if Renato is appropriate to continue at the hospital inpatient level of care. The independent reviewer would give us instructions on what our next steps should be for Renato and that I would inform her once a determination is made. She reports that she is calling her business process manager and who should she have him talk with. I gave her the fourth floor phone number of [phone] and told her to have him ask for Tammy and that they would transfer the call to me. She reports that she will be doing that. I encouraged her that I would get back a hold of her once a determination is made. I updated the 4th floor health unit supervisor and the greenhouse superintendent of anticipated phone call that needed to be patched to me.
--- NOTE | 2019-12-27 17:20 | NUR ---
1720:THIS RN WAS CALLED INTO THE ROOM BY THE [facility]. THIS PCCT STATED THAT PT WAS TRYING TO GET UP AND LEAVE ROOM. THIS PCCT ATTEMPTED TO REORIENT/DISTRACT PT AT THIS TIME. PCCT STATED THAT PT THOUGHT HE SAW SOMEONE IN THE [place] AND PT WOULD ATTEMPT TO GET UP AND LEAVE, PCCT WOULD TELL HIM TO SIT BACK DOWN. PCCT STATED THAT PT YELLED, "GET YOUR HAND FUCKING OFF OF ME", PT THEN ATTEMPTED TO SWING AND HIT PCCT BUT WAS UNSUCCESSFUL, WHEN PCCT TRIED TO GET PT TO SIT BACK DOWN ON THE BED. THIS RN WITNESSED UPON ENTERING THE ROOM, THE PT AGITATED AND ATTEMPTING TO STAND AND GET OUT OF BED. PT WAS REQUESTING TO SEE HIS AT THIS TIME, THIS RN ATTEMPTED TO REORIENT PT AND STATED THAT HIS " WOULD BE BACK TOMORROW TO SEE HIM". PT GOT MORE AGITATED, THIS RN WITNESSED THE PT THROW HIS GLASSES ACROSS THE ROOM AT THIS TIME. THIS RN LEFT TO RETRIEVE HALDOL AT THIS TIME. 1735: THIS RN RETURNED WITH PT'S EVENING MEDICATIONS. PT DECIDED TO LAY AT THE END OF BED WITH LEGS HANGING OVER THE END OF THE BED, BUT APPEARED TO BE CALM AT THIS TIME. THIS RN WAS ABLE TO GET THE PT CALM ENOUGH FOR HIM TAKE HIS SEROQUEL AND LACTOBACILLUS IN PUDDING FOR THIS RN. THIS RN THEN ADMINISTERED IM SHOT OF HALDOL TO PT. THIS RN EXPLAINED THAT HE WAS GOING TO RECEIVE MORE MEDICATION THROUGH A SHOT, PT REMAINED CALM DURING ADMINISTRATION, THIS DID NOT REQUIRE ANY EXTRA HELP FROM PCCT TO HOLD PT. 1745: [facility] ASK[facility] PT IF HE WAS HUNGRY AND READY FOR DINNER. PT RESPONDED WITH SOME AGITATION BUT EVENTUALLY SAT UP TO EAT DINNER. THIS RN WILL CONTINUE TO MONITOR PT. AT THIS TIME PT IS STABLE.
[2019-12-27] MEDS: HALOPERIDOL 5 MG/ML (HALDOL) VIAL IM PRN (17:34)
[2019-12-27] MEDS: QUEtiapine 25 MG (SEROquel) TAB IMMEDIATE RELEASE PO SCH (17:38)
--- NOTE | 2019-12-27 18:58 | NUR ---
F/U with OANH French and hvac sales representative reported that they will only review documentation if family requests to appeal the discharge. Chucks , Colette is refusing to appeal discharge but also refuses to let us discharge the patient. Reviewed our policy and procedures for this type of situation and [facility] 12 notice was filled out and given to the nurse to give to the patient's DPOA, his Colette. If she refuses to sign this document please write that on the form, date and time when this occurs and place in the medical record.
[2019-12-27] MEDS: OLANZapine 5 MG ODT (ZyPREXA ZYDIS) PO SCH (20:46)
[2019-12-27] MEDS: LOPERAMIDE 2 MG (IMODIUM) TABLET PO PRN (21:18)
[2019-12-28 00:15] VITALS: BP 134/80
[2019-12-28] MEDS: CYANOCOBALAMIN 1,000 MCG (VITAMIN B-12) TABLET PO SCH (05:59)
[2019-12-28] MEDS: HYDROcodone/APAP 5 MG/325 MG (LORTAB) TAB PO SCH ×3 (05:59→21:00)
[2019-12-28] MEDS: ADVAIR HFA 115/21 MCG INHALER 8 GM IH SCH ×2 (06:42→19:09)
[2019-12-28 08:00] VITALS: BP 138/92
--- NOTE | 2019-12-28 08:46 | Progress Note ---
Subjective Subjective Date Seen by Provider: Dec 28, 2019 Time Seen by Provider: 08:30 PT IS A 74 Y/O MALE WHO WAS ADMITTED TO INPATIENT ADMISSION AT THE BEGINNING OF AFTER HAVING BEEN ON INPATIENT REHAB AND THEN FOUND TO HAVE A UTI FOR WHICH HE WAS TRANSFERRED UP TO 4TH FLOOR. HE HAS DEMENTIA AND HAS BEEN PROGRESSIVELY COGNITIVELY DECLINING AND HAS NOT BEEN ABLE TO PARTICIPATE IN QUESTIONING EFFECTIVELY. STAFF REPORTS THAT HE IS DOING WELL THIS MORNING, BUT WAS COMBATIVE LAST NIGHT AND HAD TO BE GIVEN A DOSE OF IM MEDICATION - HALDOL - TO CALM HIM DOWN. THIS MORNING HE IS WITHOUT COMPLAINT. THE PATIENT WAS SUPPOSED TO BE DISCHARGED TO [facility] BUT THEY REFUSED ADMISSION TO THEIR FACILITY DUE TO HIS NEED FOR IM MEDICATIONS FOR HIS BEHAVIORS. SOCIAL WORK/NURSING NOTES FROM YESTERDAY REVEAL EXTENSIVE COMMUNICATION BACK AND FORTH BETWEEN THE NURSING STAFF AND HIS SPOUSE. THE PLAN HAS BEEN STYMIED BY HER REFUSAL TO ALLOW REFERRALS TO GO THROUGH AND CONSTANT REFERRAL BACK TO HER BOTANY LABORATORY ASSISTANT AND OTHER INDIVIDUALS (PER HER REPORT) GIVING HER ADVICE ON HER SPOUSE AND HIS MEDICAL CONDITION. Review of Systems ROS Unable to Obtain: limited by confusion General: Fatigue, Malaise Neurological: Confusion OPEN ABDOMINAL WOUND, CONFUSION AND COMBATIVENESS All Other Systems Reviewed All Other Systems Reviewed: No (ROS NOT REVIEWED DO TO PT AMS ) Objective Exam Vital Signs Vital Signs - First Documented 12/22/19 12/22/19 07:29 07:30 Temp 36.3 Pulse 85 Resp 16 B/P (MAP) 150/82 (104) Pulse Ox 98 O2 Delivery Room Air Capillary Refill : Less Than 3 SecondsLess Than 3 Seconds General Appearance: No Apparent Distress, Cachetic (EXTREMELY THIN PATIENT BONY PROMINENCES IN EXTREME ON SHOULDERS, ARMS, ELBOWS, HIPS, SACRUM, ETC) Eyes: Bilateral Eye Normal Inspection, Bilateral Eye PERRL, Bilateral Eye EOMI Respiratory: Chest Non Tender, Lungs Clear, Normal Breath Sounds, Other (POOR EFFORT) Cardiovascular: Regular Rate, Rhythm, Normal Peripheral Pulses Gastrointestinal: Other (GRANULATION TISSUE IN WOUND BED, MINIMAL DISCHARGE NOTED, YELLOW/GREEN DISCHARGE ON GAUZE) Rectal: Deferred Extremity: Normal Capillary Refill Neurologic/Psychiatric: Alert, Other Skin: Warm/Dry, Other (HEALING ABDOMINAL WOUND - HEALING WITH GOOD GRANULATION TISSUE IN CENTER OF WOUND IN MID ABDOMEN, PRESSURE ULCER ON SACRUM WITH PINK GRANULATION TISSUE PRESENT) Results Lab Microbiology 12/09/19 Urine Culture - Final, Complete Klebsiella pneumoniae Assessment/Plan Assessment/Plan Admission Dx URINARY TRACT INFECTION CRITICAL ILLNESS MYOPATHY DELIRIUM ANOREXIA CACHEXIA SMALL BOWEL RESECTION DEMENTIA DIARRHEA FECAL INCONTINENCE URINARY INCONTINENCE Assessment and Plan URINARY TRACT INFECTION CRITICAL ILLNESS MYOPATHY DELIRIUM ANOREXIA CACHEXIA SMALL BOWEL RESECTION DEMENTIA DIARRHEA FECAL INCONTINENCE URINARY INCONTINENCE URINARY TRACT INFECTION - KLEBSIELLA - IV ANTIBIOTICS - MONITOR URINE CULTURE - IV ANTIBIOTIC NARROWED AND ANTIBIOTICS FINISHED ON 12/15/2019 CRITICAL ILLNESS MYOPATHY - SUPPORTIVE CARE, HE CANNOT PARTICIPATE WELL WITH THERAPY DUE TO HIS DEMENTIA AND DELIRIUM, SUPPORTIVE CARE AND WE WILL NEED TO LOOK FOR A SNF WHICH CAN TAKE HIM WITH HIS MULTIPLE NEEDS. GERONIMO TOLD THE VALUE STREAM LEADER THAT WE DID NOT AGREE ON HIS CARE BECAUSE SHE WAS AN OPTIMIST AND THIS UNCLAIMED PROPERTY OFFICER WAS NOT, AND SHE WOULD NOT LET HIM GO TO A SNF BECAUSE SHE WAS NOT WILLING TO GIVE UP HER PRIVILEGE OF SEEING HIM EVERY DAY. GERONIMO HAS APPARENTLY HAD A DISCUSSION WITH "MY BOTANY LABORATORY ASSISTANT AND OTHERS" WHO TOLD HER THAT A MEDICAL DOCTOR SHOULD NOT BE PRESCRIBING IM GEODON OR HALDOL AND THAT ONLY A PSYCHIATRIST SHOULD PRESCRIBE THAT MEDICATION. SHE ALSO TOLD STAFF THAT THEY HAVE NOT BEEN OFFERED A PSYCHIATRIST - AND SHE WAS INFORMED THAT WE DO NOT HAVE PSYCHIATRY AT THIS HOSPITAL. DELIRIUM, ANOREXIA, CACHEXIA - SLIGHTLY IMPROVED APPETITE - PT ON MEGACE AND MARINOL SMALL BOWEL RESECTION WITH OPEN ABDOMINAL WOUND - WOUND CARE FOR ABDOMINAL WOUND, CONTINUES TO HEAL WITH WET TO DRY DRESSINGS. DIARRHEA WITH FECAL INCONTINENCE - IMPROVED WITH PROBIOTICS. URINARY INCONTINENCE - SUPPORTIVE CARE ONLY AT THIS TIME. ANEMIA - DUE TO EXTENSIVE ILLNESS, BLOOD LOSS AND POOR INTAKE, CHECKED IRON PANEL - DOES NOT REQUIRE IV IRON AT THIS TIME, TRANSFUSE IF NEEDED IF HGB DROPS BELOW 7. PLACEMENT IS A HUGE MOINKA WITH THIS PATIENT DUE TO HIS SPOUSE REFUSING TO CONSIDER SNF PLACEMENT. SHE HAS BEEN TOLD MULTIPLE TIMES OF PLANS FOR DISCHARGE AND SHE HAS BEEN REFUSING TO GIVE NAMES OF PLACES SHE WOULD CONSIDER ACCEPTABLE PLACEMENT OPTIONS- HOWEVER SHE ADMITTED TO "DRAGGING MY FEET" - SEE EXTENSIVE VALUE STREAM LEADER NOTES. SHE IS AWARE OF THIS PLAN MYSELF AND THE VALUE STREAM LEADER HAVE DISCUSSED WITH HER THE PLAN. I WILL MOVE FORWARD WITH THE DISCHARGE PLAN DESPITE HER DESIRE TO KEEP HIM IN THE HOSPITAL SO THAT SHE CAN VISIT HIM DAILY. Admission Dx URINARY TRACT INFECTION CRITICAL ILLNESS MYOPATHY DELIRIUM ANOREXIA CACHEXIA SMALL BOWEL RESECTION DEMENTIA DIARRHEA FECAL INCONTINENCE URINARY INCONTINENCE Clinical Quality Measures Admission Status Admission Dx URINARY TRACT INFECTION CRITICAL ILLNESS MYOPATHY DELIRIUM ANOREXIA CACHEXIA SMALL BOWEL RESECTION DEMENTIA DIARRHEA FECAL INCONTINENCE URINARY INCONTINENCE DVT/VTE Risk/Contraindication: Risk Factor Score Per Nursin RFS Level Per Nursing on Admit: 4+=Very High TITA LAINEZ MD Dec 28, 2019 08:46
[2019-12-28] MEDS: MEGESTROL 40 MG (MEGACE) TAB PO SCH ×2 (09:13→20:53)
[2019-12-28] MEDS: FERROUS SULF 325 MG (IRON) TAB PO SCH (09:13)
[2019-12-28] MEDS: FOLIC ACID 1 MG TAB PO SCH (09:13)
[2019-12-28] MEDS: LOPERAMIDE 2 MG (IMODIUM) TABLET PO PRN (09:13)
[2019-12-28] MEDS: PANTOPRAZOLE 20 MG TABLET (PROTONIX) PO SCH (09:13)
[2019-12-28] MEDS: FAMOTIDINE 20 MG (PEPCID) TABLET PO SCH (09:13)
[2019-12-28] MEDS: LACTOBACILLUS ACIDOPHILUS (PROBIOTIC) CAPSULE PO SCH ×3 (09:13→17:04)
[2019-12-28] MEDS: LOSARTAN 25 MG (COZAAR) TAB PO SCH (09:14)
[2019-12-28] MEDS: KCL 10 MEQ TAB (MICRO K) PO SCH ×2 (09:19→17:04)
--- NOTE | 2019-12-28 10:20 | Progress Note ---
Subjective Subjective Time Seen by Provider: 08:00 PT ALERT, EATING AND COMMUNICATING APON VISIT TODAY. PT MORE VOCAL THAN LAST VISIT (12/24). NURSE SAID HE ATE 25% OF HIS BREAKFEST THIS MORNING. Review of Systems ROS Unable to Obtain: limited by confusion General: Fatigue, Malaise Neurological: Confusion All Other Systems Reviewed All Other Systems Reviewed: No (ROS NOT REVIEWED DO TO PT AMS ) Objective Exam Vital Signs Vital Signs - First Documented 12/22/19 12/22/19 07:29 07:30 Temp 36.3 Pulse 85 Resp 16 B/P (MAP) 150/82 (104) Pulse Ox 98 O2 Delivery Room Air Capillary Refill : Less Than 3 SecondsLess Than 3 Seconds General Appearance: No Apparent Distress, Cachetic Eyes: Bilateral Eye Normal Inspection, Bilateral Eye PERRL, Bilateral Eye EOMI Respiratory: Chest Non Tender, Lungs Clear, Normal Breath Sounds, Other (POOR EFFORT) Cardiovascular: Regular Rate, Rhythm, Normal Peripheral Pulses Gastrointestinal: Other (GRANULATION TISSUE IN WOUND BED, MINIMAL DISCHARGE NOTED, YELLOW/GREEN DISCHARGE ON GAUZE) Rectal: Deferred Extremity: Normal Capillary Refill Neurologic/Psychiatric: Alert Skin: Warm/Dry Results Lab Microbiology 12/09/19 Urine Culture - Final, Complete Klebsiella pneumoniae Assessment/Plan Assessment/Plan Admission Dx CRITICAL ILLNESS MYOPATHY AND DELIRIUM Reason for Inpatient Admission: CRITICAL ILLNESS MYOPATHY DELIRIUM ANOREXIA CACHEXIA SMALL BOWEL RESECTION DEMENTIA DIARRHEA CRITICAL ILLNESS MYOPATHY - SUPPORTIVE CARE, HE CANNOT PARTICIPATE WELL WITH THERAPY DUE TO HIS DEMENTIA AND DELIRIUM, SUPPORTIVE CARE AND WE WILL NEED TO LOOK FOR A CUSTODIAL WHICH CAN TAKE HIM WITH HIS MULTIPLE NEEDS. DELIRIUM, ANOREXIA, CACHEXIA - SLIGHTLY IMPROVED APPETITE - PT ON MEGACE AND MARINOL. PT EATING ANYWHERE BETWEEN 25% TO 75% OF BREAKFEST ON ANY GIVEN DAY THIS WEEK. SMALL BOWEL RESECTION WITH OPEN ABDOMINAL WOUND - WOUND CARE FOR ABDOMINAL WOUND, CONTINUES TO HEAL WITH WET TO DRY DRESSINGS. DIARRHEA WITH FECAL INCONTINENCE - IMPROVED WITH PROBIOTICS. ANEMIA - DUE TO EXTENSIVE ILLNESS, BLOOD LOSS AND POOR INTAKE, CHECKED IRON PANEL - DOES NOT REQUIRE IV IRON AT THIS TIME, TRANSFUSE IF NEEDED IF HGB DROPS BELOW 7. HGB IS STEADLY IMPROVING, 12/25 LABS SHOWED 10.0 HGB. CHIEF INFORMATICS OFFICER IS SEARCHING FOR GERIATRIC PSYCH CENTER TO DISCHARGE PT TO [facility]. 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 SEE MY SEPARATE NOTE FOR FURTHER DOCUMENTATION CELIA PASCUAL MED STUDENT Dec 28, 2019 10:20 TITA LAINEZ MD Dec 28, 2019 11:11
[2019-12-28] MEDS: HYDROcodone/APAP 10 MG/325 MG (LORTAB) TAB PO PRN (12:00)
[2019-12-28] MEDS: DRONABINOL 2.5 MG (MARINOL) CAP PO SCH ×2 (12:02→17:04)
[2019-12-28] MEDS: ENOXAPARIN 30 MG/0.3 ML (LOVENOX) SYR SC SCH (12:02)
--- NOTE | 2019-12-28 13:54 | NUR ---
PTS , GERONIMO, REFUSED TO SIGN PAPER THAT STATED PT DID MEET INPATIENT QUALIFICATIONS. MYSELF AND BLUEPRINT DEVELOPER, KARLY HERNANDEZ, MICHELLE, WITNESSED GERONIMO'S REFUSAL. GERONIMO ASKED FOR A COPY OF THE PAPER TO GIVE TO HER DENITRATOR AND STATED THAT SHE HAD TOLD STAFF PREVIOUSLY SHE WOULD NOT BE SIGNING THIS. KARLY WENT OVER THE AVERAGE COST PER DAY LISTED ON THE SHEET AND THAT THE DATE STATED, TODAY, 12/28/19, WOULD NOT CHANGE D/T HER REFUSAL TO SIGN. PT ACKNOWLEDGED THIS AND SAID THAT WAS OK. KARLY AND Ave BOTH SIGNED PAPER STATING GERONIMO REFUSED TO SIGN AND MADE A COPY FOR GERONIMO AND THE ORIGINAL WENT INTO PTS CHART. THIS RN STAMPED GERONIMO'S COPY OF PAPER WITH WORDS COPY IN BLUE INK TO MAKE SURE IT IS UNDERSTOOD THAT HER COPY IS IN FACT A COPY. THIS RN GAVE THAT COPY TO GERONIMO. GERONIMO DID NOT RAISE HER VOICE WITH THIS NURSE THREAD TOOL GRINDER SET UP OPERATOR AND KARLY RN. SHE DID TELL US SHE WOULD NOT SIGN ANYTHING WITHOUT HER HAIRSPRING TRUER APPROVAL.
--- NOTE | 2019-12-28 13:59 | NUR ---
PT HAD BEEN IN PAIN BEFORE NOON TODAY. PRN HYDROCODONE/APAP 10/325 ADMIN AND PT IS NOW SITTING UP IN BED AND MORE ALERT. HE IS ATTEMPTING TO USE URINAL TO VOID ON HIS OWN AND TALKING TO AND STAFF. THIS RN HELD IS 1400 HYDROCODONE 5/325.
[2019-12-28 15:49] VITALS: BP 116/78
--- NOTE | 2019-12-28 16:58 | NUR ---
TEOFILO KIMBLE, LET THIS RN KNOW THAT PT IS HAVING FREQUENT URINE VOIDS THAT ARE DARK AND FOUL SMELLING. DR LAINEZ NOTIFIED BY THIS RN AND SHE ORDERED CBC, CMP AND UA ( STRAIGHT CATH IF NEEDED). AND TO CALL HER WHEN UA RESULTS ARE BACK.
[2019-12-28] MEDS: QUEtiapine 25 MG (SEROquel) TAB IMMEDIATE RELEASE PO SCH (17:02)
[2019-12-28 17:32] LABS: WHITE BLOOD COUNT 12.1 10^3/uL (4.3-11.0)
[2019-12-28 17:33] LABS: BASOPHILS % (AUTO) 0 % (0-10); EOSINOPHILS # (AUTO) 0.2 10^3/uL (0.0-0.3); EOSINOPHILS % (AUTO) 1 % (0-10); HEMATOCRIT 29 % (40-54); HEMOGLOBIN 8.7 G/DL (13.3-17.7); LYMPHOCYTES # (AUTO) 3.3 X 10^3 (1.0-4.0); LYMPHOCYTES % (AUTO) 28 % (12-44); MEAN CORPUSCULAR HEMOGLOBIN 26 PG (25-34); MEAN CORPUSCULAR HGB CONC 30 G/DL (32-36); MEAN CORPUSCULAR VOLUME 88 FL (80-99); MEAN PLATELET VOLUME 9.4 FL (7.4-10.4); MONOCYTES # (AUTO) 0.7 X 10^3 (0.0-1.0); MONOCYTES % (AUTO) 6 % (0-12); NEUTROPHILS # (AUTO) 7.8 X 10^3 (1.8-7.8); NEUTROPHILS % (AUTO) 65 % (42-75); PLATELET COUNT 424 10^3/uL (130-400)
[2019-12-28 17:39] LABS: ALANINE AMINOTRANSFERASE 16 U/L (0-55); ALBUMIN 2.6 GM/DL (3.2-4.5); ALKALINE PHOSPHATASE 89 U/L (40-136); BILIRUBIN,TOTAL 0.3 MG/DL (0.1-1.0); BUN/CREATININE RATIO 40; CALCIUM 8.2 MG/DL (8.5-10.1); CARBON DIOXIDE 23 MMOL/L (21-32); CHLORIDE 108 MMOL/L (98-107); CREATININE SERUM 0.57 MG/DL (0.60-1.30); GFR ESTIMATED > 60; GLUCOSE 79 MG/DL (70-105); POTASSIUM 3.8 MMOL/L (3.6-5.0); SODIUM 140 MMOL/L (135-145); TOTAL PROTEIN 7.1 GM/DL (6.4-8.2)
[2019-12-28 19:33] LABS: BILIRUBIN,URINE NEGATIVE (NEGATIVE); CLARITY,URINE CLEAR; COLOR,URINE YELLOW; GLUCOSE, URINE (UA) NEGATIVE (NEGATIVE); KETONES,URINE NEGATIVE (NEGATIVE); LEUKOCYTE ESTERASE ,URINE 2+ (NEGATIVE); NITRITE,URINE NEGATIVE (NEGATIVE); PROTEIN,URINE 1+ (NEGATIVE)
[2019-12-28 19:46] LABS: BACTERIA,URINE TRACE /HPF; WBC,URINE TNTC /HPF
[2019-12-28] MEDS: OLANZapine 5 MG ODT (ZyPREXA ZYDIS) PO SCH (20:53)
[2019-12-28 23:39] VITALS: BP 131/97
[2019-12-29] MEDS: ADVAIR HFA 115/21 MCG INHALER 8 GM IH SCH ×2 (06:03→19:10)
[2019-12-29] MEDS: HYDROcodone/APAP 10 MG/325 MG (LORTAB) TAB PO PRN ×3 (06:22→17:06)
[2019-12-29] MEDS: CYANOCOBALAMIN 1,000 MCG (VITAMIN B-12) TABLET PO SCH (06:22)
[2019-12-29] MEDS: HYDROcodone/APAP 5 MG/325 MG (LORTAB) TAB PO SCH ×3 (06:25→22:00)
[2019-12-29 08:00] VITALS: BP 110/78
[2019-12-29] MEDS: LACTOBACILLUS ACIDOPHILUS (PROBIOTIC) CAPSULE PO SCH ×3 (08:30→17:05)
[2019-12-29] MEDS: FAMOTIDINE 20 MG (PEPCID) TABLET PO SCH (08:30)
[2019-12-29] MEDS: ONDANSETRON 4 MG (ZOFRAN) ORAL DISSOLVE TAB PO PRN (08:30)
[2019-12-29] MEDS: FOLIC ACID 1 MG TAB PO SCH (08:30)
[2019-12-29] MEDS: MEGESTROL 40 MG (MEGACE) TAB PO SCH ×2 (08:31→20:36)
[2019-12-29] MEDS: LOSARTAN 25 MG (COZAAR) TAB PO SCH (08:31)
[2019-12-29] MEDS: KCL 10 MEQ TAB (MICRO K) PO SCH ×2 (08:31→17:05)
[2019-12-29] MEDS: LOPERAMIDE 2 MG (IMODIUM) TABLET PO PRN (08:31)
[2019-12-29] MEDS: FERROUS SULF 325 MG (IRON) TAB PO SCH (08:31)
[2019-12-29] MEDS: PANTOPRAZOLE 20 MG TABLET (PROTONIX) PO SCH (08:34)
--- NOTE | 2019-12-29 09:19 | Progress Note ---
Subjective Subjective Date Seen by Provider: Dec 29, 2019 Time Seen by Provider: 09:00 PT DENIES CONCERNS - STAFF REPORTS THAT LAST NIGHT THEY WERE WORRIED ABOUT HIS URINE DUE TO IT BEING FOUL SMELLING. HE IS IN A GREAT MOOD TODAY, JOVIAL, JOKING WITH MYSELF AND STAFF, EATING CHEETOS Review of Systems ROS Unable to Obtain: limited by confusion General: Fatigue, Malaise, Other (SLIGHTLY IMPROVED APPETITE) Pulmonary: No Dyspnea, No Cough Gastrointestinal: Diarrhea (INTERMITTENT) Genitourinary: Incontinence, Other (PER STAFF FOUL SMELLING URINE LAST NIGHT) Neurological: Confusion OPEN ABDOMINAL WOUND, CONFUSION AND IMPROVED COMBATIVENESS All Other Systems Reviewed All Other Systems Reviewed: No (ROS NOT REVIEWED DO TO PT AMS ) Objective Exam Vital Signs Vital Signs - First Documented 12/23/19 00:00 Temp 36.4 Pulse 87 Resp 18 B/P (MAP) 139/84 (102) Pulse Ox 98 O2 Delivery Room Air Capillary Refill : Less Than 3 SecondsLess Than 3 Seconds General Appearance: No Apparent Distress, Cachetic Eyes: Bilateral Eye Normal Inspection, Bilateral Eye PERRL, Bilateral Eye EOMI Respiratory: Chest Non Tender, Lungs Clear, Normal Breath Sounds, Other (POOR EFFORT) Cardiovascular: Regular Rate, Rhythm, Normal Peripheral Pulses Gastrointestinal: Other (GRANULATION TISSUE IN WOUND BED, MINIMAL DISCHARGE NOTED, YELLOW/GREEN DISCHARGE ON GAUZE) Extremity: Normal Capillary Refill Neurologic/Psychiatric: Alert, Other (ORIENTED TO SELF) Skin: Warm/Dry, Other (HEALING WOUND IN CENTER OF LOWER ABDOMINAL WOUND, GRANULATION TISSUE PINK, WITH SIGNIFICANTLY IMPROED CLOSURE OF WOUND COMPARED TO 12/10/2019 WOUND - AT LEAST 1/2 THE SIZE ) Results Lab Laboratory Tests 12/28/19 17:14: White Blood Count 12.1H, Red Blood Count 3.29L, Hemoglobin 8.7L, Hematocrit 29L, Mean Corpuscular Volume 88, Mean Corpuscular Hemoglobin 26, Mean Corpuscular Hemoglobin Concent 30L, Red Cell Distribution Width 16.9H, Platelet Count 424H, Mean Platelet Volume 9.4, Neutrophils (%) (Auto) 65, Lymphocytes (%) (Auto) 28, Monocytes (%) (Auto) 6, Eosinophils (%) (Auto) 1, Basophils (%) (Auto) 0, Neutrophils # (Auto) 7.8, Lymphocytes # (Auto) 3.3, Monocytes # (Auto) 0.7, Eosinophils # (Auto) 0.2, Basophils # (Auto) 0.0, Immature Granulocyte # (Auto) 0.0, Sodium Level 140, Potassium Level 3.8, Chloride Level 108H, Carbon Dioxide Level 23, Anion Gap 9, Blood Urea Nitrogen 23H, Creatinine 0.57L, Estimat Glomerular Filtration Rate > 60, BUN/Creatinine Ratio 40, Glucose Level 79, Calcium Level 8.2L, Corrected Calcium 9.3, Total Bilirubin 0.3, Aspartate Amino Transf (AST/SGOT) 22, Alanine Aminotransferase (ALT/SGPT) 16, Alkaline Phosphatase 89, Total Protein 7.1, Albumin 2.6L 12/28/19 19:20: Urine Color YELLOW, Urine Clarity CLEAR, Urine pH 7.0, Urine Specific Mcgrann 1.020, Urine Protein 1+H, Urine Glucose (UA) NEGATIVE, Urine Ketones NEGATIVE, Urine Nitrite NEGATIVE, Urine Bilirubin NEGATIVE, Urine Urobilinogen 0.2, Urine Leukocyte Esterase 2+H, Urine RBC (Auto) 2+H, Urine RBC NONE, Urine WBC TNTCH, Urine Squamous Epithelial Cells NONE, Urine Crystals NONE, Urine Bacteria TRACE, Urine Casts NONE, Urine Mucus NEGATIVE, Urine Culture Indicated YES Microbiology 12/28/19 Urine Culture - Preliminary, Resulted Gram Negative Christopher Assessment/Plan Assessment/Plan Admission Dx URINARY TRACT INFECTION CRITICAL ILLNESS MYOPATHY DELIRIUM ANOREXIA CACHEXIA SMALL BOWEL RESECTION DEMENTIA DIARRHEA FECAL INCONTINENCE URINARY INCONTINENCE Assessment and Plan URINARY TRACT INFECTION CRITICAL ILLNESS MYOPATHY DELIRIUM ANOREXIA CACHEXIA SMALL BOWEL RESECTION DEMENTIA DIARRHEA FECAL INCONTINENCE URINARY INCONTINENCE URINARY TRACT INFECTION - RECURRENT - WAS FINISHED WITH IV ANTIBIOTICS ON 12/15/2019, HOWEVER UA OBTAINED ON 12/28/2019 AND I HAVE INITIATED ORAL ANTIBIOTICS BACTRIM DS X 5 DAYS - WAITING ON URINE CULTURE. CRITICAL ILLNESS MYOPATHY - SUPPORTIVE CARE, HE CANNOT PARTICIPATE WELL WITH THERAPY DUE TO HIS DEMENTIA AND DELIRIUM, SUPPORTIVE CARE AND WE WILL NEED TO LOOK FOR A SENIOR LIVING WHICH CAN TAKE HIM WITH HIS MULTIPLE NEEDS. 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 GERONIMO HAS APPARENTLY HAD A DISCUSSION WITH "MY SECURITY AND COMPLIANCE ANALYST AND OTHERS" WHO TOLD HER THAT A MEDICAL DOCTOR SHOULD NOT BE PRESCRIBING IM GEODON OR HALDOL AND THAT ONLY A PSYCHIATRIST SHOULD PRESCRIBE THAT MEDICATION. SHE ALSO TOLD STAFF THAT THEY HAVE NOT BEEN OFFERED A PSYCHIATRIST - AND SHE WAS INFORMED THAT WE DO NOT HAVE PSYCHIATRY AT THIS HOSPITAL. DELIRIUM, ANOREXIA, CACHEXIA - SLIGHTLY IMPROVED APPETITE - PT ON MEGACE AND MARINOL SMALL BOWEL RESECTION WITH OPEN ABDOMINAL WOUND - WOUND CARE FOR ABDOMINAL WOUND, CONTINUES TO HEAL WITH WET TO DRY DRESSINGS. DIARRHEA WITH FECAL INCONTINENCE - IMPROVED WITH PROBIOTICS. URINARY INCONTINENCE - SUPPORTIVE CARE ONLY AT THIS TIME. ANEMIA - DUE TO EXTENSIVE ILLNESS, BLOOD LOSS AND POOR INTAKE, CHECKED IRON PANEL - DOES NOT REQUIRE IV IRON AT THIS TIME, TRANSFUSE IF NEEDED IF HGB DROPS BELOW 7. PLACEMENT IS A HUGE MONIKA WITH THIS PATIENT DUE TO HIS SPOUSE REFUSING TO CONSIDER SENIOR LIVING PLACEMENT. SHE HAS BEEN TOLD MULTIPLE TIMES OF PLANS FOR DISCHARGE AND SHE HAS BEEN REFUSING TO GIVE NAMES OF PLACES SHE WOULD CONSIDER ACCEPTABLE PLACEMENT OPTIONS- HOWEVER SHE ADMITTED TO "DRAGGING MY FEET" - SEE EXTENSIVE FLIGHT FOLLOWER NOTES. SHE IS AWARE OF THIS PLAN MYSELF AND THE FLIGHT FOLLOWER HAVE DISCUSSED WITH HER THE PLAN. I WILL MOVE FORWARD WITH THE DISCHARGE PLAN DESPITE HER DESIRE TO KEEP HIM IN THE HOSPITAL SO THAT SHE CAN VISIT HIM DAILY. I HAVE DISCUSSED WITH GERONIMO THE PLAN ON 12/28/2019 - SHE HAS AGREED TO SEEK PLACEMENT - SHE WOULD LIKE TO LOOK AT [facility] - I HAVE ATTEMPTED TO CALL THE PSYCHIATRIC DEPT, BUT THERE WAS NO ANSWER DESPITE LETTING IT RING FOR AT LEAST 2 MINUTES, AND THERE WAS NO WAY TO LEAVE A MESSAGE ON THEIR SYSTEM THERE WAS NEVER AN ANSWER. I WILL ASK SHIFT MGR TO CALL TAMIKO CANO TO SEE IF PLACEMENT AT A PSYCHIATRIC FACILITY AT THE [facility] OR IN [place] IS A POSSIBILITY, IF NOT, GERONIMO HAS INDICATED THAT SHE WOULD BE OKAY WITH A PLACEMENT IN [place] AT A PSYCHIATRIC FACILITY. Admission Dx URINARY TRACT INFECTION CRITICAL ILLNESS MYOPATHY DELIRIUM ANOREXIA CACHEXIA SMALL BOWEL RESECTION DEMENTIA DIARRHEA FECAL INCONTINENCE URINARY INCONTINENCE Clinical Quality Measures Admission Status Admission Dx URINARY TRACT INFECTION CRITICAL ILLNESS MYOPATHY DELIRIUM ANOREXIA CACHEXIA SMALL BOWEL RESECTION DEMENTIA DIARRHEA FECAL INCONTINENCE URINARY INCONTINENCE DVT/VTE Risk/Contraindication: Risk Factor Score Per Nursin RFS Level Per Nursing on Admit: 4+=Very High TITA LAINEZ MD Dec 29, 2019 09:19
[2019-12-29] MEDS: TRIM/SULFAMETH 160/800 (SEPTRA DS) TAB PO SCH ×2 (11:07→17:05)
[2019-12-29] MEDS: DRONABINOL 2.5 MG (MARINOL) CAP PO SCH ×2 (11:07→15:25)
[2019-12-29] MEDS: ENOXAPARIN 30 MG/0.3 ML (LOVENOX) SYR SC SCH (11:08)
[2019-12-29 15:38] VITALS: BP 120/78
[2019-12-29] MEDS: QUEtiapine 25 MG (SEROquel) TAB IMMEDIATE RELEASE PO SCH (17:05)
--- NOTE | 2019-12-29 18:49 | NUR ---
ATTEMPTED TO AMBULATE PT. TO BATHROOM PER PT. REQUEST. PT. STOOD UP WITH 2 PEOPLE ASSISTANCE AND STOOD POORLY WITH FEET CROSSING. PT. SHOOK HIS HEAD "NO" ,AND RETURNED TO BED WITH 2 PEOPLE ASSISTANCE. C/O OF HIP PAINS FREQ. MED. FOR C/O OF PAIN.
[2019-12-29] MEDS: OLANZapine 5 MG ODT (ZyPREXA ZYDIS) PO SCH (20:36)
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
[2019-12-30] MEDS: CYANOCOBALAMIN 1,000 MCG (VITAMIN B-12) TABLET PO SCH (06:52)
[2019-12-30] MEDS: HYDROcodone/APAP 5 MG/325 MG (LORTAB) TAB PO SCH ×3 (06:52→21:53)
[2019-12-30] MEDS: ADVAIR HFA 115/21 MCG INHALER 8 GM IH SCH (07:12)
[2019-12-30 07:54] VITALS: BP 120/89
[2019-12-30] MEDS: FOLIC ACID 1 MG TAB PO SCH (08:33)
[2019-12-30] MEDS: LOSARTAN 25 MG (COZAAR) TAB PO SCH (08:33)
[2019-12-30] MEDS: KCL 10 MEQ TAB (MICRO K) PO SCH ×2 (08:33→16:20)
[2019-12-30] MEDS: FAMOTIDINE 20 MG (PEPCID) TABLET PO SCH (08:33)
[2019-12-30] MEDS: FERROUS SULF 325 MG (IRON) TAB PO SCH (08:33)
[2019-12-30] MEDS: MEGESTROL 40 MG (MEGACE) TAB PO SCH ×2 (08:33→21:53)
[2019-12-30] MEDS: PANTOPRAZOLE 20 MG TABLET (PROTONIX) PO SCH (08:33)
[2019-12-30] MEDS: LACTOBACILLUS ACIDOPHILUS (PROBIOTIC) CAPSULE PO SCH ×3 (08:33→16:20)
[2019-12-30] MEDS: TRIM/SULFAMETH 160/800 (SEPTRA DS) TAB PO SCH ×2 (08:47→16:20)
--- NOTE | 2019-12-30 10:02 | Physical Therapy Daily Note ---
PT Daily Note-Current Subjective Patient is in bed eating dry cereal. Unable to answer questions appropriately on this date. Mental Status Patient Orientation: Confused Transfers SCALE: Activities may be completed with or without assistive devices. 7-[id number]-zdqaymp completes the activity by him/herself with no assistance from a helper. 5-Set-up or Clean-up Assistance-helper sets up or cleans up; patient completes activity. Dunbar assists only prior to or following the activity. 4-Supervision or Touching Assistance-helper provides verbal cues and/or touching/steadying and/or contact guard assistance as patient completes activity. Assistance may be provided throughout the activity or intermittently. 3-Partial/Moderate Assistance-helper does LESS THAN HALF the effort. Dunbar lifts, holds or supports trunk or limbs, but provides less than half the effort. 2-Substantial/Maximal Assistance-helper does MORE THAN HALF the effort. Dunbar lifts or holds trunk or limbs and provides more than half the effort. 4-Ugesgdwdf-nawrka does ALL the effort. Patient does none of the effort to complete the activity. Or, the assistance of 2 or more helpers is required for the patient to complete the activity. If activity was not attempted, code reason: 7-Patient Refused. 9-Not Applicable-not attempted and the patient did not perform the activity before the current illness, exacerbation or injury. 10-Not Attempted due to Environmental Limitations-(lack of equipment, weather restraints, etc.). 88-Not Attempted due to Medical Conditions or Safety Concerns. Roll Left & Right (QC): 1 Sit to Lying (QC): 1 Lying to Sitting/Side of Bed(Q: 1 Sit to Stand (QC): 1 (x 2 with patient placing left LE completely over right LE to attempt to stand (scissor). Unable to safely stand to FWW with dependent assist x 2 retropulsive, extreme trunk flexed posture with scissor gait. ) Weight Bearing Right Lower Extremity: Right Full Weight Bearing Left Lower Extremity: Left Full Weight Bearing Assessment Current Status: Regressing Patient incontinent urine in dependents requiring dependent assist to cleanse and change. Patient unable to safely ambulate on this date after 2 attempts with sit to stand and gait x 3' with inability to motor plan to perform gait sequence. PT Short Term Goals Short Term Goals Time Frame: Dec 16, 2019 Roll Left & Right: 6 Sit to lyin Lying to sitting on side of be: 5 Sit to stand: 5 Chair/uev-pg-bafzv transfer: 5 PT Plastics Fabricator Or Welder Goals Plastics Fabricator Or Welder Goals PT Plastics Fabricator Or Welder Goals Time Frame: Jan 03, 2020 Roll Left & Right (QC): 5 Sit to Lying (QC): 5 Lying-Sitting on Side/Bed(QC): 5 Sit to Stand (QC): 4 Chair/Ewd-eh-Rtjtv Xfer(QC): 4 Toilet Transfer (QC): 4 Car Transfer (QC): 3 Does the Patient Walk: No and Walking Goal IS indicated Walk 10 feet (QC): 4 Walk 50ft with 2 Turns (QC): 4 Walk 150 ft (QC): 4 1 Step (curb) (QC): 4 4 Steps (QC): 88 12 Steps (QC): 88 Picking up an Object (QC): 88 Does the Pt use WC or Scooter?: No Wheel 50 feet with 2 turns (QC: 9 Type: N/A Wheel 150 feet: 9 Type: N/A PT Plan Treatment/Plan Treatment Plan: Continue Plan of Care Treatment Plan: Bed Mobility, Education, Functional Activity [place], Functional Strength, Group Therapy, Gait, Safety, Therapeutic Exercise, Transfers Treatment Duration: Jan 03, 2020 Frequency: 5 times per week Estimated Hrs Per Day: .25 hour per day Patient and/or Family Agrees t: Yes Time/GCodes Time In: 902 Time Out: 928 Total Billed Treatment Time: 26 Total Billed Treatment 1 visit FA x 2 26 min ANSLEY ARCE PT Dec 30, 2019 10:02
[2019-12-30] MEDS: ENOXAPARIN 30 MG/0.3 ML (LOVENOX) SYR SC SCH (11:02)
[2019-12-30] MEDS: DRONABINOL 2.5 MG (MARINOL) CAP PO SCH ×2 (11:03→16:20)
--- NOTE | 2019-12-30 13:21 | Occ Therapy Progress Note ---
Therapy Progress Note Attempted to rouse pt. Pt would only open eyes to slits then shut them again. Pt either would not respond to questions or give a small shake of the head "no" with eyes closed. Reported to nrsg. Nrsg stated that she had been trying to get pt to eat and pt would keep eyes closed and press lips together. [id number] refusal, 1 visit FATOUMATA DEL REAL Dec 30, 2019 13:21
--- NOTE | 2019-12-30 13:42 | NUR ---
CM: Follow up as to pt needing referral for Inpatient Geriatric Psyc. Referral sent to [facility]. Speak with Adela Mclean, Ekg Monitor - she is able to verify the process for getting a pt admitted. Information given for pt to be referred Doctor to Doctor. Information given to Dr. Carpenter. She is able to call and see if pt can be admitted to their hospital. Pt is DENIED. They suggest that a referral be made to [facility] [phone] or [facility] [phone].
--- NOTE | 2019-12-30 13:49 | NUR ---
CM/SS: Referral to [place], [place] - phone number [phone]. Information faxed [phone] for consideration. They are aware that pt is a [place] and was denied at [facility] and they have suggested a referral to their facility. Information is sent to them for review.
--- NOTE | 2019-12-30 13:56 | NUR ---
CM/SS: Returned call from [facility] in [place], [place] - Behavioral Health - [phone] - FAX [phone]. They are unable take any admissions on today. They will keep pt on the list and see if they are able to take pt on tomorrow. This worker will follow up.
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
[2019-12-30 16:00] VITALS: BP 132/73
[2019-12-30] MEDS: QUEtiapine 25 MG (SEROquel) TAB IMMEDIATE RELEASE PO SCH (16:21)
[2019-12-30] MEDS: OLANZapine 5 MG ODT (ZyPREXA ZYDIS) PO SCH (21:53)
[2019-12-31 00:42] VITALS: BP 125/73
[2019-12-31] MEDS: ADVAIR HFA 115/21 MCG INHALER 8 GM IH SCH ×3 (00:51→19:15)
[2019-12-31] MEDS: HYDROcodone/APAP 5 MG/325 MG (LORTAB) TAB PO SCH ×3 (06:01→23:12)
[2019-12-31] MEDS: CYANOCOBALAMIN 1,000 MCG (VITAMIN B-12) TABLET PO SCH (06:02)
[2019-12-31 07:55] VITALS: BP 126/78
[2019-12-31] MEDS: LACTOBACILLUS ACIDOPHILUS (PROBIOTIC) CAPSULE PO SCH ×3 (08:15→17:29)
[2019-12-31] MEDS: FERROUS SULF 325 MG (IRON) TAB PO SCH (08:15)
[2019-12-31] MEDS: KCL 10 MEQ TAB (MICRO K) PO SCH ×2 (08:15→17:29)
[2019-12-31] MEDS: FOLIC ACID 1 MG TAB PO SCH (08:15)
[2019-12-31] MEDS: FAMOTIDINE 20 MG (PEPCID) TABLET PO SCH (08:15)
[2019-12-31] MEDS: PANTOPRAZOLE 20 MG TABLET (PROTONIX) PO SCH (08:16)
[2019-12-31] MEDS: MEGESTROL 40 MG (MEGACE) TAB PO SCH ×2 (08:16→19:36)
[2019-12-31] MEDS: LOSARTAN 25 MG (COZAAR) TAB PO SCH (08:16)
[2019-12-31] MEDS: TRIM/SULFAMETH 160/800 (SEPTRA DS) TAB PO SCH ×2 (08:20→17:29)
--- NOTE | 2019-12-31 09:13 | Progress Note ---
Subjective Subjective Time Seen by Provider: 08:00 PT ALERT AND COMMUNICATING APON VISIT TODAY. ABDOMINAL WOUND CONTINUES TO DEPOSIT GRANULATION TISSUE AND PROGRESS WELL, NURSING STAFF WILL CHANGE ITS DRESSING LATER TODAY. NURSING STAFF SAID HE ATE A DONUT EARLIER TODAY. Review of Systems ROS Unable to Obtain: limited by confusion General: Fatigue, Malaise, Other (SLIGHTLY IMPROVED APPETITE) Pulmonary: No Dyspnea, No Cough Gastrointestinal: Diarrhea (INTERMITTENT) Genitourinary: Incontinence All Other Systems Reviewed All Other Systems Reviewed: No (ROS NOT REVIEWED DO TO PT AMS ) Objective Exam Vital Signs Vital Signs - First Documented 12/25/19 08:00 Temp 36.9 Pulse 92 Resp 18 B/P (MAP) 136/88 (104) Pulse Ox 95 O2 Delivery Room Air Capillary Refill : Less Than 3 SecondsLess Than 3 Seconds General Appearance: No Apparent Distress, Cachetic Eyes: Bilateral Eye Normal Inspection, Bilateral Eye PERRL, Bilateral Eye EOMI Respiratory: Chest Non Tender, Lungs Clear, Normal Breath Sounds, Other (MUCOUS OF TRACHEA ) Cardiovascular: Regular Rate, Rhythm, Normal Peripheral Pulses Gastrointestinal: Other (GRANULATION TISSUE IN WOUND BED, MINIMAL DISCHARGE NOTED. 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 12/29 CULTURE RESULTS SHOW 100K CFU OF KLEBSIELLA PNEUMONIAE WITH SENSITIVITY TO BACTRIM, CONTINUE AB REGIMENT. CRITICAL ILLNESS MYOPATHY - SUPPORTIVE CARE, HE CANNOT PARTICIPATE WELL WITH THERAPY DUE TO HIS DEMENTIA AND DELIRIUM, SUPPORTIVE CARE AND WE WILL NEED TO LOOK FOR A HALFWAY WHICH CAN TAKE HIM WITH HIS MULTIPLE NEEDS. GERONIMO TOLD THE LEASING SALES CONSULTANT THAT WE DID NOT AGREE ON HIS CARE BECAUSE SHE WAS AN OPTIMIST AND THIS PRESCHOOL ASSISTANT PRINCIPAL WAS NOT, AND SHE WOULD NOT LET HIM GO TO A HALFWAY BECAUSE SHE WAS NOT WILLING TO GIVE UP HER PRIVILEGE OF SEEING HIM EVERY DAY. GERONIMO HAS APPARENTLY HAD A DISCUSSION WITH "MY TOOL PROCUREMENT COORDINATOR AND OTHERS" WHO TOLD HER THAT A MEDICAL DOCTOR SHOULD NOT BE PRESCRIBING IM GEODON OR HALDOL AND THAT ONLY A PSYCHIATRIST SHOULD PRESCRIBE THAT MEDICATION. SHE ALSO TOLD STAFF THAT THEY HAVE NOT BEEN OFFERED A PSYCHIATRIST - AND SHE WAS INFORMED THAT WE DO NOT HAVE PSYCHIATRY AT THIS HOSPITAL. THE SEARCH BY MAILROOM COURIER TO FIND A ADMITTING GERIATRIC PSYCH FACILITY FOR PT CONTINUES. DELIRIUM, ANOREXIA, CACHEXIA - SLIGHTLY IMPROVED APPETITE - PT ON MEGACE AND MARINOL SMALL BOWEL RESECTION WITH OPEN ABDOMINAL WOUND - WOUND CARE FOR ABDOMINAL WOUND, CONTINUES TO HEAL WITH WET TO DRY DRESSINGS. DIARRHEA WITH FECAL INCONTINENCE - IMPROVED WITH PROBIOTICS. URINARY INCONTINENCE - SUPPORTIVE CARE ONLY AT THIS TIME. ANEMIA - DUE TO EXTENSIVE ILLNESS, BLOOD LOSS AND POOR INTAKE, CHECKED IRON PANEL - DOES NOT REQUIRE IV IRON AT THIS TIME, TRANSFUSE IF NEEDED IF HGB DROPS BELOW 7. 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 URINARY TRACT INFECTION CRITICAL ILLNESS MYOPATHY DELIRIUM ANOREXIA CACHEXIA SMALL BOWEL RESECTION DEMENTIA DIARRHEA FECAL INCONTINENCE URINARY INCONTINENCE URINARY TRACT INFECTION - RECURRENT - WAS FINISHED WITH IV ANTIBIOTICS ON 12/15/2019, HOWEVER UA OBTAINED ON 12/28/2019 AND I HAVE INITIATED ORAL ANTIBIOTICS BACTRIM DS X 5 DAYS CRITICAL ILLNESS MYOPATHY - SUPPORTIVE CARE, HE CANNOT PARTICIPATE WELL WITH THERAPY DUE TO HIS DEMENTIA AND DELIRIUM, SUPPORTIVE CARE AND WE WILL NEED TO LOOK FOR A HALFWAY WHICH CAN TAKE HIM WITH HIS MULTIPLE NEEDS. - PT CONTINUES TO PHYSICALLY DECLINE, I HAVE DISCUSSED WITH GERONIMO THE FACT THAT HIS BODY CONTINUES TO BECOME MORE WASTED AND HE IS NOT EATING WELL, SHE DOES NOT WANT A FEEDING TUBE AND I HAVE DISCUSSED WITH DR. LOFTON A FEEDING TUBE WHICH HE REPORTS IS NOT A VIABLE OPTION DUE TO HIS MULTIPLE GASTRIC SURGERIES, GASTROPARESIS. DELIRIUM, ANOREXIA, CACHEXIA - SLIGHTLY IMPROVED APPETITE - PT ON MEGACE AND MARINOL SMALL BOWEL RESECTION WITH OPEN ABDOMINAL WOUND - WOUND CARE FOR ABDOMINAL WOUND, CONTINUES TO HEAL WITH WET TO DRY DRESSINGS. DIARRHEA WITH FECAL INCONTINENCE - IMPROVED WITH PROBIOTICS. URINARY INCONTINENCE - SUPPORTIVE CARE ONLY AT THIS TIME. ANEMIA - - IMPROVED - PERSISTENT ANEMIA BELOW HGB OF 10 DUE TO EXTENSIVE ILLNESS, BLOOD LOSS AND POOR INTAKE, CHECKED IRON PANEL - DOES NOT REQUIRE IV IRON AT THIS TIME, TRANSFUSE IF NEEDED IF HGB DROPS BELOW 7. PLACEMENT IS A HUGE MONIKA WITH THIS PATIENT DUE TO HIS SPOUSE REFUSING TO CONSIDER HALFWAY PLACEMENT. SHE HAS BEEN TOLD MULTIPLE TIMES OF PLANS FOR DISCHARGE AND SHE HAS BEEN REFUSING TO GIVE NAMES OF PLACES SHE WOULD CONSIDER ACCEPTABLE PLACEMENT OPTIONS- HOWEVER SHE ADMITTED TO "DRAGGING MY FEET" - SEE EXTENSIVE LEASING SALES CONSULTANT NOTES. SHE IS AWARE OF THIS PLAN MYSELF AND THE LEASING SALES CONSULTANT HAVE DISCUSSED WITH HER THE PLAN. I WILL MOVE FORWARD WITH THE DISCHARGE PLAN DESPITE HER DESIRE TO KEEP HIM IN THE HOSPITAL SO THAT SHE CAN VISIT HIM DAILY. I HAVE DISCUSSED WITH GERONIMO THE PLAN ON 12/28/2019 - SHE HAS AGREED TO SEEK PLACEMENT - SHE WOULD LIKE TO LOOK AT [facility] - I HAVE ATTEMPTED TO CALL THE PSYCHIATRIC DEPT, BUT THERE WAS NO ANSWER DESPITE LETTING IT RING FOR AT LEAST 2 MINUTES, AND THERE WAS NO WAY TO LEAVE A MESSAGE ON THEIR SYSTEM THERE WAS NEVER AN ANSWER. I WILL ASK MAILROOM COURIER TO CALL CLARENCE TOSCANO TO SEE IF PLACEMENT AT A PSYCHIATRIC FACILITY AT THE [facility] OR IN [place] IS A POSSIBILITY, IF NOT, GERONIMO HAS INDICATED THAT SHE WOULD BE OKAY WITH A PLACEMENT IN [place] AT A PSYCHIATRIC FACILITY. CELIA PASCUAL MED STUDENT Dec 31, 2019 09:13 TITA LAINEZ MD Jan 03, 2020 09:49
--- NOTE | 2019-12-31 09:20 | Physical Therapy Progress Note ---
Therapy Progress Note PT to dismiss patient from services per Dr. Carpenter's order. Patient has regressed with gross motor skills. Physician assessed patient this a.m. to determine therapy POC and discharging therapies due to patient's inability to follow simple direction to received skilled therapy intervention. ANSLEY ARCE PT Dec 31, 2019 09:20
--- NOTE | 2019-12-31 09:59 | Occupational Ther Daily Note ---
OT Current Status-Daily Note Subjective Pt alert, lying in bed. Live sitter present in room. Pt would only shake head or raise arm for any question asked, no verbalization. Physician cancelled therapy orders after OT session. Mental Status/Objective Patient Orientation: Unable to Assess Attachments: IV ADL-Treatment Pt incontinent of urine in brief. When asked if he was incontinent of bowel, pt shook head 'yes' though he was not. Assist x2 to cleanse pt after incontinency of urine. Therapy Code Descriptions/Definitions Functional [place] Measure: 0=Not Assessed/NA 4=Minimal Assistance 1=Total Assistance 5=Supervision or Setup 2=Maximal Assistance 6=Modified [place] 3=Moderate Assistance 7=Complete IndependenceSCALE: Activities may be completed with or without assistive devices. 9-Kbawhczwjt-nvfkosm completes the activity by him/herself with no assistance from a helper. 5-Set-up or Clean-up Assistance-helper sets up or cleans up; patient completes activity. Tenmile assists only prior to or following the activity. 4-Supervision or Touching Assistance-helper provides verbal cues and/or touching/steadying and/or contact guard assistance as patient completes activ ity. Assistance may be provided throughout the activity or intermittently. 3-Partial/Moderate Assistance-helper does LESS THAN HALF the effort. Tenmile lifts, holds or supports trunk or limbs, but provides less than half the effort. 2-Substantial/Maximal Assistance-helper does MORE THAN HALF the effort. Tenmile lifts or holds trunk or limbs and provides more than half the effort. 1-Madpcagpt-itudul does ALL the effort. Patient does none of the effort to complete the activity. Or, the assistance of 2 or more helpers is required for the patient to complete the activity. If activity was not attempted, code reason: 7-Patient Refused. 9-Not Applicable-not attempted and the patient did not perform the activity before the current illness, exacerbation or injury. 10-Not Attempted due to Environmental Limitations-(lack of equipment, weather restraints, etc.). 88-Not Attempted due to Medical Conditions or Safety Concerns. OT Short Term Goals Short Term Goals Time Frame: Dec 16, 2019 Eatin Oral hygiene: 3 Toileting hygiene: 2 OT Front Office Developer Goals Prison Goals Time Frame: Dec 23, 2019 Eating (QC): 4 Oral Hygiene (QC): 4 Toileting Hygiene (QC): 3 Additional Goals: 1-Demonstrate ADL Tasks, 2-Verbalize Understanding, 3- ImproveStrength/Wicho 1=Demonstrate adherence to instructed precautions during ADL tasks. 2=Patient will verbalize/demonstrate understanding of assistive devices/modifications for ADL. 3=Patient will improve strength/tolerance for activity to enable patient to perform ADL's. OT Education/Plan Discharge Recommendations Plan/Recommendations: Discontinue OT (physician cancelled orders) Treatment Plan/Plan of Care Patient would benefit from OT for education, treatment and training to promote i ndependence in ADL's, mobility, safety and/or upper extremity function for ADL's. Plan of Care: ADL Retraining, Functional Mobility, UE Funct Exercise/Act Treatment Duration: Dec 23, 2019 Frequency: 5 times per week Estimated Hrs Per Day: .25 hour per day Agreement: Yes Rehab Potential: Guarded Time/GCodes Start Time: 09:00 Stop Time: 09:10 Total Time Billed (hr/min): 10 Billed Treatment Time 1 visit-ADL 1 (10 min) FATOUMATA DEL REAL Dec 31, 2019 09:59
[2019-12-31] MEDS: DRONABINOL 2.5 MG (MARINOL) CAP PO SCH ×2 (10:08→17:29)
[2019-12-31] MEDS: ENOXAPARIN 30 MG/0.3 ML (LOVENOX) SYR SC SCH (10:08)
--- NOTE | 2019-12-31 10:51 | NUR ---
CM/SS: Pt has been DENIED for [facility] in [place], [place]. Concern for the Distance related to discharge planning, Delirium, and wound care.
--- NOTE | 2019-12-31 13:25 | NUR ---
CM/SS: Pt was DENIED placement at [facility] [place] - Distance is the reason pt has been denied - unable to adequately coordinate services with pt and family.
--- NOTE | 2019-12-31 13:31 | NUR ---
CM/SS: Telephone Call to [facility] [place] - [place] - [phone], and fax - [phone] -they have reviewed pt's information they are unable to take pt today due to acuity, however they continue to have pt on the list as needing a placement.
[2019-12-31 16:00] VITALS: BP 121/70
--- NOTE | 2019-12-31 16:06 | NUR ---
CM/SS: Referral to [facility] - current wait list of 6. Information faxed to [phone]. Note: Bed control [phone].
--- NOTE | 2019-12-31 16:08 | NUR ---
CM/SS: Referral to [place], [place] - Information faxed.
--- NOTE | 2019-12-31 16:11 | NUR ---
CM/SS: Referral to [place], [place] - Information faxed
--- NOTE | 2019-12-31 16:12 | NUR ---
CM/SS: Telephone Call from Colette (spouse) she reports that she has been at the [facility] in [place] all day and that she has decided that she will be taking pt home and that she will be working with [facility] to set up home care and private caregivers. She is informed that pt has been denied at [facility], and [facility] in [place], [place]. This worker will follow up.
--- NOTE | 2019-12-31 17:16 | NUR ---
CM/SS: Pt has been denied for placement at [facility] in [place], [place]. They are unable to meet pt's needs at this time.
--- NOTE | 2019-12-31 17:17 | NUR ---
CM/SS: Met with pt's spouse (Colette) to discuss her plan to take pt home with the assistance of the VA with home care and private caregivers. Summary: Spouse has talked with the [facility] today in [place] and she is wanting to take pt home once things are arranged with equipment and caregivers and services. She reports the [facility] psychotherapist social worker is Adela Mclean. The [place] has advised her that the pt being home will do wonders for him. Spouse reports that she is apprehensive about taking pt home, and some about getting everything lined up, but feels as if it is best at this time. Discuss the need for pt to get his mental health and recent aggression managed. She feels ok about taking him home. She plans to follow up with the [place] psychiatrist. Discuss other referrals that we have out. She is reminded about [place], [place], [place], [facility] in [place] with the wait list of 6 as well as a few others. She declines going to [place] and only seems to want to entertain the [place] referral. At this time she reports that she wants to take pt home. This worker indicates that referrals are still out and that we will hold off on telling them no in case someone is willing to accept. She seems ok with that, however still reports she will take pt home. List of equipment needed for the home: hospital bed, over bed table, walker, wheelchair - pt is 6' 2" tall. Weight is undetermined, and commode. This is what she can think of at this time. She reports that [place] will make all of the arrangements. This worker shares she will call Adela in the morning and determine what can be done on this end to assist with the transition to home. She is ok with that at this time. She does report that she called the doctor, (Dr Carpenter) and left message about her intent to take pt home. Talk with spouse as to pt's aggressive behavior. She reports that he has not been like that before. She is encouraged to talk with pt as to his following instructions and not putting his hands on staff. She verbalizes understanding. This worker will follow up.
[2019-12-31] MEDS: QUEtiapine 25 MG (SEROquel) TAB IMMEDIATE RELEASE PO SCH (17:29)
[2019-12-31] MEDS: OLANZapine 5 MG ODT (ZyPREXA ZYDIS) PO SCH (19:36)
[2019-12-31] MEDS: HYDROcodone/APAP 10 MG/325 MG (LORTAB) TAB PO PRN (19:37)
[2019-12-31 23:17] VITALS: BP 134/74
[2020-01-01] MEDS: CYANOCOBALAMIN 1,000 MCG (VITAMIN B-12) TABLET PO SCH (06:18)
[2020-01-01] MEDS: HYDROcodone/APAP 5 MG/325 MG (LORTAB) TAB PO SCH ×3 (06:18→20:58)
[2020-01-01 07:48] VITALS: BP 131/90
[2020-01-01] MEDS: ADVAIR HFA 115/21 MCG INHALER 8 GM IH SCH ×2 (07:51→19:22)
--- NOTE | 2020-01-01 08:15 | NUR ---
Spoke with second [facility] facility this morning that is willing to consider patient for admission. To recap [facility] in [place], [place] and now [facility] in [place], [place] have both voiced that they are willing to consider Mr. Oliveros for admission to their facilities. They both have also voiced that they will need a signed letter by his and DPOA that she will agree to admission to their facility and disposition of discharge at the discretion of the medical logistics specialist when he/she believes Mr. Oliveros is ready to be discharged. Also referencing that she has been informed of the no visitor policy d/t COVID 19 restrictions. Facility Needs: [facility]- Full lab work up including UA within 72hr of discharge. Negative COVID test within 48hr of discharge. Signed and notarized copy of the above mentioned document. Signed affidavit by Dr. Carpenter. [facility]- Negative COVID test within 48hr of discharge. Signed and notarized copy of the above mentioned document. Signed affidavit by Dr. Carpenter. Both facilities voiced that it does appear that the patient is in need of in patient geriatric psych treatment and would benefit from those services. They are willing to consider him for admission but due to his being a known barrier/problem for discharge planning they are requesting extra assurances before being able to move forward with acceptance/denial. Addendum: 01/01/20 at 0836 by IRMA GREEN RN [facility] contact is Dahlia KWONG of inpatient psych phone number [phone]. Fax number is [phone] [facility] contact is Hermes [phone] and fax number is [phone].
[2020-01-01] MEDS: FERROUS SULF 325 MG (IRON) TAB PO SCH (08:44)
[2020-01-01] MEDS: FAMOTIDINE 20 MG (PEPCID) TABLET PO SCH (08:44)
[2020-01-01] MEDS: LOSARTAN 25 MG (COZAAR) TAB PO SCH (08:44)
[2020-01-01] MEDS: FOLIC ACID 1 MG TAB PO SCH (08:44)
[2020-01-01] MEDS: TRIM/SULFAMETH 160/800 (SEPTRA DS) TAB PO SCH ×2 (08:44→18:13)
[2020-01-01] MEDS: MEGESTROL 40 MG (MEGACE) TAB PO SCH ×2 (08:44→19:51)
[2020-01-01] MEDS: PANTOPRAZOLE 20 MG TABLET (PROTONIX) PO SCH (08:44)
[2020-01-01] MEDS: LACTOBACILLUS ACIDOPHILUS (PROBIOTIC) CAPSULE PO SCH ×3 (08:45→18:13)
[2020-01-01] MEDS: KCL 10 MEQ TAB (MICRO K) PO SCH ×2 (08:45→18:13)
--- NOTE | 2020-01-01 09:40 | Progress Note ---
Subjective Subjective Time Seen by Provider: 08:00 PT ALERT AND ABLE TO ANSWER ONLY YES/NO QUESTIONS, BESIDES THIS COMMUNICATION WAS DECREASED COMPARED TO YESTERDAY LIKELY DUE TO PT BEING MILDLY AGITATED ABOUT TAKING HIS MEDS THIS MORNING. NURSING STAFF WILL CHANGE PTS DRESSING LATER TODAY. Review of Systems ROS Unable to Obtain: LIMITED BY AGITIATION General: Fatigue, Malaise, Other (SLIGHTLY IMPROVED APPETITE THIS WEEK OVERAL COMPARED TO LAST. ) Pulmonary: No Dyspnea, No Cough Gastrointestinal: Diarrhea (INTERMITTENT) Genitourinary: Incontinence All Other Systems Reviewed All Other Systems Reviewed: No (ROS NOT REVIEWED DO TO PT AMS ) Objective Exam Vital Signs Vital Signs - First Documented Capillary Refill : Less Than 3 SecondsLess Than 3 Seconds General Appearance: No Apparent Distress, Cachetic Eyes: Bilateral Eye Normal Inspection, Bilateral Eye PERRL, Bilateral Eye EOMI Respiratory: Chest Non Tender, Lungs Clear, Normal Breath Sounds, Other (MUCOUS OF TRACHEA ) Cardiovascular: Regular Rate, Rhythm, Normal Peripheral Pulses Gastrointestinal: Normal Bowel Sounds, Other (GRANULATION TISSUE IN WOUND BED, MINIMAL DISCHARGE NOTED (12/30). 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 12/29 CULTURE RESULTS SHOW 100K CFU OF KLEB SIELLA PNEUMONIAE WITH SENSITIVITY TO BACTRIM, CONTINUE AB REGIMENT. CRITICAL ILLNESS MYOPATHY - SUPPORTIVE CARE, HE CANNOT PARTICIPATE WELL WITH THERAPY DUE TO HIS DEMENTIA AND DELIRIUM, SUPPORTIVE CARE AND WE WILL NEED TO LOOK FOR A RETIREMENT WHICH CAN TAKE HIM WITH HIS MULTIPLE NEEDS. GERONIMO TOLD THE MANAGER OF SECURITY THAT WE DID NOT AGREE ON HIS CARE BECAUSE SHE WAS AN OPTIMIST AND THIS BURRER OPERATOR WAS NOT, AND SHE WOULD NOT LET HIM GO TO A RETIREMENT BECAUSE SHE WAS NOT WILLING TO GIVE UP HER PRIVILEGE OF SEEING HIM EVERY DAY. GERONIMO HAS APPARENTLY HAD A DISCUSSION WITH "MY BARREL BURNER AND OTHERS" WHO TOLD HER THAT A MEDICAL DOCTOR SHOULD NOT BE PRESCRIBING IM GEODON OR HALDOL AND THAT ONLY A PSYCHIATRIST SHOULD PRESCRIBE THAT MEDICATION. SHE ALSO TOLD STAFF THAT THEY HAVE NOT BEEN OFFERED A PSYCHIATRIST - AND SHE WAS INFORMED THAT WE DO NOT HAVE PSYCHIATRY AT THIS HOSPITAL. THE SEARCH BY OD GRINDER OPERATOR TO FIND A ADMITTING GERIATRIC PSYCH FACILITY FOR PT CONTINUES, IS ALSO LOOKING INTO THE POSSIBILITY OF DISCHARGING HIM TO HOME WITH CARE ASSISTANCE. DELIRIUM, ANOREXIA, CACHEXIA - SLIGHTLY IMPROVED APPETITE - PT ON MEGACE AND MARINOL SMALL BOWEL RESECTION WITH OPEN ABDOMINAL WOUND - WOUND CARE FOR ABDOMINAL WOUND, CONTINUES TO HEAL WITH WET TO DRY DRESSINGS. DIARRHEA WITH FECAL INCONTINENCE - IMPROVED WITH PROBIOTICS. URINARY INCONTINENCE - SUPPORTIVE CARE ONLY AT THIS TIME. ANEMIA - DUE TO EXTENSIVE ILLNESS, BLOOD LOSS AND POOR INTAKE, CHECKED IRON PANEL - DOES NOT REQUIRE IV IRON AT THIS TIME, TRANSFUSE IF NEEDED IF HGB DROPS BELOW 7. 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 URINARY TRACT INFECTION CRITICAL ILLNESS MYOPATHY DELIRIUM ANOREXIA CACHEXIA SMALL BOWEL RESECTION DEMENTIA DIARRHEA FECAL INCONTINENCE URINARY INCONTINENCE CELIA PASCUAL MED STUDENT Jan 01, 2020 09:40 TITA LAINEZ MD Jan 03, 2020 09:51
--- NOTE | 2020-01-01 11:11 | NUR ---
CM/SS: [place] [facility] Adel[place] Mclean, [employer] [phone] ext [phone] clarify the information as to what they can provide for pt at the time of discharge. Plan: Undetermined at this time. [facility] facility is still being sought as well as spouse has expressed that she wants to take pt home with services with VA as well as home care and caregivers. Summary: GEOFF Chapman from [facility] reports that they would like pt to be set up with Home Care Services, no specific agency, that will utilize his Medicare. This is somethings that this worker is able to set up. No specific home care agency. VA will provide All equipment that pt is needing. Adela is given a list of equipment that pt will need. Hospital bed, over bed table, Walker, Wheelchair, Over the bed table, and bedside commode. VA request a follow up appt within two weeks post discharge - with [facility] - [facility]. [facility] will also offer respite to Colette - ayse t 6 hours per day for a total of 30 days a year, this is likely to happen two times per month VA does indicate that if she is needing round the clock caregivers, she will need to provide and pay for them if that is what she is requesting. Adela is encouraged to ensure that she talks with spouse on the specifics of what they can provide and what she will need to provide. Adela indicates she will follow up with spouse and let her know the above information. Adela is aware that the goal is to get pt discharged by the end of the week or as timely as possible. This worker will follow up.
[2020-01-01] MEDS: DRONABINOL 2.5 MG (MARINOL) CAP PO SCH ×2 (11:31→16:58)
[2020-01-01] MEDS: ENOXAPARIN 30 MG/0.3 ML (LOVENOX) SYR SC SCH (11:31)
--- NOTE | 2020-01-01 11:44 | NUR ---
CM/SS: Telephone call from [facility] - to follow up on some of the information that was sent on yesterday. All questions answered at this time. They are aware that pt has been COVID tested as well. They have the information and can verify the previous COVID tests.
--- NOTE | 2020-01-01 11:47 | NUR ---
CM/SS: Telephone Call from [facility], [place], [facility] - verifying that pt is still inpatient at the hospital and is still needing placement. This worker verified pt is still here and that placement is still being sought.
--- NOTE | 2020-01-01 11:48 | NUR ---
Received the fax number for [facility] and faxed the [facility] to [facility] ([facility]) per the direction of our policy and procedure for that process. Addendum: 01/01/20 at 1212 by IRMA GREEN RN [facility] has contacted me and reports that they will not be able to do anything with the [facility] letter that I sent to them d/t the patient/DPOA not requesting to have the case appealed on their behalf. In talking with [facility] it does not seem that our policy and procedure is up to date.
--- NOTE | 2020-01-01 13:10 | NUR ---
"RD ASSESSMENT PMHx: COPD; HTN; BPH; colitis; GERD: malnutrition; hypercholesterolemia; PT INTERACTION: Pt was awake and pleasant during nutrition follow-up. Pt states he has been eating well since last assessment. Note avg PO intake 41% x3d, per chart review. Pt states tolerating nutrition supplementation of Ensure HP with meals TID. Pt states no issues with nausea, vomiting, constipation, or diarrhea since last assessment. Note last BM was 12/31, and pt currently on bowel regimen of colace PRN; and bisacodyl PRN, per chart review. Note pt has 6# wt loss x8d, per chart review. Note presence of wound (abd incision), per chart review. ABNORMAL NUTRITION-RELATED LAB VALUES LOW: cr 0.57; Ca 8.2; alb 2.6 HIGH: Cl 108; BUN 23 Est. kcal needs: 1725 kcal | 35 kcal/kg Est. Pro needs: 59 g Pro | 1.2 g Pro/kg PES STATEMENT: Inadequate oral intake (NI-2.1) related to loss of appetite as evidenced by pt interview | avg PO intake 41% x3d Inadequate protein intake (NI-5.6.1) related to increased protein needs as evidenced by presence of wound (abd incision) INTERVENTION: Continue with current diet order of DYS2 Mechanically Altered diet. Continue with current diet order of Ensure HP (vary) TID (2-HS). Provides 160 kcal and 16 g Pro per serving. Will continue to follow and reassess as pt needs, intake, and status change. Flaco Dave, MS, RD, LD"
--- NOTE | 2020-01-01 13:30 | NUR ---
HERE. PT SHOWS INCREASED AGITATION. ATTEMPTING TO FEED PT CHANG CHARMS, PIZZA, CANDY CORN, AND POTATO CHIPS. PT THROWING LEGS OVER SIDE OF BED.
[2020-01-01] MEDS: HYDROcodone/APAP 10 MG/325 MG (LORTAB) TAB PO PRN (13:42)
[2020-01-01 15:10] VITALS: BP 121/84
--- NOTE | 2020-01-01 16:04 | NUR ---
CM/SS: Visited with spouse as to this worker's follow [facility] call with the [facility] as to what are the necessary steps for pt to be discharged. Spouse is informed that she will need to 1. select a Home Care provider, the Patient Preference Form is provided with list of Home Care agencies 2. [facility] will offer resp[facility] up to 6 hours a day -30 days per year- usually 2 times per month 3. [facility] to provide equipment - list given per previous conversation 4. Spouse is informed that she will need to provide 24 hour care givers if that is what she is wanting Spouse is encouraged to try and get things set up as timely as possible so that pt can be dismissed. The preference is for the end of the week. Spouse reports there is no way it will be at the end of the week. She has to get things arranged at the home. Spouse is also informed that there are still referrals out to [facility] [place], [place], [facility], and [facility]. Spouse reports that she will be reaching out to Dr Carpenter on tomorrow. This worker asked spouse if there is a time that can call her - she has no idea of a good time. She reports she will call in the afternoon. This worker will follow up.
[2020-01-01] MEDS: ACETAMINOPHEN 325 MG TABLET PO PRN (16:59)
[2020-01-01] MEDS: QUEtiapine 25 MG (SEROquel) TAB IMMEDIATE RELEASE PO SCH (16:59)
--- NOTE | 2020-01-01 17:05 | NUR ---
TYLENOL PO PER REQUEST FOR HEADACHE. PT DOES NOT ANSWER YES OR NO WHEN QUESTIONED ABOUT HEADACHE.
--- NOTE | 2020-01-01 17:58 | NUR ---
REQUESTED CHRISTOPHE ROBBINS. DR. TOBIAS Addendum: 01/01/20 at 1759 by MARY JEFF RN DR. LAINEZ NOTIFIED AND ORDER REC'D TO JONATHAN BRIONES AND [facility] PER REQUEST.
[2020-01-01] MEDS: OLANZapine 5 MG ODT (ZyPREXA ZYDIS) PO SCH (19:51)
[2020-01-02] VITALS: BP 131/87
[2020-01-02] MEDS: CYANOCOBALAMIN 1,000 MCG (VITAMIN B-12) TABLET PO SCH (06:54)
[2020-01-02] MEDS: HYDROcodone/APAP 5 MG/325 MG (LORTAB) TAB PO SCH ×3 (06:54→21:02)
[2020-01-02] MEDS: ADVAIR HFA 115/21 MCG INHALER 8 GM IH SCH ×2 (07:28→21:05)
[2020-01-02 07:30] VITALS: BP 119/87
[2020-01-02] MEDS: MEGESTROL 40 MG (MEGACE) TAB PO SCH ×2 (08:04→20:59)
[2020-01-02] MEDS: KCL 10 MEQ TAB (MICRO K) PO SCH ×2 (08:04→17:14)
[2020-01-02] MEDS: PANTOPRAZOLE 20 MG TABLET (PROTONIX) PO SCH (08:04)
[2020-01-02] MEDS: FOLIC ACID 1 MG TAB PO SCH (08:04)
[2020-01-02] MEDS: FAMOTIDINE 20 MG (PEPCID) TABLET PO SCH (08:04)
[2020-01-02] MEDS: TRIM/SULFAMETH 160/800 (SEPTRA DS) TAB PO SCH ×2 (08:04→17:12)
[2020-01-02] MEDS: LOSARTAN 25 MG (COZAAR) TAB PO SCH (08:04)
[2020-01-02] MEDS: FERROUS SULF 325 MG (IRON) TAB PO SCH (08:05)
[2020-01-02] MEDS: LACTOBACILLUS ACIDOPHILUS (PROBIOTIC) CAPSULE PO SCH ×3 (08:05→17:12)
--- NOTE | 2020-01-02 09:12 | Progress Note ---
Subjective Subjective Date Seen by Provider: Jan 02, 2020 Time Seen by Provider: 09:00 PT CONFUSED, PER STAFF HE HAS BEEN LYING IN BED WITHOUT COMPLAINT. STAFF DENIES ACUTE CONCERNS, THEY HAVE CHANGED HIS DRESSINGS AND STATE THAT HIS WOUND IS DOING WELL. Review of Systems ROS Unable to Obtain: LIMITED BY AGITIATION General: Fatigue, Malaise, Other (SLIGHTLY IMPROVED APPETITE THIS WEEK OVERAL COMPARED TO LAST. ) Pulmonary: No Dyspnea, No Cough Gastrointestinal: Diarrhea (INTERMITTENT) Genitourinary: Incontinence OPEN ABDOMINAL WOUND, CONFUSION AND IMPROVED COMBATIVENESS All Other Systems Reviewed All Other Systems Reviewed: No (ROS NOT REVIEWED DO TO PT AMS ) Objective Exam Vital Signs Vital Signs - First Documented 12/27/19 05:30 Temp 36.5 Pulse 95 Resp 16 B/P (MAP) 127/81 (96) Pulse Ox 96 O2 Delivery Room Air Capillary Refill : Less Than 3 SecondsLess Than 3 Seconds General Appearance: No Apparent Distress, Cachetic Eyes: Bilateral Eye Normal Inspection, Bilateral Eye PERRL, Bilateral Eye EOMI Respiratory: Chest Non Tender, Lungs Clear, Normal Breath Sounds, Other (MUCOUS OF TRACHEA ) Cardiovascular: Regular Rate, Rhythm, Normal Peripheral Pulses Gastrointestinal: Normal Bowel Sounds, Other (GRANULATION TISSUE IN WOUND BED, MINIMAL DISCHARGE NOTED (12/30). ) Extremity: Normal Capillary Refill Neurologic/Psychiatric: Alert Skin: Warm/Dry, Other (HEALING WOUND IN CENTER OF LOWER ABDOMINAL WOUND, GRANULATION TISSUE PINK, WITH SIGNIFICANTLY IMPROED CLOSURE OF WOUND COMPARED TO 12/10/2019 WOUND - AT LEAST 1/2 THE SIZE ) Results Lab Microbiology 12/28/19 Urine Culture - Final, Complete Klebsiella pneumoniae Assessment/Plan Assessment/Plan Admission Dx URINARY TRACT INFECTION CRITICAL ILLNESS MYOPATHY DELIRIUM ANOREXIA CACHEXIA SMALL BOWEL RESECTION DEMENTIA DIARRHEA FECAL INCONTINENCE URINARY INCONTINENCE Assessment and Plan URINARY TRACT INFECTION CRITICAL ILLNESS MYOPATHY DELIRIUM ANOREXIA CACHEXIA SMALL BOWEL RESECTION DEMENTIA DIARRHEA FECAL INCONTINENCE URINARY INCONTINENCE URINARY TRACT INFECTION - RECURRENT - WAS FINISHED WITH IV ANTIBIOTICS ON 12/15/2019, HOWEVER UA OBTAINED ON 12/28/2019 AND I HAVE INITIATED ORAL ANTIBIOTICS BACTRIM DS X 5 DAYS CRITICAL ILLNESS MYOPATHY - SUPPORTIVE CARE, HE CANNOT PARTICIPATE WELL WITH THERAPY DUE TO HIS DEMENTIA AND DELIRIUM, SUPPORTIVE CARE AND WE WILL NEED TO LOOK FOR A PENITENTIARY WHICH CAN TAKE HIM WITH HIS MULTIPLE NEEDS. - PT CONTINUES TO PHYSICALLY DECLINE, I HAVE DISCUSSED WITH GERONIMO THE FACT THAT HIS BODY CONTINUES TO BECOME MORE WASTED AND HE IS NOT EATING WELL, SHE DOES NOT WANT A FEEDING TUBE AND I HAVE DISCUSSED WITH DR. LOFTON A FEEDING TUBE WHICH HE REPORTS IS NOT A VIABLE OPTION DUE TO HIS MULTIPLE GASTRIC SURGERIES, GASTROPARESIS. DELIRIUM, ANOREXIA, CACHEXIA - SLIGHTLY IMPROVED APPETITE - PT ON MEGACE AND MARINOL SMALL BOWEL RESECTION WITH OPEN ABDOMINAL WOUND - WOUND CARE FOR ABDOMINAL WOUND, CONTINUES TO HEAL WITH WET TO DRY DRESSINGS. DIARRHEA WITH FECAL INCONTINENCE - IMPROVED WITH PROBIOTICS. URINARY INCONTINENCE - SUPPORTIVE CARE ONLY AT THIS TIME. ANEMIA - - IMPROVED - PERSISTENT ANEMIA BELOW HGB OF 10 DUE TO EXTENSIVE ILLNESS, BLOOD LOSS AND POOR INTAKE, CHECKED IRON PANEL - DOES NOT REQUIRE IV IRON AT THIS TIME, TRANSFUSE IF NEEDED IF HGB DROPS BELOW 7. PLACEMENT IS A HUGE MONIKA WITH THIS PATIENT DUE TO HIS SPOUSE REFUSING TO CONSIDER PENITENTIARY PLACEMENT. SHE HAS BEEN TOLD MULTIPLE TIMES OF PLANS FOR DISCHARGE AND SHE HAS BEEN REFUSING TO GIVE NAMES OF PLACES SHE WOULD CONSIDER ACCEPTABLE PLACEMENT OPTIONS- HOWEVER SHE ADMITTED TO "DRAGGING MY FEET" - SEE EXTENSIVE ASSESSMENT RN NOTES. SHE IS AWARE OF THIS PLAN MYSELF AND THE ASSESSMENT RN HAVE DISCUSSED WITH HER THE PLAN. I WILL MOVE FORWARD WITH THE DISCHARGE PLAN DESPITE HER DESIRE TO KEEP HIM IN THE HOSPITAL SO THAT SHE CAN VISIT HIM DAILY. I HAVE DISCUSSED WITH GERONIMO THE PLAN ON 12/28/2019 - SHE HAS AGREED TO SEEK PLACEMENT - SHE WOULD LIKE TO LOOK AT [facility] - I HAVE ATTEMPTED TO CALL THE PSYCHIATRIC DEPT, BUT THERE WAS NO ANSWER DESPITE LETTING IT RING FOR AT LEAST 2 MINUTES, AND THERE WAS NO WAY TO LEAVE A MESSAGE ON THEIR SYSTEM THERE WAS NEVER AN ANSWER. I WILL ASK IN STORE BANKER TO CALL TOMORROW TO SEE IF PLACEMENT AT A PSYCHIATRIC FACILITY AT THE [facility] OR IN [place] IS A POSSIBILITY, IF NOT, GERONIMO HAS INDICATED THAT SHE WOULD BE OKAY WITH A PLACEMENT IN [place] AT A PSYCHIATRIC FACILITY. UPDATE - 01/02/2020 - [facility] HAS TENTATIVELY ACCEPTED [facility], WE ARE WAITING ON FINAL APPROVAL, HOWEVER GERONIMO HAS TO SIGN A PAPER STATING THAT SHE WILL NOT INTERFERE WITH THE DISCHARGE PLAN ON [facility] FROM THEIR FACILITY. I HAVE DISCUSSED THE CASE WITH HER WIRELESS WATCHER - MONTSE - AND HE WILL TALK TO GERONIMO ABOUT THE SITUATION WELL. GERONIMO GAVE ME VERBAL PERMISSION - IN FRONT OF THE ASSESSMENT RN, AND THREE OTHER CARE MANAGEMENT STAFF MEMBERS. Admission Dx URINARY TRACT INFECTION CRITICAL ILLNESS MYOPATHY DELIRIUM ANOREXIA CACHEXIA SMALL BOWEL RESECTION DEMENTIA DIARRHEA FECAL INCONTINENCE URINARY INCONTINENCE Clinical Quality Measures Admission Status Admission Dx URINARY TRACT INFECTION CRITICAL ILLNESS MYOPATHY DELIRIUM ANOREXIA CACHEXIA SMALL BOWEL RESECTION DEMENTIA DIARRHEA FECAL INCONTINENCE URINARY INCONTINENCE DVT/VTE Risk/Contraindication: Risk Factor Score Per Nursin RFS Level Per Nursing on Admit: 4+=Very High TITA LAINEZ MD Jan 02, 2020 09:11
[2020-01-02 09:33] LABS: MEAN PLATELET VOLUME 9.7 fL (9.0-12.2); WHITE BLOOD COUNT 8.5 10^3/uL (4.3-11.0)
[2020-01-02 09:51] LABS: ALANINE AMINOTRANSFERASE 21 U/L (0-55); ALBUMIN 2.8 GM/DL (3.2-4.5); ALKALINE PHOSPHATASE 81 U/L (40-136); BILIRUBIN,TOTAL 0.2 MG/DL (0.1-1.0); BUN/CREATININE RATIO 30; CALCIUM 8.8 MG/DL (8.5-10.1); CARBON DIOXIDE 19 MMOL/L (21-32); CHLORIDE 110 MMOL/L (98-107); CREATININE SERUM 0.77 MG/DL (0.60-1.30); GFR ESTIMATED > 60; GLUCOSE 94 MG/DL (70-105); POTASSIUM 5.3 MMOL/L (3.6-5.0); SODIUM 138 MMOL/L (135-145); TOTAL PROTEIN 7.7 GM/DL (6.4-8.2)
[2020-01-02] MEDS: DRONABINOL 2.5 MG (MARINOL) CAP PO SCH ×2 (10:45→17:12)
[2020-01-02] MEDS: ENOXAPARIN 30 MG/0.3 ML (LOVENOX) SYR SC SCH (10:45)
--- NOTE | 2020-01-02 12:11 | NUR ---
CM/SS: Telephone call from [facility] - [phone] they are needing to talk with spouse as they are needing some information from her and need for her to sign papers if pt is to go to their facility. They are able to take pt likely today. Telephone call to spouse - [phone] - she does not want pt to go to [place], [place] as it is too far away. She also wants pt to go to [place], [place] as it is closer and that she has determined that she does not want to take pt home and he needs to go to somewhere to handle the geriatric psychiatric.
--- NOTE | 2020-01-02 12:20 | NUR ---
CM/SS: Spouse calls and shares that she is ok for pt to go [place], [place]. She is aware that they have requested a affidavit to be signed by the physician and for spouse to sign an agreement to follow their recommendations for placement and discharge. Spouse reports that she is not signing anything until her assistant prosecuting attorney looks at it. She will not be in until this afternoon. She is requested to call this worker when she arrives at the hospital today. She verbalizes understanding.
--- NOTE | 2020-01-02 12:34 | NUR ---
CM/SS: Telephone Call to Adult Protective Services - Oliva Jones - Wanted to review the case with Oliva Robert to determine if a report needs to be submitted based on the hesitance in spouse agreeing on places for pt to be discharged to. Oliva is given information as to his hospital stay and some of the barriers. Oliva suggest that if able and with permission we speak with the employment law attorney and apprise him of the resistance for spouse agreeing for pt to be moved from the hospital, she reports if she does not comply or agree with the plan, notify spouse that an Adult Protective Services report will be made and she will be listed as the perpetrator. This worker thanks Amy for the information and will follow up.
--- NOTE | 2020-01-02 12:41 | NUR ---
CM/SS: Telephone call to [facility]. After being transferred three times. Able to speak with bed control [phone] - they report they have pt's information and that there are 2 to 3 ahead of pt for placement. They are unable to share if they have any pending dismissals today. This worker will follow up.
[2020-01-02 15:18] VITALS: BP 126/77
--- NOTE | 2020-01-02 15:38 | NUR ---
CM/SS: Visited with spouse as to next steps related to information being faxed to [facility]. Spouse reports that she has the form signed and she gives it to this worker. She reports that Dr Carpenter requested that she give me the form. This worker makes arrangements to have the form notarized. The form is notarized and faxed with the affidavit and the referral information. Telephone Call to [facility] - [phone] - Letting her know that the information has been faxed to her. She does request face sheet, med list, labs, and Covid testing. This information is faxed as well. [facility] is able to verify that they still have bed availability at their facility. This worker will follow up.
[2020-01-02] MEDS: OLANZapine 5 MG ODT (ZyPREXA ZYDIS) PO SCH (20:59)
[2020-01-03] VITALS: BP 132/79
[2020-01-03] MEDS: CYANOCOBALAMIN 1,000 MCG (VITAMIN B-12) TABLET PO SCH (06:37)
[2020-01-03] MEDS: HYDROcodone/APAP 5 MG/325 MG (LORTAB) TAB PO SCH ×3 (06:37→20:17)
[2020-01-03] MEDS: ADVAIR HFA 115/21 MCG INHALER 8 GM IH SCH ×2 (06:47→22:14)
[2020-01-03 08:00] VITALS: BP 129/76
[2020-01-03] MEDS: MEGESTROL 40 MG (MEGACE) TAB PO SCH ×2 (08:09→20:17)
[2020-01-03] MEDS: KCL 10 MEQ TAB (MICRO K) PO SCH ×2 (08:09→18:10)
[2020-01-03] MEDS: FAMOTIDINE 20 MG (PEPCID) TABLET PO SCH (08:09)
[2020-01-03] MEDS: TRIM/SULFAMETH 160/800 (SEPTRA DS) TAB PO SCH (08:09)
[2020-01-03] MEDS: LOSARTAN 25 MG (COZAAR) TAB PO SCH (08:10)
[2020-01-03] MEDS: FERROUS SULF 325 MG (IRON) TAB PO SCH (08:10)
[2020-01-03] MEDS: PANTOPRAZOLE 20 MG TABLET (PROTONIX) PO SCH (08:10)
[2020-01-03] MEDS: LACTOBACILLUS ACIDOPHILUS (PROBIOTIC) CAPSULE PO SCH ×3 (08:10→18:10)
[2020-01-03] MEDS: FOLIC ACID 1 MG TAB PO SCH (08:10)
--- NOTE | 2020-01-03 09:56 | Discharge Inst-Simple/Standard ---
Discharge Inst-Standard Reconcile Patient Problems Problems Reviewed?: Yes Patient Instructions/Follow Up Plan of Care/Instructions/FU: WILL NEED TO ESTABLISH WITH A PSYCHIATRIST AND CONTINUE CARE AT THE [facility] WITH HIS PHYSICIAN THERE UPON DISCHARGE FROM PSYCHIATRIC FACILITY Activity as Tolerated: Yes Discharge Diet: Regular Diet Health Concerns: ABDOMINAL WOUND MALNOURISHMENT FROM GASTROPARESIS AND MULTIPLE BOWEL SURGERIES DEMENTIA Return to The Hospital For: ANY CONCERN FOR WORSENING ILLNESS TITA LAINEZ MD Jan 03, 2020 09:56
--- NOTE | 2020-01-03 10:50 | NUR ---
CM/SS: [facility] has denied pt for placement. They are unable to meet his needs based on pt having a wound.
[2020-01-03] MEDS: DRONABINOL 2.5 MG (MARINOL) CAP PO SCH ×2 (12:00→18:10)
[2020-01-03] MEDS: ENOXAPARIN 30 MG/0.3 ML (LOVENOX) SYR SC SCH (12:00)
--- NOTE | 2020-01-03 12:32 | NUR ---
CM/SS: In communication with CNO Jose, SKILLED NURSING FACILITY COUNSELOR of Operations who have been in touch with [facility] ([facility]). It is likely that [facility] can take pt on today. This worker is awaiting notification on that. There was 2 -3 patients ahead of pt on yesterday. This worker will wait to hear as to if it will be today or next anticipated date for placement.
--- NOTE | 2020-01-03 12:39 | NUR ---
Cm/SS: Telephone Call to [facility] [phone] - spouse of pt needing to update her on the plan for pt. She does not answer and a text message is sent requesting that she call this worker as soon as possible.
--- NOTE | 2020-01-03 13:11 | NUR ---
CM/SS: Visited with spouse as to plan for pt related to placement at [place] [facility] in [place]. As this worker is talking with spouse, this worker is notified that pt tested COVID positive. This worker leaves the room to be fitted with full COVID PPE. This worker returns to the room in Full PPE. Talk with spouse as to the plan in trying to get pt placed in [place] [facility] and it is likely that he may be able to still be able to go. Spouse reports that certainly pt wont be able to leave now. This worker share that she is unsure at this time, he may be able to go. Spouse is reminded pt can not have any visitors due to pt being COVID positive, and that she is needing to leave. She reports that MICHELLE Andre has not notified her that she has to leave. She is asked who she has been around, she says no one as she has been at the hospital and busy. Reminded her of quarantine status and precautions. She is also reminded to answer her cell phone and or text messages when receives them, she verbalizes understanding. This worker will follow up.
--- NOTE | 2020-01-03 13:33 | NUR ---
CM/SS: Notified by FERNY Wilkes that [facility] is able to take pt in spite of the COVID positive status. This worker will follow up.
[2020-01-03 15:13] VITALS: BP 126/82
--- NOTE | 2020-01-03 15:59 | NUR ---
DISCHARGE PLAN: Patient is accepted to [facility] for psychiatric eval and medication adjustment. He However just tested positive for CV-19. They have agreed to still take him this Friday 01/05 if he is asymptomatic on that date. This RN has called and spoken to the Shift captain with [facility] out of courtesy to let them know of possible transfer and of the positive COVID19 results. I faxed to them the face sheet and the Non-Emergent Transport form
[2020-01-03] MEDS: OLANZapine 5 MG ODT (ZyPREXA ZYDIS) PO SCH (20:17)
[2020-01-04 00:15] VITALS: BP 136/78
[2020-01-04] MEDS: CYANOCOBALAMIN 1,000 MCG (VITAMIN B-12) TABLET PO SCH (06:29)
[2020-01-04] MEDS: HYDROcodone/APAP 10 MG/325 MG (LORTAB) TAB PO PRN ×2 (06:29→20:27)
[2020-01-04] MEDS: HYDROcodone/APAP 5 MG/325 MG (LORTAB) TAB PO SCH ×4 (06:32→22:38)
[2020-01-04 07:05] VITALS: BP 110/74
[2020-01-04] MEDS: ADVAIR HFA 115/21 MCG INHALER 8 GM IH SCH ×2 (07:30→22:34)
[2020-01-04] MEDS: FAMOTIDINE 20 MG (PEPCID) TABLET PO SCH (07:54)
[2020-01-04] MEDS: PANTOPRAZOLE 20 MG TABLET (PROTONIX) PO SCH (07:54)
[2020-01-04] MEDS: FERROUS SULF 325 MG (IRON) TAB PO SCH (07:54)
[2020-01-04] MEDS: LACTOBACILLUS ACIDOPHILUS (PROBIOTIC) CAPSULE PO SCH ×3 (07:54→17:11)
[2020-01-04] MEDS: MEGESTROL 40 MG (MEGACE) TAB PO SCH ×3 (07:55→22:37)
[2020-01-04] MEDS: LOSARTAN 25 MG (COZAAR) TAB PO SCH (07:55)
[2020-01-04] MEDS: FOLIC ACID 1 MG TAB PO SCH (07:55)
[2020-01-04] MEDS: KCL 10 MEQ TAB (MICRO K) PO SCH ×2 (07:55→17:11)
[2020-01-04] MEDS ORDERED: NS IV 500 ML 500 ML IV SCH (08:15)
[2020-01-04] MEDS: ENOXAPARIN 30 MG/0.3 ML (LOVENOX) SYR SC SCH (11:36)
[2020-01-04] MEDS: DRONABINOL 2.5 MG (MARINOL) CAP PO SCH ×2 (11:36→16:43)
[2020-01-04 12:00] VITALS: BP 118/68
[2020-01-04 15:55] VITALS: BP 100/75
--- NOTE | 2020-01-04 16:42 | Progress Note - Hospitalist ---
Subjective HPI/CC On Admission Date Seen by Provider: Jan 04, 2020 Time Seen by Provider: 10:35 Pt is a 74yoCM with a PMH of COPD, HTN, HLD, and recent abdominal surgery with slow recovery who was transfer up from IRU to 4th floor due to delirium. He underwent sigmoid colon resection years ago and then presented to this hospital a couple of months ago with SBO requiring ex lap and repeat resection. He has a slow recovery and was on swing bed status here before transferring to [place] and then to our IRU on 11/25. He had done well at first in IRU but over the past week had developed delirium and even aggressive behaviors with this. It had been arranged from him to go to [facility] for psych evaluation but family declined this. He was admitted to med/surg for continued management of his delirium as he was no long able to participate with therapy as needed. This morning he states he is feeling well and is up in his bed talking with the aide. No family at bedside at this time. When I walked in he stated "The things you see when you don't have a gun." When I asked what he meant he just laughed. Subjective/Events-last exam He is asleep and does not respond to questions. He appears comfortable. Objective Exam Vital Signs Vital Signs Date Time Temp Pulse Resp B/P (MAP) Pulse Ox O2 Delivery O2 Flow Rate FiO2 01/04/20 15:55 36.0 61 20 100/75 (83) 97 Room Air Capillary Refill : Less Than 3 SecondsLess Than 3 Seconds General Appearance: No Apparent Distress, Cachetic Respiratory: Lungs Clear, Normal Breath Sounds, No Respiratory Distress Cardiovascular: Regular Rate, Rhythm, No Edema, No Murmur Gastrointestinal: Normal Bowel Sounds, Soft Extremity: Normal Inspection, No Pedal Edema Neurologic/Psychiatric: Alert, Other (does not respond verbally to questions, opens eyes, uncooperative) Skin: Normal Color, Warm/Dry Results/Procedures Lab Patient resulted labs reviewed. Assessment/Plan Assessment and Plan Assess & Plan/Chief Complaint COVID-19 COVID PCR positive asymptomatic no treatment indicated at this time Continue to monitor Critical illness myopathy Severe protein calorie malnutrition Cachexia Dementia Continue Megace and Marinol Continue supportive care Small bowel resection Continue wound care Diarrhea Probiotics Urinary incontinence Supportive care Iron deficiency anemia improved Continue to monitor Transfuse for hemoglobin less than 7 DVT prophylaxis: Lovenox Diagnosis/Problems Diagnosis/Problems (1) COVID-19 Status: Acute (2) UTI (urinary tract infection) Status: Resolved Resolution Date/Time: 01/04/20 @ 16:45 (3) Urinary incontinence Status: Chronic (4) Diarrhea Status: Chronic Qualifiers: Diarrhea type: unspecified type Qualified Codes: R19.7 - Diarrhea, unspecified (5) Severe protein-calorie malnutrition Status: Acute (6) Cachexia Status: Acute (7) S/P small bowel resection Status: Chronic (8) Dementia Status: Chronic (9) Anemia Status: Chronic Clinical Quality Measures DVT/VTE Risk/Contraindication: Risk Factor Score Per Nursin RFS Level Per Nursing on Admit: 4+=Very High JENNIFER NEVILLE MD Jan 04, 2020 16:42
[2020-01-04] MEDS: LOPERAMIDE 2 MG (IMODIUM) TABLET PO PRN (20:26)
[2020-01-04] MEDS: OLANZapine 5 MG ODT (ZyPREXA ZYDIS) PO SCH ×2 (20:26→22:37)
--- NOTE | 2020-01-04 21:38 | NUR ---
THIS RN ACCIDENTLY PULLED LORTAB 10/325 INSTEAD OF 5/325 MG. MED WAS CRUSHED THEN THROWN AWAY IN SHARPS CONTAINER.
--- NOTE | 2020-01-04 21:48 | NUR ---
PT IS REFUSING TO TAKE MEDICATIONS TONIGHT. PT HITTING/SLAPPING AT STAFF AND ATTEMPTING TO CRAWL OUT OF BED. PT ALSO YELLED AT PCT, ANGEL, AND SAID 'GET OUT OF THIS ROOM' WHEN ANGEL WAS BY DOOR ENTERING ROOM AND HAD NOT TOUCHED HIM OR GONE NEAR HIM. THIS RN ATTEMPTED TWICE TWO GIVE PO MEDS APPROX 30 MINUTES BETWEEN ATTEMPTS AND HE STILL REFUSED. THIS RN CALLED GERONIMO HIS AND WE DISCUSSED DIFFERENT OPTIONS TO CALM HIM DOWN. SHE WAS VERY ADAMET THAT HE NEED TO TAKE HIS NIGHTLY HYDROCODONE AND THE DID NOT WANT GEODONE TO BE USED ON HIM. THE NURSE BOOK SHELVER INFORMED GERONIMO THAT GEODON AND HALDOL HAD BOTH BEEN DISCONTINUED. GERONIMO SAID SHE WAS NOT AWARE OF THIS BUT THAT SHE WAS OK WITH HALDOL BEING GIVEN TO HIM TO CALM HIM. SHE ASKED THAT I CALL PRINCIPAL TECHNOLOGIST TO SEE IF HE COULD HAVE IT. DR NEVILLE IS SEEING PT THIS WEEKEND AND THIS RN CALLED HIM AND LET HIM KNOW THE SITUATION. DR NEVILLE ORDERED HALDOL 2 MG IM Q4H PRN AGITATION. THIS NURSE BOOK SHELVER THEN CONTACTED GERONIMO AGAIN ON THE PHONE AND LET HER KNOW OF THIS NEW ORDER. GERONIMO WAS HAPPY WITH THIS ORDER AND THAT SHE WAS CONTACTED AGAIN BY NURSE TO KEEP HER UP TO DATE.
[2020-01-04] MEDS ORDERED: HALOPERIDOL 5 MG/ML (HALDOL) VIAL IM PRN (22:00)
[2020-01-05] MEDS: HYDROcodone/APAP 5 MG/325 MG (LORTAB) TAB PO SCH ×3 (06:02→21:45)
[2020-01-05] MEDS: CYANOCOBALAMIN 1,000 MCG (VITAMIN B-12) TABLET PO SCH (06:02)
--- NOTE | 2020-01-05 06:41 | NUR ---
PT SLEPT THRU MOST OF THE NIGHT. HE WAS AWAKE AT 0600 WHEN THIS NURSE IT SALES EXECUTIVE WENT INTO ROOM TO ADMIN MORNING MEDICATIONS. HE DID TAKE LORTAB 5/325 AND B-12 CRUSHED IN CHOCOLATE PUDDING, BUT IT DID TAKE NUMEROUS ATTEMPTS AND REASONING WITH PT FOR HIM TO FINALLY TAKE IT. HE DID REPORT HIS LEFT HIP HURT AND I TOLD HIM SEVERAL TIMES THAT THE PUDDING DID HAVE HIS PAIN PILL IN IT. AT ONE POINT PT DID THROW HIS HAND BACK TO ATTEMPT TO HIT RN, BUT STOPPED. PT IS NOW WATCHING TV. WILL CONTINUE TO MONITOR. HE CONTINUES TO HAVE A ONE ON ONE SITTER.
[2020-01-05] MEDS: ADVAIR HFA 115/21 MCG INHALER 8 GM IH SCH ×2 (06:50→21:28)
[2020-01-05 07:42] VITALS: BP 117/92
[2020-01-05] MEDS: MEGESTROL 40 MG (MEGACE) TAB PO SCH ×2 (09:16→21:45)
[2020-01-05] MEDS: PANTOPRAZOLE 20 MG TABLET (PROTONIX) PO SCH (09:16)
[2020-01-05] MEDS: LOSARTAN 25 MG (COZAAR) TAB PO SCH (09:16)
[2020-01-05] MEDS: LACTOBACILLUS ACIDOPHILUS (PROBIOTIC) CAPSULE PO SCH ×3 (09:17→17:27)
[2020-01-05] MEDS: FAMOTIDINE 20 MG (PEPCID) TABLET PO SCH (09:17)
[2020-01-05] MEDS: KCL 10 MEQ TAB (MICRO K) PO SCH ×2 (09:17→17:27)
[2020-01-05] MEDS: FOLIC ACID 1 MG TAB PO SCH (09:17)
[2020-01-05] MEDS: FERROUS SULF 325 MG (IRON) TAB PO SCH (09:17)
--- NOTE | 2020-01-05 12:14 | Progress Note - Hospitalist ---
Subjective HPI/CC On Admission Date Seen by Provider: Jan 05, 2020 Time Seen by Provider: 10:30 Pt is a 74yoCM with a PMH of COPD, HTN, HLD, and recent abdominal surgery with slow recovery who was transfer up from IRU to 4th floor due to delirium. He underwent sigmoid colon resection years ago and then presented to this hospital a couple of months ago with SBO requiring ex lap and repeat resection. He has a slow recovery and was on swing bed status here before transferring to [place] and then to our IRU on 11/25. He had done well at first in IRU but over the past week had developed delirium and even aggressive behaviors with this. It had been arranged from him to go to [facility] for psych evaluation but family declined this. He was admitted to med/surg for continued management of his delirium as he was no long able to participate with therapy as needed. This morning he states he is feeling well and is up in his bed talking with the aide. No family at bedside at this time. When I walked in he stated "The things you see when you don't have a gun." When I asked what he meant he just laughed. Subjective/Events-last exam He is awake but does not participate and is uncooperative. He is nonverbal. Objective Exam Vital Signs Vital Signs Date Time Temp Pulse Resp B/P (MAP) Pulse Ox O2 Delivery O2 Flow Rate FiO2 01/05/20 09:30 Room Air 01/05/20 07:42 36.1 94 16 117/92 (100) 98 01/05/20 00:02 2.00 Capillary Refill : Less Than 3 SecondsLess Than 3 Seconds General Appearance: No Apparent Distress, Chronically ill, Cachetic Respiratory: Lungs Clear, Normal Breath Sounds, No Respiratory Distress Cardiovascular: Regular Rate, Rhythm, No Edema, No Murmur Gastrointestinal: Normal Bowel Sounds, Soft Extremity: Normal Inspection, No Pedal Edema Neurologic/Psychiatric: Alert, Aphasia, Disoriented Skin: Normal Color, Warm/Dry Results/Procedures Lab Patient resulted labs reviewed. Assessment/Plan Assessment and Plan Assess & Plan/Chief Complaint COVID-19 COVID PCR positive asymptomatic 96% on room air during my exam no treatment indicated at this time Continue to monitor Critical illness myopathy Severe protein calorie malnutrition Cachexia Dementia Continue Megace and Marinol Continue supportive care Small bowel resection Continue wound care Diarrhea Probiotics Urinary incontinence Supportive care Iron deficiency anemia improved Continue to monitor Transfuse for hemoglobin less than 7 DVT prophylaxis: Lovenox Diagnosis/Problems Diagnosis/Problems (1) COVID-19 Status: Acute (2) UTI (urinary tract infection) Status: Resolved Resolution Date/Time: 01/04/20 @ 16:45 (3) Urinary incontinence Status: Chronic (4) Diarrhea Status: Chronic Qualifiers: Diarrhea type: unspecified type Qualified Codes: R19.7 - Diarrhea, unspecified (5) Severe protein-calorie malnutrition Status: Acute (6) Cachexia Status: Acute (7) S/P small bowel resection Status: Chronic (8) Dementia Status: Chronic (9) Anemia Status: Chronic Clinical Quality Measures DVT/VTE Risk/Contraindication: Risk Factor Score Per Nursin RFS Level Per Nursing on Admit: 4+=Very High JENNIFER NEVILLE MD Jan 05, 2020 12:14
[2020-01-05] MEDS: DRONABINOL 2.5 MG (MARINOL) CAP PO SCH ×2 (12:59→17:27)
[2020-01-05] MEDS: ENOXAPARIN 30 MG/0.3 ML (LOVENOX) SYR SC SCH (13:00)
[2020-01-05 15:29] VITALS: BP 104/86
--- NOTE | 2020-01-05 20:55 | NUR ---
RECEIVED CALL FROM GERONIMO, PATIENT'S . PASSWORD VERIFIED AND UPDATED HER ON PATIENT'S CONDITION. INFORMED HER THAT HE HAS BEEN COOPERATIVE THIS EVENING AND DID TAKE HIS PILLS WITHOUT ANY ISSUES. ALSO ANSWERED HER QUESTIONS REGARDING VITAL SIGNS BY INFORMING HER THAT HE HAS BEEN AFEBRILE, MAINTAINING O2 SATURATION AT 96% ON ROOM AIR AND BLOOD PRESSURE IS UNCHANGED. ASSURED HER THAT SHOULD ANY OF THIS CHANGE, SHE WILL BE NOTIFIED. WILL CONTINUE TO MONITOR.
[2020-01-05] MEDS: OLANZapine 5 MG ODT (ZyPREXA ZYDIS) PO SCH (21:45)
[2020-01-06] VITALS: BP 100/72
[2020-01-06] MEDS: CYANOCOBALAMIN 1,000 MCG (VITAMIN B-12) TABLET PO SCH (06:39)
[2020-01-06] MEDS: HYDROcodone/APAP 5 MG/325 MG (LORTAB) TAB PO SCH ×3 (06:40→20:28)
[2020-01-06 08:00] VITALS: BP 132/86
[2020-01-06] MEDS: FAMOTIDINE 20 MG (PEPCID) TABLET PO SCH (09:22)
[2020-01-06] MEDS: FOLIC ACID 1 MG TAB PO SCH (09:22)
[2020-01-06] MEDS: FERROUS SULF 325 MG (IRON) TAB PO SCH (09:22)
[2020-01-06] MEDS: PANTOPRAZOLE 20 MG TABLET (PROTONIX) PO SCH (09:23)
[2020-01-06] MEDS: MEGESTROL 40 MG (MEGACE) TAB PO SCH ×2 (09:23→20:27)
[2020-01-06] MEDS: KCL 10 MEQ TAB (MICRO K) PO SCH ×2 (09:23→18:42)
[2020-01-06] MEDS: LOSARTAN 25 MG (COZAAR) TAB PO SCH (09:23)
[2020-01-06] MEDS: LACTOBACILLUS ACIDOPHILUS (PROBIOTIC) CAPSULE PO SCH ×3 (09:24→18:42)
[2020-01-06] MEDS: ENOXAPARIN 30 MG/0.3 ML (LOVENOX) SYR SC SCH (13:10)
[2020-01-06] MEDS: DRONABINOL 2.5 MG (MARINOL) CAP PO SCH ×2 (13:10→16:33)
--- NOTE | 2020-01-06 15:45 | NUR ---
CM/SS: Telephone Call from [facility] -([facility]) [phone] They have indicated that they have a bed for pt today, just unsure of the time. The number for family to call once pt is there is [phone]. Physician is Dr. Chance Garcia.
--- NOTE | 2020-01-06 15:48 | NUR ---
CM/SS: Telephone call to spouse Colette [phone] to update her on pt being moved to the [facility] some time today. Time to be determined. She is ok with that plan. She is given the phone number to the [facility] - [phone]. She has requested that the nurse tell pt he is moving to another hospital in [place] and that she will call when he is settled. This information is passed along to MICHELLE Lopez. Pt will go non emergent EMS and the paperwork is with pt's chart on the floor. This worker will follow up.
[2020-01-06] MEDS: HYDROcodone/APAP 10 MG/325 MG (LORTAB) TAB PO PRN (16:32)
[2020-01-06 17:00] VITALS: BP 138/91
[2020-01-06] MEDS: ADVAIR HFA 115/21 MCG INHALER 8 GM IH SCH ×2 (17:13→21:31)
[2020-01-06] MEDS: OLANZapine 5 MG ODT (ZyPREXA ZYDIS) PO SCH (20:27)
--- NOTE | 2020-01-06 21:46 | NUR ---
[facility] AT [phone] TO GET UPDATE ON PT TRANSFER. CYNTHIA ANSWERED THE PHONE TO UNIT AND TOOK MY NUMBER [phone]. CYNTHIA TOLD THIS NURSE BICYCLE MECHANIC THAT THEY WERE DURING SHIFT CHANGE AND WOULD HAVE CHARGE NURSE CALL ME.
--- NOTE | 2020-01-06 22:57 | NUR ---
EFRAIN FROM [facility] CALLED THIS RN WITH ROOM NUMBER [phone] FOR PT AT [id number]. THIS RN LET MUSIC THERAPY TEACHER, KARLY, KNOW THEN CALLED [facility] AND SPOKE TO ELDER. HE SAID HE HAD A CREW GOING TO AT THIS TIME AND WOULD NOT BE ABLE TO TRANSFER PT UNTIL AM. THIS RN CALLED [facility] AND LEFT MESSAGE FOR THEM TO CALL ME ELAINE RE TRANSFER. I ALSO CALLED [facility] AND SPOKE TO MONIQUE WHO SAID THEY WERE UNABLE TO DO TRANSFER TONIGHT. I CALLED EFRAIN AT [facility] BACK TO MAKE SURE THEY WOULD HOLD HIS BED UNTIL THE TOMORROW MORNING. EFRAIN SAID THAT BED IS HIS AND THEY WOULD HOLD IT. [facility] CONTACTED ONCE AGAIN BY THIS NURSE AND SPOKE TO ELDER WHO SAID THAT WE NEEDED TO CALL DISPATCH AROUND [id number] TOMORROW AND THEY WOULD DO TRANSFER. BILINGUAL HR GENERALIST NOTIFIED AND 4TH FREIGHT SERVICE INSPECTOR NOTIFIED. THIS RN WILL CONTACT AND NURSE IN [facility]
--- NOTE | 2020-01-06 23:08 | NUR ---
GERONIMO NOTIFIED OF AM TRANSFER OF PT WELL BOWLING BALL ASSEMBLER, KARLY. I ALSO CALLED EFRAIN AT [facility] AT [phone] AND LET HIM KNOW WELL AND HE SAID THE BED WOULD BE HELD FOR HIM. I ATTEMPTED TO CALL NURSES PHONE NUMBER THAT WILL BE TAKING OVER CARE OF SOLITARIO, 3 TIMES AND THERE WAS NO ANSWER, . EFRAIN WAS TOLD BY THIS RN THAT AM SHIFT RN WILL CALL WITH REPORT TOMORROW AFTER HE LEAVES. GERONIMO TOLD THIS RN SHE WAS GLAD THEY WERE WAITING TILL MORNING FOR HIM TO LEAVE.
[2020-01-07 00:22] VITALS: BP 142/79
--- NOTE | 2020-01-07 02:17 | NUR ---
AT MIDNIGHT VITALS ONE ON ONE PCT, JULIO, REPORTED TO THIS RN THAT PT 02 SATS WERE 80% ON RA. RN AND PCT WENT IN ROOM TOGETHER AND REPOSITIONED HIM AND SATS CONTINUED TO BE IN 80'S. PTS HANDS ARE COLD AND DIFFICULT TO GET 02 SATS ON CERTAIN VS MACHINES. DR DONAHUE NOTIFIED AND GAVE ORDER FOR 02 FOR SATS TO STAY ABOVE 90% AND FOR RT TO ASSESS. PT IS CURRENTLY ON 5 L 02 NC. RT WILL NOTIFIED AND WENT TO ASSESS HIM AND PUT HIM ON HIGH FLOW BUT PT WAS RESTING AND CONTENT AT THE TIME AND RT DID NOT WANT TO UPSET HIM. PT REMAINS ONE ON ONE AND WITH MICHAEL KIM AND PT IS KEEPING NC IN PLACE AT THIS TIME. WILL CONTINUE TO MONITOR.
[2020-01-07] MEDS: HYDROcodone/APAP 10 MG/325 MG (LORTAB) TAB PO PRN ×2 (07:26→07:27)
[2020-01-07] MEDS: HYDROcodone/APAP 5 MG/325 MG (LORTAB) TAB PO SCH (07:27)
[2020-01-07] MEDS: CYANOCOBALAMIN 1,000 MCG (VITAMIN B-12) TABLET PO SCH (07:28)
--- NOTE | 2020-01-07 07:35 | NUR ---
THIS RN ADMIN LORTAB 10/325 MG THIS AM AND NON ADMIN LORTAB 5/325 D/T THIS UPCOMING TRANSFER THIS MORNING. HAS TOLD THIS RN HE TAKES 10/325 AT HOME AND HE IS IN CONSTANT PAIN. HE DID TAKE THE PILL CRUSHED IN CHOCOLATE PUDDING. MEDICAL OR SURGICAL INSTRUMENT MAKER DEIRDRE TOLD THIS RN'S DESK ATTENDANT THAT SHE WOULD BE CALLING DISPATCH THIS MORNING AT 0730 TO HAVE PT TRANSFERRED TO [facility] IN [place]. PT'S BELONGINGS ARE PACKED AND HIS IPHONE IS SETTING OUT BY HIS BAGS ON THE COUNTER NEAR THE DOOR. THIS RN GAVE REPORT TO HARRIET ZAMORA RN WITH A LIST OF NUMBERS TO NURSE IN [facility] TO GIVE REPORT TO ALONG WITH EFRAIN'S NUMBER WHO IS IN CHARGE OF BED PLACEMENT AND MARIA DEL CARMEN NUMBER TO CALL WHEN PT LEAVES. HE IS CURRENTLY IN LAYING IN BED WITH 5L NC WITH HEAD OF BED ELEVATED.
[2020-01-07 08:09] VITALS: BP 145/95
[2020-01-07] MEDS: MEGESTROL 40 MG (MEGACE) TAB PO SCH (08:24)
[2020-01-07] MEDS: LOSARTAN 25 MG (COZAAR) TAB PO SCH (08:24)
[2020-01-07] MEDS: FERROUS SULF 325 MG (IRON) TAB PO SCH (08:24)
[2020-01-07] MEDS: FOLIC ACID 1 MG TAB PO SCH (08:24)
[2020-01-07] MEDS: LACTOBACILLUS ACIDOPHILUS (PROBIOTIC) CAPSULE PO SCH (08:24)
[2020-01-07] MEDS: PANTOPRAZOLE 20 MG TABLET (PROTONIX) PO SCH (08:24)
[2020-01-07] MEDS: FAMOTIDINE 20 MG (PEPCID) TABLET PO SCH (08:24)
[2020-01-07] MEDS: KCL 10 MEQ TAB (MICRO K) PO SCH (08:24)
--- NOTE | 2020-01-07 09:52 | NUR ---
CM/SS: Pt was unable to discharge on last night due to EMS being unable to transfer pt. Call to May at [facility] [phone]. Confirming that pt still has a bed there this morning. EMS does arrive and is able to transport pt to [facility]. MICHELLE Pedersen to notify spouse that pt is en route to the hospital when EMS arrives to take pt.
== END 2020-01-07 09:15 | DRG 689 ==
LOC: 4TH 16:08 → EDPENDDISDT 12-18 09:33 → EDPENDDISTM 12-18 09:33 → 4TH 12-21 → EDPENDDISTM 12-27 10:30 → EDPENDDISDT 12-27 10:30 → 4TH 01-03 14:14 → EDPENDDISDT 01-03 14:30 → EDPENDDISTM 01-03 14:30
PROVIDERS: ADMIT Family Medicine; ATTEND Family Medicine
DX: N39.0 Urinary tract infection, site not specified (principal); U07.1 COVID-19; E43 Unspecified severe protein-calorie malnutrition; G72.81 Critical illness myopathy; Z68.1 Body mass index [BMI] 19.9 or less, adult; F03.91 Unspecified dementia, unspecified severity, with behavioral disturbance; B96.1 Klebsiella pneumoniae [K. pneumoniae] as the cause of diseases classified elsewhere; R41.0 Disorientation, unspecified; R63.0 Anorexia; R15.9 Full incontinence of feces; N40.1 Benign prostatic hyperplasia with lower urinary tract symptoms; R32 Unspecified urinary incontinence; R19.7 Diarrhea, unspecified; D50.0 Iron deficiency anemia secondary to blood loss (chronic); J44.9 Chronic obstructive pulmonary disease, unspecified; I10 Essential (primary) hypertension; E78.00 Pure hypercholesterolemia, unspecified; E78.5 Hyperlipidemia, unspecified; J30.2 Other seasonal allergic rhinitis; K21.9 Gastro-esophageal reflux disease without esophagitis; M19.91 Primary osteoarthritis, unspecified site; F41.9 Anxiety disorder, unspecified; F32.9 Major depressive disorder, single episode, unspecified; F43.10 Post-traumatic stress disorder, unspecified; Z87.891 Personal history of nicotine dependence; Z90.49 Acquired absence of other specified parts of digestive tract
CPT/HCPCS: 36415; 71045; 80048; 80053; 80202; 81000; 82728; 83540; 83735; 84100; 84134; 84478; 85007; 85025; 85027; 87077; 87088; 87186; 87635; 90662; 94640; 94760